=== PATIENT | female | born 1970 | race Caucasian/White ===

== ENCOUNTER 2017-07-28 11:43 | Emergency (ER) | payer OTHER ==
[2017-07-28] MEDS ORDERED: ONDANSETRON 4 MG/2 ML VIAL ONE ×2 (13:37→15:56)
[2017-07-28] MEDS ORDERED: IPRATROPIUM BROM 0.5MG/2.5ML ONE ×2 (13:37→15:56)
[2017-07-28] MEDS ORDERED: ALBUTEROL 2.5 MG/3 ML NEB SOL ONE ×2 (13:37→15:56)
[2017-07-28] MEDS ORDERED: NA CHLORIDE 0.9% 500 ML ONE (13:38)
[2017-07-28] MEDS ORDERED: FENTANYL CITR 100 MCG/2 ML ONE ×2 (14:24→15:58)
[2017-07-28 14:29] LABS: Absolute Lymphocytes (CBC) 1.7 K/uL (0.7-4.9); Absolute Monocytes 0.2 K/uL (0.1-1.3); Absolute Neutrophil 4.6 K/uL (1.8-8.0); Basophils % 0.8 % (0-1.3); Eosinophils % 3.8 % (0-4.4); Hematocrit 40.5 % (36.0-45.0); Lymphocytes % 24.8 % (15.3-44.8); MCH 29.4 pg (27.0-35.0); MPV 8.7 fL (7.6-11.3); Monocytes % 3.6 % (3.3-12.3); RBC Red Blood Cell Count 4.41 M/uL (3.86-4.86)
[2017-07-28 14:30] LABS: Potassium 3.9 mEq/L (3.6-5.0)
[2017-07-28 14:33] LABS: Magnesium 1.9 mg/dL (1.8-2.5)
--- NOTE | 2017-07-28 14:34 | RAD REPORT ---
EXAM DESCRIPTION: Andriy Single View07/28/2017 2:20 pm CLINICAL HISTORY: Cough COMPARISON: July 03 FINDINGS: A small to moderate hiatal hernia is present. The lungs appear clear of acute infiltrate. The heart is borderline enlarged IMPRESSION: No acute abnormalities displayed
[2017-07-28 14:37] LABS: Urine Blood NEGATIVE (NEG); Urine Glucose NEGATIVE (NEG); Urine Protein NEGATIVE (NEG); Urine Specific Gravity 1.015 (1.005-1.030); Urine pH 8.5 (5.0-7.0)
[2017-07-28 14:41] LABS: CKMB Creatine Kinase MB 1.3 ng/ml (0.3-4.0)
--- NOTE | 2017-07-28 15:21 | EKG ---
Test Date: 2017-07-28 Test Time: 12:06:43 Strainer Cleaner: ALFRED MEASUREMENT RESULTS: Intervals: Rate: 78 SD: 168 QRSD: 86 QT: 392 QTc: 446 [place]: P: 29 SD: 168 QRS: 6 T: 38 INTERPRETIVE STATEMENTS: Normal sinus rhythm normal ECG Compared to ECG 07/03/2017 21:17:11 Sinus bradycardia no longer present Electronically Signed On 07-28-17 15:21:05 CDT by Dwayne Thomas
--- NOTE | 2017-07-28 15:38 | ER ---
Nurse's Notes [facility] Name: Oleg Rosenberg Age: 47 yrs Sex: Female : 1970 Arrival Date: 07/28/2017 Time: 11:44 Bed 27 Private MD: Diagnosis: Unspecified asthma with (acute) exacerbation;Bronchitis, not specified as acute or chronic Presentation: 07/28 11:47 Presenting complaint: Patient states: SOB, productive cough with greenish sputum, pain hb with cough x 2 days. Transition of care: patient was not received from another setting of care. Onset of symptoms was July 27, 2017. Care prior to arrival: None. 11:47 Method Of Arrival: Ambulatory hb 11:47 Acuity: AAYUSH 3 hb Triage Assessment: 11:51 General: Appears in no apparent distress. Behavior is calm, cooperative. Pain: Pain hb currently is 5 out of 10 on a pain scale. Neuro: Level of Consciousness is awake, alert, obeys commands, Oriented to person, place, time, situation. Cardiovascular: Capillary refill < 3 seconds Patient's skin is warm and dry. Respiratory: Airway is patent Respiratory effort is even, mildly labored Respiratory pattern is regular, symmetrical. 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 LMP N/A - Hysterectomy lk1 Historical: - Allergies: 11:50 Aspirin; hb 11:50 Dilaudid; hb 11:50 Iodinated Contrast Media - IV Dye; hb 11:50 Iodine; hb 11:50 Morphine; hb 11:50 Mucinex; hb 11:50 NSAIDS; hb 11:50 PENICILLINS; hb 11:50 Demerol; hb - Home Meds: 11:50 albuterol sulfate 2.5 mg /3 mL (0.083 %) Inhl nebu 3 mL 4 times per day [Active]; hb Ambien 10 mg Oral tab nightly for Sleep-Onset Insomnia [Active]; Breo Ellipta 100-25 mcg/dose inhalation dsdv 1 puff once daily [Active]; diazepam 10 mg Oral tab 1 tab 4 times per day [Active]; Equetro 300 mg Oral CM12 1 cap 2 times per day [Active]; ProAir HFA 90 mcg/actuation inhalation HFAA 1 puff every 4-6 hours [Active]; Risperdal 2 mg Oral tab once daily [Active]; Xopenex Inhl [Active]; - PMHx: 11:50 Asthma; Depression; Bipolar disorder; kidney cancer; Bronchitis; hb - PSHx: 11:50 nephrectomy; Hysterectomy; lap bad followed by removal; left shoulder; hb - Immunization history:: Adult Immunizations up to date. - Social history:: Smoking status: Patient uses tobacco products, smokes one-half pack cigarettes per day. Screenin:35 Abuse screen: Denies threats or abuse. Denies injuries from another. Nutritional lk1 screening: No deficits noted. Tuberculosis screening: No symptoms or risk factors identified. Fall Risk Total Mark Fall Scale indicates High Risk Score (45 or more points). Fall prevention measures have been instituted. Side Rails Up X 2 Placed Close to Nursing Station Frequent Obs/Assessments Occuring As available patient and family educated on Fall Prevention Program and Strategies. Assessment: 13:00 General: Appears in no apparent distress. Behavior is calm, cooperative, appropriate lk1 for age. Pain: Complains of pain in chest Pain currently is 6 out of 10 on a pain scale. Pain: Aggravated by coughing. Neuro: Level of Consciousness is awake, alert, obeys commands, Oriented to person, place, time, situation, Moves all extremities. Full function Gait is steady, Speech is normal, Facial symmetry appears normal. Cardiovascular: Heart tones S1 S2 present Capillary refill < 3 seconds Patient's skin is warm and dry. Respiratory: Airway is patent Respiratory effort is even, unlabored, Respiratory pattern is symmetrical, tachypnea Breath sounds with wheezes in right upper lobe, left upper lobe, right middle lobe and left lower lobe. GI: Abdomen is non-distended, obese. EENT: No signs and/or symptoms were reported regarding the EENT system. 13:45 Reassessment: Patient states feeling better. Patient states symptoms have improved. lk1 Respiratory: Airway is patent Respiratory effort is even, unlabored, Respiratory pattern is regular, symmetrical, Breath sounds are clear bilaterally. 14:10 Reassessment: Patient to 97-100% nebulizer treatment and back to 88-92%. Patient states lk1 she wears home O2 \T\ 4lpm NC at home. Patient placed on O2 now. 14:45 Respiratory: Breath sounds with wheezes in right upper lobe and left upper lobe. lk1 15:40 Reassessment: Patient states feeling better. Patient states symptoms have improved. lk1 Respiratory: Airway is patent Respiratory effort is even, unlabored, Respiratory pattern is regular, symmetrical, Breath sounds are clear bilaterally. Vital Signs: 11:50 BP 144 / 96; Pulse 82; Resp 20; Temp 97.7; Pulse Ox 95% on R/A; Weight 170.55 kg (R); hb Height 5 ft. 3 in. (160.02 cm); Pain 5/10; 13:00 BP 128 / 78; Pulse 73; Resp 24; Pulse Ox 92% on R/A; lk1 13:45 BP 111 / 58; Pulse 78; Resp 18; Pulse Ox 91% on R/A; lk1 14:30 BP 107 / 78; Pulse 81; Resp 20; Pulse Ox 96% on 3 lpm NC; lk1 15:30 BP 126 / 84; Pulse 71; Resp 18; Pulse Ox 98% on Nebulizer Mask; lk1 11:50 Body Mass Index 66.60 (170.55 kg, 160.02 cm) hb ED Course: 11:44 Patient arrived in ED. as 11:48 Triage completed. hb 11:51 Arm band placed on right wrist. hb 11:52 Patient placed in waiting room, in a wheelchair, Patient notified of wait time. hb 11:56 Patient EKG ordered from triage. hb 12:07 EKG completed in triage. Results shown to MD. hb 12:16 EKG done, by audio visual tech. reviewed by Abhi Mccall MD. at1 12:49 Lisa Auguste FNP-C is [facility]. kb 12:50 Abhi Mccall MD is Attending Physician. kb 13:00 Patient has correct armband on for positive identification. Bed in low position. Call lk1 light in reach. Adult w/ patient. 13:16 Rosanna Bello, RN is Primary Nurse. lk1 13:50 Missed attempt(s): 22 gauge in right antecubital area. Bleeding controlled, band aid dh3 applied, catheter tip intact. 13:55 Inserted saline lock: 22 gauge in left antecubital area, using aseptic technique. Blood lk1 collected. 13:56 Urine collected: clean catch specimen, clear. dh3 14:00 Oxygen administration via nasal cannula \T\ 3L/min Response to oxygen therapy: symptoms lk1 improved. 14:17 X-ray completed. Portable x-ray completed in exam room. Patient tolerated procedure ml well. 14:18 Chest Single View In Process Unspecified. EDMS 16:08 No provider procedures requiring assistance completed. IV discontinued, No lk1 redness/swelling at site. Administered Medications: 13:20 Drug: DuoNeb (3:1) (2.5 mg - 0.5 mg) 3 ml Route: Nebulizer; lk1 13:45 Follow up: Response: No adverse reaction; Marked relief of symptoms; Wheezing diminishedlk1 13:55 Drug: Zofran 4 mg Route: IVP; Site: left antecubital; lk1 14:15 Follow up: Response: No adverse reaction; Marked relief of symptoms; Nausea is decreasedlk1 13:55 Drug: NS 0.9% 500 ml Route: IV; Rate: bolus; Site: left antecubital; lk1 14:30 Follow up: Response: No adverse reaction; IV Status: Completed infusion lk1 14:00 Drug: fentaNYL (PF) 25 mcg Route: IVP; Site: left antecubital; lk1 14:15 Follow up: Response: No adverse reaction; Pain is decreased lk1 15:41 Drug: Zofran 4 mg Route: IVP; Site: left antecubital; lk1 16:00 Follow up: Response: No adverse reaction; Nausea is decreased lk1 15:42 Drug: SOLU-Medrol 125 mg Route: IVP; Site: left antecubital; lk1 16:00 Follow up: Response: No adverse reaction lk1 15:43 Drug: fentaNYL (PF) 25 mcg Route: IVP; Site: left antecubital; lk1 16:00 Follow up: Response: No adverse reaction; Marked relief of symptoms; Pain is decreased lk1 15:45 Drug: DuoNeb (3:1) (2.5 mg - 0.5 mg) 3 ml Route: Nebulizer; lk1 16:15 Follow up: Response: No adverse reaction; Marked relief of symptoms; Wheezing diminishedlk1 Outcome: 15:38 Discharge ordered by . raya 16:10 Discharged to home ambulatory. lk1 16:10 Condition: good 16:10 Discharge instructions given to patient, Instructed on discharge instructions, follow up and referral plans. medication usage, safety practices, Demonstrated understanding of instructions, follow-up care, medications, Prescriptions given X 1. 16:49 Patient left the ED. lk1 Signatures: Dispatcher [employer] EDMS Lisa Auguste, HAND PRINTED CIRCUIT BOARD ASSEMBLER-C HAND PRINTED CIRCUIT BOARD ASSEMBLER-Ckb Claire Velasquez as Davion, Vero Lynn victor, weasand trimmer EKG Tat1 Rosanna Bello RN RN lk1 Clarita Foreman RN RN Hemanth, Paula 3 Corrections: (The following items were deleted from the chart) 12: 11:50 Social history: Smoking status: Patient uses tobacco products, denies chronic hb smoking, but will smoke occasionally, hb 12: 11:51 Respiratory: Airway is patent Respiratory effort is even, mildly labored hb Respiratory pattern is regular, symmetrical, hb
--- NOTE | 2017-07-28 15:39 | EDPHYS ---
Physician Documentation [facility] Name: Oleg Rosenberg Age: 47 yrs Sex: Female : 1970 Arrival Date: 07/28/2017 Time: 11:44 Bed 27 Private MD: Abhi Tucker HPI: 07/28 13:14 This 47 yrs old Female presents to ER via Ambulatory with complaints of kb Asthma Exacerbation. 13:14 The patient has shortness of breath at rest. Onset: The symptoms/episode began/occurred kb 3 day(s) ago. Duration: The symptoms are continuous. The patient's shortness of breath is aggravated by exertion, anxiety. Associated signs and symptoms: Pertinent positives: non-productive cough, vomiting. Severity of symptoms: At their worst the symptoms were moderate in the emergency department the symptoms are unchanged. The patient has experienced similar episodes in the past. The patient has been recently seen by a physician: a psychiatrist, earlier today, anxiety. Pt c/o shortness of breath, wheezing, cough, and anxiety for 3 days. Reports nausea and vomiting for a month. . 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 LMP N/A - Hysterectomy lk1 Historical: - Allergies: 11:50 Aspirin; hb 11:50 Dilaudid; hb 11:50 Iodinated Contrast Media - IV Dye; hb 11:50 Iodine; hb 11:50 Morphine; hb 11:50 Mucinex; hb 11:50 NSAIDS; hb 11:50 PENICILLINS; hb 11:50 Demerol; hb - Home Meds: 11:50 albuterol sulfate 2.5 mg /3 mL (0.083 %) Inhl nebu 3 mL 4 times per day [Active]; hb Ambien 10 mg Oral tab nightly for Sleep-Onset Insomnia [Active]; Breo Ellipta 100-25 mcg/dose inhalation dsdv 1 puff once daily [Active]; diazepam 10 mg Oral tab 1 tab 4 times per day [Active]; Equetro 300 mg Oral CM12 1 cap 2 times per day [Active]; ProAir HFA 90 mcg/actuation inhalation HFAA 1 puff every 4-6 hours [Active]; Risperdal 2 mg Oral tab once daily [Active]; Xopenex Inhl [Active]; - PMHx: 11:50 Asthma; Depression; Bipolar disorder; kidney cancer; Bronchitis; hb - PSHx: 11:50 nephrectomy; Hysterectomy; lap bad followed by removal; left shoulder; hb - Immunization history:: Adult Immunizations up to date. - Social history:: Smoking status: Patient uses tobacco products, smokes one-half pack cigarettes per day. ROS: 13:16 Constitutional: Negative for fever, chills, and weight loss, ENT: Negative for injury, kb pain, and discharge, Neck: Negative for injury, pain, and swelling, Cardiovascular: Negative for chest pain, palpitations, and edema, Back: Negative for injury and pain, : Negative for injury, bleeding, discharge, and swelling, MS/Extremity: Negative for injury and deformity, Skin: Negative for injury, rash, and discoloration, Neuro: Negative for headache, weakness, numbness, tingling, and seizure. 13:16 Respiratory: Positive for cough, with no reported sputum, shortness of breath, wheezing, Negative for dyspnea on exertion, hemoptysis, orthopnea, pleurisy. 13:16 Abdomen/GI: Positive for nausea and vomiting, Negative for abdominal pain, diarrhea, constipation, abdominal cramps, abdominal distension, anorexia. Exam: 13:16 Constitutional: This is a well developed, well nourished patient who is awake, alert, kb and in no acute distress. Head/Face: Normocephalic, atraumatic. Chest/axilla: Normal chest wall appearance and motion. Nontender with no deformity. No lesions are appreciated. Cardiovascular: Regular rate and rhythm with a normal S1 and S2. No gallops, murmurs, or rubs. Normal PMI, no JVD. No pulse deficits. Abdomen/GI: Soft, non-tender, with normal bowel sounds. No distension or tympany. No guarding or rebound. No evidence of tenderness throughout. Skin: Warm, dry with normal turgor. Normal color with no rashes, no lesions, and no evidence of cellulitis. MS/ Extremity: Pulses equal, no cyanosis. Neurovascular intact. Full, normal range of motion. Neuro: Awake and alert, GCS 15, oriented to person, place, time, and situation. Cranial nerves II-XII grossly intact. Motor strength 5/5 in all extremities. Sensory grossly intact. Cerebellar exam normal. Normal gait. 13:16 Respiratory: the patient does not display signs of respiratory distress, Respirations: normal, Breath sounds: rhonchi, that are mild, that are moderate, are scattered, wheezing: expiratory that is moderate, is heard diffusely. Vital Signs: 11:50 BP 144 / 96; Pulse 82; Resp 20; Temp 97.7; Pulse Ox 95% on R/A; Weight 170.55 kg (R); hb Height 5 ft. 3 in. (160.02 cm); Pain 5/10; 13:00 BP 128 / 78; Pulse 73; Resp 24; Pulse Ox 92% on R/A; lk1 13:45 BP 111 / 58; Pulse 78; Resp 18; Pulse Ox 91% on R/A; lk1 14:30 BP 107 / 78; Pulse 81; Resp 20; Pulse Ox 96% on 3 lpm NC; lk1 15:30 BP 126 / 84; Pulse 71; Resp 18; Pulse Ox 98% on Nebulizer Mask; lk1 11:50 Body Mass Index 66.60 (170.55 kg, 160.02 cm) hb MDM: 12:50 Patient medically screened. kb 13:17 Data reviewed: vital signs, nurses notes. Data interpreted: Pulse oximetry: on room air kb is 95 %. Interpretation: normal. 15:37 Counseling: I had a detailed discussion with the patient and/or guardian regarding: the kb historical points, exam findings, and any diagnostic results supporting the discharge/admit diagnosis, lab results, radiology results, the need for outpatient follow up, a family practitioner, to return to the emergency department if symptoms worsen or persist or if there are any questions or concerns that arise at home. 07/28 14:03 Order name: Basic Metabolic Panel; Complete Time: 14:47 EDMS 07/28 14:03 Order name: BNP B-Type Natriuretic Peptide; Complete Time: 14:47 EDMS 07/28 14:03 Order name: CBC with Automated Diff; Complete Time: 14:38 EDMS 07/28 14:03 Order name: CKMB Creatine Kinase MB; Complete Time: 14:47 EDMS 07/28 14:03 Order name: Creatine Phosphokinase; Complete Time: 14:47 EDMS 07/28 14:03 Order name: Magnesium; Complete Time: 14:47 EDMS 07/28 14:03 Order name: Troponin (Emerg Dept Use Only); Complete Time: 14:38 EDMS 07/28 11:57 Order name: EKG - Nurse/Tech; Complete Time: 12:07 hb 07/28 11:57 Order name: EKG; Complete Time: 11:58 hb 07/28 13:12 Order name: Cardiac monitoring; Complete Time: 13:32 kb 07/28 13:12 Order name: IV Saline Lock; Complete Time: 16:16 kb 07/28 14:05 Order name: Chest Single View; Complete Time: 14:38 EDMS 07/28 14:14 Order name: Urine Dipstick-Ancillary; Complete Time: 14:38 EDMS 07/28 14:14 Order name: Urine --Ancillary; Complete Time: 14:38 EDMS 07/28 13:12 Order name: Labs collected and sent; Complete Time: 16:16 kb 07/28 13:12 Order name: O2 Per Protocol; Complete Time: 13:57 kb 07/28 13:12 Order name: O2 Sat Monitoring; Complete Time: 13:58 kb 07/28 13:12 Order name: Urine Dipstick-Ancillary (obtain specimen); Complete Time: 13:57 kb Administered Medications: 13:20 Drug: DuoNeb (3:1) (2.5 mg - 0.5 mg) 3 ml Route: Nebulizer; lk1 13:45 Follow up: Response: No adverse reaction; Marked relief of symptoms; Wheezing diminishedlk1 13:55 Drug: Zofran 4 mg Route: IVP; Site: left antecubital; lk1 14:15 Follow up: Response: No adverse reaction; Marked relief of symptoms; Nausea is decreasedlk1 13:55 Drug: NS 0.9% 500 ml Route: IV; Rate: bolus; Site: left antecubital; lk1 14:30 Follow up: Response: No adverse reaction; IV Status: Completed infusion lk1 14:00 Drug: fentaNYL (PF) 25 mcg Route: IVP; Site: left antecubital; lk1 14:15 Follow up: Response: No adverse reaction; Pain is decreased lk1 15:41 Drug: Zofran 4 mg Route: IVP; Site: left antecubital; lk1 16:00 Follow up: Response: No adverse reaction; Nausea is decreased lk1 15:42 Drug: SOLU-Medrol 125 mg Route: IVP; Site: left antecubital; lk1 16:00 Follow up: Response: No adverse reaction lk1 15:43 Drug: fentaNYL (PF) 25 mcg Route: IVP; Site: left antecubital; lk1 16:00 Follow up: Response: No adverse reaction; Marked relief of symptoms; Pain is decreased lk1 15:45 Drug: DuoNeb (3:1) (2.5 mg - 0.5 mg) 3 ml Route: Nebulizer; lk1 16:15 Follow up: Response: No adverse reaction; Marked relief of symptoms; Wheezing diminishedlk1 Disposition: 07/29 06:53 Co-signature as Attending Physician, Abhi Mccall MD I agree with the assessment and marnie plan of care. PA/CASE ASSEMBLER's history reviewed, patient interviewed, and examined. Disposition: 07/28/17 15:38 Discharged to Home. Impression: Unspecified asthma with (acute) exacerbation, Bronchitis, not specified as acute or chronic. - Condition is Stable. - Discharge Instructions: Acute Bronchitis, [id number], Asthma, Adult, [id number]. - Prescriptions for Prednisone 20 mg Oral Tablet - take 1 tablet by ORAL route once daily for 5 days; 5 tablet. - Medication Reconciliation Form, Thank You Letter, Antibiotic Education, Prescription Opioid Use form. - Follow up: Emergency Department; When: As needed; Reason: Worsening of condition. Follow up: Private Physician; When: 2 - 3 days; Reason: Recheck today's complaints, Continuance of care, Re-evaluation by your physician. Signatures: Dispatcher [employer] EDLisa Balbuena, AUTOMOBILE PARKER-C NEGRO-Abhi Horvath MD MD cha Kluge, Leah RN RN lk1 Clarita Foreman RN RN hb Corrections: (The following items were deleted from the chart) 07/28 12:06 11:50 Social history: Smoking status: Patient uses tobacco products, denies chronic hb smoking, but will smoke occasionally, hb 16:07 16:03 Chest Pa And Lat (2 Views)+RAD.RAD.BRZ ordered. EDMS EDMS 16:19 16:03 BASIC METABOLIC PANEL+C.LAB.BRZ ordered. EDMS EDMS 16:19 16:03 CBC+H.LAB.BRZ ordered. EDMS EDMS 16:19 16:03 CKMB+C.LAB.BRZ ordered. EDMS EDMS 16:19 16:03 CREATINE PHOSPHOKINASE+C.LAB.BRZ ordered. EDMS EDMS 16: 16:03 MAGNESIUM+C.LAB.BRZ ordered. EDMS EDMS 16: 16:03 BNP+C.LAB.BRZ ordered. EDMS EDMS 16: 16:03 TROPONIN (EMERG DEPT USE ONLY)+C.LAB.BRZ ordered. EDMS EDMS
[2017-07-28] MEDS ORDERED: METHYLPREDNISOLONE 125 MG INJ ONE (15:56)
[2017-07-28 17:03] VITALS: TEMP 97.7
[2017-07-28 17:06] VITALS: BP 126/84; O2SAT 98
== END 2017-07-28 16:49 | disposition home or self-care (01) ==
LOC: ER 11:43
DX: J45.901 Unspecified asthma with (acute) exacerbation (principal); F17.210 Nicotine dependence, cigarettes, uncomplicated; F31.9 Bipolar disorder, unspecified; Z88.0 Allergy status to penicillin; Z88.5 Allergy status to narcotic agent; Z88.6 Allergy status to analgesic agent; Z88.8 Allergy status to other drugs, medicaments and biological substances; Z91.041 Radiographic dye allergy status; Z91.048 Other nonmedicinal substance allergy status; Z85.528 Personal history of other malignant neoplasm of kidney
CPT/HCPCS: 36415; 71045; 80048; 81003; 81025; 82550; 82553; 83735; 83880; 84484; 85025; 93005; 94640; 96361; 96374; 96375; 99285; J2405; J2930; J3010

== ENCOUNTER 2017-08-04 09:44 | Day surgery (SDC) | payer OTHER ==
[2017-08-04 10:37] VITALS: TEMP 97.2
[2017-08-04] MEDS ORDERED: NA CHLORIDE 0.9% 1,000 ML ONE (10:40)
[2017-08-04] MEDS ORDERED: LIDOCAINE 1% MPF 5 ML VIAL ONE (11:22)
[2017-08-04] MEDS ORDERED: PROPOFOL 200 MG/20 ML VIAL IV ONE ×2 (11:22→11:51)
--- NOTE | 2017-08-04 11:39 | ENDO RPT ---
[address], [address] EGD PROCEDURE REPORT EXAM DATE: 08/04/2017 PATIENT NAME: Oleg Rosenberg MR#: [id number] BIRTHDATE: 1970 ATTENDING: Nicola Simpson Dr STATUS: outpatient [employer] DELIVERY CONSULTANT: Mahsa Brennan and Mercedes Rodriguez RN INDICATIONS: The patient is a 47 yr old Female here for an EGD due to right upper quadrant abdominal pain, left upper quadrant abdominal pain, mid epigastric abdominal pain, nausea and vomiting, bloating, belching, and chronic unexplained diarrhea PROCEDURE PERFORMED: EGD with biopsy MEDICATIONS: Per Anesthesia. TOPICAL ANESTHETIC: none CONSENT: The patient understands the risks and benefits of the procedure and understands that these risks include, but are not limited to: sedation, allergic reaction, infection, perforation and/or bleeding. Alternative means of evaluation and treatment include, among others: physical exam, x-rays, and/or surgical intervention. The patient elects to proceed with this endoscopic procedure. DESCRIPTION OF PROCEDURE: During intra-op preparation period all mechanical medical equipment was checked for proper function. Hand hygiene and appropriate measures for infection prevention was taken. Procedure, possible complications, and alternatives including but not limited to the possibility of bleeding, perforation, tear, infection, sepsis, need for surgery, need for blood transfusion, and anesthesia related complications were explained to the patient. After the risks, benefits and alternatives of the procedure were thoroughly explained, Informed consent was verified, confirmed and timeout was successfully executed by the treatment team. The patient was placed in the left lateral position. The patient was anesthetized with topical anesthesia. Through the anesthetized oropharyngeal area, the scope was passed without any difficulty. The EG-[id number] ([id number]) and Pentax EG-[id number] ([id number]) endoscope was introduced through the mouth and advanced to the second portion of the duodenum. limited due to retained food and patient coughing. The gastroscope was then slowly withdrawn and removed. A stricture was found in the body of the stomach. A collection of food debris was found in the body of the stomach. Mild gastritis was found in the antrum. Multiple biopsies were obtained and sent to pathology. ADVERSE EVENTS: There were no complications. IMPRESSIONS: 1. Mild stricture versus GE junction with large hiatal hernia (limited assessment time due retained food and patient coughing) in the proximal body of the stomach, probably where prior removed lap band located, easily passed by endoscope 2. Large amount of retained solid food above mild stricture, and mainly green liquid bile > retained solid food below mild stricture in the proximal body of the stomach 3. Mild gastritis in the antrum, s/p biopsies RECOMMENDATIONS: 1. await biopsy results 2. gastric emptying study REPEAT EXAM: Nicola Simpson Dr eSigned: Nicola Simpson Dr 08/04/2017 11:38 AM cc: Hamilton Hutton CPT CODES: ICD9 CODES: PATIENT NAME: Oleg Rosenberg MR#: [id number]
[2017-08-04] MEDS ORDERED: PROMETHAZINE HCL 50 MG/ML AMP IM ONE (11:55)
[2017-08-04] MEDS ORDERED: MEPERIDINE HCL 25 MG/0.5 ML IV ONE (12:01)
[2017-08-04] MEDS ORDERED: PROMETHAZINE 25 MG/ML VIAL ONE (12:04)
[2017-08-04] MEDS ORDERED: MEPERIDINE HCL 25 MG/0.5 ML ONE (12:05)
[2017-08-04] MEDS ORDERED: MEPERIDINE HCL 50 MG/ML AMP IV ONE (12:15)
[2017-08-04] MEDS ORDERED: MEPERIDINE HCL 50 MG/ML AMP ONE (12:30)
[2017-08-04 12:51] VITALS: O2SAT 100
[2017-08-04 12:52] VITALS: BP 120/79
== END 2017-08-04 12:27 | disposition home or self-care (01) ==
LOC: ENDO 09:44
PROVIDERS: ATTEND Internal Medicine Gastroenterology
PROC: 0DB68ZX Excision of Stomach, Via Natural or Artificial Opening Endoscopic, Diagnostic (ICD-10-PCS; principal; 2017-08-04 11:00)
DX: K29.50 Unspecified chronic gastritis without bleeding (principal); E66.01 Morbid (severe) obesity due to excess calories; F17.200 Nicotine dependence, unspecified, uncomplicated; Z88.0 Allergy status to penicillin; Z88.6 Allergy status to analgesic agent; Z88.8 Allergy status to other drugs, medicaments and biological substances; Z91.041 Radiographic dye allergy status; Z85.53 Personal history of malignant neoplasm of renal pelvis; Z90.5 Acquired absence of kidney; Z90.710 Acquired absence of both cervix and uterus; Z80.0 Family history of malignant neoplasm of digestive organs
CPT/HCPCS: 88305; 88312; J2175; J2550; J7030

== ENCOUNTER 2017-08-24 15:51 | Emergency (ER) | payer OTHER ==
[2017-08-24] MEDS ORDERED: FENTANYL CITR 100 MCG/2 ML ONE (16:39)
[2017-08-24] MEDS ORDERED: PROMETHAZINE 25 MG/ML VIAL ONE (16:39)
[2017-08-24] MEDS ORDERED: NA CHLORIDE 0.9% 1,000 ML ONE (16:39)
[2017-08-24 16:46] LABS: Absolute Lymphocytes (CBC) 1.7 K/uL (0.7-4.9); Absolute Monocytes 0.4 K/uL (0.1-1.3); Basophils % 0.6 % (0-1.3); Eosinophils % 1.4 % (0-4.4); Hematocrit 37.1 % (36.0-45.0); Lymphocytes % 20.2 % (15.3-44.8); MCH 30.2 pg (27.0-35.0); MCV 91.7 fL (80-100); MPV 8.8 fL (7.6-11.3); Monocytes % 4.5 % (3.3-12.3); RBC Red Blood Cell Count 4.05 M/uL (3.86-4.86)
[2017-08-24 17:00] LABS: Potassium 4.2 mEq/L (3.6-5.0)
[2017-08-24 17:06] LABS: Albumin 3.4 g/dL (3.2-5.5); Bilirubin Direct 0.1 mg/dL (0-0.2); Bilirubin Total 0.2 mg/dL (0.3-1.2); Protein, Total 6.4 g/dL (6.0-8.3)
[2017-08-24 17:34] LABS: Urine Bacteria <20 /HPF (<20); Urine Culture Reflex Order NOT NEEDED; Urine RBC NONE SEEN /HPF (NONE SEEN)
[2017-08-24 18:07] LABS: Urine Blood NEGATIVE (NEG); Urine Glucose NEGATIVE (NEG); Urine Protein NEGATIVE (NEG); Urine Specific Gravity 1.015 (1.005-1.030)
--- NOTE | 2017-08-24 18:30 | RAD REPORT ---
EXAM DESCRIPTION: CT - Abdomen Pelvis Wo Contrast - 08/24/2017 6:25 pm CLINICAL HISTORY: Abdominal pain. COMPARISON: 07/04/2017 TECHNIQUE: CT imaging of the abdomen and pelvis was performed without contrast. Solid organ and vasc ular assessment is limited due to lack of IV contrast. All CT scans are performed using dose optimization technique as appropriate and may include automated exposure control or mA/KV adjustment according to patient size. FINDINGS: The lower lung tate are clear.Moderate axial hiatal hernia is seen. The liver, spleen, pancreas, adrenal glands and right kidney are within normal limits for a limited n on-contrast examination. No bowel obstruction, free air, free fluid or abscess. The appendix is normal. The osseous structures are within normal limits. IMPRESSION: No acute intra-abdominal or pelvic findings. A limited non-contrast examination was performed as detailed.
--- NOTE | 2017-08-24 18:45 | EDPHYS ---
Physician Documentation [facility] Name: Oleg Rosenberg Age: 47 yrs Sex: Female : 1970 Arrival Date: 08/24/2017 Time: 15:52 Bed 17 Private MD: ED Physician Ihsan Song HPI: 08/24 18:00 This 47 yrs old Female presents to ER via Ambulatory with complaints of pm1 Abdominal Pain. 18:00 The patient presents with abdominal pain in the epigastric area. Onset: The pm1 symptoms/episode began/occurred 1 month(s) ago. The symptoms do not radiate. Associated signs and symptoms: Pertinent positives: nausea and vomiting, Pertinent negatives: diarrhea, dysuria, fever. The symptoms are described as achy, constant. Modifying factors: The symptoms are alleviated by nothing, the symptoms are aggravated by food. Severity of pain: in the emergency department the pain is actually worse. The patient has been recently seen by a physician: Dr. Simpson 1 week(s) ago, with similar presenting complaints, performed EGD, Has a test ordered by Dr. Simpson for Wednesday. 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 tw2 Historical: - Allergies: 15:55 Aspirin; tw2 15:55 Demerol; tw2 15:55 Dilaudid; tw2 15:55 Iodinated Contrast Media - IV Dye; tw2 15:55 Iodine; tw2 15:55 Morphine; tw2 15:55 Mucinex; tw2 15:55 NSAIDS; tw2 15:55 PENICILLINS; tw2 - Home Meds: 15:55 Xopenex Inhl [Active]; Risperdal 2 mg Oral tab once daily [Active]; ProAir HFA 90 tw2 mcg/actuation inhalation HFAA 1 puff every 4-6 hours [Active]; Ambien 10 mg Oral tab nightly for Sleep-Onset Insomnia [Active]; albuterol sulfate 2.5 mg /3 mL (0.083 %) Inhl nebu 3 mL 4 times per day [Active]; Breo Ellipta 100-25 mcg/dose inhalation dsdv 1 puff once daily [Active]; diazepam 10 mg Oral tab 1 tab 4 times per day [Active]; Equetro 300 mg Oral CM12 1 cap 2 times per day [Active]; - PMHx: 15:55 Asthma; Bipolar disorder; Bronchitis; Depression; kidney cancer; tw2 - PSHx: 15:55 nephrectomy; Hysterectomy; lap bad followed by removal; left shoulder; tw2 - Immunization history:: Adult Immunizations up to date. - Social history:: Smoking status: Patient uses tobacco products, smokes one-half pack cigarettes per day. ROS: 18:00 Constitutional: Negative for fever, chills, and weight loss, Eyes: Negative for injury, pm1 pain, redness, and discharge, ENT: Negative for injury, pain, and discharge, Neck: Negative for injury, pain, and swelling, Cardiovascular: Negative for chest pain, palpitations, and edema, Respiratory: Negative for shortness of breath, cough, wheezing, and pleuritic chest pain. 18:00 Back: Negative for injury and pain, : Negative for injury, bleeding, discharge, and swelling, MS/Extremity: Negative for injury and deformity, Skin: Negative for injury, rash, and discoloration, Neuro: Negative for headache, weakness, numbness, tingling, and seizure. 18:00 Abdomen/GI: Positive for abdominal pain, nausea and vomiting, Negative for diarrhea, constipation. Exam: 18:00 Constitutional: This is a well developed, well nourished patient who is awake, alert, pm1 and in no acute distress. Head/Face: Normocephalic, atraumatic. Eyes: Pupils equal round and reactive to light, extra-ocular motions intact. Lids and lashes normal. Conjunctiva and sclera are non-icteric and not injected. Cornea within normal limits. Periorbital areas with no swelling, redness, or edema. ENT: Nares patent. No nasal discharge, no septal abnormalities noted. Tympanic membranes are normal and external auditory canals are clear. Oropharynx with no redness, swelling, or masses, exudates, or evidence of obstruction, uvula midline. Mucous membranes moist. Neck: Trachea midline, no thyromegaly or masses palpated, and no cervical lymphadenopathy. Supple, full range of motion without nuchal rigidity, or vertebral point tenderness. No Meningismus. Chest/axilla: Normal chest wall appearance and motion. Nontender with no deformity. No lesions are appreciated. Cardiovascular: Regular rate and rhythm with a normal S1 and S2. No gallops, murmurs, or rubs. Normal PMI, no JVD. No pulse deficits. Respiratory: Lungs have equal breath sounds bilaterally, clear to auscultation and percussion. No rales, rhonchi or wheezes noted. No increased work of breathing, no retractions or nasal flaring. 18:00 Back: No spinal tenderness. No costovertebral tenderness. Full range of motion. Skin: Warm, dry with normal turgor. Normal color with no rashes, no lesions, and no evidence of cellulitis. MS/ Extremity: Pulses equal, no cyanosis. Neurovascular intact. Full, normal range of motion. 18:00 Abdomen/GI: Inspection: abdomen appears normal, Bowel sounds: normal, Palpation: soft, mild abdominal tenderness, in the right upper quadrant, mass, is not appreciated, rebound tenderness, is not appreciated. 18:00 Neuro: Orientation: is normal, Motor: is normal, moves all fours. Vital Signs: 15:57 BP 122 / 84; Pulse 82; Resp 19; Temp 98(TE); Pulse Ox 97% on R/A; Weight 165.11 kg (R); tw2 Height 5 ft. 3 in. (160.02 cm) (R); Pain 10/10; 17:16 BP 125 / 76; Pulse 85; Resp 18; Pulse Ox 100% on R/A; hj 18:16 BP 128 / 74; Pulse 80; Resp 18; Pulse Ox 100% on 2 lpm NC; hj 15:57 Body Mass Index 64.48 (165.11 kg, 160.02 cm) tw2 MDM: 16:11 Patient medically screened. pm1 18:44 Data reviewed: vital signs. Data interpreted: Pulse oximetry: on room air is 100 %. pm1 Interpretation: normal. 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 08/24 16:16 Order name: Amylase, Serum; Complete Time: 17:15 pm1 08/24 16:16 Order name: Basic Metabolic Panel; Complete Time: 17:15 pm1 08/24 16:16 Order name: CBC with Diff; Complete Time: 17:06 pm1 08/24 16:16 Order name: Creatinine for Radiology; Complete Time: 17:06 pm1 08/24 16:16 Order name: Hepatic Function; Complete Time: 17:15 pm1 08/24 16:16 Order name: Lipase; Complete Time: 17:15 pm1 08/24 16:16 Order name: Urine Microscopic Only; Complete Time: 17:37 pm1 08/24 16:34 Order name: Abdomen ; Complete Time: 18:43 EDMS 08/24 17:50 Order name: Urine Dipstick--Ancillary (enter results); Complete Time: 18:14 mw2 08/24 17:50 Order name: Urine --Ancillary (enter results); Complete Time: 18:14 mw2 08/24 16:16 Order name: Urine Test (obtain specimen); Complete Time: 16:36 pm1 08/24 16:16 Order name: IV Saline Lock; Complete Time: 16:36 pm1 08/24 16:16 Order name: Labs collected and sent; Complete Time: 16:36 pm1 08/24 16:16 Order name: Urine Dipstick-Ancillary (obtain specimen); Complete Time: 16:36 pm1 Administered Medications: 16:36 Drug: Phenergan 12.5 mg Route: IVP; Site: left antecubital; hj 16:48 Follow up: Response: No adverse reaction hj 16:36 Drug: NS 0.9% 1000 ml Route: IV; Rate: 1000 ml; Site: left antecubital; hj 18:58 Follow up: IV Status: Completed infusion hj 16:36 Drug: fentaNYL (PF) 50 mcg Route: IVP; Site: left antecubital; hj 16:49 Follow up: Response: No adverse reaction hj 18:50 Drug: fentaNYL (PF) 50 mcg Route: IM; Site: right deltoid; hj 18:58 Follow up: Response: No adverse reaction hj 18:50 Drug: Phenergan 12.5 mg Route: IM; Site: left deltoid; hj 18:58 Follow up: Response: No adverse reaction hj Disposition: 08/25 07:05 Co-signature as Attending Physician, Ihsan Song MD. rn Disposition: 08/24/17 18:44 Discharged to Home. Impression: Unspecified abdominal pain. - Condition is Stable. - Discharge Instructions: Abdominal Pain, Adult. - Prescriptions for promethazine 25 mg Oral Tablet - take 1 tablet by ORAL route every 6 hours As needed; 20 tablet. Tramadol 50 mg Oral Tablet - take 1 tablet by ORAL route every 8 hours as needed; 12 tablet. - Medication Reconciliation Form, Thank You Letter, Prescription Opioid Use form. - Follow up: Nicola Simpson MD; When: 2 - 3 days; Reason: Recheck today's complaints, Continuance of care, Re-evaluation by your physician. - Problem is new. - Symptoms have improved. Signatures: Dispatcher [employer] EDMS Kanwal Mora, RN RN dm5 Ihsan Song MD MD rn Joaquin, Henry RN Santos Dominguez, JANINE SEAL DELIVERY VEHICLE OFFICER pm1 Kiya Galan RN RN tw2 Corrections: (The following items were deleted from the chart) 08/24 16:34 16:24 Abdomen Pelvis W Con+CT.RAD.BRZ ordered. EDAZ EDMS
--- NOTE | 2017-08-24 18:45 | ER ---
Nurse's Notes [facility] Name: Oleg Rosenberg Age: 47 yrs Sex: Female : 1970 Arrival Date: 08/24/2017 Time: 15:52 Bed 17 Private MD: Diagnosis: Unspecified abdominal pain Presentation: 08/24 15:55 Presenting complaint: Patient states: my stomach hurts and i am so nauseous, dr. sweat tw2 is my dr and it hurts so bad. Transition of care: patient was not received from another setting of care. Onset of symptoms was August 24, 2017. Initial Sepsis Screen: Does the patient meet any 2 criteria? No. Patient's initial sepsis screen is negative. Does the patient have a suspected source of infection? No. Patient's initial sepsis screen is negative. Care prior to arrival: None. 15:55 Method Of Arrival: Ambulatory tw2 15:55 Acuity: AAYUSH 3 tw2 Triage Assessment: 16:06 General: Appears in no apparent distress. uncomfortable, Behavior is calm, cooperative, hj appropriate for age. Pain: Complains of pain in abdomen. GI: Reports lower abdominal pain, upper abdominal pain. 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 tw2 Historical: - Allergies: 15:55 Aspirin; tw2 15:55 Demerol; tw2 15:55 Dilaudid; tw2 15:55 Iodinated Contrast Media - IV Dye; tw2 15:55 Iodine; tw2 15:55 Morphine; tw2 15:55 Mucinex; tw2 15:55 NSAIDS; tw2 15:55 PENICILLINS; tw2 - Home Meds: 15:55 Xopenex Inhl [Active]; Risperdal 2 mg Oral tab once daily [Active]; ProAir HFA 90 tw2 mcg/actuation inhalation HFAA 1 puff every 4-6 hours [Active]; Ambien 10 mg Oral tab nightly for Sleep-Onset Insomnia [Active]; albuterol sulfate 2.5 mg /3 mL (0.083 %) Inhl nebu 3 mL 4 times per day [Active]; Breo Ellipta 100-25 mcg/dose inhalation dsdv 1 puff once daily [Active]; diazepam 10 mg Oral tab 1 tab 4 times per day [Active]; Equetro 300 mg Oral CM12 1 cap 2 times per day [Active]; - PMHx: 15:55 Asthma; Bipolar disorder; Bronchitis; Depression; kidney cancer; tw2 - PSHx: 15:55 nephrectomy; Hysterectomy; lap bad followed by removal; left shoulder; tw2 - Immunization history:: Adult Immunizations up to date. - Social history:: Smoking status: Patient uses tobacco products, smokes one-half pack cigarettes per day. Screenin:06 Abuse screen: Denies threats or abuse. Denies injuries from another. Nutritional hj screening: No deficits noted. Tuberculosis screening: No symptoms or risk factors identified. Fall Risk None identified. Assessment: 16:07 GI: Bowel sounds present X 4 quads. Abd is soft. hj 16:07 General: Appears in no apparent distress. uncomfortable, obese, Behavior is calm, hj cooperative, appropriate for age. Pain: Complains of pain in abdomen. Neuro: Level of Consciousness is awake, alert, obeys commands, Oriented to person, place, time, situation, Appropriate for age. Cardiovascular: Capillary refill < 3 seconds Patient's skin is warm and dry. Respiratory: Airway is patent Respiratory effort is even, unlabored, Respiratory pattern is regular, symmetrical. : No signs and/or symptoms were reported regarding the genitourinary system. EENT: No signs and/or symptoms were reported regarding the EENT system. Derm: No signs and/or symptoms reported regarding the dermatologic system. Musculoskeletal: No signs and/or symptoms reported regarding the musculoskeletal system. 17:16 Reassessment: Patient and/or family updated on plan of care and expected duration. Pain hj level reassessed. Patient is alert, oriented x 3, equal unlabored respirations, skin warm/dry/pink. complaining of abd pain; provider informed;. 18:15 Reassessment: Patient and/or family updated on plan of care and expected duration. Pain hj level reassessed. Patient is alert, oriented x 3, equal unlabored respirations, skin warm/dry/pink. wheeled to CT;. Vital Signs: 15:57 BP 122 / 84; Pulse 82; Resp 19; Temp 98(TE); Pulse Ox 97% on R/A; Weight 165.11 kg (R); tw2 Height 5 ft. 3 in. (160.02 cm) (R); Pain 10/10; 17:16 BP 125 / 76; Pulse 85; Resp 18; Pulse Ox 100% on R/A; hj 18:16 BP 128 / 74; Pulse 80; Resp 18; Pulse Ox 100% on 2 lpm NC; hj 15:57 Body Mass Index 64.48 (165.11 kg, 160.02 cm) tw2 ED Course: 15:52 Patient arrived in ED. tw3 15:54 Arm band placed on. tw2 15:57 Triage completed. tw2 16:05 Christo Mcgill, HARDIK is Primary Nurse. hj 16:07 Patient has correct armband on for positive identification. Placed in gown. Bed in low hj position. Call light in reach. Side rails up X 1. 16:11 Santos Fierro NP is PHCP. pm1 16:11 Ihsan Song MD is Attending Physician. pm1 16:28 Warm blanket given. mh5 16:28 Urine collected: clean catch specimen, clear. mh5 16:28 Maintain EMS IV. Dressing intact. Good blood return noted. Site clean \T\ dry. Gauge \T\ hj site: 18 R AC. 16:28 Initial lab(s) drawn, by me, sent to lab. hj 16:[address] that patient has completed her contrast. jl7 18:25 Abdomen In Process Unspecified. EDMS 18:44 Nicola Simpson MD is Referral Physician. pm1 18:58 No provider procedures requiring assistance completed. IV discontinued, intact, hj bleeding controlled, No redness/swelling at site. Pressure dressing applied. Administered Medications: 16:36 Drug: Phenergan 12.5 mg Route: IVP; Site: left antecubital; hj 16:48 Follow up: Response: No adverse reaction hj 16:36 Drug: NS 0.9% 1000 ml Route: IV; Rate: 1000 ml; Site: left antecubital; hj 18:58 Follow up: IV Status: Completed infusion hj 16:36 Drug: fentaNYL (PF) 50 mcg Route: IVP; Site: left antecubital; hj 16:49 Follow up: Response: No adverse reaction hj 18:50 Drug: fentaNYL (PF) 50 mcg Route: IM; Site: right deltoid; hj 18:58 Follow up: Response: No adverse reaction hj 18:50 Drug: Phenergan 12.5 mg Route: IM; Site: left deltoid; hj 18:58 Follow up: Response: No adverse reaction Outcome: 18:44 Discharge ordered by . pm1 18:59 Discharged to home ambulatory. hj 18:59 Condition: stable 18:59 Discharge instructions given to patient, Instructed on discharge instructions, follow up and referral plans. medication usage, Demonstrated understanding of instructions, follow-up care, medications, Prescriptions given X 2. 18:59 Patient left the ED. Signatures: Dispatcher [employer] EDMS Christo Mcgill RN RN Santos Fierro, JANINE VICE PRESIDENT NETWORK pm1 Kiya Galan RN RN tw2 Lizbeth Velasquez 5 Sofiya Friedman RN RN jl7 Gauri Joe tw3
[2017-08-24 19:06] VITALS: TEMP 98
[2017-08-24 19:07] VITALS: O2SAT 100
[2017-08-24 19:08] VITALS: BP 128/74
== END 2017-08-24 18:59 | disposition home or self-care (01) ==
LOC: ER 15:51
DX: R10.13 Epigastric pain (principal); Z85.528 Personal history of other malignant neoplasm of kidney; F31.9 Bipolar disorder, unspecified; J45.909 Unspecified asthma, uncomplicated; F17.210 Nicotine dependence, cigarettes, uncomplicated; Z88.0 Allergy status to penicillin; Z88.5 Allergy status to narcotic agent; Z88.6 Allergy status to analgesic agent; Z88.8 Allergy status to other drugs, medicaments and biological substances; Z91.048 Other nonmedicinal substance allergy status
CPT/HCPCS: 36415; 74176; 80048; 80076; 81003; 81015; 81025; 82150; 83690; 85025; 96361; 96372; 96374; 96375; 99284; J2550; J3010; J7030

== ENCOUNTER 2017-08-27 13:08 | Emergency (ER) | payer OTHER ==
[2017-08-27] MEDS ORDERED: LEVALBUTEROL 0.63 MG/3 ML NEB ONE (13:31)
[2017-08-27] MEDS ORDERED: NA CHLORIDE 0.9% 500 ML ONE (14:06)
[2017-08-27] MEDS ORDERED: ONDANSETRON 4 MG/2 ML VIAL ONE ×2 (14:06→15:20)
[2017-08-27] MEDS ORDERED: METHYLPREDNISOLONE 125 MG INJ ONE (14:06)
[2017-08-27 14:27] LABS: Urine Blood NEGATIVE (NEG); Urine Glucose NEGATIVE (NEG); Urine Protein NEGATIVE (NEG); Urine pH 8.5 (5.0-7.0)
[2017-08-27] MEDS ORDERED: FENTANYL CITR 100 MCG/2 ML ONE (14:31)
--- NOTE | 2017-08-27 15:22 | RAD REPORT ---
EXAM DESCRIPTION: RAD - Chest Single View - 08/27/2017 2:22 pm CLINICAL HISTORY: Cough, dyspnea COMPARISON: July 28 TECHNIQUE: AP portable chest image was obtained 1414 hours . FINDINGS: No peripheral mass, consolidation or diffuse pulmonary edema. Prominence of the interstiti al markings has not changed. Heart size is upper normal to slightly enlarged. Again, no interval milian ge. No acute vascular engorgement. No measurable pleural effusion and no pneumothorax. No gross bony abnormality seen. No acute aortic findings suspected. IMPRESSION: No acute cardiopulmonary process. Interstitial markings are prominent but stable. No significant interval change.
--- NOTE | 2017-08-27 15:44 | ER ---
Nurse's Notes [facility] Name: Oleg Rosenberg Age: 47 yrs Sex: Female : 1970 Arrival Date: 08/27/2017 Time: 13:09 Bed 2 Private MD: Diagnosis: Acute COPD/Asthma exacerbation Presentation: 08/27 13:09 Presenting complaint: EMS states: SOB starting last night, on home 02, tried breathing la1 tx at home. PT presents with wheezing to all tate. Transition of care: patient was not received from another setting of care. Onset of symptoms was August 27, 2017. Initial Sepsis Screen: Does the patient meet any 2 criteria? No. Patient's initial sepsis screen is negative. Does the patient have a suspected source of infection? No. Patient's initial sepsis screen is negative. Care prior to arrival: None. 13:09 Method Of Arrival: EMS: [facility] la1 13:09 Acuity: AAYUHS 3 la1 Triage Assessment: 13:36 General: Appears in no apparent distress. uncomfortable, obese, Behavior is ae1 cooperative. Respiratory: Onset: The symptoms/episode began/occurred gradually, the patient has moderate shortness of breath. Respiratory: Airway is patent. Historical: - Allergies: 13:12 Aspirin; la1 13:12 Demerol; la1 13:12 Dilaudid; la1 13:12 Iodinated Contrast Media - IV Dye; la1 13:12 Iodine; la1 13:12 Morphine; la1 13:12 Mucinex; la1 13:12 PENICILLINS; la1 13:12 NSAIDS; la1 - PMHx: 13:12 Asthma; Bipolar disorder; Bronchitis; Depression; kidney cancer; la1 - Immunization history:: Adult Immunizations unknown. - Social history:: Smoking status: unknown. Screenin:34 Abuse screen: Denies threats or abuse. Nutritional screening: No deficits noted. ae1 Tuberculosis screening: No symptoms or risk factors identified. Fall Risk None identified. Assessment: 13:33 Reassessment: nebulizer order per Raphael TORRES ae1 13:34 Pain: Complains of pain in diaphragm. Neuro: Level of Consciousness is awake, alert, ae1 obeys commands, Oriented to person, place, time, situation. Cardiovascular: Heart tones S1 S2 present Patient's skin is warm and dry. Rhythm is regular. Respiratory: Airway is patent Respiratory effort is even, Respiratory pattern is regular, symmetrical, Mildly labored. Breath sounds are coarse bilaterally. Breath sounds with wheezes bilaterally. Respiratory: Reports shortness of breath at rest cough that is productive, patient reports green sputum. GI: No signs and/or symptoms were reported involving the gastrointestinal system. Abdomen is round obese. : No signs and/or symptoms were reported regarding the genitourinary system. EENT: No signs and/or symptoms were reported regarding the EENT system. Derm: Skin is pink, warm \\T\\ dry. Musculoskeletal: No signs and/or symptoms reported regarding the musculoskeletal system. 13:51 Reassessment: Assisted patient up to bathroom to urinate. Patient transported to ae1 bathroom via wheelchair. Obtained urine sample at this time. 15:15 Reassessment: Patient states pain with cough has increased and wishes for more pain ae1 medication. Provider notified, new orders received. 15:41 Reassessment: Patient states feeling better. Patient states symptoms have improved. ae1 Reassessment: States pain has decreased and is ready to be discharged. Provider notified. 15:48 Reassessment: Patient states pain medication helped but she "coughed real hard" and is ae1 requesting more pain medication. provider notified, new orders received. Vital Signs: 13:12 BP 141 / 70; Pulse 61; Resp 19; Pulse Ox 92% on 2 lpm NC; la1 14:03 Temp 97.9(O); ae1 15:35 BP 136 / 97; Pulse 61; Resp 16; Pulse Ox 96% on 4 lpm NC; ae1 ED Course: 13:09 Patient arrived in ED. la1 13:10 Triage completed. la1 13:12 Arm band placed on left wrist. la1 13:16 Jones Whitney MD is Attending Physician. kdr 13:24 Van Jimenez RN is Primary Nurse. ae1 13:26 Initial lab(s) drawn, by me, EKG done, by ED staff. Inserted saline lock: 22 gauge in jb1 left antecubital area, using aseptic technique. Blood collected. 13:36 Bed in low position. Call light in reach. Side rails up X2. night monitor on. Pulse ae1 ox on. NIBP on. 14:20 X-ray completed. Portable x-ray completed in exam room. Patient tolerated procedure jb2 well. 14:21 CXR XRAY In Process Unspecified. EDMS 16:05 No provider procedures requiring assistance completed. IV discontinued, intact, ae1 bleeding controlled, No redness/swelling at site. Pressure dressing applied. Administered Medications: 13:33 Drug: Xopenex 1.25 mg Route: Inhalation; ae1 14:09 Drug: NS 0.9% 500 ml Volume: 500 ml; Route: IV; Rate: 1 bolus; Site: left antecubital; ae1 16:07 Follow up: IV Status: Completed infusion ae1 14:11 Drug: SOLU-Medrol 125 mg Route: IVP; Site: left antecubital; ae1 15:29 Follow up: Response: No adverse reaction ae1 14:14 Not Given (Physician Discretion): morphine 4 mg IVP once ae1 14:20 Drug: Zofran 4 mg Route: IVP; Site: left antecubital; ae1 15:28 Follow up: Response: Nausea is decreased ae1 14:30 Drug: fentaNYL (PF) 50 mcg Route: IVP; Site: left antecubital; ae1 16:07 Follow up: Response: Pain is decreased ae1 15:18 Drug: Zofran 4 mg Route: IVP; Site: left antecubital; ae1 16:08 Follow up: Response: Nausea is decreased ae1 15:21 Drug: fentaNYL (PF) 50 mcg Route: IVP; Site: left antecubital; ae1 16:08 Follow up: Response: Pain is decreased ae1 15:56 Drug: Tylenol #3 (300 mg-30 mg) 2 tabs Route: PO; ae1 16:09 Follow up: Response: Medication administered at discharge. ae1 Outcome: 15:43 Discharge ordered by . kdr 16:05 Discharged to home via wheelchair, with family. ae1 16:05 Condition: stable 16:05 Discharge instructions given to patient, Instructed on discharge instructions, follow up and referral plans. medication usage, Demonstrated understanding of instructions, Prescriptions given X 4. 16:06 Patient left the ED. ae1 Signatures: Dispatcher [employer] EDMS Harshil Zafar jb1 Jones Whitney MD MD kdr Buechter, Jesse jb2 Hamilton Hutton RN RN la1 Tony, Van, RN RN ae1
--- NOTE | 2017-08-27 15:44 | EDPHYS ---
Physician Documentation [facility] Name: Oleg Rosenberg Age: 47 yrs Sex: Female : 1970 Arrival Date: 08/27/2017 Time: 13:09 Bed 2 Private MD: ED Physician Jones Whitney HPI: 08/27 16:58 This 47 yrs old Female presents to ER via EMS with complaints of Shortness Of kdr Breath. 16:58 The patient has shortness of breath at rest, with light activity. Onset: The kdr symptoms/episode began/occurred yesterday. Duration: The symptoms are continuous, and are steadily getting worse. The patient's shortness of breath is aggravated by coughing, exertion, light activity, talking, walking, is alleviated by nothing. Associated signs and symptoms: Pertinent positives: productive cough, Pertinent negatives: diaphoresis, dizziness, fever, hemoptysis, nausea, numbness in extremities, visual changes, vomiting. Severity of symptoms: At their worst the symptoms were mild moderate just prior to arrival, in the emergency department the symptoms are unchanged. The patient has experienced similar episodes in the past, several times. The patient has not recently seen a physician. Historical: - Allergies: 13:12 Aspirin; la1 13:12 Demerol; la1 13:12 Dilaudid; la1 13:12 Iodinated Contrast Media - IV Dye; la1 13:12 Iodine; la1 13:12 Morphine; la1 13:12 Mucinex; la1 13:12 PENICILLINS; la1 13:12 NSAIDS; la1 - PMHx: 13:12 Asthma; Bipolar disorder; Bronchitis; Depression; kidney cancer; la1 - Immunization history:: Adult Immunizations unknown. - Social history:: Smoking status: unknown. ROS: 16:58 Constitutional: Negative for fever, chills, and weight loss, Eyes: Negative for injury, kdr pain, redness, and discharge, ENT: Negative for injury, pain, and discharge, Neck: Negative for injury, pain, and swelling, Cardiovascular: Negative for chest pain, palpitations, and edema, Abdomen/GI: Negative for abdominal pain, nausea, vomiting, diarrhea, and constipation, Back: Negative for injury and pain, : Negative for injury, bleeding, discharge, and swelling, MS/Extremity: Negative for injury and deformity, Skin: Negative for injury, rash, and discoloration, Neuro: Negative for headache, weakness, numbness, tingling, and seizure activity. Psych: Negative for depression, anxiety, suicide ideation, homicidal ideation, and hallucinations, Allergy/Immunology: Negative for hives, rash, and allergies, Endocrine: Negative for neck swelling, polydipsia, polyuria, polyphagia, and marked weight changes, Hematologic/Lymphatic: Negative for swollen nodes, abnormal bleeding, and unusual bruising. 16:58 Respiratory: Positive for cough, with no reported sputum, dyspnea on exertion, shortness of breath, at rest. wheezing, expiratory, Negative for hemoptysis, orthopnea, pleurisy. Exam: 16:58 Constitutional: This is a well developed, well nourished patient who is awake, alert, kdr and in no acute distress. Head/Face: Normocephalic, atraumatic. Eyes: Pupils equal round and reactive to light, extra-ocular motions intact. Lids and lashes normal. Conjunctiva and sclera are non-icteric and not injected. Cornea within normal limits. Periorbital areas with no swelling, redness, or edema. Neck: Trachea midline, no thyromegaly or masses palpated, and no cervical lymphadenopathy. Supple, full range of motion without nuchal rigidity, or vertebral point tenderness. No Meningismus. Chest/axilla: Normal chest wall appearance and motion. Nontender with no deformity. No lesions are appreciated. Cardiovascular: Regular rate and rhythm with a normal S1 and S2. No gallops, murmurs, or rubs. Normal PMI, no JVD. No pulse deficits. Abdomen/GI: Soft, non-tender, with normal bowel sounds. No distension or tympany. No guarding or rebound. No evidence of tenderness throughout. Back: No spinal tenderness. No costovertebral tenderness. Full range of motion. Skin: Warm, dry with normal turgor. Normal color with no rashes, no lesions, and no evidence of cellulitis. MS/ Extremity: Pulses equal, no cyanosis. Neurovascular intact. Full, normal range of motion. Neuro: Awake and alert, GCS 15, oriented to person, place, time, and situation. Cranial nerves II-XII grossly intact. Motor strength 5/5 in all extremities. Sensory grossly intact. Cerebellar exam normal. Normal gait. Psych: Awake, alert, with orientation to person, place and time. Behavior, mood, and affect are within normal limits. 16:58 Respiratory: the patient does not display signs of respiratory distress, Respirations: normal, Breath sounds: + upper airway congestion. wheezing: Vital Signs: 13:12 BP 141 / 70; Pulse 61; Resp 19; Pulse Ox 92% on 2 lpm NC; la1 14:03 Temp 97.9(O); ae1 15:35 BP 136 / 97; Pulse 61; Resp 16; Pulse Ox 96% on 4 lpm NC; ae1 MDM: 15:43 Patient medically screened. kdr 16:58 Data reviewed: vital signs, nurses notes, lab test result(s), radiologic studies. kdr Counseling: I had a detailed discussion with the patient and/or guardian regarding: the historical points, exam findings, and any diagnostic results supporting the discharge/admit diagnosis, lab results, radiology results, the need for outpatient follow up. 08/27 14:24 Order name: Urine Dipstick--Ancillary (enter results) ag 08/27 14:24 Order name: Urine --Ancillary (enter results) ag 08/27 14:02 Order name: CXR XRAY [facility] 08/27 15:18 Order name: EKG Electrocardiogram EDMS Administered Medications: 13:33 Drug: Xopenex 1.25 mg Route: Inhalation; ae1 14:09 Drug: NS 0.9% 500 ml Volume: 500 ml; Route: IV; Rate: 1 bolus; Site: left antecubital; ae1 16:07 Follow up: IV Status: Completed infusion ae1 14:11 Drug: SOLU-Medrol 125 mg Route: IVP; Site: left antecubital; ae1 15:29 Follow up: Response: No adverse reaction ae1 14:14 Not Given (Physician Discretion): morphine 4 mg IVP once ae1 14:20 Drug: Zofran 4 mg Route: IVP; Site: left antecubital; ae1 15:28 Follow up: Response: Nausea is decreased ae1 14:30 Drug: fentaNYL (PF) 50 mcg Route: IVP; Site: left antecubital; ae1 16:07 Follow up: Response: Pain is decreased ae1 15:18 Drug: Zofran 4 mg Route: IVP; Site: left antecubital; ae1 16:08 Follow up: Response: Nausea is decreased ae1 15:21 Drug: fentaNYL (PF) 50 mcg Route: IVP; Site: left antecubital; ae1 16:08 Follow up: Response: Pain is decreased ae1 15:56 Drug: Tylenol #3 (300 mg-30 mg) 2 tabs Route: PO; ae1 16:09 Follow up: Response: Medication administered at discharge. ae1 Disposition: 08/27/17 15:43 Discharged to Home. Impression: Acute COPD/Asthma exacerbation. - Condition is Stable. - Discharge Instructions: Chronic Obstructive Pulmonary Disease, Asthma, Adult, [id number]. - Prescriptions for Xopenex 1.25 mg/3 mL Inhalation Solution for Nebulization - inhale 1 unit by NEBULIZATION route every 8 hours As needed; 1 box. Zithromax Z- Hero 250 mg Oral Tablet - take 1 tablet by ORAL route as directed for 5 days Day 1 - take two (2) tablets one time. Day 2, 3, 4 , 5 take one (1) tablet once daily.; 6 tablet. Medrol (Hero) 4 mg Oral Tablets, Dose Pack - take 1 tablet by ORAL route as directed - follow package instructions; 1 packet. Tylenol- Codeine #3 300-30 mg Oral Tablet - take 2 tablets by ORAL route every 6 hours As needed; 12 tablet. - Medication Reconciliation Form, Thank You Letter, Antibiotic Education, Prescription Opioid Use form. - Follow up: Private Physician; When: 2 - 3 days; Reason: If symptoms return, Further diagnostic work-up, Recheck today's complaints, Continuance of care, Re-evaluation by your physician. - Problem is an acute exacerbation. - Symptoms have improved. Signatures: Dispatcher [employer] EDJones Jaime MD MD kdr Attema, Lee, RN RN la1 Van Jimenez RN RN ae1
[2017-08-27] MEDS ORDERED: CODEINE 30MG/APAP 300MG TAB ONE (15:47)
[2017-08-27 16:10] VITALS: TEMP 97.9
[2017-08-27 16:11] VITALS: BP 136/97; O2SAT 96
--- NOTE | 2017-08-27 16:24 | EKG ---
Test Date: 2017-08-27 Test Time: 13:25:26 [employer] Loom Control: ALFRED MEASUREMENT RESULTS: Intervals: Rate: 59 SD: 138 QRSD: 86 QT: 402 QTc: 397 Blossom: P: -20 SD: 138 QRS: 40 T: 58 INTERPRETIVE STATEMENTS: Sinus bradycardia Otherwise normal ECG Compared to ECG 07/28/2017 12:06:43 Sinus rhythm no longer present Electronically Signed On 08-27-17 16:23:25 CDT by Mahendra Howard
== END 2017-08-27 16:06 | disposition home or self-care (01) ==
LOC: ER 13:08
DX: J44.1 Chronic obstructive pulmonary disease with (acute) exacerbation (principal); J45.901 Unspecified asthma with (acute) exacerbation; Z88.6 Allergy status to analgesic agent; Z91.09 Other allergy status, other than to drugs and biological substances; Z88.8 Allergy status to other drugs, medicaments and biological substances; Z88.0 Allergy status to penicillin
CPT/HCPCS: 71045; 81003; 81025; 93005; 96361; 96374; 96375; 99285; J2405; J2930; J3010

== ENCOUNTER 2017-08-31 19:54 | Emergency (ER) | payer OTHER ==
--- NOTE | 2017-08-31 20:28 | ER ---
Nurse's Notes [facility] Name: Oleg Rosenberg Age: 47 yrs Sex: Female : 1970 Arrival Date: 08/31/2017 Time: 19:55 Bed 20 Private MD: Diagnosis: Dyspnea;Asthma;Obesity, unspecified;Hypokalemia;Hypomagnesemia Presentation: 08/31 20:14 Presenting complaint: EMS states: "Patient started having some difficulty breathing and bs1 some anxiety about 30 minutes ago, she took her breathing treatment at 1920, albuterol/atrovent.". Transition of care: patient was not received from another setting of care. Onset of symptoms was August 31, 2017. Initial Sepsis Screen: Does the patient meet any 2 criteria? No. Patient's initial sepsis screen is negative. Does the patient have a suspected source of infection? No. Patient's initial sepsis screen is negative. Care prior to arrival: Medication(s) given: Albuterol Neb x 1. 20:14 Method Of Arrival: EMS: [facility] bs1 20:14 Acuity: AAYUSH 3 bs1 DIE FORGER: 21:20 LMP N/A - ao Historical: - Allergies: 21:20 Aspirin; ao 21:20 Demerol; ao 21:20 Dilaudid; ao 21:20 Iodinated Contrast Media - IV Dye; ao 21:20 Iodine; ao 21:20 Morphine; ao 21:20 Mucinex; ao 21:20 NSAIDS; ao 21:20 PENICILLINS; ao - Home Meds: 21:20 albuterol sulfate 2.5 mg /3 mL (0.083 %) Inhl nebu 3 mL 4 times per day [Active]; Breo ao Ellipta 100-25 mcg/dose inhalation dsdv 1 puff once daily [Active]; Ambien 10 mg Oral tab nightly for Sleep-Onset Insomnia [Active]; ProAir HFA 90 mcg/actuation inhalation HFAA 1 puff every 4-6 hours [Active]; Risperdal 2 mg Oral tab once daily [Active]; diazepam 10 mg Oral tab 1 tab 4 times per day [Active]; Equetro 300 mg Oral CM12 1 cap 2 times per day [Active]; Xopenex Inhl [Active]; - PMHx: 21:20 Asthma; Bipolar disorder; Bronchitis; Depression; kidney cancer; ao - PSHx: 21:20 None; ao - Immunization history:: Adult Immunizations unknown. - Family history:: not pertinent. - Social history:: Smoking status: unknown. Screenin:18 Abuse screen: Denies threats or abuse. Denies injuries from another. Nutritional ao screening: No deficits noted. Tuberculosis screening: No symptoms or risk factors identified. Fall Risk None identified. Assessment: 20:30 General: Appears in no apparent distress. comfortable, Behavior is calm, cooperative, ao appropriate for age. Pain: Complains of pain in abdomen. Neuro: Level of Consciousness is awake, alert, obeys commands, Oriented to person, place, time, situation, Appropriate for age Moves all extremities. Speech is normal, Facial symmetry appears normal. Cardiovascular: Patient's skin is warm and dry. Respiratory: Airway is patent Respiratory effort is even, unlabored, Respiratory pattern is regular, symmetrical. GI: Abdomen is non-distended, obese. : No signs and/or symptoms were reported regarding the genitourinary system. EENT: No signs and/or symptoms were reported regarding the EENT system. Derm: No signs and/or symptoms reported regarding the dermatologic system. 21:30 Reassessment: Patient appears in no apparent distress at this time. No changes from ao previously documented assessment. Patient and/or family updated on plan of care and expected duration. Pain level reassessed. Patient is alert, oriented x 3, equal unlabored respirations, skin warm/dry/pink. 21:45 Reassessment: Received a verbal order from Dr Mccall to medicate patient with ao fentanyl and Zofran as needed for nausea. 22:40 Reassessment: Patient appears in no apparent distress at this time. ao 23:30 Reassessment: Patient appears in no apparent distress at this time. Patient and/or ao family updated on plan of care and expected duration. Pain level reassessed. Patient is alert, oriented x 3, equal unlabored respirations, skin warm/dry/pink. Patient has been admitted per Dr Mccall. Dr Lujan has seen patient and decided to discharge her. Patient agree with POC. 23:30 Reassessment: Waiting on Patient to get Magnesium done before patient is discharge. ao Vital Signs: 20:14 BP 115 / 85; Pulse 85; Resp 20; Temp 98.3(O); Pulse Ox 91% on 4 lpm NC; Weight 166.47 bs1 kg; Height 5 ft. 3 in. (160.02 cm); Pain 0/10; 20:47 BP 135 / 73; Pulse 76; Resp 19; Pulse Ox 96% on 4 lpm NC; bs1 22:40 BP 136 / 72; Pulse 72; Resp 16; Pulse Ox 98% on 4 lpm NC; ao 23:30 BP 138 / 70; Pulse 74; Resp 18; Pulse Ox 98% on 3 lpm NC; ao 20:14 Body Mass Index 65.01 (166.47 kg, 160.02 cm) bs1 ED Course: 19:55 Patient arrived in ED. em1 19:58 Abhi Mccall MD is Attending Physician. marnie 20:20 Triage completed. bs1 20:28 Olman Justice, HARDIK is Primary Nurse. ao 20:28 Moises Rao MD is Hospitalizing Provider. marnie 20:29 X-ray completed. Portable x-ray completed in exam room. Patient tolerated procedure bb2 well. 20:30 XRAY Chest (1 view) In Process Unspecified. EDMS 21:18 Arm band placed on right wrist. ao 21:18 No provider procedures requiring assistance completed. Inserted saline lock: 20 gauge ao in left antecubital area, using aseptic technique. Blood collected. 21:20 Patient has correct armband on for positive identification. Pulse ox on. NIBP on. ao 09/01 00:24 IV discontinued, intact, bleeding controlled, No redness/swelling at site. Pressure ao dressing applied. Administered Medications: 08/31 20:56 Drug: Albuterol - atroVENT (3:1) (2.5 mg - 0.5 mg) 3 ml Route: Nebulizer; ao 09/01 00:40 Follow up: Response: No adverse reaction ao 08/31 20:56 Drug: fentaNYL (PF) 25 mcg Route: IVP; Site: left antecubital; ao 09/01 00:40 Follow up: Response: No adverse reaction ao 08/31 21:16 CANCELLED (Duplicate Order): fentaNYL (PF) 25 mcg IM once ao 21:16 Drug: fentaNYL (PF) 25 mcg Route: IVP; Site: left antecubital; ao 09/01 00:41 Follow up: Response: No adverse reaction ao 08/31 22:05 Drug: Zofran 4 mg Route: IVP; Site: left antecubital; ao 09/01 00:40 Follow up: Response: No adverse reaction ao 08/31 22:11 Drug: levofloxacin 500 mg Volume: 100 ml; Route: IVPB; Infused Over: 60 mins; Site: ao left antecubital; 09/01 00:39 Follow up: IV Status: Completed infusion; IV Intake: 50ml ao 08/31 22:13 Drug: Potassium Chloride 40 mEq Route: PO; ao 09/01 00:41 Follow up: Response: No adverse reaction ao 08/31 22:15 Drug: fentaNYL (PF) 25 mcg Route: IVP; Site: left antecubital; ao 09/01 00:41 Follow up: Response: No adverse reaction ao 08/31 23:22 Drug: SOLU-Medrol 125 mg Route: IVP; Site: left antecubital; ao 09/01 00:42 Follow up: Response: No adverse reaction ao 08/31 23:24 Drug: Magnesium Sulfate 2 grams Route: IVPB; Infused Over: 2 hrs; Site: left ao antecubital; 09/01 00:41 Follow up: IV Status: Completed infusion; IV Intake: 50ml ao 08/31 23:24 Drug: Albuterol 5 mg Route: Inhalation; ao 09/01 00:42 Follow up: Response: No adverse reaction ao 08/31 23:24 Drug: Zofran 4 mg Route: IVP; Site: left antecubital; ao 09/01 00:42 Follow up: Response: No adverse reaction ao 00:03 Drug: Demerol 25 mg Route: IVP; Site: left antecubital; ao 00:42 Follow up: Response: No adverse reaction; Pain is decreased ao Intake: 00:39 IV: 50ml; Total: 50ml. ao 00:41 IV: 50ml; Total: 100ml. ao Outcome: 08/31 20:28 Decision to Hospitalize by Provider. marnie 09/01 00:14 Admitted to Tele Other Patient admitted to Hospital and was discharge by Dr Salmeron. ao Patient understand the DC instructions and to follow up with PCP. Patient has no questions at this time Condition: stable 00:25 Patient left the ED. ao Signatures: Dispatcher [employer] EDAbhi Zacarias MD MD cha Martinez, Eric em1 Olman Justice RN HARDIK Henriquez, Ning bb2 Ning Vega RN RN bs1 Corrections: (The following items were deleted from the chart) 00:25 00:14 Admitted to Tele ao susanne
--- NOTE | 2017-08-31 20:28 | EDPHYS ---
Physician Documentation [facility] Name: Oleg Rosenberg Age: 47 yrs Sex: Female : 1970 Arrival Date: 08/31/2017 Time: 19:55 Bed 20 Private MD: JAMES Physician Abhi Mccall HPI: 08/31 20:17 This 47 yrs old Female presents to ER via Unassigned with complaints of marnie asthma, not better. 20:17 The patient has shortness of breath at rest, with light activity. Onset: The marnie symptoms/episode began/occurred 5 day(s) ago. Duration: The symptoms are continuous, and are steadily getting worse. The patient's shortness of breath has no apparent modifying factors. The patient presents to the emergency department with wheezing, Current therapy: albuterol nebs. Modifying factors: The symptoms are alleviated by nebulizer treatment, steroids, prednisone. The patient or guardian reports airway noise, cough, described as moderate, difficulty breathing. 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 - ao Historical: - Allergies: 21:20 Aspirin; ao 21:20 Demerol; ao 21:20 Dilaudid; ao 21:20 Iodinated Contrast Media - IV Dye; ao 21:20 Iodine; ao 21:20 Morphine; ao 21:20 Mucinex; ao 21:20 NSAIDS; ao 21:20 PENICILLINS; ao - Home Meds: 21:20 albuterol sulfate 2.5 mg /3 mL (0.083 %) Inhl nebu 3 mL 4 times per day [Active]; Breo ao Ellipta 100-25 mcg/dose inhalation dsdv 1 puff once daily [Active]; Ambien 10 mg Oral tab nightly for Sleep-Onset Insomnia [Active]; ProAir HFA 90 mcg/actuation inhalation HFAA 1 puff every 4-6 hours [Active]; Risperdal 2 mg Oral tab once daily [Active]; diazepam 10 mg Oral tab 1 tab 4 times per day [Active]; Equetro 300 mg Oral CM12 1 cap 2 times per day [Active]; Xopenex Inhl [Active]; - PMHx: 21:20 Asthma; Bipolar disorder; Bronchitis; Depression; kidney cancer; ao - PSHx: 21:20 None; ao - Immunization history:: Adult Immunizations unknown. - Family history:: not pertinent. - Social history:: Smoking status: unknown. ROS: 20:17 Constitutional: Negative for fever, chills, and weight loss, Eyes: Negative for injury, marnie pain, redness, and discharge, ENT: Negative for injury, pain, and discharge, Neck: Negative for injury, pain, and swelling, Cardiovascular: Negative for chest pain, palpitations, and edema, Abdomen/GI: Negative for abdominal pain, nausea, vomiting, diarrhea, and constipation, Back: Negative for injury and pain, : Negative for injury, bleeding, discharge, and swelling, MS/Extremity: Negative for injury and deformity, Skin: Negative for injury, rash, and discoloration, Neuro: Negative for headache, weakness, numbness, tingling, and seizure, Psych: Negative for depression, anxiety, suicide ideation, homicidal ideation, and hallucinations, Allergy/Immunology: Negative for hives, rash, and allergies, Endocrine: Negative for neck swelling, polydipsia, polyuria, polyphagia, and marked weight changes, Hematologic/Lymphatic: Negative for swollen nodes, abnormal bleeding, and unusual bruising. 20:17 Respiratory: Positive for cough, dyspnea on exertion, shortness of breath, wheezing, inspiratory, expiratory. Exam: 20:17 Constitutional: This is a well developed, well nourished patient who is awake, alert, marnie and in no acute distress. Head/Face: Normocephalic, atraumatic. Eyes: Pupils equal round and reactive to light, extra-ocular motions intact. Lids and lashes normal. Conjunctiva and sclera are non-icteric and not injected. Cornea within normal limits. Periorbital areas with no swelling, redness, or edema. ENT: Nares patent. No nasal discharge, no septal abnormalities noted. Tympanic membranes are normal and external auditory canals are clear. Oropharynx with no redness, swelling, or masses, exudates, or evidence of obstruction, uvula midline. Mucous membranes moist. Neck: Trachea midline, no thyromegaly or masses palpated, and no cervical lymphadenopathy. Supple, full range of motion without nuchal rigidity, or vertebral point tenderness. No Meningismus. Chest/axilla: Normal chest wall appearance and motion. Nontender with no deformity. No lesions are appreciated. Cardiovascular: Regular rate and rhythm with a normal S1 and S2. No gallops, murmurs, or rubs. Normal PMI, no JVD. No pulse deficits. Abdomen/GI: Soft, non-tender, with normal bowel sounds. No distension or tympany. No guarding or rebound. No evidence of tenderness throughout. Back: No spinal tenderness. No costovertebral tenderness. Full range of motion. Skin: Warm, dry with normal turgor. Normal color with no rashes, no lesions, and no evidence of cellulitis. MS/ Extremity: Pulses equal, no cyanosis. Neurovascular intact. Full, normal range of motion. Neuro: Awake and alert, GCS 15, oriented to person, place, time, and situation. Cranial nerves II-XII grossly intact. Motor strength 5/5 in all extremities. Sensory grossly intact. Cerebellar exam normal. Normal gait. Psych: Awake, alert, with orientation to person, place and time. Behavior, mood, and affect are within normal limits. 20:19 Musculoskeletal/extremity: DVT Exam: No signs of deep vein thrombosis. no pain, no marnie swelling, no tenderness, negative Homans' sign noted on exam, no appreciated bluish discoloration, no erythema, no increased warmth. Vital Signs: 20:14 BP 115 / 85; Pulse 85; Resp 20; Temp 98.3(O); Pulse Ox 91% on 4 lpm NC; Weight 166.47 bs1 kg; Height 5 ft. 3 in. (160.02 cm); Pain 0/10; 20:47 BP 135 / 73; Pulse 76; Resp 19; Pulse Ox 96% on 4 lpm NC; bs1 22:40 BP 136 / 72; Pulse 72; Resp 16; Pulse Ox 98% on 4 lpm NC; ao 23:30 BP 138 / 70; Pulse 74; Resp 18; Pulse Ox 98% on 3 lpm NC; ao 20:14 Body Mass Index 65.01 (166.47 kg, 160.02 cm) bs1 MDM: 19:58 Patient medically screened. [facility] 20:19 Data reviewed: vital signs, nurses notes, lab test result(s), EKG, radiologic studies, [facility] plain films. 08/31 20:13 Order name: Urine Dipstick--Ancillary (enter results); Complete Time: 21:12 cc 08/31 20:15 Order name: Basic Metabolic Panel; Complete Time: 21:53 marnie 08/31 20:15 Order name: BNP; Complete Time: 21:53 marnie 08/31 20:15 Order name: CBC with Diff; Complete Time: 21:12 marnie 08/31 20:15 Order name: Ckmb; Complete Time: 21:53 marnie 08/31 20:15 Order name: CPK; Complete Time: 21:53 marnie 08/31 20:15 Order name: LFT's; Complete Time: 21:53 marnie 08/31 20:15 Order name: Magnesium; Complete Time: 21:53 [facility] 08/31 20:15 Order name: PT-INR; Complete Time: 21:12 [facility] 08/31 20:15 Order name: Ptt, Activated; Complete Time: 21:12 marnie 08/31 20:15 Order name: Troponin (emerg Dept Use Only); Complete Time: 21:53 [facility] 08/31 20:15 Order name: XRAY Chest (1 view); Complete Time: 21:12 marnie 08/31 20:15 Order name: Blood Culture Adult (2) [facility] 08/31 20:15 Order name: Urine Culture [facility] 08/31 20:13 Order name: Urine Dipstick-Ancillary (obtain specimen); Complete Time: 20:13 cc 08/31 20:31 Order name: CONS Physician Consult EDPA 08/31 20:15 Order name: Cardiac monitoring; Complete Time: 22:12 [facility] 08/31 20:15 Order name: EKG - Nurse/Tech; Complete Time: 23:24 [facility] 08/31 20:15 Order name: IV Saline Lock; Complete Time: 22:12 [facility] 08/31 20:15 Order name: Labs collected and sent; Complete Time: 22:12 [facility] 08/31 20:15 Order name: O2 Per Protocol; Complete Time: 22:12 [facility] 08/31 20:15 Order name: O2 Sat Monitoring; Complete Time: 22:12 [facility] Administered Medications: 20:56 Drug: Albuterol - atroVENT (3:1) (2.5 mg - 0.5 mg) 3 ml Route: Nebulizer; ao 09/01 00:40 Follow up: Response: No adverse reaction ao 08/31 20:56 Drug: fentaNYL (PF) 25 mcg Route: IVP; Site: left antecubital; ao 09/01 00:40 Follow up: Response: No adverse reaction ao 08/31 21:16 CANCELLED (Duplicate Order): fentaNYL (PF) 25 mcg IM once ao 21:16 Drug: fentaNYL (PF) 25 mcg Route: IVP; Site: left antecubital; ao 09/01 00:41 Follow up: Response: No adverse reaction ao 08/31 22:05 Drug: Zofran 4 mg Route: IVP; Site: left antecubital; ao 09/01 00:40 Follow up: Response: No adverse reaction ao 08/31 22:11 Drug: levofloxacin 500 mg Volume: 100 ml; Route: IVPB; Infused Over: 60 mins; Site: ao left antecubital; 09/01 00:39 Follow up: IV Status: Completed infusion; IV Intake: 50ml ao 08/31 22:13 Drug: Potassium Chloride 40 mEq Route: PO; ao 09/01 00:41 Follow up: Response: No adverse reaction ao 08/31 22:15 Drug: fentaNYL (PF) 25 mcg Route: IVP; Site: left antecubital; ao 09/01 00:41 Follow up: Response: No adverse reaction ao 08/31 23:22 Drug: SOLU-Medrol 125 mg Route: IVP; Site: left antecubital; ao 09/01 00:42 Follow up: Response: No adverse reaction ao 08/31 23:24 Drug: Magnesium Sulfate 2 grams Route: IVPB; Infused Over: 2 hrs; Site: left ao antecubital; 09/01 00:41 Follow up: IV Status: Completed infusion; IV Intake: 50ml ao 08/31 23:24 Drug: Albuterol 5 mg Route: Inhalation; ao 09/01 00:42 Follow up: Response: No adverse reaction ao 08/31 23:24 Drug: Zofran 4 mg Route: IVP; Site: left antecubital; ao 09/01 00:42 Follow up: Response: No adverse reaction ao 00:03 Drug: Demerol 25 mg Route: IVP; Site: left antecubital; ao 00:42 Follow up: Response: No adverse reaction; Pain is decreased ao Disposition: 08/31/17 20:28 Hospitalization ordered by Moises Rao for Inpatient Admission. Preliminary diagnosis are Dyspnea, Asthma, Obesity, unspecified, Hypokalemia, Hypomagnesemia. - Bed requested for Telemetry/MedSurg (Inpatient). - Status is Inpatient Admission. ao - Condition is Fair. - Problem is new. - Symptoms have improved. UTI on Admission? No Signatures: Dispatcher [employer] EDLisa Balbuena, Karol Ureña RN RN Abhi David MD MD cha Christian, Chelsea cc Ortiz, Alex RN RN ao Corrections: (The following items were deleted from the chart) 08/31 21:16 21:15 fentaNYL (PF) 25 mcg IM once ordered. ao ao
[2017-08-31] MEDS ORDERED: ALBUTEROL 2.5 MG/3 ML NEB SOL ONE ×2 (20:29→23:11)
[2017-08-31] MEDS ORDERED: IPRATROPIUM BROM 0.5MG/2.5ML ONE (20:29)
[2017-08-31] MEDS ORDERED: Levofloxacin500mg IV 500 MG/100 ML BAG IV ONE (20:30)
[2017-08-31] MEDS ORDERED: FENTANYL CITR 100 MCG/2 ML ONE (20:47)
--- NOTE | 2017-08-31 20:47 | RAD REPORT ---
EXAM DESCRIPTION: RAD - Chest Single View - 08/31/2017 8:30 pm CLINICAL HISTORY: Shortness of breath COMPARISON: 08/27/2017 FINDINGS: Portable technique limits examination quality. The lungs are mildly emphysematous but grossly clear. The heart is normal in size. No displaced fract ures. IMPRESSION: No acute intrathoracic process suspected.
[2017-08-31 20:53] LABS: Urine Blood NEGATIVE (NEG); Urine Glucose NEGATIVE (NEG); Urine Protein NEGATIVE (NEG); Urine Specific Gravity 1.015 (1.005-1.030); Urine pH 8.5 (5.0-7.0)
[2017-08-31 20:54] LABS: Absolute Lymphocytes (CBC) 2.2 K/uL (0.7-4.9); Absolute Monocytes 0.5 K/uL (0.1-1.3); Absolute Neutrophil 5.3 K/uL (1.8-8.0); Hematocrit 38.3 % (36.0-45.0); Lymphocytes % 26.6 % (15.3-44.8); MCH 30.3 pg (27.0-35.0); MCV 90.4 fL (80-100); MPV 7.8 fL (7.6-11.3); Monocytes % 6.6 % (3.3-12.3); RBC Red Blood Cell Count 4.23 M/uL (3.86-4.86)
[2017-08-31 20:59] LABS: Protime INR 1.02
[2017-08-31 21:10] LABS: Bicarbonate 32 mEq/L (21-31); Glucose Level 114 mg/dL (65-120); Potassium 3.5 mEq/L (3.6-5.0); Sodium Level 137 mEq/L (135-145)
[2017-08-31 21:16] LABS: ALT/SGPT 17 IU/L (10-60); AST/SGOT 21 IU/L (10-42); Albumin 3.7 g/dL (3.2-5.5); Alkaline Phosphatase 69 IU/L (42-121); BUN Blood Urea Nitrogen 11 mg/dL (6-20); Bilirubin Direct < 0.1 mg/dL (0-0.2); Bilirubin Total 0.3 mg/dL (0.3-1.2); Creatine Phosphokinase 30 IU/L (22-269); Magnesium 1.7 mg/dL (1.8-2.5); Protein, Total 6.8 g/dL (6.0-8.3)
[2017-08-31 21:20] LABS: CKMB Creatine Kinase MB 0.9 ng/ml (0.3-4.0)
[2017-08-31] MEDS ORDERED: ONDANSETRON 4 MG/2 ML VIAL ONE (21:21)
[2017-08-31] MEDS ORDERED: PROMETHAZINE 25 MG/ML VIAL ONE (21:22)
[2017-08-31] MEDS ORDERED: POTASSIUM CL SA 10 MEQ TAB PO ONE (21:57)
[2017-08-31] MEDS ORDERED: Magnesium Sulfate 2gm IVPB 2 G/50 ML BAG IV ONE (21:58)
--- NOTE | 2017-08-31 23:06 | P.HP ---
Certification for Inpatient Patient admitted to: Observation With expected LOS: <2 Midnights Practitioner: I am a practitioner with admitting privileges, knowledge of patient current condition, hospital course, and medical plan of care. Services: Services provided to patient in accordance with Admission requirements found in Title 42 Section 412.3 of the Code of Federal Regulations Patient History Date of Service: 08/31/17 Reason for admission: asthma exacerbation History of Present Illness: Ms Rosenberg is a 47 years old woman with history of asthma, morbid obesity, bipolar disorder, obstructive sleep apnea, who start about 4 days ago with progressive SOB. It was associated with cough, mostly dry. She denied any fever or chills at home. She is also complaining of abdominal pain, due to cough. She use 4L of oxygen at home. At arrival to ED, she was wheezing. The patient received breathing treatments, and gradually improved her condition. At my encounter she was only complaining of pain, and was asking something stronger than Fentanyl. Allergies aspirin Allergy (Severe, Verified 05/16/17 22:11) Anaphylaxis guaifenesin [From Mucinex] Allergy (Severe, Verified 05/16/17 22:11) Anaphylaxis hydromorphone HCl [From Dilaudid] Allergy (Severe, Verified 05/16/17 22:11) Anaphylaxis morphine Allergy (Severe, Verified 05/16/17 22:11) Anaphylaxis NSAIDS (Non-Steroidal Anti-Inflamma Allergy (Severe, Verified 05/16/17 22:11) Hives Penicillins Allergy (Severe, Verified 05/16/17 22:11) Anaphylaxis codeine Allergy (Verified 05/16/17 22:11) Hives Iodinated Contrast- Oral and IV Dye [Iodinated Contrast Media - IV Dye] Allergy (Verified 05/16/17 22:11) Anaphylaxis iodine Allergy (Verified 05/16/17 22:11) Unknown Demerol Allergy (Uncoded 05/16/17 22:11) Unknown Home Medications: RX: Risperidone [Risperdal 1 mg tab*] 2 mg PO DAILY 09/24/15 RX: Diazepam 10 mg PO QID 12/31/16 RX: Albuterol Sulfate [Proair Hfa] 2 puff IN QIDP PRN 05/16/17 RX: Carbamazepine [Equetro] 200 mg PO TID 05/16/17 Benzonatate [Tessalon Perle] 100 mg PO TID PRN #30 cap 08/31/17 Prednisone [Deltasone] 10 mg PO DAILY #21 tab 08/31/17 RX: Azithromycin Tab [Zithromax*] 250 mg PO ZPAK #1 paramjit 08/31/17 RX: Tramadol HCl [Ultram] 50 mg PO Q6HR PRN #30 tablet 08/31/17 - Past Medical/Surgical History Diabetic: No -: 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 - Family History Father -: Heart disease, Hypertension, Cancer, Liver disease Notes: liver CA, cirrhosis Mother -: Lung disease, Other (see notes) Notes: copd , of morbid obesity Brother -: Hypertension Sister -: Lung disease, GI disease, Diabetes - Social History Alcohol use: No CD- Drugs: No Caffeine use: Yes Review of Systems 10-point ROS is otherwise unremarkable Physical Examination - Physical Exam General: Alert, In no apparent distress HEENT: Atraumatic, PERRLA, Mucous membr. moist/pink, EOMI, Sclerae nonicteric Neck: Supple, 2+ carotid pulse no bruit, No LAD, Without JVD or thyroid abnormality Respiratory: Clear to auscultation bilaterally, Normal air movement, Other (No wheezing at my encounter) Cardiovascular: Regular rate/rhythm, Normal S1 S2 Gastrointestinal: Normal bowel sounds, No tenderness Musculoskeletal: No tenderness Integumentary: No rashes Neurological: Normal speech, Normal strength at 5/5 x4 extr, Normal tone, Normal affect Lymphatics: No axilla or inguinal lymphadenopathy - Studies Laboratory Data (last 24 hrs) 08/31/17 20:45: PT 12.0, INR 1.02, APTT 27.6 08/31/17 20:45: WBC 8.2, Hgb 12.8, Hct 38.3, Plt Count 238 D 08/31/17 20:45: B-Natriuretic Peptide 29 08/31/17 20:45: Sodium 137, Potassium 3.5 L, BUN 11, Creatinine 0.79, Glucose 114, Magnesium 1.7 L, Total Bilirubin 0.3, AST 21, ALT 17, Alkaline Phosphatase 69 Assessment and Plan - Problems (Diagnosis) (1) Chronic respiratory failure Current Visit: No Status: Acute Qualifiers: Respiratory failure complication: hypoxia and hypercapnia Qualified Code(s) : J96.11 - Chronic respiratory failure with hypoxia; J96.12 - Chronic respiratory failure with hypercapnia; J96.12 - Chronic respiratory failure with hypercapnia; J96.12 - Chronic respiratory failure with hypercapnia (2) Hypomagnesemia Onset Date: 10/23/16 Current Visit: No Status: Acute (3) Asthma Onset Date: 04/27/17 Current Visit: No Status: Chronic Qualifiers: Asthma severity: mild Asthma persistence: intermittent Asthma complication type: with acute exacerbation Qualified Code(s): J45.21 - Mild intermittent asthma with (acute) exacerbation (4) Morbid obesity Onset Date: 10/23/16 Current Visit: No Status: Chronic - Plan The patient was treated with albuterol and ipratropium. She improved her bronchospasm. CXR shows no acute infiltrate, Lab work remarkable for normal WBC count, hypomagnesemia, already treated. She is satting 100% on 4L of oxygen, similar to her home setting. At this point, the patient will not benefit from a hospital admission. She will be discharged home with oral prednisone, Azithromycin, and breathing treatments. F/U with PCP in 2-3 days. She is discharged in stable condition. - Advance Directives Does patient have a Living Will: No Does patient have a Durable POA for Healthcare: No - Code Status/Comfort Care Code Status Assessed: Yes Code Status: Full Code
[2017-08-31] MEDS ORDERED: METHYLPREDNISOLONE 125 MG INJ ONE (23:11)
[2017-08-31] MEDS ORDERED: MEPERIDINE HCL 25 MG/0.5 ML ONE (23:54)
[2017-09-01 00:39] VITALS: TEMP 98.3
[2017-09-01 00:40] VITALS: BP 135/73; O2SAT 96
== END 2017-09-01 00:21 | disposition home or self-care (01) ==
LOC: ER 19:54 → ERHOLD 20:52 → UNDOADMIN 20:52 → ER 09-01 00:21 → UNDODISIN 09-01 00:21
DX: J45.909 Unspecified asthma, uncomplicated (principal); E66.9 Obesity, unspecified; E87.6 Hypokalemia; E83.42 Hypomagnesemia; F32.9 Major depressive disorder, single episode, unspecified; Z88.6 Allergy status to analgesic agent; Z88.0 Allergy status to penicillin; Z88.5 Allergy status to narcotic agent; Z88.8 Allergy status to other drugs, medicaments and biological substances; Z85.528 Personal history of other malignant neoplasm of kidney; Z87.891 Personal history of nicotine dependence; Z91.041 Radiographic dye allergy status; Z91.048 Other nonmedicinal substance allergy status
CPT/HCPCS: 36415; 71045; 80048; 80076; 81003; 82550; 82553; 83735; 83880; 84484; 85025; 85610; 85730; 87040; 87086; 87088; 94640; 96365; 96366; 96368; 96375; 99285; J2175; J2405; J2550; J2930; J3010; J3475

== ENCOUNTER 2017-09-28 19:56 | Emergency (ER) | payer OTHER ==
[2017-09-28] MEDS ORDERED: MEPERIDINE HCL 50 MG/ML AMP ONE ×2 (20:25→21:28)
[2017-09-28] MEDS ORDERED: NA CHLORIDE 0.9% 500 ML ONE (20:26)
[2017-09-28] MEDS ORDERED: LEVALBUTEROL 1.25 MG/3 ML NEB ONE (20:26)
[2017-09-28] MEDS ORDERED: METOCLOPRAMIDE 10 MG/2mL INJ ONE (20:26)
[2017-09-28 20:55] LABS: Absolute Lymphocytes (CBC) 2.1 K/uL (0.7-4.9); Absolute Monocytes 0.4 K/uL (0.1-1.3); Absolute Neutrophil 3.5 K/uL (1.8-8.0); Basophils % 0.8 % (0-1.3); Eosinophils % 1.4 % (0-4.4); Hematocrit 35.2 % (36.0-45.0); Lymphocytes % 34.5 % (15.3-44.8); MCH 31.9 pg (27.0-35.0); MCV 94.7 fL (80-100); MPV 8.5 fL (7.6-11.3); Monocytes % 6.7 % (3.3-12.3); RBC Red Blood Cell Count 3.72 M/uL (3.86-4.86)
--- NOTE | 2017-09-28 21:01 | RAD REPORT ---
EXAM DESCRIPTION: CT - Head Brain Wo Cont - 09/28/2017 8:56 pm CLINICAL HISTORY: Headache, dizziness, weakness COMPARISON: CT head January 2017 TECHNIQUE: Axial 5 mm thick images of the head were obtained without IV contrast. All CT scans are performed using dose optimization technique as appropriate and may include automated exposure control or mA/KV adjustment according to patient size. FINDINGS: No intracranial hemorrhage, mass, edema or shift of mid-line structures. No acute infarcti on changes seen. No abnormal extra-axial fluid collections. Ventricles are normal. No acute intracran ial process in the intracranial findings are similar to comparison. Mastoid air cells and visualized portions of the paranasal sinuses are clear. No acute bony findings. IMPRESSION: Negative non-contrast CT head examination for acute finding. No significant change from comparison.
[2017-09-28 21:05] LABS: Potassium 4.1 mEq/L (3.6-5.0)
--- NOTE | 2017-09-28 21:55 | ER ---
Nurse's Notes [facility] Name: Oleg Rosenberg Age: 47 yrs Sex: Female : 1970 Arrival Date: 09/28/2017 Time: 20:06 Bed 30 Private MD: Diagnosis: Migraine Presentation: 09/28 20:07 Presenting complaint: Patient states: Headache, dizziness, weakness and nausea started mb3 2 hours ago. Did say headache started this morning after questioning. Transition of care: patient was not received from another setting of care. Onset of symptoms was September 28, 2017 at 17:00. Risk Assessment: Do you want to hurt yourself or someone else? Patient reports no desire to harm self or others. Initial Sepsis Screen: Does the patient meet any 2 criteria? No. Patient's initial sepsis screen is negative. Does the patient have a suspected source of infection? No. Patient's initial sepsis screen is negative. Care prior to arrival: None. 20:07 Method Of Arrival: EMS: [facility] mb3 20:07 Acuity: AAYUSH 3 mb3 Triage Assessment: 20:12 General: Appears uncomfortable, obese, Behavior is calm, cooperative, appropriate for mb3 age. Pain: Complains of pain in forehead Pain currently is 10 out of 10 on a pain scale. Quality of pain is described as pressure, sharp, shooting, Pain began suddenly, 2 hours ago. Neuro: Level of Consciousness is awake, alert, obeys commands, Oriented to person, place, time, situation, Appropriate for age Slasher Tender Helper are equal bilaterally Moves all extremities. Full function Speech is normal, Facial symmetry appears normal, Pupils are PERRLA, Intact. Cardiovascular: No deficits noted. Denies chest pain, Heart tones S1 S2 present Capillary refill < 3 seconds Patient's skin is warm and dry. Respiratory: Reports shortness of breath at rest Airway is patent Respiratory effort is even, unlabored, Respiratory pattern is regular, symmetrical, Breath sounds are clear Breath sounds are diminished bilaterally. GI: Abdomen is obese, Bowel sounds present X 4 quads. Abd is soft and non tender. : No signs and/or symptoms were reported regarding the genitourinary system. Derm: No signs and/or symptoms reported regarding the dermatologic system. 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 - Social history:: Smoking status: Patient/guardian denies using tobacco, the patient reports quitting approximately 2 years ago. - Family history:: not pertinent. - Ebola Screening: : Patient denies travel to an Ebola-affected area in the 21 days before illness onset No symptoms or risks identified at this time. - Hospitalizations: : No recent hospitalization is reported. Screenin:25 Abuse screen: Denies threats or abuse. Nutritional screening: No deficits noted. mb3 Tuberculosis screening: No symptoms or risk factors identified. Fall Risk None identified. Assessment: 21:20 General: Appears in no apparent distress. comfortable, obese, Behavior is calm, mb3 cooperative, appropriate for age. Pain: Complains of pain in forehead, right taoist and left taoist Pain does not radiate. Pain currently is 10 out of 10 on a pain scale. Neuro: Level of Consciousness is awake, alert, obeys commands, Oriented to person, place, time, situation, Appropriate for age Slasher Tender Helper are equal bilaterally Moves all extremities. Full function. Cardiovascular: Denies chest pain, Heart tones present Capillary refill < 3 seconds Patient's skin is warm and dry. Pulses are palpable in right radial artery, right dorsalis pedis artery, left radial artery and left dorsalis pedis artery. Respiratory: Airway is patent Respiratory effort is even, labored, Respiratory pattern is regular, symmetrical, Breath sounds are clear bilaterally. Breath sounds are diminished bilaterally. in right upper lobe, left upper lobe, right middle lobe, left lower lobe, right lower lobe, left posterior upper lobe, right posterior upper lobe, left posterior lower lobe, right posterior middle lobe and right posterior lower lobe. GI: Abdomen is obese, Bowel sounds present X 4 quads. Abd is soft and non tender X 4 quads. : No deficits noted. No signs and/or symptoms were reported regarding the genitourinary system. Derm: Skin is intact, Skin is dry, Skin is pink, warm \T\ dry. Skin temperature is warm. Musculoskeletal: No signs and/or symptoms reported regarding the musculoskeletal system. Vital Signs: 20:15 BP 132 / 77; Pulse 90; Resp 24; Temp 100.1(O); Pulse Ox 97% on 3 lpm NC; Weight 156.49 mb3 kg; Height 5 ft. 6 in. (167.64 cm); Pain 10/10; 21:18 BP 104 / 73; Pulse 78; Resp 24; Pulse Ox 98% on 3 lpm NC; mb3 20:15 Body Mass Index 55.68 (156.49 kg, 167.64 cm) mb3 Shiv Coma Score: 21:53 Eye Response: spontaneous(4). Verbal Response: oriented(5). Motor Response: obeys rn commands(6). Total: 15. ED Course: 20:06 Patient arrived in ED. rn 20:06 Ihsan Song MD is Attending Physician. rn 20:07 Russ Garrison RN is Primary Nurse. mb3 20:09 Triage completed. mb3 20:10 Inserted saline lock: 20 gauge in left antecubital area, using aseptic technique. Blood mb3 collected. 20:[address] vm2 20:56 CT Head Brain wo Cont In Process Unspecified. EDMS 22:25 Patient has correct armband on for positive identification. mb3 22:25 No provider procedures requiring assistance completed. mb3 22:26 IV discontinued, intact, bleeding controlled, No redness/swelling at site. Pressure mb3 dressing applied. 22:27 Arm band placed on. mb3 Administered Medications: 20:35 Drug: NS 0.9% 500 ml Route: IV; Rate: bolus; Site: left antecubital; mb3 22:24 Follow up: Response: No adverse reaction; IV Status: Completed infusion; IV Intake: mb3 500ml 20:35 Drug: Reglan 10 mg Route: IVP; Site: left antecubital; mb3 22:24 Follow up: Response: No adverse reaction mb3 20:35 Drug: Demerol 50 mg Route: IVP; Site: left antecubital; mb3 22:23 Follow up: Response: No adverse reaction mb3 20:42 Drug: Xopenex 1.25 mg Route: Inhalation; mb3 22:23 Follow up: Response: No adverse reaction mb3 21:30 Drug: Demerol 50 mg Route: IVP; Site: left antecubital; mb3 22:23 Follow up: Response: No adverse reaction mb3 Intake: 22:24 IV: 500ml; Total: 500ml. mb3 Outcome: 21:54 Discharge ordered by . rn 22:26 Discharged to home ambulatory. mb3 22:26 Condition: stable 22:26 Discharge instructions given to patient, Instructed on discharge instructions, follow up and referral plans. Demonstrated understanding of instructions, follow-up care. 22:27 Patient left the ED. mb3 Signatures: Dispatcher [employer] EDIhsan Casper MD MD rn [place], [facility] Russ Garrison RN RN mb3
--- NOTE | 2017-09-28 21:55 | EDPHYS ---
Physician Documentation [facility] Name: Oleg Rosenberg Age: 47 yrs Sex: Female : 1970 Arrival Date: 09/28/2017 Time: 20:06 Bed 30 Private MD: ED Physician Ihsan Song HPI: 09/28 20:10 This 47 yrs old Female presents to ER via EMS with complaints of headache. rn 20:10 The patient complains of pain to the forehead. The patient describes the headache as rn aching. Onset: The symptoms/episode began/occurred this morning. Associated signs and symptoms: Pertinent positives: This patient does not have any pertinent positive signs or symptoms associated with a headache. Pertinent negatives: altered mental status, fever, neck stiffness, paresthesias, rash, vision changes, vision loss, vomiting, weakness, vertigo. Severity of symptoms: At its worst the pain was moderate, in the emergency department the pain is unchanged. Headache History: The patient has had previous headaches and this one is more severe than previous episodes. The patient has experienced similar episodes in the past. Reports headache since this morning, assoc with nausea, no neck stiffness, no fever, no trauma, reports breathing about baseline, uses 4L O2 cont at home, no vision changes. . 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 - Social history:: Smoking status: Patient/guardian denies using tobacco, the patient reports quitting approximately 2 years ago. - Family history:: not pertinent. - Ebola Screening: : Patient denies travel to an Ebola-affected area in the 21 days before illness onset No symptoms or risks identified at this time. - Hospitalizations: : No recent hospitalization is reported. ROS: 20:10 Constitutional: Negative for fever, chills, and weight loss, Eyes: Negative for injury, rn pain, redness, and discharge, Neck: Negative for injury, pain, and swelling, Cardiovascular: Negative for chest pain, palpitations, and edema, Respiratory: Negative for shortness of breath, cough, wheezing, and pleuritic chest pain, Abdomen/GI: Negative for abdominal pain, vomiting, diarrhea, and constipation, MS/Extremity: Negative for injury and deformity, Skin: Negative for injury, and discoloration, Neuro: Negative for numbness, tingling, and seizure. Exam: 20:10 Constitutional: This is a well developed, well nourished patient who is awake, alert, rn and in no acute distress. Head/Face: Normocephalic, atraumatic. Eyes: Pupils equal round and reactive to light, extra-ocular motions intact. Lids and lashes normal. Conjunctiva and sclera are non-icteric and not injected. Cornea within normal limits. Periorbital areas with no swelling, redness, or edema. Neck: Trachea midline, no thyromegaly or masses palpated, and no cervical lymphadenopathy. Supple, full range of motion without nuchal rigidity, or vertebral point tenderness. No Meningismus. Cardiovascular: Regular rate and rhythm with a normal S1 and S2. No gallops, murmurs, or rubs. Normal PMI, no JVD. No pulse deficits. Respiratory: faint bilateral exp wheezing, no retractions Abdomen/GI: Soft, non-tender, with normal bowel sounds. No distension or tympany. No guarding or rebound. No evidence of tenderness throughout. MS/ Extremity: Pulses equal, no cyanosis. Neurovascular intact. Full, normal range of motion. Equal circumference. Neuro: Awake and alert, GCS 15, oriented to person, place, time, and situation. Cranial nerves II-XII grossly intact. Motor strength 5/5 in all extremities. Sensory grossly intact. Vital Signs: 20:15 BP 132 / 77; Pulse 90; Resp 24; Temp 100.1(O); Pulse Ox 97% on 3 lpm NC; Weight 156.49 mb3 kg; Height 5 ft. 6 in. (167.64 cm); Pain 10/10; 21:18 BP 104 / 73; Pulse 78; Resp 24; Pulse Ox 98% on 3 lpm NC; mb3 20:15 Body Mass Index 55.68 (156.49 kg, 167.64 cm) mb3 [place] Coma Score: 21:53 Eye Response: spontaneous(4). Verbal Response: oriented(5). Motor Response: obeys rn commands(6). Total: 15. MDM: 20:06 Patient medically screened. rn 21:53 Differential diagnosis: hypertensive headache, migraine, tension headache, vasomotor rn headache. Data reviewed: vital signs, nurses notes, lab test result(s), radiologic studies, CT scan, and as a result, I will discharge patient. Counseling: I had a detailed discussion with the patient and/or guardian regarding: the historical points, exam findings, and any diagnostic results supporting the discharge/admit diagnosis, lab results, radiology results, the need for outpatient follow up, to return to the emergency department if symptoms worsen or persist or if there are any questions or concerns that arise at home. Response to treatment: the patient's symptoms have mildly improved after treatment, and as a result, I will discharge patient. Special discussion: I discussed with the patient/guardian in detail that at this point there is no indication for admission to the hospital. It is understood, however, that if the symptoms persist or worsen the patient needs to return immediately for re-evaluation. 09/28 20:08 Order name: BMP; Complete Time: 21:13 rn 09/28 20:09 Order name: CBC with Diff; Complete Time: 21:13 rn 09/28 20:08 Order name: CT Head Brain wo Cont; Complete Time: 21:03 rn 09/28 20:08 Order name: EKG - Nurse/Tech rn 09/28 20:08 Order name: IV Start; Complete Time: 20:44 rn 09/28 20:09 Order name: Glucose Level; Complete Time: 21:25 rn Administered Medications: 20:35 Drug: NS 0.9% 500 ml Route: IV; Rate: bolus; Site: left antecubital; mb3 22:24 Follow up: Response: No adverse reaction; IV Status: Completed infusion; IV Intake: mb3 500ml 20:35 Drug: Reglan 10 mg Route: IVP; Site: left antecubital; mb3 22:24 Follow up: Response: No adverse reaction mb3 20:35 Drug: Demerol 50 mg Route: IVP; Site: left antecubital; mb3 22:23 Follow up: Response: No adverse reaction mb3 20:42 Drug: Xopenex 1.25 mg Route: Inhalation; mb3 22:23 Follow up: Response: No adverse reaction mb3 21:30 Drug: Demerol 50 mg Route: IVP; Site: left antecubital; mb3 22:23 Follow up: Response: No adverse reaction mb3 Disposition: 09/28/17 21:54 Discharged to Home. Impression: Migraine. - Condition is Stable. - Discharge Instructions: Migraine Headache. - Medication Reconciliation Form, Thank You Letter, Antibiotic Education, Prescription Opioid Use form. - Follow up: Private Physician; When: As needed; Reason: Recheck today's complaints, Re-evaluation by your physician. - Problem is new. - Symptoms have improved. Signatures: Dispatcher [employer] EDMS Ihsan Song MD MD rn Barnett, Mark, RN RN mb3 Corrections: (The following items were deleted from the chart) 22:27 21:54 09/28/2017 21:54 Discharged to Home. Impression: Migraine. Condition is Stable. mb3 Forms are Medication Reconciliation Form, Thank You Letter, Antibiotic Education, Prescription Opioid Use. Follow up: Private Physician; When: As needed; Reason: Recheck today's complaints, Re-evaluation by your physician. Problem is new. Symptoms have improved. rn
[2017-09-28 22:45] VITALS: TEMP 100.1
[2017-09-28 22:46] VITALS: BP 104/73; O2SAT 98
== END 2017-09-28 22:27 | disposition home or self-care (01) ==
LOC: ER 19:56
DX: G43.909 Migraine, unspecified, not intractable, without status migrainosus (principal); F31.9 Bipolar disorder, unspecified; Z88.0 Allergy status to penicillin; Z88.5 Allergy status to narcotic agent; Z88.6 Allergy status to analgesic agent; Z91.041 Radiographic dye allergy status; Z85.528 Personal history of other malignant neoplasm of kidney
CPT/HCPCS: 36415; 70450; 80048; 85025; 96361; 96374; 96375; 99285; J2175; J2765

== ENCOUNTER 2017-10-20 21:35 | Emergency (ER) | payer OTHER ==
[2017-10-20] MEDS ORDERED: FENTANYL CITR 100 MCG/2 ML ONE (22:06)
[2017-10-20 22:54] LABS: Absolute Lymphocytes (CBC) 2.2 K/uL (0.7-4.9); Absolute Monocytes 0.5 K/uL (0.1-1.3); Absolute Neutrophil 3.1 K/uL (1.8-8.0); Basophils % 1.4 % (0-1.3); Eosinophils % 1.6 % (0-4.4); Hematocrit 34.5 % (36.0-45.0); Lymphocytes % 37.1 % (15.3-44.8); MCH 31.4 pg (27.0-35.0); MCV 97.6 fL (80-100); MPV 8.7 fL (7.6-11.3); Monocytes % 7.7 % (3.3-12.3); RBC Red Blood Cell Count 3.54 M/uL (3.86-4.86)
[2017-10-20] MEDS ORDERED: PROMETHAZINE 25 MG/ML VIAL ONE (23:04)
[2017-10-20 23:38] LABS: ALT/SGPT 11 U/L (12-78); AST/SGOT 11 U/L (15-37); Alkaline Phosphatase 70 U/L (45-117); BUN Blood Urea Nitrogen 12 mg/dL (7-18); Bilirubin Direct < 0.1 mg/dL (0-0.2); CKMB Creatine Kinase MB < 1.0 ng/mL (0.3-3.6); Creatine Phosphokinase 44 U/L (26-192); Glucose Level 95 mg/dL (74-106); Magnesium 2.1 mg/dL (1.8-2.4); Protein, Total 5.9 g/dL (6.4-8.2)
[2017-10-20 23:48] LABS: Urine Blood NEGATIVE (NEG); Urine Glucose NEGATIVE (NEG); Urine Protein NEGATIVE (NEG); Urine Specific Gravity 1.025 (1.005-1.030)
[2017-10-20] MEDS ORDERED: MEPERIDINE HCL 50 MG/ML AMP ONE (23:59)
[2017-10-21 00:14] LABS: Bicarbonate 30 mmol/L (21-32); Bilirubin Total < 0.1 mg/dL (0.2-1.0); Sodium Level 142 mmol/L (136-145)
[2017-10-21 00:30] LABS: Protime INR 0.97
--- NOTE | 2017-10-21 01:16 | EDPHYS ---
Physician Documentation [facility] Name: Oleg Rosenberg Age: 47 yrs Sex: Female : 1970 Arrival Date: 10/20/2017 Time: 21:44 Bed 4 Private MD: Abhi Tucker HPI: 10/20 22:00 This 47 yrs old Female presents to ER via EMS with complaints of Chest Pain. pm1 22:00 The patient or guardian reports chest pain that is located primarily in the anterior pm1 chest wall, right, right shoulder. Onset: today. The pain does not radiate. Associated signs and symptoms: Pertinent negatives: abdominal pain, cough, nausea, palpitations, shortness of breath, vomiting. The chest pain is described as aching. Duration: The patient or guardian reports a single episode, that is still ongoing. Modifying factors: the symptoms are aggravated by cough, deep breath, palpation of area, Movement of right shoulder and arm. Severity of pain:. The patient has not recently seen a physician, the patient's primary care provider is Dr. Adele York. 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 LMP N/A - Hysterectomy ao Historical: - Allergies: 21:53 Aspirin; ao 21:53 Demerol; ao 21:53 Dilaudid; ao 21:53 Iodinated Contrast Media - IV Dye; ao 21:53 Iodine; ao 21:53 Morphine; ao 21:53 Mucinex; ao 21:53 NSAIDS; ao 21:53 PENICILLINS; ao - Home Meds: 21:53 albuterol sulfate 2.5 mg /3 mL (0.083 %) Inhl nebu 3 mL 4 times per day [Active]; ao Ambien 10 mg Oral tab nightly for Sleep-Onset Insomnia [Active]; Breo Ellipta 100-25 mcg/dose inhalation dsdv 1 puff once daily [Active]; diazepam 10 mg Oral tab 1 tab 4 times per day [Active]; Equetro 300 mg Oral CM12 1 cap 2 times per day [Active]; ProAir HFA 90 mcg/actuation inhalation HFAA 1 puff every 4-6 hours [Active]; Risperdal 2 mg Oral tab once daily [Active]; Xopenex Inhl [Active]; - PMHx: 21:53 Asthma; Bipolar disorder; Bronchitis; COPD; Depression; kidney cancer; ao - PSHx: 21:53 None; ao - Immunization history:: Adult Immunizations up to date. - Social history:: Smoking status: Patient uses tobacco products, smokes one pack cigarettes per day. - Ebola Screening: : Patient negative for fever greater than or equal to 101.5 degrees Fahrenheit, and additional compatible Ebola Virus Disease symptoms Patient denies exposure to infectious person Patient denies travel to an Ebola-affected area in the 21 days before illness onset. ROS: 22:00 Constitutional: Negative for fever, chills, and weight loss, Eyes: Negative for injury, pm1 pain, redness, and discharge, ENT: Negative for injury, pain, and discharge, Neck: Negative for injury, pain, and swelling. 22:00 Respiratory: Negative for shortness of breath, cough, wheezing, and pleuritic chest pain, Abdomen/GI: Negative for abdominal pain, nausea, vomiting, diarrhea, and constipation, Back: Negative for injury and pain, : Negative for injury, bleeding, discharge, and swelling, MS/Extremity: Negative for injury and deformity, Skin: Negative for injury, rash, and discoloration, Neuro: Negative for headache, weakness, numbness, tingling, and seizure. 22:00 Cardiovascular: Positive for chest pain, Negative for edema, orthopnea, palpitations. Exam: 22:00 Constitutional: This is a well developed, well nourished patient who is awake, alert, pm1 and in no acute distress. Head/Face: Normocephalic, atraumatic. Eyes: Pupils equal round and reactive to light, extra-ocular motions intact. Lids and lashes normal. Conjunctiva and sclera are non-icteric and not injected. Cornea within normal limits. Periorbital areas with no swelling, redness, or edema. ENT: Nares patent. No nasal discharge, no septal abnormalities noted. Tympanic membranes are normal and external auditory canals are clear. Oropharynx with no redness, swelling, or masses, exudates, or evidence of obstruction, uvula midline. Mucous membranes moist. Neck: Trachea midline, no thyromegaly or masses palpated, and no cervical lymphadenopathy. Supple, full range of motion without nuchal rigidity, or vertebral point tenderness. No Meningismus. 22:00 Cardiovascular: Regular rate and rhythm with a normal S1 and S2. No gallops, murmurs, or rubs. Normal PMI, no JVD. No pulse deficits. Respiratory: Lungs have equal breath sounds bilaterally, clear to auscultation and percussion. No rales, rhonchi or wheezes noted. No increased work of breathing, no retractions or nasal flaring. Abdomen/GI: Soft, non-tender, with normal bowel sounds. No distension or tympany. No guarding or rebound. No evidence of tenderness throughout. Back: No spinal tenderness. No costovertebral tenderness. Full range of motion. Skin: Warm, dry with normal turgor. Normal color with no rashes, no lesions, and no evidence of cellulitis. MS/ Extremity: Pulses equal, no cyanosis. Neurovascular intact. Full, normal range of motion. 22:00 Chest/axilla: Inspection: normal, Palpation: tenderness, of the anterior aspect of right upper chest, that totally reproduces the patient's complaints, Symptoms reproduced with rotating right shoulder and deep breathing. 22:00 Neuro: Orientation: is normal, Motor: is normal, moves all fours, Sensation: is normal, no obvious gross deficits. Vital Signs: 21:53 BP 116 / 76; Pulse 71; Resp 20; Temp 98.3(O); Pulse Ox 98% on R/A; Weight 166.01 kg ao (R); Height 5 ft. 5 in. (165.10 cm) (R); Pain 10/10; 23:04 BP 119 / 76; Pulse 70; Resp 18; Pulse Ox 100% on R/A; mg2 10/21 00:40 BP 107 / 89; Pulse 74; Resp 18; Pulse Ox 100% on R/A; mg2 01:40 BP 131 / 79; Pulse 72; Resp 16; Pulse Ox 100% on 3 lpm NC; ao 10/20 21:53 Body Mass Index 60.90 (166.01 kg, 165.10 cm) ao MDM: 10/20 21:54 Patient medically screened. pm1 10/21 01:14 Data reviewed: vital signs. Data interpreted: Pulse oximetry: on room air is 100 %. pm1 Interpretation: normal. Counseling: I had a detailed discussion with the patient and/or guardian regarding: the historical points, exam findings, and any diagnostic results supporting the discharge/admit diagnosis, lab results, radiology results, the need for outpatient follow up, to return to the emergency department if symptoms worsen or persist or if there are any questions or concerns that arise at home. 10/20 21:55 Order name: Basic Metabolic Panel; Complete Time: 00:35 pm10/20 21:55 Order name: CBC with Diff; Complete Time: 23:32 pm1 10/20 21:55 Order name: Ckmb; Complete Time: 00:35 pm10/20 21:55 Order name: CPK; Complete Time: 00:35 pm10/20 21:55 Order name: LFT's; Complete Time: 00:35 pm10/20 21:55 Order name: Magnesium; Complete Time: 00:35 pm10/20 21:55 Order name: PT-INR; Complete Time: 00:35 pm10/20 21:55 Order name: Ptt, Activated; Complete Time: 00:35 pm1 10/20 21:55 Order name: Troponin (emerg Dept Use Only); Complete Time: 23:32 pm10/20 21:55 Order name: XRAY Chest (1 view) pm10/20 23:32 Order name: Urine Dipstick--Ancillary (enter results); Complete Time: 00:35 eb 10/20 23:32 Order name: Urine --Ancillary (enter results); Complete Time: 00:35 eb 10/20 21:55 Order name: Urine Test (obtain specimen); Complete Time: 23:29 pm1 10/20 21:55 Order name: EKG; Complete Time: 21:55 pm10/20 21:55 Order name: Cardiac monitoring; Complete Time: 22:12 pm10/20 21:55 Order name: EKG - Nurse/Tech; Complete Time: 22:12 pm10/20 21:55 Order name: IV Saline Lock; Complete Time: 22:52 pm10/20 21:55 Order name: Labs collected and sent; Complete Time: 22:52 pm10/20 21:55 Order name: O2 Per Protocol; Complete Time: 22:52 pm10/20 21:55 Order name: O2 Sat Monitoring; Complete Time: 22:52 pm10/20 21:55 Order name: Urine Dipstick-Ancillary (obtain specimen); Complete Time: 23:28 pm1 Administered Medications: 10/20 22:51 Drug: fentaNYL (PF) 50 mcg Route: IVP; Site: left antecubital; ao 10/21 01:36 Follow up: Response: No adverse reaction ao 00:00 Drug: Demerol 50 mg Route: IVP; Site: left antecubital; ao 01:36 Follow up: Response: No adverse reaction ao 00:20 Drug: Phenergan 12.5 mg Route: IVP; Site: left antecubital; ao 02:08 Follow up: Response: No adverse reaction ao 01:20 Drug: Phenergan 12.5 mg Route: IVP; Site: left antecubital; ao 02:08 Follow up: Response: No adverse reaction ao 01:36 Drug: Demerol 50 mg Route: IVP; Site: left antecubital; ao 01:36 Follow up: Response: Medication administered at discharge. ao Disposition: 15:37 Co-signature as Attending Physician, Abhi Mccall MD I agree with the assessment and marnie plan of care. Disposition: 10/21/17 01:15 Discharged to Home. Impression: Chest pain, unspecified, Pain in right shoulder. - Condition is Stable. - Discharge Instructions: Nonspecific Chest Pain, Shoulder Pain. - Medication Reconciliation Form, Thank You Letter, Prescription Opioid Use form. - Follow up: Emergency Department; When: As needed; Reason: Worsening of condition. Follow up: Private Physician; When: 2 - 3 days; Reason: Recheck today's complaints, Continuance of care, Re-evaluation by your physician. - Problem is new. - Symptoms have improved. Signatures: Dispatcher [employer] EDAbhi Zacarias MD MD cha Ortiz, Alex, RN RN Santos Ghosh NP ALUMINUM BOATS ASSEMBLER pm1 Corrections: (The following items were deleted from the chart) 01:15 01:15 10/21/2017 01:15 Discharged to Home. Impression: Chest pain, unspecified. pm1 Condition is Stable. Forms are Medication Reconciliation Form, Thank You Letter, Antibiotic Education, Prescription Opioid Use. Follow up: Emergency Department; When: As needed; Reason: Worsening of condition. Follow up: Private Physician; When: 2 - 3 days; Reason: Recheck today's complaints, Continuance of care, Re-evaluation by your physician. Problem is new. Symptoms have improved. pm1 01:54 01:15 10/21/2017 01:15 Discharged to Home. Impression: Chest pain, unspecified; Pain in ao right shoulder. Condition is Stable. Forms are Medication Reconciliation Form, Thank You Letter, Antibiotic Education, Prescription Opioid Use. Follow up: Emergency Department; When: As needed; Reason: Worsening of condition. Follow up: Private Physician; When: 2 - 3 days; Reason: Recheck today's complaints, Continuance of care, Re-evaluation by your physician. Problem is new. Symptoms have improved. pm1 02:08 01:54 10/21/2017 01:15 Discharged to Home. Impression: Chest pain, unspecified; Pain in ao right shoulder. Condition is Stable. Discharge Instructions: Nonspecific Chest Pain, Shoulder Pain. Forms are Medication Reconciliation Form, Thank You Letter, Prescription Opioid Use. Follow up: Emergency Department; When: As needed; Reason: Worsening of condition. Follow up: Private Physician; When: 2 - 3 days; Reason: Recheck today's complaints, Continuance of care, Re-evaluation by your physician. Problem is new. Symptoms have improved. ao
--- NOTE | 2017-10-21 01:16 | ER ---
Nurse's Notes [facility] Name: Oleg Rosenberg Age: 47 yrs Sex: Female : 1970 Arrival Date: 10/20/2017 Time: 21:44 Bed 4 Private MD: Diagnosis: Chest pain, unspecified;Pain in right shoulder Presentation: 10/20 21:44 Presenting complaint: EMS states: Patient complains of chest pain that started 30 min mg2 RENAL NURSE. Pain described in th sternal area in 02/09. Transition of care: patient was not received from another setting of care. Onset of symptoms is unknown. Risk Assessment: Do you want to hurt yourself or someone else? Patient reports no desire to harm self or others. Initial Sepsis Screen: Does the patient meet any 2 criteria? Does the patient have a suspected source of infection? No. Patient's initial sepsis screen is negative. Care prior to arrival: None. 21:44 Method Of Arrival: EMS: [facility] mg2 21:44 Acuity: AAYUSH 3 mg2 DATABASE REPORTING CONSULTANT: 22:00 LMP N/A - Hysterectomy ao Historical: - Allergies: 21:53 Aspirin; ao 21:53 Demerol; ao 21:53 Dilaudid; ao 21:53 Iodinated Contrast Media - IV Dye; ao 21:53 Iodine; ao 21:53 Morphine; ao 21:53 Mucinex; ao 21:53 NSAIDS; ao 21:53 PENICILLINS; ao - Home Meds: 21:53 albuterol sulfate 2.5 mg /3 mL (0.083 %) Inhl nebu 3 mL 4 times per day [Active]; ao Ambien 10 mg Oral tab nightly for Sleep-Onset Insomnia [Active]; Breo Ellipta 100-25 mcg/dose inhalation dsdv 1 puff once daily [Active]; diazepam 10 mg Oral tab 1 tab 4 times per day [Active]; Equetro 300 mg Oral CM12 1 cap 2 times per day [Active]; ProAir HFA 90 mcg/actuation inhalation HFAA 1 puff every 4-6 hours [Active]; Risperdal 2 mg Oral tab once daily [Active]; Xopenex Inhl [Active]; - PMHx: 21:53 Asthma; Bipolar disorder; Bronchitis; COPD; Depression; kidney cancer; ao - PSHx: 21:53 None; ao - Immunization history:: Adult Immunizations up to date. - Social history:: Smoking status: Patient uses tobacco products, smokes one pack cigarettes per day. - Ebola Screening: : Patient negative for fever greater than or equal to 101.5 degrees Fahrenheit, and additional compatible Ebola Virus Disease symptoms Patient denies exposure to infectious person Patient denies travel to an Ebola-affected area in the 21 days before illness onset. Screenin:58 Abuse screen: Denies threats or abuse. Denies injuries from another. Nutritional ao screening: No deficits noted. Tuberculosis screening: No symptoms or risk factors identified. Fall Risk None identified. Assessment: 21:54 General: Appears in no apparent distress. comfortable, Behavior is agitated, anxious. ao Pain: Complains of pain in chest Pain radiates to back Pain currently is 10 out of 10 on a pain scale. Pain began 2 hours ago. Neuro: Level of Consciousness is awake, alert, obeys commands, Oriented to person, place, time, situation, Appropriate for age Moves all extremities. Full function Speech is normal, Facial symmetry appears normal. Cardiovascular: Reports chest pain, shortness of breath, Heart tones S1 S2 Capillary refill < 3 seconds Patient's skin is warm and dry. Respiratory: Airway is patent Respiratory effort is even, unlabored, Respiratory pattern is regular. GI: Abdomen is obese. : No signs and/or symptoms were reported regarding the genitourinary system. EENT: No signs and/or symptoms were reported regarding the EENT system. Derm: Skin is intact, Skin is pink, warm \T\ dry. normal, Skin temperature is warm. Musculoskeletal: Range of motion: intact in all extremities. 23:10 Reassessment: Patient appears in no apparent distress at this time. Patient and/or ao family updated on plan of care and expected duration. Pain level reassessed. Patient is alert, oriented x 3, equal unlabored respirations, skin warm/dry/pink. 10/21 00:30 Reassessment: Patient appears in no apparent distress at this time. Patient and/or ao family updated on plan of care and expected duration. Pain level reassessed. Patient is alert, oriented x 3, equal unlabored respirations, skin warm/dry/pink. 01:10 Reassessment: Patient appears in no apparent distress at this time. Patient and/or ao family updated on plan of care and expected duration. Pain level reassessed. Patient is alert/active/playful, equal unlabored respirations, skin warm/dry/pink. 01:53 Reassessment: DC instructions given to patient. patient agree to follow up with the PCP.ao Vital Signs: 10/20 21:53 BP 116 / 76; Pulse 71; Resp 20; Temp 98.3(O); Pulse Ox 98% on R/A; Weight 166.01 kg ao (R); Height 5 ft. 5 in. (165.10 cm) (R); Pain 10/10; 23:04 BP 119 / 76; Pulse 70; Resp 18; Pulse Ox 100% on R/A; mg2 10/21 00:40 BP 107 / 89; Pulse 74; Resp 18; Pulse Ox 100% on R/A; mg2 01:40 BP 131 / 79; Pulse 72; Resp 16; Pulse Ox 100% on 3 lpm NC; ao 10/20 21:53 Body Mass Index 60.90 (166.01 kg, 165.10 cm) ao ED Course: 10/20 21:44 Patient arrived in ED. mg2 21:46 Triage completed. mg2 21:50 Olman Justice, HARDIK is Primary Nurse. ao 21:51 Santos Fierro NP is PHCP. pm1 21:51 Abhi Mccall MD is Attending Physician. pm1 21:54 Arm band placed on right wrist. Patient placed in an exam room, on a stretcher, on ao oxygen, on pulse oximetry, Patient notified of wait time. 21:58 Patient has correct armband on for positive identification. Pulse ox on. NIBP on. ao 22:00 Patient maintains SpO2 saturation greater than 95% on room air. ao 22:37 X-ray completed. Portable x-ray completed in exam room. Patient tolerated procedure ml well. 22:38 XRAY Chest (1 view) In Process Unspecified. EDMS 22:52 Inserted saline lock: 20 gauge in left antecubital area, using aseptic technique. ao ,using aseptic technique. Guided Ultrasound IV Blood collected. 10/21 01:51 No provider procedures requiring assistance completed. IV discontinued, intact, ao bleeding controlled, No redness/swelling at site. Pressure dressing applied. 02:05 Primary Nurse role handed off by Olman Justice, HARDIK ao Administered Medications: 06/20 22:51 Drug: fentaNYL (PF) 50 mcg Route: IVP; Site: left antecubital; ao 10/21 01:36 Follow up: Response: No adverse reaction ao 00:00 Drug: Demerol 50 mg Route: IVP; Site: left antecubital; ao 01:36 Follow up: Response: No adverse reaction ao 00:20 Drug: Phenergan 12.5 mg Route: IVP; Site: left antecubital; ao 02:08 Follow up: Response: No adverse reaction ao 01:20 Drug: Phenergan 12.5 mg Route: IVP; Site: left antecubital; ao 02:08 Follow up: Response: No adverse reaction ao 01:36 Drug: Demerol 50 mg Route: IVP; Site: left antecubital; ao 01:36 Follow up: Response: Medication administered at discharge. ao Outcome: 01:15 Discharge ordered by . pm1 01:51 Discharged to home ambulatory. ao 01:51 Condition: stable 01:51 Discharge instructions given to patient, Instructed on discharge instructions, follow up and referral plans. Demonstrated understanding of instructions, follow-up care, medications. 01:54 Patient left the ED. ao 02:08 Patient left the ED. ao Signatures: Dispatcher [employer] Vero Barksdale Alex RN RN Santos Ghosh NP HEAD TURBINE OPERATOR pm1 El Barrett RN RN mg2
[2017-10-21] MEDS ORDERED: MEPERIDINE HCL 50 MG/ML AMP ONE (01:27)
[2017-10-21] MEDS ORDERED: PROMETHAZINE 25 MG/ML VIAL ONE (01:41)
[2017-10-21 02:57] VITALS: O2SAT 100
[2017-10-21 04:05] VITALS: TEMP 98.7
[2017-10-21 04:07] VITALS: BP 143/87
--- NOTE | 2017-10-21 06:36 | EKG ---
Test Date: 2017-10-20 Test Time: 22:08:30 Cardio Clinician: CARMELO MEASUREMENT RESULTS: Intervals: Rate: 66 OK: 154 QRSD: 86 QT: 412 QTc: 431 [place]: P: 16 OK: 154 QRS: 37 T: 73 INTERPRETIVE STATEMENTS: Normal sinus rhythm with sinus arrhythmia Normal ECG Compared to ECG 08/27/2017 13:25:26 Sinus bradycardia no longer present Electronically Signed On 10-21-17 06:36:06 CDT by Dwayne Thomas
--- NOTE | 2017-10-21 08:16 | RAD REPORT ---
EXAM DESCRIPTION: RAD - Chest Single View - 10/20/2017 10:40 pm CLINICAL HISTORY: CHEST PAIN Chest pain. COMPARISON: Chest Single View dated 08/31/2017; Chest Single View dated 08/27/2017; Chest Single View d ated 07/28/2017; Chest Single View dated 07/03/2017 FINDINGS: Portable technique limits examination quality. The lungs are grossly clear. The heart is upper limit normal in size. No displaced fractures. IMPRESSION: No acute intrathoracic process suspected.
== END 2017-10-21 02:08 | disposition home or self-care (01) ==
LOC: ER 21:35
DX: R07.9 Chest pain, unspecified (principal); M25.511 Pain in right shoulder; J44.9 Chronic obstructive pulmonary disease, unspecified; C64.9 Malignant neoplasm of unspecified kidney, except renal pelvis; F17.210 Nicotine dependence, cigarettes, uncomplicated; Z88.0 Allergy status to penicillin; Z88.8 Allergy status to other drugs, medicaments and biological substances; Z88.6 Allergy status to analgesic agent; Z91.041 Radiographic dye allergy status
CPT/HCPCS: 36415; 71045; 80048; 80076; 81003; 81025; 82550; 82553; 83735; 84484; 85025; 85610; 85730; 93005; 96374; 96375; 99284; J2175; J2550; J3010

== ENCOUNTER 2017-10-29 20:48 | Emergency (ER) | payer OTHER ==
[2017-10-29] MEDS ORDERED: ALBUTEROL 2.5 MG/3 ML NEB SOL ONE ×2 (21:10→23:33)
[2017-10-29] MEDS ORDERED: METHYLPREDNISOLONE 125 MG INJ ONE ×2 (21:10→22:46)
[2017-10-29] MEDS ORDERED: MEPERIDINE HCL 50 MG/ML AMP ONE ×2 (22:40→23:33)
[2017-10-29] MEDS ORDERED: ONDANSETRON 4 MG/2 ML VIAL ONE (22:40)
[2017-10-29] MEDS ORDERED: Magnesium Sulfate 2gm IVPB 2 G/50 ML BAG IV ONE (22:41)
[2017-10-29 23:00] LABS: Absolute Lymphocytes (CBC) 2.3 K/uL (0.7-4.9); Absolute Monocytes 0.5 K/uL (0.1-1.3); Absolute Neutrophil 4.6 K/uL (1.8-8.0); Basophils % 0.6 % (0-1.3); Eosinophils % 1.2 % (0-4.4); Hematocrit 35.6 % (36.0-45.0); Lymphocytes % 30.5 % (15.3-44.8); MCH 31.4 pg (27.0-35.0); MCV 98.4 fL (80-100); MPV 8.6 fL (7.6-11.3); RBC Red Blood Cell Count 3.62 M/uL (3.86-4.86)
[2017-10-29 23:01] LABS: Protime INR 0.94
[2017-10-29 23:18] LABS: ALT/SGPT 15 U/L (12-78); AST/SGOT 15 U/L (15-37); Albumin 3.2 g/dL (3.4-5.0); Alkaline Phosphatase 74 U/L (45-117); BUN Blood Urea Nitrogen 12 mg/dL (7-18); Bicarbonate 32 mmol/L (21-32); Bilirubin Direct < 0.1 mg/dL (0-0.2); Glucose Level 93 mg/dL (74-106); Lipase 95 U/L (73-393); Magnesium 2.1 mg/dL (1.8-2.4); NT PRO-BNP 104 pg/mL (<125); Protein, Total 6.4 g/dL (6.4-8.2); Sodium Level 142 mmol/L (136-145)
[2017-10-29 23:29] LABS: Bilirubin Total < 0.1 mg/dL (0.2-1.0)
--- NOTE | 2017-10-30 00:39 | EDPHYS ---
Physician Documentation [facility] Name: Oleg Rosenberg Age: 47 yrs Sex: Female : 1970 Arrival Date: 10/29/2017 Time: 20:50 Bed 7 Private MD: Diana Duran ED Physician Nicola Goldsmith HPI: 10/30 11:50 This 47 yrs old Female presents to ER via EMS with complaints of Shortness Of wa Breath. 11:50 The patient has shortness of breath at rest. Onset: The symptoms/episode began/occurred wa 8 hour(s) ago. Duration: The symptoms are continuous, and are steadily getting worse. The patient's shortness of breath is aggravated by coughing, is alleviated by nothing. Associated signs and symptoms: Pertinent positives: non-productive cough, Pertinent negatives: chest pain. Severity of symptoms: At their worst the symptoms were moderate in the emergency department the symptoms are worse moderately. The patient has experienced similar episodes in the past, multiple times. The patient has not recently seen a physician. 11:59 The patient has shortness of breath that occurred at home. wa Historical: - Allergies: 10/29 21:00 Aspirin; tl2 21:00 Demerol; tl2 21:00 Dilaudid; tl2 21:00 Iodinated Contrast Media - IV Dye; tl2 21:00 Iodine; tl2 21:00 Morphine; tl2 21:00 Mucinex; tl2 21:00 NSAIDS; tl2 21:00 PENICILLINS; tl2 - Home Meds: 21:00 albuterol sulfate 2.5 mg /3 mL (0.083 %) Inhl nebu 3 mL 4 times per day [Active]; tl2 Ambien 10 mg Oral tab nightly for Sleep-Onset Insomnia [Active]; Breo Ellipta 100-25 mcg/dose inhalation dsdv 1 puff once daily [Active]; diazepam 10 mg Oral tab 1 tab 4 times per day [Active]; Equetro 300 mg Oral CM12 1 cap 2 times per day [Active]; ProAir HFA 90 mcg/actuation inhalation HFAA 1 puff every 4-6 hours [Active]; Risperdal 2 mg Oral tab once daily [Active]; Xopenex Inhl [Active]; - PMHx: 21:00 Asthma; Bipolar disorder; Bronchitis; COPD; Depression; kidney cancer; tl2 - Immunization history:: Adult Immunizations up to date. - Social history:: Smoking status: Patient/guardian denies using tobacco. - Ebola Screening: : No symptoms or risks identified at this time. - Family history:: not pertinent. - Hospitalizations: : No recent hospitalization is reported. ROS: 10/30 11:51 Constitutional: Negative for fever, chills, and weight loss, Eyes: Negative for injury, wa pain, redness, and discharge, ENT: Negative for injury, pain, and discharge, Neck: Negative for injury, pain, and swelling, Cardiovascular: Negative for chest pain, palpitations, and edema, Abdomen/GI: Negative for abdominal pain, nausea, vomiting, diarrhea, and constipation, Back: Negative for injury and pain, : Negative for injury, bleeding, discharge, and swelling, MS/Extremity: Negative for injury and deformity, Skin: Negative for injury, rash, and discoloration, Neuro: Negative for headache, weakness, numbness, tingling, and seizure, Psych: Negative for depression, anxiety, suicide ideation, homicidal ideation, and hallucinations. Respiratory: Positive for cough, shortness of breath, on exertion. All other systems are negative. Exam: 11:52 Constitutional: This is a well developed, well nourished patient who is awake, alert, wa and in no acute distress. Head/Face: Normocephalic, atraumatic. Eyes: Pupils equal round and reactive to light, extra-ocular motions intact. Lids and lashes normal. Conjunctiva and sclera are non-icteric and not injected. Cornea within normal limits. Periorbital areas with no swelling, redness, or edema. ENT: Nares patent. No nasal discharge, no septal abnormalities noted. Tympanic membranes are normal and external auditory canals are clear. Oropharynx with no redness, swelling, or masses, exudates, or evidence of obstruction, uvula midline. Mucous membranes moist. Neck: Trachea midline, no thyromegaly or masses palpated, and no cervical lymphadenopathy. Supple, full range of motion without nuchal rigidity, or vertebral point tenderness. No Meningismus. Chest/axilla: Normal chest wall appearance and motion. Nontender with no deformity. No lesions are appreciated. Cardiovascular: Regular rate and rhythm with a normal S1 and S2. No gallops, murmurs, or rubs. Normal PMI, no JVD. No pulse deficits. Abdomen/GI: Soft, non-tender, with normal bowel sounds. No distension or tympany. No guarding or rebound. No evidence of tenderness throughout. Back: No spinal tenderness. No costovertebral tenderness. Full range of motion. Skin: Warm, dry with normal turgor. Normal color with no rashes, no lesions, and no evidence of cellulitis. MS/ Extremity: Pulses equal, no cyanosis. Neurovascular intact. Full, normal range of motion. Neuro: Awake and alert, GCS 15, oriented to person, place, time, and situation. Cranial nerves II-XII grossly intact. Motor strength 5/5 in all extremities. Sensory grossly intact. Cerebellar exam normal. Normal gait. Psych: Awake, alert, with orientation to person, place and time. Behavior, mood, and affect are within normal limits. 11:52 Respiratory: the patient does not display signs of respiratory distress, Respirations: intercostal retractions, Breath sounds: wheezing: expiratory that is moderate, Respiratory rate: increased Vital Signs: 10/29 21:00 BP 125 / 71; Pulse 61; Resp 24; Temp 98.1; Pulse Ox 99% on 4 lpm NC; Weight 136.08 kg; tl2 Height 5 ft. 6 in. (167.64 cm); Pain 7/10; 21:59 BP 126 / 70; Pulse 57; Resp 20; Pulse Ox 99% on 4 lpm NC; tl2 22:46 BP 131 / 74; Pulse 61; Resp 20; Pulse Ox 99% on 4 lpm NC; tl2 10/30 00:51 BP 109 / 72; Pulse 66; Resp 18; Pulse Ox 98% on 4 lpm NC; tl2 10/29 21:00 Body Mass Index 48.42 (136.08 kg, 167.64 cm) tl2 MDM: 10/29 20:52 Patient medically screened. wi 10/30 11:52 Differential diagnosis: asthma, Bronchitis CHF exacerbation, Chronic Obstructive wa Pulmonary Disease reactive airway disease. Data reviewed: vital signs, nurses notes, lab test result(s), EKG, radiologic studies. Test interpretation: by ED physician or midlevel provider: CXR negative for acute process. labs noted wnl. EKG nml. . Response to treatment: the patient's symptoms have markedly improved after treatment, did very well. at time of d/c, was speaking in full sentences. states felt much better. wheezing and cough resolved prior to d/c. 10/29 20:54 Order name: Blood Culture Adult (2) wi 10/29 20:54 Order name: BMP; Complete Time: 00:36 wi 10/29 20:54 Order name: CBC with Diff; Complete Time: 00:36 wi 10/29 20:54 Order name: Hepatic Function; Complete Time: 00:36 wi 10/29 20:54 Order name: Lipase; Complete Time: 00:36 wi 10/29 20:54 Order name: Magnesium; Complete Time: 00:36 wi 10/29 20:54 Order name: XRAY Chest Pa And Lat (2 Views) wi 10/29 20:54 Order name: NT PRO-BNP; Complete Time: 00:36 wi 10/29 20:54 Order name: PT-INR; Complete Time: 00:36 wi 10/29 20:54 Order name: Troponin (emerg Dept Use Only); Complete Time: 00:36 wi 10/30 00:19 Order name: Urine Dipstick--Ancillary (enter results) 10/29 20:54 Order name: EKG; Complete Time: 20:55 wi 10/29 20:54 Order name: Cardiac monitoring; Complete Time: 21:37 wi 10/29 20:54 Order name: EKG - Nurse/Tech; Complete Time: 21:37 wi 10/29 20:54 Order name: IV Saline Lock; Complete Time: 22:48 wi 10/29 20:54 Order name: Labs collected and sent; Complete Time: 22:48 wi 10/29 20:54 Order name: O2 Per Protocol; Complete Time: 21:43 wi 10/29 20:54 Order name: O2 Sat Monitoring; Complete Time: 21:43 wi Administered Medications: 10/29 21:42 Drug: Albuterol 1.25 mg Route: Inhalation; 21:43 Drug: Albuterol 1.25 mg Route: Inhalation; 22:25 Not Given (Physician Discretion): morphine 4 mg IVP once wi 22:47 Drug: Magnesium Sulfate 2 grams Route: IVPB; Infused Over: 2 hrs; Site: right upper arm;10/30 00:55 Follow up: IV Status: Completed infusion 10/29 22:47 Drug: Zofran 2 mg Route: IVP; Site: right upper arm; tl2 10/30 00:55 Follow up: Response: No adverse reaction; Nausea is decreased tl2 10/29 22:47 Drug: Demerol 50 mg Route: IVP; Site: right upper arm; tl2 10/30 00:55 Follow up: Response: No adverse reaction; Pain is decreased tl2 10/29 22:48 Drug: SOLU-Medrol 125 mg Route: IVP; Site: right upper arm; tl2 10/30 00:55 Follow up: Response: Marked relief of symptoms tl2 10/29 23:38 Drug: Albuterol 2.5 mg Route: Inhalation; tl2 23:38 Drug: Demerol 50 mg Route: IVP; Site: right upper arm; tl2 10/30 00:56 Follow up: Response: No adverse reaction; Pain is decreased tl2 Disposition: 10/30/17 00:39 Discharged to Home. Impression: Acute asthma exacerbation, dyspnea. - Condition is Stable. - Discharge Instructions: Asthma, Acute Bronchospasm. - Prescriptions for Prednisone 20 mg Oral Tablet - take 2 tablet by ORAL route once daily for 5 days; 10 tablet. - Medication Reconciliation Form, Thank You Letter, Antibiotic Education, Prescription Opioid Use form. - Follow up: Private Physician; When: 2 - 3 days; Reason: Re-evaluation by your physician. - Problem is an acute exacerbation. - Symptoms have improved. - Notes: use your albuterol as discussed. take prednisone as prescribed. see your doctor for further evaluation within 2-3 days Signatures: Dispatcher [employer] EDMA Vidya Landaverde RN RN tl2 Nicola Goldsmith MD MD wa Corrections: (The following items were deleted from the chart) 00:56 00:39 10/30/2017 00:39 Discharged to Home. Impression: Acute asthma exacerbation; tl2 dyspnea. Condition is Stable. Forms are Medication Reconciliation Form, Thank You Letter, Antibiotic Education, Prescription Opioid Use. Follow up: Private Physician; When: 2 - 3 days; Reason: Re-evaluation by your physician. Problem is an acute exacerbation. Symptoms have improved. wa
--- NOTE | 2017-10-30 00:39 | ER ---
Nurse's Notes [facility] Name: Oleg Rosenberg Age: 47 yrs Sex: Female : 1970 Arrival Date: 10/29/2017 Time: 20:50 Bed 7 Private MD: Diana Duran Diagnosis: Acute asthma exacerbation;dyspnea Presentation: 10/29 20:55 Presenting complaint: EMS states: Difficulty breathing x 8 hours. Hx of asthma and tl2 COPD. Pt is 99% on 4 L O2, which is what she uses at home every day. Transition of care: patient was not received from another setting of care. Onset of symptoms was October 29, 2017 at 12:00. Risk Assessment: Do you want to hurt yourself or someone else? Patient reports no desire to harm self or others. Initial Sepsis Screen: Does the patient meet any 2 criteria? No. Patient's initial sepsis screen is negative. Does the patient have a suspected source of infection? No. Patient's initial sepsis screen is negative. Care prior to arrival: None. 20:55 Method Of Arrival: EMS: [facility] tl2 20:55 Acuity: AAYUSH 3 tl2 Triage Assessment: 21:00 General: Appears in no apparent distress. uncomfortable, Behavior is calm, cooperative, tl2 appropriate for age. Pain: Complains of pain in headache. Neuro: Level of Consciousness is awake, alert, obeys commands, Oriented to person, place, time, situation. Cardiovascular: Denies chest pain. Respiratory: Reports shortness of breath cough that is Airway is patent Respiratory effort is even, labored, Respiratory pattern is regular, symmetrical, Breath sounds with wheezes bilaterally. Onset: The symptoms/episode began/occurred today, the patient has moderate shortness of breath. GI: No signs and/or symptoms were reported involving the gastrointestinal system. : No signs and/or symptoms were reported regarding the genitourinary system. Derm: Skin is pink, warm \T\ dry. Historical: - Allergies: 21:00 Aspirin; tl2 21:00 Demerol; tl2 21:00 Dilaudid; tl2 21:00 Iodinated Contrast Media - IV Dye; tl2 21:00 Iodine; tl2 21:00 Morphine; tl2 21:00 Mucinex; tl2 21:00 NSAIDS; tl2 21:00 PENICILLINS; tl2 - Home Meds: 21:00 albuterol sulfate 2.5 mg /3 mL (0.083 %) Inhl nebu 3 mL 4 times per day [Active]; tl2 Ambien 10 mg Oral tab nightly for Sleep-Onset Insomnia [Active]; Breo Ellipta 100-25 mcg/dose inhalation dsdv 1 puff once daily [Active]; diazepam 10 mg Oral tab 1 tab 4 times per day [Active]; Equetro 300 mg Oral CM12 1 cap 2 times per day [Active]; ProAir HFA 90 mcg/actuation inhalation HFAA 1 puff every 4-6 hours [Active]; Risperdal 2 mg Oral tab once daily [Active]; Xopenex Inhl [Active]; - PMHx: 21:00 Asthma; Bipolar disorder; Bronchitis; COPD; Depression; kidney cancer; tl2 - Immunization history:: Adult Immunizations up to date. - Social history:: Smoking status: Patient/guardian denies using tobacco. - Ebola Screening: : No symptoms or risks identified at this time. - Family history:: not pertinent. - Hospitalizations: : No recent hospitalization is reported. Screenin:02 Abuse screen: Denies threats or abuse. Nutritional screening: No deficits noted. tl2 Tuberculosis screening: No symptoms or risk factors identified. Fall Risk None identified. Assessment: 21:00 General: see triage assessment. tl2 22:00 Reassessment: Patient appears in no apparent distress at this time. Patient and/or tl2 family updated on plan of care and expected duration. Pain level reassessed. Patient is alert, oriented x 3, equal unlabored respirations, skin warm/dry/pink. unable to obtain IV access, will try again when pt returns from [facility]. 10/30 00:00 Reassessment: Patient appears in no apparent distress at this time. Patient and/or tl2 family updated on plan of care and expected duration. Pain level reassessed. Patient is alert, oriented x 3, equal unlabored respirations, skin warm/dry/pink. 00:10 Reassessment: Patient appears in no apparent distress at this time. Patient and/or tl2 family updated on plan of care and expected duration. Pain level reassessed. Patient is alert, oriented x 3, equal unlabored respirations, skin warm/dry/pink. Pt states she wants to go home, MD notified. 00:51 Reassessment: Pt verbalized understanding of discharge instructions, need for follow up tl2 and prescription usage. Vital Signs: 10/29 21:00 BP 125 / 71; Pulse 61; Resp 24; Temp 98.1; Pulse Ox 99% on 4 lpm NC; Weight 136.08 kg; tl2 Height 5 ft. 6 in. (167.64 cm); Pain 7/10; 21:59 BP 126 / 70; Pulse 57; Resp 20; Pulse Ox 99% on 4 lpm NC; tl2 22:46 BP 131 / 74; Pulse 61; Resp 20; Pulse Ox 99% on 4 lpm NC; tl2 10/30 00:51 BP 109 / 72; Pulse 66; Resp 18; Pulse Ox 98% on 4 lpm NC; tl2 10/29 21:00 Body Mass Index 48.42 (136.08 kg, 167.64 cm) tl2 ED Course: 10/29 20:50 Patient arrived in ED. ds1 20:50 Diana Duran MD is Private Physician. ds1 20:52 Nicola Goldsmith MD is Attending Physician. wa 20:58 Triage completed. tl2 21:00 Arm band placed on right wrist. tl2 21:02 Patient has correct armband on for positive identification. Bed in low position. Call tl2 light in reach. Side rails up X2. 21:06 Jemima Mcwilliams, RN is Primary Nurse. bb 21:15 Radiology exam delayed due to patient receiving breathing treatment at this time. ag1 21:48 Patient moved to radiology via stretcher. ag1 21:48 X-ray completed. Patient tolerated procedure well. ag1 21:49 XRAY Chest Pa And Lat (2 Views) In Process Unspecified. EDMS 22:30 Inserted 18 gauge 10 cm midline to right upper arm basilic vein on first attempt. Line fc with good blood return and flushes well. Blood collected and sent. 10/30 00:51 No provider procedures requiring assistance completed. IV discontinued, intact, tl2 bleeding controlled, No redness/swelling at site. Pressure dressing applied. Administered Medications: 10/29 21:42 Drug: Albuterol 1.25 mg Route: Inhalation; tl2 21:43 Drug: Albuterol 1.25 mg Route: Inhalation; tl2 22:25 Not Given (Physician Discretion): morphine 4 mg IVP once ca 22:47 Drug: Magnesium Sulfate 2 grams Route: IVPB; Infused Over: 2 hrs; Site: right upper arm;tl2 10/30 00:55 Follow up: IV Status: Completed infusion tl2 10/29 22:47 Drug: Zofran 2 mg Route: IVP; Site: right upper arm; tl2 10/30 00:55 Follow up: Response: No adverse reaction; Nausea is decreased 2 10/29 22:47 Drug: Demerol 50 mg Route: IVP; Site: right upper arm; tl2 10/30 00:55 Follow up: Response: No adverse reaction; Pain is decreased tl2 10/29 22:48 Drug: SOLU-Medrol 125 mg Route: IVP; Site: right upper arm; tl2 10/30 00:55 Follow up: Response: Marked relief of symptoms tl2 10/29 23:38 Drug: Albuterol 2.5 mg Route: Inhalation; tl2 23:38 Drug: Demerol 50 mg Route: IVP; Site: right upper arm; tl2 10/30 00:56 Follow up: Response: No adverse reaction; Pain is decreased tl2 Outcome: 00:39 Discharge ordered by . wa 00:51 Discharged to home ambulatory. tl2 00:51 Condition: stable 00:51 Discharge instructions given to patient, Instructed on discharge instructions, follow up and referral plans. medication usage, Demonstrated understanding of instructions, follow-up care, medications, Prescriptions given X 1. 00:56 Patient left the ED. tl2 Signatures: Dispatcher [employer] EDMS Beatrice Abraham RN RN fc Sanford, Demi ds1 Jemima Mcwilliams RN RN bb Gallaway, Ashley ag1 Vidya Landaverde RN RN tl2 Nicola Goldsmith MD MD wa
[2017-10-30 01:00] VITALS: TEMP 98.1
[2017-10-30 01:03] VITALS: BP 109/72; O2SAT 98
[2017-10-30 02:10] LABS: Urine Blood NEGATIVE (NEG); Urine Glucose NEGATIVE (NEG); Urine Protein NEGATIVE (NEG); Urine pH 7.5 (5.0-7.0)
--- NOTE | 2017-10-30 08:31 | RAD REPORT ---
EXAM DESCRIPTION: RAD - Chest Pa And Lat (2 Views) - 10/29/2017 9:53 pm CLINICAL HISTORY: Difficulty breathing, asthma, COPD history, shortness of breath COMPARISON: October 20 TECHNIQUE: PA and lateral views of the chest were obtained. FINDINGS: The lungs are clear of an acute infiltrate, mass or acute failure finding. Patient has chr onic interstitial lung disease that is similar to the short interval comparison study. Moderate hiat al hernia is present. Heart size is normal and central vasculature is within normal limits. No pleur al effusion or pneumothorax seen. No acute bony finding noted. No aortic abnormality. IMPRESSION: Chronic interstitial lung disease with no acute finding identifiable.
--- NOTE | 2017-10-30 08:41 | EKG ---
Test Date: 2017-10-29 Test Time: 21:21:54 Pharmaceutical Laboratory Technician: MANOJ MEASUREMENT RESULTS: Intervals: Rate: 64 MD: 158 QRSD: 76 QT: 414 QTc: 427 [place]: P: 55 MD: 158 QRS: 6 T: 49 INTERPRETIVE STATEMENTS: Normal sinus rhythm Normal ECG Compared to ECG 10/20/2017 22:08:30 Sinus arrhythmia no longer present Electronically Signed On 10-30-17 08:41:22 CDT by Dwayne Thomas
== END 2017-10-30 00:56 | disposition home or self-care (01) ==
LOC: ER 20:48
DX: J45.901 Unspecified asthma with (acute) exacerbation (principal); F31.9 Bipolar disorder, unspecified; F32.9 Major depressive disorder, single episode, unspecified; Z85.528 Personal history of other malignant neoplasm of kidney; Z88.0 Allergy status to penicillin; Z88.5 Allergy status to narcotic agent; Z88.6 Allergy status to analgesic agent; Z91.041 Radiographic dye allergy status; Z91.048 Other nonmedicinal substance allergy status
CPT/HCPCS: 36415; 71046; 80048; 80076; 81003; 83690; 83735; 83880; 84484; 85025; 85610; 87040; 93005; 96365; 96366; 96375; 99284; J2175; J2405; J2930; J3475

== ENCOUNTER 2017-12-13 20:08 | Emergency (ER) | payer OTHER ==
--- NOTE | 2017-12-13 21:05 | EDPHYS ---
Physician Documentation [facility] Name: Oleg Rosenberg Age: 47 yrs Sex: Female : 1970 Arrival Date: 12/13/2017 Time: 20:09 Bed 24 Private MD: ED Physician Héctor Clarke HPI: 12/13 20:44 This 47 yrs old Female presents to ER via Wheelchair with complaints of Leg gs Swelling, Leg Pain. 20:44 The patient presents with pain, that is acute. The complaints affect the left nolasco and gs right leg. Onset: The symptoms/episode began/occurred today. Modifying factors: The symptoms are alleviated by nothing. the symptoms are aggravated by movement. Associated signs and symptoms: Pertinent positives: swelling, Pertinent negatives fever, nausea. Severity of symptoms: At their worst the symptoms were mild, in the emergency department the symptoms are unchanged. 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 - Irregular menses tl3 Historical: - Allergies: 20:24 Aspirin; aj 20:24 Demerol; aj 20:24 Dilaudid; aj 20:24 Iodinated Contrast Media - IV Dye; aj 20:24 Iodine; aj 20:24 Morphine; aj 20:24 Mucinex; aj 20:24 NSAIDS; aj 20:24 PENICILLINS; aj - Home Meds: 20:24 albuterol sulfate 2.5 mg /3 mL (0.083 %) Inhl nebu 3 mL 4 times per day [Active]; aj Ambien 10 mg Oral tab nightly for Sleep-Onset Insomnia [Active]; Breo Ellipta 100-25 mcg/dose inhalation dsdv 1 puff once daily [Active]; diazepam 10 mg Oral tab 1 tab 4 times per day [Active]; Equetro 300 mg Oral CM12 1 cap 2 times per day [Active]; ProAir HFA 90 mcg/actuation inhalation HFAA 1 puff every 4-6 hours [Active]; Risperdal 2 mg Oral tab once daily [Active]; Xopenex Inhl [Active]; - PMHx: 20:24 Bipolar disorder; Asthma; Bronchitis; COPD; Depression; kidney cancer; aj - Immunization history:: Adult Immunizations up to date. - Social history:: Smoking status: Patient/guardian denies using tobacco. - Ebola Screening: : Patient negative for fever greater than or equal to 101.5 degrees Fahrenheit, and additional compatible Ebola Virus Disease symptoms Patient denies exposure to infectious person Patient denies travel to an Ebola-affected area in the 21 days before illness onset No symptoms or risks identified at this time. ROS: 20:44 All other systems are negative. gs Exam: 20:44 Head/Face: Normocephalic, atraumatic. Eyes: Pupils equal round and reactive to light, gs extra-ocular motions intact. Lids and lashes normal. Conjunctiva and sclera are non-icteric and not injected. Cornea within normal limits. Periorbital areas with no swelling, redness, or edema. ENT: Nares patent. No nasal discharge, no septal abnormalities noted. Tympanic membranes are normal and external auditory canals are clear. Oropharynx with no redness, swelling, or masses, exudates, or evidence of obstruction, uvula midline. Mucous membranes moist. Neck: Trachea midline, no thyromegaly or masses palpated, and no cervical lymphadenopathy. Supple, full range of motion without nuchal rigidity, or vertebral point tenderness. No Meningismus. Chest/axilla: Normal chest wall appearance and motion. Nontender with no deformity. No lesions are appreciated. Cardiovascular: Regular rate and rhythm with a normal S1 and S2. No gallops, murmurs, or rubs. Normal PMI, no JVD. No pulse deficits. Respiratory: Lungs have equal breath sounds bilaterally, clear to auscultation and percussion. No rales, rhonchi or wheezes noted. No increased work of breathing, no retractions or nasal flaring. Abdomen/GI: Soft, non-tender, with normal bowel sounds. No distension or tympany. No guarding or rebound. No evidence of tenderness throughout. Back: No spinal tenderness. No costovertebral tenderness. Full range of motion. 20:44 Constitutional: The patient appears alert, awake. 20:44 Skin: cellulitis, that is minimal, that is mild. 20:44 Musculoskeletal/extremity: Pulses: are normal with no appreciated deficits, Calf gs tenderness, is absent, Edema, mild diffuse edema is present. Vital Signs: 20:24 BP 151 / 93; Pulse 92; Resp 26; Temp 98.7(O); Pulse Ox 88% on R/A; Weight 166.47 kg; aj Height 5 ft. 5 in. (165.10 cm) (R); 20:24 Pulse Ox 96% on 4 lpm NC; aj 21:04 BP 112 / 69; Pulse 73; Resp 18; Pulse Ox 96% on R/A; tl3 20:24 Body Mass Index 61.07 (166.47 kg, 165.10 cm) MDM: 20:44 Patient medically screened. 20:44 Data reviewed: vital signs, nurses notes. 22:01 Differential diagnosis: cellulitis dvt us read as negative. 12/13 21:08 Order name: US Extremity Venous W Compression Geo gs Administered Medications: No medications were administered Disposition: 12/13/17 22:02 Discharged to Home. Impression: Cellulitis, unspecified. - Condition is Stable. - Discharge Instructions: Cellulitis, Adult. - Prescriptions for Keflex 500 mg Oral Capsule - take 1 capsule by ORAL route every 6 hours for 7 days; 28 capsule. - Medication Reconciliation Form, Thank You Letter, Antibiotic Education, Prescription Opioid Use form. - Follow up: Private Physician; When: 2 - 3 days; Reason: Re-evaluation by your physician. Signatures: Dispatcher [employer] EDLynn Davila RN RN Héctor Clarke MD MD Regina Bryant RN RN tl3 Corrections: (The following items were deleted from the chart) 21:07 21:04 12/13/2017 21:04 Discharged to Home. Impression: Cellulitis of left lower limb; gs Cellulitis of right lower limb. Condition is Stable. Forms are Medication Reconciliation Form, Thank You Letter, Antibiotic Education, Prescription Opioid Use. Follow up: Private Physician; When: 2 - 3 days; Reason: Re-evaluation by your physician. 22:12 22:02 12/13/2017 22:02 Discharged to Home. Impression: Cellulitis, unspecified. tl3 Condition is Stable. Prescriptions for Keflex 500 mg Oral Capsule - take 1 capsule by ORAL route every 6 hours for 7 days; 28 capsule. and Forms are Medication Reconciliation Form, Thank You Letter, Antibiotic Education, Prescription Opioid Use. Follow up: Private Physician; When: 2 - 3 days; Reason: Re-evaluation by your physician.
--- NOTE | 2017-12-13 21:05 | ER ---
Nurse's Notes [facility] Name: Oleg Rosenberg Age: 47 yrs Sex: Female : 1970 Arrival Date: 12/13/2017 Time: 20:09 Bed 24 Private MD: Diagnosis: Cellulitis, unspecified Presentation: 12/13 20:22 Presenting complaint: Patient states: Bilateral leg swelling for 3 days. Transition of aj care: patient was not received from another setting of care. Onset of symptoms was December 10, 2017. Risk Assessment: Do you want to hurt yourself or someone else? Patient reports no desire to harm self or others. Initial Sepsis Screen: Does the patient meet any 2 criteria? No. Patient's initial sepsis screen is negative. Does the patient have a suspected source of infection? No. Patient's initial sepsis screen is negative. Care prior to arrival: None. 20:22 Method Of Arrival: Wheelchair aj 20:22 Acuity: AAYUSH 3 aj Triage Assessment: 20:24 General: Appears in no apparent distress. comfortable, obese, Behavior is calm, aj cooperative, appropriate for age. Pain: Complains of pain in right leg and left leg. Neuro: Level of Consciousness is awake, alert, obeys commands, Oriented to person, place, time, situation, Appropriate for age. Cardiovascular: Edema is 2+ to left ankle, left foot, left toes, right ankle, right foot and right toes. Respiratory: Reports Home oxygen use Airway is patent Respiratory effort is even, unlabored, Respiratory pattern is symmetrical, tachypnea. GI: No signs and/or symptoms were reported involving the gastrointestinal system. Derm: Skin is intact, is healthy with good turgor, Skin is pink, warm \T\ dry. normal. 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 - Irregular menses tl3 Historical: - Allergies: 20:24 Aspirin; aj 20:24 Demerol; aj 20:24 Dilaudid; aj 20:24 Iodinated Contrast Media - IV Dye; aj 20:24 Iodine; aj 20:24 Morphine; aj 20:24 Mucinex; aj 20:24 NSAIDS; aj 20:24 PENICILLINS; aj - Home Meds: 20:24 albuterol sulfate 2.5 mg /3 mL (0.083 %) Inhl nebu 3 mL 4 times per day [Active]; aj Ambien 10 mg Oral tab nightly for Sleep-Onset Insomnia [Active]; Breo Ellipta 100-25 mcg/dose inhalation dsdv 1 puff once daily [Active]; diazepam 10 mg Oral tab 1 tab 4 times per day [Active]; Equetro 300 mg Oral CM12 1 cap 2 times per day [Active]; ProAir HFA 90 mcg/actuation inhalation HFAA 1 puff every 4-6 hours [Active]; Risperdal 2 mg Oral tab once daily [Active]; Xopenex Inhl [Active]; - PMHx: 20:24 Bipolar disorder; Asthma; Bronchitis; COPD; Depression; kidney cancer; aj - Immunization history:: Adult Immunizations up to date. - Social history:: Smoking status: Patient/guardian denies using tobacco. - Ebola Screening: : Patient negative for fever greater than or equal to 101.5 degrees Fahrenheit, and additional compatible Ebola Virus Disease symptoms Patient denies exposure to infectious person Patient denies travel to an Ebola-affected area in the 21 days before illness onset No symptoms or risks identified at this time. Screenin:04 Abuse screen: Denies threats or abuse. Nutritional screening: No deficits noted. tl3 Tuberculosis screening: No symptoms or risk factors identified. Fall Risk None identified. Assessment: 21:04 General: Appears uncomfortable, obese, well groomed, well developed, well nourished, tl3 Behavior is calm, cooperative, appropriate for age. Pain: Complains of pain in right foot and left foot. Neuro: Level of Consciousness is awake, alert, obeys commands, Oriented to person, place, time, situation, Appropriate for age. Cardiovascular: Patient's skin is warm and dry. Cardiovascular: Patient's skin is warm and dry. Edema. Respiratory: Airway is patent Respiratory effort is even, unlabored, Respiratory pattern is regular, symmetrical. GI: No signs and/or symptoms were reported involving the gastrointestinal system. : No signs and/or symptoms were reported regarding the genitourinary system. EENT: No signs and/or symptoms were reported regarding the EENT system. Derm: No signs and/or symptoms reported regarding the dermatologic system. Musculoskeletal: No signs and/or symptoms reported regarding the musculoskeletal system. Musculoskeletal: No signs and/or symptoms reported regarding the musculoskeletal system. 21:50 Reassessment: No changes from previously documented assessment. Patient and/or family tl3 updated on plan of care and expected duration. Pain level reassessed. Patient is alert, oriented x 3, equal unlabored respirations, skin warm/dry/pink. pt c/o pain to lower legs. Vital Signs: 20:24 BP 151 / 93; Pulse 92; Resp 26; Temp 98.7(O); Pulse Ox 88% on R/A; Weight 166.47 kg; aj Height 5 ft. 5 in. (165.10 cm) (R); 20:24 Pulse Ox 96% on 4 lpm NC; aj 21:04 BP 112 / 69; Pulse 73; Resp 18; Pulse Ox 96% on R/A; tl3 20:24 Body Mass Index 61.07 (166.47 kg, 165.10 cm) aj ED Course: 20:09 Patient arrived in ED. do 20:23 Triage completed. aj 20:24 Arm band placed on left wrist. Patient placed in an exam room. aj 20:25 Héctor Clarke MD is Attending Physician. gs 20:25 Inserted saline lock: 22 gauge in left antecubital area, using aseptic technique. Blood jp3 collected. 20:42 Placed in gown. Bed in low position. Call light in reach. Side rails up X2. Warm jp3 blanket given. Pillow given. Pulse ox on. NIBP on. 21:02 Regina Bryant, RN is Primary Nurse. tl3 21:04 No provider procedures requiring assistance completed. tl3 21:14 Patient taken to ultrasound. marianne 21:50 IV discontinued, intact, bleeding controlled, No redness/swelling at site. Pressure tl3 dressing applied. 21:59 US Extremity Venous W Compression Geo In Process Unspecified. EDMS Administered Medications: No medications were administered Outcome: 21:04 Discharge ordered by . gs 21:50 Discharged to home ambulatory. tl3 21:50 Condition: good 21:50 Discharge instructions given to patient, Instructed on discharge instructions, follow up and referral plans. medication usage, Demonstrated understanding of instructions, follow-up care, medications, Prescriptions given X 1. 22:02 Discharge ordered by . gs 22:12 Patient left the ED. tl3 Signatures: Dispatcher [employer] EDMS Lynn Barrera, RN RN aj Main, LoriJonny Jacques jd, Gregory, MD MD gs Lowrey, Tammy, HARDIK RN tl3 Clement Thao jp3 Corrections: (The following items were deleted from the chart) 22: 22:12 2, Full Term 2, Living 2, LMP N/A - Recent tl3 tl3 22: 21:50 Reassessment: Patient appears in no apparent distress at this time. No changes tl3 from previously documented assessment. Patient and/or family updated on plan of care and expected duration. Pain level reassessed. Patient is alert, oriented x 3, equal unlabored respirations, skin warm/dry/pink. tl3
[2017-12-13] MEDS ORDERED: ACETAMINOPHEN 500 MG TAB ONE (22:06)
[2017-12-13 23:25] VITALS: BP 112/69; O2SAT 96
[2017-12-13 23:26] VITALS: TEMP 98.7
--- NOTE | 2017-12-14 06:32 | RAD REPORT ---
EXAM DESCRIPTION: VAS - Extrem Venous W Compress Geo - 12/13/2017 9:59 pm CLINICAL HISTORY: Bilateral lower extremity pain and swelling Preliminary findings provided at the time of the study. COMPARISON: None. TECHNIQUE: Real-time sonographic evaluation of the bilateral lower extremity deep venous systems was performed. FINDINGS: Normal compressibility, flow augmentation, phasic flow and spontaneous flow are identified in the left and right lower extremity common femoral, superficial femoral, popliteal and posterior t ibeal veins. No intraluminal filling defects seen. IMPRESSION: No DVT in either lower extremity.
== END 2017-12-13 22:12 | disposition home or self-care (01) ==
LOC: ER 20:08
DX: L03.119 Cellulitis of unspecified part of limb (principal); F31.9 Bipolar disorder, unspecified; J44.9 Chronic obstructive pulmonary disease, unspecified; Z88.0 Allergy status to penicillin; Z88.5 Allergy status to narcotic agent; Z88.6 Allergy status to analgesic agent; Z88.8 Allergy status to other drugs, medicaments and biological substances; Z91.041 Radiographic dye allergy status; Z91.048 Other nonmedicinal substance allergy status; Z85.528 Personal history of other malignant neoplasm of kidney
CPT/HCPCS: 93970; 99284

== ENCOUNTER 2018-01-28 17:56 | Emergency (ER) | payer OTHER ==
[2018-01-28] MEDS ORDERED: NA CHLORIDE 0.9% 1,000 ML ONE (18:40)
[2018-01-28] MEDS ORDERED: METOCLOPRAMIDE 10 MG/2mL INJ ONE (18:40)
--- NOTE | 2018-01-28 18:55 | RAD REPORT ---
EXAM DESCRIPTION: CT - Stone Protocol - 01/28/2018 6:43 pm CLINICAL HISTORY: Flank pain. abdominal pain, vomiting COMPARISON: Abdomen Pelvis Wo Contrast dated 08/24/2017 TECHNIQUE: Axial images were obtained without oral or IV contrast. Lack of contrast limits solid org an and vascular assessment. The [id number] spans the entirety of the system partially obscuring uppermost abdomen and lung bases. Coronal reformatted images were obtained and reviewed. All CT scans are performed using dose optimization technique as appropriate and may include automated exposure control or mA/KV adjustment according to patient size. FINDINGS: Mild linear subsegmental atelectasis is present in the right lung base. Moderate axial hia gaby hernia. Imaged portions of the liver and spleen show no suspicious findings on non-contrast imaging. The panc reas and adrenal glands are normal. No pathologic lymphadenopathy in the abdomen or pelvis. No urinary tract stones or obstructive uropathy. Left nephrectomy. No bowel obstruction, free air, free fluid or abscess. Normal appendix noted. No significant bony abnormality. IMPRESSION: No acute abnormality is seen.
[2018-01-28 19:10] LABS: Absolute Lymphocytes (CBC) 1.9 K/uL (0.7-4.9); Absolute Monocytes 0.4 K/uL (0.1-1.3); Absolute Neutrophil 4.6 K/uL (1.8-8.0); Basophils % 0.6 % (0-1.3); Hematocrit 36.4 % (36.0-45.0); Lymphocytes % 26.7 % (15.3-44.8); MCH 32.6 pg (27.0-35.0); MCV 98.2 fL (80-100); MPV 8.4 fL (7.6-11.3); Monocytes % 5.9 % (3.3-12.3); RBC Red Blood Cell Count 3.71 M/uL (3.86-4.86)
[2018-01-28] MEDS ORDERED: DIPHENHYDRAMINE 25 MG TAB/CAP ONE (19:14)
[2018-01-28 19:29] LABS: ALT/SGPT 12 U/L (12-78); AST/SGOT 9 U/L (15-37); Albumin 3.3 g/dL (3.4-5.0); Alkaline Phosphatase 83 U/L (45-117); BUN Blood Urea Nitrogen 8 mg/dL (7-18); Bicarbonate 32 mmol/L (21-32); Bilirubin Direct < 0.1 mg/dL (0-0.2); Bilirubin Total 0.2 mg/dL (0.2-1.0); Glucose Level 85 mg/dL (74-106); Lipase 149 U/L (73-393); Potassium 4.4 mmol/L (3.5-5.1); Protein, Total 6.9 g/dL (6.4-8.2); Sodium Level 139 mmol/L (136-145); Troponin (Emerg Dept Use Only) < 0.02 ng/mL (0.0-0.045)
[2018-01-28 19:35] LABS: Urine Blood NEGATIVE (NEG); Urine Glucose NEGATIVE (NEG); Urine Protein NEGATIVE (NEG)
[2018-01-28] MEDS ORDERED: ALBUTEROL 2.5 MG/3 ML NEB SOL ONE (20:10)
[2018-01-28] MEDS ORDERED: IPRATROPIUM BROM 0.5MG/2.5ML ONE (20:11)
[2018-01-28] MEDS ORDERED: FENTANYL CITR 100 MCG/2 ML ONE (20:22)
--- NOTE | 2018-01-28 20:27 | EDPHYS ---
Physician Documentation [facility] Name: Oleg Rosenberg Age: 47 yrs Sex: Female : 1970 Arrival Date: 01/28/2018 Time: 17:59 Bed 13 Private MD: JAMES Physician Abhi Mccall HPI: 01/28 18:29 This 47 yrs old Female presents to ER via Wheelchair with complaints of jmm Nausea/Vomiting. 18:29 The patient presents to the emergency department with nausea, vomiting, abdominal pain. jmm Onset: The symptoms/episode began/occurred gradually, 3 day(s) ago. Possible causes: unknown. Associated signs and symptoms: Pertinent positives: abdominal pain. This is a 47 year old female with a history of asthma, bipolar, COPD that presents to the ED with generalized abdominal pain, vomiting, beginning approx 3 days ago. Patient states she is currently being evaluated by Dr. Mccracken due to abnormal gastric emptying. Patient denies fever. . 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 - Social history:: Smoking status: Patient/guardian denies using tobacco. - Ebola Screening: : No symptoms or risks identified at this time. ROS: 18:29 Constitutional: Negative for fever, chills, and weight loss, Cardiovascular: Negative jmm for chest pain, palpitations, and edema, Respiratory: Negative for shortness of breath, cough, wheezing, and pleuritic chest pain. 18:29 Back: Negative for injury and pain, MS/Extremity: Negative for injury and deformity, Skin: Negative for injury, rash, and discoloration, Neuro: Negative for headache, weakness, numbness, tingling, and seizure. 18:29 Abdomen/GI: Positive for abdominal pain, nausea and vomiting. 18:29 All other systems are negative. Exam: 18:29 Head/Face: atraumatic. Eyes: EOMI, no conjunctival erythema appreciated ENT: Moist [facility] Mucus Membranes Neck: Trachea midline, Supple Chest/axilla: Normal chest wall appearance and motion. 18:29 Constitutional: The patient appears alert, awake, anxious, uncomfortable. 18:29 Cardiovascular: Rate: normal, Rhythm: regular, Pulses: no pulse deficits are appreciated. 18:29 Respiratory: the patient does not display signs of respiratory distress, Respirations: normal, Breath sounds: are clear throughout. 18:29 Abdomen/GI: Inspection: obese Bowel sounds: normal, Palpation: soft, mild abdominal tenderness, in all quadrants. 18:29 Back: ROM is normal. 18:29 Musculoskeletal/extremity: ROM: intact in all extremities. 18:29 Skin: Appearance: Color: normal in color. 18:29 Neuro: Orientation: is normal, Mentation: is normal, Memory: is normal. 18:29 Psych: Behavior/mood is pleasant, cooperative, anxious. Vital Signs: 18:09 BP 132 / 78; Pulse 77; Resp 22 S; Temp 98.3(TE); Pulse Ox 96% on R/A; Weight 166.01 kg aa5 (R); Height 5 ft. 5 in. (165.10 cm) (R); Pain 10/10; 19:18 BP 133 / 81; Pulse 60; Resp 20 S; Pulse Ox 98% ; ea 20:35 BP 125 / 72; Pulse 60; Resp 18; Temp 98(O); Pulse Ox 97% ; ea 18:09 Body Mass Index 60.90 (166.01 kg, 165.10 cm) aa5 MDM: 18:[address] [facility] 20:23 Data reviewed: vital signs, nurses notes. Counseling: I had a detailed discussion with everardo the patient and/or guardian regarding: the historical points, exam findings, and any diagnostic results supporting the discharge/admit diagnosis, the need for outpatient follow up, to return to the emergency department if symptoms worsen or persist or if there are any questions or concerns that arise at home. 20:28 ED course: Patient is alert and non toxic in appearance in the ED. Ct Abdomen negative [facility] for acute findings. Symptoms may be due to underlying gastroparesis. Patient has no episodes of vomiting in the ED and pain is relieved. Patient given strict return precautions and will otherwise follow up with Dr. Simpson for reevaluation. The patient understood and agrees with the plan of care. . 01/28 18:27 Order name: Basic Metabolic Panel; Complete Time: 19:37 [facility] 01/28 18:27 Order name: CBC with Diff; Complete Time: 19:14 [facility] 01/28 18:27 Order name: Creatinine for Radiology; Complete Time: 19:37 [facility] 01/28 18:27 Order name: Hepatic Function; Complete Time: 19:37 [facility] 01/28 18:27 Order name: Lipase; Complete Time: 19:37 [facility] 01/28 18:27 Order name: Troponin (emerg Dept Use Only); Complete Time: 19:37 [facility] 01/28 18:27 Order name: CT Stone Protocol; Complete Time: 18:58 [facility] 01/28 18:28 Order name: Urine Dipstick--Ancillary (enter results); Complete Time: 19:37 01/28 18:28 Order name: Urine --Ancillary (enter results); Complete Time: 19:37 01/28 18:27 Order name: IV Saline Lock; Complete Time: 19:37 [facility] 01/28 18:27 Order name: Labs collected and sent; Complete Time: 19:37 [facility] 01/28 18:27 Order name: EKG - Nurse/Tech; Complete Time: 19:08 jmm Administered Medications: 19:04 Drug: NS 0.9% 1000 ml Route: IV; Rate: 1 bolus; Site: left antecubital; em 20:15 Follow up: Response: No adverse reaction; IV Status: Completed infusion ea 19:05 Not Given (Other Intervention Used): diphenhydrAMINE 12.5 mg IVP once em 19:11 Drug: Benadryl 25 mg Route: PO; ea 20:00 Follow up: Response: No adverse reaction ea 19:12 Drug: Reglan 10 mg Route: IVP; Site: left antecubital; ea 19:59 Follow up: Response: No adverse reaction ea 20:03 Drug: DuoNeb (3:1) (2.5 mg - 0.5 mg) 3 ml Route: Nebulizer; ea 20:30 Follow up: Response: No adverse reaction; Marked relief of symptoms ea 20:30 Drug: fentaNYL (PF) 50 mcg Route: IVP; Site: left antecubital; ea 20:43 Follow up: Response: No adverse reaction; Pain is decreased ea Disposition: 01/29 06:42 Co-signature as Attending Physician, Abhi Mccall MD I agree with the assessment and marnie plan of care. Disposition: 01/28/18 20:26 Discharged to Home. Impression: Unspecified abdominal pain. - Condition is Stable. - Discharge Instructions: Abdominal Pain, Adult. - Prescriptions for promethazine 25 mg Oral Tablet - take 1 tablet by ORAL route every 6 hours As needed; 20 tablet. - Medication Reconciliation Form, Thank You Letter, Antibiotic Education, Prescription Opioid Use form. - Follow up: Nicola Simpson MD; When: 2 - 3 days; Reason: Recheck today's complaints, Continuance of care, Re-evaluation by your physician. Signatures: Dispatcher [employer] EDAbhi Zacarias MD MD cha Mickail, Joel, PA PA Igor Hagen, NUCLEAR WASTE MANAGEMENT ENGINEER NUCLEAR WASTE MANAGEMENT ENGINEER Sandi Shepherd, RN RN aa5 Karla Roman RN RN ea Corrections: (The following items were deleted from the chart) 01/28 20:44 20:26 01/28/2018 20:26 Discharged to Home. Impression: Unspecified abdominal pain. ea Condition is Stable. Forms are Medication Reconciliation Form, Thank You Letter, Antibiotic Education, Prescription Opioid Use. Follow up: Nicola Simpson; When: 2 - 3 days; Reason: Recheck today's complaints, Continuance of care, Re-evaluation by your physician. everardo
--- NOTE | 2018-01-28 20:27 | ER ---
Nurse's Notes [facility] Name: Oleg Rosenberg Age: 47 yrs Sex: Female : 1970 Arrival Date: 01/28/2018 Time: 17:59 Bed 13 Private MD: Diagnosis: Unspecified abdominal pain Presentation: 01/28 18:05 Presenting complaint: Patient states: generalized abd pain and nausea, vomiting, aa5 diarrhea that began yesterday. Transition of care: patient was not received from another setting of care. Onset of symptoms was January 2018. Risk Assessment: Do you want to hurt yourself or someone else? Patient reports no desire to harm self or others. Initial Sepsis Screen: Does the patient meet any 2 criteria? No. Patient's initial sepsis screen is negative. Does the patient have a suspected source of infection? No. Patient's initial sepsis screen is negative. Care prior to arrival: None. 18:05 Method Of Arrival: Wheelchair aa5 18:05 Acuity: AAYUSH 3 aa5 Triage Assessment: 19:14 General: Appears uncomfortable, Behavior is cooperative, anxious. Pain: Complains of em pain in abdomen. GI: Reports diarrhea, nausea, vomiting. 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 - Social history:: Smoking status: Patient/guardian denies using tobacco. - Ebola Screening: : No symptoms or risks identified at this time. Screenin:30 Abuse screen: Denies threats or abuse. Nutritional screening: No deficits noted. em Tuberculosis screening: No symptoms or risk factors identified. Fall Risk None identified. Assessment: 18:30 General: Appears in no apparent distress. uncomfortable, Behavior is calm, cooperative. em Pain: Complains of pain in abdomen. Neuro: Level of Consciousness is awake, alert, obeys commands, Oriented to person, place, time, situation. Cardiovascular: Denies chest pain, Capillary refill < 3 seconds. Respiratory: Airway is patent Respiratory effort is even, unlabored, Respiratory pattern is regular, symmetrical, Breath sounds are clear bilaterally. GI: Abdomen is obese, Abd is soft X 4 quads. : No signs and/or symptoms were reported regarding the genitourinary system. EENT: No signs and/or symptoms were reported regarding the EENT system. Derm: Skin is intact, Skin is pink, warm \T\ dry. Musculoskeletal: Range of motion: intact in all extremities. 18:43 General: The previous assessment is accurate, call light remains within reach. . ss 19:14 General: Appears uncomfortable, Behavior is calm, cooperative, appropriate for age. ea Pain: Complains of pain in abdomen Pain currently is 9 out of 10 on a pain scale. Quality of pain is described as aching, Is continuous. Neuro: Level of Consciousness is awake, alert, obeys commands, Oriented to person, place, time, situation. Cardiovascular: Patient's skin is warm and dry. Cardiovascular: Heart tones S1 S2 present. Respiratory: Airway is patent Respiratory effort is even, unlabored, Respiratory pattern is regular, symmetrical. GI: Abdomen is obese, Bowel sounds present X 4 quads. Abd is soft and non tender X 4 quads. : No signs and/or symptoms were reported regarding the genitourinary system. EENT: No signs and/or symptoms were reported regarding the EENT system. Derm: Skin is pink, warm \T\ dry. 20:37 Reassessment: Patient and/or family updated on plan of care and expected duration. Pain ea level reassessed. Patient is alert, oriented x 3, equal unlabored respirations, skin warm/dry/pink. Patient states symptoms have improved. 20:38 Reassessment: Discharge instructions given to patient, verbalized the understanding of ea instruction. Vital Signs: 18:09 BP 132 / 78; Pulse 77; Resp 22 S; Temp 98.3(TE); Pulse Ox 96% on R/A; Weight 166.01 kg aa5 (R); Height 5 ft. 5 in. (165.10 cm) (R); Pain 10/10; 19:18 BP 133 / 81; Pulse 60; Resp 20 S; Pulse Ox 98% ; ea 20:35 BP 125 / 72; Pulse 60; Resp 18; Temp 98(O); Pulse Ox 97% ; ea 18:09 Body Mass Index 60.90 (166.01 kg, 165.10 cm) aa5 ED Course: 17:59 Patient arrived in ED. mr 18:07 Triage completed. aa5 18:07 Arm band placed on. aa5 18:23 Urine collected: clean catch specimen, cloudy. 3 18:24 Monroe Lopez PA is PHCP. m 18:24 Abhi Mccall MD is Attending Physician. m 18:30 Igor Dunlap LVN is Primary Nurse. em 18:30 No provider procedures requiring assistance completed. em 18:43 CT Stone Protocol In Process Unspecified. EDMS 18:55 EKG done, by ED staff, reviewed by Monroe HARGROVE. 3 19:17 Patient has correct armband on for positive identification. Bed in low position. Call ea light in reach. 20:26 Nicola Simpson MD is Referral Physician. jmm 20:38 IV discontinued, intact, bleeding controlled, No redness/swelling at site. Pressure ea dressing applied. Administered Medications: 19:04 Drug: NS 0.9% 1000 ml Route: IV; Rate: 1 bolus; Site: left antecubital; em 20:15 Follow up: Response: No adverse reaction; IV Status: Completed infusion ea 19:05 Not Given (Other Intervention Used): diphenhydrAMINE 12.5 mg IVP once em 19:11 Drug: Benadryl 25 mg Route: PO; ea 20:00 Follow up: Response: No adverse reaction ea 19:12 Drug: Reglan 10 mg Route: IVP; Site: left antecubital; ea 19:59 Follow up: Response: No adverse reaction ea 20:03 Drug: DuoNeb (3:1) (2.5 mg - 0.5 mg) 3 ml Route: Nebulizer; ea 20:30 Follow up: Response: No adverse reaction; Marked relief of symptoms ea 20:30 Drug: fentaNYL (PF) 50 mcg Route: IVP; Site: left antecubital; ea 20:43 Follow up: Response: No adverse reaction; Pain is decreased ea Outcome: 20:26 Discharge ordered by . everardo 20:37 Condition: improved ea 20:37 Discharge instructions given to patient, Instructed on discharge instructions, follow up and referral plans. medication usage, Demonstrated understanding of instructions, follow-up care, medications, Prescriptions given X 1. 20:43 Discharged to home ambulatory, with significant other. ea 20:44 Patient left the ED. ea Signatures: Dispatcher [employer] EDMS Monroe Lopez PA PA jmm Rivera, Maria mr Dunlap, Igor, BULKING MACHINE OPERATOR BULKING MACHINE OPERATOR Sandi Shepherd, RN RN aa5 Sherice Nunez RN RN Paula Ventura 3 Karla Roman RN RN tianna
[2018-01-28 22:09] VITALS: BP 125/72; TEMP 98; O2SAT 97
--- NOTE | 2018-01-31 06:53 | EKG ---
Test Date: 2018-01-28 Test Time: 18:50:54 Chiropractic Neurologist: GERDA MEASUREMENT RESULTS: Intervals: Rate: 60 OH: 150 QRSD: 82 QT: 400 QTc: 400 [place]: P: 4 OH: 150 QRS: 6 T: 57 INTERPRETIVE STATEMENTS: Normal sinus rhythm Normal ECG Compared to ECG 10/29/2017 21:21:54 No significant changes Electronically Signed On 01-31-18 06:52:54 CDT by Dwayne Thomas
== END 2018-01-28 20:44 | disposition home or self-care (01) ==
LOC: ER 17:56
DX: R10.9 Unspecified abdominal pain (principal); Z88.0 Allergy status to penicillin; Z88.5 Allergy status to narcotic agent; Z88.6 Allergy status to analgesic agent; Z88.8 Allergy status to other drugs, medicaments and biological substances; Z91.041 Radiographic dye allergy status
CPT/HCPCS: 36415; 74176; 76377; 80048; 80076; 81003; 81025; 83690; 84484; 85025; 93005; 94640; 96361; 96374; 96375; 99284; J2765; J3010; J7030

== ENCOUNTER 2018-02-27 19:32 | Emergency (ER) | payer OTHER ==
[2018-02-27] MEDS ORDERED: HYDROCODONE/CHLORPHEN 5 ML/OSYR ONE (20:24)
[2018-02-27] MEDS ORDERED: PROMETHAZINE 25 MG TABLET ONE (20:24)
--- NOTE | 2018-02-27 20:54 | RAD REPORT ---
EXAM DESCRIPTION: RAD - Chest Pa And Lat (2 Views) - 02/27/2018 8:40 pm CLINICAL HISTORY: COPD, shortness of breath, wheezing COMPARISON: October 29 TECHNIQUE: PA and lateral views of the chest were obtained. FINDINGS: The lungs are clear. Lung markings are prominent but not clearly different. Moderately la rge hiatal hernia is present and stable. Significant failure or volume overload are not suspected. Heart size is normal and central vasculature is within normal limits. No pleural effusion or pneumo thorax seen. No acute bony finding noted. No aortic abnormality. IMPRESSION: Mild chronic interstitial lung disease similar to comparison. No acute findings seen. Prominence of the baseline pattern could mask early stages of interstitial edema or infiltrate.
--- NOTE | 2018-02-27 21:00 | ER ---
Nurse's Notes [facility] Name: Oleg Rosenberg Age: 48 yrs Sex: Female : 1970 Arrival Date: 02/27/2018 Time: 19:33 Bed 30 Private MD: ARNOLDO THOMPSON Diagnosis: Other chronic obstructive pulmonary disease Presentation: 02/27 19:36 Presenting complaint: Patient states: SOB and wheezing since Wednesday. Called PCP and aj started prednisone on Wednesday. Transition of care: patient was not received from another setting of care. Onset of symptoms was February 21, 2018. Risk Assessment: Do you want to hurt yourself or someone else? Patient reports no desire to harm self or others. Initial Sepsis Screen: Does the patient meet any 2 criteria? No. Patient's initial sepsis screen is negative. Does the patient have a suspected source of infection? No. Patient's initial sepsis screen is negative. Care prior to arrival: None. 19:36 Method Of Arrival: Ambulatory aj 19:36 Acuity: AAYUSH 3 aj 19:38 Note Patient arrived to ER without O2, despite being on constant 4 liters [place] O2 at home.aj Triage Assessment: 19:38 General: Appears in no apparent distress. comfortable, obese, Behavior is calm, aj cooperative, appropriate for age. Pain: Denies pain. Neuro: Level of Consciousness is awake, alert, obeys commands, Oriented to person, place, time, situation, Appropriate for age. Respiratory: Reports shortness of breath Airway is patent Respiratory effort is even, unlabored, Respiratory pattern is symmetrical, tachypnea Breath sounds with wheezes bilaterally. Onset: The symptoms/episode began/occurred gradually, the patient has mild shortness of breath. Derm: Skin is intact, is healthy with good turgor, Skin is pink, warm \T\ dry. normal. 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, LMP unrecalled mg2 Historical: - Allergies: 19:38 Aspirin; aj 19:38 Demerol; aj 19:38 Dilaudid; aj 19:38 Iodinated Contrast Media - IV Dye; aj 19:38 Iodine; aj 19:38 Morphine; aj 19:38 Mucinex; aj 19:38 NSAIDS; aj 19:38 PENICILLINS; aj 19:38 Zofran; aj - Home Meds: 19:38 albuterol sulfate 2.5 mg /3 mL (0.083 %) Inhl nebu 3 mL 4 times per day [Active]; aj Ambien 10 mg Oral tab nightly for Sleep-Onset Insomnia [Active]; Breo Ellipta 100-25 mcg/dose inhalation dsdv 1 puff once daily [Active]; Equetro 300 mg Oral CM12 1 cap 2 times per day [Active]; diazepam 10 mg Oral tab 1 tab 4 times per day [Active]; Risperdal 2 mg Oral tab once daily [Active]; Xopenex Inhl [Active]; ProAir HFA 90 mcg/actuation inhalation HFAA 1 puff every 4-6 hours [Active]; - PMHx: 19:38 Asthma; Bipolar disorder; Bronchitis; Depression; kidney cancer; COPD; aj - PSHx: 19:38 Hysterectomy; lap band and removed; Left kidney removed- Cancer; aj - Immunization history:: Adult Immunizations up to date. - Social history:: Smoking status: Patient/guardian denies using tobacco. - Ebola Screening: : Patient negative for fever greater than or equal to 101.5 degrees Fahrenheit, and additional compatible Ebola Virus Disease symptoms Patient denies exposure to infectious person Patient denies travel to an Ebola-affected area in the 21 days before illness onset No symptoms or risks identified at this time. Screenin:19 Abuse screen: Denies threats or abuse. Denies injuries from another. Nutritional mg2 screening: No deficits noted. Tuberculosis screening: No symptoms or risk factors identified. Fall Risk Gait- Weak (10 pts.). Assessment: 20:20 General: Appears in no apparent distress. comfortable, Behavior is calm, cooperative. mg2 Pain: Complains of pain in ribcage Pain does not radiate. Pain currently is 7 out of 10 on a pain scale. Quality of pain is described as aching, Pain began gradually, Is intermittent. Neuro: Level of Consciousness is awake, alert, obeys commands, Oriented to person, place, time, situation. Cardiovascular: Capillary refill < 3 seconds Patient's skin is warm and dry. Respiratory: Airway is patent Respiratory effort is even, unlabored, Respiratory pattern is regular, symmetrical, Breath sounds with wheezes bilaterally. GI: Reports nausea. : No signs and/or symptoms were reported regarding the genitourinary system. EENT: No signs and/or symptoms were reported regarding the EENT system. Derm: Skin is intact, is healthy with good turgor, Skin is pink, warm \T\ dry. normal. Musculoskeletal: No signs and/or symptoms reported regarding the musculoskeletal system. 20:30 Cardiovascular: Rhythm is regular. mg2 Vital Signs: 19:38 BP 122 / 80; Pulse 98; Resp 26; Temp 98.6; Pulse Ox 96% on 3 lpm NC; Weight 166.01 kg; aj Height 5 ft. 5 in. (165.10 cm); 20:30 BP 115 / 78; Pulse 90; Resp 20; Pulse Ox 97% on 4 lpm NC; mg2 19:38 Body Mass Index 60.90 (166.01 kg, 165.10 cm) aj ED Course: 19:33 Patient arrived in ED. am2 19:34 ARNOLDO THOMPSON is Private Physician. am2 19:37 Triage completed. aj 19:38 Arm band placed on left wrist. Patient placed in waiting room, in a wheelchair, on aj oxygen, Patient notified of wait time. 20:09 Antonietta Muhammad FNP-C is PHCP. snw 20:09 Reid Gutierrez MD is Attending Physician. snw 20:15 El Barrett RN is Primary Nurse. mg2 20:20 No provider procedures requiring assistance completed. mg2 20:23 Patient has correct armband on for positive identification. Pulse ox on. NIBP on. mg2 20:34 Chest Pa And Lat (2 Views) XRAY In Process Unspecified. EDMS 20:59 ARNOLDO THOMPSON is Referral Physician. snw 21:00 Patient did not have IV access during this emergency room visit. mg2 Administered Medications: 20:19 Drug: Tussionex Pennkinetic ER 5 ml Route: PO; mg2 20:45 Follow up: Response: No adverse reaction; Marked relief of symptoms mg2 21:56 Follow up: Response: No adverse reaction; Marked relief of symptoms mg2 20:19 Drug: Phenergan 25 mg Route: PO; mg2 20:45 Follow up: Response: No adverse reaction; Marked relief of symptoms mg2 21:07 Drug: LevaQUIN 500 mg Route: PO; mg2 21:20 Follow up: Response: No adverse reaction; Medication administered at discharge. mg2 21:17 Drug: Weir 5 mg-325 mg 1 tabs Route: PO; mg2 21:20 Follow up: Response: No adverse reaction; Medication administered at discharge. mg2 Outcome: 20:59 Discharge ordered by . snw 21:15 Discharged to home via wheelchair, with family. mg2 21:15 Condition: stable 21:15 Discharge instructions given to patient, Instructed on discharge instructions, follow up and referral plans. medication usage, Demonstrated understanding of instructions, follow-up care, medications, Prescriptions given X 1. 21:18 Patient left the ED. mg2 Signatures: Dispatcher [employer] EDLynn Davila, HARDIK RN Antonietta Welch, MANAGER PHOTO-C MANAGER PHOTO-Csnw Lynn Patterson am2 El Barrett RN RN mg2 Corrections: (The following items were deleted from the chart) 20:52 20:20 Pain: Denies pain. mg2 mg2
--- NOTE | 2018-02-27 21:00 | EDPHYS ---
Physician Documentation [facility] Name: Oleg Rosenberg Age: 48 yrs Sex: Female : 1970 Arrival Date: 02/27/2018 Time: 19:33 Bed 30 Private MD: ARNOLDO THOMPSON ED Physician Reid Gutierrez HPI: 02/27 22:09 This 48 yrs old Female presents to ER via Ambulatory with complaints of snw Breathing Difficulty. 22:09 The patient has shortness of breath at rest, with light activity. Duration: The snw symptoms are continuous, and are steadily getting worse. Associated signs and symptoms: Pertinent positives: non-productive cough. Severity of symptoms: At their worst the symptoms were moderate. The patient has experienced similar episodes in the past, chronically. The patient has not recently seen a physician, Patient states her PCP put her on steroids on Wednesday. 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, LMP unrecalled mg2 Historical: - Allergies: 19:38 Aspirin; aj 19:38 Demerol; aj 19:38 Dilaudid; aj 19:38 Iodinated Contrast Media - IV Dye; aj 19:38 Iodine; aj 19:38 Morphine; aj 19:38 Mucinex; aj 19:38 NSAIDS; aj 19:38 PENICILLINS; aj 19:38 Zofran; aj - Home Meds: 19:38 albuterol sulfate 2.5 mg /3 mL (0.083 %) Inhl nebu 3 mL 4 times per day [Active]; aj Ambien 10 mg Oral tab nightly for Sleep-Onset Insomnia [Active]; Breo Ellipta 100-25 mcg/dose inhalation dsdv 1 puff once daily [Active]; Equetro 300 mg Oral CM12 1 cap 2 times per day [Active]; diazepam 10 mg Oral tab 1 tab 4 times per day [Active]; Risperdal 2 mg Oral tab once daily [Active]; Xopenex Inhl [Active]; ProAir HFA 90 mcg/actuation inhalation HFAA 1 puff every 4-6 hours [Active]; - PMHx: 19:38 Asthma; Bipolar disorder; Bronchitis; Depression; kidney cancer; COPD; aj - PSHx: 19:38 Hysterectomy; lap band and removed; Left kidney removed- Cancer; aj - Immunization history:: Adult Immunizations up to date. - Social history:: Smoking status: Patient/guardian denies using tobacco. - Ebola Screening: : Patient negative for fever greater than or equal to 101.5 degrees Fahrenheit, and additional compatible Ebola Virus Disease symptoms Patient denies exposure to infectious person Patient denies travel to an Ebola-affected area in the 21 days before illness onset No symptoms or risks identified at this time. ROS: 22:08 Constitutional: Negative for fever, chills, and weight loss, Eyes: Negative for injury, snw pain, redness, and discharge, ENT: Negative for injury, pain, and discharge, Neck: Negative for injury, pain, and swelling, Cardiovascular: Negative for chest pain, palpitations, and edema, Respiratory: Positive for shortness of breath, cough, wheezing, and pleuritic chest pain, Abdomen/GI: Negative for abdominal pain, nausea, vomiting, diarrhea, and constipation, Back: Negative for injury and pain, : Negative for injury, bleeding, discharge, and swelling, MS/Extremity: Negative for injury and deformity, Skin: Negative for injury, rash, and discoloration, Neuro: Negative for headache, weakness, numbness, tingling, and seizure, Psych: Negative for depression, anxiety, suicide ideation, homicidal ideation, and hallucinations. Exam: 22:07 Constitutional: This is a well developed, obese patient who is awake, alert, and in no snw acute distress. Head/Face: Normocephalic, atraumatic. Eyes: Pupils equal round and reactive to light, extra-ocular motions intact. Lids and lashes normal. Conjunctiva and sclera are non-icteric and not injected. Cornea within normal limits. Periorbital areas with no swelling, redness, or edema. ENT: Nares patent. No nasal discharge, no septal abnormalities noted. Tympanic membranes are normal and external auditory canals are clear. Oropharynx with no redness, swelling, or masses, exudates, or evidence of obstruction, uvula midline. Mucous membranes moist. Neck: Trachea midline, no thyromegaly or masses palpated, and no cervical lymphadenopathy. Supple, full range of motion without nuchal rigidity, or vertebral point tenderness. No Meningismus. Chest/axilla: Normal chest wall appearance and motion. Nontender with no deformity. No lesions are appreciated. Cardiovascular: Regular rate and rhythm with a normal S1 and S2. No gallops, murmurs, or rubs. Normal PMI, no JVD. No pulse deficits. Abdomen/GI: Soft, non-tender, with normal bowel sounds. No distension or tympany. No guarding or rebound. No evidence of tenderness throughout. Back: No spinal tenderness. No costovertebral tenderness. Full range of motion. Skin: Warm, dry with normal turgor. Normal color with no rashes, no lesions, and no evidence of cellulitis. MS/ Extremity: Pulses equal, no cyanosis. Neurovascular intact. Full, normal range of motion. Neuro: Awake and alert, GCS 15, oriented to person, place, time, and situation. Cranial nerves II-XII grossly intact. Motor strength 5/5 in all extremities. Sensory grossly intact. Cerebellar exam normal. Normal gait. 22:07 Respiratory: the patient does not display signs of respiratory distress, Respirations: no acute changes, Breath sounds: wheezing: Cough. Vital Signs: 19:38 BP 122 / 80; Pulse 98; Resp 26; Temp 98.6; Pulse Ox 96% on 3 lpm NC; Weight 166.01 kg; aj Height 5 ft. 5 in. (165.10 cm); 20:30 BP 115 / 78; Pulse 90; Resp 20; Pulse Ox 97% on 4 lpm NC; mg2 19:38 Body Mass Index 60.90 (166.01 kg, 165.10 cm) aj MDM: 20:22 Patient medically screened. snw 22:12 Data reviewed: vital signs, nurses notes. Data interpreted: Pulse oximetry: on room air snw is 97 %. Interpretation: normal. Counseling: I had a detailed discussion with the patient and/or guardian regarding: the historical points, exam findings, and any diagnostic results supporting the discharge/admit diagnosis, the need for outpatient follow up, for definitive care, to return to the emergency department if symptoms worsen or persist or if there are any questions or concerns that arise at home. Special discussion: Based on the history and exam findings, there is no indication for further emergent testing or inpatient evaluation. I discussed with the patient/guardian the need to see the primary care provider for further evaluation of the symptoms. I discussed with the patient/guardian the need to see the printing services coordinator for further evaluation of the symptoms. 02/27 20:15 Order name: Chest Pa And Lat (2 Views) XRAY; Complete Time: 20:57 snw Administered Medications: 20:19 Drug: Tussionex Pennkinetic ER 5 ml Route: PO; mg2 20:45 Follow up: Response: No adverse reaction; Marked relief of symptoms mg2 21:56 Follow up: Response: No adverse reaction; Marked relief of symptoms mg2 20:19 Drug: Phenergan 25 mg Route: PO; mg2 20:45 Follow up: Response: No adverse reaction; Marked relief of symptoms mg2 21:07 Drug: LevaQUIN 500 mg Route: PO; mg2 21:20 Follow up: Response: No adverse reaction; Medication administered at discharge. mg2 21:17 Drug: [place] 5 mg-325 mg 1 tabs Route: PO; mg2 21:20 Follow up: Response: No adverse reaction; Medication administered at discharge. mg2 Disposition: 02/28 06:45 Co-signature as Attending Physician, Reid Gutierrez MD I agree with the assessment and tw4 plan of care. Disposition: 02/27/18 20:59 Discharged to Home. Impression: Other chronic obstructive pulmonary disease. - Condition is Stable. - Discharge Instructions: Chronic Obstructive Pulmonary Disease Exacerbation. - Prescriptions for Levaquin 500 mg Oral Tablet - take 1 tablet by ORAL route once daily for 7 days; 7 tablet. - Medication Reconciliation Form, Thank You Letter, Antibiotic Education, Prescription Opioid Use form. - Follow up: ARNOLDO THOMPSON; When: Tomorrow; Reason: Recheck today's complaints, Continuance of care, Re-evaluation by your physician. Follow up: Emergency Department; When: As needed; Reason: Worsening of condition. Signatures: Dispatcher [employer] Lynn Garcia RN RN aj Therrien, Shelly, FILLING OPERATOR-C FILLING OPERATOR-Csnw Reid Gutierrez MD MD tw4 El Barrett RN RN mg2 Corrections: (The following items were deleted from the chart) 02/27 21:18 20:59 02/27/2018 20:59 Discharged to Home. Impression: Other chronic obstructive mg2 pulmonary disease. Condition is Stable. Forms are Medication Reconciliation Form, Thank You Letter, Antibiotic Education, Prescription Opioid Use. Follow up: ARNOLDO THOMPSON; When: Tomorrow; Reason: Recheck today's complaints, Continuance of care, Re-evaluation by your physician. Follow up: Emergency Department; When: As needed; Reason: Worsening of condition. snw
[2018-02-27] MEDS ORDERED: levoFLOXacin 500 MG TAB ONE (21:07)
[2018-02-27] MEDS ORDERED: HYDROCODONE/APAP 5/325 MG TAB ONE (21:16)
[2018-02-27 21:35] VITALS: BP 122/80; TEMP 98.6; O2SAT 96
== END 2018-02-27 21:18 | disposition home or self-care (01) ==
LOC: ER 19:32
DX: J44.9 Chronic obstructive pulmonary disease, unspecified (principal); Z88.6 Allergy status to analgesic agent; Z91.09 Other allergy status, other than to drugs and biological substances; Z88.8 Allergy status to other drugs, medicaments and biological substances; Z88.0 Allergy status to penicillin; J45.909 Unspecified asthma, uncomplicated; J40 Bronchitis, not specified as acute or chronic; F41.9 Anxiety disorder, unspecified
CPT/HCPCS: 71046; 99284

== ENCOUNTER 2018-03-27 14:24 | Emergency (ER) | payer OTHER ==
[2018-03-27] MEDS ORDERED: IPRATROPIUM BROM 0.5MG/2.5ML ONE (14:57)
[2018-03-27] MEDS ORDERED: ALBUTEROL 2.5 MG/3 ML NEB SOL ONE (14:57)
[2018-03-27] MEDS ORDERED: METHYLPREDNISOLONE 125 MG INJ ONE (15:14)
[2018-03-27] MEDS ORDERED: FENTANYL CITR 100 MCG/2 ML ONE (15:15)
[2018-03-27] MEDS ORDERED: MAGNESIUM SULFATE 1 gm IVPB 1 GM/100 ML BAG IV ONE (15:15)
--- NOTE | 2018-03-27 15:20 | RAD REPORT ---
EXAM DESCRIPTION: RAD - Chest Single View - 03/27/2018 3:10 pm CLINICAL HISTORY: Cough;Congestion Chest pain. COMPARISON: Chest Pa And Lat (2 Views) dated 02/27/2018; Chest Pa And Lat (2 Views) dated 10/29/2017; Chest Single View dated 10/20/2017; Chest Single View dated 08/31/2017 FINDINGS: Portable technique limits examination quality. The lungs are grossly clear. The heart is mildly prominent in size. No displaced fractures.Chronic wi dening of the left AC joint. IMPRESSION: No acute intrathoracic process suspected.
[2018-03-27 15:38] LABS: Absolute Lymphocytes (CBC) 1.4 K/uL (0.7-4.9); Absolute Monocytes 0.3 K/uL (0.1-1.3); Absolute Neutrophil 3.4 K/uL (1.8-8.0); Basophils % 0.8 % (0-1.3); Eosinophils % 1.3 % (0-4.4); Hematocrit 38.9 % (36.0-45.0); Lymphocytes % 27.3 % (15.3-44.8); MCH 32.9 pg (27.0-35.0); MCV 98.8 fL (80-100); MPV 8.7 fL (7.6-11.3); Monocytes % 5.8 % (3.3-12.3); RBC Red Blood Cell Count 3.93 M/uL (3.86-4.86)
[2018-03-27] MEDS ORDERED: NA CHLORIDE 0.9% 250 ML ONE (15:38)
[2018-03-27] MEDS ORDERED: PROMETHAZINE 25 MG/ML VIAL ONE (15:38)
[2018-03-27 15:50] LABS: Potassium 4.6 mmol/L (3.5-5.1)
[2018-03-27 15:58] LABS: Urine Blood NEGATIVE (NEG); Urine Glucose NEGATIVE (NEG); Urine Protein NEGATIVE (NEG); Urine Specific Gravity 1.015 (1.005-1.030); Urine pH 8.5 (5.0-7.0)
[2018-03-27] MEDS ORDERED: MEPERIDINE HCL 25 MG/0.5 ML ONE (16:29)
--- NOTE | 2018-03-27 16:56 | EDPHYS ---
Physician Documentation [facility] Name: Oleg Rosenberg Age: 48 yrs Sex: Female : 1970 Arrival Date: 03/27/2018 Time: 14:25 Bed 7 Private MD: ED Physician Abhi Mccall HPI: 03/27 15:34 This 48 yrs old Female presents to ER via EMS with complaints of Shortness Of kb Breath. 15:34 The patient has shortness of breath at rest, and the patient has a history of asthma, kb COPD. Onset: The symptoms/episode began/occurred yesterday. Duration: The symptoms are chronic. The patient's shortness of breath is aggravated by exertion, is alleviated by nothing. Associated signs and symptoms: Pertinent positives: non-productive cough, Pertinent negatives: chest pain, productive cough, fever. Severity of symptoms: At their worst the symptoms were moderate in the emergency department the symptoms are unchanged. The patient has not experienced similar symptoms in the past. The patient has not recently seen a physician. 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 - Social history:: Smoking status: Patient/guardian denies using tobacco. - Ebola Screening: : No symptoms or risks identified at this time. ROS: 15:42 Constitutional: Negative for fever, chills, and weight loss, Cardiovascular: Negative kb for chest pain, palpitations, and edema, Abdomen/GI: Negative for abdominal pain, nausea, vomiting, diarrhea, and constipation, Back: Negative for injury and pain, : Negative for injury, bleeding, discharge, and swelling, MS/Extremity: Negative for injury and deformity, Skin: Negative for injury, rash, and discoloration, Neuro: Negative for headache, weakness, numbness, tingling, and seizure. 15:42 Respiratory: Positive for cough, dyspnea on exertion, shortness of breath, Negative for hemoptysis, orthopnea, pleurisy, shortness of breath, wheezing, acute changes. Exam: 15:42 Constitutional: This is a well developed, well nourished patient who is awake, alert, kb and in no acute distress. Head/Face: Normocephalic, atraumatic. Chest/axilla: Normal chest wall appearance and motion. Nontender with no deformity. No lesions are appreciated. Cardiovascular: Regular rate and rhythm with a normal S1 and S2. No gallops, murmurs, or rubs. Normal PMI, no JVD. No pulse deficits. Abdomen/GI: Soft, non-tender, with normal bowel sounds. No distension or tympany. No guarding or rebound. No evidence of tenderness throughout. Skin: Warm, dry with normal turgor. Normal color with no rashes, no lesions, and no evidence of cellulitis. MS/ Extremity: Pulses equal, no cyanosis. Neurovascular intact. Full, normal range of motion. Neuro: Awake and alert, GCS 15, oriented to person, place, time, and situation. Cranial nerves II-XII grossly intact. Motor strength 5/5 in all extremities. Sensory grossly intact. Cerebellar exam normal. Normal gait. 15:42 Respiratory: mild respiratory distress is noted, Respirations: normal, Breath sounds: wheezing: expiratory that is moderate, is heard diffusely. Vital Signs: 14:29 BP 101 / 70; Pulse 71; Resp 24; Pulse Ox 93% 4 lpm ; Weight 163.29 kg; Height 5 ft. 5 la1 in. (165.10 cm); 15:42 Temp 98.4; la1 16:28 BP 131 / 74; Pulse 81; Resp 16; Pulse Ox 96% on 4 lpm NC; la1 17:05 BP 126 / 67; Pulse 81; Resp 20; Pulse Ox 97% on 4 lpm NC; la1 14:29 Body Mass Index 59.91 (163.29 kg, 165.10 cm) la1 14:29 Pt uses home 02 at 4LPM la1 MDM: 14:37 Patient medically screened. kb 15:37 Data reviewed: vital signs, nurses notes. Data interpreted: Pulse oximetry: on 4L(s) kb per nasal canula, home O2 is 98 %. Interpretation: normal. 16:55 Counseling: I had a detailed discussion with the patient and/or guardian regarding: the kb historical points, exam findings, and any diagnostic results supporting the discharge/admit diagnosis, lab results, radiology results, the need for outpatient follow up, a family practitioner, to return to the emergency department if symptoms worsen or persist or if there are any questions or concerns that arise at home. ED course: Pt is feeling better and is ready to go home. . 03/27 14:44 Order name: CBC with Diff; Complete Time: 15:40 kb 03/27 14:44 Order name: Basic Metabolic Panel; Complete Time: 15:54 kb 03/27 14:44 Order name: Blood Culture Adult (2) kb 03/27 14:44 Order name: Lactate; Complete Time: 15:55 kb 03/27 14:44 Order name: Procalcitonin; Complete Time: 16:18 kb 03/27 15:53 Order name: Urine Dipstick--Ancillary (enter results); Complete Time: 16:10 eb 03/27 14:44 Order name: IV Start; Complete Time: 15:43 kb 03/27 14:44 Order name: Chest Single View XRAY; Complete Time: 15:32 kb 03/27 16:18 Order name: Flu kb 03/27 14:45 Order name: Urine Dipstick-Ancillary (obtain specimen); Complete Time: 15:49 kb Administered Medications: 15:42 Drug: SOLU-Medrol 125 mg Route: IVP; Site: left antecubital; la1 16:04 Follow up: Response: No adverse reaction la1 15:42 Drug: fentaNYL (PF) 50 mcg Route: IVP; Site: left antecubital; la1 16:04 Follow up: Response: No adverse reaction; Pain is decreased la1 15:43 Drug: DuoNeb (3:1) (2.5 mg - 0.5 mg) 3 ml Route: Nebulizer; la1 16:05 Follow up: Response: No adverse reaction la1 15:43 Drug: Magnesium Sulfate 1 grams Route: IVPB; Infused Over: 1 hrs; Site: left la1 antecubital; 17:05 Follow up: IV Status: Completed infusion la1 16:27 Drug: Demerol 25 mg Route: IVP; Site: left antecubital; la1 17:04 Follow up: Response: No adverse reaction; Pain is decreased la1 Disposition: 03/28 08:26 Co-signature as Attending Physician, Abhi Mccall MD I agree with the assessment and marnie plan of care. 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 Disposition: 03/27/18 16:56 Discharged to Home. Impression: Chronic obstructive pulmonary disease with (acute) exacerbation. - Condition is Stable. - Discharge Instructions: Chronic Obstructive Pulmonary Disease Exacerbation. - Prescriptions for Prednisone 20 mg Oral Tablet - take 1 tablet by ORAL route once daily for 5 days; 5 tablet. - Medication Reconciliation Form, Thank You Letter, Antibiotic Education, Prescription Opioid Use form. - Follow up: Emergency Department; When: As needed; Reason: Worsening of condition. Follow up: Private Physician; When: 2 - 3 days; Reason: Recheck today's complaints, Continuance of care, Re-evaluation by your physician. Signatures: Dispatcher [employer] EDOK Lisa Auguste, DIAMOND POWDER MIXER-C DIAMOND POWDER MIXER-Abhi Horvath MD MD cha Attema, Lee RN RN la1 Corrections: (The following items were deleted from the chart) 03/27 17:05 16:56 03/27/2018 16:56 Discharged to Home. Impression: Chronic obstructive pulmonary la1 disease with (acute) exacerbation. Condition is Stable. Forms are Medication Reconciliation Form, Thank You Letter, Antibiotic Education, Prescription Opioid Use. Follow up: Emergency Department; When: As needed; Reason: Worsening of condition. Follow up: Private Physician; When: 2 - 3 days; Reason: Recheck today's complaints, Continuance of care, Re-evaluation by your physician. kb
--- NOTE | 2018-03-27 16:56 | ER ---
Nurse's Notes [facility] Name: Oleg Rosenberg Age: 48 yrs Sex: Female : 1970 Arrival Date: 03/27/2018 Time: 14:25 Bed 7 Private MD: Diagnosis: Chronic obstructive pulmonary disease with (acute) exacerbation Presentation: 03/27 14:25 Presenting complaint: Patient states: I have been having worsening cough and SOB over la1 the last two days. PT with hx of asthma. Transition of care: patient was not received from another setting of care. Onset of symptoms was March 27, 2018. Risk Assessment: Do you want to hurt yourself or someone else? Patient reports no desire to harm self or others. Risk Assessment: Do you want to hurt yourself or someone else?. Initial Sepsis Screen: Does the patient meet any 2 criteria? No. Patient's initial sepsis screen is negative. Does the patient have a suspected source of infection? No. Patient's initial sepsis screen is negative. Care prior to arrival: None. 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 - Social history:: Smoking status: Patient/guardian denies using tobacco. - Ebola Screening: : No symptoms or risks identified at this time. Screenin:29 Abuse screen: Denies threats or abuse. Nutritional screening: No deficits noted. la1 Tuberculosis screening: No symptoms or risk factors identified. Fall Risk None identified. Assessment: 14:28 General: Appears in no apparent distress. Behavior is calm, cooperative. Pain: la1 Complains of pain in chest. Neuro: Level of Consciousness is awake, alert, obeys commands, Oriented to person, place, time, situation. Cardiovascular: Capillary refill < 3 seconds Patient's skin is warm and dry. Rhythm is sinus tachycardia. Respiratory: Airway is patent Respiratory effort is even, labored, Respiratory pattern is regular, symmetrical, Breath sounds with wheezes bilaterally. the patient has moderate shortness of breath. GI: No signs and/or symptoms were reported involving the gastrointestinal system. : No signs and/or symptoms were reported regarding the genitourinary system. Vital Signs: 14:29 BP 101 / 70; Pulse 71; Resp 24; Pulse Ox 93% 4 lpm ; Weight 163.29 kg; Height 5 ft. 5 la1 in. (165.10 cm); 15:42 Temp 98.4; la1 16:28 BP 131 / 74; Pulse 81; Resp 16; Pulse Ox 96% on 4 lpm NC; la1 17:05 BP 126 / 67; Pulse 81; Resp 20; Pulse Ox 97% on 4 lpm NC; la1 14:29 Body Mass Index 59.91 (163.29 kg, 165.10 cm) la1 14:29 Pt uses home 02 at 4LPM la1 ED Course: 14:25 Patient arrived in ED. la1 14:26 Triage completed. la1 14:28 Arm band placed on right wrist. la1 14:29 Bed in low position. Call light in reach. Side rails up X 1. la1 14:36 [facility] Auguste [facility]C [facility] kb 14:36 Abhi Mccall MD is Attending Physician. kb 15:10 Chest Single View XRAY In Process Unspecified. EDMS 15:42 Hamilton Hutton RN is Primary Nurse. la1 17:04 No provider procedures requiring assistance completed. IV discontinued, intact, la1 bleeding controlled, No redness/swelling at site. Pressure dressing applied. Administered Medications: 15:42 Drug: SOLU-Medrol 125 mg Route: IVP; Site: left antecubital; la1 16:04 Follow up: Response: No adverse reaction la1 15:42 Drug: fentaNYL (PF) 50 mcg Route: IVP; Site: left antecubital; la1 16:04 Follow up: Response: No adverse reaction; Pain is decreased la1 15:43 Drug: DuoNeb (3:1) (2.5 mg - 0.5 mg) 3 ml Route: Nebulizer; la1 16:05 Follow up: Response: No adverse reaction la1 15:43 Drug: Magnesium Sulfate 1 grams Route: IVPB; Infused Over: 1 hrs; Site: left la1 antecubital; 17:05 Follow up: IV Status: Completed infusion la1 16:27 Drug: Demerol 25 mg Route: IVP; Site: left antecubital; la1 17:04 Follow up: Response: No adverse reaction; Pain is decreased la1 Outcome: 16:56 Discharge ordered by MD. dos santos 17:04 Discharged to home ambulatory. la1 17:04 Condition: stable 17:04 Discharge instructions given to patient, Instructed on discharge instructions, follow up and referral plans. medication usage, Demonstrated understanding of instructions, follow-up care, medications, Prescriptions given X 1. 17:05 Patient left the ED. la1 Signatures: Dispatcher [employer] EDLisa Balbuena, NEGRO-Darlin TOM-Hamilton Freire, RN RN la1
[2018-03-27 17:46] VITALS: TEMP 98.4
[2018-03-27 17:49] VITALS: BP 126/67; O2SAT 97
--- NOTE | 2018-03-28 07:36 | EKG ---
Test Date: 2018-03-27 Test Time: 14:34:35 Basket Mender: RAFAEL MEASUREMENT RESULTS: Intervals: Rate: 67 MN: 154 QRSD: 82 QT: 406 QTc: 429 Wiggins: P: 40 MN: 154 QRS: 12 T: 36 INTERPRETIVE STATEMENTS: Normal sinus rhythm Low voltage QRS Borderline ECG Compared to ECG 01/28/2018 18:50:54 Low QRS voltage now present Electronically Signed On 03-28-18 07:35:32 INVENTORY CONTROL ASSOCIATE by Dwayne Thomas
== END 2018-03-27 17:05 | disposition home or self-care (01) ==
LOC: ER 14:24
DX: J44.1 Chronic obstructive pulmonary disease with (acute) exacerbation (principal)
CPT/HCPCS: 36415; 71045; 80048; 81003; 83605; 84145; 85025; 87040; 87804; 93005; 94640; 96365; 96375; 99285; J2175; J2550; J2930; J3010; J3475

== ENCOUNTER 2018-04-24 16:44 | Emergency (ER) | payer OTHER ==
--- NOTE | 2018-04-24 17:56 | RAD REPORT ---
EXAM DESCRIPTION: RAD - Shoulder Right 2 View - 04/24/2018 5:48 pm CLINICAL HISTORY: SMASH INJURY Fall, pain COMPARISON: No comparisons FINDINGS: No fracture or dislocation of the right shoulder is visualized. No aggressive marrow ynes perez
--- NOTE | 2018-04-24 17:56 | RAD REPORT ---
EXAM DESCRIPTION: RAD - Lumbar Spine 3 Views - 04/24/2018 5:50 pm CLINICAL HISTORY: Pain;Smash injury Radiculopathy COMPARISON: Lumbar Spine 3 Views dated 11/20/2016 FINDINGS: Vertebral body heights appear maintained. No compression fracture noted. Disc spaces are m aintained. No spondylolysis or spondylolisthesis. IMPRESSION: Negative study.
--- NOTE | 2018-04-24 18:07 | EDPHYS ---
Physician Documentation [facility] Name: Oleg Rosenberg Age: 48 yrs Sex: Female : 1970 Arrival Date: 04/24/2018 Time: 16:49 Bed 17 Private MD: ED Physician Dario Lynn HPI: 04/24 18:46 This 48 yrs old Female presents to ER via EMS with complaints of Fall Injury. snw 18:46 Details of fall: The patient fell from an upright position, while standing, tripped. snw Onset: The symptoms/episode began/occurred suddenly, just prior to arrival. Associated injuries: The patient sustained right shoulder and low back. Severity of symptoms: At their worst the symptoms were severe. The patient has experienced similar episodes in the past. The patient has been recently seen by a physician: The patient has been recently seen at the [facility] Emergency Department, monthly. Historical: - Allergies: 16:52 Aspirin; aa5 16:52 Dilaudid; aa5 16:52 Iodinated Contrast Media - IV Dye; aa5 16:52 Iodine; aa5 16:52 Morphine; aa5 16:52 Mucinex; aa5 16:52 NSAIDS; aa5 16:52 PENICILLINS; aa5 16:52 Zofran; aa5 - PMHx: 16:52 Asthma; Bipolar disorder; Bronchitis; COPD; Depression; kidney cancer; aa5 - PSHx: 16:52 L nephrectomy; aa5 - Immunization history:: Adult Immunizations up to date. - Social history:: Smoking status: Patient/guardian denies using tobacco. - Ebola Screening: : No symptoms or risks identified at this time. ROS: 18:45 Constitutional: Negative for fever, chills, and weight loss, Eyes: Negative for injury, snw pain, redness, and discharge, ENT: Negative for injury, pain, and discharge, Neck: Negative for injury, pain, and swelling, Cardiovascular: Negative for chest pain, palpitations, and edema, Respiratory: Negative for shortness of breath, cough, wheezing, and pleuritic chest pain, Abdomen/GI: Negative for abdominal pain, nausea, vomiting, diarrhea, and constipation, Back: Negative for injury and pain, : Negative for injury, bleeding, discharge, and swelling, Skin: Negative for injury, rash, and discoloration, Neuro: Negative for headache, weakness, numbness, tingling, and seizure. 18:45 MS/extremity: Positive for injury or acute deformity, contusion, decreased range of motion, pain, of the right shoulder and low back . Exam: 18:44 Constitutional: This is a well developed, obese patient who is awake, alert, and in no snw acute distress. Head/Face: Normocephalic, atraumatic. Eyes: Pupils equal round and reactive to light, extra-ocular motions intact. Lids and lashes normal. Conjunctiva and sclera are non-icteric and not injected. Cornea within normal limits. Periorbital areas with no swelling, redness, or edema. ENT: Nares patent. No nasal discharge, no septal abnormalities noted. Tympanic membranes are normal and external auditory canals are clear. Oropharynx with no redness, swelling, or masses, exudates, or evidence of obstruction, uvula midline. Mucous membranes moist. Neck: Trachea midline, no thyromegaly or masses palpated, and no cervical lymphadenopathy. Supple, full range of motion without nuchal rigidity, or vertebral point tenderness. No Meningismus. Chest/axilla: Normal chest wall appearance and motion. Nontender with no deformity. No lesions are appreciated. Cardiovascular: Regular rate and rhythm with a normal S1 and S2. No gallops, murmurs, or rubs. Normal PMI, no JVD. No pulse deficits. Respiratory: Lungs have equal breath sounds bilaterally, clear to auscultation and percussion. No rales, rhonchi or wheezes noted. No increased work of breathing, no retractions or nasal flaring. Abdomen/GI: Soft, non-tender, with normal bowel sounds. No distension or tympany. No guarding or rebound. No evidence of tenderness throughout. Back: No spinal tenderness. No costovertebral tenderness. Full range of motion. Skin: Warm, dry with normal turgor. Normal color with no rashes, no lesions, and no evidence of cellulitis. MS/ Extremity: Pulses equal, no cyanosis. Neurovascular intact. Full, normal range of motion. Neuro: Awake and alert, GCS 15, oriented to person, place, time, and situation. Cranial nerves II-XII grossly intact. Motor strength 5/5 in all extremities. Sensory grossly intact. Cerebellar exam normal. Normal gait. 18:44 Psych: demanding pain medications be given IV, no indication for IV in ED. Vital Signs: 16:51 BP 132 / 80; Pulse 82; Resp 18 S; Temp 98.5(O); Pulse Ox 99% on R/A; Weight 165.56 kg aa5 (R); Height 5 ft. 6 in. (167.64 cm) (R); Pain 10/10; 18:20 BP 111 / 74; Pulse 76; Resp 20 S; Pulse Ox 97% on R/A; Pain 10/10; aa5 16:51 Body Mass Index 58.91 (165.56 kg, 167.64 cm) aa5 MDM: 16:59 Patient medically screened. snw 18:11 Data reviewed: vital signs, nurses notes. Data interpreted: Pulse oximetry: on room air snw is 99 %. Interpretation: normal. Counseling: I had a detailed discussion with the patient and/or guardian regarding: the historical points, exam findings, and any diagnostic results supporting the discharge/admit diagnosis, the presence of at least one elevated blood pressure reading (>120/80) during this emergency department visit, the need for outpatient follow up, for definitive care, to return to the emergency department if symptoms worsen or persist or if there are any questions or concerns that arise at home. Special discussion: I have referred the patient to see his PCP for further evaluation of high blood pressure. Based on the history and exam findings, there is no indication for further emergent testing or inpatient evaluation. I discussed with the patient/guardian the need to see the orthopedic surgeon for further evaluation of the symptoms. I discussed with the patient/guardian the need to see the primary care provider for further evaluation of the symptoms. 04/24 16:53 Order name: Shoulder Right (2 View) XRAY; Complete Time: 18:00 snw 04/24 16:53 Order name: XRAY Lumbar Spine (3 Views); Complete Time: 18:00 snw Administered Medications: 18:08 Drug: [place] 5 mg-325 mg 1 tabs Route: PO; aa5 18:08 Drug: Phenergan 25 mg Route: PO; aa5 18:08 Drug: Flexeril 10 mg Route: PO; aa5 Disposition: 04/24/18 18:07 Discharged to Home. Impression: Fall on same level, unspecified, Contusion of shoulder, Low back pain. - Condition is Stable. - Discharge Instructions: Back Pain, Adult, Musculoskeletal Pain, Back Injury Prevention, [id number], Back Exercises, [id number], Cryotherapy, Heat Therapy. - Prescriptions for orphenadrine citrate 100 mg Oral Tablet Sustained Release - take 1 tablet by ORAL route 2 times per day As needed; 20 tablet. promethazine 25 mg Oral Tablet - take 1 tablet by ORAL route every 6 hours As needed; 12 tablet. - Medication Reconciliation Form, Thank You Letter, Antibiotic Education, Prescription Opioid Use form. - Follow up: Private Physician; When: 1 - 2 days; Reason: Recheck today's complaints, Continuance of care, Re-evaluation by your physician. Follow up: Emergency Department; When: As needed; Reason: Worsening of condition. Addendum: 05/05/2018 15:41 Co-signature as Attending Physician, Dario Lynn MD Available for consultation at p s1 all times. . Signatures: Dispatcher [employer] EDMS Antonietta Muhammad, NEGRO-C SENIOR SUPPORT ANALYST-Csnw Sandi Doyle, RN RN Dario Lares MD MD ps1 Corrections: (The following items were deleted from the chart) 04/24 17:17 16:52 Allergies: Demerol; aa5 aa5 18:44 18:07 04/24/2018 18:07 Discharged to Home. Impression: Fall on same level, unspecified; aa5 Contusion of shoulder; Low back pain. Condition is Stable. Forms are Medication Reconciliation Form, Thank You Letter, Antibiotic Education, Prescription Opioid Use. Follow up: Private Physician; When: 1 - 2 days; Reason: Recheck today's complaints, Continuance of care, Re-evaluation by your physician. Follow up: Emergency Department; When: As needed; Reason: Worsening of condition. snw
--- NOTE | 2018-04-24 18:07 | ER ---
Nurse's Notes [facility] Name: Oleg Rosenberg Age: 48 yrs Sex: Female : 1970 Arrival Date: 04/24/2018 Time: 16:49 Bed 17 Private MD: Diagnosis: Fall on same level, unspecified;Contusion of shoulder;Low back pain Presentation: 04/24 16:50 Presenting complaint: Patient states: tripped and fell today. Pt c/o right shoulder aa5 pain and right mid-low back pain. Pt reports she landed on carpet. Pt denies LOC, denies head injury. Transition of care: patient was not received from another setting of care. Onset of symptoms was April 24, 2018. Risk Assessment: Do you want to hurt yourself or someone else? Patient reports no desire to harm self or others. Initial Sepsis Screen: Does the patient meet any 2 criteria? No. Patient's initial sepsis screen is negative. Does the patient have a suspected source of infection? No. Patient's initial sepsis screen is negative. Care prior to arrival: None. 16:50 Method Of Arrival: EMS: [facility] aa5 16:50 Acuity: AAYUSH 4 aa5 Historical: - Allergies: 16:52 Aspirin; aa5 16:52 Dilaudid; aa5 16:52 Iodinated Contrast Media - IV Dye; aa5 16:52 Iodine; aa5 16:52 Morphine; aa5 16:52 Mucinex; aa5 16:52 NSAIDS; aa5 16:52 PENICILLINS; aa5 16:52 Zofran; aa5 - PMHx: 16:52 Asthma; Bipolar disorder; Bronchitis; COPD; Depression; kidney cancer; aa5 - PSHx: 16:52 L nephrectomy; aa5 - Immunization history:: Adult Immunizations up to date. - Social history:: Smoking status: Patient/guardian denies using tobacco. - Ebola Screening: : No symptoms or risks identified at this time. Screenin:50 Abuse screen: Denies threats or abuse. Nutritional screening: No deficits noted. aa5 Tuberculosis screening: No symptoms or risk factors identified. Fall Risk None identified. Assessment: 16:50 General: Appears comfortable, Behavior is calm, cooperative. Pain: Complains of pain in aa5 right shoulder and right mid-low back pain Pain does not radiate. Pain currently is 10 out of 10 on a pain scale. Quality of pain is described as sharp, Pain began post-fall today Is continuous. Neuro: Level of Consciousness is awake, alert, obeys commands, Oriented to person, place, time, situation. Cardiovascular: Heart tones S1 S2 present Rhythm is regular. Respiratory: Airway is patent Respiratory effort is even, unlabored, Respiratory pattern is regular, symmetrical, Breath sounds are clear bilaterally. GI: No signs and/or symptoms were reported involving the gastrointestinal system. : No signs and/or symptoms were reported regarding the genitourinary system. EENT: No signs and/or symptoms were reported regarding the EENT system. Derm: Skin is pink, warm \\T\\ dry. No bruising, swelling, or abrasions noted to right shoulder or back. Musculoskeletal: Range of motion: intact in all extremities. 17:10 Reassessment: Patient is alert, oriented x 3, equal unlabored respirations, skin aa5 warm/dry/pink. Pt c/o nausea and pain at this time, WASTEWATER [employer] CIVIL ENGINEER was notified, no further orders received. 17:29 Reassessment: X-ray at bedside. aa5 17:45 Reassessment: Pt ambulated to restroom with steady gait.. aa5 18:08 Reassessment: To bedside to administer medications. Pt requesting Demerol or Fentanyl aa5 IV and Phenergan IV. Pt states "I really don't want the Ehrhardt because it doesn't really help". W[employer]EW[employer] CIVIL ENGINEER was notified of pt's request and W[employer] CIVIL ENGINEER states there is no indication for IV medications at this time, pt was notified. Pt states "fine I'll take the pills". . 18:22 Reassessment: Patient is alert, oriented x 3, equal unlabored respirations, skin aa5 warm/dry/pink. 18:22 Reassessment: Pt states "can you ask the W[employer]EWATER [employer] CIVIL ENGINEER to give me a prescription for Tylenol #3". aa5 WASTEWATER [employer] CIVIL ENGINEER was notified and W[employer]ATER [employer] CIVIL ENGINEER states that pt will only get prescription for Flexeril and Phenergan. Pt was notified. Pt appears upset. Pt states "I don't even know why I come to this place then" and walked out of ER. Vital Signs: 16:51 BP 132 / 80; Pulse 82; Resp 18 S; Temp 98.5(O); Pulse Ox 99% on R/A; Weight 165.56 kg aa5 (R); Height 5 ft. 6 in. (167.64 cm) (R); Pain 10/10; 18:20 BP 111 / 74; Pulse 76; Resp 20 S; Pulse Ox 97% on R/A; Pain 10/10; aa5 16:51 Body Mass Index 58.91 (165.56 kg, 167.64 cm) aa5 ED Course: 16:49 Patient arrived in ED. aa5 16:49 Sandi Doyle, RN is Primary Nurse. aa5 16:49 Arm band placed on. aa5 16:50 Antonietta Muhammad FNP-C is PHCP. snw 16:50 Dario Lynn MD is Attending Physician. snw 16:50 Patient has correct armband on for positive identification. Bed in low position. Call aa5 light in reach. Side rails up X2. 16:51 Triage completed. aa5 17:17 No provider procedures requiring assistance completed. aa5 17:48 Shoulder Right (2 View) XRAY In Process Unspecified. EDMS 17:49 XRAY Lumbar Spine (3 Views) In Process Unspecified. EDMS 18:22 Patient did not have IV access during this emergency room visit. aa5 Administered Medications: 18:08 Drug: [place] 5 mg-325 mg 1 tabs Route: PO; aa5 18:08 Drug: Phenergan 25 mg Route: PO; aa5 18:08 Drug: Flexeril 10 mg Route: PO; aa5 Outcome: 18:07 Discharge ordered by . snw 18:22 Discharged to home ambulatory, with family. aa5 18:22 Condition: stable 18:22 Discharge instructions given to patient, Instructed on discharge instructions, follow up and referral plans. medication usage, Demonstrated understanding of instructions, follow-up care, medications, Prescriptions given X 2. 18:24 Patient left the ED. aa5 Signatures: Dispatcher [employer] EDMS Antonietta Muhammad FNP-C PROGRAM DEVELOPER-Csnw aSndi Doyle, RN RN aa5 Corrections: (The following items were deleted from the chart) 17:17 16:52 Allergies: Demerol; aa5 aa5 18:44 18:22 Reassessment: Pt states "can you ask the W[employer] CIVIL ENGINEER to give me a prescription for Tylenol aa5 #3". W[employer]EWATER [employer] CIVIL ENGINEER was notified and W[employer] CIVIL ENGINEER states that pt will only get prescription for Flexeril and Phenergan. Pt was notified. Pt appears upset. Pt states "I don't even know why I come to this place then" . aa5 18:45 18:44 Patient left the ED. aa5 aa5
[2018-04-24] MEDS ORDERED: PROMETHAZINE 25 MG TABLET ONE (18:18)
[2018-04-24] MEDS ORDERED: CYCLOBENZAPRINE 10 MG TAB ONE (18:18)
[2018-04-24] MEDS ORDERED: HYDROCODONE/APAP 5/325 MG TAB ONE (18:18)
[2018-04-24 19:25] VITALS: TEMP 98.5
[2018-04-24 19:27] VITALS: BP 111/74; O2SAT 97
== END 2018-04-24 18:44 | disposition home or self-care (01) ==
LOC: ER 16:44
DX: S40.011A Contusion of right shoulder, initial encounter (principal); W01.0XXA Fall on same level from slipping, tripping and stumbling without subsequent striking against object, initial encounter; M54.5 Low back pain
CPT/HCPCS: 72100; 99284

== ENCOUNTER 2018-05-22 18:52 | Emergency (ER) | payer OTHER ==
[2018-05-22 19:29] LABS: Absolute Lymphocytes (CBC) 1.8 K/uL (0.7-4.9); Absolute Monocytes 0.5 K/uL (0.1-1.3); Absolute Neutrophil 4.5 K/uL (1.8-8.0); Basophils % 0.6 % (0-1.3); Eosinophils % 1.4 % (0-4.4); Hematocrit 42.2 % (36.0-45.0); MPV 8.6 fL (7.6-11.3); Monocytes % 6.7 % (3.3-12.3); RBC Red Blood Cell Count 4.17 M/uL (3.86-4.86)
[2018-05-22 19:32] LABS: Protime INR 0.99
[2018-05-22 19:45] LABS: ALT/SGPT 16 U/L (12-78); AST/SGOT 11 U/L (15-37); Albumin 3.2 g/dL (3.4-5.0); Alkaline Phosphatase 76 U/L (45-117); BUN Blood Urea Nitrogen 12 mg/dL (7-18); Bicarbonate 36 mmol/L (21-32); Bilirubin Direct < 0.1 mg/dL (0-0.2); Bilirubin Total 0.1 mg/dL (0.2-1.0); Glucose Level 113 mg/dL (74-106); Protein, Total 6.4 g/dL (6.4-8.2); Sodium Level 143 mmol/L (136-145)
[2018-05-22] MEDS ORDERED: METHYLPREDNISOLONE 125 MG INJ ONE (19:59)
[2018-05-22] MEDS ORDERED: PROMETHAZINE 25 MG/ML VIAL ONE (20:00)
[2018-05-22] MEDS ORDERED: IPRATROPIUM BROM 0.5MG/2.5ML ONE (20:00)
[2018-05-22] MEDS ORDERED: ALBUTEROL 2.5 MG/3 ML NEB SOL ONE (20:00)
[2018-05-22] MEDS ORDERED: ACETAMINOPHEN 500 MG TAB ONE (20:00)
--- NOTE | 2018-05-22 21:04 | ER ---
Nurse's Notes [facility] Name: Oleg Rosenberg Age: 48 yrs Sex: Female : 1970 Arrival Date: 05/22/2018 Time: 18:54 Bed 27 Private MD: Diagnosis: Wheezing;Drug seeking behavior Presentation: 05/22 18:57 Presenting complaint: EMS states: patient has been having difficulty breathing for 3-4 mg2 days. on Home Oxygen \T\ 4l/min. A and A tx was given on scene \T\ 1827H. also complains of chest pain from too much coughing for 3 days now, has greenish sputum and nausea. Transition of care: patient was not received from another setting of care. Onset of symptoms was May 19, 2018. Risk Assessment: Do you want to hurt yourself or someone else? Patient reports no desire to harm self or others. Initial Sepsis Screen: Does the patient meet any 2 criteria? No. Patient's initial sepsis screen is negative. Does the patient have a suspected source of infection? No. Patient's initial sepsis screen is negative. Care prior to arrival: Medication(s) given: Albuterol Neb x 1, Atrovent Neb x 1. 18:57 Method Of Arrival: EMS: [facility] mg2 18:57 Acuity: AAYUSH 3 mg2 INTERNET WEBMASTER: 19:01 LMP N/A - Hysterectomy mg2 Historical: - Allergies: 19:04 Aspirin; mg2 19:04 Dilaudid; mg2 19:04 Iodinated Contrast Media - IV Dye; mg2 19:04 Iodine; mg2 19:04 Morphine; mg2 19:04 Mucinex; mg2 19:04 NSAIDS; mg2 19:04 PENICILLINS; mg2 19:04 Zofran; mg2 - Home Meds: 19:04 albuterol sulfate 2.5 mg /3 mL (0.083 %) Inhl nebu 3 mL 4 times per day [Active]; Breo mg2 Ellipta 100-25 mcg/dose inhalation dsdv 1 puff once daily [Active]; Ambien 10 mg Oral tab nightly for Sleep-Onset Insomnia [Active]; diazepam 10 mg Oral tab 1 tab 4 times per day [Active]; Equetro 300 mg Oral CM12 1 cap 2 times per day [Active]; ProAir HFA 90 mcg/actuation inhalation HFAA 1 puff every 4-6 hours [Active]; Risperdal 2 mg Oral tab once daily [Active]; Xopenex Inhl [Active]; Advil 100 mg Oral tab 2 tabs every 4 hours [Active]; - PMHx: 19:04 Asthma; Bipolar disorder; Bronchitis; COPD; Depression; kidney cancer; mg2 - PSHx: 19:04 Hysterectomy; lap band removal; mg2 - Immunization history:: Flu vaccine is up to date. - Social history:: Smoking status: Patient/guardian denies using tobacco, Patient/guardian denies using alcohol, street drugs, IV drugs. - Ebola Screening: : No symptoms or risks identified at this time. Screenin:09 Abuse screen: Denies threats or abuse. Denies injuries from another. Nutritional mg2 screening: No deficits noted. Tuberculosis screening: No symptoms or risk factors identified. Fall Risk IV access (20 points). Assessment: 21:07 General: Appears in no apparent distress. comfortable, Behavior is calm, cooperative. mg2 Pain: Complains of pain in chest and back Pain does not radiate. Pain currently is 5 out of 10 on a pain scale. Quality of pain is described as aching, Pain began gradually, Is intermittent. Neuro: Level of Consciousness is awake, alert, obeys commands, Oriented to person, place, time, situation. Cardiovascular: Capillary refill < 3 seconds Patient's skin is warm and dry. Respiratory: Airway is patent Respiratory effort is even, unlabored, Respiratory pattern is regular, symmetrical. Respiratory: Reports cough that is productive. GI: No signs and/or symptoms were reported involving the gastrointestinal system. : No signs and/or symptoms were reported regarding the genitourinary system. EENT: No signs and/or symptoms were reported regarding the EENT system. Derm: Skin is intact, is healthy with good turgor, Skin is pink, warm \T\ dry. normal. Musculoskeletal: No signs and/or symptoms reported regarding the musculoskeletal system. 21:07 Reassessment: patient is insisting for narcotic medications and refused to wait for lab mg2 results. AMA form signed by herself. Provider is aware. patient fairly improved from the treatment provided. Vital Signs: 19:01 BP 145 / 89; Pulse 81; Resp 28; Temp 97.9(O); Pulse Ox 95% on 15% Non-rebreather mask; mg2 Weight 166.01 kg; Height 5 ft. 5 in. (165.10 cm); Pain 10/10; 20:00 BP 130 / 78; Pulse 80; Resp 24; Pulse Ox 93% on 4 lpm NC; mg2 21:05 BP 135 / 78; Pulse 82; Resp 20; Pulse Ox 94% 4 lpm ; mg2 19:01 Body Mass Index 60.90 (166.01 kg, 165.10 cm) mg2 ED Course: 18:54 Patient arrived in ED. ms 18:56 El Barrett, RN is Primary Nurse. mg2 19:01 Triage completed. mg2 19:05 Arm band placed on. mg2 19:10 Dario Lynn MD is Attending Physician. ps1 20:30 Inserted saline lock: 24 gauge in right hand, using aseptic technique. Blood collected. mg2 21:09 No provider procedures requiring assistance completed. mg2 21:09 IV discontinued, intact, bleeding controlled, No redness/swelling at site. Pressure mg2 dressing applied. Administered Medications: 19:55 Drug: SOLU-Medrol 125 mg Route: IVP; Site: right hand; mg2 20:50 Follow up: Response: No adverse reaction; Marked relief of symptoms mg2 19:56 Not Given (Patient Refused): Tylenol 1000 mg PO once mg2 19:56 Drug: Phenergan 25 mg Route: IVP; Site: right hand; mg2 20:50 Follow up: Response: No adverse reaction; Marked relief of symptoms mg2 19:56 Drug: DuoNeb (3:1) (2.5 mg - 0.5 mg) 3 ml Route: Nebulizer; mg2 20:50 Follow up: Response: No adverse reaction; Marked relief of symptoms mg2 21:06 Drug: Tylenol #3 (300 mg-30 mg) 1 tablet Route: PO; mg2 21:07 Follow up: Response: No adverse reaction; Medication administered at discharge. mg2 Outcome: 21:09 AMA AMA form signed mg2 21:09 Condition: stable 21:09 Discharge instructions given to patient, Instructed on discharge instructions, Demonstrated understanding of instructions. 21:10 Patient left the ED. mg2 Signatures: Lizbeth Monroe ms Dario Lynn MD MD ps1 El Barrett RN RN mg2
--- NOTE | 2018-05-22 21:04 | EDPHYS ---
Physician Documentation [facility] Name: Oleg Rosenberg Age: 48 yrs Sex: Female : 1970 Arrival Date: 05/22/2018 Time: 18:54 Bed 27 Private MD: ED Physician Dario Lynn HPI: 05/22 20:55 This 48 yrs old Female presents to ER via EMS with complaints of cough. ps1 20:55 patient has a history of asthma and uses brio and albuterol nebulizer and HFA. She ps1 states that she has had flu like symptoms for over 4 days and has pain associated with coughing. She is prescribed T3 and states that she is here for the pain with coughing. She states that nothing works. Pain rated as severe and out of proportion with exam. No hypoxia. Asking for demerol or fentanyl. 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 mg2 Historical: - Allergies: 19:04 Aspirin; mg2 19:04 Dilaudid; mg2 19:04 Iodinated Contrast Media - IV Dye; mg2 19:04 Iodine; mg2 19:04 Morphine; mg2 19:04 Mucinex; mg2 19:04 NSAIDS; mg2 19:04 PENICILLINS; mg2 19:04 Zofran; mg2 - Home Meds: 19:04 albuterol sulfate 2.5 mg /3 mL (0.083 %) Inhl nebu 3 mL 4 times per day [Active]; Breo mg2 Ellipta 100-25 mcg/dose inhalation dsdv 1 puff once daily [Active]; Ambien 10 mg Oral tab nightly for Sleep-Onset Insomnia [Active]; diazepam 10 mg Oral tab 1 tab 4 times per day [Active]; Equetro 300 mg Oral CM12 1 cap 2 times per day [Active]; ProAir HFA 90 mcg/actuation inhalation HFAA 1 puff every 4-6 hours [Active]; Risperdal 2 mg Oral tab once daily [Active]; Xopenex Inhl [Active]; Advil 100 mg Oral tab 2 tabs every 4 hours [Active]; - PMHx: 19:04 Asthma; Bipolar disorder; Bronchitis; COPD; Depression; kidney cancer; mg2 - PSHx: 19:04 Hysterectomy; lap band removal; mg2 - Immunization history:: Flu vaccine is up to date. - Social history:: Smoking status: Patient/guardian denies using tobacco, Patient/guardian denies using alcohol, street drugs, IV drugs. - Ebola Screening: : No symptoms or risks identified at this time. ROS: 20:55 Eyes: Negative for injury, pain, redness, and discharge, ENT: Negative for injury, ps1 pain, and discharge, Cardiovascular: Negative for chest pain, palpitations, and edema, Abdomen/GI: Negative for abdominal pain, nausea, vomiting, diarrhea, and constipation, Back: Negative for injury and pain, MS/Extremity: Negative for injury and deformity, Skin: Negative for injury, rash, and discoloration, Neuro: Negative for headache, weakness, numbness, tingling, and seizure. 20:55 Constitutional: Positive for body aches, chills, fatigue. 20:55 Respiratory: Positive for cough, with no reported sputum, wheezing. Exam: 20:55 Constitutional: This is a well developed, well nourished patient who is awake, alert, ps1 and in no acute distress. Head/Face: Normocephalic, atraumatic. Eyes: Pupils equal round and reactive to light, extra-ocular motions intact. Lids and lashes normal. Conjunctiva and sclera are non-icteric and not injected. Chest/axilla: Normal chest wall appearance and motion. Nontender with no deformity. No lesions are appreciated. Cardiovascular: Regular rate and rhythm. No gallops, murmurs, or rubs. Normal PMI, no JVD. No pulse deficits. Abdomen/GI: Soft, non-tender, with normal bowel sounds. No distension or tympany. No guarding or rebound. No evidence of tenderness throughout. MS/ Extremity: Pulses equal, no cyanosis. Neurovascular intact. Full, normal range of motion. 20:55 Respiratory: the patient does not display signs of respiratory distress, Respirations: normal, Breath sounds: wheezing: expiratory that is mild. Vital Signs: 19:01 BP 145 / 89; Pulse 81; Resp 28; Temp 97.9(O); Pulse Ox 95% on 15% Non-rebreather mask; mg2 Weight 166.01 kg; Height 5 ft. 5 in. (165.10 cm); Pain 10/10; 20:00 BP 130 / 78; Pulse 80; Resp 24; Pulse Ox 93% on 4 lpm NC; mg2 21:05 BP 135 / 78; Pulse 82; Resp 20; Pulse Ox 94% 4 lpm ; mg2 19:01 Body Mass Index 60.90 (166.01 kg, 165.10 cm) mg2 MDM: 19:45 Patient medically screened. ps1 20:55 Data reviewed: vital signs, nurses notes, lab test result(s), radiologic studies. 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 Refused tylenol. Gave breathing treatments and steroids. Addressed reasonable pain control options and she declined. Offered T3 which would be indicated for her complaint and which she is prescribed at home she then vehemently requested to AMA. . 05/22 19:12 Order name: CBC with Diff ps1 05/22 19:12 Order name: CMP ps1 05/22 19:12 Order name: CBC with Diff ps1 05/22 19:12 Order name: LFT's ps1 05/22 19:12 Order name: PT-INR ps1 05/22 19:45 Order name: Comprehensive Metabolic Panel; Complete Time: 19:55 EDMS 05/22 19:45 Order name: Liver (Hepatic) Function; Complete Time: 19:55 EDMS 05/22 19:50 Order name: CBC with Automated Diff; Complete Time: 19:55 EDMS 05/22 20:04 Order name: Protime (+INR); Complete Time: 20:18 EDMS 05/22 20:18 Order name: Troponin (emerg Dept Use Only) ps1 05/22 19:12 Order name: EKG; Complete Time: 19:13 ps1 05/22 19:12 Order name: Labs collected and sent; Complete Time: 19:21 ps1 EC:59 Rate is 72 beats/min. Rhythm is regular. QRS [place] is Normal. WA interval is normal. QRS ps1 interval is normal. QT interval is normal. No Q waves. T waves are Normal. Clinical impression: Normal ECG. Interpreted by me. Administered Medications: 19:55 Drug: SOLU-Medrol 125 mg Route: IVP; Site: right hand; mg2 20:50 Follow up: Response: No adverse reaction; Marked relief of symptoms mg2 19:56 Not Given (Patient Refused): Tylenol 1000 mg PO once mg2 19:56 Drug: Phenergan 25 mg Route: IVP; Site: right hand; mg2 20:50 Follow up: Response: No adverse reaction; Marked relief of symptoms mg2 19:56 Drug: DuoNeb (3:1) (2.5 mg - 0.5 mg) 3 ml Route: Nebulizer; mg2 20:50 Follow up: Response: No adverse reaction; Marked relief of symptoms mg2 21:06 Drug: Tylenol #3 (300 mg-30 mg) 1 tablet Route: PO; mg2 21:07 Follow up: Response: No adverse reaction; Medication administered at discharge. mg2 Disposition: 05/22/18 21:03 Patient has left against medical advice. Impression: Wheezing, Drug seeking behavior. - Patients states they are going to Home. - Condition is Stable. - Discharge Instructions: Cough, Adult, [id number]. Follow up: Private Physician; When: As needed; Reason: Further diagnostic work-up, Recheck today's complaints, Continuance of care, Re-evaluation by your physician. Follow up: Emergency Department; When: As needed; Reason: Fever > 102 F, Worsening of condition. - Problem is an ongoing problem. - Symptoms have improved. Signatures: Dispatcher [employer] EDFL Dario Lynn MD MD ps1 El Barrett RN RN mg2 Corrections: (The following items were deleted from the chart) 21:10 21:03 05/22/2018 21:03 Patients has left against medical advice. Impression: Wheezing; mg2 Drug seeking behavior. Patient states they are going to Home. Condition is Stable. Follow up: Private Physician; When: As needed; Reason: Further diagnostic work-up, Recheck today's complaints, Continuance of care, Re-evaluation by your physician. Follow up: Emergency Department; When: As needed; Reason: Fever > 102 F, Worsening of condition. Problem is an ongoing problem. Symptoms have improved. ps1
[2018-05-22] MEDS ORDERED: CODEINE 30MG/APAP 300MG TAB ONE (21:05)
[2018-05-22 21:19] VITALS: BP 145/89; TEMP 97.9; O2SAT 95
--- NOTE | 2018-05-23 11:46 | EKG ---
Test Date: 2018-05-22 Test Time: 19:59:53 Sterilization Tech: MG MEASUREMENT RESULTS: Intervals: Rate: 72 FL: 152 QRSD: 86 QT: 376 QTc: 411 Perkins: P: 46 FL: 152 QRS: 40 T: 64 INTERPRETIVE STATEMENTS: Normal sinus rhythm Nonspecific T wave abnormality Abnormal ECG Compared to ECG 03/27/2018 14:34:35 T-wave abnormality now present Electronically Signed On 05-23-18 11:43:00 WARP CHANGER by Mahendra Howard
== END 2018-05-22 21:10 | disposition left against medical advice (07) ==
LOC: ER 18:52
DX: R06.2 Wheezing (principal); Z76.5 Malingerer [conscious simulation]; J45.909 Unspecified asthma, uncomplicated; F31.9 Bipolar disorder, unspecified; F32.9 Major depressive disorder, single episode, unspecified; Z85.528 Personal history of other malignant neoplasm of kidney; Z88.0 Allergy status to penicillin; Z88.5 Allergy status to narcotic agent; Z88.6 Allergy status to analgesic agent; Z88.8 Allergy status to other drugs, medicaments and biological substances; Z91.041 Radiographic dye allergy status
CPT/HCPCS: 36415; 80053; 82248; 85025; 85610; 93005; 94640; J2550; J2930

== ENCOUNTER 2018-06-09 18:08 | Emergency (ER) | payer OTHER ==
[2018-06-09] MEDS ORDERED: DEXAMETHASONE 4 MG/ML VIAL ONE (19:09)
[2018-06-09] MEDS ORDERED: ALBUTEROL 2.5 MG/3 ML NEB SOL ONE (19:09)
--- NOTE | 2018-06-09 19:11 | RAD REPORT ---
EXAM DESCRIPTION: RAD - Chest Single View - 06/09/2018 7:05 pm CLINICAL HISTORY: Cough;Dyspnea Chest pain. COMPARISON: Chest Single View dated 03/27/2018; Chest Pa And Lat (2 Views) dated 02/27/2018; Chest P a And Lat (2 Views) dated 10/29/2017; Chest Single View dated 10/20/2017 FINDINGS: Portable technique limits examination quality. The lungs are grossly clear. The heart is mildly enlarged in size. No displaced fractures. IMPRESSION: Mild cardiomegaly.
[2018-06-09 20:43] LABS: Absolute Lymphocytes (CBC) 0.3 K/uL (0.7-4.9); Absolute Monocytes 0.1 K/uL (0.1-1.3); Absolute Neutrophil 5.3 K/uL (1.8-8.0); Basophils % 0.2 % (0-1.3); Eosinophils % 0.2 % (0-4.4); Hematocrit 37.9 % (36.0-45.0); Lymphocytes % 5.8 % (15.3-44.8); MPV 8.8 fL (7.6-11.3); Monocytes % 1.2 % (3.3-12.3)
[2018-06-09 21:05] LABS: BUN Blood Urea Nitrogen 13 mg/dL (7-18); Bicarbonate 40 mmol/L (21-32); Glucose Level 163 mg/dL (74-106); Potassium 4.6 mmol/L (3.5-5.1); Sodium Level 139 mmol/L (136-145)
--- NOTE | 2018-06-09 21:37 | ER ---
Nurse's Notes [facility] Name: Oleg Rosenberg Age: 48 yrs Sex: Female : 1970 Arrival Date: 06/09/2018 Time: 18:22 Bed 5 Private MD: Diagnosis: Vitamin B deficiency, unspecified;Chronic obstructive pulmonary disease, unspecified Presentation: 06/09 18:33 Presenting complaint: EMS states: Shortness of breath for the past 2 weeks that got aj1 worse today. Patient was seen at a clinic in [place], she was given Solu-Medrol and an albuterol and atrovent nebulizer treatment, but her shortness of breath did not improve. Patient was 71% on room air upon EMS arrival. Patient was given an additional albuterol and atrovent treatment. She is 88% on room air upon arrival to the ER. Patient is placed on O2\T\2L per nc, which brought her O2 sat up to 98%. Transition of care: patient was not received from another setting of care. Onset of symptoms was June 09, 2018. Risk Assessment: Do you want to hurt yourself or someone else? Patient reports no desire to harm self or others. Initial Sepsis Screen: Does the patient meet any 2 criteria? RR > 20 per min. No. Patient's initial sepsis screen is negative. Does the patient have a suspected source of infection? No. Patient's initial sepsis screen is negative. Care prior to arrival: None. 18:33 Method Of Arrival: EMS: [place] [facility] aj1 18:33 Acuity: AAYUSH 2 aj1 Triage Assessment: 18:45 General: Appears in no apparent distress. uncomfortable. Respiratory: Onset: The aj1 symptoms/episode began/occurred 2 weeks ago. 18:45 Respiratory: Airway is patent. 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 aj1 Historical: - Allergies: 18:38 Aspirin; aj1 18:38 Dilaudid; aj1 18:38 Iodinated Contrast Media - IV Dye; aj1 18:38 Iodine; aj1 18:38 Morphine; aj1 18:38 Mucinex; aj1 18:38 NSAIDS; aj1 18:38 PENICILLINS; aj1 18:38 Zofran; aj1 - Home Meds: 18:38 Advil 100 mg Oral tab 2 tabs every 4 hours [Active]; albuterol sulfate 2.5 mg /3 mL aj1 (0.083 %) Inhl nebu 3 mL 4 times per day [Active]; Ambien 10 mg Oral tab nightly for Sleep-Onset Insomnia [Active]; Breo Ellipta 100-25 mcg/dose inhalation dsdv 1 puff once daily [Active]; diazepam 10 mg Oral tab 1 tab 4 times per day [Active]; Equetro 300 mg Oral CM12 1 cap 2 times per day [Active]; ProAir HFA 90 mcg/actuation inhalation HFAA 1 puff every 4-6 hours [Active]; Risperdal 2 mg Oral tab once daily [Active]; - PMHx: 18:38 Asthma; Bipolar disorder; Bronchitis; COPD; Depression; kidney cancer; aj1 - PSHx: 18:38 kidney removed; lap band; lap band removal; Hysterectomy; aj1 - Immunization history:: Flu vaccine is up to date. - Social history:: Smoking status: Patient uses tobacco products, smokes one-half pack cigarettes per day. - Ebola Screening: : Patient denies travel to an Ebola-affected area in the 21 days before illness onset. Screenin:45 Abuse screen: Denies threats or abuse. Denies injuries from another. Nutritional aj1 screening: No deficits noted. Tuberculosis screening: No symptoms or risk factors identified. 22:15 Fall Risk No fall in past 12 months (0 pts). No secondary diagnosis (0 pts). No IV (0 aj1 pts). Ambulatory Aid- None/Bed Rest/Nurse Assist (0 pts). Gait- Weak (10 pts.). Mental Status- Oriented to own ability (0 pts). Total Mark Fall Scale indicates No Risk (0-24 pts). Assessment: 18:45 General: Appears uncomfortable, Behavior is calm, cooperative, appropriate for age. aj1 Pain: Denies pain. Neuro: Level of Consciousness is awake, alert, obeys commands, Oriented to person, place, time, situation, Speech is normal, Facial symmetry appears normal. Cardiovascular: Heart tones S1 S2 present Patient's skin is warm and dry. Rhythm is sinus rhythm. Respiratory: Reports shortness of breath Airway is patent Respiratory effort is even, labored, Respiratory pattern is regular, symmetrical, Breath sounds with wheezes bilaterally. the patient has moderate shortness of breath. GI: No signs and/or symptoms were reported involving the gastrointestinal system. : No signs and/or symptoms were reported regarding the genitourinary system. EENT: No signs and/or symptoms were reported regarding the EENT system. Derm: No signs and/or symptoms reported regarding the dermatologic system. Skin is pink, warm \T\ dry. normal. Musculoskeletal: No signs and/or symptoms reported regarding the musculoskeletal system. Circulation, motion, and sensation intact. 19:45 Reassessment: Patient appears in no apparent distress at this time. No changes from aj1 previously documented assessment. Patient and/or family updated on plan of care and expected duration. Pain level reassessed. Patient is alert, oriented x 3, equal unlabored respirations, skin warm/dry/pink. 20:45 Reassessment: Patient and/or family updated on plan of care and expected duration. Pain aj1 level reassessed. General: Appears in no apparent distress. comfortable, Behavior is calm, cooperative, appropriate for age. Pain: Complains of pain in back. Neuro: Level of Consciousness is awake, alert, obeys commands, Oriented to person, place, time, situation, Speech is normal, Facial symmetry appears normal. Cardiovascular: Heart tones S1 S2 present Patient's skin is warm and dry. Rhythm is sinus rhythm. Respiratory: Airway is patent Respiratory effort is even, unlabored, Respiratory pattern is regular, symmetrical. Derm: Skin is pink, warm \T\ dry. normal. Musculoskeletal: Circulation, motion, and sensation intact. 21:45 Reassessment: Patient appears in no apparent distress at this time. No changes from aj1 previously documented assessment. Patient and/or family updated on plan of care and expected duration. Pain level reassessed. Patient is alert, oriented x 3, equal unlabored respirations, skin warm/dry/pink. 22:15 Reassessment: Patient appears in no apparent distress at this time. No changes from aj1 previously documented assessment. Patient and/or family updated on plan of care and expected duration. Pain level reassessed. Patient is alert, oriented x 3, equal unlabored respirations, skin warm/dry/pink. Vital Signs: 18:38 BP 131 / 80; Pulse 68; Resp 28; Temp 97.2; Pulse Ox 88% ; aj1 18:38 Pulse Ox 98% on 2 lpm NC; aj1 19:30 BP 137 / 97; Pulse 66; Resp 24; Pulse Ox 94% on 2 lpm NC; aj1 20:00 BP 131 / 80; Pulse 86; Resp 22; Pulse Ox 95% on 2 lpm NC; aj1 20:30 BP 116 / 87; Pulse 60; Resp 20; Pulse Ox 100% on 2 lpm NC; aj1 21:00 BP 127 / 55; Pulse 80; Resp 20; Pulse Ox 93% on 2 lpm NC; aj1 21:30 BP 132 / 81; Pulse 74; Resp 20; Pulse Ox 93% on 2 lpm NC; aj1 22:00 BP 105 / 46; Pulse 83; Resp 20; Pulse Ox 94% on 2 lpm NC; aj1 ED Course: 18:22 Patient arrived in ED. aj1 18:32 Nancy Kang, RN is Primary Nurse. aj1 18:36 Triage completed. aj1 18:36 Antonietta Muhammad FNP-C is [facility]. snw 18:36 Nicola Goldsmith MD is Attending Physician. snw 18:40 Arm band placed on. aj1 18:45 Patient has correct armband on for positive identification. phototypesetting equipment monitor on. Pulse aj1 ox on. NIBP on. 18:45 No provider procedures requiring assistance completed. aj1 19:05 Chest Single View XRAY In Process Unspecified. EDMS 22:08 IV discontinued, intact, bleeding controlled, No redness/swelling at site. Pressure aj1 dressing applied. Administered Medications: 21:00 Drug: Decadron - Dexamethasone 10 mg Route: IVP; Site: left hand; aj1 22:01 Follow up: Response: No adverse reaction aj1 21:00 Drug: Albuterol 2.5 mg Route: Inhalation; aj1 22:01 Follow up: Response: No adverse reaction aj1 22:00 Not Given (Patient Refused): Cyanocobalamin 1000 mcg IM once aj1 Outcome: 21:37 Discharge ordered by . snw 22:15 Discharged to home via wheelchair. aj1 22:15 Condition: good 22:15 Discharge instructions given to patient, Instructed on discharge instructions, follow up and referral plans. medication usage, Demonstrated understanding of instructions, follow-up care, medications, Prescriptions given X 1. 22:19 Patient left the ED. aj1 Signatures: Dispatcher [employer] EDMS Nancy Kang, RN RN aj1 Antonietta Muhammad, INTERN-C INTERN-Csnw Corrections: (The following items were deleted from the chart) 23:01 23:00 Fall Risk No fall in past 12 months (0 pts). No secondary diagnosis (0 pts). No aj1 IV (0 pts). Ambulatory Aid- None/Bed Rest/Nurse Assist (0 pts). Gait- Weak (10 pts.). Mental Status- Oriented to own ability (0 pts). Total Mark Fall Scale indicates No Risk (0-24 pts). aj1
--- NOTE | 2018-06-09 21:37 | EDPHYS ---
Physician Documentation [facility] Name: Oleg Rosenberg Age: 48 yrs Sex: Female : 1970 Arrival Date: 06/09/2018 Time: 18:22 Bed 5 Private MD: ED Physician Nicola Goldsmith HPI: 06/09 19:55 This 48 yrs old Female presents to ER via EMS with complaints of Shortness Of snw Breath. 19:55 The patient has shortness of breath at rest. Onset: The symptoms/episode began/occurred snw suddenly, 2 week(s) ago, and became persistent. Duration: The symptoms are continuous. Associated signs and symptoms: Pertinent positives: chest pain, with cough. Severity of symptoms: At their worst the symptoms were moderate. The patient has experienced similar episodes in the past, chronically. The patient has been recently seen by a physician: the patient's primary care provider, 2 week(s) ago, with similar presenting complaints. 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 aj1 Historical: - Allergies: 18:38 Aspirin; aj1 18:38 Dilaudid; aj1 18:38 Iodinated Contrast Media - IV Dye; aj1 18:38 Iodine; aj1 18:38 Morphine; aj1 18:38 Mucinex; aj1 18:38 NSAIDS; aj1 18:38 PENICILLINS; aj1 18:38 Zofran; aj1 - Home Meds: 18:38 Advil 100 mg Oral tab 2 tabs every 4 hours [Active]; albuterol sulfate 2.5 mg /3 mL aj1 (0.083 %) Inhl nebu 3 mL 4 times per day [Active]; Ambien 10 mg Oral tab nightly for Sleep-Onset Insomnia [Active]; Breo Ellipta 100-25 mcg/dose inhalation dsdv 1 puff once daily [Active]; diazepam 10 mg Oral tab 1 tab 4 times per day [Active]; Equetro 300 mg Oral CM12 1 cap 2 times per day [Active]; ProAir HFA 90 mcg/actuation inhalation HFAA 1 puff every 4-6 hours [Active]; Risperdal 2 mg Oral tab once daily [Active]; - PMHx: 18:38 Asthma; Bipolar disorder; Bronchitis; COPD; Depression; kidney cancer; aj1 - PSHx: 18:38 kidney removed; lap band; lap band removal; Hysterectomy; aj1 - Immunization history:: Flu vaccine is up to date. - Social history:: Smoking status: Patient uses tobacco products, smokes one-half pack cigarettes per day. - Ebola Screening: : Patient denies travel to an Ebola-affected area in the 21 days before illness onset. ROS: 19:54 Eyes: Negative for injury, pain, redness, and discharge, ENT: Negative for injury, snw pain, and discharge, Neck: Negative for injury, pain, and swelling, Cardiovascular: Negative for chest pain, palpitations, and edema. 19:54 Abdomen/GI: Negative for abdominal pain, nausea, vomiting, diarrhea, and constipation, Back: Negative for injury and pain, : Negative for injury, bleeding, discharge, and swelling, MS/Extremity: Negative for injury and deformity, Skin: Negative for injury, rash, and discoloration, Neuro: Negative for headache, weakness, numbness, tingling, and seizure. 19:54 Constitutional: Positive for body aches, malaise. 19:54 Respiratory: Positive for shortness of breath, wheezing. Exam: 19:54 Head/Face: Normocephalic, atraumatic. Eyes: Pupils equal round and reactive to light, snw extra-ocular motions intact. Lids and lashes normal. Conjunctiva and sclera are non-icteric and not injected. Cornea within normal limits. Periorbital areas with no swelling, redness, or edema. ENT: Nares patent. No nasal discharge, no septal abnormalities noted. Tympanic membranes are normal and external auditory canals are clear. Oropharynx with no redness, swelling, or masses, exudates, or evidence of obstruction, uvula midline. Mucous membranes moist. Neck: Trachea midline, no thyromegaly or masses palpated, and no cervical lymphadenopathy. Supple, full range of motion without nuchal rigidity, or vertebral point tenderness. No Meningismus. Chest/axilla: Normal chest wall appearance and motion. Nontender with no deformity. No lesions are appreciated. Cardiovascular: Regular rate and rhythm with a normal S1 and S2. No gallops, murmurs, or rubs. Normal PMI, no JVD. No pulse deficits. 19:54 Abdomen/GI: Soft, non-tender, with normal bowel sounds. No distension or tympany. No guarding or rebound. No evidence of tenderness throughout. Back: No spinal tenderness. No costovertebral tenderness. Full range of motion. Skin: Warm, dry with normal turgor. Normal color with no rashes, no lesions, and no evidence of cellulitis. MS/ Extremity: Pulses equal, no cyanosis. Neurovascular intact. Full, normal range of motion. Neuro: Awake and alert, GCS 15, oriented to person, place, time, and situation. Cranial nerves II-XII grossly intact. Motor strength 5/5 in all extremities. Sensory grossly intact. Cerebellar exam normal. Normal gait. 19:54 Constitutional: The patient appears in no acute distress, alert, awake, anxious, obese. 19:54 Respiratory: the patient does not display signs of respiratory distress, Respirations: no acute changes, Breath sounds: + upper airway congestion. wheezing: Vital Signs: 18:38 BP 131 / 80; Pulse 68; Resp 28; Temp 97.2; Pulse Ox 88% ; aj1 18:38 Pulse Ox 98% on 2 lpm NC; aj1 19:30 BP 137 / 97; Pulse 66; Resp 24; Pulse Ox 94% on 2 lpm NC; aj1 20:00 BP 131 / 80; Pulse 86; Resp 22; Pulse Ox 95% on 2 lpm NC; aj1 20:30 BP 116 / 87; Pulse 60; Resp 20; Pulse Ox 100% on 2 lpm NC; aj1 21:00 BP 127 / 55; Pulse 80; Resp 20; Pulse Ox 93% on 2 lpm NC; aj1 21:30 BP 132 / 81; Pulse 74; Resp 20; Pulse Ox 93% on 2 lpm NC; aj1 22:00 BP 105 / 46; Pulse 83; Resp 20; Pulse Ox 94% on 2 lpm NC; aj1 MDM: 18:40 Patient medically screened. snw 21:39 Data reviewed: vital signs, nurses notes. Data interpreted: Pulse oximetry: on 4L(s) snw per nasal canula, is 93 %. Interpretation: pt has O2 at home and is typically on 4L . 06/09 18:52 Order name: CBC with Diff snw 06/09 18:52 Order name: Chem 7; Complete Time: 21:07 snw 06/09 18:47 Order name: Chest Single View XRAY; Complete Time: 19:16 snw 02/07 18:52 Order name: Blood Culture* snw Administered Medications: 21:00 Drug: Decadron - Dexamethasone 10 mg Route: IVP; Site: left hand; 22: Follow up: Response: No adverse reaction 21:00 Drug: Albuterol 2.5 mg Route: Inhalation; 22:01 Follow up: Response: No adverse reaction 22:00 Not Given (Patient Refused): Cyanocobalamin 1000 mcg IM once aj Disposition: 06/10 12:48 Co-signature as Attending Physician, Nicola Goldsmith MD I agree with the assessment and wa plan of care. Disposition: 06/09/18 21:37 Discharged to Home. Impression: Vitamin B deficiency, unspecified, Chronic obstructive pulmonary disease, unspecified. - Condition is Stable. - Discharge Instructions: Chronic Obstructive Pulmonary Disease. - Prescriptions for Prednisone 20 mg Oral Tablet - take 2 tablet by ORAL route once daily for 5 days; 10 tablet. - Medication Reconciliation Form, Thank You Letter, Antibiotic Education, Prescription Opioid Use form. - Follow up: Private Physician; When: 1 - 2 days; Reason: Recheck today's complaints, Continuance of care, Re-evaluation by your physician. Follow up: Emergency Department; When: As needed; Reason: Worsening of condition. Signatures: Dispatcher [employer] Nancy Rodriguez RN RN aj1 Antonietta Muhammad, TEACHER DRAMATICS-C TEACHER DRAMATICS-Csnw Nicola Goldsmith MD MD az Corrections: (The following items were deleted from the chart) 06/09 22:19 21:37 06/09/2018 21:37 Discharged to Home. Impression: Vitamin B deficiency, aj1 unspecified; Chronic obstructive pulmonary disease, unspecified. Condition is Stable. Forms are Medication Reconciliation Form, Thank You Letter, Antibiotic Education, Prescription Opioid Use. Follow up: Private Physician; When: 1 - 2 days; Reason: Recheck today's complaints, Continuance of care, Re-evaluation by your physician. Follow up: Emergency Department; When: As needed; Reason: Worsening of condition. snw
[2018-06-09] MEDS ORDERED: CYANOCOBALAMIN 1000MCG/ML INJ ONE (22:36)
[2018-06-09 22:38] VITALS: TEMP 97.2
[2018-06-09 22:46] VITALS: BP 105/46; O2SAT 94
[2018-06-10 00:20] LABS: Blood Morphology Comment NOTED (NOT SEEN); Platelet Estimate ADEQ; Stomatocytes 3+; Urine White Blood Cell Casts OK
== END 2018-06-09 22:19 | disposition home or self-care (01) ==
LOC: ER 18:08
DX: J44.9 Chronic obstructive pulmonary disease, unspecified (principal); E53.9 Vitamin B deficiency, unspecified; J45.909 Unspecified asthma, uncomplicated; F31.9 Bipolar disorder, unspecified; F32.9 Major depressive disorder, single episode, unspecified; F17.210 Nicotine dependence, cigarettes, uncomplicated; Z85.528 Personal history of other malignant neoplasm of kidney; Z88.0 Allergy status to penicillin; Z88.5 Allergy status to narcotic agent; Z88.6 Allergy status to analgesic agent; Z88.8 Allergy status to other drugs, medicaments and biological substances; Z91.041 Radiographic dye allergy status; Z91.048 Other nonmedicinal substance allergy status
CPT/HCPCS: 36415; 71045; 80048; 85025; 87040; 96374; 99285; J3420

== ENCOUNTER 2018-07-23 19:36 | Emergency (ER) | payer OTHER ==
--- OUTSIDE RECORDS SUMMARY | 2018-07-23 19:39 | XMS REPORT ---
:1970 [facility] Address [address] [place] [address] Dr. Bernardo [address] [place] [id number] Care Team Providers Name Role Phone Unavailable Unavailable Unavailable Problems This patient has no known problems. Allergies, Adverse Reactions, Alerts This patient has no known allergies or adverse reactions. Medications This patient has no known medications.
[2018-07-23] MEDS ORDERED: METHYLPREDNISOLONE 125 MG INJ ONE (20:53)
[2018-07-23] MEDS ORDERED: MAGNE/ALUM HYDROXD 30 ML UCUP ONE (20:53)
[2018-07-23] MEDS ORDERED: ALBUTEROL 2.5 MG/3 ML NEB SOL ONE (20:53)
[2018-07-23] MEDS ORDERED: IPRATROPIUM BROM 0.5MG/2.5ML ONE (20:54)
[2018-07-23] MEDS ORDERED: LIDOCAINE VISCOUS 2% SOLN 15 ML UDC ONE (20:54)
--- NOTE | 2018-07-23 21:01 | RAD REPORT ---
EXAM DESCRIPTION: Andriy Single View07/23/2018 8:50 pm CLINICAL HISTORY: Chest pain COMPARISON: June 2018 FINDINGS: The lungs appear clear of acute infiltrate. The heart is mildly to moderately enlarged IMPRESSION: No acute abnormalities displayed
[2018-07-23 21:07] LABS: Absolute Lymphocytes (CBC) 1.5 K/uL (0.7-4.9); Absolute Monocytes 0.5 K/uL (0.1-1.3); Absolute Neutrophil 3.6 K/uL (1.8-8.0); Basophils % 0.3 % (0-1.3); Eosinophils % 1.1 % (0-4.4); Hematocrit 37.8 % (36.0-45.0); Lymphocytes % 26.3 % (15.3-44.8); MPV 8.4 fL (7.6-11.3); Monocytes % 8.4 % (3.3-12.3); RBC Red Blood Cell Count 3.79 M/uL (3.86-4.86)
[2018-07-23] MEDS ORDERED: ONDANSETRON 4 MG/2 ML VIAL ONE (21:07)
[2018-07-23 21:17] LABS: ALT/SGPT 12 U/L (12-78); AST/SGOT 5 U/L (15-37); Albumin 3.1 g/dL (3.4-5.0); Alkaline Phosphatase 83 U/L (45-117); BUN Blood Urea Nitrogen 12 mg/dL (7-18); Bicarbonate 35 mmol/L (21-32); Bilirubin Direct < 0.1 mg/dL (0-0.2); Glucose Level 96 mg/dL (74-106); Lipase 105 U/L (73-393); Potassium 3.9 mmol/L (3.5-5.1); Protein, Total 6.2 g/dL (6.4-8.2); Sodium Level 144 mmol/L (136-145)
[2018-07-23 21:18] LABS: Bilirubin Total < 0.1 mg/dL (0.2-1.0)
[2018-07-23] MEDS ORDERED: FENTANYL CITR 100 MCG/2 ML ONE ×2 (21:46→23:54)
[2018-07-23] MEDS ORDERED: ACETAMINOPHEN 500 MG TAB ONE (22:33)
[2018-07-23 22:46] LABS: Urine Blood NEGATIVE (NEG); Urine Glucose NEGATIVE (NEG); Urine Protein TRACE (NEG); Urine pH 6.5 (5.0-7.0)
[2018-07-23] MEDS ORDERED: PANTOPRAZOLE 40 MG INJ ONE (23:05)
[2018-07-24] MEDS ORDERED: HALOPERIDOL LACT 5 MG/ML INJ ONE (00:30)
--- NOTE | 2018-07-24 02:05 | ER ---
Nurse's Notes [facility] Name: Oleg Rosenberg Age: 48 yrs Sex: Female : 1970 Arrival Date: 07/23/2018 Time: 19:38 Bed 20 Private MD: Diagnosis: Presentation: 07/23 19:45 Presenting complaint: EMS states: they were toned out for report of pt with difficulty bb breathing, abdominal pain with nausea and vomiting x 3 days. Transition of care: patient was not received from another setting of care. Onset of symptoms was July 20, 2018. Risk Assessment: Do you want to hurt yourself or someone else? Patient reports no desire to harm self or others. Initial Sepsis Screen: Does the patient meet any 2 criteria? No. Patient's initial sepsis screen is negative. Does the patient have a suspected source of infection? No. Patient's initial sepsis screen is negative. Care prior to arrival: Medication(s) given: Albuterol Neb Atrovent Neb. 19:45 Method Of Arrival: EMS: [facility] 19:45 Acuity: AAYUSH 3 bb Triage Assessment: 19:59 General: Appears in no apparent distress. uncomfortable, Behavior is calm, cooperative, cc3 appropriate for age. Pain: Complains of pain in whole abdomen Quality of pain is described as aching, Pain began 2-3 days ago. EENT: No signs and/or symptoms were reported regarding the EENT system. Neuro: Level of Consciousness is awake, alert, obeys commands, Oriented to person, place, time, situation, Appropriate for age. Cardiovascular: Patient's skin is warm and dry. Respiratory: Reports shortness of breath at rest on exertion since today Onset: The symptoms/episode began/occurred today, the patient has moderate shortness of breath. GI: Abdomen is round obese. : No signs and/or symptoms were reported regarding the genitourinary system. Derm: No signs and/or symptoms reported regarding the dermatologic system. Musculoskeletal: Circulation, motion, and sensation intact. Range of motion: intact in all extremities. 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 bb Historical: - Allergies: 19:49 Aspirin; bb 19:49 Dilaudid; bb 19:49 Iodinated Contrast Media - IV Dye; bb 19:49 Iodine; bb 19:49 Morphine; bb 19:49 Mucinex; bb 19:49 NSAIDS; bb 19:49 PENICILLINS; bb - Home Meds: 19:49 Advil 100 mg Oral tab 2 tabs every 4 hours [Active]; albuterol sulfate 2.5 mg /3 mL bb (0.083 %) Inhl nebu 3 mL 4 times per day [Active]; Ambien 10 mg Oral tab nightly for Sleep-Onset Insomnia [Active]; Breo Ellipta 100-25 mcg/dose inhalation dsdv 1 puff once daily [Active]; diazepam 10 mg Oral tab 1 tab 4 times per day [Active]; Equetro 300 mg Oral CM12 1 cap 2 times per day [Active]; ProAir HFA 90 mcg/actuation inhalation HFAA 1 puff every 4-6 hours [Active]; Risperdal 2 mg Oral tab once daily [Active]; Xopenex Inhl [Active]; - PMHx: 19:49 Asthma; Bipolar disorder; Bronchitis; COPD; Depression; kidney cancer; bb - Immunization history:: Adult Immunizations up to date. - Social history:: Smoking status: Patient/guardian denies using tobacco, Patient/guardian denies using alcohol, street drugs. - Ebola Screening: : No symptoms or risks identified at this time. Screenin:59 Abuse screen: Denies threats or abuse. Denies injuries from another. Nutritional cc3 screening: No deficits noted. Tuberculosis screening: No symptoms or risk factors identified. Fall Risk Ambulatory Aid- None/Bed Rest/Nurse Assist (0 pts). Gait- Normal/Bed Rest/Wheelchair (0 pts) Mental Status- Oriented to own ability (0 pts). Assessment: 19:59 Respiratory: Airway uses oxygen at home at 4LPM by nasal cannula Respiratory effort is cc3 even, unlabored, Respiratory pattern is tachypnea Breath sounds are clear bilaterally. 19:59 Cardiovascular: Rhythm is regular. cc3 20:18 Reassessment: Patient appears in no apparent distress at this time. Patient and/or cc3 family updated on plan of care and expected duration. Pain level reassessed. Patient is alert, oriented x 3, equal unlabored respirations, skin warm/dry/pink. 21:50 Reassessment: Patient appears in no apparent distress at this time. Patient and/or cc3 family updated on plan of care and expected duration. Pain level reassessed. Patient is alert, oriented x 3, equal unlabored respirations, skin warm/dry/pink. Patient taken to CT scan department by the corrosion technician. 22:15 Reassessment: Patient appears in no apparent distress at this time. Patient and/or cc3 family updated on plan of care and expected duration. Pain level reassessed. Patient is alert, oriented x 3, equal unlabored respirations, skin warm/dry/pink. Patient came back from CT scan department, awaiting result. 23:29 Reassessment: Patient appears in no apparent distress at this time. Patient and/or cc3 family updated on plan of care and expected duration. Pain level reassessed. Patient is alert, oriented x 3, equal unlabored respirations, skin warm/dry/pink. 07/24 00:06 Reassessment: Patient appears in no apparent distress at this time. Patient and/or cc3 family updated on plan of care and expected duration. Pain level reassessed. Patient is alert, oriented x 3, equal unlabored respirations, skin warm/dry/pink. 01:00 Reassessment: Patient and/or family updated on plan of care and expected duration. Pain jb4 level reassessed. Patient is alert, oriented x 3, equal unlabored respirations, skin warm/dry/pink. PT reports increased pain, provider notified, no new orders at this time. 01:59 Reassessment: pt opted to go home against medical advice although risks and bb consequences were explained Dr Gutierrez was notified. Pt signed AMA form and ambulated with steady gait to exit notified pt she would be called with results of CT scan and if symptoms change or worsen to return to ED immediately for further evaluation and or treatment as needed. Vital Signs: 07/23 19:49 BP 136 / 72; Pulse 73; Resp 24 S; Temp 98.2(O); Pulse Ox 92% on R/A; Weight 166.01 kg bb (R); Height 5 ft. 3 in. (160.02 cm) (R); Pain 10/10; 20:30 BP 131 / 56; Pulse 62; Resp 23 S; Pulse Ox 94% on 2 lpm NC; cc3 21:19 BP 134 / 83; Pulse 60; Resp 22 S; Pulse Ox 92% on 2 lpm NC; cc3 22:30 BP 141 / 75; Pulse 62; Resp 22 S; Pulse Ox 91% on 2 lpm NC; cc3 23:07 BP 138 / 73; Pulse 61; Resp 22 S; Pulse Ox 90% on 2 lpm NC; cc3 07/24 02:02 BP 133 / 67; Pulse 63; Resp 20 S; Temp 98.3(O); Pulse Ox 91% on 4 lpm NC; bb 07/23 19:49 Body Mass Index 64.83 (166.01 kg, 160.02 cm) bb ED Course: 07/23 19:38 Patient arrived in ED. ds1 19:38 Reid Gutierrez MD is Attending Physician. tw4 19:48 Triage completed. bb 19:49 Arm band placed on Patient placed in an exam room, on a stretcher, on oxygen, on pulse bb oximetry. 19:59 Ana Christopher is Primary Nurse. cc3 19:59 Patient has correct armband on for positive identification. Bed in low position. Call cc3 light in reach. Side rails up X 1. Pulse ox on. NIBP on. 20:15 Inserted saline lock: 20 gauge in left antecubital area, using aseptic technique. Blood cc3 collected. 20:51 CXR XRAY In Process Unspecified. EDMS 07/24 00:05 Report given to HARDIK Ely. cc3 00:18 Camacho Mojica, HARDIK is Primary Nurse. jb4 02:03 No provider procedures requiring assistance completed. IV discontinued, intact, bb bleeding controlled, No redness/swelling at site. Pressure dressing applied. 03:11 CT Abd/Pelvis - Without Cont In Process Unspecified. EDMS 07:03 Abdomen 1 View XRAY In Process Unspecified. EDMS Administered Medications: 07/23 20:44 Drug: GI Cocktail without - (Maalox Suspension 30 ml, Lidocaine Liquid 2 % 15 cc3 ml) Route: PO; 21:15 Follow up: Response: No adverse reaction cc3 20:45 Drug: DuoNeb (3:1) (2.5 mg - 0.5 mg) 3 ml Route: Nebulizer; cc3 21:15 Follow up: Response: No adverse reaction; Marked relief of symptoms cc3 20:47 Drug: SOLU-Medrol 125 mg Route: IVP; Site: left antecubital; cc3 21:15 Follow up: Response: No adverse reaction; Marked relief of symptoms cc3 20:54 Drug: Zofran 4 mg Route: IVP; Site: left antecubital; cc3 21:15 Follow up: Response: No adverse reaction; Nausea is decreased cc3 21:40 Drug: fentaNYL (PF) 50 mcg Route: IVP; Site: left antecubital; cc3 22:00 Follow up: Response: No adverse reaction; Pain is decreased cc3 22:20 Drug: Tylenol 1000 mg Route: PO; cc3 22:29 Follow up: Response: No adverse reaction cc3 23:00 Drug: ProTONIX 40 mg Route: IVP; Site: left antecubital; jb4 23:15 Follow up: Response: No adverse reaction cc3 23:45 Drug: fentaNYL (PF) 50 mcg Route: IVP; Site: left antecubital; cc3 07/24 00:00 Follow up: Response: No adverse reaction; Pain is decreased cc3 00:36 Drug: HALdol 2 mg Route: IVP; Site: right antecubital; jb4 00:45 Follow up: Response: No adverse reaction; Pain is decreased jb4 Outcome: 02:03 AMA AMA form signed bb 02:03 Condition: stable 02:03 Instructed on need to return to ED if symptoms change or worsen. 02:04 Patient left the ED. bb Signatures: Dispatcher [facility] VargasSuyapa marc ds1 Jemima Mcwilliams RN RN bb Camacho Mojica RN RN jb4 Reid Gutierrez MD MD tw4 Ana Christopher cc3 Corrections: (The following items were deleted from the chart) 07/23 19:51 19:45 Care prior to arrival: None. bb bb 21:00 19:49 Allergies: Zofran; bb cc3 23:04 21:19 BP 134 / 83; Pulse 60bpm; Resp 22bpm; Spontaneous; Pulse Ox 96% 4 lpm Nasal cc3 Cannula; cc3 23:04 20:30 BP 131 / 56; Pulse 62bpm; Resp 23bpm; Spontaneous; Pulse Ox 98% 4 lpm Nasal cc3 Cannula; cc3
[2018-07-24 02:24] VITALS: BP 133/67; TEMP 98.3; O2SAT 91
--- NOTE | 2018-07-24 10:10 | RAD REPORT ---
EXAM DESCRIPTION: RAD - Abdomen Single View - 07/24/2018 8:19 am CLINICAL HISTORY: ABD PAIN Pain COMPARISON: Abdomen Pelvis Wo Contrast dated 07/23/2018 FINDINGS: The bowel gas pattern is non-obstructive. No evidence of free air or pneumatosis. No suspi cious calcifications. No significant bony findings. Postsurgical clips are present left abdomen. IMPRESSION: Negative examination.
--- NOTE | 2018-07-25 02:06 | EDPHYS ---
Physician Documentation [facility] Name: Oleg Rosenberg Age: 48 yrs Sex: Female : 1970 Arrival Date: 07/23/2018 Time: 19:38 Bed 20 Private MD: ED Physician Reid Gutierrez HPI: 07/24 06:45 This 48 yrs old Female presents to ER via EMS with complaints of Breathing tw4 Difficulty. 06:45 The patient has shortness of breath at rest. Onset: The symptoms/episode began/occurred tw4 today. Duration: The symptoms are continuous, and are unchanged since they started. The patient's shortness of breath has no apparent modifying factors. Associated signs and symptoms: The patient has no apparent associated signs or symptoms. Severity of symptoms: At their worst the symptoms were moderate in the emergency department the symptoms are unchanged. The patient has not experienced similar symptoms in the past. 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 LMP N/A - Hysterectomy bb Historical: - Allergies: 19:49 Aspirin; bb 19:49 Dilaudid; bb 19:49 Iodinated Contrast Media - IV Dye; bb 19:49 Iodine; bb 19:49 Morphine; bb 19:49 Mucinex; bb 19:49 NSAIDS; bb 19:49 PENICILLINS; bb - Home Meds: 19:49 Advil 100 mg Oral tab 2 tabs every 4 hours [Active]; albuterol sulfate 2.5 mg /3 mL bb (0.083 %) Inhl nebu 3 mL 4 times per day [Active]; Ambien 10 mg Oral tab nightly for Sleep-Onset Insomnia [Active]; Breo Ellipta 100-25 mcg/dose inhalation dsdv 1 puff once daily [Active]; diazepam 10 mg Oral tab 1 tab 4 times per day [Active]; Equetro 300 mg Oral CM12 1 cap 2 times per day [Active]; ProAir HFA 90 mcg/actuation inhalation HFAA 1 puff every 4-6 hours [Active]; Risperdal 2 mg Oral tab once daily [Active]; Xopenex Inhl [Active]; - PMHx: 19:49 Asthma; Bipolar disorder; Bronchitis; COPD; Depression; kidney cancer; bb - Immunization history:: Adult Immunizations up to date. - Social history:: Smoking status: Patient/guardian denies using tobacco, Patient/guardian denies using alcohol, street drugs. - Ebola Screening: : No symptoms or risks identified at this time. ROS: 07/24 06:45 Constitutional: Negative for fever, chills, and weight loss, Eyes: Negative for injury, tw4 pain, redness, and discharge, Cardiovascular: Negative for chest pain, palpitations, and edema, Abdomen/GI: Negative for abdominal pain, nausea, vomiting, diarrhea, and constipation. Back: Negative for injury and pain, MS/Extremity: Negative for injury and deformity, Skin: Negative for injury, rash, and discoloration. Respiratory: Positive for cough, shortness of breath, wheezing. Exam: 06:59 Constitutional: This is a well developed, well nourished patient who is awake, alert, tw4 and in no acute distress. Head/Face: Normocephalic, atraumatic. Chest/axilla: Normal chest wall appearance and motion. Nontender with no deformity. No lesions are appreciated. Cardiovascular: Regular rate and rhythm with a normal S1 and S2. No gallops, murmurs, or rubs. Normal PMI, no JVD. No pulse deficits. Respiratory: Lungs have equal breath sounds bilaterally, clear to auscultation and percussion. No rales, rhonchi or wheezes noted. No increased work of breathing, no retractions or nasal flaring. 06:59 MS/ Extremity: Pulses equal, no cyanosis. Neurovascular intact. Full, normal range of motion. Neuro: Awake and alert, GCS 15, oriented to person, place, time, and situation. Cranial nerves II-XII grossly intact. Motor strength 5/5 in all extremities. Sensory grossly intact. Cerebellar exam normal. Normal gait. 06:59 Abdomen/GI: Inspection: abdomen appears normal, Bowel sounds: diminished, Palpation: mild abdominal tenderness, in the epigastric area. Vital Signs: 07/23 19:49 BP 136 / 72; Pulse 73; Resp 24 S; Temp 98.2(O); Pulse Ox 92% on R/A; Weight 166.01 kg bb (R); Height 5 ft. 3 in. (160.02 cm) (R); Pain 10/10; 20:30 BP 131 / 56; Pulse 62; Resp 23 S; Pulse Ox 94% on 2 lpm NC; cc3 21:19 BP 134 / 83; Pulse 60; Resp 22 S; Pulse Ox 92% on 2 lpm NC; cc3 22:30 BP 141 / 75; Pulse 62; Resp 22 S; Pulse Ox 91% on 2 lpm NC; cc3 23:07 BP 138 / 73; Pulse 61; Resp 22 S; Pulse Ox 90% on 2 lpm NC; cc3 07/24 02:02 BP 133 / 67; Pulse 63; Resp 20 S; Temp 98.3(O); Pulse Ox 91% on 4 lpm NC; bb 07/23 19:49 Body Mass Index 64.83 (166.01 kg, 160.02 cm) bb MDM: 07/23 19:38 Patient medically screened. tw4 07/24 06:59 Differential diagnosis: Anemia Anxiety Reaction asthma. Data reviewed: vital signs, tw4 nurses notes. Test interpretation: by ED physician or midlevel provider: plain radiologic studies. Counseling: I had a detailed discussion with the patient and/or guardian regarding: the historical points, exam findings, and any diagnostic results supporting the discharge/admit diagnosis, lab results, radiology results. Medication response: albuterol nebulizer treatment(s) markedly relieved the patient's wheezing. Refusal of service: The patient/guardian displays adequate decision making capability and despite a detailed discussion of alternatives, benefits, risks, and consequences refuses: CT Scan, all lab tests, Medications. Special discussion:. ED course: Pt is well known to the ED and has come to the ED with multiple complaints. Pt asked for pain medications repeatedly for abdominal pain, however pain did not appear to be severe. Pt was not tachycardic or otherwise in distress. Pt waited for CT however CT software was dysfunctional and could not obtain final reading from radiology regarding any acute finding. pt decided to leave [place]. Subsequently after leaving we were able to obtain report of CT scan which revealed no acute abnormality. 07/23 20:22 Order name: Basic Metabolic Panel; Complete Time: 21:31 tw4 07/23 20:22 Order name: CBC with Diff tw07/23 20:22 Order name: Creatinine for Radiology; Complete Time: 21:31 tw4 07/23 20:22 Order name: Hepatic Function; Complete Time: 21:31 tw4 07/23 20:22 Order name: Lipase; Complete Time: 21:31 tw4 07/23 22:39 Order name: Urine Dipstick--Ancillary (enter results) bb 07/23 20:29 Order name: CXR XRAY; Complete Time: 21:31 tw4 07/23 20:30 Order name: CT Abd/Pelvis - Without Cont tw4 07/24 01:23 Order name: Abdomen 1 View XRAY tw4 07/23 20:22 Order name: IV Saline Lock; Complete Time: 20:34 tw4 07/23 20:22 Order name: Labs collected and sent; Complete Time: 20:34 tw4 Administered Medications: 07/23 20:44 Drug: GI Cocktail without - (Maalox Suspension 30 ml, Lidocaine Liquid 2 % 15 cc3 ml) Route: PO; 21:15 Follow up: Response: No adverse reaction cc3 20:45 Drug: DuoNeb (3:1) (2.5 mg - 0.5 mg) 3 ml Route: Nebulizer; cc3 21:15 Follow up: Response: No adverse reaction; Marked relief of symptoms cc3 20:47 Drug: SOLU-Medrol 125 mg Route: IVP; Site: left antecubital; cc3 21:15 Follow up: Response: No adverse reaction; Marked relief of symptoms cc3 20:54 Drug: Zofran 4 mg Route: IVP; Site: left antecubital; cc3 21:15 Follow up: Response: No adverse reaction; Nausea is decreased cc3 21:40 Drug: fentaNYL (PF) 50 mcg Route: IVP; Site: left antecubital; cc3 22:00 Follow up: Response: No adverse reaction; Pain is decreased cc3 22:20 Drug: Tylenol 1000 mg Route: PO; cc3 22:29 Follow up: Response: No adverse reaction cc3 23:00 Drug: ProTONIX 40 mg Route: IVP; Site: left antecubital; jb4 23:15 Follow up: Response: No adverse reaction cc3 23:45 Drug: fentaNYL (PF) 50 mcg Route: IVP; Site: left antecubital; cc3 07/24 00:00 Follow up: Response: No adverse reaction; Pain is decreased cc3 00:36 Drug: HALdol 2 mg Route: IVP; Site: right antecubital; jb4 00:45 Follow up: Response: No adverse reaction; Pain is decreased jb4 Disposition: 07/24/18 02:04 Patient has left against medical advice. - Patients states they are going to Home. - Condition is Stable. Signatures: Dispatcher [employer] Jemima Mckinley, RN RN bb Raphael Millan PA PA [id number] Camacho Mojica RN RN jb4 Reid Gutierrez MD MD tw4 Ana Christopher 3 Corrections: (The following items were deleted from the chart) 07/23 21:00 19:49 Allergies: Zofran; bb cc3 07/24 07:00 06:45 Constitutional: This is a well developed, well nourished patient who is awake, tw4 alert, and in no acute distress. Head/Face: Normocephalic, atraumatic. Chest/axilla: Normal chest wall appearance and motion. Nontender with no deformity. No lesions are appreciated. Cardiovascular: Regular rate and rhythm with a normal S1 and S2. No gallops, murmurs, or rubs. Normal PMI, no JVD. No pulse deficits. Respiratory: Lungs have equal breath sounds bilaterally, clear to auscultation and percussion. No rales, rhonchi or wheezes noted. No increased work of breathing, no retractions or nasal flaring. Abdomen/GI: Soft, non-tender, with normal bowel sounds. No distension or tympany. No guarding or rebound. No evidence of tenderness throughout. MS/ Extremity: Pulses equal, no cyanosis. Neurovascular intact. Full, normal range of motion. Neuro: Awake and alert, GCS 15, oriented to person, place, time, and situation. Cranial nerves II-XII grossly intact. Motor strength 5/5 in all extremities. Sensory grossly intact. Cerebellar exam normal. Normal gait. tw4
--- NOTE | 2018-07-25 11:51 | RAD REPORT ---
EXAM DESCRIPTION: CT Abdomen and Pelvis Without Intravenous Contrast CLINICAL HISTORY: The patient is 48 years old and is Female; ABD PAIN TECHNIQUE: Axial computed tomography images of the abdomen and pelvis without intravenous contrast. Sagittal and coronal reformatted images were created and reviewed. This CT exam was performed usi ng one or more of the following dose reduction techniques: automated exposure control, adjustment o f the mA and/or kV according to patient size, and/or use of iterative reconstruction technique. COMPARISON: None. FINDINGS: LUNG BASES: Bibasilar atelectasis versus scarring, right greater than left. No consolid ation, pleural effusion or pneumothorax. ABDOMEN: LIVER: Unremarkable. GALLBLADDER AND BILE DUCTS: Unremarkable. No calcified stones. No ductal dilation. PANCREAS: Unremarkable. No ductal dilation. SPLEEN: Unremarkable. No splenomegaly. ADRENALS: Unremarkable. No mass. KIDNEYS AND URETERS: Prior left nephrectomy. Fat-containing 1.2 cm right renal lesion is present. Multiple smaller similar appearing findings are seen scattered throughout the inferior pole of the ri ght kidney. STOMACH AND BOWEL: Unremarkable. No obstruction. No mucosal thickening. PELVIS: APPENDIX: The appendix is seen and is within normal limits BLADDER: The bladder is decompressed. No stones. REPRODUCTIVE: Prior hysterectomy. ABDOMEN and PELVIS: INTRAPERITONEAL SPACE: Evidence of prior epigastric surgery with moderate size fluid filled hiatal hernia. BONES/JOINTS: No acute fracture. No dislocation. SOFT TISSUES: Unremarkable. VASCULATURE: Unremarkable. No abdominal aortic aneurysm. LYMPH NODES: Unremarkable. No enlarged lymph nodes. IMPRESSION: 1. No acute abdominal or pelvic abnormality. 2. Prior epigastric surgery with moderate size hiatal hernia and widened esophageal diaphragmatic h iatus. 3. Prior left nephrectomy. Multiple fat-containing right renal lesions measuring up to 1.2 cm. Find ings most suggestive of angiomyolipomas. Correlate with past medical history of tuberous sclerosis. 4. Prior cholecystectomy and hysterectomy. Electronically signed by: Scooter Douglas DO 07/24/2018 4:03 AM CDT Due to temporary technical issues with the PACS/Fluency reporting system, reports are being signed by the in house radiologist as a courtesy to ensure prompt reporting. The interpreting radiologist is f rubioly responsible for the content of the report.
== END 2018-07-24 02:04 | disposition left against medical advice (07) ==
LOC: ER 19:36
DX: R06.02 Shortness of breath (principal)
CPT/HCPCS: 36415; 71045; 74018; 74176; 80048; 80076; 81003; 83690; 85025; 94640; 99285; C9113; J1630; J2405; J2930; J3010

== ENCOUNTER 2018-09-22 19:33 | Emergency (ER) | payer OTHER ==
--- OUTSIDE RECORDS SUMMARY | 2018-09-22 19:35 | XMS REPORT ---
:1970 [facility] Address [address] [place] [address] Dr. Bernardo [address] [place] [id number] Care Team Providers Name Role Phone Unavailable Unavailable Unavailable Problems This patient has no known problems. Allergies, Adverse Reactions, Alerts This patient has no known allergies or adverse reactions. Medications This patient has no known medications.
[2018-09-22 20:32] LABS: Absolute Lymphocytes (CBC) 0.8 K/uL (0.7-4.9); Absolute Monocytes 0.4 K/uL (0.1-1.3); Absolute Neutrophil 4.5 K/uL (1.8-8.0); Basophils % 0.4 % (0-1.3); Eosinophils % 2.8 % (0-4.4); Hematocrit 39.9 % (36.0-45.0); Lymphocytes % 12.9 % (15.3-44.8); MPV 8.1 fL (7.6-11.3); Monocytes % 6.5 % (3.3-12.3); RBC Red Blood Cell Count 3.94 M/uL (3.86-4.86)
[2018-09-22] MEDS ORDERED: PROMETHAZINE 25 MG/ML VIAL ONE ×2 (20:37→22:11)
[2018-09-22] MEDS ORDERED: FENTANYL CITR 100 MCG/2 ML ONE ×2 (20:38→21:01)
[2018-09-22 20:54] LABS: ALT/SGPT 15 U/L (12-78); AST/SGOT 7 U/L (15-37); Alkaline Phosphatase 81 U/L (45-117); BUN Blood Urea Nitrogen 11 mg/dL (7-18); Bicarbonate 38 mmol/L (21-32); Bilirubin Direct < 0.1 mg/dL (0-0.2); Bilirubin Total 0.2 mg/dL (0.2-1.0); Glucose Level 101 mg/dL (74-106); Lipase 65 U/L (73-393); Protein, Total 6.1 g/dL (6.4-8.2); Sodium Level 142 mmol/L (136-145)
--- NOTE | 2018-09-22 21:07 | RAD REPORT ---
EXAM DESCRIPTION: CT - Abdomen Pelvis Wo Contrast - 09/22/2018 8:39 pm CLINICAL HISTORY: Abdominal pain COMPARISON: July 2018 TECHNIQUE: Computed axial tomography of the abdomen and pelvis was obtained. IV and oral contrast we re not requested. All CT scans are performed using dose optimization technique as appropriate and may include automated exposure control or mA/KV adjustment according to patient size. FINDINGS: The evaluation of solid organs, vessels and bowel is limited secondary to the lack of con trast administration. Moderate hiatal hernia The liver, spleen, pancreas, and adrenals appear grossly normal. A left nephrectomy has been performed. Tiny right renal angiomyolipomas suspected An adnexal mass is not seen. A hysterectomy has been performed. There is no evidence of diverticulitis Tiny umbilical hernia IMPRESSION: No acute abnormality is displayed.
--- NOTE | 2018-09-22 21:08 | RAD REPORT ---
EXAM DESCRIPTION: Andriy Single View09/22/2018 8:38 pm CLINICAL HISTORY: Chest pain COMPARISON: none FINDINGS: The lungs appear clear of acute infiltrate. The heart is mildly to moderately enlarged IMPRESSION: No acute abnormalities displayed
--- NOTE | 2018-09-22 21:14 | EDPHYS ---
Physician Documentation [facility] Name: Oleg Rosenberg Age: 48 yrs Sex: Female : 1970 Arrival Date: 09/22/2018 Time: 19:37 Bed 5 Private MD: ED Physician Héctor Clarke HPI: 09/22 20:07 This 48 yrs old Female presents to ER via EMS with complaints of Abdominal pm1 pain. 20:07 The patient presents with abdominal pain that is diffuse. Onset: The symptoms/episode pm1 began/occurred 1 day(s) ago. The symptoms do not radiate. Associated signs and symptoms: Pertinent positives: nausea and vomiting, shortness of breath, productive cough, Pertinent negatives: constipation, diarrhea, dysuria, fever. The symptoms are described as achy. Modifying factors: The symptoms are alleviated by nothing, the symptoms are aggravated by nothing. Severity of pain: in the emergency department the pain is actually worse. The patient has experienced similar episodes in the past, multiple times. Patient seen in the ER last month with similar complaint of shortness of breath with a primary complaint of abdominal pain. 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: 19:35 LMP N/A - Hysterectomy fc Historical: - Allergies: 19:51 Aspirin; fc 19:51 Morphine; fc 19:51 Dilaudid; fc 19:51 NSAIDS; fc 19:51 Zofran; fc 19:51 Iodinated Contrast Media - IV Dye; fc 19:51 Iodine; fc 19:51 Mucinex; fc 19:51 PENICILLINS; fc - Home Meds: 19:51 Risperdal 1 mg oral tab 1 tab three times a day [Active]; Equetro 300 mg Oral CM12 1 fc cap 2 times per day [Active]; Cogentin Oral 1 mg three times a day [Active]; omeprazole 40 mg Oral cpDR 1 cap once daily [Active]; diazepam 5 mg oral tab 1 tab 4 times per day [Active]; albuterol sulfate 2.5 mg /3 mL (0.083 %) Inhl nebu 3 mL 4 times per day [Active]; Xopenex Inhl every 6 hours [Active]; ProAir HFA 90 mcg/actuation inhalation HFAA 1 puff every 4-6 hours [Active]; Ambien 10 mg Oral tab qhs prn for Sleep-Onset Insomnia [Active]; - PMHx: 19:51 Bipolar disorder; COPD; Asthma; Depression; Bronchitis; kidney cancer; fc - PSHx: 19:51 lap band insertion and removal; Hysterectomy; fc - Immunization history:: Last tetanus immunization: up to date. - Social history:: Smoking status: Patient/guardian denies using tobacco, Patient/guardian denies using alcohol, street drugs. - Ebola Screening: : Patient negative for fever greater than or equal to 101.5 degrees Fahrenheit, and additional compatible Ebola Virus Disease symptoms Patient denies exposure to infectious person Patient denies travel to an Ebola-affected area in the 21 days before illness onset. ROS: 20:07 Constitutional: Negative for fever, chills, and weight loss, Eyes: Negative for injury, pm1 pain, redness, and discharge, ENT: Negative for injury, pain, and discharge, Neck: Negative for injury, pain, and swelling, Cardiovascular: Negative for chest pain, palpitations, and edema. 20:07 Back: Negative for injury and pain, : Negative for injury, bleeding, discharge, and swelling, MS/Extremity: Negative for injury and deformity, Skin: Negative for injury, rash, and discoloration, Neuro: Negative for headache, weakness, numbness, tingling, and seizure. 20:07 Respiratory: Positive for cough, with green sputum, shortness of breath, Negative for wheezing. 20:07 Abdomen/GI: Positive for abdominal pain, nausea and vomiting, Negative for diarrhea, constipation. Exam: 20:07 Constitutional: This is a well developed, well nourished patient who is awake, alert, pm1 and in no acute distress. Head/Face: Normocephalic, atraumatic. Eyes: Pupils equal round and reactive to light, extra-ocular motions intact. Lids and lashes normal. Conjunctiva and sclera are non-icteric and not injected. Cornea within normal limits. Periorbital areas with no swelling, redness, or edema. ENT: Nares patent. No nasal discharge, no septal abnormalities noted. Tympanic membranes are normal and external auditory canals are clear. Oropharynx with no redness, swelling, or masses, exudates, or evidence of obstruction, uvula midline. Mucous membranes moist. Neck: Trachea midline, no thyromegaly or masses palpated, and no cervical lymphadenopathy. Supple, full range of motion without nuchal rigidity, or vertebral point tenderness. No Meningismus. Chest/axilla: Normal chest wall appearance and motion. Nontender with no deformity. No lesions are appreciated. Cardiovascular: Regular rate and rhythm with a normal S1 and S2. No gallops, murmurs, or rubs. Normal PMI, no JVD. No pulse deficits. Respiratory: Lungs have equal breath sounds bilaterally, clear to auscultation and percussion. No rales, rhonchi or wheezes noted. No increased work of breathing, no retractions or nasal flaring. 20:07 Back: No spinal tenderness. No costovertebral tenderness. Full range of motion. Skin: Warm, dry with normal turgor. Normal color with no rashes, no lesions, and no evidence of cellulitis. MS/ Extremity: Pulses equal, no cyanosis. Neurovascular intact. Full, normal range of motion. 20:07 Abdomen/GI: Inspection: obese Bowel sounds: normal, Palpation: soft, mild abdominal tenderness, in the abdomen diffusely, mass, is not appreciated, rebound tenderness, is not appreciated. 20:07 Neuro: Orientation: is normal, Motor: is normal, moves all fours. Vital Signs: 19:35 BP 112 / 58; Pulse 85; Resp 24; Temp 99.9(O); Pulse Ox 86% on R/A; Weight 166.01 kg fc (R); Height 5 ft. 3 in. (160.02 cm) (R); Pain 9/10; 20:40 BP 112 / 83; Pulse 86; Resp 18; Temp 98.6(O); Pulse Ox 98% on 2 lpm NC; ao 21:55 BP 120 / 80; Pulse 79; Resp 20; Pulse Ox 97% on 2 lpm NC; ao 19:35 Body Mass Index 64.83 (166.01 kg, 160.02 cm) fc MDM: 19:59 Patient medically screened. pm1 21:13 Data reviewed: vital signs. pm1 21:13 Counseling: I had a detailed discussion with the patient and/or guardian regarding: the pm1 historical points, exam findings, and any diagnostic results supporting the discharge/admit diagnosis, lab results, radiology results, the need for outpatient follow up, to return to the emergency department if symptoms worsen or persist or if there are any questions or concerns that arise at home. 09/22 20:07 Order name: Basic Metabolic Panel; Complete Time: 21:02 pm1 09/22 20:07 Order name: CBC with Diff; Complete Time: 20:49 pm1 09/22 20:07 Order name: Chest Single View XRAY; Complete Time: 21:11 pm1 09/22 20:07 Order name: Creatinine for Radiology; Complete Time: 21:02 pm1 09/22 20:07 Order name: Hepatic Function; Complete Time: 21:02 pm1 09/22 20:07 Order name: Lipase; Complete Time: 21:02 pm1 09/22 20:07 Order name: IV Saline Lock; Complete Time: 20:33 pm1 09/22 20:08 Order name: CT Abd/Pelvis - Without Cont; Complete Time: 21:11 pm1 09/22 20:07 Order name: Labs collected and sent; Complete Time: 20:34 pm1 Administered Medications: 20:31 Drug: fentaNYL (PF) 25 mcg Route: IVP; Site: left antecubital; ao 22:30 Follow up: Response: No adverse reaction ao 20:32 Drug: Phenergan 12.5 mg Route: IVP; Site: left antecubital; ao 22:29 Follow up: Response: No adverse reaction ao 20:40 Drug: fentaNYL (PF) 50 mcg Route: IVP; Site: left antecubital; ao 22:30 Follow up: Response: No adverse reaction ao 22:03 Drug: Phenergan 12.5 mg Route: IVP; Site: left antecubital; ao 22:30 Follow up: Response: No adverse reaction ao 22:03 Drug: GI Cocktail without - (Maalox Suspension 30 ml, Lidocaine Liquid 2 % 15 ao ml) Route: PO; 22:31 Follow up: Response: No adverse reaction ao 22:20 Drug: Demerol 25 mg Route: IVP; Site: left antecubital; ao 22:35 Follow up: Response: No adverse reaction ao Disposition: 23:00 Co-signature as Attending Physician, Héctor Clarke MD. gs Disposition: 09/22/18 21:14 Discharged to Home. Impression: Unspecified abdominal pain, Chronic obstructive pulmonary disease, unspecified. - Condition is Stable. - Discharge Instructions: Abdominal Pain, Adult, Chronic Obstructive Pulmonary Disease. - Prescriptions for Medrol (Hero) 4 mg Oral Tablets, Dose Pack - take 1 tablet by ORAL route as directed - follow package instructions; 1 packet. Bentyl 20 mg Oral Tablet - take 1 tablet by ORAL route every 6 hours As needed; 20 tablet. promethazine 25 mg Oral Tablet - take 1 tablet by ORAL route every 6 hours As needed; 20 tablet. - Medication Reconciliation Form, Thank You Letter, Antibiotic Education, Prescription Opioid Use form. - Follow up: Emergency Department; When: As needed; Reason: Worsening of condition. Follow up: Private Physician; When: 2 - 3 days; Reason: Recheck today's complaints, Continuance of care, Re-evaluation by your physician. - Problem is new. - Symptoms have improved. Signatures: Dispatcher [employer] EDMS Beatrice Abraham RN RN Olman Thompson RN RN ao Marinas, Patrick, EQUIPMENT DETAILER EQUIPMENT DETAILER pm1 Héctor Clarke MD MD gs Corrections: (The following items were deleted from the chart) 21:16 21:14 09/22/2018 21:14 Discharged to Home. Impression: Unspecified abdominal pain. pm1 Condition is Stable. Forms are Medication Reconciliation Form, Thank You Letter, Antibiotic Education, Prescription Opioid Use. Follow up: Emergency Department; When: As needed; Reason: Worsening of condition. Follow up: Private Physician; When: 2 - 3 days; Reason: Recheck today's complaints, Continuance of care, Re-evaluation by your physician. Problem is new. Symptoms have improved. pm1 22:35 21:16 09/22/2018 21:14 Discharged to Home. Impression: Unspecified abdominal pain; ao Chronic obstructive pulmonary disease, unspecified. Condition is Stable. Discharge Instructions: Abdominal Pain, Adult. Forms are Medication Reconciliation Form, Thank You Letter, Antibiotic Education, Prescription Opioid Use. Follow up: Emergency Department; When: As needed; Reason: Worsening of condition. Follow up: Private Physician; When: 2 - 3 days; Reason: Recheck today's complaints, Continuance of care, Re-evaluation by your physician. Problem is new. Symptoms have improved. pm1 09/23 04:13 09/22 22:35 09/22/2018 21:14 Discharged to Home. Impression: Unspecified abdominal ao pain; Chronic obstructive pulmonary disease, unspecified. Condition is Stable. Discharge Instructions: Abdominal Pain, Adult, Chronic Obstructive Pulmonary Disease. Prescriptions for Medrol (Hero) 4 mg Oral Tablets, Dose Pack - take 1 tablet by ORAL route as directed - follow package instructions; 1 packet, Bentyl 20 mg Oral Tablet - take 1 tablet by ORAL route every 6 hours As needed; 20 tablet, promethazine 25 mg Oral Tablet - take 1 tablet by ORAL route every 6 hours As needed; 20 tablet. and Forms are Medication Reconciliation Form, Thank You Letter, Antibiotic Education, Prescription Opioid Use. Follow up: Emergency Department; When: As needed; Reason: Worsening of condition. Follow up: Private Physician; When: 2 - 3 days; Reason: Recheck today's complaints, Continuance of care, Re-evaluation by your physician. Problem is new. Symptoms have improved. ao
--- NOTE | 2018-09-22 21:14 | ER ---
Nurse's Notes [facility] Name: Oleg Rosenberg Age: 48 yrs Sex: Female : 1970 Arrival Date: 09/22/2018 Time: 19:37 Bed 5 Private MD: Diagnosis: Unspecified abdominal pain;Chronic obstructive pulmonary disease, unspecified Presentation: 09/22 19:35 Presenting complaint: Patient states: that she started having cough with green sputum fc and shortness of breath yesterday. Having pain to lower chest and upper abd due to increased coughing. Also having nausea. Transition of care: patient was not received from another setting of care. Onset of symptoms was September 21, 2018. Risk Assessment: Do you want to hurt yourself or someone else? Patient reports no desire to harm self or others. Initial Sepsis Screen: Does the patient meet any 2 criteria? RR > 20 per min. Yes Does the patient have a suspected source of infection? No. Patient's initial sepsis screen is negative. Care prior to arrival: Medication(s) given: Albuterol Neb x 1, Atrovent Neb x 1. 19:35 Method Of Arrival: EMS: [facility] 19:35 Acuity: AAYUSH 3 fc Triage Assessment: 19:48 General: Behavior is cooperative, agitated. Respiratory: Onset: The symptoms/episode ao began/occurred at an unknown time. the patient has moderate shortness of breath. Respiratory: Airway is patent Respiratory effort is labored. 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 LMP N/A - Hysterectomy fc Historical: - Allergies: 19:51 Aspirin; fc 19:51 Morphine; fc 19:51 Dilaudid; fc 19:51 NSAIDS; fc 19:51 Zofran; fc 19:51 Iodinated Contrast Media - IV Dye; fc 19:51 Iodine; fc 19:51 Mucinex; fc 19:51 PENICILLINS; fc - Home Meds: 19:51 Risperdal 1 mg oral tab 1 tab three times a day [Active]; Equetro 300 mg Oral CM12 1 fc cap 2 times per day [Active]; Cogentin Oral 1 mg three times a day [Active]; omeprazole 40 mg Oral cpDR 1 cap once daily [Active]; diazepam 5 mg oral tab 1 tab 4 times per day [Active]; albuterol sulfate 2.5 mg /3 mL (0.083 %) Inhl nebu 3 mL 4 times per day [Active]; Xopenex Inhl every 6 hours [Active]; ProAir HFA 90 mcg/actuation inhalation HFAA 1 puff every 4-6 hours [Active]; Ambien 10 mg Oral tab qhs prn for Sleep-Onset Insomnia [Active]; - PMHx: 19:51 Bipolar disorder; COPD; Asthma; Depression; Bronchitis; kidney cancer; fc - PSHx: 19:51 lap band insertion and removal; Hysterectomy; fc - Immunization history:: Last tetanus immunization: up to date. - Social history:: Smoking status: Patient/guardian denies using tobacco, Patient/guardian denies using alcohol, street drugs. - Ebola Screening: : Patient negative for fever greater than or equal to 101.5 degrees Fahrenheit, and additional compatible Ebola Virus Disease symptoms Patient denies exposure to infectious person Patient denies travel to an Ebola-affected area in the 21 days before illness onset. Screenin:35 Nutritional screening: No deficits noted. Tuberculosis screening: No symptoms or risk fc factors identified. Fall Risk None identified. 19:46 Abuse screen: Denies threats or abuse. fc Assessment: 19:44 General: Appears uncomfortable, Mild distress. Pain:. Neuro: Level of Consciousness is ao awake, alert, Oriented to person, place, time, situation, Appropriate for age Moves all extremities. Full function Speech is normal, Facial symmetry appears normal. Cardiovascular: Reports shortness of breath, Rhythm is regular. Respiratory: Reports shortness of breath at rest Airway is patent Respiratory effort is even, unlabored, Breath sounds are diminished Breath sounds with wheezes. GI: Abdomen is round obese. : No signs and/or symptoms were reported regarding the genitourinary system. EENT: No signs and/or symptoms were reported regarding the EENT system. Derm: Skin is intact, Skin is pink, warm \T\ dry. normal, Skin temperature is warm. Musculoskeletal: Circulation, motion, and sensation intact. Range of motion: intact in all extremities. 20:55 Reassessment: Patient appears in no apparent distress at this time. Patient and/or ao family updated on plan of care and expected duration. Pain level reassessed. Patient is alert, oriented x 3, equal unlabored respirations, skin warm/dry/pink. 22:18 Reassessment: Received a verbal order from Santos Fierro NP to medicate patient with ao Demerol 25 mg. Patient will be medicated before DC. 22:34 Reassessment: DC home. DC instructions given to patient. Patient agree with POC and to ao follow up with PCP. 09/23 04:12 Reassessment: Chart was reactivated to complete documentation. Patient had left ED at ao 2235 on 09/22. Vital Signs: 09/22 19:35 BP 112 / 58; Pulse 85; Resp 24; Temp 99.9(O); Pulse Ox 86% on R/A; Weight 166.01 kg fc (R); Height 5 ft. 3 in. (160.02 cm) (R); Pain 9/10; 20:40 BP 112 / 83; Pulse 86; Resp 18; Temp 98.6(O); Pulse Ox 98% on 2 lpm NC; ao 21:55 BP 120 / 80; Pulse 79; Resp 20; Pulse Ox 97% on 2 lpm NC; ao 19:35 Body Mass Index 64.83 (166.01 kg, 160.02 cm) ED Course: 19:35 Arm band placed on Patient placed in an exam room, on a stretcher. fc 19:35 Patient has correct armband on for positive identification. Bed in low position. Call light in reach. Side rails up X2. secured entrance monitor on. Pulse ox on. NIBP on. 19:37 Patient arrived in ED. 19:37 Oxygen administration via nasal cannula \T\ 4L/min Response to oxygen therapy: symptoms improved. 19:43 Triage completed. fc 19:44 Olman Justice, RN is Primary Nurse. ao 19:47 Patient has correct armband on for positive identification. secured entrance monitor on. Pulse ao ox on. NIBP on. 19:59 Santos Fierro NP is PHCP. pm1 19:59 Héctor Clarke MD is Attending Physician. pm1 20:[address] nj 20:34 Inserted saline lock: 22 gauge in left antecubital area, using aseptic technique. Blood ao collected. 20:39 Chest Single View XRAY In Process Unspecified. EDMS 20:40 CT Abd/Pelvis - Without Cont In Process Unspecified. EDMS 22:33 No provider procedures requiring assistance completed. IV discontinued, intact, ao bleeding controlled, No redness/swelling at site. Pressure dressing applied. 09/23 04:08 Primary Nurse role handed off by Olman Justice RN ao Administered Medications: 09/22 20:31 Drug: fentaNYL (PF) 25 mcg Route: IVP; Site: left antecubital; ao 22:30 Follow up: Response: No adverse reaction ao 20:32 Drug: Phenergan 12.5 mg Route: IVP; Site: left antecubital; ao 22:29 Follow up: Response: No adverse reaction ao 20:40 Drug: fentaNYL (PF) 50 mcg Route: IVP; Site: left antecubital; ao 22:30 Follow up: Response: No adverse reaction ao 22:03 Drug: Phenergan 12.5 mg Route: IVP; Site: left antecubital; ao 22:30 Follow up: Response: No adverse reaction ao 22:03 Drug: GI Cocktail without - (Maalox Suspension 30 ml, Lidocaine Liquid 2 % 15 ao ml) Route: PO; 22:31 Follow up: Response: No adverse reaction ao 22:20 Drug: Demerol 25 mg Route: IVP; Site: left antecubital; ao 22:35 Follow up: Response: No adverse reaction ao Outcome: 21:14 Discharge ordered by MD. pm1 22:33 Discharged to home via wheelchair. ao 22:33 Condition: stable 22:33 Discharge instructions given to patient, Instructed on discharge instructions, Demonstrated understanding of instructions, follow-up care, medications, Prescriptions given X 3. 22:35 Patient left the ED. ao 09/23 04:13 Patient left the ED. ao Signatures: Dispatcher [employer] EDMS Beatrice Abraham RN HARDIK Olman Justice RN RN ao Marinas, Patrick, JANINE BUYER AGENT pm1 Ganga Orozco
[2018-09-22] MEDS ORDERED: MAGNE/ALUM HYDROXD 30 ML UCUP ONE (22:10)
[2018-09-22] MEDS ORDERED: LIDOCAINE VISCOUS 2% SOLN 15 ML UDC ONE (22:11)
[2018-09-22] MEDS ORDERED: MEPERIDINE HCL 25 MG/0.5 ML ONE (22:19)
[2018-09-22 22:55] VITALS: TEMP 98.6
[2018-09-22 22:57] VITALS: BP 120/80; O2SAT 97
== END 2018-09-23 04:13 | disposition home or self-care (01) ==
LOC: ER 19:33
DX: J44.9 Chronic obstructive pulmonary disease, unspecified (principal); F32.9 Major depressive disorder, single episode, unspecified; F31.9 Bipolar disorder, unspecified; Z88.0 Allergy status to penicillin; Z88.5 Allergy status to narcotic agent; Z88.6 Allergy status to analgesic agent; Z88.8 Allergy status to other drugs, medicaments and biological substances; Z85.528 Personal history of other malignant neoplasm of kidney; Z91.041 Radiographic dye allergy status; Z91.048 Other nonmedicinal substance allergy status
CPT/HCPCS: 36415; 71045; 74176; 80048; 80076; 83690; 85025; 96374; 96375; 99285; J2175; J2550; J3010

== ENCOUNTER 2018-10-07 13:20 | Emergency (ER) | payer OTHER ==
--- OUTSIDE RECORDS SUMMARY | 2018-10-07 13:41 | XMS REPORT ---
:1970 [facility] Address [address] [place] [address] Dr. Bernardo [address] [place] [id number] Care Team Providers Name Role Phone Unavailable Unavailable Unavailable Problems This patient has no known problems. Allergies, Adverse Reactions, Alerts This patient has no known allergies or adverse reactions. Medications This patient has no known medications.
[2018-10-07] MEDS ORDERED: LEVALBUTEROL 1.25 MG/3 ML NEB ONE (13:48)
[2018-10-07] MEDS ORDERED: METHYLPREDNISOLONE 125 MG INJ ONE (14:14)
--- NOTE | 2018-10-07 14:17 | RAD REPORT ---
EXAM DESCRIPTION: RAD - Chest Single View - 10/07/2018 2:09 pm CLINICAL HISTORY: Cough;COPD Chest pain. COMPARISON: Chest Single View dated 09/22/2018; Chest Single View dated 07/23/2018; Chest Single View dated 06/09/2018; Chest Single View dated 03/27/2018 FINDINGS: Portable technique limits examination quality. Mild interstitial prominence is seen. Linear subsegmental atelectasis is present in left lung base. T he heart is prominent in size. No displaced fractures. IMPRESSION: Mild CHF is possible.
[2018-10-07 14:34] LABS: Absolute Lymphocytes (CBC) 1.1 K/uL (0.7-4.9); Absolute Monocytes 0.4 K/uL (0.1-1.3); Absolute Neutrophil 4.5 K/uL (1.8-8.0); Basophils % 0.4 % (0-1.3); Eosinophils % 0.8 % (0-4.4); Hematocrit 40.6 % (36.0-45.0); Lymphocytes % 18.8 % (15.3-44.8); Monocytes % 6.6 % (3.3-12.3); RBC Red Blood Cell Count 4.01 M/uL (3.86-4.86)
[2018-10-07] MEDS ORDERED: NA CHLORIDE 0.9% 1,000 ML ONE (14:52)
[2018-10-07] MEDS ORDERED: MEPERIDINE HCL 25 MG/0.5 ML ONE ×2 (15:23→16:43)
[2018-10-07 15:57] LABS: BUN Blood Urea Nitrogen 15 mg/dL (7-18); Glucose Level 89 mg/dL (74-106); Sodium Level 139 mmol/L (136-145)
[2018-10-07 15:59] LABS: Bicarbonate 41 mmol/L (21-32)
--- NOTE | 2018-10-07 16:11 | EDPHYS ---
Physician Documentation [facility] Name: Oleg Rosenberg Age: 48 yrs Sex: Female : 1970 Arrival Date: 10/07/2018 Time: 13:24 Bed 25 Private MD: ED Physician Ihsan Song HPI: 10/07 13:26 This 48 yrs old Female presents to ER via Unassigned with complaints of sob. rn 13:26 The patient has shortness of breath with light activity. Onset: The symptoms/episode rn began/occurred 2 day(s) ago. Duration: The symptoms are intermittent. The patient's shortness of breath is aggravated by coughing, exertion, light activity. Severity of symptoms: At their worst the symptoms were moderate in the emergency department the symptoms have improved. The patient has experienced similar episodes in the past. The patient has been recently seen by a physician: The patient has been recently seen at the [facility] Emergency Department. Reports cough for a week, increased sob for 2 days, green sputum, no fever, no sick contacts, improved with single breathing treatment by EMS, normally on 4L O2 at home. No chest pain. Reports chronic back pain and requests pain medication immediately upon arrival. Denies new trauma or weakness/bowel or bladder problems. . 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 - Hysterectomy ca1 Historical: - Allergies: 13:38 Aspirin; ca1 13:38 Dilaudid; ca1 13:38 Iodinated Contrast Media - IV Dye; ca1 13:38 Iodine; ca1 13:38 Morphine; ca1 13:38 Mucinex; ca1 13:38 NSAIDS; ca1 13:38 PENICILLINS; ca1 13:38 Zofran; ca1 - Home Meds: 13:38 albuterol sulfate 2.5 mg /3 mL (0.083 %) Inhl nebu 3 mL 4 times per day [Active]; ca1 Ambien 10 mg Oral tab qhs prn for Sleep-Onset Insomnia [Active]; diazepam 5 mg Oral tab 1 tab 4 times per day [Active]; Equetro 300 mg Oral CM12 1 cap 2 times per day [Active]; ProAir HFA 90 mcg/actuation inhalation HFAA 1 puff every 4-6 hours [Active]; Xopenex Inhl every 6 hours [Active]; - PMHx: 13:38 Asthma; Bipolar disorder; Bronchitis; COPD; Depression; kidney cancer; ca1 - PSHx: 13:38 lap band insertion and removal; Hysterectomy; kidney L removed; ca1 - Immunization history:: Adult Immunizations up to date, Flu vaccine is up to date. - Social history:: Smoking status: Patient/guardian denies using tobacco, but has a distant history of tobacco abuse. - Family history:: not pertinent. - Ebola Screening: : Patient negative for fever greater than or equal to 101.5 degrees Fahrenheit, and additional compatible Ebola Virus Disease symptoms Patient denies exposure to infectious person Patient denies travel to an Ebola-affected area in the 21 days before illness onset. - Hospitalizations: : No recent hospitalization is reported. ROS: 13:26 Constitutional: Negative for fever, chills, and weight loss, Eyes: Negative for injury, rn pain, redness, and discharge, Neck: Negative for injury, pain, and swelling, Cardiovascular: Negative for chest pain, palpitations, and edema, Respiratory: + cough/sob and wheezing Abdomen/GI: Negative for abdominal pain, nausea, vomiting, diarrhea, and constipation, MS/Extremity: Negative for injury and deformity, Skin: Negative for injury, rash, and discoloration, Neuro: Negative for headache, numbness, tingling, and seizure. Exam: 13:26 Constitutional: Obese woman, no acute distress. Head/Face: Normocephalic, atraumatic. rn Eyes: Pupils equal round and reactive to light, extra-ocular motions intact. Lids and lashes normal. Conjunctiva and sclera are non-icteric and not injected. Cornea within normal limits. Periorbital areas with no swelling, redness, or edema. ENT: dry MM and lips Cardiovascular: Regular rate and rhythm, no murmur, distal pulses intact Respiratory: + faint exp wheezing bilaterally, speaking full sentences, no retractions. Abdomen/GI: soft, non-tender MS/ Extremity: Pulses equal, no cyanosis. Neurovascular intact. Full, normal range of motion. Equal circumference. Neuro: Awake and alert, GCS 15, oriented to person, place, time, and situation. Cranial nerves II-XII grossly intact. Motor strength 5/5 in all extremities. Sensory grossly intact. Vital Signs: 13:38 BP 123 / 99; Pulse 76; Resp 23 S; Temp 98.3(O); Pulse Ox 87% on R/A; Weight 215.91 kg; ca1 Height 5 ft. 7 in. (170.18 cm); Pain 10/10; 14:27 BP 120 / 75; Pulse 68; Resp 21 S; Pulse Ox 97% on 4 lpm NC; ca1 15:30 BP 119 / 68; Pulse 71; Resp 20; Temp 98.1(O); Pulse Ox 85% on 4 lpm NC; ca1 15:48 BP 122 / 93; Pulse 69; Resp 28 S; Pulse Ox 68% on R/A; ca1 15:50 Pulse 85; Resp 20 S; Pulse Ox 94% on Non-rebreather mask; ca1 16:24 BP 115 / 91; Pulse 71; Resp 19 S; Temp 98(O); Pulse Ox 92% on 4 lpm NC; ca1 13:38 Body Mass Index 74.55 (215.91 kg, 170.18 cm) ca1 MDM: 13:24 Patient medically screened. rn 16:10 Differential diagnosis: Bronchitis Chronic Obstructive Pulmonary Disease Pneumothorax rn pulmonary edema. Data reviewed: vital signs, nurses notes, lab test result(s), EKG, radiologic studies, plain films, and as a result, I will discharge patient. Test interpretation: by ED physician or midlevel provider: ECG, plain radiologic studies, CXR without acute infiltrate, possible interstitial prominence. Counseling: I had a detailed discussion with the patient and/or guardian regarding: the historical points, exam findings, and any diagnostic results supporting the discharge/admit diagnosis, lab results, radiology results, the need for outpatient follow up, to return to the emergency department if symptoms worsen or persist or if there are any questions or concerns that arise at home. Response to treatment: the patient's symptoms have markedly improved after treatment, the patient's condition has returned to base line, and as a result, I will discharge patient. Special discussion: I discussed with the patient/guardian in detail that at this point there is no indication for admission to the hospital. It is understood, however, that if the symptoms persist or worsen the patient needs to return immediately for re-evaluation. 10/07 13:25 Order name: CBC with Diff rn 10/07 13:25 Order name: Basic Metabolic Panel; Complete Time: 16:06 rn 10/07 13:25 Order name: XRAY Chest (1 view); Complete Time: 14:25 rn 10/07 13:25 Order name: Procalcitonin; Complete Time: 16:06 rn 10/07 13:25 Order name: IV Start; Complete Time: 14:03 rn 10/07 13:25 Order name: EKG; Complete Time: 13:28 rn 10/07 13:25 Order name: EKG - Nurse/Tech; Complete Time: 13:43 rn 10/07 14:55 Order name: Misc. Order: recollect BMP please; Complete Time: 15:10 ss Administered Medications: 13:27 Drug: Xopenex (3) 1.25 mg Route: Inhalation; ca1 14:00 Drug: SOLU-Medrol 125 mg Route: IVP; Site: left antecubital; ca1 15:10 Follow up: Response: No adverse reaction ca1 14:47 Drug: NS 0.9% 1000 ml Route: IV; Rate: 1000 ml; Site: left antecubital; ca1 16:30 Follow up: Urine output 290 ml; Response: No adverse reaction; IV Status: Completed ca1 infusion 15:10 Drug: Demerol 25 mg Route: IVP; Site: left antecubital; ca1 16:25 Follow up: Response: No adverse reaction; Pain is decreased ca1 16:32 Drug: Demerol 25 mg Route: IVP; Site: left antecubital; rv 16:39 Follow up: Response: Medication administered at discharge. rv Disposition: 10/07/18 16:11 Discharged to Home. Impression: Chronic obstructive pulmonary disease with (acute) exacerbation. - Condition is Stable. - Discharge Instructions: Chronic Obstructive Pulmonary Disease Exacerbation. - Prescriptions for Prednisone 20 mg Oral Tablet - take 3 tablet by ORAL route once daily for 5 days; 15 tablet. Zithromax Z- Hero 250 mg Oral Tablet - take 1 tablet by ORAL route as directed for 5 days Day 1 - take two (2) tablets one time. Day 2, 3, 4 , 5 take one (1) tablet once daily.; 6 tablet. - Medication Reconciliation Form, Thank You Letter, Antibiotic Education, Prescription Opioid Use form. - Follow up: Private Physician; When: As needed; Reason: Recheck today's complaints, Re-evaluation by your physician. - Problem is an acute exacerbation. - Symptoms have improved. Signatures: Dispatcher [employer] EDMS Ihsan Song MD MD rn Smirch, Shelby, RN RN ss Sukhi Edmondson RN RN rv Acob, HARDIK Valero RN ca1 Corrections: (The following items were deleted from the chart) 16:40 16:11 10/07/2018 16:11 Discharged to Home. Impression: Chronic obstructive pulmonary rv disease with (acute) exacerbation. Condition is Stable. Forms are Medication Reconciliation Form, Thank You Letter, Antibiotic Education, Prescription Opioid Use. Follow up: Private Physician; When: As needed; Reason: Recheck today's complaints, Re-evaluation by your physician. Problem is an acute exacerbation. Symptoms have improved. rn
--- NOTE | 2018-10-07 16:11 | ER ---
Nurse's Notes [facility] Name: Oleg Rosenberg Age: 48 yrs Sex: Female : 1970 Arrival Date: 10/07/2018 Time: 13:24 Bed 25 Private MD: Diagnosis: Chronic obstructive pulmonary disease with (acute) exacerbation Presentation: 10/07 13:20 Presenting complaint: EMS states: pt C/O Difficulty of Breathing. 75% SPO2 at RA. Put ca1 in O2 at 4LPM via NC, SPO2 at 85%. Put on NRB at 15LPM, SPO2 at 95%. Pt had breathing TX at home at 1235 and puffs on inhaler at 1255 prior to EMS arrival. Transition of care: patient was not received from another setting of care. Onset of symptoms was October 07, 2018. Risk Assessment: Do you want to hurt yourself or someone else? Patient reports no desire to harm self or others. Initial Sepsis Screen: Does the patient meet any 2 criteria? No. Patient's initial sepsis screen is negative. Does the patient have a suspected source of infection? Yes: Productive cough/pneumonia. Care prior to arrival: Glucose check: 90. 13:20 Method Of Arrival: EMS: [facility] ca1 13:20 Acuity: AAYUSH 2 ca1 Triage Assessment: 13:38 General: Appears in no apparent distress. uncomfortable, Behavior is calm, cooperative, ca1 appropriate for age. Pain: Complains of pain in low back area Pain radiates to right leg and left leg Pain currently is 10 out of 10 on a pain scale. Pain began Is chronic. EENT:. Respiratory: Reports shortness of breath at rest cough that is productive, since couple days Airway is patent Respiratory effort is even, unlabored, Respiratory pattern is regular, symmetrical, Breath sounds are clear bilaterally. Onset: The symptoms/episode began/occurred yesterday, the patient has moderate shortness of breath. 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 - Hysterectomy ca1 Historical: - Allergies: 13:38 Aspirin; ca1 13:38 Dilaudid; ca1 13:38 Iodinated Contrast Media - IV Dye; ca1 13:38 Iodine; ca1 13:38 Morphine; ca1 13:38 Mucinex; ca1 13:38 NSAIDS; ca1 13:38 PENICILLINS; ca1 13:38 Zofran; ca1 - Home Meds: 13:38 albuterol sulfate 2.5 mg /3 mL (0.083 %) Inhl nebu 3 mL 4 times per day [Active]; ca1 Ambien 10 mg Oral tab qhs prn for Sleep-Onset Insomnia [Active]; diazepam 5 mg Oral tab 1 tab 4 times per day [Active]; Equetro 300 mg Oral CM12 1 cap 2 times per day [Active]; ProAir HFA 90 mcg/actuation inhalation HFAA 1 puff every 4-6 hours [Active]; Xopenex Inhl every 6 hours [Active]; - PMHx: 13:38 Asthma; Bipolar disorder; Bronchitis; COPD; Depression; kidney cancer; ca1 - PSHx: 13:38 lap band insertion and removal; Hysterectomy; kidney L removed; ca1 - Immunization history:: Adult Immunizations up to date, Flu vaccine is up to date. - Social history:: Smoking status: Patient/guardian denies using tobacco, but has a distant history of tobacco abuse. - Family history:: not pertinent. - Ebola Screening: : Patient negative for fever greater than or equal to 101.5 degrees Fahrenheit, and additional compatible Ebola Virus Disease symptoms Patient denies exposure to infectious person Patient denies travel to an Ebola-affected area in the 21 days before illness onset. - Hospitalizations: : No recent hospitalization is reported. Screenin:30 Abuse screen: Denies threats or abuse. Denies injuries from another. Nutritional ca1 screening: No deficits noted. Tuberculosis screening: No symptoms or risk factors identified. Fall Risk None identified. Assessment: 13:30 General: Appears in no apparent distress. uncomfortable, ill, obese, Behavior is calm, ca1 cooperative, appropriate for age. Pain: Complains of pain in back and low back area Pain radiates to left leg and right leg Pain currently is 10 out of 10 on a pain scale. Is chronic. Neuro: Level of Consciousness is awake, alert, obeys commands, Oriented to person, place, time, situation. Cardiovascular: Heart tones S1 S2 present Capillary refill < 3 seconds Patient's skin is warm and dry. Rhythm is sinus rhythm. Respiratory: Reports shortness of breath at rest since yesterday cough that is productive, since couple of days Airway is patent Respiratory effort is even, unlabored, Respiratory pattern is regular, symmetrical, Breath sounds are clear bilaterally. Onset: The symptoms/episode began/occurred yesterday, the patient has moderate shortness of breath. GI: Abdomen is round non-distended, Bowel sounds present X 4 quads. Abd is soft and non tender X 4 quads. : No deficits noted. No signs and/or symptoms were reported regarding the genitourinary system. EENT: No deficits noted. No signs and/or symptoms were reported regarding the EENT system. Derm: Skin is intact, is healthy with good turgor, Skin is pink, warm \T\ dry. Musculoskeletal: Circulation, motion, and sensation intact. Capillary refill < 3 seconds, Range of motion: intact in all extremities. 14:27 Reassessment: Patient appears in no apparent distress at this time. Patient and/or ca1 family updated on plan of care and expected duration. Pain level reassessed. Patient is alert, oriented x 3, equal unlabored respirations, skin warm/dry/pink. 15:38 Reassessment: Patient appears in no apparent distress at this time. Patient is alert, ca1 oriented x 3, equal unlabored respirations, skin warm/dry/pink. 15:48 Reassessment: Pt wheeled to restroom. C/O shortness of breath upon going back to room. ca1 SPO2 at 68% RA. Applied NRB SPO2 at 93%. 16:24 Reassessment: Patient appears in no apparent distress at this time. Patient is alert, ca1 oriented x 3, equal unlabored respirations, skin warm/dry/pink. Vital Signs: 13:38 BP 123 / 99; Pulse 76; Resp 23 S; Temp 98.3(O); Pulse Ox 87% on R/A; Weight 215.91 kg; ca1 Height 5 ft. 7 in. (170.18 cm); Pain 10/10; 14:27 BP 120 / 75; Pulse 68; Resp 21 S; Pulse Ox 97% on 4 lpm NC; ca1 15:30 BP 119 / 68; Pulse 71; Resp 20; Temp 98.1(O); Pulse Ox 85% on 4 lpm NC; ca1 15:48 BP 122 / 93; Pulse 69; Resp 28 S; Pulse Ox 68% on R/A; ca1 15:50 Pulse 85; Resp 20 S; Pulse Ox 94% on Non-rebreather mask; ca1 16:24 BP 115 / 91; Pulse 71; Resp 19 S; Temp 98(O); Pulse Ox 92% on 4 lpm NC; ca1 13:38 Body Mass Index 74.55 (215.91 kg, 170.18 cm) ca1 ED Course: 13:24 Patient arrived in ED. ss 13:24 Ihsan Song MD is Attending Physician. rn 13:28 Marylu Ochoa, HARDIK is Primary Nurse. ca1 13:31 Triage completed. ca1 13:35 Radiology exam delayed due to patient receiving breathing treatment at this time. jb2 13:35 Missed attempt(s): 22 gauge in right antecubital area. By rn documentation specialist. Bleeding controlled, ca1 band aid applied, catheter tip intact. 13:38 Arm band placed on right wrist. ca1 13:40 Patient has correct armband on for positive identification. Placed in gown. Bed in low ca1 position. Call light in reach. Side rails up X 1. 13:40 residential monitor on. Pulse ox on. NIBP on. Warm blanket given. ca1 13:40 No provider procedures requiring assistance completed. ca1 13:45 EKG done, by edger technician. reviewed by Ihsan Song MD. sm3 13:45 Missed attempt(s): 22 gauge in left antecubital area. by rn documentation specialist. Bleeding controlled, ca1 band aid applied, catheter tip intact. 13:55 Inserted saline lock: 20 gauge in left antecubital area, using aseptic technique. Blood ca1 collected. 14:08 X-ray completed. Patient tolerated procedure well. Patient moved back from radiology. jb2 14:14 XRAY Chest (1 view) In Process Unspecified. EDMS 16:40 IV discontinued, intact, bleeding controlled, No redness/swelling at site. Pressure rv dressing applied. Administered Medications: 13:27 Drug: Xopenex (3) 1.25 mg Route: Inhalation; ca1 14:00 Drug: SOLU-Medrol 125 mg Route: IVP; Site: left antecubital; ca1 15:10 Follow up: Response: No adverse reaction ca1 14:47 Drug: NS 0.9% 1000 ml Route: IV; Rate: 1000 ml; Site: left antecubital; ca1 16:30 Follow up: Urine output 290 ml; Response: No adverse reaction; IV Status: Completed ca1 infusion 15:10 Drug: Demerol 25 mg Route: IVP; Site: left antecubital; ca1 16:25 Follow up: Response: No adverse reaction; Pain is decreased ca1 16:32 Drug: Demerol 25 mg Route: IVP; Site: left antecubital; rv 16:39 Follow up: Response: Medication administered at discharge. rv Output: 16:30 Urine: 290ml; Total: 290ml. ca1 Outcome: 16:11 Discharge ordered by MD. rn 16:40 Discharged to home via wheelchair. rv 16:40 Condition: improved 16:40 Discharge instructions given to patient, Instructed on discharge instructions, follow up and referral plans. medication usage, Demonstrated understanding of instructions, follow-up care, medications, Prescriptions given X 2. 16:40 Patient left the ED. rv Signatures: Dispatcher [employer] EDMS Jacob Pastrana jb2 Ihsan Song MD MD rn Smirch, Shelby, RN RN Yuliet Ndiaye 3 Sukhi Edmondson RN RN rv Acob, Marylu RN RN ca1 Corrections: (The following items were deleted from the chart) 14:49 14:48 Missed attempt(s): 22 gauge in left antecubital area. by rn documentation specialist. Bleeding ca1 controlled, band aid applied, catheter tip intact. ca1
[2018-10-07 17:01] VITALS: BP 115/91; TEMP 98; O2SAT 92
[2018-10-07 18:44] LABS: Blood Morphology Comment NOT SEEN (NOT SEEN); Platelet Estimate ADEQ; Urine White Blood Cell Casts OK
--- NOTE | 2018-10-08 09:04 | EKG ---
Test Date: 2018-10-07 Test Time: 13:40:00 Networks Software Consultant: HERMINIO MEASUREMENT RESULTS: Intervals: Rate: 68 CT: 142 QRSD: 80 QT: 372 QTc: 395 [place]: P: 47 CT: 142 QRS: 52 T: 35 INTERPRETIVE STATEMENTS: Normal sinus rhythm Normal ECG Compared to ECG 05/22/2018 19:59:53 T-wave abnormality no longer present Electronically Signed On 10-08-18 09:01:00 CDT by Mahendra Howard
== END 2018-10-07 16:40 | disposition home or self-care (01) ==
LOC: ER 13:20
DX: J44.1 Chronic obstructive pulmonary disease with (acute) exacerbation (principal); J45.909 Unspecified asthma, uncomplicated; F31.9 Bipolar disorder, unspecified; Z88.5 Allergy status to narcotic agent; Z88.0 Allergy status to penicillin; Z88.8 Allergy status to other drugs, medicaments and biological substances; Z88.6 Allergy status to analgesic agent; Z91.041 Radiographic dye allergy status
CPT/HCPCS: 36415; 71045; 80048; 84145; 85025; 93005; 96361; 96374; 96375; 99285; J2175; J2930; J7030

== ENCOUNTER 2018-10-12 12:49 | Inpatient (IN) | payer OTHER ==
--- OUTSIDE RECORDS SUMMARY | 2018-10-12 12:51 | XMS REPORT ---
:1970 Author Organization [facility] Address [address] [place] [address] Dr. Bernardo [address] [place] [id number] Care Team Providers Name Role Phone Unavailable Unavailable Unavailable Problems This patient has no known problems. Allergies, Adverse Reactions, Alerts This patient has no known allergies or adverse reactions. Medications This patient has no known medications.
[2018-10-12] MEDS ORDERED: FENTANYL CITR 100 MCG/2 ML ONE ×4 (13:35→20:24)
[2018-10-12 13:59] LABS: BUN Blood Urea Nitrogen 15 mg/dL (7-18); Bicarbonate 40 mmol/L (21-32); Glucose Level 102 mg/dL (74-106); Sodium Level 138 mmol/L (136-145)
--- NOTE | 2018-10-12 14:47 | RAD REPORT ---
EXAM DESCRIPTION: CT - Head C Spine Mpr Wo Con - 10/12/2018 2:10 pm CLINICAL HISTORY: Head and neck injury status post fall. Head and neck pain COMPARISON: 2014 TECHNIQUE: Computed axial tomography of the head and cervical spine was obtained. Sagittal and coronal reconstruction was performed. All CT scans are performed using dose optimization technique as appropriate and may include automated exposure control or mA/KV adjustment according to patient size. FINDINGS: An intracranial bleed is not seen. The ventricles are normal in caliber. An extra-axial fl uid collection is not noted.Fluid within the visualized sinuses and mastoids is not seen Images are degraded by patient motion artifact A cervical fracture is not visualized. No dislocation is noted. IMPRESSION: No acute intracranial abnormality is seen. Suboptimal evaluation of cervical spine secondary to patient motion artifact No gross cervical fracture seen. If the patient continues to have symptoms to suggest intracranial /spinal cord pathology then MRI wou ld be recommended
--- NOTE | 2018-10-12 14:52 | RAD REPORT ---
EXAM DESCRIPTION: RAD - Knee Right 3 View - 10/12/2018 2:38 pm CLINICAL HISTORY: Right knee pain status post injury FINDINGS: No fracture or dislocation is seen. Edema within the subcutaneous tissues
--- NOTE | 2018-10-12 14:55 | RAD REPORT ---
EXAM DESCRIPTION: JONATHANTib Mary Jo Left10/12/2018 2:38 pm CLINICAL HISTORY: Left leg pain status post injury FINDINGS: Avulsion fracture medial malleolus Oblique moderately displaced lateral malleolar fracture No gross abnormality involving the medial and lateral tibial plateau although evaluation is somewhat limited. If the patient has pain in this region dedicated x-rays of the left knee would be recommende d
--- NOTE | 2018-10-12 16:12 | ER ---
Nurse's Notes [facility] Name: Oleg Rosenberg Age: 48 yrs Sex: Female : 1970 Arrival Date: 10/12/2018 Time: 12:51 Bed 3 Private MD: Diagnosis: Displaced comminuted lateral malleolar fracture;Avulsion fracture left ankle Presentation: 10/12 12:51 Presenting complaint: EMS states: LEFT ANKLE DEFORMITY 2/2 STANDING. Transition of bp care: patient was not received from another setting of care. Onset of symptoms is unknown. Risk Assessment: Do you want to hurt yourself or someone else? Patient reports no desire to harm self or others. Initial Sepsis Screen: Does the patient meet any 2 criteria? No. Patient's initial sepsis screen is negative. Does the patient have a suspected source of infection? No. Patient's initial sepsis screen is negative. Care prior to arrival: Splint applied. 12:51 Method Of Arrival: EMS: [facility] bp 12:51 Acuity: AAYUSH 3 bp Triage Assessment: 12:51 General: Appears in no apparent distress. uncomfortable, obese, Behavior is bp cooperative, appropriate for age, agitated, anxious. Pain: Complains of pain in anterior aspect of left ankle. EENT: No deficits noted. Neuro: Level of Consciousness is awake, alert, obeys commands, Oriented to person, place, time, situation, Appropriate for age. Cardiovascular: No deficits noted. Respiratory: Airway is patent Respiratory effort is even, unlabored, Respiratory pattern is regular, symmetrical. GI: No signs and/or symptoms were reported involving the gastrointestinal system. : No signs and/or symptoms were reported regarding the genitourinary system. Derm: No deficits noted. Musculoskeletal: Circulation, motion, and sensation intact. Range of motion: limited in left knee, left ankle and right knee. NURSE SANE: 12:59 LMP N/A - Irregular menses bp Historical: - Allergies: 12:56 Aspirin; bp 12:56 Dilaudid; bp 12:56 Iodinated Contrast Media - IV Dye; bp 12:56 Iodine; bp 12:56 Morphine; bp 12:56 Mucinex; bp 12:56 NSAIDS; bp 12:56 PENICILLINS; bp 12:56 Zofran; bp - Home Meds: 12:56 Xopenex Inhl every 6 hours [Active]; Risperdal 1 mg Oral tab 1 tab three times a day bp [Active]; ProAir HFA 90 mcg/actuation inhalation HFAA 1 puff every 4-6 hours [Active]; omeprazole 40 mg Oral cpDR 1 cap once daily [Active]; Equetro 300 mg Oral CM12 1 cap 2 times per day [Active]; diazepam 5 mg Oral tab 1 tab 4 times per day [Active]; Cogentin Oral 1 mg three times a day [Active]; Ambien 10 mg Oral tab qhs prn for Sleep-Onset Insomnia [Active]; albuterol sulfate 2.5 mg /3 mL (0.083 %) Inhl nebu 3 mL 4 times per day [Active]; - PMHx: 12:56 Asthma; Bipolar disorder; Bronchitis; COPD; Depression; kidney cancer; bp - Immunization history:: Adult Immunizations unknown. - Social history:: Smoking status: unknown. - Ebola Screening: : No symptoms or risks identified at this time. Screenin:06 Abuse screen: Denies threats or abuse. Denies injuries from another. Nutritional bp screening: No deficits noted. Tuberculosis screening: No symptoms or risk factors identified. Fall Risk Fall in past 12 months (25 points). No secondary diagnosis (0 pts). No IV (0 pts). Ambulatory Aid- None/Bed Rest/Nurse Assist (0 pts). Gait- Weak (10 pts.). Mental Status- Oriented to own ability (0 pts). Total Mark Fall Scale indicates Low Risk Score (25-44 pts). Fall prevention measures have been instituted. Side Rails Up X 2 Placed close to Nursing Station As available Patient and Family Educated on Fall Prevention Program and strategies. Assessment: 12:51 General: SEE TRIAGE NOTE. bp 15:00 Reassessment: PIV ACCESS OBTAINED AFTER MX ATTEMPTS BY MX STAFF. RESULTS PENDING. bp 16:30 Reassessment: LEFT SHORT LEG SPLINT PLACED, ADMIT IN PROCESS. bp 17:13 Reassessment: LAB CALLED FOR RECOLLECT. PT REMOVED OXYGEN AND MONITORING AND REFUSING bp AT THIS TIME. 18:29 Reassessment: PT PLACED BACK ON MONITOR AND 4LNC. ADMIT IN PROCESS. bp 18:45 Reassessment: ADMIT ON HOLD FOR DELIVERY OF BARIATRIC BED. bp 19:14 Reassessment: REPORT TO VALER[facility] DYE FOR 204, BARIATRIC BED ARRIVAL PENDING. tl2 19:29 Reassessment: Pt stable for transport to floor. tl2 19:32 Reassessment: Charge nurse from 2nd floor stated pt cannot come upstairs until tl2 bariatric bed arrives. Pt will remain in ER until further notice. Vital Signs: 12:59 BP 164 / 116; Pulse 62; Resp 20; Temp 98.2; Pulse Ox 90% on R/A; Weight 215 kg; bp 15:30 BP 147 / 106; Pulse 87; Resp 24; Pulse Ox 90% on R/A; bp 16:32 BP 124 / 66; Pulse 58; Resp 20; Pulse Ox 93% ; bp 18:29 BP 103 / 72; Pulse 78; Resp 20; Pulse Ox 90% on 4 lpm NC; bp ED Course: 12:51 Patient arrived in ED. bp 12:53 Triage completed. bp 12:58 Kory Belle, HARDIK is Primary Nurse. bp 13:05 Arm band placed on. bp 13:06 Dario Lynn MD is Attending Physician. ps1 13:06 Patient has correct armband on for positive identification. Bed in low position. Call bp light in reach. Side rails up X2. 13:30 Initial lab(s) drawn, by me, sent to lab. aa5 13:30 Missed attempt(s): 20 gauge in right antecubital area. Bleeding controlled, band aid aa5 applied, catheter tip intact. 14:12 CT Head C Spine In Process Unspecified. EDMS 14:40 Tib Fib Left XRAY In Process Unspecified. EDMS 14:40 Knee Right 3 View XRAY In Process Unspecified. EDMS 14:49 Guy cath inserted, using sterile technique, 16 Fr., by me, balloon inflated, to bp gravity drainage, urine specimen collected. 15:15 Inserted saline lock: 24 gauge in right hand, using aseptic technique. bp 16:09 Lit Florez MD is Hospitalizing Provider. ps1 16:30 Orthoglass splint: Posterior short lleg splint applied on left leg. bp 17:57 EKG done, by data entry technician. reviewed by Dario Lynn MD. sm3 18:09 ordered bariatric bed from [facility], confirmation number [id number]. bd 19:17 No provider procedures requiring assistance completed. Patient admitted, IV remains in tl2 place. 19:31 Primary Nurse role handed off by Kory Belle, RN tl2 Administered Medications: 15:15 Drug: fentaNYL (PF) 100 mcg Route: IVP; Site: right hand; bp 16:00 Follow up: Response: Pain is decreased bp 16:29 Drug: fentaNYL (PF) 100 mcg Route: IVP; Site: right hand; bp 18:30 Follow up: Response: Pain is decreased bp 18:31 Drug: fentaNYL (PF) 100 mcg Route: IVP; Site: right hand; bp 18:45 Follow up: Response: Pain is decreased bp Outcome: 16:11 Decision to Hospitalize by Provider. ps1 19:15 Admitted to Med/surg accompanied by tech, via stretcher, room 204, with chart, Report tl2 called to VALERIE DYE 19:15 Condition: stable 19:15 Instructed on the need for admit. 19:29 Patient left the ED. tl2 21:22 Patient left the ED. tl2 Signatures: Dispatcher [employer] EDMS Brit Huynh Audri RN RN aa5 Vidya Landaverde RN RN tl2 Kory Belle, RN RN bp Dario Lynn MD MD ps1 Yuliet Wells 3
[2018-10-12 17:28] LABS: Absolute Lymphocytes (CBC) 0.8 K/uL (0.7-4.9); Basophils % 0.5 % (0-1.3); Eosinophils % 0.1 % (0-4.4); Hematocrit 39.2 % (36.0-45.0); Lymphocytes % 9.2 % (15.3-44.8); MPV 8.6 fL (7.6-11.3); Monocytes % 3.9 % (3.3-12.3); RBC Red Blood Cell Count 3.96 M/uL (3.86-4.86)
[2018-10-12 19:09] LABS: Platelet Estimate ADEQ; Urine White Blood Cell Casts OK
[2018-10-12 19:10] LABS: Blood Morphology Comment NOTED (NOT SEEN); Stomatocytes 2+
[2018-10-12] MEDS ORDERED: ACETAMINOPHEN 500 MG TAB PO PRN (19:43)
[2018-10-12] MEDS ORDERED: ONDANSETRON 4 MG/2 ML VIAL IV PRN (19:43)
[2018-10-12] MEDS: FENTANYL CITR 100 MCG/2 ML IV SCH ×2 (19:43→23:39)
--- NOTE | 2018-10-12 21:15 | EKG ---
Test Date: 2018-10-12 Test Time: 17:39:46 Fence Installer Helper: HERMINIO MEASUREMENT RESULTS: Intervals: Rate: 64 MN: 136 QRSD: 80 QT: 408 QTc: 420 [place]: P: 37 MN: 136 QRS: 71 T: 45 INTERPRETIVE STATEMENTS: Sinus rhythm with marked sinus arrhythmia T wave abnormality, consider anterior ischemia Abnormal ECG Compared to ECG 10/07/2018 13:40:00 T-wave abnormality now present Possible ischemia now present Electronically Signed On 10-12-18 21:14:50 CDT by Dwayne Thomas
[2018-10-12] MEDS: ZOLPIDEM TARTRATE 10 MG TABLET PO PRN (23:37)
[2018-10-12] MEDS: RISPERIDONE 1 MG TABLET PO SCH (23:38)
[2018-10-12] MEDS: PROMETHAZINE 25 MG/ML VIAL IV PRN (23:47)
[2018-10-13] MEDS: DIAZEPAM 5 MG TABLET PO PRN ×2 (01:26→21:47)
[2018-10-13 01:32] VITALS: BMI 74.2
[2018-10-13] MEDS: FENTANYL CITR 100 MCG/2 ML IV SCH ×3 (03:21→11:43)
--- NOTE | 2018-10-13 05:04 | HP ---
Date of Admission: 10/12/2018 Consultants: 1. Dr. Garcia with Orthopedics. 2. Dr. Thomas with Cardiology. Chief Complaint: Ankle pain on the left. History Of Present Illness: The patient is a 48-year-old female with history of asthma, COPD, morbid obesity, bipolar disorder, obstructive sleep apnea, history of kidney cancer status post left nephrectomy, who was in her usual state of health until the day of admission when the patient had a mechanical fall reaching for her nasal cannula on the floor, tripped over a shoe, twisted her ankle and fell. The patient reported immediate pain, swelling, inability to put weight on the foot. Her symptoms were constant, moderate, progressively worsening. The patient's pain was worsened with pressure on the foot, alleviated with rest. The patient came into the ER for further evaluation. Her workup in the ER revealed an avulsion fracture seen on the x-ray. The patient was placed in soft cast and given pain medications. The patient was then referred for admission. When seen in the ER, she was awake, alert, oriented x3, in some mild distress due to pain. Past Medical History: COPD, she is on 4 L via nasal cannula, bipolar disorder, kidney cancer status post left nephrectomy, morbid obesity, history of lap band with subsequent reversal, GERD, former smoker. Past Surgical History: Hysterectomy, right lower leg I and D, lap band and status post reversal, , I and D to the abdomen superficially, left shoulder surgery. Allergies: TO ASPIRIN, MUCINEX, HYDROMORPHONE, MORPHINE, NSAIDS, PENICILLIN, CODEINE, CONTRAST DYE AND DEMEROL. Medications: List reviewed. Social History: The patient smokes 1 pack per day, quit recently. Denies any alcohol use or illicit drug use. Family History: Father has heart disease, hypertension, cancer, liver disease. Mother has lung disease, COPD, of morbid obesity. Review of Systems: Ten-point system reviewed, negative except as per HPI. Physical Examination: Vital Signs: Blood pressure 164/116, pulse 62, respirations 20, temperature 98.2, O2 90% on room air. Weight is 215 kg. General: Awake, alert, oriented x3. Some mild distress. Appears older than stated age. Morbidly obese female. HEENT: Normocephalic, atraumatic. PERRLA. EOMI. Moist mucous membranes. Oropharynx is clear. Poor dentition. Conjunctivae anicteric. Neck: Supple. Trachea midline. CV: S1, S2. Regular rate and rhythm. Peripheral pulses weak but present. Respiratory: Diminished, but overall clear to auscultation. No wheezing heard. Gastrointestinal: Abdomen is obese, soft, nontender, nondistended. Positive bowel sounds. No guarding or rigidity. Extremities: No clubbing or cyanosis. The patient has edema of the left lower extremity including the ankle and the knee with tenderness to palpation. No calf tenderness. Neuro: Cranial nerves 2-12 intact grossly. No focal neurological deficit. Speech is normal. Musculoskeletal: Decreased range of motion, left ankle and knee. Sensation is intact to light touch. Laboratory Data: Sodium 138, potassium 5, chloride 94, CO2 40, BUN 15, creatinine 0.68, glucose 102, calcium 8.4. WBC 8.8, H and H 12.5 and 39.2, platelets 169, neutrophils 86%. Imaging Studies: CT head and cervical spine shows no acute intracranial abnormality. Suboptimal evaluation of cervical spine secondary to motion artifact. No gross cervical fracture seen. Right knee x-ray shows no fracture , dislocation, edema within the subcutaneous tissue. Tib-fib on the left shows avulsion fracture of the medial malleolus, oblique moderately displaced lateral malleolar fracture. No gross abnormality involving the medial and lateral tibial plateau although evaluation is somewhat limited. Assessment And Plan: A 48-year-old female with: 1. Status post mechanical fall. 2. Left ankle fracture. Spoke with Dr. Garcia. The patient will need surgical intervention. The patient will need cardiac clearance. Dr. Thomas has been consulted. Did speak with Dr. Arguello. An echocardiogram done less than 6 months ago was normal. We will continue with pain control, offloading and bedrest for now, n.p.o. after midnight. 3. Chronic obstructive pulmonary disease with chronic respiratory failure. The patient's chart does say asthma, however, the patient reports chronic obstructive pulmonary disease. We will continue with nasal cannula, albuterol nebulizer p.r.n. 4. Morbid obesity. The patient is 473 pounds. 5. Bipolar disorder. 6. History of kidney cancer status post left-sided nephrectomy. 7. Nicotine dependance. Counseled. Plan: Admit the patient to Med-Surg, place as inpatient. We will follow up with Cardiology recommendations for cardiac clearance. The patient is not on any blood thinners. Anticipate procedure in a.m. Length of stay greater than 2 midnights. MARY JANE Voice ID: [id number] MTDD
[2018-10-13 06:07] LABS: ALT/SGPT 23 U/L (12-78); AST/SGOT 12 U/L (15-37); Albumin 2.8 g/dL (3.4-5.0); Alkaline Phosphatase 74 U/L (45-117); BUN Blood Urea Nitrogen 13 mg/dL (7-18); Bilirubin Total 0.3 mg/dL (0.2-1.0); Glucose Level 96 mg/dL (74-106); Potassium 3.9 mmol/L (3.5-5.1); Protein, Total 5.9 g/dL (6.4-8.2); Sodium Level 141 mmol/L (136-145)
[2018-10-13 06:10] LABS: Absolute Lymphocytes (CBC) 1.3 K/uL (0.7-4.9); Basophils % 0.3 % (0-1.3); Eosinophils % 0.7 % (0-4.4); Hematocrit 35.3 % (36.0-45.0); Lymphocytes % 17.3 % (15.3-44.8); MPV 9.2 fL (7.6-11.3); Monocytes % 9.5 % (3.3-12.3); RBC Red Blood Cell Count 3.58 M/uL (3.86-4.86)
[2018-10-13 06:15] LABS: Bicarbonate 42 mmol/L (21-32)
[2018-10-13] MEDS ORDERED: CEFAZOLIN/SWI 1gm 1 GM/10 ML SYR IV SCH (06:15)
[2018-10-13] MEDS: ALBUTEROL 2.5 MG/3 ML NEB SOL NEB PRN ×3 (07:45→19:55)
[2018-10-13] MEDS: IPRATROPIUM BROM 0.5MG/2.5ML NEB PRN ×3 (07:45→19:55)
[2018-10-13] MEDS: PROMETHAZINE 25 MG/ML VIAL IV PRN ×2 (08:00→16:22)
[2018-10-13] MEDS: RISPERIDONE 1 MG TABLET PO SCH ×3 (08:01→20:13)
[2018-10-13] MEDS ORDERED: CARBAMAZEPINE 300 MG PO SCH (09:00)
[2018-10-13] MEDS ORDERED: FENTANYL CITR 100 MCG/2 ML IV ONE (09:13)
[2018-10-13] MEDS ORDERED: CEFAZOLIN/SWI 1gm 1 GM/10 ML SYR ONE (11:08)
[2018-10-13] MEDS: Ringers Lactate 1,000 ML IV ONE ×2 (11:20→11:30)
--- NOTE | 2018-10-13 11:33 | ECHO ---
HEIGHT: 5 ft 7 in WEIGHT: 474 lb 0 oz DATE OF STUDY: 10/13/[address]: Mykel Fields MD 2-DIMENSIONAL: YES M.MODE: YES DOPPLER: YES COLOR FLOW: YES TDS: YES PORTABLE: YES DEFINITY: BUBBLE STUDY: DIAGNOSIS: EVALUATE FOR SURGERY CARDIAC HISTORY: CATHERIZATION: NO SURGERY: NO PROSTHETIC VALVE: NO PACEMAKER: NO MEASUREMENTS (cm) DIASTOLIC (NORMALS) SYSTOLIC (NORMALS) IVSd 1.1 (0.6-1.2) LA Diam 3.8 (1.9-4.0) LVEF 67% LVIDd 5.6 (3.5-5.7) LVIDs 3.5 (2.0-3.5) %FS 38% LVPWd 1.1 (0.6-1.2) Ao Diam 3.2 (2.0-3.7) 2 DIMENSIONAL ASSESSMENT: RIGHT ATRIUM: NORMAL LEFT ATRIUM: NORMAL RIGHT VENTRICLE: NORMAL LEFT VENTRICLE: NORMAL TRICUSPID VALVE: NORMAL MITRAL VALVE: NORMAL PULMONIC VALVE: NORMAL AORTIC VALVE: NORMAL PERICARDIAL EFFUSION: NONE AORTIC ROOT: NORMAL LEFT VENTRICULAR WALL MOTION: NORMAL DOPPLER/COLOR FLOW: MILD TRICUSPID REGURGITATION COMMENTS: NORMAL TWO DIMENSIONAL ECHOCARDIOGRAM. MILD TRICUSPID REGURGITATION. NORMAL RIGHT VENTRICULAR SYSTOLIC PRESSURE. NO WALL MOTION ABNORMALITY. NO EFFUSION. TECHNOLOGIST: JACQUI WARE/ LINO HENSON
[2018-10-13] MEDS ORDERED: BUPIVACA 0.25%/EPI 0.0005% MDV 50 ML VIAL ONE (11:37)
[2018-10-13] MEDS ORDERED: PROPOFOL 200 MG/20 ML VIAL IV ONE (11:52)
[2018-10-13] MEDS ORDERED: FENTANYL CITR 100 MCG/2 ML ONE (11:52)
[2018-10-13] MEDS ORDERED: ROCURONIUM 50 MG/5 ML VIAL IV ONE (11:53)
[2018-10-13] MEDS ORDERED: LIDOCAINE 2% MPF 5 ML VIAL ONE (11:53)
[2018-10-13] MEDS ORDERED: MIDAZOLAM HCL 2 MG/2 ML INJ ONE (11:54)
[2018-10-13] MEDS ORDERED: ONDANSETRON 4 MG/2 ML VIAL ONE (11:54)
[2018-10-13] MEDS ORDERED: SUCCINYLCHOLINE 20 MG/ML (10 ML) IV ONE (11:58)
[2018-10-13] MEDS ORDERED: NEOSTIGMINE 1 MG/ML -10 ML VIAL ONE (12:37)
[2018-10-13] MEDS ORDERED: GLYCOPYRROLATE 0.2 MG/ML SYR ONE (12:37)
--- NOTE | 2018-10-13 12:58 | P.BOP ---
Preoperative diagnosis: BIMALLEOLAR FRACTURE LEFT ANKLE Postoperative diagnosis: BIMALLEOLAR FRACTURE LEFT ANKLE WITH FRACTURE BLISTER OVER MEDIAL MALLEOLUS Primary procedure: TO SURGERY UNDER GENERAL ANESTHESIA SPLINT REMOVED TO ENCOUNTER FX BLISTER Secondary procedure: APPLIED NEW POSTERIOR COAPTATION SPLINT Backup Operator: Landy Stewart Estimated blood loss: NONE Specimen: NONE Findings: 1.5 CM FRACTURE BLISTER PRESENT OVER MED. MALL. FX Anesthesia: General Complications: None Transferred to: Recovery Room Condition: Good
[2018-10-13] MEDS ORDERED: MEPERIDINE HCL 25 MG/0.5 ML ONE ×3 (12:59→13:27)
--- NOTE | 2018-10-13 13:31 | RAD REPORT ---
EXAM DESCRIPTION: RAD - Ankle Left 3 View - 10/13/2018 1:22 pm CLINICAL HISTORY: Ankle fracture COMPARISON: October 12 FINDINGS: Oblique fracture through the distal fibula again noted. Transverse fracture of the medial malleolus again identified. Cast material is in place. There is near anatomic alignment and position of the fracture fragments. No measurable callus formation or bony repair identifiable. IMPRESSION: Left ankle fracture reduced to near anatomic alignment and position.
[2018-10-13] MEDS: CARBAMAZEPINE 200 MG PO SCH ×2 (14:50→20:12)
[2018-10-13] MEDS: BENZTROPINE 1 MG TAB PO SCH ×2 (14:50→20:13)
--- NOTE | 2018-10-13 16:10 | PN ---
Date of Progress Note: 10/13/2018 Subjective: The patient is seen and examined. Chart reviewed and case discussed with RN and Dr. Rendon. The patient has been on significant amount of fentanyl 50 q.4; however, still complaining of p ain. Medications: List reviewed. Objective: Vital Signs: Temperature 97.3, heart rate 65, blood pressure 129/60, respirations 16, O2 93% on 4 L via nasal cannula. General: Awake, alert, oriented x3. Some mild distress due to pain. Morbidly obese female. BMI 74 . CV: S1, S2. Regular rate and rhythm. Peripheral pulses present. Respiratory: Moving air well bilaterally. No wheezing. Gastrointestinal: Abdomen is soft, nontender, nondistended. Positive bowel sounds. Extremities: No clubbing, cyanosis. The patient has left lower extremity edema. Musculoskeletal: Decreased range of motion, left ankle, tenderness to palpation. Neurologic: Nonfocal. Sensation intact to light touch. Laboratory Data: Sodium 141, potassium 3.9, chloride 99, CO2 of 42, BUN 13, creatinine 0.58, glucose 96, calcium 8.4. WBC 7.4, H and H 11.6 and 35.3, platelets 164, neutrophils 72%. Assessment And Plan: A 48-year-old female with: 1.Status post mechanical fall. 2.Left avulsion fraction of the medial malleolus and moderately displaced lateral malleolar fracture , initial encounter, closed. The patient scheduled for surgery today by Dr. Garcia. Echocardiogram has been obtained. 3.Chronic obstructive pulmonary disease with chronic respiratory failure. The patient is on 4 L of oxygen at home. We will continue breathing treatments. 4.Morbid obesity, body mass index 74. 5.Bipolar disorder. 6.History of renal cancer, status post left nephrectomy. Plan: Anticipate surgery today. The patient has been seen by Cardiology. We will review echo. Ech o from [address] Arguello's office was within normal limits. I spoke with Dr. Arguello. SA/MODL Voice ID: [id number] Report ID: [id number]
[2018-10-13] MEDS: FENTANYL CITR 100 MCG/2 ML IV PRN ×2 (16:15→20:13)
--- NOTE | 2018-10-13 17:16 | CON ---
Date of Consultation: 10/13/[address] to Dr. Florez's service on 10/12/2018. I saw her on 10/13/2018. Reason For Consultation: Cardiac clearance. History Of Present Illness: The patient is a 48-year-old woman with no previous cardiac history. Brandy arreguin has a history of asthma, bipolar disorder, and depression. She is morbidly obese; has had a lap ba nd surgery in the past and has failed. Came in with ankle fracture. There is a plan for Dr. Garcia to operate on her. She had an EKG showing nonspecific changes, possible anterior ischemia, in the an terior wall; however, she has no cardiac symptoms. Denies any chest pain, shortness of breath, PND, orthopnea, pedal edema, palpitations, or syncope. She has normal troponin and BNP. She has a normal chest x-ray. Echocardiogram which was done today was also perfectly normal without any wall motion abnormalities. Allergies: SHE IS ALLERGIC TO IODINE, DILAUDID, MORPHINE, AND ASPIRIN. Review of Systems: Negative. Social History: Negative. Family History: Noncontributory. Medications: As listed by Dr. Florez. Physical Examination: General: The patient is morbidly obese. Vital Signs: Stable. Afebrile. Weight was more than 400 pounds. HEENT: Negative. Neck: Supple. No bruit. Chest: Clear. Cardiac Exam: Normal. Abdomen: Obese, but benign. Extremities: Revealed no clubbing, cyanosis. She had chronic venous insufficiency changes. Impression And Plan: This is a patient with history of asthma, bipolar disorder, and depression. He r main problem is morbid obesity. EKG is abnormal, but no cardiac symptoms. Echo is normal. The geno gordon's weight precludes her having a stress test or catheterization. I think she is at low risk for perioperative mortality. EMERY/YANE Voice ID: [id number] Report ID: [id number]
--- NOTE | 2018-10-13 22:59 | CON ---
Date of Consultation: 10/12/2018 Requested By: Lit Florez. Reason For Consultation: Consultation is in regard to left ankle fracture. History Of Present Illness: This 48-year-old female has a history of asthma, COPD, morbid obesity, b ipolar disorder, obstructive sleep apnea, kidney cancer, status post left nephrectomy, who was willard t to the emergency room after tripping over a shoe, twisting her left ankle with fall. The patient h ad pain and swelling immediately in attempted weightbearing with severe painful symptoms. X-ray has revealed a bimalleolar ankle fracture. The patient was admitted and after being placed in a posterio r coaptation splint. She has pillow elevation. She indicates her admission was delayed for delivery of a special bed, which has air mattress and larger size than usual bed. Past Medical History: COPD. The patient as mentioned has bipolar disorder, kidney cancer with left nephrectomy, morbid obesity with a history of lap band takedown subsequently, GERD, former smoker, re cently quit. Past Surgical History: Hysterectomy, I and D for infection in the right lower leg and to the abdomen . The patient mentions MRSA as an infecting agent 2 or 3 years ago. The patient has also had C-sect ion and left shoulder surgery. Allergies: LISTED ASPIRIN, MUCINEX, HYDROMORPHONE, MORPHINE, NSAID, PENICILLIN, CODEINE, CONTRAST DY E, AND DEMEROL. THE PATIENT DENIES THE ALLERGIES TO CODEINE AND DEMEROL INDICATING THEY DO NOT CAUSE PROBLEMS. Medications: List reviewed. Physical Examination: Extremities: On examination, the patient has a well done posterior splint with sugar-tong applicatio n over the posterior splint. This is partially unwrapped. It is not causing compression or too much tightness. The patient has intact sensation to the toes and can dorsiflex toes visibly while in the splint. HEENT: Within normal limits. Neck: Supple. Chest: Clear to auscultation. Heart: Has a regular rate and rhythm. Abdomen: Protuberant, soft, and nontender. Genital: Deferred. Rectal: Deferred. Laboratory Data: Indicates WBC count is 8.8 and hemoglobin is 12.5 with platelets 169, and neutrophi ls 86%. X-rays show displaced avulsion fracture of the medial malleolus and an oblique fracture of t he lateral malleolus just at the tibiofibular ligament level. Assessment: Bimalleolar fracture, left ankle in a morbidly obese patient with significant medical co ncerns regarding COPD, history of renal failure and a renal cancer and left nephrectomy, bipolar diso rder. Recommendation: For medical clearance and n.p.o. after midnight for planned ORIF of the left ankle p lanned for 1 p.m. on 10/13/2018. Risks and benefits have been discussed at length with all questions answered. The patient has elected to proceed. SAYRA/YANE Voice ID: [id number] Report ID: [id number]
[2018-10-14] MEDS: FENTANYL CITR 100 MCG/2 ML IV PRN ×6 (00:50→21:27)
[2018-10-14] MEDS: PROMETHAZINE 25 MG/ML VIAL IV PRN ×3 (01:12→17:38)
[2018-10-14] MEDS: ALBUTEROL 2.5 MG/3 ML NEB SOL NEB PRN ×3 (01:25→13:05)
[2018-10-14] MEDS: IPRATROPIUM BROM 0.5MG/2.5ML NEB PRN ×4 (01:25→20:33)
[2018-10-14] MEDS: PANTOPRAZOLE 40MG TABLET PO SCH (06:18)
[2018-10-14] MEDS ORDERED: CODEINE 30MG/APAP 300MG TAB PO PRN (09:21)
[2018-10-14] MEDS: RISPERIDONE 1 MG TABLET PO SCH ×3 (10:05→21:26)
[2018-10-14] MEDS: BENZTROPINE 1 MG TAB PO SCH ×3 (10:06→21:26)
[2018-10-14] MEDS: CARBAMAZEPINE 200 MG PO SCH ×3 (10:06→21:25)
[2018-10-14] MEDS: ENOXAPARIN 40 MG/0.4 ML SQ SCH (10:10)
[2018-10-14] MEDS: HYDROCODONE/APAP 7.5/325 MG TAB PO PRN ×2 (12:30→22:52)
--- NOTE | 2018-10-14 14:53 | P.PN ---
Date of Service: 10/14/18 S: Patient seen this am. Complaining of ankle pain, almost all 10's with six 75 mcg Fentanyl prn IV doses given at near exact 4 hour intervals. Only one PO Lorida tab given at midnight. 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 Discussed fact that most bimalleolar fractures are referred as outpatients for ortho f/u evaluations with p.o. prescriptions of Tylenol no.3. O: Afebrile, maintaining O2 sats of 90 to 96 on n.c. 2 to 5L patient able to demonstrate left leg lift 2' to 3'. Cesar wraps around splint loosened and re- wrapped without stretch. Toes with good sensation, brisk capillary refill, and normal dorsiflexion/plantar flexion. Reviewed post-op films to show good alignment of medial and lateral malleolar fragments. A: Patient having pain out of proportion to injury and usual experience with bimalleolar fracture. Two days ago she was trying to walk on the broken ankle. P: PT to mobilize patient as tolerated with NWB LLE. She needs training and practice as it will be important to protect plate and screws from wt-bearing for a month after fracture. Always emphasize to patients that screw threads in spongy bone can be pulled asunder to ruin surgical fixation. Pt needs to get off IV meds to have something to help with post op pain in 2 weeks when skin blister issue resolves. By the clock Fentanyl likely reducing respiratory drive to increase PO2. Still no PT notes at 3:15.
--- NOTE | 2018-10-14 17:37 | PN ---
Date of Progress Note: 10/14/2018 Subjective: The patient seen and examined. Chart reviewed and case discussed with RN. The patient was unable to have surgery yesterday due to blister around the proposed incision site and risk of inf ection. The patient still complaining of pain. Medications: List reviewed. Physical Examination: Vital Signs: Temperature 97.6, heart rate 73, blood pressure 127/59, respirations 18, O2 92% on 4 L via nasal cannula. General: Awake, alert, and oriented x3. Morbidly obese female, appears older than stated age, in so me mild distress. CV: S1 and S2. Regular rate and rhythm. Peripheral pulses present. Respiratory: Moving air well bilaterally. No wheezing. Gastrointestinal: Abdomen is soft, nontender, nondistended. Positive bowel sounds. Extremities: No clubbing or cyanosis. There is some edema on the left ankle. Neurologic: Nonfocal. Sensation intact to light touch. Laboratory Data: Pending. Assessment And Plan: A 48-year-old female with: 1.Status post mechanical fall. 2.Left avulsion fracture of the medial malleolus and moderately displaced lateral malleolar fracture , initial encounter closed. The patient unable to have surgery due to blister on the ankle, which wo uld cause infection in the ankle. The patient will be rescheduled in a couple of weeks. Appreciate Dr. Garcia's input. For now, the patient is nonweightbearing as tolerated. She will need to work wi th PT to get better at transfers. 3.Chronic obstructive pulmonary disease with chronic respiratory failure. The patient on 4 L of oxy gen at home. Continue nebulizer treatments and supplemental oxygen. 4.Morbid obesity, BMI 74. 5.Bipolar disorder. We will continue home medications. 6.History of renal cancer status post left nephrectomy. 7.Deep venous thrombosis prophylaxis, we will add Lovenox. Plan: The patient does not have any benefits for inpatient rehab. She will need medical equipment a nd PT at home. Case discussed with Social Work and Case Management regarding durable medical equipme nt and arrangements for home health with PT. The patient still complaining of pain. Medications wer e adjusted. SA/MODL Voice ID: [id number] Report ID: [id number]
--- NOTE | 2018-10-14 23:02 | OP ---
Date of Procedure: 10/13/2018 Surgeon: Raúl Garcia MD Preoperative Diagnosis: Bimalleolar fracture, left ankle. Postoperative Diagnosis: Bimalleolar fracture, left ankle with fracture blister encountered over med ial malleolus. Primary Procedure: Preparation for ORIF of left ankle fracture involved general anesthesia with subs equent removal of posterior and coaptation splints to allow all prepping to occur with encounter of a small quarter-sized 1.5 cm diameter blister located directly over the fracture line of the medial ma lleolus fragment. The presence of the fracture blister made any incision in that area quite likely t o become infected. 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 It was decide d that a closed reduction and application of splint immobilization was a better choice for today's ac tivity. Description Of Procedure: The left lower extremity was suspended with traction by holding the great toe. This allowed traction and improved alignment while soft roll and Ortho-Glass fiberglass splinti ng material was used to fashion a well-cushioned posterior splint with Cesar wrap support followed by a sugar-tong type of coaptation splint with manipulation [id number] to help reduce the fractures for what is expected to be a 2-week wait for skin condition to allow the safe ORIF of the medial and lat eral malleolar fragments. Anesthesia was general directed by Dr. Mykel Fields. There were no comp lications. The patient was transferred to the recovery room having tolerated this procedure well. SAYRA/YANE Voice ID: [id number] Report ID: [id number]
[2018-10-15] MEDS: FENTANYL CITR 100 MCG/2 ML IV PRN ×5 (04:36→19:53)
[2018-10-15] MEDS: PROMETHAZINE 25 MG/ML VIAL IV PRN ×3 (04:41→19:59)
[2018-10-15 05:06] LABS: Absolute Lymphocytes (CBC) 1.3 K/uL (0.7-4.9); Basophils % 0.7 % (0-1.3); Eosinophils % 2.4 % (0-4.4); Hematocrit 36.4 % (36.0-45.0); Lymphocytes % 23.4 % (15.3-44.8); MPV 9.3 fL (7.6-11.3); Monocytes % 9.7 % (3.3-12.3); RBC Red Blood Cell Count 3.65 M/uL (3.86-4.86)
[2018-10-15] MEDS: ALBUTEROL 2.5 MG/3 ML NEB SOL NEB PRN (05:23)
[2018-10-15] MEDS: IPRATROPIUM BROM 0.5MG/2.5ML NEB PRN (05:23)
[2018-10-15 05:28] LABS: BUN Blood Urea Nitrogen 11 mg/dL (7-18); Bicarbonate 40 mmol/L (21-32); Glucose Level 81 mg/dL (74-106); Potassium 4.5 mmol/L (3.5-5.1); Sodium Level 144 mmol/L (136-145)
[2018-10-15] MEDS: PANTOPRAZOLE 40MG TABLET PO SCH (05:54)
[2018-10-15] MEDS: RISPERIDONE 1 MG TABLET PO SCH ×3 (08:35→19:52)
[2018-10-15] MEDS: ENOXAPARIN 40 MG/0.4 ML SQ SCH (08:35)
[2018-10-15] MEDS: CARBAMAZEPINE 200 MG PO SCH ×3 (08:37→19:51)
[2018-10-15] MEDS: BENZTROPINE 1 MG TAB PO SCH ×3 (08:38→19:52)
--- NOTE | 2018-10-15 13:14 | P.PN ---
Date of Service: 10/15/18 S: Patient concerned Fentanyl dose reduced to 25 mcg, states it did nothing for pain. Patient has had prior experience with Fentanyl with abcominal and RLE infection debridements. She states Demerol works better for her, definitely opiod familiar. Only 2 Marsing tabs given yesterday. O: Afebrile, maintaining O2 sats of 90 to 96 on n.c. 2 to 6L. Patient was able to stand at bedside times three,a minute each time yesterday. Cesar wraps around sugar tong splint loosened to cut posterior splint wrap in the anterior midline to reduce any likelihood of increasing pain symptoms. Toes with good sensation, brisk capillary refill, and normal dorsiflexion/plantar flexion. A: Patient continues having pain out of proportion to injury and usual experience with bimalleolar fracture. P: Important to mobilize patient as tolerated with NWB LLE. She needs training and practice as it will be important to protect plate and screws from wt- bearing for a month after ORIF in 2 weeks.
[2018-10-15] MEDS: HYDROCODONE/APAP 7.5/325 MG TAB PO PRN ×2 (13:17→21:58)
--- NOTE | 2018-10-15 13:29 | PN ---
Date of Progress Note: 10/15/2018 Subjective: The patient seen and examined. Chart reviewed and case discussed with RN. The patient states her pain is better. Worked with Physical Therapy yesterday, was able to stand on her own and transfer out of bed into the chair. Medications: List reviewed. Objective: Vital Signs: Temperature 97.8, heart rate 62, blood pressure 147/72, respirations 18, O2 98% on 4 L via nasal cannula. General: Awake, alert, oriented x3, not in any acute distress. Morbidly obese female, BMI 74. CV: S1, S2. Regular rate and rhythm. Peripheral pulses present. Respiratory: Somewhat diminished breath sounds at the bases, otherwise moving air well. Gastrointestinal: Abdomen is soft, nontender, nondistended. Positive bowel sounds. Extremities: No clubbing, cyanosis, or edema. Neurologic: Nonfocal. Musculoskeletal: Left leg in ankle immobilizer. Neurovascularly intact. Sensation intact to light touch. Laboratory Data: Sodium 144, potassium 4.5, chloride 103, CO2 of 40, BUN 11, creatinine 0.56, glucos e 81, calcium 8.3. WBC 5.4, H and H 11.6 and 36.4, platelets 150, neutrophils 63%. Assessment: A 48-year-old female with: 1.Status post mechanical fall. Continue with PT. 2.Left avulsion fracture of the medial malleolus, moderately displaced lateral malleolar fracture, i nitial encounter, closed. The patient unable to have open reduction. She did have a closed reductio n with splinting. Pain is significantly better. Working with PT. 3.Chronic obstructive pulmonary disease, chronic respiratory failure. The patient is on 4 L of oxyg en. We will continue with nebulized treatments and oxygen as needed. 4.Morbid obesity. BMI of 74. 5.Bipolar disorder. 6.History of renal cancer, status post left nephrectomy. 7.Deep venous thrombosis prophylaxis with Lovenox. Plan: We will start weaning off IV pain medications. Continue PT. Social Work and Case Management in the process of arranging for durable medical equipment. Discharge once the arrangements have been made. The patient will need outpatient followup with Orthopedics and subsequent ORIF. SA/MODL Voice ID: [id number] Report ID: [id number]
[2018-10-15] MEDS: DIAZEPAM 5 MG TABLET PO PRN ×2 (14:06→19:52)
[2018-10-15] MEDS ORDERED: FENTANYL CITR 100 MCG/2 ML IV PRN (16:12)
[2018-10-15] MEDS ORDERED: FENTANYL CITR 100 MCG/2 ML IV ONE (16:17)
[2018-10-16] MEDS: FENTANYL CITR 100 MCG/2 ML IV PRN ×7 (00:07→22:45)
[2018-10-16] MEDS: HYDROCODONE/APAP 7.5/325 MG TAB PO PRN ×5 (02:17→20:55)
[2018-10-16 04:17] LABS: Absolute Lymphocytes (CBC) 1.2 K/uL (0.7-4.9); Basophils % 0.5 % (0-1.3); Hematocrit 37.3 % (36.0-45.0); Lymphocytes % 22.1 % (15.3-44.8); MPV 8.4 fL (7.6-11.3); Monocytes % 10.4 % (3.3-12.3)
[2018-10-16] MEDS: PROMETHAZINE 25 MG/ML VIAL IV PRN ×4 (04:26→22:48)
[2018-10-16 04:35] LABS: BUN Blood Urea Nitrogen 10 mg/dL (7-18); Bicarbonate 38 mmol/L (21-32); Glucose Level 91 mg/dL (74-106); Potassium 4.3 mmol/L (3.5-5.1); Sodium Level 142 mmol/L (136-145)
[2018-10-16] MEDS: PANTOPRAZOLE 40MG TABLET PO SCH (06:39)
[2018-10-16] MEDS: IPRATROPIUM BROM 0.5MG/2.5ML NEB PRN ×2 (07:50→20:32)
[2018-10-16] MEDS: ALBUTEROL 2.5 MG/3 ML NEB SOL NEB PRN ×2 (07:50→20:32)
[2018-10-16] MEDS: CARBAMAZEPINE 200 MG PO SCH ×3 (08:56→20:54)
[2018-10-16] MEDS: ENOXAPARIN 40 MG/0.4 ML SQ SCH (08:56)
[2018-10-16] MEDS: BENZTROPINE 1 MG TAB PO SCH ×3 (08:58→20:55)
[2018-10-16] MEDS: RISPERIDONE 1 MG TABLET PO SCH ×3 (08:59→20:55)
[2018-10-16] MEDS: DIAZEPAM 5 MG TABLET PO PRN ×2 (12:45→17:39)
--- NOTE | 2018-10-16 16:27 | PN ---
Subjective: The patient is seen and examined. Chart reviewed and case discussed with RN. The patie nt has been reluctant with getting her pain medications, weaned off. The patient did work with [facility] yesterday, had some difficulty getting out of bed. Still awaiting equipment delivery. Medications: List reviewed. Physical Examination: Vital Signs: Temperature 97.4, heart rate 69, blood pressure 141/71, respirations 20, O2 94% on 5 L via nasal cannula. General: Awake, alert, oriented x3. Morbidly obese female in some mild distress due to pain. CV: S1, S2. Regular rate and rhythm. Peripheral pulses present. Respiratory: Moving air well bilaterally. No wheezing. Gastrointestinal: Abdomen is soft, nontender, nondistended. Positive bowel sounds. Extremities: No clubbing, cyanosis, or edema. Neurologic: Nonfocal. Musculoskeletal: Left ankle in a fracture boot. Laboratory Data: Sodium 142, potassium 4.3, chloride 101, CO2 38, BUN 10, creatinine 0.52, glucose 9 1, calcium 8.4. WBC 5.3, H and H 12 and 37.3, platelets 147, neutrophils 64%. Assessment And Plan: A 48-year-old female with: 1.Status post mechanical fall. 2.Left avulsion fracture of the medial malleolus moderately displaced and lateral malleolar fracture , initial encounter, closed, status post closed reduction with splinting, improved, working with [facility]. 3.Chronic obstructive pulmonary disease with chronic respiratory failure. The patient is on current ly 5 L of oxygen. We will continue albuterol treatments and oxygen as needed. 4.Morbid obesity, BMI 74. 5.Bipolar disorder, stable on home medications. 6.History of renal cancer status post left nephrectomy. 7.Deep venous thrombosis prophylaxis with Lovenox. Plan: We will decrease fentanyl to 25 mcg and continue to wean off. The patient is encouraged to wo rk with Physical Therapy. Case Management and Booster Pump Oiler in the process of arranging for equipmen t. We will discharge the patient once equipment has been delivered. The patient will follow up with Orthopedics as outpatient for subsequent ORIF. /YANE Voice ID: [id number] Report ID: [id number]
[2018-10-17] MEDS: HYDROCODONE/APAP 7.5/325 MG TAB PO PRN ×5 (00:45→15:07)
[2018-10-17] MEDS: FENTANYL CITR 100 MCG/2 ML IV PRN ×2 (02:50→06:33)
[2018-10-17] MEDS: PROMETHAZINE 25 MG/ML VIAL IV PRN (04:14)
[2018-10-17] MEDS: PANTOPRAZOLE 40MG TABLET PO SCH (06:34)
[2018-10-17 06:51] LABS: BUN Blood Urea Nitrogen 11 mg/dL (7-18); Bicarbonate 40 mmol/L (21-32); Glucose Level 86 mg/dL (74-106); Magnesium 2.1 mg/dL (1.8-2.4); Potassium 4.6 mmol/L (3.5-5.1); Sodium Level 142 mmol/L (136-145)
[2018-10-17] MEDS: ALBUTEROL 2.5 MG/3 ML NEB SOL NEB PRN ×2 (08:00→14:10)
[2018-10-17] MEDS: IPRATROPIUM BROM 0.5MG/2.5ML NEB PRN ×2 (08:00→14:10)
[2018-10-17] MEDS: ENOXAPARIN 40 MG/0.4 ML SQ SCH (08:20)
[2018-10-17] MEDS: CARBAMAZEPINE 200 MG PO SCH ×3 (08:21→21:20)
[2018-10-17] MEDS: BENZTROPINE 1 MG TAB PO SCH ×3 (08:21→21:20)
[2018-10-17] MEDS: RISPERIDONE 1 MG TABLET PO SCH ×3 (08:21→21:25)
[2018-10-17] MEDS ORDERED: IBUPROFEN 200 MG TAB PO PRN (10:16)
[2018-10-17] MEDS: DIAZEPAM 5 MG TABLET PO PRN ×2 (10:20→17:34)
--- NOTE | 2018-10-17 12:20 | P.PN ---
Date of Service: 10/16/18 S: Patient seems comfortable, at ease this morning. She was able to move from supine to sitting, and sit to stand was possible with pillows elevating chair height. O: Afebrile, maintaining O2 sats on n.c. 2 to 6L. the patient feels that was helpful to cut the deep layer of Cesar wrap and soft roll anterior to the ankle, definitely decreasing pain symptoms. Toes with good sensation, brisk capillary refill, and normal dorsiflexion/plantar flexion. A: Patient starting mobilization necessary for transfer to home care. She continues having pain out of proportion to injury, but seems to be on board with trying oral medication to save IV medication for postop days 1 and 2. P: It continues to be important to mobilize patient as tolerated with NWB LLE. Safety from falling is of utmost importance to avoid additional injuries.
[2018-10-17] MEDS ORDERED: HYDROCODONE/APAP 7.5/325 MG TAB PO ONE (12:32)
[2018-10-17] MEDS: HYDROCODONE/APAP 10/325 TAB PO PRN ×2 (19:04→23:28)
--- NOTE | 2018-10-17 19:12 | PN ---
Date of Progress Note: 10/17/2018 Subjective: The patient is seen and examined, chart reviewed and case discussed with RN. The patient does not appear to be in any acute distress. The patient states that she was able to get out of bed and transfer to the chair. She is waiting on bedside commode. Home Medications: List reviewed. Physical Examination: Vital Signs: Temperature 97.5, heart rate 57, blood pressure 138/73, respirations 20, O2 95% on 4 L via nasal cannula. General: Awake, alert, oriented x3. Morbidly obese female, no acute distress. CV: S1, S2. Regular rate and rhythm. Peripheral pulses present. Respiratory: Moving air well bilaterally. No wheezing. Gastrointestinal: Abdomen is soft, nontender, nondistended. Positive bowel sounds. Extremities: No clubbing, cyanosis, left lower extremity edema. Musculoskeletal: Left lower extremity in cast. Laboratory Data: Sodium 142, potassium 4.6, chloride 100, CO2 of 40, BUN 11, creatinine 0.59, glucose 86, calcium 8.6, magnesium 2.1. Assessment And Plan: A 48-year-old female with: 1. Status post mechanical fall. 2. Left avulsion fracture of the medial malleolus monitor displaced and lateral malleolar fracture, initial encounter, closed, status post closed reduction with splinting, improved. Continue with physical therapy for transfers. Avoid re-injury. Appreciate Dr. Garcia's input. 3. Chronic obstructive pulmonary disease with chronic respiratory failure, currently on 4 L of oxygen. Continue breathing treatments. Use supplemental oxygen as needed. 4. Morbid obesity BMI 74. 5. Bipolar disorder, stable. 6. History of renal cancer status post left nephrectomy, stable. 7. Deep venous thrombosis prophylaxis with Lovenox. Plan: Discontinue IV fentanyl and IV promethazine. The patient has pain out of proportion to exam. The patient does not display any objective signs of pain either. The patient is on multiple sedative medications as is. We will continue with p.o. pain medications only. May need to increase dose due to patient's body mass index. Plan is to discharge home with physical therapy once durable medical equipment has been delivered. Case management and social insurance administrator aware working with the patient closely. The patient will eventually need subsequent ORIF once blister has resolved. /YANE Voice ID: [id number] Report ID: [id number] MTDD
[2018-10-17] MEDS: ZOLPIDEM TARTRATE 10 MG TABLET PO PRN (21:20)
[2018-10-18] MEDS: HYDROCODONE/APAP 10/325 TAB PO PRN ×5 (03:46→22:13)
[2018-10-18] MEDS: PANTOPRAZOLE 40MG TABLET PO SCH (05:24)
[2018-10-18] MEDS: BENZTROPINE 1 MG TAB PO SCH ×3 (09:58→21:09)
[2018-10-18] MEDS: CARBAMAZEPINE 200 MG PO SCH ×3 (09:58→21:08)
[2018-10-18] MEDS: RISPERIDONE 1 MG TABLET PO SCH ×3 (09:59→21:13)
[2018-10-18] MEDS: ENOXAPARIN 40 MG/0.4 ML SQ SCH (09:59)
[2018-10-18] MEDS: DIAZEPAM 5 MG TABLET PO PRN ×2 (12:20→18:14)
[2018-10-18] MEDS: ZOLPIDEM TARTRATE 10 MG TABLET PO PRN (21:09)
--- NOTE | 2018-10-18 21:33 | P.PN ---
Subjective Date of Service: 10/18/18 The patient is seen and examined, chart reviewed and case discussed with RN. The patient does not appear to be in any acute distress. The patient states that she was able to get out of bed and transfer to the chair. She is waiting on bedside commode. Review of Systems 10-point ROS is otherwise unremarkable Physical Examination - Vital Signs Temperature: 97.2 F Blood Pressure: 130/72 Pulse: 70 Respirations: 18 Pulse Ox (%): 93 - Physical Exam General: Alert, In no apparent distress, Oriented x3, Obese HEENT: Atraumatic, PERRLA, EOMI Neck: Supple, JVD not distended Respiratory: Clear to auscultation bilaterally, Normal air movement Cardiovascular: Regular rate/rhythm, Normal S1 S2 Gastrointestinal: Normal bowel sounds, No tenderness Musculoskeletal: Other (Left lower extremity in a cast) Integumentary: No rashes Neurological: Normal speech, Normal tone, Normal affect Lymphatics: No axilla or inguinal lymphadenopathy Assessment And Plan - Plan A 48-year-old female with: 1. Status post mechanical fall. 2. Left avulsion fracture of the medial malleolus monitor displaced and lateral malleolar fracture, initial encounter, closed, status post closed reduction with splinting, improved. Continue with physical therapy for transfers. Avoid re-injury. Appreciate Dr. Garcia's input. 3. Chronic obstructive pulmonary disease with chronic respiratory failure, currently on 4 L of oxygen. Continue breathing treatments. Use supplemental oxygen as needed. 4. Morbid obesity BMI 74. 5. Bipolar disorder, stable. 6. History of renal cancer status post left nephrectomy, stable. 7. Deep venous thrombosis prophylaxis with Lovenox. Plan: Discontinue IV fentanyl and IV promethazine. The patient has pain out of proportion to exam. The patient does not display any objective signs of pain either. The patient is on multiple sedative medications as is. We will continue with p.o. pain medications only. May need to increase dose due to patient's body mass index. Plan is to discharge home with physical therapy once durable medical equipment has been delivered. Case management and social work lecturer aware working with the patient closely. The patient will eventually need subsequent ORIF once blister has resolved.
[2018-10-19] MEDS: HYDROCODONE/APAP 10/325 TAB PO PRN ×2 (04:09→08:10)
[2018-10-19] MEDS: PANTOPRAZOLE 40MG TABLET PO SCH (05:27)
[2018-10-19] MEDS: ENOXAPARIN 40 MG/0.4 ML SQ SCH (08:09)
[2018-10-19] MEDS: BENZTROPINE 1 MG TAB PO SCH (08:10)
[2018-10-19] MEDS: RISPERIDONE 1 MG TABLET PO SCH (08:10)
[2018-10-19] MEDS: CARBAMAZEPINE 200 MG PO SCH (08:10)
[2018-10-19] MEDS: ALBUTEROL 2.5 MG/3 ML NEB SOL NEB PRN (08:30)
[2018-10-19] MEDS: IPRATROPIUM BROM 0.5MG/2.5ML NEB PRN (08:30)
[2018-10-19 10:41] VITALS: O2SAT 92
[2018-10-19 16:53] VITALS: BP 130/72; TEMP 97.2
--- NOTE | 2018-10-19 17:46 | P.DS ---
Admission Date: 10/12/18 Discharge Date: 10/19/18 Disposition: DC HOME/HOME HEALTH CARE Discharge Condition: GOOD Reason for Admission: Ankle fracture Consultations: Dr. Jose Thomas Procedures: Closed reduction. Unable to do ORIF due to blister around potential incision site. Brief History of Present Illness: History Of Present Illness: The patient is a 48-year-old female with history of asthma, COPD, morbid obesity, bipolar disorder, obstructive sleep apnea, history of kidney cancer status post left nephrectomy, who was in her usual state of health until the day of admission when the patient had a mechanical fall reaching for her nasal cannula on the floor, tripped over a shoe, twisted her ankle and fell. The patient reported immediate pain, swelling, inability to put weight on the foot. Her symptoms were constant, moderate, progressively worsening. The patient's pain was worsened with pressure on the foot, alleviated with rest. The patient came into the ER for further evaluation. Her workup in the ER revealed an avulsion fracture seen on the x-ray. The patient was placed in soft cast and given pain medications. The patient was then referred for admission. When seen in the ER, she was awake, alert, oriented x3, in some mild distress due to pain. Hospital Course: Patient was admitted for a left ankle fracture s/p mechanical fall. Cardiology was then consulted for cardiac clearance. She was cleared for surgical intervention and she was in the process of undergoing an ORIF with Dr. Garcia. She was found to have a blister around the potential incision site therefore surgery was not done due to increased risk for infection. She then underwent closed reduction. The patient will be rescheduled for ORIF in a couple of weeks. Patient is to continue non weight bearing. She did work with PT to work on transfers. Patient does not have any benefits for inpatient rehab. SW was consulted for set up of DME equipment. She was subsequently weaned off of IV pain medications. Her discharge was delayed for DME equipment setup. She otherwise remained stable throughout the stay. She will need outpatient orthopedic surgery follow up for ORIF once blister has resolved. Vital Signs/Physical Exam: Temp Pulse Resp BP Pulse Ox 97.2 F 70 18 130/72 93 10/19/18 16:52 10/19/18 16:52 10/19/18 16:52 10/19/18 16:52 10/19/18 16:52 General: Alert, In no apparent distress, Oriented x3, Obese HEENT: Atraumatic, PERRLA, EOMI Neck: Supple, JVD not distended Respiratory: Clear to auscultation bilaterally, Normal air movement Cardiovascular: Regular rate/rhythm, Normal S1 S2 Gastrointestinal: Normal bowel sounds, No tenderness Musculoskeletal: Other (Cast in place) Integumentary: No rashes Neurological: Normal speech, Normal tone, Normal affect Lymphatics: No axilla or inguinal lymphadenopathy Laboratory Data at Discharge: WBC 5.3 K/uL (4.3-10.9) 10/16/18 03:57 Hgb 12.0 g/dL (12.0-15.0) 10/16/18 03:57 Hct 37.3 % (36.0-45.0) 10/16/18 03:57 Plt Count 147 K/uL (152-406) L 10/16/18 03:57 Sodium 142 mmol/L (136-145) 10/17/18 06:04 Potassium 4.6 mmol/L (3.5-5.1) 10/17/18 06:04 BUN 11 mg/dL (7-18) 10/17/18 06:04 Creatinine 0.59 mg/dL (0.55-1.3) 10/17/18 06:04 Glucose 86 mg/dL (74-106) 10/17/18 06:04 Magnesium 2.1 mg/dL (1.8-2.4) 10/17/18 06:04 Total Bilirubin 0.3 mg/dL (0.2-1.0) 10/13/18 04:58 AST 12 U/L (15-37) L 10/13/18 04:58 ALT 23 U/L (12-78) 10/13/18 04:58 Alkaline Phosphatase 74 U/L (45-117) 10/13/18 04:58 Home Medications: Albuterol Neb [Proventil 0.083% Neb Soln] 3 ml IH QID PRN 10/12/18 Albuterol Sulfate [Proair Hfa] 1 puff IH Q4H PRN 10/12/18 Benztropine Mesylate [Cogentin] 1 mg PO TID 10/12/18 Carbamazepine [Equetro] 300 mg PO BID 10/12/18 Diazepam [Valium] 5 mg PO QID PRN 10/12/18 Levalbuterol Tartrate [Xopenex Hfa] 1 puff IH Q6H 10/12/18 Omeprazole [Prilosec] 40 mg PO DAILY 10/12/18 Risperidone [Risperdal] 1 mg PO TID 10/12/18 Zolpidem Tartrate [Ambien] 10 mg PO BEDTIME PRN PRN 10/12/18 Patient Discharge Instructions: Please follow up with Dr. Garcia regarding further surgery once blister has resolved. Please return to the Emergency room for worsening symtpoms. Diet: AHA Followup: Raúl Garcia MD [ACTIVE - CAN ADMIT] - (ORTHOPEDIC SURGEON. FOLLOW UP NEXT WEEK, CALL FOR APPOINTMENT. ) Adele York MD [OUTSIDE PHYSICIAN] - (PRIMARY CARE DOCTOR. FOLLOW UP IN 1-2 WEEKS, CALL FOR APPOINTMENT. ) Time spent managing pt's care (in minutes): 55
== END 2018-10-19 12:00 | disposition home health service (06) | DRG 563 ==
LOC: ER 12:49 → ERHOLD 17:44 → 2ND 19:22
PROVIDERS: ADMIT Family Medicine; ATTEND Family Medicine
PROC: 0QSHXZZ Reposition Left Tibia, External Approach (ICD-10-PCS; 2018-10-13)
PROC: 2W6 Placement, Anatomical Regions, Traction (ICD-10-PCS; 2018-10-13)
PROC: 0QSKXZZ Reposition Left Fibula, External Approach (ICD-10-PCS; principal; 2018-10-13 13:00)
DX: S82.842A Displaced bimalleolar fracture of left lower leg, initial encounter for closed fracture (principal); Z68.45 Body mass index [BMI] 70 or greater, adult; J96.10 Chronic respiratory failure, unspecified whether with hypoxia or hypercapnia; W01.0XXA Fall on same level from slipping, tripping and stumbling without subsequent striking against object, initial encounter; Y92.019 Unspecified place in single-family (private) house as the place of occurrence of the external cause; J44.9 Chronic obstructive pulmonary disease, unspecified; Z99.81 Dependence on supplemental oxygen; F31.9 Bipolar disorder, unspecified; E66.01 Morbid (severe) obesity due to excess calories; G47.33 Obstructive sleep apnea (adult) (pediatric); K21.9 Gastro-esophageal reflux disease without esophagitis; Z87.891 Personal history of nicotine dependence; Z85.528 Personal history of other malignant neoplasm of kidney; Z90.5 Acquired absence of kidney; Z88.5 Allergy status to narcotic agent; Z88.0 Allergy status to penicillin; Z88.6 Allergy status to analgesic agent; Z91.041 Radiographic dye allergy status
CPT/HCPCS: 36415; 51702; 70450; 72125; 80048; 80053; 83735; 85025; 86850; 86900; 86901; 93005; 93306; 94640; 94760; 96374; 97162; 97530; 99285; J0330; J0690; J1650; J2175; J2250; J2405; J2550; J2704; J2710; J3010

== ENCOUNTER 2018-10-25 06:04 | Observation (INO) | payer OTHER ==
--- NOTE | 2018-10-20 16:15 | RAD REPORT ---
EXAM DESCRIPTION: RAD - Chest Pa And Lat (2 Views) - 10/20/2018 4:00 pm CLINICAL HISTORY: preop Chest pain. COMPARISON: Chest Single View dated 10/07/2018; Chest Single View dated 09/22/2018; Chest Single View d ated 07/23/2018; Chest Single View dated 06/09/2018 FINDINGS: The lungs are clear. The heart is moderately enlarged in size. Small to moderate hiatal he rnia. IMPRESSION: Moderate cardiomegaly.
[2018-10-20 17:10] LABS: Absolute Lymphocytes (CBC) 1.4 K/uL (0.7-4.9); Basophils % 0.8 % (0-1.3); Eosinophils % 1.7 % (0-4.4); Hematocrit 40.5 % (36.0-45.0); Lymphocytes % 24.4 % (15.3-44.8); MPV 9.1 fL (7.6-11.3); Monocytes % 7.9 % (3.3-12.3); RBC Red Blood Cell Count 4.14 M/uL (3.86-4.86)
[2018-10-20 17:15] LABS: Urine Appearance CLOUDY; Urine Bilirubin NEGATIVE (NEG); Urine Blood NEGATIVE (NEG); Urine Color YELLOW; Urine Glucose NEGATIVE (NEG); Urine Protein NEGATIVE (NEG); Urine Specific Gravity 1.025 (1.005-1.030); Urine pH 7.5 (5.0-7.0)
[2018-10-20 17:16] LABS: Urine Microscopic Reflex ORDER UMIC
[2018-10-20 17:28] LABS: Albumin 3.1 g/dL (3.4-5.0); Bilirubin Total 0.2 mg/dL (0.2-1.0); Potassium 4.2 mmol/L (3.5-5.1); Protein, Total 6.7 g/dL (6.4-8.2)
[2018-10-20 17:37] LABS: Urine Amorphous Sediment TRACE /HPF (NONE SEEN); Urine Bacteria <20 /HPF (<20); Urine Culture Reflex Order NOT NEEDED; Urine RBC NONE SEEN /HPF (NONE SEEN)
--- OUTSIDE RECORDS SUMMARY | 2018-10-25 06:06 | XMS REPORT ---
:1970 [facility] Address [address] [place] [address] Dr. Bernardo [address] [place] [id number] Care Team Providers Name Role Phone Unavailable Unavailable Unavailable Problems This patient has no known problems. Allergies, Adverse Reactions, Alerts This patient has no known allergies or adverse reactions. Medications This patient has no known medications.
[2018-10-25] MEDS ORDERED: Ringers Lactate 1,000 ML IV ONE ×2 (06:39→10:05)
[2018-10-25] MEDS ORDERED: VANCOMYCIN/NS 1 gm 1 GM/250 ML BAG IV ONE (07:15)
[2018-10-25] MEDS ORDERED: PROPOFOL 200 MG/20 ML VIAL IV ONE (07:27)
[2018-10-25] MEDS ORDERED: LIDOCAINE 2% MPF 5 ML VIAL ONE (07:29)
[2018-10-25] MEDS ORDERED: ROCURONIUM 50 MG/5 ML VIAL IV ONE (07:29)
[2018-10-25] MEDS ORDERED: GLYCOPYRROLATE 0.2 MG/ML SYR ONE ×2 (07:29)
[2018-10-25] MEDS ORDERED: FENTANYL CITR 250 MCG/5 ML ONE (07:29)
[2018-10-25] MEDS ORDERED: MIDAZOLAM HCL 2 MG/2 ML INJ ONE (07:30)
[2018-10-25] MEDS: BUPIVACAINE 0.25% PF 10 ML VIAL ONE ×2 (08:26→11:02)
[2018-10-25] MEDS ORDERED: NEOSTIGMINE 1 MG/ML -10 ML VIAL ONE (08:38)
[2018-10-25] MEDS ORDERED: ONDANSETRON 4 MG/2 ML VIAL ONE (08:38)
--- NOTE | 2018-10-25 10:45 | RAD REPORT ---
EXAM DESCRIPTION: RAD - Ankle Left 3 View - 10/25/2018 10:40 am CLINICAL HISTORY: ORIF OR 4 COMPARISON: Ankle Left 3 View dated 10/13/2018 FINDINGS: Fluoroscopy time 0.6 minutes.
[2018-10-25] MEDS: FENTANYL CITR 250 MCG/5 ML ONE ×4 (11:43→11:58)
[2018-10-25] MEDS ORDERED: FENTANYL CITR 100 MCG/2 ML ONE (11:44)
[2018-10-25] MEDS ORDERED: DOCUSATE NA 100 MG CAP PO PRN (11:46)
[2018-10-25] MEDS ORDERED: ONDANSETRON 4 MG/2 ML VIAL IV PRN (11:46)
[2018-10-25] MEDS ORDERED: ZOLPIDEM TARTRATE 5 MG TABLET PO PRN (11:46)
[2018-10-25] MEDS ORDERED: SUCCINYLCHOLINE 20 MG/ML (10 ML) IV ONE (11:49)
[2018-10-25] MEDS: Ringers Lactate 1,000 ML IV SCH ×2 (12:00→17:24)
[2018-10-25] MEDS ORDERED: PROMETHAZINE 25 MG/ML VIAL ONE (12:18)
[2018-10-25] MEDS ORDERED: MEPERIDINE HCL 50 MG/ML AMP ONE (12:31)
[2018-10-25] MEDS: MEPERIDINE HCL 50 MG/ML AMP ONE ×2 (12:34→12:42)
[2018-10-25 12:51] LABS: Hematocrit 36.2 % (36.0-45.0)
[2018-10-25] MEDS: HYDROCODONE/APAP 7.5/325 MG TAB PO PRN ×3 (13:14→22:32)
[2018-10-25] MEDS ORDERED: DIAZEPAM 5 MG TABLET PO PRN (13:30)
[2018-10-25] MEDS ORDERED: TIZANIDINE 4 MG TABLET PO PRN (13:30)
[2018-10-25 13:34] VITALS: BMI 60.5
[2018-10-25] MEDS: CARBAMAZEPINE 300 MG PO SCH ×2 (14:00→20:05)
[2018-10-25] MEDS: BENZTROPINE 1 MG TAB PO SCH ×2 (14:31→20:05)
[2018-10-25] MEDS: RISPERIDONE 1 MG TABLET PO SCH ×2 (14:31→20:05)
[2018-10-25] MEDS: FENTANYL CITR 100 MCG/2 ML IV PRN ×2 (15:08→20:05)
[2018-10-25 17:21] LABS: Hematocrit 34.6 % (36.0-45.0)
--- NOTE | 2018-10-25 17:57 | P.BOP ---
Preoperative diagnosis: BIMALLEOLAR FRACTURE LEFT ANKLE Postoperative diagnosis: SAME Primary procedure: DELAYED ORIF OF BIMALLEOLAR FRACTURE LEFT ANKLE DUE TO FRACTURE BLISTER Looper Operator: RONY REGAN (GAVE VERY NECESSARY REFUGE MANAGER SERVICES THROUGHOUT CASE) Estimated blood loss: 250 mL, TOURNIQUET FAILED TO MAINTAIN BLOODLESS FIELD THROUGHOUT THE CASE Specimen: NONE Findings: AVULSED FRACTURE MEDIAL MALLEOLUS; LONG OBLIQUE FRACTURE LATERAL MALLEOLUS Anesthesia: General Complications: None Implants: 7 HOLE 1/3TUBE PLATE+2CANCEL./5CORT.SCREWS//2CAN.CANCEL SCREWS Fluids & blood products: INJECTED 30 Ml 0.25% mARCAINE PLAIN IN MEDIAL AND LATERAL ANKLE INCISIONS Transferred to: ICU (ANESTHESIA REQUESTED OVERNIGHT OBSERVATION IN THE ICU) Condition: Good
--- NOTE | 2018-10-25 18:19 | CON ---
Date of Consultation: 10/25/2018 Reason For Consultation: Medical management. History Of Present Illness: The patient is a 48-year-old female with past medical history of asthma, COPD, morbid obesity, bipolar disorder, obstructive sleep apnea, insomnia, who was recently admitted on 10/12/2018 for left ankle pain and fracture. The patient was unable to have surgery due to blist er on the proposed incision site and therefore was sent home and was readmitted for procedure once th e blister had resolved. The patient had ORIF done today for bimalleolar fracture by Dr. Garcia. The patient is being observed in the ICU due to her comorbid conditions. Hospitalist service was consul cipriano for medical management. The patient tolerated the procedure well. She is now awake and alert, o ff the ventilator, complaining of pain. Past Medical History: COPD on 4 L via nasal cannula, bipolar disorder, kidney cancer, status post le ft nephrectomy, morbid obesity, history of lap band with subsequent reversal, GERD, former smoker, in somnia. Surgical History: Hysterectomy, right lower leg I and D, lap band, status post reversal, , I and ID to the abdomen superficially, left shoulder surgery and now left ankle surgery. Allergies: TO ASPIRIN, MUCINEX, HYDROMORPHONE, MORPHINE, NSAIDS, PENICILLIN, CODEINE, CONTRAST DYE A ND DEMEROL. Medications: List reviewed. Social History: The patient smokes 1 pack of cigarettes daily, however, quit recently. Denies alcoh ol use or illicit drug use. Family History: Father has heart disease, hypertension, cancer, liver disease. Mother has lung dise ase and COPD. Review of Systems: Ten-point system reviewed, negative except as per HPI. Physical Examination: Vital Signs: Temperature 97.2, heart rate 67, blood pressure 112/66, respirations 14, O2 saturation 97% on 4 L via nasal cannula. General: Awake, alert, oriented x3, in mild distress due to pain. Morbidly obese female. HEENT: Normocephalic, atraumatic. PERRLA. EOMI. Moist mucous membranes. Oropharynx is clear. Po or dentition. Conjunctivae are anicteric. Neck: Supple. No JVD. Trachea midline. CV: S1, S2. Regular rate and rhythm. Peripheral pulses present. Respiratory: Moving air well bilaterally. No wheezing or stridor. No use of accessory muscles. Gas trointestinal: Abdomen is soft, obese, nontender, nondistended. Positive bowel sounds. No guarding or rigidity. Extremities: No clubbing or cyanosis. The patient has minimal pedal edema on the left. No calf ten derness. NEURO: Cranial nerves 2 through 12 intact grossly. No focal neurological deficits. Speech is rosa l. Musculoskeletal: Left ankle in a splint and Cesar wrapped. Laboratory Data: Pending H and H are 11.9 and 36.2. Imaging Studies: Ankle x-ray reviewed. Assessment And Plan: A 48-year-old female with, 1.Left ankle bimalleolar fracture closed, status post open reduction and internal fixation by Dr. Jone barraza. The patient is currently on fentanyl and [place]. Tolerated procedure well. 2.Chronic obstructive pulmonary disease with chronic respiratory failure. The patient is currently on 4 L nasal cannula, which is her baseline at home. We will continue to monitor pulse oximetry. 3.Morbid obesity. BMI 60. 4.Bipolar disorder. We will resume the patient's home psychiatric medications. 5.History of kidney cancer status post left-sided nephrectomy. 6.Nicotine dependence with cigarette smoking, counseled. 7.Deep venous thrombosis prophylaxis with Lovenox. Plan: PT, OT. The patient's Ambien will be decreased to 5 mg at bedtime, tizanidine will be switche d to 4 mg t.i.d. and p.r.n. instead of scheduled. It should be noted that the patient takes signific ant amount of sedating medications at home. Recommend follow up with psychiatrist or PCP and reduce doses and to completely come off chronic benzodiazepines. The patient will also need to follow up [facility] bariatric surgeon once ankle has healed for evaluation for bariatric surgery. Thank you for the opportunity to participate in your patient's care. We will follow along with you. /YANE Voice ID: [id number] Report ID: [id number]
[2018-10-26] MEDS: FENTANYL CITR 100 MCG/2 ML IV PRN ×4 (00:08→12:47)
[2018-10-26] MEDS: HYDROCODONE/APAP 7.5/325 MG TAB PO PRN (03:06)
[2018-10-26 04:57] LABS: Hematocrit 31.6 % (36.0-45.0)
[2018-10-26 06:02] VITALS: TEMP 97.4
[2018-10-26] MEDS ORDERED: PANTOPRAZOLE 40MG TABLET PO SCH (06:30)
[2018-10-26] MEDS: Ringers Lactate 1,000 ML IV SCH (07:29)
[2018-10-26] MEDS: BENZTROPINE 1 MG TAB PO SCH (08:03)
[2018-10-26] MEDS: RISPERIDONE 1 MG TABLET PO SCH (08:04)
[2018-10-26] MEDS: CARBAMAZEPINE 300 MG PO SCH (08:04)
[2018-10-26] MEDS ORDERED: ENOXAPARIN 40 MG/0.4 ML SQ SCH (09:00)
[2018-10-26] MEDS ORDERED: ALBUTEROL 2.5 MG/3 ML NEB SOL NEB PRN (10:45)
[2018-10-26 11:58] VITALS: O2SAT 94
[2018-10-26 14:43] VITALS: BP 130/71
--- NOTE | 2018-10-26 15:47 | PN ---
Date of Progress Note: 10/26/2018 Subjective: The patient seen and examined. Chart reviewed and case discussed with RN. The patient according to the nursing staff has been somnolent due to pain medications in her home medications. H owever, the patient to me is requesting more pain medications. Overall, pain is better. Medications: List reviewed. Physical Examination: Vital Signs: Temperature 97.4, heart rate 73, blood pressure 115/60, respirations 21, O2 95% on 4 L via nasal cannula. General: Asleep but arousable, oriented x3. Morbidly obese female, not in any acute distress. CV: S1 and S2. Regular rate and rhythm. Respiratory: Moving air well bilaterally. No wheezing. Gastrointestinal: Abdomen is soft, nontender, nondistended. Positive bowel sounds. Extremities: No clubbing, cyanosis, or edema. Musculoskeletal: Left ankle in a splint, wrapped with Cesar wrap. Neuro: Cranial nerves 2 through 12 intact grossly. No focal neurological deficits. Sensation intac t to light touch. Laboratory Data: H and H are 10.5 and 31.6. Assessment And Plan: A 48-year-old female with: 1.Left ankle fracture, status post open reduction and internal fixation, postoperative day #1, by Dr Raghu Garcia. The pain is well controlled. The patient is on fentanyl IV and [place]. Getting medication s every 2 hours. 2.Chronic obstructive pulmonary disease with chronic respiratory failure. Continue supplemental oxy gen. The patient is on a nasal cannula at 4 L, which is at her baseline. We will add albuterol de thing treatments as needed every 6 hours. The patient encouraged to continue incentive spirometer. 3.Bipolar disorder. The patient's psychiatric medications have been resumed. 4.Morbid obesity, BMI 60. 5.History of kidney cancer, status post left nephrectomy, stable. 6.Nicotine dependence with cigarette smoking, counseled. 7.Deep venous thrombosis prophylaxis with Lovenox. Plan: PT/OT as per Orthopedics. We will continue to monitor H and H. Continue DVT prophylaxis with Lovenox. SA/MODL Voice ID: [id number] Report ID: [id number]
--- NOTE | 2018-11-03 03:21 | OP ---
Date of Procedure: 10/25/2018 Surgeon: Raúl Garcia MD Sanitizer: TANNER Perez, who gave very necessary service assistant services throughout the case. Preoperative Diagnosis: Bimalleolar fracture, left ankle. Postoperative Diagnosis: Bimalleolar fracture, left ankle. Procedure: Delayed ORIF of bimalleolar fracture, left ankle, due to fracture blister appearing within the first 24 hours. Indications: This 48-year-old morbidly obese female fell at home with bimalleolar fracture. She was admitted to the hospital and placed in a special air support bed with the left lower extremity splinted and elevated overnight. The patient was taken to surgery the following day and under general anesthesia , the splint was removed and a fracture blister was found over the operative site. The patient was placed back in a posterior and coaptation splint and followed up for 2 weeks while the skin blister healed. She has returned to surgery 2 weeks after her initial injury. After inspection of the skin at the office, proved clear. Description Of Procedure: The patient was taken to the operating room. A time- out was called and all pertinent facts were discussed and it was decided to proceed with the ORIF of the left ankle as planned. A tourniquet was placed in position and a bolster was placed under the left hip to allow access to the lateral ankle. The patient was given 1gm Vancomycin prior to a general anesthesia with intubation. Then, the left lower extremity was prepped and draped in the usual manner. The limb was exsanguinated with an Esmarch bandage and the tourniquet was raised to 300 mmHg. During this procedure, the tourniquet failed to maintain a bloodless field due to the huge size of the left thigh. The tourniquet was left up for 2 hours and then deflated during the procedure with Bovie coagulation for hemostasis. Estimated blood loss during this procedure was 250 mL. The incisions were drawn on the medial and lateral sides of the ankle. The medial incision was carried sharply through skin and subcutaneous tissue to the medial malleolus and curved to allow exposure of the tip of the medial malleolus fragment. The reduction was carried out. It was held in an excellent position and 2 smooth C wires were placed for stabilization of the fragment in the reduced position for later application of smooth shafted 4 mm cannulated screws. The medial incision was packed with wet Ray-Montrell. Attention was then turned to the lateral incision. The C-arm was available for evaluation of each step in the ORIF sequence. There was a longitudinal incision placed just lateral to the lateral malleolus. This was carried sharply through the skin and subcutaneous tissue. Then exposure of a long oblique fracture was carried out. This was reduced with traction and claw clamps were applied. The neutralization plate was estimated in length and shape by applying a malleable aluminum template. This allowed us to select a 7-hole 1/3 tubular plate. After it was shaped and applied to the lateral side of the fibula, 2 fully threaded cancellous screws were placed in the most distal 2 holes and 5 cortical screws were placed proximally for stabilization of the long oblique fracture. The lateral incision was irrigated profusely and closed in layers with 2-0 Vicryl for the fascial and subcu closure and skin jose a for skin closure. The tourniquet was released prior to the closure at 2 hours and the Bovie hemostasis was carried out throughout the closure. Once the skin jose a were in position, the medial incision was irrigated profusely with Simpulse lavage and normal saline. The closure there was effected after the smooth shaft 4 mm diameter cancellous screws were placed over the smooth guidewires with removal of the smooth pins as the screws were tightened in place. Closure was effected with 2-0 Vicryl for subcu and fascial layers. Skin jose a were used for skin closure. Both incisions were covered with Xeroform gauze and 4 x 4 gauze, ABDs were placed on each side of the ankle. A soft roll was applied to cushion the foot, heel, and lower leg. Several rolls were utilized. Then a posterior splint was applied using Ortho splint prefabricated and padded, 4 x 40 cm splints. The coaptation splint was placed over the Cesar roll that was used to secure position for the posterior splint. Estimated blood loss was 250 mL. The incisions had been injected with 30 mL of 0.25% plain Marcaine. The patient was taken to the recovery room having tolerated this procedure well. SAYRA/YANE Voice ID: [id number] Report ID: [id number] JAZMYN
== END 2018-10-26 14:00 | disposition home health service (06) ==
LOC: OR 06:04 → 3RD-ICU 11:48
PROVIDERS: ADMIT Orthopaedic Surgery; ATTEND Orthopaedic Surgery
PROC: 0QSH04Z Reposition Left Tibia with Internal Fixation Device, Open Approach (ICD-10-PCS; 2018-10-25)
PROC: 0QSK04Z Reposition Left Fibula with Internal Fixation Device, Open Approach (ICD-10-PCS; principal; 2018-10-25 07:30)
DX: S82.842A Displaced bimalleolar fracture of left lower leg, initial encounter for closed fracture (principal); W18.09XA Striking against other object with subsequent fall, initial encounter; X50.1XXA Overexertion from prolonged static or awkward postures, initial encounter; E66.01 Morbid (severe) obesity due to excess calories; Z68.44 Body mass index [BMI] 60.0-69.9, adult; J44.9 Chronic obstructive pulmonary disease, unspecified; K21.9 Gastro-esophageal reflux disease without esophagitis; G47.33 Obstructive sleep apnea (adult) (pediatric); G47.00 Insomnia, unspecified; F31.9 Bipolar disorder, unspecified; F17.210 Nicotine dependence, cigarettes, uncomplicated; I51.7 Cardiomegaly; K44.9 Diaphragmatic hernia without obstruction or gangrene; Z79.52 Long term (current) use of systemic steroids; Z79.899 Other long term (current) drug therapy; Z85.528 Personal history of other malignant neoplasm of kidney; Z90.5 Acquired absence of kidney
CPT/HCPCS: 36415; 71046; 80053; 81003; 81015; 83036; 85014; 85018; 85025; 86850; 86900; 86901; 97110; 97163; 97530; G0378; J0330; J1650; J2175; J2250; J2405; J2550; J2704; J2710; J3010; J3370

== ENCOUNTER 2019-01-24 18:37 | Emergency (ER) | payer OTHER ==
[2019-01-24] MEDS ORDERED: MEPERIDINE HCL 50 MG/ML ONE (19:29)
--- NOTE | 2019-01-24 20:04 | RAD REPORT ---
EXAM DESCRIPTION: RAD - Ankle Left 3 View - 01/24/2019 7:54 pm CLINICAL HISTORY: PAIN COMPARISON: Ankle Left 3 View dated 10/25/2018 FINDINGS: Soft tissue swelling is seen about the ankle. A lateral fibular sideplate is present with multiple screws. Two lag screws are seen in the medial malleolus with lucency still visible involving the medial malleoli are fracture line. No lucency is seen about the hardware to suggest loosening.
--- NOTE | 2019-01-24 20:09 | ER ---
Nurse's Notes [facility] Name: Oleg Rosenberg Age: 48 yrs Sex: Female : 1970 Arrival Date: 01/24/2019 Time: 18:41 Bed 23 Private MD: Diagnosis: Sprain of ankle Presentation: 01/24 18:42 Presenting complaint: EMS states: Pt tripped on grand kid's toy and twisted L ankle. Pt ca1 had L ankle surgery 3 months ago, never healed. 2 weeks ago, pt was on antibiotic for infection at the ankle. Transition of care: patient was not received from another setting of care. Onset of symptoms was January 24, 2019. Risk Assessment: Do you want to hurt yourself or someone else? Patient reports no desire to harm self or others. Initial Sepsis Screen: Does the patient meet any 2 criteria? No. Patient's initial sepsis screen is negative. Care prior to arrival: None. 18:42 Method Of Arrival: EMS: [facility] ca1 18:42 Acuity: AAYUSH 4 ca1 19:00 Initial Sepsis Screen: Does the patient have a suspected source of infection? No. ca1 Patient's initial sepsis screen is negative. CONTINUING EDUCATION DEAN: 18:49 LMP N/A - Hysterectomy ca1 Historical: - Allergies: 18:49 Dilaudid; ca1 18:49 Aspirin; ca1 18:49 Iodinated Contrast Media - IV Dye; ca1 18:49 Iodine; ca1 18:49 Morphine; ca1 18:49 Mucinex; ca1 18:49 NSAIDS; ca1 18:49 PENICILLINS; ca1 18:49 Zofran; ca1 - PMHx: 18:49 Asthma; Bipolar disorder; Bronchitis; COPD; Depression; kidney cancer; ca1 - PSHx: 18:49 Hysterectomy; ; Nephrectomy (L); L shoulder Sx; L ankle Sx; ca1 - Immunization history:: Adult Immunizations up to date. - Social history:: Smoking status: Patient uses tobacco products, smokes one-half pack cigarettes per day. - Ebola Screening: : Patient negative for fever greater than or equal to 101.5 degrees Fahrenheit, and additional compatible Ebola Virus Disease symptoms Patient denies exposure to infectious person Patient denies travel to an Ebola-affected area in the 21 days before illness onset No symptoms or risks identified at this time. - Family history:: not pertinent. - Hospitalizations: : No recent hospitalization is reported. Screenin:00 Abuse screen: Denies threats or abuse. Denies injuries from another. Nutritional ca1 screening: No deficits noted. Tuberculosis screening: No symptoms or risk factors identified. Fall Risk Ambulatory Aid- Crutches/Cane/Walker (15 pts). Assessment: 19:00 General: Appears in no apparent distress. comfortable, Behavior is calm, cooperative, ca1 appropriate for age. Pain: Complains of pain in left foot Pain currently is 10 out of 10 on a pain scale. Neuro: Level of Consciousness is awake, alert, obeys commands, Oriented to person, place, time, situation, Appropriate for age. Cardiovascular: Heart tones S1 S2 present Capillary refill < 3 seconds Patient's skin is warm and dry. Respiratory: Airway is patent Respiratory effort is even, unlabored, Respiratory pattern is regular, symmetrical, Breath sounds are clear bilaterally. GI: Abdomen is round non-distended, obese, Bowel sounds present X 4 quads. Abd is soft and non tender X 4 quads. : No deficits noted. No signs and/or symptoms were reported regarding the genitourinary system. EENT: No deficits noted. No signs and/or symptoms were reported regarding the EENT system. Derm: Skin is intact, is healthy with good turgor, Skin is pink, warm \T\ dry. Musculoskeletal: Circulation, motion, and sensation intact. Capillary refill < 3 seconds, Range of motion: intact in all extremities. Vital Signs: 18:49 BP 106 / 72; Pulse 79; Resp 20 S; Temp 98.3(O); Pulse Ox 95% on 3 lpm NC; Weight 166.01 ca1 kg (R); Height 5 ft. 6 in. (167.64 cm) (R); Pain 10/10; 20:25 BP 115 / 78; Pulse 71; Resp 20; Pulse Ox 95% on 2 lpm NC; ca1 18:49 Body Mass Index 59.07 (166.01 kg, 167.64 cm) ca1 ED Course: 18:41 Patient arrived in ED. ca1 18:47 Triage completed. ca1 18:49 Arm band placed on right wrist. ca1 19:00 Patient has correct armband on for positive identification. Bed in low position. Call ca1 light in reach. Side rails up X2. Pulse ox on. NIBP on. Warm blanket given. 19:06 Ihsan Song MD is Attending Physician. rn 19:29 Nancy Kang RN is Primary Nurse. aj1 19:56 XRAY Ankle LEFT 3 view In Process Unspecified. EDMS 20:26 No provider procedures requiring assistance completed. Patient did not have IV access ca1 during this emergency room visit. Administered Medications: 19:30 Drug: Demerol 50 mg {Note: RASS score 1 patient is restless.} Route: IM; Site: right aj1 deltoid; Outcome: 20:08 Discharge ordered by . rn 20:26 Discharged to home via wheelchair. ca1 20:26 Condition: stable 20:26 Discharge instructions given to patient, Instructed on discharge instructions, follow up and referral plans. medication usage, Demonstrated understanding of instructions, follow-up care, medications, Prescriptions given X 1. 20:27 Patient left the ED. ca1 Signatures: Dispatcher [employer] EDMS Nancy Kang RN RN aj1 Ihsan Song MD MD rn Acob, Cheryl, RN RN ca1 Corrections: (The following items were deleted from the chart) 18:52 18:42 Presenting complaint: EMS states: Pt tripped on grand kid's toy and twisted L ca1 foot. Pt had L ankle surgery 3 months ago, never healed. 2 weeks ago, pt was on antibiotic for infection at the ankle. ca1
--- NOTE | 2019-01-24 20:10 | EDPHYS ---
Physician Documentation [facility] Name: Oleg Rosenberg Age: 48 yrs Sex: Female : 1970 Arrival Date: 01/24/2019 Time: 18:41 Bed 23 Private MD: ED Physician Ihsan Song HPI: 01/24 19:42 This 48 yrs old Female presents to ER via EMS with complaints of Ankle Injury.rn 19:42 The patient presents with decreased range of motion, an injury, pain. The complaints rn affect the left ankle. Onset: The symptoms/episode began/occurred just prior to arrival. Associated signs and symptoms: Pertinent negatives: rash, warmth, weakness. Modifying factors: The symptoms are alleviated by nothing, the symptoms are aggravated by weight bearing, movement, wearing shoes. Severity of symptoms: At their worst the symptoms were moderate, in the emergency department the symptoms are unchanged. The patient has experienced similar episodes in the past. Reports has broken this ankle before, s/p surgery, also recently completed abx for wound infection of ankle surgical sites. Reports tripped and rolled ankle over child's toy at home. No other injury. . TEST CARRIER: 18:49 LMP N/A - Hysterectomy ca1 Historical: - Allergies: 18:49 Dilaudid; ca1 18:49 Aspirin; ca1 18:49 Iodinated Contrast Media - IV Dye; ca1 18:49 Iodine; ca1 18:49 Morphine; ca1 18:49 Mucinex; ca1 18:49 NSAIDS; ca1 18:49 PENICILLINS; ca1 18:49 Zofran; ca1 - PMHx: 18:49 Asthma; Bipolar disorder; Bronchitis; COPD; Depression; kidney cancer; ca1 - PSHx: 18:49 Hysterectomy; ; Nephrectomy (L); L shoulder Sx; L ankle Sx; ca1 - Immunization history:: Adult Immunizations up to date. - Social history:: Smoking status: Patient uses tobacco products, smokes one-half pack cigarettes per day. - Ebola Screening: : Patient negative for fever greater than or equal to 101.5 degrees Fahrenheit, and additional compatible Ebola Virus Disease symptoms Patient denies exposure to infectious person Patient denies travel to an Ebola-affected area in the 21 days before illness onset No symptoms or risks identified at this time. - Family history:: not pertinent. - Hospitalizations: : No recent hospitalization is reported. ROS: 19:42 Constitutional: Negative for fever, chills, and weight loss, Eyes: Negative for injury, rn pain, redness, and discharge, Neck: Negative for injury, pain, and swelling, Cardiovascular: Negative for chest pain, palpitations, and edema, Respiratory: Negative for shortness of breath, cough, wheezing, and pleuritic chest pain, Abdomen/GI: Negative for abdominal pain, nausea, vomiting, diarrhea, and constipation, MS/Extremity: + right ankle injury and pain Skin: Negative for injury, rash, and discoloration, Neuro: Negative for headache, weakness, numbness, tingling, and seizure. Exam: 19:42 Constitutional: This is a well developed, well nourished patient who is awake, alert, rn appears to be in pain MS/ Extremity: Pulses equal, no cyanosis. + tenderness lateral malleolus, no swelling or deformity. No foot tenderness Vital Signs: 18:49 BP 106 / 72; Pulse 79; Resp 20 S; Temp 98.3(O); Pulse Ox 95% on 3 lpm NC; Weight 166.01 ca1 kg (R); Height 5 ft. 6 in. (167.64 cm) (R); Pain 10/10; 20:25 BP 115 / 78; Pulse 71; Resp 20; Pulse Ox 95% on 2 lpm NC; ca1 18:49 Body Mass Index 59.07 (166.01 kg, 167.64 cm) ca1 MDM: 19:06 Patient medically screened. rn 20:07 Differential diagnosis: fracture, sprain. Data reviewed: vital signs, nurses notes, rn radiologic studies, plain films, and as a result, I will discharge patient. Test interpretation: by ED physician or midlevel provider: plain radiologic studies, Xray left ankle negative for fracture/dislocation. Counseling: I had a detailed discussion with the patient and/or guardian regarding: the historical points, exam findings, and any diagnostic results supporting the discharge/admit diagnosis, radiology results, the need for outpatient follow up, to return to the emergency department if symptoms worsen or persist or if there are any questions or concerns that arise at home. Special discussion: I discussed with the patient/guardian in detail that at this point there is no indication for admission to the hospital. It is understood, however, that if the symptoms persist or worsen the patient needs to return immediately for re-evaluation. 01/24 18:51 Order name: XRAY Ankle LEFT 3 view; Complete Time: 20:09 ca1 Administered Medications: 19:30 Drug: Demerol 50 mg {Note: RASS score 1 patient is restless.} Route: IM; Site: right aj1 deltoid; Disposition: 01/24/19 20:08 Discharged to Home. Impression: Sprain of ankle. - Condition is Stable. - Discharge Instructions: Ankle Sprain. - Prescriptions for Tramadol 50 mg Oral Tablet - take 1 tablet by ORAL route every 8 hours as needed; 15 tablet. - Medication Reconciliation Form, Thank You Letter, Antibiotic Education, Prescription Opioid Use form. - Follow up: Private Physician; When: As needed; Reason: Recheck today's complaints, Re-evaluation by your physician. - Problem is new. - Symptoms have improved. Signatures: Dispatcher [employer] EDNancy Rene RN RN aj1 Ihsan Song MD MD rn Acob, HARDIK Valero RN ca1 Corrections: (The following items were deleted from the chart) 20:27 20:08 01/24/2019 20:08 Discharged to Home. Impression: Sprain of ankle. Condition is ca1 Stable. Forms are Medication Reconciliation Form, Thank You Letter, Antibiotic Education, Prescription Opioid Use. Follow up: Private Physician; When: As needed; Reason: Recheck today's complaints, Re-evaluation by your physician. Problem is new. Symptoms have improved. rn
[2019-01-24 21:16] VITALS: TEMP 98.3; O2SAT 95
[2019-01-24 21:18] VITALS: BP 115/78
== END 2019-01-24 20:27 | disposition home or self-care (01) ==
LOC: ER 18:37
DX: S93.402A Sprain of unspecified ligament of left ankle, initial encounter (principal); F17.210 Nicotine dependence, cigarettes, uncomplicated; W01.0XXA Fall on same level from slipping, tripping and stumbling without subsequent striking against object, initial encounter; Y93.9 Activity, unspecified; Y92.9 Unspecified place or not applicable; Z88.6 Allergy status to analgesic agent; Z91.09 Other allergy status, other than to drugs and biological substances; Z88.0 Allergy status to penicillin
CPT/HCPCS: 73610; 96372; 99284; J2175

== ENCOUNTER 2019-02-21 10:29 | Observation (INO) | payer OTHER ==
[2019-02-21] MEDS ORDERED: IPRATROPIUM BROM 0.5MG/2.5ML ONE ×3 (10:31→13:12)
[2019-02-21] MEDS ORDERED: ALBUTEROL 2.5 MG/3 ML NEB SOL ONE ×2 (10:31→11:59)
[2019-02-21] MEDS ORDERED: Magnesium Sulfate 2gm IVPB 2 G/50 ML BAG IV ONE (10:46)
[2019-02-21] MEDS ORDERED: dexAMETHasone 10 MG/ML VIAL ONE (10:46)
[2019-02-21] MEDS ORDERED: FENTANYL CITR 100 MCG/2 ML ONE ×2 (11:11→12:29)
[2019-02-21 11:12] LABS: Protime INR 0.94
[2019-02-21 11:24] LABS: Absolute Lymphocytes (CBC) 0.9 K/uL (0.7-4.9); Basophils % 0.6 % (0-1.3); Lymphocytes % 20.3 % (15.3-44.8); MPV 8.9 fL (7.6-11.3); RBC Red Blood Cell Count 3.94 M/uL (3.86-4.86)
--- NOTE | 2019-02-21 11:48 | RAD REPORT ---
EXAM DESCRIPTION: Andriy Single View02/21/2019 11:24 am CLINICAL HISTORY: sob COMPARISON: October 2018 FINDINGS: The lungs appear clear of acute infiltrate. The heart is moderately enlarged Moderate hiatal hernia IMPRESSION: No acute abnormalities displayed
--- NOTE | 2019-02-21 12:09 | EKG ---
Test Date: 2019-02-21 Test Time: 10:29:08 Benefits Administrator: ALFRED MEASUREMENT RESULTS: Intervals: Rate: 63 WY: 144 QRSD: 80 QT: 406 QTc: 415 Dolores: P: 39 WY: 144 QRS: 7 T: 36 INTERPRETIVE STATEMENTS: Normal sinus rhythm Normal ECG Compared to ECG 10/12/2018 17:39:46 Sinus arrhythmia no longer present T-wave abnormality no longer present Possible ischemia no longer present Electronically Signed On 02-21-19 12:08:42 CDT by Mahendra Howard
--- NOTE | 2019-02-21 12:21 | ER ---
Nurse's Notes [facility] Name: Oleg Rosenberg Age: 48 yrs Sex: Female : 1970 Arrival Date: 02/21/2019 Time: 10:32 Bed 7 Private MD: Diagnosis: Acute Shortness of Breath;COPD Exacerbation Presentation: 02/21 10:35 Presenting complaint: Presenting complaint: EMS states: SOB x 3 days, increased today. sv Pt wears O2 \\T\\ 4L per NC at home, did her Albuterol inhaler before EMS arrival. BP 126/97 HR-61 95% 4L per NC. 10:35 Acuity: AAYUSH 2 sv 10:35 Transition of care: patient was not received from another setting of care. Onset of sv symptoms was February 19, 2019. Risk Assessment: Do you want to hurt yourself or someone else? Patient reports no desire to harm self or others. Initial Sepsis Screen: Does the patient meet any 2 criteria? RR > 20 per min. No. Patient's initial sepsis screen is negative. Does the patient have a suspected source of infection? No. Patient's initial sepsis screen is negative. Care prior to arrival: Oxygen administered. via nasal cannula. 10:35 Method Of Arrival: EMS: [facility] sv Triage Assessment: 10:35 General: Appears in no apparent distress. uncomfortable, obese, Behavior is calm, sv cooperative, appropriate for age. Pain: Complains of pain in "ribs". Neuro: Level of Consciousness is awake, alert, obeys commands, Oriented to person, place, time, situation, Moves all extremities. Full function Gait is steady. Respiratory: Reports shortness of breath at rest on exertion labored breathing pain with cough Airway is patent Respiratory effort is even, labored, Respiratory pattern is symmetrical, tachypnea Breath sounds with wheezes bilaterally. Onset: The symptoms/episode began/occurred 3 days ago, the patient has moderate shortness of breath. Derm: Skin is pink, warm \\T\\ dry. Historical: - Allergies: 12:42 Aspirin; dm5 12:42 Dilaudid; dm5 12:42 Iodinated Contrast Media - IV Dye; dm5 12:42 Iodine; dm5 12:42 Morphine; dm5 12:42 Mucinex; dm5 12:42 NSAIDS; dm5 12:42 PENICILLINS; dm5 12:42 Zofran; dm5 - PMHx: 12:42 Asthma; Bipolar disorder; Bronchitis; COPD; Depression; kidney cancer; dm5 - Immunization history:: Adult Immunizations up to date. - Social history:: Smoking status: Patient uses tobacco products, smokes one-half pack cigarettes per day. - Family history:: not pertinent. - Ebola Screening: : No symptoms or risks identified at this time. - Hospitalizations: : No recent hospitalization is reported. Screenin:25 Abuse screen: Denies threats or abuse. Denies injuries from another. Nutritional jl7 screening: No deficits noted. Tuberculosis screening: No symptoms or risk factors identified. Fall Risk IV access (20 points). Ambulatory Aid- Crutches/Cane/Walker (15 pts). Total Mark Fall Scale indicates High Risk Score (45 or more points). Fall prevention measures have been instituted. Side Rails Up X 2 1:1 Attendant Assigned Frequent Obs/Assessments Occuring As available patient and family educated on Fall Prevention Program and Strategies. Assessment: 11:05 Reassessment: Patient appears in no apparent distress at this time. Patient and/or sv family updated on plan of care and expected duration. Pain level reassessed. Pt reports mild improvement with her breathing. 12:20 Reassessment: Pt reports increased pain, rated 9/10, requesting more pain medication, jl7 Dr. Goldsmith notified, see MAR for orders. 12:55 Reassessment: Pt reports increased pain, requesting more pain medication, pain rated jl7 9/10, DR. Goldsmith notified, see MAR for orders. 13:20 Reassessment: Patient appears in no apparent distress at this time. Patient and/or sv family updated on plan of care and expected duration. Pain level reassessed. Patient is alert, oriented x 3, equal unlabored respirations, skin warm/dry/pink. Pt assisted to the bathroom via wheelchair. 13:30 Reassessment: Nurse to unable to take report, will call back. sv 14:20 Reassessment: Nurse unable to take report, will call back. sv 14:30 Reassessment: Patient appears in no apparent distress at this time. Patient and/or sv family updated on plan of care and expected duration. Pain level reassessed. Patient is alert, oriented x 3, equal unlabored respirations, skin warm/dry/pink. Pt assisted to the bathroom via wheelchair. Vital Signs: 10:28 BP 133 / 85; Pulse 81; Resp 32; Temp 97.7; Pulse Ox 87% on 4 lpm NC; sv 11:30 BP 105 / 86; Pulse 53; Resp 28; Pulse Ox 88% on 4 lpm NC; sv 11:45 Pain 6/10; sv 12:30 BP 127 / 99; Pulse 56; Resp 26; Pulse Ox 90% on 4 lpm NC; sv 13:00 BP 125 / 98; Pulse 55; Resp 25; Pulse Ox 88% on 4 lpm NC; sv 13:30 BP 120 / 85; Pulse 54; Resp 26; Pulse Ox 89% on 4 lpm NC; sv 14:30 BP 122 / 88; Pulse 56; Resp 24; Pulse Ox 90% on 4 lpm NC; sv ED Course: 10:32 Patient arrived in ED. sv 10:33 Nicola Goldsmith MD is Attending Physician. wa 10:34 Nancy Mckeon RN is Primary Nurse. sv 10:45 EKG done, by avionics systems technician. reviewed by Nicola Goldsmith MD. at1 10:45 Arm band placed on. sv 10:50 Inserted saline lock: 22 gauge in left forearm, using aseptic technique. ,using aseptic sv technique. diffusics Blood collected. Flushed left forearm with 5 ml normal saline. 11:24 XRAY CXR (1 view) In Process Unspecified. EDMS 11:27 Triage completed. sv 12:20 Sandie Cerda MD is Hospitalizing Provider. wa 13:25 Patient has correct armband on for positive identification. Placed in gown. Bed in low jl7 position. Call light in reach. Side rails up X 1. Pulse ox on. NIBP on. Warm blanket given. 14:55 No provider procedures requiring assistance completed. Patient admitted, IV remains in sv place. intact. Administered Medications: 10:30 Drug: Albuterol - atroVENT (3:1) (2.5 mg - 0.5 mg) 3 ml Route: Nebulizer; sv 11:00 Follow up: Response: No adverse reaction sv 11:17 Drug: fentaNYL (PF) 75 mcg Route: IVP; Site: left forearm; sv 11:45 Follow up: Pain 6/10 Adult; Response: No adverse reaction; Pain is decreased; RASS: sv Alert and Calm (0) 12:03 Drug: AtroVENT Aerosol 0.5 mg Route: Inhalation; jl7 12:03 Drug: Albuterol 2.5 mg Route: Inhalation; jl7 12:35 Drug: fentaNYL (PF) 75 mcg {Note: RASS 0.} Route: IVP; Site: left forearm; dm5 13:00 Follow up: Response: No adverse reaction; Pain is unchanged, physician notified; RASS: sv Restless (+1) 12:41 CANCELLED (pt allergic): Aspirin Chewable Tablet 324 mg PO once; 81 mg tablets x 4 dm5 13:31 Drug: Tylenol 1000 mg Route: PO; sv 14:00 Follow up: Response: No adverse reaction sv Outcome: 12:21 Decision to Hospitalize by Provider. wa 14:55 Admitted to Tele accompanied by tech, via wheelchair, room 209, with oxygen, with sv chart, Report called to Kevin Monge RN 14:55 Condition: stable 14:55 Instructed on the need for admit. 15:10 Patient left the ED. sv Signatures: Dispatcher [employer] EDMS Kanwal Mora RN RN dmNancy Angelo RN RN Lynn Zendejas, mold loft worker EKG Tat1 Sofiya Friedman RN RN jl7 Nicola Goldsmith MD MD wa Corrections: (The following items were deleted from the chart) 13:36 10:35 Presenting complaint: sv sv 15:28 10:35 Respiratory: Reports shortness of breath at rest on exertion labored breathing sv pain with cough Airway is patent Respiratory effort is even, labored, Respiratory pattern is symmetrical, tachypnea Onset: The symptoms/episode began/occurred 3 days ago, the patient has moderate shortness of breath sv
--- NOTE | 2019-02-21 12:21 | EDPHYS ---
Physician Documentation [facility] Name: Oleg Rosenberg Age: 48 yrs Sex: Female : 1970 Arrival Date: 02/21/2019 Time: 10:32 Bed 7 Private MD: ED Physician Nicola Goldsmith HPI: 02/21 11:16 This 48 yrs old Female presents to ER via Unassigned with complaints of wa Shortness Of Breath. 11:16 The patient has shortness of breath at rest. Onset: The symptoms/episode began/occurred wa acutely. Duration: The symptoms are continuous, and are steadily getting worse. The patient's shortness of breath is aggravated by coughing, exertion, is alleviated by nothing. Associated signs and symptoms: Pertinent positives: non-productive cough, Pertinent negatives: fever. Severity of symptoms: At their worst the symptoms were severe in the emergency department the symptoms are worse moderately. The patient has experienced similar episodes in the past, multiple times. The patient has not recently seen a physician. c/o SOB. diffuse chest discomfort. chest congestion. Historical: - Allergies: 12:42 Aspirin; dm5 12:42 Dilaudid; dm5 12:42 Iodinated Contrast Media - IV Dye; dm5 12:42 Iodine; dm5 12:42 Morphine; dm5 12:42 Mucinex; dm5 12:42 NSAIDS; dm5 12:42 PENICILLINS; dm5 12:42 Zofran; dm5 - PMHx: 12:42 Asthma; Bipolar disorder; Bronchitis; COPD; Depression; kidney cancer; dm5 - Immunization history:: Adult Immunizations up to date. - Social history:: Smoking status: Patient uses tobacco products, smokes one-half pack cigarettes per day. - Family history:: not pertinent. - Ebola Screening: : No symptoms or risks identified at this time. - Hospitalizations: : No recent hospitalization is reported. ROS: 11:22 Constitutional: Negative for fever, chills, and weight loss, Eyes: Negative for injury, wa pain, redness, and discharge, ENT: Negative for injury, pain, and discharge, Neck: Negative for injury, pain, and swelling, Abdomen/GI: Negative for abdominal pain, nausea, vomiting, diarrhea, and constipation, Back: Negative for injury and pain, : Negative for injury, bleeding, discharge, and swelling, MS/Extremity: Negative for injury and deformity, Skin: Negative for injury, rash, and discoloration, Neuro: Negative for headache, weakness, numbness, tingling, and seizure, Psych: Negative for depression, anxiety, suicide ideation, homicidal ideation, and hallucinations. 11:22 Cardiovascular: Positive for chest pain, with cough, Negative for edema, palpitations. 11:22 Respiratory: Positive for cough, with no reported sputum, shortness of breath, wheezing. Exam: 11:23 Head/Face: Normocephalic, atraumatic. Eyes: Pupils equal round and reactive to light, wa extra-ocular motions intact. Lids and lashes normal. Conjunctiva and sclera are non-icteric and not injected. Cornea within normal limits. Periorbital areas with no swelling, redness, or edema. ENT: Nares patent. No nasal discharge, no septal abnormalities noted. Tympanic membranes are normal and external auditory canals are clear. Oropharynx with no redness, swelling, or masses, exudates, or evidence of obstruction, uvula midline. Mucous membranes moist. Neck: Trachea midline, no thyromegaly or masses palpated, and no cervical lymphadenopathy. Supple, full range of motion without nuchal rigidity, or vertebral point tenderness. No Meningismus. Chest/axilla: Normal chest wall appearance and motion. Nontender with no deformity. No lesions are appreciated. Abdomen/GI: Soft, non-tender, with normal bowel sounds. No distension or tympany. No guarding or rebound. No evidence of tenderness throughout. Back: No spinal tenderness. No costovertebral tenderness. Full range of motion. Skin: Warm, dry with normal turgor. Normal color with no rashes, no lesions, and no evidence of cellulitis. MS/ Extremity: Pulses equal, no cyanosis. Neurovascular intact. Full, normal range of motion. Neuro: Awake and alert, GCS 15, oriented to person, place, time, and situation. Cranial nerves II-XII grossly intact. Motor strength 5/5 in all extremities. Sensory grossly intact. Cerebellar exam normal. Normal gait. :23 Cardiovascular: Rate: tachycardic, Rhythm: irregular, Pulses: no pulse deficits are appreciated, Heart sounds: normal. 11:23 Respiratory: mild respiratory distress is noted, Respirations: tachypnea, Breath sounds: wheezing: inspiratory expiratory is heard diffusely, Respiratory rate: tachypnea Vital Signs: 10:28 BP 133 / 85; Pulse 81; Resp 32; Temp 97.7; Pulse Ox 87% on 4 lpm NC; sv 11:30 BP 105 / 86; Pulse 53; Resp 28; Pulse Ox 88% on 4 lpm NC; sv 11:45 Pain 6/10; sv 12:30 BP 127 / 99; Pulse 56; Resp 26; Pulse Ox 90% on 4 lpm NC; sv 13:00 BP 125 / 98; Pulse 55; Resp 25; Pulse Ox 88% on 4 lpm NC; sv 13:30 BP 120 / 85; Pulse 54; Resp 26; Pulse Ox 89% on 4 lpm NC; sv 14:30 BP 122 / 88; Pulse 56; Resp 24; Pulse Ox 90% on 4 lpm NC; sv MDM: 10:33 Patient medically screened. 11:26 Differential diagnosis: asthma, Bronchitis CHF exacerbation, Chronic Obstructive wa Pulmonary Disease Myocardial Infarction pneumonia, pulmonary edema, reactive airway disease, Unstable Angina. 12:17 Data reviewed: vital signs, nurses notes, lab test result(s), EKG, radiologic studies. tx Test interpretation: by ED physician or midlevel provider: EKG: HR 63. sinus. low voltage. diffuse ST-T changes, non-specific. 12:18 Test interpretation: by ED physician or midlevel provider: CXR negative. 12:18 ED course: improving. will admit for COPD exacerbation. 12:29 Test interpretation: by ED physician or midlevel provider: labs noted essentially wnl.. 12:42 ED course: pt allergic to ASA. 02/21 10:44 Order name: BMP; Complete Time: 12:29 02/21 10:44 Order name: CBC with Diff; Complete Time: 14:31 02/21 10:44 Order name: CPK; Complete Time: 12:29 02/21 10:44 Order name: Hepatic Function; Complete Time: 12:29 02/21 10:44 Order name: Lipase; Complete Time: 12:29 02/21 10:44 Order name: NT PRO-BNP; Complete Time: 12:29 02/21 10:44 Order name: XRAY CXR (1 view); Complete Time: 11:52 02/21 10:44 Order name: PT-INR; Complete Time: 11:52 tx 02/21 10:44 Order name: Ptt, Activated; Complete Time: 11:52 tx 02/21 10:44 Order name: Troponin (emerg Dept Use Only); Complete Time: 12:29 tx 02/21 10:47 Order name: Flu; Complete Time: 11:52 tx 02/21 14:09 Order name: CBC Smear Scan; Complete Time: 14:31 EDMS 02/21 10:44 Order name: EKG; Complete Time: 10:45 tx 02/21 10:44 Order name: Cardiac monitoring; Complete Time: 13:44 tx 02/21 10:44 Order name: EKG - Nurse/Tech; Complete Time: 11:17 tx 02/21 10:44 Order name: IV Saline Lock; Complete Time: 11: tx 02/21 10:44 Order name: Labs collected and sent; Complete Time: 11:17 tx 02/21 10:44 Order name: O2 Per Protocol; Complete Time: 11:17 tx 02/21 10:44 Order name: O2 Sat Monitoring; Complete Time: 11: tx 02/21 11:10 Order name: Labs - recollect needed; Complete Time: 11:50 bd Administered Medications: 10:30 Drug: Albuterol - atroVENT (3:1) (2.5 mg - 0.5 mg) 3 ml Route: Nebulizer; sv 11:00 Follow up: Response: No adverse reaction sv 11:17 Drug: fentaNYL (PF) 75 mcg Route: IVP; Site: left forearm; sv 11:45 Follow up: Pain 6/10 Adult; Response: No adverse reaction; Pain is decreased; RASS: sv Alert and Calm (0) 12:03 Drug: AtroVENT Aerosol 0.5 mg Route: Inhalation; jl7 12:03 Drug: Albuterol 2.5 mg Route: Inhalation; jl7 12:35 Drug: fentaNYL (PF) 75 mcg {Note: RASS 0.} Route: IVP; Site: left forearm; dm5 13:00 Follow up: Response: No adverse reaction; Pain is unchanged, physician notified; RASS: sv Restless (+1) 12:41 CANCELLED (pt allergic): Aspirin Chewable Tablet 324 mg PO once; 81 mg tablets x 4 dm5 13:31 Drug: Tylenol 1000 mg Route: PO; sv 14:00 Follow up: Response: No adverse reaction sv Disposition: 02/21/19 12:21 Hospitalization ordered by Sandie Cerda for Observation. Preliminary diagnosis are Acute Shortness of Breath, COPD Exacerbation. - Bed requested for Telemetry/MedSurg (observation). - Status is Observation. sv - Condition is Stable. - Problem is an acute exacerbation. - Symptoms have improved. UTI on Admission? No Signatures: Dispatcher [employer] EDMS EthanBrit sanchez Kanwal Coker RN RN dm5 Nancy Mckeon, RN RN sv Sofiya Friedman, HARDIK RN jl7 Nicola Goldsmith MD MD tx Corrections: (The following items were deleted from the chart) 12:41 12:30 Aspirin Chewable Tablet 324 mg PO once; 81 mg tablets x 4 ordered. tx dm5 13:12 12:21 Hospitalization Ordered by Sandie Cerda MD for Observation. Preliminary bd diagnosis is Acute Shortness of Breath; COPD Exacerbation. Bed requested for Telemetry/MedSurg (observation). Status is Observation. Condition is Stable. Problem is an acute exacerbation. Symptoms have improved. UTI on Admission? No. tx 15:10 13:12 02/21/2019 12:21 Hospitalization Ordered by Sandie Cerda MD for Observation. sv Preliminary diagnosis is Acute Shortness of Breath; COPD Exacerbation. Bed requested for Telemetry/MedSurg (observation). Status is Observation. Condition is Stable. Problem is an acute exacerbation. Symptoms have improved. UTI on Admission? No. bd
[2019-02-21 12:26] LABS: ALT/SGPT 13 U/L (12-78); AST/SGOT 7 U/L (15-37); Alkaline Phosphatase 100 U/L (45-117); BUN Blood Urea Nitrogen 7 mg/dL (7-18); Bicarbonate 35 mmol/L (21-32); Bilirubin Direct < 0.1 mg/dL (0-0.2); Bilirubin Total 0.2 mg/dL (0.2-1.0); Creatine Phosphokinase 27 U/L (26-192); Glucose Level 96 mg/dL (74-106); Lipase 38 U/L (73-393); NT PRO-BNP 187 pg/mL (<125); Potassium 4.6 mmol/L (3.5-5.1); Protein, Total 6.3 g/dL (6.4-8.2); Sodium Level 141 mmol/L (136-145); Troponin (Emerg Dept Use Only) < 0.02 ng/mL (0.0-0.045)
[2019-02-21] MEDS ORDERED: ALBUTEROL 2.5 MG/3 ML NEB SOL NEB PRN ×2 (12:32→16:00)
[2019-02-21] MEDS ORDERED: ACETAMINOPHEN 500 MG TAB ONE (13:31)
[2019-02-21] MEDS ORDERED: IPRATROPIUM BROM 0.5MG/2.5ML NEB SCH (14:00)
[2019-02-21 14:09] LABS: Blood Morphology Comment NOT SEEN (NOT SEEN); Platelet Estimate ADEQ; Urine White Blood Cell Casts OK
[2019-02-21] MEDS ORDERED: ONDANSETRON 4 MG/2 ML VIAL IV PRN (15:02)
[2019-02-21 15:17] VITALS: BMI 60.5
[2019-02-21 15:22] VITALS: BP 122/88
[2019-02-21 15:30] VITALS: O2SAT 89
--- NOTE | 2019-02-21 15:48 | P.SSS ---
Patient History Date of Service: 02/21/19 Primary Care Provider: RUBY Reason for admission: SOB History of Present Illness: This is a 48 years old woman h/o of HTN, Obesity, Chronic Respiratory Failure 2.2 to COPD, BLANCA and asthma who is on home oxygen 4L by [place], who start yesterday with progressive SOB associated with productive cough with yellowish secretions. She decided to come to the ER for further Workup and treatment. She has not been using her inhaler as she should. She also has been having a lot of allergies lately. Denies having fever, Chills, N or V. In the ER patient was given neb treatment and admitted for further care. Allergies aspirin Allergy (Severe, Verified 10/20/18 15:03) Anaphylaxis guaifenesin [From Mucinex] Allergy (Severe, Verified 10/20/18 15:03) Anaphylaxis hydromorphone HCl [From Dilaudid] Allergy (Severe, Verified 10/20/18 15:03) Anaphylaxis morphine Allergy (Severe, Verified 10/20/18 15:03) Anaphylaxis NSAIDS (Non-Steroidal Anti-Inflamma Allergy (Severe, Verified 10/20/18 15:03) Hives Penicillins Allergy (Severe, Verified 10/20/18 15:03) Anaphylaxis Iodinated Contrast Media [Iodinated Contrast Media - IV Dye] Allergy (Verified 10/20/18 15:03) Anaphylaxis ondansetron [From Zofran] Allergy (Verified 10/20/18 15:03) Itching Home Medications: Albuterol Sulfate [Proair Hfa] 1 puff IH Q4H PRN 10/12/18 Benztropine Mesylate [Cogentin*] 1 mg PO TID 10/12/18 Carbamazepine [Equetro] 300 mg PO TID 10/12/18 Diazepam [Valium] 5 mg PO QID PRN 10/12/18 Omeprazole [Prilosec] 40 mg PO DAILY 10/12/18 Risperidone [Risperdal] 2 mg PO TID 10/12/18 Zolpidem Tartrate [Ambien*] 5 mg PO BEDTIME PRN PRN 10/12/18 Ergocalciferol (Vitamin D2) [Vitamin D 50,000 Unit Cap] 50,000 unit PO SEECOM Tizanidine HCl 4 mg PO TID 10/20/18 Hydrocodone 7.5/APAP 325 [Miller 7.5/325 mg*] 1 tab PO Q4H PRN #40 tab 10/26/18 Azithromycin Tab [Zithromax*] 250 mg PO ZPAK #1 paramjit 02/21/19 - Past Medical/Surgical History Has patient received pneumonia vaccine in the past: No Diabetic: No -: COPD -: Sleep apnea -: asthma -: smoker -: chronic back pain -: kidney cancer -: Suspect obstructive sleep apnea -: Diaphragmatic hernia -: GERD -: Former smoker -: Left nephrectomy -: Hysterectomy -: right lower leg I and D -: Lap band/and reversal -: -: I&D to the abdomen superficially -: left shoulder sx Psychosocial/ Personal History: , one child, disabled. - Family History Father -: Heart disease, Hypertension, Cancer, Liver disease Notes: liver CA, cirrhosis Mother -: Lung disease Notes: copd , of morbid obesity Brother -: Hypertension Sister -: Lung disease, GI disease, Diabetes - Social History Smoking Status: Current every day smoker Alcohol use: No CD- Drugs: No Caffeine use: No Place of Residence: Home Review of Systems 10-point ROS is otherwise unremarkable Physical Examination - Vital Signs Blood Pressure: 122/88 Pulse: 56 Respirations: 24 - Physical Exam General: Alert, In no apparent distress, Obese HEENT: Atraumatic, PERRLA, Mucous membr. moist/pink, EOMI, Sclerae nonicteric Neck: Supple, 2+ carotid pulse no bruit, No LAD, Without JVD or thyroid abnormality Respiratory: Normal air movement, Expiratory wheezes, Inspiratory wheezes Cardiovascular: Regular rate/rhythm, Normal S1 S2 Gastrointestinal: Normal bowel sounds, No tenderness Musculoskeletal: No tenderness Integumentary: No rashes Neurological: Normal speech, Normal strength at 5/5 x4 extr, Normal tone Lymphatics: No axilla or inguinal lymphadenopathy - Studies Laboratory Data (last 24 hrs) 02/21/19 11:48: Sodium 141, Potassium 4.6, BUN 7, Creatinine 0.56, Glucose 96, Total Bilirubin 0.2, AST 7 L, ALT 13, Alkaline Phosphatase 100, Lipase 38 L 02/21/19 10:50: PT 11.1, INR 0.94, APTT 19.3 L 02/21/19 10:50: WBC 4.6, Hgb 11.8 L, Hct 36.0, Plt Count 156 Microbiology Data (last 24 hrs): 02/21/19 10:55 Nasopharnyx Influenza Type A Antigen Screen - Final 02/21/19 10:55 Nasopharnyx Influenza Type B Antigen Screen - Final - Diagnosis (Problem(s)) (1) COPD exacerbation Onset Date: 09/25/15 Current Visit: No Status: Acute Plan: Pt with COPD exacerbation due to noncomplaince with meds -Flu test negative. Was given Breathing treatment in ER. Now on 3L sat 96%. Feeling much better and observed for over 8 hrs. Will DC at this time with ppx of azithromycin. F.u with Pulmonology and continue using neb q6h for next 24hrs at home and inhalers as well (2) Chronic respiratory failure Current Visit: No Status: Chronic Qualifiers: Respiratory failure complication: hypoxia and hypercapnia (3) Bipolar 1 disorder Onset Date: 10/23/16 Current Visit: No Status: Chronic (4) GERD (gastroesophageal reflux disease) Current Visit: No Status: Chronic Qualifiers: (5) History of renal cell carcinoma Current Visit: No Status: Chronic (6) Morbid obesity Onset Date: 10/23/16 Current Visit: No Status: Chronic (7) Obstructive sleep apnea Onset Date: 10/23/16 Current Visit: No Status: Suspected - Disposition Disposition: ROUTINE DISCHARGE Condition: GOOD Diet: Regular Activity: Ad andriy
[2019-02-21] MEDS ORDERED: INSULIN -REGULAR HUMAN 50 UNIT/0.5 ML ML SQ SCH (16:30)
--- OUTSIDE RECORDS SUMMARY | 2019-03-12 06:22 | XMS REPORT ---
:1970 [facility] [address] [place] [address] Care Team Providers Name Role Phone Unavailable Unavailable Unavailable Payers Payer Name Policy Type Policy Number Effective Date Expiration Date Problems This patient has no known problems. Allergies, Adverse Reactions, Alerts Allergy Name Allergy Status Severity Reaction(s) Onset Inactive Treating Comments Type Date Date Clinician Iodinated DA Active 2018-05 Contrast- Oral 05-03 and IV Dye 00:00: 00 NSAIDS DA Active 2018-05 (Non-Steroidal 05-03 Anti-Inflamma 00:00: 00 Penicillins DA Active 2018-05 00:00: 00 morphine DA Active 2018-05 00:00: 00 aspirin DA Active U 2018-05 00:00: 00 hydromorphone DA Active 2018-05 00:00: 00 shellfish FA Active 2018-05 derived 05-03 00:00: 00 No Known DA Active U 2008-0 Contrast 8-11 Allergies 00:00: 00 No Known Food DA Active U 2008-0 Allergies 8-11 00:00: 00 No Known Other DA Active U 2008-0 Allergies 8-11 00:00: 00 PENICILLIN DA Active U 2007-0 8-11 00:00: 00 penicillin G DA Active U 2003-0 5-06 00:00: 00 Medications This patient has no known medications. Results Test Description Test Time Test Comments Text Results Atomic Results Result Comments BASIC METABOLIC PANEL 2019-03-04 08:09:00 Test Item Value Reference Range Comments SODIUM (test code=NA) 140 mmol/L 134-147 POTASSIUM (test code=K) 4.1 mmol/L 3.4-5.0 CHLORIDE (test code=CL) 100 mmol/L 100-108 CARBON DIOXIDE (test code=CO2) 38 mmol/L 21-32 ANION GAP (test code=GAP) 2.0 GAP calc 4.0-15.0 GLUCOSE (test code=GLU) 89 MG/DL 70-110 BLOOD UREA NITROGEN (test code=BUN) 9 MG/DL 7-18 GLOMERULAR FILTRATION RATE (test code=GFR) >=60 max estimate estGFR >60 CREATININE (test code=CREAT) 0.6 MG/DL 0.6-1.0 CALCIUM (test code=CA) 8.9 MG/DL 8.5-10.1 VITAMIN D [id number] 08:09:00 Test Item Value Reference Range Comments VITAMIN D 25-HYDROXY (test 33.2 ng/mL 30.0-100.0 Vitamin D deficiency has been code=VITD25) defined by the [place] ofMedicine and an Endocrine Society practice guideline as alevel of serum 25-OH vitamin D less than 20 ng/mL (1,2).The Endocrine Society went on to further define vitamin Dinsufficiency as a level between 21 and 29 ng/mL (2).1. IOM ([place] of Medicine). 2010. Dietary reference intakes for calcium and D. [place]: The National Academies Press.2. Caitlin MF, Jerrell [place], Marely ROLLINS, et al. Evaluation, treatment, and prevention of vitamin D deficiency: an Endocrine Society clinical practice guideline. JCEM. 2010; 96(7):1911-30.Performed At: [facility] [address] [id number] Abilio Rosales MD Ph:[phone] CBC W/AUTO [id number] 13:29:00 Test Item Value Reference Range Comments WHITE BLOOD CELL (test code=WBC) 6.4 K/mm3 3.5-11.0 RED BLOOD CELL (test code=RBC) 4.36 M/mm3 4.70-6.10 HEMOGLOBIN (test code=HGB) 12.8 G/DL 10.4-14.9 HEMATOCRIT (test code=HCT) 42.6 % 31.5-44.1 MEAN CELL VOLUME (test code=MCV) 97.7 Fl 84.5-98.6 MEAN CELL HGB (test code=MCH) 29.4 pg 27.0-34.2 MEAN CELL HGB CONCETRATION (test code=MCHC) 30.0 G/DL 31.5-34.0 RED CELL DISTRIBUTION WIDTH (test code=RDW) 18.0 SD 11.5-14.5 PLATELET COUNT (test code=PLT) 212.0 K/mm3 150-450 MEAN PLATELET VOLUME (test code=MPV) 10.40 fL 7.0-10.5 NEUTROPHIL % (test code=NT%) 67.6 % 40-76 LYMPHOCYTE % (test code=LY%) 23.2 % 20.5-51.1 MONOCYTE % (test code=MO%) 7.4 % 1.7-9.3 EOSINOPHIL % (test code=EO%) 1.6 % 0.0-6.0 BASOPHIL % (test code=BA%) 0.2 % 0.0-2.0 NEUTROPHIL # (test code=NT#) 4.33 K/mm3 1.8-7.6 LYMPHOCYTE # (test code=LY#) 1.5 K/mm3 0.6-3.2 MONOCYTE # (test code=MO#) 0.5 K/mm3 0.3-1.1 EOSINOPHIL # (test code=EO#) 0.1 K/mm3 0.0-0.4 BASOPHIL # (test code=BA#) 0.0 K/mm3 0.0-0.1 MANUAL DIFF REQUIRED (test code=MDIFF) NO DIFF/SCN CRITERIA SED [id number] 13:29:00 Test Item Value Reference Range Comments SED RATE (test code=SEDW) 10 mm/hr 0-20 URINALYSIS [id number] 13:12:00 Test Item Value Reference Range Comments UA GLUCOSE DIPSTICK (test code=DGLUU) NEGATIVE mg/dL NEG UA BILIRUBIN DIPSTICK (test code=BILU) NEGATIVE mg/dL NEG UA KETONE DIPSTICK (test code=KETU) NEGATIVE mg/dL NEG UA SPECIFIC GRAVITY (test code=SGU) 1.010 SG 1.005-1.030 UA BLOOD DIPSTICK (test code=LUKASZ) NEGATIVE mg/DL NEG UA PH DIPSTICK (test code=GWEN) 7.5 pH UNITS 5.0-7.0 UA PROTEIN DIPSTICK (test code=PROU) NEGATIVE mg/dL NEG UA UROBILINIOGEN DIPSTICK (test code=URO) 0.2 mg/dL <2.0 UA NITRITE DIPSTICK (test code=RUTH ANN) NEGATIVE SCREEN NEG UA LEUKOCYTE ESTERASE DIPSTICK (test NEGATIVE Leuk/mcL NEGATIVE code=LEUU) Urine Specimen Type: Clean CatchC REACTIVE [id number] 12:47:00 Test Item Value Reference Range Comments C REACTIVE PROTEIN (test code=CRP) 1.260 MG/DL 0.000-0.3 BASIC METABOLIC [id number] 12:46:00 Test Item Value Reference Range Comments SODIUM (test code=NA) 140 mmol/L 134-147 POTASSIUM (test code=K) 4.1 mmol/L 3.4-5.0 CHLORIDE (test code=CL) 100 mmol/L 100-108 CARBON DIOXIDE (test code=CO2) 38 mmol/L 21-32 ANION GAP (test code=GAP) 2.0 GAP calc 4.0-15.0 GLUCOSE (test code=GLU) 89 MG/DL 70-110 BLOOD UREA NITROGEN (test code=BUN) 9 MG/DL 7-18 GLOMERULAR FILTRATION RATE (test >=60 max estimate estGFR >60 code=GFR) CREATININE (test code=CREAT) 0.6 MG/DL 0.6-1.0 CALCIUM (test code=CA) 8.9 MG/DL 8.5-10.1 VITAMIN D [id number] 12:46:00 Test Item Value Reference Range Comments VITAMIN D 25-HYDROXY (test code=VITD25) PROTHROMBIN [id number] 12:33:00 Test Item Value Reference Range Comments PT PATIENT (test code=PTP) 11.4 SECONDS 9.3-12.9 INTERNATIONAL NORMAL RATIO (test code=INR) 0.99 INR Unit 0.8-1.2 THROMBOPLASTIN TIME [id number] 12:33:00 Test Item Value Reference Range Comments THROMBOPLASTIN TIME PARTIAL (test code=PTT) 29.0 SECONDS 26-35 CBC W/AUTO [id number] 12:32:00 Test Item Value Reference Range Comments WHITE BLOOD CELL (test code=WBC) 6.4 K/mm3 3.5-11.0 RED BLOOD CELL (test code=RBC) 4.36 M/mm3 4.70-6.10 HEMOGLOBIN (test code=HGB) 12.8 G/DL 10.4-14.9 HEMATOCRIT (test code=HCT) 42.6 % 31.5-44.1 MEAN CELL VOLUME (test code=MCV) 97.7 Fl 84.5-98.6 MEAN CELL HGB (test code=MCH) 29.4 pg 27.0-34.2 MEAN CELL HGB CONCETRATION (test code=MCHC) 30.0 G/DL 31.5-34.0 RED CELL DISTRIBUTION WIDTH (test code=RDW) 18.0 SD 11.5-14.5 PLATELET COUNT (test code=PLT) 212.0 K/mm3 150-450 MEAN PLATELET VOLUME (test code=MPV) 10.40 fL 7.0-10.5 NEUTROPHIL % (test code=NT%) 67.6 % 40-76 LYMPHOCYTE % (test code=LY%) 23.2 % 20.5-51.1 MONOCYTE % (test code=MO%) 7.4 % 1.7-9.3 EOSINOPHIL % (test code=EO%) 1.6 % 0.0-6.0 BASOPHIL % (test code=BA%) 0.2 % 0.0-2.0 NEUTROPHIL # (test code=NT#) 4.33 K/mm3 1.8-7.6 LYMPHOCYTE # (test code=LY#) 1.5 K/mm3 0.6-3.2 MONOCYTE # (test code=MO#) 0.5 K/mm3 0.3-1.1 EOSINOPHIL # (test code=EO#) 0.1 K/mm3 0.0-0.4 BASOPHIL # (test code=BA#) 0.0 K/mm3 0.0-0.1 MANUAL DIFF REQUIRED (test code=MDIFF) NO DIFF/SCN CRITERIA SED [id number] 12:32:00 Test Item Value Reference Range Comments SED RATE (test code=SEDW) mm/hr 0-20 - XR CHEST 1 [id number] 12:00:00 Name: MARCELLE WEISS [facility] : 1970 Age/S: 49 / F [id number] Unit #: [id number] Loc: [place] [address] Phys: Abilio Maldonado MD Acct: [id number] Dis Date: Status: PRE SDC PHONE #: [phone] Exam Date: 03/03/2019 1152 FAX #: Reason: PRE OP EXAMS: CPT: [id number] XR CHEST 1 V [id number] Fluoro Time: DAP (Gy m2): Air Kerma (mGy): EXAM: XR Chest 1 View INDICATION: PRE OP LOCATION CODE: C3 COMPARISON: None available. TECHNIQUE: Frontal view of the chest was obtained. FINDINGS: The lungs are clear. There is no pleural effusion or pneumothorax. The cardiomediastinal silhouette is unremarkable. No acute osseous abnormality is identified. IMPRESSION: No acute cardiopulmonary abnormality. at 1200 Reported and signed by: Marlee Everett MD CC: Abilio Maldonado MD; Adele York MD PAGE 1 Signed Report Name : MARCELLE WEISS [facility] : Age/S: 49 / F [id number] [facility] Unit #: [id number] Loc: [place] [address] Phys: Abilio Maldonado MD Acct: [id number] Dis Date: Status: PRE [facility] #: [phone] Exam Date: 03/03/2019 1152 FAX #: Reason: PRE OP EXAMS: CPT: [id number] XR CHEST 1 V [id number] Fluoro Time: DAP (Gy m2): Air Kerma (mGy): <Continued> Technologist: Kevin Herrera, RT(R)(CT); Lisa Machuca, RT(R) Trnksb Date/Time: 03/03/2019 ( 1200) [id number] Orig Print D/T: S: 03/03/2019 (1206) PAGE 2 Signed Report
== END 2019-02-21 15:59 | disposition home or self-care (01) ==
LOC: ER 10:29 → ERHOLD 12:32 → 2ND 14:51
PROVIDERS: ADMIT Family Medicine; ATTEND Family Medicine
DX: J44.1 Chronic obstructive pulmonary disease with (acute) exacerbation (principal); J96.12 Chronic respiratory failure with hypercapnia; J96.11 Chronic respiratory failure with hypoxia; I10 Essential (primary) hypertension; K21.9 Gastro-esophageal reflux disease without esophagitis; F31.9 Bipolar disorder, unspecified; Z85.528 Personal history of other malignant neoplasm of kidney; E66.01 Morbid (severe) obesity due to excess calories; G47.33 Obstructive sleep apnea (adult) (pediatric); Z68.44 Body mass index [BMI] 60.0-69.9, adult; Z87.891 Personal history of nicotine dependence
CPT/HCPCS: 93005; 85025; 80048; 36415; 82550; 85610; 80076; 85730; 84484; 83690; 83880; 87804 ×2; 71045; 94640 ×2; 96374; 99285; J3010 ×2; J1100; J3475; G0378

== ENCOUNTER 2019-09-23 03:29 | Inpatient (IN) | payer OTHER ==
[2019-09-23] MEDS ORDERED: METHYLPREDNISOLONE 125 MG INJ ONE (04:22)
[2019-09-23] MEDS ORDERED: PROMETHAZINE INJ 25 MG/ML AMP ONE (04:22)
[2019-09-23] MEDS ORDERED: NA CHLORIDE 0.9% 2,000 ML ONE (04:23)
[2019-09-23] MEDS ORDERED: FENTANYL CITR 100 MCG/2 ML ONE (04:23)
[2019-09-23] MEDS ORDERED: FAMOTIDINE 20 MG/2 ML VIAL IV ONE (04:23)
[2019-09-23] MEDS ORDERED: NA CHLORIDE 0.9% 250 ML ONE (04:23)
[2019-09-23] MEDS ORDERED: AZITHROMYCIN 500 MG INJ IVPB ONE (04:23)
[2019-09-23] MEDS ORDERED: CEFTRIAXONE/SWI 1gm 2 GM/20 ML SYR ONE (04:24)
[2019-09-23] MEDS ORDERED: ALBUTEROL INHALER 60 PUFF/8 GM IH ONE (04:25)
[2019-09-23] MEDS ORDERED: ACETAMINOPHEN 325 MG TABLET ONE (04:32)
--- NOTE | 2019-09-23 04:52 | EDPHYS ---
Physician Documentation [facility] Name: Oleg Rosenberg Age: 49 yrs Sex: Female : 1970 Arrival Date: 09/23/2019 Time: 03:31 Bed 16 Private MD: JAMES Physician Abhi Mccall HPI: 09/22 03:51 This 49 yrs old Female presents to ER via EMS with complaints of Cough, Right marnie Rib Pain. 03:51 The patient or guardian reports airway noise, cough, difficulty breathing, flu marnie symptoms, low-grade fever, myalgias. Onset: The symptoms/episode began/occurred 5 day(s) ago. Severity of symptoms: At their worst the symptoms were mild, moderate, in the emergency department the symptoms are unchanged. Modifying factors: The symptoms are alleviated by cool environment, inhaler, albuterol, nebulizer treatment. Associated signs and symptoms: Pertinent positives: chest pain, rhinorrhea, sore throat. The patient has not experienced similar symptoms in the past. 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 N/A - Unknown Historical: - Allergies: 03:36 Aspirin; 03:36 Dilaudid; 03:36 Iodinated Contrast Media - IV Dye; 03:36 Iodine; 03:36 Morphine; 03:36 Mucinex; 03:36 NSAIDS; 03:36 PENICILLINS; 03:36 Zofran; - Home Meds: 03:55 Adderall XR 30 mg oral cp24 twice a day [Active]; tizanidine 4 mg oral cap twice a day lp1 [Active]; Ambien 10 mg Oral tab qhs prn for Sleep-Onset Insomnia [Active]; trazodone 100 mg Oral tab nightly [Active]; levalbuterol tartrate inhalation inhalation every 6 hours [Active]; Proventil Inhl every 6 hours [Active]; Breo Ellipta inhalation inhalation twice a day [Active]; Cogentin Oral 1 mg three times a day [Active]; Lyrica 150 mg Oral 2 times per day [Active]; Equetro 200 mg oral CM12 three times a day [Active]; Valium 5 mg Oral tab 1 tab 2 times per day [Active]; losartan 25 mg oral tab 1 tab once daily [Active]; Vraylar 3 mg oral cap 1 cap once daily [Active]; - PMHx: 03:36 Asthma; Bipolar disorder; Bronchitis; COPD; Depression; kidney cancer; wh - Immunization history:: Adult Immunizations up to date. - Social history:: Smoking status: Patient/guardian denies using tobacco. - Family history:: not pertinent. ROS: 03:51 Eyes: Negative for injury, pain, redness, and discharge, ENT: Negative for injury, marnie pain, and discharge, Neck: Negative for injury, pain, and swelling, Cardiovascular: Negative for chest pain, palpitations, and edema, Abdomen/GI: Negative for abdominal pain, nausea, vomiting, diarrhea, and constipation, Back: Negative for injury and pain, : Negative for injury, bleeding, discharge, and swelling, MS/Extremity: Negative for injury and deformity, Skin: Negative for injury, rash, and discoloration, Neuro: Negative for headache, weakness, numbness, tingling, and seizure, Psych: Negative for depression, anxiety, suicide ideation, homicidal ideation, and hallucinations, Allergy/Immunology: Negative for hives, rash, and allergies, Endocrine: Negative for neck swelling, polydipsia, polyuria, polyphagia, and marked weight changes, Hematologic/Lymphatic: Negative for swollen nodes, abnormal bleeding, and unusual bruising. 03:51 Constitutional: Positive for chills, fatigue, fever, malaise. 03:51 Respiratory: Positive for cough, hemoptysis, shortness of breath, wheezing, inspiratory, expiratory. Exam: 03:51 Constitutional: This is a well developed, well nourished patient who is awake, alert, marnie and in no acute distress. Head/Face: Normocephalic, atraumatic. Eyes: Pupils equal round and reactive to light, extra-ocular motions intact. Lids and lashes normal. Conjunctiva and sclera are non-icteric and not injected. Cornea within normal limits. Periorbital areas with no swelling, redness, or edema. ENT: Nares patent. No nasal discharge, no septal abnormalities noted. Tympanic membranes are normal and external auditory canals are clear. Oropharynx with no redness, swelling, or masses, exudates, or evidence of obstruction, uvula midline. Mucous membranes moist. Neck: Trachea midline, no thyromegaly or masses palpated, and no cervical lymphadenopathy. Supple, full range of motion without nuchal rigidity, or vertebral point tenderness. No Meningismus. Chest/axilla: Normal chest wall appearance and motion. Nontender with no deformity. No lesions are appreciated. Cardiovascular: Regular rate and rhythm with a normal S1 and S2. No gallops, murmurs, or rubs. Normal PMI, no JVD. No pulse deficits. Abdomen/GI: Soft, non-tender, with normal bowel sounds. No distension or tympany. No guarding or rebound. No evidence of tenderness throughout. Back: No spinal tenderness. No costovertebral tenderness. Full range of motion. Female : Normal external genitalia. Skin: Warm, dry with normal turgor. Normal color with no rashes, no lesions, and no evidence of cellulitis. MS/ Extremity: Pulses equal, no cyanosis. Neurovascular intact. Full, normal range of motion. Neuro: Awake and alert, GCS 15, oriented to person, place, time, and situation. Cranial nerves II-XII grossly intact. Motor strength 5/5 in all extremities. Sensory grossly intact. Cerebellar exam normal. Normal gait. 03:51 Respiratory: moderate respiratory distress is noted, Respirations: labored breathing, that is mild, Breath sounds: bronchial sounds, decreased breath sounds, rhonchi, wheezing: expiratory Respiratory rate: 24 Vital Signs: 03:46 BP 137 / 80; Pulse 102; Resp 24; Temp 99.2(TE); Pulse Ox 96% on 4 lpm NC; Weight 163.75 lp1 kg (R); Height 5 ft. 6 in. (167.64 cm); 05:00 BP 127 / 66; Pulse 91; Resp 22; Pulse Ox 99% 3 lpm ; wh 06:30 BP 121 / 68; Pulse 92; Resp 20; Pulse Ox 97% on 3 lpm NC; wh 03:46 Body Mass Index 58.27 (163.75 kg, 167.64 cm) lp1 MDM: 03:33 Patient medically screened. [facility] 03:54 Data reviewed: vital signs, nurses notes, EMS record, lab test result(s), EKG, marnie radiologic studies, plain films. Data interpreted: security monitor: rate is 102 beats/min, rhythm is normal sinus rhythm, Pulse oximetry: on 2L(s) per nasal canula, is 96 %. Test interpretation: by ED physician or midlevel provider: ECG, plain radiologic studies. Counseling: I had a detailed discussion with the patient and/or guardian regarding: the historical points, exam findings, and any diagnostic results supporting the discharge/admit diagnosis, the presence of at least one elevated blood pressure reading (>120/80) during this emergency department visit, lab results, radiology results, the need for further work-up and treatment in the hospital. Medication response: Phenergan markedly relieved the patient's nausea, fentanyl for pain. 05:53 ED course: ct chest wo dense right lower lobe consolidation, tree in bud opacities in marnie superior left lower . 09/22 03:49 Order name: Basic Metabolic Panel [facility] 09/22 03:49 Order name: CBC with Diff [facility] 09/22 03:49 Order name: LFT's [facility] 09/22 03:49 Order name: Magnesium [facility] 09/22 03:49 Order name: NT PRO-BNP [facility] 09/22 03:49 Order name: PT-INR [facility] 09/22 03:49 Order name: Troponin (emerg Dept Use Only); Complete Time: 06:21 [facility] 09/22 03:49 Order name: Blood Culture Adult (2) [facility] 09/22 03:49 Order name: Influenza Screen (a \T\ B); Complete Time: 06:21 [facility] 09/22 03:49 Order name: Lactate [facility] 09/22 03:49 Order name: Procalcitonin; Complete Time: 06:21 [facility] 09/22 03:50 Order name: Basic Metabolic Panel; Complete Time: 06:21 [facility] 09/22 03:50 Order name: CBC with Automated Diff [facility] 09/22 03:49 Order name: XRAY Chest (1 view) [facility] 09/22 03:50 Order name: Liver (Hepatic) Function; Complete Time: 06:21 [facility] 09/22 03:50 Order name: Magnesium; Complete Time: 06:21 [facility] 09/22 03:50 Order name: NT PRO-BNP; Complete Time: 06:21 [facility] 09/22 03:51 Order name: Lactate [facility] 09/22 05:36 Order name: Comprehensive Metabolic Panel [facility] 09/22 05:36 Order name: Comprehensive Metabolic Panel [facility] 09/22 05:36 Order name: Lactate [facility] 09/22 05:36 Order name: Lactate [facility] 09/22 05:36 Order name: Lipid Profile [facility] 09/22 05:36 Order name: Lipid Profile [facility] 09/22 05:36 Order name: Magnesium [facility] 09/22 05:36 Order name: Magnesium [facility] 09/22 05:36 Order name: Phosphorus [facility] 09/22 05:36 Order name: Procalcitonin [facility] 09/22 05:36 Order name: Procalcitonin [facility] 09/22 03:49 Order name: EKG; Complete Time: 03:51 [facility] 09/22 03:49 Order name: Cardiac monitoring; Complete Time: 06:14 [facility] 09/22 03:49 Order name: EKG - Nurse/Tech; Complete Time: 06:14 [facility] 09/22 03:49 Order name: IV Saline Lock; Complete Time: 06:14 [facility] 09/22 03:49 Order name: Labs collected and sent; Complete Time: 06:15 [facility] 09/22 03:49 Order name: O2 Per Protocol; Complete Time: 06:15 [facility] 09/22 03:49 Order name: O2 Sat Monitoring; Complete Time: 06:15 [facility] 09/22 04:30 Order name: CT Chest Wo Con [facility] 09/22 05:38 Order name: CONS Physician Consult [facility] 09/22 05:38 Order name: Regular [facility] Administered Medications: 05:30 Drug: Albuterol HFA Inhaler 4 puffs Route: Inhalation; 05:30 Drug: Tylenol 650 mg Route: PO; 06:29 Follow up: Response: No adverse reaction 06:00 Drug: fentaNYL (PF) 25 mcg Route: IVP; Site: right upper arm; 06:28 Follow up: Response: No adverse reaction; RASS: Alert and Calm (0) 06:00 Drug: NS 0.9% 1000 ml Route: IV; Rate: 1 bolus; Site: right upper arm; 06:30 Follow up: Response: No adverse reaction; IV Status: Completed infusion 06:00 Drug: NS 0.9% 1000 ml Route: IV; Rate: 1 bolus; Site: right upper arm; 06:30 Follow up: Response: No adverse reaction; IV Status: Infusion continued upon admission 06:02 Drug: Phenergan 12.5 mg Route: IVP; Site: right upper arm; 06:30 Follow up: Response: No adverse reaction; Nausea is decreased 06:04 Drug: Pepcid 20 mg Route: IVP; Site: right upper arm; 06:30 Follow up: Response: No adverse reaction 06:05 Drug: Rocephin 2 grams Route: IV; Rate: per protocol; Site: right upper arm; 06:29 Follow up: Response: No adverse reaction; IV Status: Completed infusion 06:10 Drug: Zithromax 500 mg Route: IVPB; Infused Over: 1 hrs; Site: right upper arm; 06:29 Follow up: Response: No adverse reaction; IV Status: Completed infusion 06:15 Drug: fentaNYL (PF) 25 mcg Route: IVP; Site: right upper arm; 06:30 Follow up: Response: No adverse reaction; RASS: Alert and Calm (0) 06:20 Drug: SOLU-Medrol 125 mg Route: IVP; Site: right upper arm; 06:29 Follow up: Response: No adverse reaction 07:00 Drug: Magnesium Sulfate 2 grams Route: IVPB; Infused Over: 2 hrs; Site: right upper arm; 07:18 Follow up: Response: No adverse reaction; IV Status: Infusion continued upon admission Disposition: 09/23/19 04:51 Hospitalization ordered by Rodrigo Ibanez for Inpatient Admission. Preliminary diagnosis are Hemoptysis, Pneumonia due to other specified bacteria - mass, Chronic obstructive pulmonary disease with (acute) exacerbation, Obesity, unspecified, Tobacco abuse counseling, Tobacco use, Congenital hiatus hernia - moderate, Hypomagnesemia. - Bed requested for Telemetry/MedSurg (Inpatient). - Status is Inpatient Admission. hb - Condition is Fair. - Problem is new. - Symptoms have improved. Signatures: Dispatcher [employer] EDMS Karol Narayan RN RN mw Anderson, Corey, MD MD cha Pena, Laura, RN RN lp1 Clarita Foreman RN RN Muna Daniel Corrections: (The following items were deleted from the chart) 05:50 04:51 Hospitalization Ordered by Rodrigo Ibanez MD for Inpatient Admission. Preliminary diagnosis is Hemoptysis; Pneumonia due to other specified bacteria - mass; Chronic obstructive pulmonary disease with (acute) exacerbation; Obesity, unspecified; Tobacco abuse counseling; Tobacco use. Bed requested for Telemetry/MedSurg (Inpatient). Status is Inpatient Admission. Condition is Fair. Problem is new. Symptoms have improved. marnie 05:55 05:50 09/23/2019 04:51 Hospitalization Ordered by Rodrigo Ibanez MD for Inpatient marnie Admission. Preliminary diagnosis is Hemoptysis; Pneumonia due to other specified bacteria - mass; Chronic obstructive pulmonary disease with (acute) exacerbation; Obesity, unspecified; Tobacco abuse counseling; Tobacco use. Bed requested for Telemetry/MedSurg (Inpatient). Status is Inpatient Admission. Condition is Fair. Problem is new. Symptoms have improved. 06:22 05:55 09/23/2019 04:51 Hospitalization Ordered by Rodrigo Ibanez MD for Inpatient marnie Admission. Preliminary diagnosis is Hemoptysis; Pneumonia due to other specified bacteria - mass; Chronic obstructive pulmonary disease with (acute) exacerbation; Obesity, unspecified; Tobacco abuse counseling; Tobacco use; Congenital hiatus hernia - moderate. Bed requested for Telemetry/MedSurg (Inpatient). Status is Inpatient Admission. Condition is Fair. Problem is new. Symptoms have improved. [facility] 07:03 06:22 09/23/2019 04:51 Hospitalization Ordered by Rodrigo Ibanez MD for Inpatient hb Admission. Preliminary diagnosis is Hemoptysis; Pneumonia due to other specified bacteria - mass; Chronic obstructive pulmonary disease with (acute) exacerbation; Obesity, unspecified; Tobacco abuse counseling; Tobacco use; Congenital hiatus hernia - moderate; Hypomagnesemia. Bed requested for Telemetry/MedSurg (Inpatient). Status is Inpatient Admission. Condition is Fair. Problem is new. Symptoms have improved. marnie
--- NOTE | 2019-09-23 04:52 | ER ---
Nurse's Notes [facility] Name: Oleg Rosenberg Age: 49 yrs Sex: Female : 1970 Arrival Date: 09/23/2019 Time: 03:31 Bed 16 Private MD: Diagnosis: Hemoptysis;Pneumonia due to other specified bacteria-mass;Chronic obstructive pulmonary disease with (acute) exacerbation;Obesity, unspecified;Tobacco abuse counseling;Tobacco use;Congenital hiatus hernia-moderate;Hypomagnesemia Presentation: 09/22 03:32 Chief complaint: EMS states: Pt C/O cough that started yesterday and a little b;blood wh tinged phlegm. Pt also C/O right rib pain from coughing. Pt with Hx of COPD, Asthma and Chromic Bronchitis. Coronavirus screen: Patient reports a cough. Patient reports shortness of breath or difficulty breathing. Patient denies measured and/or subjective temperature greater than 100.4F prior to today's visit. Patient denies travel on a cruise ship or to a country the [facility] currently lists as an affected area. Patient denies contact with known and/or suspected case of COVID-19. Ebola Screen: Patient negative for fever greater than or equal to 101.5 degrees Fahrenheit, and additional compatible Ebola Virus Disease symptoms Patient denies exposure to infectious person. Initial Sepsis Screen: Does the patient meet any 2 criteria? RR > 20 per min. HR > 90 bpm. Does the patient have a suspected source of infection? No. Patient's initial sepsis screen is negative. Risk Assessment: Do you want to hurt yourself or someone else? Patient reports no desire to harm self or others. Onset of symptoms is unknown. 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: 07:00 LMP N/A - Unknown Historical: - Allergies: 03:36 Aspirin; 03:36 Dilaudid; 03:36 Iodinated Contrast Media - IV Dye; 03:36 Iodine; 03:36 Morphine; 03:36 Mucinex; 03:36 NSAIDS; 03:36 PENICILLINS; 03:36 Zofran; - Home Meds: 03:55 Adderall XR 30 mg oral cp24 twice a day [Active]; tizanidine 4 mg oral cap twice a day lp1 [Active]; Ambien 10 mg Oral tab qhs prn for Sleep-Onset Insomnia [Active]; trazodone 100 mg Oral tab nightly [Active]; levalbuterol tartrate inhalation inhalation every 6 hours [Active]; Proventil Inhl every 6 hours [Active]; Breo Ellipta inhalation inhalation twice a day [Active]; Cogentin Oral 1 mg three times a day [Active]; Lyrica 150 mg Oral 2 times per day [Active]; Equetro 200 mg oral CM12 three times a day [Active]; Valium 5 mg Oral tab 1 tab 2 times per day [Active]; losartan 25 mg oral tab 1 tab once daily [Active]; Vraylar 3 mg oral cap 1 cap once daily [Active]; - PMHx: 03:36 Asthma; Bipolar disorder; Bronchitis; COPD; Depression; kidney cancer; wh - Immunization history:: Adult Immunizations up to date. - Social history:: Smoking status: Patient/guardian denies using tobacco. - Family history:: not pertinent. Screenin:37 Abuse screen: Denies threats or abuse. Denies injuries from another. Nutritional screening: No deficits noted. Tuberculosis screening: No symptoms or risk factors identified. Fall Risk None identified. Assessment: 04:00 General: Appears distressed, uncomfortable, Behavior is cooperative, appropriate for age. Pain: Complains of pain in lower back pain and right rib pain Pain does not radiate. Pain currently is 8 out of 10 on a pain scale. Quality of pain is described as aching, Pain began 2-3 days ago. Neuro: Level of Consciousness is awake, alert, obeys commands, Oriented to person, place, time, situation, Appropriate for age. Cardiovascular: Heart tones S1 S2. Respiratory: Airway is patent Respiratory effort is labored, Respiratory pattern is symmetrical, tachypnea Breath sounds are diminished Breath sounds with wheezes. GI: Abdomen is flat, non-distended. : No signs and/or symptoms were reported regarding the genitourinary system. EENT: Throat is pink. Derm: Skin is intact, is healthy with good turgor, Skin is pink, warm \T\ dry. normal. Musculoskeletal: Circulation, motion, and sensation intact. 05:15 Reassessment: Patient appears in no apparent distress at this time. No changes from previously documented assessment. Patient and/or family updated on plan of care and expected duration. Pain level reassessed. Patient is alert, oriented x 3, equal unlabored respirations, skin warm/dry/pink. Unable to start an Iv, notified CN for JENNIFER guided Iv access. 06:30 Reassessment: Patient appears in no apparent distress at this time. No changes from previously documented assessment. Patient and/or family updated on plan of care and expected duration. Pain level reassessed. Patient is alert, oriented x 3, equal unlabored respirations, skin warm/dry/pink. Vital Signs: 03:46 BP 137 / 80; Pulse 102; Resp 24; Temp 99.2(TE); Pulse Ox 96% on 4 lpm NC; Weight 163.75 lp1 kg (R); Height 5 ft. 6 in. (167.64 cm); 05:00 BP 127 / 66; Pulse 91; Resp 22; Pulse Ox 99% 3 lpm ; wh 06:30 BP 121 / 68; Pulse 92; Resp 20; Pulse Ox 97% on 3 lpm NC; 03:46 Body Mass Index 58.27 (163.75 kg, 167.64 cm) lp1 ED Course: 03:31 Patient arrived in ED. cl3 03:32 Muna Daniel is Primary Nurse. 03:33 Abhi Mccall MD is Attending Physician. marnie 03:35 Triage completed. wh 03:48 Arm band placed on left wrist. lp1 03:48 Patient has correct armband on for positive identification. Bed in low position. Call lp1 light in reach. campus monitor on. Pulse ox on. NIBP on. 04:00 Missed attempt(s): 20 gauge in left antecubital area. Bleeding controlled, band aid wh applied, catheter tip intact. 04:12 XRAY Chest (1 view) In Process Unspecified. EDMS 04:49 Rodrigo Ibanez MD is Hospitalizing Provider. marnie 05:34 CT Chest Wo Con In Process Unspecified. EDMS 06:40 Patient admitted, IV remains in place. wh 06:40 No provider procedures requiring assistance completed. 06:42 Accessed midline power glide 20cm x 10cm, right upper arm. rv Administered Medications: 05:30 Drug: Albuterol HFA Inhaler 4 puffs Route: Inhalation; 05:30 Drug: Tylenol 650 mg Route: PO; 06:29 Follow up: Response: No adverse reaction 06:00 Drug: fentaNYL (PF) 25 mcg Route: IVP; Site: right upper arm; 06:28 Follow up: Response: No adverse reaction; RASS: Alert and Calm (0) 06:00 Drug: NS 0.9% 1000 ml Route: IV; Rate: 1 bolus; Site: right upper arm; 06:30 Follow up: Response: No adverse reaction; IV Status: Completed infusion 06:00 Drug: NS 0.9% 1000 ml Route: IV; Rate: 1 bolus; Site: right upper arm; 06:30 Follow up: Response: No adverse reaction; IV Status: Infusion continued upon admission 06:02 Drug: Phenergan 12.5 mg Route: IVP; Site: right upper arm; 06:30 Follow up: Response: No adverse reaction; Nausea is decreased 06:04 Drug: Pepcid 20 mg Route: IVP; Site: right upper arm; 06:30 Follow up: Response: No adverse reaction 06:05 Drug: Rocephin 2 grams Route: IV; Rate: per protocol; Site: right upper arm; 06:29 Follow up: Response: No adverse reaction; IV Status: Completed infusion 06:10 Drug: Zithromax 500 mg Route: IVPB; Infused Over: 1 hrs; Site: right upper arm; 06:29 Follow up: Response: No adverse reaction; IV Status: Completed infusion 06:15 Drug: fentaNYL (PF) 25 mcg Route: IVP; Site: right upper arm; 06:30 Follow up: Response: No adverse reaction; RASS: Alert and Calm (0) 06:20 Drug: SOLU-Medrol 125 mg Route: IVP; Site: right upper arm; 06:29 Follow up: Response: No adverse reaction 07:00 Drug: Magnesium Sulfate 2 grams Route: IVPB; Infused Over: 2 hrs; Site: right upper arm; 07:18 Follow up: Response: No adverse reaction; IV Status: Infusion continued upon admission Outcome: 04:51 Decision to Hospitalize by Provider. marnie 06:40 Admitted to [facility] accompanied by tech, via wheelchair, room 414, with oxygen, with chart, Report called to Lauren Pizarro RN 06:40 Condition: stable 06:40 Instructed on the need for admit. 07:03 Patient left the ED. Signatures: Dispatcher [employer] EDAbhi Zacarias MD MD cha Pena, Laura, RN RN lp1 Clarita Foreman RN RN Fredy Muna Sukhi Edmondson RN RN Estelle Green cl3 Corrections: (The following items were deleted from the chart) 03:48 03:32 Initial Sepsis Screen: Does the patient meet any 2 criteria? HR > 90 bpm. Does lp1 the patient have a suspected source of infection? Yes: Productive cough/pneumonia 05:07 03:32 Initial Sepsis Screen: Does the patient meet any 2 criteria? RR > 20 per min. HR > 90 bpm. Does the patient have a suspected source of infection? No. Patient's initial sepsis screen is negative. lp1 06:38 05:15 Reassessment: Patient appears in no apparent distress at this time. No changes wh from previously documented assessment. Patient and/or family updated on plan of care and expected duration. Pain level reassessed. Patient is alert, oriented x 3, equal unlabored respirations, skin warm/dry/pink. 06:40 06:00 Accessed Patient admitted, IV remains in place. [facility]
[2019-09-23] MEDS ORDERED: ONDANSETRON 4 MG/2 ML VIAL IV PRN (05:31)
[2019-09-23] MEDS ORDERED: ACETAMINOPHEN 500 MG TAB PO PRN (05:31)
[2019-09-23] MEDS ORDERED: NA CHLORIDE 0.9% 1,000 ML IV SCH (06:00)
[2019-09-23 06:03] LABS: ALT/SGPT 14 U/L (12-78); AST/SGOT 13 U/L (15-37); Albumin 2.6 g/dL (3.4-5.0); Alkaline Phosphatase 130 U/L (45-117); BUN Blood Urea Nitrogen 7 mg/dL (7-18); Bicarbonate 28 mmol/L (21-32); Bilirubin Direct 0.3 mg/dL (0-0.2); Bilirubin Total 0.8 mg/dL (0.2-1.0); Glucose Level 88 mg/dL (74-106); Magnesium 1.5 mg/dL (1.8-2.4); NT PRO-BNP 978 pg/mL (<125); Potassium 3.9 mmol/L (3.5-5.1); Protein, Total 6.9 g/dL (6.4-8.2); Sodium Level 140 mmol/L (136-145); Troponin (Emerg Dept Use Only) < 0.02 ng/mL (0.0-0.045)
[2019-09-23] MEDS ORDERED: Magnesium Sulfate 2gm IVPB 2 G/50 ML BAG IV ONE (06:23)
[2019-09-23] MEDS ORDERED: MEPERIDINE HCL 25 MG/0.5 ML IV ONE (06:23)
[2019-09-23 06:29] LABS: Basophils % 0.3 % (0-1.3); Hematocrit 37.7 % (36.0-45.0); Lymphocytes % 6.1 % (15.3-44.8); MPV 9.2 fL (7.6-11.3); RBC Red Blood Cell Count 4.11 M/uL (3.86-4.86)
[2019-09-23 06:30] LABS: Protime INR 1.38
[2019-09-23] MEDS ORDERED: HYDROCORTISONE SUC 100 MG INJ IV ONE (06:30)
[2019-09-23] MEDS: ENOXAPARIN 40 MG/0.4 ML SQ SCH (07:33)
[2019-09-23] MEDS: Levofloxacin500mg IV 500 MG/100 ML BAG IV SCH (07:33)
[2019-09-23] MEDS: IPRATROPIUM BROM 0.5MG/2.5ML NEB SCH ×5 (08:00→20:13)
[2019-09-23] MEDS ORDERED: ALBUTEROL 2.5 MG/3 ML NEB SOL NEB SCH (08:00)
--- NOTE | 2019-09-23 08:04 | EKG ---
Test Date: 2019-09-23 Test Time: 04:33:37 Furnace Loader: ROCIO MEASUREMENT RESULTS: Intervals: Rate: 85 [place]: 142 QRSD: 86 QT: 360 QTc: 428 [place]: P: 44 NJ: 142 QRS: 60 T: 41 INTERPRETIVE STATEMENTS: Sinus rhythm with premature atrial complexes Otherwise normal ECG Compared to ECG 02/21/2019 10:29:08 Atrial premature complex(es) now present Electronically Signed On 09-23-19 08:03:49 CDT by Mahendra Howard
[2019-09-23 08:53] VITALS: BMI 58.2
[2019-09-23] MEDS: MEPERIDINE HCL 50 MG/ML IV PRN ×4 (08:57→22:19)
[2019-09-23] MEDS: PIPER/TAZO/NS 3.375gm 3.375 GM/100 ML BAG IVPB SCH ×2 (09:00→10:19)
[2019-09-23] MEDS ORDERED: MAGNESIUM SULFATE 1 gm IVPB 1 GM/100 ML BAG IV ONE (09:00)
[2019-09-23] MEDS ORDERED: POTASSIUM CL SA 10 MEQ TAB PO ONE (09:00)
--- NOTE | 2019-09-23 09:32 | P.HP ---
Certification for Inpatient Patient admitted to: Inpatient With expected LOS: >2 Midnights Patient will require the following post-hospital care: None Practitioner: I am a practitioner with admitting privileges, knowledge of patient current condition, hospital course, and medical plan of care. Services: Services provided to patient in accordance with Admission requirements found in Title 42 Section 412.3 of the Code of Federal Regulations Patient History Date of Service: 09/23/19 Reason for admission: right lower lobe pneumonia with pleuritic chest pain History of Present Illness: Patient is a 49-year-old female came to the hospital with right pleuritic chest pain. Patient workup revealed a right lower lobe pneumonia. Patient has been short of breath and having pain on deep inspiration. Patient had a large consolidated pneumonia of the right lower lobe. Patient will be admitted to the hospital for treatment of a right lower lobe pneumonia. Allergies aspirin Allergy (Severe, Verified 10/20/18 15:03) Anaphylaxis guaifenesin [From Mucinex] Allergy (Severe, Verified 10/20/18 15:03) Anaphylaxis hydromorphone HCl [From Dilaudid] Allergy (Severe, Verified 10/20/18 15:03) Anaphylaxis morphine Allergy (Severe, Verified 10/20/18 15:03) Anaphylaxis NSAIDS (Non-Steroidal Anti-Inflamma Allergy (Severe, Verified 10/20/18 15:03) Hives Penicillins Allergy (Severe, Verified 10/20/18 15:03) Anaphylaxis Iodinated Contrast Media [Iodinated Contrast Media - IV Dye] Allergy (Verified 10/20/18 15:03) Anaphylaxis ondansetron [From Zofran] Allergy (Verified 10/20/18 15:03) Itching Home Medications: Benztropine Mesylate [Cogentin*] 1 mg PO TID 10/12/18 Diazepam [Valium] 5 mg PO BID 10/12/18 Zolpidem Tartrate [Ambien*] 5 mg PO BEDTIME PRN PRN 10/12/18 Ergocalciferol (Vitamin D2) [Vitamin D 50,000 Unit Cap] 50,000 unit PO Q7D 10/20/18 Tizanidine HCl 4 mg PO BID 10/20/18 Albuterol Sulfate [Proventil Hfa] 2 puff IH QID 09/23/19 Carbamazepine [Equetro] 200 mg PO TID 09/23/19 Cariprazine HCl [Vraylar] 3 mg PO DAILY 09/23/19 Dextroamphetamine/Amphetamine [Adderall 10 mg Tablet] 10 mg PO BID 09/23/19 Dextroamphetamine/Amphetamine [Adderall 20 mg Tablet] 20 mg PO BID 09/23/19 Fluticasone/Vilanterol [Breo Ellipta 200-25 Mcg INH] 1 each IH BID 09/23/19 Ipratropium/Albuterol Sulfate [Iprat-Albut 0.5-3(2.5) mg/3 ml] 3 ml IH QIDP PRN 09/23/19 Levalbuterol Tartrate [Levalbuterol Tartrate Hfa] 2 puff IH QIDP PRN 09/23/19 Losartan Potassium 25 mg PO DAILY 09/23/19 Multivit-Minerals/Folic/Ginkgo [One Daily Women's 50+ Tablet] 1 each PO DAILY 09/23/19 Pregabalin [Lyrica] 150 mg PO BID 09/23/19 Trazodone HCl 100 mg PO BEDTIME 09/23/19 - Past Medical/Surgical History Has patient received pneumonia vaccine in the past: No Diabetic: No -: COPD -: Sleep apnea -: asthma -: smoker -: chronic back pain -: kidney cancer -: Suspect obstructive sleep apnea -: Diaphragmatic hernia -: GERD -: Former smoker -: Left nephrectomy -: Hysterectomy -: right lower leg I and D -: Lap band/and reversal -: -: I&D to the abdomen superficially -: left shoulder sx -: left ankle surgery Psychosocial/ Personal History: , one child, disabled. - Family History Father Medical History: Heart disease, Hypertension, Cancer, Liver disease Notes: liver CA, cirrhosis Mother Medical History: Lung disease Notes: copd , of morbid obesity Brother Medical History: Hypertension Sister Medical History: Lung disease, GI disease, Diabetes - Social History Smoking Status: Current every day smoker Alcohol use: No CD- Drugs: No Caffeine use: Yes Place of Residence: Home Review of Systems 10-point ROS is otherwise unremarkable Physical Examination - Vital Signs Temperature: 100.8 F Blood Pressure: 143/76 Pulse: 98 Respirations: 28 Pulse Ox (%): 93 - Physical Exam General: Alert, In no apparent distress, Oriented x3 HEENT: Atraumatic, PERRLA, Mucous membr. moist/pink, EOMI, Sclerae nonicteric Neck: Supple, 2+ carotid pulse no bruit, No LAD, Without JVD or thyroid abnormality Respiratory: Diminished, Expiratory wheezes, Rhonchi/gurgles Cardiovascular: Regular rate/rhythm, Normal S1 S2, No murmurs Gastrointestinal: Normal bowel sounds, Soft and benign, Non-distended, No tenderness Musculoskeletal: No tenderness Integumentary: No rashes Neurological: Normal gait, Normal speech, Normal strength at 5/5 x4 extr, Normal tone, Sensation intact, Cranial nerves 3-12 intact, Normal affect Lymphatics: No axilla or inguinal lymphadenopathy - Studies Laboratory Data (last 24 hrs) 09/23/19 04:50: Sodium 140, Potassium 3.9, BUN 7, Creatinine 0.62, Glucose 88, Magnesium 1.5 L D, Total Bilirubin 0.8, AST 13 L, ALT 14, Alkaline Phosphatase 130 H Microbiology Data (last 24 hrs): 09/23/19 04:40 Nasopharnyx Coronavirus COVID-19 PCR - Final 09/23/19 04:40 Nasopharnyx Influenza Type A Antigen Screen - Final 09/23/19 04:40 Nasopharnyx Influenza Type B Antigen Screen - Final Assessment & Plan - Problems (Diagnosis) (1) Right lower lobe pneumonia Current Visit: Yes Status: Acute (2) Pleuritic chest pain Current Visit: Yes Status: Acute (3) COPD (chronic obstructive pulmonary disease) Onset Date: 10/23/16 Current Visit: No Status: Acute Qualifiers: (4) Bipolar 1 disorder Onset Date: 10/23/16 Current Visit: No Status: Chronic (5) History of renal cell carcinoma Current Visit: No Status: Chronic (6) Morbid obesity Onset Date: 10/23/16 Current Visit: No Status: Chronic (7) Obstructive sleep apnea Onset Date: 10/23/16 Current Visit: No Status: Suspected - Plan 1. Continue with IV antibiotics 2. Awaiting sputum and blood culture 3. Repeat chest x-ray 4. Monitor chest x-ray to evaluate progression of right lower lobe pneumonia 5. Pulmonary consultation 6. Continue with nebs as needed 7. O2 per protocol 8. Continue with gentle hydration 9. Repeat labs including CBC and renal function in a.m. 10. GI and DVT prophylaxis Discharge Plan: Home Plan to discharge in: Greater than 2 days - Advance Directives Does patient have a Living Will: No Does patient have a Durable POA for Healthcare: No - Code Status/Comfort Care Code Status Assessed: Yes Code Status: Full Code Critical Care: No Time Spent Managing PTS Care (In Minutes): 45
[2019-09-23 09:43] LABS: Platelet Estimate ADEQ
[2019-09-23 09:44] LABS: Anisocytosis 1+; Blood Morphology Comment NOTED (NOT SEEN); Poikilocytosis 1+
[2019-09-23] MEDS ORDERED: HOME MED 1 EA UNK (Tizanidine Hcl [Tizanidine Hcl] 4 MG) PO PRN (10:41)
[2019-09-23] MEDS ORDERED: LEVALBUTEROL TARTRATE IH PRN (10:41)
[2019-09-23] MEDS ORDERED: ZOLPIDEM TARTRATE 5 MG TABLET PO PRN (11:09)
[2019-09-23] MEDS ORDERED: TIZANIDINE 4 MG TABLET PO PRN (11:16)
[2019-09-23] MEDS: DIAZEPAM 5 MG TABLET PO SCH ×2 (11:26→21:19)
[2019-09-23] MEDS: CODEINE 30MG/APAP 300MG TAB PO PRN ×2 (11:26→15:30)
[2019-09-23] MEDS: LOSARTAN POTASSIUM 50 MG TABLET PO SCH (11:27)
[2019-09-23] MEDS: METHYLPREDNISOLONE 125 MG INJ IV SCH ×2 (11:27→17:22)
[2019-09-23] MEDS: PREGABALIN 150 MG CAP PO SCH ×2 (11:27→21:17)
[2019-09-23] MEDS ORDERED: DRISDOL (VITAMIN D=ERGOCALCIFEROL) 50000 UNIT CAP PO SCH (12:00)
--- NOTE | 2019-09-23 12:27 | RAD REPORT ---
EXAM DESCRIPTION: RAD - Chest Single View - 09/23/2019 4:11 am CLINICAL HISTORY: COPD;Cough;Productive cough;Hemoptysis Chest pain. COMPARISON: Chest Single View dated 02/21/2019; Chest Pa And Lat (2 Views) dated 10/20/2018; Chest Si ngle View dated 10/07/2018; Chest Single View dated 09/22/2018 FINDINGS: Portable technique limits examination quality. Large right lower lobe consolidation is noted presumably related to pneumonia. The lungs are otherwis e clear. The heart is mildly enlarged with a hiatal hernia suspected. No displaced fractures. IMPRESSION: Large right lower lobe pneumonia suspected. Follow-up imaging until clearance is advised .
[2019-09-23] MEDS: BENZTROPINE 1 MG TAB PO SCH ×2 (12:54→21:17)
[2019-09-23] MEDS: CARBAMAZEPINE 200 MG PO SCH ×2 (12:55→21:00)
[2019-09-23] MEDS: ALBUTEROL 2.5 MG/3 ML NEB SOL NEB PRN ×2 (15:15→20:13)
--- NOTE | 2019-09-23 15:54 | RAD REPORT ---
EXAM DESCRIPTION: CT Chest Without Intravenous Contrast CLINICAL HISTORY: The patient is 49 years old and is Female; right lower lobe mass; Pain cough for o ne day, right side pain TECHNIQUE: Axial computed tomography images of the chest without intravenous contrast. Sagittal an d coronal reformatted images were created and reviewed. This CT exam was performed using one or mor e of the following dose reduction techniques: automated exposure control, adjustment of the mA and/ or kV according to patient size, and/or use of iterative reconstruction technique. COMPARISON: No relevant prior studies available. FINDINGS: Lungs: Dense right lower lobe consolidation. Tree-in-bud nodules in the superior left lower lobe. Bilateral linear atelectasis. Pleural space: No pleural effusion or pneumothorax. Heart: Unremarkable. No cardiomegaly. No significant pericardial effusion. Mediastinum: Moderately sized hiatal hernia. Bones/joints: Multilevel vertebral osteophytes. No acute compression fracture. Scoliosis. Latera l alignment is maintained. Soft tissues: Unremarkable. Vasculature: Unremarkable. No thoracic aortic aneurysm. Lymph nodes: No pathologically enlarged lymph nodes. IMPRESSION: 1. Dense right lower lobe consolidation. 2. Tree-in-bud opacities in the superior left lower lobe, likely secondary focus of infection. 3. Moderately sized hiatal hernia. 4. Additional non-emergent findings as above. Electronically signed by: Nancy Álvarez MD 09/23/2019 5:48 AM CDT Due to temporary technical issues with the PACS/Fluency reporting system, reports are being signed by the in house radiologist as a courtesy to ensure prompt reporting. The interpreting radiologist is f ully responsible for the content of the report.
[2019-09-23] MEDS ORDERED: HOME MED 1 EA UNK (Trazodone Hcl [Trazodone Hcl] 100 MG) PO SCH (21:00)
[2019-09-23] MEDS: HOME MED 1 EA UNK (Fluticasone/Vilanterol [Breo Ellipta 200-25 Mcg Inh] 1 PUFF) IH SCH (21:00)
[2019-09-23] MEDS ORDERED: TRAZODONE 50 MG TABLET PO SCH (21:00)
[2019-09-24] MEDS: ALBUTEROL 2.5 MG/3 ML NEB SOL NEB PRN ×2 (00:12→08:11)
[2019-09-24] MEDS: IPRATROPIUM BROM 0.5MG/2.5ML NEB SCH ×3 (00:12→08:11)
[2019-09-24] MEDS: METHYLPREDNISOLONE 125 MG INJ IV SCH ×2 (00:30→05:16)
[2019-09-24] MEDS: MEPERIDINE HCL 50 MG/ML IV PRN (06:17)
[2019-09-24 06:40] LABS: Absolute Lymphocytes (CBC) 1.1 K/uL (0.7-4.9); Basophils % 0.2 % (0-1.3); Hematocrit 36.5 % (36.0-45.0); Lymphocytes % 7.1 % (15.3-44.8); RBC Red Blood Cell Count 3.94 M/uL (3.86-4.86)
[2019-09-24] MEDS ORDERED: MEPERIDINE HCL 50 MG/ML IV PRN (06:48)
[2019-09-24] MEDS: CODEINE 30MG/APAP 300MG TAB PO PRN (06:58)
[2019-09-24 07:14] LABS: Albumin 2.2 g/dL (3.4-5.0); Bilirubin Total 0.1 mg/dL (0.2-1.0); Magnesium 2.3 mg/dL (1.8-2.4); Phosphorus 3.8 mg/dL (2.5-4.9); Potassium 4.6 mmol/L (3.5-5.1); Protein, Total 6.7 g/dL (6.4-8.2)
--- NOTE | 2019-09-24 08:14 | RAD REPORT ---
EXAM DESCRIPTION: RAD - Chest Single View - 09/24/2019 7:33 am CLINICAL HISTORY: pneumonia COMPARISON: CT chest September 22, portable chest September 22 TECHNIQUE: AP portable chest image was obtained 09/24/2019 7:33 am . FINDINGS: Dense consolidation in the medial right base has improved. No new lung parenchymal process . Cardiac silhouette remains enlarged. Vasculature remains mildly prominent. No measurable pleural ef fusion and no pneumothorax. No acute bony abnormality seen. No acute aortic findings suspected. IMPRESSION: Partial resolution of the right base consolidated pneumonia. Lower lung volumes accentuate vasculature and lung markings. Patient can be monitored for developing failure or volume overload.
[2019-09-24] MEDS ORDERED: FOLIC PO SCH (09:00)
[2019-09-24] MEDS ORDERED: MULTIVIT MINERALS PO SCH (09:00)
[2019-09-24] MEDS ORDERED: [UNRECOGNIZED DRUG - OTHER] PO SCH (09:00)
[2019-09-24] MEDS ORDERED: HOME MED 1 EA UNK (Losartan Potassium [Losartan Potassium] 25 MG) PO SCH (09:00)
[2019-09-24] MEDS: CARBAMAZEPINE 200 MG PO SCH (09:00)
[2019-09-24] MEDS ORDERED: CARIPRAZINE HCL 3 MG PO SCH (09:00)
[2019-09-24] MEDS: HOME MED 1 EA UNK (Fluticasone/Vilanterol [Breo Ellipta 200-25 Mcg Inh] 1 PUFF) IH SCH (09:00)
[2019-09-24] MEDS ORDERED: GINKGO PO SCH (09:00)
[2019-09-24] MEDS: ENOXAPARIN 40 MG/0.4 ML SQ SCH (09:00)
[2019-09-24] MEDS: DIAZEPAM 5 MG TABLET PO SCH ×2 (09:00→09:30)
[2019-09-24 09:26] VITALS: O2SAT 90
[2019-09-24] MEDS: Levofloxacin500mg IV 500 MG/100 ML BAG IV SCH (09:29)
[2019-09-24] MEDS: LOSARTAN POTASSIUM 50 MG TABLET PO SCH (09:30)
[2019-09-24] MEDS: PREGABALIN 150 MG CAP PO SCH (09:30)
[2019-09-24] MEDS: BENZTROPINE 1 MG TAB PO SCH (09:30)
[2019-09-24 09:42] VITALS: BP 143/76; TEMP 100.8
--- NOTE | 2019-09-24 09:46 | P.DS ---
Discharge Date: 09/24/19 Reason for Admission: right lower lobe pneumonia with pleuritic chest pain - Problems (1) Right lower lobe pneumonia Current Visit: Yes Status: Acute (2) Pleuritic chest pain Current Visit: Yes Status: Acute (3) COPD (chronic obstructive pulmonary disease) Onset Date: 10/23/16 Current Visit: No Status: Acute Qualifiers: (4) Bipolar 1 disorder Onset Date: 10/23/16 Current Visit: No Status: Chronic (5) History of renal cell carcinoma Current Visit: No Status: Chronic (6) Morbid obesity Onset Date: 10/23/16 Current Visit: No Status: Chronic (7) Obstructive sleep apnea Onset Date: 10/23/16 Current Visit: No Status: Suspected Brief History of Present Illness: Patient is a 49-year-old female came to the hospital with right pleuritic chest pain. Patient workup revealed a right lower lobe pneumonia. Patient has been short of breath and having pain on deep inspiration. Patient had a large consolidated pneumonia of the right lower lobe. Patient will be admitted to the hospital for treatment of a right lower lobe pneumonia. Hospital Course: Patient's pneumonia has improved. At this time patient is stable for discharge patient continue on antibiotics for 1 week. Outpatient follow with Pulmonary. Also outpatient follow with PCP. Return to the ER if symptoms worsen. Patient may need to follow with Bariatric to get into a bariatric program going forward. Vital Signs/Physical Exam: Temp Pulse Resp BP Pulse Ox 100.8 F 98 H 28 H 143/76 H 93 09/24/19 09:41 09/24/19 09:41 09/24/19 09:41 09/24/19 09:41 09/24/19 09:41 General: Alert, In no apparent distress, Oriented x3 Laboratory Data at Discharge: WBC 15.5 K/uL (4.3-10.9) H 09/24/19 06:28 Hgb 11.6 g/dL (12.0-15.0) L 09/24/19 06:28 Hct 36.5 % (36.0-45.0) 09/24/19 06:28 Plt Count 264 K/uL (152-406) D 09/24/19 06:28 PT 16.2 SECONDS (9.5-12.5) H 09/23/19 06:00 INR 1.38 09/23/19 06:00 Sodium 140 mmol/L (136-145) 09/24/19 06:28 Potassium 4.6 mmol/L (3.5-5.1) 09/24/19 06:28 BUN 14 mg/dL (7-18) 09/24/19 06:28 Creatinine 0.71 mg/dL (0.55-1.3) 09/24/19 06:28 Glucose 136 mg/dL (74-106) H 09/24/19 06:28 Phosphorus 3.8 mg/dL (2.5-4.9) 09/24/19 06:28 Magnesium 2.3 mg/dL (1.8-2.4) 09/24/19 06:28 Total Bilirubin 0.1 mg/dL (0.2-1.0) L 09/24/19 06:28 AST 8 U/L (15-37) L 09/24/19 06:28 ALT 13 U/L (12-78) 09/24/19 06:28 Alkaline Phosphatase 123 U/L (45-117) H 09/24/19 06:28 Triglycerides 85 mg/dL (<150) 09/24/19 06:28 Cholesterol 115 mg/dL (<200) 09/24/19 06:28 HDL Cholesterol 70 mg/dL (40-60) H 09/24/19 06:28 Cholesterol/HDL Ratio 1.64 09/24/19 06:28 Home Medications: Benztropine Mesylate [Cogentin*] 1 mg PO TID 10/12/18 Diazepam [Valium] 5 mg PO BID 10/12/18 Zolpidem Tartrate [Ambien*] 5 mg PO BEDTIME PRN PRN 10/12/18 Ergocalciferol (Vitamin D2) [Vitamin D 50,000 Unit Cap] 50,000 unit PO Q7D 10/20/18 Tizanidine HCl 4 mg PO BID 10/20/18 Albuterol Sulfate [Proventil Hfa] 2 puff IH QID 09/23/19 Carbamazepine [Equetro] 200 mg PO TID 09/23/19 Cariprazine HCl [Vraylar] 3 mg PO DAILY 09/23/19 Dextroamphetamine/Amphetamine [Adderall 10 mg Tablet] 10 mg PO BID 09/23/19 Dextroamphetamine/Amphetamine [Adderall 20 mg Tablet] 20 mg PO BID 09/23/19 Fluticasone/Vilanterol [Breo Ellipta 200-25 Mcg INH] 1 each IH BID 09/23/19 Ipratropium/Albuterol Sulfate [Iprat-Albut 0.5-3(2.5) mg/3 ml] 3 ml IH QIDP PRN 09/23/19 Levalbuterol Tartrate [Levalbuterol Tartrate Hfa] 2 puff IH QIDP PRN 09/23/19 Losartan Potassium 25 mg PO DAILY 09/23/19 Multivit-Minerals/Folic/Ginkgo [One Daily Women's 50+ Tablet] 1 each PO DAILY 09/23/19 Pregabalin [Lyrica] 150 mg PO BID 09/23/19 Trazodone HCl 100 mg PO BEDTIME 09/23/19 Levofloxacin [Levaquin] 500 mg PO DAILY #5 tablet 09/24/19 predniSONE [Prednisone*] 20 mg PO DAILY #5 tab 09/24/19 New Medications: Levofloxacin [Levaquin] 500 mg PO DAILY #5 tablet predniSONE [Prednisone*] 20 mg PO DAILY #5 tab Patient Discharge Instructions: OK TO DC IV AND DC HOME. FOLLOW-UP WITH PRIMARY CARE PROVIDER IN 1-2 WEEKS. FOLLOW-UP WITH PULMONARY IN 1-2 WEEKS. RETURN TO THE ER IF symptoms worsen. CALL or TEXT DR. NARVAEZ AT [phone] IF ANY QUESTIONS REGARDING HOSPITAL STAY. PLEASE CALL THE FLOOR AT [phone] IF ANY MEDICATION OR NURSING QUESTIONS. Diet: Regular Activity: Fall precautions Time spent managing pt's care (in minutes): 25
[2019-09-26] MEDS ORDERED: DRISDOL (VITAMIN D=ERGOCALCIFEROL) 50000 UNIT CAP PO SCH (12:00)
== END 2019-09-24 10:58 | disposition home or self-care (01) | DRG 194 ==
LOC: ER 03:29 → ERHOLD 05:38 → 4TH 06:20 → 2ND 15:40
PROVIDERS: ADMIT Hospitalist; ATTEND Hospitalist
DX: J18.9 Pneumonia, unspecified organism (principal); Z68.43 Body mass index [BMI] 50.0-59.9, adult; K21.9 Gastro-esophageal reflux disease without esophagitis; F17.200 Nicotine dependence, unspecified, uncomplicated; J44.9 Chronic obstructive pulmonary disease, unspecified; F31.9 Bipolar disorder, unspecified; E66.01 Morbid (severe) obesity due to excess calories; G47.33 Obstructive sleep apnea (adult) (pediatric); M54.9 Dorsalgia, unspecified; G89.29 Other chronic pain; R06.02 Shortness of breath; R07.89 Other chest pain; Z79.52 Long term (current) use of systemic steroids; Z88.0 Allergy status to penicillin; Z79.890 Hormone replacement therapy; Z88.8 Allergy status to other drugs, medicaments and biological substances; Z91.041 Radiographic dye allergy status; Z79.899 Other long term (current) drug therapy; Z20.828 Contact with and (suspected) exposure to other viral communicable diseases; Z85.528 Personal history of other malignant neoplasm of kidney; Z90.710 Acquired absence of both cervix and uterus; Z88.5 Allergy status to narcotic agent; Z90.5 Acquired absence of kidney
CPT/HCPCS: 36415; 71045; 71250; 80048; 80053; 80061; 80076; 83605; 83735; 83880; 84100; 84145; 84484; 85025; 85610; 87040; 87804; 93005; 94640; 94760; 96365; 96367; 96375; 99285; J0456; J0696; J1650; J2175; J2543; J2550; J2930; J3010; J3475; J7030; U0002

== ENCOUNTER 2019-11-06 18:51 | Emergency (ER) | payer OTHER ==
--- OUTSIDE RECORDS SUMMARY | 2019-11-06 18:56 | XMS REPORT | Continuity of Care Document ---
:1970 Author Organization [facility] t Address [address] [place] [address] Care Team Providers Name Role Phone Unavailable Unavailable Unavailable Payers Payer Name Policy Type Policy Number Effective Date Expiration Date S ource Problems This patient has no known problems. Allergies, Adverse Reactions, Alerts Allergy Allergy Status Severity Reaction(s) Onset Inactive Treating Comm ents Source Name Type Date Date Clinician fentanyl DA Active [place] [facility] 5-27 Clear 00:00: Champagne 00 [facility] Iodinate DA Active SV 2018-05 [facility] d 05-03 Clear Contrast 00:00: Champagne Media [facility] NSAIDS DA Active SV 2018-05 [facility] (Non-Remigio 05-03 Clear roidal 00:00: Champagne Anti-Inf 00 [facility] Penicill DA Active SV 2018-05 [facility] ins 05-03 Clear 00:00: Champagne [facility] morphine DA Active SV 2018-05 [facility] 05-03 Clear 00:00: Champagne 00 [facility] aspirin DA Active U 2018-05 [facility] 05-03 Clear 00:00: Champagne 00 [facility] hydromor DA Active SV 2018-05 [facility] phone 05-03 Clear 00:00: Champagne 00 [facility] shellfis FA Active SV 2018-05 [facility] h 05-03 Clear derived 00:00: Champagne 00 [facility] No Known DA Active U [facility] Contrast 8-11 [place] All[facility]: [facility] s [facility] No Known DA Active U 2008-0 [facility] Food 12-11 [place] Allergie 00:00: d s 00 [facility] No Known DA Active U 2008-0 [facility] Other 12-11 [place] All[facility]ie 00:[facility]: d s [facility] PENICILL DA Active U 2008-0 [facility] IN 12-11 [place] 00:[facility]: d [facility] penicill DA Active U 2004-0 [facility] in G 09-05 [place] 00:[facility]: d [facility] Medications This patient has no known medications. Procedures This patient has no known procedures. Results Test Description Test Time Test Comments Results Result Comments Source Novel Coronavirus 2019 Inhouse 2019-09-27 21:08:00 Test Item Value Reference Range Interpretation Comme nts Novel Coronavirus 2019 Inhouse (test code = COVNONPUI) Negative Negative COMPREHENSIVE METABOLIC [id number] 09:36:00 Test Item Value Reference Range Interpretation Comments SODIUM (test code = NA) 145 mEq/L 134-147 N POTASSIUM (test code = 4.3 mEq/L 3.4-5.0 N K) CHLORIDE (test code = 107 mEq/L 100-108 N CL) CARBON DIOXIDE (test 34 mEq/L 21-33 H code = CO2) ANION GAP (test code = 8 0-20 N GAP) GLUCOSE (test code = 99 mg/dL 70-110 N GLU) BLOOD UREA NITROGEN 11 mg/dL 7-18 N (test code = BUN) GLOMERULAR FILTRATION 89.3 95-105 L Units of measure = RATE (test code = GFR) ml/mi n/1.73 m2 CREATININE (test code = 0.7 mg/dL 0.6-1.3 N CREAT) TOTAL PROTEIN (test 6.8 g/dL 6.4-8.2 N code = PROT) ALBUMIN (test code = 2.50 g/dL 3.4-5.0 L ALB) CALCIUM (test code = 9.2 mg/dL 8.0-10.5 N CA) BILIRUBIN TOTAL (test < 0.1 MG/DL <1.5 N code = BILT) SGOT/AST (test code = 12 IUnit/L 15-37 L AST) SGPT/ALT (test code = 18 IUnit/L 15-65 N ALT) ALKALINE PHOSPHATASE 125 IUnit/L 20-125 N TOTAL (test code = ALKP) HCG SERUM [id number] 09:36:00 Test Item Value Reference Range Interpretation Comments HCG SERUM QUAL (test code = SERUM NEGATIVE NEGATIVE HCGQL) - XR CHEST 2 [id number] 09:35:00 FAX: Jigar Velasco DPAdryan [phone] [place]: St: PRE FAX: Adele Hernández MD [phone] Name: MARCELLE WEISS [facility] : 1970 Age/S: 49/F [address] [place] [address] Unit #: [id number] Loc: [place] [address] Phys: Jigar Jurado DPM Acct: [id number] Dis Date: Status: PRE SDC PHONE #: [phone] Exam Date: 09/27/2019930 FAX #: [phone] Reason: PREOP- PAIN D/T ORTHOPEDIC IMPLANT EXAMS: CPT CODE: [id number] XR CHEST 2 V 28400 Two-view chest: HISTORY: Preoperative clearance for painful orthopedic implant. FINDINGS: Stable mild cardiomegaly compared with 05/07/2019. Development of areas of bibasilar subsegmental atelectasis. No pleural effusion or bony pathology IMPRESSION: Bibasilar s ubsegmental atelectasis SL: [id number] at 0935 Reported and signed by: Sammy Branham M.D. CC: Jigar Jurado DPM; Adele York MD Technologist: Diamond Castro, RT(R) Trnscrd Date/Time/By: 09/27/2019 (0935) : By: SomETG Orig Print D/T: S: 09/27/2019 (0443) PAGE 1 Signed ReportCOMPREHENSIVE METABOLIC [id number] 09:28:00 Test Item Value Reference Range Interpretation Comments SODIUM (test code = NA) mEq/L 134-147 POTASSIUM (test code = K) mEq/L 3.4-5.0 CHLORIDE (test code = CL) mEq/L 100-108 CARBON DIOXIDE (test code = CO2) mEq/L 21-33 ANION GAP (test code = GAP) 0-20 GLUCOSE (test code = GLU) mg/dL 70-110 BLOOD UREA NITROGEN (test code = mg/dL 7-18 BUN) GLOMERULAR FILTRATION RATE (test 95-105 code = GFR) CREATININE (test code = CREAT) mg/dL 0.6-1.3 TOTAL PROTEIN (test code = PROT) g/dL 6.4-8.2 ALBUMIN (test code = ALB) g/dL 3.4-5.0 CALCIUM (test code = CA) mg/dL 8.0-10.5 BILIRUBIN TOTAL (test code = BILT) MG/DL <1.5 SGOT/AST (test code = AST) IUnit/L 15-37 SGPT/ALT (test code = ALT) IUnit/L 15-65 ALKALINE PHOSPHATASE TOTAL (test IUnit/L 20-125 code = ALKP) HCG SERUM [id number] 09:28:00 Test Item Value Reference Range Interpretation Comments HCG SERUM QUAL (test code = SERUM NEGATIVE NEGATIVE HCGQL) CBC W/AUTO [id number] 09:21:00 Test Item Value Reference Range Interpretation Comments WHITE BLOOD CELL (test code = 10.34 x10 3/uL 4.5-11.0 N WBC) RED BLOOD CELL (test code = 4.00 x10 6/uL 3.54-5.02 N RBC) HEMOGLOBIN (test code = HGB) 11.8 g/dL 11.0-15.0 N HEMATOCRIT (test code = HCT) 40.4 % 33.0-45.0 N MEAN CELL VOLUME (test code = 101.0 fL 81.0-99.0 H MCV) MEAN CELL HGB (test code = 29.5 pg 27.0-33.0 N MCH) MEAN CELL HGB CONCETRATION 29.2 g/dL 33.0-37.0 L (test code = MCHC) RED CELL DISTRIBUTION WIDTH CV 14.6 % 11.5-14.5 H (test code = RDW) RED CELL DISTRIBUTION WIDTH SD 54.4 fL 37.0-54.0 H (test code = RDW-SD) PLATELET COUNT (test code = 321 x10 3/uL 150-400 N PLT) MEAN PLATELET VOLUME (test 9.9 fL 7.0-9.0 H code = MPV) NEUTROPHIL % (test code = NT%) 58.0 % 56.0-77.0 N IMMATURE GRANULOCYTE % (test 5.3 % 0.0-2.0 H code = IG%) LYMPHOCYTE % (test code = LY%) 25.6 % 14.0-32.0 N MONOCYTE % (test code = MO%) 7.5 % 4.8-9.0 N EOSINOPHIL % (test code = EO%) 2.5 % 0.3-3.7 N BASOPHIL % (test code = BA%) 1.1 % 0.0-2.0 N NUCLEATED RBC % (test code = 0.2 % 0-0 H NRBC%) NEUTROPHIL # (test code = NT#) 5.99 x10 3/uL 2.0-7.6 N IMMATURE GRANULOCYTE # (test 0.55 x10 3/uL 0.00-0.03 H code = IG#) LYMPHOCYTE # (test code = LY#) 2.65 x10 3/uL 1.0-3.8 N MONOCYTE # (test code = MO#) 0.78 x10 3/uL 0.1-0.8 N EOSINOPHIL # (test code = EO#) 0.26 x10 3/uL 0.0-0.2 H BASOPHIL # (test code = BA#) 0.11 x10 3/uL 0.0-0.2 N NUCLEATED RBC # (test code = 0.02 x10 3/uL 0.0-0.1 N NRBC#) MANUAL DIFF REQUIRED (test NO code = MDIFF) BASIC METABOLIC [id number] 09:50:00 Test Item Value Reference Range Interpretation Comments SODIUM (test code = NA) 141 mmol/L 134-147 N POTASSIUM (test code = 3.9 mmol/L 3.4-5.0 N K) CHLORIDE (test code = 103 mmol/L 100-108 N CL) CARBON DIOXIDE (test 35 mmol/L 21-32 H code = CO2) ANION GAP (test code = 3.0 GAP calc 4.0-15.0 L GAP) GLUCOSE (test code = 88 MG/DL 70-110 N GLU) BLOOD UREA NITROGEN 13 MG/DL 7-18 N (test code = BUN) GLOMERULAR FILTRATION >=60 max estimate >60 RATE (test code = GFR) estGFR CREATININE (test code = 0.7 MG/DL 0.6-1.0 N CREAT) CALCIUM (test code = CA) 9.5 MG/DL 8.5-10.1 N VANCOMYCIN [id number] 21:06:00 Test Item Value Reference Range Interpretation Comments VANCOMYCIN TROUGH (test code = 19.1 mcG/ML 10-20 N VANCT) GLUCOSE BEDSIDE [id number] 20:17:00 Test Item Value Reference Range Interpretation Comments GLUCOSE BEDSIDE TESTING (test code = 84 mg/dL 70-110 N GLUBED) - NM BONE 3 [id number] 19:51:00 FAX: Dwight Parrish MD Cam[place]: PM St: ADM FAX: Bettye Alves MD [phone] Name: MARCELLE WEISS [facility] : 1970 Age/S: 49/F [address] [facility] Unit #: [id number] Loc: [address] [place] [address] Phys: Bettye Mullins MD Acct: [id number] Dis Date: Status: ADM IN PHONE #: [phone] Exam Date: 05/09/2019 6583 FAX #: Reason: OM ANDHARDWARE INFECTION LEFT ANKLE EXAMS: CPT: [id number] NM BONE 3 PHASE 58075 EXAM: - NM BONE 3 PHASE HISTORY: OM AND HARDWARE INFECTION LEFT ANKLE Location code:C3 COMPARISON: 05/07/2019 TECHNIQUE: After intravenous injection of 24.2 mCi TC 99m MDP, immediate blood flow and blood pool images were obtained of the area of interest. Delayed images were obtained of the feet in multiple projections. FINDINGS: There is abnormal uptake on flow, blood pool, and delayed imaging involving themedial malleolus with increased uptake on blood pool and delayed phase imaging of the lateral malleolus on the left. No additional abnormal uptake is seen. IMPRESSION: 1. There is 3 phase uptake about the left medial malleolus which can be seen with infection. This can also be seen in the immediate postoperative state and correlation with date of surgery is recommended. 2. Blood pool and delayed uptake in the left lateral malleolus is nonspecific. at 1950 Reported and signed by: Surinder Nichols MD CC: Dwight Calloway MD; Bettye Mullins MD Technologist: DWAYNE Amado Transcribed Date/Time/By: 05/09/2019 (1950) :[email or web address] Orig Print D/T: S: 05/09/2019 (1953) PAGE 1 Signed Report PROCALCITONIN (PCT)2019-05-08 14:15:00 Test Item Value Reference Range Interpretation Comments PROCALCITONIN (PCT) < 0.05 ng/mL 0.00-0.05 N PROCALCI TONIN (PCT) (test code = PROCAL) NORMAL RANGE (ADULT): <0.05 NG/ML. * a concentration < 0.5 ng/mL represent s a low risk of severe sepsis and/or septic s hock.* a concentration >2 ng/mL represent s a high risk of se mike sepsis and/or s eptic shock.Neverthel ess, concentrations <0.5 ng/mL do not ex clude aninfection, on account of loca lized infections (withoutsystemi c signs) which ca n be associated with such lowconcentratio ns, or a systemic infe ction in its initials tages (< 6 hours). Furthermore, in creased procalcitoninca n occur without infecti on. PCT concentrations between 0.5and 2.0 ng/m L should be inter preted taking into acc ount thepatient's hi story. It is recommend ed to retest PCT with in6-24 hours if any concentrations <2 ng/mL are obtai emily. BASIC METABOLIC [id number] 14:15:00 Test Item Value Reference Range Interpretation Comments SODIUM (test code = NA) 140 mmol/L 134-147 N POTASSIUM (test code = 3.8 mmol/L 3.4-5.0 N K) CHLORIDE (test code = 106 mmol/L 100-108 N CL) CARBON DIOXIDE (test 29 mmol/L 21-32 N code = CO2) ANION GAP (test code = 5.0 GAP calc 4.0-15.0 N GAP) GLUCOSE (test code = 103 MG/DL 70-110 N GLU) BLOOD UREA NITROGEN 11 MG/DL 7-18 N (test code = BUN) GLOMERULAR FILTRATION >=60 max estimate >60 RATE (test code = GFR) estGFR CREATININE (test code = 0.7 MG/DL 0.6-1.0 N CREAT) CALCIUM (test code = CA) 8.9 MG/DL 8.5-10.1 N PROCALCITONIN (PCT)2019-05-08 14:15:00 Test Item Value Reference Range Interpretation Comments PROCALCITONIN (PCT) < 0.05 ng/mL 0.00-0.05 PROCALCI TONIN (PCT) (test code = PROCAL) NORMAL RANGE (ADULT): <0.05 NG/ML. * a concentration < 0.5 ng/mL represent s a low risk of severe sepsis and/or septic s hock.* a concentration >2 ng/mL represent s a high risk of se mike sepsis and/or s eptic shock.Neverthel ess, concentrations <0.5 ng/mL do not ex clude aninfection, on account of loca lized infections (withoutsystemi c signs) which ca n be associated with such lowconcentratio ns, or a systemic infe ction in its initials tages (< 6 hours). Furthermore, in creased procalcitoninca n occur without infecti on. PCT concentrations between 0.5and 2.0 ng/m L should be inter preted taking into acc ount thepatient's hi story. It is recommend ed to retest PCT with in6-24 hours if any concentrations <2 ng/mL are obtai emily. CBC W/AUTO [id number] 07:54:00 Test Item Value Reference Range Interpretation Comments WHITE BLOOD CELL (test code = 7.1 K/mm3 3.5-11.0 N WBC) RED BLOOD CELL (test code = RBC) 4.29 M/mm3 4.70-6.10 L HEMOGLOBIN (test code = HGB) 13.2 G/DL 10.4-14.9 N HEMATOCRIT (test code = HCT) 40.8 % 31.5-44.1 N MEAN CELL VOLUME (test code = 95.1 Fl 84.5-98.6 N MCV) MEAN CELL HGB (test code = MCH) 30.8 pg 27.0-34.2 N MEAN CELL HGB CONCETRATION (test 32.4 G/DL 31.5-34.0 N code = MCHC) RED CELL DISTRIBUTION WIDTH (test 14.0 SD 11.5-14.5 N code = RDW) PLATELET COUNT (test code = PLT) 211.0 K/mm3 150-450 N MEAN PLATELET VOLUME (test code = 10.50 fL 7.0-10.5 N MPV) NEUTROPHIL % (test code = NT%) 61.0 % 40-76 N LYMPHOCYTE % (test code = LY%) 30.5 % 20.5-51.1 N MONOCYTE % (test code = MO%) 6.8 % 1.7-9.3 N EOSINOPHIL % (test code = EO%) 1.4 % 0.0-6.0 N BASOPHIL % (test code = BA%) 0.3 % 0.0-2.0 N NEUTROPHIL # (test code = NT#) 4.34 K/mm3 1.8-7.6 N LYMPHOCYTE # (test code = LY#) 2.2 K/mm3 0.6-3.2 N MONOCYTE # (test code = MO#) 0.5 K/mm3 0.3-1.1 N EOSINOPHIL # (test code = EO#) 0.1 K/mm3 0.0-0.4 N BASOPHIL # (test code = BA#) 0.0 K/mm3 0.0-0.1 N MANUAL DIFF REQUIRED (test code = NO DIFF/SCN CRITERIA MDIFF) SED [id number] 07:54:00 Test Item Value Reference Range Interpretation Comments SED RATE (test code = SEDW) 19 mm/hr 0-20 N BASIC METABOLIC [id number] 06:17:00 Test Item Value Reference Range Interpretation Comments SODIUM (test code = NA) 140 mmol/L 134-147 N POTASSIUM (test code = 3.8 mmol/L 3.4-5.0 N K) CHLORIDE (test code = 106 mmol/L 100-108 N CL) CARBON DIOXIDE (test 29 mmol/L 21-32 N code = CO2) ANION GAP (test code = 5.0 GAP calc 4.0-15.0 N GAP) GLUCOSE (test code = 103 MG/DL 70-110 N GLU) BLOOD UREA NITROGEN 11 MG/DL 7-18 N (test code = BUN) GLOMERULAR FILTRATION >=60 max estimate >60 RATE (test code = GFR) estGFR CREATININE (test code = 0.7 MG/DL 0.6-1.0 N CREAT) CALCIUM (test code = CA) 8.9 MG/DL 8.5-10.1 N PROCALCITONIN (PCT)2019-05-08 06:17:00 Test Item Value Reference Range Interpretation Comments PROCALCITONIN (PCT) (test code = ng/ml PROCAL) CBC W/AUTO [id number] 06:08:00 Test Item Value Reference Range Interpretation Comments WHITE BLOOD CELL (test code = 7.1 K/mm3 3.5-11.0 N WBC) RED BLOOD CELL (test code = RBC) 4.29 M/mm3 4.70-6.10 L HEMOGLOBIN (test code = HGB) 13.2 G/DL 10.4-14.9 N HEMATOCRIT (test code = HCT) 40.8 % 31.5-44.1 N MEAN CELL VOLUME (test code = 95.1 Fl 84.5-98.6 N MCV) MEAN CELL HGB (test code = MCH) 30.8 pg 27.0-34.2 N MEAN CELL HGB CONCETRATION (test 32.4 G/DL 31.5-34.0 N code = MCHC) RED CELL DISTRIBUTION WIDTH (test 14.0 SD 11.5-14.5 N code = RDW) PLATELET COUNT (test code = PLT) 211.0 K/mm3 150-450 N MEAN PLATELET VOLUME (test code = 10.50 fL 7.0-10.5 N MPV) NEUTROPHIL % (test code = NT%) 61.0 % 40-76 N LYMPHOCYTE % (test code = LY%) 30.5 % 20.5-51.1 N MONOCYTE % (test code = MO%) 6.8 % 1.7-9.3 N EOSINOPHIL % (test code = EO%) 1.4 % 0.0-6.0 N BASOPHIL % (test code = BA%) 0.3 % 0.0-2.0 N NEUTROPHIL # (test code = NT#) 4.34 K/mm3 1.8-7.6 N LYMPHOCYTE # (test code = LY#) 2.2 K/mm3 0.6-3.2 N MONOCYTE # (test code = MO#) 0.5 K/mm3 0.3-1.1 N EOSINOPHIL # (test code = EO#) 0.1 K/mm3 0.0-0.4 N BASOPHIL # (test code = BA#) 0.0 K/mm3 0.0-0.1 N MANUAL DIFF REQUIRED (test code = NO DIFF/SCN CRITERIA MDIFF) SED [id number] 06:08:00 Test Item Value Reference Range Interpretation Comments SED RATE (test code = SEDW) mm/hr 0-20 [id number] 02:57:00 Test Item Value Reference Range Interpretation Comments TROPONIN-I (test < 0.015 NG/ML 0.000-0.045 N Negative: </= 0.045 code = TROPI) Positive: >/= 0.046 Correlation wit h serial results, other cardiac markers, and cl inical findings is nec essary to determine the c linical significance of this result. Quantit ative results using d ifferent methodologies s hould not be compared to one another as nume rical results may basilio yby method. Completed by Nursing: [id number] 23:57:00 Test Item Value Reference Range Interpretation Comments TROPONIN-I (test < 0.015 NG/ML 0.000-0.045 N Negative: </= 0.045 code = TROPI) Positive: >/= 0.046 Correlation wit h serial results, other cardiac markers, and cl inical findings is nec essary to determine the c linical significance of this result. Quantit ative results using d ifferent methodologies s hould not be compared to one another as nume rical results may basilio yby method. Completed by Nursing: BIRGITUA RFLX MICR CULT IF [id number] 18:41:00 Test Item Value Reference Range Interpretation Comments UA COLOR (test code = COLU) YELLOW discript YEL/STRAW UA APPEARANCE (test code = CLEAR discript CLEAR APPU) UA GLUCOSE DIPSTICK (test NEGATIVE mg/dL NEG code = DGLUU) UA BILIRUBIN DIPSTICK (test NEGATIVE mg/dL NEG code = BILU) UA KETONE DIPSTICK (test NEGATIVE mg/dL NEG code = KETU) UA SPECIFIC GRAVITY (test 1.010 SG 1.005-1.030 code = SGU) UA BLOOD DIPSTICK (test NEGATIVE mg/DL NEG code = LUKASZ) UA PH DIPSTICK (test code = 8.0 pH UNITS 5.0-7.0 GWEN) UA PROTEIN DIPSTICK (test NEGATIVE mg/dL NEG code = PROU) UA UROBILINIOGEN DIPSTICK 0.2 mg/dL <2.0 (test code = URO) UA NITRITE DIPSTICK (test NEGATIVE SCREEN NEG code = RUTH ANN) UA LEUKOCYTE ESTERASE NEGATIVE Leuk/mcL NEGATIVE DIPSTICK (test code = LEUU) UA CULTURE NEEDED? (test Criteria Culture CHK code = UACULT) SOURCE OF URINE: CLEAN CATCHIndication for culture: Dysuria/FrequencyUA RFLX MICR CULT IF [id number] 18:41:00 Test Item Value Reference Range Interpretation Comments UA COLOR (test code = COLU) YELLOW discript YEL/STRAW UA APPEARANCE (test code = CLEAR discript CLEAR APPU) UA GLUCOSE DIPSTICK (test NEGATIVE mg/dL NEG code = DGLUU) UA BILIRUBIN DIPSTICK (test NEGATIVE mg/dL NEG code = BILU) UA KETONE DIPSTICK (test NEGATIVE mg/dL NEG code = KETU) UA SPECIFIC GRAVITY (test 1.010 SG 1.005-1.030 code = SGU) UA BLOOD DIPSTICK (test NEGATIVE mg/DL NEG code = LUKASZ) UA PH DIPSTICK (test code = 8.0 pH UNITS 5.0-7.0 GWEN) UA PROTEIN DIPSTICK (test NEGATIVE mg/dL NEG code = PROU) UA UROBILINIOGEN DIPSTICK 0.2 mg/dL <2.0 (test code = URO) UA NITRITE DIPSTICK (test NEGATIVE SCREEN NEG code = RUTH ANN) UA LEUKOCYTE ESTERASE NEGATIVE Leuk/mcL NEGATIVE DIPSTICK (test code = LEUU) SOURCE OF URINE: CLEAN CATCHIndication for culture: Dysuria/Frequency COMPREHENSIVE METABOLIC [id number] 18:23:00 Test Item Value Reference Range Interpretation Comments SODIUM (test code = NA) 138 mmol/L 134-147 N POTASSIUM (test code = 4.0 mmol/L 3.4-5.0 N K) CHLORIDE (test code = 102 mmol/L 100-108 N CL) CARBON DIOXIDE (test 31 mmol/L 21-32 N code = CO2) ANION GAP (test code = 5.0 GAP calc 4.0-15.0 N GAP) GLUCOSE (test code = 95 MG/DL 70-110 N GLU) BLOOD UREA NITROGEN 10 MG/DL 7-18 N (test code = BUN) GLOMERULAR FILTRATION >=60 max estimate >60 RATE (test code = GFR) estGFR CREATININE (test code = 0.7 MG/DL 0.6-1.0 N CREAT) TOTAL PROTEIN (test code 6.9 G/DL 6.4-8.2 N = PROT) ALBUMIN (test code = 3.3 G/DL 3.4-5.0 L ALB) GLOBULIN (test code = 3.6 GM/dL GLOB) ALBUMIN/GLOBULIN RATIO 0.9 RATIO 1.2-2.2 L (test code = A/G) CALCIUM (test code = CA) 9.2 MG/DL 8.5-10.1 N BILIRUBIN TOTAL (test 0.20 MG/DL 0.2-1.2 N code = BILT) SGOT/AST (test code = 11 Unit/L 15-37 L AST) SGPT/ALT (test code = 16 Unit/L 12-78 N ALT) ALKALINE PHOSPHATASE 90 Unit/L 45-117 N TOTAL (test code = ALKP) CBC W/AUTO [id number] 18:03:00 Test Item Value Reference Range Interpretation Comments WHITE BLOOD CELL (test code = 8.7 K/mm3 3.5-11.0 N WBC) RED BLOOD CELL (test code = RBC) 4.18 M/mm3 4.70-6.10 L HEMOGLOBIN (test code = HGB) 12.8 G/DL 10.4-14.9 N HEMATOCRIT (test code = HCT) 39.6 % 31.5-44.1 N MEAN CELL VOLUME (test code = 94.7 Fl 84.5-98.6 N MCV) MEAN CELL HGB (test code = MCH) 30.6 pg 27.0-34.2 N MEAN CELL HGB CONCETRATION (test 32.3 G/DL 31.5-34.0 N code = MCHC) RED CELL DISTRIBUTION WIDTH (test 13.7 SD 11.5-14.5 N code = RDW) PLATELET COUNT (test code = PLT) 225.0 K/mm3 150-450 N MEAN PLATELET VOLUME (test code = 10.10 fL 7.0-10.5 N MPV) NEUTROPHIL % (test code = NT%) 66.2 % 40-76 N LYMPHOCYTE % (test code = LY%) 27.1 % 20.5-51.1 N MONOCYTE % (test code = MO%) 5.8 % 1.7-9.3 N EOSINOPHIL % (test code = EO%) 0.6 % 0.0-6.0 N BASOPHIL % (test code = BA%) 0.3 % 0.0-2.0 N NEUTROPHIL # (test code = NT#) 5.73 K/mm3 1.8-7.6 N LYMPHOCYTE # (test code = LY#) 2.3 K/mm3 0.6-3.2 N MONOCYTE # (test code = MO#) 0.5 K/mm3 0.3-1.1 N EOSINOPHIL # (test code = EO#) 0.1 K/mm3 0.0-0.4 N BASOPHIL # (test code = BA#) 0.0 K/mm3 0.0-0.1 N MANUAL DIFF REQUIRED (test code = NO DIFF/SCN CRITERIA MDIFF) LACTIC ACID [id number] 17:58:00 Test Item Value Reference Range Interpretation Comments LACTIC ACID POC (test code = 1.93 MMOL/L 0.90-1.70 H LACTP) - XR ANKLE 3+V [id number] 17:50:00 Name: ABHISHEK,MARCELLE [facility] : 1970 Age/S: 49 / F [address] Unit #: [id number] Loc: [place] [address] Phys: Aletha Valerio MD Acct: [id number] Dis Date: Status: REG ER PHONE #: [phone] Exam Date: 05/07/2019 174 FAX #: Reason: ankle EXAMS: CPT: [id number] XR ANKLE 3+[place] [id number] Fluoro Time: DAP (Gy m2): Air Kerma (mGy): EXAM: XR ANKLE 3 VIEWS, LEFT INDICATION: Pain LOCATION: B2 COMPARISON: None available TECHNIQUE: AP, lateral and oblique views of the left ankle. FINDINGS: No acute fracture or dislocation is identified. There are postsurgical changes involving the medial malleolus with 2 screws noted. There are degenerative changes of the tibiotalar joint. The ankle mortise is intact. There are retrocalcaneal and plantar calcaneal views of heights. There is moderate soft tissue edema noted. IMPRESSION: No acute osseous abnormality of the left ankle. Degenerative changes of the tibiotalar joint. Moderate softtissue edema. Postsurgical changes involving the medial malleolus. at 1750 Reported and signed by: Farheen Corley M.D. CC: Aletha Valerio MD; Lisette HARGROVE PAGE 1 Signed Report [facility]: [facility] 1970 Age/S: 49 / F [id number] Unit #: [id number] Loc: [place] [address] Phys: Aletha Valerio MD Acct: [id number] Dis Date: Status: REG ER PHONE #: [phone] Exam Date: 05/07/2019 1740 FAX #: Reason:ankle EXAMS: CPT: [id number] XR ANKLE 3+[place] [address] Fluoro Time: DAP (Gy m2): Air Kerma (mGy): <Continued> Technologist: RT Charles(R)(MR) Trnscb Date/Time: 05/07/2019 (175) 16 Orig Print D/T: S: 05/07/2019 (9181) PAGE 2 Signed Report- XR CHEST 1 [id number] 17:40:00 Name: MARCELLE WEISS [facility] : 1970 Age/S: 49 / F [id number] Unit #: [id number] Loc: [place] [address] Phys: Aletha Valerio MD Acct: [id number] Dis Date: Status: REG ER PHONE #: [phone] Exam Date: 05/07/20191709 FAX #: Reason: infection EXAMS: CPT: [id number] XR CHEST 1 V 42670 Fluoro Time: DAP (Gy m2): Air Kerma (mGy): EXAM: CHEST ONE VIEW INDICATION: INFECTION LOCATION: B2 COMPARISON: CT dated April 25, 2019 TECHNIQUE: AP view of the chest FINDINGS: The heart size is normal. The lungs are clear bilaterally. The pulmonary vasculature is normal. No pneumothorax or pleural effusion is identified. The osseous structures are normal. IMPRESSION: No acute cardiopulmonary process. at 1740 Reportedand signed by: Farheen Corley M.D. CC: Aletha Valerio MD; Lisette HARGROVE PAGE 1 Signed Report Name: MARCELLE WEISS [facility] : 1970 Age/S: 49 / F [id number] Unit #: [id number] Loc: [place] [address] Phys:Aletha Valerio MD Acct: [id number] Dis Date: Status: REG ER PHONE #: [phone] Exam Date: 05/07/2019 1710 FAX #: Reason: infection EXAMS: CPT: [id number] XR CHEST1 V 01396 Fluoro Time: DAP (Gy m2): Air Kerma (mGy): <Continued> Technologist: RT Charles(R)(MR) Trnscb Date/Time: 05/07/2019 (1739) 16 Orig Print D/T: S: 05/07/2019 (762) PAGE 2 Signed ReportPROCALCITONIN (PCT)2019-04-27 03:09:00 Test Item Value Reference Range Interpretation Comments PROCALCITONIN (PCT) < 0.05 ng/mL 0.00-0.05 N PROCALCI TONIN (PCT) (test code = PROCAL) NORMAL RANGE (ADULT): <0.05 NG/ML. * a concentration < 0.5 ng/mL represent s a low risk of severe sepsis and/or septic s hock.* a concentration >2 ng/mL represent s a high risk of se mike sepsis and/or s eptic shock.Neverthel ess, concentrations <0.5 ng/mL do not ex clude aninfection, on account of loca lized infections (withoutsystemi c signs) which ca n be associated with such lowconcentratio ns, or a systemic infe ction in its initials tages (< 6 hours). Furthermore, in creased procalcitoninca n occur without infecti on. PCT concentrations between 0.5and 2.0 ng/m L should be inter preted taking into acc ount thepatient's hi story. It is recommend ed to retest PCT with in6-24 hours if any concentrations <2 ng/mL are obtai emily. PROCALCITONIN (PCT)2019-04-27 03:09:00 Test Item Value Reference Range Interpretation Comments PROCALCITONIN (PCT) < 0.05 ng/mL 0.00-0.05 PROCALCI TONIN (PCT) (test code = PROCAL) NORMAL RANGE (ADULT): <0.05 NG/ML. * a concentration < 0.5 ng/mL represent s a low risk of severe sepsis and/or septic s hock.* a concentration >2 ng/mL represent s a high risk of se mike sepsis and/or s eptic shock.Neverthel ess, concentrations <0.5 ng/mL do not ex clude aninfection, on account of loca lized infections (withoutsystemi c signs) which ca n be associated with such lowconcentratio ns, or a systemic infe ction in its initials tages (< 6 hours). Furthermore, in creased procalcitoninca n occur without infecti on. PCT concentrations between 0.5and 2.0 ng/m L should be inter preted taking into acc ount thepatient's hi story. It is recommend ed to retest PCT with in6-24 hours if any concentrations <2 ng/mL are obtai emily. SED [id number] 13:10:00 Test Item Value Reference Range Interpretation Comments SED RATE (test code = SEDW) 30 mm/hr 0-20 H [id number] 02:18:00 Test Item Value Reference Range Interpretation Comments TROPONIN-I (test < 0.015 NG/ML 0.000-0.045 N Negative: </= 0.045 code = TROPI) Positive: >/= 0.046 Correlation wit h serial results, other cardiac markers, and cl inical findings is nec essary to determine the c linical significance of this result. Quantit ative results using d ifferent methodologies s hould not be compared to one another as nume rical results may basilio yby method. Completed by Nursing: [id number] 23:37:00 Test Item Value Reference Range Interpretation Comments TROPONIN-I (test < 0.015 NG/ML 0.000-0.045 N Negative: </= 0.045 code = TROPI) Positive: >/= 0.046 Correlation wit h serial results, other cardiac markers, and cl inical findings is nec essary to determine the c linical significance of this result. Quantit ative results using d ifferent methodologies s hould not be compared to one another as nume rical results may basilio yby method. Completed by Nursing: NOCHEMISTRY 8 [id number] 22:03:00 Test Item Value Reference Range Interpretation Comments ISTAT-SODIUM (test code = NAP) mmol/L 135-146 ISTAT-POTASSIUM (test code = KP) mmol/L 3.5-4.9 ISTAT-CHLORIDE (test code = CLP) mmol/L 98-109 ISTAT-CARBON DIOXIDE (test code = mmol/L 24-29 H ISTAT-CO2) ISTAT CALCIUM IONIZED (test code = mmol/L 1.12-1.32 ISTAT-OLIVER) ISTAT-GLUCOSE (test code = GLUP) mg/dL 70-105 H ISTAT-BUN (test code = BUNP) mg/dL 8-26 N BEDSIDE CREATININE (test code = mg/dL 0.6-1.3 N CREATBED) GLOMERULAR FILTRATION RATE POC (test 71 58-135 N code = GFRBED) CHEMISTRY 8 [id number] 22:03:00 Test Item Value Reference Range Interpretation Comments ISTAT-SODIUM (test code = NAP) 138 mmol/L 135-146 N ISTAT-POTASSIUM (test code = KP) 4.2 mmol/L 3.5-4.9 N ISTAT-CHLORIDE (test code = CLP) 97 mmol/L 98-109 L ISTAT-CARBON DIOXIDE (test code = 35 mmol/L 24-29 H ISTAT-CO2) ISTAT CALCIUM IONIZED (test code 1.10 mmol/L 1.12-1.32 L = ISTAT-OLIVER) ISTAT-GLUCOSE (test code = GLUP) 116 mg/dL 70-105 H ISTAT-BUN (test code = BUNP) 9 mg/dL 8-26 N BEDSIDE CREATININE (test code = 0.9 mg/dL 0.6-1.3 N CREATBED) GLOMERULAR FILTRATION RATE POC 71 58-135 N (test code = GFRBED) - CT CHEST W/O [id number] 21:11:00 Name: MARCELLE WEISS [facility] : 1970 Age/S: 49 / F [address] Unit #: [id number] Loc: [place] [address] Phys: Uday Maya MD Acct: [id number] Dis Date: Status: ADM IN PHONE #: [phone] Exam Date: 04/25/20192042 FAX #: Reason: lung mass EXAMS: CPT: [id number] CT CHEST W/O CONTRAST 24241 Exam: CT thorax without contrast. Location: H 12 History: lung mass COMPARISON: AP chest 04/25/2019. Technique: Unenhanced slices were taken from the apices of the lungs, through the upper abdomen. Sagittal and coronal reformations were performed. One or more of the following dose reduction techniques were used: Automated exposure control,adjustment of the mA and/or kV according to patient size, and/or utilization of iterative reconstruction technique. Findings: The lungs are clear. No infiltration or effusion is seen. No mass or nodule is seen. The pulmonary vasculature is normal. Nopulmonary venous congestion or arterial hypertension is seen. The mediastinum and the pulmonary hermann are normal. No lymphadenopathy is present. The heart size is normal. No pericardial effusion is seen. A large, fixed hiatal hernia is present. The visualized upper abdominal organs are unremarkable. Spondylotic and arthritic changes are present. No incidental thyroid nodules are noted. Impression: 1. No acute disease. 2. Large, fixed hiatal hernia. 3. Otherwise unremarkable exam. at 2110 Reported and signed by: Montez Lopez M.D. PAGE 1 Signed Report (CONTINUED) Name: MARCELLE WEISS [facility] : 1970 Age/S: 49 / F [address] Unit #: [id number] Loc: [place] [address] Phys: Uday Maya MD Acct: [id number] Dis Date: Status: ADM IN PHONE #: [phone] Exam Date: 04/25/20192042 FAX #: Reason: lung mass EXAMS: CPT: [id number] CT CHEST W/O CONTRAST [address]192 <Continued> CC: Uday Maya MD; Aletha Valerio MD; Abilio Maldonado MD; Lisette HARGROVE Technologist:Robert Townsend, RT(R)(CT) CTDI: DLP: Trnscb Date/Time: 04/25/2019 (2110) [email or web address] Orig Print D/T: S: 04/25/2019 (2113) PAGE 2 Signed ReportUA RFLX MICR CULT IF INDICATED 2019-04-25 20:44:00 Test Item Value Reference Range Interpretation Comments UA COLOR (test code = COLU) YELLOW discript YEL/STRAW UA APPEARANCE (test code = CLEAR discript CLEAR APPU) UA GLUCOSE DIPSTICK (test NEGATIVE mg/dL NEG code = DGLUU) UA BILIRUBIN DIPSTICK (test NEGATIVE mg/dL NEG code = BILU) UA KETONE DIPSTICK (test NEGATIVE mg/dL NEG code = KETU) UA SPECIFIC GRAVITY (test 1.015 SG 1.005-1.030 code = SGU) UA BLOOD DIPSTICK (test NEGATIVE mg/DL NEG code = LUKASZ) UA PH DIPSTICK (test code = 8.5 pH UNITS 5.0-7.0 A GWEN) UA PROTEIN DIPSTICK (test NEGATIVE mg/dL NEG code = PROU) UA UROBILINIOGEN DIPSTICK 0.2 mg/dL <2.0 (test code = URO) UA NITRITE DIPSTICK (test NEGATIVE SCREEN NEG code = RUTH ANN) UA LEUKOCYTE ESTERASE NEGATIVE Leuk/mcL NEGATIVE DIPSTICK (test code = LEUU) UA CULTURE NEEDED? (test Criteria Culture CHK code = UACULT) Indication for culture: Dysuria/FrequencyUA RFLX MICR CULT IF INDICATED 2019-04-25 20:44:00 Test Item Value Reference Range Interpretation Comments UA COLOR (test code = COLU) YELLOW discript YEL/STRAW UA APPEARANCE (test code = CLEAR discript CLEAR APPU) UA GLUCOSE DIPSTICK (test NEGATIVE mg/dL NEG code = DGLUU) UA BILIRUBIN DIPSTICK (test NEGATIVE mg/dL NEG code = BILU) UA KETONE DIPSTICK (test NEGATIVE mg/dL NEG code = KETU) UA SPECIFIC GRAVITY (test 1.015 SG 1.005-1.030 code = SGU) UA BLOOD DIPSTICK (test NEGATIVE mg/DL NEG code = LUKASZ) UA PH DIPSTICK (test code = 8.5 pH UNITS 5.0-7.0 A GWEN) UA PROTEIN DIPSTICK (test NEGATIVE mg/dL NEG code = PROU) UA UROBILINIOGEN DIPSTICK 0.2 mg/dL <2.0 (test code = URO) UA NITRITE DIPSTICK (test NEGATIVE SCREEN NEG code = RUTH ANN) UA LEUKOCYTE ESTERASE NEGATIVE Leuk/mcL NEGATIVE DIPSTICK (test code = LEUU) Indication for culture: Dysuria/FrequencyCOMPREHENSIVE METABOLIC PANEL 2019-04-25 20:09:00 Test Item Value Reference Range Interpretation Comments SODIUM (test code = NA) 139 mmol/L 134-147 N POTASSIUM (test code = 4.2 mmol/L 3.4-5.0 N K) CHLORIDE (test code = 101 mmol/L 100-108 N CL) CARBON DIOXIDE (test 32 mmol/L 21-32 N code = CO2) ANION GAP (test code = 6.0 GAP calc 4.0-15.0 N GAP) GLUCOSE (test code = 114 MG/DL 70-110 H GLU) BLOOD UREA NITROGEN 10 MG/DL 7-18 N (test code = BUN) GLOMERULAR FILTRATION >=60 max estimate >60 RATE (test code = GFR) estGFR CREATININE (test code = 0.8 MG/DL 0.6-1.0 N CREAT) TOTAL PROTEIN (test code 6.5 G/DL 6.4-8.2 N = PROT) ALBUMIN (test code = 3.0 G/DL 3.4-5.0 L ALB) GLOBULIN (test code = 3.5 GM/dL GLOB) ALBUMIN/GLOBULIN RATIO 0.9 RATIO 1.2-2.2 L (test code = A/G) CALCIUM (test code = CA) 9.0 MG/DL 8.5-10.1 N BILIRUBIN TOTAL (test 0.10 MG/DL 0.2-1.2 L code = BILT) SGOT/AST (test code = 14 Unit/L 15-37 L AST) SGPT/ALT (test code = 20 Unit/L 12-78 N ALT) ALKALINE PHOSPHATASE 110 Unit/L 45-117 N TOTAL (test code = ALKP) CBC W/AUTO [id number] 20:01:00 Test Item Value Reference Range Interpretation Comments WHITE BLOOD CELL (test code = 7.5 K/mm3 3.5-11.0 N WBC) RED BLOOD CELL (test code = RBC) 4.21 M/mm3 4.70-6.10 L HEMOGLOBIN (test code = HGB) 13.0 G/DL 10.4-14.9 N HEMATOCRIT (test code = HCT) 41.0 % 31.5-44.1 N MEAN CELL VOLUME (test code = 97.4 Fl 84.5-98.6 N MCV) MEAN CELL HGB (test code = MCH) 30.9 pg 27.0-34.2 N MEAN CELL HGB CONCETRATION (test 31.7 G/DL 31.5-34.0 N code = MCHC) RED CELL DISTRIBUTION WIDTH (test 13.9 SD 11.5-14.5 N code = RDW) PLATELET COUNT (test code = PLT) 204.0 K/mm3 150-450 N MEAN PLATELET VOLUME (test code = 10.50 fL 7.0-10.5 N MPV) NEUTROPHIL % (test code = NT%) 53.5 % 40-76 N LYMPHOCYTE % (test code = LY%) 35.3 % 20.5-51.1 N MONOCYTE % (test code = MO%) 8.2 % 1.7-9.3 N EOSINOPHIL % (test code = EO%) 2.7 % 0.0-6.0 N BASOPHIL % (test code = BA%) 0.3 % 0.0-2.0 N NEUTROPHIL # (test code = NT#) 4.00 K/mm3 1.8-7.6 N LYMPHOCYTE # (test code = LY#) 2.6 K/mm3 0.6-3.2 N MONOCYTE # (test code = MO#) 0.6 K/mm3 0.3-1.1 N EOSINOPHIL # (test code = EO#) 0.2 K/mm3 0.0-0.4 N BASOPHIL # (test code = BA#) 0.0 K/mm3 0.0-0.1 N MANUAL DIFF REQUIRED (test code = NO DIFF/SCN CRITERIA MDIFF) TROPONIN I [id number] 19:58:00 Test Item Value Reference Range Interpretation Comments TROPONIN I RAPID 0.00 ng/mL 0.00-0.08 N - The use o f serial (test code = sampling and te sting TROPIRAP) protocol is a recommended pra ctice- An elevated tro ponin level alone is often not sufficient for diagnosis of my ocardial infarction. LACTIC ACID [id number] 19:58:00 Test Item Value Reference Range Interpretation Comments LACTIC ACID POC (test code = 1.43 MMOL/L 0.90-1.70 N LACTP) - XR CHEST 1 [id number] 19:42:00 Name: [facility]HIS[facility]ARCELLE [facility] : 1970 Age/S: 49 / F [address] Unit #: [id number] Loc: [place] [address] Phys: Aletha Valerio MD Acct: [id number] Dis Date: Status: REG ER PHONE #: [phone] Exam Date: 04/25/20191919 FAX #: Reason: Suspected Sepsis EXAMS: CPT: [id number] XR CHEST 1 V 63719 Fluoro Time: DAP (Gy m2): Air Kerma (mGy): Location: B2 EXAM: XR CHEST 1 VIEW DATE: 04/25/2019 7:09 PM INDICATION: Code sepsis COMPARISON: Chest radiograph dated 03/03/2019 TECHNIQUE: AP chest FINDINGS: Lines, tubes and hardware: None. Lungs and pleura: No focal consolidation is identified. The bilateral costophrenic sulci are sharp. No pneumothorax is identified. Pulmonary vascularity is normal. Heart and mediastinum: The heart size is normal for technique. There is a rounded opacity along the right heart border, which may represent prominent left atrium, though a mediastinal mass is not excluded. Bones: No acute bony abnormality is identified. Multilevel degenerative endplate changes are noted of the thoracic spine. IMPRESSION: No focal consolidation to suggest pneumonia. Rounded opacity along the right heart border, new compared to 03/03/2018, which may represent a prominentleft atrium, or a mediastinal mass, previously obscured by slight differences in rotation. Further evaluation may be obtained with dedicated PA and lateral examination or a CT of the chest, as clinically indicated. at 194 Reported and signed by: Aamir Sherman M.D. CC: Aletha Valerio MD; Abilio Maldonado MD; Lisette Ortiz PAGE 1 Signed Report Name: MARCELLE WEISS [facility] : 1970 Age/S: 49 / F [address] Unit #: [id number] Loc: [place] [address] Phys: Aletha Valerio MD Acct: [id number] Dis Date: Status: REG ER PHONE #: [phone] Exam Date: 04/25/20191919 FAX #: Reason: Suspected Sepsis E XAMS: CPT: [id number] XR CHEST 1 V [id number] Fluoro Time: DAP (Gy m2): Air Kerma (mGy): <Continued> Technologist: David Cole RT(R)(CT) TrnscbDate/Time: 04/25/2019 (1941) [id number] Orig Print D/T: S: 04/25/2019 (1945) PAGE 2 Signed ReportBASIC METABOLIC [id number] 06:51:00 Test Item Value Reference Range Interpretation Comments SODIUM (test code = NA) 139 mmol/L 134-147 N POTASSIUM (test code = 4.3 mmol/L 3.4-5.0 N K) CHLORIDE (test code = 104 mmol/L 100-108 N CL) CARBON DIOXIDE (test 30 mmol/L 21-32 N code = CO2) ANION GAP (test code = 5.0 GAP calc 4.0-15.0 N GAP) GLUCOSE (test code = 100 MG/DL 70-110 N GLU) BLOOD UREA NITROGEN 11 MG/DL 7-18 N (test code = BUN) GLOMERULAR FILTRATION >=60 max estimate >60 RATE (test code = GFR) estGFR CREATININE (test code = 0.6 MG/DL 0.6-1.0 N CREAT) CALCIUM (test code = CA) 8.8 MG/DL 8.5-10.1 N CBC W/AUTO [id number] 06:27:00 Test Item Value Reference Range Interpretation Comments WHITE BLOOD CELL (test code = 7.0 K/mm3 3.5-11.0 N WBC) RED BLOOD CELL (test code = RBC) 3.91 M/mm3 4.70-6.10 L HEMOGLOBIN (test code = HGB) 11.9 G/DL 10.4-14.9 N HEMATOCRIT (test code = HCT) 37.9 % 31.5-44.1 N MEAN CELL VOLUME (test code = 96.9 Fl 84.5-98.6 N MCV) MEAN CELL HGB (test code = MCH) 30.4 pg 27.0-34.2 N MEAN CELL HGB CONCETRATION (test 31.4 G/DL 31.5-34.0 L code = MCHC) RED CELL DISTRIBUTION WIDTH (test 13.9 SD 11.5-14.5 N code = RDW) PLATELET COUNT (test code = PLT) 194.0 K/mm3 150-450 N MEAN PLATELET VOLUME (test code = 10.70 fL 7.0-10.5 H MPV) NEUTROPHIL % (test code = NT%) 74.4 % 40-76 LYMPHOCYTE % (test code = LY%) 19.0 % 20.5-51.1 L MONOCYTE % (test code = MO%) 5.7 % 1.7-9.3 N EOSINOPHIL % (test code = EO%) 0.6 % 0.0-6.0 N BASOPHIL % (test code = BA%) 0.3 % 0.0-2.0 N NEUTROPHIL # (test code = NT#) 5.21 K/mm3 1.8-7.6 N LYMPHOCYTE # (test code = LY#) 1.3 K/mm3 0.6-3.2 N MONOCYTE # (test code = MO#) 0.4 K/mm3 0.3-1.1 N EOSINOPHIL # (test code = EO#) 0.0 K/mm3 0.0-0.4 N BASOPHIL # (test code = BA#) 0.0 K/mm3 0.0-0.1 N MANUAL DIFF REQUIRED (test code = NO DIFF/SCN CRITERIA MDIFF) BASIC METABOLIC [id number] 18:56:00 Test Item Value Reference Range Interpretation Comments SODIUM (test code = NA) 139 mmol/L 134-147 N POTASSIUM (test code = 4.0 mmol/L 3.4-5.0 N K) CHLORIDE (test code = 104 mmol/L 100-108 N CL) CARBON DIOXIDE (test 35 mmol/L 21-32 H code = CO2) ANION GAP (test code = 0.0 GAP calc 4.0-15.0 L GAP) GLUCOSE (test code = 76 MG/DL 70-110 N GLU) BLOOD UREA NITROGEN 8 MG/DL 7-18 N (test code = BUN) GLOMERULAR FILTRATION >=60 max estimate >60 RATE (test code = GFR) estGFR CREATININE (test code = 0.6 MG/DL 0.6-1.0 N CREAT) CALCIUM (test code = CA) 9.0 MG/DL 8.5-10.1 N BASIC METABOLIC [id number] 18:53:00 Test Item Value Reference Range Interpretation Comments SODIUM (test code = NA) 139 mmol/L 134-147 N POTASSIUM (test code = K) 4.0 mmol/L 3.4-5.0 N CHLORIDE (test code = CL) 104 mmol/L 100-108 N CARBON DIOXIDE (test code = CO2) 35 mmol/L 21-32 H ANION GAP (test code = GAP) 0.0 GAP calc 4.0-15.0 L GLUCOSE (test code = GLU) 76 MG/DL 70-110 N BLOOD UREA NITROGEN (test code = 8 MG/DL 7-18 N BUN) GLOMERULAR FILTRATION RATE (test estGFR >60 code = GFR) CREATININE (test code = CREAT) MG/DL 0.6-1.0 CALCIUM (test code = CA) 9.0 MG/DL 8.5-10.1 N CBC W/AUTO [id number] 18:52:00 Test Item Value Reference Range Interpretation Comments WHITE BLOOD CELL (test code = 6.2 K/mm3 3.5-11.0 N WBC) RED BLOOD CELL (test code = RBC) 4.22 M/mm3 4.70-6.10 L HEMOGLOBIN (test code = HGB) 13.3 G/DL 10.4-14.9 N HEMATOCRIT (test code = HCT) 41.6 % 31.5-44.1 N MEAN CELL VOLUME (test code = 98.6 Fl 84.5-98.6 N MCV) MEAN CELL HGB (test code = MCH) 31.5 pg 27.0-34.2 N MEAN CELL HGB CONCETRATION (test 32.0 G/DL 31.5-34.0 N code = MCHC) RED CELL DISTRIBUTION WIDTH (test 14.3 SD 11.5-14.5 N code = RDW) PLATELET COUNT (test code = PLT) 206.0 K/mm3 150-450 N MEAN PLATELET VOLUME (test code = 10.60 fL 7.0-10.5 H MPV) NEUTROPHIL % (test code = NT%) 63.9 % 40-76 LYMPHOCYTE % (test code = LY%) 25.2 % 20.5-51.1 N MONOCYTE % (test code = MO%) 7.0 % 1.7-9.3 N EOSINOPHIL % (test code = EO%) 3.4 % 0.0-6.0 N BASOPHIL % (test code = BA%) 0.5 % 0.0-2.0 N NEUTROPHIL # (test code = NT#) 3.94 K/mm3 1.8-7.6 N LYMPHOCYTE # (test code = LY#) 1.6 K/mm3 0.6-3.2 N MONOCYTE # (test code = MO#) 0.4 K/mm3 0.3-1.1 N EOSINOPHIL # (test code = EO#) 0.2 K/mm3 0.0-0.4 N BASOPHIL # (test code = BA#) 0.0 K/mm3 0.0-0.1 N MANUAL DIFF REQUIRED (test code = NO DIFF/SCN CRITERIA MDIFF) CBC W/AUTO [id number] 07:16:00 Test Item Value Reference Range Interpretation Comments WHITE BLOOD CELL (test code = 4.9 K/mm3 3.5-11.0 N WBC) RED BLOOD CELL (test code = RBC) 3.91 M/mm3 4.70-6.10 L HEMOGLOBIN (test code = HGB) 11.8 G/DL 10.4-14.9 N HEMATOCRIT (test code = HCT) 39.0 % 31.5-44.1 N MEAN CELL VOLUME (test code = 99.7 Fl 84.5-98.6 H MCV) MEAN CELL HGB (test code = MCH) 30.2 pg 27.0-34.2 N MEAN CELL HGB CONCETRATION (test 30.3 G/DL 31.5-34.0 L code = MCHC) RED CELL DISTRIBUTION WIDTH (test 14.4 SD 11.5-14.5 N code = RDW) PLATELET COUNT (test code = PLT) 178.0 K/mm3 150-450 N MEAN PLATELET VOLUME (test code = 10.20 fL 7.0-10.5 N MPV) NEUTROPHIL % (test code = NT%) 53.5 % 40-76 LYMPHOCYTE % (test code = LY%) 32.1 % 20.5-51.1 N MONOCYTE % (test code = MO%) 9.1 % 1.7-9.3 N EOSINOPHIL % (test code = EO%) 4.7 % 0.0-6.0 N BASOPHIL % (test code = BA%) 0.6 % 0.0-2.0 N NEUTROPHIL # (test code = NT#) 2.60 K/mm3 1.8-7.6 N LYMPHOCYTE # (test code = LY#) 1.6 K/mm3 0.6-3.2 N MONOCYTE # (test code = MO#) 0.4 K/mm3 0.3-1.1 N EOSINOPHIL # (test code = EO#) 0.2 K/mm3 0.0-0.4 N BASOPHIL # (test code = BA#) 0.0 K/mm3 0.0-0.1 N MANUAL DIFF REQUIRED (test code = NO DIFF/SCN CRITERIA MDIFF) BASIC METABOLIC [id number] 07:11:00 Test Item Value Reference Range Interpretation Comments SODIUM (test code = NA) 140 mmol/L 134-147 N POTASSIUM (test code = 4.1 mmol/L 3.4-5.0 N K) CHLORIDE (test code = 105 mmol/L 100-108 N CL) CARBON DIOXIDE (test 33 mmol/L 21-32 H code = CO2) ANION GAP (test code = 2.0 GAP calc 4.0-15.0 L GAP) GLUCOSE (test code = 89 MG/DL 70-110 N GLU) BLOOD UREA NITROGEN 7 MG/DL 7-18 N (test code = BUN) GLOMERULAR FILTRATION >=60 max estimate >60 RATE (test code = GFR) estGFR CREATININE (test code = 0.5 MG/DL 0.6-1.0 L CREAT) CALCIUM (test code = CA) 8.7 MG/DL 8.5-10.1 N BASIC METABOLIC [id number] 11:01:00 Test Item Value Reference Range Interpretation Comments SODIUM (test code = NA) 140 mmol/L 134-147 N POTASSIUM (test code = 4.2 mmol/L 3.4-5.0 N K) CHLORIDE (test code = 103 mmol/L 100-108 N CL) CARBON DIOXIDE (test 36 mmol/L 21-32 H code = CO2) ANION GAP (test code = 1.0 GAP calc 4.0-15.0 L GAP) GLUCOSE (test code = 91 MG/DL 70-110 N GLU) BLOOD UREA NITROGEN 9 MG/DL 7-18 N (test code = BUN) GLOMERULAR FILTRATION >=60 max estimate >60 RATE (test code = GFR) estGFR CREATININE (test code = 0.5 MG/DL 0.6-1.0 L CREAT) CALCIUM (test code = CA) 8.6 MG/DL 8.5-10.1 N CBC W/AUTO [id number] 10:24:00 Test Item Value Reference Range Interpretation Comments WHITE BLOOD CELL (test code = 4.9 K/mm3 3.5-11.0 N WBC) RED BLOOD CELL (test code = RBC) 3.77 M/mm3 4.70-6.10 L HEMOGLOBIN (test code = HGB) 11.5 G/DL 10.4-14.9 N HEMATOCRIT (test code = HCT) 37.1 % 31.5-44.1 N MEAN CELL VOLUME (test code = 98.4 Fl 84.5-98.6 N MCV) MEAN CELL HGB (test code = MCH) 30.5 pg 27.0-34.2 N MEAN CELL HGB CONCETRATION (test 31.0 G/DL 31.5-34.0 L code = MCHC) RED CELL DISTRIBUTION WIDTH (test 14.8 SD 11.5-14.5 H code = RDW) PLATELET COUNT (test code = PLT) 119.0 K/mm3 150-450 L MEAN PLATELET VOLUME (test code = 10.40 fL 7.0-10.5 N MPV) NEUTROPHIL % (test code = NT%) 59.8 % 40-76 N LYMPHOCYTE % (test code = LY%) 27.4 % 20.5-51.1 N MONOCYTE % (test code = MO%) 8.3 % 1.7-9.3 N EOSINOPHIL % (test code = EO%) 3.9 % 0.0-6.0 N BASOPHIL % (test code = BA%) 0.6 % 0.0-2.0 N NEUTROPHIL # (test code = NT#) 2.94 K/mm3 1.8-7.6 N LYMPHOCYTE # (test code = LY#) 1.4 K/mm3 0.6-3.2 N MONOCYTE # (test code = MO#) 0.4 K/mm3 0.3-1.1 N EOSINOPHIL # (test code = EO#) 0.2 K/mm3 0.0-0.4 N BASOPHIL # (test code = BA#) 0.0 K/mm3 0.0-0.1 N MANUAL DIFF REQUIRED (test code = NO DIFF/SCN CRITERIA MDIFF) BASIC METABOLIC [id number] 05:56:00 Test Item Value Reference Range Interpretation Comments SODIUM (test code = NA) 140 mmol/L 134-147 N POTASSIUM (test code = 4.0 mmol/L 3.4-5.0 N K) CHLORIDE (test code = 104 mmol/L 100-108 N CL) CARBON DIOXIDE (test 35 mmol/L 21-32 H code = CO2) ANION GAP (test code = 1.0 GAP calc 4.0-15.0 L GAP) GLUCOSE (test code = 87 MG/DL 70-110 N GLU) BLOOD UREA NITROGEN 9 MG/DL 7-18 N (test code = BUN) GLOMERULAR FILTRATION >=60 max estimate >60 RATE (test code = GFR) estGFR CREATININE (test code = 0.5 MG/DL 0.6-1.0 L CREAT) CALCIUM (test code = CA) 8.8 MG/DL 8.5-10.1 N CBC W/AUTO [id number] 05:51:00 Test Item Value Reference Range Interpretation Comments WHITE BLOOD CELL (test code = 5.9 K/mm3 3.5-11.0 N WBC) RED BLOOD CELL (test code = RBC) 3.93 M/mm3 4.70-6.10 L HEMOGLOBIN (test code = HGB) 11.9 G/DL 10.4-14.9 N HEMATOCRIT (test code = HCT) 38.7 % 31.5-44.1 N MEAN CELL VOLUME (test code = 98.5 Fl 84.5-98.6 N MCV) MEAN CELL HGB (test code = MCH) 30.3 pg 27.0-34.2 N MEAN CELL HGB CONCETRATION (test 30.7 G/DL 31.5-34.0 L code = MCHC) RED CELL DISTRIBUTION WIDTH (test 14.9 SD 11.5-14.5 H code = RDW) PLATELET COUNT (test code = PLT) 186.0 K/mm3 150-450 N MEAN PLATELET VOLUME (test code = 10.30 fL 7.0-10.5 N MPV) NEUTROPHIL % (test code = NT%) 55.2 % 40-76 N LYMPHOCYTE % (test code = LY%) 31.5 % 20.5-51.1 N MONOCYTE % (test code = MO%) 8.4 % 1.7-9.3 N EOSINOPHIL % (test code = EO%) 4.4 % 0.0-6.0 N BASOPHIL % (test code = BA%) 0.5 % 0.0-2.0 N NEUTROPHIL # (test code = NT#) 3.23 K/mm3 1.8-7.6 N LYMPHOCYTE # (test code = LY#) 1.8 K/mm3 0.6-3.2 N MONOCYTE # (test code = MO#) 0.5 K/mm3 0.3-1.1 N EOSINOPHIL # (test code = EO#) 0.3 K/mm3 0.0-0.4 N BASOPHIL # (test code = BA#) 0.0 K/mm3 0.0-0.1 N MANUAL DIFF REQUIRED (test code = NO DIFF/SCN CRITERIA MDIFF) CBC W/AUTO [id number] 06:08:00 Test Item Value Reference Range Interpretation Comments WHITE BLOOD CELL (test code = 6.1 K/mm3 3.5-11.0 N WBC) RED BLOOD CELL (test code = RBC) 4.04 M/mm3 4.70-6.10 L HEMOGLOBIN (test code = HGB) 12.1 G/DL 10.4-14.9 N HEMATOCRIT (test code = HCT) 39.9 % 31.5-44.1 N MEAN CELL VOLUME (test code = 98.8 Fl 84.5-98.6 H MCV) MEAN CELL HGB (test code = MCH) 30.0 pg 27.0-34.2 N MEAN CELL HGB CONCETRATION (test 30.3 G/DL 31.5-34.0 L code = MCHC) RED CELL DISTRIBUTION WIDTH (test 15.4 SD 11.5-14.5 H code = RDW) PLATELET COUNT (test code = PLT) 173.0 K/mm3 150-450 N MEAN PLATELET VOLUME (test code = 10.20 fL 7.0-10.5 N MPV) NEUTROPHIL % (test code = NT%) 57.3 % 40-76 N LYMPHOCYTE % (test code = LY%) 30.9 % 20.5-51.1 N MONOCYTE % (test code = MO%) 7.7 % 1.7-9.3 N EOSINOPHIL % (test code = EO%) 3.6 % 0.0-6.0 N BASOPHIL % (test code = BA%) 0.5 % 0.0-2.0 N NEUTROPHIL # (test code = NT#) 3.50 K/mm3 1.8-7.6 N LYMPHOCYTE # (test code = LY#) 1.9 K/mm3 0.6-3.2 N MONOCYTE # (test code = MO#) 0.5 K/mm3 0.3-1.1 N EOSINOPHIL # (test code = EO#) 0.2 K/mm3 0.0-0.4 N BASOPHIL # (test code = BA#) 0.0 K/mm3 0.0-0.1 N MANUAL DIFF REQUIRED (test code = NO DIFF/SCN CRITERIA MDIFF) BASIC METABOLIC [id number] 05:55:00 Test Item Value Reference Range Interpretation Comments SODIUM (test code = NA) 138 mmol/L 134-147 N POTASSIUM (test code = 3.9 mmol/L 3.4-5.0 N K) CHLORIDE (test code = 104 mmol/L 100-108 N CL) CARBON DIOXIDE (test 33 mmol/L 21-32 H code = CO2) ANION GAP (test code = 1.0 GAP calc 4.0-15.0 L GAP) GLUCOSE (test code = 91 MG/DL 70-110 N GLU) BLOOD UREA NITROGEN 12 MG/DL 7-18 N (test code = BUN) GLOMERULAR FILTRATION >=60 max estimate >60 RATE (test code = GFR) estGFR CREATININE (test code = 0.5 MG/DL 0.6-1.0 L CREAT) CALCIUM (test code = CA) 9.0 MG/DL 8.5-10.1 N VANCOMYCIN [id number] 14:35:00 Test Item Value Reference Range Interpretation Comments VANCOMYCIN TROUGH (test code = 17.4 mcG/ML 10-20 N VANCT) BASIC METABOLIC [id number] 06:49:00 Test Item Value Reference Range Interpretation Comments SODIUM (test code = NA) 140 mmol/L 134-147 N POTASSIUM (test code = 4.8 mmol/L 3.4-5.0 N K) CHLORIDE (test code = 104 mmol/L 100-108 N CL) CARBON DIOXIDE (test 35 mmol/L 21-32 H code = CO2) ANION GAP (test code = 1.0 GAP calc 4.0-15.0 L GAP) GLUCOSE (test code = 90 MG/DL 70-110 N GLU) BLOOD UREA NITROGEN 10 MG/DL 7-18 N (test code = BUN) GLOMERULAR FILTRATION >=60 max estimate >60 RATE (test code = GFR) estGFR CREATININE (test code = 0.5 MG/DL 0.6-1.0 L CREAT) CALCIUM (test code = CA) 8.5 MG/DL 8.5-10.1 N CBC W/AUTO [id number] 06:44:00 Test Item Value Reference Range Interpretation Comments WHITE BLOOD CELL (test code = 6.6 K/mm3 3.5-11.0 N WBC) RED BLOOD CELL (test code = RBC) 4.05 M/mm3 4.70-6.10 L HEMOGLOBIN (test code = HGB) 12.1 G/DL 10.4-14.9 N HEMATOCRIT (test code = HCT) 39.9 % 31.5-44.1 N MEAN CELL VOLUME (test code = 98.5 Fl 84.5-98.6 N MCV) MEAN CELL HGB (test code = MCH) 29.9 pg 27.0-34.2 N MEAN CELL HGB CONCETRATION (test 30.3 G/DL 31.5-34.0 L code = MCHC) RED CELL DISTRIBUTION WIDTH (test 15.7 SD 11.5-14.5 H code = RDW) PLATELET COUNT (test code = PLT) 206.0 K/mm3 150-450 N MEAN PLATELET VOLUME (test code = 9.80 fL 7.0-10.5 N MPV) NEUTROPHIL % (test code = NT%) 54.8 % 40-76 N LYMPHOCYTE % (test code = LY%) 31.8 % 20.5-51.1 N MONOCYTE % (test code = MO%) 8.4 % 1.7-9.3 N EOSINOPHIL % (test code = EO%) 4.2 % 0.0-6.0 N BASOPHIL % (test code = BA%) 0.8 % 0.0-2.0 N NEUTROPHIL # (test code = NT#) 3.63 K/mm3 1.8-7.6 N LYMPHOCYTE # (test code = LY#) 2.1 K/mm3 0.6-3.2 N MONOCYTE # (test code = MO#) 0.6 K/mm3 0.3-1.1 N EOSINOPHIL # (test code = EO#) 0.3 K/mm3 0.0-0.4 N BASOPHIL # (test code = BA#) 0.1 K/mm3 0.0-0.1 N MANUAL DIFF REQUIRED (test code = NO DIFF/SCN CRITERIA MDIFF) - US GUIDANCE [facility] [id number] 13:25:00 Name: MARCELLE WEISS [facility] : 1970 Age/S: 49 / F [address] Unit #: [id number] Loc: [place] [address] Phys: Theodore Gonzalez MD Acct: [id number] Dis Date: Status: ADM IN PHONE #: [phone] Exam Date: 03/29/2019 1550 FAX #: Reason: PICC LINE PLACEMENT EXAMS: CPT: [id number] US GUIDANCE VASC ACCESS 04486 Examination: PICC line insertion Location code: S17 Comparison: None cutter operator brick: Tamra Space Operations Officer: None Sedation: None Anesthesia: 1% lidocaine subcutaneous Complications: None Discussion: Evaluation is being performed for venous access. Long-term venous access was unable to be determined by the ordering physician, request for PICC line placement submitted. Prior to the evaluation, sonographic interrogation demonstrates a patent basilic, documented and stored for the patient's record. The right arm was prepped and draped in the usual sterile fashion. Maximal barrier sterile technique was utilized for this evaluation. Under ultrasound guidance, 1% lidocaine was infiltrated in the subcutaneous soft tissue surrounding the PICC line insertion site into the basilic vein. 22-gauge needle was advanced to the level ofthe basilic vein lumen followed by advancement of a 0.018 inch wire without difficulty.Small dermatotomy was made. Peel-away sheath was placed. The catheter was cut to 45 cm and advanced without difficulty to the level of the superior vena cava, confirming the position under fluoroscopy. The PICC line dual-lumen was subsequently flushed with saline. ThePICC line was subsequently secured to the skin with a StatLock device. Tegaderm was placed. Patient tolerated this procedure without complication. Vital signs were monitored before, during, and immediately following the evaluation with nursing staff present. I was present during this procedure for a total of 15 minutes. Total fluoroscopic time is 6seconds. PAGE 1 Signed Report (CONTINUED) Name: MARCELLE WEISS [facility] : 1970 Age/S: 49 /F [address] [facility] Unit #: [id number] Loc: [place] [address] Phys: Theodore Gonzalez MD Acct: [id number] Dis Date: Status: ADM IN PHONE #: [phone] Exam Date: 03/29/2019 1550 FAX #: Reason: PICC LINE PLACEMENT EXAMS: CPT: [id number] US GUIDANCE VASC ACCESS 56495 <Continued> Impression: Successful ultrasound and fluoroscopic guided right basilic PICC line placement. at 1325 Reported and signed by: Camacho Barboza M.D. CC: Theodore Gonzalez MD; Adele York MD Technologist: Esthela Krishnamurthy, RT(R),RDMS(AB) Trnscb Date/Time: 03/29/2019 (1325) [id number] PAGE 2 Signed Report Name: MARCELLE WEISS [place] : 1970 Age/S: 49 / F [address] Unit #: [id number] Loc: [place] [address] Phys: Theodore Gonzalez MD Acct: [id number] Dis Date: Status: ADM IN PHONE #: [phone] Exam Date: 03/29/2019 1550 FAX #: Reason: PICC LINE PLACEMENT EXAMS: CPT: [id number] US GUIDANCE VASC ACCESS 53269 <Continued> Orig Print D/T: S: 03/29/2019 (2571) Probe: PAGE 3 Signed Report- FLUORO GUID CTRL ACC [id number] 13:25:00 [facility] [place] [facility] 1970 Age/S: 49 / F [address] Unit #: [id number] Loc: [place] [address] Phys: Bettye Mullins MD Acct: [id number] Dis Date: Status: ADM IN PHONE #: [phone] Exam Date: 03/29/2019 1301 FAX #: Reason: prolonged antibx EXAMS: CPT: [id number] FLUORO GUID CTRL ACC DEV 62428 Fluoro Time: DAP (Gy m2): Air Kerma (mGy): Examination: PICC line insertion Location code: S17 Comparison: None cutter operator brick: Tamra Space Operations Officer: None Sedation: None Anesthesia: 1% lidocaine subcutaneous Complications: None Discussion: Evaluation is being performed for venous access. Long-term venous access was unable to be determined by the ordering physician, request for PICC line placement submitted. Prior to the evaluation, sonographicinterrogation demonstrates a patent basilic, documented and stored for the patient's record. The right arm was prepped and draped in the usual sterile fashion. Maximal barrier sterile technique was utilized for this evaluation. Under ultrasound guidance, 1% lidocaine was infiltrated in the subcutaneous soft tissue surrounding the PICC line insertion site into the basilic vein. 22-gauge needle was advanced to the level of the basilic vein lumen followed by advancement of a 0.018 inch wire without difficulty. Small dermatotomy was made. Peel- away sheath was placed. The catheter was cut to 45 cm and advanced without difficulty to the level of the superior vena cava, confirming the position under fluoroscopy. The PICC line dual-lumen was subsequently flushed with saline. The PICC line was subsequently secured to the skin with a StatLock device. Tegaderm was placed. Patient tolerated this procedure without complication. Vital signs were monitored before, during, and immediately following the evaluation with nursing staff present. I was present during this procedure for a total of 15 minutes. Total fluoroscopic time is 6 seconds. Impression: PAGE 1 Signed Report (CONTINUED) Name: MARCELLE WEISS [facility] : 1970 Age/S: 49 / F [address] [facility] Unit #: [id number] Loc: [place] [address] Phys: Bettye Mullins MD Acct: [id number] DisDate: Status: ADM IN PHONE #: [phone] Exam Date: 03/29/2019 1301 FAX #: Reason: prolonged antibx EXAMS: CPT: [id number] GUID CTRL ACC DEV 69977 Fluoro Time: DAP (Gy m2): Air Kerma (mGy): <Continued> Successful ultrasound and fluoroscopic guided right basilic PICC line placement. at 1325 Reported and signed by: Camacho Barboza M.D. CC: Theodore Gonzalez MD; Bettye Mullins MD; Adele York MD PAGE 2 Signed Report Name:MARCELLE WEISS [facility] : 1970 Age/S: 49 / F [address] Unit #: [id number] Loc: [place] [address] Phys: Bettye Mullins MD Acct: [id number] Dis Date: Status: ADM IN PHONE #: [phone] Exam Date: 03/29/2019 1301 FAX #: Reason: prolonged antibx EXAMS: CPT: [id number] FLUORO GUID CTRL ACC DEV 80850 Fluoro Time: DAP(Gy m2): Air Kerma (mGy): <Continued> Technologist: Ashlyn Maldonado, RT(R)(MR) Trnscb Date/Time: 03/29/2019 (0465) [id number] Orig Print D/T: S: 03/29/2019 (0685) PAGE 3 Signed ReportVANCOMYCIN [id number] 00:16:00 Test Item Value Reference Range Interpretation Comments VANCOMYCIN TROUGH (test code = 20.7 mcG/ML 10-20 H VANCT) BASIC METABOLIC [id number] 09:06:00 Test Item Value Reference Range Interpretation Comments SODIUM (test code = NA) 142 mmol/L 134-147 N POTASSIUM (test code = 3.9 mmol/L 3.4-5.0 N K) CHLORIDE (test code = 107 mmol/L 100-108 N CL) CARBON DIOXIDE (test 32 mmol/L 21-32 N code = CO2) ANION GAP (test code = 3.0 GAP calc 4.0-15.0 L GAP) GLUCOSE (test code = 72 MG/DL 70-110 N GLU) BLOOD UREA NITROGEN 9 MG/DL 7-18 N (test code = BUN) GLOMERULAR FILTRATION >=60 max estimate >60 RATE (test code = GFR) estGFR CREATININE (test code = 0.6 MG/DL 0.6-1.0 N CREAT) CALCIUM (test code = CA) 8.6 MG/DL 8.5-10.1 N CBC W/AUTO [id number] 08:47:00 Test Item Value Reference Range Interpretation Comments WHITE BLOOD CELL (test code = 6.2 K/mm3 3.5-11.0 N WBC) RED BLOOD CELL (test code = RBC) 4.14 M/mm3 4.70-6.10 L HEMOGLOBIN (test code = HGB) 12.3 G/DL 10.4-14.9 N HEMATOCRIT (test code = HCT) 40.6 % 31.5-44.1 N MEAN CELL VOLUME (test code = 98.1 Fl 84.5-98.6 N MCV) MEAN CELL HGB (test code = MCH) 29.7 pg 27.0-34.2 N MEAN CELL HGB CONCETRATION (test 30.3 G/DL 31.5-34.0 L code = MCHC) RED CELL DISTRIBUTION WIDTH (test 16.2 SD 11.5-14.5 H code = RDW) PLATELET COUNT (test code = PLT) 228.0 K/mm3 150-450 N MEAN PLATELET VOLUME (test code = 9.70 fL 7.0-10.5 N MPV) NEUTROPHIL % (test code = NT%) 59.2 % 40-76 N LYMPHOCYTE % (test code = LY%) 30.5 % 20.5-51.1 N MONOCYTE % (test code = MO%) 8.7 % 1.7-9.3 N EOSINOPHIL % (test code = EO%) 1.3 % 0.0-6.0 N BASOPHIL % (test code = BA%) 0.3 % 0.0-2.0 N NEUTROPHIL # (test code = NT#) 3.66 K/mm3 1.8-7.6 N LYMPHOCYTE # (test code = LY#) 1.9 K/mm3 0.6-3.2 N MONOCYTE # (test code = MO#) 0.5 K/mm3 0.3-1.1 N EOSINOPHIL # (test code = EO#) 0.1 K/mm3 0.0-0.4 N BASOPHIL # (test code = BA#) 0.0 K/mm3 0.0-0.1 N MANUAL DIFF REQUIRED (test code = NO DIFF/SCN CRITERIA MDIFF) Comment: postop- XR FLUOROSCOPY 0-60 [id number] 15:46:00 Name: MARCELLE WEISS [facility] : 1970 Age/S: 49 / F [address] Unit #: [id number] Loc: [place] [address] Phys: Abilio Maldonado MD Acct: [id number] Dis Date: Status: CAN [facility] PHONE #: [phone] Exam Date: 03/27/2019 0940 FAX #: Reason: LEFT ANKLE I D WITH ANTIBIOTIC BEADS EXAMS: CPT: [id number] XR FLUOROSCOPY 0-60 MIN 17086 Fluoro Time: 4 SEC DAP (Gy m2): Air Kerma (mGy): Examination: Operative fluoroscopy Location code: S17 Comparison: None Discussion: Clinical history is remarkable for left ankle IND, antibody beads. 4.4 seconds fluoroscopic time is utilized. Antibiotic beads are placed along the fibula. Surgical screws are present through the medial malleolus. Impression: Please refer to the operative report. at 1547 Reported and signed by: Camacho Barboza M.D. CC: Abilio Maldonado MD PAGE 1 Signed Report Name: MARCELLE WEISS [facility] : 1970 Age/S: 49 / F [address] Unit #: [id number] Loc: [place] [address] Phys: Abilio Maldonado MD Acct: [id number] Dis Date: Status: CAN [facility] PHONE #: [phone] Exam Date: 03/27/2019 0940 FAX #: Reason: LEFT ANKLE I D WITH ANTIBIOTIC BEADS EXAMS: CPT: [id number] XR FLUOROSCOPY 0-60 MIN 49134 Fluoro Time: 4 SEC DAP (Gy m2): Air Kerma (mGy): <Continued> Technologist: Lisa Machuca, RT(R) Trnscb Date/Time: 03/27/2019 (1544) [id number] Orig Print D/T: S: 03/27/2019 (3182) PAGE 2 Signed ReportUR HCG [id number] 06:57:00 Test Item Value Reference Range Interpretation Comments UR HCG QUAL (test code = HCGQLU) NEGATIVE NEGATIVE UA RFLX MICR CULT IF [id number] 06:54:00 Test Item Value Reference Range Interpretation Comments UA COLOR (test code = COLU) YELLOW discript YEL/STRAW UA APPEARANCE (test code = CLEAR discript CLEAR APPU) UA GLUCOSE DIPSTICK (test NEGATIVE mg/dL NEG code = DGLUU) UA BILIRUBIN DIPSTICK (test NEGATIVE mg/dL NEG code = BILU) UA KETONE DIPSTICK (test NEGATIVE mg/dL NEG code = KETU) UA SPECIFIC GRAVITY (test 1.010 SG 1.005-1.030 code = SGU) UA BLOOD DIPSTICK (test NEGATIVE mg/DL NEG code = LUKASZ) UA PH DIPSTICK (test code = 6.5 pH UNITS 5.0-7.0 GWEN) UA PROTEIN DIPSTICK (test NEGATIVE mg/dL NEG code = PROU) UA UROBILINIOGEN DIPSTICK 0.2 mg/dL <2.0 (test code = URO) UA NITRITE DIPSTICK (test NEGATIVE SCREEN NEG code = RUTH ANN) UA LEUKOCYTE ESTERASE NEGATIVE Leuk/mcL NEGATIVE DIPSTICK (test code = LEUU) UA CULTURE NEEDED? (test Criteria Culture CHK code = UACULT) SOURCE OF URINE: CLEAN CATCHIndication for culture: Flank PainUA RFLX MICR CULT IF [id number] 06:54:00 Test Item Value Reference Range Interpretation Comments UA COLOR (test code = YELLOW discript YEL/STRAW COLU) UA APPEARANCE (test code CLEAR discript CLEAR = APPU) UA GLUCOSE DIPSTICK (test NEGATIVE mg/dL NEG code = DGLUU) UA BILIRUBIN DIPSTICK NEGATIVE mg/dL NEG (test code = BILU) UA KETONE DIPSTICK (test NEGATIVE mg/dL NEG code = KETU) UA SPECIFIC GRAVITY (test 1.010 SG 1.005-1.030 code = SGU) UA BLOOD DIPSTICK (test NEGATIVE mg/DL NEG code = LUKASZ) UA PH DIPSTICK (test code 6.5 pH UNITS 5.0-7.0 = GWEN) UA PROTEIN DIPSTICK (test NEGATIVE mg/dL NEG code = PROU) UA UROBILINIOGEN DIPSTICK 0.2 mg/dL <2.0 (test code = URO) UA NITRITE DIPSTICK (test NEGATIVE SCREEN NEG code = RUTH ANN) UA LEUKOCYTE ESTERASE NEGATIVE Leuk/mcL NEGATIVE DIPSTICK (test code = LEUU) UA CULTURE NEEDED? (test NO, WBC<10 Criteria Culture CHK code = UACULT) SOURCE OF URINE: CLEAN CATCHIndication for culture: Flank PainBASIC METABOLIC [id number] 08:09:00 Test Item Value Reference Range Interpretation Comments SODIUM (test code = NA) 140 mmol/L 134-147 N POTASSIUM (test code = 4.1 mmol/L 3.4-5.0 N K) CHLORIDE (test code = 100 mmol/L 100-108 N CL) CARBON DIOXIDE (test 38 mmol/L 21-32 H code = CO2) ANION GAP (test code = 2.0 GAP calc 4.0-15.0 L GAP) GLUCOSE (test code = 89 MG/DL 70-110 N GLU) BLOOD UREA NITROGEN 9 MG/DL 7-18 N (test code = BUN) GLOMERULAR FILTRATION >=60 max estimate >60 RATE (test code = GFR) estGFR CREATININE (test code = 0.6 MG/DL 0.6-1.0 N CREAT) CALCIUM (test code = CA) 8.9 MG/DL 8.5-10.1 N VITAMIN D [id number] 08:09:00 Test Item Value Reference Range Interpretation Comments VITAMIN D 33.2 ng/mL 30.0-100.0 Vitamin D defic iency has 25-HYDROXY (test been define d by the code = VITD25) [facility] edicine and an Endocrine So [facility] practice guidel ine as alevel of serum 25-OH vitamin D less than 20 ng/mL (1,2).The Endocrine Society went on to further define vitamin Dinsufficiency as a level between 21 and 29 ng/mL (2).1. IOM (Ins titute of Medicine). 2010 . Dietary reference int akes for calcium and D. [place]: The [employer] .2. Caitlin MF, Jerrell [place], Melida-Michael i ROLLINS, et al. Evaluatio n, treatment, and prevention of vitamin D deficiency: an Endocrine Society clinica l practice guideline. ALLY EM. 2010; 96(7):1911-30.P erformed At: [facility] [id number] [place], [place] [id number] Abilio Rosales MD Ph:[phone] CBC W/AUTO [id number] 13:29:00 Test Item Value Reference Range Interpretation Comments WHITE BLOOD CELL (test code = 6.4 K/mm3 3.5-11.0 N WBC) RED BLOOD CELL (test code = RBC) 4.36 M/mm3 4.70-6.10 L HEMOGLOBIN (test code = HGB) 12.8 G/DL 10.4-14.9 N HEMATOCRIT (test code = HCT) 42.6 % 31.5-44.1 N MEAN CELL VOLUME (test code = 97.7 Fl 84.5-98.6 N MCV) MEAN CELL HGB (test code = MCH) 29.4 pg 27.0-34.2 N MEAN CELL HGB CONCETRATION (test 30.0 G/DL 31.5-34.0 L code = MCHC) RED CELL DISTRIBUTION WIDTH (test 18.0 SD 11.5-14.5 H code = RDW) PLATELET COUNT (test code = PLT) 212.0 K/mm3 150-450 N MEAN PLATELET VOLUME (test code = 10.40 fL 7.0-10.5 N MPV) NEUTROPHIL % (test code = NT%) 67.6 % 40-76 N LYMPHOCYTE % (test code = LY%) 23.2 % 20.5-51.1 N MONOCYTE % (test code = MO%) 7.4 % 1.7-9.3 N EOSINOPHIL % (test code = EO%) 1.6 % 0.0-6.0 N BASOPHIL % (test code = BA%) 0.2 % 0.0-2.0 N NEUTROPHIL # (test code = NT#) 4.33 K/mm3 1.8-7.6 N LYMPHOCYTE # (test code = LY#) 1.5 K/mm3 0.6-3.2 N MONOCYTE # (test code = MO#) 0.5 K/mm3 0.3-1.1 N EOSINOPHIL # (test code = EO#) 0.1 K/mm3 0.0-0.4 N BASOPHIL # (test code = BA#) 0.0 K/mm3 0.0-0.1 N MANUAL DIFF REQUIRED (test code = NO DIFF/SCN CRITERIA MDIFF) SED [id number] 13:29:00 Test Item Value Reference Range Interpretation Comments SED RATE (test code = SEDW) 10 mm/hr 0-20 N URINALYSIS [id number] 13:12:00 Test Item Value Reference Range Interpretation Comments UA GLUCOSE DIPSTICK (test NEGATIVE mg/dL NEG code = DGLUU) UA BILIRUBIN DIPSTICK (test NEGATIVE mg/dL NEG code = BILU) UA KETONE DIPSTICK (test NEGATIVE mg/dL NEG code = KETU) UA SPECIFIC GRAVITY (test 1.010 SG 1.005-1.030 code = SGU) UA BLOOD DIPSTICK (test NEGATIVE mg/DL NEG code = LUKASZ) UA PH DIPSTICK (test code = 7.5 pH UNITS 5.0-7.0 A GWEN) UA PROTEIN DIPSTICK (test NEGATIVE mg/dL NEG code = PROU) UA UROBILINIOGEN DIPSTICK 0.2 mg/dL <2.0 (test code = URO) UA NITRITE DIPSTICK (test NEGATIVE SCREEN NEG code = RUTH ANN) UA LEUKOCYTE ESTERASE NEGATIVE Leuk/mcL NEGATIVE DIPSTICK (test code = LEUU) Urine Specimen Type: Clean CatchC REACTIVE [id number] 12:47:00 Test Item Value Reference Range Interpretation Comments C REACTIVE PROTEIN (test code = 1.260 MG/DL 0.000-0.3 H CRP) BASIC METABOLIC [id number] 12:46:00 Test Item Value Reference Range Interpretation Comments SODIUM (test code = NA) 140 mmol/L 134-147 N POTASSIUM (test code = 4.1 mmol/L 3.4-5.0 N K) CHLORIDE (test code = 100 mmol/L 100-108 N CL) CARBON DIOXIDE (test 38 mmol/L 21-32 H code = CO2) ANION GAP (test code = 2.0 GAP calc 4.0-15.0 L GAP) GLUCOSE (test code = 89 MG/DL 70-110 N GLU) BLOOD UREA NITROGEN 9 MG/DL 7-18 N (test code = BUN) GLOMERULAR FILTRATION >=60 max estimate >60 RATE (test code = GFR) estGFR CREATININE (test code = 0.6 MG/DL 0.6-1.0 N CREAT) CALCIUM (test code = CA) 8.9 MG/DL 8.5-10.1 N VITAMIN D [id number] 12:46:00 Test Item Value Reference Range Interpretation Comments VITAMIN D 25-HYDROXY (test code = VITD25) PROTHROMBIN [id number] 12:33:00 Test Item Value Reference Range Interpretation Comments PT PATIENT (test code = PTP) 11.4 SECONDS 9.3-12.9 N INTERNATIONAL NORMAL RATIO 0.99 INR Unit 0.8-1.2 N (test code = INR) THROMBOPLASTIN TIME [id number] 12:33:00 Test Item Value Reference Range Interpretation Comments THROMBOPLASTIN TIME PARTIAL 29.0 SECONDS 26-35 N (test code = PTT) CBC W/AUTO [id number] 12:32:00 Test Item Value Reference Range Interpretation Comments WHITE BLOOD CELL (test code = 6.4 K/mm3 3.5-11.0 N WBC) RED BLOOD CELL (test code = RBC) 4.36 M/mm3 4.70-6.10 L HEMOGLOBIN (test code = HGB) 12.8 G/DL 10.4-14.9 N HEMATOCRIT (test code = HCT) 42.6 % 31.5-44.1 N MEAN CELL VOLUME (test code = 97.7 Fl 84.5-98.6 N MCV) MEAN CELL HGB (test code = MCH) 29.4 pg 27.0-34.2 N MEAN CELL HGB CONCETRATION (test 30.0 G/DL 31.5-34.0 L code = MCHC) RED CELL DISTRIBUTION WIDTH (test 18.0 SD 11.5-14.5 H code = RDW) PLATELET COUNT (test code = PLT) 212.0 K/mm3 150-450 N MEAN PLATELET VOLUME (test code = 10.40 fL 7.0-10.5 N MPV) NEUTROPHIL % (test code = NT%) 67.6 % 40-76 N LYMPHOCYTE % (test code = LY%) 23.2 % 20.5-51.1 N MONOCYTE % (test code = MO%) 7.4 % 1.7-9.3 N EOSINOPHIL % (test code = EO%) 1.6 % 0.0-6.0 N BASOPHIL % (test code = BA%) 0.2 % 0.0-2.0 N NEUTROPHIL # (test code = NT#) 4.33 K/mm3 1.8-7.6 N LYMPHOCYTE # (test code = LY#) 1.5 K/mm3 0.6-3.2 N MONOCYTE # (test code = MO#) 0.5 K/mm3 0.3-1.1 N EOSINOPHIL # (test code = EO#) 0.1 K/mm3 0.0-0.4 N BASOPHIL # (test code = BA#) 0.0 K/mm3 0.0-0.1 N MANUAL DIFF REQUIRED (test code = NO DIFF/SCN CRITERIA MDIFF) SED [id number] 12:32:00 Test Item Value Reference Range Interpretation Comments SED RATE (test code = SEDW) mm/hr 0-20 - XR CHEST 1 [id number] 12:00:00 Name: MARCELLE WEISS [facility] : 1970 Age/S: 49 / F [address] Unit #: [id number] Loc: [place] [address] Phys: Abilio Maldonado MD Acct: [id number] Dis Date: Status: PRE SDC PHONE #: [phone] Exam Date: 03/03/2019 1152 FAX #: Reason: PRE OP EXAMS: CPT: [id number] XR CHEST 1 V 43390 Fluoro Time: DAP (Gy m2): Air Kerma [...] Adele York MD PAGE 1 Signed Report Name: MARCELLE WEISS [facility] : 1970 Age/S: 49 / F [address] Unit #: [id number] Loc: [place] [address] Phys: Abilio Maldonado MD Acct: [id number] Dis Date: Status: PRE SDC PHONE #: [phone] Exam Date: 03/03/2019 1152 FAX #: Reason: PRE OP EXAMS: CPT: [id number] XR CHEST 1 V 19296 Fluoro Time: DAP (Gy m2): Air Kerma (mGy): <Continued> Technologist: Kevin Herrera, RT(R)(CT); Lisa Machuca RT(R) Trnscb Date/Time: 03/03/2019 (1200) [id number] Orig Print D/T: S: 03/03/2019 (2760) PAGE 2 Signed Report
[2019-11-06] MEDS ORDERED: IPRATROPIUM BROM 0.5MG/2.5ML ONE (19:34)
[2019-11-06] MEDS ORDERED: NA CHLORIDE 0.9% 1,000 ML ONE (19:34)
[2019-11-06] MEDS ORDERED: MEPERIDINE HCL 50 MG/ML ONE (19:34)
[2019-11-06] MEDS ORDERED: ALBUTEROL 2.5 MG/3 ML NEB SOL ONE (19:34)
[2019-11-06] MEDS ORDERED: PROMETHAZINE INJ 25 MG/ML AMP ONE (19:34)
[2019-11-06 19:48] LABS: Arterial Blood Carboxyhemoglob 7.2 % (0-1.5); Blood Gas Oxyhemoglobin 84.9 % (94-97); Blood O2 Saturation 92.2 % (92-98.5)
[2019-11-06 19:56] LABS: Absolute Lymphocytes (CBC) 1.3 K/uL (0.7-4.9); Basophils % 0.9 % (0-1.3); Hematocrit 36.7 % (36.0-45.0); Lymphocytes % 18.9 % (15.3-44.8); MPV 9.5 fL (7.6-11.3); RBC Red Blood Cell Count 3.86 M/uL (3.86-4.86)
[2019-11-06 20:09] LABS: Protime INR 1.02
--- NOTE | 2019-11-06 20:12 | RAD REPORT ---
EXAM DESCRIPTION: RAD - Chest Single View - 11/06/2019 8:03 pm CLINICAL HISTORY: DYSPNEA COMPARISON: September 23 TECHNIQUE: AP portable chest image was obtained 11/06/2019 8:03 pm . FINDINGS: Lung volumes are low. Portable technique, low lung volume and large body habitus significa ntly limited chest examination. Patchy lung parenchymal opacities are present residual or recurrent f rom the prior study. Linear atelectasis seen in the mid left lung field. Cardiomegaly is present with vascular engorgement. No pneumothorax or large pleural effusion. No acute bony abnormality seen. No acute aortic findings suspected. IMPRESSION: Heart, vasculature and lung markings are all prominent, similar to comparison. Patient c ould have residual or recurrent infiltrate.
[2019-11-06 20:19] LABS: ALT/SGPT 14 U/L (12-78); AST/SGOT 12 U/L (15-37); Albumin 2.6 g/dL (3.4-5.0); Alkaline Phosphatase 123 U/L (45-117); BUN Blood Urea Nitrogen 8 mg/dL (7-18); Bicarbonate 39 mmol/L (21-32); Bilirubin Direct < 0.1 mg/dL (0-0.2); Bilirubin Total 0.1 mg/dL (0.2-1.0); Glucose Level 100 mg/dL (74-106); NT PRO-BNP 2583 pg/mL (<125); Potassium 4.6 mmol/L (3.5-5.1); Protein, Total 6.3 g/dL (6.4-8.2); Sodium Level 142 mmol/L (136-145); Troponin (Emerg Dept Use Only) < 0.02 ng/mL (0.0-0.045)
[2019-11-06] MEDS ORDERED: METHYLPREDNISOLONE 125 MG INJ ONE (20:21)
--- NOTE | 2019-11-06 21:34 | ER ---
Nurse's Notes [facility] Name: Oleg Rosenberg Age: 49 yrs Sex: Female : 1970 Arrival Date: 11/06/2019 Time: 19:00 Bed 5 Private MD: Diagnosis: Acute exacerbation COPD. Chronic back pain Presentation: 11/05 19:00 Chief complaint: EMS states: Shortness of breath x 2 days, uses home O2; pt reports jl7 baseline O2 sats on 3 lpm NC is 87-89%. Coronavirus screen: Proceed with normal triage. Patient denies a cough. Patient reports shortness of breath or difficulty breathing. Patient denies measured and/or subjective temperature greater than 100.4F prior to today's visit. Patient denies travel on a cruise ship or to a country the [facility] currently lists as an affected area. Patient denies contact with known and/or suspected case of COVID-19. Ebola Screen: No symptoms or risks identified at this time. Initial Sepsis Screen: Does the patient meet any 2 criteria? No. Patient's initial sepsis screen is negative. Does the patient have a suspected source of infection? No. Patient's initial sepsis screen is negative. Risk Assessment: Do you want to hurt yourself or someone else? Patient reports no desire to harm self or others. Onset of symptoms was November 04, 2019. Care prior to arrival: Medication(s) given: Solu-medrol 125mg IV initiated. 20 GA, in the left antecubital area. 19:00 Method Of Arrival: EMS: [facility] 7 19:00 Acuity: AAYUSH 2 jl7 Triage Assessment: 19:03 General: Appears in no apparent distress. uncomfortable, obese, Behavior is calm, jl7 cooperative, appropriate for age. Pain: Denies pain. Neuro: Level of Consciousness is awake, alert, obeys commands, Oriented to person, place, time, situation. Cardiovascular: Patient's skin is warm and dry. Respiratory: Reports shortness of breath Onset: The symptoms/episode began/occurred gradually, the patient has moderate shortness of breath. Derm: Skin is pink, warm \T\ dry. 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 - Social history:: Smoking status: Patient reports the use of cigarette tobacco products, smokes one pack cigarettes per day. Screenin:04 Abuse screen: Denies threats or abuse. Denies injuries from another. Nutritional sv screening: No deficits noted. Tuberculosis screening: No symptoms or risk factors identified. Fall Risk None identified. Assessment: 20:03 General: Appears in no apparent distress. comfortable, Behavior is calm, cooperative. mg2 Pain: Complains of pain in chest. Neuro: Level of Consciousness is awake, alert, obeys commands, Oriented to person, place, time, situation. Cardiovascular: Rhythm is regular. Respiratory: Airway is patent Trachea midline Respiratory effort is even, Respiratory pattern is regular, symmetrical, Breath sounds with wheezes in right posterior upper lobe. GI: No deficits noted. : No signs and/or symptoms were reported regarding the genitourinary system. EENT: Derm: Skin is intact, is healthy with good turgor, Skin is pink, warm \T\ dry. normal. Musculoskeletal: Circulation, motion, and sensation intact. Capillary refill < 3 seconds. 20:34 Reassessment: Patient appears in no apparent distress at this time. Patient and/or mg2 family updated on plan of care and expected duration. Pain level reassessed. Patient is alert, oriented x 3, equal unlabored respirations, skin warm/dry/pink. 21:30 Reassessment: Patient appears in no apparent distress at this time. Patient and/or mg2 family updated on plan of care and expected duration. Pain level reassessed. Patient is alert, oriented x 3, equal unlabored respirations, skin warm/dry/pink. 21:55 Reassessment: Patient states feeling better. Patient states symptoms have improved. mg2 Vital Signs: 19:00 BP 133 / 62; Pulse 73; Resp 32; Pulse Ox 89% 3 lpm ; jl7 19:05 Temp 98.9; sv 20:03 Weight 158.76 kg; mg2 20:37 BP 104 / 85; Pulse 74; Resp 25; Pulse Ox 90% on 3 lpm NC; mg2 21:30 BP 110 / 80; Pulse 71; Resp 22; Pulse Ox 91% on 3 lpm NC; mg2 ED Course: 19:00 Patient arrived in ED. jl7 19:03 Triage completed. jl7 19:04 Arm band placed on. sv 19:04 Patient has correct armband on for positive identification. Bed in low position. Call sv light in reach. Pulse ox on. NIBP on. 19:04 Maintain EMS IV. Dressing intact. Site clean \T\ dry. Gauge \T\ site: 20G L AC. sv 19:07 Michael Bradley MD is Attending Physician. pkl 19:07 El Barrett, HARDIK is Primary Nurse. mg2 20:00 XRAY Chest (1 view) In Process Unspecified. EDMS 20:04 No provider procedures requiring assistance completed. mg2 21:22 Notified ED physician of a critical lab result(s). DDIMER 889. sg 21:31 Alessandro Pereira DO is Referral Physician. pkl 22:21 IV discontinued, intact, bleeding controlled, No redness/swelling at site. Pressure mg2 dressing applied. Administered Medications: 09:45 Drug: Albuterol - atroVENT (3:1) (2.5 mg - 0.5 mg) 3 ml Route: Nebulizer; mg2 20:29 Follow up: Response: No adverse reaction mg2 19:45 Drug: Demerol 50 mg Route: IVP; Site: left antecubital; mg2 20:38 Follow up: Response: No adverse reaction mg2 19:45 Drug: Phenergan 12.5 mg Route: IVP; Site: left antecubital; mg2 20:38 Follow up: Response: No adverse reaction mg2 19:46 Drug: NS 0.9% 1000 ml Route: IV; Rate: 125 ml/hr; Site: left antecubital; mg2 21:45 Follow up: Response: No adverse reaction; IV Status: Order to discontinue infusion mg2 20:14 Drug: SOLU-Medrol 125 mg Route: IVP; Site: left antecubital; mg2 20:38 Follow up: Response: No adverse reaction mg2 Outcome: 21:33 Discharge ordered by . pkl 22:00 Patient left the ED. sg 22:00 Discharge instructions given to patient, Instructed on discharge instructions, follow mg2 up and referral plans. medication usage, Demonstrated understanding of instructions, follow-up care, medications, Prescriptions given X 3. 22:00 Discharged to home via wheelchair. mg2 22:00 Condition: stable Signatures: Dispatcher [employer] Nancy Traylor RN RN sv Gay, Steven, RN RN sg Michael Bradley MD MD pkl Sofiya Friedman RN RN jl7 El Barrett RN RN mg2 Corrections: (The following items were deleted from the chart) : 22:21 Discharged to home via wheelchair, mg2 mg2 : 22:21 Condition: stable mg2 mg2
--- NOTE | 2019-11-06 21:34 | EDPHYS ---
Physician Documentation [facility] Name: Oleg Rosenberg Age: 49 yrs Sex: Female : 1970 Arrival Date: 11/06/2019 Time: 19:00 Bed 5 Private MD: ED Physician Michael Bradley HPI: 11/05 19:24 This 49 yrs old Female presents to ER via EMS with complaints of Breathing pkl Difficulty. 19:24 The patient has shortness of breath at rest. Onset: The symptoms/episode began/occurred pkl 3 day(s) ago. Associated signs and symptoms: Pertinent positives: back pain. The patient has experienced similar episodes in the past, several times. 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 - Social history:: Smoking status: Patient reports the use of cigarette tobacco products, smokes one pack cigarettes per day. ROS: 19:24 Eyes: Negative for injury, pain, redness, and discharge, ENT: Negative for injury, pkl pain, and discharge, Neck: Negative for injury, pain, and swelling, Cardiovascular: Negative for chest pain, palpitations, and edema. 19:24 Respiratory: Positive for shortness of breath, at rest. wheezing. 19:24 Abdomen/GI: Negative for abdominal pain, nausea, vomiting, and diarrhea. 19:24 Back: Positive for pain with movement, of the lower back. 19:24 : Negative for urinary symptoms. 19:24 MS/extremity: Negative for acute changes. 19:24 Skin: Negative for rash. 19:24 Neuro: Negative for altered mental status. Exam: 19:24 Head/Face: Normocephalic, atraumatic. Eyes: Pupils equal round and reactive to light, pkl extra-ocular motions intact. Lids and lashes normal. Conjunctiva and sclera are non-icteric and not injected. Cornea within normal limits. Periorbital areas with no swelling, redness, or edema. ENT: Nares patent. No nasal discharge, no septal abnormalities noted. Tympanic membranes are normal and external auditory canals are clear. Oropharynx with no redness, swelling, or masses, exudates, or evidence of obstruction, uvula midline. Mucous membranes moist. Neck: Trachea midline, no thyromegaly or masses palpated, and no cervical lymphadenopathy. Supple, full range of motion without nuchal rigidity, or vertebral point tenderness. No Meningismus. Chest/axilla: Normal chest wall appearance and motion. Nontender with no deformity. No lesions are appreciated. Cardiovascular: Regular rate and rhythm with a normal S1 and S2. No gallops, murmurs, or rubs. Normal PMI, no JVD. No pulse deficits. 19:24 Respiratory: mild respiratory distress is noted, Respirations: normal, Breath sounds: bronchial sounds, that are moderate, are scattered, rhonchi, that are moderate, are scattered. 19:24 Abdomen/GI: Bowel sounds: normal, Palpation: abdomen is soft and non-tender, in all quadrants. 19:24 Back: pain, that is moderate, of the lower back. 19:24 : Exam negative for acute changes. 19:24 Musculoskeletal/extremity: Exam is negative for acute changes. 19:24 Skin: Exam negative for rash. 19:24 Neuro: Orientation: is normal, Mentation: is normal, Memory: is normal, Cranial nerves: grossly normal, Cerebellar function: is grossly normal, Motor: is normal, Sensation: is normal, Gait: is steady. Vital Signs: 19:00 BP 133 / 62; Pulse 73; Resp 32; Pulse Ox 89% 3 lpm ; jl7 19:05 Temp 98.9; sv 20:03 Weight 158.76 kg; mg2 20:37 BP 104 / 85; Pulse 74; Resp 25; Pulse Ox 90% on 3 lpm NC; mg2 21:30 BP 110 / 80; Pulse 71; Resp 22; Pulse Ox 91% on 3 lpm NC; mg2 MDM: 19:07 Patient medically screened. pkl 21:28 Data reviewed: vital signs, nurses notes. ED course: Patient feeling better. Wants to pkl go home. Advised to follow up with pain management for her chronic back pain. Patient understood instructions. 21:39 ED course: . pkl 21:40 ED course: D-Dimer elevated ( 889 ) . Patient said she is allergic to IV dye. Does not pkl want CT Chest PE protocol done. Said she is feeling better. Want to go home now. Advised to return if breathing is worse. Patient understood instructions. 11/05 19:22 Order name: Basic Metabolic Panel pkl 11/05 19:22 Order name: CBC with Diff; Complete Time: 21:09 pkl 11/05 19:22 Order name: LFT's pkl 11/05 19:22 Order name: Magnesium pkl 11/05 19:22 Order name: NT PRO-BNP; Complete Time: 21:09 pkl 11/05 19:22 Order name: PT-INR; Complete Time: 21:36 pkl 11/05 19:22 Order name: Troponin (emerg Dept Use Only); Complete Time: 21:09 pkl 11/05 19:22 Order name: ABG; Complete Time: 21: pkl 11/05 19:22 Order name: Blood Culture Adult (2) pkl 11/05 19:22 Order name: Lactate; Complete Time: 21:09 pkl 11/05 19:22 Order name: Procalcitonin; Complete Time: 21:09 pkl 11/05 19:23 Order name: Basic Metabolic Panel; Complete Time: 21:09 EDMS 11/05 19:23 Order name: Liver (Hepatic) Function; Complete Time: 21:09 EDMS 11/05 19:23 Order name: Magnesium; Complete Time: 21:09 EDMS 11/05 19:22 Order name: XRAY Chest (1 view); Complete Time: 21:09 pkl 11/05 19:22 Order name: EKG; Complete Time: 19:23 pkl 11/05 19:22 Order name: Cardiac monitoring; Complete Time: 20:02 pkl 11/05 19:22 Order name: EKG - Nurse/Tech; Complete Time: 20:02 pkl 11/05 19:22 Order name: IV Saline Lock; Complete Time: 20:02 pkl 11/05 19:22 Order name: Labs collected and sent; Complete Time: 20:02 pkl 11/05 19:22 Order name: O2 Per Protocol; Complete Time: 20:03 pkl 11/05 19:22 Order name: O2 Sat Monitoring; Complete Time: 20:03 pkl 11/05 21:14 Order name: D-Dimer; Complete Time: 21:36 EDMS Administered Medications: 09:45 Drug: Albuterol - atroVENT (3:1) (2.5 mg - 0.5 mg) 3 ml Route: Nebulizer; mg2 20:29 Follow up: Response: No adverse reaction mg2 19:45 Drug: Demerol 50 mg Route: IVP; Site: left antecubital; mg2 20:38 Follow up: Response: No adverse reaction mg2 19:45 Drug: Phenergan 12.5 mg Route: IVP; Site: left antecubital; mg2 20:38 Follow up: Response: No adverse reaction mg2 19:46 Drug: NS 0.9% 1000 ml Route: IV; Rate: 125 ml/hr; Site: left antecubital; mg2 21:45 Follow up: Response: No adverse reaction; IV Status: Order to discontinue infusion mg2 20:14 Drug: SOLU-Medrol 125 mg Route: IVP; Site: left antecubital; mg2 20:38 Follow up: Response: No adverse reaction mg2 Disposition: 11/06/19 21:33 Discharged to Home. Impression: Acute exacerbation COPD. Chronic back pain. - Condition is Stable. - Prescriptions for Tylenol- Codeine #3 300-30 mg Oral Tablet - take 1 tablet by ORAL route every 8 hours As needed; 20 tablet. Prednisone 20 mg Oral Tablet - take 1 tablet by ORAL route once daily for 5 days; 5 tablet. Zithromax Z- Hero 250 mg Oral Tablet - take 1 tablet by ORAL route as directed for 5 days Day 1 - take two (2) tablets one time. Day 2, 3, 4 , 5 take one (1) tablet once daily.; 6 tablet. - Medication Reconciliation Form, Thank You Letter, Antibiotic Education, Prescription Opioid Use form. - Follow up: Alessandro Pereira DO; When: 1 week; Reason: Re-evaluation by your physician. - Problem is new. - Symptoms have improved. Signatures: Dispatcher [employer] EDMS Adán Sullivan RN RN sg Michael Bradley MD MD pkl Sofiya Friedman RN RN jl7 Gardose, El, RN RN mg2 Corrections: (The following items were deleted from the chart) 21:14 21:12 D-DIMER+[id number].BRZ ordered. EDNJ EDMS 22:00 21:33 11/06/2019 21:33 Discharged to Home. Impression: Acute exacerbation COPD. Chronic sg back pain. Condition is Stable. Forms are Medication Reconciliation Form, Thank You Letter, Antibiotic Education, Prescription Opioid Use. Follow up: Alessandro Pereira; When: 1 week; Reason: Re-evaluation by your physician. Problem is new. Symptoms have improved. pkl
[2019-11-06 22:23] VITALS: TEMP 98.9
[2019-11-06 22:24] VITALS: BP 104/85; O2SAT 90
--- NOTE | 2019-11-07 10:56 | EKG ---
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
== END 2019-11-06 22:00 | disposition home or self-care (01) ==
LOC: ER 18:51
DX: J44.1 Chronic obstructive pulmonary disease with (acute) exacerbation (principal); G89.29 Other chronic pain; F17.210 Nicotine dependence, cigarettes, uncomplicated; Z88.0 Allergy status to penicillin; Z88.5 Allergy status to narcotic agent; Z88.6 Allergy status to analgesic agent; Z88.8 Allergy status to other drugs, medicaments and biological substances; Z91.041 Radiographic dye allergy status
CPT/HCPCS: 96361; 93005; 87040 ×2; 85025; 80048; 36415; 83735; 85610; 85379; 80076; 83605; 84484; 84145; 83880; 71045; 82805; 96375; 96374; 99284; J2550; J2175; J7030; J2930

== ENCOUNTER 2019-11-14 20:38 | Observation (INO) | payer OTHER ==
[2019-11-14] MEDS ORDERED: PROMETHAZINE INJ 25 MG/ML AMP ONE ×2 (21:08→23:00)
[2019-11-14] MEDS ORDERED: MEPERIDINE HCL 50 MG/ML ONE ×2 (21:08→22:05)
[2019-11-14 21:16] LABS: Absolute Lymphocytes (CBC) 1.8 K/uL (0.7-4.9); Basophils % 1.1 % (0-1.3); Hematocrit 40.8 % (36.0-45.0); Lymphocytes % 22.2 % (15.3-44.8); MPV 9.1 fL (7.6-11.3); RBC Red Blood Cell Count 4.45 M/uL (3.86-4.86)
[2019-11-14 21:27] LABS: ALT/SGPT 17 U/L (12-78); AST/SGOT 11 U/L (15-37); Albumin 3.1 g/dL (3.4-5.0); Alkaline Phosphatase 115 U/L (45-117); BUN Blood Urea Nitrogen 13 mg/dL (7-18); Bicarbonate 34 mmol/L (21-32); Bilirubin Direct < 0.1 mg/dL (0-0.2); Bilirubin Total 0.2 mg/dL (0.2-1.0); Glucose Level 88 mg/dL (74-106); Lipase 118 U/L (73-393); Potassium 4.6 mmol/L (3.5-5.1); Protein, Total 6.8 g/dL (6.4-8.2); Sodium Level 141 mmol/L (136-145)
[2019-11-14 22:10] LABS: Protime INR 0.91
[2019-11-14 22:15] LABS: Barbiturates NEGATIVE (NEGATIVE); Benzodiazepines POSITIVE (NEGATIVE); Cocaine NEGATIVE (NEGATIVE); METHAMPHETAM NEGATIVE (NEGATIVE); Methadone NEGATIVE (NEGATIVE); Opiates NEGATIVE (NEGATIVE); Phencyclidine NEGATIVE (NEGATIVE); THC Cannibis NEGATIVE (NEGATIVE)
[2019-11-14] MEDS ORDERED: PANTOPRAZOLE 40 MG INJ ONE (22:32)
--- NOTE | 2019-11-14 23:01 | EDPHYS ---
Physician Documentation [facility] Name: Oleg Rosenberg Age: 49 yrs Sex: Female : 1970 Arrival Date: 11/14/2019 Time: 20:39 Bed 5 Private MD: ED Physician Logan Saucedo HPI: 11/13 21:10 This 49 yrs old Female presents to ER via EMS with complaints of Abdominal mh7 Pain. 21:10 The patient presents with abdominal pain that is diffuse. Onset: The symptoms/episode mh7 began/occurred yesterday. The symptoms do not radiate. Associated signs and symptoms: Pertinent positives: nausea, vomiting, and diarrhea, Pertinent negatives: anorexia, chest pain, constipation, dysuria, fever, headache, hematuria, palpitations, vaginal discharge, vomiting blood. The symptoms are described as intermittent, vague, waxing/waning. Modifying factors: The symptoms are alleviated by nothing, the symptoms are aggravated by nothing. Severity of pain: At its worst the pain was moderate this morning, in the emergency department the pain is unchanged. Historical: - Allergies: 20:44 Aspirin; mg2 20:44 Dilaudid; mg2 20:44 Iodinated Contrast Media - IV Dye; mg2 20:44 Iodine; mg2 20:44 Morphine; mg2 20:44 Mucinex; mg2 20:44 NSAIDS; mg2 20:44 PENICILLINS; mg2 20:44 Zofran; mg2 - PMHx: 20:44 Asthma; Bipolar disorder; Bronchitis; COPD; Depression; kidney cancer; mg2 - PSHx: 20:44 lap band surgery and removal; mg2 - Immunization history:: Flu vaccine status is unknown. - Social history:: Smoking status: Patient/guardian denies using tobacco, Patient/guardian denies using alcohol, street drugs, IV drugs. ROS: 21:10 Constitutional: Negative for fever, chills, and weight loss, Eyes: Negative for injury, mh7 pain, redness, and discharge, ENT: Negative for injury, pain, and discharge, Neck: Negative for injury, pain, and swelling, Cardiovascular: Negative for chest pain, palpitations, and edema, Respiratory: Negative for shortness of breath, cough, wheezing, and pleuritic chest pain, Back: Negative for injury and pain, : Negative for injury, bleeding, discharge, and swelling, MS/Extremity: Negative for injury and deformity, Skin: Negative for injury, rash, and discoloration, Neuro: Negative for headache, weakness, numbness, tingling, and seizure, Psych: Negative for depression, anxiety, suicide ideation, homicidal ideation, and hallucinations, Allergy/Immunology: Negative for hives, rash, and allergies, Endocrine: Negative for neck swelling, polydipsia, polyuria, polyphagia, and marked weight changes, Hematologic/Lymphatic: Negative for swollen nodes, abnormal bleeding, and unusual bruising. Exam: 21:10 Constitutional: This is a well developed, well nourished patient who is awake, alert, mh7 and in no acute distress. Head/Face: Normocephalic, atraumatic. Eyes: Pupils equal round and reactive to light, extra-ocular motions intact. Lids and lashes normal. Conjunctiva and sclera are non-icteric and not injected. Cornea within normal limits. Periorbital areas with no swelling, redness, or edema. Neck: Trachea midline, no thyromegaly or masses palpated, and no cervical lymphadenopathy. Supple, full range of motion without nuchal rigidity, or vertebral point tenderness. No Meningismus. Chest/axilla: Normal chest wall appearance and motion. Nontender with no deformity. No lesions are appreciated. Cardiovascular: Regular rate and rhythm with a normal S1 and S2. No gallops, murmurs, or rubs. Normal PMI, no JVD. No pulse deficits. 21:10 Back: No spinal tenderness. No costovertebral tenderness. Full range of motion. Skin: Warm, dry with normal turgor. Normal color with no rashes, no lesions, and no evidence of cellulitis. MS/ Extremity: Pulses equal, no cyanosis. Neurovascular intact. Full, normal range of motion. 21:10 Respiratory: the patient does not display signs of respiratory distress, Respirations: normal, Breath sounds: rhonchi, that are mild, are scattered. 21:10 Abdomen/GI: Inspection: obese Bowel sounds: normal, in all quadrants, Palpation: moderate abdominal tenderness, in all quadrants, Indicators: McBurney's point is not tender, Torres's sign is negative, Rovsing's sign is negative, Obturator sign is negative, Psoas sign is negative, Liver: no appreciated palpable abnormalities, Hernia: not appreciated. 23:17 ECG was reviewed by the Attending Physician. mh7 11/14 02:45 Abdomen/GI: Rectal exam: rectal tone normal, Stool: guaiac positive, black, mh7 hemorrhoid(s), are not appreciated, mass, is not appreciated, swelling, is not appreciated, tenderness, is not appreciated, fecal impaction, is not appreciated. Vital Signs: 11/13 20:40 BP 124 / 87; Pulse 73; Resp 22; Temp 98.3; Pulse Ox 94% on 3 lpm NC; Weight 163.29 kg; mg2 Height 5 ft. 6 in. (167.64 cm); 22:44 BP 122 / 84; Pulse 78; Resp 20; Pulse Ox 100% on 3 lpm NC; mg2 23:30 BP 125 / 78; Pulse 80; Resp 20; Pulse Ox 98% on 3 lpm NC; mg2 11/14 00:25 BP 121 / 78; Pulse 80; Resp 20; Temp 98; Pulse Ox 98% on 3 lpm NC; mg2 11/13 20:40 Body Mass Index 58.10 (163.29 kg, 167.64 cm) mg2 MDM: 11/13 20:52 Patient medically screened. mh7 22:59 Differential diagnosis: appendicitis, bowel obstruction, cholecystitis, Cholelithiasis, mh7 diverticulitis, gastritis, gastroesophageal reflux disease, GI Bleed, non-specific abd pain, pancreatitis, Peptic Ulcer Disease, Perf. Duodenal Ulcer, Perf. Gastric Ulcer, Pyelonephritis, Ureterolithiasis, urinary tract infection. Data reviewed: vital signs, nurses notes, old medical records, lab test result(s), CBC, electrolytes, urinalysis, EKG, radiologic studies, CT scan. 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 Interpretation: acceptable. Counseling: I had a detailed discussion with the patient and/or guardian regarding: the historical points, exam findings, and any diagnostic results supporting the discharge/admit diagnosis, lab results, radiology results, the need for further work-up and treatment in the hospital. 11/13 20:40 Order name: Basic Metabolic Panel; Complete Time: 21:41 mg2 11/13 20:40 Order name: CBC with Diff; Complete Time: 21:41 [facility] [place] 11/13 20:40 Order name: Hepatic Function; Complete Time: 21:41 [facility] [place] 11/13 20:40 Order name: Lipase; Complete Time: 21:41 [facility] [place] 11/13 20:53 Order name: Protime (+inr); Complete Time: 22:34 [facility] 11/13 20:53 Order name: Ptt, Activated; Complete Time: 22:34 [facility] 11/13 20:58 Order name: UDS; Complete Time: 22:34 [facility] 11/13 21:57 Order name: Urine Dipstick--Ancillary (enter results) [facility] 11/13 21:57 Order name: Urine --Ancillary (enter results) [facility] 11/13 23:27 Order name: Type and Screen [facility] 11/13 23:27 Order name: Type and Screen [facility] 11/13 23:27 Order name: Basic Metabolic Panel [facility] 11/13 23:27 Order name: Basic Metabolic Panel [facility] 11/13 23:27 Order name: CBC with Automated Diff [facility] 11/13 21:01 Order name: CT Abd/Pelvis - Without Contrast [facility] 11/13 23:27 Order name: CBC with Automated Diff [facility] 11/13 23:27 Order name: Hematocrit [facility] 11/13 23:27 Order name: Hematocrit [facility] 11/13 23:27 Order name: Hemoglobin [facility] 11/13 23:27 Order name: Hemoglobin [facility] 11/13 23:27 Order name: Protime (+INR) [facility] 11/13 23:27 Order name: Protime (+INR) [facility] 11/13 23:27 Order name: PTT, Activated Partial Thromb [facility] 11/13 23:27 Order name: PTT, Activated Partial Thromb [facility] 11/13 23:27 Order name: Occult Blood [facility] 11/13 20:40 Order name: IV Saline Lock; Complete Time: 21:04 [facility] [place] 11/13 20:40 Order name: Labs collected and sent; Complete Time: 21:04 [facility] [place] 11/13 20:53 Order name: Urine Dipstick-Ancillary (obtain specimen); Complete Time: 22:01 [facility] 11/13 20:53 Order name: EKG - Nurse/Tech; Complete Time: 22:01 [facility] 11/13 20:56 Order name: Urine Test (obtain specimen); Complete Time: 22:01 [facility] 11/13 23:27 Order name: CONS Pharmacy Consult ED[facility] 11/13 23:27 Order name: NPO [facility] 11/13 23:27 Order name: EKG Electrocardiogram [facility] 11/13 23:27 Order name: EKG Electrocardiogram [facility] 11/13 23:27 Order name: EKG Electrocardiogram [facility] 11/13 23:27 Order name: EKG Electrocardiogram [facility] 11/13 23:27 Order name: EKG Electrocardiogram ED[facility] 11/13 23:27 Order name: EKG Electrocardiogram EDMS 11/13 23:27 Order name: EKG Electrocardiogram [facility] 11/13 23:27 Order name: EKG Electrocardiogram [facility] 11/13 23:27 Order name: EKG Electrocardiogram [facility] 11/13 23:27 Order name: EKG Electrocardiogram [facility] 11/13 23:27 Order name: EKG Electrocardiogram [facility] EC:17 Rate is 60 beats/min. Rhythm is regular, Normal Sinus Rhythm. QRS [place] is Normal. SC mh7 interval is normal. QRS interval is normal. QT interval is normal. No Q waves. T waves are Inverted in leads V1, V2, V3. No ST changes noted. Clinical impression: NSR w/ Non-specific ST/T Changes. Administered Medications: 21:03 Drug: Demerol 25 mg Route: IVP; Site: left forearm; mg2 22:41 Follow up: Response: No adverse reaction; RASS: Alert and Calm (0) mg2 21:03 Drug: Phenergan 12.5 mg Route: IVP; Site: left forearm; mg2 22:41 Follow up: Response: No adverse reaction mg2 22:00 Drug: Demerol 25 mg Route: IVP; Site: left antecubital; mg2 22:49 Follow up: Response: No adverse reaction mg2 22:28 Drug: ProTONIX 40 mg Route: IVP; Site: left antecubital; mg2 22:49 Follow up: Response: No adverse reaction mg2 22:58 Drug: Phenergan 12.5 mg Route: IVP; Site: left antecubital; mg2 Disposition: 11/14/19 23:01 Hospitalization ordered by Rodrigo Ibanez for Inpatient Admission. Preliminary diagnosis are Abdominal Pain, Vomiting, GI Bleeding. - Bed requested for Telemetry/MedSurg (Inpatient). - Status is Inpatient Admission. mg2 - Condition is Stable. - Problem is new. - Symptoms have improved. Signatures: Dispatcher [employer] EDKelli Kendrick RN RN El Barrett RN RN [facility] [place] Logan Saucedo MD MD [facility] Corrections: (The following items were deleted from the chart) 23:45 23:01 Hospitalization Ordered by Rodrigo Ibanez MD for Inpatient Admission. Preliminary cg diagnosis is Abdominal Pain; Vomiting; GI Bleeding. Bed requested for Telemetry/MedSurg (Inpatient). Status is Inpatient Admission. Condition is Stable. Problem is new. Symptoms have improved. [facility] 11/14 00:51 11/13 23:45 11/14/2019 23:01 Hospitalization Ordered by Rodrigo Ibanez MD for Inpatient mg2 Admission. Preliminary diagnosis is Abdominal Pain; Vomiting; GI Bleeding. Bed requested for Telemetry/MedSurg (Inpatient). Status is Inpatient Admission. Condition is Stable. Problem is new. Symptoms have improved. cg
--- NOTE | 2019-11-14 23:01 | ER ---
Nurse's Notes [facility] Name: Oleg Rosenberg Age: 49 yrs Sex: Female : 1970 Arrival Date: 11/14/2019 Time: 20:39 Bed 5 Private MD: Diagnosis: Abdominal Pain;Vomiting;GI Bleeding Presentation: 11/13 20:40 Chief complaint: EMS states: she has abdominal pain, N/V/D this morning. she said her mg2 stool was dark. Coronavirus screen: Proceed with normal triage. Patient denies a cough. Patient reports shortness of breath or difficulty breathing. Patient denies measured and/or subjective temperature greater than 100.4F prior to today's visit. Patient denies travel on a cruise ship or to a country the [facility] currently lists as an affected area. Patient denies contact with known and/or suspected case of COVID-19. Ebola Screen: No symptoms or risks identified at this time. Initial Sepsis Screen: Does the patient meet any 2 criteria? No. Patient's initial sepsis screen is negative. Does the patient have a suspected source of infection? No. Patient's initial sepsis screen is negative. Risk Assessment: Do you want to hurt yourself or someone else? Patient reports no desire to harm self or others. Onset of symptoms was November 14, 2019. 20:40 Method Of Arrival: EMS: [facility] mg2 20:40 Acuity: AAYUSH 3 mg2 Historical: - Allergies: 20:44 Aspirin; mg2 20:44 Dilaudid; mg2 20:44 Iodinated Contrast Media - IV Dye; mg2 20:44 Iodine; mg2 20:44 Morphine; mg2 20:44 Mucinex; mg2 20:44 NSAIDS; mg2 20:44 PENICILLINS; mg2 20:44 Zofran; mg2 - PMHx: 20:44 Asthma; Bipolar disorder; Bronchitis; COPD; Depression; kidney cancer; mg2 - PSHx: 20:44 lap band surgery and removal; mg2 - Immunization history:: Flu vaccine status is unknown. - Social history:: Smoking status: Patient/guardian denies using tobacco, Patient/guardian denies using alcohol, street drugs, IV drugs. Screenin:16 Abuse screen: Denies threats or abuse. Denies injuries from another. Nutritional mg2 screening: No deficits noted. Tuberculosis screening: No symptoms or risk factors identified. Fall Risk IV access (20 points). Assessment: 22:16 General: Appears in no apparent distress. comfortable, Behavior is calm, cooperative. mg2 Pain: Complains of pain in abdomen. Neuro: Level of Consciousness is awake, alert, obeys commands, Oriented to person, place, time, situation. Cardiovascular: Capillary refill < 3 seconds Patient's skin is warm and dry. Respiratory: Airway is patent Respiratory effort is even, unlabored, Respiratory pattern is regular, symmetrical. GI: Reports upper abdominal pain, diarrhea, nausea, vomiting. : No signs and/or symptoms were reported regarding the genitourinary system. EENT: No signs and/or symptoms were reported regarding the EENT system. Derm: Skin is intact, is healthy with good turgor, Skin is pink, warm \T\ dry. normal. Musculoskeletal: Circulation, motion, and sensation intact. Vital Signs: 20:40 BP 124 / 87; Pulse 73; Resp 22; Temp 98.3; Pulse Ox 94% on 3 lpm NC; Weight 163.29 kg; mg2 Height 5 ft. 6 in. (167.64 cm); 22:44 BP 122 / 84; Pulse 78; Resp 20; Pulse Ox 100% on 3 lpm NC; mg2 23:30 BP 125 / 78; Pulse 80; Resp 20; Pulse Ox 98% on 3 lpm NC; mg2 11/14 00:25 BP 121 / 78; Pulse 80; Resp 20; Temp 98; Pulse Ox 98% on 3 lpm NC; mg2 11/13 20:40 Body Mass Index 58.10 (163.29 kg, 167.64 cm) mg2 ED Course: 11/13 20:39 Patient arrived in ED. rv 20:39 El Barrett, HARDIK is Primary Nurse. mg2 20:40 Logan Saucedo MD is Attending Physician. mh7 20:43 Triage completed. mg2 20:44 Arm band placed on. mg2 21:00 Inserted saline lock: 22 gauge in left antecubital area, using aseptic technique. Blood mg2 collected. 21:43 CT Abd/Pelvis - Without Contrast In Process Unspecified. 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 mg2 22:17 Patient has correct armband on for positive identification. mg2 23:00 Rodrigo Ibanez MD is Hospitalizing Provider. 7 11/14 00:25 Patient admitted, IV remains in place. mg2 Administered Medications: 11/13 21:03 Drug: Demerol 25 mg Route: IVP; Site: left forearm; mg2 22:41 Follow up: Response: No adverse reaction; RASS: Alert and Calm (0) mg2 21:03 Drug: Phenergan 12.5 mg Route: IVP; Site: left forearm; mg2 22:41 Follow up: Response: No adverse reaction mg2 22:00 Drug: Demerol 25 mg Route: IVP; Site: left antecubital; mg2 22:49 Follow up: Response: No adverse reaction mg2 22:28 Drug: ProTONIX 40 mg Route: IVP; Site: left antecubital; mg2 22:49 Follow up: Response: No adverse reaction mg2 22:58 Drug: Phenergan 12.5 mg Route: IVP; Site: left antecubital; mg2 Outcome: 23:01 Decision to Hospitalize by Provider. mh7 11/14 00:25 Admitted to Med/surg accompanied by tech, via wheelchair, room 212, with oxygen, with mg2 chart, Report called to HARDIK Titus Condition: stable Instructed on the need for admit, Demonstrated understanding of instructions. 00:51 Patient left the ED. mg2 Signatures: Dispatcher [employer] EDMS El Barrett RN RN mg2 Sukhi Edmondson RN RN rv Holmes, Maurice, MD MD 7
[2019-11-14] MEDS ORDERED: ONDANSETRON 4 MG/2 ML VIAL IV PRN (23:19)
[2019-11-14] MEDS ORDERED: FENTANYL CITR 100 MCG/2 ML IV PRN (23:19)
[2019-11-14] MEDS ORDERED: ACETAMINOPHEN 500 MG TAB PO PRN (23:19)
[2019-11-14] MEDS ORDERED: PROMETHAZINE 25 MG/SUPP PR PRN (23:19)
[2019-11-14] MEDS ORDERED: NA CHLORIDE 0.9% 250 ML IV SCH (23:45)
[2019-11-15 00:05] LABS: Urine Blood NEGATIVE (NEG); Urine Glucose NEGATIVE (NEG); Urine Protein NEGATIVE (NEG); Urine pH 7.5 (5.0-7.0)
[2019-11-15] MEDS ORDERED: FENTANYL CITR 100 MCG/2 ML ONE (00:58)
[2019-11-15 01:11] VITALS: BMI 64.8
[2019-11-15] MEDS ORDERED: MEPERIDINE HCL 50 MG/ML IV PRN (01:37)
[2019-11-15] MEDS: NA CHLORIDE 0.9% 1,000 ML IV SCH ×2 (01:54→13:24)
[2019-11-15 02:18] LABS: Hematocrit 39.8 % (36.0-45.0)
[2019-11-15] MEDS: PROMETHAZINE 25 MG TABLET PO PRN ×2 (03:59→10:17)
[2019-11-15 06:05] LABS: Absolute Lymphocytes (CBC) 2.6 K/uL (0.7-4.9); Basophils % 0.8 % (0-1.3); Hematocrit 40.6 % (36.0-45.0); Lymphocytes % 27.6 % (15.3-44.8); MPV 9.4 fL (7.6-11.3); RBC Red Blood Cell Count 4.41 M/uL (3.86-4.86)
[2019-11-15 06:08] LABS: Protime INR 0.94
[2019-11-15 06:19] LABS: BUN Blood Urea Nitrogen 13 mg/dL (7-18); Bicarbonate 37 mmol/L (21-32); Glucose Level 86 mg/dL (74-106); Potassium 4.1 mmol/L (3.5-5.1); Sodium Level 143 mmol/L (136-145)
[2019-11-15] MEDS: PANTOPRAZOLE 40 MG INJ IVP SCH ×2 (06:21→09:50)
[2019-11-15] MEDS ORDERED: MEPERIDINE HCL 25 MG/ML SYR IV PRN (07:16)
--- NOTE | 2019-11-15 07:23 | P.HP ---
Certification for Inpatient Patient admitted to: Observation With expected LOS: <2 Midnights Patient will require the following post-hospital care: None Practitioner: I am a practitioner with admitting privileges, knowledge of patient current condition, hospital course, and medical plan of care. Services: Services provided to patient in accordance with Admission requirements found in Title 42 Section 412.3 of the Code of Federal Regulations Patient History Date of Service: 11/14/19 Reason for admission: Epigastric pain; melanotic stools History of Present Illness: Patient is a 49-year-old female who came to the hospital with abdominal pain & epigastric tenderness. Patient has had similar complaints for quite a while. However, she has never had endoscopic procedure even though she has had a lap band in the past. She came to the hospital for further evaluation. In the ER it was noted that she may of had melanotic stools. Her hemoglobin is stable. She states her pain is severe. She will be admitted to the hospital for further evaluation. I will keep her on observation at this time. Allergies aspirin Allergy (Severe, Verified 10/20/18 15:03) Anaphylaxis guaifenesin [From Mucinex] Allergy (Severe, Verified 10/20/18 15:03) Anaphylaxis hydromorphone HCl [From Dilaudid] Allergy (Severe, Verified 10/20/18 15:03) Anaphylaxis morphine Allergy (Severe, Verified 10/20/18 15:03) Anaphylaxis NSAIDS (Non-Steroidal Anti-Inflamma Allergy (Severe, Verified 10/20/18 15:03) Hives Penicillins Allergy (Severe, Verified 10/20/18 15:03) Anaphylaxis fentanyl Allergy (Verified 11/15/19 01:13) Itching/Hives/Rash Iodinated Contrast Media [Iodinated Contrast Media - IV Dye] Allergy (Verified 10/20/18 15:03) Anaphylaxis ondansetron [From Zofran] Allergy (Verified 10/20/18 15:03) Itching Home Medications: Benztropine Mesylate [Cogentin*] 1 mg PO TID 10/12/18 Diazepam [Valium] 5 mg PO QID 10/12/18 Ergocalciferol (Vitamin D2) [Vitamin D 50,000 Unit Cap] 50,000 unit PO Q7D 10/20/18 Tizanidine HCl 4 mg PO BID 10/20/18 Albuterol Sulfate [Proventil Hfa] 2 puff IH QID 09/23/19 Carbamazepine [Equetro] 200 mg PO TID 09/23/19 Cariprazine HCl [Vraylar] 3 mg PO DAILY 09/23/19 Dextroamphetamine/Amphetamine [Adderall 10 mg Tablet] 10 mg PO BID 09/23/19 Fluticasone/Vilanterol [Breo Ellipta 200-25 Mcg INH] 1 each IH BID 09/23/19 Ipratropium/Albuterol Sulfate [Iprat-Albut 0.5-3(2.5) mg/3 ml] 3 ml IH QIDP PRN 09/23/19 Levalbuterol Tartrate [Levalbuterol Tartrate Hfa] 2 puff IH QIDP PRN 09/23/19 Losartan Potassium 25 mg PO DAILY 09/23/19 Multivit-Minerals/Folic/Ginkgo [One Daily Women's 50+ Tablet] 1 each PO DAILY 09/23/19 Pregabalin [Lyrica] 150 mg PO BID 09/23/19 - Past Medical/Surgical History Has patient received pneumonia vaccine in the past: No Diabetic: No -: COPD -: Sleep apnea -: asthma -: smoker -: chronic back pain -: kidney cancer -: Suspect obstructive sleep apnea -: Diaphragmatic hernia -: GERD -: Former smoker -: Left nephrectomy -: Hysterectomy -: right lower leg I and D -: Lap band/and reversal -: -: I&D to the abdomen superficially -: left shoulder sx -: left ankle surgery Psychosocial/ Personal History: , one child, disabled. - Family History Father Medical History: Heart disease, Hypertension, Cancer, Liver disease Notes: liver CA, cirrhosis Mother Medical History: Lung disease Notes: copd , of morbid obesity Brother Medical History: Hypertension Sister Medical History: Lung disease, GI disease, Diabetes - Social History Smoking Status: Current some day smoker Alcohol use: No Caffeine use: Yes Place of Residence: Home Review of Systems 10-point ROS is otherwise unremarkable Physical Examination - Vital Signs Temperature: 97.4 F Blood Pressure: 144/74 Pulse: 59 Respirations: 16 Pulse Ox (%): 93 - Physical Exam General: Alert, In no apparent distress, Oriented x3 HEENT: Atraumatic, PERRLA, Mucous membr. moist/pink, EOMI, Sclerae nonicteric Neck: Supple, 2+ carotid pulse no bruit, No LAD, Without JVD or thyroid abnormality Respiratory: Clear to auscultation bilaterally, Normal air movement Cardiovascular: Regular rate/rhythm, Normal S1 S2, No murmurs Gastrointestinal: Normal bowel sounds, Soft and benign, Non-distended, No tenderness Musculoskeletal: No clubbing, No swelling, No tenderness Integumentary: No rashes Neurological: Normal gait, Normal speech, Normal strength at 5/5 x4 extr, Normal tone, Sensation intact, Cranial nerves 3-12 intact, Normal affect Lymphatics: No axilla or inguinal lymphadenopathy - Studies Laboratory Data (last 24 hrs) 11/14/19 21:50: PT 10.7, INR 0.91, APTT 21.5 L 11/14/19 20:55: WBC 8.2 D, Hgb 13.0, Hct 40.8, Plt Count 193 11/14/19 20:55: Sodium 141, Potassium 4.6, BUN 13, Creatinine 0.75, Glucose 88, Total Bilirubin 0.2, AST 11 L, ALT 17, Alkaline Phosphatase 115, Lipase 118 Assessment & Plan - Problems (Diagnosis) (1) Morbid obesity with BMI of 60.0-69.9, adult Current Visit: Yes Status: Acute (2) Abdominal pain Onset Date: 07/22/16 Current Visit: No Status: Acute Qualifiers: (3) COPD (chronic obstructive pulmonary disease) Onset Date: 10/23/16 Current Visit: No Status: Acute Qualifiers: (4) Bipolar 1 disorder Onset Date: 10/23/16 Current Visit: No Status: Chronic (5) Obstructive sleep apnea Onset Date: 10/23/16 Current Visit: No Status: Suspected - Plan Plan: 1. Continue with IV hydration and PPI; Protonix twice daily 2. Concern for gastritis or peptic ulcer disease. 3. Continue with pain control 4. NPO 5. GI consultation 6. Serial H&H, and we will monitor LFTs and lipase along with electrolytes. 7. GI and DVT prophylaxis Discharge Plan: Home Plan to discharge in: 24 Hours - Advance Directives Does patient have a Living Will: No Does patient have a Durable POA for Healthcare: No - Code Status/Comfort Care Code Status Assessed: Yes Code Status: Full Code Critical Care: No Time Spent Managing PTS Care (In Minutes): 40
[2019-11-15] MEDS ORDERED: HOME MED 1 EA UNK (Ipratropium/Albuterol Sulfate [Iprat-Albut 0.5-3(2.5) Mg/3 Ml] 3 ML) IH PRN (07:24)
[2019-11-15] MEDS ORDERED: LEVALBUTEROL TARTRATE IH PRN (07:24)
[2019-11-15] MEDS: MEPERIDINE HCL 50 MG/ML IV PRN ×2 (07:25→13:25)
[2019-11-15 07:36] LABS: Blood Morphology Comment NOT SEEN (NOT SEEN); Platelet Estimate ADEQ; Urine White Blood Cell Casts OK
--- NOTE | 2019-11-15 07:45 | EKG ---
Test Date: 2019-11-14 Test Time: 21:52:48 Aged Or Disabled Carer: HAMZAH MEASUREMENT RESULTS: Intervals: Rate: 60 UT: 144 QRSD: 78 QT: 406 QTc: 406 [place]: P: 46 UT: 144 QRS: 108 T: 45 INTERPRETIVE STATEMENTS: Normal sinus rhythm Rightward axis T wave abnormality, consider anterior ischemia Abnormal ECG Compared to ECG 11/06/2019 19:35:53 Right-axis deviation now present T-wave abnormality now present ST (T wave) deviation no longer present Possible ischemia still present Electronically Signed On 11-15-19 07:44:25 CDT by Mahendra Howard
[2019-11-15] MEDS ORDERED: DRISDOL (VITAMIN D=ERGOCALCIFEROL) 50000 UNIT CAP PO SCH (08:00)
[2019-11-15 08:49] VITALS: O2SAT 93
[2019-11-15] MEDS ORDERED: CARIPRAZINE HCL 3 MG PO SCH (09:00)
[2019-11-15] MEDS ORDERED: HOME MED 1 EA UNK (Fluticasone/Vilanterol [Breo Ellipta 200-25 Mcg Inh] 1 EACH) IH SCH (09:00)
[2019-11-15] MEDS ORDERED: PREGABALIN 150 MG CAP PO SCH (09:00)
[2019-11-15] MEDS ORDERED: clonazePAM 0.5 MG TAB PO SCH (09:00)
[2019-11-15] MEDS ORDERED: LOSARTAN POTASSIUM 50 MG TABLET PO SCH (09:00)
[2019-11-15] MEDS ORDERED: DEXTROAMPHETAMINE PO SCH (09:00)
[2019-11-15] MEDS ORDERED: AMPHETAMINE PO SCH (09:00)
[2019-11-15] MEDS ORDERED: TIZANIDINE 4 MG TABLET PO SCH (09:00)
--- NOTE | 2019-11-15 09:17 | RAD REPORT ---
EXAM DESCRIPTION: CT - Abdomen Pelvis Wo Contrast - 11/14/2019 9:42 pm EXAM DESCRIPTION: Abdomen Pelvis Wo Contrast CLINICAL HISTORY: 49 years Female ABD PAIN COMPARISON: None TECHNIQUE: Images were obtained in axial, sagittal, and coronal planes. No intravenous contrast was administered. Marked image degradation related to patient body size. This exam was performed according to our departmental dose-optimization program which includes use of Automated Exposure Control, adjustment of the mA and/or kV according to patient size and/or use o f iterative reconstruction technique. FINDINGS: No abnormality involving the liver, spleen, pancreas, or adrenal glands bilaterally. Contr acted gallbladder. Prior left nephrectomy. No obstructing renal calcification on right. No hydronephrosis on right. Unre markable bladder. Appendix within normal limits. No bowel obstruction, perforation, or inflammation. Large hiatal hernia versus residua of prior surgery. Postsurgical changes epigastric region. Small bi lateral pleural effusions right greater than left. Parenchymal stranding lower lungs bilaterally. No acute osseous abnormality. IMPRESSION: No acute intra-abdominal abnormality. Prior left nephrectomy. Electronically signed by: Sarah Chandler MD 11/14/2019 10:16 PM CDT Due to temporary technical issues with the PACS/Fluency reporting system, reports are being signed by the in house radiologist without review as a courtesy to ensure prompt reporting. The interpreting r adiologist is fully responsible for the content of the report.
[2019-11-15] MEDS: BENZTROPINE 1 MG TAB PO SCH ×2 (09:50→13:25)
[2019-11-15] MEDS: carBAMazepine 200 MG TAB PO SCH ×2 (09:51→13:25)
[2019-11-15] MEDS: ALBUTEROL INHALER 60 PUFF/8 GM IH SCH ×2 (09:51→13:25)
[2019-11-15] MEDS: DIAZEPAM 5 MG TABLET PO SCH ×2 (09:51→13:25)
[2019-11-15 10:33] VITALS: TEMP 97
[2019-11-15 14:29] VITALS: BP 156/79
--- NOTE | 2019-11-16 13:00 | P.DS ---
Discharge Date: 11/15/19 Disposition: AMA-LEFT AGAINST MEDICAL ADVIC Reason for Admission: Epigastric pain; melanotic stools - Problems (1) Morbid obesity with BMI of 60.0-69.9, adult Status: Acute (2) Abdominal pain Onset Date: 07/22/16 Status: Acute Qualifiers: (3) COPD (chronic obstructive pulmonary disease) Onset Date: 10/23/16 Status: Acute Qualifiers: (4) Bipolar 1 disorder Onset Date: 10/23/16 Status: Chronic (5) Obstructive sleep apnea Onset Date: 10/23/16 Status: Suspected Brief History of Present Illness: Patient is a 49-year-old female who came to the hospital with abdominal pain & epigastric tenderness. Patient has had similar complaints for quite a while. However, she has never had endoscopic procedure even though she has had a lap band in the past. She came to the hospital for further evaluation. In the ER it was noted that she may of had melanotic stools. Her hemoglobin is stable. She states her pain is severe. She will be admitted to the hospital for further evaluation. I will keep her on observation at this time. Hospital Course: PATIENT DECIDED TO LEAVE AGAINST MEDICAL ADVICE Vital Signs/Physical Exam: Temp Pulse Resp BP Pulse Ox 97 F 56 18 156/79 H 91 11/15/19 12:00 11/15/19 12:00 11/15/19 12:00 11/15/19 12:00 11/15/19 12:00 Laboratory Data at Discharge: WBC 9.6 K/uL (4.3-10.9) D 11/15/19 05:46 Hgb 13.0 g/dL (12.0-15.0) 11/15/19 05:46 Hct 40.6 % (36.0-45.0) 11/15/19 05:46 Plt Count 204 K/uL (152-406) 11/15/19 05:46 PT 11.1 SECONDS (9.5-12.5) 11/15/19 05:46 INR 0.94 11/15/19 05:46 APTT 22.0 SECONDS (24.3-36.9) L 11/15/19 05:46 Sodium 143 mmol/L (136-145) 11/15/19 05:46 Potassium 4.1 mmol/L (3.5-5.1) 11/15/19 05:46 BUN 13 mg/dL (7-18) 11/15/19 05:46 Creatinine 0.69 mg/dL (0.55-1.3) 11/15/19 05:46 Glucose 86 mg/dL (74-106) 11/15/19 05:46 Total Bilirubin 0.2 mg/dL (0.2-1.0) 11/14/19 20:55 AST 11 U/L (15-37) L 11/14/19 20:55 ALT 17 U/L (12-78) 11/14/19 20:55 Alkaline Phosphatase 115 U/L (45-117) 11/14/19 20:55 Lipase 118 U/L (73-393) 11/14/19 20:55 Home Medications: Benztropine Mesylate [Cogentin*] 1 mg PO TID 10/12/18 Diazepam [Valium] 5 mg PO QID 10/12/18 Ergocalciferol (Vitamin D2) [Vitamin D 50,000 Unit Cap] 50,000 unit PO Q7D 10/20/18 Tizanidine HCl 4 mg PO BID 10/20/18 Albuterol Sulfate [Proventil Hfa] 2 puff IH QID 09/23/19 Carbamazepine [Equetro] 200 mg PO TID 09/23/19 Cariprazine HCl [Vraylar] 3 mg PO DAILY 09/23/19 Dextroamphetamine/Amphetamine [Adderall 10 mg Tablet] 10 mg PO BID 09/23/19 Fluticasone/Vilanterol [Breo Ellipta 200-25 Mcg INH] 1 each IH BID 09/23/19 Ipratropium/Albuterol Sulfate [Iprat-Albut 0.5-3(2.5) mg/3 ml] 3 ml IH QIDP PRN 09/23/19 Levalbuterol Tartrate [Levalbuterol Tartrate Hfa] 2 puff IH QIDP PRN 09/23/19 Losartan Potassium 25 mg PO DAILY 09/23/19 Multivit-Minerals/Folic/Ginkgo [One Daily Women's 50+ Tablet] 1 each PO DAILY 09/23/19 Pregabalin [Lyrica] 150 mg PO BID 09/23/19 Patient Discharge Instructions: PATIENT LEFT AGAINST MEDICAL ADVICE
== END 2019-11-15 14:22 | disposition left against medical advice (07) ==
LOC: ER 20:38 → ERHOLD 23:20 → 2ND 11-15 00:33
PROVIDERS: ADMIT Hospitalist; ATTEND Hospitalist
DX: R10.816 Epigastric abdominal tenderness (principal); R10.9 Unspecified abdominal pain; F31.9 Bipolar disorder, unspecified; J44.9 Chronic obstructive pulmonary disease, unspecified; G47.33 Obstructive sleep apnea (adult) (pediatric); E66.01 Morbid (severe) obesity due to excess calories; Z68.43 Body mass index [BMI] 50.0-59.9, adult; Z53.29 Procedure and treatment not carried out because of patient's decision for other reasons; R94.31 Abnormal electrocardiogram [ECG] [EKG]; K21.9 Gastro-esophageal reflux disease without esophagitis; K44.9 Diaphragmatic hernia without obstruction or gangrene; F17.200 Nicotine dependence, unspecified, uncomplicated; Z79.899 Other long term (current) drug therapy; Z85.528 Personal history of other malignant neoplasm of kidney; Z90.5 Acquired absence of kidney
CPT/HCPCS: 93005; 85025 ×2; 80048 ×2; 36415; 86900; 86850; 81025; 85610 ×2; 86901; 80076; 80307 ×8; 85730 ×2; 85018; 85014; 81003; 83690; 74176; 96375; 96374; 99285; J2550 ×2; Q0169 ×2; C9113 ×3; J3010; J2175 ×5; J7030 ×2; G0378 ×2

== ENCOUNTER 2019-12-18 12:00 | Inpatient (IN) | payer OTHER ==
--- OUTSIDE RECORDS SUMMARY | 2019-12-18 12:11 | XMS REPORT | Continuity of Care Document ---
:1970 Author Organization [facility] t Address [address] [place] [address] Care Team Providers Name Role Phone Unavailable Unavailable Unavailable Payers Payer Name Policy Type Policy Number Effective Date Expiration Date S ource Problems This patient has no known problems. Allergies, Adverse Reactions, Alerts Allergy Allergy Status Severity Reaction(s) Onset Inactive Treating Comm ents Source Name Type Date Date Clinician fentanyl DA Active NM [facility] 5-27 Clear 00:00: Champagne 00 [facility] Iodinate DA Active SV 2018-05 [facility] d 05-03 Clear Contrast 00:00: Champagne Media [facility] NSAIDS DA Active SV 2018-05 [facility] (Non-Remigio 05-03 Clear roidal 00:00: Champagne Anti-Inf 00 [facility] Penicill DA Active SV 2018-05 [facility] ins 05-03 Clear 00:00: Champagne [facility] morphine DA Active SV 2018-05 [facility] 05-03 Clear 00:00: Champagne 00 [facility] aspirin DA Active U 2018-05 [facility] 05-03 Clear 00:00: Champagne 00 [facility] hydromor DA Active SV 2018-05 [facility] phone 05-03 Clear 00:00: Champagne 00 [facility] shellfis FA Active SV 2018-05 [facility] h 05-03 Clear derived 00:00: Champagne 00 [facility] No Known DA Active U [...] code = COVNONPUI) Negative Negative COMPREHENSIVE METABOLIC [id number] 09:36:00 Test Item Value Reference Range Interpretation [...] TOTAL (test code = ALKP) HCG SERUM [id number] 09:36:00 Test Item Value Reference Range Interpretation Comments HCG SERUM QUAL (test code = SERUM NEGATIVE NEGATIVE HCGQL) - XR CHEST 2 [id number] 09:35:00 FAX: Jigar Velasco DPAdryan [phone] [place]: St: PRE FAX: Adele Hernández MD [phone] Name: MARCELLE WEISS [facility] : 1970 Age/S: 49/F [address] [place] [address] Unit #: [id number] Loc: [place] [address] Phys: Jigar Jurado DPM Acct: [id number] Dis Date: Status: PRE SDC PHONE #: [phone] Exam Date: 09/27/2019930 FAX #: [phone] Reason: PREOP- PAIN D/T ORTHOPEDIC IMPLANT EXAMS: CPT CODE: [id number] XR CHEST 2 V 45559 Two-view chest: HISTORY: Preoperative clearance for painful orthopedic implant. FINDINGS: Stable mild cardiomegaly compared with 05/07/2019. Development of areas of bibasilar subsegmental atelectasis. No pleural effusion or bony pathology IMPRESSION: Bibasilar s ubsegmental atelectasis SL: [id number] at 0935 Reported and signed by: Sammy Branham M.D. CC: Jigar Jurado DPM; Adele York MD Technologist: Diamond Castro, RT(R) Trnscrd Date/Time/By: 09/27/2019 (0935) : By: SomETG Orig Print D/T: S: 09/27/2019 (6168) PAGE 1 Signed ReportCOMPREHENSIVE METABOLIC [id number] 09:28:00 Test Item Value Reference Range Interpretation [...] IUnit/L 20-125 code = ALKP) HCG SERUM [id number] 09:28:00 Test Item Value Reference Range Interpretation Comments HCG SERUM QUAL (test code = SERUM NEGATIVE NEGATIVE HCGQL) CBC W/AUTO [id number] 09:21:00 Test Item Value Reference Range Interpretation [...] (test NO code = MDIFF) BASIC METABOLIC [id number] 09:50:00 Test Item Value Reference Range Interpretation [...] = CA) 9.5 MG/DL 8.5-10.1 N VANCOMYCIN [id number] 21:06:00 Test Item Value Reference Range Interpretation Comments VANCOMYCIN TROUGH (test code = 19.1 mcG/ML 10-20 N VANCT) GLUCOSE BEDSIDE [id number] 20:17:00 Test Item Value Reference Range Interpretation Comments GLUCOSE BEDSIDE TESTING (test code = 84 mg/dL 70-110 N GLUBED) - NM BONE 3 [id number] 19:51:00 FAX: Dwight Parrish MD [place]: PM St: ADM FAX: Bettye Alves MD [phone] Name: MARCELLE WEISS [facility] : 1970 Age/S: 49/F [address] [facility] Unit #: [id number] Loc: [address] [place] [address] Phys: Bettye Mullins MD Acct: [id number] Dis Date: Status: ADM IN PHONE #: [phone] Exam Date: 05/09/2019 4620 FAX #: Reason: OM ANDHARDWARE INFECTION LEFT ANKLE EXAMS: CPT: [id number] NM BONE 3 PHASE 28556 EXAM: - NM BONE 3 PHASE HISTORY: [...] <2 ng/mL are obtai emily. BASIC METABOLIC [id number] 14:15:00 Test Item Value Reference Range Interpretation [...] <2 ng/mL are obtai emily. CBC W/AUTO [id number] 07:54:00 Test Item Value Reference Range Interpretation [...] code = NO DIFF/SCN CRITERIA MDIFF) SED [id number] 07:54:00 Test Item Value Reference Range Interpretation Comments SED RATE (test code = SEDW) 19 mm/hr 0-20 N BASIC METABOLIC [id number] 06:17:00 Test Item Value Reference Range Interpretation [...] (test code = ng/ml PROCAL) CBC W/AUTO [id number] 06:08:00 Test Item Value Reference Range Interpretation [...] code = NO DIFF/SCN CRITERIA MDIFF) SED [id number] 06:08:00 Test Item Value Reference Range Interpretation Comments SED RATE (test code = SEDW) mm/hr 0-20 [id number] 02:57:00 Test Item Value Reference Range Interpretation [...] may basilio yby method. Completed by Nursing: [id number] 23:57:00 Test Item Value Reference Range Interpretation [...] by Nursing: BIRGITUA RFLX MICR CULT IF [id number] 18:41:00 Test Item Value Reference Range Interpretation [...] for culture: Dysuria/FrequencyUA RFLX MICR CULT IF [id number] 18:41:00 Test Item Value Reference Range Interpretation [...] CLEAN CATCHIndication for culture: Dysuria/Frequency COMPREHENSIVE METABOLIC [id number] 18:23:00 Test Item Value Reference Range Interpretation [...] TOTAL (test code = ALKP) CBC W/AUTO [id number] 18:03:00 Test Item Value Reference Range Interpretation [...] = NO DIFF/SCN CRITERIA MDIFF) LACTIC ACID [id number] 17:58:00 Test Item Value Reference Range Interpretation Comments LACTIC ACID POC (test code = 1.93 MMOL/L 0.90-1.70 H LACTP) - XR ANKLE 3+V [id number] 17:50:00 Name: ABHISHEK,MARCELLE [facility] : 1970 Age/S: 49 / F [address] [address] Unit #: [id number] Loc: [place] [address] Phys: Aletha Valerio MD Acct: [id number] Dis Date: Status: REG ER PHONE #: [phone] Exam Date: 05/07/2019 174 FAX #: Reason: ankle EXAMS: CPT: [id number] XR ANKLE 3+V [place] [address] Fluoro Time: DAP (Gy m2): Air Kerma [...] HARGROVE PAGE 1 Signed Report [facility]: [facility] 1970 Age/S: 49 / F [address] [address] Unit #: [id number] Loc: [place] [address] Phys: Aletha Valerio MD Acct: [id number] Dis Date: Status: REG ER PHONE #: [phone] Exam Date: 05/07/2019 1740 FAX #: Reason:ankle EXAMS: CPT: [id number] XR ANKLE 3+[place] [address] Fluoro Time: DAP (Gy m2): Air Kerma (mGy): <Continued> Technologist: RT Charles(R)(MR) Trnscb Date/Time: 05/07/2019 (175) 16 Orig Print D/T: S: 05/07/2019 (6371) PAGE 2 Signed Report- XR CHEST 1 [id number] 17:40:00 Name: MARCELLE WEISS [facility] : 1970 Age/S: 49 / F [address] [address] Unit #: [id number] Loc: [place] [address] Phys: Aletha Valerio MD Acct: [id number] Dis Date: Status: REG ER PHONE #: [phone] Exam Date: 05/07/20191709 FAX #: Reason: infection EXAMS: CPT: [id number] XR CHEST 1 V 28143 Fluoro Time: DAP (Gy m2): Air Kerma [...] PAGE 1 Signed Report Name: MARCELLE WEISS [facility] : 1970 Age/S: 49 / F [address] [address] Unit #: [id number] Loc: [place] [address] Phys:Aletha Valerio MD Acct: [id number] Dis Date: Status: REG ER PHONE #: [phone] Exam Date: 05/07/2019 1710 FAX #: Reason: infection EXAMS: CPT: [id number] XR CHEST1 V 94646 Fluoro Time: DAP (Gy m2): Air Kerma (mGy): <Continued> Technologist: RT Charles(R)(MR) Trnscb Date/Time: 05/07/2019 (1739) 16 Orig Print D/T: S: 05/07/2019 (360) PAGE 2 Signed ReportPROCALCITONIN (PCT)2019-04-27 03:09:00 Test [...] concentrations <2 ng/mL are obtai emily. SED [id number] 13:10:00 Test Item Value Reference Range Interpretation Comments SED RATE (test code = SEDW) 30 mm/hr 0-20 H [id number] 02:18:00 Test Item Value Reference Range Interpretation [...] may basilio yby method. Completed by Nursing: [id number] 23:37:00 Test Item Value Reference Range Interpretation [...] yby method. Completed by Nursing: NOCHEMISTRY 8 [id number] 22:03:00 Test Item Value Reference Range Interpretation [...] 58-135 N code = GFRBED) CHEMISTRY 8 [id number] 22:03:00 Test Item Value Reference Range Interpretation [...] code = GFRBED) - CT CHEST W/O [id number] 21:11:00 Name: MARCELLE WEISS [facility] : 1970 Age/S: 49 / F [address] [address] Unit #: [id number] Loc: [place] [address] Phys: Uday Maya MD Acct: [id number] Dis Date: Status: ADM IN PHONE #: [phone] Exam Date: 04/25/20192042 FAX #: Reason: lung mass EXAMS: CPT: [id number] CT CHEST W/O CONTRAST 22472 Exam: CT thorax without contrast. Location: H [...] 1 Signed Report (CONTINUED) Name: MARCELLE WEISS [facility] : 1970 Age/S: 49 / F [address] [address] Unit #: [id number] Loc: [place] [address] Phys: Uday Maya MD Acct: [id number] Dis Date: Status: ADM IN PHONE #: [phone] Exam Date: 04/25/20192042 FAX #: Reason: lung mass EXAMS: CPT: [id number] CT CHEST W/O CONTRAST 916[address] <Continued> CC: Uday Maya MD; Aletha Valerio [...] TOTAL (test code = ALKP) CBC W/AUTO [id number] 20:01:00 Test Item Value Reference Range Interpretation [...] = NO DIFF/SCN CRITERIA MDIFF) TROPONIN I [id number] 19:58:00 Test Item Value Reference Range Interpretation Comments TROPONIN I RAPID 0.00 ng/mL 0.00-0.08 N - The use o f serial (test code = sampling and te sting TROPIRAP) protocol is a recommended pra ctice- An elevated tro ponin level alone is often not sufficient for diagnosis of my ocardial infarction. LACTIC ACID [id number] 19:58:00 Test Item Value Reference Range Interpretation Comments LACTIC ACID POC (test code = 1.43 MMOL/L 0.90-1.70 N LACTP) - XR CHEST 1 [id number] 19:42:00 Name: ABHISHEKMARCELLE [facility] : 1970 Age/S: 49 / F [address] [address] Unit #: [id number] Loc: [place] [address] Phys: Aletha Valerio MD Acct: [id number] Dis Date: Status: REG ER PHONE #: [phone] Exam Date: 04/25/20191919 FAX #: Reason: Suspected Sepsis EXAMS: CPT: [id number] XR CHEST 1 V 95475 Fluoro Time: DAP (Gy m2): Air Kerma [...] PAGE 1 Signed Report Name: MARCELLE WEISS [facility] : 1970 Age/S: 49 / F [address] [address] Unit #: [id number] Loc: [place] [address] Phys: Aletha Valerio MD Acct: [id number] Dis Date: Status: REG ER PHONE #: [phone] Exam Date: 04/25/20191919 FAX #: Reason: Suspected Sepsis E XAMS: CPT: [id number] XR CHEST 1 V 88884 Fluoro Time: DAP (Gy m2): Air Kerma (mGy): <Continued> Technologist: David Cole RT(R)(CT) TrnscbDate/Time: 04/25/2019 (1941) SomGS29 Orig Print D/T: S: 04/25/2019 (1945) PAGE 2 Signed ReportBASIC METABOLIC [id number] 06:51:00 Test Item Value Reference Range Interpretation [...] CA) 8.8 MG/DL 8.5-10.1 N CBC W/AUTO [id number] 06:27:00 Test Item Value Reference Range Interpretation [...] = NO DIFF/SCN CRITERIA MDIFF) BASIC METABOLIC [id number] 18:56:00 Test Item Value Reference Range Interpretation [...] CA) 9.0 MG/DL 8.5-10.1 N BASIC METABOLIC [id number] 18:53:00 Test Item Value Reference Range Interpretation [...] CA) 9.0 MG/DL 8.5-10.1 N CBC W/AUTO [id number] 18:52:00 Test Item Value Reference Range Interpretation [...] = NO DIFF/SCN CRITERIA MDIFF) CBC W/AUTO [id number] 07:16:00 Test Item Value Reference Range Interpretation [...] = NO DIFF/SCN CRITERIA MDIFF) BASIC METABOLIC [id number] 07:11:00 Test Item Value Reference Range Interpretation [...] CA) 8.7 MG/DL 8.5-10.1 N BASIC METABOLIC [id number] 11:01:00 Test Item Value Reference Range Interpretation [...] CA) 8.6 MG/DL 8.5-10.1 N CBC W/AUTO [id number] 10:24:00 Test Item Value Reference Range Interpretation [...] = NO DIFF/SCN CRITERIA MDIFF) BASIC METABOLIC [id number] 05:56:00 Test Item Value Reference Range Interpretation [...] CA) 8.8 MG/DL 8.5-10.1 N CBC W/AUTO [id number] 05:51:00 Test Item Value Reference Range Interpretation [...] = NO DIFF/SCN CRITERIA MDIFF) CBC W/AUTO [id number] 06:08:00 Test Item Value Reference Range Interpretation [...] = NO DIFF/SCN CRITERIA MDIFF) BASIC METABOLIC [id number] 05:55:00 Test Item Value Reference Range Interpretation [...] = CA) 9.0 MG/DL 8.5-10.1 N VANCOMYCIN [id number] 14:35:00 Test Item Value Reference Range Interpretation Comments VANCOMYCIN TROUGH (test code = 17.4 mcG/ML 10-20 N VANCT) BASIC METABOLIC [id number] 06:49:00 Test Item Value Reference Range Interpretation [...] CA) 8.5 MG/DL 8.5-10.1 N CBC W/AUTO [id number] 06:44:00 Test Item Value Reference Range Interpretation [...] NO DIFF/SCN CRITERIA MDIFF) - US GUIDANCE [facility] [id number] 13:25:00 Name: MARCELLE WEISS [facility] : 1970 Age/S: 49 / F [address] [address] Unit #: [id number] Loc: [place] [address] Phys: Theodore Gonzalez MD Acct: [id number] Dis Date: Status: ADM IN PHONE #: [phone] Exam Date: 03/29/2019 1550 FAX #: Reason: PICC LINE PLACEMENT EXAMS: CPT: [id number] US GUIDANCE VASC ACCESS 45969 Examination: PICC line insertion Location code: S17 Comparison: None 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 at 1325 Reported and signed by: Camacho Babroza M.D. CC: Theodore Gonzalez MD; Adele York MD Technologist: Esthela Krishnamurthy, RT(R),RDMS(AB) Trnscb Date/Time: 03/29/2019 (1325) SomJH12 PAGE 2 Signed Report Name: MARCELLE WEISS [place] : 1970 Age/S: 49 / F [address] [address] Unit #: [id number] Loc: [place] [address] Phys: Theodore Gonzalez MD Acct: [id number] Dis Date: Status: ADM IN PHONE #: [phone] Exam Date: 03/29/2019 1550 FAX #: Reason: PICC LINE PLACEMENT EXAMS: CPT: [id number] US GUIDANCE VASC ACCESS 35479 <Continued> Orig Print D/T: S: 03/29/2019 (3737) Probe: PAGE 3 Signed Report- FLUORO GUID CTRL ACC [id number] 13:25:00 Name: [facility] [place] [facility] 1970 Age/S: 49 / F [address] [address] Unit #: [id number] Loc: [place] [address] Phys: Bettye Mullins MD Acct: [id number] Dis Date: Status: ADM IN PHONE #: [phone] Exam Date: 03/29/2019 1301 FAX #: Reason: prolonged antibx EXAMS: CPT: [id number] FLUORO GUID CTRL ACC DEV 75301 Fluoro Time: DAP (Gy m2): Air Kerma (mGy): Examination: PICC line insertion Location code: S17 Comparison: None 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 at 1325 Reported and signed by: Camacho Barboza M.D. CC: Theodore Gonzalez MD; Bettye Mullins MD; Adele York MD PAGE 2 Signed Report Name:MARCELLE WEISS [facility] : 1970 Age/S: 49 / F [address] [address] Unit #: [id number] Loc: [place] [address] Phys: Bettye Mullins MD Acct: [id number] Dis Date: Status: ADM IN PHONE #: [phone] Exam Date: 03/29/2019 1301 FAX #: Reason: prolonged antibx EXAMS: CPT: [id number] FLUORO GUID CTRL ACC DEV 54047 Fluoro Time: DAP(Gy m2): Air Kerma (mGy): <Continued> Technologist: Ashlyn Maldonado, RT(R)(MR) Trnscb Date/Time: 03/29/2019 (1644) SomJH12 Orig Print D/T: S: 03/29/2019 (2617) PAGE 3 Signed ReportVANCOMYCIN [id number] 00:16:00 Test Item Value Reference Range Interpretation Comments VANCOMYCIN TROUGH (test code = 20.7 mcG/ML 10-20 H VANCT) BASIC METABOLIC [id number] 09:06:00 Test Item Value Reference Range Interpretation [...] CA) 8.6 MG/DL 8.5-10.1 N CBC W/AUTO [id number] 08:47:00 Test Item Value Reference Range Interpretation [...] CRITERIA MDIFF) Comment: postop- XR FLUOROSCOPY 0-60 [id number] 15:46:00 Name: MARCELLE WEISS [facility] : 1970 Age/S: 49 / F [address] [address] Unit #: [id number] Loc: [place] [address] Phys: Abilio Maldonado MD Acct: [id number] Dis Date: Status: [place] [facility] PHONE #: [phone] Exam Date: 03/27/2019 0940 FAX #: Reason: LEFT ANKLE I D WITH ANTIBIOTIC BEADS EXAMS: CPT: [id number] XR FLUOROSCOPY 0-60 MIN 57922 Fluoro Time: 4 SEC DAP (Gy m2): Air Kerma (mGy): Examination: Operative fluoroscopy Location code: S17 Comparison: None Discussion: Clinical history is remarkable for left ankle IND, antibody beads. 4.4 seconds fluoroscopic time is utilized. Antibiotic beads are placed along the fibula. Surgical screws are present through the medial malleolus. Impression: Please refer to the operative report. at 1542 Reported and signed by: Camacho Barboza M.D. CC: Abilio Maldonado MD PAGE 1 Signed Report Name: MARCELLE WEISS [facility] : 1970 Age/S: 49 / F [address] [address] Unit #: [id number] Loc: [place] [address] Phys: Abilio Maldonado MD Acct: [id number] Dis Date: Status: CAN [facility] PHONE #: [phone] Exam Date: 03/27/2019 0940 FAX #: Reason: LEFT ANKLE I D WITH ANTIBIOTIC BEADS EXAMS: CPT: [id number] XR FLUOROSCOPY 0-60 MIN 93971 Fluoro Time: 4 SEC DAP (Gy m2): Air Kerma (mGy): <Continued> Technologist: Lisa Machuca, RT(R) Trnscb Date/Time: 03/27/2019 (1545) [id number] Orig Print D/T: S: 03/27/2019 (2842) PAGE 2 Signed ReportUR HCG [id number] 06:57:00 Test Item Value Reference Range Interpretation Comments UR HCG QUAL (test code = HCGQLU) NEGATIVE NEGATIVE UA RFLX MICR CULT IF [id number] 06:54:00 Test Item Value Reference Range Interpretation [...] culture: Flank PainUA RFLX MICR CULT IF [id number] 06:54:00 Test Item Value Reference Range Interpretation [...] CLEAN CATCHIndication for culture: Flank PainBASIC METABOLIC [id number] 08:09:00 Test Item Value Reference Range Interpretation [...] CA) 8.9 MG/DL 8.5-10.1 N VITAMIN D [id number] 08:09:00 Test Item Value Reference Range Interpretation Comments VITAMIN D 33.2 ng/mL 30.0-100.0 Vitamin D defic iency has 25-HYDROXY (test been define d by the code = VITD25) [facility] edicine and an Endocrine So [facility] guidel ine as alevel of serum 25-OH vitamin D less than 20 ng/mL (1,2).The Endocrine Society went on to further define vitamin Dinsufficiency as a level between 21 and 29 ng/mL (2).1. IOM (Ins titute of Medicine). 2010 . Dietary reference int akes for calcium and D. [place]: [employer] .2. Caitlin MF, Jerrell [place], Melida-Michael i ROLLINS, et al. Evaluatio n, treatment, and prevention of vitamin D deficiency: an Endocrine Society clinica l practice guideline. ALLY EM. 2010; 96(7):1911-30.P erformed At: [facility] [id number] [place], [place] [id number] Abilio Rosales MD Ph:[phone] CBC W/AUTO [id number] 13:29:00 Test Item Value Reference Range Interpretation [...] code = NO DIFF/SCN CRITERIA MDIFF) SED [id number] 13:29:00 Test Item Value Reference Range Interpretation Comments SED RATE (test code = SEDW) 10 mm/hr 0-20 N URINALYSIS [id number] 13:12:00 Test Item Value Reference Range Interpretation [...] LEUU) Urine Specimen Type: Clean CatchC REACTIVE [id number] 12:47:00 Test Item Value Reference Range Interpretation Comments C REACTIVE PROTEIN (test code = 1.260 MG/DL 0.000-0.3 H CRP) BASIC METABOLIC [id number] 12:46:00 Test Item Value Reference Range Interpretation [...] CA) 8.9 MG/DL 8.5-10.1 N VITAMIN D [id number] 12:46:00 Test Item Value Reference Range Interpretation Comments VITAMIN D 25-HYDROXY (test code = VITD25) PROTHROMBIN [id number] 12:33:00 Test Item Value Reference Range Interpretation Comments PT PATIENT (test code = PTP) 11.4 SECONDS 9.3-12.9 N INTERNATIONAL NORMAL RATIO 0.99 INR Unit 0.8-1.2 N (test code = INR) THROMBOPLASTIN TIME [id number] 12:33:00 Test Item Value Reference Range Interpretation Comments THROMBOPLASTIN TIME PARTIAL 29.0 SECONDS 26-35 N (test code = PTT) CBC W/AUTO [id number] 12:32:00 Test Item Value Reference Range Interpretation [...] code = NO DIFF/SCN CRITERIA MDIFF) SED [id number] 12:32:00 Test Item Value Reference Range Interpretation Comments SED RATE (test code = SEDW) mm/hr 0-20 - XR CHEST 1 [id number] 12:00:00 Name: MARCELLE WEISS [facility] : 1970 Age/S: 49 / F [address] [address] Unit #: [id number] Loc: [place] [address] Phys: Abilio Maldonado MD Acct: [id number] Dis Date: Status: PRE SDC PHONE #: [phone] Exam Date: 03/03/2019 1152 FAX #: Reason: PRE OP EXAMS: CPT: [id number] XR CHEST 1 V 84156 Fluoro Time: DAP (Gy m2): Air Kerma [...] PAGE 1 Signed Report Name: MARCELLE WEISS [facility] : 1970 Age/S: 49 / F [address] [address] Unit #: [id number] Loc: [place] [address] Phys: Abilio Maldonado MD Acct: [id number] Dis Date: Status: PRE SDC PHONE #: [phone] Exam Date: 03/03/2019 1152 FAX #: Reason: PRE OP EXAMS: CPT: [id number] XR CHEST 1 V 19393 Fluoro Time: DAP (Gy m2): Air Kerma (mGy): <Continued> Technologist: Kevin Herrera, RT(R)(CT); Lisa Machuca RT(R) Trnscb Date/Time: 03/03/2019 (1200) [id number] Orig Print D/T: S: 03/03/2019 (2891) PAGE 2 Signed Report
[2019-12-18 12:30] LABS: Blood Gas Oxyhemoglobin 88.7 % (94-97); Blood O2 Saturation 96.2 % (92-98.5)
[2019-12-18] MEDS ORDERED: propofoL 1,000 MG/100 ML VIAL IV ONE ×4 (12:36→22:55)
[2019-12-18] MEDS ORDERED: MIDAZOLAM HCL 2 MG/2 ML INJ ONE ×4 (12:36→13:46)
--- NOTE | 2019-12-18 12:57 | RAD REPORT ---
EXAM DESCRIPTION: RAD - Chest Single View - 12/18/2019 12:50 pm CLINICAL HISTORY: resp failure Chest pain. COMPARISON: Chest Single View dated 11/06/2019; Chest Single View dated 09/24/2019; Chest Single View d ated 09/23/2019; Chest Single View dated 02/21/2019 FINDINGS: Portable technique limits examination quality. Tip of the ET tube is above the geovanny. Enteric tube appears coiled upon itself in the esophagus. Mil d bilateral pulmonary opacities are present likely representing pulmonary edema. The heart is moderat mick enlarged. No displaced fractures. IMPRESSION: ET tube tip is above the geovanny. Enteric tube is coiled upon itself in the mid and upper esophagus.
[2019-12-18] MEDS ORDERED: METHYLPREDNISOLONE 125 MG INJ ONE (13:00)
[2019-12-18] MEDS ORDERED: LEVALBUTEROL 1.25 MG/3 ML NEB ONE (13:00)
[2019-12-18] MEDS ORDERED: FUROSEMIDE 40 MG/4 ML VIAL ONE (13:00)
[2019-12-18 13:56] LABS: Absolute Lymphocytes (CBC) 0.5 K/uL (0.7-4.9); Basophils % 0.2 % (0-1.3); Hematocrit 41.4 % (36.0-45.0); Lymphocytes % 5.3 % (15.3-44.8); MPV 8.9 fL (7.6-11.3); RBC Red Blood Cell Count 4.38 M/uL (3.86-4.86)
[2019-12-18 14:51] LABS: ALT/SGPT 26 U/L (12-78); AST/SGOT 30 U/L (15-37); Albumin 3.1 g/dL (3.4-5.0); Alkaline Phosphatase 133 U/L (45-117); BUN Blood Urea Nitrogen 19 mg/dL (7-18); Bicarbonate 38 mmol/L (21-32); Bilirubin Direct < 0.1 mg/dL (0-0.2); Bilirubin Total 0.2 mg/dL (0.2-1.0); Glucose Level 121 mg/dL (74-106); NT PRO-BNP 2687 pg/mL (<125); Potassium 5.2 mmol/L (3.5-5.1); Protein, Total 6.8 g/dL (6.4-8.2); Sodium Level 143 mmol/L (136-145); Troponin (Emerg Dept Use Only) 0.02 ng/mL (0.0-0.045)
[2019-12-18 14:52] LABS: Arterial Blood Carboxyhemoglob 5.2 % (0-1.5); Blood Gas Oxyhemoglobin 86.1 % (94-97); Blood O2 Saturation 91.7 % (92-98.5)
--- NOTE | 2019-12-18 14:52 | ER ---
Nurse's Notes [facility] Name: Oleg Rosenberg Age: 49 yrs Sex: Female : 1970 Arrival Date: 12/18/2019 Time: 12:06 Bed 4 Private MD: Diagnosis: Acute pulmonary edema;Acute respiratory failure with hypercapnia Presentation: 12/17 11:50 Chief complaint: EMS states: called out by the spouse, pt was found in her bed supine sv not breathing right by spouse, last seen breathing right was around 0130. On EMS arrival pt was pale, cyanotic with O2 sat in the 50s. Pt was intubated on scene with a 6.5 ETT, 23 at teeth. 14F NGT to left nare. Ketamine 200 and Succinylcholine 200 given prior to intubation. Coronavirus screen: At this time, unable to obtain information related to travel outside the [place] difficulty breathing, Client presents with at least one sign or symptom that may indicate coronavirus-19. Provider contacted for isolation considerations. Ebola Screen: No symptoms or risks identified at this time. Risk Assessment: Do you want to hurt yourself or someone else? Patient reports no desire to harm self or others. 11:50 Method Of Arrival: EMS: [facility] sv 11:50 Acuity: AAYUSH 1 sv 11:50 Initial Sepsis Screen: Does the patient meet any 2 criteria? Temp <36.0*C (96.8*F)) or sv > 38.3*C (100.9*F). Altered Mental Status. Yes Does the patient have a suspected source of infection? No. Patient's initial sepsis screen is negative. Onset of symptoms was December 18, 2019. Triage Assessment: 11:50 General: Appears in no apparent distress. obese, well developed, Behavior is sv unresponsive. intubated. Pain: Unable to use pain scale. FLACC scale score is 0 out of 10. Neuro: Level of Consciousness is unresponsive, intubated. Oriented to none. Neuro: Pupils are reactive. Cardiovascular: Patient's skin is warm and dry. Pulses are palpable in right radial artery and left radial artery Rhythm is sinus rhythm. Respiratory: Airway via oral intubation Respiratory effort is even, unlabored, Respiratory pattern is regular, symmetrical, Ventilator assessment: ET Tube: 6.5 23 cm teeth Ventilator Mode: Assist Control (AC) Tidal Volume: 600 Respiratory Rate: 18 FiO2: 60% PEEP: 5 HOB > 30 degrees. Patient repositioned to supine position. Suction provided. Breath sounds are clear bilaterally. the patient reports symptoms have resolved. GI: Abdomen is obese, Abd is soft and non tender X 4 quads. GI: NGT in place, clamped. Site clean. 14F left nare. Derm: Skin is normal. Musculoskeletal: Range of motion: intact in all extremities. Historical: - Allergies: 17:23 Aspirin; sv 17:23 Dilaudid; sv 17:23 Iodinated Contrast Media - IV Dye; sv 17:23 Iodine; sv 17:23 Morphine; sv 17:23 Mucinex; sv 17:23 NSAIDS; sv 17:23 PENICILLINS; sv 17:23 Zofran; sv - PMHx: 17:23 Asthma; Bipolar disorder; kidney cancer; Bronchitis; COPD; Depression; sv - PSHx: 17:23 lap band surgery and removal; sv - Immunization history:: Adult Immunizations unknown. - Family history:: not pertinent. - Social history:: Smoking status: unknown. - Hospitalizations: : No recent hospitalization is reported. Screenin:25 Abuse screen: unable to complete. Nutritional screening: unable to complete . sv Tuberculosis screening: unable to complete . Fall Risk No fall in past 12 months (0 pts). Secondary diagnosis (15 points) unresponsive. IV access (20 points). Ambulatory Aid- None/Bed Rest/Nurse Assist (0 pts). Gait- Normal/Bed Rest/Wheelchair (0 pts) Mental Status- Overestimates/Forgets Limitations (15 pts.). Total Mark Fall Scale indicates High Risk Score (45 or more points). Fall prevention measures have been instituted. Side Rails Up X 2 Placed Close to Nursing Station 1:1 Attendant Assigned Frequent Obs/Assessments Occuring As available patient and family educated on Fall Prevention Program and Strategies. Assessment: 12:13 Reassessment: Pt's son Raúl called for update, advised son that pt is iw intubated and will be in ER for next few hours, will call back with update. 13:00 Reassessment: Patient appears in no apparent distress at this time. No changes from sv previously documented assessment. See triage assessment. Pt remains intubated and sedated. 13:00 Respiratory: Ventilator assessment: HOB > 30 degrees. Suction provided. sv 14:15 Reassessment: Patient appears in no apparent distress at this time. No changes from sv previously documented assessment. See triage assessment. Pt remains intubated and sedated. 14:15 Respiratory: Ventilator assessment: HOB > 30 degrees. Suction provided. sv 15:10 Reassessment: No changes from previously documented assessment. See triage assessment. sv Pt remains intubated and sedated. 15:10 Respiratory: Ventilator assessment: HOB > 30 degrees. Suction provided. sv 16:00 Reassessment: Patient appears in no apparent distress at this time. No changes from sv previously documented assessment. Pt remains intubated and sedated. 17:00 Reassessment: Patient appears in no apparent distress at this time. Pt remains sv intubated and sedated. Vital Signs: 12:05 BP 151 / 84; Pulse 71; Resp 14; Pulse Ox 97% ; Height 5 ft. 6 in. (167.64 cm); sv 12:30 BP 99 / 66; Pulse 70; Resp 14; Pulse Ox 97% ; sv 12:35 BP 124 / 77; Pulse 70; Resp 18 A; Temp 95.5(C); Pulse Ox 98% on ETT vent; Weight 163.29 aa5 kg; 13:00 BP 127 / 94; Pulse 66; Resp 23; Pulse Ox 98% ; sv 13:30 BP 123 / 75; Pulse 62; Resp 19; Temp 95.8(C); Pulse Ox 97% on 60% FiO2 ETT vent; sv 14:00 BP 109 / 53; Pulse 58; Resp 21; Pulse Ox 100% on 60% FiO2 ETT vent; sv 14:30 BP 122 / 84; Pulse 57; Resp 18; Temp 96.7(C); Pulse Ox 100% on 60% FiO2 ETT vent; sv 15:00 BP 131 / 83; Pulse 58; Resp 18; Pulse Ox 98% on ETT vent; sv 15:30 BP 135 / 87; Pulse 59; Resp 18; Pulse Ox 98% on ETT vent; sv 16:00 BP 130 / 92; Pulse 61; Resp 18; Pulse Ox 98% on ETT vent; sv 16:30 BP 132 / 87; Pulse 67; Resp 18; Temp 98.8(C); Pulse Ox 92% on ETT vent; sv 17:00 BP 143 / 98; Pulse 81; Resp 21; Temp 99.5(C); Pulse Ox 96% on 60% FiO2 ETT vent; sv 18:15 BP 143 / 89; Pulse 72; Resp 18; Temp 100(C); Pulse Ox 97% on 60% FiO2 ETT vent; sv 12:05 Body Mass Index 58.10 (163.29 kg, 167.64 cm) sv ED Course: 11:50 Patient has correct armband on for positive identification. Placed in gown. Bed in low sv position. Call light in reach. Side rails up X2. patient monitor on. Pulse ox on. NIBP on. Head of bed. 12:00 Arm band placed on. sv 12:06 Patient arrived in ED. rn 12:06 Ihsan Song MD is Attending Physician. rn 12:15 Missed attempt(s): 20 gauge in left antecubital area. Bleeding controlled, band aid dh3 applied, catheter tip intact. 12:15 Guy cath inserted, using sterile technique, 16 Fr., by me, balloon inflated, to aa5 gravity drainage, Patient tolerated well. 12:20 Missed attempt(s): 22 gauge in left forearm. Bleeding controlled, band aid applied, aa5 catheter tip intact. 12:25 Inserted saline lock: 22 gauge in left upper arm, using aseptic technique. aa5 12:26 First set of blood cultures drawn by me. aa5 12:50 XRAY CXR (1 view) In Process Unspecified. EDMS 13:30 NGT: Removed intact. EMS 14F NGT to the left nare removed d/t xray showing it was sv coiled in the esophagus. Attempted to pull tube back and advance but was unsuccessful. Attempted to place a new 14F NGT to the right nare and oral route but was unsuccessful. 14:00 Assisted provider with central line placement. Set up central line tray. Triple lumen sv line placed in right femoral. Line placed by Ihsan Song MD Placement verified by blood return, Dressed with Tegaderm, Blood was collected. Patient tolerated well. Before procedure, did Practitioner(s) obtain informed consent? No. Patient \T\ family education about procedure, CLABSI prevention and S/S of infection? Yes. Time-out/Briefing performed prior to start of procedure? Yes. Was handwashing/sanitizing done immediately prior to procedure? Yes. Was patient positioned to in a way to prevent air embolism? Yes. Was procedure site sterilized? Yes, with chlorhexidine. Was the site allowed to dry? Yes. Was local anesthetic and/or sedation utilized? Yes. During the procedure, did the Practitioner(s) maintain a sterile field? Yes. Were unused ports clamped during insertion? Yes. Was a 2nd qualified MD obtained after 3 unsuccessful insertion attempts? Yes. Was blood aspirated from each lumen? Yes. After the procedure, did the Practitioner(s) clean the site and apply a sterile dressing? Yes. 14:15 NGT: inserted 14 Fr. via left nare. other done by Marii DYE verified placement of air sv over stomach, verified return of gastric contents, to intermittent suction. Returned bile. Patient tolerated poorly. 14:17 Nancy Mckeon, HARDIK is Primary Nurse. sv 14:46 Triage completed. sv 14:50 Giorgio Stallings DO is Hospitalizing Provider. rn 15:00 One-on-one care X 180 minutes. sv 18:15 Patient admitted, IV remains in place. intact. sv 19:45 Primary Nurse role handed off by Nancy Mckeon RN sv 20:14 Sukhi Edmondson, RN is Primary Nurse. rv 12/18 03:42 NGT: inserted 16 Fr. other OGT route verified placement of air over stomach, verified sg return of gastric contents, to intermittent suction. Returned bile. Patient tolerated well. 07:03 Primary Nurse role handed off by Sukhi Edmondson, HARDIK bp 07:03 Kory Belle, RN is Primary Nurse. bp Restraints: 12/17 14:00 Non-Violent Restraint: Order obtained. Initiated on December 18, 2019 at 14:00 Restraint sv Education provided to family/significant other/legally authorized pharmacy sales representative. Actions/Behavior observed: Confused/disoriented, has difficulty remembering/follow instructions, has impaired decision making, has decreased level of consciousness, unable to follow instructions, repeated attempts to remove/tamper lines/tubes/IV med devices \T\ wound dressing, repeated attempts to remove artifical airway/mechanical resp support, Less restrictive alternatives attempted: decrease environmental stimuli, 1:1 patient care, placed near Nurse station, reoriented to location, medications evaluated, medicated for pain/anxiety, lines/tubes covered, eliminated unnecessary lines/tubes, verbal de-escalation performed, Alternative interventions: Ineffective. Clinical justification for use: airway protection, line protection, patient safety, Mental status: agitated/restless, Cognition: poor judgement, poor safety awareness, impulsive, poor attention/concentration, unable to follow commands, short term memory loss, Circulation: Within defined parameters (based on Cardiovascular assessment) Skin integrity: Within defined parameters (based on Integumentary assessment) Signs of injury related to restraint: No injuries noted. Restraint status: Side rails up x 4 Started. Soft wrist restraint (Right) Started. Soft wrist restraint (Left) Started. Criteria to discontinue Restraint not met. Restraint continued. 16:00 Non-Violent Restraint: Actions/Behavior observed: Confused/disoriented, has difficulty sv remembering/follow instructions, has impaired decision making, has decreased level of consciousness, unable to follow instructions, repeated attempts to remove/tamper lines/tubes/IV med devices \T\ wound dressing, repeated attempts to remove artifical airway/mechanical resp support, Less restrictive alternatives attempted: decrease environmental stimuli, 1:1 patient care, placed near Nurse station, reoriented to location, medications evaluated, medicated for pain/anxiety, lines/tubes covered, eliminated unnecessary lines/tubes, verbal de-escalation performed, Alternative interventions: Ineffective. Clinical justification for use: airway protection, line protection, patient safety, Mental status: agitated/restless, Cognition: poor judgement, poor safety awareness, impulsive, poor attention/concentration, unable to follow commands, short term memory loss, Circulation: Within defined parameters (based on Cardiovascular assessment) Skin integrity: Within defined parameters (based on Integumentary assessment) Signs of injury related to restraint: No injuries noted. Range of Motion (ROM): patient asleep. Hydration/Food: patient asleep. Elimination/Hygiene: Patient asleep. with urinary catheter, Restraint status: Side rails up x 4 Continued. Soft wrist restraint (Right) Continued. Soft wrist restraint (Left) Continued. Criteria to discontinue Restraint not met. Restraint continued. 18:00 Non-Violent Restraint: Actions/Behavior observed: Confused/disoriented, has difficulty sv remembering/follow instructions, has impaired decision making, has decreased level of consciousness, unable to follow instructions, repeated attempts to remove/tamper lines/tubes/IV med devices \T\ wound dressing, repeated attempts to remove artifical airway/mechanical resp support, Less restrictive alternatives attempted: decrease environmental stimuli, 1:1 patient care, placed near Nurse station, reoriented to location, medications evaluated, medicated for pain/anxiety, lines/tubes covered, eliminated unnecessary lines/tubes, verbal de-escalation performed, Alternative interventions: Ineffective. Clinical justification for use: airway protection, line protection, patient safety, Mental status: patient asleep, Cognition: poor judgement, poor safety awareness, impulsive, poor attention/concentration, unable to follow commands, short term memory loss, Circulation: Within defined parameters (based on Cardiovascular assessment) Skin integrity: Within defined parameters (based on Integumentary assessment) Signs of injury related to restraint: No injuries noted. Range of Motion (ROM): patient asleep. Hydration/Food: patient asleep. Elimination/Hygiene: Patient asleep. with urinary catheter, Restraint status: Side rails up x 4 Continued. Soft wrist restraint (Right) Continued. Soft wrist restraint (Left) Continued. Criteria to discontinue Restraint not met. Restraint continued. Administered Medications: 12:25 Drug: Versed 3 mg Route: IVP; Site: left upper arm; sv 13:00 Follow up: Response: No adverse reaction sv 12:38 Drug: Propofol 5 mcg/kg/min Route: IV; Rate: calculated rate; Site: left upper arm; aa5 13:00 Follow up: Response: No adverse reaction; Rate change 10 calculated rate sv 13:35 Follow up: Response: No adverse reaction; Rate change 15 calculated rate sv 14:20 Follow up: Response: No adverse reaction; Rate change 25 calculated rate sv 22:26 Follow up: IV Status: Infusion continued upon admission rv 12:57 Drug: Versed 4 mg Route: IVP; Site: left upper arm; sv 13:30 Follow up: Response: No adverse reaction sv 13:47 Drug: Versed 4 mg Route: IVP; Site: left upper arm; sv 14:00 Follow up: Response: No adverse reaction sv 14:15 Drug: Lasix 40 mg Route: IVP; Site: right femoral; sv 15:00 Follow up: Response: No adverse reaction sv 14:20 Drug: SOLU-Medrol 125 mg Route: IVP; Site: right femoral; sv 15:00 Follow up: Response: No adverse reaction sv 16:49 Not Given (Physician Discretion): Xopenex (3) 1.25 mg Inhalation once sv Output: 16:30 Urine: 1900ml (Guy); Total: 1900ml. sv Outcome: 14:51 Decision to Hospitalize by Provider. rn 18:15 Admitted to ER Hold. Please see [facility] for further documentation. sv 18:15 Condition: stable 18:15 Instructed on the need for admit. 12/18 14:19 Patient left the ED. bp Signatures: Dispatcher [employer] Nancy Traylor RN RN Adán Sullivan RN RN sg Williams, Irene, RN RN Ihsan Song MD MD rn Calderon, Audri, RN RN [facility] Paula Saxena formerly [facility] Kory Belle RN RN bp Vicente, Ronaldo, RN RN rv Corrections: (The following items were deleted from the chart) 12/17 14:48 11:00 Chief complaint: EMS states: called out by the spouse, pt was found in her bed sv supine not breathing right by spouse, last seen breathing right was around 0130. On EMS arrival pt was pale, cyanotic with O2 sat in the 50s. Pt was intubated on scene with a 6.5 ETT, 23 at teeth. 14F NGT to left nare. Ketamine 200 and Succinylcholine 200 given prior to intubation. sv 14:48 11:00 Coronavirus screen: At this time, unable to obtain information related to travel sv outside the [place] difficulty breathing, Client presents with at least one sign or symptom that may indicate coronavirus-19. Provider contacted for isolation considerations. sv 14:48 11:00 Ebola Screen: No symptoms or risks identified at this time. sv sv 14:48 11:00 Risk Assessment: Do you want to hurt yourself or someone else? Patient reports no sv desire to harm self or others. sv 14:48 11:00 Method Of Arrival: EMS: [facility] sv sv 14:48 11:00 Acuity: AAYUSH 1 sv sv 14:51 13:30 BP 123 / 75; Pulse 62bpm; Resp 19bpm; Pulse Ox 97% FiO2 60% vent; sv sv 17:13 16:30 BP 132 / 87; Pulse 67bpm; Resp 18bpm; Pulse Ox 92% ET / Ventilator; sv sv 17:35 13:00 Reassessment: Patient appears in no apparent distress at this time. No changes sv from previously documented assessment. See triage assessment. Pt remains intubated and sedated. sv 17:35 14:15 Reassessment: Patient appears in no apparent distress at this time. No changes sv from previously documented assessment. See triage assessment. Pt remains intubated and sedated. sv 17:35 15:10 Reassessment: No changes from previously documented assessment. See triage sv assessment. Pt remains intubated and sedated. sv 18:13 12:05 BP 151 / 84; Pulse 71bpm; Resp 14bpm; Pulse Ox 97%; sv sv
--- NOTE | 2019-12-18 14:52 | EDPHYS ---
Physician Documentation [facility] Name: Oleg Rosenberg Age: 49 yrs Sex: Female : 1970 Arrival Date: 12/18/2019 Time: 12:06 Bed 4 Private MD: ED Physician Ihsan Song HPI: 12/17 14:06 This 49 yrs old Female presents to ER via Unassigned with complaints of rn repsiratory failure. 14:06 Unable to obtain HPI due to altered mental status, patient is on ventilator. It is rn unknown whether or not the patient has had similar symptoms in the past. Per EMS, called out for respiratory problems, last seen normal 0130, EMS arrived and obtunded, intubated immediately with succinylcholine and ketamine. . Historical: - Allergies: 17:23 Aspirin; sv 17:23 Dilaudid; sv 17:23 Iodinated Contrast Media - IV Dye; sv 17:23 Iodine; sv 17:23 Morphine; sv 17:23 Mucinex; sv 17:23 NSAIDS; sv 17:23 PENICILLINS; sv 17:23 Zofran; sv - PMHx: 17:23 Asthma; Bipolar disorder; kidney cancer; Bronchitis; COPD; Depression; sv - PSHx: 17:23 lap band surgery and removal; sv - Immunization history:: Adult Immunizations unknown. - Family history:: not pertinent. - Social history:: Smoking status: unknown. - Hospitalizations: : No recent hospitalization is reported. ROS: 14:09 Unable to obtain ROS due to patient is on ventilator. rn Exam: 14:09 Constitutional: Overweight female, responds to painful stimuli, opens eyes, intubated rn Head/Face: Normocephalic, atraumatic. Cardiovascular: Regular rate and rhythm. No pulse deficits. Respiratory: + coarse bilateral breath sounds, intubated Abdomen/GI: soft, non-tender, no grimacing Skin: Warm, dry MS/ Extremity: Pulses equal, no cyanosis. Neurovascular intact. Full, normal range of motion. Equal circumference. Neuro: Responds to painful stimuli, opens eyes, shakes head to questions. Vital Signs: 12:05 BP 151 / 84; Pulse 71; Resp 14; Pulse Ox 97% ; Height 5 ft. 6 in. (167.64 cm); sv 12:30 BP 99 / 66; Pulse 70; Resp 14; Pulse Ox 97% ; sv 12:35 BP 124 / 77; Pulse 70; Resp 18 A; Temp 95.5(C); Pulse Ox 98% on ETT vent; Weight 163.29 aa5 kg; 13:00 BP 127 / 94; Pulse 66; Resp 23; Pulse Ox 98% ; sv 13:30 BP 123 / 75; Pulse 62; Resp 19; Temp 95.8(C); Pulse Ox 97% on 60% FiO2 ETT vent; sv 14:00 BP 109 / 53; Pulse 58; Resp 21; Pulse Ox 100% on 60% FiO2 ETT vent; sv 14:30 BP 122 / 84; Pulse 57; Resp 18; Temp 96.7(C); Pulse Ox 100% on 60% FiO2 ETT vent; sv 15:00 BP 131 / 83; Pulse 58; Resp 18; Pulse Ox 98% on ETT vent; sv 15:30 BP 135 / 87; Pulse 59; Resp 18; Pulse Ox 98% on ETT vent; sv 16:00 BP 130 / 92; Pulse 61; Resp 18; Pulse Ox 98% on ETT vent; sv 16:30 BP 132 / 87; Pulse 67; Resp 18; Temp 98.8(C); Pulse Ox 92% on ETT vent; sv 17:00 BP 143 / 98; Pulse 81; Resp 21; Temp 99.5(C); Pulse Ox 96% on 60% FiO2 ETT vent; sv 18:15 BP 143 / 89; Pulse 72; Resp 18; Temp 100(C); Pulse Ox 97% on 60% FiO2 ETT vent; sv 12:05 Body Mass Index 58.10 (163.29 kg, 167.64 cm) sv Procedures: 14:09 Central Line: the site was prepped with Betadine, in sterile fashion, a triple lumen rn catheter was inserted, in the right femoral vein, in 2 attempts. placement was verified, by blood return, the site was dressed with Tegaderm, using sterile technique, the patient tolerated the procedure, well, Using ultrasound guidance given patient body habitus. MDM: 12:06 Patient medically screened. rn 14:09 Differential diagnosis: CHF exacerbation, Chronic Obstructive Pulmonary Disease rn Myocardial Infarction pneumonia, pulmonary edema. Differential diagnosis: Sepsis. Data reviewed: vital signs, nurses notes. Counseling: I had a detailed discussion with the patient and/or guardian regarding: the historical points, exam findings, and any diagnostic results supporting the discharge/admit diagnosis, lab results, radiology results, the need for further work-up and treatment in the hospital. Response to treatment: the patient's symptoms have mildly improved after treatment, and as a result, I will admit patient. Admission orders: after a detailed discussion of the patient's condition and case, the admit orders are written by me. ED course: Pt admitted to Dr. Stallings for respiratory failure and CO2 retention, improving, intubated and central line placed. . 12/17 12:07 Order name: ABG; Complete Time: 13:16 12/17 12:07 Order name: Blood Culture Adult (2) 12/17 12:07 Order name: BMP 12/17 12:07 Order name: CBC with Diff 12/17 12:07 Order name: Hepatic Function 12/17 12:07 Order name: Magnesium 12/17 12:07 Order name: NT PRO-BNP 12/17 12:07 Order name: Troponin (emerg Dept Use Only) 12/17 12:12 Order name: Procalcitonin; Complete Time: 14:13 12/17 12:12 Order name: Lactate; Complete Time: 14:05 12/17 14:20 Order name: ABG 12/17 14:43 Order name: COVID-19 12/17 15:39 Order name: SARS-COV-2 RT PCR [facility] 12/17 12:07 Order name: XRAY CXR (1 view); Complete Time: 13:16 12/17 16:30 Order name: CBC Smear Scan [facility] 12/17 18:34 Order name: Blood Culture [facility] 12/17 18:50 Order name: Urine Drug Screen [facility] 12/17 23:03 Order name: Creatine Phosphokinase [facility] 12/17 23:03 Order name: CKMB Creatine Kinase MB [facility] 12/17 23:03 Order name: Troponin I [facility] 12/18 06:06 Order name: ABG Arterial Blood Gas [facility] 12/18 06:08 Order name: CBC with Automated Diff [facility] 12/18 06:32 Order name: Basic Metabolic Panel [facility] 12/18 06:32 Order name: Creatine Phosphokinase [facility] 12/18 06:32 Order name: CKMB Creatine Kinase MB [facility] 12/18 06:32 Order name: Troponin I [facility] 12/18 06:32 Order name: Magnesium [facility] 12/18 10:45 Order name: Sputum Culture [facility] 12/18 13:21 Order name: Thyroid Stimulating Hormone [facility] 12/17 12:07 Order name: Guy; Complete Time: 14:20 rn 12/17 12:07 Order name: Call RT; Complete Time: 12:11 rn 12/17 12:07 Order name: EKG; Complete Time: 12:08 rn 12/17 12:07 Order name: Cardiac monitoring; Complete Time: 14:21 rn 12/17 12:07 Order name: EKG - Nurse/Tech; Complete Time: 14:21 rn 12/17 12:07 Order name: IV Saline Lock; Complete Time: 14:21 rn 12/17 12:07 Order name: Labs collected and sent; Complete Time: 14:21 rn 12/17 12:07 Order name: O2 Per Protocol; Complete Time: 14: rn 12/17 12:07 Order name: O2 Sat Monitoring; Complete Time: 14: rn 12/17 13:34 Order name: Labs - recollect needed: labs printing labels for recollect; Complete Time: eb 14:12/17 13:55 Order name: Labs - recollect needed: recollect chemistries; Complete Time: 14: eb 12/18 09:29 Order name: RAD [facility] Administered Medications: 12:25 Drug: Versed 3 mg Route: IVP; Site: left upper arm; sv 13:00 Follow up: Response: No adverse reaction sv 12:38 Drug: Propofol 5 mcg/kg/min Route: IV; Rate: calculated rate; Site: left upper arm; aa5 13:00 Follow up: Response: No adverse reaction; Rate change 10 calculated rate sv 13:35 Follow up: Response: No adverse reaction; Rate change 15 calculated rate sv 14:20 Follow up: Response: No adverse reaction; Rate change 25 calculated rate sv 22:26 Follow up: IV Status: Infusion continued upon admission rv 12:57 Drug: Versed 4 mg Route: IVP; Site: left upper arm; sv 13:30 Follow up: Response: No adverse reaction sv 13:47 Drug: Versed 4 mg Route: IVP; Site: left upper arm; sv 14:00 Follow up: Response: No adverse reaction sv 14:15 Drug: Lasix 40 mg Route: IVP; Site: right femoral; sv 15:00 Follow up: Response: No adverse reaction sv 14:20 Drug: SOLU-Medrol 125 mg Route: IVP; Site: right femoral; sv 15:00 Follow up: Response: No adverse reaction sv 16:49 Not Given (Physician Discretion): Xopenex (3) 1.25 mg Inhalation once sv Disposition: 14:50 Critical Care:. rn Disposition: 12/18/19 14:51 Hospitalization ordered by Giorgio Stallings for Inpatient Admission. Preliminary diagnosis are Acute pulmonary edema, Acute respiratory failure with hypercapnia. - Bed requested for [facility] ER HOLD. - Status is Inpatient Admission. bp - Condition is Fair. - Problem is new. - Symptoms have improved. Critical care time excluding procedures: 14:50 Critical care time: Bedside Care: 25 minutes, Consultation: 5 minutes. Total time: 30 rn minutes Signatures: Dispatcher [employer] [facility] Nancy Mckeon RN Mónica Rao RN Ihsan Banks MD MD rn Calderon, Audri RN RN aa5 Kory Belle, RN RN Marlee Carvajal Ronaldo RN rv Corrections: (The following items were deleted from the chart) 14:25 12:12 CORONAVIRUS+ ordered. [facility] 15:03 14:51 Hospitalization Ordered by Giorgio Stallings DO for Inpatient Admission. Preliminary dw diagnosis is Acute pulmonary edema; Acute respiratory failure with hypercapnia. Bed requested for Intensive Care Unit. Status is Inpatient Admission. Condition is Fair. Problem is new. Symptoms have improved. rn 15:03 15:03 12/18/2019 14:51 Hospitalization Ordered by Giorgio Stallings DO for Inpatient dw Admission. Preliminary diagnosis is Acute pulmonary edema; Acute respiratory failure with hypercapnia. Bed requested for [facility] ER HOLD. Status is Inpatient Admission. Condition is Fair. Problem is new. Symptoms have improved. dw 12/18 14:19 12/17 15:03 12/18/2019 14:51 Hospitalization Ordered by Giorgio Stallings DO for Inpatient bp Admission. Preliminary diagnosis is Acute pulmonary edema; Acute respiratory failure with hypercapnia. Bed requested for [facility] ER HOLD. Status is Inpatient Admission. Condition is Fair. Problem is new. Symptoms have improved. dw
--- NOTE | 2019-12-18 15:11 | P.HP ---
Certification for Inpatient Patient admitted to: Inpatient With expected LOS: >2 Midnights Patient will require the following post-hospital care: Home Health Services Practitioner: I am a practitioner with admitting privileges, knowledge of patient current condition, hospital course, and medical plan of care. Services: Services provided to patient in accordance with Admission requirements found in Title 42 Section 412.3 of the Code of Federal Regulations Patient History Date of Service: 12/18/19 Primary Care Provider: MARTI Becerril; Pulmonary-Dr. Stevens Reason for admission: Shortness of breath History of Present Illness: 49-year-old female with history of COPD, morbid obesity and CHF. Patient presented to the emergency room intubated. Information came from the ER physician and son. Son reports that the patient was having some shortness of breath. Apparently the son said that the father saw the not wanting to wake up. She was very lethargic. It appeared that she had some difficulty breathing. There was no mention of fever, chills, chest pain or nausea and vomiting over the last several days. EMS was called. EMS intubated the patient during the field. Upon arrival patient remained on the vent. Initial blood gases showed a pH is 7.03, pC02 of 156. Lactic acid unremarkable. Pro calcitonin unremarkable. White count 8.8, hemoglobin 12.7. Chest x-ray showed pulmonary edema. Patient received IV steroids and IV Lasix in the emergency room. Central line was placed by the ER physician. Patient currently stable at this time. I was asked to admit the patient. When I saw the patient ER, she remain intubated. She appeared to be more alert. Patient with multiple admissions for COPD exacerbations. Allergies aspirin Allergy (Severe, Verified 10/20/18 15:03) Anaphylaxis guaifenesin [From Mucinex] Allergy (Severe, Verified 10/20/18 15:03) Anaphylaxis hydromorphone HCl [From Dilaudid] Allergy (Severe, Verified 10/20/18 15:03) Anaphylaxis morphine Allergy (Severe, Verified 10/20/18 15:03) Anaphylaxis NSAIDS (Non-Steroidal Anti-Inflamma Allergy (Severe, Verified 10/20/18 15:03) Hives Penicillins Allergy (Severe, Verified 10/20/18 15:03) Anaphylaxis fentanyl Allergy (Verified 11/15/19 01:13) Itching/Hives/Rash Iodinated Contrast Media [Iodinated Contrast Media - IV Dye] Allergy (Verified 10/20/18 15:03) Anaphylaxis ondansetron [From Zofran] Allergy (Verified 10/20/18 15:03) Itching Home medications list reviewed: Yes Home Medications: Benztropine Mesylate [Cogentin*] 1 mg PO TID 10/12/18 Diazepam [Valium] 5 mg PO QID 10/12/18 Ergocalciferol (Vitamin D2) [Vitamin D 50,000 Unit Cap] 50,000 unit PO Q7D 10/20/18 Tizanidine HCl 4 mg PO BID 10/20/18 Albuterol Sulfate [Proventil Hfa] 2 puff IH QID 09/23/19 Carbamazepine [Equetro] 200 mg PO TID 09/23/19 Cariprazine HCl [Vraylar] 3 mg PO DAILY 09/23/19 Dextroamphetamine/Amphetamine [Adderall 10 mg Tablet] 10 mg PO BID 09/23/19 Fluticasone/Vilanterol [Breo Ellipta 200-25 Mcg INH] 1 each IH BID 09/23/19 Ipratropium/Albuterol Sulfate [Iprat-Albut 0.5-3(2.5) mg/3 ml] 3 ml IH QIDP PRN 09/23/19 Levalbuterol Tartrate [Levalbuterol Tartrate Hfa] 2 puff IH QIDP PRN 09/23/19 Losartan Potassium 25 mg PO DAILY 09/23/19 Multivit-Minerals/Folic/Ginkgo [One Daily Women's 50+ Tablet] 1 each PO DAILY 09/23/19 Pregabalin [Lyrica] 150 mg PO BID 09/23/19 - Past Medical/Surgical History Diabetic: No -: COPD -: Obstructive sleep apnea -: Tobacco abuse -: Chronic pain -: GERD -: Left nephrectomy -: Hysterectomy -: right lower leg I and D -: Lap band/and reversal -: -: I&D to the abdomen superficially -: left shoulder sx -: left ankle surgery Psychosocial/ Personal History: , one child, disabled. - Family History Father -: Heart disease, Hypertension, Cancer, Liver disease Notes: liver CA, cirrhosis Mother -: Lung disease Notes: copd , of morbid obesity Brother -: Hypertension Sister -: Lung disease, GI disease, Diabetes - Social History Smoking Status: Smoker current status UNK Alcohol use: No CD- Drugs: No Caffeine use: Yes Place of Residence: Home Review of Systems is unable to be obtained Physical Examination - Physical Exam General: Alert, Other (Patient intubated but alert.) HEENT: Atraumatic, Normocephalic Neck: Supple Respiratory: Diminished (Diminished to the bases) Cardiovascular: Normal pulses, Regular rate/rhythm Gastrointestinal: Normal bowel sounds, Soft and benign, Non-distended, No tenderness, No masses, No rebound, No guarding, Other (Patient morbidly obese) Musculoskeletal: No tenderness, No warmth Integumentary: Tenderness/swelling (Nonpitting edema to the lower extremities b ilateral) Neurological: Normal strength at 5/5 x4 extr, Normal tone - Studies Laboratory Data (last 24 hrs) 12/18/19 14:10: Sodium 143, Potassium 5.2 H, BUN 19 H, Creatinine 0.72, Glucose 121 H, Magnesium 2.0, Total Bilirubin 0.2, AST 30, ALT 26, Alkaline Phosphatase 133 H 12/18/19 13:37: WBC 8.8, Hgb 12.7, Hct 41.4, Plt Count 177 Assessment and Plan - Plan Impression: Dyspnea secondary to acute on chronic respiratory failure with hypercapnia and hypoxia suspect COPD exacerbation and acute on chronic diastolic CHF complicated with hypoventilation obesity syndrome Hypertension Obesity History of tobacco abuse Chronic pain Plan: Dyspnea secondary to acute on chronic respiratory failure with hypercapnia and hypoxia suspect COPD exacerbation and acute on chronic diastolic CHF complicated with hypoventilation obesity syndrome: Patient will be admitted to ICU. Continue with vent protocol. Respiratory consulted. Case discussed with pulmonology. This does not appear to be is sepsis related. Patient with multiple admissions for acute on chronic respiratory failure. Patient likely hypoventilating or using too much oxygen at home. Will discuss with pulmonology. Patient may benefit with noninvasive ventilator. COVID performed. Continue IV Lasix. Continue IV Solu-Medrol. Continue COPD treatment. Will continue monitor closely. Await recommendations by pulmonology. Will provide DVT prophylaxis. Continue current plan of care. Reassess tomorrow. Anticipate extubation as early as tomorrow. Hypertension: Need to obtain and verify home medication. Obesity, BMI greater than 40: Will address lifestyle modification education. History of tobacco abuse: To determine if the patient is still smoking. Chronic pain: Hold all muscle relaxers and pain medication at this time. Will check urine drug screen. Discharge Plan: Home Plan to discharge in: Greater than 2 days - Advance Directives Does patient have a Living Will: No Does patient have a Durable POA for Healthcare: No - Code Status/Comfort Care Code Status Assessed: No (Will address within the next 24 hours) Time Spent Managing Pts Care (In Minutes): 55
[2019-12-18 16:29] LABS: Anisocytosis 1+; Blood Morphology Comment NOTED (NOT SEEN); Platelet Estimate DECR; Poikilocytosis 2+; Urine White Blood Cell Casts OK
[2019-12-18] MEDS ORDERED: ACETAMINOPHEN 500 MG TAB PO PRN (18:03)
[2019-12-18] MEDS: FUROSEMIDE 40 MG/4 ML VIAL IV SCH (18:03)
[2019-12-18 18:50] LABS: Barbiturates NEGATIVE (NEGATIVE); Benzodiazepines POSITIVE (NEGATIVE); Cocaine NEGATIVE (NEGATIVE); METHAMPHETAM NEGATIVE (NEGATIVE); Methadone NEGATIVE (NEGATIVE); Opiates POSITIVE (NEGATIVE); Phencyclidine NEGATIVE (NEGATIVE); THC Cannibis NEGATIVE (NEGATIVE)
[2019-12-18] MEDS: ENOXAPARIN 40 MG/0.4 ML SQ SCH (19:00)
[2019-12-18] MEDS ORDERED: ARFORMOTEROL TARTRATE 15 MCG/2 ML VIAL.NEB ONE (19:51)
[2019-12-18] MEDS: ARFORMOTEROL TARTRATE 15 MCG/2 ML VIAL.NEB NEB SCH (20:15)
[2019-12-18] MEDS ORDERED: ENOXAPARIN 40 MG/0.4 ML SQ ONE (20:28)
[2019-12-18] MEDS: METHYLPREDNISOLONE 125 MG INJ IV SCH (21:00)
[2019-12-18 23:03] LABS: CKMB Creatine Kinase MB 1.7 ng/mL (0.3-3.6); Creatine Phosphokinase 96 U/L (26-192); Troponin I < 0.02 ng/mL (0.0-0.045)
[2019-12-18] MEDS: ACETAMINOPHEN 650MG/RECT SUPP PR PRN (23:27)
[2019-12-18] MEDS ORDERED: METHYLPREDNISOLONE 40 MG INJ ONE (23:27)
[2019-12-19] MEDS ORDERED: propofoL 1,000 MG/100 ML VIAL IV ONE ×3 (01:33→06:40)
[2019-12-19] MEDS: ACETAMINOPHEN 650MG/RECT SUPP PR PRN (05:01)
[2019-12-19] MEDS ORDERED: ACETAMINOPHEN 650MG/RECT SUPP PR ONE (05:08)
[2019-12-19 05:52] LABS: Basophils % 0.6 % (0-1.3); Hematocrit 37.4 % (36.0-45.0); MPV 9.4 fL (7.6-11.3); RBC Red Blood Cell Count 4.12 M/uL (3.86-4.86)
[2019-12-19 06:04] LABS: Arterial Blood Carboxyhemoglob 1.8 % (0-1.5); Blood Gas Oxyhemoglobin 91.6 % (94-97); Blood O2 Saturation 94.1 % (92-98.5)
[2019-12-19 06:06] LABS: BUN Blood Urea Nitrogen 17 mg/dL (7-18); Bicarbonate 37 mmol/L (21-32); CKMB Creatine Kinase MB < 1.0 ng/mL (0.3-3.6); Creatine Phosphokinase 70 U/L (26-192); Glucose Level 123 mg/dL (74-106); Magnesium 1.9 mg/dL (1.8-2.4); Potassium 3.9 mmol/L (3.5-5.1); Sodium Level 141 mmol/L (136-145); Troponin I < 0.02 ng/mL (0.0-0.045)
[2019-12-19] MEDS: PIPER/TAZO/NS 3.375gm 3.375 GM/100 ML BAG IVPB SCH ×2 (06:18→16:42)
[2019-12-19] MEDS ORDERED: PIPER/TAZO/NS 3.375gm 3.375 GM/100 ML BAG ONE ×2 (06:25→16:50)
[2019-12-19] MEDS ORDERED: MIDAZOLAM HCL 2 MG/2 ML INJ ONE (07:24)
[2019-12-19] MEDS: ARFORMOTEROL TARTRATE 15 MCG/2 ML VIAL.NEB NEB SCH ×2 (08:34→21:00)
[2019-12-19] MEDS ORDERED: ARFORMOTEROL TARTRATE 15 MCG/2 ML VIAL.NEB ONE (08:35)
--- NOTE | 2019-12-19 08:58 | P.PN ---
Subjective Date of Service: 12/19/19 Primary Care Provider: MARTI Becerril; Pulmonary-Dr. Stevens Chief Complaint: Shortness of breath Subjective: Other (Patient remains intubated. Patient did have fever last night.) Physical Examination - Vital Signs Temperature: 99.7 F Blood Pressure: 149/87 Pulse: 95 Respirations: 23 Pulse Ox (%): 95 - Physical Exam General: Other (patient remains sedated and intubated) Neck: Supple Respiratory: Clear to auscultation bilaterally Cardiovascular: Normal pulses, Regular rate/rhythm Gastrointestinal: Other (Patient morbidly obese) - Studies Laboratory Data (last 24 hrs) 12/18/19 14:10: Sodium 143, Potassium 5.2 H, BUN 19 H, Creatinine 0.72, Glucose 121 H, Magnesium 2.0, Total Bilirubin 0.2, AST 30, ALT 26, Alkaline Phosphatase 133 H 12/18/19 13:37: WBC 8.8, Hgb 12.7, Hct 41.4, Plt Count 177 Microbiology Data (last 24 hrs): 12/18/19 12:26 Blood - Blood Anaerobic Blood Culture - Final Medications List Reviewed: Yes Assessment & Plan Discharge Plan: Home Plan to discharge in: Greater than 2 days Physician Review Additional Text: Impression: Dyspnea secondary to acute on chronic respiratory failure with hypercapnia and hypoxia suspect COPD exacerbation with possible aspiration pneumonia and acute on chronic diastolic CHF complicated with hypoventilation obesity syndrome Hypertension Obesity, BMI-greater than 50 History Left ankle fracture History of tobacco abuse Chronic pain Depression with anxiety Plan: Dyspnea secondary to acute on chronic respiratory failure with hypercapnia and hypoxia suspect COPD exacerbation with possible aspiration pneumonia and acute on chronic diastolic CHF complicated with hypoventilation obesity syndrome: Patient had fever last night. Initial lactic acid and pro calcitonin negative. Will start IV Zosyn. Will recheck chest x-ray today. Patient remains on the ventilator. Await further recommendations from pulmonology. Possible extubation today. Continue IV steroids. Continue IV Lasix. Spoke with son about patient's COPD treatment at home. Patient uses home oxygen and neb ulizers. She may be increasing her oxygen home which may have led to her hypercapnia. Patient will likely need education on this. Will discuss further with pulmonology. Anticipate improvement over the next 48-72 hr. Son also reports that she had a left ankle fracture in the past with surgery. Son will bring boot for the left foot. She is not to put any pressure on this. Will need physical therapy. Patient will likely go home with home health and physical therapy at discharge. I will turn the service over to the hospitalist team tomorrow. I will go plan of care with him. Hypertension: Will provide medication. Obtain home medication to review. History left ankle fracture: Patient being followed by orthopedics as an outpatient. Son will bring boot for the left foot. No weight-bearing on foot. Patient will need physical therapy. Obesity, BMI greater than 40: Will address lifestyle modification education. History of tobacco abuse: Need to determine if patient still smoking at home. Chronic pain: Hold all muscle relaxers and pain medication at this time. Will need to verify home medication. May need to adjust medication Depression with anxiety: Will continue oral medication once able to take oral. May need to adjust medication Time Spent Managing Pts Care (In Minutes): 55
[2019-12-19] MEDS: IPRATROPIUM BROM 0.5MG/2.5ML NEB PRN (09:00)
[2019-12-19] MEDS: ENOXAPARIN 40 MG/0.4 ML SQ SCH (09:00)
[2019-12-19] MEDS: METHYLPREDNISOLONE 125 MG INJ IV SCH (09:00)
[2019-12-19] MEDS: THIAMINE 200 MG/2 ML INJ IVP SCH (09:00)
[2019-12-19] MEDS: FOLIC ACID 1 MG in NA CHLORIDE 0.9% 50 ML IV SCH (09:00)
[2019-12-19] MEDS: ALBUTEROL 2.5 MG/3 ML NEB SOL NEB PRN (09:00)
[2019-12-19] MEDS: FUROSEMIDE 40 MG/4 ML VIAL IV SCH ×2 (09:00→16:42)
[2019-12-19] MEDS: PANTOPRAZOLE 40 MG INJ IVP SCH (09:00)
[2019-12-19] MEDS ORDERED: ALBUTEROL 2.5 MG/3 ML NEB SOL ONE (09:09)
[2019-12-19] MEDS ORDERED: HYDRALAZINE HCL 20 MG/ML VIAL IV PRN (09:09)
[2019-12-19] MEDS ORDERED: IPRATROPIUM BROM 0.5MG/2.5ML ONE (09:09)
[2019-12-19] MEDS ORDERED: PANTOPRAZOLE 40 MG INJ ONE (09:28)
[2019-12-19] MEDS ORDERED: FUROSEMIDE 40 MG/4 ML VIAL ONE ×2 (09:28→16:49)
[2019-12-19] MEDS: SODIUM CHLORIDE 0.9% 10ML INJ IV PRN (09:28)
[2019-12-19] MEDS ORDERED: METHYLPREDNISOLONE 125 MG INJ ONE (09:28)
[2019-12-19] MEDS ORDERED: THIAMINE 200 MG/2 ML INJ ONE (09:28)
[2019-12-19] MEDS ORDERED: ENOXAPARIN 40 MG/0.4 ML SQ ONE (09:29)
--- NOTE | 2019-12-19 09:29 | RAD REPORT ---
EXAM DESCRIPTION: RAD - Chest Single View - 12/19/2019 5:30 am CLINICAL HISTORY: Follow up COPD Chest pain. COMPARISON: Chest Single View dated 12/18/2019; Chest Single View dated 11/06/2019; Chest Single View d ated 09/24/2019; Chest Single View dated 09/23/2019 FINDINGS: Portable technique limits examination quality. Tip of the ET tube is above the geovanny. Enteric tube descends into the stomach. Bilateral pulmonary o pacities are present, greater on the right, appears unchanged. Cardiac size is upper limit of normal.
--- NOTE | 2019-12-19 11:59 | P.CNS ---
Date of Consult: 12/19/19 Primary Care Provider: MARTI Becerril; Pulmonary-Dr. Stevens Chief Complaint: Respiratory failure History of Present Illness: Patient is 49 years of age with a history of COPD, morbid obesity CHF was intubated in the field 7 some shortness of breath lethargic difficulty breathing this morning patient became agitated and dynamically stable and was extubated history of COPD with multiple exacerbations Allergies aspirin Allergy (Severe, Verified 10/20/18 15:03) Anaphylaxis guaifenesin [From Mucinex] Allergy (Severe, Verified 10/20/18 15:03) Anaphylaxis hydromorphone HCl [From Dilaudid] Allergy (Severe, Verified 10/20/18 15:03) Anaphylaxis morphine Allergy (Severe, Verified 10/20/18 15:03) Anaphylaxis NSAIDS (Non-Steroidal Anti-Inflamma Allergy (Severe, Verified 10/20/18 15:03) Hives Penicillins Allergy (Severe, Verified 10/20/18 15:03) Anaphylaxis fentanyl Allergy (Verified 11/15/19 01:13) Itching/Hives/Rash Iodinated Contrast Media [Iodinated Contrast Media - IV Dye] Allergy (Verified 10/20/18 15:03) Anaphylaxis ondansetron [From Zofran] Allergy (Verified 10/20/18 15:03) Itching Home Medications: Benztropine Mesylate [Cogentin*] 1 mg PO TID 10/12/18 Diazepam [Valium] 5 mg PO QID 10/12/18 Ergocalciferol (Vitamin D2) [Vitamin D 50,000 Unit Cap] 50,000 unit PO Q7D 10/20/18 Tizanidine HCl 4 mg PO BID 10/20/18 Albuterol Sulfate [Proventil Hfa] 2 puff IH QID 09/23/19 Carbamazepine [Equetro] 200 mg PO TID 09/23/19 Cariprazine HCl [Vraylar] 3 mg PO DAILY 09/23/19 Dextroamphetamine/Amphetamine [Adderall 10 mg Tablet] 10 mg PO BID 09/23/19 Fluticasone/Vilanterol [Breo Ellipta 200-25 Mcg INH] 1 each IH BID 09/23/19 Ipratropium/Albuterol Sulfate [Iprat-Albut 0.5-3(2.5) mg/3 ml] 3 ml IH QIDP PRN 09/23/19 Levalbuterol Tartrate [Levalbuterol Tartrate Hfa] 2 puff IH QIDP PRN 09/23/19 Losartan Potassium 25 mg PO DAILY 09/23/19 Multivit-Minerals/Folic/Ginkgo [One Daily Women's 50+ Tablet] 1 each PO DAILY 09/23/19 Pregabalin [Lyrica] 150 mg PO BID 09/23/19 - Past Medical/Surgical History Diabetic: No -: COPD -: Obstructive sleep apnea -: Tobacco abuse -: Chronic pain -: GERD -: kidney cancer -: Suspect obstructive sleep apnea -: Diaphragmatic hernia -: GERD -: Former smoker -: Left nephrectomy -: Hysterectomy -: right lower leg I and D -: Lap band/and reversal -: -: I&D to the abdomen superficially -: left shoulder sx -: left ankle surgery Psychosocial/ Personal History: , one child, disabled. - Family History Father Medical History: Heart disease, Hypertension, Cancer, Liver disease Notes: liver CA, cirrhosis Mother Medical History: Lung disease Notes: copd , of morbid obesity Brother Medical History: Hypertension Sister Medical History: Lung disease, GI disease, Diabetes - Social History Smoking Status: Current every day smoker Alcohol use: No CD- Drugs: No Caffeine use: Yes Place of Residence: Home Review of Systems is unable to be obtained Physical Examination Temp Pulse Resp BP Pulse Ox 100.2 F 80 20 132/91 H 96 12/19/19 11:00 12/19/19 11:00 12/19/19 11:00 12/19/19 11:00 12/19/19 11:00 General: Alert, Moderate distress Respiratory: Clear to auscultation bilaterally, Diminished Gastrointestinal: Normal bowel sounds, Soft and benign Laboratory Data (last 24 hrs) 12/18/19 14:10: Sodium 143, Potassium 5.2 H, BUN 19 H, Creatinine 0.72, Glucose 121 H, Magnesium 2.0, Total Bilirubin 0.2, AST 30, ALT 26, Alkaline Phosphatase 133 H 12/18/19 13:37: WBC 8.8, Hgb 12.7, Hct 41.4, Plt Count 177 - Problems (1) Respiratory failure Current Visit: Yes Status: Acute Plan: Patient is 49 years of age history of COPD multiple exacerbation admitted with respiratory failure patient was higher for walks a can significantly hypercapnic with a pCO2 156 baseline is around 48 chemistries reviewed no evidence of sepsis vital signs stable off vasopressors chest x-ray shows chronic changes most likely due to underlying COPD I do not see any long-acting bronchodilators normal echocardiogram the lead long-acting bronchodilators at home and may need noninvasive ventilator patient was running a fever possible pneumonia continue with Zosyn cultures are pending I have ordered a thyroid function test change to spironolactone Dc IV Lasix she is hale virus negative continue with steroids Qualifiers: Chronicity: acute on chronic
[2019-12-19 14:26] LABS: Arterial Blood Carboxyhemoglob 1.5 % (0-1.5); Blood Gas Oxyhemoglobin 84.6 % (94-97); Blood O2 Saturation 86.5 % (92-98.5)
[2019-12-19 15:48] VITALS: BMI 57.9
[2019-12-19] MEDS: METHYLPREDNISOLONE 40 MG INJ IV SCH ×2 (16:42→20:21)
[2019-12-19] MEDS ORDERED: METHYLPREDNISOLONE 40 MG INJ ONE ×2 (16:49→20:26)
[2019-12-19] MEDS: HYDROCODONE/APAP 7.5/325 MG TAB PO PRN (17:15)
[2019-12-19] MEDS ORDERED: HYDROCODONE/APAP 7.5/325 MG TAB ONE (17:25)
[2019-12-19] MEDS ORDERED: ACETAMINOPHEN 500 MG TAB ONE (20:26)
[2019-12-20] MEDS: HYDROCODONE/APAP 7.5/325 MG TAB PO PRN ×2 (00:02→08:52)
[2019-12-20] MEDS: PIPER/TAZO/NS 3.375gm 3.375 GM/100 ML BAG IVPB SCH ×2 (00:02→08:39)
[2019-12-20 04:39] LABS: Absolute Lymphocytes (CBC) 0.8 K/uL (0.7-4.9); Basophils % 0.1 % (0-1.3); Hematocrit 36.8 % (36.0-45.0); Lymphocytes % 11.2 % (15.3-44.8); MPV 9.2 fL (7.6-11.3); RBC Red Blood Cell Count 4.14 M/uL (3.86-4.86)
[2019-12-20 04:49] LABS: Magnesium 2.1 mg/dL (1.8-2.4); Potassium 3.6 mmol/L (3.5-5.1)
[2019-12-20] MEDS: ALBUTEROL 2.5 MG/3 ML NEB SOL NEB PRN (06:35)
[2019-12-20] MEDS: IPRATROPIUM BROM 0.5MG/2.5ML NEB PRN (06:35)
[2019-12-20] MEDS ORDERED: IPRATROPIUM BROM 0.5MG/2.5ML ONE ×2 (06:47→13:13)
[2019-12-20] MEDS ORDERED: ALBUTEROL 2.5 MG/3 ML NEB SOL ONE ×2 (06:47→13:13)
[2019-12-20] MEDS ORDERED: KCL 20 MEQ/100 mL IVPB 20 MEQ/100 ML BAG IV SCH (07:00)
--- NOTE | 2019-12-20 07:43 | EKG ---
Test Date: 2019-12-18 Test Time: 14:29:43 Respiratory Care Assistant: CANDICE MEASUREMENT RESULTS: Intervals: Rate: 58 WV: 154 QRSD: 86 QT: 486 QTc: 477 [place]: P: 54 WV: 154 QRS: 41 T: 37 INTERPRETIVE STATEMENTS: Sinus bradycardia Nonspecific ST and T wave abnormality Prolonged QT Abnormal ECG Compared to ECG 11/14/2019 21:52:48 ST (T wave) deviation now present Prolonged QT interval now present Sinus rhythm no longer present Right-axis deviation no longer present T-wave abnormality no longer present Possible ischemia no longer present Electronically Signed On 12-20-19 07:40:09 CDT by Mahendra Howard
[2019-12-20] MEDS: ENOXAPARIN 40 MG/0.4 ML SQ SCH (08:38)
[2019-12-20] MEDS: FOLIC ACID 1 MG in NA CHLORIDE 0.9% 50 ML IV SCH (08:38)
[2019-12-20] MEDS: FUROSEMIDE 40 MG/4 ML VIAL IV SCH (08:39)
[2019-12-20] MEDS: PANTOPRAZOLE 40 MG INJ IVP SCH (08:39)
[2019-12-20] MEDS: METHYLPREDNISOLONE 40 MG INJ IV SCH (08:39)
[2019-12-20] MEDS: THIAMINE 200 MG/2 ML INJ IVP SCH (08:42)
[2019-12-20] MEDS ORDERED: METHYLPREDNISOLONE 40 MG INJ ONE (08:46)
[2019-12-20] MEDS ORDERED: PANTOPRAZOLE 40 MG INJ ONE (08:47)
[2019-12-20] MEDS ORDERED: ENOXAPARIN 40 MG/0.4 ML SQ ONE (08:47)
[2019-12-20] MEDS ORDERED: KCL 20 MEQ/100 mL IVPB 20 MEQ/100 ML BAG IV ONE (08:47)
[2019-12-20] MEDS ORDERED: FUROSEMIDE 40 MG/4 ML VIAL ONE (08:47)
[2019-12-20] MEDS ORDERED: PIPER/TAZO/NS 3.375gm 3.375 GM/100 ML BAG ONE (08:47)
[2019-12-20] MEDS ORDERED: THIAMINE 200 MG/2 ML INJ ONE (08:52)
[2019-12-20] MEDS ORDERED: NA CHLORIDE 0.9% 100 ML IV ONE (09:02)
[2019-12-20] MEDS ORDERED: HYDROCODONE/APAP 7.5/325 MG TAB ONE (09:02)
[2019-12-20] MEDS: ARFORMOTEROL TARTRATE 15 MCG/2 ML VIAL.NEB NEB SCH ×2 (09:40→20:50)
--- NOTE | 2019-12-20 11:42 | P.PN ---
Subjective Date of Service: 12/20/19 Primary Care Provider: MARTI Becerril; Pulmonary-Dr. Stevens Chief Complaint: Respiratory failure Subjective: Improving (Patient is doing much better does not recall the event precipitating her admissions continue to smoke very heavily wants to go) Review of Systems General: Weakness Respiratory: Cough, Shortness of Breath Physical Examination - Vital Signs Temperature: 98.8 F Blood Pressure: 136/91 Pulse: 74 Respirations: 26 Pulse Ox (%): 90 - Physical Exam General: Alert, In no apparent distress, Oriented x3 Respiratory: Expiratory wheezes Cardiovascular: No edema, Regular rate/rhythm - Studies Microbiology Data (last 24 hrs): 12/18/19 12:26 Blood - Blood Anaerobic Blood Culture - Final Medications List Reviewed: Yes Assessment & Plan - Problems (Diagnosis) (1) COPD exacerbation Onset Date: 09/25/15 Current Visit: No Status: Acute Plan: Patient is 49 years of age admitted with respiratory failure secondary to COPD exacerbation is doing well has home oxygen titrate sat to 90% patient will need a long-acting bronchodilator at home I have ordered trilogy continue with low- dose prednisone 10 mg twice a day console to quit smoking there is no evidence of active ongoing sepsis she has 3 3+ gram-negative rods in the sputum presumed Pseudomonas changed to 750 mg of daily prednisone she needs be discharged home on for 7 days continue with home O2 if follow-up with a telephone visit in a week patient denies alcohol abuse
[2019-12-20] MEDS ORDERED: Levofloxacin500mg IV 0 MG/0 ML BAG IV ONE (12:35)
[2019-12-20] MEDS: HYDROCODONE/APAP 10/325 TAB PO PRN ×2 (12:39→17:29)
[2019-12-20] MEDS: levoFLOXacin 750 MG TAB PO SCH (12:42)
[2019-12-20] MEDS ORDERED: HYDROCODONE/APAP 10/325 TAB ONE ×2 (12:46→14:55)
[2019-12-20] MEDS ORDERED: Levofloxacin 750mg IV 750 MG/150 ML BAG IV ONE (12:46)
[2019-12-20] MEDS ORDERED: levoFLOXacin 750 MG TAB ONE (12:52)
[2019-12-20] MEDS: ALBUTEROL 2.5 MG/3 ML NEB SOL NEB SCH ×2 (13:15→20:50)
--- NOTE | 2019-12-20 14:11 | P.PN ---
Subjective Date of Service: 12/20/19 Primary Care Provider: MARTI Becerril; Pulmonary-Dr. Stevens Chief Complaint: Respiratory failure Patient doing better now. She is tolerating oxygen by nasal cannula with SaO2 around 90%. She requested to go home. Physical Examination - Vital Signs Temperature: 97.8 F Blood Pressure: 120/80 Pulse: 78 Respirations: 22 Pulse Ox (%): 90 - Physical Exam General: Obese (Morbid obesity) HEENT: Mucous membr. moist/pink Neck: Supple, JVD not distended Respiratory: Diminished (Bilateral.), Other (No rhonchi or rales.) Cardiovascular: Regular rate/rhythm, Normal S1 S2, Edema (Bilateral lower extremities) Gastrointestinal: Normal bowel sounds, Soft and benign, No tenderness Musculoskeletal: No tenderness Neurological: Normal strength at 5/5 x4 extr - Studies Microbiology Data (last 24 hrs): 12/18/19 12:26 Blood - Blood Anaerobic Blood Culture - Final Medications List Reviewed: Yes Assessment And Plan - Current Problems (Diagnosis) (1) Acute respiratory failure with hypoxia and hypercapnia Current Visit: Yes Status: Acute (2) COPD with acute exacerbation Onset Date: 04/07/16 Current Visit: No Status: Acute (3) Bipolar 1 disorder Onset Date: 10/23/16 Current Visit: No Status: Chronic (4) Morbid obesity Onset Date: 10/23/16 Current Visit: No Status: Chronic (5) Obstructive sleep apnea Onset Date: 10/23/16 Current Visit: No Status: Suspected (6) Pneumonia Current Visit: Yes Status: Acute - Plan Dyspnea secondary to acute on chronic respiratory failure with hypercapnia and hypoxia suspect COPD exacerbation with possible aspiration pneumonia and acute on chronic diastolic CHF complicated with hypoventilation obesity syndrome Hypertension Obesity, BMI-greater than 50 History Left ankle fracture History of tobacco abuse Chronic pain Depression with anxiety Clinically improving. Status post intubation. She is tolerating oxygen by nasal cannula. Pulmonology is following and managing. IV steroid transitioned to oral prednisone today. GNR is sputum. Could be Pseudomonas. IV Zosyn transitioned to oral levaquin. Intermittent BiPAP as needed. Patient with severe obesity hypoventilation syndrome, COPD with CO2 retention. She may qualify for trilogy at home. Dr. Stevens is assessing for need for trilogy. Monitor for progressive improvement for 1 more day. Physician Review Additional Text: Impression: Dyspnea secondary to acute on chronic respiratory failure with hypercapnia and hypoxia suspect COPD exacerbation with possible aspiration pneumonia and acute on chronic diastolic CHF complicated with hypoventilation obesity syndrome Hypertension Obesity, BMI-greater than 50 History Left ankle fracture History of tobacco abuse Chronic pain Depression with anxiety Plan: Dyspnea secondary to acute on chronic respiratory failure with hypercapnia and hypoxia suspect COPD exacerbation with possible aspiration pneumonia and acute on chronic diastolic CHF complicated with hypoventilation obesity syndrome: Patient had fever last night. Initial lactic acid and pro calcitonin negative. Will start IV Zosyn. Will recheck chest x-ray today. Patient remains on the ventilator. Await further recommendations from pulmonology. Possible extubation today. Continue IV steroids. Continue IV Lasix. Spoke with son about patient's COPD treatment at home. Patient uses home oxygen and ne bulizers. She may be increasing her oxygen home which may have led to her hypercapnia. Patient will likely need education on this. Will discuss further with pulmonology. Anticipate improvement over the next 48-72 hr. Son also reports that she had a left ankle fracture in the past with surgery. Son will bring boot for the left foot. She is not to put any pressure on this. Will need physical therapy. Patient will likely go home with home health and physical therapy at discharge. I will turn the service over to the hospitalist team tomorrow. I will go plan of care with him. Hypertension: Will provide medication. Obtain home medication to review. History left ankle fracture: Patient being followed by orthopedics as an outpatient. Son will bring boot for the left foot. No weight-bearing on foot. Patient will need physical therapy. Obesity, BMI greater than 40: Will address lifestyle modification education. History of tobacco abuse: Need to determine if patient still smoking at home. Chronic pain: Hold all muscle relaxers and pain medication at this time. Will need to verify home medication. May need to adjust medication Depression with anxiety: Will continue oral medication once able to take oral. May need to adjust medication
[2019-12-20] MEDS ORDERED: MEPERIDINE HCL 25 MG/ML SYR IV ONE (19:43)
[2019-12-20] MEDS: predniSONE 20 MG TAB PO SCH (20:35)
[2019-12-20] MEDS: SODIUM CHLORIDE 0.9% 10ML INJ IV PRN (20:36)
[2019-12-20] MEDS ORDERED: MEPERIDINE HCL 50 MG/ML IV ONE (22:39)
[2019-12-21] MEDS: HYDROCODONE/APAP 10/325 TAB PO PRN ×3 (01:41→10:00)
[2019-12-21] MEDS: ALBUTEROL 2.5 MG/3 ML NEB SOL NEB SCH ×2 (02:10→08:08)
[2019-12-21] MEDS: IPRATROPIUM BROM 0.5MG/2.5ML NEB PRN ×2 (02:10→08:08)
[2019-12-21 05:40] LABS: Magnesium 2.1 mg/dL (1.8-2.4); Potassium 3.8 mmol/L (3.5-5.1)
[2019-12-21 05:43] LABS: Absolute Lymphocytes (CBC) 1.2 K/uL (0.7-4.9); Basophils % 1.1 % (0-1.3); Hematocrit 38.1 % (36.0-45.0); Lymphocytes % 18.5 % (15.3-44.8); RBC Red Blood Cell Count 4.29 M/uL (3.86-4.86)
[2019-12-21 08:02] VITALS: BP 143/65; TEMP 96.5
[2019-12-21] MEDS: ARFORMOTEROL TARTRATE 15 MCG/2 ML VIAL.NEB NEB SCH (08:08)
[2019-12-21] MEDS ORDERED: POTASSIUM CL SA 10 MEQ TAB PO ONE (09:00)
[2019-12-21] MEDS: ENOXAPARIN 40 MG/0.4 ML SQ SCH (09:00)
[2019-12-21] MEDS: FOLIC ACID 1 MG in NA CHLORIDE 0.9% 50 ML IV SCH (09:00)
[2019-12-21] MEDS: levoFLOXacin 750 MG TAB PO SCH (09:25)
[2019-12-21] MEDS: predniSONE 20 MG TAB PO SCH (09:25)
[2019-12-21] MEDS ORDERED: FENTANYL CITR 100 MCG/2 ML IV ONE (10:53)
--- NOTE | 2019-12-21 10:57 | P.DS ---
Admission Date: 12/18/19 Discharge Date: 12/21/19 Primary Care Provider: MARTI Becerril; Pulmonary-Dr. Stevens Disposition: ROUTINE DISCHARGE Reason for Admission: Respiratory failure - Problems (1) Acute respiratory failure with hypoxia and hypercapnia Current Visit: Yes Status: Acute (2) COPD with acute exacerbation Onset Date: 04/07/16 Current Visit: No Status: Acute (3) Bipolar 1 disorder Onset Date: 10/23/16 Current Visit: No Status: Chronic (4) Morbid obesity Onset Date: 10/23/16 Current Visit: No Status: Chronic (5) Obstructive sleep apnea Onset Date: 10/23/16 Current Visit: No Status: Suspected (6) Pneumonia Current Visit: Yes Status: Acute Brief History of Present Illness: 49-year-old morbidly obese woman with a history of COPD, obesity hypoventilation syndrome, chronic pain syndrome was brought to the emergency department obtunded and intubated. Family reported altered mental status. Her chest x-ray on arrival showed pulmonary edema. Arterial blood gas showed severe CO2 retention. The patient was admitted for hypercapnic respiratory failure. Hospital Course: Patient admitted to the ICU on mechanical ventilator. She was seen in consultation by pulmonology-Dr. Stevens. She was treated for COPD exacerbation with IV steroid, antibiotics and scheduled bronchodilators. She was subsequently extubated within 24 hrs. Patient tolerated noninvasive ventilation after extubation and then transition to oxygen by nasal cannula. She is currently tolerating 2 L of oxygen by nasal cannula with good oxygen saturation. Serial arterial blood gas showed progressive improvement in PCO2. Patient is currently stable clinically. She denies shortness of breath. She has been complaining of chronic back pain. I suspect a combination of polypharmacy, COPD exacerbation and obesity hypoventilation led to the hypercapnic respiratory failure with obtundation. Dr. Stevens this evaluating for need for BiPAP at home. Vital Signs/Physical Exam: Temp Pulse Resp BP Pulse Ox 96.5 F L 62 19 143/65 H 95 12/21/19 08:00 12/21/19 08:00 12/21/19 08:00 12/21/19 08:00 12/21/19 08:00 General: Alert, In no apparent distress, Oriented x3, Obese HEENT: Mucous membr. moist/pink Neck: Supple, JVD not distended Respiratory: Clear to auscultation bilaterally, Diminished Cardiovascular: No edema, Regular rate/rhythm, Normal S1 S2 Capillary refill: <2 Seconds Gastrointestinal: Normal bowel sounds, Soft and benign, No tenderness Neurological: Other (Nonfocal) Laboratory Data at Discharge: WBC 6.7 K/uL (4.3-10.9) 12/21/19 05:00 Hgb 12.4 g/dL (12.0-15.0) 12/21/19 05:00 Hct 38.1 % (36.0-45.0) 12/21/19 05:00 Plt Count 189 K/uL (152-406) 12/21/19 05:00 Sodium 140 mmol/L (136-145) 12/21/19 05:00 Potassium 3.8 mmol/L (3.5-5.1) 12/21/19 05:00 BUN 24 mg/dL (7-18) H 12/21/19 05:00 Creatinine 0.81 mg/dL (0.55-1.3) 12/21/19 05:00 Glucose 123 mg/dL (74-106) H 12/21/19 05:00 Magnesium 2.1 mg/dL (1.8-2.4) 12/21/19 05:00 Total Bilirubin 0.2 mg/dL (0.2-1.0) 12/18/19 14:10 AST 30 U/L (15-37) 12/18/19 14:10 ALT 26 U/L (12-78) 12/18/19 14:10 Alkaline Phosphatase 133 U/L (45-117) H 12/18/19 14:10 Troponin I < 0.02 ng/mL (0.0-0.045) 12/19/19 05:40 Troponin I Cancelled 12/19/19 05:40 Home Medications: Benztropine Mesylate [Cogentin*] 1 mg PO TID 10/12/18 Ergocalciferol (Vitamin D2) [Vitamin D 50,000 Unit Cap] 50,000 unit PO Q7D 10/20/18 Tizanidine HCl 4 mg PO BID 10/20/18 Albuterol Sulfate [Proventil Hfa] 2 puff IH QID 09/23/19 Carbamazepine [Equetro] 200 mg PO TID 09/23/19 Cariprazine HCl [Vraylar] 3 mg PO DAILY 09/23/19 Dextroamphetamine/Amphetamine [Adderall 10 mg Tablet] 10 mg PO BID 09/23/19 Ipratropium/Albuterol Sulfate [Iprat-Albut 0.5-3(2.5) mg/3 ml] 3 ml IH QIDP PRN 09/23/19 Levalbuterol Tartrate [Levalbuterol Tartrate Hfa] 2 puff IH QIDP PRN 09/23/19 Losartan Potassium 25 mg PO DAILY 09/23/19 Multivit-Minerals/Folic/Ginkgo [One Daily Women's 50+ Tablet] 1 each PO DAILY 09/23/19 Pregabalin [Lyrica] 150 mg PO BID 09/23/19 Fluticasone/Umeclidin/Vilanter [Trelegy Ellipta 100-62.5-25] 1 each IH DAILY 30 Days #30 blst.w.dev 12/20/19 levoFLOXacin [Levaquin*] 750 mg PO DAILY #7 tab 12/21/19 predniSONE [Prednisone*] 20 mg PO BID #8 tab 12/21/19 New Medications: levoFLOXacin [Levaquin*] 750 mg PO DAILY #7 tab predniSONE [Prednisone*] 20 mg PO BID #8 tab Fluticasone/Umeclidin/Vilanter [Trelegy Ellipta 100-62.5-25] 1 each IH DAILY 30 Days #30 blst.w.dev Diet: [facility] Followup: Henry Stevens MD [ACTIVE - CAN ADMIT] - 1-2 Weeks Time spent managing pt's care (in minutes): 40
[2019-12-21 11:12] VITALS: O2SAT 92
== END 2019-12-21 11:36 | disposition home health service (06) | DRG 208 ==
LOC: ER 12:00 → ERHOLD 14:58 → 2ND 12-20 19:00
PROVIDERS: ADMIT Family Medicine; ATTEND Internal Medicine
PROC: 5A1935Z Respiratory Ventilation, Less than 24 Consecutive Hours (ICD-10-PCS; principal; 2019-12-18)
DX: J96.02 Acute respiratory failure with hypercapnia (principal); J15.6 Pneumonia due to other Gram-negative bacteria; J44.1 Chronic obstructive pulmonary disease with (acute) exacerbation; E66.2 Morbid (severe) obesity with alveolar hypoventilation; Z68.43 Body mass index [BMI] 50.0-59.9, adult; I50.32 Chronic diastolic (congestive) heart failure; J96.01 Acute respiratory failure with hypoxia; I11.0 Hypertensive heart disease with heart failure; F17.210 Nicotine dependence, cigarettes, uncomplicated; F32.9 Major depressive disorder, single episode, unspecified; F41.8 Other specified anxiety disorders; Z99.81 Dependence on supplemental oxygen; Z11.59 Encounter for screening for other viral diseases
CPT/HCPCS: 36415; 51702; 71045; 80048; 80076; 80307; 82550; 82553; 82805; 83605; 83735; 83880; 84145; 84443; 84484; 85025; 87040; 87070; 87077; 87186; 87205; 93005; 94002; 94003; 99291; 99292; C9113; J1650; J1940; J2175; J2250; J2543; J2704; J2920; J2930; J3411; J3480; J7512; J7605; U0003

== ENCOUNTER 2020-01-28 19:35 | Emergency (ER) | payer OTHER ==
--- OUTSIDE RECORDS SUMMARY | 2020-01-28 19:39 | XMS REPORT | Continuity of Care Document ---
:1970 Author Organization [facility] t Address [address] [place] [address] Care Team Providers Name Role Phone Unavailable Unavailable Unavailable Payers Payer Name Policy Type Policy Number Effective Date Expiration Date S ource Problems This patient has no known problems. Allergies, Adverse Reactions, Alerts Allergy Allergy Status Severity Reaction(s) Onset Inactive Treating Comm ents Source Name Type Date Date Clinician fentanyl DA Active NM [facility] 5-27 Clear 00:00: Champagne 00 [facility] Iodinate DA Active SV 2018-05 [facility] d 05-03 Clear Contrast 00:00: Champagne Media [facility] NSAIDS DA Active SV 2018-05 [facility] (Non-Remigio 05-03 Clear roidal 00:00: Champagne Anti-Inf 00 [facility] Penicill DA Active SV 2018-05 [facility] ins 05-03 Clear 00:00: Champagne [facility] morphine DA Active SV 2018-05 [facility] 05-03 Clear 00:00: Champagne 00 [facility] aspirin DA Active U 2018-05 [facility] 05-03 Clear 00:00: Champagne 00 [facility] hydromor DA Active SV 2018-05 [facility] phone 05-03 Clear 00:00: Champagne 00 [facility] shellfis FA Active SV 2018-05 [facility] h 05-03 Clear derived 00:00: Champagne 00 [facility] No Known DA Active U [facility] Contrast [...] code = COVNONPUI) Negative Negative COMPREHENSIVE METABOLIC [id number] 09:36:00 Test Item Value Reference Range Interpretation [...] TOTAL (test code = ALKP) HCG SERUM [id number] 09:36:00 Test Item Value Reference Range Interpretation Comments HCG SERUM QUAL (test code = SERUM NEGATIVE NEGATIVE HCGQL) - XR CHEST 2 [id number] 09:35:00 FAX: Jigar Velasco DPAdryan [phone] [place]: St: PRE FAX: Adele Hernández MD [phone] Name: MARCELLE WEISS [facility] : 1970 Age/S: 49/F [address] [place] [address] Unit #: [id number] Loc: [place] [address] Phys: Jigar Jurado DPM Acct: [id number] Dis Date: Status: PRE SDC PHONE #: [phone] Exam Date: 09/27/2019930 FAX #: [phone] Reason: PREOP- PAIN D/T ORTHOPEDIC IMPLANT EXAMS: CPT CODE: [id number] XR CHEST 2 V 03671 Two-view chest: HISTORY: Preoperative clearance for painful orthopedic implant. FINDINGS: Stable mild cardiomegaly compared with 05/07/2019. Development of areas of bibasilar subsegmental atelectasis. No pleural effusion or bony pathology IMPRESSION: Bibasilar s ubsegmental atelectasis SL: [id number] at 0935 Reported and signed by: Sammy Branham M.D. CC: Jigar Jurado DPM; Adele York MD Technologist: Diamond Castro, RT(R) Trnscrd Date/Time/By: 09/27/2019 (0935) : By: SomETG Orig Print D/T: S: 09/27/2019 (2406) PAGE 1 Signed ReportCOMPREHENSIVE METABOLIC [id number] 09:28:00 Test Item Value Reference Range Interpretation [...] IUnit/L 20-125 code = ALKP) HCG SERUM [id number] 09:28:00 Test Item Value Reference Range Interpretation Comments HCG SERUM QUAL (test code = SERUM NEGATIVE NEGATIVE HCGQL) CBC W/AUTO [id number] 09:21:00 Test Item Value Reference Range Interpretation [...] (test NO code = MDIFF) BASIC METABOLIC [id number] 09:50:00 Test Item Value Reference Range Interpretation [...] = CA) 9.5 MG/DL 8.5-10.1 N VANCOMYCIN [id number] 21:06:00 Test Item Value Reference Range Interpretation Comments VANCOMYCIN TROUGH (test code = 19.1 mcG/ML 10-20 N VANCT) GLUCOSE BEDSIDE [id number] 20:17:00 Test Item Value Reference Range Interpretation Comments GLUCOSE BEDSIDE TESTING (test code = 84 mg/dL 70-110 N GLUBED) - NM BONE 3 [id number] 19:51:00 FAX: Dwight Parrish MD [place]: PM St: ADM FAX: Bettye Alves MD [phone] Name: MARCELLE WEISS [facility] ED : 1970 Age/S: 49/F [address] [facility] Unit #: [id number] Loc: [address] [place] [address] Phys: Bettye Mullins MD Acct: [id number] Dis Date: Status: ADM IN PHONE #: [phone] Exam Date: 05/09/2019 8294 FAX #: Reason: OM ANDHARDWARE INFECTION LEFT ANKLE EXAMS: CPT: [id number] NM BONE 3 PHASE 61595 EXAM: - NM BONE 3 PHASE HISTORY: [...] <2 ng/mL are obtai emily. BASIC METABOLIC [id number] 14:15:00 Test Item Value Reference Range Interpretation [...] if any concentrations <2 ng/mL are obtai emiyl. CBC W/AUTO [id number] 07:54:00 Test Item Value Reference Range Interpretation [...] code = NO DIFF/SCN CRITERIA MDIFF) SED [id number] 07:54:00 Test Item Value Reference Range Interpretation Comments SED RATE (test code = SEDW) 19 mm/hr 0-20 N BASIC METABOLIC [id number] 06:17:00 Test Item Value Reference Range Interpretation [...] (test code = ng/ml PROCAL) CBC W/AUTO [id number] 06:08:00 Test Item Value Reference Range Interpretation [...] code = NO DIFF/SCN CRITERIA MDIFF) SED [id number] 06:08:00 Test Item Value Reference Range Interpretation Comments SED RATE (test code = SEDW) mm/hr 0-20 [id number] 02:57:00 Test Item Value Reference Range Interpretation [...] may basilio yby method. Completed by Nursing: [id number] 23:57:00 Test Item Value Reference Range Interpretation [...] by Nursing: BIRGITUA RFLX MICR CULT IF [id number] 18:41:00 Test Item Value Reference Range Interpretation [...] for culture: Dysuria/FrequencyUA RFLX MICR CULT IF [id number] 18:41:00 Test Item Value Reference Range Interpretation [...] CLEAN CATCHIndication for culture: Dysuria/Frequency COMPREHENSIVE METABOLIC [id number] 18:23:00 Test Item Value Reference Range Interpretation [...] TOTAL (test code = ALKP) CBC W/AUTO [id number] 18:03:00 Test Item Value Reference Range Interpretation [...] = NO DIFF/SCN CRITERIA MDIFF) LACTIC ACID [id number] 17:58:00 Test Item Value Reference Range Interpretation Comments LACTIC ACID POC (test code = 1.93 MMOL/L 0.90-1.70 H LACTP) - XR ANKLE 3+V [id number] 17:50:00 Name: ABHISHEK,MARCELLE Cornelius [facility] ED : 1970 Age/S: 49 / F [address] [address] Unit #: [id number] Loc: [place] [address] Phys: Aletha Valerio MD Acct: [id number] Dis Date: Status: REG ER PHONE #: [phone] Exam Date: 05/07/2019 174 FAX #: Reason: ankle EXAMS: CPT: [id number] XR ANKLE 3+[place] [address] Fluoro Time: DAP (Gy m2): Air Kerma [...] HARGROVE PAGE 1 Signed Report [facility] 1970 Age/S: 49 / F [address] Unit #: [id number] Loc: [place] [address] Phys: Aletha Valerio MD Acct: [id number] Dis Date: Status: REG ER PHONE #: [phone] Exam Date: 05/07/2019 1740 FAX #: Reason:ankle EXAMS: CPT: [id number] XR ANKLE 3+V [place] [address] Fluoro Time: DAP (Gy m2): Air Kerma (mGy): <Continued> Technologist: RT Charles(R)(MR) Trnscb Date/Time: 05/07/2019 (175) 16 Orig Print D/T: S: 05/07/2019 (1286) PAGE 2 Signed Report- XR CHEST 1 [id number] 17:40:00 Name: MARCELLE WEISS [facility] ED : 1970 Age/S: 49 / F [address] Unit #: [id number] Loc: [place] [address] Phys: Aletha Valerio MD Acct: [id number] Dis Date: Status: REG ER PHONE #: [phone] Exam Date: 05/07/20191709 FAX #: Reason: infection EXAMS: CPT: [id number] XR CHEST 1 V 80900 Fluoro Time: DAP (Gy m2): Air Kerma [...] PAGE 1 Signed Report Name: MARCELLE WEISS [facility] ED : 1970 Age/S: 49 / F [address] [address] Unit #: [id number] Loc: [place] [address] Phys:Aletha Valerio MD Acct: [id number] Dis Date: Status: REG ER PHONE #: [phone] Exam Date: 05/07/2019 1710 FAX #: Reason: infection EXAMS: CPT: [id number] XR CHEST1 V 54759 Fluoro Time: DAP (Gy m2): Air Kerma (mGy): <Continued> Technologist: RT Charles(R)(MR) Trnscb Date/Time: 05/07/2019 (1739) 16 Orig Print D/T: S: 05/07/2019 (802) PAGE 2 Signed ReportPROCALCITONIN (PCT)2019-04-27 03:09:00 Test [...] concentrations <2 ng/mL are obtai emily. SED [id number] 13:10:00 Test Item Value Reference Range Interpretation Comments SED RATE (test code = SEDW) 30 mm/hr 0-20 H [id number] 02:18:00 Test Item Value Reference Range Interpretation [...] may basilio yby method. Completed by Nursing: [id number] 23:37:00 Test Item Value Reference Range Interpretation [...] yby method. Completed by Nursing: NOCHEMISTRY 8 [id number] 22:03:00 Test Item Value Reference Range Interpretation [...] 58-135 N code = GFRBED) CHEMISTRY 8 [id number] 22:03:00 Test Item Value Reference Range Interpretation [...] code = GFRBED) - CT CHEST W/O [id number] 21:11:00 Name: MARCELLE WEISS Adryan [facility] ED : 1970 Age/S: 49 / F [address] [address] Unit #: [id number] Loc: [place] [address] Phys: Uday Maya MD Acct: [id number] Dis Date: Status: ADM IN PHONE #: [phone] Exam Date: 04/25/20192042 FAX #: Reason: lung mass EXAMS: CPT: [id number] CT CHEST W/O CONTRAST 47972 Exam: CT thorax without contrast. Location: H [...] 1 Signed Report (CONTINUED) Name: MARCELLE WEISS [facility] ED : 1970 Age/S: 49 / F [address] [address] Unit #: [id number] Loc: [place] [address] Phys: Uday Maya MD Acct: [id number] Dis Date: Status: ADM IN PHONE #: [phone] Exam Date: 04/25/20192042 FAX #: Reason: lung mass EXAMS: CPT: [id number] CT CHEST W/O CONTRAST [address] <Continued> CC: Uday Maya MD; Aletha Valerio [...] TOTAL (test code = ALKP) CBC W/AUTO [id number] 20:01:00 Test Item Value Reference Range Interpretation [...] = NO DIFF/SCN CRITERIA MDIFF) TROPONIN I [id number] 19:58:00 Test Item Value Reference Range Interpretation Comments TROPONIN I RAPID 0.00 ng/mL 0.00-0.08 N - The use o f serial (test code = sampling and te sting TROPIRAP) protocol is a recommended pra ctice- An elevated tro ponin level alone is often not sufficient for diagnosis of my ocardial infarction. LACTIC ACID [id number] 19:58:00 Test Item Value Reference Range Interpretation Comments LACTIC ACID POC (test code = 1.43 MMOL/L 0.90-1.70 N LACTP) - XR CHEST 1 [id number] 19:42:00 Name: ABHISHEKMARCELLE [facility] : 1970 Age/S: 49 / F [address] [address] Unit #: [id number] Loc: [place] [address] Phys: Aletha Valerio MD Acct: [id number] Dis Date: Status: REG ER PHONE #: [phone] Exam Date: 04/25/20191919 FAX #: Reason: Suspected Sepsis EXAMS: CPT: [id number] XR CHEST 1 V 85169 Fluoro Time: DAP (Gy m2): Air Kerma [...] PAGE 1 Signed Report Name: MARCELLE WEISS [facility] ED : 1970 Age/S: 49 / F [address] [address] Unit #: [id number] Loc: [place] [address] Phys: Aletha Valerio MD Acct: [id number] Dis Date: Status: REG ER PHONE #: [phone] Exam Date: 04/25/20191919 FAX #: Reason: Suspected Sepsis E XAMS: CPT: [id number] XR CHEST 1 V 81704 Fluoro Time: DAP (Gy m2): Air Kerma (mGy): <Continued> Technologist: David Cole RT(R)(CT) TrnscbDate/Time: 04/25/2019 (1941) SomGS29 Orig Print D/T: S: 04/25/2019 (1945) PAGE 2 Signed ReportBASIC METABOLIC [id number] 06:51:00 Test Item Value Reference Range Interpretation [...] CA) 8.8 MG/DL 8.5-10.1 N CBC W/AUTO [id number] 06:27:00 Test Item Value Reference Range Interpretation [...] = NO DIFF/SCN CRITERIA MDIFF) BASIC METABOLIC [id number] 18:56:00 Test Item Value Reference Range Interpretation [...] CA) 9.0 MG/DL 8.5-10.1 N BASIC METABOLIC [id number] 18:53:00 Test Item Value Reference Range Interpretation [...] CA) 9.0 MG/DL 8.5-10.1 N CBC W/AUTO [id number] 18:52:00 Test Item Value Reference Range Interpretation [...] = NO DIFF/SCN CRITERIA MDIFF) CBC W/AUTO [id number] 07:16:00 Test Item Value Reference Range Interpretation [...] = NO DIFF/SCN CRITERIA MDIFF) BASIC METABOLIC [id number] 07:11:00 Test Item Value Reference Range Interpretation [...] CA) 8.7 MG/DL 8.5-10.1 N BASIC METABOLIC [id number] 11:01:00 Test Item Value Reference Range Interpretation [...] CA) 8.6 MG/DL 8.5-10.1 N CBC W/AUTO [id number] 10:24:00 Test Item Value Reference Range Interpretation [...] = NO DIFF/SCN CRITERIA MDIFF) BASIC METABOLIC [id number] 05:56:00 Test Item Value Reference Range Interpretation [...] CA) 8.8 MG/DL 8.5-10.1 N CBC W/AUTO [id number] 05:51:00 Test Item Value Reference Range Interpretation [...] = NO DIFF/SCN CRITERIA MDIFF) CBC W/AUTO [id number] 06:08:00 Test Item Value Reference Range Interpretation [...] = NO DIFF/SCN CRITERIA MDIFF) BASIC METABOLIC [id number] 05:55:00 Test Item Value Reference Range Interpretation [...] = CA) 9.0 MG/DL 8.5-10.1 N VANCOMYCIN [id number] 14:35:00 Test Item Value Reference Range Interpretation Comments VANCOMYCIN TROUGH (test code = 17.4 mcG/ML 10-20 N VANCT) BASIC METABOLIC [id number] 06:49:00 Test Item Value Reference Range Interpretation [...] CA) 8.5 MG/DL 8.5-10.1 N CBC W/AUTO [id number] 06:44:00 Test Item Value Reference Range Interpretation [...] NO DIFF/SCN CRITERIA MDIFF) - US GUIDANCE [facility] [id number] 13:25:00 Name: MARCELLE WEISS [facility] ED : 1970 Age/S: 49 / F [address] [address] Unit #: [id number] Loc: [place] [address] Phys: Theodore Gonzalez MD Acct: [id number] Dis Date: Status: ADM IN PHONE #: [phone] Exam Date: 03/29/2019 1550 FAX #: Reason: PICC LINE PLACEMENT EXAMS: CPT: [id number] US GUIDANCE VASC ACCESS 66251 Examination: PICC line insertion Location code: S17 Comparison: None 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 at 1325 Reported and signed by: Camacho Barboza M.D. CC: Theodore Gonzalez MD; Adele York MD Technologist: Esthela Krishnamurthy, RT(R),RDMS(AB) Trnscb Date/Time: 03/29/2019 (1325) SomJH12 PAGE 2 Signed Report Name: MARCELLE WEISS [place] : 1970 Age/S: 49 / F [address] [address] Unit #: [id number] Loc: [place] [address] Phys: Theodore Gonzalez MD Acct: [id number] Dis Date: Status: ADM IN PHONE #: [phone] Exam Date: 03/29/2019 1550 FAX #: Reason: PICC LINE PLACEMENT EXAMS: CPT: [id number] US GUIDANCE VASC ACCESS 95607 <Continued> Orig Print D/T: S: 03/29/2019 (2052) Probe: PAGE 3 Signed Report- FLUORO GUID CTRL ACC [id number] 13:25:00 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 at 1325 Reported and signed by: Camacho Barboza M.D. CC: Theodore Gonzalez MD; Bettye Mullins MD; Adele York MD PAGE 2 Signed Report Name:MARCELLE WEISS [facility] ED : 1970 Age/S: 49 / F [address] [address] Unit #: [id number] Loc: [place] [address] Phys: Bettye Mullins MD Acct: [id number] Dis Date: Status: ADM IN PHONE #: [phone] Exam Date: 03/29/2019 1301 FAX #: Reason: prolonged antibx EXAMS: CPT: [id number] FLUORO GUID CTRL ACC DEV 25283 Fluoro Time: DAP(Gy m2): Air Kerma (mGy): <Continued> Technologist: Ashlyn Maldonado, RT(R)(MR) Trnscb Date/Time: 03/29/2019 (2941) SomJH12 Orig Print D/T: S: 03/29/2019 (1532) PAGE 3 Signed ReportVANCOMYCIN [id number] 00:16:00 Test Item Value Reference Range Interpretation Comments VANCOMYCIN TROUGH (test code = 20.7 mcG/ML 10-20 H VANCT) BASIC METABOLIC [id number] 09:06:00 Test Item Value Reference Range Interpretation [...] CA) 8.6 MG/DL 8.5-10.1 N CBC W/AUTO [id number] 08:47:00 Test Item Value Reference Range Interpretation [...] CRITERIA MDIFF) Comment: postop- XR FLUOROSCOPY 0-60 [id number] 15:46:00 Name: MARCELLE WEISS [facility] ED : 1970 Age/S: 49 / F [address] [address] Unit #: [id number] Loc: [place] [address] Phys: Abilio Maldonado MD Acct: [id number] Dis Date: Status: CAN [facility] PHONE #: [phone] Exam Date: 03/27/2019 0940 FAX #: Reason: LEFT ANKLE I D WITH ANTIBIOTIC BEADS EXAMS: CPT: [id number] XR FLUOROSCOPY 0-60 MIN 90822 Fluoro Time: 4 SEC DAP (Gy m2): Air Kerma (mGy): Examination: Operative fluoroscopy Location code: S17 Comparison: None Discussion: Clinical history is remarkable for left ankle IND, antibody beads. 4.4 seconds fluoroscopic time is utilized. Antibiotic beads are placed along the fibula. Surgical screws are present through the medial malleolus. Impression: Please refer to the operative report. at 1548 Reported and signed by: Camacho Barboza M.D. CC: Abilio Maldonado MD PAGE 1 Signed Report Name: MARCELLE WEISS [facility] ED : 1970 Age/S: 49 / F [address] [address] Unit #: [id number] Loc: [place] [address] Phys: Abilio Maldonado MD Acct: [id number] Dis Date: Status: CAN [facility] PHONE #: [phone] Exam Date: 03/27/2019 0940 FAX #: Reason: LEFT ANKLE I D WITH ANTIBIOTIC BEADS EXAMS: CPT: [id number] XR FLUOROSCOPY 0-60 MIN 66330 Fluoro Time: 4 SEC DAP (Gy m2): Air Kerma (mGy): <Continued> Technologist: Lisa Machuca, RT(R) Trnscb Date/Time: 03/27/2019 (154) [id number] Orig Print D/T: S: 03/27/2019 (8879) PAGE 2 Signed ReportUR HCG [id number] 06:57:00 Test Item Value Reference Range Interpretation Comments UR HCG QUAL (test code = HCGQLU) NEGATIVE NEGATIVE UA RFLX MICR CULT IF [id number] 06:54:00 Test Item Value Reference Range Interpretation [...] culture: Flank PainUA RFLX MICR CULT IF [id number] 06:54:00 Test Item Value Reference Range Interpretation [...] CLEAN CATCHIndication for culture: Flank PainBASIC METABOLIC [id number] 08:09:00 Test Item Value Reference Range Interpretation [...] CA) 8.9 MG/DL 8.5-10.1 N VITAMIN D 08-[id number] 08:09:00 Test Item Value Reference Range Interpretation Comments VITAMIN D 33.2 ng/mL 30.0-100.0 Vitamin D defic iency has 25-HYDROXY (test been define d by the code = VITD25) [facility] edicine and an Endocrine So [facility] practice guidel ine as alevel of serum 25-OH vitamin D less than 20 ng/mL (1,2).The Endocrine Society went on to further define vitamin Dinsufficiency as a level between 21 and 29 ng/mL (2).1. IOM (Ins titute of Medicine). 2010 . Dietary reference int akes for calcium and D. [place]: [employer] .2. Caitlin MF, Jerrell [place], Melida-Michael i ROLLINS, et al. Evaluatio n, treatment, and prevention of vitamin D deficiency: an Endocrine Society clinica l practice guideline. ALLY EM. 2010; 96(7):1911-30.P erformed At: [facility] [id number] [place], [place] [id number] Abilio Rosales MD Ph:[phone] CBC W/AUTO [id number] 13:29:00 Test Item Value Reference Range Interpretation [...] code = NO DIFF/SCN CRITERIA MDIFF) SED [id number] 13:29:00 Test Item Value Reference Range Interpretation Comments SED RATE (test code = SEDW) 10 mm/hr 0-20 N URINALYSIS [id number] 13:12:00 Test Item Value Reference Range Interpretation [...] LEUU) Urine Specimen Type: Clean CatchC REACTIVE [id number] 12:47:00 Test Item Value Reference Range Interpretation Comments C REACTIVE PROTEIN (test code = 1.260 MG/DL 0.000-0.3 H CRP) BASIC METABOLIC [id number] 12:46:00 Test Item Value Reference Range Interpretation [...] CA) 8.9 MG/DL 8.5-10.1 N VITAMIN D 20-[id number] 12:46:00 Test Item Value Reference Range Interpretation Comments VITAMIN D 25-HYDROXY (test code = VITD25) PROTHROMBIN [id number] 12:33:00 Test Item Value Reference Range Interpretation Comments PT PATIENT (test code = PTP) 11.4 SECONDS 9.3-12.9 N INTERNATIONAL NORMAL RATIO 0.99 INR Unit 0.8-1.2 N (test code = INR) THROMBOPLASTIN TIME [id number] 12:33:00 Test Item Value Reference Range Interpretation Comments THROMBOPLASTIN TIME PARTIAL 29.0 SECONDS 26-35 N (test code = PTT) CBC W/AUTO [id number] 12:32:00 Test Item Value Reference Range Interpretation [...] code = NO DIFF/SCN CRITERIA MDIFF) SED [id number] 12:32:00 Test Item Value Reference Range Interpretation Comments SED RATE (test code = SEDW) mm/hr 0-20 - XR CHEST 1 [id number] 12:00:00 Name: MARCELLE WEISS [facility] ED : 1970 Age/S: 49 / F [address] [address] Unit #: [id number] Loc: [place] [address] Phys: Abilio Maldonado MD Acct: [id number] Dis Date: Status: PRE SDC PHONE #: [phone] Exam Date: 03/03/2019 1152 FAX #: Reason: PRE OP EXAMS: CPT: [id number] XR CHEST 1 V 77158 Fluoro Time: DAP (Gy m2): Air Kerma [...] PAGE 1 Signed Report Name: MARCELLE WEISS [facility] ED : 1970 Age/S: 49 / F [address] [address] Unit #: [id number] Loc: [place] [address] Phys: Abilio Maldonado MD Acct: [id number] Dis Date: Status: PRE SDC PHONE #: [phone] Exam Date: 03/03/2019 1152 FAX #: Reason: PRE OP EXAMS: CPT: [id number] XR CHEST 1 V 53844 Fluoro Time: DAP (Gy m2): Air Kerma (mGy): <Continued> Technologist: Kevin Herrera, RT(R)(CT); Lisa Machuca RT(R) Trnscb Date/Time: 03/03/2019 (1200) [id number] Orig Print D/T: S: 03/03/2019 (6552) PAGE 2 Signed Report
[2020-01-28 20:50] LABS: Absolute Lymphocytes (CBC) 1.9 K/uL (0.7-4.9); Basophils % 0.7 % (0-1.3); Hematocrit 33.5 % (36.0-45.0); Lymphocytes % 32.8 % (15.3-44.8); MPV 8.3 fL (7.6-11.3); RBC Red Blood Cell Count 3.75 M/uL (3.86-4.86)
[2020-01-28 21:13] LABS: ALT/SGPT 25 U/L (12-78); AST/SGOT 22 U/L (15-37); Albumin 3.1 g/dL (3.4-5.0); Alkaline Phosphatase 107 U/L (45-117); BUN Blood Urea Nitrogen 7 mg/dL (7-18); Bicarbonate 33 mmol/L (21-32); Bilirubin Direct < 0.1 mg/dL (0-0.2); Bilirubin Total 0.1 mg/dL (0.2-1.0); Glucose Level 108 mg/dL (74-106); Magnesium 1.9 mg/dL (1.8-2.4); NT PRO-BNP 542 pg/mL (<125); Potassium 4.4 mmol/L (3.5-5.1); Protein, Total 6.4 g/dL (6.4-8.2); Sodium Level 143 mmol/L (136-145); Troponin (Emerg Dept Use Only) < 0.02 ng/mL (0.0-0.045)
[2020-01-28] MEDS ORDERED: MEPERIDINE HCL 50 MG/ML ONE ×2 (21:17→22:42)
[2020-01-28 21:27] LABS: Arterial Blood Carboxyhemoglob 1.9 % (0-1.5); Blood Gas Oxyhemoglobin 95.3 % (94-97); Blood O2 Saturation 98.2 % (92-98.5)
[2020-01-28 21:29] LABS: Protime INR 0.88
[2020-01-28] MEDS ORDERED: ONDANSETRON 4 MG/2 ML VIAL ONE (21:38)
--- NOTE | 2020-01-28 23:09 | ER ---
Nurse's Notes [facility] Name: Oleg Rosenberg Age: 49 yrs Sex: Female : 1970 Arrival Date: 01/28/2020 Time: 19:38 Bed 6 Private MD: Diagnosis: Dyspnea. Pain and swelling right leg Presentation: 01/27 19:46 Chief complaint: EMS states: COMPLAINING OF SOB. SHE WAS JUST DISCHARGED TWO WEEKS AGO rv AND SAID SHE CAN HAVE OXYGEN NEEDED. AT THE SCENE HER OXYGEN SATURATION IS AT 98 AT 4 LPM NC. SHE SAID IT WAS 78% BEFORE WE CAME. DENIES CHEST PAIN. PATIENT ALSO STATED THAT SHE IS SWOLLEN AND HAVING PAIN ON ALL FOUR EXTREMITIES. GIVEN ALBUTEROL AND ATROVENT IN ROUTE TO ER. Coronavirus screen: Client denies travel out of the [place] in the last 14 days. cough unrelated to allergies, difficulty breathing, nausea, Client presents with at least one sign or symptom that may indicate coronavirus-19. Standard/surgical mask placed on the client. Provider contacted for isolation considerations. Ebola Screen: No symptoms or risks identified at this time. Initial Sepsis Screen: Does the patient meet any 2 criteria?. Risk Assessment: Do you want to hurt yourself or someone else? Patient reports no desire to harm self or others. Onset of symptoms was January 28, 2020 at 08:00. 19:46 Method Of Arrival: EMS: [facility] rv 19:46 Acuity: AAYUSH 2 rv 22:16 Initial Sepsis Screen: Does the patient have a suspected source of infection? No. rv Patient's initial sepsis screen is negative. Triage Assessment: 19:55 General: Appears uncomfortable, Behavior is calm, cooperative. Pain: Complains of pain rv in right arm, left arm, right leg and left leg. Neuro: Level of Consciousness is awake, alert, obeys commands, Oriented to person, place, time, situation. Cardiovascular: Patient's skin is warm and dry. Respiratory: Airway is patent Respiratory effort is labored, Respiratory pattern is tachypnea Breath sounds are coarse bilaterally. Derm: Skin is intact. 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 - Social history:: Smoking status: Patient denies any tobacco usage or history of. Screenin:56 Abuse screen: Denies threats or abuse. Denies injuries from another. Nutritional rv screening: No deficits noted. Tuberculosis screening: No symptoms or risk factors identified. Fall Risk None identified. Assessment: 22:15 Reassessment: PATIENT IS STILL COMPLAINING OF LOWER LEG PAIN. REFERRED TO DR RAND. NO rv NEW ORDERS RECEIVED. LEGS ELEVATED. WARM BLANKET PLACED ON TOP. POSITIONED TO COMFORT. 23:08 Reassessment: PATIENT REFUSED FURTHER TREATMENT AND MANAGEMENT. DENIES PAIN ON BOTH rv LOWER LEGS AT THE MOMENT. DR RAND AWARE. PATIENT SIGNS AMA FORM. Neuro: Level of Consciousness is awake, alert, obeys commands, Oriented to person, place, time, situation. Vital Signs: 19:46 BP 154 / 96; Pulse 78; Resp 25; Temp 98.2; Pulse Ox 80% on R/A; Weight 166.01 kg; Pain rv 10/10; 19:46 Pulse Ox 99% on 3 lpm NC; rv 22:45 BP 108 / 53; Pulse 55; Resp 18; Pulse Ox 95% 3 lpm ; rv ED Course: 19:38 Patient arrived in ED. iw 19:46 Sukhi Edmondson RN is Primary Nurse. rv 19:54 Triage completed. rv 19:56 Arm band placed on right wrist. Patient placed in the treatment room, on a stretcher, rv Patient notified of wait time. 20:23 Michael Rand MD is Attending Physician. pkl 20:26 Initial lab(s) drawn, by me, sent to lab. Inserted saline lock: 18 gauge in right rv forearm, using aseptic technique. Blood collected. 22:16 Patient has correct armband on for positive identification. Pulse ox on. NIBP on. rv 23:12 No provider procedures requiring assistance completed. IV discontinued, intact, rv bleeding controlled, No redness/swelling at site. Pressure dressing applied. Administered Medications: 21:00 Drug: Demerol 50 mg Route: IVP; Site: right forearm; rv 23:12 Follow up: Response: No adverse reaction; RASS: Alert and Calm (0) rv 21:30 Drug: Zofran (Ondansetron) 4 mg Route: IVP; Site: right forearm; rv 23:12 Follow up: Response: No adverse reaction rv 22:30 Drug: Demerol 50 mg {Note: RASS 0.} Route: IVP; Site: right forearm; rv 23:12 Follow up: Response: No adverse reaction; Marked relief of symptoms; Pain is decreased; rv RASS: Alert and Calm (0) Outcome: 23:12 AMA AMA form signed rv 23:12 Condition: improved 23:13 Patient left the ED. rv Addendum: 01/31/2020 11:25 Addendum: COVID-19 Result: Negative result given to RN to notify pt. Notified pt of s s negative COVID 19 swab results. Pt advised that even with a negative test result they should remain in isolation until symptom free for 3 days without medication. Pt also advised to return to the ED for worsening symptoms. Signatures: Michael Rand MD MD pkl Williams, Irene, RN RN iw Sherice Nunez RN RN ss Vicente, Ronaldo, RN RN rv Corrections: (The following items were deleted from the chart) 01/27 21:46 21:45 Demerol 50 mg IVP in right forearm rv rv
--- NOTE | 2020-01-28 23:10 | EDPHYS ---
Physician Documentation [facility] Name: Oleg Rosenberg Age: 49 yrs Sex: Female : 1970 Arrival Date: 01/28/2020 Time: 19:38 Bed 6 Private MD: ED Physician Michael Bradley HPI: 01/27 21:03 This 49 yrs old Female presents to ER via EMS with unknown complaint. pkl 21:03 The patient has shortness of breath at rest. Onset: The symptoms/episode began/occurred pkl today. Associated signs and symptoms: Pertinent positives: pain and swelling both legs. Patient was discharged from this hospital 2 weeks ago for pneumonia. 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 - Social history:: Smoking status: Patient denies any tobacco usage or history of. ROS: 21:03 Eyes: Negative for injury, pain, redness, and discharge, ENT: Negative for injury, pkl pain, and discharge, Neck: Negative for injury, pain, and swelling, Cardiovascular: Negative for chest pain, palpitations, and edema, Respiratory: Negative for shortness of breath, cough, wheezing, and pleuritic chest pain, Abdomen/GI: Negative for abdominal pain, nausea, vomiting, diarrhea, and constipation, Back: Negative for injury and pain, : Negative for injury, bleeding, discharge, and swelling. 21:03 MS/extremity: Positive for pain, swelling, of the both legs. 21:03 Skin: Negative for rash. 21:03 Neuro: Negative for altered mental status, loss of consciousness. Exam: 21:03 Head/Face: Normocephalic, atraumatic. Eyes: Pupils equal round and reactive to light, pkl extra-ocular motions intact. Lids and lashes normal. Conjunctiva and sclera are non-icteric and not injected. Cornea within normal limits. Periorbital areas with no swelling, redness, or edema. ENT: Nares patent. No nasal discharge, no septal abnormalities noted. Tympanic membranes are normal and external auditory canals are clear. Oropharynx with no redness, swelling, or masses, exudates, or evidence of obstruction, uvula midline. Mucous membranes moist. Neck: Trachea midline, no thyromegaly or masses palpated, and no cervical lymphadenopathy. Supple, full range of motion without nuchal rigidity, or vertebral point tenderness. No Meningismus. Chest/axilla: Normal chest wall appearance and motion. Nontender with no deformity. No lesions are appreciated. Cardiovascular: Regular rate and rhythm with a normal S1 and S2. No gallops, murmurs, or rubs. Normal PMI, no JVD. No pulse deficits. 21:03 Respiratory: mild respiratory distress is noted, Respirations: labored breathing, that is mild, Breath sounds: rales, that are mild, are scattered, are heard in the both lungs. 21:03 Abdomen/GI: Bowel sounds: normal, Palpation: abdomen is soft and non-tender, in all quadrants. 21:03 Back: Exam negative for acute changes. 21:03 : Exam negative for acute changes. 21:03 Musculoskeletal/extremity: Extremities: grossly normal except: noted in the both legs: pain, swelling. 21:03 Skin: Exam negative for rash. 21:03 Neuro: Orientation: is normal, Mentation: is normal, Cranial nerves: grossly normal, Motor: is normal. Vital Signs: 19:46 BP 154 / 96; Pulse 78; Resp 25; Temp 98.2; Pulse Ox 80% on R/A; Weight 166.01 kg; Pain rv 10/10; 19:46 Pulse Ox 99% on 3 lpm NC; rv 22:45 BP 108 / 53; Pulse 55; Resp 18; Pulse Ox 95% 3 lpm ; rv MDM: 20:23 Patient medically screened. pkl 23:06 Data reviewed: vital signs, nurses notes, lab test result(s), EKG, radiologic studies, pkl plain films. ED course: Patient said she is feeling better. Does not want CT Scan chest and US right leg done. Signed AMA. 01/27 20:26 Order name: Basic Metabolic Panel rv 01/27 20:26 Order name: CBC with Diff 01/27 20:26 Order name: LFT's 01/27 20:26 Order name: Magnesium 01/27 20:26 Order name: NT PRO-BNP rv 01/27 20:26 Order name: PT-INR 01/27 20:26 Order name: Troponin (emerg Dept Use Only) 01/27 20:26 Order name: COVID-19 01/27 20:26 Order name: COVID-19 01/27 20:33 Order name: ABG pk 01/27 20:33 Order name: D-Dimer pk 01/27 20:33 Order name: Blood Culture Adult (2) pk 01/27 20:33 Order name: Lactate [facility] 01/27 20:33 Order name: Procalcitonin [facility] 01/27 20:26 Order name: XRAY Chest (1 view) 01/27 20:56 Order name: CBC with Automated Diff; Complete Time: 22:03 [facility] 01/27 21:12 Order name: Lactate; Complete Time: 22:03 [facility] 01/27 21:13 Order name: Basic Metabolic Panel; Complete Time: 22:03 [facility] 01/27 21:13 Order name: Liver (Hepatic) Function; Complete Time: 22:03 [facility] 01/27 21:13 Order name: Troponin (Emerg Dept Use Only); Complete Time: 22:03 [facility] 01/27 21:13 Order name: NT PRO-BNP; Complete Time: 22:03 [facility] 01/27 21:13 Order name: Magnesium; Complete Time: 22:03 [facility] 01/27 21:29 Order name: ABG Arterial Blood Gas; Complete Time: 22:03 [facility] 01/27 21:29 Order name: Procalcitonin; Complete Time: 22:03 [facility] 01/27 21:32 Order name: Protime (+INR); Complete Time: 22:03 [facility] 01/27 21:33 Order name: D-Dimer; Complete Time: 22:03 [facility] 01/27 22:05 Order name: CT Chest For PE Angio pk 01/27 22:22 Order name: US Extremity Venous Unilateral Ltd pk 01/27 20:26 Order name: EKG; Complete Time: 20:27 01/27 20:26 Order name: Cardiac monitoring; Complete Time: 21: rv 01/27 20:26 Order name: EKG - Nurse/Tech; Complete Time: 21: rv 01/27 20:26 Order name: IV Saline Lock; Complete Time: 21: rv 01/27 20: Order name: Labs collected and sent; Complete Time: 21: rv 01/27 20:26 Order name: O2 Per Protocol; Complete Time: 21: rv 01/27 20:26 Order name: O2 Sat Monitoring; Complete Time: 21: rv Administered Medications: 21:00 Drug: Demerol 50 mg Route: IVP; Site: right forearm; rv 23:12 Follow up: Response: No adverse reaction; RASS: Alert and Calm (0) rv 21:30 Drug: Zofran (Ondansetron) 4 mg Route: IVP; Site: right forearm; rv 23:12 Follow up: Response: No adverse reaction rv 22:30 Drug: Demerol 50 mg {Note: RASS 0.} Route: IVP; Site: right forearm; rv 23:12 Follow up: Response: No adverse reaction; Marked relief of symptoms; Pain is decreased; rv RASS: Alert and Calm (0) Disposition: 01/28/20 23:09 Patient has left against medical advice. Impression: Dyspnea. Pain and swelling right leg. - Patients states they are going to Home. - Condition is Stable. Follow up: Private Physician; When: Tomorrow; Reason: Re-evaluation by your physician. - Problem is new. - Symptoms have improved. Signatures: Dispatcher [employer] EDMichael Galindo MD MD pkl Sukhi Edmondson RN RN rv Corrections: (The following items were deleted from the chart) 23:09 23:09 01/28/2020 23:09 Patients has left against medical advice. Patient states they pkl are going to Home. Condition is Stable. Follow up: Private Physician; When: Tomorrow; Reason: Re-evaluation by your physician. Problem is new. Symptoms have improved. pkl 23:13 23:09 01/28/2020 23:09 Patients has left against medical advice. Impression: Dyspnea. rv Pain and swelling right leg. Patient states they are going to Home. Condition is Stable. Follow up: Private Physician; When: Tomorrow; Reason: Re-evaluation by your physician. Problem is new. Symptoms have improved. pkl
[2020-01-28 23:30] VITALS: TEMP 98.2
[2020-01-28 23:36] VITALS: BP 108/53; O2SAT 95
--- NOTE | 2020-01-29 07:29 | RAD REPORT ---
EXAM DESCRIPTION: RAD - Chest Single View - 01/28/2020 9:05 pm CLINICAL HISTORY: DYSPNEA COMPARISON: December 18 TECHNIQUE: AP portable chest image was obtained 01/28/2020 9:05 pm . FINDINGS: Lung volumes are low. Exam further limited by large body habitus affects. No focal mass or consolidations seen. Minimal edema or infiltrate could be masked. Lung markings are less prominent t pollock seen previously. Cardiomegaly is present probably the affects of body habitus and shallow inspira tion portable exam. No measurable pleural effusion and no pneumothorax. No acute bony abnormality see n. No acute aortic findings suspected. IMPRESSION: No acute cardiopulmonary process. Cardiomegaly accentuated by low lung volumes and large body habitus affects.
== END 2020-01-28 23:13 | disposition left against medical advice (07) ==
LOC: ER 19:35
DX: M79.661 Pain in right lower leg (principal); R22.41 Localized swelling, mass and lump, right lower limb; Z20.828 Contact with and (suspected) exposure to other viral communicable diseases; Z88.0 Allergy status to penicillin; Z88.5 Allergy status to narcotic agent; Z88.6 Allergy status to analgesic agent; Z88.8 Allergy status to other drugs, medicaments and biological substances; Z91.041 Radiographic dye allergy status
CPT/HCPCS: 93005; 87040 ×2; 85025; 80048; 36415; 83735; 85610; 85379; 80076; 83605; 84484; 84145; 83880; 71045; 82805; 96375; 96374; 99284; U0002; J2175 ×2; J2405

== ENCOUNTER 2020-02-06 05:56 | Emergency (ER) | payer OTHER ==
[2020-02-06] MEDS ORDERED: PROMETHAZINE INJ 25 MG/ML AMP ONE (06:54)
[2020-02-06] MEDS ORDERED: MEPERIDINE HCL 50 MG/ML ONE ×2 (06:54→07:52)
[2020-02-06] MEDS ORDERED: NA CHLORIDE 0.9% 1,000 ML ONE (06:54)
[2020-02-06] MEDS ORDERED: FAMOTIDINE 20 MG/2 ML VIAL IV ONE (06:54)
[2020-02-06 07:03] LABS: Absolute Lymphocytes (CBC) 2.1 K/uL (0.7-4.9); Basophils % 0.8 % (0-1.3); Hematocrit 37.5 % (36.0-45.0); Lymphocytes % 35.1 % (15.3-44.8); MPV 9.6 fL (7.6-11.3); RBC Red Blood Cell Count 4.25 M/uL (3.86-4.86)
[2020-02-06 07:11] LABS: Albumin 3.7 g/dL (3.4-5.0); Bilirubin Direct 0.1 mg/dL (0-0.2); Bilirubin Total 0.4 mg/dL (0.2-1.0); Potassium 3.7 mmol/L (3.5-5.1); Protein, Total 7.2 g/dL (6.4-8.2)
--- NOTE | 2020-02-06 08:04 | RAD REPORT ---
EXAM DESCRIPTION: CT - Abdomen Pelvis Wo Contrast - 02/06/2020 7:17 am CLINICAL HISTORY: Abdominal pain COMPARISON: November 2019 TECHNIQUE: Computed axial tomography of the abdomen and pelvis was obtained. IV and oral contrast we re not requested. All CT scans are performed using dose optimization technique as appropriate and may include automated exposure control or mA/KV adjustment according to patient size. FINDINGS: The evaluation of solid organs, vessels and bowel is limited secondary to the lack of con trast administration. The liver, spleen, pancreas, and adrenals appear grossly normal. Left nephrectomy. Tiny right renal a ngio myelolipoma The appendix is normal. There is no evidence of diverticulitis. Tiny umbilical hernia. Moderate hiatal hernia IMPRESSION: No acute abnormality is displayed.
--- NOTE | 2020-02-06 08:07 | ER ---
Nurse's Notes [facility] Name: Oleg Rosenberg Age: 49 yrs Sex: Female : 1970 Arrival Date: 02/06/2020 Time: 05:57 Bed 5 Private MD: Diagnosis: Unspecified abdominal pain Presentation: 02/05 05:58 Chief complaint: EMS states: they were toned out for report of pt with abdominal pain, bb vomiting and diarrhea since yesterday. Coronavirus screen: At this time, the client does not indicate any symptoms associated with coronavirus-19. Ebola Screen: No symptoms or risks identified at this time. Initial Sepsis Screen: Does the patient meet any 2 criteria? No. Patient's initial sepsis screen is negative. Does the patient have a suspected source of infection? No. Patient's initial sepsis screen is negative. Risk Assessment: Do you want to hurt yourself or someone else? Patient reports no desire to harm self or others. Onset of symptoms was February 05, 2020. 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 LMP N/A - Hysterectomy bb Historical: - Allergies: 06:01 Aspirin; bb 06:01 Dilaudid; bb 06:01 Iodinated Contrast Media - IV Dye; bb 06:01 Iodine; bb 06:01 Morphine; bb 06:01 Mucinex; bb 06:01 NSAIDS; bb 06:01 PENICILLINS; bb 06:01 Zofran; bb - Home Meds: 06:01 Adderall XR 30 mg Oral cp24 twice a day [Active]; Ambien 10 mg Oral tab qhs prn for bb Sleep-Onset Insomnia [Active]; Breo Ellipta inhalation twice a day [Active]; Cogentin Oral 1 mg three times a day [Active]; Equetro 200 mg Oral CM12 three times a day [Active]; levalbuterol tartrate inhalation every 6 hours [Active]; losartan 25 mg Oral tab 1 tab once daily [Active]; Lyrica 150 mg Oral 2 times per day [Active]; Proventil Inhl every 6 hours [Active]; tizanidine 4 mg Oral cap twice a day [Active]; trazodone 100 mg Oral tab nightly [Active]; Valium 5 mg Oral tab 1 tab 2 times per day [Active]; Vraylar 3 mg Oral cap 1 cap once daily [Active]; - PMHx: 06:01 Asthma; Bipolar disorder; Bronchitis; COPD; Depression; kidney cancer; bb - PSHx: 06:01 LEFT KIDNEY REMOVED; Hysterectomy; bb - Immunization history:: Adult Immunizations up to date. - Social history:: Smoking status: Patient/guardian denies using tobacco, Stopped _ months ago 2. Screenin:18 Abuse screen: Denies threats or abuse. Denies injuries from another. Nutritional wh screening: No deficits noted. Tuberculosis screening: No symptoms or risk factors identified. Fall Risk None identified. Assessment: 06:17 General: Appears uncomfortable, Behavior is cooperative, listless. Pain: Complains of wh pain in left upper quadrant and left lower quadrant Pain does not radiate. Pain currently is 9 out of 10 on a pain scale. Quality of pain is described as crampy, Pain began 3 hours ago. Neuro: Level of Consciousness is awake, alert, obeys commands, Oriented to person, place, time, situation, Appropriate for age. Cardiovascular: Capillary refill < 3 seconds. Cardiovascular: Heart tones S1 S2. Respiratory: Airway is patent Respiratory effort is even, unlabored, Respiratory pattern is regular, symmetrical. Respiratory: Breath sounds are clear bilaterally. GI: Abdomen is round non-distended, Bowel sounds present X 4 quads. Abd is soft Abdomen is tender to palpation in left upper quadrant and left lower quadrant Reports diarrhea, nausea. : No signs and/or symptoms were reported regarding the genitourinary system. EENT: No signs and/or symptoms were reported regarding the EENT system. Derm: Skin is intact, is healthy with good turgor, Skin is pink, warm \T\ dry. normal. Musculoskeletal: Circulation, motion, and sensation intact. 06:52 Reassessment: Patient is alert, oriented x 3, equal unlabored respirations, skin bb warm/dry/pink. pt c/o abdominal pain states she thinks it is her hernia, IV site intact, patent with fluids infusing. 07:21 Reassessment: Patient appears in no apparent distress at this time. Patient and/or hb family updated on plan of care and expected duration. Pain level reassessed. Patient is alert, oriented x 3, equal unlabored respirations, skin warm/dry/pink. 07:43 Reassessment: Pt restless, c/o pain 9/10, repeat Demerol administered as ordered. hb 08:27 Reassessment: Discharge ordered, awaiting transportation at this time. hb Vital Signs: 05:58 BP 105 / 72; Pulse 69; Resp 16 S; Temp 97.6(A); Pulse Ox 98% on R/A; Weight 163.29 kg bb (R); Height 5 ft. 6 in. (167.64 cm) (R); Pain 10/10; 05:58 Body Mass Index 58.10 (163.29 kg, 167.64 cm) bb ED Course: 05:57 Patient arrived in ED. cl3 05:59 Triage completed. bb 06:01 Arm band placed on Patient placed in an exam room, on a stretcher, on pulse oximetry. bb 06:03 Logan Saucedo MD is Attending Physician. mh7 06:10 Inserted saline lock: 22 gauge in left antecubital area, using aseptic technique. Blood ds4 collected. 06:18 Patient has correct armband on for positive identification. Bed in low position. Call wh light in reach. Side rails up X 1. Pulse ox on. NIBP on. 06:35 Muna Daniel is Primary Nurse. wh 06:48 EKG done, by ED staff, reviewed by Logan Saucedo MD. ds4 07:18 CT Abd/Pelvis - Without Contrast In Process Unspecified. EDMS 07:20 Attending Physician role handed off by Logan Saucedo MD rn 07:20 Ihsan Song MD is Attending Physician. rn 08:31 No provider procedures requiring assistance completed. IV discontinued, intact, hb bleeding controlled, No redness/swelling at site. Administered Medications: 06:50 Drug: NS 0.9% 1000 ml Route: IV; Rate: 1000 ml; Site: left antecubital; bb 06:53 Drug: Phenergan 25 mg Route: IVP; Site: left antecubital; bb 07:20 Follow up: Response: No adverse reaction hb 06:54 Drug: Demerol 25 mg {Note: RASS 0.} Route: IVP; Site: left antecubital; bb 07:20 Follow up: Response: No adverse reaction hb 06:55 Drug: Pepcid 20 mg Route: IVP; Site: left antecubital; bb 07:20 Follow up: Response: No adverse reaction hb 07:43 Drug: Demerol 50 mg Route: IVP; Site: left antecubital; hb Outcome: 08:07 Discharge ordered by . denton 08:31 Discharged to home ambulatory. hb 08:31 Condition: stable 08:31 Discharge instructions given to patient, Instructed on discharge instructions, follow up and referral plans. medication usage, Demonstrated understanding of instructions, follow-up care, medications. 08:45 Patient left the ED. hb Signatures: Dispatcher [employer] EDMS Jemima Mcwilliams RN RN bb Nieto, Roman, MD MD rn Swanson, Donovan ds4 Clarita Foreman RN RN Muna Daniel Charde cl3 Logan Saucedo MD MD [id number]
--- NOTE | 2020-02-06 08:07 | EDPHYS ---
Physician Documentation [facility] Name: Oleg Rosenberg Age: 49 yrs Sex: Female : 1970 Arrival Date: 02/06/2020 Time: 05:57 Bed 5 Private MD: ED Physician Ihsan Song HPI: 02/05 06:36 This 49 yrs old Female presents to ER via EMS with complaints of Abdominal mh7 Pain. 06:36 The patient presents with abdominal pain in the upper abdomen. Onset: The mh7 symptoms/episode began/occurred this morning, at 03:30. The symptoms do not radiate. Associated signs and symptoms: Pertinent positives: nausea, vomiting, and diarrhea, Pertinent negatives: anorexia, blood in stools, chest pain, constipation, dysuria, fever, headache, hematuria, palpitations, shortness of breath, vaginal discharge, vomiting blood. The symptoms are described as intermittent, vague, waxing/waning. Modifying factors: The symptoms are alleviated by nothing, the symptoms are aggravated by nothing. Severity of pain: At its worst the pain was moderate today, in the emergency department the pain is unchanged. 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 LMP N/A - Hysterectomy bb Historical: - Allergies: 06:01 Aspirin; bb 06:01 Dilaudid; bb 06:01 Iodinated Contrast Media - IV Dye; bb 06:01 Iodine; bb 06:01 Morphine; bb 06:01 Mucinex; bb 06:01 NSAIDS; bb 06:01 PENICILLINS; bb 06:01 Zofran; bb - Home Meds: 06:01 Adderall XR 30 mg Oral cp24 twice a day [Active]; Ambien 10 mg Oral tab qhs prn for bb Sleep-Onset Insomnia [Active]; Breo Ellipta inhalation twice a day [Active]; Cogentin Oral 1 mg three times a day [Active]; Equetro 200 mg Oral CM12 three times a day [Active]; levalbuterol tartrate inhalation every 6 hours [Active]; losartan 25 mg Oral tab 1 tab once daily [Active]; Lyrica 150 mg Oral 2 times per day [Active]; Proventil Inhl every 6 hours [Active]; tizanidine 4 mg Oral cap twice a day [Active]; trazodone 100 mg Oral tab nightly [Active]; Valium 5 mg Oral tab 1 tab 2 times per day [Active]; Vraylar 3 mg Oral cap 1 cap once daily [Active]; - PMHx: 06:01 Asthma; Bipolar disorder; Bronchitis; COPD; Depression; kidney cancer; bb - PSHx: 06:01 LEFT KIDNEY REMOVED; Hysterectomy; bb - Immunization history:: Adult Immunizations up to date. - Social history:: Smoking status: Patient/guardian denies using tobacco, Stopped _ months ago 2. ROS: 06:36 Constitutional: Negative for fever, chills, and weight loss, Eyes: Negative for injury, mh7 pain, redness, and discharge, ENT: Negative for injury, pain, and discharge, Neck: Negative for injury, pain, and swelling, Cardiovascular: Negative for chest pain, palpitations, and edema, Respiratory: Negative for shortness of breath, cough, wheezing, and pleuritic chest pain, Back: Negative for injury and pain, : Negative for injury, bleeding, discharge, and swelling, MS/Extremity: Negative for injury and deformity, Skin: Negative for injury, rash, and discoloration, Neuro: Negative for headache, weakness, numbness, tingling, and seizure, Psych: Negative for depression, anxiety, suicide ideation, homicidal ideation, and hallucinations, Allergy/Immunology: Negative for hives, rash, and allergies, Endocrine: Negative for neck swelling, polydipsia, polyuria, polyphagia, and marked weight changes, Hematologic/Lymphatic: Negative for swollen nodes, abnormal bleeding, and unusual bruising. Exam: 06:36 Head/Face: Normocephalic, atraumatic. Eyes: Pupils equal round and reactive to light, mh7 extra-ocular motions intact. Lids and lashes normal. Conjunctiva and sclera are non-icteric and not injected. Cornea within normal limits. Periorbital areas with no swelling, redness, or edema. Neck: Trachea midline, no thyromegaly or masses palpated, and no cervical lymphadenopathy. Supple, full range of motion without nuchal rigidity, or vertebral point tenderness. No Meningismus. Chest/axilla: Normal chest wall appearance and motion. Nontender with no deformity. No lesions are appreciated. Cardiovascular: Regular rate and rhythm with a normal S1 and S2. No gallops, murmurs, or rubs. Normal PMI, no JVD. No pulse deficits. Respiratory: Lungs have equal breath sounds bilaterally, clear to auscultation and percussion. No rales, rhonchi or wheezes noted. No increased work of breathing, no retractions or nasal flaring. 06:36 Constitutional: The patient appears in no acute distress, alert, awake, uncomfortable. 06:36 Abdomen/GI: Inspection: abdomen appears normal, obese Bowel sounds: normal, in all quadrants, Palpation: moderate abdominal tenderness, in the epigastric area and umbilical area. 06:42 Back: No spinal tenderness. No costovertebral tenderness. Full range of motion. mh7 Skin: Warm, dry with normal turgor. Normal color with no rashes, no lesions, and no evidence of cellulitis. MS/ Extremity: Pulses equal, no cyanosis. Neurovascular intact. Full, normal range of motion. Neuro: Awake and alert, GCS 15, oriented to person, place, time, and situation. Cranial nerves II-XII grossly intact. Motor strength 5/5 in all extremities. Sensory grossly intact. Cerebellar exam normal. Normal gait. Psych: Awake, alert, with orientation to person, place and time. Behavior, mood, and affect are within normal limits. 06:42 Abdomen/GI: Rectal exam: the exam is deferred, because of patient request, Indicators: McBurney's point is not tender, Torres's sign is negative, Rovsing's sign is negative, Obturator sign is negative, Psoas sign is negative, Liver: no appreciated palpable abnormalities, Hernia: not appreciated. Vital Signs: 05:58 BP 105 / 72; Pulse 69; Resp 16 S; Temp 97.6(A); Pulse Ox 98% on R/A; Weight 163.29 kg bb (R); Height 5 ft. 6 in. (167.64 cm) (R); Pain 10/10; 05:58 Body Mass Index 58.10 (163.29 kg, 167.64 cm) bb MDM: 06:32 Patient medically screened. [facility] 07:36 Differential diagnosis: bowel obstruction, gastritis, gastroesophageal reflux disease, rn non-specific abd pain, pancreatitis, Peptic Ulcer Disease, hernia. Data reviewed: vital signs, nurses notes, lab test result(s). 08:06 Counseling: I had a detailed discussion with the patient and/or guardian regarding: the rn historical points, exam findings, and any diagnostic results supporting the discharge/admit diagnosis, lab results, radiology results, the need for outpatient follow up, to return to the emergency department if symptoms worsen or persist or if there are any questions or concerns that arise at home. Response to treatment: the patient's symptoms have mildly improved after treatment, and as a result, I will discharge patient. Special discussion: Based on the patient's Hx, exam, and Dx evaluation, there is no indication for emergent surgery or inpatient Tx. It is understood by the patient/guardian that if the Sx's persist or worsen they need to return immediately for re-evaluation. I discussed with the patient/guardian in detail that at this point there is no indication for admission to the hospital. It is understood, however, that if the symptoms persist or worsen the patient needs to return immediately for re-evaluation. ED course: CT and bloodwork without acute findings, pain improved, will dc home with return precautions. . 02/05 06:35 Order name: Basic Metabolic Panel; Complete Time: 07:20 mh7 02/05 06:35 Order name: CBC with Diff; Complete Time: 07:20 mh7 02/05 06:35 Order name: Hepatic Function; Complete Time: 07:20 mh7 02/05 06:35 Order name: Lipase; Complete Time: 07:20 mh7 02/05 06:57 Order name: CT Abd/Pelvis - Without Contrast; Complete Time: 08:06 mh7 02/05 06:35 Order name: IV Saline Lock; Complete Time: 06:36 mh7 02/05 06:35 Order name: Labs collected and sent; Complete Time: 06:38 mh7 02/05 06:35 Order name: EKG - Nurse/Tech; Complete Time: 06:48 mh7 Administered Medications: 06:50 Drug: NS 0.9% 1000 ml Route: IV; Rate: 1000 ml; Site: left antecubital; bb 06:53 Drug: Phenergan 25 mg Route: IVP; Site: left antecubital; bb 07:20 Follow up: Response: No adverse reaction hb 06:54 Drug: Demerol 25 mg {Note: RASS 0.} Route: IVP; Site: left antecubital; bb 07:20 Follow up: Response: No adverse reaction hb 06:55 Drug: Pepcid 20 mg Route: IVP; Site: left antecubital; bb 07:20 Follow up: Response: No adverse reaction hb 07:43 Drug: Demerol 50 mg Route: IVP; Site: left antecubital; hb Disposition: 02/06/20 08:07 Discharged to Home. Impression: Unspecified abdominal pain. - Condition is Stable. - Discharge Instructions: Abdominal Pain, Adult. - Medication Reconciliation Form, Thank You Letter, Antibiotic Education, Prescription Opioid Use form. - Follow up: Private Physician; When: As needed; Reason: Recheck today's complaints, Re-evaluation by your physician. - Problem is new. - Symptoms have improved. Signatures: Dispatcher [employer] EDJemima Flores RN RN bb Ihsan Song MD MD rn Baxter, Heather, RN RN hb Holmes, Maurice, MD MD mh7 Corrections: (The following items were deleted from the chart) 08:45 08:07 02/06/2020 08:07 Discharged to Home. Impression: Unspecified abdominal pain. hb Condition is Stable. Forms are Medication Reconciliation Form, Thank You Letter, Antibiotic Education, Prescription Opioid Use. Follow up: Private Physician; When: As needed; Reason: Recheck today's complaints, Re-evaluation by your physician. Problem is new. Symptoms have improved. rn
[2020-02-06 09:01] VITALS: BP 105/72; TEMP 97.6; O2SAT 98
--- NOTE | 2020-02-07 05:58 | EKG ---
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
--- OUTSIDE RECORDS SUMMARY | 2020-02-08 10:22 | XMS REPORT | Continuity of Care Document ---
:1970 Author Organization [facility] t Address [address] [place] [address] Care Team Providers Name Role Phone Unavailable Unavailable Unavailable Payers Payer Name Policy Type Policy Number Effective Date Expiration Date S ource Problems This patient has no known problems. Allergies, Adverse Reactions, Alerts Allergy Allergy Status Severity Reaction(s) Onset Inactive Treating Comm ents Source Name Type Date Date Clinician fentanyl DA Active NE [facility] 5-27 Clear 00:00: [place]agne 00 [facility] Iodinate DA Active SV 2018-05 [facility] d 05-03 Clear Contrast 00:00: Champagne Media [facility] NSAIDS DA Active SV 2018-05 [facility] (Non-Remigio 05-03 Clear roidal 00:00: Champagne Anti-Inf 00 [facility] Penicill DA Active SV 2018-05 [facility] ins 05-03 Clear 00:00: Champagne [facility] morphine DA Active SV 2018-05 [facility] 05-03 Clear 00:00: Champagne 00 [facility] aspirin DA Active U 2018-05 [facility] 05-03 Clear 00:00: Champagne 00 [facility] hydromor DA Active SV 2018-05 [facility] phone 05-03 Clear 00:00: Champagne 00 [facility] shellfis FA Active SV 2018-05 [facility] h 05-03 Clear derived 00:00: Champagne 00 [facility] No Known DA Active U [facility] [...] code = COVNONPUI) Negative Negative COMPREHENSIVE METABOLIC [id number] 09:36:00 Test Item Value Reference Range Interpretation [...] TOTAL (test code = ALKP) HCG SERUM [id number] 09:36:00 Test Item Value Reference Range Interpretation Comments HCG SERUM QUAL (test code = SERUM NEGATIVE NEGATIVE HCGQL) - XR CHEST 2 [id number] 09:35:00 FAX: Jigar Velasco DPAdryan [phone] [place]: St: PRE FAX: Adele Hernández MD [phone] Name: MARCELLE WEISS [facility] [place] [place] : 1970 Age/S: 49/F [address] [place] [address] Unit #: [id number] Loc: [place] [address] Phys: Jigar Jurado DPM Acct: [id number] Dis Date: Status: PRE SDC PHONE #: [phone] Exam Date: 09/27/2019930 FAX #: [phone] Reason: PREOP- PAIN D/T ORTHOPEDIC IMPLANT EXAMS: CPT CODE: [id number] XR CHEST 2 V 70142 Two-view chest: HISTORY: Preoperative clearance for painful orthopedic implant. FINDINGS: Stable mild cardiomegaly compared with 05/07/2019. Development of areas of bibasilar subsegmental atelectasis. No pleural effusion or bony pathology IMPRESSION: Bibasilar s ubsegmental atelectasis SL: [id number] at 0935 Reported and signed by: Sammy Branham M.D. CC: Jigar Jurado DPM; Adele York MD Technologist: Diamond Castro, RT(R) Trnscrd Date/Time/By: 09/27/2019 (0935) : By: SomETG Orig Print D/T: S: 09/27/2019 (2675) PAGE 1 Signed ReportCOMPREHENSIVE METABOLIC [id number] 09:28:00 Test Item Value Reference Range Interpretation [...] IUnit/L 20-125 code = ALKP) HCG SERUM [id number] 09:28:00 Test Item Value Reference Range Interpretation Comments HCG SERUM QUAL (test code = SERUM NEGATIVE NEGATIVE HCGQL) CBC W/AUTO [id number] 09:21:00 Test Item Value Reference Range Interpretation [...] (test NO code = MDIFF) BASIC METABOLIC [id number] 09:50:00 Test Item Value Reference Range Interpretation [...] = CA) 9.5 MG/DL 8.5-10.1 N VANCOMYCIN [id number] 21:06:00 Test Item Value Reference Range Interpretation Comments VANCOMYCIN TROUGH (test code = 19.1 mcG/ML 10-20 N VANCT) GLUCOSE BEDSIDE [id number] 20:17:00 Test Item Value Reference Range Interpretation Comments GLUCOSE BEDSIDE TESTING (test code = 84 mg/dL 70-110 N GLUBED) - NM BONE 3 [id number] 19:51:00 FAX: Dwight Parrish MD Cam[place]: PM St: ADM FAX: Bettye Alves MD [phone] Name: MARCELLE WEISS [facility] : 1970 Age/S: 49/F [address] [facility] Unit #: [id number] Loc: [address] [place] [address] Phys: Bettye Mullins MD Acct: [id number] Dis Date: Status: ADM IN PHONE #: [phone] Exam Date: 05/09/2019 6300 FAX #: Reason: OM ANDHARDWARE INFECTION LEFT ANKLE EXAMS: CPT: [id number] NM BONE 3 PHASE 21652 EXAM: - NM BONE 3 PHASE HISTORY: [...] <2 ng/mL are obtai emily. BASIC METABOLIC [id number] 14:15:00 Test Item Value Reference Range Interpretation [...] <2 ng/mL are obtai emily. CBC W/AUTO [id number] 07:54:00 Test Item Value Reference Range Interpretation [...] code = NO DIFF/SCN CRITERIA MDIFF) SED [id number] 07:54:00 Test Item Value Reference Range Interpretation Comments SED RATE (test code = SEDW) 19 mm/hr 0-20 N BASIC METABOLIC [id number] 06:17:00 Test Item Value Reference Range Interpretation [...] (test code = ng/ml PROCAL) CBC W/AUTO [id number] 06:08:00 Test Item Value Reference Range Interpretation [...] code = NO DIFF/SCN CRITERIA MDIFF) SED [id number] 06:08:00 Test Item Value Reference Range Interpretation Comments SED RATE (test code = SEDW) mm/hr 0-20 [id number] 02:57:00 Test Item Value Reference Range Interpretation [...] may basilio yby method. Completed by Nursing: [id number] 23:57:00 Test Item Value Reference Range Interpretation [...] by Nursing: BIRGITUA RFLX MICR CULT IF [id number] 18:41:00 Test Item Value Reference Range Interpretation [...] for culture: Dysuria/FrequencyUA RFLX MICR CULT IF [id number] 18:41:00 Test Item Value Reference Range Interpretation [...] CLEAN CATCHIndication for culture: Dysuria/Frequency COMPREHENSIVE METABOLIC [id number] 18:23:00 Test Item Value Reference Range Interpretation [...] TOTAL (test code = ALKP) CBC W/AUTO [id number] 18:03:00 Test Item Value Reference Range Interpretation [...] = NO DIFF/SCN CRITERIA MDIFF) LACTIC ACID [id number] 17:58:00 Test Item Value Reference Range Interpretation Comments LACTIC ACID POC (test code = 1.93 MMOL/L 0.90-1.70 H LACTP) - XR ANKLE 3+V [id number] 17:50:00 Name: ABHISHEK,MARCELLE Cornelius [facility] : 1970 Age/S: 49 / F [address] [address] Unit #: [id number] Loc: [place] [address] Phys: Aletha Valerio MD Acct: [id number] Dis Date: Status: REG ER PHONE #: [phone] Exam Date: 05/07/2019 174 FAX #: Reason: ankle EXAMS: CPT: [id number] XR ANKLE 3+[place] [address] Fluoro Time: DAP (Gy m2): Air Kerma [...] 1 Signed Report [facility] 1970 Age/S: 49 / F [address] Unit #: [id number] Loc: [place] [address] Phys: Aletha Valerio MD Acct: [id number] Dis Date: Status: REG ER PHONE #: [phone] Exam Date: 05/07/2019 1740 FAX #: Reason:ankle EXAMS: CPT: [id number] XR ANKLE 3+[place] [address] Fluoro Time: DAP (Gy m2): Air Kerma (mGy): <Continued> Technologist: RT Charles(R)(MR) Trnscb Date/Time: 05/07/2019 (175) 16 Orig Print D/T: S: 05/07/2019 (2527) PAGE 2 Signed Report- XR CHEST 1 [id number] 17:40:00 Name: MARCELLE WEISS [facility] : 1970 Age/S: 49 / F [address] [address] Unit #: [id number] Loc: [place] [address] Phys: Aletha Valerio MD Acct: [id number] Dis Date: Status: REG ER PHONE #: [phone] Exam Date: 05/07/20191709 FAX #: Reason: infection EXAMS: CPT: [id number] XR CHEST 1 V 78190 Fluoro Time: DAP (Gy m2): Air Kerma [...] PAGE 1 Signed Report Name: MARCELLE WEISS [facility] : 1970 Age/S: 49 / F [address] [address] Unit #: [id number] Loc: [place] [address] Phys:Aletha Valerio MD Acct: [id number] Dis Date: Status: REG ER PHONE #: [phone] Exam Date: 05/07/2019 1710 FAX #: Reason: infection EXAMS: CPT: [id number] XR CHEST1 V 58720 Fluoro Time: DAP (Gy m2): Air Kerma (mGy): <Continued> Technologist: RT Charles(R)(MR) Trnscb Date/Time: 05/07/2019 (1739) 16 Orig Print D/T: S: 05/07/2019 (799) PAGE 2 Signed ReportPROCALCITONIN (PCT)2019-04-27 03:09:00 Test [...] concentrations <2 ng/mL are obtai emily. SED [id number] 13:10:00 Test Item Value Reference Range Interpretation Comments SED RATE (test code = SEDW) 30 mm/hr 0-20 H [id number] 02:18:00 Test Item Value Reference Range Interpretation [...] may basilio yby method. Completed by Nursing: [id number] 23:37:00 Test Item Value Reference Range Interpretation [...] yby method. Completed by Nursing: NOCHEMISTRY 8 [id number] 22:03:00 Test Item Value Reference Range Interpretation [...] 58-135 N code = GFRBED) CHEMISTRY 8 [id number] 22:03:00 Test Item Value Reference Range Interpretation [...] code = GFRBED) - CT CHEST W/O [id number] 21:11:00 Name: MARCELLE WEISS Adryan [facility] : 1970 Age/S: 49 / F [address] [address] Unit #: [id number] Loc: [place] [address] Phys: Uday Maya MD Acct: [id number] Dis Date: Status: ADM IN PHONE #: [phone] Exam Date: 04/25/20192042 FAX #: Reason: lung mass EXAMS: CPT: [id number] CT CHEST W/O CONTRAST 56281 Exam: CT thorax without contrast. Location: H [...] 1 Signed Report (CONTINUED) Name: MARCELLE WEISS [facility] : 1970 Age/S: 49 / F [address] [address] Unit #: [id number] Loc: [place] [address] Phys: Uday Maya MD Acct: [id number] Dis Date: Status: ADM IN PHONE #: [phone] Exam Date: 04/25/20192042 FAX #: Reason: lung mass EXAMS: CPT: [id number] CT CHEST W/O CONTRAST 35013 <Continued> CC: Uday Maya MD; Aletha Valerio [...] TOTAL (test code = ALKP) CBC W/AUTO [id number] 20:01:00 Test Item Value Reference Range Interpretation [...] = NO DIFF/SCN CRITERIA MDIFF) TROPONIN I [id number] 19:58:00 Test Item Value Reference Range Interpretation Comments TROPONIN I RAPID 0.00 ng/mL 0.00-0.08 N - The use o f serial (test code = sampling and te sting TROPIRAP) protocol is a recommended pra ctice- An elevated tro ponin level alone is often not sufficient for diagnosis of my ocardial infarction. LACTIC ACID [id number] 19:58:00 Test Item Value Reference Range Interpretation Comments LACTIC ACID POC (test code = 1.43 MMOL/L 0.90-1.70 N LACTP) - XR CHEST 1 [id number] 19:42:00 Name: ABHISHEKMARCELLE [facility] : 1970 Age/S: 49 / F [address] [address] Unit #: [id number] Loc: [place] [address] Phys: Aletha Valerio MD Acct: [id number] Dis Date: Status: REG ER PHONE #: [phone] Exam Date: 04/25/20191919 FAX #: Reason: Suspected Sepsis EXAMS: CPT: [id number] XR CHEST 1 V 44250 Fluoro Time: DAP (Gy m2): Air Kerma [...] PAGE 1 Signed Report Name: MARCELLE WEISS [facility] : 1970 Age/S: 49 / F [address] [address] Unit #: [id number] Loc: [place] [address] Phys: Aletha Valerio MD Acct: [id number] Dis Date: Status: REG ER PHONE #: [phone] Exam Date: 04/25/20191919 FAX #: Reason: Suspected Sepsis E XAMS: CPT: [id number] XR CHEST 1 V 88847 Fluoro Time: DAP (Gy m2): Air Kerma (mGy): <Continued> Technologist: David Cole RT(R)(CT) TrnscbDate/Time: 04/25/2019 (1941) SomGS29 Orig Print D/T: S: 04/25/2019 (1945) PAGE 2 Signed ReportBASIC METABOLIC [id number] 06:51:00 Test Item Value Reference Range Interpretation [...] CA) 8.8 MG/DL 8.5-10.1 N CBC W/AUTO [id number] 06:27:00 Test Item Value Reference Range Interpretation [...] = NO DIFF/SCN CRITERIA MDIFF) BASIC METABOLIC [id number] 18:56:00 Test Item Value Reference Range Interpretation [...] CA) 9.0 MG/DL 8.5-10.1 N BASIC METABOLIC [id number] 18:53:00 Test Item Value Reference Range Interpretation [...] CA) 9.0 MG/DL 8.5-10.1 N CBC W/AUTO [id number] 18:52:00 Test Item Value Reference Range Interpretation [...] = NO DIFF/SCN CRITERIA MDIFF) CBC W/AUTO [id number] 07:16:00 Test Item Value Reference Range Interpretation [...] = NO DIFF/SCN CRITERIA MDIFF) BASIC METABOLIC [id number] 07:11:00 Test Item Value Reference Range Interpretation [...] CA) 8.7 MG/DL 8.5-10.1 N BASIC METABOLIC [id number] 11:01:00 Test Item Value Reference Range Interpretation [...] CA) 8.6 MG/DL 8.5-10.1 N CBC W/AUTO [id number] 10:24:00 Test Item Value Reference Range Interpretation [...] = NO DIFF/SCN CRITERIA MDIFF) BASIC METABOLIC [id number] 05:56:00 Test Item Value Reference Range Interpretation [...] CA) 8.8 MG/DL 8.5-10.1 N CBC W/AUTO [id number] 05:51:00 Test Item Value Reference Range Interpretation [...] = NO DIFF/SCN CRITERIA MDIFF) CBC W/AUTO [id number] 06:08:00 Test Item Value Reference Range Interpretation [...] = NO DIFF/SCN CRITERIA MDIFF) BASIC METABOLIC [id number] 05:55:00 Test Item Value Reference Range Interpretation [...] = CA) 9.0 MG/DL 8.5-10.1 N VANCOMYCIN [id number] 14:35:00 Test Item Value Reference Range Interpretation Comments VANCOMYCIN TROUGH (test code = 17.4 mcG/ML 10-20 N VANCT) BASIC METABOLIC [id number] 06:49:00 Test Item Value Reference Range Interpretation [...] CA) 8.5 MG/DL 8.5-10.1 N CBC W/AUTO [id number] 06:44:00 Test Item Value Reference Range Interpretation [...] NO DIFF/SCN CRITERIA MDIFF) - US GUIDANCE [facility] [id number] 13:25:00 Name: MARCELLE WEISS [facility] : 1970 Age/S: 49 / F [address] Unit #: [id number] Loc: [place] [address] Phys: Theodore Gonzalez MD Acct: [id number] Dis Date: Status: ADM IN PHONE #: [phone] Exam Date: 03/29/2019 1550 FAX #: Reason: PICC LINE PLACEMENT EXAMS: CPT: [id number] US GUIDANCE VASC ACCESS 83542 Examination: PICC line insertion Location code: S17 Comparison: None 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 at 1325 Reported and signed by: Camacho Barboza M.D. CC: Theodore Gonzalez MD; Adele York MD Technologist: Esthela Krishnamurthy, RT(R),RDMS(AB) Trnscb Date/Time: 03/29/2019 (1325) SomJH12 PAGE 2 Signed Report Name: MARCELLE WEISS [place] : 1970 Age/S: 49 / F [address] [address] Unit #: [id number] Loc: [place] [address] Phys: Theodore Gonzalez MD Acct: [id number] Dis Date: Status: ADM IN PHONE #: [phone] Exam Date: 03/29/2019 1550 FAX #: Reason: PICC LINE PLACEMENT EXAMS: CPT: [id number] US GUIDANCE VASC ACCESS 47695 <Continued> Orig Print D/T: S: 03/29/2019 (5544) Probe: PAGE 3 Signed Report- FLUORO GUID CTRL ACC [id number] 13:25:00 [facility] [place] [facility] 1970 Age/S: 49 / F [address] [address] Unit #: [id number] Loc: [place] [address] Phys: Bettye Mullins MD Acct: [id number] Dis Date: Status: ADM IN PHONE #: [phone] Exam Date: 03/29/2019 1301 FAX #: Reason: prolonged antibx EXAMS: CPT: [id number] FLUORO GUID CTRL ACC DEV 37743 Fluoro Time: DAP (Gy m2): Air Kerma (mGy): Examination: PICC line insertion Location code: S17 Comparison: None 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 Judicial Assistant: None Sedation: None Anesthesia: 1% lidocaine subcutaneous [...] 1 Signed Report (CONTINUED) Name: MARCELLE WEISS [facility] : 1970 Age/S: 49 / F [address] [facility] Unit #: [id number] Loc: [place] [address] Phys: Bettye Mullins MD Acct: [id number] DisDate: Status: ADM IN PHONE #: [phone] Exam Date: 03/29/2019 1301 FAX #: Reason: prolonged antibx EXAMS: CPT: [id number] GUID CTRL ACC DEV 32347 Fluoro Time: DAP (Gy m2): Air Kerma (mGy): <Continued> Successful ultrasound and fluoroscopic guided right basilic PICC line placement. at 1325 Reported and signed by: Camacho Barboza M.D. CC: Theodore Gonzalez MD; Bettye Mullins MD; Adele oYrk MD PAGE 2 Signed Report Name:MARCELLE WEISS [facility] : 1970 Age/S: 49 / F [address] [address] Unit #: [id number] Loc: [place] [address] Phys: Bettye Mullins MD Acct: [id number] Dis Date: Status: ADM IN PHONE #: [phone] Exam Date: 03/29/2019 1301 FAX #: Reason: prolonged antibx EXAMS: CPT: [id number] FLUORO GUID CTRL ACC DEV 54243 Fluoro Time: DAP(Gy m2): Air Kerma (mGy): <Continued> Technologist: Ashlyn Maldonado, RT(R)(MR) Trnscb Date/Time: 03/29/2019 (2147) SomJH12 Orig Print D/T: S: 03/29/2019 (1253) PAGE 3 Signed ReportVANCOMYCIN [id number] 00:16:00 Test Item Value Reference Range Interpretation Comments VANCOMYCIN TROUGH (test code = 20.7 mcG/ML 10-20 H VANCT) BASIC METABOLIC [id number] 09:06:00 Test Item Value Reference Range Interpretation [...] CA) 8.6 MG/DL 8.5-10.1 N CBC W/AUTO [id number] 08:47:00 Test Item Value Reference Range Interpretation [...] CRITERIA MDIFF) Comment: postop- XR FLUOROSCOPY 0-60 [id number] 15:46:00 Name: MARCELLE WEISS [facility] : 1970 Age/S: 49 / F [address] [address] Unit #: [id number] Loc: [place] [address] Phys: Abilio Maldonado MD Acct: [id number] Dis Date: Status: CAN [facility] PHONE #: [phone] Exam Date: 03/27/2019 0940 FAX #: Reason: LEFT ANKLE I D WITH ANTIBIOTIC BEADS EXAMS: CPT: [id number] XR FLUOROSCOPY 0-60 MIN 66474 Fluoro Time: 4 SEC DAP (Gy m2): [...] PAGE 1 Signed Report Name: MARCELLE WEISS [facility] : 1970 Age/S: 49 / F [address] [address] Unit #: [id number] Loc: [place] [address] Phys: Abilio Maldonado MD Acct: [id number] Dis Date: Status: CAN [facility] PHONE #: [phone] Exam Date: 03/27/2019 0940 FAX #: Reason: LEFT ANKLE I D WITH ANTIBIOTIC BEADS EXAMS: CPT: [id number] XR FLUOROSCOPY 0-60 MIN 57511 Fluoro Time: 4 SEC DAP (Gy m2): Air Kerma (mGy): <Continued> Technologist: Lisa Machuca, RT(R) Trnscb Date/Time: 03/27/2019 (1540) [id number] Orig Print D/T: S: 03/27/2019 (4838) PAGE 2 Signed ReportUR HCG [id number] 06:57:00 Test Item Value Reference Range Interpretation Comments UR HCG QUAL (test code = HCGQLU) NEGATIVE NEGATIVE UA RFLX MICR CULT IF [id number] 06:54:00 Test Item Value Reference Range Interpretation [...] culture: Flank PainUA RFLX MICR CULT IF [id number] 06:54:00 Test Item Value Reference Range Interpretation [...] CLEAN CATCHIndication for culture: Flank PainBASIC METABOLIC [id number] 08:09:00 Test Item Value Reference Range Interpretation [...] CA) 8.9 MG/DL 8.5-10.1 N VITAMIN D 62-[id number] 08:09:00 Test Item Value Reference Range Interpretation Comments VITAMIN D 33.2 ng/mL 30.0-100.0 Vitamin D defic iency has 25-HYDROXY (test been define d by the code = VITD25) [facility] edicine and an Endocrine So [facility] practice guidel ine as alevel of serum 25-OH vitamin D less than 20 ng/mL (1,2).The Endocrine Society went on to further define vitamin Dinsufficiency as a level between 21 and 29 ng/mL (2).1. IOM (Ins titute of Medicine). 2010 . Dietary reference int akes for calcium and D. [place]: [employer] .2. Caitlin MF, Jerrell [place], Melida-Michael i ROLLINS, et al. Evaluatio n, treatment, and prevention of vitamin D deficiency: an Endocrine Society clinica l practice guideline. ALLY EM. 2010; 96(7):1911-30.P erformed At: [facility] [address] [place], [place] [id number] Abilio Rosales MD Ph:[phone] CBC W/AUTO [id number] 13:29:00 Test Item Value Reference Range Interpretation [...] code = NO DIFF/SCN CRITERIA MDIFF) SED [id number] 13:29:00 Test Item Value Reference Range Interpretation Comments SED RATE (test code = SEDW) 10 mm/hr 0-20 N URINALYSIS [id number] 13:12:00 Test Item Value Reference Range Interpretation [...] LEUU) Urine Specimen Type: Clean CatchC REACTIVE [id number] 12:47:00 Test Item Value Reference Range Interpretation Comments C REACTIVE PROTEIN (test code = 1.260 MG/DL 0.000-0.3 H CRP) BASIC METABOLIC [id number] 12:46:00 Test Item Value Reference Range Interpretation [...] CA) 8.9 MG/DL 8.5-10.1 N VITAMIN D 03-[id number] 12:46:00 Test Item Value Reference Range Interpretation Comments VITAMIN D 25-HYDROXY (test code = VITD25) PROTHROMBIN [id number] 12:33:00 Test Item Value Reference Range Interpretation Comments PT PATIENT (test code = PTP) 11.4 SECONDS 9.3-12.9 N INTERNATIONAL NORMAL RATIO 0.99 INR Unit 0.8-1.2 N (test code = INR) THROMBOPLASTIN TIME [id number] 12:33:00 Test Item Value Reference Range Interpretation Comments THROMBOPLASTIN TIME PARTIAL 29.0 SECONDS 26-35 N (test code = PTT) CBC W/AUTO [id number] 12:32:00 Test Item Value Reference Range Interpretation [...] code = NO DIFF/SCN CRITERIA MDIFF) SED [id number] 12:32:00 Test Item Value Reference Range Interpretation Comments SED RATE (test code = SEDW) mm/hr 0-20 - XR CHEST 1 [id number] 12:00:00 Name: MARCELLE WEISS [facility] : 1970 Age/S: 49 / F [address] [address] Unit #: [id number] Loc: [place] [address] Phys: Abilio Maldonado MD Acct: [id number] Dis Date: Status: PRE SDC PHONE #: [phone] Exam Date: 03/03/2019 1152 FAX #: Reason: PRE OP EXAMS: CPT: [id number] XR CHEST 1 V 70326 Fluoro Time: DAP (Gy m2): Air Kerma [...] PAGE 1 Signed Report Name: MARCELLE WEISS [facility] : 1970 Age/S: 49 / F [address] [address] Unit #: [id number] Loc: [place] [address] Phys: Abilio Maldonado MD Acct: [id number] Dis Date: Status: PRE SDC PHONE #: [phone] Exam Date: 03/03/2019 1152 FAX #: Reason: PRE OP EXAMS: CPT: [id number] XR CHEST 1 V 50987 Fluoro Time: DAP (Gy m2): Air Kerma (mGy): <Continued> Technologist: Kevin Herrera, RT(R)(CT); Lisa Machuca RT(R) Trnscb Date/Time: 03/03/2019 (1200) [id number] Orig Print D/T: S: 03/03/2019 (6115) PAGE 2 Signed Report
== END 2020-02-06 08:45 | disposition home or self-care (01) ==
LOC: ER 05:56
DX: R10.10 Upper abdominal pain, unspecified (principal); F31.9 Bipolar disorder, unspecified; Z85.528 Personal history of other malignant neoplasm of kidney; Z88.0 Allergy status to penicillin; Z88.5 Allergy status to narcotic agent; Z88.6 Allergy status to analgesic agent; Z88.8 Allergy status to other drugs, medicaments and biological substances; Z91.048 Other nonmedicinal substance allergy status
CPT/HCPCS: 93005; 85025; 80048; 36415; 80076; 83690; 74176; 96375; 96374; 99284; J2550; J2175 ×2; J7030

== ENCOUNTER 2020-07-05 14:17 | Emergency (ER) | payer OTHER ==
--- OUTSIDE RECORDS SUMMARY | 2020-07-05 14:22 | XMS REPORT | Continuity of Care Document ---
:1970 Author Organization [facility] t Address [address] [place] [address] Care Team Providers Name Role Phone Clause DPM, C Attending Clinician Doctor Unassigned, Name Attending Clinician Unavailable Lab, - Attending Clinician Unavailable Matias TREJO Admitting Clinician Payers Payer Name Policy Type Policy Number Effective Date Expiration Date S ource Problems This patient has no known problems. Allergies, Adverse Reactions, Alerts Allergy Allergy Status Severity Reaction(s) Onset Inactive Treating Comm ents Source Name Type Date Date Clinician fentanyl DA Active [place] [facility] 5[facility]27 [place] [facility] Iodinate DA Active SV 2018-05 [facility] d 05-03 Clear Contrast 00:00: Champagne Media 00 [facility] NSAIDS DA Active SV 2018-05 [facility] (Non-Remigio 05-03 Clear roidal 00:00: Champagne Anti-Inf 00 [facility] Penicill DA Active SV 2018-05 [facility] ins 05-03 Clear 00:00: Champagne 00 [facility] morphine DA Active SV 2018-05 [facility] 05-03 Clear 00:00: Champagne 00 [facility] aspirin DA Active U 2018-05 [facility] 05-03 Clear 00:00: Champagne 00 [facility] hydromor DA Active SV 2018-05 [facility] phone 05-03 Clear 00:00: Champagne [facility] shellfis FA Active SV 2018-05 [facility] h 05-03 Clear derived 00:00: Champagne [facility] No Known DA Active U 2008-0 [facility] Contrast 12-11 [place] Allergie 00:00: d [facility] No Known DA Active U 2008-0 [facility] Food 12-11 [place] Allergie 00:[facility]: [facility] No Known DA Active U 2008-0 [facility] Other - [place] Allergie 00:00: [facility] PENICILL DA Active U 2008-0 [facility] IN - [place] [facility] penicill DA Active U 2004-0 [facility] in G 09-05 [place] 00:00: [facility] Medications This patient has no known medications. Procedures This patient has no known procedures. Encounters Start End Encounter Admission Attending Care Care Encounter Source Date/Time Date/Time Type Type Clinicians Facility Department ID 2020-05-22 2020-05-22 [facility] RUSSEL Jurado 1.2.840.114 [id number] 07:34:00 15:25:00 Encounter Jigar Saeed [facility] 350.1.13.10 Clear .2.7.2.686 [place] [id number] [place] [address] ([facility]) 2020-05-22 2020-05-22 Orders Doctor VIPUL 1.2.840.114 [id number] 00:00:00 00:00:00 Only Unassigned, MARCUS 350.1.13.10 [place] [facility] 4.2.7.2.686 [id number] 2020-05-22 2020-05-22 Prep For VIPUL Jurado 1.2.840.114 [id number] 00:00:00 00:00:00 Surgery Jigar VELAZQUEZ 350.1.13.10 [facility] 42.7.2.686 [id number] 2020-05-22 2020-05-22 Prep For VIPUL Jur[place] 1.2.840.114 [id number] 00:00:00 00:00:00 Surgery Jigar RICHARDY 350.1.13.10 [facility] 42.7.2.686 [id number] 2020-05-21 2020-05-21 Hospital Clause, [facility] 1.2.840.114 [id number] 13:50:34 23:59:00 Encounter Jigar Saeed Health 350.1.13.10 Clear 4.2.7.2.686 [place] [id number] [facility] 807 ([facility]) 2020-05-21 2020-05-21 Education Professional Lab, [facility] - [facility] 1.2.840.114 [id number] 13:50:10 14:05:10 Visit Health 350.1.13.10 Clear 4.2.7.2.686 [place] [id number] [facility] 353 ([facility]) Results Test Description Test Time Test Comments Results Result Comments Source SURG 2020-03-14 16:03:00 Test Item Value Reference Range Interpretation Comme nts SURG RUN DATE: (test 03/14/20 [facility] PAGE 1 RUN TIME: 1603 code = Specim en Inquiry RUN USER: INTERFACE SURG) PATIENT: ABHISHEKMARCELLE LOC: STEPHIE Solorio #: [id number] AGE/SX: 50/F ROOM: RE03/13/20REG DR: Tyler Clemens MD : 71 BED: DIS: STATUS: DEP SDC TLOC: SPEC #: [id number] RECD: STATUS: LEILA MARSH #: [id number] RADHA: 03/13/[address]: Tyler Clemens MD ENTERED: 03/13/20 SP TYPE: SURG OTHR DR : Adele York MD ORDERED: SURG PATH LVL 08/03 COPIES TO: Tyler Clemens MD [address] [place], [place] [address] Adele York MD [address] [place] [address] HISTOLO GY: TISSUE ID BLK PCS MANOJ LEV PROCEDURE DISPOSITION ____ _ ___ ___ ___ SMALL INTESTINE A 1 2 GASTRIC ANTRUM B 1 2 STOMACH, NOS C 1 2 PROCEDURES: SURG PATH LVL 4 (03/13/20) TISSUES: A. SMALL INTESTINE, NOS - SMALL BOWEL BIOPSY B. GASTRIC ANTRUM - ANTRUM BIOPSY C. STOMACH, NOS - BODY BIOPSY CPT CODES CPT CODE(S): 82382A3 , , , , , , FINAL DIAGNOSIS A. Small intestine, biopsy: DUODENUM WITH UNREMARKABLE V ILLI B. Stomach, antrum, biopsy: ACUTE GASTRITIS WITH SURFACE ULCERATION NEGATIV E FOR INTESTINAL METAPLASIA, DYSPLASIA, OR MALIGNANCY NEGATIVE FOR HELICOBACTER PYLORI ORGANISM S C. Stomach, body, biopsy: CONTINUED ON NEXT PAGE RUN DATE: 03/14/20 [facility] - LAB PAGE 2 RUN TIME: 1603 Specimen Inquiry RUN USER: INTERFACE SPEC #: [facility]:[id number] PATIENT: MARCELLE WEISS #[id number] (Continued) -- FINAL DIAGNOSIS (Continued) MILD CHRONIC GASTRITIS NEGATIVE FOR INTESTINAL METAPLASIA, DYSPLASIA, OR MA LIGNANCY NEGATIVE FOR HELICOBACTER PYLORI ORGANISMS GROSS DESCRIPTION A. Small bow el biopsy. Received in formalin are three donahue tissue fragments, 0.1 - 0.2 cm, all as A. B. Antrum biopsy. Received in formalin is a donahue tissue fragment, 0.2 cm, all as B. C. Body biopsy. Received in formalin are two donahue tissue fragments, 0.2 cm each, all as C. ba/nr Grossing performed at [facility] Pathology, [address] [place] [address], [address], [place] [address] . Power Switchboard Operator: Nickolas Steel M.D. MICROSCOPIC DESCRIPTION A. Small bowel biopsy. Sec tions demonstrate duodenum with unremarkable villi. No evidence of villous blunting or increase d intraepithelial lymphocytes is seen. No features of a malabsorption syndrome are identified. B. Antrum biopsy. Section gastric mucosa with a reactive appearance and acute and chronic infl ammation. Surface ulceration is also identified. No etiology of the ulcer is identified. No dys plasia or malignancy is identified. No evidence of intestinal metaplasia or Helicobacter p ylori organisms is seen. C. Body biopsy. Sections demonstrate gastric mucosa with mild chr onic inflammation. No dysplasia or malignancy is identified. No evidence of intestinal metaplasia or Helicobacter py keara organisms is seen. Signed SIGNATURE ON FILE Raúl Espana 03/14/20 1603 END OF REPORT COVID 19 INHOUSE [id number] 13:44:00 Test Item Value Reference Range Interpretation Comments COVID 19 INHOUSE AG NEGATIVE Negative Per manu facturer, (test code = negative result s should [id number]) be treated aspr esumptive and, if inconsi stent with clinical signs andsymptoms or necessary for patient man agement, should betested with an alternative mol ecular assay. Negative resultsdo not preclude SA RS-CoV-2 infection and s hould not be usedas the s ole basis for patient man agement decisions. Neg ative results should be considered in t he context of apatient's r ecent exposures, hist ory, presence of cli nicalsigns and symptoms co nsistent with COVID-19. CBC W/AUTO [id number] 13:13:00 Test Item Value Reference Range Interpretation Comments WHITE BLOOD CELL (test code = 5.4 K/mm3 3.5-11.0 N WBC) RED BLOOD CELL (test code = 3.97 M/mm3 4.70-6.10 L RBC) HEMOGLOBIN (test code = HGB) 11.8 G/DL 10.4-14.9 N HEMATOCRIT (test code = HCT) 38.1 % 31.5-44.1 N MEAN CELL VOLUME (test code = 96.0 Fl 84.5-98.6 N MCV) MEAN CELL HGB (test code = MCH) 29.7 pg 27.0-34.2 N MEAN CELL HGB CONCETRATION 31.0 G/DL 31.5-34.0 L (test code = MCHC) RED CELL DISTRIBUTION WIDTH 14.2 SD 11.5-14.5 N (test code = RDW) PLATELET COUNT (test code = 173 K/mm3 150-450 N PLT) MEAN PLATELET VOLUME (test code 10.90 fL 7.0-10.5 H = MPV) NEUTROPHIL % (test code = NT%) 48.9 % 40-76 N IMMATURE GRANULOCYTE % (test 0.2 % 0.0-5.0 N code = IG%) LYMPHOCYTE % (test code = LY%) 40.5 % 20.5-51.1 N MONOCYTE % (test code = MO%) 7.6 % 1.7-9.3 N EOSINOPHIL % (test code = EO%) 2.2 % 0.0-6.0 N BASOPHIL % (test code = BA%) 0.6 % 0.0-2.0 N NUCLEATED RBC % (test code = 0.0 /100WBC% 0.0-1.0 N NRBC%) NEUTROPHIL # (test code = NT#) 2.7 K/mm3 1.8-7.6 N IMMATURE GRANULOCYTE # (test 0.01 x10 3/uL 0.00-0.03 N code = IG#) LYMPHOCYTE # (test code = LY#) 2.2 K/mm3 0.6-3.2 N MONOCYTE # (test code = MO#) 0.4 K/mm3 0.3-1.1 N EOSINOPHIL # (test code = EO#) 0.1 K/mm3 0.0-0.4 N BASOPHIL # (test code = BA#) 0.0 K/mm3 0.0-0.1 N NUCLEATED RBC # (test code = 0.0 K/mm3 0.0-0.1 N NRBC#) MANUAL DIFF REQUIRED (test code NO DIFF/SCN CRITERIA = MDIFF) Novel Coronavirus 2019 [id number] 21:08:00 Test Item Value Reference Range Interpretation Comments Novel Coronavirus 2019 Inhouse (test Negative Negative code = COVNONPUI) COMPREHENSIVE METABOLIC [id number] 09:36:00 Test Item Value Reference Range Interpretation [...] TOTAL (test code = ALKP) HCG SERUM [id number] 09:36:00 Test Item Value Reference Range Interpretation Comments HCG SERUM QUAL (test code = SERUM NEGATIVE NEGATIVE HCGQL) - XR CHEST 2 [id number] 09:35:00 FAX: Jigar Velasco [facility] [phone] [place]: St: PRE FAX: Adele Hernández MD [phone] Name: MARCELLE WEISS [facility] : 1970 Age/S: 49/F [address] [place] [address] Unit #: [id number] Loc: [place] [address] Phys: Jigar Jurado DPM Acct: [place] [id number] Dis Date: Status: PRE SDC PHONE #: [phone] Exam Date: 09/27/2019930 FAX #: [phone] Reason: PREOP- PAIN D/T ORTHOPEDIC IMPLANT EXAMS: CPT CODE: [id number] XR CHEST 2 V 47592 Two-view chest: HISTORY: Preoperative clearance for painful orthopedic implant. FINDINGS: Stable mild cardiomegaly compared with 05/07/2019. Development of areas of bibasilar subsegmental atelectasis. No pleural effusion or bony pathology IMPRESSION: Bibasilar s ubsegmental atelectasis SL: [id number] at 0935 Reported and signed by: Sammy Branham M.D. CC: Jigar Jurado DPM; Adele York MD Technologist: Diamond Castro, RT(R) Trnscrd Date/Time/By: 09/27/2019 (0907) : By: SomETG Orig Print D/T: S: 09/27/2019 (3558) PAGE 1 Signed ReportCOMPREHENSIVE METABOLIC [id number] 09:28:00 Test Item Value Reference Range Interpretation [...] IUnit/L 20-125 code = ALKP) HCG SERUM [id number] 09:28:00 Test Item Value Reference Range Interpretation Comments HCG SERUM QUAL (test code = SERUM NEGATIVE NEGATIVE HCGQL) CBC W/AUTO [id number] 09:21:00 Test Item Value Reference Range Interpretation [...] (test NO code = MDIFF) BASIC METABOLIC [id number] 09:50:00 Test Item Value Reference Range Interpretation [...] = CA) 9.5 MG/DL 8.5-10.1 N VANCOMYCIN [id number] 21:06:00 Test Item Value Reference Range Interpretation Comments VANCOMYCIN TROUGH (test code = 19.1 mcG/ML 10-20 N VANCT) GLUCOSE BEDSIDE [id number] 20:17:00 Test Item Value Reference Range Interpretation Comments GLUCOSE BEDSIDE TESTING (test code = 84 mg/dL 70-110 N GLUBED) - NM BONE 3 [id number] 19:51:00 FAX: Dwight Parrish MD [place]: PM St: ADM FAX: Bettye Alves MD [phone] Name: ABHISHEKMARCELLE Adryan [facility] : 1970 Age/S: 49/F [address] Unit #: [id number] Loc: [address] [place] [address] Phys: Bettye Mullins MD Acct: [id number] Dis Date: Status: ADM IN PHONE #: [phone] Exam Date: 05/09/2019 1539 FAX #: Reason: OM ANDHARDWARE INFECTION LEFT ANKLE EXAMS: CPT: [id number] NM BONE 3 PHASE 23610 EXAM: - NM BONE 3 PHASE HISTORY: [...] the left lateral malleolus is nonspecific. at 1951 Reported and signed by: Surinder Nichols MD CC: Dwight Calloway MD; Bettye Mullins MD Technologist: Lynn Rios, [facility] Transcribed Date/Time/By: 05/09/2019 (1950) :TobyR.[email or web address] Orig Print D/T: S: 05/09/2019 (1953) PAGE [...] <2 ng/mL are obtai emily. BASIC METABOLIC [id number] 14:15:00 Test Item Value Reference Range Interpretation [...] <2 ng/mL are obtai emily. CBC W/AUTO [id number] 07:54:00 Test Item Value Reference Range Interpretation [...] code = NO DIFF/SCN CRITERIA MDIFF) SED [id number] 07:54:00 Test Item Value Reference Range Interpretation Comments SED RATE (test code = SEDW) 19 mm/hr 0-20 N BASIC METABOLIC [id number] 06:17:00 Test Item Value Reference Range Interpretation [...] (test code = ng/ml PROCAL) CBC W/AUTO [id number] 06:08:00 Test Item Value Reference Range Interpretation [...] code = NO DIFF/SCN CRITERIA MDIFF) SED [id number] 06:08:00 Test Item Value Reference Range Interpretation Comments SED RATE (test code = SEDW) mm/hr 0-20 [id number] 02:57:00 Test Item Value Reference Range Interpretation [...] may basilio yby method. Completed by Nursing: [id number] 23:57:00 Test Item Value Reference Range Interpretation [...] may basilio yby method. Completed by Nursing: OSVALDO PIERSONX MICR CULT IF [id number] 18:41:00 Test Item Value Reference Range Interpretation [...] for culture: Dysuria/FrequencyUA RFLX MICR CULT IF [id number] 18:41:00 Test Item Value Reference Range Interpretation [...] CLEAN CATCHIndication for culture: Dysuria/Frequency COMPREHENSIVE METABOLIC [id number] 18:23:00 Test Item Value Reference Range Interpretation [...] TOTAL (test code = ALKP) CBC W/AUTO [id number] 18:03:00 Test Item Value Reference Range Interpretation [...] = NO DIFF/SCN CRITERIA MDIFF) LACTIC ACID [id number] 17:58:00 Test Item Value Reference Range Interpretation Comments LACTIC ACID POC (test code = 1.93 MMOL/L 0.90-1.70 H LACTP) - XR ANKLE 3+V [id number] 17:50:00 Name: MARCELLE WEISS [facility] : 1970 Age/S: 49 / F [address] Unit #: [id number] Loc: [place] [address] Phys: Aletha Valerio MD Acct: [id number] Dis Date: Status: REG ER PHONE #: [phone] Exam Date: 05/07/2019 1742 FAX #: Reason: ankle EXAMS: CPT: [id number] XR ANKLE 3+[place] [address] Fluoro Time: DAP (Gy m2): Air Kerma [...] Lisette HARGROVE PAGE 1 Signed Report Name: ABHISHEKMAYITOBREANA Cornelius [facility] : 1970 Age/S: 49 / F [address] Unit #: [id number] Loc: [place] [address] Phys: Aletha Valerio MD Acct: [id number] Dis Date: Status: REG ER PHONE #: [phone] Exam Date: 05/07/2019 1740 FAX #: Reason:ankle EXAMS: CPT: [id number] XR ANKLE 3+[place] [address] Fluoro Time: DAP (Gy m2): Air Kerma (mGy): <Continued> Technologist: Miguel Enamorado RT(R)(MR) Trndcb Date/Time: 05/07/2019 (1749) 16 Orig Print D/T: S: 05/07/2019 (175) PAGE 2 Signed Report- XR CHEST 1 [id number] 17:40:00 Name: ABHISHEKMARCELLE Adryan [facility] : 1970 Age/S: 49 / F [address] Unit #: [id number] Loc: [place] [address] Phys: Aletha Valerio MD Acct: [id number] Dis Date: Status: REG ER PHONE #: [phone] Exam Date: 05/07/2019 1710 FAX #: Reason: infection EXAMS: CPT: [id number] XR CHEST 1 V 67033 Fluoro Time: DAP (Gy m2): Air Kerma [...] PAGE 1 Signed Report Name: MARCELLE WEISS [facility] : 1970 Age/S: 49 / F [address] Unit #: [id number] Loc: [place] [address] Phys:Aletha Valerio MD Acct: [id number] Dis Date: Status: REG ER PHONE #: [phone] Exam Date: 05/07/2019 1710 FAX #: Reason: infection EXAMS: CPT: [id number] XR CHEST1 V 93721 Fluoro Time: DAP (Gy m2): Air Kerma (mGy): <Continued> Technologist: Miguel Enamorado RT(Coral)(MR) Trndcb Date/Time: 05/07/2019 (1740) SomMD16 Orig Print D/T: S: 05/07/2019 (3743) PAGE 2 Signed ReportPROCALCITONIN (PCT)2019-04-27 03:09:00 Test [...] concentrations <2 ng/mL are obtai emily. SED [id number] 13:10:00 Test Item Value Reference Range Interpretation Comments SED RATE (test code = SEDW) 30 mm/hr 0-20 H [id number] 02:18:00 Test Item Value Reference Range Interpretation [...] may basilio yby method. Completed by Nursing: [id number] 23:37:00 Test Item Value Reference Range Interpretation [...] yby method. Completed by Nursing: NOCHEMISTRY 8 [id number] 22:03:00 Test Item Value Reference Range Interpretation [...] 58-135 N code = GFRBED) CHEMISTRY 8 [id number] 22:03:00 Test Item Value Reference Range Interpretation [...] code = GFRBED) - CT CHEST W/O [id number] 21:11:00 Name: MARCELLE WEISS [facility] : 1970 Age/S: 49 / F [address] Unit #: [id number] Loc: [place] [address] Phys: Uday Maya MD Acct: [id number] Dis Date: Status: ADM IN PHONE #: [phone] Exam Date: 04/25/20192042 FAX #: Reason: lung mass EXAMS: CPT: [id number] CT CHEST W/O CONTRAST 47412 Exam: CT thorax without contrast. Location: H [...] hiatal hernia. 3. Otherwise unremarkable exam. at 2111 Reported and signed by: Montez Lopez M.D. PAGE 1 Signed Report (CONTINUED) Name: MARCLELE WEISS [facility] : 1970 Age/S: 49 / F [address] Unit #: [id number] Loc: [place] [address] Phys: Uday Maya MD Acct: [id number] Dis Date: Status: ADM IN PHONE #: [phone] Exam Date: 04/25/20192042 FAX #: Reason: lung mass EXAMS: CPT: [id number] CT CHEST W/O CONTRAST 22485 <Continued> CC: Uday Maya MD; Aletha Valerio [...] TOTAL (test code = ALKP) CBC W/AUTO [id number] 20:01:00 Test Item Value Reference Range Interpretation [...] = NO DIFF/SCN CRITERIA MDIFF) TROPONIN I [id number] 19:58:00 Test Item Value Reference Range Interpretation Comments TROPONIN I RAPID 0.00 ng/mL 0.00-0.08 N - The use o f serial (test code = sampling and te sting TROPIRAP) protocol is a recommended pra ctice- An elevated tro ponin level alone is often not sufficient for diagnosis of my ocardial infarction. LACTIC ACID [id number] 19:58:00 Test Item Value Reference Range Interpretation Comments LACTIC ACID POC (test code = 1.43 MMOL/L 0.90-1.70 N LACTP) - XR CHEST 1 [id number] 19:42:00 Name: ABHISHEKMARCELLE [facility] : 1970 Age/S: 49 / F [address] Unit #: [id number] Loc: [place] [address] Phys: Aletha Valerio MD Acct: [id number] Dis Date: Status: REG ER PHONE #: [phone] Exam Date: 04/25/20191919 FAX #: Reason: Suspected Sepsis EXAMS: CPT: [id number] XR CHEST 1 V 50343 Fluoro Time: DAP (Gy m2): Air Kerma [...] of the chest, as clinically indicated. at 1942 Reported and signed by: Aamir Sherman M.D. CC: Aletha Valerio MD; Abilio Maldonado MD; Lisette Ortiz PAGE 1 Signed Report Name: MARCELLE WEISS [facility] : 1970 Age/S: 49 / F [address] Unit #: [id number] Loc: [place] [address] Phys: Aletha Valerio MD Acct: [id number] Dis Date: Status: REG ER PHONE #: [phone] Exam Date: 04/25/20191919 FAX #: Reason: Suspected Sepsis E XAMS: CPT: [id number] XR CHEST 1 V 72944 Fluoro Time: DAP (Gy m2): Air Kerma (mGy): <Continued> Technologist: David Cloe RT(R)(CT) TrnscbDate/Time: 04/25/2019 (1941) [email or web address] Orig Print D/T: S: 04/25/2019 (1945) PAGE 2 Signed ReportBASIC METABOLIC [id number] 06:51:00 Test Item Value Reference Range Interpretation [...] CA) 8.8 MG/DL 8.5-10.1 N CBC W/AUTO [id number] 06:27:00 Test Item Value Reference Range Interpretation [...] = NO DIFF/SCN CRITERIA MDIFF) BASIC METABOLIC [id number] 18:56:00 Test Item Value Reference Range Interpretation [...] CA) 9.0 MG/DL 8.5-10.1 N BASIC METABOLIC [id number] 18:53:00 Test Item Value Reference Range Interpretation [...] CA) 9.0 MG/DL 8.5-10.1 N CBC W/AUTO [id number] 18:52:00 Test Item Value Reference Range Interpretation [...] = NO DIFF/SCN CRITERIA MDIFF) CBC W/AUTO [id number] 07:16:00 Test Item Value Reference Range Interpretation [...] = NO DIFF/SCN CRITERIA MDIFF) BASIC METABOLIC [id number] 07:11:00 Test Item Value Reference Range Interpretation [...] CA) 8.7 MG/DL 8.5-10.1 N BASIC METABOLIC [id number] 11:01:00 Test Item Value Reference Range Interpretation [...] CA) 8.6 MG/DL 8.5-10.1 N CBC W/AUTO [id number] 10:24:00 Test Item Value Reference Range Interpretation [...] = NO DIFF/SCN CRITERIA MDIFF) BASIC METABOLIC [id number] 05:56:00 Test Item Value Reference Range Interpretation [...] CA) 8.8 MG/DL 8.5-10.1 N CBC W/AUTO [id number] 05:51:00 Test Item Value Reference Range Interpretation [...] = NO DIFF/SCN CRITERIA MDIFF) CBC W/AUTO [id number] 06:08:00 Test Item Value Reference Range Interpretation [...] = NO DIFF/SCN CRITERIA MDIFF) BASIC METABOLIC [id number] 05:55:00 Test Item Value Reference Range Interpretation [...] = CA) 9.0 MG/DL 8.5-10.1 N VANCOMYCIN [id number] 14:35:00 Test Item Value Reference Range Interpretation Comments VANCOMYCIN TROUGH (test code = 17.4 mcG/ML 10-20 N VANCT) BASIC METABOLIC [id number] 06:49:00 Test Item Value Reference Range Interpretation [...] CA) 8.5 MG/DL 8.5-10.1 N CBC W/AUTO [id number] 06:44:00 Test Item Value Reference Range Interpretation [...] NO DIFF/SCN CRITERIA MDIFF) - US GUIDANCE [facility] [id number] 13:25:00 Name: MARCELLE WEISS [facility] : 1970 Age/S: 49 / F [address] [facility] Unit #: [id number] Loc: [place] [address] Phys: Theodore Gonzalez MD Acct: [id number] Dis Date: Status: ADM IN PHONE #: [phone] Exam Date: 03/29/2019 1550 FAX #: Reason: PICC LINE PLACEMENT EXAMS: CPT: [id number] US GUIDANCE VAS ACCESS 94188 Examination: PICC line insertion Location code: S17 Comparison: None tanning drum operator: Tamra Core Maker Helper: None Sedation: None Anesthesia: 1% lidocaine subcutaneous [...] 1 Signed Report (CONTINUED) Name: MARCELLE WEISS : 1970 Age/S: 49 /F [address] [facility] [place] Unit #: [id number] Loc: [place] [address] Phys: Theodore Gonzalez MD Acct: [id number] Dis Date: Status: ADM IN PHONE #: [phone] Exam Date: 03/29/2019 1480 FAX #: Reason: PICC LINE PLACEMENT EXAMS: CPT: [id number] US GUIDANCE VASC ACCESS 96640 <Continued> Impression: Successful ultrasound and fluoroscopic guided right basilic PICC line placement. at 1325 Reported and signed by: Camacho Barboza M.D. CC: Theodore Gonzalez MD; Adele York MD Technologist: Esthela Krishnamurthy RT(R),DAPHNIE(AB) Trnscb Date/Time: 03/29/2019 (7229) [id number] PAGE 2 Signed Report Name: MARCELLE WEISS : 1970 Age/S: 49 / F [address] Unit #: [id number] Loc: [place] [address] Phys: Theodore Gonzalez MD Acct: [id number] Dis Date: Status: ADM IN PHONE #: [phone] Exam Date: 03/29/2019 1550 FAX #: Reason: PICC LINE PLACEMENT EXAMS: CPT: [id number] US GUIDANCE VASC ACCESS 07538 <Continued> Orig Print D/T: S: 03/29/2019 (2390) Probe: PAGE 3 Signed Report- FLUORO GUID CTRL ACC [id number] 13:25:00 Name: MARCELLE WEISS [place] : 1970 Age/S: 49 / F [address] [facility] Unit #: [id number] Loc: [place] [address] Phys: Bettye Mullins MD Acct: [id number] Dis Date: Status: ADM IN PHONE #: [phone] Exam Date: 03/29/2019 1301 FAX #: Reason: prolonged antibx EXAMS: CPT: [id number] FLUORO GUID CTRL ACC DEV 32464 Fluoro Time: DAP (Gy m2): Air Kerma (mGy): Examination: PICC line insertion Location code: S17 Comparison: None tanning drum operator: Tamra Core Maker Helper: None Sedation: None Anesthesia: 1% lidocaine subcutaneous [...] 1 Signed Report (CONTINUED) Name: MARCELLE WEISS [facility] : 1970 Age/S: 49 / F [address] [place] [address] Unit #: [id number] Loc: [place] [address] Phys: Bettye Mullins MD Acct: [id number] DisDate: Status: ADM IN PHONE #: [phone] Exam Date: 03/29/2019 1301 FAX #: Reason: prolonged antibx EXAMS: CPT: [id number] GUID CTRL ACC DEV 93492 Fluoro Time: DAP (Gy m2): Air Kerma (mGy): <Continued> Successful ultrasound and fluoroscopic guided right basilic PICC line placement. at 1325 Reported and signed by: Camacho Barboza M.D. CC: Theodore Gonzalez MD; Bettye Mullins MD; Adele York MD PAGE 2 Signed Report Name:MARCELLE WEISS [facility] : 1970 Age/S: 49 / F [address] [place] [address] Unit #: [id number] Loc: [place] [address] Phys: Bettye Mullins MD Acct: [id number] Dis Date: Status: ADM IN PHONE #: [phone] Exam Date: 03/29/2019 1301 FAX #: Reason: prolonged antibx EXAMS: CPT: [id number] FLUORO GUID CTRL ACC DEV [id number] Fluoro Time: DAP(Gy m2): Air Kerma (mGy): <Continued> Technologist: RT Geovany(Coral)(MR) Trnscb Date/Time: 03/29/2019 (1325) [id number] Orig Print D/T: S: 03/29/2019 (7636) PAGE 3 Signed ReportVANCOMYCIN [id number] 00:16:00 Test Item Value Reference Range Interpretation Comments VANCOMYCIN TROUGH (test code = 20.7 mcG/ML 10-20 H VANCT) BASIC METABOLIC [id number] 09:06:00 Test Item Value Reference Range Interpretation [...] CA) 8.6 MG/DL 8.5-10.1 N CBC W/AUTO [id number] 08:47:00 Test Item Value Reference Range Interpretation [...] CRITERIA MDIFF) Comment: postop- XR FLUOROSCOPY 0-60 [id number] 15:46:00 Name: ABHISHEKMARCELLE [facility] : 1970 Age/S: 49 / F [address] Unit #: [id number] Loc: [place] [address] Phys: Abilio Maldonado MD Acct: [id number] Dis Date: Status: CAN [facility] PHONE #: [phone] Exam Date: 03/27/2019 0940 FAX #: Reason: LEFT ANKLE I D WITH ANTIBIOTIC BEADS EXAMS: CPT: [id number] XR FLUOROSCOPY 0-60 MIN 74543 Fluoro Time: 4 SEC DAP (Gy m2): Air Kerma (mGy): Examination: Operative fluoroscopy Location code: S17 Comparison: None Discussion: Clinical history is remarkable for left ankle IND, antibody beads. 4.4 seconds fluoroscopic time is utilized. Antibiotic beads are placed along the fibula. Surgical screws are present through the medial malleolus. Impression: Please refer to the operative report. at 1546 Reported and signed by: Camacho Barboza M.D. CC: Abilio Maldonado MD PAGE 1 Signed Report Name: MARCELLE [place]ISSland : 1970 Age/S: 49 / F [id number] Unit #: [id number] Loc: [place] [address] Phys: Abilio Maldonado MD Acct: [id number] Dis Date: Status: CAN [facility] PHONE #: [phone] Exam Date: 03/27/2019 0940 FAX #: Reason: LEFT ANKLE I D WITH ANTIBIOTIC BEADS EXAMS: CPT: [id number] XR FLUOROSCOPY 0-60 MIN 38291 Fluoro Time: 4 SEC DAP (Gy m2): Air Kerma (mGy): <Continued> Technologist: Lisa Machuca, RT(R) Trnscb Date/Time: 03/27/2019 (1546) [id number] Orig Print D/T: S: 03/27/2019 (4648) PAGE 2 Signed ReportUR HCG [id number] 06:57:00 Test Item Value Reference Range Interpretation Comments UR HCG QUAL (test code = HCGQLU) NEGATIVE NEGATIVE UA RFLX MICR CULT IF [id number] 06:54:00 Test Item Value Reference Range Interpretation [...] culture: Flank PainUA RFLX MICR CULT IF [id number] 06:54:00 Test Item Value Reference Range Interpretation [...] CLEAN CATCHIndication for culture: Flank PainBASIC METABOLIC [id number] 08:09:00 Test Item Value Reference Range Interpretation [...] CA) 8.9 MG/DL 8.5-10.1 N VITAMIN D [id number] 08:09:00 Test Item Value Reference Range Interpretation Comments VITAMIN D 33.2 ng/mL 30.0-100.0 Vitamin D defic iency has 25-HYDROXY (test been define d by the code = VITD25) [place] [employer] and an Endocrine So ciety practice guidel ine as alevel of serum 25-OH vitamin D less than 20 ng/mL (1,2).The Endocrine Society went on to further define vitamin Dinsufficiency as a level between 21 and 29 ng/mL (2).1. IOM (Ins titute of Medicine). 2010 . Dietary reference int akes for calcium and D. [place]: [employer] .2. Caitlin MF, [place]rell [place], [place] i ROLLINS, et al. Evaluatio n, treatment, and prevention of vitamin D deficiency: an Endocrine Society clinica l practice guideline. ALLY EM. 2010; 96(4):1911-30.P erformed At: [facility] [id number] [place], [place] [id number] Abilio Rosales MD Ph:[phone] CBC W/AUTO [id number] 13:29:00 Test Item Value Reference Range Interpretation [...] code = NO DIFF/SCN CRITERIA MDIFF) SED [id number] 13:29:00 Test Item Value Reference Range Interpretation Comments SED RATE (test code = SEDW) 10 mm/hr 0-20 N URINALYSIS [id number] 13:12:00 Test Item Value Reference Range Interpretation [...] LEUU) Urine Specimen Type: Clean CatchC REACTIVE [id number] 12:47:00 Test Item Value Reference Range Interpretation Comments C REACTIVE PROTEIN (test code = 1.260 MG/DL 0.000-0.3 H CRP) BASIC METABOLIC [id number] 12:46:00 Test Item Value Reference Range Interpretation [...] CA) 8.9 MG/DL 8.5-10.1 N VITAMIN D [id number] 12:46:00 Test Item Value Reference Range Interpretation Comments VITAMIN D 25-HYDROXY (test code = VITD25) PROTHROMBIN [id number] 12:33:00 Test Item Value Reference Range Interpretation Comments PT PATIENT (test code = PTP) 11.4 SECONDS 9.3-12.9 N INTERNATIONAL NORMAL RATIO 0.99 INR Unit 0.8-1.2 N (test code = INR) THROMBOPLASTIN TIME [id number] 12:33:00 Test Item Value Reference Range Interpretation Comments THROMBOPLASTIN TIME PARTIAL 29.0 SECONDS 26-35 N (test code = PTT) CBC W/AUTO [id number] 12:32:00 Test Item Value Reference Range Interpretation [...] code = NO DIFF/SCN CRITERIA MDIFF) SED [id number] 12:32:00 Test Item Value Reference Range Interpretation Comments SED RATE (test code = SEDW) mm/hr 0-20 - XR CHEST 1 [id number] 12:00:00 Name: MARCELLE WEISS Adryan [facility] : 1970 Age/S: 49 / F [id number] Unit #: [id number] Loc: [place] [address] Phys: Abilio Maldonado MD Acct: [id number] Dis Date: Status: PRE SDC PHONE #: [phone] Exam Date: 03/03/2019 1152 FAX #: Reason: PRE OP EXAMS: CPT: [id number] XR CHEST 1 V 56741 Fluoro Time: DAP (Gy m2): Air Kerma [...] PAGE 1 Signed Report Name: MARCELLE WEISS [facility] : 1970 Age/S: 49 / F [address] Unit #: [id number] Loc: [place] [address] Phys: Abilio Maldonado MD Acct: [id number] Dis Date: Status: PRE [facility] PHONE #: [phone] Exam Date: 03/03/2019 1152 FAX #: Reason: PRE OP EXAMS: CPT: [id number] XR CHEST 1 V 72535 Fluoro Time: DAP (Gy m2): Air Kerma (mGy): <Continued> Technologist: Kevin Herrera, RT(R)(CT); Lisa Machuca RT(R) Trndcb Date/Time: 03/03/2019 (1200) [id number] Orig Print D/T: S: 03/03/2019 (1206) PAGE 2 Signed Report
[2020-07-05] MEDS ORDERED: HYDROCODONE/APAP 10/325 TAB ONE (15:07)
--- NOTE | 2020-07-05 15:20 | RAD REPORT ---
EXAM DESCRIPTION: RADTib Fib Left07/05/2020 3:12 pm CLINICAL HISTORY: Left leg pain FINDINGS: Plate and screws fuse the right ankle. Bones are osteoporotic. Soft tissue swelling is present. No acute fracture or dislocation seen. Portion of the distal fibula has been resected. No bony destructive lesion noted.
[2020-07-05] MEDS ORDERED: MEPERIDINE HCL 25 MG/ML SYR ONE (15:42)
--- NOTE | 2020-07-05 15:59 | RAD REPORT ---
EXAM DESCRIPTION: USExtremity Venous Uni Ltd07/05/2020 3:51 pm CLINICAL HISTORY: left leg pain COMPARISON: None. FINDINGS: Left common femoral, superficial femoral, popliteal and posterior tibial veins are compre ssible and demonstrate augmentation. Doppler demonstrates good flow. IMPRESSION: No evidence of deep venous thrombosis involving the left lower extremity.
--- NOTE | 2020-07-05 17:10 | EDPHYS ---
Physician Documentation [facility] Name: Oleg Rosenberg Age: 50 yrs Sex: Female : 1970 Arrival Date: 07/05/2020 Time: 14:31 Bed 25 Private MD: ED Physician Jones Whitney HPI: 07/05 14:50 This 50 yrs old Female presents to ER via EMS with complaints of Left Ankle cp and Lower Leg Pain. 14:50 The patient presents with pain. The complaints affect the left ankle and left leg. cp 14:50 Patient reports having left ankle surgery with bone graft and hardware placement cp performed by DR Jurado in [place] on 05-22-2020. Patient concerned surgical site may be infected and reports increased pain. Finished 10 day course of clindamycin 2 days ago and reports had f/u with DR Jurado on 06-28-2020. RN RADIATION: 17:36 LMP N/A - Post-menopause zb Historical: - Allergies: 14:36 Aspirin; zb 14:36 Dilaudid; zb 14:36 Iodinated Contrast Media - IV Dye; zb 14:36 Iodine; zb 14:36 Morphine; zb 14:36 Mucinex; zb 14:36 NSAIDS; zb 14:36 PENICILLINS; zb 14:36 Zofran; zb - Home Meds: 14:36 Adderall XR 30 mg Oral cp24 twice a day [Active]; Ambien 10 mg Oral tab qhs prn for zb Sleep-Onset Insomnia [Active]; Breo Ellipta inhalation twice a day [Active]; Cogentin Oral 1 mg three times a day [Active]; losartan 25 mg Oral tab 1 tab once daily [Active]; levalbuterol tartrate inhalation every 6 hours [Active]; tizanidine 4 mg Oral cap twice a day [Active]; Proventil Inhl every 6 hours [Active]; trazodone 100 mg Oral tab nightly [Active]; Lyrica 150 mg Oral 2 times per day [Active]; Valium 5 mg Oral tab 1 tab 2 times per day [Active]; Vraylar 3 mg Oral cap 1 cap once daily [Active]; Equetro 200 mg Oral CM12 three times a day [Active]; - PMHx: 14:36 Asthma; Bipolar disorder; Bronchitis; COPD; Depression; kidney cancer; zb - PSHx: 14:37 LEFT KIDNEY REMOVED; Hysterectomy; zb - Immunization history:: Adult Immunizations up to date. - Social history:: Smoking status: Patient/guardian denies using tobacco, the patient reports quitting approximately 1 years ago. ROS: 15:00 Constitutional: Negative for body aches, chills, fever. cp 15:00 Cardiovascular: Negative for chest pain. cp 15:00 Respiratory: Negative for cough, shortness of breath. 15:00 Abdomen/GI: Negative for abdominal pain. 15:00 MS/extremity: Positive for pain, of the left leg and left ankle, Negative for paresthesias. 15:00 All other systems are negative. Exam: 15:05 Constitutional: The patient appears in no acute distress, alert, awake, cp non-diaphoretic, non-toxic, well developed, well nourished, obese. 15:05 Head/Face: Normocephalic, atraumatic. cp 15:05 Chest/axilla: Inspection: normal. 15:05 Cardiovascular: Rate: normal, Rhythm: regular, Edema: is not appreciated, JVD: is not appreciated. 15:05 Respiratory: the patient does not display signs of respiratory distress, Respirations: normal, no use of accessory muscles, no retractions, labored breathing, is not present. 15:05 Back: pain, is absent. 15:05 Musculoskeletal/extremity: Extremities: grossly normal except: noted in the left ankle and left leg: pain, tenderness, mild swelling, Pulses: noted to be 2+ in the left dorsalis pedis artery, the left foot and left ankle Sensation intact. DVT Exam: no appreciated bluish discoloration, no erythema, no increased warmth. 15:05 Skin: left lateral ankle surgical scar appears with mild dehiscence, no drainage from cp wound and minimal erythema. Vital Signs: 14:31 BP 116 / 60; Pulse 60; Resp 20; Temp 98.1; Pulse Ox 95% on R/A; Weight 163.29 kg; zb Height 5 ft. 6 in. (167.64 cm); Pain 10/10; 15:30 BP 117 / 77; Pulse 63; Resp 20; Pulse Ox 94% 2 lpm ; zb 16:30 BP 117 / 82; Pulse 67; Resp 18; Pulse Ox 95% 2 lpm ; zb 17:30 BP 118 / 83; Pulse 63; Resp 16; Pulse Ox 92% on R/A; zb 14:31 Body Mass Index 58.10 (163.29 kg, 167.64 cm) zb MDM: 14:44 Patient medically screened. cp 17:00 Differential diagnosis: infected surgical wound, post surgical pain, DVT, less likely cp compartment syndrome. 17:03 ED course: Review of [place] prescription monitor website shows narcotic score of 701, cp sedative score 741, and overdose risk score 700. Patient received #84 of tylenol #4 on 06-28-2020. 17:05 ED course: Attempt to contact DR Jurado \T\[phone] to discuss condition of surgical wound. cp left message on voicemail. 17:08 Data reviewed: vital signs, nurses notes, radiologic studies, plain films, ultrasound, cp and as a result, I will discharge patient. 17:08 Counseling: I had a detailed discussion with the patient and/or guardian regarding: the cp historical points, exam findings, and any diagnostic results supporting the discharge/admit diagnosis, radiology results, the need for outpatient follow up, DR Jurado, to return to the emergency department if symptoms worsen or persist or if there are any questions or concerns that arise at home. Response to treatment: Pain improved. Exam of wound negative for gross infection at this time. Patient prescribed pain meds on 06-28-2020. Will discharge to home for continued monitoring. 07/05 14:42 Order name: US Extremity Venous Unilateral Ltd; Complete Time: 16:14 cp 07/05 16:14 Interpretation: Report reviewed. cp 07/05 14:42 Order name: XRAY Tib Fib LEFT; Complete Time: 15:33 cp 07/05 16:14 Interpretation: Report reviewed. cp Administered Medications: 14:51 Drug: HYDROcodone-acetaminophen 10 mg-325 mg 1 tabs {Note: RASS 0.} Route: PO; zb 16:33 Follow up: Response: No adverse reaction; RASS: Alert and Calm (0) zb 15:25 Drug: Demerol 25 mg {Note: RASS 0.} Route: IM; Site: left deltoid; zb 16:33 Follow up: Response: No adverse reaction; RASS: Alert and Calm (0) zb Disposition: 17:45 Chart complete. cp 07/06 06:46 Co-signature as Attending Physician, Jones Whitney MD I agree with the assessment and kdr plan of care. Disposition: 07/05/20 17:09 Discharged to Home. Impression: Pain in left lower leg. - Condition is Stable. - Discharge Instructions: Musculoskeletal Pain. - Prescriptions for Doxycycline Hyclate 100 mg Oral Tablet - take 1 tablet by ORAL route every 12 hours; 20 tablet. - Medication Reconciliation Form, Thank You Letter, Antibiotic Education, Prescription Opioid Use, Work release form form. - Follow up: Private Physician; When: 2 - 3 days; Reason: Wound Recheck. - Problem is an ongoing problem. - Symptoms have improved. Signatures: Dispatcher [employer] EDOK Jones Whitney MD MD kdr Abhi Adams PA PA cp Brown, Zipporah RN RN zb Corrections: (The following items were deleted from the chart) 07/05 17:38 17:09 07/05/2020 17:09 Discharged to Home. Impression: Pain in left lower leg. zb Condition is Stable. Forms are Medication Reconciliation Form, Thank You Letter, Antibiotic Education, Prescription Opioid Use. Follow up: Private Physician; When: 2 - 3 days; Reason: Wound Recheck. Problem is an ongoing problem. Symptoms have improved. cp 07/06 14:56 07/05 17:00 Differential diagnosis: infected surgical wound, post surgical pain cp cp
--- NOTE | 2020-07-05 17:10 | ER ---
Nurse's Notes [facility] Name: Oleg Rosenberg Age: 50 yrs Sex: Female : 1970 Arrival Date: 07/05/2020 Time: 14:31 Bed 25 Private MD: Diagnosis: Pain in left lower leg Presentation: 07/05 14:31 Chief complaint: Patient states: Pt has left ankle surgery on 05/22 at [facility] in [place]. zb Some stable has been separtated since. pain states foot is red and painful since last week. leg is NWB. Patient completed her clindamycin yesterday. pt states she is a little nauseous but denies fever, chill, or vomiting. Coronavirus screen: At this time, the client does not indicate any symptoms associated with coronavirus-19. Ebola Screen: No symptoms or risks identified at this time. Initial Sepsis Screen: Does the patient meet any 2 criteria? No. Patient's initial sepsis screen is negative. Does the patient have a suspected source of infection? No. Patient's initial sepsis screen is negative. Risk Assessment: Do you want to hurt yourself or someone else? Patient reports no desire to harm self or others. Onset of symptoms was July 02, 2019. 14:31 Acuity: AAYUSH 3 zb 14:31 Method Of Arrival: EMS: [facility] zb Triage Assessment: 14:30 General: Appears in no apparent distress. uncomfortable, Behavior is cooperative, zb anxious. Pain: Complains of pain in left lateral ankle, left calf, left Achilles, left heel, anterior aspect of left ankle and dorsum of left foot Pain does not radiate. Pain currently is 10 out of 10 on a pain scale. Quality of pain is described as aching, sharp, tender, throbbing, Pain began "a week ago" Is continuous. EENT: No signs and/or symptoms were reported regarding the EENT system. Neuro: Level of Consciousness is awake, alert, obeys commands, Oriented to person, place, time, situation. Cardiovascular: Heart tones S1 S2 present Capillary refill < 3 seconds Patient's skin is warm and dry. Respiratory: Airway is patent Respiratory effort is even, unlabored, Respiratory pattern is regular, symmetrical. GI: Abdomen is round obese, Bowel sounds present X 4 quads. Abd is soft and non tender X 4 quads. : No signs and/or symptoms were reported regarding the genitourinary system. Derm: Skin is intact, is healthy with good turgor, Skin is dry, Skin is normal, Skin temperature is warm Wound noted Other: L lateral ankle wound in healing stage. no redness not swelling noted at this time. some jose a appear to have some separation. no odor present or discharge. Musculoskeletal: Range of motion: limited in left ankle. E MERCHANT: 17:36 LMP N/A - Post-menopause zb Historical: - Allergies: 14:36 Aspirin; zb 14:36 Dilaudid; zb 14:36 Iodinated Contrast Media - IV Dye; zb 14:36 Iodine; zb 14:36 Morphine; zb 14:36 Mucinex; zb 14:36 NSAIDS; zb 14:36 PENICILLINS; zb 14:36 Zofran; zb - Home Meds: 14:36 Adderall XR 30 mg Oral cp24 twice a day [Active]; Ambien 10 mg Oral tab qhs prn for zb Sleep-Onset Insomnia [Active]; Breo Ellipta inhalation twice a day [Active]; Cogentin Oral 1 mg three times a day [Active]; losartan 25 mg Oral tab 1 tab once daily [Active]; levalbuterol tartrate inhalation every 6 hours [Active]; tizanidine 4 mg Oral cap twice a day [Active]; Proventil Inhl every 6 hours [Active]; trazodone 100 mg Oral tab nightly [Active]; Lyrica 150 mg Oral 2 times per day [Active]; Valium 5 mg Oral tab 1 tab 2 times per day [Active]; Vraylar 3 mg Oral cap 1 cap once daily [Active]; Equetro 200 mg Oral CM12 three times a day [Active]; - PMHx: 14:36 Asthma; Bipolar disorder; Bronchitis; COPD; Depression; kidney cancer; zb - PSHx: 14:37 LEFT KIDNEY REMOVED; Hysterectomy; zb - Immunization history:: Adult Immunizations up to date. - Social history:: Smoking status: Patient/guardian denies using tobacco, the patient reports quitting approximately 1 years ago. Screenin:34 Abuse screen: Denies threats or abuse. Denies injuries from another. Nutritional zb screening: No deficits noted. Tuberculosis screening: No symptoms or risk factors identified. Fall Risk No fall in past 12 months (0 pts). Secondary diagnosis (15 points) impaired mobility, No IV (0 pts). Ambulatory Aid- Crutches/Cane/Walker (15 pts). Gait- Impaired (20 pts.). Mental Status- Oriented to own ability (0 pts). Total Mark Fall Scale indicates Low Risk Score (25-44 pts). Fall prevention measures have been instituted. Side Rails Up X 2 Placed close to Nursing Station Frequent Obs/Assesments occuring As available Patient and Family Educated on Fall Prevention Program and strategies. Assessment: 14:30 Reassessment: see triage noted. ECP present at the time. zb 15:15 Reassessment: notified ECP patient states that she is still in a lot of pain. zb 15:30 Reassessment: Patient appears in no apparent distress at this time. Patient and/or zb family updated on plan of care and expected duration. Pain level reassessed. Patient is alert, oriented x 3, equal unlabored respirations, skin warm/dry/pink. US at bedside. 16:53 Reassessment: Patient states that pain is increasing. notified ECP. no medications zb ordered at this time. 17:30 Reassessment: Patient appears in no apparent distress at this time. Patient and/or zb family updated on plan of care and expected duration. Pain level reassessed. Patient is alert, oriented x 3, equal unlabored respirations, skin warm/dry/pink. no changes at this time. d/c instructions given. rewrapped leg. Vital Signs: 14:31 BP 116 / 60; Pulse 60; Resp 20; Temp 98.1; Pulse Ox 95% on R/A; Weight 163.29 kg; zb Height 5 ft. 6 in. (167.64 cm); Pain 10/10; 15:30 BP 117 / 77; Pulse 63; Resp 20; Pulse Ox 94% 2 lpm ; zb 16:30 BP 117 / 82; Pulse 67; Resp 18; Pulse Ox 95% 2 lpm ; zb 17:30 BP 118 / 83; Pulse 63; Resp 16; Pulse Ox 92% on R/A; zb 14:31 Body Mass Index 58.10 (163.29 kg, 167.64 cm) zb ED Course: 14:31 Patient arrived in ED. zb 14:34 Triage completed. zb 14:40 Abhi Adams PA is PHCP. cp 14:40 Jones Whitney MD is Attending Physician. cp 14:48 Bernice Sierra, RN is Primary Nurse. zb 15:12 XRAY Tib Fib LEFT In Process Unspecified. EDMS 15:35 Arm band placed on. zb 15:35 Patient has correct armband on for positive identification. Bed in low position. Call zb light in reach. Side rails up X 1. Pulse ox on. NIBP on. Door closed. Noise minimized. 15:50 US Extremity Venous Unilateral Ltd In Process Unspecified. EDMS 16:37 Warm blanket given. PO fluids given. Verbal reassurance given. Head of bed lowered. zb 17:36 No provider procedures requiring assistance completed. Patient did not have IV access zb during this emergency room visit. Administered Medications: 14:51 Drug: HYDROcodone-acetaminophen 10 mg-325 mg 1 tabs {Note: RASS 0.} Route: PO; zb 16:33 Follow up: Response: No adverse reaction; RASS: Alert and Calm (0) zb 15:25 Drug: Demerol 25 mg {Note: RASS 0.} Route: IM; Site: left deltoid; zb 16:33 Follow up: Response: No adverse reaction; RASS: Alert and Calm (0) zb Outcome: 17:09 Discharge ordered by . cp 17:36 Discharged to home via wheelchair. zb 17:36 Condition: stable 17:36 Discharge instructions given to patient, Instructed on discharge instructions, follow up and referral plans. medication usage, Demonstrated understanding of instructions, follow-up care, medications, Prescriptions given X 1. 17:38 Patient left the ED. zb Signatures: Dispatcher [employer] EDMS Abhi Adams PA PA cp Bernice Sierra, RN RN zb Corrections: (The following items were deleted from the chart) 15:29 14:51 HYDROcodone-acetaminophen 10 mg-325 mg 1 tabs PO zb zb 15:29 15:25 Demerol 25 mg IM in left deltoid zb zb
[2020-07-05 22:32] VITALS: TEMP 98.1
[2020-07-05 22:35] VITALS: BP 118/83; O2SAT 92
== END 2020-07-05 17:38 | disposition home or self-care (01) ==
LOC: ER 14:17
DX: M79.662 Pain in left lower leg (principal); F31.9 Bipolar disorder, unspecified; J44.9 Chronic obstructive pulmonary disease, unspecified; Z88.0 Allergy status to penicillin; Z88.5 Allergy status to narcotic agent; Z88.6 Allergy status to analgesic agent; Z88.8 Allergy status to other drugs, medicaments and biological substances; Z91.041 Radiographic dye allergy status
CPT/HCPCS: 73590; 93971; 96372; 99284; J2175

== ENCOUNTER 2020-07-31 04:06 | Inpatient (IN) | payer OTHER ==
--- OUTSIDE RECORDS SUMMARY | 2020-07-31 04:11 | XMS REPORT | Continuity of Care Document ---
:1970 Author Organization [facility] t Address [address] [place] [address] Care Team Providers Name Role Phone Clause DPAdryan C Attending Clinician Doctor Unassigned, Name Attending Clinician Unavailable Lab, - Attending Clinician Unavailable Matias TREJO Admitting Clinician Payers Payer Name Policy Type Policy Number Effective Date Expiration Date S ource Problems This patient has no known problems. Allergies, Adverse Reactions, Alerts Allergy Allergy Status Severity Reaction(s) Onset Inactive Treating Comm ents Source Name Type Date Date Clinician fentanyl DA Active [place] [facility] 5-27 [place] 00:00: d 00 [facility] Iodinate DA Active SV 2018-05 [facility] d 05-03 Clear Contrast 00:00: Champagne Media 00 [facility] NSAIDS DA Active SV 2018-05 [facility] (Non-Remigio 05-03 Clear roidal 00:00: Champagne Anti-Inf 00 [facility] Penicill DA Active SV 2018-05 [facility] ins 05-03 Clear 00:00: Champagne 00 [facility] morphine DA Active SV 2018-05 [facility] 05-03 Clear 00:00: Champagne 00 [facility] aspirin DA Active U 2018-05 [facility] 05-03 Clear 00:00: Champagne 00 [facility] hydromor DA Active SV 2018-05 [facility] phone 05-03 Clear 00:00: Champagne 00 [facility] shellfis FA Active SV 2018-05 [facility] h 05-03 Clear derived 00:00: Champagne 00 [facility] No Known DA Active U 2007- [facility] Contrast 12-11 [place] Allergie 00:00: d s [facility] No Known DA Active U 2008-0 [facility] Food 12-11 [place] Allergie 00:00: d s [facility] No Known DA Active U 2008-0 [facility] Other 12-11 [place] Allergie 00:00: d [facility] [place] [...] Type Clinicians Facility Department ID 2020-05-22 2020-05-22 [facility] 1.2.840.114 [id number] 07:34:00 15:25:00 Encounter Jigar Chang 350.1.13.10 [place] 4.2.7.2.686 [place] [phone] [place] [address] ([facility]) 2020-05-22 2020-05-22 Orders Doctor VIPUL 1.2.840.114 [id number] 00:00:00 00:00:00 Only Unassigned, MARCUS 350.1.13.10 [facility] 4.2.7.2.686 [id number] 2020-05-22 2020-05-22 Prep For VIPUL Jurado 1.2.840.114 [id number] 057 00:00:00 00:00:00 Surgery Jigar VELAZQUEZ 350.1.13.10 [facility] 4.2.7.2.686 [id number] 015 2020-05-22 2020-05-22 Prep For VIPUL Jurado 1.2.840.114 [id number] 156 00:00:00 00:00:00 Surgery Jigar VELAZQUEZ 350.1.13.10 [facility] 4.2.7.2.686 [id number] 015 2020-05-21 2020-05-21 [facility] Adrien [facility] 1.2.840.114 [id number] 570 13:50:34 23:59:00 Encounter Jigar Saeed Health 350.1.13.10 Clear 4.2.7.2.[address] [id number] [facility] 807 ([facility]) 2020-05-21 2020-05-21 Manager Cardiac Cath Lab, [facility] - [facility] 1.2.840.114 [id number] 13:50:10 14:05:10 Visit Health 350.1.13.10 Clear 4.2.7.2.[address] [phone] [facility] 353 ([facility]) Results Test Description Test Time Test Comments Results Result Comments Source SURG 2020-03-14 16:03:00 Test Item Value Reference Range Interpretation Comme nts SURG RUN DATE: (test 03/14/20 H CA [facility] - LAB PAGE 1 RUN TIME: 1603 code = Specim en Inquiry RUN USER: INTERFACE SURG) PATIENT: MARCELLE WEISS Adryan LOC: [place] U #: [id number] AGE/SX: 50/F ROOM: RE03/13/20REG DR: Tyler Clemens MD : 72 BED: DIS: STATUS: DEP [facility] TLOC: SPEC #: [id number] RECD: STATUS: LEILA MARSH #: [id number] RADHA: 03/13/20 [facility] DR: Tyler Clemens MD ENTERED: 03/13/20 SP TYPE: SURG OTHR DR : Adele York MD ORDERED: SURG PATH LVL 08/03 COPIES TO: Tyler Clemens MD [address] [place], [place] [address] Adele York MD [address] [place] [address] HISTOLO GY: TISSUE ID BLK PCS MANOJ LEV PROCEDURE DISPOSITION ____ _ ___ ___ ___ SMALL INTESTINE A 1 2 GASTRIC ANTRUM B 1 2 STOMACH, NOS C 1 2 PROCEDURES: SURG PATH LVL 4 (03/13/20) TISSUES: A. SMALL INTESTINE, NOS - SMALL BOWEL BIOPSY B. GASTRIC ANTRUM - ANTRUM BIOPSY C. STOMACH, NOS - BODY BIOPSY CPT CODES CPT CODE(S): 29050M5 , , , , , , FINAL DIAGNOSIS A. Small intestine, biopsy: DUODENUM WITH UNREMARKABLE V ILLI B. Stomach, antrum, biopsy: ACUTE GASTRITIS WITH SURFACE ULCERATION NEGATIV E FOR INTESTINAL METAPLASIA, DYSPLASIA, OR MALIGNANCY NEGATIVE FOR HELICOBACTER PYLORI ORGANISM S C. Stomach, body, biopsy: CONTINUED ON NEXT PAGE RUN DATE: 03/14/20 [facility] - LAB PAGE 2 RUN TIME: 1603 Specimen Inquiry RUN USER: INTERFACE SPEC #: [facility]:[id number] PATIENT: MARCELLE WEISS #[id number] (Continued) -- FINAL DIAGNOSIS (Continued) MILD CHRONIC [...] all as C. ba/nr Grossing performed at [facility] Pathology, [address] [place] [address], [address], [place] [address] . Pm Head Cook: Nickolas Steel M.D. MICROSCOPIC DESCRIPTION A. Small [...] 1603 END OF REPORT COVID 19 INHOUSE [id number] 13:44:00 Test Item Value Reference Range Interpretation Comments COVID 19 INHOUSE AG NEGATIVE Negative Per manu facturer, (test code = negative result s should [id number]) be treated aspr esumptive and, if inconsi [...] symptoms co nsistent with COVID-19. CBC W/AUTO [id number] 13:13:00 Test Item Value Reference Range Interpretation [...] NO DIFF/SCN CRITERIA = MDIFF) Novel Coronavirus 2018 [id number] 21:08:00 Test Item Value Reference Range Interpretation Comments Novel Coronavirus 2019 Inhouse (test Negative Negative code = COVNONPUI) COMPREHENSIVE METABOLIC [id number] 09:36:00 Test Item Value Reference Range Interpretation [...] TOTAL (test code = ALKP) HCG SERUM [id number] 09:36:00 Test Item Value Reference Range Interpretation Comments HCG SERUM QUAL (test code = SERUM NEGATIVE NEGATIVE HCGQL) - XR CHEST 2 [id number] 09:35:00 FAX: Jigar Velasco [facility] [phone] [place]: St: PRE FAX: Adele Hernández MD [phone] Name: MARCELLE WEISS [facility] : 1970 Age/S: 49/F [address] [place] [address] Unit #: [id number] Loc: [place] [address] Phys: Jigar Jurado DPM Acct: [id number] Dis Date: Status: PRE SDC PHONE #: [phone] Exam Date: 09/27/2019930 FAX #: [phone] Reason: PREOP- PAIN D/T ORTHOPEDIC IMPLANT EXAMS: CPT CODE: [id number] XR CHEST 2 V 74580 Two-view chest: HISTORY: Preoperative clearance for painful orthopedic implant. FINDINGS: Stable mild cardiomegaly compared with 05/07/2019. Development of areas of bibasilar subsegmental atelectasis. No pleural effusion or bony pathology IMPRESSION: Bibasilar s ubsegmental atelectasis SL: [id number] at 0935 Reported and signed by: Sammy Branham M.D. CC: Jigar Jurado DPM; Adele York MD Technologist: Diamond Castro, RT(R) Trnscrd Date/Time/By: 09/27/2019 (0903) : By: SomETG Orig Print D/T: S: 09/27/2019 (7396) PAGE 1 Signed ReportCOMPREHENSIVE METABOLIC [id number] 09:28:00 Test Item Value Reference Range Interpretation [...] IUnit/L 20-125 code = ALKP) HCG SERUM [id number] 09:28:00 Test Item Value Reference Range Interpretation Comments HCG SERUM QUAL (test code = SERUM NEGATIVE NEGATIVE HCGQL) CBC W/AUTO [id number] 09:21:00 Test Item Value Reference Range Interpretation [...] (test NO code = MDIFF) BASIC METABOLIC [id number] 09:50:00 Test Item Value Reference Range Interpretation [...] = CA) 9.5 MG/DL 8.5-10.1 N VANCOMYCIN [id number] 21:06:00 Test Item Value Reference Range Interpretation Comments VANCOMYCIN TROUGH (test code = 19.1 mcG/ML 10-20 N VANCT) GLUCOSE BEDSIDE [id number] 20:17:00 Test Item Value Reference Range Interpretation Comments GLUCOSE BEDSIDE TESTING (test code = 84 mg/dL 70-110 N GLUBED) - NM BONE 3 [id number] 19:51:00 FAX: Dwight Parrish MD [place]: PM St: ADM FAX: Bettye Alves MD [phone] Name: MARCELLE WEISS [facility] : 1970 Age/S: 49/F [address] [address] Unit #: [id number] Loc: [address] [address] Phys: Bettye Mullins MD Acct: [id number] Dis Date: Status: ADM IN PHONE #: [phone] Exam Date: 05/09/2019 1539 FAX #: Reason: OM ANDHARDWARE INFECTION LEFT ANKLE EXAMS: CPT: [id number] NM BONE 3 PHASE 73439 EXAM: - NM BONE 3 PHASE HISTORY: [...] <2 ng/mL are obtai emily. BASIC METABOLIC [id number] 14:15:00 Test Item Value Reference Range Interpretation [...] <2 ng/mL are obtai emily. CBC W/AUTO [id number] 07:54:00 Test Item Value Reference Range Interpretation [...] code = NO DIFF/SCN CRITERIA MDIFF) SED [id number] 07:54:00 Test Item Value Reference Range Interpretation Comments SED RATE (test code = SEDW) 19 mm/hr 0-20 N BASIC METABOLIC [id number] 06:17:00 Test Item Value Reference Range Interpretation [...] (test code = ng/ml PROCAL) CBC W/AUTO [id number] 06:08:00 Test Item Value Reference Range Interpretation [...] code = NO DIFF/SCN CRITERIA MDIFF) SED [id number] 06:08:00 Test Item Value Reference Range Interpretation Comments SED RATE (test code = SEDW) mm/hr 0-20 [id number] 02:57:00 Test Item Value Reference Range Interpretation [...] may basilio yby method. Completed by Nursing: [id number] 23:57:00 Test Item Value Reference Range Interpretation [...] basilio yby method. Completed by Nursing: OSVALDO RFLX MICR CULT IF [id number] 18:41:00 Test Item Value Reference Range Interpretation [...] for culture: Dysuria/FrequencyUA RFLX MICR CULT IF [id number] 18:41:00 Test Item Value Reference Range Interpretation [...] CLEAN CATCHIndication for culture: Dysuria/Frequency COMPREHENSIVE METABOLIC [id number] 18:23:00 Test Item Value Reference Range Interpretation [...] TOTAL (test code = ALKP) CBC W/AUTO [id number] 18:03:00 Test Item Value Reference Range Interpretation [...] = NO DIFF/SCN CRITERIA MDIFF) LACTIC ACID [id number] 17:58:00 Test Item Value Reference Range Interpretation Comments LACTIC ACID POC (test code = 1.93 MMOL/L 0.90-1.70 H LACTP) - XR ANKLE 3+V [id number] 17:50:00 Name: MARCELLE WEISS [facility] : 1970 Age/S: 49 / F [address] [address] Unit #: [id number] Loc: [place] [address] Phys: Aletha Valerio MD Acct: [id number] Dis Date: Status: REG ER PHONE #: [phone] Exam Date: 05/07/2019 1271 FAX #: Reason: ankle EXAMS: CPT: [id number] XR ANKLE 3+[place] [address] Fluoro Time: DAP (Gy m2): Air Kerma [...] PAGE 1 Signed Report Name: MARCELLE WEISS [facility] : 1970 Age/S: 49 / F [address] [address] Unit #: [id number] Loc: [place] [address] Phys: Aletha Valerio MD Acct: [id number] Dis Date: Status: REG ER PHONE #: [phone] Exam Date: 05/07/2019 1740 FAX #: Reason:ankle EXAMS: CPT: [id number] XR ANKLE 3+[place] [address] Fluoro Time: DAP (Gy m2): Air Kerma (mGy): <Continued> Technologist: RT Charles(R)(MR) Trnscb Date/Time: 05/07/2019 (1749) 16 Orig Print D/T: S: 05/07/2019 (1753) PAGE 2 Signed Report- XR CHEST 1 [id number] 17:40:00 Name: ABHISHEKMARCELLE Adryan [facility] : 1970 Age/S: 49 / F [address] [address] Unit #: [id number] Loc: [place] [address] Phys: Aletha Valerio MD Acct: [id number] Dis Date: Status: REG ER PHONE #: [phone] Exam Date: 05/07/2019 1710 FAX #: Reason: infection EXAMS: CPT: [id number] XR CHEST 1 V 12281 Fluoro Time: DAP (Gy m2): Air Kerma [...] PAGE 1 Signed Report Name: MARCELLE WEISS [facility] : 1970 Age/S: 49 / F [address] [address] Unit #: [id number] Loc: [place] [address] Phys:Aletha Valerio MD Acct: [id number] Dis Date: Status: REG ER PHONE #: [phone] Exam Date: 05/07/2019 1710 FAX #: Reason: infection EXAMS: CPT: [id number] XR CHEST1 V 06347 Fluoro Time: DAP (Gy m2): Air Kerma (mGy): <Continued> Technologist: Miguel Enamorado RT(R)(MR) Trnscb Date/Time: 05/07/2019 (174) SomMD16 Orig Print D/T: S: 05/07/2019 (5245) PAGE 2 Signed ReportPROCALCITONIN (PCT)2019-04-27 03:09:00 Test [...] concentrations <2 ng/mL are obtai emily. SED [id number] 13:10:00 Test Item Value Reference Range Interpretation Comments SED RATE (test code = SEDW) 30 mm/hr 0-20 H [id number] 02:18:00 Test Item Value Reference Range Interpretation [...] may basilio yby method. Completed by Nursing: [id number] 23:37:00 Test Item Value Reference Range Interpretation [...] yby method. Completed by Nursing: NOCHEMISTRY 8 [id number] 22:03:00 Test Item Value Reference Range Interpretation [...] 58-135 N code = GFRBED) CHEMISTRY 8 [id number] 22:03:00 Test Item Value Reference Range Interpretation [...] code = GFRBED) - CT CHEST W/O [id number] 21:11:00 Name: MARCELLE WEISS [facility] : 1970 Age/S: 49 / F [address] [address] Unit #: [id number] Loc: [place] [address] Phys: Uday Maya MD Acct: [id number] Dis Date: Status: ADM IN PHONE #: [phone] Exam Date: 04/25/20192042 FAX #: Reason: lung mass EXAMS: CPT: [id number] CT CHEST W/O CONTRAST 57454 Exam: CT thorax without contrast. Location: H [...] M.D. PAGE 1 Signed Report (CONTINUED) Name: ABHISHEKMARCELLE Adryan [facility] : 1970 Age/S: 49 / F [address] [address] Unit #: [id number] Loc: [place] [address] Phys: Uday Maya MD Acct: [id number] Dis Date: Status: ADM IN PHONE #: [phone] Exam Date: 04/25/20192042 FAX #: Reason: lung mass EXAMS: CPT: [id number] CT CHEST W/O CONTRAST 90003 <Continued> CC: Uday Maya MD; Aletha Valerio MD; Abilio Maldonado MD; Lisette HARGROVE Technologist:Robert Townsend, RT(R)(CT) CTDI: DLP: Trnscb Date/Time: 04/25/2019 (2110) t.SDR.FC Orig Print D/T: S: 04/25/2019 (2113) PAGE [...] TOTAL (test code = ALKP) CBC W/AUTO [id number] 20:01:00 Test Item Value Reference Range Interpretation [...] = NO DIFF/SCN CRITERIA MDIFF) TROPONIN I [id number] 19:58:00 Test Item Value Reference Range Interpretation Comments TROPONIN I RAPID 0.00 ng/mL 0.00-0.08 N - The use o f serial (test code = sampling and te sting TROPIRAP) protocol is a recommended pra ctice- An elevated tro ponin level alone is often not sufficient for diagnosis of my ocardial infarction. LACTIC ACID [id number] 19:58:00 Test Item Value Reference Range Interpretation Comments LACTIC ACID POC (test code = 1.43 MMOL/L 0.90-1.70 N LACTP) - XR CHEST 1 [id number] 19:42:00 Name: MARCELLE WEISS [facility] : 1970 Age/S: 49 / F [address] [address] Unit #: [id number] Loc: [place] [address] Phys: Aletha Valerio MD Acct: [id number] Dis Date: Status: REG ER PHONE #: [phone] Exam Date: 04/25/2019 192 FAX #: Reason: Suspected Sepsis EXAMS: CPT: [id number] XR CHEST 1 V 76087 Fluoro Time: DAP (Gy m2): Air Kerma [...] PAGE 1 Signed Report Name: MARCELLE WEISS [facility] : 1970 Age/S: 49 / F [address] [address] Unit #: [id number] Loc: [place] [address] Phys: Aletha Valerio MD Acct: [id number] Dis Date: Status: REG ER PHONE #: [phone] Exam Date: 04/25/20191919 FAX #: Reason: Suspected Sepsis E XAMS: CPT: [id number] XR CHEST 1 V 08445 Fluoro Time: DAP (Gy m2): Air Kerma (mGy): <Continued> Technologist: David Cole RT(R)(CT) TrnscbDate/Time: 04/25/2019 (1941) tZACHERYR.GS29 Orig Print D/T: S: 04/25/2019 (1945) PAGE 2 Signed ReportBASIC METABOLIC [id number] 06:51:00 Test Item Value Reference Range Interpretation [...] CA) 8.8 MG/DL 8.5-10.1 N CBC W/AUTO [id number] 06:27:00 Test Item Value Reference Range Interpretation [...] = NO DIFF/SCN CRITERIA MDIFF) BASIC METABOLIC [id number] 18:56:00 Test Item Value Reference Range Interpretation [...] CA) 9.0 MG/DL 8.5-10.1 N BASIC METABOLIC [id number] 18:53:00 Test Item Value Reference Range Interpretation [...] CA) 9.0 MG/DL 8.5-10.1 N CBC W/AUTO [id number] 18:52:00 Test Item Value Reference Range Interpretation [...] = NO DIFF/SCN CRITERIA MDIFF) CBC W/AUTO [id number] 07:16:00 Test Item Value Reference Range Interpretation [...] = NO DIFF/SCN CRITERIA MDIFF) BASIC METABOLIC [id number] 07:11:00 Test Item Value Reference Range Interpretation [...] CA) 8.7 MG/DL 8.5-10.1 N BASIC METABOLIC [id number] 11:01:00 Test Item Value Reference Range Interpretation [...] CA) 8.6 MG/DL 8.5-10.1 N CBC W/AUTO [id number] 10:24:00 Test Item Value Reference Range Interpretation [...] = NO DIFF/SCN CRITERIA MDIFF) BASIC METABOLIC [id number] 05:56:00 Test Item Value Reference Range Interpretation [...] CA) 8.8 MG/DL 8.5-10.1 N CBC W/AUTO [id number] 05:51:00 Test Item Value Reference Range Interpretation [...] = NO DIFF/SCN CRITERIA MDIFF) CBC W/AUTO [id number] 06:08:00 Test Item Value Reference Range Interpretation [...] = NO DIFF/SCN CRITERIA MDIFF) BASIC METABOLIC [id number] 05:55:00 Test Item Value Reference Range Interpretation [...] = CA) 9.0 MG/DL 8.5-10.1 N VANCOMYCIN [id number] 14:35:00 Test Item Value Reference Range Interpretation Comments VANCOMYCIN TROUGH (test code = 17.4 mcG/ML 10-20 N VANCT) BASIC METABOLIC [id number] 06:49:00 Test Item Value Reference Range Interpretation [...] CA) 8.5 MG/DL 8.5-10.1 N CBC W/AUTO [id number] 06:44:00 Test Item Value Reference Range Interpretation [...] NO DIFF/SCN CRITERIA MDIFF) - US GUIDANCE VASC [id number] 13:25:00 Name: MARCELLE WEISS [facility] : 1970 Age/S: 49 / F [address] [address] Unit #: [id number] Loc: [place] [address] Phys: Theodore Gonzalez MD Acct: [id number] Dis Date: Status: ADM IN PHONE #: [phone] Exam Date: 03/29/2019 1552 FAX #: Reason: PICC LINE PLACEMENT EXAMS: CPT: [id number] US GUIDANCE VASC ACCESS 85590 Examination: PICC line insertion Location code: S17 Comparison: None locomotive operator: Tamra Binding Cutter: None Sedation: None Anesthesia: 1% lidocaine subcutaneous [...] 6seconds. PAGE 1 Signed Report (CONTINUED) Name: ABHISHEKMAYITOBREANA Cornelius [facility] : 1970 Age/S: 49 /F [address] [facility] Unit #: [id number] Loc: [place] [address] Phys: Theodore Gonzalez MD Acct: [id number] Dis Date: Status: ADM IN PHONE #: [phone] Exam Date: 03/29/2019 1550 FAX #: Reason: PICC LINE PLACEMENT EXAMS: CPT: [id number] US GUIDANCE VASC ACCESS 58665 <Continued> Impression: Successful ultrasound and fluoroscopic guided right basilic PICC line placement. at 1325 Reported and signed by: Camacho Barboza M.D. CC: Theodore Gonzalez MD; Adele York MD Technologist: RT Kris(R),DAPHNIE(AB) Trnscb Date/Time: 03/29/2019 (1320) tJAMEE.JH12 PAGE 2 Signed Report Name: MARCELLE WEISS [facility] : 1970 Age/S: 49 / F [address] [facility] Unit #: [id number] Loc: [place] [address] Phys: Theodore Gonzalez MD Acct: [id number] Dis Date: Status: ADM IN PHONE #: [phone] Exam Date: 03/29/2019 1550 FAX #: Reason: PICC LINE PLACEMENT EXAMS: CPT: [id number] US GUIDANCE VASC ACCESS 00050 <Continued> Orig Print D/T: S: 03/29/2019 (7300) Probe: PAGE 3 Signed Report- FLUORO GUID CTRL ACC [id number] 13:25:00 Name: MARCELLE WEISS [facility] : 1970 Age/S: 49 / F [address] [address] Unit #: [id number] Loc: [place] [address] Phys: Bettye Mullins MD Acct: [id number] Dis Date: Status: ADM IN PHONE #: [phone] Exam Date: 03/29/2019 1301 FAX #: Reason: prolonged antibx EXAMS: CPT: [id number] FLUORO GUID CTRL ACC DEV 71654 Fluoro Time: DAP (Gy m2): Air Kerma (mGy): Examination: PICC line insertion Location code: S17 Comparison: None locomotive operator: Tamra Binding Cutter: None Sedation: None Anesthesia: 1% lidocaine subcutaneous [...] 1 Signed Report (CONTINUED) Name: MARCELLE WEISS [facility] : 1970 Age/S: 49 / F [address] [place] [address] Unit #: [id number] Loc: [place] [address] Phys: Bettye Mullins MD Acct: [id number] DisDate: Status: ADM IN PHONE #: [phone] Exam Date: 03/29/2019 1301 FAX #: Reason: prolonged antibx EXAMS: CPT: [id number] GUID CTRL ACC DEV 79344 Fluoro Time: DAP (Gy m2): Air Kerma (mGy): <Continued> Successful ultrasound and fluoroscopic guided right basilic PICC line placement. at 1325 Reported and signed by: Camacho Barboza M.D. CC: Theodore Gonzalez MD; Bettye Mullins MD; Adele York MD PAGE 2 Signed Report Name:MARCELLE WEISS [facility] : 1970 Age/S: 49 / F [address] [place] [address] Unit #: [id number] Loc: [place] [address] Phys: Bettye Mullins MD Acct: [id number] Dis Date: Status: ADM IN PHONE #: [phone] Exam Date: 03/29/2019 1301 FAX #: Reason: prolonged antibx EXAMS: CPT: [id number] FLUORO GUID CTRL ACC DEV 47535 Fluoro Time: DAP(Gy m2): Air Kerma (mGy): <Continued> Technologist: Ashlyn Maldonado RT(R)(MR) Trnscb Date/Time: 03/29/2019 (1325) tGILBERTJH12 Orig Print D/T: S: 03/29/2019 (9237) PAGE 3 Signed ReportVANCOMYCIN [id number] 00:16:00 Test Item Value Reference Range Interpretation Comments VANCOMYCIN TROUGH (test code = 20.7 mcG/ML 10-20 H VANCT) BASIC METABOLIC [id number] 09:06:00 Test Item Value Reference Range Interpretation [...] CA) 8.6 MG/DL 8.5-10.1 N CBC W/AUTO [id number] 08:47:00 Test Item Value Reference Range Interpretation [...] CRITERIA MDIFF) Comment: postop- XR FLUOROSCOPY 0-60 [id number] 15:46:00 Name: MAYITO WEISSBREANA Cornelius [facility] : 1970 Age/S: 49 / F [address] [address] Unit #: [id number] Loc: [place] [address] Phys: Abilio Maldonado MD Acct: [id number] Dis Date: Status: [facility] PHONE #: [phone] Exam Date: 03/27/2019 0940 FAX #: Reason: LEFT ANKLE I D WITH ANTIBIOTIC BEADS EXAMS: CPT: [id number] XR FLUOROSCOPY 0-60 MIN 30671 Fluoro Time: 4 SEC DAP (Gy m2): [...] PAGE 1 Signed Report Name: MARCELLE WEISS [facility] [place] : 1970 Age/S: 49 / F [address] [address] Unit #: [id number] Loc: [place] [address] Phys: Abilio Maldonado MD Acct: [id number] Dis Date: Status: CAN SDC PHONE #: [phone] Exam Date: 03/27/2019 0940 FAX #: Reason: LEFT ANKLE I D WITH ANTIBIOTIC BEADS EXAMS: CPT: [id number] XR FLUOROSCOPY 0-60 MIN 86177 Fluoro Time: 4 SEC DAP (Gy m2): Air Kerma (mGy): <Continued> Technologist: Lisa Machuca, RT(R) Trnscb Date/Time: 03/27/2019 (1546) SomJH12 Orig Print D/T: S: 03/27/2019 (6301) PAGE 2 Signed ReportUR HCG [id number] 06:57:00 Test Item Value Reference Range Interpretation Comments UR HCG QUAL (test code = HCGQLU) NEGATIVE NEGATIVE UA RFLX MICR CULT IF [id number] 06:54:00 Test Item Value Reference Range Interpretation [...] culture: Flank PainUA RFLX MICR CULT IF [id number] 06:54:00 Test Item Value Reference Range Interpretation [...] (test code 6.5 pH UNITS 5.0-7.0 = WGEN) UA PROTEIN DIPSTICK (test NEGATIVE mg/dL NEG [...] CLEAN CATCHIndication for culture: Flank PainBASIC METABOLIC [id number] 08:09:00 Test Item Value Reference Range Interpretation [...] CA) 8.9 MG/DL 8.5-10.1 N VITAMIN D [id number] 08:09:00 Test Item Value Reference Range Interpretation Comments VITAMIN D 33.2 ng/mL 30.0-100.0 Vitamin D defic iency has 25-HYDROXY (test been define d by the code = VITD25) [facility] edicine and an Endocrine So ciety practice guidel ine as alevel of serum 25-OH vitamin D less than 20 ng/mL (1,2).The Endocrine Society went on to further define vitamin Dinsufficiency as a level between 21 and 29 ng/mL (2).1. IOM (Ins [facility] of Medicine). 2010 . Dietary reference int akes for calcium and D. [place]: [employer] .2. Caitlin MF, Jerrell AMOR, Parish i ROLLINS, et al. Evaluatio n, treatment, and prevention of vitamin D deficiency: an Endocrine Society clinica l practice guideline. ALLY EM. 2010; 96(2):9341-30.P erformed At: [facility] [id number] [place], [place] [id number] Abilio Rosales MD Ph:[phone] CBC W/AUTO [id number] 13:29:00 Test Item Value Reference Range Interpretation [...] code = NO DIFF/SCN CRITERIA MDIFF) SED [id number] 13:29:00 Test Item Value Reference Range Interpretation Comments SED RATE (test code = SEDW) 10 mm/hr 0-20 N URINALYSIS [id number] 13:12:00 Test Item Value Reference Range Interpretation [...] LEUU) Urine Specimen Type: Clean CatchC REACTIVE [id number] 12:47:00 Test Item Value Reference Range Interpretation Comments C REACTIVE PROTEIN (test code = 1.260 MG/DL 0.000-0.3 H CRP) BASIC METABOLIC [id number] 12:46:00 Test Item Value Reference Range Interpretation [...] CA) 8.9 MG/DL 8.5-10.1 N VITAMIN D [id number] 12:46:00 Test Item Value Reference Range Interpretation Comments VITAMIN D 25-HYDROXY (test code = VITD25) PROTHROMBIN [id number] 12:33:00 Test Item Value Reference Range Interpretation Comments PT PATIENT (test code = PTP) 11.4 SECONDS 9.3-12.9 N INTERNATIONAL NORMAL RATIO 0.99 INR Unit 0.8-1.2 N (test code = INR) THROMBOPLASTIN TIME [id number] 12:33:00 Test Item Value Reference Range Interpretation Comments THROMBOPLASTIN TIME PARTIAL 29.0 SECONDS 26-35 N (test code = PTT) CBC W/AUTO [id number] 12:32:00 Test Item Value Reference Range Interpretation [...] code = NO DIFF/SCN CRITERIA MDIFF) SED [id number] 12:32:00 Test Item Value Reference Range Interpretation Comments SED RATE (test code = SEDW) mm/hr 0-20 - XR CHEST 1 [id number] 12:00:00 Name: ABHISHEKMARCELLE [facility] : 1970 Age/S: 49 / F [address] [place] Unit #: [id number] Loc: [place] [address] Phys: Abilio Maldonado MD Acct: [id number] Dis Date: Status: PRE SDC PHONE #: [phone] Exam Date: 03/03/2019 1152 FAX #: Reason: PRE OP EXAMS: CPT: [id number] XR CHEST 1 V 39246 Fluoro Time: DAP (Gy m2): Air Kerma [...] PAGE 1 Signed Report Name: MARCELLE WEISS [facility] : 1970 Age/S: 49 / F [address] [place] Unit #: [id number] Loc: [place] [address] Phys: Abilio Maldonado MD Acct: [id number] Dis Date: Status: PRE [facility] PHONE #: [phone] Exam Date: 03/03/2019 1152 FAX #: Reason: PRE OP EXAMS: CPT: [id number] XR CHEST 1 V 88066 Fluoro Time: DAP (Gy m2): Air Kerma (mGy): <Continued> Technologist: Kevin Herrera, RT(R)(CT); Lisa Machuca, RT(R) Trnnhb Date/Time: 03/03/2019 (1200) [id number] Orig Print D/T: S: 03/03/2019 (1206) PAGE 2 Signed Report
[2020-07-31 05:10] LABS: Absolute Lymphocytes (CBC) 1.5 K/uL (0.7-4.9); Basophils % 1.1 % (0-1.3); Hematocrit 34.3 % (36.0-45.0); Lymphocytes % 24.7 % (15.3-44.8); MPV 8.9 fL (7.6-11.3); RBC Red Blood Cell Count 4.05 M/uL (3.86-4.86)
[2020-07-31] MEDS ORDERED: LEVALBUTEROL 1.25 MG/3 ML NEB ONE ×2 (05:12→11:33)
[2020-07-31] MEDS ORDERED: METHYLPREDNISOLONE 125 MG INJ ONE (05:12)
[2020-07-31] MEDS ORDERED: MEPERIDINE HCL 25 MG/ML SYR ONE (05:12)
[2020-07-31 05:21] LABS: BUN Blood Urea Nitrogen 17 mg/dL (7-18); Bicarbonate 38 mmol/L (21-32); Glucose Level 106 mg/dL (74-106); NT PRO-BNP 802 pg/mL (<125); Potassium 4.7 mmol/L (3.5-5.1); Sodium Level 141 mmol/L (136-145); Troponin (Emerg Dept Use Only) < 0.02 ng/mL (0.0-0.045)
[2020-07-31] MEDS ORDERED: Levofloxacin500mg IV 500 MG/100 ML BAG IV ONE (06:15)
--- NOTE | 2020-07-31 06:24 | ER ---
Nurse's Notes [facility] Name: Oleg Rosenberg Age: 50 yrs Sex: Female : 1970 Arrival Date: 07/31/2020 Time: 04:08 Bed 17 Private MD: Diagnosis: Chronic obstructive pulmonary disease with acute lower respiratory infection;Pneumonia, unspecified organism Presentation: 07/31 04:08 Chief complaint: EMS states: Her could not wake her up. He called us. She was jb4 95% on 4L NC. We gave her an A:A 1:1 and put her on 15L via NRB. Coronavirus screen: Client denies travel out of the [place] in the last 14 days. At this time, the client does not indicate any symptoms associated with coronavirus-19. Ebola Screen: No symptoms or risks identified at this time. Initial Sepsis Screen: Does the patient meet any 2 criteria? No. Patient's initial sepsis screen is negative. Does the patient have a suspected source of infection? No. Patient's initial sepsis screen is negative. Risk Assessment: Do you want to hurt yourself or someone else? Patient reports no desire to harm self or others. Onset of symptoms was July 29, 2020. Transition of care: patient was not received from another setting of care. 04:08 Method Of Arrival: EMS: [facility] jb4 04:08 Acuity: AAYUSH 3 jb4 Historical: - Allergies: 04:14 Aspirin; jb4 04:14 Dilaudid; jb4 04:14 Iodinated Contrast Media - IV Dye; jb4 04:14 Iodine; jb4 04:14 Morphine; jb4 04:14 Mucinex; jb4 04:14 NSAIDS; jb4 04:14 PENICILLINS; jb4 04:14 Zofran; jb4 - Home Meds: 04:14 Adderall XR 30 mg Oral cp24 twice a day [Active]; Ambien 10 mg Oral tab qhs prn for jb4 Sleep-Onset Insomnia [Active]; Breo Ellipta inhalation twice a day [Active]; Cogentin Oral 1 mg three times a day [Active]; Equetro 200 mg Oral CM12 three times a day [Active]; levalbuterol tartrate inhalation every 6 hours [Active]; losartan 25 mg Oral tab 1 tab once daily [Active]; Lyrica 150 mg Oral 2 times per day [Active]; Proventil Inhl every 6 hours [Active]; tizanidine 4 mg Oral cap twice a day [Active]; trazodone 100 mg Oral tab nightly [Active]; Valium 5 mg Oral tab 1 tab 2 times per day [Active]; Vraylar 3 mg Oral cap 1 cap once daily [Active]; - PMHx: 04:14 Asthma; Bipolar disorder; Bronchitis; COPD; Depression; kidney cancer; jb4 - PSHx: 04:14 LEFT KIDNEY REMOVED; Hysterectomy; jb4 - Immunization history:: Adult Immunizations up to date. - Social history:: Smoking status: Patient denies any tobacco usage or history of. Patient/guardian denies using alcohol, street drugs. - Family history:: not pertinent. - Hospitalizations: : No recent hospitalization is reported. Assessment: 04:14 General: Appears in no apparent distress. uncomfortable, Behavior is calm, cooperative, jb4 appropriate for age. Pain: Complains of pain in Left foot Pain does not radiate. Pain currently is 9 out of 10 on a pain scale. Neuro: Level of Consciousness is awake, alert, obeys commands, Oriented to person, place, time, situation. Cardiovascular: Patient's skin is warm and dry. Respiratory: Airway is patent Respiratory effort is even, labored, Respiratory pattern is regular, symmetrical, Breath sounds with wheezes bilaterally. GI: No signs and/or symptoms were reported involving the gastrointestinal system. : No signs and/or symptoms were reported regarding the genitourinary system. EENT: No signs and/or symptoms were reported regarding the EENT system. Derm: Skin is intact, Skin is pink, warm \T\ dry. Musculoskeletal: Circulation, motion, and sensation intact. Range of motion: intact in all extremities. 05:00 Reassessment: Patient appears in no apparent distress at this time. No changes from jb4 previously documented assessment. Patient and/or family updated on plan of care and expected duration. Pain level reassessed. 06:09 Reassessment: PT appears to be resting much more relaxed. Provider notified that pt is jb4 requesting more pain medication when awake, and is having a hard time staying awake and is very drowsy. No new orders at this time. Respirations are even and unlabored. Pt remains on 4L NC. 08:00 Reassessment: Patient appears in no apparent distress at this time. No changes from bw previously documented assessment. Patient and/or family updated on plan of care and expected duration. Pain level reassessed. 10:30 Reassessment: Patient appears in no apparent distress at this time. No changes from bw previously documented assessment. Patient and/or family updated on plan of care and expected duration. Pain level reassessed. Vital Signs: 04:08 BP 117 / 54; Pulse 72; Resp 20; Temp 98.1(O); Pulse Ox 97% on 4 lpm NC; Weight 161.48 jb4 kg (R); Height 5 ft. 6 in. (167.64 cm); Pain 9/10; 05:00 BP 105 / 41; Pulse 68; Resp 20; Pulse Ox 95% on 4 lpm NC; jb4 06:00 BP 116 / 56; Pulse 68; Resp 19; Pulse Ox 92% on 4 lpm NC; jb4 11:54 BP 120 / 60; Pulse 74; Resp 21; Pulse Ox 92% on 5 lpm NC; bw 04:08 Body Mass Index 57.46 (161.48 kg, 167.64 cm) jb4 ED Course: 04:08 Patient arrived in ED. jb4 04:12 Triage completed. jb4 04:14 Arm band placed on right wrist. jb4 04:19 Ihsan Song MD is Attending Physician. rn 04:30 Camacho Mojica, HARDIK is Primary Nurse. jb4 04:53 XRAY CXR (1 view) In Process Unspecified. EDMS 06:22 Sumanth Song MD is Hospitalizing Provider. rn 07:41 Blood Culture Adult (2) Sent. bw Administered Medications: 05:00 Drug: Xopenex (3) 1.25 mg Route: Inhalation; jb4 05:30 Follow up: Response: No adverse reaction; Marked relief of symptoms; Wheezing diminishedjb4 05:10 Drug: Demerol 25 mg Route: IVP; Site: left antecubital; jb4 05:30 Follow up: Response: No adverse reaction; Marked relief of symptoms; Pain is decreased jb4 05:11 Drug: SOLU-Medrol 125 mg Route: IVP; Site: left antecubital; jb4 05:30 Follow up: Response: No adverse reaction jb4 06:05 Drug: LevaQUIN 500 mg Volume: 100 ml; Route: IVPB; Infused Over: 60 mins; Site: left jb4 antecubital; Outcome: :22 Decision to Hospitalize by Provider. rn 12:14 Patient left the ED. bw Signatures: Dispatcher [employer] Ihsan Valencia MD MD rn Bryson, James, RN RN [facility] Janice Narayan RN RN
--- NOTE | 2020-07-31 06:24 | EDPHYS ---
Physician Documentation [facility] Name: Oleg Rosenberg Age: 50 yrs Sex: Female : 1970 Arrival Date: 07/31/2020 Time: 04:08 Bed 17 Private MD: ED Physician Ihsan Song HPI: 07/31 05:21 This 50 yrs old Female presents to ER via EMS with complaints of sob. rn 05:21 The patient has shortness of breath at rest, with light activity. rn 05:21 Onset: The symptoms/episode began/occurred at an unknown time. Duration: The symptoms rn are intermittent. The patient's shortness of breath is aggravated by exertion, light activity, is alleviated by nothing. Severity of symptoms: At their worst the symptoms were moderate in the emergency department the symptoms have improved. The patient has experienced similar episodes in the past. The patient has not recently seen a physician. EMS reports couldn't wake her up, has COPD and CHF, + increased sob lately, + non-productive cough, no fever. No recent steroids or admission.. Historical: - Allergies: 04:14 Aspirin; jb4 04:14 Dilaudid; jb4 04:14 Iodinated Contrast Media - IV Dye; jb4 04:14 Iodine; jb4 04:14 Morphine; jb4 04:14 Mucinex; jb4 04:14 NSAIDS; jb4 04:14 PENICILLINS; jb4 04:14 Zofran; jb4 - Home Meds: 04:14 Adderall XR 30 mg Oral cp24 twice a day [Active]; Ambien 10 mg Oral tab qhs prn for jb4 Sleep-Onset Insomnia [Active]; Breo Ellipta inhalation twice a day [Active]; Cogentin Oral 1 mg three times a day [Active]; Equetro 200 mg Oral CM12 three times a day [Active]; levalbuterol tartrate inhalation every 6 hours [Active]; losartan 25 mg Oral tab 1 tab once daily [Active]; Lyrica 150 mg Oral 2 times per day [Active]; Proventil Inhl every 6 hours [Active]; tizanidine 4 mg Oral cap twice a day [Active]; trazodone 100 mg Oral tab nightly [Active]; Valium 5 mg Oral tab 1 tab 2 times per day [Active]; Vraylar 3 mg Oral cap 1 cap once daily [Active]; - PMHx: 04:14 Asthma; Bipolar disorder; Bronchitis; COPD; Depression; kidney cancer; jb4 - PSHx: 04:14 LEFT KIDNEY REMOVED; Hysterectomy; jb4 - Immunization history:: Adult Immunizations up to date. - Social history:: Smoking status: Patient denies any tobacco usage or history of. Patient/guardian denies using alcohol, street drugs. - Family history:: not pertinent. - Hospitalizations: : No recent hospitalization is reported. ROS: 05:21 Constitutional: Negative for fever, chills, and weight loss, Eyes: Negative for injury, rn pain, redness, and discharge, Neck: Negative for injury, pain, and swelling, Cardiovascular: Negative for chest pain, palpitations, and edema, Respiratory: + cough and sob Abdomen/GI: Negative for abdominal pain, nausea, vomiting, diarrhea, and constipation, Back: Negative for injury and pain, MS/Extremity: + pain s/p LLE surgery Skin: Negative for injury, rash, and discoloration, Neuro: Negative for headache, weakness, numbness, tingling, and seizure. Exam: 05:21 Constitutional: Obese female, + moderate tachypnea Head/Face: Normocephalic, rn atraumatic. ENT: no stridor Cardiovascular: Regular rate and rhythm. No pulse deficits. Respiratory: + moderate tachypnea, no retractions, diffuse wheezing Abdomen/GI: soft, non-tender Skin: Warm, dry MS/ Extremity: Pulses equal, no cyanosis. + LLE in splint, no cyanosis. Neuro: Awake and alert, GCS 15 Vital Signs: 04:08 BP 117 / 54; Pulse 72; Resp 20; Temp 98.1(O); Pulse Ox 97% on 4 lpm NC; Weight 161.48 jb4 kg (R); Height 5 ft. 6 in. (167.64 cm); Pain 9/10; 05:00 BP 105 / 41; Pulse 68; Resp 20; Pulse Ox 95% on 4 lpm NC; jb4 06:00 BP 116 / 56; Pulse 68; Resp 19; Pulse Ox 92% on 4 lpm NC; jb4 11:54 BP 120 / 60; Pulse 74; Resp 21; Pulse Ox 92% on 5 lpm NC; bw 04:08 Body Mass Index 57.46 (161.48 kg, 167.64 cm) jb4 MDM: 04:19 Patient medically screened. rn 05:37 Differential diagnosis: Bronchitis CHF exacerbation, Chronic Obstructive Pulmonary rn Disease pneumonia, Pneumothorax pulmonary edema. Data reviewed: vital signs, nurses notes, lab test result(s), EKG, radiologic studies, plain films, and as a result, I will admit patient. Counseling: I had a detailed discussion with the patient and/or guardian regarding: the historical points, exam findings, and any diagnostic results supporting the discharge/admit diagnosis, lab results, radiology results, the need for further work-up and treatment in the hospital. Response to treatment: the patient's symptoms have mildly improved after treatment, and as a result, I will discharge patient. Admission orders: after a detailed discussion of the patient's condition and case, the admit orders are written by me. Special discussion:. 06:21 ED course: Pt with pneumonia, COPD, CHF, will admit to lAvaro Song for further care. . rn 07/31 04:22 Order name: Blood Culture Adult (2) rn 07/31 04:22 Order name: BMP; Complete Time: 05:35 07/31 04:22 Order name: CBC with Diff; Complete Time: 05:20 rn 07/31 04:22 Order name: NT PRO-BNP; Complete Time: 05:35 07/31 04:22 Order name: PT-INR rn 07/31 04:22 Order name: Ptt, Activated rn 07/31 04:22 Order name: XRAY CXR (1 view) rn 07/31 04:22 Order name: Troponin (emerg Dept Use Only); Complete Time: 05:35 rn 07/31 04:23 Order name: Blood Culture [facility] 07/31 06:18 Order name: ABG jb4 07/31 08:33 Order name: SARS-COV-2 RT PCR [facility] 07/31 11:35 Order name: Thyroid Stimulating Hormone [facility] 07/31 04:22 Order name: EKG; Complete Time: 04:23 rn 07/31 04:22 Order name: Cardiac monitoring; Complete Time: 05:11 rn 07/31 04:22 Order name: EKG - Nurse/Tech; Complete Time: 05:11 07/31 04:22 Order name: IV Saline Lock; Complete Time: 05:11 rn 07/31 04:22 Order name: Labs collected and sent; Complete Time: 05:11 rn 07/31 04:22 Order name: O2 Per Protocol; Complete Time: 04:31 rn 07/31 04:22 Order name: O2 Sat Monitoring; Complete Time: 04:31 rn 07/31 05:24 Order name: Labs - recollect needed: blue top; Complete Time: 05:53 em 07/31 06:34 Order name: CONS Physician Consult; Complete Time: 07:42 EDMS 07/31 08:41 Order name: Diet Heart Healthy; Complete Time: 08:42 mt Administered Medications: 05:00 Drug: Xopenex (3) 1.25 mg Route: Inhalation; jb4 05:30 Follow up: Response: No adverse reaction; Marked relief of symptoms; Wheezing diminishedjb4 05:10 Drug: Demerol 25 mg Route: IVP; Site: left antecubital; jb4 05:30 Follow up: Response: No adverse reaction; Marked relief of symptoms; Pain is decreased jb4 05:11 Drug: SOLU-Medrol 125 mg Route: IVP; Site: left antecubital; jb4 05:30 Follow up: Response: No adverse reaction jb4 06:05 Drug: LevaQUIN 500 mg Volume: 100 ml; Route: IVPB; Infused Over: 60 mins; Site: left jb4 antecubital; Disposition: 07/31/20 06:22 Hospitalization ordered by Sumanth Song for Observation. Preliminary diagnosis are Chronic obstructive pulmonary disease with acute lower respiratory infection, Pneumonia, unspecified organism. - Bed requested for Telemetry/MedSurg (observation). - Status is Observation. bw - Condition is Stable. - Problem is an acute exacerbation. - Symptoms have improved. Signatures: Dispatcher [employer] EDNJ Brit Huynh Edgar, RN RN em Nieto, Roman, MD MD rn Bryson, James, RN RN jb Janice Narayan RN RN bw Corrections: (The following items were deleted from the chart) 07:03 06:25 Chest For PE Angio+CT.RAD.BRZ ordered. EDNJ EDMS 11:15 06:22 Hospitalization Ordered by Sumanth Song MD for Observation. Preliminary bd diagnosis is Chronic obstructive pulmonary disease with acute lower respiratory infection; Pneumonia, unspecified organism. Bed requested for Telemetry/MedSurg (observation). Status is Observation. Condition is Stable. Problem is an acute exacerbation. Symptoms have improved. rn 12:14 11:15 07/31/2020 06:22 Hospitalization Ordered by Sumanth Song MD for Observation. bw Preliminary diagnosis is Chronic obstructive pulmonary disease with acute lower respiratory infection; Pneumonia, unspecified organism. Bed requested for Telemetry/MedSurg (observation). Status is Observation. Condition is Stable. Problem is an acute exacerbation. Symptoms have improved. bd
[2020-07-31 06:25] LABS: Protime INR 0.98
[2020-07-31 06:48] LABS: Arterial Blood Carboxyhemoglob 3.9 % (0-1.5); Blood Gas Oxyhemoglobin 80.2 % (94-97); Blood O2 Saturation 84.2 % (92-98.5)
--- NOTE | 2020-07-31 06:56 | P.HP ---
Certification for Inpatient Patient admitted to: Inpatient With expected LOS: >2 Midnights Practitioner: I am a practitioner with admitting privileges, knowledge of patient current condition, hospital course, and medical plan of care. Services: Services provided to patient in accordance with Admission requirements found in Title 42 Section 412.3 of the Code of Federal Regulations Patient History Date of Service: 07/31/20 Reason for admission: Hypoxia, Pneumonia, COPD Exacerbation History of Present Illness: 50yo morbidly obese female, presents to ED due to ~3 days progressively worsening shortness of breath / dyspnea on exertion. CXR in ED concerning for possible RLL pneumonia vs unilateral pulmonary edema. Patient reports xopenex inhaler helped temporarily, but still feeling worse. She is chronically on 4L NC at home. She was noted to be hypoxic in 80s on 4 L NC. She recently had L ankle fusion in ~2 months ago, and is still non-weightbearing to the L ankle. She denies any worsening of her lower extremity swelling. ROS: +cough, +wheeze, no fever/chills, no chest pain, no abdominal pain, no vomiting/diarrhea, no worsening of lower extremity edema. Allergies aspirin Allergy (Severe, Verified 10/20/18 15:03) Anaphylaxis guaifenesin [From Mucinex] Allergy (Severe, Verified 10/20/18 15:03) Anaphylaxis hydromorphone HCl [From Dilaudid] Allergy (Severe, Verified 10/20/18 15:03) Anaphylaxis morphine Allergy (Severe, Verified 10/20/18 15:03) Anaphylaxis NSAIDS (Non-Steroidal Anti-Inflamma Allergy (Severe, Verified 10/20/18 15:03) Hives Penicillins Allergy (Severe, Verified 10/20/18 15:03) Anaphylaxis fentanyl Allergy (Verified 11/15/19 01:13) Itching/Hives/Rash Iodinated Contrast Media [Iodinated Contrast Media - IV Dye] Allergy (Verified 10/20/18 15:03) Anaphylaxis ondansetron [From Zofran] Allergy (Verified 10/20/18 15:03) Itching Home Medications: Benztropine Mesylate [Cogentin*] 1 mg PO TID 10/12/18 Ergocalciferol (Vitamin D2) [Vitamin D 50,000 Unit Cap] 50,000 unit PO Q7D 10/20/18 Tizanidine HCl 4 mg PO BID 10/20/18 Albuterol Sulfate [Proventil Hfa] 2 puff IH QID 09/23/19 Carbamazepine [Equetro] 200 mg PO TID 09/23/19 Cariprazine HCl [Vraylar] 3 mg PO DAILY 09/23/19 Dextroamphetamine/Amphetamine [Adderall 10 mg Tablet] 10 mg PO BID 09/23/19 Ipratropium/Albuterol Sulfate [Iprat-Albut 0.5-3(2.5) mg/3 ml] 3 ml IH QIDP PRN 09/23/19 Levalbuterol Tartrate [Levalbuterol Tartrate Hfa] 2 puff IH QIDP PRN 09/23/19 Losartan Potassium 25 mg PO DAILY 09/23/19 Multivit-Minerals/Folic/Ginkgo [One Daily Women's 50+ Tablet] 1 each PO DAILY 09/23/19 Pregabalin [Lyrica] 150 mg PO BID 09/23/19 Fluticasone/Umeclidin/Vilanter [Trelegy Ellipta 100-62.5-25] 1 each IH DAILY 30 Days #30 blst.w.dev 12/20/19 levoFLOXacin [Levaquin*] 750 mg PO DAILY #7 tab 12/21/19 predniSONE [Prednisone*] 20 mg PO BID #8 tab 12/21/19 - Past Medical/Surgical History Diabetic: No -: COPD -: Obstructive sleep apnea -: Tobacco abuse -: Chronic pain -: GERD -: kidney cancer -: Suspect obstructive sleep apnea -: Diaphragmatic hernia -: GERD -: Former smoker -: Left nephrectomy -: Hysterectomy -: right lower leg I and D -: Lap band/and reversal -: -: I&D to the abdomen superficially -: left shoulder sx -: left ankle surgery Psychosocial/ Personal History: , one child, disabled. - Family History Father -: Heart disease, Hypertension, Cancer, Liver disease Notes: liver CA, cirrhosis Mother -: Lung disease Notes: copd , of morbid obesity Brother -: Hypertension Sister -: Lung disease, GI disease, Diabetes - Social History Smoking Status: Current some day smoker ("quit" last year, but still occasionally has 1 cigarette) Alcohol use: No CD- Drugs: No Caffeine use: Yes Place of Residence: Home (with ) Review of Systems 10-point ROS is otherwise unremarkable Physical Examination - Studies Laboratory Data (last 24 hrs) 07/31/20 06:00: PT 11.3, INR 0.98, APTT 27.8 07/31/20 04:42: Sodium 141, Potassium 4.7, BUN 17, Creatinine 0.79, Glucose 106 07/31/20 04:36: WBC 6.30, Hgb 10.6 L, Hct 34.3 L, Plt Count 156 Assessment and Plan - Advance Directives Does patient have a Living Will: No Does patient have a Durable POA for Healthcare: No Physician Review Additional Text: Physical Exam: Gen: mild distress HEENT: normal conjunctiva, sclera anicteric Pulm: diffuse wheeze bilaterally, mild b/l crackles at bases R>L, poor inspiration CV: RRR, no murmur Abd: soft, NTND Ext: 1+ edema to b/l lower extremities. LLE: foot/ankle splint in place, dressing removed: well healing surgical scar on medial aspect, and healing later al scar with some slight scabbing, no purulent drainage, no induration, no significant erythema surrounding Neuro: AAOx3, normal affect, moves all extremities Problem List: Acute hypoxemic respiratory failure secondary to RLL pneumonia and COPD exacerbation Chronic diastolic CHF HTN morbid obesity with hypoventilation obesity syndrome Chronic pain recent LLE ankle fusion -given her recent surgery and dyspena, CTA ordered to r/o PE -empirically treat with levaquin for presumed RLL pneumonia seen on CXR, pt allergic to penicillins -treat COPD with IV steroids, nebs, wean O2 as needed -pt reportedly slightly lethargic /sleepy intermittently, will obtain ABG, suspect hypercapnia -pulm consulted -obtain home medications and continue as appropriate -VTE prophylaxis with lovenox for now, pending CTA -COVID pending -wound care consult for LLE post-op wound, pt reports is being treated with antibiotics over the last several days, unsure of antibiotic, will talk with and get back to me. reports she still has ~3-4 more days remaining VTE: lovenox Code: full Dispo: anticipate dc home in ~48hrs Time Spent Managing Pts Care (In Minutes): 60
--- NOTE | 2020-07-31 08:50 | P.CNS ---
Date of Consult: 07/31/20 Reason for Consult: Respiratory failure Chief Complaint: Hypoxia, Pneumonia, COPD Exacerbation History of Present Illness: Patient is 50 years of age morbidly obese has had progressive shortness of breath for the past 3 days some edema of her right lower extremity continues to smoke she is admitted with hypoxemia has not followed up with me for quite some time uses an inhaler at home Allergies aspirin Allergy (Severe, Verified 10/20/18 15:03) Anaphylaxis guaifenesin [From Mucinex] Allergy (Severe, Verified 10/20/18 15:03) Anaphylaxis hydromorphone HCl [From Dilaudid] Allergy (Severe, Verified 10/20/18 15:03) Anaphylaxis morphine Allergy (Severe, Verified 10/20/18 15:03) Anaphylaxis NSAIDS (Non-Steroidal Anti-Inflamma Allergy (Severe, Verified 10/20/18 15:03) Hives Penicillins Allergy (Severe, Verified 10/20/18 15:03) Anaphylaxis fentanyl Allergy (Verified 11/15/19 01:13) Itching/Hives/Rash Iodinated Contrast Media [Iodinated Contrast Media - IV Dye] Allergy (Verified 10/20/18 15:03) Anaphylaxis ondansetron [From Zofran] Allergy (Verified 10/20/18 15:03) Itching Home Medications: Benztropine Mesylate [Cogentin*] 1 mg PO TID 10/12/18 Ergocalciferol (Vitamin D2) [Vitamin D 50,000 Unit Cap] 50,000 unit PO Q7D 10/20/18 Tizanidine HCl 4 mg PO BID 10/20/18 Albuterol Sulfate [Proventil Hfa] 2 puff IH QID 09/23/19 Carbamazepine [Equetro] 200 mg PO TID 09/23/19 Cariprazine HCl [Vraylar] 3 mg PO DAILY 09/23/19 Dextroamphetamine/Amphetamine [Adderall 10 mg Tablet] 10 mg PO BID 09/23/19 Ipratropium/Albuterol Sulfate [Iprat-Albut 0.5-3(2.5) mg/3 ml] 3 ml IH QIDP PRN 09/23/19 Levalbuterol Tartrate [Levalbuterol Tartrate Hfa] 2 puff IH QIDP PRN 09/23/19 Losartan Potassium 25 mg PO DAILY 09/23/19 Multivit-Minerals/Folic/Ginkgo [One Daily Women's 50+ Tablet] 1 each PO DAILY 09/23/19 Pregabalin [Lyrica] 150 mg PO BID 09/23/19 Fluticasone/Umeclidin/Vilanter [Trelegy Ellipta 100-62.5-25] 1 each IH DAILY 30 Days #30 blst.w.dev 12/20/19 levoFLOXacin [Levaquin*] 750 mg PO DAILY #7 tab 12/21/19 predniSONE [Prednisone*] 20 mg PO BID #8 tab 12/21/19 - Past Medical/Surgical History Diabetic: No -: COPD -: Obstructive sleep apnea -: Tobacco abuse -: Chronic pain -: GERD -: kidney cancer -: Suspect obstructive sleep apnea -: Diaphragmatic hernia -: GERD -: Former smoker -: Left nephrectomy -: Hysterectomy -: right lower leg I and D -: Lap band/and reversal -: -: I&D to the abdomen superficially -: left shoulder sx -: left ankle surgery Psychosocial/ Personal History: , one child, disabled. - Family History Father Medical History: Heart disease, Hypertension, Cancer, Liver disease Notes: liver CA, cirrhosis Mother Medical History: Lung disease Notes: copd , of morbid obesity Brother Medical History: Hypertension Sister Medical History: Lung disease, GI disease, Diabetes - Social History Smoking Status: Current every day smoker Alcohol use: No CD- Drugs: No Caffeine use: Yes Place of Residence: Home (with ) Review of Systems General: Weakness Respiratory: Shortness of Breath Gastrointestinal: Nausea Physical Examination General: Alert, Oriented x3, Moderate distress Respiratory: Clear to auscultation bilaterally, Expiratory wheezes Cardiovascular: Regular rate/rhythm, Normal S1 S2, Edema (Mild edema of the right leg) Gastrointestinal: Normal bowel sounds, Soft and benign, Non-distended Laboratory Data (last 24 hrs) 07/31/20 06:00: PT 11.3, INR 0.98, APTT 27.8 07/31/20 04:42: Sodium 141, Potassium 4.7, BUN 17, Creatinine 0.79, Glucose 106 07/31/20 04:36: WBC 6.30, Hgb 10.6 L, Hct 34.3 L, Plt Count 156 - Problems (1) Chronic respiratory failure Current Visit: Yes Status: Acute Plan: Patient is 50 years of age morbidly obese with a history of COPD admitted with chronic hypoxemia and hypercapnia hypercapnia is worse chest x-ray shows some interstitial changes possible underlying diastolic dysfunction she also has symptoms of sleep apnea complains of excessive daytime somnolence loud snoring white count is normal mildly anemic recommend bronchodilator therapy steroids diuretics if tolerated will try and set her up for noninvasive ventilator at home patient will benefit from a noninvasive ventilator the prevent Re admissions BiPAP is not suitable in view of the severity of her condition underlying comorbid problems the patient is not at risk for Pseudomonas infect ion I he has not had any antibiotics for the past 3 months can change of address clerk to Augmentin and p.o. doxycycline a Zithromax Dc levofloxacin change of address clerk to p.o. prednisone evaluate for home oxygen doubt PE Qualifiers: Respiratory failure complication: hypoxia and hypercapnia Qualified Code(s): J96.11 - Chronic respiratory failure with hypoxia; J96.12 - Chronic respiratory failure with hypercapnia
--- NOTE | 2020-07-31 09:47 | RAD REPORT ---
EXAM DESCRIPTION: Chest Radiography COMPARISON: CT abdomen pelvis November 14, 2019 CLINICAL HISTORY: [facility] COPD;Cough;Dyspnea FINDINGS: A single AP view of the chest demonstrates an enlarged cardiomediastinal silhouette. No pneumothorax or significant pleural effusion. Right lower lung opacities are present. Osseous structures are intact. IMPRESSION: Right lower lung opacities may represent asymmetric pulmonary edema or infection. Cardio megaly is present. Electronically signed by: Jamal Perez MD 07/31/2020 5:01 AM CDT Due to temporary technical issues with the PACS/Fluency reporting system, reports are being signed by the in house radiologist without review as a courtesy to ensure prompt reporting. The interpreting r adiologist is fully responsible for the content of the report.
[2020-07-31] MEDS ORDERED: ENOXAPARIN 40 MG/0.4 ML SQ SCH (10:59)
[2020-07-31] MEDS ORDERED: LEVALBUTEROL 1.25 MG/3 ML NEB NEB PRN ×2 (10:59→11:45)
[2020-07-31] MEDS ORDERED: IPRATROPIUM BROM 0.5MG/2.5ML NEB PRN ×2 (10:59→11:45)
[2020-07-31] MEDS: CODEINE 30MG/APAP 300MG TAB PO PRN ×3 (11:14→22:23)
[2020-07-31 11:35] LABS: Thyroid Stimulating Hormone 3.81 uIU/mL (0.360-3.740)
--- NOTE | 2020-07-31 14:06 | RAD REPORT ---
EXAM DESCRIPTION: US - Extrem Venous W Compress Geo - 07/31/2020 1:40 pm CLINICAL HISTORY: r/o DVTLeg pain and swelling bilateral COMPARISON: DVT study July 05 TECHNIQUE: Real-time sonographic evaluation of the bilateral lower extremity common femoral, superfi cial femoral, popliteal and posterior tibial veins was performed. FINDINGS: Normal compressibility, flow augmentation, phasic flow and spontaneous flow are identified in the left and right lower extremity common femoral, superficial femoral, popliteal and posterior t ibial veins. No intraluminal filling defects seen. Focal rim calcified 7 mm in size near the right a nkle. This is not regarded as significant. IMPRESSION: No DVT in either lower extremity.
[2020-07-31] MEDS: DULERA 200/5 (MOMETASONE/FORMOTEROL) INHALER IH SCH ×2 (14:38→19:58)
[2020-07-31 14:40] VITALS: BMI 60.2
--- NOTE | 2020-07-31 15:05 | RAD REPORT ---
EXAM DESCRIPTION: NM - Vent Perfusion VQ Scan - 07/31/2020 2:27 pm CLINICAL HISTORY: r/o PE, shortness of breath COMPARISON: Portable chest July 31 TECHNIQUE: The patient was administered 19.4 mCi Xenon 133 gas with posterior projection inspiration , equilibrium, and washout views obtained. The patient was then administered 6.3 mCi Tc-99m MAA label ed RBCs followed by standard 8 view protocol. FINDINGS: Focal diminished activity is present in the lower left lung field. There is a matching per fusion abnormality. Moderate bilateral air trapping present. Perfusion imaging shows multiple heterogeneous segmental and subsegmental sized areas of diminished a ctivity in both lung tate. Patient has a baseline of chronic interstitial lung disease. Perfusion abnormalities appear to be in excess of what would be expected for severity of interstitial disease. IMPRESSION: High probability V/Q scan for pulmonary embolism. Moderate severity bilateral air trapping
[2020-07-31] MEDS: METHYLPREDNISOLONE 40 MG INJ IV SCH (17:47)
[2020-07-31] MEDS ORDERED: INFLUENZA VACCINE (for 3y+) 0.5 ML DOSE IMVAC ONE (18:00)
[2020-07-31] MEDS: APIXABAN 5 MG TABLET PO SCH ×2 (19:58→20:45)
[2020-07-31] MEDS: LEVALBUTEROL 1.25 MG/3 ML NEB NEB PRN (20:50)
[2020-07-31] MEDS: IPRATROPIUM BROM 0.5MG/2.5ML NEB PRN (20:50)
[2020-07-31] MEDS ORDERED: CODEINE 30MG/APAP 300MG TAB PO ONE (23:00)
[2020-08-01] MEDS: METHYLPREDNISOLONE 40 MG INJ IV SCH (00:49)
[2020-08-01] MEDS: CODEINE 30MG/APAP 300MG TAB PO PRN ×2 (02:58→06:28)
[2020-08-01] MEDS: IPRATROPIUM BROM 0.5MG/2.5ML NEB PRN (03:10)
[2020-08-01] MEDS: LEVALBUTEROL 1.25 MG/3 ML NEB NEB PRN (03:10)
[2020-08-01 04:37] LABS: Absolute Lymphocytes (CBC) 0.9 K/uL (0.7-4.9); Basophils % 0.8 % (0-1.3); Hematocrit 33.9 % (36.0-45.0); MPV 8.8 fL (7.6-11.3); RBC Red Blood Cell Count 4.04 M/uL (3.86-4.86)
[2020-08-01 04:46] VITALS: O2SAT 92
[2020-08-01 04:52] LABS: ALT/SGPT 18 U/L (12-78); AST/SGOT 12 U/L (15-37); Albumin 3.1 g/dL (3.4-5.0); Alkaline Phosphatase 118 U/L (45-117); BUN Blood Urea Nitrogen 17 mg/dL (7-18); Bicarbonate 32 mmol/L (21-32); Bilirubin Total 0.2 mg/dL (0.2-1.0); Glucose Level 120 mg/dL (74-106); Magnesium 2.2 mg/dL (1.8-2.4); Potassium 4.8 mmol/L (3.5-5.1); Sodium Level 139 mmol/L (136-145)
[2020-08-01] MEDS ORDERED: PREGABALIN 150 MG CAP PO PRN (05:53)
[2020-08-01] MEDS ORDERED: ALPRAZOLAM 1 MG TABLET PO PRN (05:55)
[2020-08-01] MEDS ORDERED: Levofloxacin 750mg IV 750 MG/150 ML BAG IV SCH (06:00)
[2020-08-01 06:18] VITALS: BP 128/74; TEMP 97.5
--- NOTE | 2020-08-01 06:54 | EKG ---
Test Date: 2020-07-31 Test Time: 05:05:01 Mammographer: RITA MEASUREMENT RESULTS: Intervals: Rate: 65 PA: 150 QRSD: 88 QT: 436 QTc: 453 [place]: P: 44 PA: 150 QRS: 62 T: 61 INTERPRETIVE STATEMENTS: Normal sinus rhythm Normal ECG Compared to ECG 02/06/2020 06:45:31 Prolonged QT interval no longer present Electronically Signed On 08-01-20 06:52:57 CDT by Mahendra Howard
[2020-08-01] MEDS: APIXABAN 5 MG TABLET PO SCH (07:32)
[2020-08-01] MEDS ORDERED: carBAMazepine 200 MG TAB PO SCH (09:00)
--- NOTE | 2020-08-01 16:37 | P.DS ---
Admission Date: 07/31/20 Discharge Date: 08/01/20 Disposition: ROUTINE DISCHARGE Discharge Condition: FAIR Reason for Admission: Hypoxia, Pneumonia, COPD Exacerbation Consultations: Pulm - Dr. Stevens Procedures: CXR (07/31): enlarged cardiomediastinal silhouette. No pneumothorax or significant pleural effusion. Right lower lung opacities are present. Osseous structures are intact. IMPRESSION: Right lower lung opacities may represent asymmetric pulmonary edema or infection. Cardiomegaly is present. Bilateral venous ultrasound (07/31): No DVT in either lower extremity. V/Q scan (07/31): Focal diminished activity is present in the lower left lung field. There is a matching perfusion abnormality. Moderate bilateral air trapping present. Perfusion imaging shows multiple heterogeneous segmental and subsegmental sized areas of diminished activity in both lung tate. Patient has a baseline of chronic interstitial lung disease. Perfusion abnormalities appear to be in excess of what would be expected for severity of interstitial disease. IMPRESSION: High probability V/Q scan for pulmonary embolism. Moderate severity bilateral air trapping Problem List: Acute hypoxemic respiratory failure secondary to bilateral pulmonary emboli and COPD exacerbation Possible RLL pneumonia Chronic diastolic CHF HTN morbid obesity with hypoventilation obesity syndrome Chronic pain recent LLE ankle fusion Brief History of Present Illness: 50yo morbidly obese female, presents to ED due to ~3 days progressively worsening shortness of breath / dyspnea on exertion. CXR in ED concerning for possible RLL pneumonia vs unilateral pulmonary edema. Patient reports xopenex inhaler helped temporarily, but still feeling worse. She is chronically on 4L NC at home. She was noted to be hypoxic in 80s on 4 L NC. She recently had L ankle fusion in ~2 months ago, and is still non-weightbearing to the L ankle. She denies any worsening of her lower extremity swelling. ROS: +cough, +wheeze, no fever/chills, no chest pain, no abdominal pain, no vomiting/diarrhea, no worsening of lower extremity edema. Hospital Course: Patient was admitted and treated for possible right lower lobe pneumonia and COPD exacerbation is she had significant wheezing on exam. She has had recent immobility since her surgery in the end of May, and there is concern for the possibility of pulmonary emboli. Patient was allergic to IV dye, so she underwent V/Q scan. V/Q scan returned with a high probability for pulmonary emboli. Patient was started on Eliquis. The following morning and she was breathing much more comfortably on 3-4 L nasal cannula, which is her baseline home oxygen requirement. She reported feeling much better and was demanding to be discharged. Stated she was having issues with her husbands health. She was advised to stay to undergo echocardiogram, received her morning dose of Eliquis, and Eliquis coupon card in case there is an issue with her insurance coverage. The patient initially refused hold this and demanded to be released against medical advice. Her diagnoses and the risk of were explained to the patient, she reported understanding and still wanted to leave. She signed AMA paperwork. She was able to be convinced to stay for at least the morning Eliquis dose. Although she agreed to stay for the Eliquis card, she left prior to receiving this. Pulmonology was consulted and ordered for noninvasive ventilator for the patient, which she did not want to wait for either. Bilateral venous Dopplers were negative for DVT. Prescription for Eliquis, Levaquin, and steroids were sent to her pharmacy electronically. States she has an appointment in a few days with Dr. Stevens. Vital Signs/Physical Exam: Physical Exam: Gen: NAD, agitated, AAOx3 HEENT: normal conjunctiva, sclera anicteric Pulm: diminished at bases bilaterally, no wheeze on exam. nonlabored on 3 L NC CV: RRR, no murmur Abd: soft, NTND Ext: 1+ edema to b/l lower extremities. LLE: foot/ankle splint in place, dressing removed: well healing surgical scar on medial aspect, and healing lateral scar with some slight scabbing, no purulent drainage, no induration, no significant erythema surrounding Temp Pulse Resp BP Pulse Ox 97.5 F 55 22 H 128/74 95 08/01/20 04:00 08/01/20 04:00 08/01/20 06:28 08/01/20 04:00 08/01/20 06:28 Laboratory Data at Discharge: WBC 5.50 K/uL (4.3-10.9) 08/01/20 03:47 Hgb 10.5 g/dL (12.0-15.0) L 08/01/20 03:47 Hct 33.9 % (36.0-45.0) L 08/01/20 03:47 Plt Count 180 K/uL (152-406) 08/01/20 03:47 PT 11.3 SECONDS (9.5-12.5) 07/31/20 06:00 INR 0.98 07/31/20 06:00 APTT 27.8 SECONDS (24.3-36.9) 07/31/20 06:00 Sodium 139 mmol/L (136-145) 08/01/20 03:47 Potassium 4.8 mmol/L (3.5-5.1) 08/01/20 03:47 BUN 17 mg/dL (7-18) 08/01/20 03:47 Creatinine 0.56 mg/dL (0.55-1.3) 08/01/20 03:47 Glucose 120 mg/dL (74-106) H 08/01/20 03:47 Magnesium 2.2 mg/dL (1.8-2.4) 08/01/20 03:47 Total Bilirubin 0.2 mg/dL (0.2-1.0) 08/01/20 03:47 AST 12 U/L (15-37) L 08/01/20 03:47 ALT 18 U/L (12-78) 08/01/20 03:47 Alkaline Phosphatase 118 U/L (45-117) H 08/01/20 03:47 Home Medications: RX: Acetaminophen with Codeine [Tylenol with Codeine #4 Tablet] 1 tab PO Q4H PRN 07/31/20 RX: Carbamazepine [Equetro] 200 mg PO TID 07/31/20 RX: Losartan Potassium [Cozaar] 25 mg PO DAILY 07/31/20 RX: Montelukast [Singulair*] 10 mg PO DAILY 07/31/20 RX: Pregabalin [Lyrica] 300 mg PO TID 07/31/20 RX: Promethazine HCl 25 mg PO Q6H PRN 07/31/20 Apixaban [Eliquis] 5 mg PO SEECOM 30 Days #1 tab.ds.pk 08/01/20 levoFLOXacin [Levaquin] 750 mg PO DAILY 7 Days #7 tab 08/01/20 predniSONE [Prednisone] 20 mg PO SEECOM 8 Days #12 tablet 08/01/20 New Medications: Apixaban [Eliquis] 5 mg PO SEECOM 30 Days #1 tab.ds.pk levoFLOXacin [Levaquin] 750 mg PO DAILY 7 Days #7 tab predniSONE [Prednisone] 20 mg PO SEECOM 8 Days #12 tablet Diet: ADA Activity: Touch-down (left foot) Followup: Henry Stevens MD [ACTIVE - CAN ADMIT] - Unknown,U [Primary Care Provider] - Time spent managing pt's care (in minutes): 35
== END 2020-08-01 07:42 | disposition home or self-care (01) | DRG 193 ==
LOC: ER 04:06 → ERHOLD 07:28 → 2ND 11:40
PROVIDERS: ADMIT Hospitalist; ATTEND Hospitalist
DX: J18.9 Pneumonia, unspecified organism (principal); I26.99 Other pulmonary embolism without acute cor pulmonale; J96.01 Acute respiratory failure with hypoxia; J96.02 Acute respiratory failure with hypercapnia; J44.1 Chronic obstructive pulmonary disease with (acute) exacerbation; J44.0 Chronic obstructive pulmonary disease with (acute) lower respiratory infection; I50.32 Chronic diastolic (congestive) heart failure; E66.2 Morbid (severe) obesity with alveolar hypoventilation; Z68.44 Body mass index [BMI] 60.0-69.9, adult; I11.0 Hypertensive heart disease with heart failure; F17.210 Nicotine dependence, cigarettes, uncomplicated; G89.29 Other chronic pain; D64.9 Anemia, unspecified; Q74.2 Other congenital malformations of lower limb(s), including pelvic girdle; K21.9 Gastro-esophageal reflux disease without esophagitis; Z88.5 Allergy status to narcotic agent; Z88.0 Allergy status to penicillin; Z88.8 Allergy status to other drugs, medicaments and biological substances; Z79.01 Long term (current) use of anticoagulants; Z91.041 Radiographic dye allergy status; Z79.899 Other long term (current) drug therapy; Z79.52 Long term (current) use of systemic steroids; Z90.49 Acquired absence of other specified parts of digestive tract; Z90.710 Acquired absence of both cervix and uterus; Z85.528 Personal history of other malignant neoplasm of kidney; Z20.822 Contact with and (suspected) exposure to COVID-19
CPT/HCPCS: 36415; 71045; 78582; 80048; 80053; 82805; 83735; 83880; 84439; 84443; 84484; 85025; 85610; 85730; 87040; 93005; 93970; 94640; 94760; 96374; 96375; 97161; 99284; A9540; A9558; J1650; J2175; J2920; J2930; J7606; U0003

== ENCOUNTER 2020-08-04 11:52 | Emergency (ER) | payer OTHER ==
[2020-08-04] MEDS ORDERED: ETOMIDATE 20 MG/10 ML VIAL IV ONE (11:53)
[2020-08-04] MEDS ORDERED: ROCURONIUM 50 MG/5 ML VIAL IV ONE (11:53)
--- OUTSIDE RECORDS SUMMARY | 2020-08-04 11:56 | XMS REPORT | Continuity of Care Document ---
:1970 Author Organization [facility] t Address [address] [place] [address] Care Team Providers Name Role Phone Clause [...] Type Date Date Clinician fentanyl DA Active [place] [facility] 5-27 [place] 00:00: d 00 [facility] [place] Iodinate DA Active SV 2018-05 [facility] d 05-03 Clear Contrast 00:00: Champagne Media 00 [facility] NSAIDS DA Active SV 2018-05 [facility] (Non-Remigio 05-03 Clear roidal 00:00: Champagne Anti-Inf 00 [facility] Penicill DA Active SV 2018-05 [facility] ins 05-03 Clear 00:00: Champagne 00 [facility] morphine DA Active SV 2018-05 [facility] 05-03 Clear 00:00: Champagne 00 [facility] aspirin DA Active U 2018-05 [facility] 05-03 Clear 00:00: Champagne 00 [facility] hydromor DA Active SV 2018-[address] [facility] phone 05-03 Clear 00:00: Champagne 00 [facility] shellfis FA Active SV 2018-05 [facility] h 05-03 Clear derived 00:00: Champagne 00 [facility] No Known DA Active U 2007- [facility] Contrast 12-11 [place] Allergie 00:00: d s [facility] No Known DA Active U 2008-0 [...] Type Clinicians Facility Department ID 2020-05-22 2020-05-22 [facility] 1.2.840.114 [id number] 07:34:00 15:25:00 Encounter Jigar Chang 350.1.13.10 [place] 4.2.7.2.686 [place] [id number] [place] [address] ([facility]) 2020-05-22 2020-05-22 Orders Doctor VIPUL 1.2.840.114 [id number] 00:00:00 00:00:00 Only Unassigned, MARCUS 350.1.13.10 [facility] 4.2.7.2.686 [id number] [id number] 2020-05-22 2020-05-22 Prep For VIPUL Jurado 1.2.840.114 [id number] 057 00:00:00 00:00:00 Surgery Jigar VELAZQUEZ 350.1.13.10 [facility] 4.2.7.2.686 [id number] 015 2020-05-22 2020-05-22 Prep For VIPUL Jurado 1.2.840.114 [id number] 00:00:00 00:00:00 Surgery Jigar VELAZQUEZ 350.1.13.10 [facility] 4.2.7.2.686 [id number] 2020-05-21 2020-05-21 [facility] Adrien [facility] 1.2.840.114 [id number] 570 13:50:34 23:59:00 Encounter Jigar [facility] 350.1.13.10 [place] 4.2.7.2.[address] [phone] [facility] 807 ([facility]) 2020-05-21 2020-05-21 [facility] 1.2.840.114 [id number] 13:50:10 14:05:10 Visit Health 350.1.13.10 Clear 4.2.7.2.[address] [phone] [facility] 353 ([facility]) Results Test Description Test Time Test Comments Results Result Comments Source SURG 2020-03-14 16:03:00 Test Item Value Reference Range Interpretation Comme nts SURG RUN DATE: (test 03/14/20 H CA [facility] - LAB PAGE 1 RUN TIME: 1603 code = Specim en Inquiry RUN USER: INTERFACE SURG) PATIENT: MARCELLE WEISS Adryan LOC: [place]IE U #: [id number] AGE/SX: 50/F ROOM: RE03/13/20REG DR: Tyler Clemens MD : 72 BED: DIS: STATUS: DEP [facility] [place]: SPEC #: [id number] RECD: STATUS: LEILA MARSH #: [id number] RADHA: 03/13/20 [facility] DR: Tyler Clemens MD ENTERED: 03/13/20 SP TYPE: SURG OTHR DR : Adele York MD ORDERED: SURG PATH LVL 08/03 COPIES TO: Tyler Clemens MD [address] [place], [place] [address] Adele York MD [address] [place] [address] HISTOLO GY: TISSUE ID BLK PCS MANOJ LEV PROCEDURE DISPOSITION ____ _ ___ ___ ___ SMALL INTESTINE A 1 2 GASTRIC ANTRUM B 1 2 STOMACH, NOS C 1 2 PROCEDURES: SURG PATH LVL 4 (03/13/20) TISSUES: A. SMALL INTESTINE, NOS - SMALL BOWEL BIOPSY B. GASTRIC ANTRUM - ANTRUM BIOPSY C. STOMACH, NOS - BODY BIOPSY CPT CODES CPT CODE(S): 92171W0 , , , , , , FINAL DIAGNOSIS A. Small intestine, biopsy: DUODENUM WITH UNREMARKABLE V ILLI B. Stomach, antrum, biopsy: ACUTE GASTRITIS WITH SURFACE ULCERATION NEGATIV E FOR INTESTINAL METAPLASIA, DYSPLASIA, OR MALIGNANCY NEGATIVE FOR HELICOBACTER PYLORI ORGANISM S C. Stomach, body, biopsy: CONTINUED ON NEXT PAGE RUN DATE: 03/14/20 [facility] - LAB PAGE 2 RUN TIME: 1603 Specimen Inquiry RUN USER: INTERFACE SPEC #: [facility]:[id number] PATIENT: MARCELLE WEISS #[id number] (Continued) -- FINAL DIAGNOSIS (Continued) MILD CHRONIC [...] all as C. ba/nr Grossing performed at [facility] Pathology, [address] [place] [address], [address], [place] [address] Man: Nickolas Steel M.D. MICROSCOPIC DESCRIPTION A. Small [...] 1603 END OF REPORT COVID 19 INHOUSE [id number] 13:44:00 Test Item Value Reference Range Interpretation Comments COVID 19 INHOUSE AG NEGATIVE Negative Per manu facturer, (test code = negative result s should [id number]) be treated aspr esumptive and, if inconsi [...] symptoms co nsistent with COVID-19. CBC W/AUTO [id number] 13:13:00 Test Item Value Reference Range Interpretation [...] DIFF/SCN CRITERIA = MDIFF) Novel Coronavirus 2018 [id number] 21:08:00 Test Item Value Reference Range Interpretation Comments Novel Coronavirus 2019 Inhouse (test Negative Negative code = COVNONPUI) COMPREHENSIVE METABOLIC [id number] 09:36:00 Test Item Value Reference Range Interpretation [...] TOTAL (test code = ALKP) HCG SERUM [id number] 09:36:00 Test Item Value Reference Range Interpretation Comments HCG SERUM QUAL (test code = SERUM NEGATIVE NEGATIVE HCGQL) - XR CHEST 2 [id number] 09:35:00 FAX: Jigar Velasco [facility] [phone] [place]: St: PRE FAX: Adele Hernández MD [phone] Name: MARCELLE WEISS [facility] : 1970 Age/S: 49/F [address] [place] [address] Unit #: [id number] Loc: [place] [address] Phys: Jigar Jurado DPM Acct: [id number] Dis Date: Status: PRE SDC PHONE #: [phone] Exam Date: 09/27/2019930 FAX #: [phone] Reason: PREOP- PAIN D/T ORTHOPEDIC IMPLANT EXAMS: CPT CODE: [id number] XR CHEST 2 V 98539 Two-view chest: HISTORY: Preoperative clearance for painful orthopedic implant. FINDINGS: Stable mild cardiomegaly compared with 05/07/2019. Development of areas of bibasilar subsegmental atelectasis. No pleural effusion or bony pathology IMPRESSION: Bibasilar s ubsegmental atelectasis SL: [id number] at 0935 Reported and signed by: Sammy Branham M.D. CC: Jigar Jurado DPM; Adele York MD Technologist: Diamond Castro, RT(R) Trnscrd Date/Time/By: 09/27/2019 (0929) : By: SomETG Orig Print D/T: S: 09/27/2019 (2695) PAGE 1 Signed ReportCOMPREHENSIVE METABOLIC [id number] 09:28:00 Test Item Value Reference Range Interpretation [...] IUnit/L 20-125 code = ALKP) HCG SERUM [id number] 09:28:00 Test Item Value Reference Range Interpretation Comments HCG SERUM QUAL (test code = SERUM NEGATIVE NEGATIVE HCGQL) CBC W/AUTO [id number] 09:21:00 Test Item Value Reference Range Interpretation [...] (test NO code = MDIFF) BASIC METABOLIC [id number] 09:50:00 Test Item Value Reference Range Interpretation [...] = CA) 9.5 MG/DL 8.5-10.1 N VANCOMYCIN [id number] 21:06:00 Test Item Value Reference Range Interpretation Comments VANCOMYCIN TROUGH (test code = 19.1 mcG/ML 10-20 N VANCT) GLUCOSE BEDSIDE [id number] 20:17:00 Test Item Value Reference Range Interpretation Comments GLUCOSE BEDSIDE TESTING (test code = 84 mg/dL 70-110 N GLUBED) - NM BONE 3 [id number] 19:51:00 FAX: Dwight Parrish MD [place]: PM St: ADM FAX: Bettye Alves MD [phone] Name: MARCELLE WEISS [facility] : 1970 Age/S: 49/F [address] [address] [place] Unit #: [id number] Loc: [address] [address] Phys: Bettye Mullins MD Acct: [id number] Dis Date: Status: ADM IN PHONE #: [phone] Exam Date: 05/09/2019 1539 FAX #: Reason: OM ANDHARDWARE INFECTION LEFT ANKLE EXAMS: CPT: [id number] NM BONE 3 PHASE 82042 EXAM: - NM BONE 3 PHASE HISTORY: [...] <2 ng/mL are obtai emily. BASIC METABOLIC [id number] 14:15:00 Test Item Value Reference Range Interpretation [...] represent s a high risk of se imke sepsis and/or s eptic shock.Neverthel ess, concentrations [...] <2 ng/mL are obtai emily. CBC W/AUTO [id number] 07:54:00 Test Item Value Reference Range Interpretation [...] code = NO DIFF/SCN CRITERIA MDIFF) SED [id number] 07:54:00 Test Item Value Reference Range Interpretation Comments SED RATE (test code = SEDW) 19 mm/hr 0-20 N BASIC METABOLIC [id number] 06:17:00 Test Item Value Reference Range Interpretation [...] (test code = ng/ml PROCAL) CBC W/AUTO [id number] 06:08:00 Test Item Value Reference Range Interpretation [...] code = NO DIFF/SCN CRITERIA MDIFF) SED [id number] 06:08:00 Test Item Value Reference Range Interpretation Comments SED RATE (test code = SEDW) mm/hr 0-20 [id number] 02:57:00 Test Item Value Reference Range Interpretation [...] may basilio yby method. Completed by Nursing: [id number] 23:57:00 Test Item Value Reference Range Interpretation [...] by Nursing: OSVALDO RFLX MICR CULT IF [id number] 18:41:00 Test Item Value Reference Range Interpretation [...] for culture: Dysuria/FrequencyUA RFLX MICR CULT IF [id number] 18:41:00 Test Item Value Reference Range Interpretation [...] CLEAN CATCHIndication for culture: Dysuria/Frequency COMPREHENSIVE METABOLIC [id number] 18:23:00 Test Item Value Reference Range Interpretation [...] TOTAL (test code = ALKP) CBC W/AUTO [id number] 18:03:00 Test Item Value Reference Range Interpretation [...] = NO DIFF/SCN CRITERIA MDIFF) LACTIC ACID [id number] 17:58:00 Test Item Value Reference Range Interpretation Comments LACTIC ACID POC (test code = 1.93 MMOL/L 0.90-1.70 H LACTP) - XR ANKLE 3+V [id number] 17:50:00 Name: MARCELLE WEISS [facility] : 1970 Age/S: 49 / F [address] [address] [place] Unit #: [id number] Loc: [place] [address] Phys: Aletha Valerio MD Acct: [id number] Dis Date: Status: REG ER PHONE #: [phone] Exam Date: 05/07/2019 2141 FAX #: Reason: ankle EXAMS: CPT: [id number] XR ANKLE 3+[place] [address] Fluoro Time: DAP (Gy m2): Air Kerma [...] 1 Signed Report Name: MARCELLE WEISS [facility] : 1970 Age/S: 49 / F [address] [address] [place] Unit #: [id number] Loc: [place] [address] Phys: Aletha Valerio MD Acct: [id number] Dis Date: Status: REG ER PHONE #: [phone] Exam Date: 05/07/2019 1740 FAX #: Reason:ankle EXAMS: CPT: [id number] XR ANKLE 3+[place] [address] Fluoro Time: DAP (Gy m2): Air Kerma (mGy): <Continued> Technologist: RT Charles(R)(MR) Trnscb Date/Time: 05/07/2019 (1749) 16 Orig Print D/T: S: 05/07/2019 (1753) PAGE 2 Signed Report- XR CHEST 1 [id number] 17:40:00 Name: ABHISHEKMARCELLE Adryan [facility] : 1970 Age/S: 49 / F [address] [address] [place] Unit #: [id number] Loc: [place] [address] Phys: Aletha Valerio MD Acct: [id number] Dis Date: Status: REG ER PHONE #: [phone] Exam Date: 05/07/2019 1710 FAX #: Reason: infection EXAMS: CPT: [id number] XR CHEST 1 V 80264 Fluoro Time: DAP (Gy m2): Air Kerma [...] 1 Signed Report Name: MARCELLE WEISS [facility] : 1970 Age/S: 49 / F [address] [address] Unit #: [id number] Loc: [place] [address] Phys:Aletha Valerio MD Acct: [id number] Dis Date: Status: REG ER PHONE #: [phone] Exam Date: 05/07/2019 1710 FAX #: Reason: infection EXAMS: CPT: [id number] XR CHEST1 V 81019 Fluoro Time: DAP (Gy m2): Air Kerma (mGy): <Continued> Technologist: Miguel Enamorado RT(R)(MR) Trnscb Date/Time: 05/07/2019 (174) SomMD16 Orig Print D/T: S: 05/07/2019 (9487) PAGE 2 Signed ReportPROCALCITONIN (PCT)2019-04-27 03:09:00 Test [...] concentrations <2 ng/mL are obtai emily. SED [id number] 13:10:00 Test Item Value Reference Range Interpretation Comments SED RATE (test code = SEDW) 30 mm/hr 0-20 H [id number] 02:18:00 Test Item Value Reference Range Interpretation [...] may basilio yby method. Completed by Nursing: [id number] 23:37:00 Test Item Value Reference Range Interpretation [...] yby method. Completed by Nursing: NOCHEMISTRY 8 [id number] 22:03:00 Test Item Value Reference Range Interpretation [...] 58-135 N code = GFRBED) CHEMISTRY 8 [id number] 22:03:00 Test Item Value Reference Range Interpretation [...] code = GFRBED) - CT CHEST W/O [id number] 21:11:00 Name: MARCELLE WEISS [facility] : 1970 Age/S: 49 / F [address] [address] [place] Unit #: [id number] Loc: [place] [address] Phys: Uday Maya MD Acct: [id number] Dis Date: Status: ADM IN PHONE #: [phone] Exam Date: 04/25/20192042 FAX #: Reason: lung mass EXAMS: CPT: [id number] CT CHEST W/O CONTRAST 78050 Exam: CT thorax without contrast. Location: H [...] 1 Signed Report (CONTINUED) Name: ABHISHEKMARCELLE Adryan [facility] : 1970 Age/S: 49 / F [address] [address] [place] Unit #: [id number] Loc: [place] [address] Phys: Uday Maya MD Acct: [id number] Dis Date: Status: ADM IN PHONE #: [phone] Exam Date: 04/25/20192042 FAX #: Reason: lung mass EXAMS: CPT: [id number] CT CHEST W/O CONTRAST 36691 <Continued> CC: Uday Maya MD; Aletha Valerio [...] TOTAL (test code = ALKP) CBC W/AUTO [id number] 20:01:00 Test Item Value Reference Range Interpretation [...] = NO DIFF/SCN CRITERIA MDIFF) TROPONIN I [id number] 19:58:00 Test Item Value Reference Range Interpretation Comments TROPONIN I RAPID 0.00 ng/mL 0.00-0.08 N - The use o f serial (test code = sampling and te sting TROPIRAP) protocol is a recommended pra ctice- An elevated tro ponin level alone is often not sufficient for diagnosis of my ocardial infarction. LACTIC ACID [id number] 19:58:00 Test Item Value Reference Range Interpretation Comments LACTIC ACID POC (test code = 1.43 MMOL/L 0.90-1.70 N LACTP) - XR CHEST 1 [id number] 19:42:00 Name: MARCELLE WEISS [facility] : 1970 Age/S: 49 / F [address] [address] [place] Unit #: [id number] Loc: [place] [address] Phys: Aletha Valerio MD Acct: [id number] Dis Date: Status: REG ER PHONE #: [phone] Exam Date: 04/25/2019 192 FAX #: Reason: Suspected Sepsis EXAMS: CPT: [id number] XR CHEST 1 V 01149 Fluoro Time: DAP (Gy m2): Air Kerma [...] 1 Signed Report Name: MARCELLE WEISS [facility] : 1970 Age/S: 49 / F [address] [address] [place] Unit #: [id number] Loc: [place] [address] Phys: Aletha Valerio MD Acct: [id number] Dis Date: Status: REG ER PHONE #: [phone] Exam Date: 04/25/20191919 FAX #: Reason: Suspected Sepsis E XAMS: CPT: [id number] XR CHEST 1 V 52743 Fluoro Time: DAP (Gy m2): Air Kerma (mGy): <Continued> Technologist: David Cole RT(R)(CT) TrnscbDate/Time: 04/25/2019 (1941) tZACHERYR.GS29 Orig Print D/T: S: 04/25/2019 (1945) PAGE 2 Signed ReportBASIC METABOLIC [id number] 06:51:00 Test Item Value Reference Range Interpretation [...] CA) 8.8 MG/DL 8.5-10.1 N CBC W/AUTO [id number] 06:27:00 Test Item Value Reference Range Interpretation [...] = NO DIFF/SCN CRITERIA MDIFF) BASIC METABOLIC [id number] 18:56:00 Test Item Value Reference Range Interpretation [...] CA) 9.0 MG/DL 8.5-10.1 N BASIC METABOLIC [id number] 18:53:00 Test Item Value Reference Range Interpretation [...] CA) 9.0 MG/DL 8.5-10.1 N CBC W/AUTO [id number] 18:52:00 Test Item Value Reference Range Interpretation [...] = NO DIFF/SCN CRITERIA MDIFF) CBC W/AUTO [id number] 07:16:00 Test Item Value Reference Range Interpretation [...] = NO DIFF/SCN CRITERIA MDIFF) BASIC METABOLIC [id number] 07:11:00 Test Item Value Reference Range Interpretation [...] CA) 8.7 MG/DL 8.5-10.1 N BASIC METABOLIC [id number] 11:01:00 Test Item Value Reference Range Interpretation [...] CA) 8.6 MG/DL 8.5-10.1 N CBC W/AUTO [id number] 10:24:00 Test Item Value Reference Range Interpretation [...] = NO DIFF/SCN CRITERIA MDIFF) BASIC METABOLIC [id number] 05:56:00 Test Item Value Reference Range Interpretation [...] CA) 8.8 MG/DL 8.5-10.1 N CBC W/AUTO [id number] 05:51:00 Test Item Value Reference Range Interpretation [...] = NO DIFF/SCN CRITERIA MDIFF) CBC W/AUTO [id number] 06:08:00 Test Item Value Reference Range Interpretation [...] = NO DIFF/SCN CRITERIA MDIFF) BASIC METABOLIC [id number] 05:55:00 Test Item Value Reference Range Interpretation [...] = CA) 9.0 MG/DL 8.5-10.1 N VANCOMYCIN [id number] 14:35:00 Test Item Value Reference Range Interpretation Comments VANCOMYCIN TROUGH (test code = 17.4 mcG/ML 10-20 N VANCT) BASIC METABOLIC [id number] 06:49:00 Test Item Value Reference Range Interpretation [...] CA) 8.5 MG/DL 8.5-10.1 N CBC W/AUTO [id number] 06:44:00 Test Item Value Reference Range Interpretation [...] DIFF/SCN CRITERIA MDIFF) - US GUIDANCE VASC [id number] 13:25:00 Name: MARCELLE WEISS [facility] : 1970 Age/S: 49 / F [address] [address] [place] Unit #: [id number] Loc: [place] [address] Phys: Theodore Gonzalez MD Acct: [id number] Dis Date: Status: ADM IN PHONE #: [phone] Exam Date: 03/29/2019 1558 FAX #: Reason: PICC LINE PLACEMENT EXAMS: CPT: [id number] US GUIDANCE VASC ACCESS 42225 Examination: PICC line insertion Location code: S17 Comparison: None strike on machine operator: Tamra Value Analysis Coordinator: None Sedation: None Anesthesia: 1% lidocaine subcutaneous [...] 1 Signed Report (CONTINUED) Name: ABHISHEKMAYITOBREANA Cornelius [facility] : 1970 Age/S: 49 /F [address] [facility] Unit #: [id number] Loc: [place] [address] Phys: Theodore Gonzalez MD Acct: [id number] Dis Date: Status: ADM IN PHONE #: [phone] Exam Date: 03/29/2019 1550 FAX #: Reason: PICC LINE PLACEMENT EXAMS: CPT: [id number] US GUIDANCE VASC ACCESS 22330 <Continued> Impression: Successful ultrasound and fluoroscopic guided right basilic PICC line placement. at 1325 Reported and signed by: Camacho Barboza M.D. CC: Theodore Gonzalez MD; Adele York MD Technologist: RT Kris(R),DAPHNIE(AB) Trnscb Date/Time: 03/29/2019 (1329) tJAMEE.JH12 PAGE 2 Signed Report Name: MARCELLE WEISS [facility] : 1970 Age/S: 49 / F [address] [facility] Unit #: [id number] Loc: [place] [address] Phys: Theodore Gonzalez MD Acct: [id number] Dis Date: Status: ADM IN PHONE #: [phone] Exam Date: 03/29/2019 1550 FAX #: Reason: PICC LINE PLACEMENT EXAMS: CPT: [id number] US GUIDANCE VASC ACCESS 11263 <Continued> Orig Print D/T: S: 03/29/2019 (6630) Probe: PAGE 3 Signed Report- FLUORO GUID CTRL ACC [id number] 13:25:00 Name: MARCELLE WEISS [facility] : 1970 Age/S: 49 / F [address] [address] Unit #: [id number] Loc: [place] [address] Phys: Bettye Mullins MD Acct: [id number] Dis Date: Status: ADM IN PHONE #: [phone] Exam Date: 03/29/2019 1301 FAX #: Reason: prolonged antibx EXAMS: CPT: [id number] FLUORO GUID CTRL ACC DEV 17682 Fluoro Time: DAP (Gy m2): Air Kerma (mGy): Examination: PICC line insertion Location code: S17 Comparison: None strike on machine operator: Tamra Value Analysis Coordinator: None Sedation: None Anesthesia: 1% lidocaine subcutaneous [...] Signed Report (CONTINUED) Name: MARCELLE WEISS [facility] : 1970 Age/S: 49 / F [address] [place] [address] Unit #: [id number] Loc: [place] [address] Phys: Bettye Mullins MD Acct: [id number] DisDate: Status: ADM IN PHONE #: [phone] Exam Date: 03/29/2019 1301 FAX #: Reason: prolonged antibx EXAMS: CPT: [id number] GUID CTRL ACC DEV 10093 Fluoro Time: DAP (Gy m2): Air Kerma (mGy): <Continued> Successful ultrasound and fluoroscopic guided right basilic PICC line placement. at 1325 Reported and signed by: Camacho Barboza M.D. CC: Theodore Gonzalez MD; Bettye Mullins MD; Adele York MD PAGE 2 Signed Report Name:MARCELLE WEISS [facility] : 1970 Age/S: 49 / F [address] [place] [address] Unit #: [id number] Loc: [place] [address] Phys: Bettye Mullins MD Acct: [id number] Dis Date: Status: ADM IN PHONE #: [phone] Exam Date: 03/29/2019 1301 FAX #: Reason: prolonged antibx EXAMS: CPT: [id number] FLUORO GUID CTRL ACC DEV 74885 Fluoro Time: DAP(Gy m2): Air Kerma (mGy): <Continued> Technologist: Ashlyn Maldonado RT(R)(MR) Trnscb Date/Time: 03/29/2019 (1325) [id number] Orig Print D/T: S: 03/29/2019 (0736) PAGE 3 Signed ReportVANCOMYCIN [id number] 00:16:00 Test Item Value Reference Range Interpretation Comments VANCOMYCIN TROUGH (test code = 20.7 mcG/ML 10-20 H VANCT) BASIC METABOLIC [id number] 09:06:00 Test Item Value Reference Range Interpretation [...] CA) 8.6 MG/DL 8.5-10.1 N CBC W/AUTO [id number] 08:47:00 Test Item Value Reference Range Interpretation [...] CRITERIA MDIFF) Comment: postop- XR FLUOROSCOPY 0-60 [id number] 15:46:00 Name: MAYITO WEISSBREANA Cornelius [facility] : 1970 Age/S: 49 / F [address] [address] [place] Unit #: [id number] Loc: [place] [address] Phys: Abilio Maldonado MD Acct: [id number] Dis Date: Status: [facility] PHONE #: [phone] Exam Date: 03/27/2019 0940 FAX #: Reason: LEFT ANKLE I D WITH ANTIBIOTIC BEADS EXAMS: CPT: [id number] XR FLUOROSCOPY 0-60 MIN 88756 Fluoro Time: 4 SEC DAP (Gy m2): [...] PAGE 1 Signed Report Name: MARCELLE WEISS [facility] [place] : 1970 Age/S: 49 / F [address] [address] [place] Unit #: [id number] Loc: [place] [address] Phys: Abilio Maldonado MD Acct: [id number] Dis Date: Status: CAN SDC PHONE #: [phone] Exam Date: 03/27/2019 0940 FAX #: Reason: LEFT ANKLE I D WITH ANTIBIOTIC BEADS EXAMS: CPT: [id number] XR FLUOROSCOPY 0-60 MIN 47089 Fluoro Time: 4 SEC DAP (Gy m2): Air Kerma (mGy): <Continued> Technologist: Lisa Machuca, RT(R) Trnscb Date/Time: 03/27/2019 (1546) SomJH12 Orig Print D/T: S: 03/27/2019 (8424) PAGE 2 Signed ReportUR HCG [id number] 06:57:00 Test Item Value Reference Range Interpretation Comments UR HCG QUAL (test code = HCGQLU) NEGATIVE NEGATIVE UA RFLX MICR CULT IF [id number] 06:54:00 Test Item Value Reference Range Interpretation [...] culture: Flank PainUA RFLX MICR CULT IF [id number] 06:54:00 Test Item Value Reference Range Interpretation [...] CLEAN CATCHIndication for culture: Flank PainBASIC METABOLIC [id number] 08:09:00 Test Item Value Reference Range Interpretation [...] CA) 8.9 MG/DL 8.5-10.1 N VITAMIN D [id number] 08:09:00 Test Item Value Reference Range Interpretation Comments VITAMIN D 33.2 ng/mL 30.0-100.0 Vitamin D defic iency has 25-HYDROXY (test been define d by the code = VITD25) [place] [facility] edicine and an Endocrine So ciety practice guidel ine as alevel of serum 25-OH vitamin D less than 20 ng/mL (1,2).The Endocrine Society went on to further define vitamin Dinsufficiency as a level between 21 and 29 ng/mL (2).1. IOM (Ins [facility] [place] [facility] of [facility]). 2010 . Dietary reference int akes for calcium and D. [place]: The [employer] .2. Caitlin MF, Jerrell AMOR, [place] i ROLLINS, et al. Evaluatio n, treatment, and prevention of vitamin D deficiency: an Endocrine Society clinica l practice guideline. ALLY EM. 2010; 96(0):5111-30.P erformed At: [facility] Rkyagxq1326 [place], [place] [id number] Abilio Rosales MD Ph:[phone] CBC W/AUTO [id number] 13:29:00 Test Item Value Reference Range Interpretation [...] code = NO DIFF/SCN CRITERIA MDIFF) SED [id number] 13:29:00 Test Item Value Reference Range Interpretation Comments SED RATE (test code = SEDW) 10 mm/hr 0-20 N URINALYSIS [id number] 13:12:00 Test Item Value Reference Range Interpretation [...] LEUU) Urine Specimen Type: Clean CatchC REACTIVE [id number] 12:47:00 Test Item Value Reference Range Interpretation Comments C REACTIVE PROTEIN (test code = 1.260 MG/DL 0.000-0.3 H CRP) BASIC METABOLIC [id number] 12:46:00 Test Item Value Reference Range Interpretation [...] CA) 8.9 MG/DL 8.5-10.1 N VITAMIN D [id number] 12:46:00 Test Item Value Reference Range Interpretation Comments VITAMIN D 25-HYDROXY (test code = VITD25) PROTHROMBIN [id number] 12:33:00 Test Item Value Reference Range Interpretation Comments PT PATIENT (test code = PTP) 11.4 SECONDS 9.3-12.9 N INTERNATIONAL NORMAL RATIO 0.99 INR Unit 0.8-1.2 N (test code = INR) THROMBOPLASTIN TIME [id number] 12:33:00 Test Item Value Reference Range Interpretation Comments THROMBOPLASTIN TIME PARTIAL 29.0 SECONDS 26-35 N (test code = PTT) CBC W/AUTO [id number] 12:32:00 Test Item Value Reference Range Interpretation [...] code = NO DIFF/SCN CRITERIA MDIFF) SED [id number] 12:32:00 Test Item Value Reference Range Interpretation Comments SED RATE (test code = SEDW) mm/hr 0-20 - XR CHEST 1 [id number] 12:00:00 Name: ABHISHEKMARCELLE [facility] : 1970 Age/S: 49 / F [id number] [place] Unit #: [id number] Loc: [place] [address] Phys: Abilio Maldonado MD Acct: [id number] Dis Date: Status: PRE SDC PHONE #: [phone] Exam Date: 03/03/2019 1152 FAX #: Reason: PRE OP EXAMS: CPT: [id number] XR CHEST 1 V 91665 Fluoro Time: DAP (Gy m2): Air Kerma [...] 1 Signed Report Name: MARCELLE WEISS [facility] : 1970 Age/S: 49 / F [id number] [address] [place] Unit #: [id number] Loc: [place] [address] Phys: Abilio Maldonado MD Acct: [id number] Dis Date: Status: [place] [facility] [place] #: [phone] Exam Date: 03/03/2019 1152 FAX #: Reason: PRE OP EXAMS: CPT: [id number] XR CHEST 1 V 89849 Fluoro Time: DAP (Gy m2): Air Kerma (mGy): <Continued> Technologist: Kevin Herrera, RT(R)(CT); Lisa Machuca, RT(R) Trnsdb Date/Time: 03/03/2019 (1200) [id number] Orig Print D/T: S: 03/03/2019 (1206) PAGE 2 Signed Report
[2020-08-04] MEDS ORDERED: IPRATROPIUM BROM 0.5MG/2.5ML ONE (12:17)
[2020-08-04] MEDS ORDERED: ALBUTEROL 2.5 MG/3 ML NEB SOL ONE (12:17)
[2020-08-04 13:08] LABS: Blood Gas Oxyhemoglobin 85.2 % (94-97); Blood O2 Saturation 87.7 % (92-98.5)
[2020-08-04 13:13] LABS: Blood Gas Oxyhemoglobin 82.5 % (94-97)
[2020-08-04] MEDS ORDERED: METHYLPREDNISOLONE 125 MG INJ ONE (13:22)
[2020-08-04] MEDS ORDERED: CEFTRIAXONE/SWI 1gm 1 GM/10 ML SYR ONE (13:23)
[2020-08-04] MEDS ORDERED: MAGNESIUM SULFATE 1 gm IVPB 1 GM/100 ML BAG IV ONE (13:23)
[2020-08-04] MEDS ORDERED: ENOXAPARIN 100 MG/ML SYR SQ ONE (13:23)
[2020-08-04] MEDS ORDERED: NA CHLORIDE 0.9% 1,000 ML ONE (13:23)
[2020-08-04] MEDS ORDERED: METRONIDAZOLE 500mg IVPB 500 MG/100 ML BAG IV ONE (13:23)
[2020-08-04 14:08] LABS: Absolute Lymphocytes (CBC) 1.2 K/uL (0.7-4.9); Basophils % 0.4 % (0-1.3); Hematocrit 37.9 % (36.0-45.0); Lymphocytes % 9.6 % (15.3-44.8); MPV 9.2 fL (7.6-11.3); RBC Red Blood Cell Count 4.45 M/uL (3.86-4.86)
[2020-08-04] MEDS ORDERED: FENTANYL/NS PCA 500 MCG/50 ML SYR IV PRN (14:51)
[2020-08-04 14:52] LABS: Protime INR 1.42
[2020-08-04] MEDS ORDERED: RSI MEDICATION KIT IV ONE (14:53)
[2020-08-04] MEDS ORDERED: MIDAZOLAM HCL 2 MG/2 ML INJ ONE ×2 (15:09→15:53)
[2020-08-04 15:19] LABS: ALT/SGPT 822 U/L (12-78); Albumin 3.2 g/dL (3.4-5.0); Alkaline Phosphatase 172 U/L (45-117); Bicarbonate 31 mmol/L (21-32); Bilirubin Direct 0.2 mg/dL (0-0.2); Bilirubin Total 0.3 mg/dL (0.2-1.0); CKMB Creatine Kinase MB 1.7 ng/mL (0.3-3.6); Creatine Phosphokinase 89 U/L (26-192); Glucose Level 89 mg/dL (74-106); NT PRO-BNP 4016 pg/mL (<125); Potassium 5.5 mmol/L (3.5-5.1); Protein, Total 6.8 g/dL (6.4-8.2); Sodium Level 134 mmol/L (136-145); Troponin (Emerg Dept Use Only) 0.21 ng/mL (0.0-0.045)
[2020-08-04 15:20] LABS: BUN Blood Urea Nitrogen < 1 mg/dL (7-18); Lipase < 10 U/L (73-393)
[2020-08-04 15:21] LABS: AST/SGOT 1848 U/L (15-37)
[2020-08-04] MEDS ORDERED: MIDAZOLAM HCL 100 MG in NA CHLORIDE 0.9% 80 ML IV PRN (15:59)
--- NOTE | 2020-08-04 16:24 | RAD REPORT ---
EXAM DESCRIPTION: RAD - Chest Single View - 08/04/2020 4:18 pm CLINICAL HISTORY: POST ETT Chest pain. COMPARISON: Chest Single View dated 07/31/2020; Chest Single View dated 01/28/2020; Chest Single View dated 12/19/2019; Chest Single View dated 12/18/2019 FINDINGS: Portable technique limits examination quality. Tip of the endotracheal tube is about 1 cm above the level of the aortic arch. Mild interstitial pulm onary edema. The heart is moderately enlarged in size. Enteric tube tip extends into the upper abdome n but is not included on the image.
[2020-08-04] MEDS ORDERED: AZITHROMYCIN IV 500 MG in NA CHLORIDE 0.9% 250 ML IVPB ONE (17:00)
[2020-08-04] MEDS ORDERED: propofoL 1,000 MG/100 ML VIAL IV ONE ×2 (17:04→19:47)
[2020-08-04] MEDS ORDERED: FENTANYL CITR 100 MCG/2 ML ONE (17:08)
[2020-08-04 17:14] LABS: Urine Blood Trace-intact (Negative); Urine Glucose Negative (Negative); Urine Protein 1+ (Negative); Urine Specific Gravity >=1.030 (1.005-1.030); Urine pH 5.5 (5.0-7.0)
--- NOTE | 2020-08-04 17:53 | EDPHYS ---
Physician Documentation [facility] Name: Oleg Rosenberg Age: 50 yrs Sex: Female : 1970 Arrival Date: 08/04/2020 Time: 11:53 Bed 3 Private MD: ED Physician Rodrigo Delacruz HPI: 08/04 12:12 This 50 yrs old Female presents to ER via EMS with complaints of Shortness Of ma2 Breath. 12:12 The patient has shortness of breath at rest. Onset: The symptoms/episode began/occurred ma2 gradually, 2 day(s) ago. Associated signs and symptoms: Pertinent negatives: productive cough, diaphoresis, fever, loss of consciousness, nausea, numbness in extremities. Severity of symptoms: At their worst the symptoms were moderate in the emergency department the symptoms are unchanged. The patient has not experienced similar symptoms in the past. 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 - Social history:: Patient/guardian denies using alcohol, street drugs, The patient lives with family, Smoking status: unknown. - Family history:: not pertinent. ROS: 12:12 Constitutional: Negative for fever, chills, and weight loss. ma2 12:12 All other systems are negative. Exam: 12:12 Constitutional: This is a well developed, well nourished patient who is awake, alert, ma2 and in no acute distress. ENT: Nares patent. No nasal discharge, no septal abnormalities noted. Tympanic membranes are normal and external auditory canals are clear. Oropharynx with no redness, swelling, or masses, exudates, or evidence of obstruction, uvula midline. Mucous membranes moist. Neck: Trachea midline, no thyromegaly or masses palpated, and no cervical lymphadenopathy. Supple, full range of motion without nuchal rigidity, or vertebral point tenderness. No Meningismus. Chest/axilla: Normal chest wall appearance and motion. Nontender with no deformity. No lesions are appreciated. Cardiovascular: Regular rate and rhythm with a normal S1 and S2. No gallops, murmurs, or rubs. Normal PMI, no JVD. No pulse deficits. Abdomen/GI: Soft, non-tender, with normal bowel sounds. No distension or tympany. No guarding or rebound. No evidence of tenderness throughout. Back: No spinal tenderness. No costovertebral tenderness. Full range of motion. Skin: Warm, dry with normal turgor. Normal color with no rashes, no lesions, and no evidence of cellulitis. MS/ Extremity: Pulses equal, no cyanosis. Neurovascular intact. Full, normal range of motion. Neuro: Awake and alert, GCS 15, oriented to person, place, time, and situation. Cranial nerves II-XII grossly intact. Motor strength 5/5 in all extremities. Sensory grossly intact. Cerebellar exam normal. Normal gait. 12:12 Respiratory: moderate respiratory distress is noted, Respirations: labored breathing, Breath sounds: bronchial sounds, wheezing: expiratory Vital Signs: 11:53 BP 94 / 48; Pulse 68; Resp 34 S; Temp 97.3; Pulse Ox 94% on Non-rebreather mask; Weight bp 220 kg; 13:00 BP 98 / 33; Pulse 64; Resp 24; Pulse Ox 92% ; bp 14:00 BP 159 / 70; Pulse 65; Resp 19; Pulse Ox 97% ; bp 15:00 BP 109 / 49; Pulse 63; Resp 18; Pulse Ox 100% ; bp 15:30 BP 153 / 79; Pulse 60; Resp 18; Pulse Ox 100% on ETT vent; jl7 16:00 BP 130 / 75; Pulse 61; Resp 18 A; Pulse Ox 100% on ETT vent; jl7 17:00 BP 132 / 74; Pulse 65; Resp 18; Pulse Ox 92% ; bp Procedures: 16:37 Intubation: Ventilated with 100% NRB prior to procedure. Intubated orally using # 4 ma2 Kumari blade with 7.5 mm ETT. was successful on first attempt. Ventilated with Ambu bag. ventilator. Cricoid pressure applied during procedure. Tube secured with ETT vasquez Placement verified by CO2 detector with (+) color change, auscultating bilateral breath sounds, O2 saturation after procedure was 100 %. Patient tolerated well. MDM: 12:07 Patient medically screened. [facility] 12:12 Differential diagnosis: asthma, Bronchitis Chronic Obstructive Pulmonary Disease [facility] reactive airway disease. 16:37 Data reviewed: vital signs, nurses notes. Counseling: I had a detailed discussion with silvino the patient and/or guardian regarding: the historical points, exam findings, and any diagnostic results supporting the discharge/admit diagnosis, the presence of at least one elevated blood pressure reading (>120/80) during this emergency department visit, the need for further work-up and treatment in the hospital. 16:42 ED course: patient needs ICU and there is no ICU bed in our hospital. discussed with silvino Martinez hospitalist. He recommends transfer for higher level of care as no ICU bed or service available in our ER.. 17:30 ED course: [facility] and [facility] all denied due to no ma2 capacity. discussed again with dr. Oliva and dr. Stallings. dr. Stlalings will lbe in contact with [facility] dr. scruggs to possibly find a bed there. . 08/04 12:11 Order name: ABG; Complete Time: 13:59 [facility] 08/04 12:11 Order name: Blood Culture Adult (2) [facility] 08/04 12:11 Order name: BMP 08/04 12:11 Order name: CBC with Diff [facility] 08/04 12:11 Order name: Ckmb [facility] 08/04 12:11 Order name: CPK [facility] 08/04 12:11 Order name: D-Dimer [facility] 08/04 12:11 Order name: Hepatic Function [facility] 08/04 12:11 Order name: Lipase; Complete Time: 15:37 [facility] 08/04 12:11 Order name: Magnesium; Complete Time: 15:37 ms2 08/04 12:11 Order name: NT PRO-BNP; Complete Time: 15:37 ms2 08/04 12:11 Order name: PT-INR; Complete Time: 15:37 ms2 08/04 12:11 Order name: Ptt, Activated; Complete Time: 15:37 ms2 08/04 12:11 Order name: Troponin (emerg Dept Use Only); Complete Time: 15:37 ma2 08/04 12:11 Order name: BIPAP ms2 08/04 12:12 Order name: Blood Culture EDMS 08/04 12:12 Order name: Basic Metabolic Panel; Complete Time: 15:37 EDMS 08/04 12:12 Order name: CBC with Automated Diff; Complete Time: 14:15 EDMS 08/04 12:12 Order name: CKMB Creatine Kinase MB; Complete Time: 15:37 EDMS 08/04 12:12 Order name: Creatine Phosphokinase; Complete Time: 15:37 EDMS 08/04 12:12 Order name: D-Dimer; Complete Time: 15:37 EDMS 08/04 12:12 Order name: Liver (Hepatic) Function; Complete Time: 15:37 EDMS 08/04 13:12 Order name: ABG Arterial Blood Gas; Complete Time: 13:59 EDMS 08/04 14:54 Order name: Chest Single View XRAY; Complete Time: 16:36 bp 08/04 16:11 Order name: SARS-COV-2 RT PCR; Complete Time: 16:36 EDMS 08/04 17:14 Order name: Urine Dipstick-Ancillary; Complete Time: 17:45 EDMS 08/04 18:10 Order name: ABG Arterial Blood Gas [facility] 08/04 12:11 Order name: Call RT; Complete Time: 12:29 ms2 08/04 12:11 Order name: EKG; Complete Time: 12:12 ms2 08/04 12:11 Order name: Cardiac monitoring; Complete Time: 12:43 ms2 08/04 12:11 Order name: EKG - Nurse/Tech; Complete Time: 12:43 ma2 08/04 12:11 Order name: IV Saline Lock; Complete Time: 12:43 ma2 08/04 12:11 Order name: Labs collected and sent; Complete Time: 14:40 ma2 08/04 12:11 Order name: O2 Per Protocol; Complete Time: 12:20 ma2 08/04 12:11 Order name: O2 Sat Monitoring; Complete Time: 12:20 ma2 Administered Medications: 12:20 Drug: Albuterol 2.5 mg Route: Inhalation; bp 12:20 Drug: AtroVENT Aerosol 0.5 mg Route: Inhalation; bp 12:30 Drug: Xopenex 1.25 mg Route: Inhalation; bp 12:30 Drug: SOLU-Medrol 125 mg Route: IVP; Site: right upper arm; bp 13:19 Follow up: Response: No adverse reaction bp 12:30 Drug: NS 0.9% 1000 ml Route: IV; Rate: 75 ml/hr; Site: right upper arm; bp 12:40 Drug: Albuterol 2.5 mg Route: Inhalation; bp 12:40 Drug: AtroVENT Aerosol 0.5 mg Route: Inhalation; bp 12:45 Drug: Lovenox (enoxaparin) 100 mg Route: Sub-Q; Site: left lower abdomen; bp 13:19 Follow up: Response: No adverse reaction bp 13:00 Drug: Albuterol 2.5 mg Route: Inhalation; bp 13:00 Drug: AtroVENT Aerosol 0.5 mg Route: Inhalation; bp 13:00 Drug: Magnesium Sulfate 1 grams Route: IVPB; Infused Over: 1 hrs; Site: right upper arm;bp 18:46 Follow up: IV Status: Completed infusion; IV Intake: 100ml bp 14:40 Drug: Flagyl 500 mg Volume: 100 ml; Route: IVPB; Rate: 200 ml/hr; Infused Over: 30 bp mins; Site: right upper arm; 14:41 Drug: Rocephin (cefTRIAXone) 1 grams Route: IV; Rate: calculated rate; Site: right bp upper arm; 15:00 Drug: AZITHromycin 500 mg Route: IVPB; Infused Over: 1 hrs; Site: right jugular; bp 18:46 Follow up: IV Status: Completed infusion; IV Intake: 250ml bp 15:15 Drug: fentaNYL (PF) 1 mcg/kg/h Route: IV; Rate: calculated rate; Site: right jugular; bp 16:00 Drug: Versed 10 mg {Note: VORB ALZBANDARRI.} Route: IVP; Site: right jugular; bp 16:30 Drug: Versed 100 mg Route: IV; Rate: 5 mg/hr; Site: right jugular; bp 18:00 Drug: Propofol 5 mcg/kg/min Route: IV; Rate: calculated rate; Site: right jugular; bp Disposition: 17:51 Critical Care:. ma2 Disposition: 08/04/20 17:52 Transfer ordered to Other Acute Care Facility. Diagnosis are Respiratory arrest, Chronic obstructive pulmonary disease, unspecified, Acute pulmonary edema. - Reason for transfer: Higher level of care. - Accepting physician is [facility]. - Condition is Critical. - Problem is new. - Symptoms are unchanged. Critical care time excluding procedures: 17:51 Critical care time: Bedside Care: 35 minutes, Consultation: 10 minutes, Family ma2 Intervention: 5 minutes. Total time: 50 minutes Signatures: Dispatcher [employer] EDAR Monroe Lopez PA PA jmm Calderon, Audri, RN RN aa5 Camacho Mojica RN RN jb4 Kory Belle RN RN bp Rodrigo Delacruz MD MD ma2 Marlee Coto Corrections: (The following items were deleted from the chart) 12:26 12:12 Chest For PE Angio+CT.RAD.BRZ ordered. EDAR EDMS 15:27 15:13 CORONAVIRUS+MR.LAB.BRZ ordered. EDAR EDMS 19:59 17:52 08/04/2020 17:52 Transfer ordered to Other Acute Care Facility. Diagnosis is jb4 Respiratory arrest; Chronic obstructive pulmonary disease, unspecified; Acute pulmonary edema. Reason for transfer: Higher level of care. Accepting physician is [facility]. Condition is Critical. Problem is new. Symptoms are unchanged. ma2
--- NOTE | 2020-08-04 17:53 | ER ---
Nurse's Notes [facility] Name: Oleg Rosenberg Age: 50 yrs Sex: Female : 1970 Arrival Date: 08/04/2020 Time: 11:53 Bed 3 Private MD: Diagnosis: Respiratory arrest;Chronic obstructive pulmonary disease, unspecified;Acute pulmonary edema Presentation: 08/04 11:53 Chief complaint: EMS states: unresponsive and wheezing, O2 sat 58% RA up to 94% upon aa5 oxygen administration via non-rebreather. Pt now opens eyes to verbal stimuli. 11:53 Onset of symptoms was August 2020. aa5 11:53 Acuity: AAYUSH 2 aa5 11:53 Method Of Arrival: EMS: [facility] aa5 11:53 Coronavirus screen: cough unrelated to allergies, difficulty breathing, Client presents bp with at least one sign or symptom that may indicate coronavirus-19. Standard/surgical mask placed on the client. Provider contacted for isolation considerations. Ebola Screen: No symptoms or risks identified at this time. Initial Sepsis Screen: Does the patient meet any 2 criteria? RR > 20 per min. No. Patient's initial sepsis screen is negative. Does the patient have a suspected source of infection? No. Patient's initial sepsis screen is negative. Risk Assessment: Do you want to hurt yourself or someone else? Patient reports no desire to harm self or others. Triage Assessment: 12:00 General: Appears distressed, uncomfortable, obese, Behavior is drowsy. Pain: Denies bp pain. EENT: No deficits noted. Neuro: No deficits noted. Cardiovascular: No deficits noted. Respiratory: Reports shortness of breath labored breathing Onset: The symptoms/episode began/occurred yesterday, the patient has moderate shortness of breath. GI: No signs and/or symptoms were reported involving the gastrointestinal system. : No signs and/or symptoms were reported regarding the genitourinary system. Derm: No deficits noted. Musculoskeletal: No deficits noted. 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 - Social history:: Patient/guardian denies using alcohol, street drugs, The patient lives with family, Smoking status: unknown. - Family history:: not pertinent. Screenin:00 Abuse screen: Denies threats or abuse. Denies injuries from another. Nutritional bp screening: No deficits noted. Tuberculosis screening: No symptoms or risk factors identified. Fall Risk None identified. Assessment: 12:00 General: SEE TRIAGE NOTE. Cardiovascular: Rhythm is sinus rhythm. Respiratory: Airway bp is patent Respiratory effort is labored, Breath sounds with wheezes bilaterally. 12:42 Reassessment: UNABLE TO OBTAIN BLOOD SPECIMEN, MX ATTEMPTS BY MX STAFF. MD NOTIFIED. bp 13:20 Reassessment: No changes from previously documented assessment. Patient and/or family bp updated on plan of care and expected duration. Pain level reassessed. ABX ON HOLD FOR BLOOD CX. 15:16 Reassessment: PT INTUBATED. R EJ PLACED FOR IV ACCESS. bp 17:00 Reassessment: No changes from previously documented assessment. Patient and/or family bp updated on plan of care and expected duration. Pain level reassessed. PER HOSPITALIST, TRANSFER PENDING. 18:00 Reassessment: No changes from previously documented assessment. Patient and/or family bp updated on plan of care and expected duration. Pain level reassessed. 18:52 Reassessment: REPORT TO [facility]. TRANSPORT PENDING. bp Vital Signs: 11:53 BP 94 / 48; Pulse 68; Resp 34 S; Temp 97.3; Pulse Ox 94% on Non-rebreather mask; Weight bp 220 kg; 13:00 BP 98 / 33; Pulse 64; Resp 24; Pulse Ox 92% ; bp 14:00 BP 159 / 70; Pulse 65; Resp 19; Pulse Ox 97% ; bp 15:00 BP 109 / 49; Pulse 63; Resp 18; Pulse Ox 100% ; bp 15:30 BP 153 / 79; Pulse 60; Resp 18; Pulse Ox 100% on ETT vent; jl7 16:00 BP 130 / 75; Pulse 61; Resp 18 A; Pulse Ox 100% on ETT vent; jl7 17:00 BP 132 / 74; Pulse 65; Resp 18; Pulse Ox 92% ; bp ED Course: 11:53 Patient arrived in ED. aa5 11:53 Arm band placed on Patient placed in an exam room, on a stretcher. aa5 11:57 Triage completed. aa5 12:00 Kory Belle, RN is Primary Nurse. bp 12:00 Patient has correct armband on for positive identification. Bed in low position. Call bp light in reach. Side rails up X2. 12:00 Inserted saline lock: 22 gauge in right upper arm, using aseptic technique. bp 12:07 Rodrigo Delacruz MD is Attending Physician. ma2 15:00 Inserted saline lock: 18 gauge in right EJ, using aseptic technique. Blood collected. bp 15:19 Assisted provider with intubation using 7.5 mm ETT via oral route. ET tube secured at bp 22cm at the teeth. Set up intubation tray. Intubated by Rodrigo Delacruz MD Placement verified by auscultating bilateral breath sounds, CXR, Patient tolerated well. 16:18 Chest Single View XRAY In Process Unspecified. EDMS 16:41 initiated a transfer with Cuong Patterson from the [facility] Transfer [place]. eb 16:49 [address] from [facility] called to let us know they will have to decline the patient eb in transfer due to being at capacity. 16:50 initiated a transfer with Leia from the [facility] Transfer [place]. eb 16:57 Leia from [facility] called to decline the patient in transfer due to being at eb capacity. 17:00 initiated a transfer with Linnea from The [facility]. eb 17:[address] [facility] declined the patient in transfer due to being at capacity. eb 17:09 Guy cath inserted, using sterile technique, 16 Fr., by co, balloon inflated, to bp gravity drainage, urine specimen collected. returned clear yellow urine. Patient tolerated well. 17:32 initiated a transfer with Amie from the [facility] transfer center. eb 17:53 administrative approval given by Amie Gomez/ Patient has been accepted to [facility]/ Ahsan Serna has accepted the patient in transfer. report to be called to [phone]. 18:53 Patient transferred, IV remains in place. bp Administered Medications: 12:20 Drug: Albuterol 2.5 mg Route: Inhalation; bp 12:20 Drug: AtroVENT Aerosol 0.5 mg Route: Inhalation; bp 12:30 Drug: Xopenex 1.25 mg Route: Inhalation; bp 12:30 Drug: SOLU-Medrol 125 mg Route: IVP; Site: right upper arm; bp 13:19 Follow up: Response: No adverse reaction bp 12:30 Drug: NS 0.9% 1000 ml Route: IV; Rate: 75 ml/hr; Site: right upper arm; bp 12:40 Drug: Albuterol 2.5 mg Route: Inhalation; bp 12:40 Drug: AtroVENT Aerosol 0.5 mg Route: Inhalation; bp 12:45 Drug: Lovenox (enoxaparin) 100 mg Route: Sub-Q; Site: left lower abdomen; bp 13:19 Follow up: Response: No adverse reaction bp 13:00 Drug: Albuterol 2.5 mg Route: Inhalation; bp 13:00 Drug: AtroVENT Aerosol 0.5 mg Route: Inhalation; bp 13:00 Drug: Magnesium Sulfate 1 grams Route: IVPB; Infused Over: 1 hrs; Site: right upper arm;bp 18:46 Follow up: IV Status: Completed infusion; IV Intake: 100ml bp 14:40 Drug: Flagyl 500 mg Volume: 100 ml; Route: IVPB; Rate: 200 ml/hr; Infused Over: 30 bp mins; Site: right upper arm; 14:41 Drug: Rocephin (cefTRIAXone) 1 grams Route: IV; Rate: calculated rate; Site: right bp upper arm; 15:00 Drug: AZITHromycin 500 mg Route: IVPB; Infused Over: 1 hrs; Site: right jugular; bp 18:46 Follow up: IV Status: Completed infusion; IV Intake: 250ml bp 15:15 Drug: fentaNYL (PF) 1 mcg/kg/h Route: IV; Rate: calculated rate; Site: right jugular; bp 16:00 Drug: Versed 10 mg {Note: VORB SUKHDEV.} Route: IVP; Site: right jugular; bp 16:30 Drug: Versed 100 mg Route: IV; Rate: 5 mg/hr; Site: right jugular; bp 18:00 Drug: Propofol 5 mcg/kg/min Route: IV; Rate: calculated rate; Site: right jugular; bp Intake: 18:46 IV: 100ml; Total: 100ml. bp 18:46 IV: 250ml; Total: 350ml. bp Outcome: 17:52 ER care complete, transfer ordered by . silvino 18:52 Transferred by ground EMS Note: [facility] bp 18:52 Condition: stable 18:52 Instructed on the need for transfer. 19:59 Patient left the ED. jb4 Signatures: Dispatcher [employer] EDMS Sandi Doyle RN RN aa5 Camacho Mojica RN RN jb4 oSfiya Friedman RN RN jl7 Kory Belle RN RN Rodrigo Ortega MD MD ma2 Marlee Coto Corrections: (The following items were deleted from the chart) 11:58 11:53 BP 94 / 48; Pulse 68bpm; Resp 24bpm; Spontaneous; Pulse Ox 94% Non-rebreather aa5 mask; aa5 12:01 11:53 Chief complaint: EMS states: unresponsive and wheezing, O2 sat 58% RA up to 94% aa5 upon oxygen administration via non-rebreather. aa5 12:07 11:53 BP 94 / 48; Pulse 68bpm; Resp 34bpm; Spontaneous; Pulse Ox 94% Non-rebreather bp mask; aa5 16:01 16:00 Versed 100 mg IV at 2 mg/hr in right jugular bp bp 18:45 11:53 BP 94 / 48; Pulse 68bpm; Resp 34bpm; Spontaneous; Pulse Ox 94% Non-rebreather bp mask; Temp 97.3F; bp
[2020-08-04 18:12] LABS: Arterial Blood Carboxyhemoglob 1.5 % (0-1.5); Blood Gas Oxyhemoglobin 82.6 % (94-97); Blood O2 Saturation 84.7 % (92-98.5)
[2020-08-04 20:49] VITALS: TEMP 97.3
[2020-08-04 21:02] VITALS: BP 132/74; O2SAT 92
--- NOTE | 2020-08-05 08:56 | EKG ---
Test Date: 2020-08-04 Test Time: 12:30:22 Medical Technologist: RAFAEL MEASUREMENT RESULTS: Intervals: Rate: 65 MS: 156 QRSD: 100 QT: 444 QTc: 461 [place]: P: 41 MS: 156 QRS: 80 T: -5 INTERPRETIVE STATEMENTS: Normal sinus rhythm Incomplete right bundle branch block T wave abnormality, consider anterior ischemia Prolonged QT Abnormal ECG Compared to ECG 07/31/2020 05:05:01 Incomplete right bundle-branch block now present T-wave abnormality now present Possible ischemia now present Prolonged QT interval now present Electronically Signed On 08-05-20 08:55:19 CDT by Mahendra Howard
== END 2020-08-04 19:59 ==
LOC: ER 11:52
PROC: 0BH17EZ Insertion of Endotracheal Airway into Trachea, Via Natural or Artificial Opening (ICD-10-PCS; principal; 2020-08-04)
DX: R09.2 Respiratory arrest (principal); J81.0 Acute pulmonary edema; J44.9 Chronic obstructive pulmonary disease, unspecified; Z85.528 Personal history of other malignant neoplasm of kidney; Z88.0 Allergy status to penicillin; Z88.5 Allergy status to narcotic agent; Z88.6 Allergy status to analgesic agent; Z88.8 Allergy status to other drugs, medicaments and biological substances; Z20.822 Contact with and (suspected) exposure to COVID-19; Z91.041 Radiographic dye allergy status; Z91.048 Other nonmedicinal substance allergy status
CPT/HCPCS: 93005; 87040; 85025; 80048; 36415; 83735; 82550; 85610; 85379; 80076; 85730; 81003; 84484; 82553; 83690; 83880; 71045; 94002; 82805 ×3; 94660 ×2; 31500; 51702; 96372; 99291; 99292; U0003; J2704 ×2; J0456; J2250 ×3; J3010 ×2; J3475; J1650; J0696; J7050; J7030; J2930

== ENCOUNTER 2020-09-30 09:59 | Emergency (ER) | payer OTHER ==
--- OUTSIDE RECORDS SUMMARY | 2020-09-30 10:09 | XMS REPORT | Continuity of Care Document ---
:1970 Author Organization [facility] t Address [address] [place] [address] Care Team Providers Name Role Phone Clause [...] ents Source Name Type Date Date Clinician aspirin DA Active SV 2020- [facility] 4-18 [place] 00:00: [address] Iodinate DA Active U [facility] d 08-05 [place] Contrast 00:00: [facility] Media [address] [place] [address] NSAIDS DA Active U [facility] (Non-Remigio 08-05 [place] roidal 00:00: [facility] Anti-Inf 00 [facility] guaifene DA Active U [facility] sin - [place] 00:00: [address] iodine DA Active U 2020-0 [facility] 4-05 [place] 00:00: [address] morphine DA Active U 2020-0 [facility] 4- [place] 00:00: [address] aspirin DA Active U 2020-0 [facility] 4- [place] 00:00: [address] hydromor DA Active U 2020-0 [facility] phone 4 [place] 00:00: [address] ondanset DA Active U 2020-0 [facility] abdulaziz 4 [place] 00:00: [address] penicill DA Active U 2020-0 [facility] in G 08-05 [place] 00:00: [address] No Known DA Active U 2020-0 [facility] Allergie 08-04 [place] s 00:00: [address] fentanyl DA Active [place] 2019-0 [facility] 5- [place] 00:00: d 00 [facility] Iodinate DA Active SV 2018- [facility] d 05-03 [place] Contrast 00:00: [place] Media 00 [facility] NSAIDS DA Active SV 2018- [facility] (Non-Remigio 05-03 [place] 00:00: [place] Anti-Inf 00 [facility] Penicill DA Active SV 2018- [facility] ins 05-03 [place] 00:00: [place] 00 [facility] morphine DA Active SV 2018- [facility] 05-03 [place] 00:00: [place] 00 [facility] aspirin DA Active U 2018- [facility] 05-03 [place] 00:00: [place] 00 [facility] hydromor DA Active SV 2019- [facility] phone 05-03 [place] 00:00: [place] 00 [facility] shellfis FA Active SV 2018- [facility] h 05-03 [place] derived 00:00: [place] 00 [facility] No Known DA Active U 2008-0 [facility] Contrast - [place] Allergie 00:00: d s 00 [facility] No Known DA Active U 2008-0 [facility] Food - [place] Allergie 00:00: d s 00 [facility] [place] No Known DA Active U 2008-0 [facility] Other - [place] Allergie 00:00: d s 00 [facility] PENICILL DA Active U 2008-0 [facility] IN - [place] 00:00: d 00 [facility] Center penicill DA Active U 2004-0 [facility] in G 09-05 [place] 00:00: d 00 [facility] Medications This patient has no known medications. Procedures This patient has no known procedures. Encounters Start End Encounter Admission Attending Care Care Encounter Source Date/Time Date/Time Type Type Clinicians Facility Department ID 2020-05-22 2020-05-22 Hospital Adrien, [facility] [id number] 07:34:00 15:25:00 Encounter Jigar Saeed [facility] [id number] Clear 4.2.7.2.686 [place] [id number] Hospital 049 ([facility]) 2020-05-22 2020-05-22 Surgery [facility] [id number] 14 09:47:00 12:18:00 Health 350.1.13.10 Clear 4.2.7.2.686 [place] [phone] Hospital 020 ([facility]) 2020-05-22 2020-05-22 Orders Doctor VIPUL [id number] 00:00:00 00:00:00 Only Unassigned, MARCUS 350.1.13.[address] [facility] 4.2.7.2.686 [id number] 2020-05-22 2020-05-22 Prep For VIPUL [place] [id number] 00:00:00 00:00:00 Surgery Jigar Saeed MARCUS 350.1.13.10 [facility] 4.2.7.2.686 [id number] 2020-05-22 2020-05-22 Prep For VIPUL [place] 1.2.840.114 [id number] 00:00:00 00:00:00 Surgery Jigar C MARCUS 350.1.13.10 [facility] 4.2.7.2.686 [id number] 2020-05-21 2020-05-21 [facility] Adrien, [facility] [id number] 13:50:34 23:59:00 Encounter Jigar Saeed Health 350.1.13.10 Clear 4.2.7.2.686 [place] [id number] Hospital 807 ([facility]) 2020-05-21 2020-05-21 [facility], [facility] [id number] 13:50:10 14:05:10 Visit Health 350.1.13.10 Clear 4.2.7.2.686 [place] [address] [id number] [facility] 353 ([facility]) Results Test Description Test Time Test Comments Results Result Comments Source BASIC METABOLIC PANEL 2020-08-22 04:26:00 Test Item Value Reference Range Interpretation Comme nts SODIUM (test code = NA) 135.0 mmol/L 133-144 N POTASSIUM (test code = K) 2.8 mmol/L 3.5-5.1 L CHLORIDE (test code = CL) 99 mmol/L 95-105 N CARBON DIOXIDE (test code 29 mmol/L 21-32 N = CO2) ANION GAP (test code = 7.0 GAP calc 4.0-15.0 N GAP) GLUCOSE (test code = GLU) 104 MG/DL 70-110 N BLOOD UREA NITROGEN (test 31 MG/DL 7-18 H code = BUN) CREATININE (test code = 0.48 MG/DL 0.55-1.30 L Resu lts may be depressed CREAT) if patient is takingN-Acetylc ysteine (NAC) and Metam izole (Dipyrone). CALCIUM (test code = CA) 9.4 MG/DL 8.5-10.1 N INDEX HEMOLYSIS (test 2 TRACE 10-25 MG See_Comment [ Automated message] The code = HEMINDEX) Index/DL system whic h generated this result tra nsmitted reference range : 1 NORMAL. The ref erence range was not u sed to interpret this result as normal/abnormal . INDEX ICTERIC (test code 1 NORMAL <2 MG See_Comment [Automated message] The = ICTINDEX) Index/DL system which ge nerated this result tra nsmitted reference range : 1 NORMAL. The ref erence range was not u sed to interpret this result as normal/abnormal . INDEX LIPEMIA (test code 1 NORMAL <50 MG See_Comment [Automated message] The = LIPINDEX) Index/DL system which ge nerated this result tra nsmitted reference range : 1 NORMAL. The ref erence range was not u sed to interpret this result as normal/abnormal . BASIC METABOLIC [id number] 04:25:00 Test Item Value Reference Range Interpretation Comments SODIUM (test code = 135.0 mmol/L 133-144 N NA) POTASSIUM (test 2.8 mmol/L 3.5-5.1 L code = K) CHLORIDE (test code 99 mmol/L 95-105 N = CL) CARBON DIOXIDE 29 mmol/L 21-32 N (test code = CO2) ANION GAP (test 7.0 GAP calc 4.0-15.0 N code = GAP) GLUCOSE (test code 104 MG/DL 70-110 N = GLU) BLOOD UREA NITROGEN 31 MG/DL 7-18 H (test code = BUN) CREATININE (test MG/DL 0.55-1.30 code = CREAT) CALCIUM (test code 9.4 MG/DL 8.5-10.1 N = CA) INDEX HEMOLYSIS 2 TRACE 10-25 See_Comment [Automated message] (test code = MG Index/DL The system [employer]) generated this result transmit cipriano reference range : 1 NORMAL. The reference range was not used to interpret this result as normal/abnormal . INDEX ICTERIC (test 1 NORMAL <2 MG See_Comment [Auto mated message] code = ICTINDEX) Index/DL The system which generated this result transmit cipriano reference range : 1 NORMAL. The reference range was not used to interpret this result as normal/abnormal . INDEX LIPEMIA (test 1 NORMAL <50 MG See_Comment [Aut omated message] code = LIPINDEX) Index/DL The system which generated this result transmit cipriano reference range : 1 NORMAL. The reference range was not used to interpret this result as normal/abnormal . CBC W/AUTO [id number] 04:05:00 Test Item Value Reference Range Interpretation Comments WHITE BLOOD CELL (test code = 10.7 K/mm3 4.1-12.1 N WBC) RED BLOOD CELL (test code = RBC) 5.23 M/mm3 3.8-5.5 N HEMOGLOBIN (test code = HGB) 13.5 G/DL 10.6-15.8 N HEMATOCRIT (test code = HCT) 43.8 % 31.8-47.4 N MEAN CELL VOLUME (test code = 83.7 fL 80.1-101.1 N MCV) MEAN CELL HGB (test code = MCH) 25.8 pg 25.3-35.3 N MEAN CELL HGB CONCETRATION (test 30.8 G/DL 32.7-35.1 L code = MCHC) RED CELL DISTRIBUTION WIDTH 17.1 % 12.2-16.4 H (test code = RDW) RED CELL DISTRIBUTION WIDTH 51.3 fL 36.4-46.3 H (test code = RDW-SD) PLATELET COUNT (test code = PLT) 258 K/mm3 155-337 N MEAN PLATELET VOLUME (test code 11.6 fL 6.8-11.2 H = MPV) GRANULOCYTE % (test code = GR%) 67.1 % 37.8-82.6 N IMMATURE GRANULOCYTE % (test 0.7 % 0.0-2.0 N code = IG%) LYMPHOCYTE % (test code = LY%) 21.8 % 14.1-45.4 N MONOCYTE % (test code = MO%) 7.9 % 2.5-11.7 N EOSINOPHIL % (test code = EO%) 2.4 % 0.0-6.2 N BASOPHIL % (test code = BA%) 0.1 % 0.0-2.1 N NUCLEATED RBC % (test code = 0.0 /100WBC% 0.0-1.0 N NRBC%) GRANULOCYTE # (test code = GR#) 7.19 k/mm3 2.0-13.7 N IMMATURE GRANULOCYTE # (test 0.08 K/mm3 0.00-0.03 H code = IG#) LYMPHOCYTE # (test code = LY#) 2.34 K/mm3 0.6-3.8 N MONOCYTE # (test code = MO#) 0.85 K/mm3 0.11-0.59 H EOSINOPHIL # (test code = EO#) 0.26 K/mm3 0.0-0.4 N BASOPHIL # (test code = BA#) 0.01 K/mm3 0.0-0.1 N NUCLEATED RBC # (test code = 0.00 K/mm3 0.0-0.05 N NRBC#) GLUCOSE BEDSIDE [id number] 18:16:00 Test Item Value Reference Range Interpretation Comments GLUCOSE BEDSIDE TESTING (test code 117 MG/DL 70-119 N = GLUBED) GLUCOSE BEDSIDE [id number] 11:15:00 Test Item Value Reference Range Interpretation Comments GLUCOSE BEDSIDE TESTING (test code 126 MG/DL 70-119 H = GLUBED) BASIC METABOLIC [id number] 09:30:00 Test Item Value Reference Range Interpretation Comments SODIUM (test code = 135.0 mmol/L 133-144 N NA) POTASSIUM (test 2.9 mmol/L 3.5-5.1 L code = K) CHLORIDE (test code 97 mmol/L 95-105 N = CL) CARBON DIOXIDE 31 mmol/L 21-32 N (test code = CO2) ANION GAP (test 7.0 GAP calc 4.0-15.0 N code = GAP) GLUCOSE (test code 107 MG/DL 70-110 N = GLU) BLOOD UREA NITROGEN 34 MG/DL 7-18 H (test code = BUN) CREATININE (test 0.53 MG/DL 0.55-1.30 L Results may be code = CREAT) depressed if p atient is takingN-Acetylc ystei ne (NAC) and Metamizole (Dipyrone). CALCIUM (test code 9.3 MG/DL 8.5-10.1 N = CA) INDEX HEMOLYSIS 3 SMALL 25-50 See_Comment [Automated message] (test code = MG Index/DL The system [employer] SA) generated this result transmit cipriano reference range : 1 NORMAL. The reference range was not used to interpret this result as normal/abnormal . INDEX ICTERIC (test 1 NORMAL <2 MG See_Comment [Auto mated message] code = ICTINDEX) Index/DL The system which generated this result transmit cipriano reference range : 1 NORMAL. The reference range was not used to interpret this result as normal/abnormal . INDEX LIPEMIA (test 1 NORMAL <50 MG See_Comment [Aut omated message] code = LIPINDEX) Index/DL The system which generated this result transmit cipriano reference range : 1 NORMAL. The reference range was not used to interpret this result as normal/abnormal . CBC W/AUTO [id number] 09:18:00 Test Item Value Reference Range Interpretation Comments WHITE BLOOD CELL (test code = 11.4 K/mm3 4.1-12.1 N WBC) RED BLOOD CELL (test code = RBC) 5.52 M/mm3 3.8-5.5 H HEMOGLOBIN (test code = HGB) 14.0 G/DL 10.6-15.8 N HEMATOCRIT (test code = HCT) 45.8 % 31.8-47.4 N MEAN CELL VOLUME (test code = 83.0 fL 80.1-101.1 N MCV) MEAN CELL HGB (test code = MCH) 25.4 pg 25.3-35.3 N MEAN CELL HGB CONCETRATION (test 30.6 G/DL 32.7-35.1 L code = MCHC) RED CELL DISTRIBUTION WIDTH 17.4 % 12.2-16.4 H (test code = RDW) RED CELL DISTRIBUTION WIDTH 51.0 fL 36.4-46.3 H (test code = RDW-SD) PLATELET COUNT (test code = PLT) 290 K/mm3 155-337 N MEAN PLATELET VOLUME (test code 10.8 fL 6.8-11.2 N = MPV) GRANULOCYTE % (test code = GR%) 67.2 % 37.8-82.6 N IMMATURE GRANULOCYTE % (test 1.1 % 0.0-2.0 N code = IG%) LYMPHOCYTE % (test code = LY%) 19.4 % 14.1-45.4 N MONOCYTE % (test code = MO%) 8.2 % 2.5-11.7 N EOSINOPHIL % (test code = EO%) 3.9 % 0.0-6.2 N BASOPHIL % (test code = BA%) 0.2 % 0.0-2.1 N NUCLEATED RBC % (test code = 0.0 /100WBC% 0.0-1.0 N NRBC%) GRANULOCYTE # (test code = GR#) 7.66 k/mm3 2.0-13.7 N IMMATURE GRANULOCYTE # (test 0.12 K/mm3 0.00-0.03 H code = IG#) LYMPHOCYTE # (test code = LY#) 2.21 K/mm3 0.6-3.8 N MONOCYTE # (test code = MO#) 0.93 K/mm3 0.11-0.59 H EOSINOPHIL # (test code = EO#) 0.44 K/mm3 0.0-0.4 H BASOPHIL # (test code = BA#) 0.02 K/mm3 0.0-0.1 N NUCLEATED RBC # (test code = 0.00 K/mm3 0.0-0.05 N NRBC#) GLUCOSE BEDSIDE [id number] 16:12:00 Test Item Value Reference Range Interpretation Comments GLUCOSE BEDSIDE TESTING (test code 127 MG/DL 70-119 H = GLUBED) GLUCOSE BEDSIDE [id number] 10:33:00 Test Item Value Reference Range Interpretation Comments GLUCOSE BEDSIDE TESTING (test code 145 MG/DL 70-119 H = GLUBED) BASIC METABOLIC [id number] 08:44:00 Test Item Value Reference Range Interpretation Comments SODIUM (test code = 133.0 mmol/L 133-144 N NA) POTASSIUM (test 2.9 mmol/L 3.5-5.1 L code = K) CHLORIDE (test code 96 mmol/L 95-105 N = CL) CARBON DIOXIDE 29 mmol/L 21-32 N (test code = CO2) ANION GAP (test 8.0 GAP calc 4.0-15.0 N code = GAP) GLUCOSE (test code 95 MG/DL 70-110 N = GLU) BLOOD UREA NITROGEN 37 MG/DL 7-18 H (test code = BUN) CREATININE (test 0.62 MG/DL 0.55-1.30 N Results may be code = CREAT) depressed if p atient is takingN-Acetylc ystei ne (NAC) and Metamizole (Dipyrone). CALCIUM (test code 9.5 MG/DL 8.5-10.1 N = CA) INDEX HEMOLYSIS 3 SMALL 25-50 See_Comment [Automated message] (test code = MG Index/DL The system [employer] SA) generated this result transmit cipriano reference range : 1 NORMAL. The reference range was not used to interpret this result as normal/abnormal . INDEX ICTERIC (test 1 NORMAL <2 MG See_Comment [Auto mated message] code = ICTINDEX) Index/DL The system which generated this result transmit cipriano reference range : 1 NORMAL. The reference range was not used to interpret this result as normal/abnormal . INDEX LIPEMIA (test 1 NORMAL <50 MG See_Comment [Aut omated message] code = LIPINDEX) Index/DL The system which generated this result transmit cipriano reference range : 1 NORMAL. The reference range was not used to interpret this result as normal/abnormal . BASIC METABOLIC [id number] 08:41:00 Test Item Value Reference Range Interpretation Comments SODIUM (test code = 133.0 mmol/L 133-144 N NA) POTASSIUM (test 2.9 mmol/L 3.5-5.1 L code = K) CHLORIDE (test code 96 mmol/L 95-105 N = CL) CARBON DIOXIDE mmol/L 21-32 (test code = CO2) ANION GAP (test GAP calc 4.0-15.0 code = GAP) GLUCOSE (test code MG/DL 70-110 = GLU) BLOOD UREA NITROGEN MG/DL 7-18 (test code = BUN) CREATININE (test MG/DL 0.55-1.30 code = CREAT) CALCIUM (test code 9.5 MG/DL 8.5-10.1 N = CA) INDEX HEMOLYSIS 3 SMALL 25-50 See_Comment [Automated message] (test code = MG Index/DL The system [employer] [email or web address]) generated this result transmit cipriano reference range : 1 NORMAL. The reference range was not used to interpret this result as normal/abnormal . INDEX ICTERIC (test 1 NORMAL <2 MG See_Comment [Auto mated message] code = ICTINDEX) Index/DL The system which generated this result transmit cipriano reference range : 1 NORMAL. The reference range was not used to interpret this result as normal/abnormal . INDEX LIPEMIA (test 1 NORMAL <50 MG See_Comment [Aut omated message] code = LIPINDEX) Index/DL The system which generated this result transmit cipriano reference range : 1 NORMAL. The reference range was not used to interpret this result as normal/abnormal . CBC W/AUTO [id number] 07:50:00 Test Item Value Reference Range Interpretation Comments WHITE BLOOD CELL (test code = 11.8 K/mm3 4.1-12.1 N WBC) RED BLOOD CELL (test code = RBC) 5.90 M/mm3 3.8-5.5 H HEMOGLOBIN (test code = HGB) 14.9 G/DL 10.6-15.8 N HEMATOCRIT (test code = HCT) 50.0 % 31.8-47.4 H MEAN CELL VOLUME (test code = 84.7 fL 80.1-101.1 N MCV) MEAN CELL HGB (test code = MCH) 25.3 pg 25.3-35.3 N MEAN CELL HGB CONCETRATION (test 29.8 G/DL 32.7-35.1 L code = MCHC) RED CELL DISTRIBUTION WIDTH 17.5 % 12.2-16.4 H (test code = RDW) RED CELL DISTRIBUTION WIDTH 51.8 fL 36.4-46.3 H (test code = RDW-SD) PLATELET COUNT (test code = PLT) 310 K/mm3 155-337 N MEAN PLATELET VOLUME (test code 11.6 fL 6.8-11.2 H = MPV) GRANULOCYTE % (test code = GR%) 71.2 % 37.8-82.6 N IMMATURE GRANULOCYTE % (test 1.4 % 0.0-2.0 N code = IG%) LYMPHOCYTE % (test code = LY%) 16.3 % 14.1-45.4 N MONOCYTE % (test code = MO%) 8.9 % 2.5-11.7 N EOSINOPHIL % (test code = EO%) 1.9 % 0.0-6.2 N BASOPHIL % (test code = BA%) 0.3 % 0.0-2.1 N NUCLEATED RBC % (test code = 0.0 /100WBC% 0.0-1.0 N NRBC%) GRANULOCYTE # (test code = GR#) 8.43 k/mm3 2.0-13.7 N IMMATURE GRANULOCYTE # (test 0.17 K/mm3 0.00-0.03 H code = IG#) LYMPHOCYTE # (test code = LY#) 1.93 K/mm3 0.6-3.8 N MONOCYTE # (test code = MO#) 1.05 K/mm3 0.11-0.59 H EOSINOPHIL # (test code = EO#) 0.22 K/mm3 0.0-0.4 N BASOPHIL # (test code = BA#) 0.03 K/mm3 0.0-0.1 N NUCLEATED RBC # (test code = 0.00 K/mm3 0.0-0.05 N NRBC#) - [facility] 1 [id number] 07:11:00 [facility] : 1970 Sex: F FAX: Anthony Domingo MD [phone] [place]: St: ADM FAX: Manjinder Cat MD,[facility] [place] Patient Name: MARCELLE MEDINA Unit No: [id number] EXAMS: CPT CODE: [id number] XR CHEST 1 V [id number] - XR CHEST 1 V INDICATION:CHF LOCATION: T18 Comparison 05/21/2019 Mild cardiomegaly. Persistent mild atelectasisand pulmonary venous congestion in lower lobes. Trace effusions not excluded. Bony thorax unremarkable. IMPRESSION: No significant change. at 0711 Reported and signed by: Viplu Bassett D.O. CC: Anthony Whittaker MD; Raven Cat MD Dictated Date/Time: 08/20/2020 (710)Technologist: Fanny Hoang Transcribed Date/Time: 08/20/2020 (710) By: Zaire Orig Print D/T: S: 08/20/2020 (0714) JANIEChanda Ribeiro NAME: DONALAZARAMARCELLE ALMENDAREZ [facility] PHYS: LILLY Cat MD,[facility] [place] [address] [place] [address] BLVD : 1970 AGE: 50 SEX:[place] [address] LOC: B.305 W PHONE #: [phone] EXAM DATE: 08/20/2020 STATUS: ADM IN FAX #: [phone] RAD NO: DC Dt: PAGE 1 Signed ReportBASI METABOLIC [id number] 13:57:00 Test Item Value Reference Range Interpretation Comments SODIUM (test code = 131.0 mmol/L 133-144 L NA) POTASSIUM (test 3.0 mmol/L 3.5-5.1 L code = K) CHLORIDE (test code 92 mmol/L 95-105 L = CL) CARBON DIOXIDE 32 mmol/L 21-32 N (test code = CO2) ANION GAP (test 7.0 GAP calc 4.0-15.0 N code = GAP) GLUCOSE (test code 130 MG/DL 70-110 H = GLU) BLOOD UREA NITROGEN 46 MG/DL 7-18 H (test code = BUN) CREATININE (test 0.71 MG/DL 0.55-1.30 N Results may be code = CREAT) depressed if p atient is takingN-Acetylc ystei ne (NAC) and Metamizole (Dipyrone). CALCIUM (test code 9.6 MG/DL 8.5-10.1 N = CA) INDEX HEMOLYSIS 1 NORMAL <10 MG See_Comment [Automat ed message] (test code = Index/DL The system [employer]) generated this result transmit cipriano reference range : 1 NORMAL. The reference range was not used to interpret this result as normal/abnormal . INDEX ICTERIC (test 1 NORMAL <2 MG See_Comment [Auto mated message] code = ICTINDEX) Index/DL The system which generated this result transmit cipriano reference range : 1 NORMAL. The reference range was not used to interpret this result as normal/abnormal . INDEX LIPEMIA (test 1 NORMAL <50 MG See_Comment [Aut omated message] code = LIPINDEX) Index/DL The system which generated this result transmit cipriano reference range : 1 NORMAL. The reference range was not used to interpret this result as normal/abnormal . POC ARTERIAL BLOOD [id number] 09:58:00 Test Item Value Reference Range Interpretation Comments POC ARTERIAL BLOOD 7.428 pH units 7.35-7.45 N GAS PH (test code = POCPHA) POC ARTERIAL BLOOD 50.2 mmHg 35.0-48.0 H GAS PCO2 (test code = [id number]) POC TCO2 ARTERIAL 32.6 MMOL/L 22.0-29.0 H (test code = POCTCO2) ARTERIAL BLOOD GAS 98.3 mmHg 83.0-108.0 N PO2 (test code = TUQDB4U) POC HCO3 ARTERIAL 33.2 MMOL/L 21.0-28.0 H (test code = JQNKKN0I) POC BASE EXCESS 7.6 MMOL/L See_Comment H [Automated (test code = message] The sy stem POCBEA) which generated this result transmitted reference range : -2.0 to 3.0. Th e reference range was not used to interpret this result as normal/abnormal . POC O2 SATURATION 98 % 94-98 N (test code = POCO2S) SODIUM (test code = 142 MMOL/L 138-146 N NA/ABG) POTASSIUM (test 3.8 MMOL/L 3.5-4.5 N code = K/ABG) HEMOGLOBIN (test 11.6 G/DL 12.0-17.0 L code = HGB/ABG) HEMATOCRIT (test 34 % 38-51 L code = HCT/ABG) POC CALCIUM (test 1.24 MMOL/L 1.15-1.33 N code = POCCA) POC GLUCOSE (test 153 MG/DL 74-100 H code = POCGLU) POC SAMPLE SOURCE Arterial Specimen (test code = Descript POCSAMPLE) POC VENOUS BLOOD [id number] 09:58:00 Test Item Value Reference Range Interpretation Comments POC CALCIUM (test code = 1.15 MMOL/L 1.15-1.33 N POCCA) POC VENOUS BLOOD GAS PH (test 7.376 pH units 7.32-7.43 N code = POCPHV) POC VENOUS BLOOD GAS PCO2 57.6 mmHg 41.0-51.0 H (test code = OOLNMH8J) POC VENOUS BLOOD GAS PO2 41.8 mmHg 10.0-50.0 N (test code = NEXYL2G) POC HCO3 VENOUS (test code = 33.8 MMOL/L 22.0-29.0 H [id number]) POC BASE EXCESS VENOUS (test 7.0 MMOL/L -2.0-3.0 H code = POCBEV) POC O2 SATURATION VENOUS 74 % 60-80 N (test code = OUUM9CH) VENOUS BLOOD GAS FIO2 (test 100 % 21-100 N code = FIO2V) PT. HGB (test code = PHGBVBG) 11.4 G/DL 12.0-17.0 L SODIUM (test code = NA/VBG) 141 MMOL/L 138-146 N POTASSIUM (test code = K/VBG) 3.6 MMOL/L 3.5-4.5 N GLUCOSE (test code = GLU/VBG) 150 MG/DL 74-100 H HEMATOCRIT (test code = 33.0 % 38.0-51.0 L HCT/VBG) O2 CONTENT (test code = O2CT) 33.3 mL/dL 15.0-23.0 H POC SAMPLE SOURCE (test code Venous Descript Specimen = POCSAMPLE) POC VENOUS BLOOD [id number] 09:41:00 Test Item Value Reference Range Interpretation Comments POC CALCIUM (test code = 1.23 MMOL/L 1.15-1.33 N POCCA) POC VENOUS BLOOD GAS PH (test 7.390 pH units 7.32-7.43 N code = POCPHV) POC VENOUS BLOOD GAS PCO2 58.9 mmHg 41.0-51.0 H (test code = BQLYSP6V) POC VENOUS BLOOD GAS PO2 40.9 mmHg 10.0-50.0 N (test code = PJFAU6W) POC HCO3 VENOUS (test code = 35.6 MMOL/L 22.0-29.0 H [id number]) POC BASE EXCESS VENOUS (test 8.7 MMOL/L -2.0-3.0 H code = POCBEV) POC O2 SATURATION VENOUS 74 % 60-80 N (test code = YTED6HE) PT. HGB (test code = PHGBVBG) 12.3 G/DL 12.0-17.0 N SODIUM (test code = NA/VBG) 142 MMOL/L 138-146 N POTASSIUM (test code = K/VBG) 3.9 MMOL/L 3.5-4.5 N GLUCOSE (test code = GLU/VBG) 152 MG/DL 74-100 H HEMATOCRIT (test code = 36.0 % 38.0-51.0 L HCT/VBG) O2 CONTENT (test code = O2CT) 35.1 mL/dL 15.0-23.0 H POC SAMPLE SOURCE (test code Venous Descript Specimen = POCSAMPLE) POC VENOUS BLOOD [id number] 09:41:00 Test Item Value Reference Range Interpretation Comments POC CALCIUM (test code = 1.24 MMOL/L 1.15-1.33 N POCCA) POC VENOUS BLOOD GAS PH (test 7.394 pH units 7.32-7.43 N code = POCPHV) POC VENOUS BLOOD GAS PCO2 58.4 mmHg 41.0-51.0 H (test code = RXRIEH1T) POC VENOUS BLOOD GAS PO2 40.5 mmHg 10.0-50.0 N (test code = YMNSR6L) POC HCO3 VENOUS (test code = 35.7 MMOL/L 22.0-29.0 H [id number]) POC BASE EXCESS VENOUS (test 8.9 MMOL/L -2.0-3.0 H code = POCBEV) POC O2 SATURATION VENOUS 74 % 60-80 N (test code = QHYG2FP) PT. HGB (test code = PHGBVBG) 12.2 G/DL 12.0-17.0 N SODIUM (test code = NA/VBG) 143 MMOL/L 138-146 N POTASSIUM (test code = K/VBG) 3.8 MMOL/L 3.5-4.5 N GLUCOSE (test code = GLU/VBG) 155 MG/DL 74-100 H HEMATOCRIT (test code = 36.0 % 38.0-51.0 L HCT/VBG) O2 CONTENT (test code = O2CT) 35.2 mL/dL 15.0-23.0 H POC SAMPLE SOURCE (test code Venous Descript Specimen = POCSAMPLE) - XR CHEST 1 [id number] 07:15:00 [facility] : 1970 Sex: F FAX: Ruthy Boateng MD [phone] [place]: C St: [facility] FAX: Anthony Galan MD [phone] Patient Name: MARCELLE MEDINA Unit No: [id number] EXAMS: CPT CODE: [id number] XR CHEST 1 V [id number] - XR CHEST 1 V INDICATION:CHF LOCATION: T18 Comparison 08/18/2020 Mild cardiomegaly, with patient rotated to left. Mild atelectasis and pulmonary venous congestion in lower lobes. Trace effusions not excluded. Bony thorax unremarkable. IMPRESSION: No significant change. at 0715 Reported and signed by: Vipul Bassett D.O. CC: Ruthy Boateng MD; Anthony Whittaker MD Dictated Date/Time: 08/19/2020 (714)Technologist: Toyin Jamil; Cindy Couch Transcribed Date/Time: 08/19/2020 (714) By: Zaire Orig Print D/T: S: 08/19/2020 (717) GALDINO Ribeiro NAME: MARCELLE MEDINA [facility] PHYS: [id number] - Ruthy Boateng MD [address] [place] [address] [address] : 1970 AGE: 50 SEX: Cb [place], [place] [id number] [facility] [id number] LOC: [email or web address] W PHONE #: [phone] EXAM DATE: 08/19/2020 STATUS: ADM IN FAX #: [phone] SANDRA: ERYN Dt: PAGE 1 Signed ReportBASIC METABOLIC [id number] 06:54:00 Test Item Value Reference Range Interpretation Comments SODIUM (test code = 134.0 mmol/L 133-144 N NA) POTASSIUM (test 2.5 mmol/L 3.5-5.1 LL ON 08/19/20 AT 0653, code = K) B.LAB.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 The report was conf irmed by read back protocols Y,N: Y. CHLORIDE (test code 92 mmol/L 95-105 L = CL) CARBON DIOXIDE 32 mmol/L 21-32 N (test code = CO2) ANION GAP (test 10.0 GAP calc 4.0-15.0 N code = GAP) GLUCOSE (test code 98 MG/DL 70-110 N = GLU) BLOOD UREA NITROGEN 46 MG/DL 7-18 H (test code = BUN) CREATININE (test 0.67 MG/DL 0.55-1.30 N Results may be code = CREAT) depressed if p atient is takingN-Acetylc ystei ne (NAC) and Metamizole (Dipyrone). CALCIUM (test code 10.0 MG/DL 8.5-10.1 N = CA) INDEX HEMOLYSIS 1 NORMAL <10 MG See_Comment [Automat ed message] (test code = Index/DL The system [employer]) generated this result transmit cipriano reference range : 1 NORMAL. The reference range was not used to interpret this result as normal/abnormal . INDEX ICTERIC (test 1 NORMAL <2 MG See_Comment [Auto mated message] code = ICTINDEX) Index/DL The system which generated this result transmit cipriano reference range : 1 NORMAL. The reference range was not used to interpret this result as normal/abnormal . INDEX LIPEMIA (test 1 NORMAL <50 MG See_Comment [Aut omated message] code = LIPINDEX) Index/DL The system which generated this result transmit cipriano reference range : 1 NORMAL. The reference range was not used to interpret this result as normal/abnormal . [id number] 06:54:00 Test Item Value Reference Range Interpretation Comments MAGNESIUM (test code = MAG) 2.0 MG/DL 1.6-2.6 N CBC W/AUTO [id number] 06:03:00 Test Item Value Reference Range Interpretation Comments WHITE BLOOD CELL (test code = 14.8 K/mm3 4.1-12.1 H WBC) RED BLOOD CELL (test code = RBC) 5.49 M/mm3 3.8-5.5 N HEMOGLOBIN (test code = HGB) 13.8 G/DL 10.6-15.8 N HEMATOCRIT (test code = HCT) 44.7 % 31.8-47.4 N MEAN CELL VOLUME (test code = 81.4 fL 80.1-101.1 N MCV) MEAN CELL HGB (test code = MCH) 25.1 pg 25.3-35.3 L MEAN CELL HGB CONCETRATION (test 30.9 G/DL 32.7-35.1 L code = MCHC) RED CELL DISTRIBUTION WIDTH 16.8 % 12.2-16.4 H (test code = RDW) RED CELL DISTRIBUTION WIDTH 48.5 fL 36.4-46.3 H (test code = RDW-SD) PLATELET COUNT (test code = PLT) 395 K/mm3 155-337 H MEAN PLATELET VOLUME (test code 11.4 fL 6.8-11.2 H = MPV) GRANULOCYTE % (test code = GR%) 69.1 % 37.8-82.6 N IMMATURE GRANULOCYTE % (test 2.0 % 0.0-2.0 N code = IG%) LYMPHOCYTE % (test code = LY%) 20.1 % 14.1-45.4 N MONOCYTE % (test code = MO%) 7.8 % 2.5-11.7 N EOSINOPHIL % (test code = EO%) 0.9 % 0.0-6.2 N BASOPHIL % (test code = BA%) 0.1 % 0.0-2.1 N NUCLEATED RBC % (test code = 0.1 /100WBC% 0.0-1.0 N NRBC%) GRANULOCYTE # (test code = GR#) 10.24 k/mm3 2.0-13.7 N IMMATURE GRANULOCYTE # (test 0.29 K/mm3 0.00-0.03 H code = IG#) LYMPHOCYTE # (test code = LY#) 2.98 K/mm3 0.6-3.8 N MONOCYTE # (test code = MO#) 1.15 K/mm3 0.11-0.59 H EOSINOPHIL # (test code = EO#) 0.13 K/mm3 0.0-0.4 N BASOPHIL # (test code = BA#) 0.02 K/mm3 0.0-0.1 N NUCLEATED RBC # (test code = 0.02 K/mm3 0.0-0.05 N NRBC#) VANCOMYCIN [id number] 08:57:00 Test Item Value Reference Range Interpretation Comments VANCOMYCIN TROUGH 24.4 mcG/ML 10-20 H (test code = VANCT) -------- VANCO MYCIN TROUGH MONITORI NG GOALS:. Vancomy ekta trough should b e obtained prior to 4th dose with Q 8H and Q 12H intervals.. Vancomycin trou gh should be obtai emily prior to 3rd do se with Q 24H and Q 48H intervals.. Vancomycin peak s are not recommended for routine monitoring.---- ------ ----- ------ Indication Trough Goal (mcg/mL)------- ------ -- ------ Bacteremia, Endocarditis, 15-20 Osteomyelitis, MRSA pneumonia, heal thcare acquired pneumo acacia, meningitis, cul tures with RENETTA of 2 f or Vancomycin----- ------ ------ ------ Cellulitis, emp irical coverage 02-14 ------ - ------ UTI, pediatric patient 02-14 ------ - ------ Renal Function Note - Serum creatinin e and blood urea nitr ogen should be monit ored at baseline and every 48H while on Vancomycin. Comments to [facility]: BEFORE 9AM DOSE ON 08/18CBC W/AUTO [id number] 07:08:00 Test Item Value Reference Range Interpretation Comments WHITE BLOOD CELL (test code = 13.6 K/mm3 4.1-12.1 H WBC) RED BLOOD CELL (test code = RBC) 5.25 M/mm3 3.8-5.5 N HEMOGLOBIN (test code = HGB) 13.4 G/DL 10.6-15.8 N HEMATOCRIT (test code = HCT) 43.4 % 31.8-47.4 N MEAN CELL VOLUME (test code = 82.7 fL 80.1-101.1 N MCV) MEAN CELL HGB (test code = MCH) 25.5 pg 25.3-35.3 N MEAN CELL HGB CONCETRATION (test 30.9 G/DL 32.7-35.1 L code = MCHC) RED CELL DISTRIBUTION WIDTH 16.7 % 12.2-16.4 H (test code = RDW) RED CELL DISTRIBUTION WIDTH 50.2 fL 36.4-46.3 H (test code = RDW-SD) PLATELET COUNT (test code = PLT) 411 K/mm3 155-337 H MEAN PLATELET VOLUME (test code 11.2 fL 6.8-11.2 N = MPV) GRANULOCYTE % (test code = GR%) 77.8 % 37.8-82.6 N IMMATURE GRANULOCYTE % (test 2.3 % 0.0-2.0 H code = IG%) LYMPHOCYTE % (test code = LY%) 14.1 % 14.1-45.4 N MONOCYTE % (test code = MO%) 5.6 % 2.5-11.7 N EOSINOPHIL % (test code = EO%) 0.1 % 0.0-6.2 N BASOPHIL % (test code = BA%) 0.1 % 0.0-2.1 N NUCLEATED RBC % (test code = 0.1 /100WBC% 0.0-1.0 N NRBC%) GRANULOCYTE # (test code = GR#) 10.59 k/mm3 2.0-13.7 N IMMATURE GRANULOCYTE # (test 0.32 K/mm3 0.00-0.03 H code = IG#) LYMPHOCYTE # (test code = LY#) 1.93 K/mm3 0.6-3.8 N MONOCYTE # (test code = MO#) 0.77 K/mm3 0.11-0.59 H EOSINOPHIL # (test code = EO#) 0.01 K/mm3 0.0-0.4 N BASOPHIL # (test code = BA#) 0.02 K/mm3 0.0-0.1 N NUCLEATED RBC # (test code = 0.02 K/mm3 0.0-0.05 N NRBC#) BASIC METABOLIC [id number] 07:06:00 Test Item Value Reference Range Interpretation Comments SODIUM (test code = 135.0 mmol/L 133-144 N NA) POTASSIUM (test 3.1 mmol/L 3.5-5.1 L code = K) CHLORIDE (test code 94 mmol/L 95-105 L = CL) CARBON DIOXIDE 35 mmol/L 21-32 H (test code = CO2) ANION GAP (test 6.0 GAP calc 4.0-15.0 N code = GAP) GLUCOSE (test code 101 MG/DL 70-110 N = GLU) BLOOD UREA NITROGEN 42 MG/DL 7-18 H (test code = BUN) CREATININE (test 0.60 MG/DL 0.55-1.30 N Results may be code = CREAT) depressed if p atient is takingN-Acetylc ystei ne (NAC) and Metamizole (Dipyrone). CALCIUM (test code 9.5 MG/DL 8.5-10.1 N = CA) INDEX HEMOLYSIS 1 NORMAL <10 MG See_Comment [Automat ed message] (test code = Index/DL The system [employer] HEMINDEX) generated this result transmit cipriano reference range : 1 NORMAL. The reference range was not used to interpret this result as normal/abnormal . INDEX ICTERIC (test 1 NORMAL <2 MG See_Comment [Auto mated message] code = ICTINDEX) Index/DL The system which generated this result transmit cipriano reference range : 1 NORMAL. The reference range was not used to interpret this result as normal/abnormal . INDEX LIPEMIA (test 1 NORMAL <50 MG See_Comment [Aut omated message] code = LIPINDEX) Index/DL The system which generated this result transmit cipriano reference range : 1 NORMAL. The reference range was not used to interpret this result as normal/abnormal . [id number] 07:06:00 Test Item Value Reference Range Interpretation Comments MAGNESIUM (test code = MAG) 2.0 MG/DL 1.6-2.6 N - XR CHEST 1 [id number] 06:31:00 [facility] : 1970 Sex: F FAX: Anthony Domingo MD [phone] [place]: St: [facility] FAX: Raven Lerma MD Patient Name: MARCELLE MEDINA Unit No: [id number] EXAMS: CPT CODE: [id number] XR CHEST 1 V 05250 Single View Chest. Location: ClinicalIndication: 50-year-old with pneumonia Comparison: Prior day Findings: An AP view of the chest was obtained. Since the prior study, the patient has been extubated andthe NG tube removed. There is mild enlargement of the cardiac silhouette, stable. Infrahilar airspace opacities are again noted, unchanged. No pneumothorax or obvious pleural effusion. No acute osseous abnormality. Impression: 1. Interval extubation. 2. Infrahilar airspace opacities, left greater than right, which obscures the hemidiaphragm, are again noted. These may be atelectasis or pneumonia. at 0631 Reported and signed by: Jerrell Broussard MD CC: Anthony Whittaker MD; Raven Cat MD Dictated Date/Time: 08/18/2020 (630)Technologist: Toyin Jamil; Cindy Couch TranscribedDate/Time: 08/18/2020 (630) By: [email or web address] Orig Print D/T: S: 08/18/2020 (0634) GALDINO Ribeiro NAME: MARCELLE MEDINA [facility] PHYS: LILLY Cat MD,Raven [address] : 1970 AGE: 50 SEX: F [place], [place] [address] LOC: B.ICU13 W PHONE #: [phone] EXAM DATE: 08/18/2020 STATUS: ADM IN FAX #: [phone] RAD NO: DC Dt: PAGE 1 Signed ReportGLUCOSE BEDSIDE [id number] 10:34:00 Test Item Value Reference Range Interpretation Comments GLUCOSE BEDSIDE TESTING (test code 121 MG/DL 70-119 H = GLUBED) ARTERIAL BLOOD [id number] 10:27:00 Test Item Value Reference Range Interpretation Comments ARTERIAL BLOOD GAS 7.53 pH units 7.35-7.45 H PH (test code = PHA) ARTERIAL BLOOD GAS 49 mmHg 35-45 H PCO2 (test code = PCO2A) ARTERIAL BLOOD GAS 57 mmHg 80-100 LL ON AT PO2 (test code = 1026, B.CPS .TJK PO2A) CALLED TO RN VICKY GALINDO. The report was confirmed by re ad back protocols Y,N: Y. BICARBONATE TOTAL 40.7 mmol/L 22.0-26.0 H HCO3 (test code = HCO3) BASE EXCESS (test 18.0 mmol/L -3.0-3.0 H code = OLGA) FIO2 (test code = 50 % (calc) 21-100 N FIO2A) MODALITY (test code CPAP COMMENT DESCRIPTION = MOD) PaO2/FiO2 (test 114.00 mm/Hg code = TTE1QUR2) ABG PEEP (test code 7 cm H20 0.0-99.9 = PEEPA) ABG PRESSURE 12.0 cm H20 See_Comment [Automated SUPPORT (test code message] The system = PSAB[employer]) which generated this result transmitted reference range : 0-. The referen ce range was not u sed to interpret th is result as normal/abnormal . ABG SITE (test code RT RADIAL ARTKIT DESCRIPTION = SITEA) MODIFIED DAINA'S POSITIVE POSITIVE (test code = Circ.CHK MODALL) O2 SATURATION (test 90 % (calc) 95-100 L code = O2S/C) - XR CHEST 1 [id number] 07:42:00 [facility] AMBARSTACYYvonneMARCELLE : 1970 Sex: F FAX: Ruthy Boateng MD [phone] [place]: C St: [facility] FAX: Anthony Galan MD [phone] Patient Name: RUTHSALLYMARCELLE MAY Unit No: [id number] EXAMS: CPT CODE: [id number] XR CHEST 1 V 88990 CHEST 1 VIEW: INDICATION: vent COMPARISON: Comparison is made with prior study of 08/16/2020 Location: T18 A single portable AP view of the chest demonstrates the tip of the endotracheal tube 4 cm above the geovanny. A nasogastric tube extends to the stomach. The heart size is normal with a calcified mildly elongated aorta. Mild linear bibasilar opacities are present.The remaining lung tate are grossly clear. No apparent pleural effusion nor pneumothorax. The visualized bony structures are unremarkable. IMPRESSION: 1. Various lines and tubes are seen in suitable position. 2. Linear bibasilar opacities are most likely subsegmental atelectasis. at 0742 Reported and signed by: Jacky Go MD CC: Ruthy Boateng MD; Anthony Whittaker MD Dictated Date/Time: 08/17/2020 (0742)Technologist: Toyin Jamil Transcribed Date/Time: 08/17/2020 (3142) By: [email or web address] Orig Print D/T: S: 08/17/2020 (0745) GALDINO Ribeiro NAME: MARCELLE MEDINA [facility] PHYS: AHMRA.Luis - Ruthy Boateng MD [address] [place] [address] : 1970 AGE: 50 SEX: F [place], [place] [address] LOC: B.ICU13 W PHONE #: [phone] EXAM DATE: 08/17/2020 STATUS: ADM IN FAX #: [phone] RAD NO: DC Dt: PAGE 1 Signed ReportBASIC METABOLIC [id number] 07:24:00 Test Item Value Reference Range Interpretation Comments SODIUM (test code = 139.0 mmol/L 133-144 N NA) POTASSIUM (test 3.3 mmol/L 3.5-5.1 L code = K) CHLORIDE (test code 98 mmol/L 95-105 N = CL) CARBON DIOXIDE 35 mmol/L 21-32 H (test code = CO2) ANION GAP (test 6.0 GAP calc 4.0-15.0 N code = GAP) GLUCOSE (test code 129 MG/DL 70-110 H = GLU) BLOOD UREA NITROGEN 50 MG/DL 7-18 H (test code = BUN) CREATININE (test 0.70 MG/DL 0.55-1.30 N Results may be code = CREAT) depressed if p atient is takingN-Acetylc ystei ne (NAC) and Metamizole (Dipyrone). CALCIUM (test code 9.8 MG/DL 8.5-10.1 N = CA) INDEX HEMOLYSIS 1 NORMAL <10 MG See_Comment [Automat ed message] (test code = Index/DL The system [employer] HEMINDEX) generated this result transmit cipriano reference range : 1 NORMAL. The reference range was not used to interpret this result as normal/abnormal . INDEX ICTERIC (test 1 NORMAL <2 MG See_Comment [Auto mated message] code = ICTINDEX) Index/DL The system which generated this result transmit cipriano reference range : 1 NORMAL. The reference range was not used to interpret this result as normal/abnormal . INDEX LIPEMIA (test 1 NORMAL <50 MG See_Comment [Aut omated message] code = LIPINDEX) Index/DL The system which generated this result transmit cipriano reference range : 1 NORMAL. The reference range was not used to interpret this result as normal/abnormal . [id number] 07:24:00 Test Item Value Reference Range Interpretation Comments MAGNESIUM (test code = MAG) 2.3 MG/DL 1.6-2.6 N CBC W/AUTO [id number] 07:08:00 Test Item Value Reference Range Interpretation Comments WHITE BLOOD CELL (test code = 11.2 K/mm3 4.1-12.1 N WBC) RED BLOOD CELL (test code = RBC) 4.64 M/mm3 3.8-5.5 N HEMOGLOBIN (test code = HGB) 11.6 G/DL 10.6-15.8 N HEMATOCRIT (test code = HCT) 39.0 % 31.8-47.4 N MEAN CELL VOLUME (test code = 84.1 fL 80.1-101.1 N MCV) MEAN CELL HGB (test code = MCH) 25.0 pg 25.3-35.3 L MEAN CELL HGB CONCETRATION (test 29.7 G/DL 32.7-35.1 L code = MCHC) RED CELL DISTRIBUTION WIDTH 17.0 % 12.2-16.4 H (test code = RDW) RED CELL DISTRIBUTION WIDTH 52.2 fL 36.4-46.3 H (test code = RDW-SD) PLATELET COUNT (test code = PLT) 355 K/mm3 155-337 H MEAN PLATELET VOLUME (test code 11.6 fL 6.8-11.2 H = MPV) GRANULOCYTE % (test code = GR%) 76.0 % 37.8-82.6 N IMMATURE GRANULOCYTE % (test 3.5 % 0.0-2.0 H code = IG%) LYMPHOCYTE % (test code = LY%) 13.6 % 14.1-45.4 L MONOCYTE % (test code = MO%) 6.5 % 2.5-11.7 N EOSINOPHIL % (test code = EO%) 0.1 % 0.0-6.2 N BASOPHIL % (test code = BA%) 0.3 % 0.0-2.1 N NUCLEATED RBC % (test code = 0.0 /100WBC% 0.0-1.0 N NRBC%) GRANULOCYTE # (test code = GR#) 8.50 k/mm3 2.0-13.7 N IMMATURE GRANULOCYTE # (test 0.39 K/mm3 0.00-0.03 H code = IG#) LYMPHOCYTE # (test code = LY#) 1.52 K/mm3 0.6-3.8 N MONOCYTE # (test code = MO#) 0.73 K/mm3 0.11-0.59 H EOSINOPHIL # (test code = EO#) 0.01 K/mm3 0.0-0.4 N BASOPHIL # (test code = BA#) 0.03 K/mm3 0.0-0.1 N NUCLEATED RBC # (test code = 0.00 K/mm3 0.0-0.05 N NRBC#) GLUCOSE BEDSIDE [id number] 21:36:00 Test Item Value Reference Range Interpretation Comments GLUCOSE BEDSIDE TESTING (test code 123 MG/DL 70-119 H = GLUBED) COVID 19 Asymptomatic IH [id number] 18:30:00 Test Item Value Reference Range Interpretation Comments COVID 19 Asymptomatic IH AG (test Negative Neg code = COVNONPUIAG) GLUCOSE BEDSIDE [id number] 13:07:00 Test Item Value Reference Range Interpretation Comments GLUCOSE BEDSIDE TESTING (test code 182 MG/DL 70-119 H = GLUBED) - CT C-SPINE W/O [id number] 11:35:00 [facility]: MARCELLE MEDINA : 1970 Sex: F Patient Name: MARCELLE MEDINA Unit No: [id number] EXAMS: CPT CODE: [id number] CT C-SPINE W/O CONT 93181 REASON FOR EXAM: COPD, intubation, CT cervical spine, unenhanced with reformatted sagittal and coronal images. COMPARISON:None All studies use automated exposure control, iterative reconstruction technique, and/or adjustment of mA and/or kV according to patient size for optimum radiation dose reduction The study is performed from above the dens through the lung apices. Bone detail limited at the lower neck at C4 level and distally due to large body habitus artifact. The vertebral bodies are free of fracture and have symmetric appearance. 3. The soft tissue window settings do not reveal apical pneumothorax or paraspinal hematoma. Fluid seen in the mastoids bilaterally and in the right middle ear, otitis media. Left middleear appropriately aerated. Large body habitus is limiting for detail of the soft tissues of the lower neck. ET and NG tubes in place. No evidence of pneumomediastinum, either. Reformatted images show good alignment and no fractures can be identified, either. . IMPRESSION: No fracture seen. Good alignment in the cervical spine. Detail limited at the lower levels due to body habitus considerations. Intubation with no evidence of pneumomediastinum or pneumothorax. NG tube in place. Location: U19 at 1135 Reported and signed by: Jerrell Avalos M.D CC: Anthony Whittaker MD Dictated Date/Time: 08/16/2020 (4991) Technologist: Valarie Romano - Barney CTDI: 23.67 DLP: 510.29 Trnscrpt: 08/16/2020 (3880) Anabela.RCM1 [facility] NAME: MARCELLE MEDINA MED[facility] IMAG[facility] PHYS: BHUAL - Bhuriwala,Ali A MD [address] [place] [address] BLVD : 1970 AGE: 50 SEX: CASEY ARIAS [facility] LOC: B.ICU13 W PHONE #: [phone] EXAM DATE: 08/16/2020 STATUS: ADM IN FAX #: [phone] RAD #: D/C DT PAGE 1 Signed Report Patient Name: MARCELLE MEDINA Unit No: [id number] EXAMS: CPT CODE: [id number] CT C-SPINE W/O CONT 25886 <Continued> Orig Print D/T: S: 08/16/2020 (1138) GALDINO Ribeiro NAME: MARCELLE MEDINA [facility] PHYS: Anthony Cuevas MD [address] [place] [address] BLVD : 1970 AGE: 50 SEX: Cb [place] [address] LOC: B.ICU13 W PHONE #: [phone] EXAM DATE: 08/16/2020 STATUS: ADM IN FAX #: [phone] RAD #: D/C DT PAGE 2 Signed ReportCBC W/MANUAL [id number] 07:17:00 Test Item Value Reference Range Interpretation Comments WHITE BLOOD CELL (test 12.2 K/mm3 4.1-12.1 H code = WBC) RED BLOOD CELL (test 4.19 M/mm3 3.8-5.5 N code = RBC) HEMOGLOBIN (test code = 10.6 G/DL 10.6-15.8 N HGB) HEMATOCRIT (test code = 36.1 % 31.8-47.4 N HCT) MEAN CELL VOLUME (test 86.2 fL 80.1-101.1 N code = MCV) MEAN CELL HGB (test code 25.3 pg 25.3-35.3 N = MCH) MEAN CELL HGB 29.4 G/DL 32.7-35.1 L CONCETRATION (test code = MCHC) RED CELL DISTRIBUTION 17.1 % 12.2-16.4 H WIDTH (test code = RDW) RED CELL DISTRIBUTION 53.4 fL 36.4-46.3 H WIDTH (test code = RDW-SD) PLATELET COUNT (test 303 K/mm3 155-337 N code = PLT) MEAN PLATELET VOLUME 11.5 fL 6.8-11.2 H (test code = MPV) GRANULOCYTE % (test code 80.3 % 37.8-82.6 N = GR%) IMMATURE GRANULOCYTE % 4.9 % 0.0-2.0 H (test code = IG%) LYMPHOCYTE % (test code 8.8 % 14.1-45.4 L = LY%) MONOCYTE % (test code = 5.6 % 2.5-11.7 N MO%) EOSINOPHIL % (test code 0.2 % 0.0-6.2 N = EO%) BASOPHIL % (test code = 0.2 % 0.0-2.1 N BA%) NUCLEATED RBC % (test 0.0 /100WBC% 0.0-1.0 N code = NRBC%) GRANULOCYTE # (test code 9.83 k/mm3 2.0-13.7 N = GR#) IMMATURE GRANULOCYTE # 0.60 K/mm3 0.00-0.03 H (test code = IG#) LYMPHOCYTE # (test code 1.07 K/mm3 0.6-3.8 N = LY#) MONOCYTE # (test code = 0.68 K/mm3 0.11-0.59 H MO#) EOSINOPHIL # (test code 0.02 K/mm3 0.0-0.4 N = EO#) BASOPHIL # (test code = 0.02 K/mm3 0.0-0.1 N BA#) NUCLEATED RBC # (test 0.00 K/mm3 0.0-0.05 N code = NRBC#) MANUAL DIFF REQUIRED MAN DIFF INDICATED CRITERIA (test code = MDIFF) DIFF/SCN WBC [id number] 07:17:00 Test Item Value Reference Range Interpretation Comments TOTAL CELLS COUNTED 100 #CELLS See_Comment [Automa cipriano (test code = TCC) message] T he system which generated this result transmitted reference range : 100. The refere nce range was not u sed to interpret th is result as normal/abnormal . SEGMENTED NEUTROPHILS 85 % 40-75 H (test code = SEG) LYMPHOCYTE (test code 11 % 18.7-40.6 L = LYMPH) MONOCYTE (test code = 1 % 3.8-11.4 L MON) MYELOCYTE (test code 3 % 0-1 H = MYELO) POLYCHROMASIA (test SLIGHT ON SCAN NONE code = POLC) HYPOCHROMIA (test SLIGHT ON SCAN NONE code = HYPO) ANISOCYTOSIS (test SLIGHT ON SCAN NONE code = ANISO) TEAR DROP CELLS (test RARE ON SCAN NONE code = TEAR) PLATELET ESTIMATE ADEQ ON SCAN ADEQUATE (test code = PLTEST) - XR CHEST 1 [id number] 07:06:00 [facility] MARCELLE ALMENDAREZ : 1970 Sex: F FAX: Ruthy Boateng MD [phone] [place]: C St: [facility] FAX: Anthony Galan MD [phone] Patient Name: CAROLMARCELLE ALMENDAREZ Unit No: [id number] EXAMS: CPT CODE: [id number] XR CHEST 1 V 63969 EXAM: - XR CHEST 1 V INDICATION: vent Location: T 18. COMPARISON: 08/16/2020 TECHNIQUE: Frontal view of the chest. FINDINGS: Unchanged appearance of bilateral opacities. Cardiomediastinal silhouette and osseous structures appear unremarkable. No pleural effusion appreciated.Endotracheal tube and NG tube appear unchanged. IMPRESSION: Unchanged bilateral opacities. at 0706 Reported and signed by: Marcelo Henriquez MD CC: Ruthy Boateng MD; Anthony Whittaker MD Dictated Date/Time: 08/16/2020 (07)Technologist: Fanny Hoang Transcribed Date/Time: 08/16/2020 (07) By: [email or web address] Orig Print D/T: S: 08/16/2020 (0709) GALDINO Ribeiro NAME: MARCELLE MEDINA [facility] PHYS: BANDARMRCheyanne.Ruthy Cai MD [address] [place] [address] BLVD : 1970 AGE: 50 SEX: F [place], [place] [id number] NO: [id number] LOC: B.ICU13 W PHONE #: [phone] EXAM DATE: 08/16/2020 STATUS: ADM IN FAX #: [phone] RAD NO: DC Dt: PAGE 1 Signed ReportCBC W/MANUAL [id number] 04:54:00 Test Item Value Reference Range Interpretation Comments WHITE BLOOD CELL (test 12.2 K/mm3 4.1-12.1 H code = WBC) RED BLOOD CELL (test 4.19 M/mm3 3.8-5.5 N code = RBC) HEMOGLOBIN (test code = 10.6 G/DL 10.6-15.8 N HGB) HEMATOCRIT (test code = 36.1 % 31.8-47.4 N HCT) MEAN CELL VOLUME (test 86.2 fL 80.1-101.1 N code = MCV) MEAN CELL HGB (test code 25.3 pg 25.3-35.3 N = MCH) MEAN CELL HGB 29.4 G/DL 32.7-35.1 L CONCETRATION (test code = MCHC) RED CELL DISTRIBUTION 17.1 % 12.2-16.4 H WIDTH (test code = RDW) RED CELL DISTRIBUTION 53.4 fL 36.4-46.3 H WIDTH (test code = RDW-SD) PLATELET COUNT (test 303 K/mm3 155-337 N code = PLT) MEAN PLATELET VOLUME 11.5 fL 6.8-11.2 H (test code = MPV) GRANULOCYTE % (test code 80.3 % 37.8-82.6 N = GR%) IMMATURE GRANULOCYTE % 4.9 % 0.0-2.0 H (test code = IG%) LYMPHOCYTE % (test code 8.8 % 14.1-45.4 L = LY%) MONOCYTE % (test code = 5.6 % 2.5-11.7 N MO%) EOSINOPHIL % (test code 0.2 % 0.0-6.2 N = EO%) BASOPHIL % (test code = 0.2 % 0.0-2.1 N BA%) NUCLEATED RBC % (test 0.0 /100WBC% 0.0-1.0 N code = NRBC%) GRANULOCYTE # (test code 9.83 k/mm3 2.0-13.7 N = GR#) IMMATURE GRANULOCYTE # 0.60 K/mm3 0.00-0.03 H (test code = IG#) LYMPHOCYTE # (test code 1.07 K/mm3 0.6-3.8 N = LY#) MONOCYTE # (test code = 0.68 K/mm3 0.11-0.59 H MO#) EOSINOPHIL # (test code 0.02 K/mm3 0.0-0.4 N = EO#) BASOPHIL # (test code = 0.02 K/mm3 0.0-0.1 N BA#) NUCLEATED RBC # (test 0.00 K/mm3 0.0-0.05 N code = NRBC#) MANUAL DIFF REQUIRED MAN DIFF INDICATED CRITERIA (test code = MDIFF) DIFF/SCN WBC [id number] 04:54:00 Test Item Value Reference Range Interpretation Comments TOTAL CELLS COUNTED #CELLS See_Comment [[employer] message] (test code = TCC) The system which generated this result transmitted ref erence range: 100. The reference range was not used to int erpret this result as normal/abnormal . SEGMENTED NEUTROPHILS % 40-75 (test code = SEG) LYMPHOCYTE (test code = % 18.7-40.6 LYMPH) MORPHOLOGY COMMENT ON SCAN NORMAL RBCS (test code = MOC) PLATELET ESTIMATE (test ON SCAN ADEQUATE code = PLTEST) CBC W/MANUAL [id number] 04:54:00 Test Item Value Reference Range Interpretation Comments WHITE BLOOD CELL (test 12.2 K/mm3 4.1-12.1 H code = WBC) RED BLOOD CELL (test 4.19 M/mm3 3.8-5.5 N code = RBC) HEMOGLOBIN (test code = 10.6 G/DL 10.6-15.8 N HGB) HEMATOCRIT (test code = 36.1 % 31.8-47.4 N HCT) MEAN CELL VOLUME (test 86.2 fL 80.1-101.1 N code = MCV) MEAN CELL HGB (test code 25.3 pg 25.3-35.3 N = MCH) MEAN CELL HGB 29.4 G/DL 32.7-35.1 L CONCETRATION (test code = MCHC) RED CELL DISTRIBUTION 17.1 % 12.2-16.4 H WIDTH (test code = RDW) RED CELL DISTRIBUTION 53.4 fL 36.4-46.3 H WIDTH (test code = RDW-SD) PLATELET COUNT (test 303 K/mm3 155-337 N code = PLT) MEAN PLATELET VOLUME 11.5 fL 6.8-11.2 H (test code = MPV) GRANULOCYTE % (test code 80.3 % 37.8-82.6 N = GR%) IMMATURE GRANULOCYTE % 4.9 % 0.0-2.0 H (test code = IG%) LYMPHOCYTE % (test code 8.8 % 14.1-45.4 L = LY%) MONOCYTE % (test code = 5.6 % 2.5-11.7 N MO%) EOSINOPHIL % (test code 0.2 % 0.0-6.2 N = EO%) BASOPHIL % (test code = 0.2 % 0.0-2.1 N BA%) NUCLEATED RBC % (test 0.0 /100WBC% 0.0-1.0 N code = NRBC%) GRANULOCYTE # (test code 9.83 k/mm3 2.0-13.7 N = GR#) IMMATURE GRANULOCYTE # 0.60 K/mm3 0.00-0.03 H (test code = IG#) LYMPHOCYTE # (test code 1.07 K/mm3 0.6-3.8 N = LY#) MONOCYTE # (test code = 0.68 K/mm3 0.11-0.59 H MO#) EOSINOPHIL # (test code 0.02 K/mm3 0.0-0.4 N = EO#) BASOPHIL # (test code = 0.02 K/mm3 0.0-0.1 N BA#) NUCLEATED RBC # (test 0.00 K/mm3 0.0-0.05 N code = NRBC#) MANUAL DIFF REQUIRED MAN DIFF INDICATED CRITERIA (test code = MDIFF) DIFF/SCN WBC [id number] 04:54:00 Test Item Value Reference Range Interpretation Comments TOTAL CELLS COUNTED #CELLS See_Comment [Automa cipriano message] (test code = TCC) The system which generated this result transmitted ref erence range: 100. The reference range was not used to int erpret this result as normal/abnormal . SEGMENTED NEUTROPHILS % 40-75 (test code = SEG) LYMPHOCYTE (test code = % 18.7-40.6 LYMPH) MORPHOLOGY COMMENT ON SCAN NORMAL RBCS (test code = MOC) PLATELET ESTIMATE (test ON SCAN ADEQUATE code = PLTEST) BASIC METABOLIC [id number] 04:51:00 Test Item Value Reference Range Interpretation Comments SODIUM (test code = 138.0 mmol/L 133-144 N NA) POTASSIUM (test 4.0 mmol/L 3.5-5.1 N code = K) CHLORIDE (test code 102 mmol/L 95-105 N = CL) CARBON DIOXIDE 33 mmol/L 21-32 H (test code = CO2) ANION GAP (test 3.0 GAP calc 4.0-15.0 L code = GAP) GLUCOSE (test code 140 MG/DL 70-110 H = GLU) BLOOD UREA NITROGEN 42 MG/DL 7-18 H (test code = BUN) CREATININE (test 0.60 MG/DL 0.55-1.30 N Results may be code = CREAT) depressed if p atient is takingN-Acetylc ystei ne (NAC) and Metamizole (Dipyrone). CALCIUM (test code 9.6 MG/DL 8.5-10.1 N = CA) INDEX HEMOLYSIS 3 SMALL 25-50 See_Comment [Automated message] (test code = MG Index/DL The system whabby h HEMINDEX) generated this result transmit cipriano reference range : 1 NORMAL. The reference range was not used to interpret this result as normal/abnormal . INDEX ICTERIC (test 1 NORMAL <2 MG See_Comment [Auto mated message] code = ICTINDEX) Index/DL The system which generated this result transmit cipriano reference range : 1 NORMAL. The reference range was not used to interpret this result as normal/abnormal . INDEX LIPEMIA (test 1 NORMAL <50 MG See_Comment [Aut omated message] code = LIPINDEX) Index/DL The system which generated this result transmit cipriano reference range : 1 NORMAL. The reference range was not used to interpret this result as normal/abnormal . GLUCOSE BEDSIDE [id number] 04:41:00 Test Item Value Reference Range Interpretation Comments GLUCOSE BEDSIDE TESTING (test code 138 MG/DL 70-119 H = GLUBED) ARTERIAL BLOOD [id number] 04:28:00 Test Item Value Reference Range Interpretation Comments ARTERIAL BLOOD GAS 7.44 pH units 7.35-7.45 N PH (test code = PHA) ARTERIAL BLOOD GAS 54 mmHg 35-45 H PCO2 (test code = PCO2A) ARTERIAL BLOOD GAS 81 mmHg 80-100 N PO2 (test code = PO2A) BICARBONATE TOTAL 36.5 mmol/L 22.0-26.0 H HCO3 (test code = HCO3) BASE EXCESS (test 12.4 mmol/L -3.0-3.0 H code = OLGA) FIO2 (test code = 100 % (calc) 21-100 N FIO2A) MODALITY (test code SIMV COMMENT DESCRIPTION = MOD) PaO2/FiO2 (test 81.00 mm/Hg code = [id number]) ABG PATIENT RESP 16 /MIN PT RespRate RATE (test code = RRPATA) ABG TIDAL VOLUME 600 ML (test code = TVA) ABG PEEP (test code 12.0 cm H20 0.0-99.9 = PEEPA) ABG PRESSURE 15.0 cm H20 See_Comment [Automated SUPPORT (test code message] The system = PSABG) which generated this result transmitted reference range : 0-. The referen ce range was not u sed to interpret th is result as normal/abnormal . ABG SITE (test code RT RADIAL ARTKIT DESCRIPTION = SITEA) MODIFIED DAINA'S POSITIVE POSITIVE (test code = Circ.CHK MODALL) O2 SATURATION (test 96 % (calc) 95-100 N code = O2S/C) VANCOMYCIN [id number] 00:59:00 Test Item Value Reference Range Interpretation Comments VANCOMYCIN TROUGH 28.9 mcG/ML 10-20 HH 08/16/20 0 057, (test code = VANCT) Results called to: GHASSAN FIGUEROA-------- ------ ------ --VANC OMYCIN TROUGH MONITORING GOAL S:. Vancomycin trou gh should be obtai emily prior to 4th do se with Q 8H and Q 12H intervals.. Vancomycin trou gh should be obtai emily prior to 3rd do se with Q 24H and Q 48H intervals.. Vancomycin peak s are not recommended for routine monitoring.---- ------ ----- ------ Indication Trough Goal (mcg/mL)------- ------ -- ------ Bacteremia, Endocarditis, 1520 Osteomyelitis, MRSA pneumonia, heal thcare acquired pneumo acacia, meningitis, cul tures with RENETTA of 2 f or Vancomycin----- ------ ------ ------ Cellulitis, emp irical coverage 02-14 ------ - ------ UTI, pediatric patient 02-14 ------ - ------ Renal Function Note - Serum creatinin e and blood urea nitr ogen should be monit ored at baseline and every 48H while on Vancomycin. GLUCOSE BEDSIDE [id number] 20:20:00 Test Item Value Reference Range Interpretation Comments GLUCOSE BEDSIDE TESTING (test code 159 MG/DL 70-119 H = GLUBED) ARTERIAL BLOOD [id number] 14:28:00 Test Item Value Reference Range Interpretation Comments ARTERIAL BLOOD GAS 7.43 pH units 7.35-7.45 N PH (test code = PHA) ARTERIAL BLOOD GAS 55 mmHg 35-45 H PCO2 (test code = PCO2A) ARTERIAL BLOOD GAS 55 mmHg 80-100 LL ON AT PO2 (test code = 1428, B.CPS .JJS PO2A) CALLED TO DR BANDAR DIAZ. The report wa s confirmed by re ad back protocols Y,N: Y. BICARBONATE TOTAL 36.9 mmol/L 22.0-26.0 H HCO3 (test code = HCO3) BASE EXCESS (test 12.6 mmol/L -3.0-3.0 H code = OLGA) FIO2 (test code = 60 % (calc) 21-100 N FIO2A) MODALITY (test code SIMV COMMENT DESCRIPTION = MOD) PaO2/FiO2 (test 91.66 mm/Hg code = [id number]) ABG PATIENT RESP 16 /MIN PT RespRate RATE (test code = RRPATA) ABG TIDAL VOLUME 600 ML (test code = TVA) ABG PEEP (test code 8.0 cm H20 0.0-99.9 = PEEPA) ABG PRESSURE 15.0 cm H20 See_Comment [Automated SUPPORT (test code message] The system = PSABG) which generated this result transmitted reference range : 0-. The referen ce range was not u sed to interpret th is result as normal/abnormal . ABG SITE (test code LEFT RADIAL DESCRIPTION = SITEA) ARTKIT MODIFIED DAINA'S POSITIVE POSITIVE (test code = Circ.CHK MODALL) O2 SATURATION (test 87 % (calc) 95-100 L code = O2S/C) Covid 19 InHouse [id number] 13:24:00 Test Item Value Reference Range Interpretation Comments Covid 19 Negative Negative A negative resu lt does not InHouse NTX preclude the SA RS-COV-2 (test code = viralinfection and should not be [id number]) used as the so le basis forpatient terri gement decisions. Negative result s must becombined with clinical o bservations, patient history , andepidemiologi brooke information. Viral levels in clinicalsamples below the detec tion limit of the assay could daria d tonegative results. This t est was performed using the [employer] SmartTM COVID-19 PCRassay. This test was developed and i ts performancechar acteristics were determined by [facility]. Thi s test has notbeen FDA alejandro ared or approved. This test is au thorized by theA under Em ergency Use Authorization(E UA). The EUA willremain in e ffect unless it is terminated o r revoked by FDA . Testing staci eters have not been validated for screeningasympt omatic patients. This test was v alidated according to th e FDA's guidancedocumen t "Policy for Diagnostics marlon ting in LaboratoriesCer tified to Perform High Complexity Testing under CLIA". First test? NoEmployed in Healthcare? NoSymptomatic as defined by CDC? YesDate of Symptom Onset: [id number] due to COVID? YesIn ICU due to COVID? YesResident in a congregate care setting? No? NoAge at collection: Y GLUCOSE BEDSIDE [id number] 11:30:00 Test Item Value Reference Range Interpretation Comments GLUCOSE BEDSIDE TESTING (test code 165 MG/DL 70-119 H = GLUBED) - XR CHEST 1 [id number] 07:04:00 [facility] : 1970 Sex: F FAX: Ruthy Boateng MD [phone] [place]: C St: ADM FAX: Anthony Galan MD [phone] Patient Name: MARCELLE MEDINA Unit No: [id number] EXAMS: CPT CODE: [id number] XR CHEST 1 V [id number] EXAM: - XR CHEST 1 V INDICATION: vent Location: T 18. COMPARISON: 08/14/2020 TECHNIQUE: Frontal view of the chest. FINDINGS: Bilateral opacities appear to be unchanged. Cardiomediastinal silhouette and osseous structures appear unremarkable. No pleural effusion appreciated. Unchanged appearance of endotracheal tube and NG tube IMPRESSION: Unchanged appearance of bilateral opacities, suggesting edema and/or pneumonia. at 0704 Reported and signed by: Marcelo Henriquez MD CC: Ruthy Boateng MD; Anthony Whittaker MD Dictated Date/Time: 08/15/2020 (0704)Technologist: Sandra Moses Transcribed Date/Time: 08/15/2020 (0704) By: [email or web address] Orig Print D/T: S: 08/15/2020 (0707) GALDINO Ribeiro NAME: MARCELLE MEDINA [facility] PHYS: [id number] - Ruthy Boateng MD [address] [place] [address] BL : 1970 AGE: 50 SEX: Cb [place], [place] [address] LOC: [id number] PHONE #: [phone] EXAM DATE: 08/15/2020 STATUS: ADM IN FAX #: [phone] RAD NO: DC Dt: PAGE 1 Signed ReportCBC W/MANUAL [id number] 06:32:00 Test Item Value Reference Range Interpretation Comments WHITE BLOOD CELL (test 15.2 K/mm3 4.1-12.1 H code = WBC) RED BLOOD CELL (test 4.08 M/mm3 3.8-5.5 N code = RBC) HEMOGLOBIN (test code = 10.3 G/DL 10.6-15.8 L HGB) HEMATOCRIT (test code = 34.7 % 31.8-47.4 N HCT) MEAN CELL VOLUME (test 85.0 fL 80.1-101.1 N code = MCV) MEAN CELL HGB (test code 25.2 pg 25.3-35.3 L = MCH) MEAN CELL HGB 29.7 G/DL 32.7-35.1 L CONCETRATION (test code = MCHC) RED CELL DISTRIBUTION 17.2 % 12.2-16.4 H WIDTH (test code = RDW) RED CELL DISTRIBUTION 53.6 fL 36.4-46.3 H WIDTH (test code = RDW-SD) PLATELET COUNT (test 261 K/mm3 155-337 N code = PLT) MEAN PLATELET VOLUME 12.0 fL 6.8-11.2 H (test code = MPV) GRANULOCYTE % (test code 82.7 % 37.8-82.6 H = GR%) IMMATURE GRANULOCYTE % 4.5 % 0.0-2.0 H (test code = IG%) LYMPHOCYTE % (test code 7.6 % 14.1-45.4 L = LY%) MONOCYTE % (test code = 4.8 % 2.5-11.7 N MO%) EOSINOPHIL % (test code 0.1 % 0.0-6.2 N = EO%) BASOPHIL % (test code = 0.3 % 0.0-2.1 N BA%) NUCLEATED RBC % (test 0.0 /100WBC% 0.0-1.0 N code = NRBC%) GRANULOCYTE # (test code 12.56 k/mm3 2.0-13.7 N = GR#) IMMATURE GRANULOCYTE # 0.68 K/mm3 0.00-0.03 H (test code = IG#) LYMPHOCYTE # (test code 1.15 K/mm3 0.6-3.8 N = LY#) MONOCYTE # (test code = 0.73 K/mm3 0.11-0.59 H MO#) EOSINOPHIL # (test code 0.01 K/mm3 0.0-0.4 N = EO#) BASOPHIL # (test code = 0.04 K/mm3 0.0-0.1 N BA#) NUCLEATED RBC # (test 0.00 K/mm3 0.0-0.05 N code = NRBC#) MANUAL DIFF REQUIRED MAN DIFF INDICATED CRITERIA (test code = MDIFF) DIFF/SCN WBC [id number] 06:32:00 Test Item Value Reference Range Interpretation Comments TOTAL CELLS COUNTED 100 #CELLS See_Comment [Automa cipriano (test code = TCC) message] T he system which generated this result transmitted reference range : 100. The refere nce range was not u sed to interpret th is result as normal/abnormal . SEGMENTED NEUTROPHILS 81 % 40-75 H (test code = SEG) LYMPHOCYTE (test code 10 % 18.7-40.6 L = LYMPH) MONOCYTE (test code = 5 % 3.8-11.4 N MON) METAMYELOCYTE (test 2 % 0-2 N code = META) MYELOCYTE (test code 2 % 0-1 H = MYELO) HYPOCHROMIA (test MOD ON SCAN NONE A code = HYPO) ANISOCYTOSIS (test SLIGHT ON SCAN NONE code = ANISO) STOMATOCYTES (test MOD ON SCAN NONE A code = STO) PLATELET ESTIMATE ADEQ ON SCAN ADEQUATE (test code = PLTEST) BASIC METABOLIC [id number] 05:34:00 Test Item Value Reference Range Interpretation Comments SODIUM (test code = 139.0 mmol/L 133-144 N NA) POTASSIUM (test 4.1 mmol/L 3.5-5.1 N code = K) CHLORIDE (test code 102 mmol/L 95-105 N = CL) CARBON DIOXIDE 32 mmol/L 21-32 N (test code = CO2) ANION GAP (test 5.0 GAP calc 4.0-15.0 N code = GAP) GLUCOSE (test code 148 MG/DL 70-110 H = GLU) BLOOD UREA NITROGEN 42 MG/DL 7-18 H (test code = BUN) CREATININE (test 0.42 MG/DL 0.55-1.30 L Results may be code = CREAT) depressed if p atient is takingN-Acetylc ystei ne (NAC) and Metamizole (Dipyrone). CALCIUM (test code 9.3 MG/DL 8.5-10.1 N = CA) INDEX HEMOLYSIS 2 TRACE 10-25 See_Comment [Automated message] (test code = MG Index/DL The system whic h HEMINDEX) generated this result transmit cipriano reference range : 1 NORMAL. The reference range was not used to interpret this result as normal/abnormal . INDEX ICTERIC (test 1 NORMAL <2 MG See_Comment [Auto mated message] code = ICTINDEX) Index/DL The system which generated this result transmit cipriano reference range : 1 NORMAL. The reference range was not used to interpret this result as normal/abnormal . INDEX LIPEMIA (test 1 NORMAL <50 MG See_Comment [Aut omated message] code = LIPINDEX) Index/DL The system which generated this result transmit cipriano reference range : 1 NORMAL. The reference range was not used to interpret this result as normal/abnormal . BASIC METABOLIC [id number] 05:22:00 Test Item Value Reference Range Interpretation Comments SODIUM (test code = 139.0 mmol/L 133-144 N NA) POTASSIUM (test 4.1 mmol/L 3.5-5.1 N code = K) CHLORIDE (test code 102 mmol/L 95-105 N = CL) CARBON DIOXIDE mmol/L 21-32 (test code = CO2) ANION GAP (test GAP calc 4.0-15.0 code = GAP) GLUCOSE (test code MG/DL 70-110 = GLU) BLOOD UREA NITROGEN MG/DL 7-18 (test code = BUN) CREATININE (test MG/DL 0.55-1.30 code = CREAT) CALCIUM (test code MG/DL 8.5-10.1 = CA) INDEX HEMOLYSIS 2 TRACE 10-25 See_Comment [Automated message] (test code = MG Index/DL The system whic h HEMINDEX) generated this result transmit cipriano reference range : 1 NORMAL. The reference range was not used to interpret this result as normal/abnormal . INDEX ICTERIC (test 1 NORMAL <2 MG See_Comment [Auto mated message] code = ICTINDEX) Index/DL The system which generated this result transmit cipriano reference range : 1 NORMAL. The reference range was not used to interpret this result as normal/abnormal . INDEX LIPEMIA (test 1 NORMAL <50 MG See_Comment [Aut omated message] code = LIPINDEX) Index/DL The system which generated this result transmit cipriano reference range : 1 NORMAL. The reference range was not used to interpret this result as normal/abnormal . CBC W/MANUAL [id number] 04:57:00 Test Item Value Reference Range Interpretation Comments WHITE BLOOD CELL (test 15.2 K/mm3 4.1-12.1 H code = WBC) RED BLOOD CELL (test 4.08 M/mm3 3.8-5.5 N code = RBC) HEMOGLOBIN (test code = 10.3 G/DL 10.6-15.8 L HGB) HEMATOCRIT (test code = 34.7 % 31.8-47.4 N HCT) MEAN CELL VOLUME (test 85.0 fL 80.1-101.1 N code = MCV) MEAN CELL HGB (test code 25.2 pg 25.3-35.3 L = MCH) MEAN CELL HGB 29.7 G/DL 32.7-35.1 L CONCETRATION (test code = MCHC) RED CELL DISTRIBUTION 17.2 % 12.2-16.4 H WIDTH (test code = RDW) RED CELL DISTRIBUTION 53.6 fL 36.4-46.3 H WIDTH (test code = RDW-SD) PLATELET COUNT (test 261 K/mm3 155-337 N code = PLT) MEAN PLATELET VOLUME 12.0 fL 6.8-11.2 H (test code = MPV) GRANULOCYTE % (test code 82.7 % 37.8-82.6 H = GR%) IMMATURE GRANULOCYTE % 4.5 % 0.0-2.0 H (test code = IG%) LYMPHOCYTE % (test code 7.6 % 14.1-45.4 L = LY%) MONOCYTE % (test code = 4.8 % 2.5-11.7 N MO%) EOSINOPHIL % (test code 0.1 % 0.0-6.2 N = EO%) BASOPHIL % (test code = 0.3 % 0.0-2.1 N BA%) NUCLEATED RBC % (test 0.0 /100WBC% 0.0-1.0 N code = NRBC%) GRANULOCYTE # (test code 12.56 k/mm3 2.0-13.7 N = GR#) IMMATURE GRANULOCYTE # 0.68 K/mm3 0.00-0.03 H (test code = IG#) LYMPHOCYTE # (test code 1.15 K/mm3 0.6-3.8 N = LY#) MONOCYTE # (test code = 0.73 K/mm3 0.11-0.59 H MO#) EOSINOPHIL # (test code 0.01 K/mm3 0.0-0.4 N = EO#) BASOPHIL # (test code = 0.04 K/mm3 0.0-0.1 N BA#) NUCLEATED RBC # (test 0.00 K/mm3 0.0-0.05 N code = NRBC#) MANUAL DIFF REQUIRED MAN DIFF INDICATED CRITERIA (test code = MDIFF) DIFF/SCN WBC [id number] 04:57:00 Test Item Value Reference Range Interpretation Comments TOTAL CELLS COUNTED #CELLS See_Comment [Automa cipriano message] (test code = TCC) The system which generated this result transmitted ref erence range: 100. The reference range was not used to int erpret this result as normal/abnormal . SEGMENTED NEUTROPHILS % 40-75 (test code = SEG) LYMPHOCYTE (test code = % 18.7-40.6 LYMPH) MORPHOLOGY COMMENT ON SCAN NORMAL RBCS (test code = MOC) PLATELET ESTIMATE (test ON SCAN ADEQUATE code = PLTEST) CBC W/MANUAL [id number] 04:57:00 Test Item Value Reference Range Interpretation Comments WHITE BLOOD CELL (test 15.2 K/mm3 4.1-12.1 H code = WBC) RED BLOOD CELL (test 4.08 M/mm3 3.8-5.5 N code = RBC) HEMOGLOBIN (test code = 10.3 G/DL 10.6-15.8 L HGB) HEMATOCRIT (test code = 34.7 % 31.8-47.4 N HCT) MEAN CELL VOLUME (test 85.0 fL 80.1-101.1 N code = MCV) MEAN CELL HGB (test code 25.2 pg 25.3-35.3 L = MCH) MEAN CELL HGB 29.7 G/DL 32.7-35.1 L CONCETRATION (test code = MCHC) RED CELL DISTRIBUTION 17.2 % 12.2-16.4 H WIDTH (test code = RDW) RED CELL DISTRIBUTION 53.6 fL 36.4-46.3 H WIDTH (test code = RDW-SD) PLATELET COUNT (test 261 K/mm3 155-337 N code = PLT) MEAN PLATELET VOLUME 12.0 fL 6.8-11.2 H (test code = MPV) GRANULOCYTE % (test code 82.7 % 37.8-82.6 H = GR%) IMMATURE GRANULOCYTE % 4.5 % 0.0-2.0 H (test code = IG%) LYMPHOCYTE % (test code 7.6 % 14.1-45.4 L = LY%) MONOCYTE % (test code = 4.8 % 2.5-11.7 N MO%) EOSINOPHIL % (test code 0.1 % 0.0-6.2 N = EO%) BASOPHIL % (test code = 0.3 % 0.0-2.1 N BA%) NUCLEATED RBC % (test 0.0 /100WBC% 0.0-1.0 N code = NRBC%) GRANULOCYTE # (test code 12.56 k/mm3 2.0-13.7 N = GR#) IMMATURE GRANULOCYTE # 0.68 K/mm3 0.00-0.03 H (test code = IG#) LYMPHOCYTE # (test code 1.15 K/mm3 0.6-3.8 N = LY#) MONOCYTE # (test code = 0.73 K/mm3 0.11-0.59 H MO#) EOSINOPHIL # (test code 0.01 K/mm3 0.0-0.4 N = EO#) BASOPHIL # (test code = 0.04 K/mm3 0.0-0.1 N BA#) NUCLEATED RBC # (test 0.00 K/mm3 0.0-0.05 N code = NRBC#) MANUAL DIFF REQUIRED MAN DIFF INDICATED CRITERIA (test code = MDIFF) DIFF/SCN WBC [id number] 04:57:00 Test Item Value Reference Range Interpretation Comments TOTAL CELLS COUNTED #CELLS See_Comment [Automa cipriano message] (test code = TCC) The system which generated this result transmitted ref erence range: 100. The reference range was not used to int erpret this result as normal/abnormal . SEGMENTED NEUTROPHILS % 40-75 (test code = SEG) LYMPHOCYTE (test code = % 18.7-40.6 LYMPH) MORPHOLOGY COMMENT ON SCAN NORMAL RBCS (test code = MOC) PLATELET ESTIMATE (test ON SCAN ADEQUATE code = PLTEST) ARTERIAL BLOOD [id number] 04:44:00 Test Item Value Reference Range Interpretation Comments ARTERIAL BLOOD GAS PH (test 7.52 pH units 7.35-7.45 H code = PHA) ARTERIAL BLOOD GAS PCO2 44 mmHg 35-45 N (test code = PCO2A) ARTERIAL BLOOD GAS PO2 61 mmHg 80-100 L (test code = PO2A) BICARBONATE TOTAL HCO3 36.2 mmol/L 22.0-26.0 H (test code = HCO3) BASE EXCESS (test code = 13.3 mmol/L -3.0-3.0 H OLGA) FIO2 (test code = FIO2A) 60 % (calc) 21-100 N MODALITY (test code = MOD) AC COMMENT DESCRIPTION PaO2/FiO2 (test code = 101.66 mm/Hg [id number]) ABG PATIENT RESP RATE (test 22 /MIN PT RespRate code = RRPATA) ABG TIDAL VOLUME (test code 500 ML = TVA) ABG PEEP (test code = 8 cm H20 0.0-99.9 PEEPA) ABG SITE (test code = RT RADIAL ARTKIT DESCRIPTION SITEA) MODIFIED DAINA'S (test code POSITIVE Circ.CHK POSITIVE = MODALL) O2 SATURATION (test code = 93 % (calc) 95-100 L O2S/C) GLUCOSE BEDSIDE [id number] 21:22:00 Test Item Value Reference Range Interpretation Comments GLUCOSE BEDSIDE TESTING (test code 107 MG/DL 70-119 N = GLUBED) VANCOMYCIN [id number] 17:10:00 Test Item Value Reference Range Interpretation Comments VANCOMYCIN TROUGH 18.9 mcG/ML 10-20 N (test code = VANCT) -------- VANCO MYCIN TROUGH MONITORI NG GOALS:. Vancomy ekta trough should b e obtained prior to 4th dose with Q 8H and Q 12H intervals.. Vancomycin trou gh should be obtai emily prior to 3rd do se with Q 24H and Q 48H intervals.. Vancomycin peak s are not recommended for routine monitoring.---- ------ ----- ------ Indication Trough Goal (mcg/mL)------- ------ -- ------ Bacteremia, Endocarditis, 15-20 Osteomyelitis, MRSA pneumonia, heal thcare acquired pneumo acacia, meningitis, cul tures with RENETTA of 2 f or Vancomycin----- ------ ------ ------ Cellulitis, emp irical coverage 02-14 ------ - ------ UTI, pediatric patient 02-14 ------ - ------ Renal Function Note - Serum creatinin e and blood urea nitr ogen should be monit ored at baseline and every 48H while on Vancomycin. BASIC METABOLIC [id number] 17:05:00 Test Item Value Reference Range Interpretation Comments SODIUM (test code = 140.0 mmol/L 133-144 N NA) POTASSIUM (test 3.8 mmol/L 3.5-5.1 N code = K) CHLORIDE (test code 101 mmol/L 95-105 N = CL) CARBON DIOXIDE 33 mmol/L 21-32 H (test code = CO2) ANION GAP (test 6.0 GAP calc 4.0-15.0 N code = GAP) GLUCOSE (test code 163 MG/DL 70-110 H = GLU) BLOOD UREA NITROGEN 41 MG/DL 7-18 H (test code = BUN) CREATININE (test 0.40 MG/DL 0.55-1.30 L Results may be code = CREAT) depressed if p atient is takingN-Acetylc ystei ne (NAC) and Metamizole (Dipyrone). CALCIUM (test code 9.3 MG/DL 8.5-10.1 N = CA) INDEX HEMOLYSIS 1 NORMAL <10 MG See_Comment [Automat ed message] (test code = Index/DL The system whic h HEMINDEX) generated this result transmit cipriano reference range : 1 NORMAL. The reference range was not used to interpret this result as normal/abnormal . INDEX ICTERIC (test 1 NORMAL <2 MG See_Comment [Auto mated message] code = ICTINDEX) Index/DL The system which generated this result transmit cipriano reference range : 1 NORMAL. The reference range was not used to interpret this result as normal/abnormal . INDEX LIPEMIA (test 1 NORMAL <50 MG See_Comment [Aut omated message] code = LIPINDEX) Index/DL The system which generated this result transmit cipriano reference range : 1 NORMAL. The reference range was not used to interpret this result as normal/abnormal . BASIC METABOLIC [id number] 17:04:00 Test Item Value Reference Range Interpretation Comments SODIUM (test code = 140.0 mmol/L 133-144 N NA) POTASSIUM (test 3.8 mmol/L 3.5-5.1 N code = K) CHLORIDE (test code 101 mmol/L 95-105 N = CL) CARBON DIOXIDE 33 mmol/L 21-32 H (test code = CO2) ANION GAP (test 6.0 GAP calc 4.0-15.0 N code = GAP) GLUCOSE (test code 163 MG/DL 70-110 H = GLU) BLOOD UREA NITROGEN 41 MG/DL 7-18 H (test code = BUN) CREATININE (test MG/DL 0.55-1.30 code = CREAT) CALCIUM (test code 9.3 MG/DL 8.5-10.1 N = CA) INDEX HEMOLYSIS 1 NORMAL <10 MG See_Comment [Automat ed message] (test code = Index/DL The system whic h HEMINDEX) generated this result transmit cipriano reference range : 1 NORMAL. The reference range was not used to interpret this result as normal/abnormal . INDEX ICTERIC (test 1 NORMAL <2 MG See_Comment [Auto mated message] code = ICTINDEX) Index/DL The system which generated this result transmit cipriano reference range : 1 NORMAL. The reference range was not used to interpret this result as normal/abnormal . INDEX LIPEMIA (test 1 NORMAL <50 MG See_Comment [Aut omated message] code = LIPINDEX) Index/DL The system which generated this result transmit cipriano reference range : 1 NORMAL. The reference range was not used to interpret this result as normal/abnormal . GLUCOSE BEDSIDE [id number] 16:50:00 Test Item Value Reference Range Interpretation Comments GLUCOSE BEDSIDE TESTING (test code 155 MG/DL 70-119 H = GLUBED) GLUCOSE BEDSIDE [id number] 14:19:00 Test Item Value Reference Range Interpretation Comments GLUCOSE BEDSIDE TESTING (test code 123 MG/DL 70-119 H = GLUBED) - XR CHEST 1 [id number] 07:56:00 [facility] : 1970 Sex: F FAX: Ruthy Boateng MD [phone] [place]: St: [facility] FAX: Anthony Galan MD [phone] Patient Name: MARCELLE MEDINA Unit No: [id number] EXAMS: CPT CODE: [id number] XR CHEST 1 V [id number] EXAM: - XR CHEST 1 V INDICATION: covid/vent Location: T 18. COMPARISON: 08/13/2020 TECHNIQUE: Frontal view of thechest. FINDINGS: Bxaka-yd-bbthvwuh bilateral opacities appear unchanged.She appearance of endotracheal tube and NG tube. Cardiomediastinal silhouette and osseous structures appear unremarkable. No pleural effusion appreciated. IMPRESSION: Unchanged bilateral opacities. at 0756 Reported and signed by: Marcelo Henriquez MD CC:Ruthy Boateng MD; Anthony Whittaker MD Dictated Date/Time: 08/14/2020 (0756)Technologist: Toyin Jamil; Cindy [facility] Transcribed Date/Time: 08/14/2020 (0756) By: [email or web address] Orig Print D/T: S: 08/14/2020 (0800) GALDINO Ribeiro NAME: [facility] PHYS: AHMINDY.Luis - Ruthy Boateng MD [address] [place] [address] BLVD : 1970 AGE: 50 SEX: F [place], [place] [address] LOC: B.ICU13 W PHONE #: [phone] EXAM DATE: 08/14/2020 STATUS: ADM IN FAX #: [phone] RAD NO: DC Dt: PAGE 1 Signed ReportCOMPREHENSIVE METABOLIC [id number] 04:53:00 Test Item Value Reference Range Interpretation Comments SODIUM (test code = 139.0 mmol/L 133-144 N NA) POTASSIUM (test code 3.8 mmol/L 3.5-5.1 N = K) CHLORIDE (test code 103 mmol/L 95-105 N = CL) CARBON DIOXIDE (test 33 mmol/L 21-32 H code = CO2) ANION GAP (test code 3.0 GAP calc 4.0-15.0 L = GAP) GLUCOSE (test code = 160 MG/DL 70-110 H GLU) BLOOD UREA NITROGEN 40 MG/DL 7-18 H (test code = BUN) GLOMERULAR 156 estGFR >60 The estimated FILTRATION RATE glomerular (test code = GFR) filtration rate is computed usingpatient ra ce, age, sex, and s yokasta creatinine. If any of theneeded da ta elements are mi ssing the Laboratory can notcompute an estimation of t he glomerular filtration rate .The GFR value units = ml/min/1.73 met er squared. EstimatedGFR va lues above 60 should be interpreted as >60, not anexact number.--- DRUG DOSAGE ALERT -- - Drug dosage adjustments uti lize different calculationpara meter s. CREATININE (test 0.43 MG/DL 0.55-1.30 L Results may be code = CREAT) depressed if p atient is takingN-Acetylc ystei ne (NAC) and Metamizole (Dipyrone). TOTAL PROTEIN (test 6.4 G/DL 6.4-8.2 N code = PROT) ALBUMIN (test code = 2.6 G/DL 3.4-5.0 L ALB) ALBUMIN/GLOBULIN 0.7 RATIO 1.2-2.2 L RATIO (test code = A/G) CALCIUM (test code = 8.9 MG/DL 8.5-10.1 N CA) BILIRUBIN TOTAL 0.57 MG/DL 0.00-1.00 N (test code = BILT) BILIRUBIN DIRECT 0.34 MG/DL 0.00-0.30 H (test code = BILD) BILIRUBIN INDIRECT 0.23 MG/DL 0.2-1.3 N (test code = BILIND) SGOT/AST (test code 24 Unit/L 15-37 N = AST) SGPT/ALT (test code 118 Unit/L 12-78 H = ALT) ALKALINE PHOSPHATASE 80 Unit/L 45-117 N TOTAL (test code = ALKP) INDEX HEMOLYSIS 1 NORMAL <10 See_Comment [Automated message] (test code = MG Index/DL The system [employer] HEMINDEX) generated this result transmit cipriano reference range : 1 NORMAL. The reference range was not used to interpret this result as normal/abnormal . INDEX ICTERIC (test 1 NORMAL <2 MG See_Comment [Auto mated message] code = ICTINDEX) Index/DL The system which generated this result transmit cipriano reference range : 1 NORMAL. The reference range was not used to interpret this result as normal/abnormal . INDEX LIPEMIA (test 1 NORMAL <50 See_Comment [Automa cipriano message] code = LIPINDEX) MG Index/DL The system which generated this result transmit cipriano reference range : 1 NORMAL. The reference range was not used to interpret this result as normal/abnormal . [id number] 04:53:00 Test Item Value Reference Range Interpretation Comments TRIGLYCERIDES (test code 76 MG/DL 0-150 N Res ults may be = TRIG) depressed if geno gordon is takingN-Acetylc ystein e (NAC) and Metamizole (Dipyrone). COMPREHENSIVE METABOLIC [id number] 04:50:00 Test Item Value Reference Range Interpretation Comments SODIUM (test code = 139.0 mmol/L 133-144 N NA) POTASSIUM (test code 3.8 mmol/L 3.5-5.1 N = K) CHLORIDE (test code 103 mmol/L 95-105 N = CL) CARBON DIOXIDE (test 33 mmol/L 21-32 H code = CO2) ANION GAP (test code 3.0 GAP calc 4.0-15.0 L = GAP) GLUCOSE (test code = 160 MG/DL 70-110 H GLU) BLOOD UREA NITROGEN 40 MG/DL 7-18 H (test code = BUN) GLOMERULAR 156 estGFR >60 The estimated FILTRATION RATE glomerular (test code = GFR) filtration rate is computed usingpatient ra ce, age, sex, and s yokasta creatinine. If any of theneeded da ta elements are mi ssing the Laboratory can notcompute an estimation of t he glomerular filtration rate .The GFR value units = ml/min/1.73 met er squared. EstimatedGFR va lues above 60 should be interpreted as >60, not anexact number.--- DRUG DOSAGE ALERT -- - Drug dosage adjustments uti lize different calculationpara meter s. CREATININE (test 0.43 MG/DL 0.55-1.30 L Results may be code = CREAT) depressed if p atient is takingN-Acetylc ystei ne (NAC) and Metamizole (Dipyrone). TOTAL PROTEIN (test G/DL 6.4-8.2 code = PROT) ALBUMIN (test code = 2.6 G/DL 3.4-5.0 L ALB) ALBUMIN/GLOBULIN RATIO 1.2-2.2 RATIO (test code = A/G) CALCIUM (test code = 8.9 MG/DL 8.5-10.1 N CA) BILIRUBIN TOTAL MG/DL 0.00-1.00 (test code = BILT) BILIRUBIN DIRECT 0.34 MG/DL 0.00-0.30 H (test code = BILD) BILIRUBIN INDIRECT MG/DL 0.2-1.3 (test code = BILIND) SGOT/AST (test code Unit/L 15-37 = AST) SGPT/ALT (test code Unit/L 12-78 = ALT) ALKALINE PHOSPHATASE Unit/L 45-117 TOTAL (test code = ALKP) INDEX HEMOLYSIS 1 NORMAL <10 See_Comment [Automated message] (test code = MG Index/DL The system whic h HEMINDEX) generated this result transmit cipriano reference range : 1 NORMAL. The reference range was not used to interpret this result as normal/abnormal . INDEX ICTERIC (test 1 NORMAL <2 MG See_Comment [Auto mated message] code = ICTINDEX) Index/DL The system which generated this result transmit cipriano reference range : 1 NORMAL. The reference range was not used to interpret this result as normal/abnormal . INDEX LIPEMIA (test 1 NORMAL <50 See_Comment [Automa cipriano message] code = LIPINDEX) MG Index/DL The system which generated this result transmit cipriano reference range : 1 NORMAL. The reference range was not used to interpret this result as normal/abnormal . [id number] 04:50:00 Test Item Value Reference Range Interpretation Comments TRIGLYCERIDES (test code = TRIG) MG/DL 0-150 CBC W/AUTO [id number] 04:26:00 Test Item Value Reference Range Interpretation Comments WHITE BLOOD CELL (test code = 16.9 K/mm3 4.1-12.1 H WBC) RED BLOOD CELL (test code = RBC) 4.16 M/mm3 3.8-5.5 N HEMOGLOBIN (test code = HGB) 10.4 G/DL 10.6-15.8 L HEMATOCRIT (test code = HCT) 35.8 % 31.8-47.4 N MEAN CELL VOLUME (test code = 86.1 fL 80.1-101.1 N MCV) MEAN CELL HGB (test code = MCH) 25.0 pg 25.3-35.3 L MEAN CELL HGB CONCETRATION (test 29.1 G/DL 32.7-35.1 L code = MCHC) RED CELL DISTRIBUTION WIDTH 17.5 % 12.2-16.4 H (test code = RDW) RED CELL DISTRIBUTION WIDTH 55.4 fL 36.4-46.3 H (test code = RDW-SD) PLATELET COUNT (test code = PLT) 214 K/mm3 155-337 N MEAN PLATELET VOLUME (test code 11.9 fL 6.8-11.2 H = MPV) GRANULOCYTE % (test code = GR%) 85.0 % 37.8-82.6 H IMMATURE GRANULOCYTE % (test 2.7 % 0.0-2.0 H code = IG%) LYMPHOCYTE % (test code = LY%) 5.4 % 14.1-45.4 L MONOCYTE % (test code = MO%) 6.7 % 2.5-11.7 N EOSINOPHIL % (test code = EO%) 0.1 % 0.0-6.2 N BASOPHIL % (test code = BA%) 0.1 % 0.0-2.1 N NUCLEATED RBC % (test code = 0.0 /100WBC% 0.0-1.0 N NRBC%) GRANULOCYTE # (test code = GR#) 14.35 k/mm3 2.0-13.7 H IMMATURE GRANULOCYTE # (test 0.45 K/mm3 0.00-0.03 H code = IG#) LYMPHOCYTE # (test code = LY#) 0.91 K/mm3 0.6-3.8 N MONOCYTE # (test code = MO#) 1.13 K/mm3 0.11-0.59 H EOSINOPHIL # (test code = EO#) 0.01 K/mm3 0.0-0.4 N BASOPHIL # (test code = BA#) 0.02 K/mm3 0.0-0.1 N NUCLEATED RBC # (test code = 0.00 K/mm3 0.0-0.05 N NRBC#) ARTERIAL BLOOD [id number] 04:19:00 Test Item Value Reference Range Interpretation Comments ARTERIAL BLOOD GAS PH (test 7.45 pH units 7.35-7.45 N code = PHA) ARTERIAL BLOOD GAS PCO2 54 mmHg 35-45 H (test code = PCO2A) ARTERIAL BLOOD GAS PO2 69 mmHg 80-100 L (test code = PO2A) BICARBONATE TOTAL HCO3 37.1 mmol/L 22.0-26.0 H (test code = HCO3) BASE EXCESS (test code = 13.0 mmol/L -3.0-3.0 H OLGA) FIO2 (test code = FIO2A) 60 % (calc) 21-100 N MODALITY (test code = MOD) CMV COMMENT DESCRIPTION PaO2/FiO2 (test code = 115.00 mm/Hg [id number]) ABG PATIENT RESP RATE (test 22 /MIN PT RespRate code = RRPATA) ABG TIDAL VOLUME (test code 500 ML = TVA) ABG PEEP (test code = 10.0 cm H20 0.0-99.9 PEEPA) ABG SITE (test code = RT RADIAL ARTKIT DESCRIPTION SITEA) MODIFIED DAINA'S (test code POSITIVE Circ.CHK POSITIVE = MODALL) O2 SATURATION (test code = 94 % (calc) 95-100 L O2S/C) GLUCOSE BEDSIDE [id number] 21:21:00 Test Item Value Reference Range Interpretation Comments GLUCOSE BEDSIDE TESTING (test code = 85 MG/DL 70-119 N GLUBED) AB HIV 1 12:07:00 Test Item Value Reference Range Interpretation Comments AB HIV 1 2 NonReactive SREEN NR This i s a screening (test code = test only A [id number]) Non-Reactive te st result does not exclude the possibility of exposure to or infection with HIV. HIV antibodies and/orantigen m ay be undetectable in some stages of infection.Curre ntly available assay s for the detection o f p24 antigenand/or antibodies to H IV-1 and/or HIV-2 ma y not detect allinfec cipriano individuals. HIV-1/HIV-2 differentiation testing will be reflexedautomat ically per pathologist approved reflex protocols onall Reactive test r esults. B-TYPE NATRIURETIC [id number] 11:37:00 Test Item Value Reference Range Interpretation Comments B-TYPE NATRIURETIC PEPTIDE < 30.00 PG/ML 0.00-100.00 N (test code = BNP) THYROID STIMULATING [id number] 11:05:00 Test Item Value Reference Range Interpretation Comments THYROID STIMULATING HORMONE 2.370 mc IU/ML 0.340-4.820 N (test code = TSH) BASIC METABOLIC [id number] 10:48:00 Test Item Value Reference Range Interpretation Comments SODIUM (test code = 137.0 mmol/L 133-144 N NA) POTASSIUM (test 4.1 mmol/L 3.5-5.1 N code = K) CHLORIDE (test code 100 mmol/L 95-105 N = CL) CARBON DIOXIDE 35 mmol/L 21-32 H (test code = CO2) ANION GAP (test 2.0 GAP calc 4.0-15.0 L code = GAP) GLUCOSE (test code 165 MG/DL 70-110 H = GLU) BLOOD UREA NITROGEN 43 MG/DL 7-18 H (test code = BUN) CREATININE (test 0.49 MG/DL 0.55-1.30 L Results may be code = CREAT) depressed if p atient is takingN-Acetylc ystei ne (NAC) and Metamizole (Dipyrone). CALCIUM (test code 9.5 MG/DL 8.5-10.1 N = CA) INDEX HEMOLYSIS 4 SMALL 50-200 See_Comment A [Automate d message] (test code = MG Index/DL The system [employer]by [employer] HEMINDEX) generated this result transmit cipriano reference range : 1 NORMAL. The reference range was not used to interpret this result as normal/abnormal . INDEX ICTERIC (test 1 NORMAL <2 MG See_Comment [Auto mated message] code = ICTINDEX) Index/DL The system which generated this result transmit cipriano reference range : 1 NORMAL. The reference range was not used to interpret this result as normal/abnormal . INDEX LIPEMIA (test 1 NORMAL <50 MG See_Comment [Aut omated message] code = LIPINDEX) Index/DL The system which generated this result transmit cipriano reference range : 1 NORMAL. The reference range was not used to interpret this result as normal/abnormal . UA RFLX MICR CULT IF [id number] 10:46:00 Test Item Value Reference Range Interpretation Comments UA COLOR (test code COLORLESS YELLOW = COLU) DESCRIPT UA APPEARANCE (test CLEAR DESCRIPT CLEAR code = APPU) UA GLUCOSE DIPSTICK NORMAL (0) mg/dL See_Comment [Au tomated (test code = DGLUU) message] The system which generated this result transmit cipriano reference range : 0 (NORMAL). The reference range was not used to interpret this result as normal/abnormal . UA BILIRUBIN NEGATIVE (0.0) See_Comment [Automated DIPSTICK (test code mg/dL message] The = BILU) system which generated this result transmit cipriano reference range : (NEG) 0. The reference range was not used to interpret this result as normal/abnormal . UA KETONE DIPSTICK NEGATIVE (0) See_Comment [Automat ed (test code = KETU) mg/dL message] The system which generated this result transmit cipriano reference range : (NEG) 0. The reference range was not used to interpret this result as normal/abnormal . UA SPECIFIC GRAVITY 1.013 SG 1.001-1.035 (test code = SGU) UA BLOOD DIPSTICK 0.10 (1+) mg/dL See_Comment A [Autom ated (test code = LUKASZ) message] T he system which generated this result transmit cipriano reference range : 0 (NEG). The reference range was not used to interpret this result as normal/abnormal . UA PH DIPSTICK (test 5.5 pH UNITS 4.6-8.0 code = GWEN) UA PROTEIN DIPSTICK NEGATIVE (0) See_Comment [Automa cipriano (test code = PROU) mg/dL message] The system which generated this result transmit cipriano reference range : <30 (1+). The reference range was not used to interpret this result as normal/abnormal . UA UROBILINIOGEN NORMAL (0) mg/Dl See_Comment [Autom ated DIPSTICK (test code message] The = URO) system which generated this result transmit cipriano reference range : <2.0 (1+). The reference range was not used to interpret this result as normal/abnormal . UA NITRITE DIPSTICK NEGATIVE (0) NEG (test code = RUTH ANN) SCREEN UA LEUKOCYTE NEGATIVE (0) See_Comment [Automated ESTERASE DIPSTICK Leuk/mcL message] T [employer] (test code = LEUU) system wh ich generated this result transmit cipriano reference range : (NEG) 0. The reference range was not used to interpret this result as normal/abnormal . UA COMMENT (test SOARES SPEC SpecComment code = COMU) NoteSPEC UA WBC (test code = 0-3 #WBC/HPF 0-3 WBCU) UA RBC (test code = 10-20 #RBC/HPF 0-3 A RBCU) UA BACTERIA (test TRACE >0 /HPF NONE-FEW code = BACU) UA YEAST (BUDDING) RARE >0 /HPF NONE A (test code = YEASTUBD) UA CULTURE NEEDED? Crit NOTmet Cult byWBC (test code = UACULT) CULT-N/A Criteria Indication for culture: RiskForSepsis-no oth [id number] 10:44:00 Test Item Value Reference Range Interpretation Comments AMMONIA (test code = AMM) 17.0 mcMOL/L 11.0-32.0 N - XR CHEST 1 [id number] 07:38:00 [facility] : 1970 Sex: F FAX: Ruthy Boateng MD [phone] [place]: St: [facility] FAX: Anthony Galan MD [phone] Patient Name: MARCELLE MEDINA Unit No: [id number] EXAMS: CPT CODE: [id number] XR CHEST 1 V [id number] EXAM: - XR CHEST 1 V INDICATION: vent Location: T 18. COMPARISON: 08/12/2020 TECHNIQUE: Frontal view of the chest. FINDINGS: Unchanged appearance of endotracheal tube and NG tube. Unchanged bilateral opacities. Cardiomediastinal silhouette and osseous structures appear unremarkable. No pleural effusion appreciated. IMPRESSION: Unchanged bilateral opacities. at 0738 Reported and signed by: Marcelo Henriquez MD CC: Ruthy Boateng MD; Anthony Whittaker MD Dictated Date/Time: 08/13/2020 (0738)Technologist: Toyin Jamil; Cindy Couch Transcribed Date/Time: 08/13/2020 (07) By: [email or web address] Orig Print D/T: S: 08/13/2020 (0741) [facility] [place] NAME: CAROLMAYITOBREANA ALMENDAREZ [facility] PHYS: [id number] - Ruthy Boateng MD [address] [place] [address] : 1970 AGE: 50 SEX: F [place] [address] LOC: Mich.ICU13 W PHONE #: [phone] EXAM DATE: 08/13/2020 STATUS: ADM IN FAX #: [phone] RAD NO: DC Dt: PAGE 1 Signed ReportGLUCOSE BEDSIDE TESTING 2020-08-13 07:33:00 Test Item Value Reference Range Interpretation Comments GLUCOSE BEDSIDE TESTING (test code 100 MG/DL 70-119 N = GLUBED) BASIC METABOLIC [id number] 06:07:00 Test Item Value Reference Range Interpretation Comments SODIUM (test code = 139.0 mmol/L 133-144 N NA) POTASSIUM (test 4.3 mmol/L 3.5-5.1 N code = K) CHLORIDE (test code 103 mmol/L 95-105 N = CL) CARBON DIOXIDE 32 mmol/L 21-32 N (test code = CO2) ANION GAP (test 4.0 GAP calc 4.0-15.0 N code = GAP) GLUCOSE (test code 133 MG/DL 70-110 H = GLU) BLOOD UREA NITROGEN 45 MG/DL 7-18 H (test code = BUN) CREATININE (test 0.42 MG/DL 0.55-1.30 L Results may be code = CREAT) depressed if p atient is takingN-Acetylc ystei ne (NAC) and Metamizole (Dipyrone). CALCIUM (test code 9.3 MG/DL 8.5-10.1 N = CA) INDEX HEMOLYSIS 1 NORMAL <10 MG See_Comment [Automat ed message] (test code = Index/DL The system abby maradiaga HEMINDEX) generated this result transmit cipriano reference range : 1 NORMAL. The reference range was not used to interpret this result as normal/abnormal . INDEX ICTERIC (test 1 NORMAL <2 MG See_Comment [Auto mated message] code = ICTINDEX) Index/DL The system which generated this result transmit cipriano reference range : 1 NORMAL. The reference range was not used to interpret this result as normal/abnormal . INDEX LIPEMIA (test 1 NORMAL <50 MG See_Comment [Aut omated message] code = LIPINDEX) Index/DL The system which generated this result transmit cipriano reference range : 1 NORMAL. The reference range was not used to interpret this result as normal/abnormal . BASIC METABOLIC [id number] 06:06:00 Test Item Value Reference Range Interpretation Comments SODIUM (test code = 139.0 mmol/L 133-144 N NA) POTASSIUM (test 4.3 mmol/L 3.5-5.1 N code = K) CHLORIDE (test code 103 mmol/L 95-105 N = CL) CARBON DIOXIDE 32 mmol/L 21-32 N (test code = CO2) ANION GAP (test 4.0 GAP calc 4.0-15.0 N code = GAP) GLUCOSE (test code 133 MG/DL 70-110 H = GLU) BLOOD UREA NITROGEN 45 MG/DL 7-18 H (test code = BUN) CREATININE (test MG/DL 0.55-1.30 code = CREAT) CALCIUM (test code 9.3 MG/DL 8.5-10.1 N = CA) INDEX HEMOLYSIS 1 NORMAL <10 MG See_Comment [Automat ed message] (test code = Index/DL The system [employer]) generated this result transmit cipriano reference range : 1 NORMAL. The reference range was not used to interpret this result as normal/abnormal . INDEX ICTERIC (test 1 NORMAL <2 MG See_Comment [Auto mated message] code = ICTINDEX) Index/DL The system which generated this result transmit cipriano reference range : 1 NORMAL. The reference range was not used to interpret this result as normal/abnormal . INDEX LIPEMIA (test 1 NORMAL <50 MG See_Comment [Aut omated message] code = LIPINDEX) Index/DL The system which generated this result transmit cipriano reference range : 1 NORMAL. The reference range was not used to interpret this result as normal/abnormal . CBC W/AUTO [id number] 05:48:00 Test Item Value Reference Range Interpretation Comments WHITE BLOOD CELL (test code = 19.8 K/mm3 4.1-12.1 H WBC) RED BLOOD CELL (test code = RBC) 4.54 M/mm3 3.8-5.5 N HEMOGLOBIN (test code = HGB) 11.6 G/DL 10.6-15.8 N HEMATOCRIT (test code = HCT) 39.3 % 31.8-47.4 N MEAN CELL VOLUME (test code = 86.6 fL 80.1-101.1 N MCV) MEAN CELL HGB (test code = MCH) 25.6 pg 25.3-35.3 N MEAN CELL HGB CONCETRATION (test 29.5 G/DL 32.7-35.1 L code = MCHC) RED CELL DISTRIBUTION WIDTH 17.3 % 12.2-16.4 H (test code = RDW) RED CELL DISTRIBUTION WIDTH 53.8 fL 36.4-46.3 H (test code = RDW-SD) PLATELET COUNT (test code = PLT) 244 K/mm3 155-337 N MEAN PLATELET VOLUME (test code 12.6 fL 6.8-11.2 H = MPV) GRANULOCYTE % (test code = GR%) 87.9 % 37.8-82.6 H IMMATURE GRANULOCYTE % (test 1.6 % 0.0-2.0 N code = IG%) LYMPHOCYTE % (test code = LY%) 4.7 % 14.1-45.4 L MONOCYTE % (test code = MO%) 5.5 % 2.5-11.7 N EOSINOPHIL % (test code = EO%) 0.1 % 0.0-6.2 N BASOPHIL % (test code = BA%) 0.2 % 0.0-2.1 N NUCLEATED RBC % (test code = 0.0 /100WBC% 0.0-1.0 N NRBC%) GRANULOCYTE # (test code = GR#) 17.46 k/mm3 2.0-13.7 H IMMATURE GRANULOCYTE # (test 0.31 K/mm3 0.00-0.03 H code = IG#) LYMPHOCYTE # (test code = LY#) 0.93 K/mm3 0.6-3.8 N MONOCYTE # (test code = MO#) 1.09 K/mm3 0.11-0.59 H EOSINOPHIL # (test code = EO#) 0.01 K/mm3 0.0-0.4 N BASOPHIL # (test code = BA#) 0.04 K/mm3 0.0-0.1 N NUCLEATED RBC # (test code = 0.00 K/mm3 0.0-0.05 N NRBC#) GLUCOSE BEDSIDE [id number] 05:20:00 Test Item Value Reference Range Interpretation Comments GLUCOSE BEDSIDE TESTING (test code 124 MG/DL 70-119 H = GLUBED) ARTERIAL BLOOD [id number] 04:10:00 Test Item Value Reference Range Interpretation Comments ARTERIAL BLOOD GAS PH (test 7.50 pH units 7.35-7.45 H code = PHA) ARTERIAL BLOOD GAS PCO2 47 mmHg 35-45 H (test code = PCO2A) ARTERIAL BLOOD GAS PO2 67 mmHg 80-100 L (test code = PO2A) BICARBONATE TOTAL HCO3 36.6 mmol/L 22.0-26.0 H (test code = HCO3) BASE EXCESS (test code = 13.5 mmol/L -3.0-3.0 H OLGA) FIO2 (test code = FIO2A) 60 % (calc) 21-100 N MODALITY (test code = MOD) CMV COMMENT DESCRIPTION PaO2/FiO2 (test code = 111.66 mm/Hg [id number]) ABG PATIENT RESP RATE (test 22 /MIN PT RespRate code = RRPATA) ABG TIDAL VOLUME (test code 500 ML = TVA) ABG PEEP (test code = 12 cm H20 0.0-99.9 PEEPA) ABG SITE (test code = RT RADIAL ARTKIT DESCRIPTION SITEA) MODIFIED DAINA'S (test code POSITIVE Circ.CHK POSITIVE = MODALL) O2 SATURATION (test code = 94 % (calc) 95-100 L O2S/C) GLUCOSE BEDSIDE [id number] 23:47:00 Test Item Value Reference Range Interpretation Comments GLUCOSE BEDSIDE TESTING (test code 116 MG/DL 70-119 N = GLUBED) GLUCOSE BEDSIDE [id number] 16:55:00 Test Item Value Reference Range Interpretation Comments GLUCOSE BEDSIDE TESTING (test code 133 MG/DL 70-119 H = GLUBED) GLUCOSE BEDSIDE [id number] 13:04:00 Test Item Value Reference Range Interpretation Comments GLUCOSE BEDSIDE TESTING (test code 122 MG/DL 70-119 H = GLUBED) - XR CHEST 1 [id number] 11:39:00 [facility] : 1970 Sex: F FAX: Ruthy Boateng MD [phone] [place]: St: [facility] FAX: Anthony Galan MD [phone] Patient Name: MARCELLE MEDINA Unit No: [id number] EXAMS: CPT CODE: [id number] XR CHEST 1 V [id number] CHEST 1 VIEW: INDICATION: ET tube adjustment COMPARISON: Comparison is made with previous study of 08/10/2020 at 0458 hours Location: T18 A single portable AP view of the chest demonstrates the tip of the endotracheal tube 3 cm above the geovanny. A nasogastric tube extends to the stomach. The heart is mildly enlarged. Hazy bilateral lower lung opacities are unchanged. Small pleural effusions are likely. No apparent pneumothorax. Chronic osseous changes are visible. IMPRESSION: 1. Mild CHF, unchanged. 2. The tip of the endotracheal tube is seen 3 cm above the geovanny. at 1139 Reported and signed by: Jacky Go MD CC: Ruthy Boateng MD; Anthony Whittaker MD Dictated Date/Time: 08/12/2020 (1139)Technologist: Sandra Jimenez Transcribed Date/Time: 08/12/2020 (1139) By: [email or web address] Orig Print D/T: S: 08/12/2020 (8730) [facility] [place] NAME: MARCELLE MEDINA MEDICAL IMAG[facility] PHYS: [id number] - Ruthy Boateng MD [address] [place] [address] BLVD : 1970 AGE: 50 SEX: F [place], [place] [address] LOC: B.ICU13 W PHONE #: [phone] DATE: 08/12/2020 STATUS: ADM IN FAX #: [phone] RAD NO: DC Dt: PAGE 1 Signed [id number] 09:51:00 Test Item Value Reference Range Interpretation Comments MAGNESIUM (test code = MAG) 2.2 MG/DL 1.6-2.6 N BASIC METABOLIC [id number] 06:26:00 Test Item Value Reference Range Interpretation Comments SODIUM (test code = 138.0 mmol/L 133-144 N NA) POTASSIUM (test 3.6 mmol/L 3.5-5.1 N code = K) CHLORIDE (test code 100 mmol/L 95-105 N = CL) CARBON DIOXIDE 33 mmol/L 21-32 H (test code = CO2) ANION GAP (test 5.0 GAP calc 4.0-15.0 N code = GAP) GLUCOSE (test code 153 MG/DL 70-110 H = GLU) BLOOD UREA NITROGEN 37 MG/DL 7-18 H (test code = BUN) CREATININE (test 0.50 MG/DL 0.55-1.30 L Results may be code = CREAT) depressed if p atient is takingN-Acetylc ystei ne (NAC) and Metamizole (Dipyrone). CALCIUM (test code 8.8 MG/DL 8.5-10.1 N = CA) INDEX HEMOLYSIS 1 NORMAL <10 MG See_Comment [Automat ed message] (test code = Index/DL The system [employer] HEMINDEX) generated this result transmit cipriano reference range : 1 NORMAL. The reference range was not used to interpret this result as normal/abnormal . INDEX ICTERIC (test 1 NORMAL <2 MG See_Comment [Auto mated message] code = ICTINDEX) Index/DL The system which generated this result transmit cipriano reference range : 1 NORMAL. The reference range was not used to interpret this result as normal/abnormal . INDEX LIPEMIA (test 1 NORMAL <50 MG See_Comment [Aut omated message] code = LIPINDEX) Index/DL The system which generated this result transmit cipriano reference range : 1 NORMAL. The reference range was not used to interpret this result as normal/abnormal . HEPATIC FUNCTION [id number] 06:26:00 Test Item Value Reference Range Interpretation Comments TOTAL PROTEIN (test code = PROT) 6.4 G/DL 6.4-8.2 N ALBUMIN (test code = ALB) 2.9 G/DL 3.4-5.0 L BILIRUBIN TOTAL (test code = BILT) 0.39 MG/DL 0.00-1.00 N BILIRUBIN DIRECT (test code = 0.19 MG/DL 0.00-0.30 N BILD) BILIRUBIN INDIRECT (test code = 0.20 MG/DL 0.2-1.3 N BILIND) SGOT/AST (test code = AST) 30 Unit/L 15-37 N SGPT/ALT (test code = ALT) 185 Unit/L 12-78 H ALKALINE PHOSPHATASE TOTAL (test 82 Unit/L 45-117 N code = ALKP) CREATININE W ESTIMATED [id number] 06:26:00 Test Item Value Reference Range Interpretation Comments ESTIMATED 370.63 est 85.0-125.0 H The estimated c reatinine CREATININE CRCL clearance is co mputed CLEARANCE (test using patien tweight, age, code = sex, and serum CREATCLEST) creatinine. Est imated creatinineclear ance units = ml/min. If a ny of the needed dataelem ents are missing the Lab oratory can not compute anestimation of the creatinine morgan elenita.--- DRUG DOSAGE JOSIE RT --- Drug dosage adj ustments utilize differe nt calculationpara meters. GLOMERULAR 131 estGFR >60 The estimated g lomerular FILTRATION RATE filtration r ate is (test code = GFR) computed u singpatient race, age, sex, and serum creatinine. If any of theneeded data elements are missing the Laboratory can notcompute an estimation o f the glomerular filt ration rate.The GFR va lue units = ml/min/1.73 m eter squared. Estim atedGFR values above 60 should be interpreted as >60, not anexact number. --- DRUG DOSAGE ALERT -- - Drug dosage adjustme nts utilize differe nt calculationpara meters. BASIC METABOLIC [id number] 06:23:00 Test Item Value Reference Range Interpretation Comments SODIUM (test code = 138.0 mmol/L 133-144 N NA) POTASSIUM (test 3.6 mmol/L 3.5-5.1 N code = K) CHLORIDE (test code 100 mmol/L 95-105 N = CL) CARBON DIOXIDE 33 mmol/L 21-32 H (test code = CO2) ANION GAP (test 5.0 GAP calc 4.0-15.0 N code = GAP) GLUCOSE (test code 153 MG/DL 70-110 H = GLU) BLOOD UREA NITROGEN 37 MG/DL 7-18 H (test code = BUN) CREATININE (test 0.50 MG/DL 0.55-1.30 L Results may be code = CREAT) depressed if p atient is takingN-Acetylc ystei ne (NAC) and Metamizole (Dipyrone). CALCIUM (test code 8.8 MG/DL 8.5-10.1 N = CA) INDEX HEMOLYSIS 1 NORMAL <10 MG See_Comment [Automat ed message] (test code = Index/DL The system [employer] [email or web address]) generated this result transmit cipriano reference range : 1 NORMAL. The reference range was not used to interpret this result as normal/abnormal . INDEX ICTERIC (test 1 NORMAL <2 MG See_Comment [Auto mated message] code = ICTINDEX) Index/DL The system which generated this result transmit cipriano reference range : 1 NORMAL. The reference range was not used to interpret this result as normal/abnormal . INDEX LIPEMIA (test 1 NORMAL <50 MG See_Comment [Aut omated message] code = LIPINDEX) Index/DL The system which generated this result transmit cipriano reference range : 1 NORMAL. The reference range was not used to interpret this result as normal/abnormal . HEPATIC FUNCTION [id number] 06:23:00 Test Item Value Reference Range Interpretation Comments TOTAL PROTEIN (test code = PROT) G/DL 6.4-8.2 ALBUMIN (test code = ALB) 2.9 G/DL 3.4-5.0 L BILIRUBIN TOTAL (test code = BILT) MG/DL 0.00-1.00 BILIRUBIN DIRECT (test code = 0.19 MG/DL 0.00-0.30 N BILD) BILIRUBIN INDIRECT (test code = MG/DL 0.2-1.3 BILIND) SGOT/AST (test code = AST) 30 Unit/L 15-37 N SGPT/ALT (test code = ALT) 185 Unit/L 12-78 H ALKALINE PHOSPHATASE TOTAL (test Unit/L 45-117 code = ALKP) CREATININE W ESTIMATED [id number] 06:23:00 Test Item Value Reference Range Interpretation Comments ESTIMATED 370.63 est 85.0-125.0 H The estimated c reatinine CREATININE CRCL clearance is co mputed CLEARANCE (test using patien tweight, age, code = sex, and serum CREATCLEST) creatinine. Est imated creatinineclear ance units = ml/min. If a ny of the needed dataelem ents are missing the Lab oratory can not compute anestimation of the creatinine morgan elenita.--- DRUG DOSAGE JOSIE RT --- Drug dosage adj ustments utilize differe nt calculationpara meters. GLOMERULAR 131 estGFR >60 The estimated g lomerular FILTRATION RATE filtration r ate is (test code = GFR) computed u singpatient race, age, sex, and serum creatinine. If any of theneeded data elements are missing the Laboratory can notcompute an estimation o f the glomerular filt ration rate.The GFR va lue units = ml/min/1.73 m eter squared. Estim atedGFR values above 60 should be interpreted as >60, not anexact number. --- DRUG DOSAGE ALERT -- - Drug dosage adjustme nts utilize differe nt calculationpara meters. CBC W/AUTO [id number] 06:14:00 Test Item Value Reference Range Interpretation Comments WHITE BLOOD CELL (test code = 16.8 K/mm3 4.1-12.1 H WBC) RED BLOOD CELL (test code = RBC) 4.61 M/mm3 3.8-5.5 N HEMOGLOBIN (test code = HGB) 11.7 G/DL 10.6-15.8 N HEMATOCRIT (test code = HCT) 39.5 % 31.8-47.4 N MEAN CELL VOLUME (test code = 85.7 fL 80.1-101.1 N MCV) MEAN CELL HGB (test code = MCH) 25.4 pg 25.3-35.3 N MEAN CELL HGB CONCETRATION (test 29.6 G/DL 32.7-35.1 L code = MCHC) RED CELL DISTRIBUTION WIDTH 16.6 % 12.2-16.4 H (test code = RDW) RED CELL DISTRIBUTION WIDTH 51.6 fL 36.4-46.3 H (test code = RDW-SD) PLATELET COUNT (test code = PLT) 206 K/mm3 155-337 N MEAN PLATELET VOLUME (test code 12.6 fL 6.8-11.2 H = MPV) GRANULOCYTE % (test code = GR%) 90.7 % 37.8-82.6 H IMMATURE GRANULOCYTE % (test 1.0 % 0.0-2.0 N code = IG%) LYMPHOCYTE % (test code = LY%) 4.1 % 14.1-45.4 L MONOCYTE % (test code = MO%) 4.1 % 2.5-11.7 N EOSINOPHIL % (test code = EO%) 0.0 % 0.0-6.2 N BASOPHIL % (test code = BA%) 0.1 % 0.0-2.1 N NUCLEATED RBC % (test code = 0.0 /100WBC% 0.0-1.0 N NRBC%) GRANULOCYTE # (test code = GR#) 15.20 k/mm3 2.0-13.7 H IMMATURE GRANULOCYTE # (test 0.16 K/mm3 0.00-0.03 H code = IG#) LYMPHOCYTE # (test code = LY#) 0.69 K/mm3 0.6-3.8 N MONOCYTE # (test code = MO#) 0.68 K/mm3 0.11-0.59 H EOSINOPHIL # (test code = EO#) 0.00 K/mm3 0.0-0.4 N BASOPHIL # (test code = BA#) 0.02 K/mm3 0.0-0.1 N NUCLEATED RBC # (test code = 0.00 K/mm3 0.0-0.05 N NRBC#) ARTERIAL BLOOD [id number] 05:01:00 Test Item Value Reference Range Interpretation Comments ARTERIAL BLOOD GAS PH (test 7.45 pH units 7.35-7.45 N code = PHA) ARTERIAL BLOOD GAS PCO2 52 mmHg 35-45 H (test code = PCO2A) ARTERIAL BLOOD GAS PO2 90 mmHg 80-100 N (test code = PO2A) BICARBONATE TOTAL HCO3 35.8 mmol/L 22.0-26.0 H (test code = HCO3) BASE EXCESS (test code = 11.8 mmol/L -3.0-3.0 H OLGA) FIO2 (test code = FIO2A) 100 % (calc) 21-100 N MODALITY (test code = MOD) AC COMMENT DESCRIPTION PaO2/FiO2 (test code = 90.00 mm/Hg [id number]) ABG PATIENT RESP RATE (test 22 /MIN PT RespRate code = RRPATA) ABG TIDAL VOLUME (test code 500 ML = TVA) ABG PEEP (test code = 10 cm H20 0.0-99.9 PEEPA) ABG SITE (test code = RT RADIAL ARTKIT DESCRIPTION SITEA) MODIFIED DAINA'S (test code POSITIVE Circ.CHK POSITIVE = MODALL) O2 SATURATION (test code = 97 % (calc) 95-100 N O2S/C) GLUCOSE BEDSIDE [id number] 20:44:00 Test Item Value Reference Range Interpretation Comments GLUCOSE BEDSIDE TESTING (test code 119 MG/DL 70-119 N = GLUBED) GLUCOSE BEDSIDE [id number] 16:47:00 Test Item Value Reference Range Interpretation Comments GLUCOSE BEDSIDE TESTING (test code 157 MG/DL 70-119 H = GLUBED) Covid 19 InHouse [id number] 11:40:00 Test Item Value Reference Range Interpretation Comments Covid 19 Negative Negative A negative resu lt does not InHouse NTX preclude the SA RS-COV-2 (test code = viralinfection and should not be [id number]) used as the so le basis forpatient terri gement decisions. Negative result s must becombined with clinical o bservations, patient history , andepidemiologi brooke information. Viral levels in clinicalsamples below the detec tion limit of the assay could daria d tonegative results. This t est was performed using the LogXray Imatek SmartTM COVID-19 PCRassay. This test was developed and i ts performancechar acteristics were determined by [facility]. Thi s test has notbeen FDA alejandro ared or approved. This test is au thorized by theFDA under Em ergency Use Authorization(E UA). The EUA willremain in e ffect unless it is terminated o r revoked by FDA . Testing staci eters have not been validated for screeningasympt omatic patients. This test was v alidated according to th e FDA's guidancedocumen t "Policy for Diagnostics marlon ting in LaboratoriesCer tified to Perform High Complexity Testing under CLIA". First test? NoEmployed in Healthcare? NoSymptomatic as defined by CDC? YesDate of Symptom Onset: [id number] due to COVID? NoIn ICU due to COVID? NoResident in a congregate care setting? No? NoAge at collection: Y GLUCOSE BEDSIDE [id number] 11:38:00 Test Item Value Reference Range Interpretation Comments GLUCOSE BEDSIDE TESTING (test code 180 MG/DL 70-119 H = GLUBED) BASIC METABOLIC [id number] 05:33:00 Test Item Value Reference Range Interpretation Comments SODIUM (test code = 137.0 mmol/L 133-144 N NA) POTASSIUM (test 3.6 mmol/L 3.5-5.1 N code = K) CHLORIDE (test code 99 mmol/L 95-105 N = CL) CARBON DIOXIDE 32 mmol/L 21-32 N (test code = CO2) ANION GAP (test 6.0 GAP calc 4.0-15.0 N code = GAP) GLUCOSE (test code 162 MG/DL 70-110 H = GLU) BLOOD UREA NITROGEN 33 MG/DL 7-18 H (test code = BUN) CREATININE (test 0.51 MG/DL 0.55-1.30 L Results may be code = CREAT) depressed if p atient is takingN-Acetylc ystei ne (NAC) and Metamizole (Dipyrone). CALCIUM (test code 8.7 MG/DL 8.5-10.1 N = CA) INDEX HEMOLYSIS 1 NORMAL <10 MG See_Comment [Automat ed message] (test code = Index/DL The system [employer] HEMINDEX) generated this result transmit cipriano reference range : 1 NORMAL. The reference range was not used to interpret this result as normal/abnormal . INDEX ICTERIC (test 1 NORMAL <2 MG See_Comment [Auto mated message] code = ICTINDEX) Index/DL The system which generated this result transmit cipriano reference range : 1 NORMAL. The reference range was not used to interpret this result as normal/abnormal . INDEX LIPEMIA (test 1 NORMAL <50 MG See_Comment [Aut omated message] code = LIPINDEX) Index/DL The system which generated this result transmit cipriano reference range : 1 NORMAL. The reference range was not used to interpret this result as normal/abnormal . HEPATIC FUNCTION [id number] 05:33:00 Test Item Value Reference Range Interpretation Comments TOTAL PROTEIN (test code = PROT) 6.5 G/DL 6.4-8.2 N ALBUMIN (test code = ALB) 3.0 G/DL 3.4-5.0 L BILIRUBIN TOTAL (test code = BILT) 0.53 MG/DL 0.00-1.00 N BILIRUBIN DIRECT (test code = 0.19 MG/DL 0.00-0.30 N BILD) BILIRUBIN INDIRECT (test code = 0.34 MG/DL 0.2-1.3 N BILIND) SGOT/AST (test code = AST) 31 Unit/L 15-37 N SGPT/ALT (test code = ALT) 236 Unit/L 12-78 H ALKALINE PHOSPHATASE TOTAL (test 95 Unit/L 45-117 N code = ALKP) CREATININE W ESTIMATED [id number] 05:33:00 Test Item Value Reference Range Interpretation Comments ESTIMATED 363.36 est 85.0-125.0 H The estimated c reatinine CREATININE CRCL clearance is co mputed CLEARANCE (test using patien tweight, age, code = sex, and serum CREATCLEST) creatinine. Est imated creatinineclear ance units = ml/min. If a ny of the needed dataelem ents are missing the Lab oratory can not compute anestimation of the creatinine morgan elenita.--- DRUG DOSAGE JOSIE RT --- Drug dosage adj ustments utilize differe nt calculationpara meters. GLOMERULAR 128 estGFR >60 The estimated g lomerular FILTRATION RATE filtration r ate is (test code = GFR) computed u singpatient race, age, sex, and serum creatinine. If any of theneeded data elements are missing the Laboratory can notcompute an estimation o f the glomerular filt ration rate.The GFR va lue units = ml/min/1.73 m eter squared. Estim atedGFR values above 60 should be interpreted as >60, not anexact number. --- DRUG DOSAGE ALERT -- - Drug dosage adjustme nts utilize differe nt calculationpara meters. BASIC METABOLIC [id number] 05:28:00 Test Item Value Reference Range Interpretation Comments SODIUM (test code = 137.0 mmol/L 133-144 N NA) POTASSIUM (test 3.6 mmol/L 3.5-5.1 N code = K) CHLORIDE (test code 99 mmol/L 95-105 N = CL) CARBON DIOXIDE 32 mmol/L 21-32 N (test code = CO2) ANION GAP (test 6.0 GAP calc 4.0-15.0 N code = GAP) GLUCOSE (test code 162 MG/DL 70-110 H = GLU) BLOOD UREA NITROGEN 33 MG/DL 7-18 H (test code = BUN) CREATININE (test MG/DL 0.55-1.30 code = CREAT) CALCIUM (test code 8.7 MG/DL 8.5-10.1 N = CA) INDEX HEMOLYSIS 1 NORMAL <10 MG See_Comment [Automat ed message] (test code = Index/DL The system [employer] [email or web address]) generated this result transmit cipriano reference range : 1 NORMAL. The reference range was not used to interpret this result as normal/abnormal . INDEX ICTERIC (test 1 NORMAL <2 MG See_Comment [Auto mated message] code = ICTINDEX) Index/DL The system which generated this result transmit cipriano reference range : 1 NORMAL. The reference range was not used to interpret this result as normal/abnormal . INDEX LIPEMIA (test 1 NORMAL <50 MG See_Comment [Aut omated message] code = LIPINDEX) Index/DL The system which generated this result transmit cipriano reference range : 1 NORMAL. The reference range was not used to interpret this result as normal/abnormal . HEPATIC FUNCTION [id number] 05:28:00 Test Item Value Reference Range Interpretation Comments TOTAL PROTEIN (test code = PROT) G/DL 6.4-8.2 ALBUMIN (test code = ALB) 3.0 G/DL 3.4-5.0 L BILIRUBIN TOTAL (test code = BILT) MG/DL 0.00-1.00 BILIRUBIN DIRECT (test code = 0.19 MG/DL 0.00-0.30 N BILD) BILIRUBIN INDIRECT (test code = MG/DL 0.2-1.3 BILIND) SGOT/AST (test code = AST) Unit/L 15-37 SGPT/ALT (test code = ALT) 236 Unit/L 12-78 H ALKALINE PHOSPHATASE TOTAL (test Unit/L 45-117 code = ALKP) CREATININE W ESTIMATED [id number] 05:28:00 Test Item Value Reference Range Interpretation Comments ESTIMATED CREATININE CLEARANCE est CRCL 85.0-125.0 (test code = CREATCLEST) CBC W/AUTO [id number] 05:14:00 Test Item Value Reference Range Interpretation Comments WHITE BLOOD CELL (test code = 13.2 K/mm3 4.1-12.1 H WBC) RED BLOOD CELL (test code = RBC) 4.88 M/mm3 3.8-5.5 N HEMOGLOBIN (test code = HGB) 12.2 G/DL 10.6-15.8 N HEMATOCRIT (test code = HCT) 41.5 % 31.8-47.4 N MEAN CELL VOLUME (test code = 85.0 fL 80.1-101.1 N MCV) MEAN CELL HGB (test code = MCH) 25.0 pg 25.3-35.3 L MEAN CELL HGB CONCETRATION (test 29.4 G/DL 32.7-35.1 L code = MCHC) RED CELL DISTRIBUTION WIDTH 16.2 % 12.2-16.4 N (test code = RDW) RED CELL DISTRIBUTION WIDTH 50.3 fL 36.4-46.3 H (test code = RDW-SD) PLATELET COUNT (test code = PLT) 170 K/mm3 155-337 N MEAN PLATELET VOLUME (test code 12.1 fL 6.8-11.2 H = MPV) GRANULOCYTE % (test code = GR%) 92.9 % 37.8-82.6 H IMMATURE GRANULOCYTE % (test 0.7 % 0.0-2.0 N code = IG%) LYMPHOCYTE % (test code = LY%) 3.9 % 14.1-45.4 L MONOCYTE % (test code = MO%) 2.4 % 2.5-11.7 L EOSINOPHIL % (test code = EO%) 0.0 % 0.0-6.2 N BASOPHIL % (test code = BA%) 0.1 % 0.0-2.1 N NUCLEATED RBC % (test code = 0.0 /100WBC% 0.0-1.0 N NRBC%) GRANULOCYTE # (test code = GR#) 12.25 k/mm3 2.0-13.7 N IMMATURE GRANULOCYTE # (test 0.09 K/mm3 0.00-0.03 H code = IG#) LYMPHOCYTE # (test code = LY#) 0.51 K/mm3 0.6-3.8 L MONOCYTE # (test code = MO#) 0.32 K/mm3 0.11-0.59 N EOSINOPHIL # (test code = EO#) 0.00 K/mm3 0.0-0.4 N BASOPHIL # (test code = BA#) 0.01 K/mm3 0.0-0.1 N NUCLEATED RBC # (test code = 0.00 K/mm3 0.0-0.05 N NRBC#) GLUCOSE BEDSIDE [id number] 04:48:00 Test Item Value Reference Range Interpretation Comments GLUCOSE BEDSIDE TESTING (test code 156 MG/DL 70-119 H = GLUBED) ARTERIAL BLOOD [id number] 04:18:00 Test Item Value Reference Range Interpretation Comments ARTERIAL BLOOD GAS PH (test 7.51 pH units 7.35-7.45 H code = PHA) ARTERIAL BLOOD GAS PCO2 40 mmHg 35-45 N (test code = PCO2A) ARTERIAL BLOOD GAS PO2 83 mmHg 80-100 N (test code = PO2A) BICARBONATE TOTAL HCO3 32.0 mmol/L 22.0-26.0 H (test code = HCO3) BASE EXCESS (test code = 9.1 mmol/L -3.0-3.0 H OLGA) FIO2 (test code = FIO2A) 100 % (calc) 21-100 N MODALITY (test code = MOD) CMV COMMENT DESCRIPTION PaO2/FiO2 (test code = 83.00 mm/Hg [id number]) ABG PATIENT RESP RATE (test 22 /MIN PT RespRate code = RRPATA) ABG TIDAL VOLUME (test code 500 ML = TVA) ABG PEEP (test code = 10.0 cm H20 0.0-99.9 PEEPA) ABG SITE (test code = RT RADIAL ARTKIT DESCRIPTION SITEA) MODIFIED DAINA'S (test code POSITIVE Circ.CHK POSITIVE = MODALL) O2 SATURATION (test code = 97 % (calc) 95-100 N O2S/C) GLUCOSE BEDSIDE [id number] 00:29:00 Test Item Value Reference Range Interpretation Comments GLUCOSE BEDSIDE TESTING (test code 111 MG/DL 70-119 N = GLUBED) GLUCOSE BEDSIDE [id number] 17:38:00 Test Item Value Reference Range Interpretation Comments GLUCOSE BEDSIDE TESTING (test code 143 MG/DL 70-119 H = GLUBED) BASIC METABOLIC [id number] 17:21:00 Test Item Value Reference Range Interpretation Comments SODIUM (test code = 137.0 mmol/L 133-144 N NA) POTASSIUM (test 3.8 mmol/L 3.5-5.1 N code = K) CHLORIDE (test code 99 mmol/L 95-105 N = CL) CARBON DIOXIDE 34 mmol/L 21-32 H (test code = CO2) ANION GAP (test 4.0 GAP calc 4.0-15.0 N code = GAP) GLUCOSE (test code 155 MG/DL 70-110 H = GLU) BLOOD UREA NITROGEN 31 MG/DL 7-18 H (test code = BUN) CREATININE (test 0.60 MG/DL 0.55-1.30 N Results may be code = CREAT) depressed if p atient is takingN-Acetylc ystei ne (NAC) and Metamizole (Dipyrone). CALCIUM (test code 8.7 MG/DL 8.5-10.1 N = CA) INDEX HEMOLYSIS 1 NORMAL <10 MG See_Comment [Automat ed message] (test code = Index/DL The system [employer]) generated this result transmit cipriano reference range : 1 NORMAL. The reference range was not used to interpret this result as normal/abnormal . INDEX ICTERIC (test 1 NORMAL <2 MG See_Comment [Auto mated message] code = ICTINDEX) Index/DL The system which generated this result transmit cipriano reference range : 1 NORMAL. The reference range was not used to interpret this result as normal/abnormal . INDEX LIPEMIA (test 1 NORMAL <50 MG See_Comment [Aut omated message] code = LIPINDEX) Index/DL The system which generated this result transmit cipriano reference range : 1 NORMAL. The reference range was not used to interpret this result as normal/abnormal . GLUCOSE BEDSIDE [id number] 13:19:00 Test Item Value Reference Range Interpretation Comments GLUCOSE BEDSIDE TESTING (test code 125 MG/DL 70-119 H = GLUBED) ARTERIAL BLOOD [id number] 12:31:00 Test Item Value Reference Range Interpretation Comments ARTERIAL BLOOD GAS PH 7.41 pH units 7.35-7.45 N (test code = PHA) ARTERIAL BLOOD GAS PCO2 54 mmHg 35-45 H (test code = PCO2A) ARTERIAL BLOOD GAS PO2 65 mmHg 80-100 L (test code = PO2A) BICARBONATE TOTAL HCO3 33.8 mmol/L 22.0-26.0 H (test code = HCO3) BASE EXCESS (test code = 9.1 mmol/L -3.0-3.0 H OLGA) FIO2 (test code = FIO2A) 100 % (calc) 21-100 N MODALITY (test code = MOD) CMV COMMENT DESCRIPTION PaO2/FiO2 (test code = 65.00 mm/Hg [id number]) ABG PATIENT RESP RATE 20 /MIN PT RespRate (test code = RRPATA) ABG TIDAL VOLUME (test 500 ML code = TVA) ABG PEEP (test code = 10.0 cm H20 0.0-99.9 PEEPA) ABG SITE (test code = LEFT RADIAL ARTKIT DESCRIPTION SITEA) MODIFIED DAINA'S (test POSITIVE Circ.CHK POSITIVE code = MODALL) O2 SATURATION (test code = 91 % (calc) 95-100 L O2S/C) - XR CHEST 1 [id number] 08:11:00 [facility] : 1970 Sex: F FAX: Ruthy Boateng MD [phone] [place]: C St: ADM FAX: Anthony Galan MD [phone] Patient Name: MARCELLE MEDINA Unit No: [id number] EXAMS: CPT CODE: [id number] XR CHEST 1 V 59522 STUDY: Chest radiograph HISTORY: Covid COMPARISON: 08/09/2020 TECHNIQUE: Frontal view of the chest. SITE: R16 FINDINGS: There is an endotracheal tube 8.6 cm proximal to the geovanny. An enteric tube is redemonstrated. The cardiac silhouette is stable in size. Bibasilar opacities appear not significant changed. The costophrenic angles are again noted to be blunted. There is no discernible pneumothorax. IMPRESSION: No significant intervalchange. at 0811 Reported and signed by: Jerrell Whitman MD CC: Ruthy Boateng MD; Anthony Whittaker MD Dictated Date/Time: 08/10/2020 (810)Technologist: Fanny Hoang Transcribed Date/Time: 08/10/2020 (810) By: [email or web address] Orig Print D/T: S: 08/10/2020 (0815) [facility] NAME: BRISEIDA MEDINA [facility] PHYS: [id number] - Ruthy Boateng MD [address] [place] [address] : 1970 AGE: 50 SEX: F [place], [place] [address] LOC: [id number] W PHONE #: [phone] EXAM DATE: 08/10/2020 STATUS: ADM IN FAX #: [phone] RAD NO: DC Dt: PAGE 1 Signed ReportBASIC METABOLIC PANEL 2020-08-10 06:33:00 Test Item Value Reference Range Interpretation Comments SODIUM (test code = 137.0 mmol/L 133-144 N NA) POTASSIUM (test 3.5 mmol/L 3.5-5.1 N code = K) CHLORIDE (test code 103 mmol/L 95-105 N = CL) CARBON DIOXIDE 30 mmol/L 21-32 N (test code = CO2) ANION GAP (test 4.0 GAP calc 4.0-15.0 N code = GAP) GLUCOSE (test code 104 MG/DL 70-110 N = GLU) BLOOD UREA NITROGEN 29 MG/DL 7-18 H (test code = BUN) CREATININE (test 0.47 MG/DL 0.55-1.30 L Results may be code = CREAT) depressed if p atient is takingN-Acetylc ystei ne (NAC) and Metamizole (Dipyrone). CALCIUM (test code 8.8 MG/DL 8.5-10.1 N = CA) INDEX HEMOLYSIS 4 SMALL 50-200 See_Comment A [Automate d message] (test code = MG Index/DL The system [employer]) generated this result transmit cipriano reference range : 1 NORMAL. The reference range was not used to interpret this result as normal/abnormal . INDEX ICTERIC (test 1 NORMAL <2 MG See_Comment [Auto mated message] code = ICTINDEX) Index/DL The system which generated this result transmit cipriano reference range : 1 NORMAL. The reference range was not used to interpret this result as normal/abnormal . INDEX LIPEMIA (test 1 NORMAL <50 MG See_Comment [Aut omated message] code = LIPINDEX) Index/DL The system which generated this result transmit cipriano reference range : 1 NORMAL. The reference range was not used to interpret this result as normal/abnormal . HEPATIC FUNCTION [id number] 06:33:00 Test Item Value Reference Range Interpretation Comments TOTAL PROTEIN (test code = PROT) 6.1 G/DL 6.4-8.2 L ALBUMIN (test code = ALB) 2.8 G/DL 3.4-5.0 L BILIRUBIN TOTAL (test code = BILT) 0.47 MG/DL 0.00-1.00 N BILIRUBIN DIRECT (test code = 0.14 MG/DL 0.00-0.30 N BILD) BILIRUBIN INDIRECT (test code = 0.33 MG/DL 0.2-1.3 N BILIND) SGOT/AST (test code = AST) 44 Unit/L 15-37 H SGPT/ALT (test code = ALT) 303 Unit/L 12-78 H ALKALINE PHOSPHATASE TOTAL (test 98 Unit/L 45-117 N code = ALKP) CREATININE W ESTIMATED [id number] 06:33:00 Test Item Value Reference Range Interpretation Comments ESTIMATED 394.29 est 85.0-125.0 H The estimated c reatinine CREATININE CRCL clearance is co mputed CLEARANCE (test using patien tweight, age, code = sex, and serum CREATCLEST) creatinine. Est imated creatinineclear ance units = ml/min. If a ny of the needed dataelem ents are missing the Lab oratory can not compute anestimation of the creatinine morgan elenita.--- DRUG DOSAGE JOSIE RT --- Drug dosage adj ustments utilize differe nt calculationpara meters. GLOMERULAR 141 estGFR >60 The estimated g lomerular FILTRATION RATE filtration r ate is (test code = GFR) computed u singpatient race, age, sex, and serum creatinine. If any of theneeded data elements are missing the Laboratory can notcompute an estimation o f the glomerular filt ration rate.The GFR va lue units = ml/min/1.73 m eter squared. Estim atedGFR values above 60 should be interpreted as >60, not anexact number. --- DRUG DOSAGE ALERT -- - Drug dosage adjustme nts utilize differe nt calculationpara meters. CBC W/AUTO [id number] 05:51:00 Test Item Value Reference Range Interpretation Comments WHITE BLOOD CELL (test code = 14.7 K/mm3 4.1-12.1 H WBC) RED BLOOD CELL (test code = RBC) 4.91 M/mm3 3.8-5.5 N HEMOGLOBIN (test code = HGB) 12.5 G/DL 10.6-15.8 N HEMATOCRIT (test code = HCT) 41.9 % 31.8-47.4 N MEAN CELL VOLUME (test code = 85.3 fL 80.1-101.1 N MCV) MEAN CELL HGB (test code = MCH) 25.5 pg 25.3-35.3 N MEAN CELL HGB CONCETRATION (test 29.8 G/DL 32.7-35.1 L code = MCHC) RED CELL DISTRIBUTION WIDTH 16.9 % 12.2-16.4 H (test code = RDW) RED CELL DISTRIBUTION WIDTH 52.4 fL 36.4-46.3 H (test code = RDW-SD) PLATELET COUNT (test code = PLT) 190 K/mm3 155-337 N MEAN PLATELET VOLUME (test code 11.9 fL 6.8-11.2 H = MPV) GRANULOCYTE % (test code = GR%) 71.8 % 37.8-82.6 N IMMATURE GRANULOCYTE % (test 0.7 % 0.0-2.0 N code = IG%) LYMPHOCYTE % (test code = LY%) 17.9 % 14.1-45.4 N MONOCYTE % (test code = MO%) 8.1 % 2.5-11.7 N EOSINOPHIL % (test code = EO%) 1.4 % 0.0-6.2 N BASOPHIL % (test code = BA%) 0.1 % 0.0-2.1 N NUCLEATED RBC % (test code = 0.0 /100WBC% 0.0-1.0 N NRBC%) GRANULOCYTE # (test code = GR#) 10.58 k/mm3 2.0-13.7 N IMMATURE GRANULOCYTE # (test 0.10 K/mm3 0.00-0.03 H code = IG#) LYMPHOCYTE # (test code = LY#) 2.64 K/mm3 0.6-3.8 N MONOCYTE # (test code = MO#) 1.19 K/mm3 0.11-0.59 H EOSINOPHIL # (test code = EO#) 0.20 K/mm3 0.0-0.4 N BASOPHIL # (test code = BA#) 0.01 K/mm3 0.0-0.1 N NUCLEATED RBC # (test code = 0.00 K/mm3 0.0-0.05 N NRBC#) GLUCOSE BEDSIDE [id number] 05:46:00 Test Item Value Reference Range Interpretation Comments GLUCOSE BEDSIDE TESTING (test code 110 MG/DL 70-119 N = GLUBED) ARTERIAL BLOOD [id number] 04:31:00 Test Item Value Reference Range Interpretation Comments ARTERIAL BLOOD GAS 7.51 pH units 7.35-7.45 H PH (test code = PHA) ARTERIAL BLOOD GAS 40 mmHg 35-45 N PCO2 (test code = PCO2A) ARTERIAL BLOOD GAS 54 mmHg 80-100 LL ON AT PO2 (test code = 0431, B.CPS .MTM1 PO2A) CALLED TO BIBI MUNOZ RN. Th e report was confirmed by re ad back protocols Y,N: Y. BICARBONATE TOTAL 32.1 mmol/L 22.0-26.0 H HCO3 (test code = HCO3) BASE EXCESS (test 9.2 mmol/L -3.0-3.0 H code = OLGA) FIO2 (test code = 80 % (calc) 21-100 N FIO2A) MODALITY (test code SIMV COMMENT DESCRIPTION = MOD) PaO2/FiO2 (test 67.50 mm/Hg code = [id number]) ABG PATIENT RESP 22 /MIN PT RespRate RATE (test code = RRPATA) ABG TIDAL VOLUME 500 ML (test code = TVA) ABG PEEP (test code 12.0 cm H20 0.0-99.9 = PEEPA) ABG PRESSURE 12.0 cm H20 See_Comment [Automated SUPPORT (test code message] The system = PSABG) which generated this result transmitted reference range : 0-. The referen ce range was not u sed to interpret th is result as normal/abnormal . ABG SITE (test code RT RADIAL ARTKIT DESCRIPTION = SITEA) MODIFIED DAINA'S POSITIVE POSITIVE (test code = Circ.CHK MODALL) O2 SATURATION (test 88 % (calc) 95-100 L code = O2S/C) GLUCOSE BEDSIDE [id number] 16:45:00 Test Item Value Reference Range Interpretation Comments GLUCOSE BEDSIDE TESTING (test code = 84 MG/DL 70-119 N GLUBED) Covid 19 InHouse [id number] 13:28:00 Test Item Value Reference Range Interpretation Comments Covid 19 Negative Negative A negative resu lt does not InHouse NTX preclude the SA RS-COV-2 (test code = viralinfection and should not be [id number]) used as the so le basis forpatient terri gement decisions. Negative result s must becombined with clinical o bservations, patient history , andepidemiologi brooke information. Viral levels in clinicalsamples below the detec tion limit of the assay could daria d tonegative results. This t est was performed using the [employer] SmartTM COVID-19 PCRassay. This test was developed and i ts performancechar acteristics were determined by [facility]. Thi s test has notbeen FDA alejandro ared or approved. This test is au thorized by theFDA under Em ergency Use Authorization(E UA). The EUA willremain in e ffect unless it is terminated o r revoked by FDA . Testing staci eters have not been validated for screeningasympt omatic patients. This test was v alidated according to e FDA's guidancedocumen t "Policy for Diagnostics marlon ting in LaboratoriesCer tified to Perform High Complexity Testing under CLIA". First test? NoEmployed in Healthcare? NoSymptomatic as defined by CDC? YesDate of Symptom Onset: [id number] due to COVID? NoIn ICU due to COVID? YesResident in a congregate care setting? No? NoAge at collection: Y GLUCOSE BEDSIDE [id number] 12:19:00 Test Item Value Reference Range Interpretation Comments GLUCOSE BEDSIDE TESTING (test code = 73 MG/DL 70-119 N GLUBED) - XR CHEST 1 [id number] 07:38:00 [facility] M[facility] : 1970 Sex: F FAX: Ruthy Boateng MD [phone] [place]: C St: [facility] FAX: Anthony Galan MD [phone] Patient Name: CAROLMARCELLE ALMENDAREZ Unit No: [id number] EXAMS: CPT CODE: [id number] XR CHEST 1 V 60042 EXAMINATION: - XR CHEST 1 V HISTORY: Respiratory failure COMPARISON: Chest x-ray performed the previous day LOCATION CODE: C3 FINDINGS: Single frontal view of the chest is submitted for evaluation. Life support apparatus is unchanged. There is more pronounced hazy changes seen in the rightlung base on today's examination which may reflect increasing volume of right pleural fluid. Increased density left retrocardiac region appears relatively stable. Cardiac silhouette and mediastinal contours are unchanged. No acute bony abnormalities are identified. IMPRESSION: Increased density of the right lung base compared to the prior study, which may reflect increasing volume of pleural fluid at 0738 Reported and signed by: Mar Metz MD CC: Ruthy Boateng MD; Anthony Whittaker MD Dictated Date/Time: 08/09/2020 (737)Technologist: Toyin Jamil Transcribed Date/Time: 08/09/2020 (737) By: [email or web address] Orig Print D/T: S: 08/09/2020 (0741) [facility]ENTERCh[facility] Quintin NAME: MARCELLE MEDINA [facility] PHYS: [id number] - Ruthy Boateng MD [address] [place], [place] [address]VD : 1970 AGE: 50 SEX: F QUINT[place], CASE[place] [address] LOC: B.ICU13 W PHONE #: [phone] EXAM DATE: 08/09/2020 STATUS: ADM IN FAX #: [phone] RAD NO: DC Dt: PAGE 1 Signed ReportBASIC METABOLIC [id number] 06:27:00 Test Item Value Reference Range Interpretation Comments SODIUM (test code = 138.0 mmol/L 133-144 N NA) POTASSIUM (test 3.3 mmol/L 3.5-5.1 L code = K) CHLORIDE (test code 102 mmol/L 95-105 N = CL) CARBON DIOXIDE 31 mmol/L 21-32 N (test code = CO2) ANION GAP (test 5.0 GAP calc 4.0-15.0 N code = GAP) GLUCOSE (test code 94 MG/DL 70-110 N = GLU) BLOOD UREA NITROGEN 28 MG/DL 7-18 H (test code = BUN) CREATININE (test 0.53 MG/DL 0.55-1.30 L Results may be code = CREAT) depressed if p atient is takingN-Acetylc ystei ne (NAC) and Metamizole (Dipyrone). CALCIUM (test code 8.6 MG/DL 8.5-10.1 N = CA) INDEX HEMOLYSIS 3 SMALL 25-50 See_Comment [Automated message] (test code = MG Index/DL The system [employer] [email or web address]) generated this result transmit cipriano reference range : 1 NORMAL. The reference range was not used to interpret this result as normal/abnormal . INDEX ICTERIC (test 1 NORMAL <2 MG See_Comment [Auto mated message] code = ICTINDEX) Index/DL The system which generated this result transmit cipriano reference range : 1 NORMAL. The reference range was not used to interpret this result as normal/abnormal . INDEX LIPEMIA (test 1 NORMAL <50 MG See_Comment [Aut omated message] code = LIPINDEX) Index/DL The system which generated this result transmit cipriano reference range : 1 NORMAL. The reference range was not used to interpret this result as normal/abnormal . HEPATIC FUNCTION [id number] 06:27:00 Test Item Value Reference Range Interpretation Comments TOTAL PROTEIN (test code = PROT) 6.3 G/DL 6.4-8.2 L ALBUMIN (test code = ALB) 3.0 G/DL 3.4-5.0 L BILIRUBIN TOTAL (test code = BILT) 0.36 MG/DL 0.00-1.00 N BILIRUBIN DIRECT (test code = 0.15 MG/DL 0.00-0.30 N BILD) BILIRUBIN INDIRECT (test code = 0.21 MG/DL 0.2-1.3 N BILIND) SGOT/AST (test code = AST) 81 Unit/L 15-37 H SGPT/ALT (test code = ALT) 469 Unit/L 12-78 H ALKALINE PHOSPHATASE TOTAL (test 104 Unit/L 45-117 N code = ALKP) CREATININE W ESTIMATED [id number] 06:27:00 Test Item Value Reference Range Interpretation Comments ESTIMATED 349.65 est 85.0-125.0 H The estimated c reatinine CREATININE CRCL clearance is co mputed CLEARANCE (test using patien tweight, age, code = sex, and serum CREATCLEST) creatinine. Est imated creatinineclear ance units = ml/min. If a ny of the needed dataelem ents are missing the Lab oratory can not compute anestimation of the creatinine morgan elenita.--- DRUG DOSAGE JOSIE RT --- Drug dosage adj ustments utilize differe nt calculationpara meters. GLOMERULAR 123 estGFR >60 The estimated g lomerular FILTRATION RATE filtration r ate is (test code = GFR) computed u singpatient race, age, sex, and serum creatinine. If any of theneeded data elements are missing the Laboratory can notcompute an estimation o f the glomerular filt ration rate.The GFR va lue units = ml/min/1.73 m eter squared. Estim atedGFR values above 60 should be interpreted as >60, not anexact number. --- DRUG DOSAGE ALERT -- - Drug dosage adjustme nts utilize differe nt calculationpara meters. BASIC METABOLIC [id number] 05:47:00 Test Item Value Reference Range Interpretation Comments SODIUM (test code = 138.0 mmol/L 133-144 N NA) POTASSIUM (test 3.3 mmol/L 3.5-5.1 L code = K) CHLORIDE (test code 102 mmol/L 95-105 N = CL) CARBON DIOXIDE mmol/L 21-32 (test code = CO2) ANION GAP (test GAP calc 4.0-15.0 code = GAP) GLUCOSE (test code MG/DL 70-110 = GLU) BLOOD UREA NITROGEN MG/DL 7-18 (test code = BUN) CREATININE (test MG/DL 0.55-1.30 code = CREAT) CALCIUM (test code MG/DL 8.5-10.1 = CA) INDEX HEMOLYSIS 3 SMALL 25-50 See_Comment [Automated message] (test code = MG Index/DL The system [employer] HEMINDEX) generated this result transmit cipriano reference range : 1 NORMAL. The reference range was not used to interpret this result as normal/abnormal . INDEX ICTERIC (test 1 NORMAL <2 MG See_Comment [Auto mated message] code = ICTINDEX) Index/DL The system which generated this result transmit cipriano reference range : 1 NORMAL. The reference range was not used to interpret this result as normal/abnormal . INDEX LIPEMIA (test 1 NORMAL <50 MG See_Comment [Aut omated message] code = LIPINDEX) Index/DL The system which generated this result transmit cipriano reference range : 1 NORMAL. The reference range was not used to interpret this result as normal/abnormal . HEPATIC FUNCTION [id number] 05:47:00 Test Item Value Reference Range Interpretation Comments TOTAL PROTEIN (test code = PROT) G/DL 6.4-8.2 ALBUMIN (test code = ALB) G/DL 3.4-5.0 BILIRUBIN TOTAL (test code = BILT) MG/DL 0.00-1.00 BILIRUBIN DIRECT (test code = BILD) MG/DL 0.00-0.30 BILIRUBIN INDIRECT (test code = MG/DL 0.2-1.3 BILIND) SGOT/AST (test code = AST) Unit/L 15-37 SGPT/ALT (test code = ALT) Unit/L 12-78 ALKALINE PHOSPHATASE TOTAL (test code Unit/L 45-117 = ALKP) CREATININE W ESTIMATED [id number] 05:47:00 Test Item Value Reference Range Interpretation Comments ESTIMATED CREATININE CLEARANCE est CRCL 85.0-125.0 (test code = CREATCLEST) CBC W/AUTO [id number] 05:40:00 Test Item Value Reference Range Interpretation Comments WHITE BLOOD CELL (test code = 11.8 K/mm3 4.1-12.1 N WBC) RED BLOOD CELL (test code = RBC) 4.96 M/mm3 3.8-5.5 N HEMOGLOBIN (test code = HGB) 12.5 G/DL 10.6-15.8 N HEMATOCRIT (test code = HCT) 41.9 % 31.8-47.4 N MEAN CELL VOLUME (test code = 84.5 fL 80.1-101.1 N MCV) MEAN CELL HGB (test code = MCH) 25.2 pg 25.3-35.3 L MEAN CELL HGB CONCETRATION (test 29.8 G/DL 32.7-35.1 L code = MCHC) RED CELL DISTRIBUTION WIDTH 16.9 % 12.2-16.4 H (test code = RDW) RED CELL DISTRIBUTION WIDTH 52.3 fL 36.4-46.3 H (test code = RDW-SD) PLATELET COUNT (test code = PLT) 214 K/mm3 155-337 N MEAN PLATELET VOLUME (test code 11.9 fL 6.8-11.2 H = MPV) GRANULOCYTE % (test code = GR%) 65.2 % 37.8-82.6 N IMMATURE GRANULOCYTE % (test 0.6 % 0.0-2.0 N code = IG%) LYMPHOCYTE % (test code = LY%) 24.7 % 14.1-45.4 N MONOCYTE % (test code = MO%) 9.0 % 2.5-11.7 N EOSINOPHIL % (test code = EO%) 0.3 % 0.0-6.2 N BASOPHIL % (test code = BA%) 0.2 % 0.0-2.1 N NUCLEATED RBC % (test code = 0.0 /100WBC% 0.0-1.0 N NRBC%) GRANULOCYTE # (test code = GR#) 7.72 k/mm3 2.0-13.7 N IMMATURE GRANULOCYTE # (test 0.07 K/mm3 0.00-0.03 H code = IG#) LYMPHOCYTE # (test code = LY#) 2.93 K/mm3 0.6-3.8 N MONOCYTE # (test code = MO#) 1.06 K/mm3 0.11-0.59 H EOSINOPHIL # (test code = EO#) 0.04 K/mm3 0.0-0.4 N BASOPHIL # (test code = BA#) 0.02 K/mm3 0.0-0.1 N NUCLEATED RBC # (test code = 0.00 K/mm3 0.0-0.05 N NRBC#) ARTERIAL BLOOD [id number] 04:25:00 Test Item Value Reference Range Interpretation Comments ARTERIAL BLOOD GAS 7.50 pH units 7.35-7.45 H PH (test code = PHA) ARTERIAL BLOOD GAS 42 mmHg 35-45 N PCO2 (test code = PCO2A) ARTERIAL BLOOD GAS 59 mmHg 80-100 LL ON AT PO2 (test code = 0424, B.CPS .MTM1 PO2A) CALLED TO TOR MODI RN. Th e report was confirmed by re ad back protocols Y,N: Y. BICARBONATE TOTAL 32.6 mmol/L 22.0-26.0 H HCO3 (test code = HCO3) BASE EXCESS (test 9.5 mmol/L -3.0-3.0 H code = OLGA) FIO2 (test code = 75 % (calc) 21-100 N FIO2A) MODALITY (test code SIMV COMMENT DESCRIPTION = MOD) PaO2/FiO2 (test 78.66 mm/Hg code = [id number]) ABG PATIENT RESP 22 /MIN PT RespRate RATE (test code = RRPATA) ABG TIDAL VOLUME 500 ML (test code = TVA) ABG PEEP (test code 10 cm H20 0.0-99.9 = PEEPA) ABG PRESSURE 12.0 cm H20 See_Comment [Automated SUPPORT (test code message] The system = PSABG) which generated this result transmitted reference range : 0-. The referen ce range was not u sed to interpret th is result as normal/abnormal . ABG SITE (test code RT RADIAL ARTKIT DESCRIPTION = SITEA) MODIFIED DAINA'S POSITIVE POSITIVE (test code = Circ.CHK MODALL) O2 SATURATION (test 91 % (calc) 95-100 L code = O2S/C) GLUCOSE BEDSIDE [id number] 16:50:00 Test Item Value Reference Range Interpretation Comments GLUCOSE BEDSIDE TESTING (test code 121 MG/DL 70-119 H = GLUBED) HEPATIC FUNCTION [id number] 13:17:00 Test Item Value Reference Range Interpretation Comments TOTAL PROTEIN (test 5.9 G/DL 6.4-8.2 L code = PROT) ALBUMIN (test code = 2.7 G/DL 3.4-5.0 L ALB) BILIRUBIN TOTAL 0.31 MG/DL 0.00-1.00 N (test code = BILT) BILIRUBIN DIRECT 0.15 MG/DL 0.00-0.30 N (test code = BILD) BILIRUBIN INDIRECT 0.16 MG/DL 0.2-1.3 L (test code = BILIND) SGOT/AST (test code 105 Unit/L 15-37 H = AST) SGPT/ALT (test code 608 Unit/L 12-78 H = ALT) ALKALINE PHOSPHATASE 108 Unit/L 45-117 N TOTAL (test code = ALKP) INDEX HEMOLYSIS 1 NORMAL <10 MG See_Comment [Automat ed (test code = Index/DL message] The sy stem HEMINDEX) which generated this result transmitted reference range : 1 NORMAL. The reference range was not used to interpret this result as normal/abnormal . INDEX ICTERIC (test 1 NORMAL <2 MG See_Comment [Auto mated code = ICTINDEX) Index/DL message] Th e system which generated this result transmitted reference range : 1 NORMAL. The reference range was not used to interpret this result as normal/abnormal . INDEX LIPEMIA (test 1 NORMAL <50 MG See_Comment [Aut omated code = LIPINDEX) Index/DL message] Th e system which generated this result transmitted reference range : 1 NORMAL. The reference range was not used to interpret this result as normal/abnormal . Specimen comments: Prior to Remdesivir dosingCREATININE W ESTIMATED GFR 2020-08-08 13:17:00 Test Item Value Reference Range Interpretation Comments ESTIMATED 285.10 est 85.0-125.0 H The estimated c reatinine CREATININE CRCL clearance is co mputed CLEARANCE (test using patien tweight, age, code = sex, and serum CREATCLEST) creatinine. Est imated creatinineclear ance units = ml/min. If a ny of the needed dataelem ents are missing the Lab oratory can not compute anestimation of the creatinine morgan elenita.--- DRUG DOSAGE JOSIE RT --- Drug dosage adj ustments utilize differe nt calculationpara meters. GLOMERULAR 97 estGFR >60 The estimated g lomerular FILTRATION RATE filtration r ate is (test code = GFR) computed u singpatient race, age, sex, and serum creatinine. If any of theneeded data elements are missing the Laboratory can notcompute an estimation o f the glomerular filt ration rate.The GFR va lue units = ml/min/1.73 m eter squared. Estim atedGFR values above 60 should be interpreted as >60, not anexact number. --- DRUG DOSAGE ALERT -- - Drug dosage adjustme nts utilize differe nt calculationpara meters. CREATININE (test 0.65 MG/DL 0.55-1.30 N Results may be depressed code = CREAT) if patient is takingN-Acetylc ysteine (NAC) and Metam izole (Dipyrone). Specimen comments: Prior to Remdesivir dosingHEPATIC FUNCTION [id number] 13:15:00 Test Item Value Reference Range Interpretation Comments TOTAL PROTEIN (test G/DL 6.4-8.2 code = PROT) ALBUMIN (test code = 2.7 G/DL 3.4-5.0 L ALB) BILIRUBIN TOTAL MG/DL 0.00-1.00 (test code = BILT) BILIRUBIN DIRECT 0.15 MG/DL 0.00-0.30 N (test code = BILD) BILIRUBIN INDIRECT MG/DL 0.2-1.3 (test code = BILIND) SGOT/AST (test code 105 Unit/L 15-37 H = AST) SGPT/ALT (test code 608 Unit/L 12-78 H = ALT) ALKALINE PHOSPHATASE Unit/L 45-117 TOTAL (test code = ALKP) INDEX HEMOLYSIS 1 NORMAL <10 MG See_Comment [Automat ed (test code = Index/DL message] The sy stem HEMINDEX) which generated this result transmitted reference range : 1 NORMAL. The reference range was not used to interpret this result as normal/abnormal . INDEX ICTERIC (test 1 NORMAL <2 MG See_Comment [Auto mated code = ICTINDEX) Index/DL message] Th e system which generated this result transmitted reference range : 1 NORMAL. The reference range was not used to interpret this result as normal/abnormal . INDEX LIPEMIA (test 1 NORMAL <50 MG See_Comment [Aut omated code = LIPINDEX) Index/DL message] Th e system which generated this result transmitted reference range : 1 NORMAL. The reference range was not used to interpret this result as normal/abnormal . Specimen comments: Prior to Remdesivir dosingCREATININE W ESTIMATED GFR 2020-08-08 13:15:00 Test Item Value Reference Range Interpretation Comments ESTIMATED 285.10 est 85.0-125.0 H The estimated c reatinine CREATININE CRCL clearance is co mputed CLEARANCE (test using aliciaen carolinight, age, code = sex, and serum CREATCLEST) creatinine. Est imated creatinineclear ance units = ml/min. If a ny of the needed dataelem ents are missing the Lab oratory can not compute anestimation of the creatinine morgan elenita.--- DRUG DOSAGE JOSIE RT --- Drug dosage adj ustments utilize differe nt calculationpara meters. GLOMERULAR 97 estGFR >60 The estimated g lomerular FILTRATION RATE filtration r ate is (test code = GFR) computed u singpatient race, age, sex, and serum creatinine. If any of theneeded data elements are missing the Laboratory can notcompute an estimation o f the glomerular filt ration rate.The GFR va lue units = ml/min/1.73 m eter squared. Estim atedGFR values above 60 should be interpreted as >60, not anexact number. --- DRUG DOSAGE ALERT -- - Drug dosage adjustme nts utilize differe nt calculationpara meters. CREATININE (test 0.65 MG/DL 0.55-1.30 N Results may be depressed code = CREAT) if patient is takingN-Acetylc ysteine (NAC) and Metam izole (Dipyrone). Specimen comments: Prior to Remdesivir dosingPROTHROMBIN [id number] 13:02:00 Test Item Value Reference Range Interpretation Comments PT PATIENT (test code 13.5 SECONDS 9.4-12.5 H = PTP) INTERNATIONAL NORMAL 1.16 INR Unit 0.88-1.13 H ------ RATIO (test code = --------- INR) ---- --Therapeutic r wojciech for INR is dependent upon the situation.2.0-3 .0 Prophylaxis / venous thromboembolism , Treatment of DVT, Acute myocardial infarction stro ke prevention, Systemic emboli sm prevention in fibrillation3.0 -4.5 AMI recurrence prevention, Systemic emboli sm prevention in prosthetic hear t 3.0-5.4 AMI mortality reduc tion GLUCOSE BEDSIDE [id number] 11:35:00 Test Item Value Reference Range Interpretation Comments GLUCOSE BEDSIDE TESTING (test code 150 MG/DL 70-119 H = GLUBED) - XR CHEST 1 [id number] 07:11:00 [facility] : 1970 Sex: F FAX: Ruthy Boateng MD [phone] [place]: St: ADM FAX: Anthony Galan MD [phone] Patient Name: MARCELLE MEDINA Unit No: [id number] EXAMS: CPT CODE: [id number] XR CHEST 1 V 78041 EXAMINATION: - XR CHEST 1 V HISTORY: Respiratory failure COMPARISON: Chest x-ray performed the previous day LOCATION CODE: C3 FINDINGS: Single frontal view of the chest is submitted for evaluation. Life support apparatus is unchanged. Increased linear markings in the right lung base are stable as is enlargement of the cardiac silhouette and a small left pleural effusion. No acute bony abnormalities are identified. IMPRESSION: No significant change from the prior study at 0711 Reported and signed by: Mar Metz MD CC: Ruthy Boateng MD; Anthony Whittaker MD Dictated Date/Time: 08/08/2020 (07)Technologist: Cindy Couch Transcribed Date/Time: 08/08/2020 (0711) By: [email or web address] Orig Print D/T: S: 08/08/2020 (0715) GALDINO Ribeiro NAME: MARCELLE MEDINA [facility] PHYS: AHMRA.[id number] - Ruthy Boateng MD [address] [place] [address] : 1970 AGE: 50 SEX: Cb RIBEIRO, CASE[place] [address] LOC: [id number] W PHONE #: [phone] EXAM DATE: 08/08/2020 STATUS: ADM IN FAX #: [phone] RAD NO: DC Dt: PAGE 1 Signed ReportCBC W/AUTO [id number] 06:40:00 Test Item Value Reference Range Interpretation Comments WHITE BLOOD CELL (test code = 9.3 K/mm3 4.1-12.1 N WBC) RED BLOOD CELL (test code = RBC) 4.86 M/mm3 3.8-5.5 N HEMOGLOBIN (test code = HGB) 12.3 G/DL 10.6-15.8 N HEMATOCRIT (test code = HCT) 41.3 % 31.8-47.4 N MEAN CELL VOLUME (test code = 85.0 fL 80.1-101.1 N MCV) MEAN CELL HGB (test code = MCH) 25.3 pg 25.3-35.3 N MEAN CELL HGB CONCETRATION (test 29.8 G/DL 32.7-35.1 L code = MCHC) RED CELL DISTRIBUTION WIDTH 17.1 % 12.2-16.4 H (test code = RDW) RED CELL DISTRIBUTION WIDTH 52.9 fL 36.4-46.3 H (test code = RDW-SD) PLATELET COUNT (test code = PLT) 215 K/mm3 155-337 N MEAN PLATELET VOLUME (test code 11.7 fL 6.8-11.2 H = MPV) GRANULOCYTE % (test code = GR%) 78.4 % 37.8-82.6 N IMMATURE GRANULOCYTE % (test 0.9 % 0.0-2.0 N code = IG%) LYMPHOCYTE % (test code = LY%) 15.0 % 14.1-45.4 N MONOCYTE % (test code = MO%) 5.5 % 2.5-11.7 N EOSINOPHIL % (test code = EO%) 0.1 % 0.0-6.2 N BASOPHIL % (test code = BA%) 0.1 % 0.0-2.1 N NUCLEATED RBC % (test code = 0.0 /100WBC% 0.0-1.0 N NRBC%) GRANULOCYTE # (test code = GR#) 7.29 k/mm3 2.0-13.7 N IMMATURE GRANULOCYTE # (test 0.08 K/mm3 0.00-0.03 H code = IG#) LYMPHOCYTE # (test code = LY#) 1.39 K/mm3 0.6-3.8 N MONOCYTE # (test code = MO#) 0.51 K/mm3 0.11-0.59 N EOSINOPHIL # (test code = EO#) 0.01 K/mm3 0.0-0.4 N BASOPHIL # (test code = BA#) 0.01 K/mm3 0.0-0.1 N NUCLEATED RBC # (test code = 0.00 K/mm3 0.0-0.05 N NRBC#) PT AND [id number] 06:10:00 Test Item Value Reference Interpretation Comments Range PT PATIENT (test 12.4 SECONDS 9.4-12.5 N code = PTP) INTERNATIONAL 1.09 INR 0.88-1.13 N NORMAL RATIO (test Unit --------- code = INR) ---------Therap eutic range for INR i s dependent upon the situation.2.0-3 .0 Prophylaxis / v enous thromboembolism , Treatment of DVT, Acute myocardia l infarction stro ke prevention, Systemic emboli sm prevention in fibrillation3.0 -4.5 AMI recurrence prev ention, Systemic emboli sm prevention in p rosthetic heart 3.0-5.4 A TN mortality reduc tion THROMBOPLASTIN TIME 25.9 SECONDS 24-37.7 N THERAPEU TIC RANGE FOR PARTIAL (test code UNFRACTIO NATED HEPARIN = = PTT) 50.5-83.6 SEC T his test is not recommen ded to monitor low molecularweight heparin or danaparoid. Order LMWH test COLLECTION THROUGH LINES THAT HAVE BEEN PREVIOUSLY FLUS HEDWITH HEPARIN SHOULD BE AVOIDED DUE TO POSSIBLE HEPARINCONTAMIN ATION Is this a LINE draw? NANTICOAGULANT THERAPY [Y,N]: NOCOVID 19 Asymptomatic IH AG 2020-08-08 06:07:00 Test Item Value Reference Range Interpretation Comments COVID 19 Asymptomatic IH Positive Neg A ON 08/08/20 AT 0605, AG (test code = a.STF.FA9 [facility] REID BABAR.The report was conf irmed by read back protocols Y,N: Y. Specimen comments: FOR LEARNING ANALYST PROCEDURE TODAYComments to Rn Women Services: NEEDS RAPID TESTINGBASIC METABOLIC [id number] 05:53:00 Test Item Value Reference Range Interpretation Comments SODIUM (test code = 137.0 mmol/L 133-144 N NA) POTASSIUM (test 3.9 mmol/L 3.5-5.1 N code = K) CHLORIDE (test code 103 mmol/L 95-105 N = CL) CARBON DIOXIDE 31 mmol/L 21-32 N (test code = CO2) ANION GAP (test 3.0 GAP calc 4.0-15.0 L code = GAP) GLUCOSE (test code 136 MG/DL 70-110 H = GLU) BLOOD UREA NITROGEN 28 MG/DL 7-18 H (test code = BUN) CREATININE (test 0.58 MG/DL 0.55-1.30 N Results may be code = CREAT) depressed if p atient is takingN-Acetylc ystei ne (NAC) and Metamizole (Dipyrone). CALCIUM (test code 8.6 MG/DL 8.5-10.1 N = CA) INDEX HEMOLYSIS 2 TRACE 10-25 See_Comment [Automated message] (test code = MG Index/DL The system [employer] [email or web address]) generated this result transmit cipriano reference range : 1 NORMAL. The reference range was not used to interpret this result as normal/abnormal . INDEX ICTERIC (test 1 NORMAL <2 MG See_Comment [Auto mated message] code = ICTINDEX) Index/DL The system which generated this result transmit cipriano reference range : 1 NORMAL. The reference range was not used to interpret this result as normal/abnormal . INDEX LIPEMIA (test 1 NORMAL <50 MG See_Comment [Aut omated message] code = LIPINDEX) Index/DL The system which generated this result transmit cipriano reference range : 1 NORMAL. The reference range was not used to interpret this result as normal/abnormal . ARTERIAL BLOOD [id number] 04:13:00 Test Item Value Reference Range Interpretation Comments ARTERIAL BLOOD GAS 7.51 pH units 7.35-7.45 H PH (test code = PHA) ARTERIAL BLOOD GAS 43 mmHg 35-45 N PCO2 (test code = PCO2A) ARTERIAL BLOOD GAS 70 mmHg 80-100 L PO2 (test code = PO2A) BICARBONATE TOTAL 34.4 mmol/L 22.0-26.0 H HCO3 (test code = HCO3) BASE EXCESS (test 11.4 mmol/L -3.0-3.0 H code = OLGA) FIO2 (test code = 75 % (calc) 21-100 N FIO2A) MODALITY (test code SIMV COMMENT DESCRIPTION = MOD) PaO2/FiO2 (test 93.33 mm/Hg code = [id number]) ABG PATIENT RESP 22 /MIN PT RespRate RATE (test code = RRPATA) ABG TIDAL VOLUME 500 ML (test code = TVA) ABG PEEP (test code 10 cm H20 0.0-99.9 = PEEPA) ABG PRESSURE 12.0 cm H20 See_Comment [Automated SUPPORT (test code message] The system = PSABG) which generated this result transmitted reference range : 0-. The referen ce range was not u sed to interpret th is result as normal/abnormal . ABG SITE (test code RT RADIAL ARTKIT DESCRIPTION = SITEA) MODIFIED DAINA'S POSITIVE POSITIVE (test code = Circ.CHK MODALL) O2 SATURATION (test 95 % (calc) 95-100 N code = O2S/C) - NM PULM PERF [id number] 13:13:00 [facility] : 1970 Sex: F Patient Name: ROBERTYvonneMARCELLE Unit No: [id number] EXAMS: CPT CODE: [id number] NM PULM PERF PARTIC [id number] Nuclear medicine lung perfusion scan: INDICATION: refractory hypoxia; Allergic to IV contrast rule out PE RADIOPHARMACEUTICAL: 4.8mCi Tc-99m MAA IV Comparison: None LOCATION: C3 FINDINGS: The study is reviewed in conjunction with the recent chest films. Perfusion images demonstrate homogenous distribution throughout both lungs without segmental or sub-segmental defects. IMPRESSION: 1. Very low Probability lung perfusion for PulmonaryEmbolus. at 1313 Reported and signed by: Jacky Go MD Nuclear Medicine Cardiology exams performed on dual head cameras with appropriate software for processing and reporting. CC: Ruthy Boateng MD; Anthony Whittaker MD [facility]in NAME: MARCELLE MEDINA MEDICAL IMAGING PHYS: AHMR Ruthy Boateng MD [address] [place] [address] : 1970 AGE: 50 SEX: Cb [place], [place] [address] LOC: B.ICU08 W PHONE #: [phone] EXAM DATE: 08/07/2020 STATUS: ADM IN FAX #: [phone] RAD NO: DC Dt: PAGE 1 Signed Report Patient Name: MARCELLE MEDINA TANESHA Unit No: [id number] EXAMS: CPT CODE: [id number] NM PULM PERF PARTIC [id number] <Continued> Technologist: Rose Lizarraga Transcribed Date/Time: 08/07/2020 (1313) Baldomero [email or web address] Orig Print D/T: S: 08/07/2020 (1316) GALDINO Ribeiro NAME: MARCELLE MEDINA MEDICAL IMAGING PHYS: AHMR - Ruthy Boateng MD [address] [place] [address] : 1970 AGE: 50 SEX: [place] [id number] LOC: SantiagoICU08 W PHONE #: [phone] EXAM DATE: 08/07/2020 STATUS: ADM IN FAX #: [phone] RAD NO: DC Dt: PAGE 2 Signed Report- XR CHEST 1 [id number] 07:14:00 [facility] AMBARSTACYYvonne MARCELLE ALMENDAREZ : 1970 Sex: F FAX: Ruthy Boateng MD [phone] [place]: St: ADM FAX: Anthony Galan MD [phone] Patient Name: CAROLMARCELLE ALMENDAREZ Unit No: [id number] EXAMS: CPT CODE: [id number] XR CHEST 1 V [id number] EXAMINATION: - XR CHEST 1 V HISTORY: Respiratory failure COMPARISON: Chest x-ray performed the previous day LOCATION CODE: C3 FINDINGS: Single frontal view of the chest is submitted for evaluation. Life support apparatus is unchanged. Cardiac silhouette remains prominent. Linear markings in the right lower lung are more pronounced on today's examination and may represent subsegmental atelectasis. Small left pleural effusion appears stable. No acute bony abnormalities are identified. IMPRESSION: Slightly worsened linear changes in the right lung base, likely atelectasis t 0714 Reported and signed by: Mar Metz MD CC:Ruthy Boateng MD; Anthony Whittaker MD Dictated Date/Time: 08/07/2020 (713)Technologist: Sandra Moses Transcribed Date/Time: 08/07/2020 (713) By: [email or web address] Orig Print D/T: S: 08/07/2020 (716) GALDINO Ribeiro NAME: MARCELLE MEDINA MEDICAL IMAGING PHYS: JAKUB - Ruthy Boateng MD [address] [place] [address] : 1970 AGE: 50 SEX: Cb [place], [place] [address] LOC: B.ICU08 W PHONE #: [phone] EXAM DATE: 08/07/2020 STATUS: ADM IN FAX #: [phone] RAD NO: DC Dt: PAGE 1 Signed ReportARTERIAL BLOOD GAS 2020-08-07 05:27:00 Test Item Value Reference Range Interpretation Comments ARTERIAL BLOOD GAS 7.48 pH units 7.35-7.45 H PH (test code = PHA) ARTERIAL BLOOD GAS 46 mmHg 35-45 H PCO2 (test code = PCO2A) ARTERIAL BLOOD GAS 62 mmHg 80-100 L PO2 (test code = PO2A) BICARBONATE TOTAL 34.3 mmol/L 22.0-26.0 H HCO3 (test code = HCO3) BASE EXCESS (test 10.8 mmol/L -3.0-3.0 H code = OLGA) FIO2 (test code = 70 % (calc) 21-100 N FIO2A) MODALITY (test code SIMV COMMENT DESCRIPTION = MOD) PaO2/FiO2 (test 88.57 mm/Hg code = [id number]) ABG PATIENT RESP 22 /MIN PT RespRate RATE (test code = RRPATA) ABG TIDAL VOLUME 500 ML (test code = TVA) ABG PEEP (test code 10.0 cm H20 0.0-99.9 = PEEPA) ABG PRESSURE 12.0 cm H20 See_Comment [Automated SUPPORT (test code message] The system = PSABG) which generated this result transmitted reference range : 0-. The referen ce range was not u sed to interpret th is result as normal/abnormal . ABG SITE (test code RT RADIAL ARTKIT DESCRIPTION = SITEA) MODIFIED DAINA'S POSITIVE POSITIVE (test code = Circ.CHK MODALL) O2 SATURATION (test 93 % (calc) 95-100 L code = O2S/C) COMPREHENSIVE METABOLIC [id number] 05:01:00 Test Item Value Reference Range Interpretation Comments SODIUM (test code = 139.0 mmol/L 133-144 N NA) POTASSIUM (test code 4.2 mmol/L 3.5-5.1 N = K) CHLORIDE (test code 104 mmol/L 95-105 N = CL) CARBON DIOXIDE (test 32 mmol/L 21-32 N code = CO2) ANION GAP (test code 3.0 GAP calc 4.0-15.0 L = GAP) GLUCOSE (test code = 154 MG/DL 70-110 H GLU) BLOOD UREA NITROGEN 24 MG/DL 7-18 H (test code = BUN) GLOMERULAR 104 estGFR >60 The estimated FILTRATION RATE glomerular (test code = GFR) filtration rate is computed usingpatient ra ce, age, sex, and s yokasta creatinine. If any of theneeded da ta elements are mi ssing the Laboratory can notcompute an estimation of t he glomerular filtration rate .The GFR value units = ml/min/1.73 met er squared. EstimatedGFR va lues above 60 should be interpreted as >60, not anexact number.--- DRUG DOSAGE ALERT -- - Drug dosage adjustments uti lize different calculationpara meter s. CREATININE (test 0.61 MG/DL 0.55-1.30 N Results may be code = CREAT) depressed if p atient is takingN-Acetylc ystei ne (NAC) and Metamizole (Dipyrone). TOTAL PROTEIN (test 6.2 G/DL 6.4-8.2 L code = PROT) ALBUMIN (test code = 2.8 G/DL 3.4-5.0 L ALB) ALBUMIN/GLOBULIN 0.8 RATIO 1.2-2.2 L RATIO (test code = A/G) CALCIUM (test code = 8.6 MG/DL 8.5-10.1 N CA) BILIRUBIN TOTAL 0.44 MG/DL 0.00-1.00 N (test code = BILT) BILIRUBIN DIRECT 0.14 MG/DL 0.00-0.30 N (test code = BILD) BILIRUBIN INDIRECT 0.30 MG/DL 0.2-1.3 N (test code = BILIND) SGOT/AST (test code 419 Unit/L 15-37 H = AST) SGPT/ALT (test code 1108 Unit/L 12-78 H REPORTED RESULTS = ALT) VERIFIED WITH AUTO-DILUTION PROCEDURES. ALKALINE PHOSPHATASE 126 Unit/L 45-117 H TOTAL (test code = ALKP) INDEX HEMOLYSIS 1 NORMAL <10 See_Comment [Automated message] (test code = MG Index/DL The system [employer] [email or web address]) generated this result transmit cipriano reference range : 1 NORMAL. The reference range was not used to interpret this result as normal/abnormal . INDEX ICTERIC (test 1 NORMAL <2 MG See_Comment [Auto mated message] code = ICTINDEX) Index/DL The system which generated this result transmit cipriano reference range : 1 NORMAL. The reference range was not used to interpret this result as normal/abnormal . INDEX LIPEMIA (test 1 NORMAL <50 See_Comment [Automa cipriano message] code = LIPINDEX) MG Index/DL The system which generated this result transmit cipriano reference range : 1 NORMAL. The reference range was not used to interpret this result as normal/abnormal . COMPREHENSIVE METABOLIC [id number] 04:46:00 Test Item Value Reference Range Interpretation Comments SODIUM (test code = 139.0 mmol/L 133-144 N NA) POTASSIUM (test code 4.2 mmol/L 3.5-5.1 N = K) CHLORIDE (test code 104 mmol/L 95-105 N = CL) CARBON DIOXIDE (test mmol/L 21-32 code = CO2) ANION GAP (test code GAP calc 4.0-15.0 = GAP) GLUCOSE (test code = MG/DL 70-110 GLU) BLOOD UREA NITROGEN MG/DL 7-18 (test code = BUN) GLOMERULAR 104 estGFR >60 The estimated FILTRATION RATE glomerular (test code = GFR) filtration rate is computed usingpatient ra ce, age, sex, and s yokasta creatinine. If any of theneeded da ta elements are mi ssing the Laboratory can notcompute an estimation of t he glomerular filtration rate .The GFR value units = ml/min/1.73 met er squared. EstimatedGFR va lues above 60 should be interpreted as >60, not anexact number.--- DRUG DOSAGE ALERT -- - Drug dosage adjustments uti lize different calculationpara meter s. CREATININE (test 0.61 MG/DL 0.55-1.30 N Results may be code = CREAT) depressed if p atient is takingN-Acetylc ystei ne (NAC) and Metamizole (Dipyrone). TOTAL PROTEIN (test G/DL 6.4-8.2 code = PROT) ALBUMIN (test code = G/DL 3.4-5.0 ALB) ALBUMIN/GLOBULIN RATIO 1.2-2.2 RATIO (test code = A/G) CALCIUM (test code = 8.6 MG/DL 8.5-10.1 N CA) BILIRUBIN TOTAL MG/DL 0.00-1.00 (test code = BILT) BILIRUBIN DIRECT MG/DL 0.00-0.30 (test code = BILD) BILIRUBIN INDIRECT MG/DL 0.2-1.3 (test code = BILIND) SGOT/AST (test code Unit/L 15-37 = AST) SGPT/ALT (test code Unit/L 12-78 = ALT) ALKALINE PHOSPHATASE Unit/L 45-117 TOTAL (test code = ALKP) INDEX HEMOLYSIS 1 NORMAL <10 See_Comment [Automated message] (test code = MG Index/DL The system [employer] HEMINDEX) generated this result transmit cipriano reference range : 1 NORMAL. The reference range was not used to interpret this result as normal/abnormal . INDEX ICTERIC (test 1 NORMAL <2 MG See_Comment [Auto mated message] code = ICTINDEX) Index/DL The system which generated this result transmit cipriano reference range : 1 NORMAL. The reference range was not used to interpret this result as normal/abnormal . INDEX LIPEMIA (test 1 NORMAL <50 See_Comment [Automa cipriano message] code = LIPINDEX) MG Index/DL The system which generated this result transmit cipriano reference range : 1 NORMAL. The reference range was not used to interpret this result as normal/abnormal . CBC W/AUTO [id number] 04:30:00 Test Item Value Reference Range Interpretation Comments WHITE BLOOD CELL (test code = 6.3 K/mm3 4.1-12.1 N WBC) RED BLOOD CELL (test code = RBC) 4.17 M/mm3 3.8-5.5 N HEMOGLOBIN (test code = HGB) 10.7 G/DL 10.6-15.8 N HEMATOCRIT (test code = HCT) 35.6 % 31.8-47.4 N MEAN CELL VOLUME (test code = 85.4 fL 80.1-101.1 N MCV) MEAN CELL HGB (test code = MCH) 25.7 pg 25.3-35.3 N MEAN CELL HGB CONCETRATION (test 30.1 G/DL 32.7-35.1 L code = MCHC) RED CELL DISTRIBUTION WIDTH 16.5 % 12.2-16.4 H (test code = RDW) RED CELL DISTRIBUTION WIDTH 51.7 fL 36.4-46.3 H (test code = RDW-SD) PLATELET COUNT (test code = PLT) 183 K/mm3 155-337 N MEAN PLATELET VOLUME (test code 11.7 fL 6.8-11.2 H = MPV) GRANULOCYTE % (test code = GR%) 87.1 % 37.8-82.6 H IMMATURE GRANULOCYTE % (test 0.5 % 0.0-2.0 N code = IG%) LYMPHOCYTE % (test code = LY%) 9.0 % 14.1-45.4 L MONOCYTE % (test code = MO%) 3.2 % 2.5-11.7 N EOSINOPHIL % (test code = EO%) 0.0 % 0.0-6.2 N BASOPHIL % (test code = BA%) 0.2 % 0.0-2.1 N NUCLEATED RBC % (test code = 0.0 /100WBC% 0.0-1.0 N NRBC%) GRANULOCYTE # (test code = GR#) 5.51 k/mm3 2.0-13.7 N IMMATURE GRANULOCYTE # (test 0.03 K/mm3 0.00-0.03 N code = IG#) LYMPHOCYTE # (test code = LY#) 0.57 K/mm3 0.6-3.8 L MONOCYTE # (test code = MO#) 0.20 K/mm3 0.11-0.59 N EOSINOPHIL # (test code = EO#) 0.00 K/mm3 0.0-0.4 N BASOPHIL # (test code = BA#) 0.01 K/mm3 0.0-0.1 N NUCLEATED RBC # (test code = 0.00 K/mm3 0.0-0.05 N NRBC#) GLUCOSE BEDSIDE [id number] 00:31:00 Test Item Value Reference Range Interpretation Comments GLUCOSE BEDSIDE TESTING (test code 127 MG/DL 70-119 H = GLUBED) GLUCOSE BEDSIDE [id number] 18:59:00 Test Item Value Reference Range Interpretation Comments GLUCOSE BEDSIDE TESTING (test code 149 MG/DL 70-119 H = GLUBED) - XR CHEST 1 [id number] 07:03:00 [facility] M[facility]LE ALMENDAREZ : 1970 Sex: F FAX: Ruthy Boateng MD [phone] [place]: C St: [facility] FAX: Anthony Galan MD [phone] Patient Name: CAROLMARCELLE ALMENDAREZ Unit No: [id number] EXAMS: CPT CODE: [id number] XR CHEST 1 V [id number] EXAMINATION: - XR CHEST 1 V HISTORY: Respiratory failure COMPARISON: Chest x-ray performed August 04, 2020 LOCATION CODE: C3 FINDINGS: Single frontal view of the chest is submitted for evaluation. Life support apparatus is unchanged. There is continued prominence of the cardiac silhouette and central pulmonary vasculature. There is loss of definition of the left costophrenic sulcus ontoday's study which may reflect presence of a small amount of pleural fluid. Right lung is grossly clear. Mediastinal contours are unchanged. No acute bony abnormalities are identified. IMPRESSION: Likely development of small left pleural effusion since the prior study at 0703 Reported and signed by: Mar Metz MD CC: Ruthy Boateng MD;Anthony Whittaker MD Dictated Date/Time: 08/06/2020 (702)Technologist: Fanny Hoang Transcribed Date/Time: 08/06/2020 (702) By: [email or web address] Orig PrintD/T: S: 08/06/2020 (705) GALDINO Ribeiro NAME: MARCELLE MEDINA MEDICAL IMAGING PHYS: AHMRA.03 - Ruthy Boateng MD [address] [place] [address] BLVD : 1970 AGE: 50 SEX: F [place], [place] [address] LOC: B.ICU08 W PHONE #: [phone] EXAM DATE: 08/06/2020 STATUS: ADM IN FAX #: [phone] RAD NO: DC Dt: PAGE1 Signed ReportTROPONIN-I 2020-08-06 05:45:00 Test Item Value Reference Range Interpretation Comments TROPONIN-I 0.095 NG/ML 0.000-0.045 HH Critical values after the (test code = first occurrenc e are excluded TROPI) fromcall docume ntation requirements fo r this analyte due to thepatie nt diagnosis or therapy prot ocols.An elevated tropon in value alone is not sufficie nt todiagnose a myocardial in farction. Rather, the pat ient'sclinical presentation (h istory, physical exam) and ECGshould be used in conj unction with troponin in the diagnostic evaluation of s uspected myocardial infa rction. Aserial samplin g protocol is recommended to facilitate theidentificati on of temporal changes in trop onin levelscharacter istic of [place]. LIPID PROFILE (CORONARY RISK)2020-08-06 05:43:00 Test Item Value Reference Interpretation Comments Range TRIGLYCERIDES (test 188 MG/DL 0-150 H BORDERLI NE HIGH RISK code = TRIG) TRIGLYCERIDE 15 0-199 MG/DLReference intervals provided by The National CholesterolEduc ation Program Adult T reatment Panel III (NCEP -ATP III).Results ma y be depressed if geno gordon is takingN-Acetylc ysteine (NAC) and Metam izole (Dipyrone). CHOLESTEROL (test 151 MG/DL 133-200 N code = CHOL) CHOLESTEROL/HDL 2.55 RATIO See_Comment REFERENCE R WOJCIECH: RATIO (test code = MALE FEMALE CHOLHDL) 1/2 AVG RISK 3.43 3.27 AVG RISK 4.9 7 4.44 2X AV G RISK 9.55 7.05 3X AVG RISK 23.39 11.04 [Aut omated message] The sy stem which generated this result transmitted ref erence range: 0-. The reference range was not u sed to interpret this result as normal/abnormal . HDL CHOLESTEROL 59 MG/DL 40-59 N Results mayb e depressed (test code = HDL) if patient is taking Metamizole(Dipy brigette). NON-HDL CHOLESTEROL 92 mg/dL <130 Patients with CHD or CHD (test code = NHDL) risk LD L: <70 mg/dL nonHDL: <100 mg/dLPatients w ith 2+ risk factors LDL: <130 mg/dL no nHDL: <160 mg/dLPatie nts with 0-1 risk factor s LDL: <160 mg/dL nonHDL: <190 mg/dL LIPOPROTEIN LDL 54 MG/DL 0-129 N (test code = LDL) LDL/HDL (test code 0.91 Ratio See_Comment L LDL/HDL RISK = LDL/HDL) ASSESSMENT1.47 One-half averag e3.22 Average5.03 Two times average6. 14 [address] times ave rage [Automated mess age] The system which ge nerated this result tra nsmitted reference range : 1.48-3.22 Avg. The reference range was not used to interpr et this result as normal/abnormal . INDEX HEMOLYSIS 1 NORMAL <10 See_Comment [Automated message] The (test code = MG Index/DL system which ge nerated HEMINDEX) this result tra nsmitted reference range : 1 NORMAL. The ref erence range was not u sed to interpret this result as normal/abnormal . INDEX ICTERIC (test 1 NORMAL <2 See_Comment [Automa cipriano message] The code = ICTINDEX) MG Index/DL system [facility] generated this result tra nsmitted reference range : 1 NORMAL. The ref erence range was not u sed to interpret this result as normal/abnormal . INDEX LIPEMIA (test 1 NORMAL <50 See_Comment [Automa cipriano message] The code = LIPINDEX) MG Index/DL system [facility] generated this result tra nsmitted reference range : 1 NORMAL. The ref erence range was not u sed to interpret this result as normal/abnormal . LIPID PROFILE (CORONARY RISK)2020-08-06 05:39:00 Test Item Value Reference Range Interpretation Comments TRIGLYCERIDES (test MG/DL 0-150 code = TRIG) CHOLESTEROL (test MG/DL 133-200 code = CHOL) CHOLESTEROL/HDL RATIO RATIO See_Comment [Auto mated (test code = CHOLHDL) mess e] The system which generated this result transmitted reference range : 0-. The referen ce range was not u sed to interpret th is result as normal/abnormal . HDL CHOLESTEROL (test MG/DL 40-59 code = HDL) NON-HDL CHOLESTEROL mg/dL <130 (test code = NHDL) LIPOPROTEIN LDL (test MG/DL 0-129 code = LDL) LDL/HDL (test code = Ratio See_Comment [Autom ated LDL/HDL) message] The sy stem which generated this result transmitted reference range : 1.48-3.22 Avg. The reference range was not used to interpret this result as normal/abnormal . INDEX HEMOLYSIS (test 1 NORMAL <10 See_Comment [Auto mated code = HEMINDEX) MG Index/DL message] e system which generated this result transmitted reference range : 1 NORMAL. The reference range was not used to interpret this result as normal/abnormal . INDEX ICTERIC (test 1 NORMAL <2 MG See_Comment [Auto mated code = ICTINDEX) Index/DL message] e system which generated this result transmitted reference range : 1 NORMAL. The reference range was not used to interpret this result as normal/abnormal . INDEX LIPEMIA (test 1 NORMAL <50 See_Comment [Automa cipriano code = LIPINDEX) MG Index/DL message] [facility] which generated this result transmitted reference range : 1 NORMAL. The reference range was not used to interpret this result as normal/abnormal . BASIC METABOLIC [id number] 05:38:00 Test Item Value Reference Range Interpretation Comments SODIUM (test code = 137.0 mmol/L 133-144 N NA) POTASSIUM (test 4.4 mmol/L 3.5-5.1 N code = K) CHLORIDE (test code 103 mmol/L 95-105 N = CL) CARBON DIOXIDE 29 mmol/L 21-32 N (test code = CO2) ANION GAP (test 5.0 GAP calc 4.0-15.0 N code = GAP) GLUCOSE (test code 135 MG/DL 70-110 H = GLU) BLOOD UREA NITROGEN 18 MG/DL 7-18 N (test code = BUN) CREATININE (test 0.55 MG/DL 0.55-1.30 N Results may be code = CREAT) depressed if p atient is takingN-Acetylc ystei ne (NAC) and Metamizole (Dipyrone). CALCIUM (test code 8.4 MG/DL 8.5-10.1 L = CA) INDEX HEMOLYSIS 1 NORMAL <10 MG See_Comment [Automat ed message] (test code = Index/DL The system [employer]) generated this result transmit cipriano reference range : 1 NORMAL. The reference range was not used to interpret this result as normal/abnormal . INDEX ICTERIC (test 1 NORMAL <2 MG See_Comment [Auto mated message] code = ICTINDEX) Index/DL The system which generated this result transmit cipriano reference range : 1 NORMAL. The reference range was not used to interpret this result as normal/abnormal . INDEX LIPEMIA (test 1 NORMAL <50 MG See_Comment [Aut omated message] code = LIPINDEX) Index/DL The system which generated this result transmit cipriano reference range : 1 NORMAL. The reference range was not used to interpret this result as normal/abnormal . BASIC METABOLIC [id number] 05:33:00 Test Item Value Reference Range Interpretation Comments SODIUM (test code = 137.0 mmol/L 133-144 N NA) POTASSIUM (test 4.4 mmol/L 3.5-5.1 N code = K) CHLORIDE (test code 103 mmol/L 95-105 N = CL) CARBON DIOXIDE mmol/L 21-32 (test code = CO2) ANION GAP (test GAP calc 4.0-15.0 code = GAP) GLUCOSE (test code MG/DL 70-110 = GLU) BLOOD UREA NITROGEN MG/DL 7-18 (test code = BUN) CREATININE (test MG/DL 0.55-1.30 code = CREAT) CALCIUM (test code MG/DL 8.5-10.1 = CA) INDEX HEMOLYSIS 1 NORMAL <10 MG See_Comment [Automat ed message] (test code = Index/DL The system [employer]) generated this result transmit cipriano reference range : 1 NORMAL. The reference range was not used to interpret this result as normal/abnormal . INDEX ICTERIC (test 1 NORMAL <2 MG See_Comment [Auto mated message] code = ICTINDEX) Index/DL The system which generated this result transmit cipriano reference range : 1 NORMAL. The reference range was not used to interpret this result as normal/abnormal . INDEX LIPEMIA (test 1 NORMAL <50 MG See_Comment [Aut omated message] code = LIPINDEX) Index/DL The system which generated this result transmit cipriano reference range : 1 NORMAL. The reference range was not used to interpret this result as normal/abnormal . CBC W/AUTO [id number] 05:16:00 Test Item Value Reference Range Interpretation Comments WHITE BLOOD CELL (test code = 6.1 K/mm3 4.1-12.1 N WBC) RED BLOOD CELL (test code = RBC) 3.92 M/mm3 3.8-5.5 N HEMOGLOBIN (test code = HGB) 10.0 G/DL 10.6-15.8 L HEMATOCRIT (test code = HCT) 34.4 % 31.8-47.4 N MEAN CELL VOLUME (test code = 87.8 fL 80.1-101.1 N MCV) MEAN CELL HGB (test code = MCH) 25.5 pg 25.3-35.3 N MEAN CELL HGB CONCETRATION (test 29.1 G/DL 32.7-35.1 L code = MCHC) RED CELL DISTRIBUTION WIDTH 16.5 % 12.2-16.4 H (test code = RDW) RED CELL DISTRIBUTION WIDTH 52.8 fL 36.4-46.3 H (test code = RDW-SD) PLATELET COUNT (test code = PLT) 167 K/mm3 155-337 N MEAN PLATELET VOLUME (test code 11.5 fL 6.8-11.2 H = MPV) GRANULOCYTE % (test code = GR%) 83.0 % 37.8-82.6 H IMMATURE GRANULOCYTE % (test 0.7 % 0.0-2.0 N code = IG%) LYMPHOCYTE % (test code = LY%) 9.1 % 14.1-45.4 L MONOCYTE % (test code = MO%) 4.1 % 2.5-11.7 N EOSINOPHIL % (test code = EO%) 3.1 % 0.0-6.2 N BASOPHIL % (test code = BA%) 0.0 % 0.0-2.1 N NUCLEATED RBC % (test code = 0.0 /100WBC% 0.0-1.0 N NRBC%) GRANULOCYTE # (test code = GR#) 5.10 k/mm3 2.0-13.7 N IMMATURE GRANULOCYTE # (test 0.04 K/mm3 0.00-0.03 H code = IG#) LYMPHOCYTE # (test code = LY#) 0.56 K/mm3 0.6-3.8 L MONOCYTE # (test code = MO#) 0.25 K/mm3 0.11-0.59 N EOSINOPHIL # (test code = EO#) 0.19 K/mm3 0.0-0.4 N BASOPHIL # (test code = BA#) 0.00 K/mm3 0.0-0.1 N NUCLEATED RBC # (test code = 0.00 K/mm3 0.0-0.05 N NRBC#) ARTERIAL BLOOD [id number] 04:22:00 Test Item Value Reference Range Interpretation Comments ARTERIAL BLOOD GAS 7.41 pH units 7.35-7.45 N PH (test code = PHA) ARTERIAL BLOOD GAS 51 mmHg 35-45 H PCO2 (test code = PCO2A) ARTERIAL BLOOD GAS 65 mmHg 80-100 L PO2 (test code = PO2A) BICARBONATE TOTAL 32.8 mmol/L 22.0-26.0 H HCO3 (test code = HCO3) BASE EXCESS (test 8.2 mmol/L -3.0-3.0 H code = OLGA) FIO2 (test code = 60 % (calc) 21-100 N FIO2A) MODALITY (test code SIMV COMMENT DESCRIPTION = MOD) PaO2/FiO2 (test code 108.33 mm/Hg = [id number]) ABG PATIENT RESP 20 /MIN PT RespRate RATE (test code = RRPATA) ABG TIDAL VOLUME 500 ML (test code = TVA) ABG PEEP (test code 8.0 cm H20 0.0-99.9 = PEEPA) ABG PRESSURE SUPPORT 12.0 cm H20 See_Comment [Autom ated (test code = PSABG) message] The system which generated this result transmitted reference range : 0-. The referen ce range was not u sed to interpret th is result as normal/abnormal . ABG SITE (test code RT RADIAL DESCRIPTION = SITEA) ARTKIT MODIFIED DAINA'S N/A Circ.CHK POSITIVE (test code = MODALL) O2 SATURATION (test 93 % (calc) 95-100 L code = O2S/C) ARTERIAL BLOOD [id number] 17:27:00 Test Item Value Reference Range Interpretation Comments ARTERIAL BLOOD GAS 7.41 pH units 7.35-7.45 N PH (test code = PHA) ARTERIAL BLOOD GAS 53 mmHg 35-45 H PCO2 (test code = PCO2A) ARTERIAL BLOOD GAS 56 mmHg 80-100 LL ON AT PO2 (test code = 1726, B.CPS .TJK PO2A) CALLED TO HARDIK MIKE. The rep ort was confirmed b y read back priyank cols Y,N: Y. BICARBONATE TOTAL 33.6 mmol/L 22.0-26.0 H HCO3 (test code = HCO3) BASE EXCESS (test 8.9 mmol/L -3.0-3.0 H code = OLGA) FIO2 (test code = 50 % (calc) 21-100 N FIO2A) MODALITY (test code SIMV COMMENT DESCRIPTION = MOD) PaO2/FiO2 (test 112.00 mm/Hg code = [id number]) ABG PATIENT RESP 20 /MIN PT RespRate RATE (test code = RRPATA) ABG TIDAL VOLUME 500 ML (test code = TVA) ABG PEEP (test code 8 cm H20 0.0-99.9 = PEEPA) ABG PRESSURE 12.0 cm H20 See_Comment [Automated SUPPORT (test code message] The system = PSAB[employer]) which generated this result transmitted reference range : 0-. The referen ce range was not u sed to interpret th is result as normal/abnormal . ABG SITE (test code RT RADIAL ARTKIT DESCRIPTION = SITEA) MODIFIED DAINA'S POSITIVE POSITIVE (test code = Circ.CHK MODALL) O2 SATURATION (test 89 % (calc) 95-100 L code = O2S/C) PT AND [id number] 13:39:00 Test Item Value Reference Interpretation Comments Range PT PATIENT (test 14.9 SECONDS 9.4-12.5 H code = PTP) INTERNATIONAL 1.30 INR 0.88-1.13 H NORMAL RATIO (test Unit --------- code = INR) ---------Therap eutic range for INR i s dependent upon the situation.2.0-3 .0 Prophylaxis / v enous thromboembolism , Treatment of DVT, Acute myocardia l infarction stro ke prevention, Systemic emboli sm prevention in fibrillation3.0 -4.5 AMI recurrence prev ention, Systemic emboli sm prevention in p rosthetic heart 3.0-5.4 A [place] mortality reduc tion THROMBOPLASTIN TIME 26.4 SECONDS 24-37.7 N THERAPEU TIC RANGE FOR PARTIAL (test code UNFRACTIO NATED HEPARIN = = PTT) 50.5-83.6 SEC T his test is not recommen ded to monitor low molecularweight heparin or danaparoid. Order LMWH test COLLECTION THROUGH LINES THAT HAVE BEEN PREVIOUSLY FLUS HEDWITH HEPARIN SHOULD BE AVOIDED DUE TO POSSIBLE HEPARINCONTAMIN ATION Is this a LINE draw? NANTICOAGULANT THERAPY [Y,N]: UNKANTICOAGULANT THERAPY [Y,N]: NOUA RFLX MICR CULT IF [id number] 06:38:00 Test Item Value Reference Range Interpretation Comments UA COLOR (test code = YELLOW DESCRIPT YELLOW COLU) UA APPEARANCE (test CLEAR DESCRIPT CLEAR code = APPU) UA GLUCOSE DIPSTICK NORMAL (0) See_Comment [Automa cipriano (test code = DGLUU) mg/dL message] The system which generated this result transmit cipriano reference range : 0 (NORMAL). The reference range was not used to interpret this result as normal/abnormal . UA BILIRUBIN DIPSTICK NEGATIVE (0.0) See_Comment [Au tomated (test code = BILU) mg/dL message] The system which generated this result transmit cipriano reference range : (NEG) 0. The reference range was not used to interpret this result as normal/abnormal . UA KETONE DIPSTICK 10 (1+) mg/dL See_Comment A [Automa cipriano (test code = KETU) message] The system which generated this result transmit cipriano reference range : (NEG) 0. The reference range was not used to interpret this result as normal/abnormal . UA SPECIFIC GRAVITY 1.029 SG 1.001-1.035 (test code = SGU) UA BLOOD DIPSTICK NEGATIVE (0.00) See_Comment [Autom ated (test code = LUKASZ) mg/dL message] T he system which generated this result transmit cipriano reference range : 0 (NEG). The reference range was not used to interpret this result as normal/abnormal . UA PH DIPSTICK (test 6.0 pH UNITS 4.6-8.0 code = GWEN) UA PROTEIN DIPSTICK 30 (1+) mg/dL See_Comment A [Autom ated (test code = PROU) message] The system which generated this result transmit cipriano reference range : <30 (1+). The reference range was not used to interpret this result as normal/abnormal . UA UROBILINIOGEN NORMAL (0) See_Comment [Automated DIPSTICK (test code = mg/Dl messag e] The URO) system which generated this result transmit cipriano reference range : <2.0 (1+). The reference range was not used to interpret this result as normal/abnormal . UA NITRITE DIPSTICK NEGATIVE (0) NEG (test code = RUTH ANN) SCREEN UA LEUKOCYTE ESTERASE NEGATIVE (0) See_Comment [Auto mated DIPSTICK (test code = Leuk/mcL messag e] The LEUU) system which generated this result transmit cipriano reference range : (NEG) 0. The reference range was not used to interpret this result as normal/abnormal . UA COMMENT (test code [facility] SPEC SpecComment = COMU) NoteSPEC UA WBC (test code = 0-3 #WBC/HPF 0-3 WBCU) UA RBC (test code = 0-3 #RBC/HPF 0-3 RBCU) UA BACTERIA (test FEW >1 /HPF NONE-FEW code = BACU) UA SQUAMOUS CELLS RARE >0 /UL NONE-SQepi (test code = SQU) UA CULTURE NEEDED? Crit NOTmet Cult byWBC (test code = UACULT) CULT-N/A Criteria Indication for culture: RiskForSepsis-no oth srcComments to [facility]: [facility] HEPATITIS B [id number] 04:49:00 Test Item Value Reference Range Interpretation Comments AB HEPATITIS B < 3.10 mIU/ML 0.00-8.00 N HBSAB IMMUNI TY SURFACE (test code INTERPRET ATION <8.00 = HBSAB) mIU/ML NON-Reactive 8.00-12.00 mIU/ ML [place] Immunity Interpretation Range>12.00 mIU/ML Reactive /Immune Values of 10 mIU/ML or greater are considered reac tive (protective) in accordance with the (CDC) Centers f or Disease Control guidelines. The accepted criter ion for immunity to HB V is anti-HBS activi ty >=10 mIU/ML as defi emily by (WHO) World Hea lth Organization. HBSAG NEUTRALIZATION [id number] 04:49:00 Test Item Value Reference Range Interpretation Comments AG HEPATITIS B SURFACE NEG-NONREAC SCREEN Nonreactive (test code = HBSAG) AB HEPATITIS B CORE [id number] 04:49:00 Test Item Value Reference Range Interpretation Comments AB HEPATITIS B CORE IGM NonReactive SCREEN Nonreactive (test code = HBCMAB) AB HEPATITIS [id number] 04:49:00 Test Item Value Reference Range Interpretation Comments AB HEPATITIS C (test code = HCVAB) NR SCREEN Nonreactive COMPREHENSIVE METABOLIC [id number] 04:41:00 Test Item Value Reference Range Interpretation Comments SODIUM (test code = 137.0 mmol/L 133-144 N NA) POTASSIUM (test code 4.8 mmol/L 3.5-5.1 N = K) CHLORIDE (test code 103 mmol/L 95-105 N = CL) CARBON DIOXIDE (test 29 mmol/L 21-32 N code = CO2) ANION GAP (test code 5.0 GAP calc 4.0-15.0 N = GAP) GLUCOSE (test code = 88 MG/DL 70-110 N GLU) BLOOD UREA NITROGEN 23 MG/DL 7-18 H (test code = BUN) GLOMERULAR 90 estGFR >60 The estimated FILTRATION RATE glomerular (test code = GFR) filtration rate is computed usingpatient ra ce, age, sex, and s yokasta creatinine. If any of theneeded da ta elements are mi ssing the Laboratory can notcompute an estimation of t he glomerular filtration rate .The GFR value units = ml/min/1.73 met er squared. EstimatedGFR va lues above 60 should be interpreted as >60, not anexact number.--- DRUG DOSAGE ALERT -- - Drug dosage adjustments uti lize different calculationpara meter s. CREATININE (test 0.69 MG/DL 0.55-1.30 N Results may be code = CREAT) depressed if p atient is takingN-Acetylc ystei ne (NAC) and Metamizole (Dipyrone). TOTAL PROTEIN (test 6.4 G/DL 6.4-8.2 N code = PROT) ALBUMIN (test code = 3.0 G/DL 3.4-5.0 L ALB) ALBUMIN/GLOBULIN 0.9 RATIO 1.2-2.2 L RATIO (test code = A/G) CALCIUM (test code = 8.4 MG/DL 8.5-10.1 L CA) BILIRUBIN TOTAL 0.17 MG/DL 0.00-1.00 N (test code = BILT) BILIRUBIN DIRECT 0.13 MG/DL 0.00-0.30 N (test code = BILD) BILIRUBIN INDIRECT 0.04 MG/DL 0.2-1.3 L (test code = BILIND) SGOT/AST (test code 3866 Unit/L 15-37 H REPORTED RESULTS = AST) VERIFIED WITH MANUAL-DILUTION PROCEDURES. SGPT/ALT (test code 1741 Unit/L 12-78 H REPORTED RESULTS = ALT) VERIFIED WITH AUTO-DILUTION PROCEDURES. ALKALINE PHOSPHATASE 156 Unit/L 45-117 H TOTAL (test code = ALKP) INDEX HEMOLYSIS 3 SMALL 25-50 See_Comment [Automated message] (test code = MG Index/DL The system [employer] HEMINDEX) generated this result transmit cipriano reference range : 1 NORMAL. The reference range was not used to interpret this result as normal/abnormal . INDEX ICTERIC (test 1 NORMAL <2 MG See_Comment [Auto mated message] code = ICTINDEX) Index/DL The system which generated this result transmit cipriano reference range : 1 NORMAL. The reference range was not used to interpret this result as normal/abnormal . INDEX LIPEMIA (test 1 NORMAL <50 See_Comment [Automa cipirano message] code = LIPINDEX) MG Index/DL The system which generated this result transmit cipriano reference range : 1 NORMAL. The reference range was not used to interpret this result as normal/abnormal . ARTERIAL BLOOD [id number] 04:37:00 Test Item Value Reference Range Interpretation Comments ARTERIAL BLOOD GAS PH (test 7.45 pH units 7.35-7.45 N code = PHA) ARTERIAL BLOOD GAS PCO2 47 mmHg 35-45 H (test code = PCO2A) ARTERIAL BLOOD GAS PO2 100 mmHg 80-100 N (test code = PO2A) BICARBONATE TOTAL HCO3 32.6 mmol/L 22.0-26.0 H (test code = HCO3) BASE EXCESS (test code = 8.6 mmol/L -3.0-3.0 H OLGA) FIO2 (test code = FIO2A) 70 % (calc) 21-100 N MODALITY (test code = MOD) AC COMMENT DESCRIPTION PaO2/FiO2 (test code = 142.85 mm/Hg [id number]) ABG PATIENT RESP RATE (test 20 /MIN PT RespRate code = RRPATA) ABG TIDAL VOLUME (test code 500 ML = TVA) ABG PEEP (test code = 7 cm H20 0.0-99.9 PEEPA) ABG SITE (test code = RT RADIAL ARTKIT DESCRIPTION SITEA) MODIFIED DAINA'S (test code POSITIVE Circ.CHK POSITIVE = MODALL) O2 SATURATION (test code = 99 % (calc) 95-100 N O2S/C) AB HEPATITIS B [id number] 04:26:00 Test Item Value Reference Range Interpretation Comments AB HEPATITIS B < 3.10 mIU/ML 0.00-8.00 N HBSAB IMMUNI TY SURFACE (test code INTERPRET ATION <8.00 = HBSAB) mIU/ML NON-Reactive 8.00-12.00 mIU/ ML [place] Immunity Interpretation Range>12.00 mIU/ML Reactive /Immune Values of 10 mIU/ML or greater are considered reac tive (protective) in accordance with the (CDC) Centers f or Disease Control guidelines. The accepted criter ion for immunity to HB V is anti-HBS activi ty >=10 mIU/ML as defi emily by (WHO) World Hea lth Organization. HBSAG NEUTRALIZATION [id number] 04:26:00 Test Item Value Reference Range Interpretation Comments AG HEPATITIS B SURFACE NEG-NONREAC SCREEN Nonreactive (test code = HBSAG) AB HEPATITIS B CORE [id number] 04:26:00 Test Item Value Reference Range Interpretation Comments AB HEPATITIS B CORE IGM (test code = SCREEN Nonreactive HBCMAB) AB HEPATITIS [id number] 04:26:00 Test Item Value Reference Range Interpretation Comments AB HEPATITIS C (test code = HCVAB) NR SCREEN Nonreactive COMPREHENSIVE METABOLIC [id number] 04:19:00 Test Item Value Reference Range Interpretation Comments SODIUM (test code = 137.0 mmol/L 133-144 N NA) POTASSIUM (test code 4.8 mmol/L 3.5-5.1 N = K) CHLORIDE (test code 103 mmol/L 95-105 N = CL) CARBON DIOXIDE (test 29 mmol/L 21-32 N code = CO2) ANION GAP (test code 5.0 GAP calc 4.0-15.0 N = GAP) GLUCOSE (test code = 88 MG/DL 70-110 N GLU) BLOOD UREA NITROGEN 23 MG/DL 7-18 H (test code = BUN) GLOMERULAR 90 estGFR >60 The estimated FILTRATION RATE glomerular (test code = GFR) filtration rate is computed usingpatient ra ce, age, sex, and s yokasta creatinine. If any of theneeded da ta elements are mi ssing the Laboratory can notcompute an estimation of t he glomerular filtration rate .The GFR value units = ml/min/1.73 met er squared. EstimatedGFR va lues above 60 should be interpreted as >60, not anexact number.--- DRUG DOSAGE ALERT -- - Drug dosage adjustments uti lize different calculationpara meter s. CREATININE (test 0.69 MG/DL 0.55-1.30 N Results may be code = CREAT) depressed if p atient is takingN-Acetylc ystei ne (NAC) and Metamizole (Dipyrone). TOTAL PROTEIN (test 6.4 G/DL 6.4-8.2 N code = PROT) ALBUMIN (test code = 3.0 G/DL 3.4-5.0 L ALB) ALBUMIN/GLOBULIN 0.9 RATIO 1.2-2.2 L RATIO (test code = A/G) CALCIUM (test code = 8.4 MG/DL 8.5-10.1 L CA) BILIRUBIN TOTAL 0.17 MG/DL 0.00-1.00 N (test code = BILT) BILIRUBIN DIRECT 0.13 MG/DL 0.00-0.30 N (test code = BILD) BILIRUBIN INDIRECT 0.04 MG/DL 0.2-1.3 L (test code = BILIND) SGOT/AST (test code Unit/L 15-37 = AST) SGPT/ALT (test code 1741 Unit/L 12-78 H REPORTED RESULTS = ALT) VERIFIED WITH AUTO-DILUTION PROCEDURES. ALKALINE PHOSPHATASE 156 Unit/L 45-117 H TOTAL (test code = ALKP) INDEX HEMOLYSIS 3 SMALL 25-50 See_Comment [Automated message] (test code = MG Index/DL The system [employer] HEMINDEX) generated this result transmit cipriano reference range : 1 NORMAL. The reference range was not used to interpret this result as normal/abnormal . INDEX ICTERIC (test 1 NORMAL <2 MG See_Comment [Auto mated message] code = ICTINDEX) Index/DL The system which generated this result transmit cipriano reference range : 1 NORMAL. The reference range was not used to interpret this result as normal/abnormal . INDEX LIPEMIA (test 1 NORMAL <50 See_Comment [Automa cipriano message] code = LIPINDEX) MG Index/DL The system which generated this result transmit cipriano reference range : 1 NORMAL. The reference range was not used to interpret this result as normal/abnormal . COMPREHENSIVE METABOLIC [id number] 04:10:00 Test Item Value Reference Range Interpretation Comments SODIUM (test code = 137.0 mmol/L 133-144 N NA) POTASSIUM (test code 4.8 mmol/L 3.5-5.1 N = K) CHLORIDE (test code 103 mmol/L 95-105 N = CL) CARBON DIOXIDE (test 29 mmol/L 21-32 N code = CO2) ANION GAP (test code 5.0 GAP calc 4.0-15.0 N = GAP) GLUCOSE (test code = 88 MG/DL 70-110 N GLU) BLOOD UREA NITROGEN 23 MG/DL 7-18 H (test code = BUN) GLOMERULAR 90 estGFR >60 The estimated FILTRATION RATE glomerular (test code = GFR) filtration rate is computed usingpatient ra ce, age, sex, and s yokasta creatinine. If any of theneeded da ta elements are mi ssing the Laboratory can notcompute an estimation of t he glomerular filtration rate .The GFR value units = ml/min/1.73 met er squared. EstimatedGFR va lues above 60 should be interpreted as >60, not anexact number.--- DRUG DOSAGE ALERT -- - Drug dosage adjustments uti lize different calculationpara meter s. CREATININE (test 0.69 MG/DL 0.55-1.30 N Results may be code = CREAT) depressed if p atient is takingN-Acetylc ystei ne (NAC) and Metamizole (Dipyrone). TOTAL PROTEIN (test G/DL 6.4-8.2 code = PROT) ALBUMIN (test code = 3.0 G/DL 3.4-5.0 L ALB) ALBUMIN/GLOBULIN RATIO 1.2-2.2 RATIO (test code = A/G) CALCIUM (test code = 8.4 MG/DL 8.5-10.1 L CA) BILIRUBIN TOTAL MG/DL 0.00-1.00 (test code = BILT) BILIRUBIN DIRECT 0.13 MG/DL 0.00-0.30 N (test code = BILD) BILIRUBIN INDIRECT MG/DL 0.2-1.3 (test code = BILIND) SGOT/AST (test code Unit/L 15-37 = AST) SGPT/ALT (test code Unit/L 12-78 = ALT) ALKALINE PHOSPHATASE Unit/L 45-117 TOTAL (test code = ALKP) INDEX HEMOLYSIS 3 SMALL 25-50 See_Comment [Automated message] (test code = MG Index/DL The system [employer] HEMINDEX) generated this result transmit cipriano reference range : 1 NORMAL. The reference range was not used to interpret this result as normal/abnormal . INDEX ICTERIC (test 1 NORMAL <2 MG See_Comment [Auto mated message] code = ICTINDEX) Index/DL The system which generated this result transmit cipriano reference range : 1 NORMAL. The reference range was not used to interpret this result as normal/abnormal . INDEX LIPEMIA (test 1 NORMAL <50 See_Comment [Automa cipriano message] code = LIPINDEX) MG Index/DL The system which generated this result transmit cipriano reference range : 1 NORMAL. The reference range was not used to interpret this result as normal/abnormal . [id number] 04:01:00 Test Item Value Reference Range Interpretation Comments TROPONIN-I 0.346 NG/ML 0.000-0.045 HH Critical values after the (test code = first occurrenc e are excluded TROPI) fromcall docume ntation requirements fo r this analyte due to thepatie nt diagnosis or therapy prot ocols.An elevated tropon in value alone is not sufficie nt todiagnose a myocardial in farction. Rather, the pat ient'sclinical presentation (h istory, physical exam) and ECGshould be used in conj unction with troponin in the diagnostic evaluation of s uspected myocardial infa rction. Aserial samplin g protocol is recommended to facilitate theidentificati on of temporal changes in trop onin levelscharacter istic of [place]. - ABDOMEN [id number] 04:00:00 [facility] : 1970 Sex: F Patient Name: MARCELLE MEDINA Unit No: [id number] EXAMS: CPT CODE: [id number] ABDOMEN LTD [id number] HISTORY: Hepatitis COMPARISON: None FINDINGS: The gallbladder is normal appearance with no cholelithiasis. No significant gallbladder wall thickening or pericholecystic fluid. The common bile duct is within normal limits measuring 3 mm. The liver is homogeneous in appearance and no focal liver lesion identified. Doppler interrogation of the portal vein demonstrates normal flow. The visualized right kidney demonstrates no significant abnormalities. The pancrease is partially obscured without significant abnormality. IMPRESSION: 1. Fatty infiltration of the liver. 2. No gallstones identified. No biliary dilatation. at 0400 Reported and signed by: Jerrell Thompson M.D. CC: Anthony Gustafson Technologist: Savannah Graham RDMS Trnscrbd D/ (399) [id number] Probe: Orig Print D/T: S: 08/05/2020 (0403) Probe: GALDINO Ribeiro NAME: RUTHSALLYSTACYYvonneMARCELLE [facility] PHYS: Anthony Pham MD [address] [place] [address] BLVD : 1970 AGE: 50 SEX: F QUINTIN, CASEY [address] LOC: B.[id number] W PHONE #: [phone] EXAM DATE: 08/05/2020 STATUS:ADM IN FAX #: [phone] RAD NO: Page 1 Signed ReportCBC W/AUTO [id number] 03:41:00 Test Item Value Reference Range Interpretation Comments WHITE BLOOD CELL (test code = 9.5 K/mm3 4.1-12.1 N WBC) RED BLOOD CELL (test code = RBC) 4.15 M/mm3 3.8-5.5 N HEMOGLOBIN (test code = HGB) 10.8 G/DL 10.6-15.8 N HEMATOCRIT (test code = HCT) 37.5 % 31.8-47.4 N MEAN CELL VOLUME (test code = 90.4 fL 80.1-101.1 N MCV) MEAN CELL HGB (test code = MCH) 26.0 pg 25.3-35.3 N MEAN CELL HGB CONCETRATION (test 28.8 G/DL 32.7-35.1 L code = MCHC) RED CELL DISTRIBUTION WIDTH 16.7 % 12.2-16.4 H (test code = RDW) RED CELL DISTRIBUTION WIDTH 54.8 fL 36.4-46.3 H (test code = RDW-SD) PLATELET COUNT (test code = PLT) 173 K/mm3 155-337 N MEAN PLATELET VOLUME (test code 11.0 fL 6.8-11.2 N = MPV) GRANULOCYTE % (test code = GR%) 76.4 % 37.8-82.6 N IMMATURE GRANULOCYTE % (test 0.4 % 0.0-2.0 N code = IG%) LYMPHOCYTE % (test code = LY%) 17.0 % 14.1-45.4 N MONOCYTE % (test code = MO%) 6.0 % 2.5-11.7 N EOSINOPHIL % (test code = EO%) 0.1 % 0.0-6.2 N BASOPHIL % (test code = BA%) 0.1 % 0.0-2.1 N NUCLEATED RBC % (test code = 0.0 /100WBC% 0.0-1.0 N NRBC%) GRANULOCYTE # (test code = GR#) 7.27 k/mm3 2.0-13.7 N IMMATURE GRANULOCYTE # (test 0.04 K/mm3 0.00-0.03 H code = IG#) LYMPHOCYTE # (test code = LY#) 1.62 K/mm3 0.6-3.8 N MONOCYTE # (test code = MO#) 0.57 K/mm3 0.11-0.59 N EOSINOPHIL # (test code = EO#) 0.01 K/mm3 0.0-0.4 N BASOPHIL # (test code = BA#) 0.01 K/mm3 0.0-0.1 N NUCLEATED RBC # (test code = 0.00 K/mm3 0.0-0.05 N NRBC#) COMPREHENSIVE METABOLIC [id number] 00:13:00 Test Item Value Reference Range Interpretation Comments SODIUM (test code = 137.0 mmol/L 133-144 N NA) POTASSIUM (test code 4.8 mmol/L 3.5-5.1 N = K) CHLORIDE (test code 104 mmol/L 95-105 N = CL) CARBON DIOXIDE (test 32 mmol/L 21-32 N code = CO2) ANION GAP (test code 1.0 GAP calc 4.0-15.0 L = GAP) GLUCOSE (test code = 87 MG/DL 70-110 N GLU) BLOOD UREA NITROGEN 24 MG/DL 7-18 H (test code = BUN) GLOMERULAR 90 estGFR >60 The estimated FILTRATION RATE glomerular (test code = GFR) filtration rate is computed usingpatient ra ce, age, sex, and s yokasta creatinine. If any of theneeded da ta elements are mi ssing the Laboratory can notcompute an estimation of t he glomerular filtration rate .The GFR value units = ml/min/1.73 met er squared. EstimatedGFR va lues above 60 should be interpreted as >60, not anexact number.--- DRUG DOSAGE ALERT -- - Drug dosage adjustments uti lize different calculationpara meter s. CREATININE (test 0.69 MG/DL 0.55-1.30 N Results may be code = CREAT) depressed if p atient is takingN-Acetylc ystei ne (NAC) and Metamizole (Dipyrone). TOTAL PROTEIN (test 6.4 G/DL 6.4-8.2 N code = PROT) ALBUMIN (test code = 3.1 G/DL 3.4-5.0 L ALB) ALBUMIN/GLOBULIN 0.9 RATIO 1.2-2.2 L RATIO (test code = A/G) CALCIUM (test code = 8.1 MG/DL 8.5-10.1 L CA) BILIRUBIN TOTAL 0.31 MG/DL 0.00-1.00 N (test code = BILT) BILIRUBIN DIRECT 0.11 MG/DL 0.00-0.30 N (test code = BILD) BILIRUBIN INDIRECT 0.20 MG/DL 0.2-1.3 N (test code = BILIND) SGOT/AST (test code 3943 Unit/L 15-37 H REPORTED RESULTS = AST) VERIFIED WITH MANUAL-DILUTION PROCEDURES. SGPT/ALT (test code 1604 Unit/L 12-78 H REPORTED RESULTS = ALT) VERIFIED WITH AUTO-DILUTION PROCEDURES. ALKALINE PHOSPHATASE 154 Unit/L 45-117 H TOTAL (test code = ALKP) INDEX HEMOLYSIS 1 NORMAL <10 See_Comment [Automated message] (test code = MG Index/DL The system [employer] HEMINDEX) generated this result transmit cipriano reference range : 1 NORMAL. The reference range was not used to interpret this result as normal/abnormal . INDEX ICTERIC (test 1 NORMAL <2 MG See_Comment [Auto mated message] code = ICTINDEX) Index/DL The system which generated this result transmit cipriano reference range : 1 NORMAL. The reference range was not used to interpret this result as normal/abnormal . INDEX LIPEMIA (test 1 NORMAL <50 See_Comment [[employer] c[employer]riano message] code = LIPINDEX) MG Index/DL The system which generated this result transmit cipriano reference range : 1 NORMAL. The reference range was not used to interpret this result as normal/abnormal . [id number] 00:13:00 Test Item Value Reference Range Interpretation Comments PHOSPHOROUS (test code = PHOS) 3.8 MG/DL 2.5-4.9 N [id number] 00:13:00 Test Item Value Reference Range Interpretation Comments MAGNESIUM (test code = MAG) 2.5 MG/DL 1.6-2.6 N [id number] 00:13:00 Test Item Value Reference Range Interpretation Comments TROPONIN-I 0.441 NG/ML 0.000-0.045 ON 08/04/20 AT 2356, B.LAB.AR (test code = CALLED TO HARDIK GONZALEZ TROPI) VENCES . Th e report was confirmed by re ad back protocols Y,N:Y . Critical values after t he first occurrence are excluded.An elevated tropon in value alone is not sufficie nt todiagnose a myocardial in farction. Rather, the pat ient'sclinical presentation (h istory, physical exam) and ECGshould be used in conj unction with troponin in the diagnostic evaluation of s uspected myocardial infa rction. Aserial samplin g protocol is recommended to facilitate theidentificati on of temporal changes in trop onin levelscharacter istic of [place]. [id number] 00:00:00 Test Item Value Reference Range Interpretation Comments MAGNESIUM (test code = MAG) 2.5 MG/DL 1.6-2.6 N [id number] 00:00:00 Test Item Value Reference Range Interpretation Comments TROPONIN-I 0.441 NG/ML 0.000-0.045 ON 08/04/20 AT 2356, B.LAB.AR (test code = CALLED TO HARDIK GONZALEZ TROPI) VENCES . Th e report was confirmed by re ad back protocols Y,N:Y . Critical values after t he first occurrence are excluded.An elevated tropon in value alone is not sufficie nt todiagnose a myocardial in farction. Rather, the pat ient'sclinical presentation (h istory, physical exam) and ECGshould be used in conj unction with troponin in the diagnostic evaluation of s uspected myocardial infa rction. Aserial samplin g protocol is recommended to facilitate theidentificati on of temporal changes in trop onin levelscharacter istic of [place]. COMPREHENSIVE METABOLIC [id number] 00:00:00 Test Item Value Reference Range Interpretation Comments SODIUM (test code = 137.0 mmol/L 133-144 N NA) POTASSIUM (test code 4.8 mmol/L 3.5-5.1 N = K) CHLORIDE (test code 104 mmol/L 95-105 N = CL) CARBON DIOXIDE (test 32 mmol/L 21-32 N code = CO2) ANION GAP (test code 1.0 GAP calc 4.0-15.0 L = GAP) GLUCOSE (test code = 87 MG/DL 70-110 N GLU) BLOOD UREA NITROGEN 24 MG/DL 7-18 H (test code = BUN) GLOMERULAR 90 estGFR >60 The estimated FILTRATION RATE glomerular (test code = GFR) filtration rate is computed usingpatient ra ce, age, sex, and s yokasta creatinine. If any of theneeded da ta elements are mi ssing the Laboratory can notcompute an estimation of t he glomerular filtration rate .The GFR value units = ml/min/1.73 met er squared. EstimatedGFR va lues above 60 should be interpreted as >60, not anexact number.--- DRUG DOSAGE ALERT -- - Drug dosage adjustments uti lize different calculationpara meter s. CREATININE (test 0.69 MG/DL 0.55-1.30 N Results may be code = CREAT) depressed if p atient is takingN-Acetylc ystei ne (NAC) and Metamizole (Dipyrone). TOTAL PROTEIN (test 6.4 G/DL 6.4-8.2 N code = PROT) ALBUMIN (test code = 3.1 G/DL 3.4-5.0 L ALB) ALBUMIN/GLOBULIN 0.9 RATIO 1.2-2.2 L RATIO (test code = A/G) CALCIUM (test code = 8.1 MG/DL 8.5-10.1 L CA) BILIRUBIN TOTAL 0.31 MG/DL 0.00-1.00 N (test code = BILT) BILIRUBIN DIRECT 0.11 MG/DL 0.00-0.30 N (test code = BILD) BILIRUBIN INDIRECT 0.20 MG/DL 0.2-1.3 N (test code = BILIND) SGOT/AST (test code Unit/L 15-37 = AST) SGPT/ALT (test code 1604 Unit/L 12-78 H REPORTED RESULTS = ALT) VERIFIED WITH AUTO-DILUTION PROCEDURES. ALKALINE PHOSPHATASE 154 Unit/L 45-117 H TOTAL (test code = ALKP) INDEX HEMOLYSIS 1 NORMAL <10 See_Comment [Automated message] (test code = MG Index/DL The system [employer] HEMINDEX) generated this result transmit cipriano reference range : 1 NORMAL. The reference range was not used to interpret this result as normal/abnormal . INDEX ICTERIC (test 1 NORMAL <2 MG See_Comment [Auto mated message] code = ICTINDEX) Index/DL The system which generated this result transmit cipriano reference range : 1 NORMAL. The reference range was not used to interpret this result as normal/abnormal . INDEX LIPEMIA (test 1 NORMAL <50 See_Comment [Automa cipriano message] code = LIPINDEX) MG Index/DL The system which generated this result transmit cipriano reference range : 1 NORMAL. The reference range was not used to interpret this result as normal/abnormal . [id number] 00:00:00 Test Item Value Reference Range Interpretation Comments PHOSPHOROUS (test code = PHOS) 3.8 MG/DL 2.5-4.9 N B-TYPE NATRIURETIC [id number] 23:59:00 Test Item Value Reference Range Interpretation Comments B-TYPE NATRIURETIC PEPTIDE (test 163.50 PG/ML 0.00-100.00 H code = BNP) COMPREHENSIVE METABOLIC [id number] 23:57:00 Test Item Value Reference Range Interpretation Comments SODIUM (test code = 137.0 mmol/L 133-144 N NA) POTASSIUM (test code 4.8 mmol/L 3.5-5.1 N = K) CHLORIDE (test code 104 mmol/L 95-105 N = CL) CARBON DIOXIDE (test 32 mmol/L 21-32 N code = CO2) ANION GAP (test code 1.0 GAP calc 4.0-15.0 L = GAP) GLUCOSE (test code = 87 MG/DL 70-110 N GLU) BLOOD UREA NITROGEN 24 MG/DL 7-18 H (test code = BUN) GLOMERULAR 90 estGFR >60 The estimated FILTRATION RATE glomerular (test code = GFR) filtration rate is computed usingpatient ra ce, age, sex, and s yokasta creatinine. If any of theneeded da ta elements are mi ssing the Laboratory can notcompute an estimation of t he glomerular filtration rate .The GFR value units = ml/min/1.73 met er squared. EstimatedGFR va lues above 60 should be interpreted as >60, not anexact number.--- DRUG DOSAGE ALERT -- - Drug dosage adjustments uti lize different calculationpara meter s. CREATININE (test 0.69 MG/DL 0.55-1.30 N Results may be code = CREAT) depressed if p atient is takingN-Acetylc ystei ne (NAC) and Metamizole (Dipyrone). TOTAL PROTEIN (test 6.4 G/DL 6.4-8.2 N code = PROT) ALBUMIN (test code = 3.1 G/DL 3.4-5.0 L ALB) ALBUMIN/GLOBULIN 0.9 RATIO 1.2-2.2 L RATIO (test code = A/G) CALCIUM (test code = 8.1 MG/DL 8.5-10.1 L CA) BILIRUBIN TOTAL 0.31 MG/DL 0.00-1.00 N (test code = BILT) BILIRUBIN DIRECT 0.11 MG/DL 0.00-0.30 N (test code = BILD) BILIRUBIN INDIRECT 0.20 MG/DL 0.2-1.3 N (test code = BILIND) SGOT/AST (test code Unit/L 15-37 = AST) SGPT/ALT (test code Unit/L 12-78 = ALT) ALKALINE PHOSPHATASE 154 Unit/L 45-117 H TOTAL (test code = ALKP) INDEX HEMOLYSIS 1 NORMAL <10 See_Comment [Automated message] (test code = MG Index/DL The system whic h HEMINDEX) generated this result transmit cipriano reference range : 1 NORMAL. The reference range was not used to interpret this result as normal/abnormal . INDEX ICTERIC (test 1 NORMAL <2 MG See_Comment [Auto mated message] code = ICTINDEX) Index/DL The system which generated this result transmit cipriano reference range : 1 NORMAL. The reference range was not used to interpret this result as normal/abnormal . INDEX LIPEMIA (test 1 NORMAL <50 See_Comment [Automa cipriano message] code = LIPINDEX) MG Index/DL The system which generated this result transmit cipriano reference range : 1 NORMAL. The reference range was not used to interpret this result as normal/abnormal . [id number] 23:57:00 Test Item Value Reference Range Interpretation Comments PHOSPHOROUS (test code = PHOS) 3.8 MG/DL 2.5-4.9 N [id number] 23:57:00 Test Item Value Reference Range Interpretation Comments MAGNESIUM (test code = MAG) 2.5 MG/DL 1.6-2.6 N [id number] 23:57:00 Test Item Value Reference Range Interpretation Comments TROPONIN-I 0.441 NG/ML 0.000-0.045 ON 08/04/20 AT 2356, B.LAB.AR (test code = CALLED TO HARDIK VENCES . Th e report was confirmed by re ad back protocols Y,N:Y . Critical values after t he first occurrence are excluded.An elevated tropon in value alone is not sufficie nt todiagnose a myocardial in farction. Rather, the pat ient'sclinical presentation (h istory, physical exam) and ECGshould be used in conj unction with troponin in the diagnostic evaluation of s uspected myocardial infa rction. Aserial samplin g protocol is recommended to facilitate theidentificati on of temporal changes in trop onin levelscharacter istic of [place]. VENOUS BLOOD GAS [id number] 23:01:00 Test Item Value Reference Range Interpretation Comments VENOUS BLOOD GAS PH (test code 7.30 pH units 7.32-7.42 L = PHV) VENOUS BLOOD GAS [id number] 23:01:00 Test Item Value Reference Range Interpretation Comments VENOUS BLOOD GAS PCO2 (test code = 69 mmHg 41-51 H PCO2V) VENOUS BLOOD GAS [id number] 23:01:00 Test Item Value Reference Range Interpretation Comments VENOUS BLOOD GAS PO2 (test code = 40 mmHg 25-40 N PO2V) VBG [id number] 23:01:00 Test Item Value Reference Range Interpretation Comments VBG HCO3 (test code = HCO3V) 33.9 mmol/L 24-28 H VENOUS BLOOD GAS [id number] 23:01:00 Test Item Value Reference Range Interpretation Comments VENOUS BLOOD GAS SITE (test code Venous Site DESCRIPTION = SITEV) - XR CHEST 1 [id number] 22:33:00 [facility] : 1970 Sex: F FAX: Chuckie Cristobal MD [phone] [place]: E St: REG Patient Name: MARCELLE MEDINA Unit No: [id number] EXAMS: CPT CODE: [id number] XR CHEST 1 V 20502 EXAM: - XR CHEST 1 V COMPARISON: None LOCATION: H57 HISTORY: 50 years-old Female with ett TECHNIQUE: Single AP view of the chest. FINDINGS: Endotracheal tube terminates 5.7 cm above the geovanny. Esophagogastric tube proceeds intothe stomach and beyond the aplnz-qk-jgwb. There is cardiomegaly. The lungs are well aerated. No large pneumothorax or pleural effusion. Osseous structures and soft tissues demonstrate no acute findings. The visualized upper abdomen is unremarkable. IMPRESSION: 1. Endotracheal tube terminates 5.7 cm above the geovanny. 2. Esophagogastric tube proceeds into the stomach and beyond the foqwj-my-oegv. at 2233 Reported and signed by: Albaro Saab MD CC: Chuckie Mcnally MD Dictated Date/Time: 08/04/2020 (2232)Technologist: Toyin Jamil Transcribed Date/Time: 08/04/2020 (2232) By: [email or web address] Orig Print D/T: S: 08/04/2020 (2235) GALDINO Ribeiro NAME: MARCELLE MEDINA [address] [place] [address] PHYS: Chuckie Escobar MD, [place] [address] :1970 AGE: 50 SEX: F LOC: [place] PHONE #: [phone] EXAM DATE: 08/04/2020 STATUS: REG ER FAX #: [phone] RAD NO: DC Dt: PAGE 1 Signed [id number] 16:03:00 Test Item Value Reference Range Interpretation Comments SURG (test code = SURG) --------RUN DATE: 03/14/20 [facility] PAGE 1 RUN TIME: 1603 Specimen Inquiry RUN USER: INTERFACE --------PATIENT: MARCELLE WEISS LOC: STEPHIE #: [id number] AGE/SX: 50/F ROOM: RE03/13/20REG DR: Tyler Clemens MD : 72 BED: DIS: STATUS: DEP [facility] TLOC: -------- SPEC #: [id number] RECD: 03/13/20 STATUS: LEILA MARSH #: [id number] RADHA: 03/13/[address]: Tyler Clemens MD ENTERED: 03/13/20 SP TYPE: SURG OTHR DR: Adele York MD ORDERED: SURG PATH LVL 08/03 COPIES TO: Tyler Clemens MD [address] [place] [address] Adele York MD [address] [place] [address] HISTOLOGY: TISSUE ID BLK PCS MANOJ LEV PROCEDURE DISPOSITION ____ ___ ___ ___ SMALL INTESTINE A 1 2 GASTRIC ANTRUM B 1 2 STOMACH, NOS C 1 2 PROCEDURES: SURG PATH LVL 4 (03/13/20) TISSUES: A. SMALL INTESTINE, NOS - SMALL BOWEL BIOPSY B. GASTRIC ANTRUM - ANTRUM BIOPSY C. STOMACH, NOS - BODY BIOPSY CPT CODES CPT CODE(S): [id number] , , , , , , FINAL DIAGNOSIS A. Small intestine, biopsy: DUODENUM WITH UNREMARKABLE VILLI B. Stomach, antrum, biopsy: ACUTE GASTRITIS WITH SURFACE ULCERATION NEGATIVE FOR INTESTINAL METAPLASIA, DYSPLASIA, OR MALIGNANCY NEGATIVE FOR HELICOBACTER PYLORI ORGANISMS C. Stomach, body, biopsy: CONTINUED ON NEXT PAGE --------RUN DATE: 03/14/20 [facility] - LAB PAGE 2 RUN TIME: 1603 Specimen Inquiry RUN USER: INTERFACE --------SPEC #: [id number] PATIENT: MARCELLE WEISS #[id number] (Continued) FINAL DIAGNOSIS (Continued) MILD CHRONIC GASTRITIS NEGATIVE FOR INTESTINAL METAPLASIA, DYSPLASIA, OR MALIGNANCY NEGATIVE FOR HELICOBACTER PYLORI ORGANISMS GROSS DESCRIPTION A. Small bowel biopsy. Received in formalin are three donahue tissue fragments, 0.1 - 0.2 cm, all as A. B. Antrum biopsy. Received in formalin is a donahue tissue fragment, 0.2 cm, all as B. C. Body biopsy. Received in formalin are two donahue tissue fragments, 0.2 cm each, all as C. ba/nr Grossing performed at [facility] Pathology, [address] [place] [address], [address], [place] [address]. Finance Associate: Nickolas Steel M.D. MICROSCOPIC DESCRIPTION A. Small bowel biopsy. Sections demonstrate duodenum with unremarkable villi. No evidence of villous blunting or increased intraepithelial lymphocytes is seen. No features of a malabsorption syndrome are identified. B. Antrum biopsy. Section gastric mucosa with a reactive appearance and acute and chronic inflammation. Surface ulceration is also identified. No etiology of the ulcer is identified. No dysplasia or malignancy is identified. No evidence of intestinal metaplasia or Helicobacter pylori organisms is seen. C. Body biopsy. Sections demonstrate gastric mucosa with mild chronic inflammation. No dysplasia or malignancy is identified. No evidence of intestinal metaplasia or Helicobacter pylori organisms is seen. Signed SIGNATURE ON FILE Raúl Espana 03/14/20 1603 -------- END OF REPORT COVID 19 INHOUSE [id number] 13:44:00 Test Item Value Reference Range Interpretation Comments COVID 19 INHOUSE AG NEGATIVE Negative Per manu facturer, (test code = negative result s should [id number]) be treated aspr esumptive and, if inconsi [...] symptoms co nsistent with COVID-19. CBC W/AUTO [id number] 13:13:00 Test Item Value Reference Range Interpretation [...] DIFF/SCN CRITERIA = MDIFF) Novel Coronavirus 2018 [id number] 21:08:00 Test Item Value Reference Range Interpretation Comments Novel Coronavirus 2019 Inhouse (test Negative Negative code = COVNONPUI) COMPREHENSIVE METABOLIC [id number] 09:36:00 Test Item Value Reference Range Interpretation [...] TOTAL (test code = ALKP) HCG SERUM [id number] 09:36:00 Test Item Value Reference Range Interpretation Comments HCG SERUM QUAL (test code = SERUM NEGATIVE NEGATIVE HCGQL) - XR CHEST 2 [id number] 09:35:00 FAX: Jigar Velasco [facility] [phone] [place]: St: PRE FAX: Adele Hernández MD [phone] Name: ABHISHEK,DELONDA M [facility] : 1970 Age/S: 49/F [address] [place] [address] Unit #: [id number] Loc: [place] [address] Phys: Jigar Jurado DPM Acct: [place] [id number] Dis Date: Status: PRE SDC PHONE #: [phone] Exam Date: 09/27/2019 09 FAX #: [phone] Reason: PREOP- PAIN D/T ORTHOPEDIC IMPLANT EXAMS: CPT CODE: [id number] XR CHEST 2 V 21070 Two-view chest: HISTORY: Preoperative clearance for painful orthopedic implant. FINDINGS: Stable mild cardiomegaly compared with 05/07/2019. Development of areas of bibasilar subsegmental atelectasis. No pleural effusion or bony pathology IMPRESSION: Bibasilar s ubsegmental atelectasis SL: [id number] at 0935 Reported and signed by: Sammy Branham M.D. CC: Jigar Jurado DPM; Adele York MD Technologist: Diamond Castro RT(R) Trnscrd Date/Time/By: 09/27/2019 (0935) : By: SomETG Orig Print D/T: S: 09/27/2019 (7797) PAGE 1 Signed ReportCOMPREHENSIVE METABOLIC [id number] 09:28:00 Test Item Value Reference Range Interpretation [...] IUnit/L 20-125 code = ALKP) HCG SERUM [id number] 09:28:00 Test Item Value Reference Range Interpretation Comments HCG SERUM QUAL (test code = SERUM NEGATIVE NEGATIVE HCGQL) CBC W/AUTO [id number] 09:21:00 Test Item Value Reference Range Interpretation [...] (test NO code = MDIFF) BASIC METABOLIC [id number] 09:50:00 Test Item Value Reference Range Interpretation [...] = CA) 9.5 MG/DL 8.5-10.1 N VANCOMYCIN [id number] 21:06:00 Test Item Value Reference Range Interpretation Comments VANCOMYCIN TROUGH (test code = 19.1 mcG/ML 10-20 N VANCT) GLUCOSE BEDSIDE [id number] 20:17:00 Test Item Value Reference Range Interpretation Comments GLUCOSE BEDSIDE TESTING (test code = 84 mg/dL 70-110 N GLUBED) - NM BONE 3 [id number] 19:51:00 FAX: Dwight Parrish MD [place]: PM St: ADM FAX: Bettye Alves MD [phone] Name: MARCELLE WEISS [facility] : 1970 Age/S: 49/F [address] Unit #: [id number] Loc: [address] [place] [address] Phys: Bettye Mullins MD Acct: [id number] Dis Date: Status: ADM IN PHONE #: [phone] Exam Date: 05/09/2019 1539 FAX #: Reason: OM ANDHARDWARE INFECTION LEFT ANKLE EXAMS: CPT: [id number] NM BONE 3 PHASE 70361 EXAM: - NM BONE 3 PHASE HISTORY: [...] Calloway MD; Bettye Mullins MD Technologist: Lynn Rios [facility] Transcribed Date/Time/By: 05/09/2019 (1950) :Anabela.[email or web address] Orig Print D/T: S: 05/09/2019 (1953) PAGE 1 Signed ReportBASIC METABOLIC [id number] 14:15:00 Test Item Value Reference Range Interpretation [...] concentrations <2 ng/mL are obtai emily. PROCALCITONIN (PCT)2019-05-08 14:15:00 Test Item Value Reference [...] <2 ng/mL are obtai emily. CBC W/AUTO [id number] 07:54:00 Test Item Value Reference Range Interpretation [...] code = NO DIFF/SCN CRITERIA MDIFF) SED [id number] 07:54:00 Test Item Value Reference Range Interpretation Comments SED RATE (test code = SEDW) 19 mm/hr 0-20 N BASIC METABOLIC [id number] 06:17:00 Test Item Value Reference Range Interpretation [...] (test code = ng/ml PROCAL) CBC W/AUTO [id number] 06:08:00 Test Item Value Reference Range Interpretation [...] code = NO DIFF/SCN CRITERIA MDIFF) SED [id number] 06:08:00 Test Item Value Reference Range Interpretation Comments SED RATE (test code = SEDW) mm/hr 0-20 [id number] 02:57:00 Test Item Value Reference Range Interpretation [...] may basilio yby method. Completed by Nursing: [id number] 23:57:00 Test Item Value Reference Range Interpretation [...] by Nursing: OSVALDO RFLX MICR CULT IF [id number] 18:41:00 Test Item Value Reference Range Interpretation [...] for culture: Dysuria/FrequencyUA RFLX MICR CULT IF [id number] 18:41:00 Test Item Value Reference Range Interpretation [...] CLEAN CATCHIndication for culture: Dysuria/Frequency COMPREHENSIVE METABOLIC [id number] 18:23:00 Test Item Value Reference Range Interpretation [...] TOTAL (test code = ALKP) CBC W/AUTO [id number] 18:03:00 Test Item Value Reference Range Interpretation [...] = NO DIFF/SCN CRITERIA MDIFF) LACTIC ACID [id number] 17:58:00 Test Item Value Reference Range Interpretation Comments LACTIC ACID POC (test code = 1.93 MMOL/L 0.90-1.70 H LACTP) - XR ANKLE 3+V [id number] 17:50:00 Name: MARCELLE WEISS [facility] : 1970 Age/S: 49 / F [address] Unit #: [id number] Loc: [place] [address] Phys: Aletha Valerio MD Acct: [id number] Dis Date: Status: REG ER PHONE #: [phone] Exam Date: 05/07/2019 0336 FAX #: Reason: ankle EXAMS: CPT: [id number] XR ANKLE 3+V [place] [address] Fluoro Time: DAP (Gy m2): Air Kerma [...] PAGE 1 Signed Report Name: MARCELLE WEISS [facility] : 1970 Age/S: 49 / F [address] Unit #: [id number] Loc: [place] [address] Phys: Aletha Valerio MD Acct: [id number] Dis Date: Status: REG ER PHONE #: [phone] Exam Date: 05/07/2019 1740 FAX #: Reason:ankle EXAMS: CPT: [id number] XR ANKLE 3+[place] [address] Fluoro Time: DAP (Gy m2): Air Kerma (mGy): <Continued> Technologist: Miguel Enamorado RT(R)(MR) Trnscb Date/Time: 05/07/2019 (1749) 16 Orig Print D/T: S: 05/07/2019 (175) PAGE 2 Signed Report- XR CHEST 1 [id number] 17:40:00 Name: ABHISHEKMAYITOBREANA [place] [facility] : 1970 Age/S: 49 / F [address] Unit #: [id number] Loc: [place] [address] Phys: Aletha Valerio MD Acct: [id number] Dis Date: Status: REG ER PHONE #: [phone] Exam Date: 05/07/2019 1710 FAX #: Reason: infection EXAMS: CPT: [id number] XR CHEST 1 V 11024 Fluoro Time: DAP (Gy m2): Air Kerma [...] PAGE 1 Signed Report Name: MARCELLE WEISS [facility] : 1970 Age/S: 49 / F [address] Unit #: [id number] Loc: [place] [address] Phys:Aletha Valerio MD Acct: [id number] Dis Date: Status: REG ER PHONE #: [phone] Exam Date: 05/07/2019 1710 FAX #: Reason: infection EXAMS: CPT: [id number] XR CHEST1 V 77967 Fluoro Time: DAP (Gy m2): Air Kerma (mGy): <Continued> Technologist: Miguel Enamorado RT(R)(MR) Trnscb Date/Time: 05/07/2019 (1739) SomMD16 Orig Print D/T: S: 05/07/2019 (1742) PAGE 2 Signed ReportPROCALCITONIN (PCT)2019-04-27 03:09:00 Test [...] concentrations <2 ng/mL are obtai emily. SED [id number] 13:10:00 Test Item Value Reference Range Interpretation Comments SED RATE (test code = SEDW) 30 mm/hr 0-20 H [id number] 02:18:00 Test Item Value Reference Range Interpretation [...] may basilio yby method. Completed by Nursing: [id number] 23:37:00 Test Item Value Reference Range Interpretation [...] yby method. Completed by Nursing: NOCHEMISTRY 8 [id number] 22:03:00 Test Item Value Reference Range Interpretation [...] 58-135 N code = GFRBED) CHEMISTRY 8 [id number] 22:03:00 Test Item Value Reference Range Interpretation [...] code = GFRBED) - CT CHEST W/O [id number] 21:11:00 Name: MARCELLE WEISS [place] : 1970 Age/S: 49 / F [address] Unit #: [id number] Loc: [place] [address] Phys: Uday Maya MD Acct: [id number] Dis Date: Status: ADM IN PHONE #: [phone] Exam Date: 04/25/20192042 FAX #: Reason: lung mass EXAMS: CPT: [id number] CT CHEST W/O CONTRAST 45632 Exam: CT thorax without contrast. Location: H [...] 1 Signed Report (CONTINUED) Name: MARCELLE WEISS [facility] : 1970 Age/S: 49 / F [address] Unit #: [id number] Loc: [place] [address] Phys: Uday Maya MD Acct: [id number] Dis Date: Status: ADM IN PHONE #: [phone] Exam Date: 04/25/20192042 FAX #: Reason: lung mass EXAMS: CPT: [id number] CT CHEST W/O CONTRAST 23912 <Continued> CC: Uday Maya MD; Aletha Valerio [...] TOTAL (test code = ALKP) CBC W/AUTO [id number] 20:01:00 Test Item Value Reference Range Interpretation [...] = NO DIFF/SCN CRITERIA MDIFF) TROPONIN I [id number] 19:58:00 Test Item Value Reference Range Interpretation Comments TROPONIN I RAPID 0.00 ng/mL 0.00-0.08 N - The use o f serial (test code = sampling and te sting TROPIRAP) protocol is a recommended pra ctice- An elevated tro ponin level alone is often not sufficient for diagnosis of my ocardial infarction. LACTIC ACID [id number] 19:58:00 Test Item Value Reference Range Interpretation Comments LACTIC ACID POC (test code = 1.43 MMOL/L 0.90-1.70 N LACTP) - XR CHEST 1 [id number] 19:42:00 Name: MARCELLE WEISS [facility] : 1970 Age/S: 49 / F [address] Unit #: [id number] Loc: [place] [address] Phys: Aletha Valerio MD Acct: [id number] Dis Date: Status: REG ER PHONE #: [phone] Exam Date: 04/25/2019 1920 FAX #: Reason: Suspected Sepsis EXAMS: CPT: [id number] XR CHEST 1 V 58734 Fluoro Time: DAP (Gy m2): Air Kerma [...] of the chest, as clinically indicated. at 1941 Reported and signed by: Aamir Sherman M.D. CC: Aletha Valerio MD; Abilio Maldonado MD; Lisette Ortiz PAGE 1 Signed Report Name: MARCELLE WEISS [facility] : 1970 Age/S: 49 / F [address] Unit #: [id number] Loc: [place] [address] Phys: Aletha Valerio MD Acct: [id number] Dis Date: Status: REG ER PHONE #: [phone] Exam Date: 04/25/20191919 FAX #: Reason: Suspected Sepsis E XAMS: CPT: [id number] XR CHEST 1 V 34930 Fluoro Time: DAP (Gy m2): Air Kerma (mGy): <Continued> Technologist: David Cole RT(R)(CT) TrnscbDate/Time: 04/25/2019 (1941) t.SDR.GS29 Orig Print D/T: S: 04/25/2019 (1945) PAGE 2 Signed ReportBASIC METABOLIC [id number] 06:51:00 Test Item Value Reference Range Interpretation [...] CA) 8.8 MG/DL 8.5-10.1 N CBC W/AUTO [id number] 06:27:00 Test Item Value Reference Range Interpretation [...] = NO DIFF/SCN CRITERIA MDIFF) BASIC METABOLIC [id number] 18:56:00 Test Item Value Reference Range Interpretation [...] CA) 9.0 MG/DL 8.5-10.1 N BASIC METABOLIC [id number] 18:53:00 Test Item Value Reference Range Interpretation [...] CA) 9.0 MG/DL 8.5-10.1 N CBC W/AUTO [id number] 18:52:00 Test Item Value Reference Range Interpretation [...] = NO DIFF/SCN CRITERIA MDIFF) CBC W/AUTO [id number] 07:16:00 Test Item Value Reference Range Interpretation [...] = NO DIFF/SCN CRITERIA MDIFF) BASIC METABOLIC [id number] 07:11:00 Test Item Value Reference Range Interpretation [...] CA) 8.7 MG/DL 8.5-10.1 N BASIC METABOLIC [id number] 11:01:00 Test Item Value Reference Range Interpretation [...] CA) 8.6 MG/DL 8.5-10.1 N CBC W/AUTO [id number] 10:24:00 Test Item Value Reference Range Interpretation [...] = NO DIFF/SCN CRITERIA MDIFF) BASIC METABOLIC [id number] 05:56:00 Test Item Value Reference Range Interpretation [...] CA) 8.8 MG/DL 8.5-10.1 N CBC W/AUTO [id number] 05:51:00 Test Item Value Reference Range Interpretation [...] = NO DIFF/SCN CRITERIA MDIFF) CBC W/AUTO [id number] 06:08:00 Test Item Value Reference Range Interpretation [...] = NO DIFF/SCN CRITERIA MDIFF) BASIC METABOLIC [id number] 05:55:00 Test Item Value Reference Range Interpretation [...] = CA) 9.0 MG/DL 8.5-10.1 N VANCOMYCIN [id number] 14:35:00 Test Item Value Reference Range Interpretation Comments VANCOMYCIN TROUGH (test code = 17.4 mcG/ML 10-20 N VANCT) BASIC METABOLIC [id number] 06:49:00 Test Item Value Reference Range Interpretation [...] CA) 8.5 MG/DL 8.5-10.1 N CBC W/AUTO [id number] 06:44:00 Test Item Value Reference Range Interpretation [...] DIFF/SCN CRITERIA MDIFF) - US GUIDANCE VASC [id number] 13:25:00 Name: ABHISHEKMAYITORYLEECheyanne Adryan [facility] : 1970 Age/S: 49 / F [address] [facility] Unit #: [id number] Loc: [place] [address] Phys: Theodore Gonzalez MD Acct: [id number] Dis Date: Status: ADM IN PHONE #: [phone] Exam Date: 03/29/2019 1553 FAX #: Reason: PICC LINE PLACEMENT EXAMS: CPT: [id number] US GUIDANCE VASC ACCESS 56317 Examination: PICC line insertion Location code: S17 Comparison: None chief catalyst operator: Tamra Straightedge Man: None Sedation: None Anesthesia: 1% lidocaine subcutaneous [...] 1 Signed Report (CONTINUED) Name: MARCELLE WEISS [facility] : 1970 Age/S: 49 /F [address] [facility] Unit #: [id number] Loc: [place] [address] Phys: Theodore Gonzalez MD Acct: [id number] Dis Date: Status: ADM IN PHONE #: [phone] Exam Date: 03/29/2019 1550 FAX #: Reason: PICC LINE PLACEMENT EXAMS: CPT: [id number] US GUIDANCE VASC ACCESS 74804 <Continued> Impression: Successful ultrasound and fluoroscopic guided right basilic PICC line placement. at 1325 Reported and signed by: Camacho Barboza M.D. CC: Theodore Gonzalez MD; Adele York MD Technologist: Esthela Krishnamurthy, RT(R),DAPHNIE(AB) Trnmob Date/Time: 03/29/2019 (1325) [id number] PAGE 2 Signed Report Name: MARCELLE WEISS [facility] : 1970 Age/S: 49 / F [address] [facility] Unit #: [id number] Loc: [place] [address] Phys: Theodore Gonzalez MD Acct: [id number] Dis Date: Status: ADM IN PHONE #: [phone] Exam Date: 03/29/2019 1550 FAX #: Reason: PICC LINE PLACEMENT EXAMS: CPT: [id number] US GUIDANCE VASC ACCESS 82085 <Continued> Orig Print D/T: S: 03/29/2019 (0290) Probe: PAGE 3 Signed Report- FLUORO GUID CTRL ACC [id number] 13:25:00 Name: MARCELLE WEISS [facility] : 1970 Age/S: 49 / F [address] [address] Unit #: [id number] Loc: [place] [address] Phys: Bettye Mullins MD Acct: [id number] Dis Date: Status: ADM IN PHONE #: [phone] Exam Date: 03/29/2019 1301 FAX #: Reason: prolonged antibx EXAMS: CPT: [id number] FLUORO GUID CTRL ACC DEV 63230 Fluoro Time: DAP (Gy m2): Air Kerma (mGy): Examination: PICC line insertion Location code: S17 Comparison: None chief catalyst operator: Tamra Straightedge Man: None Sedation: None Anesthesia: 1% lidocaine subcutaneous [...] 1 Signed Report (CONTINUED) Name: MARCELLE WEISS [facility] : 1970 Age/S: 49 / F [address] [place] [address] Unit #: [id number] Loc: [place] [address] Phys: Bettye Mullins MD Acct: [id number] DisDate: Status: ADM IN PHONE #: [phone] Exam Date: 03/29/2019 1301 FAX #: Reason: prolonged antibx EXAMS: CPT: [id number] GUID CTRL ACC DEV 65145 Fluoro Time: DAP (Gy m2): Air Kerma (mGy): <Continued> Successful ultrasound and fluoroscopic guided right basilic PICC line placement. at 1325 Reported and signed by: Camacho Barboza M.D. CC: Theodore Gonzalez MD; Bettye Mullins MD; Adele York MD PAGE 2 Signed Report Name:MARCELLE WEISS [facility] : 1970 Age/S: 49 / F [address] [place] [address] Unit #: [id number] Loc: [place] [address] Phys: Bettye Mullins MD Acct: [id number] Dis Date: Status: ADM IN PHONE #: [phone] Exam Date: 03/29/2019 1301 FAX #: Reason: prolonged antibx EXAMS: CPT: [id number] FLUORO GUID CTRL ACC DEV 60056 Fluoro Time: DAP(Gy m2): Air Kerma (mGy): <Continued> Technologist: Ashlyn Maldonado RT(R)(MR) Trnscb Date/Time: 03/29/2019 (1325) [id number] Orig Print D/T: S: 03/29/2019 (3260) PAGE 3 Signed ReportVANCOMYCIN [id number] 00:16:00 Test Item Value Reference Range Interpretation Comments VANCOMYCIN TROUGH (test code = 20.7 mcG/ML 10-20 H VANCT) BASIC METABOLIC [id number] 09:06:00 Test Item Value Reference Range Interpretation [...] CA) 8.6 MG/DL 8.5-10.1 N CBC W/AUTO [id number] 08:47:00 Test Item Value Reference Range Interpretation [...] CRITERIA MDIFF) Comment: postop- XR FLUOROSCOPY 0-60 [id number] 15:46:00 Name: MARCELLE WEISS [facility] : 1970 Age/S: 49 / F [address] [address] Unit #: [id number] Loc: [place] [address] Phys: Abilio Maldonado MD Acct: [id number] Dis Date: Status: [place] [facility] PHONE #: [phone] Exam Date: 03/27/2019 0940 FAX #: Reason: LEFT ANKLE I D WITH ANTIBIOTIC BEADS EXAMS: CPT: [id number] XR FLUOROSCOPY 0-60 MIN 13779 Fluoro Time: 4 SEC DAP (Gy m2): [...] PAGE 1 Signed Report Name: MARCELLE WEISS [facility] : 1970 Age/S: 49 / F [address] [address] Unit #: [id number] Loc: [place] [address] Phys: Abilio Maldonado MD Acct: [id number] Dis Date: Status: CAN [facility] PHONE #: [phone] Exam Date: 03/27/2019 0940 FAX #: Reason: LEFT ANKLE I D WITH ANTIBIOTIC BEADS EXAMS: CPT: [id number] XR FLUOROSCOPY 0-60 MIN 41733 Fluoro Time: 4 SEC DAP (Gy m2): Air Kerma (mGy): <Continued> Technologist: Lisa Machuca, RT(R) Trnscb Date/Time: 03/27/2019 (1546) [id number] Orig Print D/T: S: 03/27/2019 (1372) PAGE 2 Signed ReportUR HCG [id number] 06:57:00 Test Item Value Reference Range Interpretation Comments UR HCG QUAL (test code = HCGQLU) NEGATIVE NEGATIVE UA RFLX MICR CULT IF [id number] 06:54:00 Test Item Value Reference Range Interpretation [...] culture: Flank PainUA RFLX MICR CULT IF [id number] 06:54:00 Test Item Value Reference Range Interpretation [...] CLEAN CATCHIndication for culture: Flank PainBASIC METABOLIC [id number] 08:09:00 Test Item Value Reference Range Interpretation [...] CA) 8.9 MG/DL 8.5-10.1 N VITAMIN D [id number] 08:09:00 Test Item Value Reference Range Interpretation Comments VITAMIN D 33.2 ng/mL 30.0-100.0 Vitamin D defic iency has 25-HYDROXY (test been define d by the code = VITD25) [facility] edicine and an Endocrine So ciety practice guidel ine as alevel of serum 25-OH vitamin D less than 20 ng/mL (1,2).The Endocrine Society went on to further define vitamin Dinsufficiency as a level between 21 and 29 ng/mL (2).1. IOM (Ins titute of Medicine). 2010 . Dietary reference int akes for calcium and D. [place]: [employer] .2. Caitlin MF, [place], [place] i ROLLINS, et al. Evaluatio n, treatment, and prevention of vitamin D deficiency: an Endocrine Society clinica l practice guideline. ALLY EM. 2010; 96(7):9941-30.P erformed At: [facility] [id number] [place], [place] [id number] Abilio Rosales MD Ph:[phone] CBC W/AUTO [id number] 13:29:00 Test Item Value Reference Range Interpretation [...] code = NO DIFF/SCN CRITERIA MDIFF) SED [id number] 13:29:00 Test Item Value Reference Range Interpretation Comments SED RATE (test code = SEDW) 10 mm/hr 0-20 N URINALYSIS [id number] 13:12:00 Test Item Value Reference Range Interpretation [...] LEUU) Urine Specimen Type: Clean CatchC REACTIVE [id number] 12:47:00 Test Item Value Reference Range Interpretation Comments C REACTIVE PROTEIN (test code = 1.260 MG/DL 0.000-0.3 H CRP) BASIC METABOLIC [id number] 12:46:00 Test Item Value Reference Range Interpretation [...] CA) 8.9 MG/DL 8.5-10.1 N VITAMIN D [id number] 12:46:00 Test Item Value Reference Range Interpretation Comments VITAMIN D 25-HYDROXY (test code = VITD25) PROTHROMBIN [id number] 12:33:00 Test Item Value Reference Range Interpretation Comments PT PATIENT (test code = PTP) 11.4 SECONDS 9.3-12.9 N INTERNATIONAL NORMAL RATIO 0.99 INR Unit 0.8-1.2 N (test code = INR) THROMBOPLASTIN TIME [id number] 12:33:00 Test Item Value Reference Range Interpretation Comments THROMBOPLASTIN TIME PARTIAL 29.0 SECONDS 26-35 N (test code = PTT) CBC W/AUTO [id number] 12:32:00 Test Item Value Reference Range Interpretation [...] code = NO DIFF/SCN CRITERIA MDIFF) SED [id number] 12:32:00 Test Item Value Reference Range Interpretation Comments SED RATE (test code = SEDW) mm/hr 0-20 - XR CHEST 1 [id number] 12:00:00 Name: JOSEFINA WEISSCheyanne Cornelius [facility] : 1970 Age/S: 49 / F [address] [address] Unit #: [id number] Loc: [place] [address] Phys: Abilio Maldonado MD Acct: [id number] Dis Date: Status: PRE SDC PHONE #: [phone] Exam Date: 03/03/2019 115 FAX #: Reason: PRE OP EXAMS: CPT: [id number] XR CHEST 1 V 26508 Fluoro Time: DAP (Gy m2): Air Kerma [...] PAGE 1 Signed Report Name: MARCELLE WEISS [facility] : 1970 Age/S: 49 / F [address] [address] Unit #: [id number] Loc: [place] [address] Phys: Abilio Maldonado MD Acct: [id number] Dis Date: Status: PRE SDC PHONE #: [phone] Exam Date: 03/03/2019 1152 FAX #: Reason: PRE OP EXAMS: CPT: [id number] XR CHEST 1 V 22059 Fluoro Time: DAP (Gy m2): Air Kerma (mGy): <Continued> Technologist: Kevin Herrera, RT(R)(CT); Lisa Machuca, RT(R) Trnmob Date/Time: 03/03/2019 (1200) [email or web address] Orig Print D/T: S: 03/03/2019 (6858) PAGE 2 Signed Report
[2020-09-30 11:00] LABS: Basophils % 1.2 % (0-1.3); Hematocrit 37.4 % (36.0-45.0); Lymphocytes % 24.5 % (15.3-44.8); RBC Red Blood Cell Count 4.52 M/uL (3.86-4.86)
[2020-09-30] MEDS ORDERED: METOCLOPRAMIDE 10 MG/2mL INJ ONE (11:11)
[2020-09-30] MEDS ORDERED: LORazepam 2 MG/ML VIAL ONE (11:13)
[2020-09-30] MEDS ORDERED: NA CHLORIDE 0.9% 500 ML ONE (11:13)
[2020-09-30] MEDS ORDERED: DIPHENHYDRAMINE 50 MG/ML VIAL ONE (11:13)
[2020-09-30 11:14] LABS: ALT/SGPT 18 U/L (12-78); AST/SGOT 14 U/L (15-37); Albumin 3.5 g/dL (3.4-5.0); Alkaline Phosphatase 59 U/L (45-117); BUN Blood Urea Nitrogen 9 mg/dL (7-18); Bicarbonate 25 mmol/L (21-32); Bilirubin Direct 0.2 mg/dL (0-0.2); Bilirubin Total 0.4 mg/dL (0.2-1.0); Glucose Level 79 mg/dL (74-106); Lipase 53 U/L (73-393); Potassium 3.6 mmol/L (3.5-5.1); Protein, Total 6.8 g/dL (6.4-8.2); Sodium Level 140 mmol/L (136-145)
--- NOTE | 2020-09-30 11:48 | RAD REPORT ---
EXAM DESCRIPTION: CT - Abdomen Pelvis Wo Contrast - 09/30/2020 11:36 am CLINICAL HISTORY: Abdominal pain COMPARISON: 2019 TECHNIQUE: Computed axial tomography of the abdomen and pelvis was obtained. IV contrast was not req uested All CT scans are performed using dose optimization technique as appropriate and may include automated exposure control or mA/KV adjustment according to patient size. FINDINGS: The evaluation of solid organs, and vessels is limited secondary to the lack of contrast administration. Moderate hiatal hernia. Liver, spleen, pancreas and adrenals grossly normal. Tiny right renal angiomyelolipoma. Left nephrectomy Tiny umbilical hernia. No evidence of diverticulitis. Normal appendix IMPRESSION: No acute abnormality is displayed.
[2020-09-30] MEDS ORDERED: DICYCLOMINE HCL 20 MG/2 ML AMP IM ONE (12:08)
[2020-09-30] MEDS ORDERED: MEPERIDINE HCL 50 MG/ML ONE ×2 (12:39→13:32)
[2020-09-30] MEDS ORDERED: PROMETHAZINE INJ 25 MG/ML AMP ONE (13:12)
--- NOTE | 2020-09-30 13:12 | ER ---
Nurse's Notes [facility] [place] Name: Oleg Rosenberg Age: 50 yrs Sex: Female : 1970 Arrival Date: 09/30/2020 Time: 10:05 Bed 17 Private MD: Diagnosis: Vomiting, unspecified;Diarrhea, unspecified Presentation: 09/30 10:05 Chief complaint: EMS states: "pt reporting N/V/D this AM with diffuse abdominal pain jd3 with a lump in the middle of her stomach that she was did not know about. she has had a lap band placed and removed in her past and she does report her diet being poor recently.". Coronavirus screen: At this time, the client does not indicate any symptoms associated with coronavirus-19. Ebola Screen: Patient negative for fever greater than or equal to 101.5 degrees Fahrenheit, and additional compatible Ebola Virus Disease symptoms. Initial Sepsis Screen: Does the patient meet any 2 criteria? No. Patient's initial sepsis screen is negative. Does the patient have a suspected source of infection? No. Patient's initial sepsis screen is negative. Risk Assessment: Do you want to hurt yourself or someone else? Patient reports no desire to harm self or others. Onset of symptoms was September 30, 2020. 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: 10:12 LMP N/A - Irregular menses jd3 Historical: - Allergies: 10:11 Aspirin; jd3 10:11 Dilaudid; jd3 10:11 Iodinated Contrast Media - IV Dye; jd3 10:11 Iodine; jd3 10:11 Morphine; jd3 10:11 Mucinex; jd3 10:11 NSAIDS; jd3 10:11 PENICILLINS; jd3 10:11 Zofran; jd3 10:11 Fentanyl; jd3 - Home Meds: 10:11 Adderall XR 30 mg Oral cp24 twice a day [Active]; Ambien 10 mg Oral tab qhs prn for jd3 Sleep-Onset Insomnia [Active]; Breo Ellipta inhalation twice a day [Active]; Cogentin Oral 1 mg three times a day [Active]; Equetro 200 mg Oral CM12 three times a day [Active]; levalbuterol tartrate inhalation every 6 hours [Active]; losartan 25 mg Oral tab 1 tab once daily [Active]; Lyrica 150 mg Oral 2 times per day [Active]; Proventil Inhl every 6 hours [Active]; trazodone 100 mg Oral tab nightly [Active]; Valium 5 mg Oral tab 1 tab 2 times per day [Active]; tizanidine 4 mg Oral cap twice a day [Active]; Vraylar 3 mg Oral cap 1 cap once daily [Active]; - PMHx: 10:11 Bipolar disorder; Depression; Bronchitis; COPD; kidney cancer; Asthma; jd3 - PSHx: 10:11 LEFT KIDNEY REMOVED; Hysterectomy; jd3 - Immunization history:: Adult Immunizations up to date. - Social history:: Smoking status: unknown. Screenin:14 Abuse screen: Denies threats or abuse. Nutritional screening: No deficits noted. jd3 Tuberculosis screening: No symptoms or risk factors identified. Fall Risk Ambulatory Aid- None/Bed Rest/Nurse Assist (0 pts). Gait- Normal/Bed Rest/Wheelchair (0 pts) Mental Status- Oriented to own ability (0 pts). Total Mark Fall Scale indicates No Risk (0-24 pts). Assessment: 10:13 General: Appears in no apparent distress. uncomfortable, Behavior is calm, cooperative, jd3 appropriate for age. Pain: Complains of pain in abdomen Quality of pain is described as sharp, stabbing. Neuro: Level of Consciousness is awake, alert, obeys commands, Oriented to person, place, time, situation. Cardiovascular: Denies chest pain, Capillary refill < 3 seconds Patient's skin is warm and dry. Respiratory: Airway is patent Respiratory effort is even, unlabored, Respiratory pattern is regular, symmetrical, Denies cough, shortness of breath. GI: Abdomen is round obese, Abdomen is tender to palpation X 4 quads. Reports diarrhea, nausea, vomiting. : No signs and/or symptoms were reported regarding the genitourinary system. EENT: No signs and/or symptoms were reported regarding the EENT system. Derm: Skin is intact, Skin is dry, Skin is normal, Skin temperature is warm. Musculoskeletal: Circulation, motion, and sensation intact. Range of motion: intact in all extremities. 11:13 Reassessment: No changes from previously documented assessment. Patient and/or family [facility] updated on plan of care and expected duration. Pain level reassessed. Patient is alert, oriented x 3, equal unlabored respirations, skin warm/dry/pink. pt reports no relief from medications, provider notified. 12:10 Reassessment: Patient appears in no apparent distress at this time. No changes from [facility] previously documented assessment. Patient and/or family updated on plan of care and expected duration. Pain level reassessed. Patient is alert, oriented x 3, equal unlabored respirations, skin warm/dry/pink. pt reports continued pain and nausea, provider notified, no new orders at this time. 13:26 Reassessment: Patient appears in no apparent distress at this time. Patient and/or jd3 family updated on plan of care and expected duration. Pain level reassessed. Patient is alert, oriented x 3, equal unlabored respirations, skin warm/dry/pink. Patient states feeling better. Vital Signs: 10:12 BP 123 / 79; Pulse 72; Resp 20 S; Temp 97.0(TE); Pulse Ox 99% on R/A; Weight 166.47 kg j (R); Height 5 ft. 6 in. (167.64 cm) (R); Pain 9/10; 11:14 Pulse 83; Resp 19; Pulse Ox 100% on 2 lpm NC; jd3 12:11 BP 117 / 75; Pulse 60; Resp 17 S; Pulse Ox 100% on R/A; jd3 13:30 BP 132 / 64; Pulse 63; Resp 18 S; Pulse Ox 100% on 2 lpm NC; jd3 10:12 Body Mass Index 59.23 (166.47 kg, 167.64 cm) [facility] ED Course: 10:05 Patient arrived in ED. [facility] 10:05 Monroe Lopez PA is PHCP. [facility] 10:05 Ihsan Song MD is Attending Physician. [facility] 10:08 Triage completed. jd3 10:12 Arm band placed on. j 10:15 Ajay Ward RN is Primary Nurse. j 10:15 Patient has correct armband on for positive identification. Bed in low position. Call [facility] light in reach. Side rails up X2. Pulse ox on. NIBP on. 10:45 Inserted saline lock: 24 gauge in left forearm, using aseptic technique. Blood sv collected. Flushed left forearm with 2 ml normal saline. 11:36 CT Abd/Pelvis - Without Contrast In Process Unspecified. EDMS 13:30 No provider procedures requiring assistance completed. IV discontinued, intact, jd3 bleeding controlled, No redness/swelling at site. Pressure dressing applied. Administered Medications: 11:03 Drug: NS 0.9% 500 ml Route: IV; Rate: bolus; Site: left forearm; jd3 12:00 Follow up: Response: No adverse reaction; IV Status: Completed infusion; IV Intake: jd3 500ml 11:04 Drug: Reglan (metoCLOPramide) 20 mg Route: IVP; Site: left forearm; jd3 12:00 Follow up: Response: No adverse reaction jd3 11:04 Drug: Ativan (LORazepam) 1 mg Route: IVP; Site: left forearm; jd3 12:00 Follow up: Response: No adverse reaction jd3 11:04 Drug: diphenhydrAMINE 25 mg Route: IVP; Site: left forearm; jd3 12:00 Follow up: Response: No adverse reaction jd3 11:52 Drug: Bentyl (dicyclomine) 20 mg Route: IM; Site: right deltoid; vg1 12:50 Follow up: Response: No adverse reaction jd3 12:22 Drug: Demerol (meperidine) 50 mg Route: IVP; Site: left forearm; jd3 13:20 Follow up: Response: No adverse reaction; RASS: Alert and Calm (0) jd3 12:56 Drug: Phenergan (promethazine) 12.5 mg Route: IVP; Site: left forearm; jd3 13:27 Follow up: Response: No adverse reaction jd3 13:00 Drug: Demerol (meperidine) 50 mg Route: IVP; Site: left forearm; jd3 13:27 Follow up: Response: No adverse reaction; RASS: Alert and Calm (0) jd3 Intake: 12:00 IV: 500ml; Total: 500ml. jd3 Outcome: 13:12 Discharge ordered by . jmm 13:30 Discharged to home via wheelchair, with family. jd3 13:30 Condition: stable 13:30 Discharge instructions given to patient, Instructed on discharge instructions, follow up and referral plans. medication usage, Demonstrated understanding of instructions, follow-up care, medications, Prescriptions given X 2. 13:31 Patient left the ED. [email or web address] Signatures: Dispatcher [employer] Nancy Traylor RN RN sv Mickail, Joel, PA PA jmm Davies, Jonathon, RN RN jd3 Kinga Sams RN RN vg1
--- NOTE | 2020-09-30 13:12 | EDPHYS ---
Physician Documentation [facility] Name: Oleg Rosenberg Age: 50 yrs Sex: Female : 1970 Arrival Date: 09/30/2020 Time: 10:05 Bed 17 Private MD: ED Physician Ihsan Song HPI: 09/30 10:18 This 50 yrs old Female presents to ER via EMS with complaints of vomiting, jmm diarrhea. 10:18 The patient presents to the emergency department with nausea, vomiting, diarrhea, jmm abdominal pain. Onset: The symptoms/episode began/occurred acutely, today. Possible causes: unknown. The symptoms are aggravated by nothing. The symptoms are alleviated by nothing. Associated signs and symptoms: Pertinent positives: abdominal pain, diarrhea, vomiting. The patient has not experienced similar symptoms in the past. 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 N/A - Irregular menses jd3 Historical: - Allergies: 10:11 Aspirin; jd3 10:11 Dilaudid; jd3 10:11 Iodinated Contrast Media - IV Dye; jd3 10:11 Iodine; jd3 10:11 Morphine; jd3 10:11 Mucinex; jd3 10:11 NSAIDS; jd3 10:11 PENICILLINS; jd3 10:11 Zofran; jd3 10:11 Fentanyl; jd3 - Home Meds: 10:11 Adderall XR 30 mg Oral cp24 twice a day [Active]; Ambien 10 mg Oral tab qhs prn for jd3 Sleep-Onset Insomnia [Active]; Breo Ellipta inhalation twice a day [Active]; Cogentin Oral 1 mg three times a day [Active]; Equetro 200 mg Oral CM12 three times a day [Active]; levalbuterol tartrate inhalation every 6 hours [Active]; losartan 25 mg Oral tab 1 tab once daily [Active]; Lyrica 150 mg Oral 2 times per day [Active]; Proventil Inhl every 6 hours [Active]; trazodone 100 mg Oral tab nightly [Active]; Valium 5 mg Oral tab 1 tab 2 times per day [Active]; tizanidine 4 mg Oral cap twice a day [Active]; Vraylar 3 mg Oral cap 1 cap once daily [Active]; - PMHx: 10:11 Bipolar disorder; Depression; Bronchitis; COPD; kidney cancer; Asthma; jd3 - PSHx: 10:11 LEFT KIDNEY REMOVED; Hysterectomy; jd3 - Immunization history:: Adult Immunizations up to date. - Social history:: Smoking status: unknown. ROS: 10:18 Constitutional: Negative for fever, chills, and weight loss, Cardiovascular: Negative [facility] for chest pain, palpitations, and edema, Respiratory: Negative for shortness of breath, cough, wheezing, and pleuritic chest pain. 10:18 Abdomen/GI: Positive for abdominal pain, nausea and vomiting, diarrhea. 10:18 All other systems are negative. Exam: 10:18 Head/Face: atraumatic. Eyes: EOMI, no conjunctival erythema appreciated ENT: Moist jmm Mucus Membranes Neck: Trachea midline, Supple Chest/axilla: Normal chest wall appearance and motion. Cardiovascular: Regular rate and rhythm. No edema appreciated Respiratory: Normal respirations, no respiratory distress appreciated Abdomen/GI: Non distended, soft Back: Normal ROM Skin: General appearance color normal MS/ Extremity: Moves all extremities, no obvious deformities appreciated, no edema noted to the lower extremities Neuro: Awake and alert, normal gait Psych: Behavior is normal, Mood is normal, Patient is cooperative and pleasant 10:18 Constitutional: The patient appears alert, awake, anxious, uncomfortable. Vital Signs: 10:12 BP 123 / 79; Pulse 72; Resp 20 S; Temp 97.0(TE); Pulse Ox 99% on R/A; Weight 166.47 kg jd3 (R); Height 5 ft. 6 in. (167.64 cm) (R); Pain 9/10; 11:14 Pulse 83; Resp 19; Pulse Ox 100% on 2 lpm NC; jd3 12:11 BP 117 / 75; Pulse 60; Resp 17 S; Pulse Ox 100% on R/A; jd3 13:30 BP 132 / 64; Pulse 63; Resp 18 S; Pulse Ox 100% on 2 lpm NC; jd3 10:12 Body Mass Index 59.23 (166.47 kg, 167.64 cm) jd3 MDM: 10:12 Patient medically screened. [facility] 13:10 Data reviewed: vital signs, nurses notes. Counseling: I had a detailed discussion with everardo the patient and/or guardian regarding: the historical points, exam findings, and any diagnostic results supporting the discharge/admit diagnosis, lab results, radiology results, the need for outpatient follow up, to return to the emergency department if symptoms worsen or persist or if there are any questions or concerns that arise at home. ED course: Patient is alert and non toxic in appearance in the ED. Patient advised to follow up with pcp and otherwise given strict return precautions. patient understood and agrees with the plan of care. . 09/30 10:14 Order name: Basic Metabolic Panel; Complete Time: 11: [facility] 09/30 10:14 Order name: CBC with Diff; Complete Time: : [facility] 09/30 10:14 Order name: Hepatic Function; Complete Time: : [facility] 09/30 10:14 Order name: Lipase; Complete Time: : [facility] 09/30 10:14 Order name: CT Abd/Pelvis - Without Contrast; Complete Time: 11:58 [facility] 09/30 10:14 Order name: IV Saline Lock; Complete Time: 11:03 [facility] 09/30 10:14 Order name: Labs collected and sent; Complete Time: 11:03 [facility] Administered Medications: 11:03 Drug: NS 0.9% 500 ml Route: IV; Rate: bolus; Site: left forearm; jd3 12:00 Follow up: Response: No adverse reaction; IV Status: Completed infusion; IV Intake: jd3 500ml 11:04 Drug: Reglan (metoCLOPramide) 20 mg Route: IVP; Site: left forearm; jd3 12:00 Follow up: Response: No adverse reaction jd3 11:04 Drug: Ativan (LORazepam) 1 mg Route: IVP; Site: left forearm; jd3 12:00 Follow up: Response: No adverse reaction jd3 11:04 Drug: diphenhydrAMINE 25 mg Route: IVP; Site: left forearm; jd3 12:00 Follow up: Response: No adverse reaction jd3 11:52 Drug: Bentyl (dicyclomine) 20 mg Route: IM; Site: right deltoid; vg1 12:50 Follow up: Response: No adverse reaction jd3 12:22 Drug: Demerol (meperidine) 50 mg Route: IVP; Site: left forearm; jd3 13:20 Follow up: Response: No adverse reaction; RASS: Alert and Calm (0) jd3 12:56 Drug: Phenergan (promethazine) 12.5 mg Route: IVP; Site: left forearm; jd3 13:27 Follow up: Response: No adverse reaction jd3 13:00 Drug: Demerol (meperidine) 50 mg Route: IVP; Site: left forearm; jd3 13:27 Follow up: Response: No adverse reaction; RASS: Alert and Calm (0) jd3 Disposition: 15:21 Co-signature as Attending Physician, Ihsan Song MD. rn Disposition: 09/30/20 13:12 Discharged to Home. Impression: Vomiting, unspecified, Diarrhea, unspecified. - Condition is Stable. - Discharge Instructions: Food Choices to Help Relieve Diarrhea, Adult, Diarrhea, Adult, Nausea and Vomiting, Adult. - Prescriptions for Bentyl 20 mg Oral Tablet - take 2 tablet by ORAL route every 6 hours As needed; 40 tablet. promethazine 25 mg Oral Tablet - take 1 tablet by ORAL route every 6 hours As needed; 20 tablet. - Medication Reconciliation Form, Thank You Letter, Antibiotic Education, Prescription Opioid Use form. - Follow up: Private Physician; When: 2 - 3 days; Reason: Recheck today's complaints, Continuance of care, Re-evaluation by your physician. Signatures: Dispatcher [employer] EDMS Monroe Lopez PA PA jmm Nieto, Roman, MD MD rn Davies, Jonathon, RN RN jd3 Garcia, Victoria, RN RN vg1 Corrections: (The following items were deleted from the chart) 13: 13:12 09/30/2020 13:12 Discharged to Home. Impression: Vomiting, unspecified; Diarrhea, jd3 unspecified. Condition is Stable. Forms are Medication Reconciliation Form, Thank You Letter, Antibiotic Education, Prescription Opioid Use. Follow up: Private Physician; When: 2 - 3 days; Reason: Recheck today's complaints, Continuance of care, Re-evaluation by your physician. daniel
[2020-09-30 13:51] VITALS: TEMP 97
[2020-09-30 13:57] VITALS: O2SAT 100
[2020-09-30 14:00] VITALS: BP 132/64
== END 2020-09-30 13:31 | disposition home or self-care (01) ==
LOC: ER 09:59
DX: R19.7 Diarrhea, unspecified (principal); F31.9 Bipolar disorder, unspecified; J44.9 Chronic obstructive pulmonary disease, unspecified; Z85.528 Personal history of other malignant neoplasm of kidney; Z90.5 Acquired absence of kidney; Z88.0 Allergy status to penicillin; Z88.5 Allergy status to narcotic agent; Z88.6 Allergy status to analgesic agent; Z88.8 Allergy status to other drugs, medicaments and biological substances; Z91.048 Other nonmedicinal substance allergy status
CPT/HCPCS: 96361; 85025; 80048; 36415; 80076; 83690; 74176; 96375; 96372; 96374; 99284; J2765; J2550; J0500; J1200; J2175 ×2; J7040

== ENCOUNTER 2020-11-20 14:15 | Emergency (ER) | payer OTHER ==
--- OUTSIDE RECORDS SUMMARY | 2020-11-20 14:25 | XMS REPORT | Continuity of Care Document ---
:[address] [facility] t Address [address] [place] [address] Care Team Providers Name Role Phone Cheyanne Whittaker Attending Clinician Unavailable Clause DPAdryan C Attending Clinician Doctor Unassigned, Name Attending Clinician Unavailable Lab, - Attending Clinician Unavailable Cheyanne Whittaker Admitting Clinician Unavailable Matias TREJO Admitting Clinician Payers Payer Name Policy Type Policy Number Effective Date Expiration Date S ource Problems This patient has no known problems. Allergies, Adverse Reactions, Alerts Allergy Allergy Status Severity Reaction(s) Onset Inactive Treating Comm ents Source Name Type Date Date Clinician aspirin DA Active SV 2020-0 [facility] 4-18 [place] 00:00: [address] Iodinate DA Active U [facility] d 4-05 [place] Contrast 00:00: [facility] Media 00 [facility] NSAIDS DA Active U [facility] (Non-Remigio 4-05 [place] roidal 00:00: [facility] Anti-Inf 00 [facility] guaifene DA Active U 2021-0 [facility] sin 4-05 [place] 00:00: [facility] iodine DA Active U 2020-0 [facility] 4-05 [place] 00:00: [address] morphine DA Active U 2020-0 [facility] 4-05 [place] 00:00: [address] aspirin DA Active U 2020-0 [facility] 4-05 [place] 00:00: [address] hydromor DA Active U 2020-0 [facility] phone 4- [place] 00:00: [facility] ondanset DA Active U 2020-0 [facility] abdulaziz 4- [place] 00:00: [address] penicill DA Active U 2020-0 [facility] in G 08-05 [place] 00:00: [address] No Known DA Active U 2020-0 [facility] Allergie 08-04 [place] s 00:00: [address] fentanyl DA Active [place] 2019-0 [facility] 5- [place] 00:00: d 00 [facility] Iodinate DA Active SV 2019- [facility] d 05-03 Clear Contrast 00:00: [place] [employer] 00 [facility] NSAIDS DA Active SV 2018-1 [facility] (Non-Remigio 05-03 Clear roidal 00:00: [place] Anti-Inf 00 [facility] Penicill DA Active SV 2019-1 [facility] ins 05-03 Clear 00:00: [place] 00 [facility] morphine DA Active SV 2019- [facility] 05-03 Clear 00:00: [place] 00 [facility] aspirin DA Active U 2019-1 [facility] 05-03 Clear 00:00: [place] 00 [facility] hydromor DA Active SV 2019-1 [facility] phone 05-03 Clear 00:00: [place] 00 [facility] shellfis FA Active SV 2019-1 [facility] h 05-03 Clear derived 00:00: [place] 00 [facility] No Known DA Active U 2008-0 [facility] Contrast - [place] Allergie 00:00: d s 00 [facility] [place] No Known DA Active U 2008-0 [facility] Food 12-11 [place] Allergie 00:00: d s 00 [facility] [place] No Known DA Active U 2008-0 [facility] Other - [place] Allergie 00:00: d s [facility] PENICILL DA Active U 2008-0 [facility] IN 12-11 [place] 00:00: d 00 [facility] penicill DA Active U 2003-0 [facility] in G 09-05 [place] 00:00: d 00 [facility] Medications This patient has no known medications. Procedures This patient has no known procedures. Encounters Start End Encounter Admission Attending Care Care Encounter Source Date/Time Date/Time Type Type Clinicians Facility Department ID 2020-08-04 2020-08-22 Inpatient EM Panfilo, [facility]CACR INTM.01 [id number] 923-2 [facility] 23:09:00 11:10:00 Anthony [id number] [facility] 2020-05-22 2020-05-22 Hospital [facility], [facility] 1.2.840.114 [id number] 07:34:00 15:25:00 Encounter Jigar Saeed Health 350.1.13.10 Clear 4.2.7.2.686 [place] [phone] Hospital 049 ([facility]) 2020-05-22 2020-05-22 Surgery [facility] 1.2.840.114 [id number] 14 09:47:00 12:18:00 Health 350.1.13.10 Clear 4.2.7.2.686 [place] [id number] Hospital 020 ([facility]) 2020-05-22 2020-05-22 Orders Doctor VIPUL 1.2.840.114 [id number] 00:00:00 00:00:00 Only Unassigned, MARCUS 350.1.13.10 [facility] 4.2.7.2.686 [id number] [id number] 2020-05-22 2020-05-22 Prep For VIPUL [place] 1.2.840.114 [id number] 00:00:00 00:00:00 Surgery Jigar Saeed MARCUS 350.1.13.10 HOSPITAL 4.2.7.2.686 [id number] 015 2020-05-22 2020-05-22 Prep For VIPUL [place] 1.2.840.114 [id number] 00:00:00 00:00:00 Surgery Jigar Saeed MARCUS 350.1.13.10 HOSPITAL 4.2.7.2.686 [id number] 015 2020-05-21 2020-05-21 Hospital Clause, [facility] 1.2.840.114 [id number] 570 13:50:34 23:59:00 Encounter Jigar Saeed Health 350.1.13.10 Clear 4.2.7.2.[address] [id number] [facility] 807 ([facility]) 2020-05-21 2020-05-21 Supervisor [facility] 1.2.840.114 [id number] 13:50:10 14:05:10 Visit Health 350.1.13.10 Clear 4.2.7.2.[address] [id number] [facility] 353 ([facility]) Results Test Description Test [...] this result as normal/abnormal . BASIC METABOLIC [id number] 04:25:00 Test Item Value Reference Range Interpretation [...] (test code = MG Index/DL The system [employer] HEMINDEX) generated this result transmit cipriano reference [...] this result as normal/abnormal . CBC W/AUTO [id number] 04:05:00 Test Item Value Reference Range Interpretation [...] 0.00 K/mm3 0.0-0.05 N NRBC#) GLUCOSE BEDSIDE [id number] 18:16:00 Test Item Value Reference Range Interpretation Comments GLUCOSE BEDSIDE TESTING (test code 117 MG/DL 70-119 N = GLUBED) GLUCOSE BEDSIDE [id number] 11:15:00 Test Item Value Reference Range Interpretation Comments GLUCOSE BEDSIDE TESTING (test code 126 MG/DL 70-119 H = GLUBED) BASIC METABOLIC [id number] 09:30:00 Test Item Value Reference Range Interpretation [...] (test code = MG Index/DL The system [employer]) generated this result transmit cipriano reference range [...] this result as normal/abnormal . CBC W/AUTO [id number] 09:18:00 Test Item Value Reference Range Interpretation [...] 0.00 K/mm3 0.0-0.05 N NRBC#) GLUCOSE BEDSIDE [id number] 16:12:00 Test Item Value Reference Range Interpretation Comments GLUCOSE BEDSIDE TESTING (test code 127 MG/DL 70-119 H = GLUBED) GLUCOSE BEDSIDE [id number] 10:33:00 Test Item Value Reference Range Interpretation Comments GLUCOSE BEDSIDE TESTING (test code 145 MG/DL 70-119 H = GLUBED) BASIC METABOLIC [id number] 08:44:00 Test Item Value Reference Range Interpretation [...] (test code = MG Index/DL The system [facility] [employer] HEMINDEX) generated this result transmit cipriano reference [...] this result as normal/abnormal . BASIC METABOLIC [id number] 08:41:00 Test Item Value Reference Range Interpretation [...] (test code = MG Index/DL The system [employer]) generated this result transmit cipriano reference range [...] this result as normal/abnormal . CBC W/AUTO [id number] 07:50:00 Test Item Value Reference Range Interpretation [...] = 0.00 K/mm3 0.0-0.05 N NRBC#) - CHEST 1 [id number] 07:11:00 [facility]: MARCELLE MEDINAELLE : 1970 Sex: F FAX: Anthony Domingo MD [phone] [place]: St: [facility] FAX: Raven Lerma MD Patient Name: MARCELLE MEDINA Unit No: [id number] EXAMS: CPT CODE: [id number] XR CHEST 1 V 72174 - XR CHEST 1 V INDICATION:CHF LOCATION: T18 Comparison 05/21/2019 Mild cardiomegaly. Persistent mild atelectasisand pulmonary venous congestion in lower lobes. Trace effusions not excluded. Bony thorax unremarkable. IMPRESSION: No significant change. at 0711 Reported and signed by: Vipul Bassett D.O. CC: Anthony Whittaker MD; Raven Cat MD Dictated Date/Time: 08/20/2020 (710)Technologist: Fanny Hoang Transcribed Date/Time: 08/20/2020 (710) By: Zaire Orig Print D/T: S: 08/20/2020 (0714) [facility] Quintin NAME: DONAMitaliYvonneMARCELLE ALMENDAREZ MEDICAL IMAGING PHYS: LILLY Cat MD,Raven [place] [address] [place] [address] BLVD : 1970 AGE: 50 SEX:F [place], [place] [id number] LOC: B.305 W PHONE #: [phone] EXAM DATE: 08/20/2020 STATUS: ADM IN FAX #: [phone] RAD NO: DC Dt: PAGE 1 Signed ReportBASIC METABOLIC [id number] 13:57:00 Test Item Value Reference Range Interpretation [...] message] (test code = Index/DL The system [employer] HEMINDEX) generated this result transmit cipriano reference [...] result as normal/abnormal . POC ARTERIAL BLOOD [id number] 09:58:00 Test Item Value Reference Range Interpretation Comments POC ARTERIAL BLOOD 7.428 pH units 7.35-7.45 N GAS PH (test code = POCPHA) POC ARTERIAL BLOOD 50.2 mmHg 35.0-48.0 H GAS PCO2 (test code = RXHWOR8H) POC TCO2 ARTERIAL 32.6 MMOL/L 22.0-29.0 H (test code = POCTCO2) ARTERIAL BLOOD GAS 98.3 mmHg 83.0-108.0 N PO2 (test code = ZMKGB3Y) POC HCO3 ARTERIAL 33.2 MMOL/L 21.0-28.0 H (test code = FOEBVT8E) POC BASE EXCESS 7.6 MMOL/L See_Comment H [...] code = Descript POCSAMPLE) POC VENOUS BLOOD [id number] 09:58:00 Test Item Value Reference Range Interpretation Comments POC CALCIUM (test code = 1.15 MMOL/L 1.15-1.33 N POCCA) POC VENOUS BLOOD GAS PH (test 7.376 pH units 7.32-7.43 N code = POCPHV) POC VENOUS BLOOD GAS PCO2 57.6 mmHg 41.0-51.0 H (test code = VUYGJL2M) POC VENOUS BLOOD GAS PO2 41.8 mmHg 10.0-50.0 N (test code = JSSNX6P) POC HCO3 VENOUS (test code = 33.8 MMOL/L 22.0-29.0 H WVNXBT6W) POC BASE EXCESS VENOUS (test 7.0 MMOL/L -2.0-3.0 H code = POCBEV) POC O2 SATURATION VENOUS 74 % 60-80 N (test code = MEGV5MJ) VENOUS BLOOD GAS FIO2 (test 100 % [...] Descript Specimen = POCSAMPLE) POC VENOUS BLOOD [id number] 09:41:00 Test Item Value Reference Range Interpretation Comments POC CALCIUM (test code = 1.23 MMOL/L 1.15-1.33 N POCCA) POC VENOUS BLOOD GAS PH (test 7.390 pH units 7.32-7.43 N code = POCPHV) POC VENOUS BLOOD GAS PCO2 58.9 mmHg 41.0-51.0 H (test code = LILFDO4U) POC VENOUS BLOOD GAS PO2 40.9 mmHg 10.0-50.0 N (test code = YZRAS8E) POC HCO3 VENOUS (test code = 35.6 MMOL/L 22.0-29.0 H GJULWF0N) POC BASE EXCESS VENOUS (test 8.7 MMOL/L -2.0-3.0 H code = POCBEV) POC O2 SATURATION VENOUS 74 % 60-80 N (test code = LJHG4SL) PT. HGB (test code = PHGBVBG) 12.3 [...] Descript Specimen = POCSAMPLE) POC VENOUS BLOOD [id number] 09:41:00 Test Item Value Reference Range Interpretation Comments POC CALCIUM (test code = 1.24 MMOL/L 1.15-1.33 N POCCA) POC VENOUS BLOOD GAS PH (test 7.394 pH units 7.32-7.43 N code = POCPHV) POC VENOUS BLOOD GAS PCO2 58.4 mmHg 41.0-51.0 H (test code = VYBTKS1L) POC VENOUS BLOOD GAS PO2 40.5 mmHg 10.0-50.0 N (test code = KQKVT0X) POC HCO3 VENOUS (test code = 35.7 MMOL/L 22.0-29.0 H IRUDZR3X) POC BASE EXCESS VENOUS (test 8.9 MMOL/L -2.0-3.0 H code = POCBEV) POC O2 SATURATION VENOUS 74 % 60-80 N (test code = CKLV5CB) PT. HGB (test code = PHGBVBG) 12.2 [...] Specimen = POCSAMPLE) - XR CHEST 1 [id number] 07:15:00 [facility]: MARCELLE MEDINA : 1970 Sex: F FAX: Ruthy Boateng MD [phone] [place]: St: ADM FAX: Anthony Galan MD [phone] Patient Name: MARCELLE MEDINA Unit No: [id number] EXAMS: CPT CODE: [id number] XR CHEST 1 V 47234 - XR CHEST 1 V INDICATION:CHF LOCATION: [...] By: Zaire Orig Print D/T: S: 08/19/2020 (0718) GALDINO Quintin NAME: MARCELLE MEDINA MEDICAL IMAGING PHYS: AHMRA.03 - Ruthy Boateng MD [address] [place] [address] BLVD : 1970 AGE: 50 SEX: [place] [address] LOC: Mcih.ICU13 W PHONE #: [phone] EXAM DATE: 08/19/2020 STATUS: ADM IN FAX #: [phone] RADNO: ERYN Dt: PAGE 1 Signed ReportBASIC METABOLIC [id number] 06:54:00 Test Item Value Reference Range Interpretation Comments SODIUM (test code = 134.0 mmol/L 133-144 N NA) POTASSIUM (test 2.5 mmol/L 3.5-5.1 LL ON 08/19/20 AT 0653, code = K) B.LAB.DIRECTOR OF INSTITUTIONAL RESEARCH AGUILAR D TO CABRERA JANIE. The report was conf irmed by read [...] message] (test code = Index/DL The system [employer]) generated this result transmit cipriano reference range [...] to interpret this result as normal/abnormal . [id number] 06:54:00 Test Item Value Reference Range Interpretation Comments MAGNESIUM (test code = MAG) 2.0 MG/DL 1.6-2.6 N CBC W/AUTO [id number] 06:03:00 Test Item Value Reference Range Interpretation [...] = 0.02 K/mm3 0.0-0.05 N NRBC#) VANCOMYCIN [id number] 08:57:00 Test Item Value Reference Range Interpretation [...] every 48H while on Vancomycin. Comments to Web Site Developer: BEFORE 9AM DOSE ON 08/18CBC W/AUTO [id number] 07:08:00 Test Item Value Reference Range Interpretation [...] 0.02 K/mm3 0.0-0.05 N NRBC#) BASIC METABOLIC [id number] 07:06:00 Test Item Value Reference Range Interpretation [...] message] (test code = Index/DL The system [employer] HEMINDEX) generated this result transmit cipriano [...] to interpret this result as normal/abnormal . [id number] 07:06:00 Test Item Value Reference Range Interpretation Comments MAGNESIUM (test code = MAG) 2.0 MG/DL 1.6-2.6 N - XR CHEST 1 [id number] 06:31:00 [facility]: MARCELLE MEDINA : 1970 Sex: F FAX: Anthony Domingo MD [phone] [place]: St: [facility] FAX: Raven Lerma MD Patient Name: MARCELLE MEDINA Unit No: [id number] EXAMS: CPT CODE: [id number] XR CHEST 1 V 38288 Single View Chest. Location: ClinicalIndication: 50-year-old with [...] MD; Raven Cat MD Dictated Date/Time: 08/18/2020 (06)Technologist: Toyin Jamil; Cindy Couch TranscribedDate/Time: 08/18/2020 (06) By: [email or web address] Orig Print D/T: S: 08/18/2020 (0634) GALDINO [place] NAME: MARCELLE MEDINA MEDICAL IMAGING PHYS: LILLY Cat MD,Raven [address] : 1970 AGE: 50 SEX: F [place], [place] [address] LOC: B.ICU13 W PHONE #: [phone] EXAM DATE: 08/18/2020 STATUS: ADM IN FAX #: [phone] RAD NO: DC Dt: PAGE 1 Signed ReportGLUCOSE BEDSIDE [id number] 10:34:00 Test Item Value Reference Range Interpretation Comments GLUCOSE BEDSIDE TESTING (test code 121 MG/DL 70-119 H = GLUBED) ARTERIAL BLOOD [id number] 10:27:00 Test Item Value Reference Range Interpretation Comments ARTERIAL BLOOD GAS 7.53 pH units 7.35-7.45 H PH (test code = PHA) ARTERIAL BLOOD GAS 49 mmHg 35-45 H PCO2 (test code = PCO2A) ARTERIAL BLOOD GAS 57 mmHg 80-100 LL ON AT PO2 (test code = 1026, B.CPS .TJK PO2A) CALLED TO HARDIK GALINDO. The report was confirmed by re ad back protocols Y,N: Y. BICARBONATE TOTAL 40.7 mmol/L 22.0-26.0 H HCO3 (test code = HCO3) BASE EXCESS (test 18.0 mmol/L -3.0-3.0 H code = OLAG) FIO2 (test code = 50 % (calc) 21-100 N FIO2A) MODALITY (test code CPAP COMMENT DESCRIPTION = MOD) PaO2/FiO2 (test 114.00 mm/Hg code = RBF5FTR1) ABG PEEP (test code 7 cm H20 [...] code = O2S/C) - XR CHEST 1 [id number] 07:42:00 [facility] CON[facility]EN[facility]: CAROL MARCELLE ALMENDAREZ : 1970 Sex: F FAX: Ruthy Boateng MD [phone] [place]: C St: ADM FAX: Anthony Galan MD [phone] Patient Name: CAROLMARCELLE Unit No: [id number] EXAMS: CPT CODE: [id number] XR CHEST 1 V 26002 CHEST 1 VIEW: INDICATION: vent COMPARISON: Comparison [...] 08/17/2020 (0742)Technologist: Toyin Jamil Transcribed Date/Time: 08/17/2020 (0742) By: [email or web address] Orig Print D/T: S: 08/17/2020 (0745) [facility] Quint[facility] NAME: CAROLJOSEFINACheyanne ALMENDAREZ MEDICAL IMAGING PHYS: AHMRA.03 - Ruthy Boateng MD [address] [place] [address] BLVD : 1970 AGE: 50 SEX: F [place], [place] [address] LOC: B.ICU13 W PHONE #: [phone] EXAM DATE: 08/17/2020 STATUS: ADM IN FAX #: [phone] RAD NO: DC Dt: PAGE 1 Signed ReportBASIC METABOLIC [id number] 07:24:00 Test Item Value Reference Range Interpretation [...] message] (test code = Index/DL The system [employer]) generated this result transmit cipriano reference range [...] to interpret this result as normal/abnormal . [id number] 07:24:00 Test Item Value Reference Range Interpretation Comments MAGNESIUM (test code = MAG) 2.3 MG/DL 1.6-2.6 N CBC W/AUTO [id number] 07:08:00 Test Item Value Reference Range Interpretation [...] 0.00 K/mm3 0.0-0.05 N NRBC#) GLUCOSE BEDSIDE [id number] 21:36:00 Test Item Value Reference Range Interpretation Comments GLUCOSE BEDSIDE TESTING (test code 123 MG/DL 70-119 H = GLUBED) COVID 19 Asymptomatic IH [id number] 18:30:00 Test Item Value Reference Range Interpretation Comments COVID 19 Asymptomatic IH AG (test Negative Neg code = COVNONPUIAG) GLUCOSE BEDSIDE [id number] 13:07:00 Test Item Value Reference Range Interpretation Comments GLUCOSE BEDSIDE TESTING (test code 182 MG/DL 70-119 H = GLUBED) - CT C-SPINE W/O [id number] 11:35:00 [facility]: MARCELLE MEDINA : 1970 Sex: F Patient Name: MARCELLE MEDINA Unit No: [id number] EXAMS: CPT CODE: [id number] CT C-SPINE W/O CONT 90092 REASON FOR EXAM: COPD, intubation, CT cervical [...] or pneumothorax. NG tube in place. Location: [facility] at 1135 Reported and signed by: Jerrell Avalos M.D CC: Anthony Whittaker MD Dictated Date/Time: 08/16/2020 (1132) Technologist: Valarie Romano - Barney CTDI: 23.67 DLP: 510.29 Trnscrpt: 08/16/2020 (1138) [email or web address] GALDINO Ribeiro NAME: MARCELLE MEDINA MEDICAL IMAGING PHYS: Anthony Cuevas MD [address] [place], [place] [address]VD : 1970 AGE: 50 SEX: Cb [place]IRO [place] [address] LOC: B.ICU13 W PHONE #: [phone] EXAM DATE: 08/16/2020 STATUS: ADM IN FAX #: [phone] RAD #: D/C DT PAGE 1 Signed Report Patient Name: MARCELLE MEDINA Unit No: [id number] EXAMS: CPT CODE: [id number] CT C-SPINE W/O CONT 16288 <Continued> Orig Print D/T: S: 08/16/2020 (1136) GALDINO Ribeiro NAME: MARCELLE MEDINA TANES[facility] PHYS: Anthony Cuevas MD [address] [place] [address] : 1970 AGE: 50 SEX: Cb [place] [address] LOC: B.ICU13 W PHONE #: [phone] EXAM DATE: 08/16/2020 STATUS: ADM IN FAX #: [phone] RAD #: D/C DT PAGE 2 Signed ReportBAP[facility]IST [facility] W/MANUAL [id number] 07:17:00 Test Item Value Reference Range Interpretation [...] CRITERIA (test code = MDIFF) DIFF/SCN WBC [id number] 07:17:00 Test Item Value Reference Range Interpretation [...] code = PLTEST) - XR CHEST 1 [id number] 07:06:00 [facility] CONROEName: RUTHSALLYMARCELLE MAY : 1970 Sex: F FAX: Ruthy Boateng MD [phone] [place]: C St: [facility] FAX: Anthony Galan MD [phone] Patient Name: CAROLMARCELLE Unit No: [id number] EXAMS: CPT CODE: [id number] XR CHEST 1 V 30291 EXAM: - XR CHEST 1 V INDICATION: [...] MD; Anthony Whittaker MD Dictated Date/Time: 08/16/2020 (705)Technologist: Fanny Hoang Transcribed Date/Time: 08/16/2020 (705) By: [email or web address] Orig Print D/T: S: 08/16/2020 (0709) GALDINO Ribeiro NAME: MARCELLE MEDINA MEDICAL IMAGING PHYS: AHMRA.03 - Ruthy Boateng MD [address] [place] [address] : 1970 AGE: 50 SEX: F [place], [place] [address]EAUF NO: [id number] LOC: B.ICU13 W PHONE #: [phone] EXAM DATE: 08/16/2020 STATUS: ADM IN FAX #: [phone] RAD NO: DC Dt: PAGE 1 Signed ReportC W/MANUAL [id number] 04:54:00 Test Item Value Reference Range Interpretation [...] CRITERIA (test code = MDIFF) DIFF/SCN WBC [id number] 04:54:00 Test Item Value Reference Range Interpretation [...] SCAN ADEQUATE code = PLTEST) CBC W/MANUAL [id number] 04:54:00 Test Item Value Reference Range Interpretation [...] CRITERIA (test code = MDIFF) DIFF/SCN WBC [id number] 04:54:00 Test Item Value Reference Range Interpretation [...] SCAN ADEQUATE code = PLTEST) BASIC METABOLIC [id number] 04:51:00 Test Item Value Reference Range Interpretation [...] this result as normal/abnormal . GLUCOSE BEDSIDE [id number] 04:41:00 Test Item Value Reference Range Interpretation Comments GLUCOSE BEDSIDE TESTING (test code 138 MG/DL 70-119 H = GLUBED) ARTERIAL BLOOD [id number] 04:28:00 Test Item Value Reference Range Interpretation [...] MOD) PaO2/FiO2 (test 81.00 mm/Hg code = PNC1ZJE6) ABG PATIENT RESP 16 /MIN PT RespRate [...] (calc) 95-100 N code = O2S/C) VANCOMYCIN [id number] 00:59:00 Test Item Value Reference Range Interpretation Comments VANCOMYCIN TROUGH 28.9 mcG/ML 02-19 08/16/20 0 057, (test code = VANCT) [...] every 48H while on Vancomycin. GLUCOSE BEDSIDE [id number] 20:20:00 Test Item Value Reference Range Interpretation Comments GLUCOSE BEDSIDE TESTING (test code 159 MG/DL 70-119 H = GLUBED) ARTERIAL BLOOD [id number] 14:28:00 Test Item Value Reference Range Interpretation Comments ARTERIAL BLOOD GAS 7.43 pH units 7.35-7.45 N PH (test code = PHA) ARTERIAL BLOOD GAS 55 mmHg 35-45 H PCO2 (test code = PCO2A) ARTERIAL BLOOD GAS 55 mmHg 80-100 LL ON AT PO2 (test code = 1428, B.CPS .JJS PO2A) CALLED TO DR PORTILLO MED. The report wa s confirmed by re ad back protocols Y,N: Y. BICARBONATE TOTAL 36.9 mmol/L 22.0-26.0 H HCO3 (test code = HCO3) BASE EXCESS (test 12.6 mmol/L -3.0-3.0 H code = OLGA) FIO2 (test code = 60 % (calc) 21-100 N FIO2A) MODALITY (test code SIMV COMMENT DESCRIPTION = MOD) PaO2/FiO2 (test 91.66 mm/Hg code = HEA7MXM1) ABG PATIENT RESP 16 /MIN PT RespRate [...] L code = O2S/C) Covid 19 InHouse [id number] 13:24:00 Test Item Value Reference Range Interpretation Comments Covid 19 Negative Negative A negative resu lt does not InHouse NTX preclude the SA RS-COV-2 (test code = viralinfection and should not be AIJTI14OPMHK) used as the so le basis forpatient [...] performancechar acteristics were determined by [facility]. Thi s test has notbeen FDA [...] defined by CDC? YesDate of Symptom Onset: [id number] due to COVID? YesIn ICU due to COVID? YesResident in a congregate care setting? No? NoAge at collection: Y GLUCOSE BEDSIDE [id number] 11:30:00 Test Item Value Reference Range Interpretation Comments GLUCOSE BEDSIDE TESTING (test code 165 MG/DL 70-119 H = GLUBED) - XR CHEST 1 [id number] 07:04:00 [facility] CON[facility]EName: MARCELLE MEDINA : 1970 Sex: F FAX: Ruthy Boateng MD [phone] [place]: St: ADM FAX: Anthony Galan MD [phone] Patient Name: MARCELLE MEDINA Unit No: [id number] EXAMS: CPT CODE: [id number] XR CHEST 1 V 21651 EXAM: - XR CHEST 1 V INDICATION: [...] Orig Print D/T: S: 08/15/2020 (0707) GALDINO Quintin NAME: MARCELLE MEDINA MEDICAL IMAGING PHYS: AHMRA.03 - Ruthy Boateng MD [address] [place] [address] : 1970 AGE: 50 SEX: [place] [address] LOC: SantiagoICU13W PHONE #: [phone] EXAM DATE: 08/15/2020 STATUS: ADM IN FAX #: [phone] RAD NO: DC Dt: PAGE 1 Signed ReportCBC W/MANUAL [id number] 06:32:00 Test Item Value Reference Range Interpretation [...] CRITERIA (test code = MDIFF) DIFF/SCN WBC [id number] 06:32:00 Test Item Value Reference Range Interpretation [...] ADEQUATE (test code = PLTEST) BASIC METABOLIC [id number] 05:34:00 Test Item Value Reference Range Interpretation [...] (test code = MG Index/DL The system [employer]) generated this result transmit cipriano reference range [...] this result as normal/abnormal . BASIC METABOLIC [id number] 05:22:00 Test Item Value Reference Range Interpretation [...] (test code = MG Index/DL The system [facility]) generated this result transmit cipriano reference range [...] this result as normal/abnormal . CBC W/MANUAL [id number] 04:57:00 Test Item Value Reference Range Interpretation [...] CRITERIA (test code = MDIFF) DIFF/SCN WBC [id number] 04:57:00 Test Item Value Reference Range Interpretation [...] SCAN ADEQUATE code = PLTEST) CBC W/MANUAL [id number] 04:57:00 Test Item Value Reference Range Interpretation [...] CRITERIA (test code = MDIFF) DIFF/SCN WBC [id number] 04:57:00 Test Item Value Reference Range Interpretation [...] SCAN ADEQUATE code = PLTEST) ARTERIAL BLOOD [id number] 04:44:00 Test Item Value Reference Range Interpretation [...] DESCRIPTION PaO2/FiO2 (test code = 101.66 mm/Hg [id number]) ABG PATIENT RESP RATE (test 22 /MIN PT RespRate code = RRPATA) ABG TIDAL VOLUME (test code 500 ML = TVA) ABG PEEP (test code = 8 cm H20 0.0-99.9 PEEPA) ABG SITE (test code = RT RADIAL ARTKIT DESCRIPTION SITEA) MODIFIED DAINA'S (test code POSITIVE Circ.CHK POSITIVE = MODALL) O2 SATURATION (test code = 93 % (calc) 95-100 L O2S/C) GLUCOSE BEDSIDE [id number] 21:22:00 Test Item Value Reference Range Interpretation Comments GLUCOSE BEDSIDE TESTING (test code 107 MG/DL 70-119 N = GLUBED) VANCOMYCIN [id number] 17:10:00 Test Item Value Reference Range Interpretation [...] every 48H while on Vancomycin. BASIC METABOLIC [id number] 17:05:00 Test Item Value Reference Range Interpretation [...] message] (test code = Index/DL The system [employer]) generated this result transmit cipriano reference range [...] this result as normal/abnormal . BASIC METABOLIC [id number] 17:04:00 Test Item Value Reference Range Interpretation [...] message] (test code = Index/DL The system [employer]) generated this result transmit cipriano reference range [...] this result as normal/abnormal . GLUCOSE BEDSIDE [id number] 16:50:00 Test Item Value Reference Range Interpretation Comments GLUCOSE BEDSIDE TESTING (test code 155 MG/DL 70-119 H = GLUBED) GLUCOSE BEDSIDE [id number] 14:19:00 Test Item Value Reference Range Interpretation Comments GLUCOSE BEDSIDE TESTING (test code 123 MG/DL 70-119 H = GLUBED) - XR CHEST 1 [id number] 07:56:00 [facility] CON[facility]EN[facility]: MARCELLE MEDINA : 1970 Sex: F FAX: Ruthy Boateng MD [phone] [place]: St: [facility] FAX: Anthony Galan MD [phone] Patient Name: MARCELLE MEDINA Unit No: [id number] EXAMS: CPT CODE: [id number] XR CHEST 1 V [id number] EXAM: - XR CHEST 1 V INDICATION: covid/vent Location: T 18. COMPARISON: 08/13/2020 TECHNIQUE: Frontal view of thechest. FINDINGS: Yxhwc-zo-ozzpdppt bilateral opacities appear unchanged.She appearance of endotracheal tube and NG tube. Cardiomediastinal silhouette and osseous structures appear unremarkable. No pleural effusion appreciated. IMPRESSION: Unchanged bilateral opacities. at 0756 Reported and signed by: Marcelo Henriquez MD CC:Ruthy Boateng MD; Anthony Whittaker MD Dictated Date/Time: 08/14/2020 (0756)Technologist: Toyin Jamil; Cindy Couch Transcribed Date/Time: 08/14/2020 (0756) By: [email or web address] Orig Print D/T: S: 08/14/2020 (0800) [facility] NAME: CAROLJOSEFINACheyanne ALMENDAREZ MEDICAL IMAGING PHYS: AHMRA.03 - Ruthy Boateng MD [address] [place] [address] : 1970 AGE: 50 SEX: F [place], [place] [address] LOC: B.ICU13 W PHONE #: [phone] EXAM DATE: 08/14/2020 STATUS: ADM IN FAX #: [phone] RAD NO: DC Dt: PAGE 1 Signed ReportCOMPREHENSIVE METABOLIC [id number] 04:53:00 Test Item Value Reference Range Interpretation [...] (test code = MG Index/DL The system [email or web address] HEMINDEX) generated this result transmit cipriano reference [...] to interpret this result as normal/abnormal . [id number] 04:53:00 Test Item Value Reference Range Interpretation Comments TRIGLYCERIDES (test code 76 MG/DL 0-150 N Res ults may be = TRIG) depressed if pa evan is takingN-Acetylc ystein e (NAC) and Metamizole (Dipyrone). COMPREHENSIVE METABOLIC [id number] 04:50:00 Test Item Value Reference Range Interpretation [...] (test code = MG Index/DL The system [employer] HEMINDEX) generated this result transmit cipriano reference [...] to interpret this result as normal/abnormal . [id number] 04:50:00 Test Item Value Reference Range Interpretation Comments TRIGLYCERIDES (test code = TRIG) MG/DL 0-150 CBC W/AUTO [id number] 04:26:00 Test Item Value Reference Range Interpretation [...] 0.00 K/mm3 0.0-0.05 N NRBC#) ARTERIAL BLOOD [id number] 04:19:00 Test Item Value Reference Range Interpretation [...] DESCRIPTION PaO2/FiO2 (test code = 115.00 mm/Hg [id number]) ABG PATIENT RESP RATE (test 22 /MIN PT RespRate code = RRPATA) ABG TIDAL VOLUME (test code 500 ML = TVA) ABG PEEP (test code = 10.0 cm H20 0.0-99.9 PEEPA) ABG SITE (test code = RT RADIAL ARTKIT DESCRIPTION SITEA) MODIFIED DAINA'S (test code POSITIVE Circ.CHK POSITIVE = MODALL) O2 SATURATION (test code = 94 % (calc) 95-100 L O2S/C) GLUCOSE BEDSIDE [id number] 21:21:00 Test Item Value Reference Range Interpretation Comments GLUCOSE BEDSIDE TESTING (test code = 85 MG/DL 70-119 N GLUBED) AB HIV 1 12:07:00 Test Item Value Reference Range Interpretation Comments AB HIV 1 2 NonReactive SREEN NR This i s a screening (test code = test only A [id number]) Non-Reactive te st result does not exclude [...] onall Reactive test r esults. B-TYPE NATRIURETIC [id number] 11:37:00 Test Item Value Reference Range Interpretation Comments B-TYPE NATRIURETIC PEPTIDE < 30.00 PG/ML 0.00-100.00 N (test code = BNP) THYROID STIMULATING [id number] 11:05:00 Test Item Value Reference Range Interpretation Comments THYROID STIMULATING HORMONE 2.370 mc IU/ML 0.340-4.820 N (test code = TSH) BASIC METABOLIC [id number] 10:48:00 Test Item Value Reference Range Interpretation [...] (test code = MG Index/DL The system [employer]) generated this result transmit cipriano reference range [...] normal/abnormal . UA RFLX MICR CULT IF [id number] 10:46:00 Test Item Value Reference Range Interpretation [...] ated (test code = LUKASZ) message] T system which generated this result transmit cipriano [...] See_Comment [Automated ESTERASE DIPSTICK Leuk/mcL message] T he (test code = LEUU) system wh ich [...] CULT-N/A Criteria Indication for culture: RiskForSepsis-no oth [id number] 10:44:00 Test Item Value Reference Range Interpretation Comments AMMONIA (test code = AMM) 17.0 mcMOL/L 11.0-32.0 N - XR CHEST 1 [id number] 07:38:00 [facility] CONROEName: MARCELLE MEDINA : 1970 Sex: F FAX: Ruthy Boateng MD [phone] [place]: St: [facility] FAX: Anthony Galan MD [phone] Patient Name: MARCELLE MEDINA Unit No: [id number] EXAMS: CPT CODE: [id number] XR CHEST 1 V [id number] EXAM: - XR CHEST 1 V INDICATION: [...] [email or web address] Orig Print D/T: S: 08/13/2020 (0741) GALDINO Ribeiro NAME: MARCELLE MEDINA MEDICAL IMAGING PHYS: AHMRRuthy Ramos MD [address] [place] [address] BLVD : 1970 AGE: 50 SEX: F [place], [place] [address] LOC: B.ICU13 W PHONE #: [phone] EXAM DATE: 08/13/2020 STATUS: ADM IN FAX #: [phone] RAD NO: DC Dt: PAGE 1 Signed ReportGLUCOSE BEDSIDE TESTING 2020-08-13 07:33:00 Test Item Value Reference Range Interpretation Comments GLUCOSE BEDSIDE TESTING (test code 100 MG/DL 70-119 N = GLUBED) BASIC METABOLIC [id number] 06:07:00 Test Item Value Reference Range Interpretation [...] this result as normal/abnormal . BASIC METABOLIC [id number] 06:06:00 Test Item Value Reference Range Interpretation [...] (test code = Index/DL The system [employer] HEMINDEX) generated this result transmit cipriano reference [...] this result as normal/abnormal . CBC W/AUTO [id number] 05:48:00 Test Item Value Reference Range Interpretation [...] 0.00 K/mm3 0.0-0.05 N NRBC#) GLUCOSE BEDSIDE [id number] 05:20:00 Test Item Value Reference Range Interpretation Comments GLUCOSE BEDSIDE TESTING (test code 124 MG/DL 70-119 H = GLUBED) ARTERIAL BLOOD [id number] 04:10:00 Test Item Value Reference Range Interpretation [...] DESCRIPTION PaO2/FiO2 (test code = 111.66 mm/Hg [id number]) ABG PATIENT RESP RATE (test 22 /MIN PT RespRate code = RRPATA) ABG TIDAL VOLUME (test code 500 ML = TVA) ABG PEEP (test code = 12 cm H20 0.0-99.9 PEEPA) ABG SITE (test code = RT RADIAL ARTKIT DESCRIPTION SITEA) MODIFIED DAINA'S (test code POSITIVE Circ.CHK POSITIVE = MODALL) O2 SATURATION (test code = 94 % (calc) 95-100 L O2S/C) GLUCOSE BEDSIDE [id number] 23:47:00 Test Item Value Reference Range Interpretation Comments GLUCOSE BEDSIDE TESTING (test code 116 MG/DL 70-119 N = GLUBED) GLUCOSE BEDSIDE [id number] 16:55:00 Test Item Value Reference Range Interpretation Comments GLUCOSE BEDSIDE TESTING (test code 133 MG/DL 70-119 H = GLUBED) GLUCOSE BEDSIDE [id number] 13:04:00 Test Item Value Reference Range Interpretation Comments GLUCOSE BEDSIDE TESTING (test code 122 MG/DL 70-119 H = GLUBED) - XR CHEST 1 [id number] 11:39:00 [facility] CONROEName: MARCELLE MEDINA : 1970 Sex: F FAX: Ruthy Boateng MD [phone] [place]: St: [facility] FAX: Anthony Galan MD [phone] Patient Name: MARCELLE MEDINA Unit No: [id number] EXAMS: CPT CODE: [id number] XR CHEST 1 V 17501 CHEST 1 VIEW: INDICATION: ET tube adjustment [...] By: [email or web address] Orig Print D/T: S: 08/12/2020 (1143) [facility] MEDICAL IMAGING PHYS: AHMRA.03 - Ruthy Boateng MD [address] [place] [address] BL : 1970 AGE: 50 SEX: F [place], [place] [id number] LOC: B.ICU13 W PHONE #: [phone] DATE: 08/12/2020 STATUS: ADM IN FAX #: [phone] RAD NO: DC Dt: PAGE 1 Signed [id number] 09:51:00 Test Item Value Reference Range Interpretation Comments MAGNESIUM (test code = MAG) 2.2 MG/DL 1.6-2.6 N BASIC METABOLIC [id number] 06:26:00 Test Item Value Reference Range Interpretation [...] message] (test code = Index/DL The system [employer] HEM[employer]) generated this result transmit cipriano reference [...] this result as normal/abnormal . HEPATIC FUNCTION [id number] 06:26:00 Test Item Value Reference Range Interpretation [...] N code = ALKP) CREATININE W ESTIMATED [id number] 06:26:00 Test Item Value Reference Range Interpretation [...] utilize differe nt calculationpara meters. BASIC METABOLIC [id number] 06:23:00 Test Item Value Reference Range Interpretation [...] message] (test code = Index/DL The system [employer]) generated this result transmit cipriano reference range [...] this result as normal/abnormal . HEPATIC FUNCTION [id number] 06:23:00 Test Item Value Reference Range Interpretation [...] 45-117 code = ALKP) CREATININE W ESTIMATED [id number] 06:23:00 Test Item Value Reference Range Interpretation [...] utilize differe nt calculationpara meters. CBC W/AUTO [id number] 06:14:00 Test Item Value Reference Range Interpretation [...] 0.00 K/mm3 0.0-0.05 N NRBC#) ARTERIAL BLOOD [id number] 05:01:00 Test Item Value Reference Range Interpretation [...] DESCRIPTION PaO2/FiO2 (test code = 90.00 mm/Hg [id number]) ABG PATIENT RESP RATE (test 22 /MIN PT RespRate code = RRPATA) ABG TIDAL VOLUME (test code 500 ML = TVA) ABG PEEP (test code = 10 cm H20 0.0-99.9 PEEPA) ABG SITE (test code = RT RADIAL ARTKIT DESCRIPTION SITEA) MODIFIED DAINA'S (test code POSITIVE Circ.CHK POSITIVE = MODALL) O2 SATURATION (test code = 97 % (calc) 95-100 N O2S/C) GLUCOSE BEDSIDE [id number] 20:44:00 Test Item Value Reference Range Interpretation Comments GLUCOSE BEDSIDE TESTING (test code 119 MG/DL 70-119 N = GLUBED) GLUCOSE BEDSIDE [id number] 16:47:00 Test Item Value Reference Range Interpretation Comments GLUCOSE BEDSIDE TESTING (test code 157 MG/DL 70-119 H = GLUBED) Covid 19 InHouse [id number] 11:40:00 Test Item Value Reference Range Interpretation Comments Covid 19 Negative Negative A negative resu lt does not InHouse NTX preclude the SA RS-COV-2 (test code = viralinfection and should not be [id number]) used as the so le basis forpatient [...] performancechar acteristics were determined by [facility]. Thi s test has notbeen FDA [...] defined by CDC? YesDate of Symptom Onset: [id number] due to COVID? NoIn ICU due to COVID? NoResident in a congregate care setting? No? NoAge at collection: Y GLUCOSE BEDSIDE [id number] 11:38:00 Test Item Value Reference Range Interpretation Comments GLUCOSE BEDSIDE TESTING (test code 180 MG/DL 70-119 H = GLUBED) BASIC METABOLIC [id number] 05:33:00 Test Item Value Reference Range Interpretation [...] (test code = Index/DL The system [employer] HEM[employer]) generated this result transmit cipriano [...] this result as normal/abnormal . HEPATIC FUNCTION [id number] 05:33:00 Test Item Value Reference Range Interpretation [...] N code = ALKP) CREATININE W ESTIMATED [id number] 05:33:00 Test Item Value Reference Range Interpretation [...] utilize differe nt calculationpara meters. BASIC METABOLIC [id number] 05:28:00 Test Item Value Reference Range Interpretation [...] message] (test code = Index/DL The system [employer]) generated this result transmit cipriano reference range [...] this result as normal/abnormal . HEPATIC FUNCTION [id number] 05:28:00 Test Item Value Reference Range Interpretation [...] 45-117 code = ALKP) CREATININE W ESTIMATED [id number] 05:28:00 Test Item Value Reference Range Interpretation Comments ESTIMATED CREATININE CLEARANCE est CRCL 85.0-125.0 (test code = CREATCLEST) CBC W/AUTO [id number] 05:14:00 Test Item Value Reference Range Interpretation [...] 0.00 K/mm3 0.0-0.05 N NRBC#) GLUCOSE BEDSIDE [id number] 04:48:00 Test Item Value Reference Range Interpretation Comments GLUCOSE BEDSIDE TESTING (test code 156 MG/DL 70-119 H = GLUBED) ARTERIAL BLOOD [id number] 04:18:00 Test Item Value Reference Range Interpretation [...] DESCRIPTION PaO2/FiO2 (test code = 83.00 mm/Hg [id number]) ABG PATIENT RESP RATE (test 22 /MIN PT RespRate code = RRPATA) ABG TIDAL VOLUME (test code 500 ML = TVA) ABG PEEP (test code = 10.0 cm H20 0.0-99.9 PEEPA) ABG SITE (test code = RT RADIAL ARTKIT DESCRIPTION SITEA) MODIFIED DAINA'S (test code POSITIVE Circ.CHK POSITIVE = MODALL) O2 SATURATION (test code = 97 % (calc) 95-100 N O2S/C) GLUCOSE BEDSIDE [id number] 00:29:00 Test Item Value Reference Range Interpretation Comments GLUCOSE BEDSIDE TESTING (test code 111 MG/DL 70-119 N = GLUBED) GLUCOSE BEDSIDE [id number] 17:38:00 Test Item Value Reference Range Interpretation Comments GLUCOSE BEDSIDE TESTING (test code 143 MG/DL 70-119 H = GLUBED) BASIC METABOLIC [id number] 17:21:00 Test Item Value Reference Range Interpretation [...] message] (test code = Index/DL The system [employer] HEM[employer]) generated this result transmit cipriano reference [...] this result as normal/abnormal . GLUCOSE BEDSIDE [id number] 13:19:00 Test Item Value Reference Range Interpretation Comments GLUCOSE BEDSIDE TESTING (test code 125 MG/DL 70-119 H = GLUBED) ARTERIAL BLOOD [id number] 12:31:00 Test Item Value Reference Range Interpretation [...] DESCRIPTION PaO2/FiO2 (test code = 65.00 mm/Hg [id number]) ABG PATIENT RESP RATE 20 /MIN PT [...] 95-100 L O2S/C) - XR CHEST 1 [id number] 08:11:00 [facility] CONROEName: MARCELLE MEDINA : 1970 Sex: F FAX: Ruthy Boateng MD [phone] [place]: C St: ADM FAX: Anthony Galan MD [phone] Patient Name: MARCELLE MEDINA Unit No: [id number] EXAMS: CPT CODE: [id number] XR CHEST 1 V 03204 STUDY: Chest radiograph HISTORY: Covid COMPARISON: 08/09/2020 [...] MD; Anthony Whittaker MD Dictated Date/Time: 08/10/2020 (0811)Technologist: Fanny Hoang Transcribed Date/Time: 08/10/2020 (08) By: [email or web address] Orig Print D/T: S: 08/10/2020 (0815) GALDINO Ribeiro NAME: BRISEIDA MEDINA MEDICAL IMAGING PHYS: AHMRA.03 - Ruthy Boateng MD [address] [place], [place] [address]VD : 1970 AGE: 50 SEX: Cb [place], [place] [address] LOC: B.ICU13 W PHONE #: [phone] EXAM DATE: 08/10/2020 STATUS: ADM IN FAX #: [phone] RAD NO: DC Dt: PAGE 1 Signed [...] (test code = MG Index/DL The system [employer]) generated this result transmit cipriano reference range [...] this result as normal/abnormal . HEPATIC FUNCTION [id number] 06:33:00 Test Item Value Reference Range Interpretation [...] N code = ALKP) CREATININE W ESTIMATED [id number] 06:33:00 Test Item Value Reference Range Interpretation [...] utilize differe nt calculationpara meters. CBC W/AUTO [id number] 05:51:00 Test Item Value Reference Range Interpretation [...] 0.00 K/mm3 0.0-0.05 N NRBC#) GLUCOSE BEDSIDE [id number] 05:46:00 Test Item Value Reference Range Interpretation Comments GLUCOSE BEDSIDE TESTING (test code 110 MG/DL 70-119 N = GLUBED) ARTERIAL BLOOD [id number] 04:31:00 Test Item Value Reference Range Interpretation [...] MOD) PaO2/FiO2 (test 67.50 mm/Hg code = LSS8IEL6) ABG PATIENT RESP 22 /MIN PT RespRate [...] 95-100 L code = O2S/C) GLUCOSE BEDSIDE [id number] 16:45:00 Test Item Value Reference Range Interpretation Comments GLUCOSE BEDSIDE TESTING (test code = 84 MG/DL 70-119 N GLUBED) Covid 19 InHouse [id number] 13:28:00 Test Item Value Reference Range Interpretation Comments Covid 19 Negative Negative A negative resu lt does not InHouse NTX preclude the SA RS-COV-2 (test code = viralinfection and should not be [id number]) used as the so le basis forpatient terri gement decisions. Negative result s must becombined with clinical o bservations, patient history , andepidemiologi brooke information. Viral levels in clinicalsamples below the detec tion limit of the assay could daria d tonegative results. This t est was performed using the [employer] SmartTM COVID-19 PCRassay. This test was developed and i ts performancechar acteristics were determined by [facility]. Thi s test has notbeen FDA [...] defined by CDC? YesDate of Symptom Onset: [id number] due to COVID? NoIn ICU due to COVID? YesResident in a congregate care setting? No? NoAge at collection: Y GLUCOSE BEDSIDE [id number] 12:19:00 Test Item Value Reference Range Interpretation Comments GLUCOSE BEDSIDE TESTING (test code = 73 MG/DL 70-119 N GLUBED) - XR CHEST 1 [id number] 07:38:00 [facility] CONROEName: JOSEFINA MEDINACheyanne TANESHA : 1970 Sex: F FAX: Ruthy Boateng MD [phone] [place]: C St: [facility] FAX: Anthony Galan MD [phone] Patient Name: MARCELLE MEDINA Unit No: [id number] EXAMS: CPT CODE: [id number] XR CHEST 1 V 47926 EXAMINATION: - XR CHEST 1 V HISTORY: [...] MD; Anthony Whittaker MD Dictated Date/Time: 08/09/2020 (0738)Technologist: Toyin Jamil Transcribed Date/Time: 08/09/2020 (0738) By: [email or web address] Orig Print D/T: S: 08/09/2020 (0741) JANIEChanda Ribeiro NAME: MARCELLE MEDINA MEDICAL IMAGING PHYS: AHMRA.03 - Ruthy Boateng MD [address] [place] [address] BLVD : 1970 AGE: 50 SEX: Cb [place], [place] [address] LOC: B.ICU13 W PHONE #: [phone] EXAM DATE: 08/09/2020 STATUS: ADM IN FAX #: [phone] RAD NO: DC Dt: PAGE 1 Signed ReportBASIC METABOLIC [id number] 06:27:00 Test Item Value Reference Range Interpretation [...] (test code = MG Index/DL The system [employer]) generated this result transmit cipriano reference range [...] this result as normal/abnormal . HEPATIC FUNCTION [id number] 06:27:00 Test Item Value Reference Range Interpretation [...] N code = ALKP) CREATININE W ESTIMATED [id number] 06:27:00 Test Item Value Reference Range Interpretation [...] utilize differe nt calculationpara meters. BASIC METABOLIC [id number] 05:47:00 Test Item Value Reference Range Interpretation [...] (test code = MG Index/DL The system [employer]) generated this result transmit cipriano reference range [...] this result as normal/abnormal . HEPATIC FUNCTION [id number] 05:47:00 Test Item Value Reference Range Interpretation [...] Unit/L 45-117 = ALKP) CREATININE W ESTIMATED [id number] 05:47:00 Test Item Value Reference Range Interpretation Comments ESTIMATED CREATININE CLEARANCE est CRCL 85.0-125.0 (test code = CREATCLEST) CBC W/AUTO [id number] 05:40:00 Test Item Value Reference Range Interpretation [...] 0.00 K/mm3 0.0-0.05 N NRBC#) ARTERIAL BLOOD [id number] 04:25:00 Test Item Value Reference Range Interpretation [...] MOD) PaO2/FiO2 (test 78.66 mm/Hg code = BXG1WCB1) ABG PATIENT RESP 22 /MIN PT RespRate [...] 95-100 L code = O2S/C) GLUCOSE BEDSIDE [id number] 16:50:00 Test Item Value Reference Range Interpretation Comments GLUCOSE BEDSIDE TESTING (test code 121 MG/DL 70-119 H = GLUBED) HEPATIC FUNCTION [id number] 13:17:00 Test Item Value Reference Range Interpretation [...] clearance is co mputed CLEARANCE (test using sofi rodriguez, age, code = sex, and serum CREATCLEST) [...] Specimen comments: Prior to Remdesivir dosingHEPATIC FUNCTION [id number] 13:15:00 Test Item Value Reference Range Interpretation [...] clearance is co mputed CLEARANCE (test using sofi rodriguez, age, code = sex, and serum CREATCLEST) [...] f the glomerular filt ration rate.The GFR [facility] units = ml/min/1.73 m eter squared. Estim atedGFR values above 60 should be interpreted as >60, not anexact number. --- DRUG DOSAGE ALERT -- - Drug dosage adjustme nts utilize differe nt calculationpara meters. CREATININE (test 0.65 MG/DL 0.55-1.30 N Results may be depressed code = CREAT) if patient is takingN-Acetylc ysteine (NAC) and Metam izole (Dipyrone). Specimen comments: Prior to Remdesivir dosingPROTHROMBIN [id number] 13:02:00 Test Item Value Reference Range Interpretation [...] 3.0-5.4 AMI mortality reduc tion GLUCOSE BEDSIDE [id number] 11:35:00 Test Item Value Reference Range Interpretation Comments GLUCOSE BEDSIDE TESTING (test code 150 MG/DL 70-119 H = GLUBED) - XR CHEST 1 [id number] 07:11:00 [facility] CONROEName: MARCELLE MEDINAELLE : 1970 Sex: F FAX: Ruthy Boateng MD [phone] [place]: St: [facility] FAX: Anthony Galan MD [phone] Patient Name: MARCELLE MEDINA Unit No: [id number] EXAMS: CPT CODE: [id number] XR CHEST 1 V [id number] EXAMINATION: - XR CHEST 1 V HISTORY: [...] MD; Anthony Whittaker MD Dictated Date/Time: 08/08/2020 (710)Technologist: Cindy Couch Transcribed Date/Time: 08/08/2020 (710) By: [email or web address] Orig Print D/T: S: 08/08/2020 (0715) [facility] NAME: CAROLMAYITOBREANA ALMENDAREZ MEDICAL IMAGING PHYS: AHMRA.03 - Ruthy Boateng MD [address] [place] [address] : 1970 AGE: 50 SEX: F [place] [address] [facility] NO: [id number] LOC: SantiagoICU08 W PHONE #: [phone] EXAM DATE: 08/08/2020 STATUS: ADM IN FAX #: [phone] RAD NO: DC Dt: PAGE 1 Signed ReportCBC W/AUTO [id number] 06:40:00 Test Item Value Reference Range Interpretation [...] 0.00 K/mm3 0.0-0.05 N NRBC#) PT AND [id number] 06:10:00 Test Item Value Reference Interpretation Comments [...] prevention in p rosthetic heart 3.0-5.4 A [place] mortality reduc tion THROMBOPLASTIN TIME 25.9 SECONDS [...] 08/08/20 AT 0605, AG (test code = cheyanne.STF.FA9 CA LLED TO [facility]) REID ECKERT.The report was conf irmed by read back protocols Y,N: Y. Specimen comments: FOR NASCAR RACER PROCEDURE TODAYComments to Web Site Developer: NEEDS RAPID TESTINGBASIC METABOLIC [id number] 05:53:00 Test Item Value Reference Range Interpretation [...] (test code = MG Index/DL The system [employer] HEMINDEX) generated this result transmit cipriano reference [...] this result as normal/abnormal . ARTERIAL BLOOD [id number] 04:13:00 Test Item Value Reference Range Interpretation [...] MOD) PaO2/FiO2 (test 93.33 mm/Hg code = [id number]) ABG PATIENT RESP 22 /MIN PT RespRate [...] code = O2S/C) - NM PULM PERF [id number] 13:13:00 [facility] CON[facility]EName: MARCELLE MEDINA : 1970 Sex: F Patient Name: MARCELLE MEDINA Unit No: [id number] EXAMS: CPT CODE: [id number] NM PULM PERF PARTIC [id number] Nuclear medicine lung perfusion scan: INDICATION: refractory [...] CC: Ruthy Boateng MD; Anthony Whittaker MD [facility] NAME: MARCELLE MEDINA MEDICAL IMAGING PHYS: AHMRA. - Ruthy Boateng MD [address] [place] [address] BLVD : 1970 AGE: 50 SEX: Cb [place], [place] [address] LOC: B.ICU08 W PHONE #: [phone] EXAM DATE: 08/07/2020 STATUS: ADM IN FAX #: [phone] RAD NO: DC Dt: PAGE 1 Signed Report Patient Name: MARCELLE MEDINA Unit No: [id number] EXAMS: CPT CODE: [id number] NM PULM PERF PARTIC [id number] <Continued> Technologist: Rose Lizarraga Transcribed Date/Time: 08/07/2020 (1313) - t.SDR.NB16 Orig Print D/T: S: 08/07/2020 (7975) [facility] NAME: MARCELLE MEDINA MEDICAL IMAGING PHYS: AHMRA.03 - Ruthy Boateng MD [address] [place] [address] : 1970 AGE: 50 SEX: [place] [address] LOC: B.ICU08 W PHONE #: [phone] EXAM DATE: 08/07/2020 STATUS: ADM IN FAX #: [phone] RAD NO: DC Dt: PAGE 2 Signed Report- XR CHEST 1 [id number] 07:14:00 [facility] CON[facility]EN[facility]: MARCELLE MEDINA : 1970 Sex: F FAX: Ruthy Boateng MD [phone] [place]: C St: ADM FAX: Anthony Galan MD [phone] Patient Name: CAROLMARCELLE Unit No: [id number] EXAMS: CPT CODE: [id number] XR CHEST 1 V 44108 EXAMINATION: - XR CHEST 1 V HISTORY: [...] the right lung base, likely atelectasis t 713 Reported and signed by: Mar Metz MD CC:Ruthy Boateng MD; Anthony Whittaker MD Dictated Date/Time: 08/07/2020 (713)Technologist: Sandra Moses Transcribed Date/Time: 08/07/2020 (713) By: [email or web address] Orig Print D/T: S: 08/07/2020 (716) GALDINO Ribeiro NAME: MARCELLE [facility] PHYS: AHMRARuthy Pike MD [address] [place] [address] : 1970 AGE: 50 SEX: F [place], [place] [address] LOC: B.ICU08 W PHONE #: [phone] EXAM DATE: 08/07/2020 STATUS: ADM IN FAX #: [phone] RAD NO: DC Dt: PAGE 1 Signed [...] MOD) PaO2/FiO2 (test 88.57 mm/Hg code = [id number]) ABG PATIENT RESP 22 /MIN PT RespRate RATE (test code = RRPATA) ABG TIDAL VOLUME 500 ML (test code = TVA) ABG PEEP (test code 10.0 cm H20 0.0-99.9 = PEEPA) ABG PRESSURE 12.0 cm H20 See_Comment [Automated SUPPORT (test code message] The system = [employer]) which generated this result transmitted reference range : 0-. The referen ce range was not u sed to interpret th is result as normal/abnormal . ABG SITE (test code RT RADIAL ARTKIT DESCRIPTION = SITEA) MODIFIED DAINA'S POSITIVE POSITIVE (test code = Circ.CHK MODALL) O2 SATURATION (test 93 % (calc) 95-100 L code = O2S/C) COMPREHENSIVE METABOLIC [id number] 05:01:00 Test Item Value Reference Range Interpretation [...] (test code = MG Index/DL The system [employer] HEMINDEX) generated this result transmit cipriano reference [...] this result as normal/abnormal . COMPREHENSIVE METABOLIC [id number] 04:46:00 Test Item Value Reference Range Interpretation [...] (test code = MG Index/DL The system [employer] HEMINDEX) generated this result transmit cipriano reference [...] this result as normal/abnormal . CBC W/AUTO [id number] 04:30:00 Test Item Value Reference Range Interpretation [...] 0.00 K/mm3 0.0-0.05 N NRBC#) GLUCOSE BEDSIDE [id number] 00:31:00 Test Item Value Reference Range Interpretation Comments GLUCOSE BEDSIDE TESTING (test code 127 MG/DL 70-119 H = GLUBED) GLUCOSE BEDSIDE [id number] 18:59:00 Test Item Value Reference Range Interpretation Comments GLUCOSE BEDSIDE TESTING (test code 149 MG/DL 70-119 H = GLUBED) - XR CHEST 1 [id number] 07:03:00 [facility] CONROEN[facility]: MARCELLE MEDINA : 1970 Sex: F FAX: Ruthy Boateng MD [phone] [place]: C St: [facility] FAX: Anthony Galan MD [phone] Patient Name: MARCELLE MEDINA Unit No: [id number] EXAMS: CPT CODE: [id number] XR CHEST 1 V 02979 EXAMINATION: - XR CHEST 1 V HISTORY: [...] Boateng MD;Anthony Whittaker MD Dictated Date/Time: 08/06/2020 (07)Technologist: Fanny Hoang Transcribed Date/Time: 08/06/2020 (702) By: [email or web address] Orig PrintD/T: S: 08/06/2020 (0706) [facility] Quintin NAME: MARCELLE [facility] PHYS: [email or web address].03 - Ruthy Boateng MD [address] [place] [address] : 1970 AGE: 50 SEX: F [place], [place] [address] LOC: B.ICU08 W PHONE #: [phone] EXAM DATE: 08/06/2020 STATUS: ADM IN FAX #: [phone] RAD NO: DC Dt: PAGE1 Signed ReportTROPONIN-I [...] changes in trop onin levelscharacter istic of [place]. LIPID PROFILE (CORONARY RISK)2020-08-06 05:43:00 Test Item [...] The code = ICTINDEX) MG Index/DL system [facility] generated this result tra nsmitted reference range : 1 NORMAL. The ref erence range was not u sed to interpret this result as normal/abnormal . INDEX LIPEMIA (test 1 NORMAL <50 See_Comment [Automa cipriano message] The code = LIPINDEX) MG Index/DL system [facility] [employer] generated this result tra nsmitted reference range [...] cipriano code = LIPINDEX) MG Index/DL message] Th e system which generated this result transmitted reference range : 1 NORMAL. The reference range was not used to interpret this result as normal/abnormal . BASIC METABOLIC [id number] 05:38:00 Test Item Value Reference Range Interpretation [...] this result as normal/abnormal . BASIC METABOLIC [id number] 05:33:00 Test Item Value Reference Range Interpretation [...] message] (test code = Index/DL The system [employer]) generated this result transmit cipriano reference range [...] this result as normal/abnormal . CBC W/AUTO [id number] 05:16:00 Test Item Value Reference Range Interpretation [...] 0.00 K/mm3 0.0-0.05 N NRBC#) ARTERIAL BLOOD [id number] 04:22:00 Test Item Value Reference Range Interpretation [...] MOD) PaO2/FiO2 (test code 108.33 mm/Hg = NDQ4TDE1) ABG PATIENT RESP 20 /MIN PT RespRate [...] 95-100 L code = O2S/C) ARTERIAL BLOOD [id number] 17:27:00 Test Item Value Reference Range Interpretation [...] MOD) PaO2/FiO2 (test 112.00 mm/Hg code = BIC1JVS9) ABG PATIENT RESP 20 /MIN PT RespRate RATE (test code = RRPATA) ABG TIDAL VOLUME 500 ML (test code = TVA) ABG PEEP (test code 8 cm H20 0.0-99.9 = PEEPA) ABG PRESSURE 12.0 cm H20 See_Comment [Automated SUPPORT (test code message] The system = [employer]) which generated this result transmitted reference range : 0-. The referen ce range was not u sed to interpret th is result as normal/abnormal . ABG SITE (test code RT RADIAL ARTKIT DESCRIPTION = SITEA) MODIFIED DAINA'S POSITIVE POSITIVE (test code = Circ.CHK MODALL) O2 SATURATION (test 89 % (calc) 95-100 L code = O2S/C) PT AND [id number] 13:39:00 Test Item Value Reference Interpretation Comments [...] prevention in p rosthetic heart 3.0-5.4 A [place] mortality reduc tion THROMBOPLASTIN TIME 26.4 SECONDS [...] THERAPY [Y,N]: NOUA RFLX MICR CULT IF [id number] 06:38:00 Test Item Value Reference Range Interpretation Comments UA COLOR (test code = YELLOW DESCRIPT YELLOW COLU) UA APPEARANCE (test CLEAR DESCRIPT CLEAR code = APPU) UA GLUCOSE DIPSTICK NORMAL (0) See_Comment [Automa cipraino (test code = DGLUU) mg/dL message] The [...] Indication for culture: RiskForSepsis-no oth srcComments to Web Site Developer: FROM [facility] HEPATITIS B [id number] 04:49:00 Test Item Value Reference Range Interpretation Comments AB HEPATITIS B < 3.10 mIU/ML 0.00-8.00 N HBSAB IMMUNI TY SURFACE (test code INTERPRET ATION <8.00 = HBSAB) mIU/ML NON-Reactive 8.00-12.00 mIU/ ML [place] Immunity Interpretation Range>12.00 mIU/ML Reactive /Immune Values of 10 mIU/ML or greater are considered reac tive (protective) in accordance with the (CDC) Centers f or Disease Control guidelines. The accepted criter ion for immunity to HB V is anti-HBS activi ty >=10 mIU/ML as defi emily by (WHO) World Hea lth Organization. HBSAG NEUTRALIZATION [id number] 04:49:00 Test Item Value Reference Range Interpretation Comments AG HEPATITIS B SURFACE NEG-NONREAC SCREEN Nonreactive (test code = HBSAG) AB HEPATITIS B CORE [id number] 04:49:00 Test Item Value Reference Range Interpretation Comments AB HEPATITIS B CORE IGM NonReactive SCREEN Nonreactive (test code = HBCMAB) AB HEPATITIS [id number] 04:49:00 Test Item Value Reference Range Interpretation Comments AB HEPATITIS C (test code = HCVAB) NR SCREEN Nonreactive COMPREHENSIVE METABOLIC [id number] 04:41:00 Test Item Value Reference Range Interpretation [...] (test code = MG Index/DL The system [employer] HEMINDEX) generated this result transmit cipriano [...] this result as normal/abnormal . ARTERIAL BLOOD [id number] 04:37:00 Test Item Value Reference Range Interpretation [...] DESCRIPTION PaO2/FiO2 (test code = 142.85 mm/Hg JQB5OEK5) ABG PATIENT RESP RATE (test 20 /MIN [...] (calc) 95-100 N O2S/C) AB HEPATITIS B [id number] 04:26:00 Test Item Value Reference Range Interpretation [...] (WHO) World Hea lth Organization. HBSAG NEUTRALIZATION [id number] 04:26:00 Test Item Value Reference Range Interpretation Comments AG HEPATITIS B SURFACE NEG-NONREAC SCREEN Nonreactive (test code = HBSAG) AB HEPATITIS B CORE [id number] 04:26:00 Test Item Value Reference Range Interpretation Comments AB HEPATITIS B CORE IGM (test code = SCREEN Nonreactive HBCMAB) AB HEPATITIS [id number] 04:26:00 Test Item Value Reference Range Interpretation Comments AB HEPATITIS C (test code = HCVAB) NR SCREEN Nonreactive COMPREHENSIVE METABOLIC [id number] 04:19:00 Test Item Value Reference Range Interpretation [...] (test code = MG Index/DL The system [employer] HEMINDEX) generated this result transmit cipriano reference [...] this result as normal/abnormal . COMPREHENSIVE METABOLIC [id number] 04:10:00 Test Item Value Reference Range Interpretation [...] (test code = MG Index/DL The system [employer] HEMINDEX) generated this result transmit cipriano reference [...] to interpret this result as normal/abnormal . [id number] 04:01:00 Test Item Value Reference Range Interpretation [...] changes in trop onin levelscharacter istic of [place]. - [place] ABDOMEN [id number] 04:00:00 [facility] CON[facility]EN[facility]: MARCELLE MEDINA : 1970 Sex: F Patient Name: MARCELLE MEDINA Unit No: [id number] EXAMS: CPT CODE: [id number] US ABDOMEN LTD 69841 HISTORY: Hepatitis COMPARISON: None FINDINGS: The gallbladder [...] Gustafson Technologist: Savannah Graham RDMS Trnscrbd D/ (0400) SomRXC2 Probe: Orig Print D/T: S: 08/05/2020 (0403) Probe: GALDINO Ribeiro NAME: MARCELLE [facility] PHYS: Anthony Pham MD [address] [place] [address] BLVD : 1970 AGE: 50 SEX: F [place], [place] [address] LOC: B.ICU08 W PHONE #: [phone] EXAM DATE: 08/05/2020 STATUS:ADM IN FAX #: [phone] RAD NO: Page 1 Signed ReportCBC W/AUTO [id number] 03:41:00 Test Item Value Reference Range Interpretation [...] 0.00 K/mm3 0.0-0.05 N NRBC#) COMPREHENSIVE METABOLIC [id number] 00:13:00 Test Item Value Reference Range Interpretation [...] to interpret this result as normal/abnormal . [id number] 00:13:00 Test Item Value Reference Range Interpretation Comments PHOSPHOROUS (test code = PHOS) 3.8 MG/DL 2.5-4.9 N [id number] 00:13:00 Test Item Value Reference Range Interpretation Comments MAGNESIUM (test code = MAG) 2.5 MG/DL 1.6-2.6 N [id number] 00:13:00 Test Item Value Reference Range Interpretation Comments TROPONIN-I 0.441 NG/ML 0.000-0.045 HH ON 08/04/20 AT 2356, B.LAB.AR (test code [...] changes in trop onin levelscharacter istic of [place]. COMPREHENSIVE METABOLIC [id number] 00:00:00 Test Item Value Reference Range Interpretation [...] (test code = MG Index/DL The system [employer] HEMINDEX) generated this result transmit cipriano reference [...] to interpret this result as normal/abnormal . [id number] 00:00:00 Test Item Value Reference Range Interpretation Comments PHOSPHOROUS (test code = PHOS) 3.8 MG/DL 2.5-4.9 N [id number] 00:00:00 Test Item Value Reference Range Interpretation Comments MAGNESIUM (test code = MAG) 2.5 MG/DL 1.6-2.6 N [id number] 00:00:00 Test Item Value Reference Range Interpretation Comments TROPONIN-I 0.441 NG/ML 0.000-0.045 ON 08/04/20 AT 2356, B.LAB.AR (test code = CALLED TO HARDIK GONZALEZ TROPI) VANGIE . Th e report was confirmed by [...] changes in trop onin levelscharacter istic of [place]. B-TYPE NATRIURETIC [id number] 23:59:00 Test Item Value Reference Range Interpretation Comments B-TYPE NATRIURETIC PEPTIDE (test 163.50 PG/ML 0.00-100.00 H code = BNP) [id number] 23:57:00 Test Item Value Reference Range Interpretation Comments TROPONIN-I 0.441 NG/ML 0.000-0.045 ON 08/04/20 AT 2356, B.LAB.AR (test code = CALLED TO HARDIK JUAREZI) VANGIE . Th e report was confirmed by [...] changes in trop onin levelscharacter istic of [place]. COMPREHENSIVE METABOLIC [id number] 23:57:00 Test Item Value Reference Range Interpretation [...] (test code = MG Index/DL The system [employer] HEMINDEX) generated this result transmit cipriano [...] to interpret this result as normal/abnormal . [id number] 23:57:00 Test Item Value Reference Range Interpretation Comments PHOSPHOROUS (test code = PHOS) 3.8 MG/DL 2.5-4.9 N [id number] 23:57:00 Test Item Value Reference Range Interpretation Comments MAGNESIUM (test code = MAG) 2.5 MG/DL 1.6-2.6 N VENOUS BLOOD GAS [id number] 23:01:00 Test Item Value Reference Range Interpretation Comments VENOUS BLOOD GAS PH (test code 7.30 pH units 7.32-7.42 L = PHV) VENOUS BLOOD GAS [id number] 23:01:00 Test Item Value Reference Range Interpretation Comments VENOUS BLOOD GAS PCO2 (test code = 69 mmHg 41-51 H PCO2V) VENOUS BLOOD GAS [id number] 23:01:00 Test Item Value Reference Range Interpretation Comments VENOUS BLOOD GAS PO2 (test code = 40 mmHg 25-40 N PO2V) VBG [id number] 23:01:00 Test Item Value Reference Range Interpretation Comments VBG HCO3 (test code = HCO3V) 33.9 mmol/L 24-28 H VENOUS BLOOD GAS [id number] 23:01:00 Test Item Value Reference Range Interpretation Comments VENOUS BLOOD GAS SITE (test code Venous Site DESCRIPTION = SITEV) - XR CHEST 1 [id number] 22:33:00 [facility] CON[facility]EN[facility]: MARCELLE MEDINA : 1970 Sex: F FAX: Chuckie Cristobal MD [phone] [place]: E St: REG Patient Name: MARCELLE MEDINA Unit No: [id number] EXAMS: CPT CODE: [id number] XR CHEST 1 V 41779 EXAM: - XR CHEST 1 V COMPARISON: None LOCATION: H57 HISTORY: 50 years-old Female with ett TECHNIQUE: Single AP view of the chest. FINDINGS: Endotracheal tube terminates 5.7 cm above the geovanny. Esophagogastric tube proceeds intothe stomach and beyond the kfydr-jg-shfi. There is cardiomegaly. The lungs are well aerated. No large pneumothorax or pleural effusion. Osseous structures and soft tissues demonstrate no acute findings. The visualized upper abdomen is unremarkable. IMPRESSION: 1. Endotracheal tube terminates 5.7 cm above the geovanny. 2. Esophagogastric tube proceeds into the stomach and beyond the zbtuk-il-dbfv. at 2233 Reported and signed by: Albaro Saab MD CC: Chuckie Mcnally MD Dictated Date/Time: 08/04/2020 (2232)Technologist: Toyin Jamil Transcribed Date/Time: 08/04/2020 (2232) By: [email or web address] Orig Print D/T: S: 08/04/2020 (2235) [facility] [place] NAME: JOSEFINA MEDINACheyanne ALMENDAREZ [address] [place] [address] PHYS: Chuckie Escobar MD, [place] [address] :1970 AGE: 50 SEX: F LOC: [place] PHONE #: [phone] EXAM DATE: 08/04/2020 STATUS: REG ER FAX #: [phone] RAD NO: DC Dt: PAGE 1 Signed [id number] 16:03:00 Test Item Value Reference Range Interpretation Comments SURG (test code = SURG) --------RUN DATE: 03/14/20 [facility] PAGE 1 RUN TIME: 1603 Specimen Inquiry RUN USER: INTERFACE --------PATIENT: MARCELLE WEISS LOC: STEPHIE #: [id number] AGE/SX: 50/F ROOM: [facility]03/13/20REG DR: Tyler Clemens MD : [birth year] BED: DIS: STATUS: [facility] [place] TLOC: -------- SPEC #: [id number] RECD: 03/13/20 STATUS: ANDREIMichael SALMA #: [id number] RADHA: 03/13/[address]: Tyler Clemens MD ENTERED: 03/13/20 SP TYPE: SURG OTHR DR: Adele York MD ORDERED: SURG PATH LVL 08/03 COPIES TO: Tyler Clemens MD [address] [place], [place] [address] Adele York MD [address] [place] [address] HISTOLOGY: TISSUE ID BLK PCS MANOJ LEV PROCEDURE DISPOSITION ____ ___ ___ ___ SMALL INTESTINE A 1 2 GASTRIC ANTRUM B 1 2 STOMACH, NOS C 1 2 PROCEDURES: SURG PATH LVL 4 (03/13/20) TISSUES: A. SMALL INTESTINE, NOS - SMALL BOWEL BIOPSY B. GASTRIC ANTRUM - ANTRUM BIOPSY C. STOMACH, NOS - BODY BIOPSY CPT CODES CPT CODE(S): [id number] , , , , , , FINAL DIAGNOSIS A. Small intestine, biopsy: DUODENUM WITH UNREMARKABLE VILLI B. Stomach, antrum, biopsy: ACUTE GASTRITIS WITH SURFACE ULCERATION NEGATIVE FOR INTESTINAL METAPLASIA, DYSPLASIA, OR MALIGNANCY NEGATIVE FOR HELICOBACTER PYLORI ORGANISMS C. Stomach, body, biopsy: CONTINUED ON NEXT PAGE --------RUN DATE: 03/14/20 [facility] PAGE 2 RUN TIME: 1603 Specimen Inquiry RUN USER: INTERFACE --------SPEC #: [id number] PATIENT: ABHISHEK,MARCELLE Cornelius #[id number] (Continued) FINAL DIAGNOSIS (Continued) MILD CHRONIC GASTRITIS [...] all as C. ba/nr Grossing performed at [facility] Pathology, [address] [place] [address], [address], [place], [place] [address]. Agile Scrum Master: Nickolas Steel M.D. MICROSCOPIC DESCRIPTION A. Small [...] -------- END OF REPORT COVID 19 INHOUSE [id number] 13:44:00 Test Item Value Reference Range Interpretation Comments COVID 19 INHOUSE AG NEGATIVE Negative Per [facility] facturer, (test code = negative result s should [id number]) be treated aspr esumptive and, if inconsi [...] symptoms co nsistent with COVID-19. CBC W/AUTO [id number] 13:13:00 Test Item Value Reference Range Interpretation [...] DIFF/SCN CRITERIA = MDIFF) Novel Coronavirus 2019 [id number] 21:08:00 Test Item Value Reference Range Interpretation Comments Novel Coronavirus 2019 Inhouse (test Negative Negative code = COVNONPUI) COMPREHENSIVE METABOLIC [id number] 09:36:00 Test Item Value Reference Range Interpretation [...] TOTAL (test code = ALKP) HCG SERUM [id number] 09:36:00 Test Item Value Reference Range Interpretation Comments HCG SERUM QUAL (test code = SERUM NEGATIVE NEGATIVE HCGQL) - XR CHEST 2 [id number] 09:35:00 FAX: Jigar Velasco [facility] [phone] [place]: St: PRE FAX: Adele Hernández MD [phone] Name: MARCELLE WEISS [facility] : 1970 Age/S: 49/F [address] [place] [address] Unit #: [id number] Loc: [place] [address] Phys: Jigar Jurado DPM Acct: [id number] Dis Date: Status: PRE SDC PHONE #: [phone] Exam Date: 09/27/2019930 FAX #: [phone] Reason: PREOP- PAIN D/T ORTHOPEDIC IMPLANT EXAMS: CPT CODE: [id number] XR CHEST 2 V 76722 Two-view chest: HISTORY: Preoperative clearance for painful orthopedic implant. FINDINGS: Stable mild cardiomegaly compared with 05/07/2019. Development of areas of bibasilar subsegmental atelectasis. No pleural effusion or bony pathology IMPRESSION: Bibasilar s ubsegmental atelectasis SL: [id number] at 0935 Reported and signed by: Sammy Branham M.D. CC: Jigar Jurado DPM; Adele York MD Technologist: Diamond Castro, RT(R) Trnscrd Date/Time/By: 09/27/2019 (0935) : By: SomETG Orig Print D/T: S: 09/27/2019 (6479) PAGE 1 Signed ReportCOMPREHENSIVE METABOLIC [id number] 09:28:00 Test Item Value Reference Range Interpretation [...] IUnit/L 20-125 code = ALKP) HCG SERUM [id number] 09:28:00 Test Item Value Reference Range Interpretation Comments HCG SERUM QUAL (test code = SERUM NEGATIVE NEGATIVE HCGQL) CBC W/AUTO [id number] 09:21:00 Test Item Value Reference Range Interpretation [...] (test NO code = MDIFF) BASIC METABOLIC [id number] 09:50:00 Test Item Value Reference Range Interpretation [...] = CA) 9.5 MG/DL 8.5-10.1 N VANCOMYCIN [id number] 21:06:00 Test Item Value Reference Range Interpretation Comments VANCOMYCIN TROUGH (test code = 19.1 mcG/ML 10-20 N VANCT) GLUCOSE BEDSIDE [id number] 20:17:00 Test Item Value Reference Range Interpretation Comments GLUCOSE BEDSIDE TESTING (test code = 84 mg/dL 70-110 N GLUBED) - NM BONE 3 [id number] 19:51:00 FAX: Dwight Parrish MD [place]: PM St: ADM FAX: Bettye Alves MD [phone] Name: ABHISHEKMARCELLE [facility] : 1970 Age/S: 49/F [address] Unit #: [id number] Loc: [address] [address] Phys: Bettye Mullins MD Acct: [id number] Dis Date: Status: ADM IN PHONE #: [phone] Exam Date: 05/09/2019 1535 FAX #: Reason: OM ANDHARDWARE INFECTION LEFT ANKLE EXAMS: CPT: [id number] NM BONE 3 PHASE 39709 EXAM: - NM BONE 3 PHASE HISTORY: [...] MD; Bettye Mullins MD Technologist: Lynn Rios [facility] Transcribed Date/Time/By: 05/09/2019 (1950) :[email or web address] Orig Print D/T: S: 05/09/2019 (1953) PAGE 1 Signed ReportBASIC METABOLIC [id number] 14:15:00 Test Item Value Reference Range Interpretation [...] <2 ng/mL are obtai emily. CBC W/AUTO [id number] 07:54:00 Test Item Value Reference Range Interpretation [...] code = NO DIFF/SCN CRITERIA MDIFF) SED [id number] 07:54:00 Test Item Value Reference Range Interpretation Comments SED RATE (test code = SEDW) 19 mm/hr 0-20 N BASIC METABOLIC [id number] 06:17:00 Test Item Value Reference Range Interpretation [...] (test code = ng/ml PROCAL) CBC W/AUTO [id number] 06:08:00 Test Item Value Reference Range Interpretation [...] code = NO DIFF/SCN CRITERIA MDIFF) SED [id number] 06:08:00 Test Item Value Reference Range Interpretation Comments SED RATE (test code = SEDW) mm/hr 0-20 [id number] 02:57:00 Test Item Value Reference Range Interpretation [...] may basilio yby method. Completed by Nursing: [id number] 23:57:00 Test Item Value Reference Range Interpretation [...] by Nursing: OSVALDO PIERSONX MICR CULT IF [id number] 18:41:00 Test Item Value Reference Range Interpretation [...] for culture: Dysuria/FrequencyUA RFLX MICR CULT IF [id number] 18:41:00 Test Item Value Reference Range Interpretation [...] CLEAN CATCHIndication for culture: Dysuria/Frequency COMPREHENSIVE METABOLIC [id number] 18:23:00 Test Item Value Reference Range Interpretation [...] TOTAL (test code = ALKP) CBC W/AUTO [id number] 18:03:00 Test Item Value Reference Range Interpretation [...] = NO DIFF/SCN CRITERIA MDIFF) LACTIC ACID [id number] 17:58:00 Test Item Value Reference Range Interpretation Comments LACTIC ACID POC (test code = 1.93 MMOL/L 0.90-1.70 H LACTP) - XR ANKLE 3+V [id number] 17:50:00 Name: ABHISHEKMARCELLE [facility] : 1970 Age/S: 49 / F [address] Unit #: [id number] Loc: [place] [address] Phys: Aletha Valerio MD Acct: [id number] Dis Date: Status: REG ER PHONE #: [phone] Exam Date: 05/07/2019 6569 FAX #: Reason: ankle EXAMS: CPT: [id number] XR ANKLE 3+[place] [address] Fluoro Time: DAP (Gy m2): Air Kerma [...] Lisette [place] PAGE 1 Signed Report Name: ABHISHEKMARCELLE [facility] : 1970 Age/S: 49 / F [address] Unit #: [id number] Loc: [place] [address] Phys: Aletha Valerio MD Acct: [id number] Dis Date: Status: REG ER PHONE #: [phone] Exam Date: 05/07/2019 1740 FAX #: Reason:ankle EXAMS: CPT: [id number] XR ANKLE 3+[place] [address] Fluoro Time: DAP (Gy m2): Air Kerma (mGy): <Continued> Technologist: Miguel Enamorado RT(R)(MR) Trnscb Date/Time: 05/07/2019 (1749) 16 Orig Print D/T: S: 05/07/2019 (1753) PAGE 2 Signed Report- XR CHEST 1 [id number] 17:40:00 Name: MARCELLE WEISS [facility] : 1970 Age/S: 49 / F [address] Unit #: [id number] Loc: [place] [address] Phys: Aletha Valerio MD Acct: [id number] Dis Date: Status: REG ER PHONE #: [phone] Exam Date: 05/07/2019 1710 FAX #: Reason: infection EXAMS: CPT: [id number] XR CHEST 1 V 64344 Fluoro Time: DAP (Gy m2): Air Kerma [...] PAGE 1 Signed Report Name: MARCELLE WEISS [facility] : 1970 Age/S: 49 / F [address] [address] Unit #: [id number] Loc: [place] [address] Phys:Aletha Valerio MD Acct: [id number] Dis Date: Status: REG ER PHONE #: [phone] Exam Date: 05/07/20191709 FAX #: Reason: infection EXAMS: CPT: [id number] XR CHEST1 V 63327 Fluoro Time: DAP (Gy m2): Air Kerma (mGy): <Continued> Technologist: Miguel Enamorado RT(R)(MR) Trnscb Date/Time: 05/07/2019 (1739) 16 Orig Print D/T: S: 05/07/2019 (1103) PAGE 2 Signed ReportPROCALCITONIN (PCT)2019-04-27 03:09:00 Test [...] concentrations <2 ng/mL are obtai emily. SED [id number] 13:10:00 Test Item Value Reference Range Interpretation Comments SED RATE (test code = SEDW) 30 mm/hr 0-20 H [id number] 02:18:00 Test Item Value Reference Range Interpretation [...] may basilio yby method. Completed by Nursing: [id number] 23:37:00 Test Item Value Reference Range Interpretation [...] yby method. Completed by Nursing: NOCHEMISTRY 8 [id number] 22:03:00 Test Item Value Reference Range Interpretation [...] 58-135 N code = GFRBED) CHEMISTRY 8 [id number] 22:03:00 Test Item Value Reference Range Interpretation [...] code = GFRBED) - CT CHEST W/O [id number] 21:11:00 Name: MARCELLE WEISS [facility] : 1970 Age/S: 49 / F [address] Unit #: [id number] Loc: [place] [address] Phys: Uday Maya MD Acct: [id number] Dis Date: Status: ADM IN PHONE #: [phone] Exam Date: 04/25/20192042 FAX #: Reason: lung mass EXAMS: CPT: [id number] CT CHEST W/O CONTRAST 57783 Exam: CT thorax without contrast. Location: H [...] 1 Signed Report (CONTINUED) Name: MARCELLE WEISS [facility] : 1970 Age/S: 49 / F [address] Unit #: [id number] Loc: [place] [address] Phys: Uday Maya MD Acct: [id number] Dis Date: Status: ADM IN PHONE #: [phone] Exam Date: 04/25/20192042 FAX #: Reason: lung mass EXAMS: CPT: [id number] CT CHEST W/O CONTRAST 99976 <Continued> CC: Uday Maya MD; Aletha Valerio [...] TOTAL (test code = ALKP) CBC W/AUTO [id number] 20:01:00 Test Item Value Reference Range Interpretation [...] = NO DIFF/SCN CRITERIA MDIFF) TROPONIN I [id number] 19:58:00 Test Item Value Reference Range Interpretation Comments TROPONIN I RAPID 0.00 ng/mL 0.00-0.08 N - The use o f serial (test code = sampling and te sting TROPIRAP) protocol is a recommended pra ctice- An elevated tro ponin level alone is often not sufficient for diagnosis of my ocardial infarction. LACTIC ACID [id number] 19:58:00 Test Item Value Reference Range Interpretation Comments LACTIC ACID POC (test code = 1.43 MMOL/L 0.90-1.70 N LACTP) - XR CHEST 1 [id number] 19:42:00 Name: ABHISHEKMARCELLE [facility] : 1970 Age/S: 49 / F [address] Unit #: [id number] Loc: [place] [address] Phys: Aletha Valerio MD Acct: [id number] Dis Date: Status: REG ER PHONE #: [phone] Exam Date: 04/25/2019 1920 FAX #: Reason: Suspected Sepsis EXAMS: CPT: [id number] XR CHEST 1 V 00537 Fluoro Time: DAP (Gy m2): Air Kerma [...] PAGE 1 Signed Report Name: MARCELLE WEISS [facility] : 1970 Age/S: 49 / F [address] Unit #: [id number] Loc: [place] [address] Phys: Aletha Valerio MD Acct: [id number] Dis Date: Status: REG ER PHONE #: [phone] Exam Date: 04/25/20191919 FAX #: Reason: Suspected Sepsis E XAMS: CPT: [id number] XR CHEST 1 V 52902 Fluoro Time: DAP (Gy m2): Air Kerma (mGy): <Continued> Technologist: David Cole RT(R)(CT) TrnscbDate/Time: 04/25/2019 (1941) [email or web address] Orig Print D/T: S: 04/25/2019 (1945) PAGE 2 Signed ReportBASI METABOLIC [id number] 06:51:00 Test Item Value Reference Range Interpretation [...] CA) 8.8 MG/DL 8.5-10.1 N CBC W/AUTO [id number] 06:27:00 Test Item Value Reference Range Interpretation [...] = NO DIFF/SCN CRITERIA MDIFF) BASIC METABOLIC [id number] 18:56:00 Test Item Value Reference Range Interpretation [...] CA) 9.0 MG/DL 8.5-10.1 N BASIC METABOLIC [id number] 18:53:00 Test Item Value Reference Range Interpretation [...] CA) 9.0 MG/DL 8.5-10.1 N CBC W/AUTO [id number] 18:52:00 Test Item Value Reference Range Interpretation [...] = NO DIFF/SCN CRITERIA MDIFF) CBC W/AUTO [id number] 07:16:00 Test Item Value Reference Range Interpretation [...] = NO DIFF/SCN CRITERIA MDIFF) BASIC METABOLIC [id number] 07:11:00 Test Item Value Reference Range Interpretation [...] CA) 8.7 MG/DL 8.5-10.1 N BASIC METABOLIC [id number] 11:01:00 Test Item Value Reference Range Interpretation [...] CA) 8.6 MG/DL 8.5-10.1 N CBC W/AUTO [id number] 10:24:00 Test Item Value Reference Range Interpretation [...] = NO DIFF/SCN CRITERIA MDIFF) BASIC METABOLIC [id number] 05:56:00 Test Item Value Reference Range Interpretation [...] CA) 8.8 MG/DL 8.5-10.1 N CBC W/AUTO [id number] 05:51:00 Test Item Value Reference Range Interpretation [...] = NO DIFF/SCN CRITERIA MDIFF) CBC W/AUTO [id number] 06:08:00 Test Item Value Reference Range Interpretation [...] = NO DIFF/SCN CRITERIA MDIFF) BASIC METABOLIC [id number] 05:55:00 Test Item Value Reference Range Interpretation [...] = CA) 9.0 MG/DL 8.5-10.1 N VANCOMYCIN [id number] 14:35:00 Test Item Value Reference Range Interpretation Comments VANCOMYCIN TROUGH (test code = 17.4 mcG/ML 10-20 N VANCT) BASIC METABOLIC [id number] 06:49:00 Test Item Value Reference Range Interpretation [...] CA) 8.5 MG/DL 8.5-10.1 N CBC W/AUTO [id number] 06:44:00 Test Item Value Reference Range Interpretation [...] DIFF/SCN CRITERIA MDIFF) - US GUIDANCE VASC [id number] 13:25:00 Name: MARCELLE WEISS 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 : 1970 Age/S: 49 /F [address] [facility] Unit #: [id number] Loc: [place] [address] Phys: Theodore Gonzalez MD Acct: [id number] Dis Date: Status: ADM IN PHONE #: [phone] Exam Date: 03/29/2019 1550 FAX #: Reason: PICC LINE PLACEMENT EXAMS: CPT: [id number] US GUIDANCE VASC ACCESS 86055 <Continued> Impression: Successful ultrasound and fluoroscopic guided right basilic PICC line placement. at 1325 Reported and signed by: Camacho Barboza M.D. CC: Theodore Gonzalez MD; Adele York MD Technologist: Esthela Krishnamurthy, RT(R),DAPHNIE(AB) Trnscb Date/Time: 03/29/2019 (1325) [email or web address] PAGE 2 Signed Report Name: MARCELLE WEISS [place] : 1970 Age/S: 49 / F [address] Unit #: [id number] Loc: [place] [address] Phys: Theodore Gonzalez MD Acct: [id number] Dis Date: Status: ADM IN PHONE #: [phone] Exam Date: 03/29/2019 1550 FAX #: Reason: PICC LINE PLACEMENT EXAMS: CPT: [id number] US GUIDANCE VASC ACCESS 33821 <Continued> Orig Print D/T: S: 03/29/2019 (3501) Probe: PAGE 3 Signed Report- FLUORO GUID CTRL ACC [id number] 13:25:00 Name: MARCELLE WEISS [place] : 1970 Age/S: 49 / F [address] [place] [address] Unit #: [id number] Loc: [place] [address] Phys: Bettye Mullins MD Acct: [id number] Dis Date: Status: ADM IN PHONE #: [phone] Exam Date: 03/29/2019 1301 FAX #: Reason: prolonged antibx EXAMS: CPT: [id number] FLUORO GUID CTRL ACC DEV 95407 Fluoro Time: DAP (Gy m2): Air Kerma (mGy): Examination: PICC line insertion Location code: S17 Comparison: None 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 : 1970 Age/S: 49 / F [address] [place] [address] Unit #: [id number] Loc: [place] [address] Phys: Bettye Mullins MD Acct: [id number] DisDate: Status: ADM IN PHONE #: [phone] Exam Date: 03/29/2019 1301 FAX #: Reason: prolonged antibx EXAMS: CPT: [id number] GUID CTRL ACC DEV 97357 Fluoro Time: DAP (Gy m2): Air Kerma (mGy): <Continued> Successful ultrasound and fluoroscopic guided right basilic PICC line placement. at 1325 Reported and signed by: Camacho Barboza M.D. CC: Theodore Gonzalez MD; Bettye Mullins MD; Adele oYrk MD PAGE 2 Signed Report Name:MARCELLE WEISS [facility] : 1970 Age/S: 49 / F [address] [facility] Unit #: [id number] Loc: [place] [address] Phys: Bettye Mullins MD Acct: [id number] Dis Date: Status: ADM IN PHONE #: [phone] Exam Date: 03/29/2019 1301 FAX #: Reason: prolonged antibx EXAMS: CPT: [id number] FLUORO GUID CTRL ACC DEV 27799 Fluoro Time: DAP(Gy m2): Air Kerma (mGy): <Continued> Technologist: Ashlyn Maldonado RT(R)(MR) Trnscb Date/Time: 03/29/2019 (5906) SomJH12 Orig Print D/T: S: 03/29/2019 (8355) PAGE 3 Signed ReportVANCOMYCIN [id number] 00:16:00 Test Item Value Reference Range Interpretation Comments VANCOMYCIN TROUGH (test code = 20.7 mcG/ML 10-20 H VANCT) BASIC METABOLIC [id number] 09:06:00 Test Item Value Reference Range Interpretation [...] CA) 8.6 MG/DL 8.5-10.1 N CBC W/AUTO [id number] 08:47:00 Test Item Value Reference Range Interpretation [...] CRITERIA MDIFF) Comment: postop- XR FLUOROSCOPY 0-60 [id number] 15:46:00 Name: MARCELLE WEISS [facility] : 1970 Age/S: 49 / F [address] Unit #: [id number] Loc: [place] [address] Phys: Abilio Maldonado MD Acct: [id number] Dis Date: Status: CAN [facility] PHONE #: [phone] Exam Date: 03/27/2019 0940 FAX #: Reason: LEFT ANKLE I D WITH ANTIBIOTIC BEADS EXAMS: CPT: [id number] XR FLUOROSCOPY 0-60 MIN 38739 Fluoro Time: 4 SEC DAP (Gy m2): [...] PAGE 1 Signed Report [facility] [place] [facility] 1970 Age/S: 49 / F [address] Unit #: [id number] Loc: [place] [address] Phys: Abilio Maldonado MD Acct: [id number] Dis Date: Status: CAN [facility] PHONE #: [phone] Exam Date: 03/27/2019 0940 FAX #: Reason: LEFT ANKLE I D WITH ANTIBIOTIC BEADS EXAMS: CPT: [id number] XR FLUOROSCOPY 0-60 MIN 82964 Fluoro Time: 4 SEC DAP (Gy m2): Air Kerma (mGy): <Continued> Technologist: Lisa Machuca, RT(R) Trnscb Date/Time: 03/27/2019 (1546) SomJH12 Orig Print D/T: S: 03/27/2019 (4639) PAGE 2 Signed ReportUR HCG [id number] 06:57:00 Test Item Value Reference Range Interpretation Comments UR HCG QUAL (test code = HCGQLU) NEGATIVE NEGATIVE UA RFLX MICR CULT IF [id number] 06:54:00 Test Item Value Reference Range Interpretation [...] culture: Flank PainUA RFLX MICR CULT IF [id number] 06:54:00 Test Item Value Reference Range Interpretation [...] CLEAN CATCHIndication for culture: Flank PainBASIC METABOLIC [id number] 08:09:00 Test Item Value Reference Range Interpretation [...] CA) 8.9 MG/DL 8.5-10.1 N VITAMIN D [id number] 08:09:00 Test Item Value Reference Range Interpretation Comments VITAMIN D 33.2 ng/mL 30.0-100.0 Vitamin D defic iency has 25-HYDROXY (test been define d by the code = VITD25) [place] [facility] edicine and an Endocrine So ciety practice guidel ine as alevel of serum 25-OH vitamin D less than 20 ng/mL (1,2).The Endocrine Society went on to further define vitamin Dinsufficiency as a level between 21 and 29 ng/mL (2).1. IOM (Ins titute of Medicine). 2010 . Dietary reference int akes for calcium and D. [place]: [employer] .2. Caitlin MF, Jerrell [place], Parish pack ROLLINS, et al. Evaluatio n, treatment, and prevention of vitamin D deficiency: an Endocrine Society clinica l practice guideline. ALLY EM. 2010; 96(7):1911-30.P erformed At: [facility] [id number] [place], [place] [id number] Abilio Rosales MD Ph:[phone] CBC W/AUTO [id number] 13:29:00 Test Item Value Reference Range Interpretation [...] code = NO DIFF/SCN CRITERIA MDIFF) SED [id number] 13:29:00 Test Item Value Reference Range Interpretation Comments SED RATE (test code = SEDW) 10 mm/hr 0-20 N URINALYSIS [id number] 13:12:00 Test Item Value Reference Range Interpretation [...] LEUU) Urine Specimen Type: Clean CatchC REACTIVE [id number] 12:47:00 Test Item Value Reference Range Interpretation Comments C REACTIVE PROTEIN (test code = 1.260 MG/DL 0.000-0.3 H CRP) BASIC METABOLIC [id number] 12:46:00 Test Item Value Reference Range Interpretation [...] CA) 8.9 MG/DL 8.5-10.1 N VITAMIN D [id number] 12:46:00 Test Item Value Reference Range Interpretation Comments VITAMIN D 25-HYDROXY (test code = VITD25) PROTHROMBIN [id number] 12:33:00 Test Item Value Reference Range Interpretation Comments PT PATIENT (test code = PTP) 11.4 SECONDS 9.3-12.9 N INTERNATIONAL NORMAL RATIO 0.99 INR Unit 0.8-1.2 N (test code = INR) THROMBOPLASTIN TIME [id number] 12:33:00 Test Item Value Reference Range Interpretation Comments THROMBOPLASTIN TIME PARTIAL 29.0 SECONDS 26-35 N (test code = PTT) CBC W/AUTO [id number] 12:32:00 Test Item Value Reference Range Interpretation [...] code = NO DIFF/SCN CRITERIA MDIFF) SED [id number] 12:32:00 Test Item Value Reference Range Interpretation Comments SED RATE (test code = SEDW) mm/hr 0-20 - XR CHEST 1 [id number] 12:00:00 Name: ABHISHEK,MARCELLE Cornel[facility] : 1970 Age/S: 49 / F [address] Unit #: [id number] Loc: [place] [address] Phys: Abilio Maldonado MD Acct: [id number] Dis Date: Status: PRE WAC PHONE #: [phone] Exam Date: 03/03/2019 1152 FAX #: Reason: PRE OP EXAMS: CPT: [id number] XR CHEST 1 V 49659 Fluoro Time: DAP (Gy m2): Air Kerma [...] PAGE 1 Signed Report Name: MARCELLE WEISS [facility] : 1970 Age/S: 49 / F [address] [facility] Unit #: [id number] Loc: [place] [address] Phys: Abilio Maldonado MD Acct: [id number] Dis Date: Status: PRE [facility] PHONE #: [phone] Exam Date: 03/03/2019 1152 FAX #: Reason: PRE OP EXAMS: CPT: [id number] XR CHEST 1 V 96708 Fluoro Time: DAP (Gy m2): Air Kerma (mGy): <Continued> Technologist: Kevin Herrera, RT(R)(CT); Lisa Machuca, RT(R) Trnscb Date/Time: 03/03/2019 (1200) t.[email or web address] Orig Print D/T: S: 03/03/2019 (1206) PAGE 2 Signed Report
[2020-11-20 15:34] LABS: Absolute Lymphocytes (CBC) 1.4 K/uL (0.7-4.9); Basophils % 1.1 % (0-1.3); Hematocrit 31.9 % (36.0-45.0); Lymphocytes % 22.9 % (15.3-44.8); MPV 9.5 fL (7.6-11.3); RBC Red Blood Cell Count 3.74 M/uL (3.86-4.86)
[2020-11-20] MEDS ORDERED: NA CHLORIDE 0.9% 500 ML ONE (15:52)
[2020-11-20] MEDS ORDERED: METOCLOPRAMIDE 10 MG/2mL INJ ONE (15:52)
[2020-11-20] MEDS ORDERED: MEPERIDINE HCL 25 MG/ML SYR ONE (15:52)
[2020-11-20 16:05] LABS: ALT/SGPT 20 U/L (12-78); AST/SGOT 16 U/L (15-37); Albumin 3.6 g/dL (3.4-5.0); Alkaline Phosphatase 63 U/L (45-117); BUN Blood Urea Nitrogen 7 mg/dL (7-18); Bicarbonate 28 mmol/L (21-32); Bilirubin Direct 0.1 mg/dL (0-0.2); Bilirubin Total 0.3 mg/dL (0.2-1.0); Glucose Level 83 mg/dL (74-106); Lipase 65 U/L (73-393); Potassium 3.7 mmol/L (3.5-5.1); Protein, Total 7.1 g/dL (6.4-8.2); Sodium Level 139 mmol/L (136-145)
--- NOTE | 2020-11-20 17:09 | RAD REPORT ---
EXAM DESCRIPTION: CT - Abdomen Pelvis Wo Contrast - 11/20/2020 4:52 pm CLINICAL HISTORY: Abdominal pain. ABD PAIN COMPARISON: Abdomen Pelvis Wo Contrast dated 09/30/2020; Abdomen Pelvis Wo Contrast dated 02/06/20; Abdomen Pelvis Wo Contrast dated 11/14/2019; Abdomen Pelvis Wo Contrast dated 09/22/2018 TECHNIQUE: CT imaging of the abdomen and pelvis was performed without contrast. Solid organ, bowel a nd vascular assessment is limited due to lack of IV and oral contrast. All CT scans are performed using dose optimization technique as appropriate and may include automated exposure control or mA/KV adjustment according to patient size. FINDINGS: Small to moderate hiatal hernia. Cardiomegaly. Left nephrectomy. The spleen is unremarkable. The pancreas is unremarkable. Right kidne y is within normal limits. No retroperitoneal lymphadenopathy. The bladder is unremarkable. Hysterect loli. No bowel obstruction is identified. No evidence appendicitis. No fractures identified. IMPRESSION: No acute intra-abdominal or pelvic findings. A limited non-contrast examination was performed as detailed.
[2020-11-20] MEDS ORDERED: MEPERIDINE HCL 50 MG/ML ONE (17:42)
[2020-11-20] MEDS ORDERED: FAMOTIDINE 20 MG TAB ONE (17:42)
--- NOTE | 2020-11-20 17:58 | ER ---
Nurse's Notes [facility] Ami Name: Oleg Rosenberg Age: 50 yrs Sex: Female : 1970 Arrival Date: 11/20/2020 Time: 14:17 Bed 27 Private MD: Diagnosis: Abdominal pain, unspecified;Nausea with vomiting, unspecified Presentation: 11/20 14:19 Chief complaint: EMS states: Abdominal pain, diffuse, N/V x 2 days. Pt on home O2 at ca1 2LPM. BGL 100. Coronavirus screen: Client denies travel out of the [place] in the last 14 days. nausea, vomiting. Client presents with at least one sign or symptom that may indicate coronavirus-19. Standard/surgical mask placed on the client. Provider contacted for isolation considerations. Ebola Screen: Patient negative for fever greater than or equal to 101.5 degrees Fahrenheit, and additional compatible Ebola Virus Disease symptoms Patient denies exposure to infectious person. Patient denies travel to an Ebola-affected area in the 21 days before illness onset. No symptoms or risks identified at this time. Initial Sepsis Screen: Does the patient meet any 2 criteria? No. Patient's initial sepsis screen is negative. Does the patient have a suspected source of infection? No. Patient's initial sepsis screen is negative. Risk Assessment: Do you want to hurt yourself or someone else? Patient reports no desire to harm self or others. Onset of symptoms was November 20, 2020. 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 Flu vaccine is not up to date. - Social history:: Smoking status: Patient denies any tobacco usage or history of. Screenin:35 Abuse screen: Denies threats or abuse. Denies injuries from another. Nutritional ld1 screening: No deficits noted. Tuberculosis screening: No symptoms or risk factors identified. Fall Risk None identified. Assessment: 14:35 General: Appears in no apparent distress. comfortable, Behavior is cooperative, ld1 appropriate for age, anxious. Pain: Complains of pain in abdomen Pain does not radiate. Pain currently is 8 out of 10 on a pain scale. Quality of pain is described as burning, stabbing, Pain began suddenly, Is continuous. Neuro: Level of Consciousness is awake, alert, obeys commands, Oriented to person, place, time, situation. Cardiovascular: Capillary refill < 3 seconds Patient's skin is warm and dry. Respiratory: Airway is patent Respiratory effort is even, unlabored, Respiratory pattern is regular, symmetrical. GI: Abdomen is non-distended, obese. : No signs and/or symptoms were reported regarding the genitourinary system. EENT: No signs and/or symptoms were reported regarding the EENT system. Derm: No signs and/or symptoms reported regarding the dermatologic system. Musculoskeletal: No signs and/or symptoms reported regarding the musculoskeletal system. 16:42 Reassessment: Patient appears in no apparent distress at this time. ld1 17:30 Reassessment: Patient appears in no apparent distress at this time. No changes from ld1 previously documented assessment. Patient and/or family updated on plan of care and expected duration. Pain level reassessed. Vital Signs: 14:19 BP 151 / 83; Pulse 52; Resp 18 S; Temp 98.1(O); Pulse Ox 100% on 2 lpm NC; Weight ca1 165.56 kg (R); Height 5 ft. 6 in. (167.64 cm) (R); Pain 10/10; 16:42 BP 146 / 88; Pulse 49; Resp 18; Pulse Ox 99% on 2 lpm NC; ld1 17:30 BP 150 / 86; Pulse 58; Resp 18; Pulse Ox 99% on 2 lpm NC; ld1 14:19 Body Mass Index 58.91 (165.56 kg, 167.64 cm) ca1 ED Course: 14:17 Patient arrived in ED. ca1 14:22 Triage completed. ca1 14:22 Arm band placed on right wrist. ca1 14:28 Lindsey Mackey, RN is Primary Nurse. ld1 14:36 Patient has correct armband on for positive identification. Bed in low position. Call mh5 light in reach. Side rails up X2. Pillow given. Pulse ox on. NIBP on. 14:37 Missed attempt(s): 22 gauge in left in right forearm. antecubital area. upper arm. mh5 15:04 Abhi Adams PA is PHCP. cp 15:05 Rodrigo Delacruz MD is Attending Physician. cp 16:52 CT Abd/Pelvis - Without Contrast In Process Unspecified. EDMS 18:15 No provider procedures requiring assistance completed. IV discontinued, intact, ld1 bleeding controlled, No redness/swelling at site. Administered Medications: 15:20 Drug: Reglan (metoCLOPramide) 10 mg Route: IVP; Site: left antecubital; ld1 15:20 Drug: NS 0.9% 500 ml Route: IV; Rate: 500 ml/hr; Site: left antecubital; ld1 15:25 Drug: Demerol (meperidine) 25 mg Route: IVP; Site: left antecubital; ld1 17:24 Follow up: Response: No adverse reaction ld1 17:11 Not Given (Physician Discretion): Demerol (meperidine) 25 mg IVP once; RASS on ADMIN: cp Combtv4, Very Agttd3, Agttd2, Rstlss1, AlertClm0, Drwsy-1, Lt Sdtn-2, Mod Sdtn-3, Dp Sdtn-4, UnArsble-5 17:24 Drug: Pepcid (famotidine) 20 mg Route: IVP; Site: Other; ld1 17:25 Follow up: Response: No adverse reaction ld1 17:24 Drug: Demerol (meperidine) 50 mg Route: IM; Site: right deltoid; ld1 17:25 Follow up: Response: No adverse reaction ld1 Outcome: 17:57 Discharge ordered by . cp 18:17 Discharged to home via wheelchair, with family. ld1 18:17 Condition: stable 18:17 Discharge instructions given to patient, Instructed on discharge instructions, follow up and referral plans. medication usage, Demonstrated understanding of instructions, follow-up care, medications. 18:18 Patient left the ED. ld1 Signatures: Dispatcher Med[employer] Abhi Jolley PA PA cp Martinez, [facility] Marylu Ochoa, RN RN ca1 Lindsey Mackey, HARDIK RN ld1
--- NOTE | 2020-11-20 17:58 | EDPHYS ---
Physician Documentation [facility] Name: Oleg Rosenberg Age: 50 yrs Sex: Female : 1970 Arrival Date: 11/20/2020 Time: 14:17 Bed 27 Private MD: ED Physician Rodrigo Delacruz HPI: 11/20 15:20 This 50 yrs old Female presents to ER via EMS with complaints of Abdominal cp Pain. 15:20 The patient presents with abdominal pain that is diffuse. Associated signs and cp symptoms: Pertinent positives: nausea and vomiting, Pertinent negatives: chest pain, constipation, diarrhea, fever, vomiting blood. 15:20 Onset: The symptoms/episode began/occurred 2 day(s) ago. cp 15:20 The symptoms do not radiate. The symptoms are described as constant. Severity of pain: cp in the emergency department the pain is unchanged despite home interventions. 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 Flu vaccine is not up to date. - Social history:: Smoking status: Patient denies any tobacco usage or history of. ROS: 15:30 Eyes: Negative for injury, pain, redness, and discharge. cp 15:30 Constitutional: Negative for body aches, chills, fever. 15:30 Cardiovascular: Negative for chest pain. 15:30 Respiratory: Negative for cough, shortness of breath, wheezing. 15:30 Abdomen/GI: Positive for abdominal pain, nausea and vomiting, Negative for diarrhea, constipation, hematemesis. 15:30 Back: Negative for radiated pain. 15:30 Neuro: Negative for altered mental status, headache, weakness. 15:30 All other systems are negative. Exam: 15:35 Constitutional: The patient appears in no acute distress, alert, awake, cp non-diaphoretic, non-toxic, well developed, well nourished, obese. 15:35 Head/Face: Normocephalic, atraumatic. cp 15:35 Eyes: Periorbital structures: appear normal, Conjunctiva: normal, no exudate, no injection, Sclera: no appreciated abnormality, Lids and lashes: appear normal, bilaterally. 15:35 ENT: External ear(s): are unremarkable, Nose: is normal, Mouth: Lips: moist, Oral mucosa: moist, Posterior pharynx: Airway: no evidence of obstruction, patent. 15:35 Chest/axilla: Inspection: normal, Palpation: is normal, no crepitus, no tenderness. 15:35 Cardiovascular: Rate: bradycardic, Rhythm: regular, Edema: is not appreciated, JVD: is not appreciated. 15:35 Respiratory: the patient does not display signs of respiratory distress, Respirations: normal, no use of accessory muscles, no retractions, labored breathing, is not present, Breath sounds: are clear throughout, no decreased breath sounds, no stridor, no wheezing. 15:35 Abdomen/GI: Inspection: obese Bowel sounds: active, all quadrants, Palpation: soft, in all quadrants, severe abdominal tenderness, in all quadrants, rebound tenderness, is not appreciated, involuntary guarding, is not appreciated. 15:35 Back: CVA tenderness, is absent. Vital Signs: 14:19 BP 151 / 83; Pulse 52; Resp 18 S; Temp 98.1(O); Pulse Ox 100% on 2 lpm NC; Weight ca1 165.56 kg (R); Height 5 ft. 6 in. (167.64 cm) (R); Pain 10/10; 16:42 BP 146 / 88; Pulse 49; Resp 18; Pulse Ox 99% on 2 lpm NC; ld1 17:30 BP 150 / 86; Pulse 58; Resp 18; Pulse Ox 99% on 2 lpm NC; ld1 14:19 Body Mass Index 58.91 (165.56 kg, 167.64 cm) ca1 MDM: 15:12 Patient medically screened. cp 16:00 Differential diagnosis: bowel obstruction, non-specific abd pain, pancreatitis, Peptic cp Ulcer Disease, Perf. Duodenal Ulcer, Perf. Gastric Ulcer, Pyelonephritis, Ureterolithiasis, urinary tract infection. 17:57 Data reviewed: vital signs, nurses notes, lab test result(s), radiologic studies, CT cp scan, and as a result, I will discharge patient. 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 Response to treatment: the patient's symptoms have markedly improved after treatment, VSS. Pain and nausea improved with meds. Vomiting resolved. Labs and radiology tests negative for acute findings. Will discharge to home for continued monitoring. 11/20 15:14 Order name: Basic Metabolic Panel; Complete Time: 16:25 11/20 15:14 Order name: CBC with Diff; Complete Time: 16:25 cp 11/20 16:25 Interpretation: Normal except: RBC 3.74; HGB 10.7; HCT 31.9; RDW 15.4. 11/20 15:14 Order name: Hepatic Function; Complete Time: 16:25 cp 11/20 15:14 Order name: Lipase; Complete Time: 16:25 cp 11/20 16:35 Order name: CT Abd/Pelvis - Without Contrast; Complete Time: 17:11 cp 11/20 17:37 Interpretation: Report reviewed. 11/20 15:14 Order name: IV Saline Lock; Complete Time: 15:26 cp 11/20 15:14 Order name: Labs collected and sent; Complete Time: 15:26 11/20 17:19 Order name: PO challenge; Complete Time: 17:24 cp Administered Medications: 15:20 Drug: Reglan (metoCLOPramide) 10 mg Route: IVP; Site: left antecubital; ld1 15:20 Drug: NS 0.9% 500 ml Route: IV; Rate: 500 ml/hr; Site: left antecubital; ld1 15:25 Drug: Demerol (meperidine) 25 mg Route: IVP; Site: left antecubital; ld1 17:24 Follow up: Response: No adverse reaction ld1 17:11 Not Given (Physician Discretion): Demerol (meperidine) 25 mg IVP once; RASS on ADMIN: cp Combtv4, Very Agttd3, Agttd2, Rstlss1, AlertClm0, Drwsy-1, Lt Sdtn-2, Mod Sdtn-3, Dp Sdtn-4, UnArsble-5 17:24 Drug: Pepcid (famotidine) 20 mg Route: IVP; Site: Other; ld1 17:25 Follow up: Response: No adverse reaction ld1 17:24 Drug: Demerol (meperidine) 50 mg Route: IM; Site: right deltoid; ld1 17:25 Follow up: Response: No adverse reaction ld1 Disposition Summary: 11/20/20 17:57 Discharge Ordered Location: Home cp Problem: new cp Symptoms: have improved cp Condition: Stable cp Diagnosis - Abdominal pain, unspecified cp - Nausea with vomiting, unspecified cp Followup: cp - With: Private Physician - When: 1 - 2 days - Reason: Recheck today's complaints Discharge Instructions: - Discharge Summary Sheet cp - Abdominal Pain, Adult cp - Nausea and Vomiting, Adult cp Forms: - Medication Reconciliation Form cp - Thank You Letter cp - Antibiotic Education cp - Prescription Opioid Use cp Prescriptions: - Reglan 10 mg Oral Tablet - take 1 tablet by ORAL route every 6 hours take 30 minutes before meals and at cp bedtime; 20 tablet; Refills: 0, Product Selection Permitted - Protonix 40 mg Oral Tablet - take 1 tablet by ORAL route once daily; 30 tablet; Refills: 0, Product cp Selection Permitted Signatures: Dispatcher [employer] EDME Abhi Adams PA PA cp Marylu Ochoa RN RN ca1 Lindsey Mackey RN RN ld1 Corrections: (The following items were deleted from the chart) 15:55 15:14 Urine Test ordered. cp ld1 19:11/19 15:30 Constitutional: Negative for body aches, chills, fever, cp cp 11/20 19:11/19 15:30 Abdomen/GI: Positive for abdominal pain, nausea and vomiting, Negative for cp diarrhea, constipation, hematemesis, cp 11/20 19:11/19 15:30 Respiratory: Negative for cough, shortness of breath, wheezing, cp cp 11/20 19:11/19 15:30 Cardiovascular: Negative for chest pain, cp cp 11/20 19:11/19 15:30 Eyes: Negative for injury, pain, redness, and discharge, cp cp 11/20 19:11/19 15:30 Back: Negative for radiated pain, cp cp 11/20 18:11/19 15:30 Neuro: Negative for altered mental status, headache, weakness, cp cp 11/20 18:11/19 15:30 All other systems are negative, cp cp
[2020-11-20 18:45] VITALS: TEMP 98.1
[2020-11-20 18:46] VITALS: O2SAT 99
[2020-11-20 18:48] VITALS: BP 150/86
== END 2020-11-20 18:18 | disposition home or self-care (01) ==
LOC: ER 14:15
DX: R11.2 Nausea with vomiting, unspecified (principal); Z88.0 Allergy status to penicillin; Z88.5 Allergy status to narcotic agent; Z88.6 Allergy status to analgesic agent; Z88.8 Allergy status to other drugs, medicaments and biological substances; Z91.041 Radiographic dye allergy status; Z91.048 Other nonmedicinal substance allergy status
CPT/HCPCS: 85025; 80048; 36415; 80076; 83690; 74176; 96372; 99284; J2765; J2175 ×2; J7040

== ENCOUNTER 2021-03-07 18:37 | Emergency (ER) | payer OTHER ==
--- NOTE | 2021-03-07 20:09 | RAD REPORT ---
EXAM DESCRIPTION: RAD - Chest Single View - 03/07/2021 7:51 pm CLINICAL HISTORY: volume overload COMPARISON: No comparisonsChest Single View dated 08/04/2020; Chest Single View dated 07/31/2020; Chest Single View dated 01/28/2020; Chest Single View dated 12/19/2019 FINDINGS: Lines: None. Lungs: Pulmonary vascular congestion Pleural: No significant pleural effusions or pneumothorax. Cardiac: Cardiomegaly. Bones: No acute fractures. Other: IMPRESSION: Pulmonary vascular congestion.
[2021-03-07 20:20] LABS: Absolute Lymphocytes (CBC) 1.9 K/uL (0.7-4.9); Basophils % 0.5 % (0-1.3); Lymphocytes % 30.6 % (15.3-44.8); MPV 9.1 fL (7.6-11.3); RBC Red Blood Cell Count 3.35 M/uL (3.86-4.86)
[2021-03-07 20:34] LABS: Urine Blood Trace-intact (Negative); Urine Glucose Negative (Negative); Urine Protein Negative (Negative); Urine Specific Gravity 1.025 (1.005-1.030); Urine pH 8.5 (5.0-7.0)
[2021-03-07 20:38] LABS: ALT/SGPT 22 U/L (12-78); AST/SGOT 17 U/L (15-37); Albumin 3.3 g/dL (3.4-5.0); Alkaline Phosphatase 80 U/L (45-117); BUN Blood Urea Nitrogen 16 mg/dL (7-18); Bicarbonate 36 mmol/L (21-32); Bilirubin Direct < 0.1 mg/dL (0-0.2); Bilirubin Total 0.2 mg/dL (0.2-1.0); Creatine Phosphokinase 50 U/L (26-192); Glucose Level 104 mg/dL (74-106); NT PRO-BNP 202 pg/mL (<125); Protein, Total 6.7 g/dL (6.4-8.2); Sodium Level 142 mmol/L (136-145); Troponin (Emerg Dept Use Only) < 0.02 ng/mL (0.0-0.045)
[2021-03-07 20:55] LABS: Protime INR 0.92
[2021-03-07] MEDS ORDERED: FUROSEMIDE 100 MG/10 ML VIAL IV ONE (21:02)
[2021-03-07] MEDS ORDERED: MEPERIDINE HCL 50 MG/ML ONE (21:02)
--- NOTE | 2021-03-07 21:21 | ER ---
Nurse's Notes [facility] Name: Oleg Rosenberg Age: 51 yrs Sex: Female : 1970 Arrival Date: 03/07/2021 Time: 18:39 Bed 16 Private MD: Diagnosis: Generalized edema Presentation: 03/07 18:41 Chief complaint: Patient states: Swelling all over and pain all over for over 1 week. ll1 Out of lasix for 2 weeks. Coronavirus screen: Vaccine status: Patient reports being unvaccinated. Client denies travel out of the [place] in the last 14 days. At this time, the client does not indicate any symptoms associated with coronavirus-19. Ebola Screen: Patient denies travel to an Ebola-affected area in the 21 days before illness onset. Initial Sepsis Screen: Does the patient meet any 2 criteria? No. Patient's initial sepsis screen is negative. Does the patient have a suspected source of infection? No. Patient's initial sepsis screen is negative. Risk Assessment: Do you want to hurt yourself or someone else? Patient reports no desire to harm self or others. Onset of symptoms was February 21, 2021. 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 - Social history:: Smoking status: Patient/guardian denies using tobacco, Stopped _ months ago 8. - Family history:: not pertinent. - Hospitalizations: : No recent hospitalization is reported. Screenin:59 Abuse screen: Denies threats or abuse. Denies injuries from another. Nutritional jt3 screening: No deficits noted. Tuberculosis screening: No symptoms or risk factors identified. Fall Risk None identified. Assessment: 18:59 General: Appears in no apparent distress. Behavior is calm, cooperative. Pain: jt3 Generalized pain everywhere. Pain currently is 9 out of 10 on a pain scale. Quality of pain is described as throbbing. 18:59 Pain: Pain began 2-3 days ago. Neuro: No deficits noted. Cardiovascular: Heart tones S1 jt3 S2 present Rhythm is sinus rhythm. Respiratory: Reports shortness of breath at rest on exertion Pt. reports SOB and has edema bilaterally. Alert and oriented x4. 19:09 Reassessment: Pt ambulate to restroom. Instruct on need for urine sample. jt3 19:25 Reassessment: Pt return to room with assistance, unable to void at this time, will make dc2 aware . 19:26 Reassessment: Pt return to room after trip to bathroom, Oyxgen 89% on room air, 2L NC dc2 placed on pt. 19:45 Reassessment: Unsuccessful IV / Blood attempt x 2 , ICU Tanji at bedside for attempt. dc2 Pt instructed on EKG and Catheter for POC. Verbalizes understanding. Vital Signs: 18:41 BP 132 / 99; Pulse 71; Resp 20; Temp 98.6; Pulse Ox 100% ; Weight 167.83 kg; Height 5 ll1 ft. 6 in. (167.64 cm); Pain 9/10; 19:11 BP 126 / 67; Pulse 78; Resp 20; Pulse Ox 98% on 2 lpm NC; jt3 21:00 BP 121 / 67; Pulse 63; Resp 18; Pulse Ox 98% ; Pain 8/10; dc2 18:41 Body Mass Index 59.72 (167.83 kg, 167.64 cm) ll1 ED Course: 18:39 Patient arrived in ED. ll1 18:40 Arm band placed on Patient placed in an exam room, on a stretcher. ll1 18:49 Triage completed. ll1 18:59 Ernesto Cordero, RN is Primary Nurse. jt3 18:59 Patient has correct armband on for positive identification. Bed in low position. Call jt3 light in reach. Side rails up X2. 18:59 No provider procedures requiring assistance completed. jt3 19:02 Ihsan Song MD is Attending Physician. rn 19:03 ED physician to see patient. dc2 19:33 X-ray(s) taken. dc2 19:51 XRAY CXR (1 view) In Process Unspecified. EDMS 20:01 Basic Metabolic Panel Sent. dc2 20:01 CBC with Automated Diff Sent. dc2 20:01 Creatine Phosphokinase Sent. dc2 20:01 BMP Sent. dc2 20:01 CBC with Diff Sent. dc2 20:01 CPK Sent. dc2 20:01 Hepatic Function Sent. dc2 20:01 NT PRO-BNP Sent. dc2 20:01 PT-INR Sent. dc2 20:01 Ptt, Activated Sent. dc2 20:01 Troponin (emerg Dept Use Only) Sent. dc2 21:20 Vanesa Arguello MD is Referral Physician. rn 21:30 IV discontinued, intact, bleeding controlled, No redness/swelling at site. Pressure dc2 dressing applied. Administered Medications: 21:03 Drug: Demerol (meperidine) 50 mg Route: IVP; Infused Over: 3 mins; Site: left dc2 antecubital; 21:30 Follow up: Response: Pain is decreased dc2 21:10 Drug: Lasix (furosemide) 40 mg Route: IVP; Site: left antecubital; dc2 21:35 Follow up: Response: No adverse reaction dc2 Outcome: 21:20 Discharge ordered by MD. rn 21:30 Discharged to home via wheelchair. dc2 21:30 Condition: stable 21:30 Discharge instructions given to patient, Instructed on discharge instructions, follow up and referral plans. Demonstrated understanding of instructions, follow-up care, Prescriptions given X 2. 21:40 Patient left the ED. dc2 Signatures: Dispatcher [employer] EDMN Ihsan Song MD MD rn Lewis, Lynsay RN RN ll1 Shirlene Mayberry RN RN dc2 Ernesto Cordero RN RN jt3 Corrections: (The following items were deleted from the chart) 19:19 19:19 ED physician to see patient. dc2 dc2 21:16 18:40 PMHx: Asthma; ll1 dc2 21:16 18:40 PMHx: COPD; ll1 dc2 21:16 18:40 PMHx: Bronchitis; ll1 dc2 21:16 18:40 PMHx: Bipolar disorder; ll1 dc2 21:16 18:40 PMHx: Depression; ll1 dc2 21:16 18:40 PMHx: kidney cancer; ll1 dc2
--- NOTE | 2021-03-07 21:21 | EDPHYS ---
Physician Documentation [facility] Name: Oleg Rosenberg Age: 51 yrs Sex: Female : 1970 Arrival Date: 03/07/2021 Time: 18:39 Bed 16 Private MD: ED Physician Ihsan Song HPI: 03/07 19:51 This 51 yrs old Female presents to ER via EMS with complaints of Feet rn Swelling, Leg Pain. 19:51 The patient presents with swelling. The complaints affect the Entire body. Context: The rn problem was sustained at an unknown site, resulted from an unknown cause, the patient can fully bear weight, the patient is able to ambulate, Problem is a result from a previous injury: No. 19:51 Onset: The symptoms/episode began/occurred 2 week(s) ago. Modifying factors: The rn symptoms are alleviated by nothing. the symptoms are aggravated by weight bearing. Associated signs and symptoms: Pertinent positives: swelling, Pertinent negatives fever, numbness, tingling, weakness. Severity of symptoms: At their worst the symptoms were moderate, in the emergency department the symptoms are unchanged. The patient has experienced similar episodes in the past. The patient has been recently seen by a physician:. Patient states swollen all over, worse in both legs and abdomen. Denies shortness of breath. Denies fever. Reports was put on Lasix for lower extremity edema for 2 months and that prescription ran out 2 weeks ago. Now reports 2 weeks of increased swelling that is worse than before. Denies history of congestive heart failure. Reports only has 1 kidney and has decreased urine output for the last 2 weeks.. 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 - Social history:: Smoking status: Patient/guardian denies using tobacco, Stopped _ months ago 8. - Family history:: not pertinent. - Hospitalizations: : No recent hospitalization is reported. ROS: 19:51 Constitutional: Negative for fever, chills, and weight loss, Eyes: Negative for injury, rn pain, redness, and discharge, Neck: Negative for injury, pain, and swelling, Cardiovascular: Negative for chest pain, palpitations Respiratory: Negative for shortness of breath, cough, wheezing, and pleuritic chest pain, Abdomen/GI: Negative for abdominal pain, nausea, vomiting, diarrhea, and constipation, Back: Negative for injury and pain, : Positive for decreased urinary output MS/Extremity: Positive for swelling of both legs Skin: Negative for injury, rash, and discoloration, Neuro: Negative for headache, weakness, numbness, tingling, and seizure. Exam: 19:51 Constitutional: Obese female, no acute distress Head/Face: Normocephalic, atraumatic. rn Eyes: Periorbital areas with no swelling, redness, or edema. ENT: Dry mucous membranes Cardiovascular: Regular rate and rhythm. No pulse deficits. Respiratory: No increased work of breathing, no retractions or nasal flaring. Abdomen/GI: Soft, non-tender Skin: Warm, dry MS/ Extremity: Pulses equal, no cyanosis. 2+ pitting edema bilateral lower extremities. No erythema or cyanosis Neuro: Awake and alert, GCS 15 20:59 ECG was reviewed by the Attending Physician. rn Vital Signs: 18:41 BP 132 / 99; Pulse 71; Resp 20; Temp 98.6; Pulse Ox 100% ; Weight 167.83 kg; Height 5 ll1 ft. 6 in. (167.64 cm); Pain 9/10; 19:11 BP 126 / 67; Pulse 78; Resp 20; Pulse Ox 98% on 2 lpm NC; jt3 21:00 BP 121 / 67; Pulse 63; Resp 18; Pulse Ox 98% ; Pain 8/10; dc2 18:41 Body Mass Index 59.72 (167.83 kg, 167.64 cm) ll1 MDM: 19:02 Patient medically screened. rn 21:18 Differential diagnosis: edema, dependent edema, kidney failure, heart failure. Data rn reviewed: vital signs, nurses notes, old medical records, lab test result(s), EKG, radiologic studies, plain films, and as a result, I will discharge patient. Test interpretation: by ED physician or midlevel provider: ECG, plain radiologic studies, Chest x-ray negative for pneumonia or pleural effusions. Counseling: I had a detailed discussion with the patient and/or guardian regarding: the historical points, exam findings, and any diagnostic results supporting the discharge/admit diagnosis, lab results, radiology results, the need for outpatient follow up, to return to the emergency department if symptoms worsen or persist or if there are any questions or concerns that arise at home. Special discussion: I discussed with the patient/guardian in detail that at this point there is no indication for admission to the hospital. It is understood, however, that if the symptoms persist or worsen the patient needs to return immediately for re-evaluation. Based on the history and exam findings, there is no indication for further emergent testing or inpatient evaluation. I discussed with the patient/guardian the need to see the telephone solicitor for further evaluation of the symptoms. I discussed with the patient/guardian the need to see the primary care provider for further evaluation of the symptoms. ED course: Patient has follow-up with her telephone solicitor for echo next week. No kidney failure or heart failure noted today. Will DC home with Lasix for 1 week and then has follow-up with her telephone solicitor for further instructions depending on echo results.. 03/07 19:21 Order name: BMP rn 03/07 19:21 Order name: CBC with Diff rn 03/07 19:21 Order name: CPK rn 03/07 19:21 Order name: Hepatic Function; Complete Time: 20:46 rn 03/07 19:21 Order name: NT PRO-BNP; Complete Time: 20:46 rn 03/07 19:21 Order name: PT-INR rn 03/07 19:21 Order name: Ptt, Activated rn 03/07 19:21 Order name: Troponin (emerg Dept Use Only); Complete Time: 20:46 rn 03/07 19:21 Order name: XRAY CXR (1 view); Complete Time: 20:12 rn 03/07 19:21 Order name: Basic Metabolic Panel; Complete Time: 20:46 EDMS 03/07 19:21 Order name: CBC with Automated Diff; Complete Time: 20:46 EDSC 03/07 19:21 Order name: Creatine Phosphokinase; Complete Time: 20:46 EDSC 03/07 20:34 Order name: Urine Dipstick-Ancillary; Complete Time: 20:46 EDSC 03/07 19:21 Order name: EKG; Complete Time: 19: rn 03/07 19:21 Order name: Cardiac monitoring; Complete Time: :29 rn 03/07 19:21 Order name: EKG - Nurse/Tech; Complete Time: 20: rn 03/07 19:21 Order name: IV Saline Lock; Complete Time: 20: rn 03/07 19:21 Order name: Labs collected and sent; Complete Time: 20: rn 03/07 19:21 Order name: O2 Per Protocol; Complete Time: : rn 03/07 19:21 Order name: O2 Sat Monitoring; Complete Time: : rn EC:59 Rate is 66 beats/min. Rhythm is regular. QRS [place] is Normal. [place] interval is normal. QRS rn interval is normal. QT interval is normal. No Q waves. T waves are Normal. No ST changes noted. Clinical impression: Normal ECG. Interpreted by me. Reviewed by me. Administered Medications: 21:03 Drug: Demerol (meperidine) 50 mg Route: IVP; Infused Over: 3 mins; Site: left dc2 antecubital; 21:30 Follow up: Response: Pain is decreased dc2 21:10 Drug: Lasix (furosemide) 40 mg Route: IVP; Site: left antecubital; dc2 21:35 Follow up: Response: No adverse reaction dc2 Disposition Summary: 03/07/21 21:20 Discharge Ordered Location: Home rn Problem: an ongoing problem rn Symptoms: have improved rn Condition: Stable rn Diagnosis - Generalized edema rn Followup: rn - With: Vanesa Arguello MD - When: 1 week - Reason: Recheck today's complaints, Re-evaluation by your physician Discharge Instructions: - Discharge Summary Sheet rn - Edema rn Forms: - Medication Reconciliation Form rn - Thank You Letter rn - Antibiotic maternal fetal physician - Prescription Opioid Use rn Prescriptions: - Lasix 40 mg Oral Tablet - take 1 tablet by ORAL route once daily for 10 days; 10 tablet; Refills: 0, rn Product Selection Permitted Signatures: Dispatcher [facility] Ihsan Song MD MD rn Lewis, Lynsay, RN RN ll1 [place], HARDIK Garber RN dc2 Corrections: (The following items were deleted from the chart) 21:16 18:40 PMHx: Asthma; 1 dc2 21:16 18:40 PMHx: COPD; 1 dc2 21:16 18:40 PMHx: Bronchitis; 1 dc2 21:16 18:40 PMHx: Bipolar disorder; 1 dc2 21:16 18:40 PMHx: Depression; 1 dc2 21:16 18:40 PMHx: kidney cancer; 1 dc2
[2021-03-07 21:53] VITALS: TEMP 98.6
[2021-03-07 22:17] VITALS: O2SAT 98
[2021-03-07 22:21] VITALS: BP 121/67
--- OUTSIDE RECORDS SUMMARY | 2021-03-15 13:30 | XMS REPORT | Continuity of Care Document ---
:1970 Author Organization [facility] t Address [address] [place] [address] Care Team Providers Name Role Phone Adryan Clemens Attending Clinician Unavailable Clause, C Attending Clinician Unavailable Brodie Attending Clinician Unavailable Cheyanne Whittaker Attending Clinician Unavailable Clause DPAdryan C Attending Clinician Matias TREJO Attending Clinician CLAUSE, C Attending Clinician Unavailable Doctor Unassigned, Name Attending Clinician Unavailable Lab, - Attending Clinician Unavailable Way, L Admitting Clinician Unavailable Physician, Primary or Family Admitting Clinician Unavailabl e Brodie Admitting Clinician Unavailable Cheyanne Whittaker Admitting Clinician Unavailable Matias TREJO Admitting Clinician Payers Payer Name Policy Type Policy Number Effective Date Expiration Date S idalia [facility] P [id number] STAR [facility] P [id number] STAR Problems Condition Condition Condition Status Onset Resolution Last Treating Co mments Source Name Details Category Date Date Treatment Clinician Date Surgical Surgical Disease Active Unive rs menopause menopause 2-16 ity of 00:00: [place] 00 Medical Branch History of History of Disease Active Overview : Univers hysterecto hysterecto 2-16 With it y of my my 00:00: bilateral [place] including including 00 oopherect M edical cervix cervix loli Branch Depression Depression Disease Active U nivers 2-16 ity of 00:00: [place] 00 Medical Branch History of History of Disease Active U nivers kidney kidney -16 ity of cancer cancer 00:00: [place] [id number] Medical Branch Urinary Urinary Disease Active Univers incontinen incontinen 06-18 it y of ce ce 00:00: [place] [facility] Tobacco Tobacco Disease Active Univers use use 06-18 ity of disorder disorder 00:00: [place] 00 Medical Branch Encounter Encounter Disease Active Overview: Univers for for 06-18 ICD10 ity of routine routine 00:00: Diagnosis [place] gynecologi gynecologi 00 Term Me dical brooke 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 examinatio Utility n n Morbid Morbid Disease Active Univers obesity obesity 06-18 ity of 00:00: [place] 00 Medical Branch Allergies, Adverse Reactions, Alerts Allergy Allergy Status Severity Reaction(s) Onset Inactive Treating Comm ents Source Name Type Date Date Clinician aspirin DA Active SV ANAPHYLAXIS 2020- [facility] 4-18 [place] 00:00: On License Of [facility] 00 [facility] aspirin DA Active SV 2020-0 [facility] 4-18 [place] 00:00: On License Of [facility] Iodinate DA Active U UNKNOWN [facility] d 4-05 [place] Contrast 00:00: [facility] 00 formerly [facility] NSAIDS DA Active U UNKNOWN [facility] (Non-Remigio 4-05 [place] roidal 00:00: On License Of [facility] Anti-Inf 00 [place] [facility] guaifene DA Active U UNKNOWN 2020- [facility] sin 4-05 [place] 00:00: [address] iodine DA Active U UNKNOWN 2020-0 [facility] 4-05 [place] 00:00: [address] morphine DA Active U UNKNOWN 2020- [facility] 4-05 [place] 00:00: On License Of [facility] 00 [facility] aspirin DA Active U UNKNOWN 2020-0 [facility] 4-05 [place] 00:00: On License Of [facility] 00 [facility] hydromor DA Active U UNKNOWN [facility] phone 4-05 [place] 00:00: [address] ondanset DA Active U UNKNOWN 2020-0 [facility] kristi 4-05 [place] 00:00: On License Of [facility] 00 [facility] penicill DA Active U UNKNOWN 2020-0 [facility] in G 4-05 [place] 00:00: [address] Iodinate DA Active U 2020-0 [facility] d 4-05 [place] Contrast 00:00: [facility] 00 [facility] NSAIDS DA Active U 2020-0 [facility] (Non-Remigio 4-05 [place] roidal 00:00: On License Of [facility] Anti-Inf 00 [place] [facility] guaifene DA Active U 2020-0 [facility] sin 4-05 [place] 00:00: [address] iodine DA Active U 2020-0 [facility] 4-05 [place] 00:00: [address] morphine DA Active U 2020-0 [facility] -05 [place] 00:00: [address] aspirin DA Active U 2020-0 [facility] -05 [place] 00:00: [address] hydromor DA Active U 2020-0 [facility] phone 4-05 [place] 00:00: [address] ondanset DA Active U 2020-0 [facility] kristi 4-05 [place] 00:00: [address] penicill DA Active U 2020-0 [facility] in G -05 [place] 00:00: [address] No Known DA Active U 2020-0 [facility] Allergie 4-04 [place] s 00:00: [address] No Known DA Active U 2020-0 [facility] Allergie 4-04 [place] s 00:00: [address] NSAIDS Drug Active Anaphylaxis 2020-0 Unive rs (NON-REMIGIO Class 1-14 ity of ROIDAL 00:00: [place] ANTI-INF 00 Medical LAMMATOR Branch Y DRUG) ONDANSET DRUG Active Anaphylaxis 2020-0 Uni vers KRISTI HCL 1-14 ity of (PF) 00:00: [place] 00 Medical Branch Nsaids Propensi Active Anaphylaxis 2020-0 Uni vers (Non-Remigio ty to 1-14 ity of roidal adverse 00:00: [place] Anti-Inf reaction 00 Medica l lammator s Branch y Drug) Ondanset Propensi Active Anaphylaxis 2021-0 U nivers kristi Hcl ty to 1-14 ity of (Pf) adverse 00:00: [place] reaction 00 Medical s Branch fentanyl DA Active HI [facility] 09-26 [place] 00:00: d 00 [facility] fentanyl DA Active HI RASH [facility] 09-26 [place] 00:00: d 00 [facility] Iodinate DA Active SV 2018-05 [facility] d 05-03 [place] Contrast 00:00: [employer] 00 [facility] NSAIDS DA Active SV 2018-05 [facility] (Non-Remigio 05-03 [place] roidal 00:00: [place] Anti-Inf 00 [facility] Penicill DA Active SV 2018-05 [facility] ins 05-03 [place] 00:00: [place] 00 [facility] morphine DA Active SV 2018-05 [facility] 05-03 [place] 00:00: [place] 00 [facility] aspirin DA Active U 2018-05 [facility] 05-03 [place] 00:00: [place] 00 [facility] hydromor DA Active SV 2018-05 [facility] phone 05-03 [place] 00:00: [place] 00 [facility] shellfis FA Active SV 2018-05 [facility] h 05-03 [place] derived 00:00: [place] 00 [facility] Iodinate DA Active SV ANAPHYLACTIC 2018-05 HC A d 05-03 [place] Contrast 00:00: [employer] 00 [facility] NSAIDS DA Active SV RASH,TONGUE 2018-05 [facility] (Non-Remigio SWELLING 05-03 [place] roidal 00:00: [place] Anti-Inf 00 [facility] Penicill DA Active SV ANPHYLLACTIC 2018-05 HC A ins 05-03 Clear 00:00: [place] 00 [facility] morphine DA Active SV ANAPHYLLACTI 2018-05 HC A C 05-03 Clear 00:00: [place] 00 [facility] aspirin DA Active U ANAPHYLLACTI 2018-05 [facility] C 05-03 Clear 00:00: [place] 00 [facility] hydromor DA Active SV RASH,ITCHING 2018-05 HC A phone 05-03 Clear 00:00: [place] 00 [facility] shellfis FA Active SV ANAPHYLACTIC 2018-05 HC A h 05-03 [place] derived 00:00: [place] 00 [facility] IODINE DRUG Active Anaphylaxis Unive rs INGREDI 9-18 ity of 00:00: [place] 00 Medical Branch GUAIFENE DRUG Active Anaphylaxis 2017-0 Uni vers SIN INGREDI 9-18 ity of 00:00: [place] 00 Medical Branch Iodine Propensi Active Anaphylaxis 2016- The one Un [facility] ty to 918 they use ity of adverse 00:00: for CT [place] reaction 00 scan Medical s Branch Guaifene Propensi Active Anaphylaxis 2016-0 U nivers sin ty to 9-18 ity of adverse 00:00: [place] reaction 00 Medical s Branch ASPIRIN DRUG Active Hives 2014-0 Univers INGREDI 2-16 ity of 00:00: [place] 00 Medical Branch HYDROMOR DRUG Active Hives 2014-0 Univers PHONE 2-16 ity of (BULK) 00:00: [place] 00 Medical Branch MORPHINE DRUG Active Unknown-Cmnt 0 Un ellen INGREDI 2-16 ity of 00:00: [place] 00 Medical Branch PENICILL Drug Active Anaphylaxis 2014- Uni vers INS Class 2-16 ity of 00:00: [place] 00 Medical Branch Aspirin Propensi Active Hives 2014-0 Univers ty to 2-16 ity of adverse 00:00: [place] reaction 00 Medical s Branch Hydromor Propensi Active Hives 2014-0 Univer s phone ty to 2-16 ity of (Bulk) adverse 00:00: [place] reaction 00 Medical s Branch Morphine Propensi Active Unknown - 0 Uni vers ty to See comments 2-16 ity of adverse 00:00: [place] reaction 00 Medical s Branch Penicill Propensi Active Anaphylaxis 2014-0 U nivers ins ty to 2-16 ity of adverse 00:00: [place] reaction 00 Medical s [place] No Known DA Active U 2008-0 [facility] Contrast 8- [place] Allergie 00:00: d s 00 [facility] No Known DA Active U 2008-0 [facility] Food 8- [place] Allergie 00:00: d s 00 [facility] No Known DA Active U 2008-0 [facility] Other 8- [place] Allergie 00:00: d s 00 [facility] PENICILL DA Active U 2008-0 [facility] IN 8-11 [place] 00:00: d 00 [facility] [place] penicill DA Active U 2004-0 [facility] in G 5-06 [place] 00:00: d 00 [facility] Social History Social Habit Start Date Stop Date Quantity Comments Source Exposure to Not sure University of SARS-CoV-2 (event) [facility] Cigarettes smoked 2020-05-162020-05-16 Univers ity of current (pack per 00:00:00 00:00:00 ) - Reported Branch Tobacco use and 2020-05-16 2020-05-16 Never used Universit y of exposure 00:00:00 00:00:00 [facility] Alcohol intake 2020-05-16 2020-05-16 Current University of 00:00:00 00:00:00 non-drinker of [facility] alcohol Branch (finding) Sex [birth year] Universit y of 00:00:00 00:00:00 [facility] Smoking Status Start Date Stop Date Source Current every day smoker 2020-05-16 00:00:00 Uni versity of [facility] Medications Ordered Filled Start Stop Current Ordering Indication Dosage Frequency Signature Comments Components Source Medication Medication Date Date Medication? Clinician (SIG) Name Name GABAPENTIN Yes 600mg Take 600 Un ellen ORAL 1-20 mg by ity of 21:31: mouth 2 [place] 29 (two) Medical times Branch daily. HYDROcodone Yes 1{tbl} Take 1 Tab Univers -acetaminop 1-20 by mouth ity of hen (NORCO) 21:31: every 6 [place] as 10-325 mg 29 (six) Medical tablet hours as Branch needed. zolpidem Yes 10mg Take 10 mg Uni vers (AMBIEN) 10 1-20 by mouth 2 it y of mg tablet 21:31: (two) [place] 29 times Medical daily. Branch diazepam Yes 10mg Take 10 mg Uni vers (VALIUM) 10 1-20 by mouth ity of mg tablet 21:31: every 6 [place] 29 (six) Medical hours. Branch traZODONE Yes 100mg Take 100 Uni vers (DESYREL) 1-20 mg by ity of 100 mg 21:31: mouth 3 [place] tablet 29 (three) Medical times Branch daily. risperiDONE Yes 2mg Take 2 mg U nivers (RISPERDAL) 1-20 by mouth 2 it y of 2 mg tablet 21:31: (two) [place] 29 times Medical daily. Branch carBAMazepi Yes 300mg Take 300 U nivers ne, mood 1-20 mg by ity of stabiliz, 21:31: mouth 2 [place] (EQUETRO) 29 (two) Medical 300 mg CM12 times Branch daily. GABAPENTIN 0 Yes 600mg Take 600 Un [place] ORAL 1-20 mg by ity of 21:31: mouth 2 [place] 29 (two) Medical times Branch daily. acetaminoph 0 Yes 1{tbl} Take 1 Un ellen en-codeine 1-20 tablet by ity of (TYLENOL-CO 21:31: mouth [place] DEINE #4) 29 every 4 Medical 300-60 mg (four) Branch tablet hours as needed for Pain. pregabalin 0 Yes 200mg Take 200 Un ellen (LYRICA) 1-20 mg by ity of 200 mg 21:31: mouth 2 [place] capsule 29 (two) Medical times Branch daily. losartan 25 0 Yes 25mg Take 25 mg Univers mg tablet 1-20 by mouth ity of 21:31: daily. [place] 29 Medical Branch busPIRone Yes 10mg Take 10 mg Un ellen 10 mg 1-20 by mouth 3 ity of tablet 21:31: (three) [place] 29 times Medical daily. Branch montelukast Yes 10mg Take 10 mg Univers (SINGULAIR) 1-20 by mouth. ity of 10 mg 21:31: [place] tablet 29 Medical Branch melatonin 3 Yes 3mg Take 3 mg U nivers mg tablet 1-20 by mouth ity of 21:31: at [place] 29 bedtime. Medical Branch HYDROcodone 0 Yes 1{tbl} Take 1 Tab Univers -acetaminop 1-20 by mouth ity of hen (NORCO) 21:31: every 6 [place] as 10-325 mg 29 (six) Medical tablet hours as Branch needed. zolpidem Yes 10mg Take 10 mg Uni vers (AMBIEN) 10 1-20 by mouth 2 it y of mg tablet 21:31: (two) [place] 29 times Medical daily. Branch diazepam 0 Yes 10mg Take 10 mg Uni vers (VALIUM) 10 1-20 by mouth ity of mg tablet 21:31: every 6 [place] 29 (six) Medical hours. Branch traZODONE 0 Yes 100mg Take 100 Uni vers (DESYREL) 1-20 mg by ity of 100 mg 21:31: mouth 3 [place] tablet 29 (three) Medical times Branch daily. risperiDONE 2020-0 Yes 2mg Take 2 mg U nivers (RISPERDAL) 1-20 by mouth 2 it y of 2 mg tablet 21:31: (two) [place] 29 times Medical daily. Branch carBAMazepi 0 Yes 300mg Take 300 U nivers ne, mood 1-20 mg by ity of stabiliz, 21:31: mouth 2 [place] (EQUETRO) 29 (two) Medical 300 mg CM12 times Branch daily. GABAPENTIN 2020-0 Yes 600mg Take 600 Un [place] ORAL 1-20 mg by ity of 21:31: mouth 2 [place] 29 (two) Medical times Branch daily. HYDROcodone 2020-0 Yes 1{tbl} Take 1 Tab Univers -acetaminop 1-20 by mouth ity of hen (NORCO) 21:31: every 6 [place] as 10-325 mg 29 (six) Medical tablet hours as Branch needed. zolpidem 0 Yes 10mg Take 10 mg Uni vers (AMBIEN) 10 1-20 by mouth 2 it y of mg tablet 21:31: (two) [place] 29 times Medical daily. Branch diazepam 0 Yes 10mg Take 10 mg Uni vers (VALIUM) 10 1-20 by mouth ity of mg tablet 21:31: every 6 [place] 29 (six) Medical hours. Branch traZODONE 0 Yes 100mg Take 100 Uni vers (DESYREL) 1-20 mg by ity of 100 mg 21:31: mouth 3 [place] tablet 29 (three) Medical times Branch daily. risperiDONE 2020-0 Yes 2mg Take 2 mg U nivers (RISPERDAL) 1-20 by mouth 2 it y of 2 mg tablet 21:31: (two) [place] 29 times Medical daily. Branch carBAMazepi 0 Yes 300mg Take 300 U nivers ne, mood 1-20 mg by ity of stabiliz, 21:31: mouth 2 [place] (EQUETRO) 29 (two) Medical 300 mg CM12 times Branch daily. HYDROcodone 2020-0 2021- No 1{tbl} 1 tablet, Univers -acetaminop 1-20 01-20 Oral, ONCE i ty of hen (NORCO) 20:15: 19:23 NOW, 1 [place] as 10-325 mg 00 :00 dose, Wed Medic al tablet 1 05/22/20 at Bran h tablet 1415, Routine HYDROcodone 2020- No 1{tbl} 1 tablet, Univers -acetaminop 05-22 Oral, ONCE i ty of hen (NORCO) 20:15: 19:23 NOW, 1 [place] as 10-325 mg 00 :00 dose, Wed Medic al tablet 1 05/22/20 at Bran h tablet 1415, Routine lactated Yes 1000mL at 75 Univer s ringers IV 1-20 mL/hr, ity of infusion 19:00: 1,000 mL, [place] 1,000 [place] 00 IV Medical Infusion, Branch CONTINUOUS , Starting Wed05/22/20 at 1300, Until Discontinu ed, Routine, PACU lactated 2020- No 1000mL at 75 Unive rs ringers IV 1-20 mL/hr, ity of infusion 19:00: 23:31 1,000 mL, [place] as 1,000 mL 00 :29 IV Medical Infusion, Branch CONTINUOUS , Starting Wed05/22/20 at 1300, Until Wed05/22/20 at 1731, Routine, PACU meperidine 2020- No 25mg 25 mg, [facility] ers (PF) 05-22 Slow IV ity of injection 18:45: 18:44 Push, [place] 25 mg 00 :00 Q3HPRN, Medical Starting Branch Wed05/22/20 at 1245, Until [place] 05/23/20 at 1244, Routine, Pain (scale 4-6)
En ter indication for use: Anaphylact ic allergies to all other opioid formulatio ns
Facu lty member approving Restricted medication : ZAIRE KENNEDY meperidine 2020- No 25mg 25 mg, [facility] ers (PF) 05-22 Slow IV ity of injection 18:45: 23:31 Push, [place] 25 mg 00 :29 Q3HPRN, Medical Starting Branch Wed05/22/20 at 1245, Until Wed05/22/20 at 1731, Routine, Pain (scale 4-6)
En ter indication for use: Anaphylact ic allergies to all other opioid formulatio ns
Facu lty member approving Restricted medication : ZAIRE KENNEDY bupivacaine 0 Yes PRN, Univer s (preserv 1-20 Starting ity of free) 0.5% 16:36: Wed (SENSORCAIN 00 05/22/20 at [place] dical E [facility]) 0.5 1036, Branch % (5 mg/mL) Until injection Discontinu ed, Routine, Intra-op bupivacaine 2020- No PRN, Unive rs (preserv 1-20 01-20 Starting ity of free) 0.5% 16:36: 23:31 Wed [place] (SENSORCAIN 00 :29 05/22/20 at [place] dicwi E [facility]) 0.5 1036, Branch % (5 mg/mL) Until Wed injection 05/22/20 at 1731, Routine, Intra-op HYDROcodone 0 Yes 1{tbl} Take 1 Tab Univers -acetaminop 1-20 by mouth ity of hen (NORCO) 13:35: every 6 [place] as 10-325 mg 18 (six) Medical tablet hours as Branch needed. zolpidem Yes 10mg Take 10 mg Uni vers (AMBIEN) 10 1-20 by mouth 2 it y of mg tablet 13:35: (two) [place] 18 times Medical daily. Branch diazepam Yes 10mg Take 10 mg Uni vers (VALIUM) 10 1-20 by mouth ity of mg tablet 13:35: every 6 [place] 18 (six) Medical hours. Branch traZODONE Yes 100mg Take 100 Uni vers (DESYREL) 1-20 mg by ity of 100 mg 13:35: mouth 3 [place] tablet 18 (three) Medical times Branch daily. risperiDONE Yes 2mg Take 2 mg U nivers (RISPERDAL) 1-20 by mouth 2 it y of 2 mg tablet 13:35: (two) [place] 18 times Medical daily. Branch carBAMazepi 0 Yes 300mg Take 300 U nivers ne, mood 1-20 mg by ity of stabiliz, 13:35: mouth 2 [place] (EQUETRO) 18 (two) Medical 300 mg CM12 times Branch daily. GABAPENTIN 0 Yes 600mg Take 600 Un [facility] ORAL 1-20 mg by ity of 13:35: mouth 2 [place] 18 (two) Medical times Branch daily. acetaminoph Yes 1{tbl} Take 1 [facility] [place] en-codeine 1-20 tablet by ity of (TYLENOL-CO 13:35: mouth [place] DEINE #4) 18 every 4 Medical 300-60 mg (four) Branch tablet hours as needed for Pain. pregabalin Yes 200mg Take 200 Un [place] (LYRICA) 1-20 mg by ity of 200 mg 13:35: mouth 2 [place] capsule 18 (two) Medical times Branch daily. losartan 25 Yes 25mg Take 25 mg Univers mg tablet 1-20 by mouth ity of 13:35: daily. [place] 18 Medical Branch busPIRone Yes 10mg Take 10 mg Un [place] 10 mg 1-20 by mouth 3 ity of tablet 13:35: (three) [place] 18 times Medical daily. Branch montelukast Yes 10mg Take 10 mg Univers (SINGULAIR) 1-20 by mouth. ity of 10 mg 13:35: [place] tablet 18 Medical Branch melatonin 3 Yes 3mg Take 3 mg U nivers mg tablet 1-20 by mouth ity of 13:35: at [place] 18 bedtime. Medical Branch HYDROcodone Yes 1{tbl} Take 1 Tab Univers -acetaminop 1-20 by mouth ity of hen (NORCO) 13:35: every 6 [place] as 10-325 mg 18 (six) Medical tablet hours as Branch needed. zolpidem Yes 10mg Take 10 mg Uni vers (AMBIEN) 10 1-20 by mouth 2 it y of mg tablet 13:35: (two) [place] 18 times Medical daily. Branch diazepam Yes 10mg Take 10 mg Uni vers (VALIUM) 10 1-20 by mouth ity of mg tablet 13:35: every 6 [place] 18 (six) Medical hours. Branch traZODONE Yes 100mg Take 100 Uni vers (DESYREL) 1-20 mg by ity of 100 mg 13:35: mouth 3 [place] tablet 18 (three) Medical times Branch daily. risperiDONE Yes 2mg Take 2 mg U nivers (RISPERDAL) 1-20 by mouth 2 it y of 2 mg tablet 13:35: (two) [place] 18 times Medical daily. Branch carBAMazepi 0 Yes 300mg Take 300 U nivers ne, mood 1-20 mg by ity of stabiliz, 13:35: mouth 2 [place] (EQUETRO) 18 (two) Medical 300 mg CM12 times Branch daily. GABAPENTIN 0 Yes 600mg Take 600 [place] ORAL 1-20 mg by ity of 13:35: mouth 2 [place] 18 (two) Medical times Branch daily. acetaminoph 0 Yes 1{tbl} Take 1 [place] en-codeine 1-20 tablet by ity of (TYLENOL-CO 13:35: mouth [place] DEINE #4) 18 every 4 Medical 300-60 mg (four) Branch tablet hours as needed for Pain. pregabalin 0 Yes 200mg Take 200 Un [place] (LYRICA) 1-20 mg by ity of 200 mg 13:35: mouth 2 [place] capsule 18 (two) Medical times Branch daily. losartan 25 0 Yes 25mg Take 25 mg Univers mg tablet 1-20 by mouth ity of 13:35: daily. [place] [address] Medical Branch busPIRone 0 Yes 10mg Take 10 mg [place] 10 mg 1-20 by mouth 3 ity of tablet 13:35: (three) [place] [address] times Medical daily. Branch montelukast 0 Yes 10mg Take 10 mg Univers (SINGULAIR) 1-20 by mouth. ity of 10 mg 13:35: [place] [facility] 18 Medical Branch melatonin 3 0 Yes 3mg Take 3 mg U nivers mg tablet 1-20 by mouth ity of 13:35: at [place] 18 bedtime. Medical Branch zolpidem 0 Yes 10mg Take 10 mg Uni vers (AMBIEN) 10 1-14 by mouth 2 it y of mg tablet 17:31: (two) [place] 15 times Medical daily. Branch traZODONE 0 Yes 100mg Take 100 Uni vers (DESYREL) 1-14 mg by ity of 100 mg 17:31: mouth 3 [place] tablet 15 (three) Medical times Branch daily. risperiDONE 0 Yes 2mg Take 2 mg U nivers (RISPERDAL) 1-14 by mouth 2 it y of 2 mg tablet 17:31: (two) [place] 15 times Medical daily. Branch losartan 25 Yes 25mg Take 25 mg Univers mg tablet 1-14 by mouth ity of 17:31: daily. [place] 15 Medical Branch busPIRone Yes 10mg Take 10 mg [place] 10 mg 1-14 by mouth 3 ity of tablet 17:31: (three) [place] 15 times Medical daily. Branch montelukast Yes 10mg Take 10 mg Univers (SINGULAIR) 1-14 by mouth. ity of 10 mg 17:31: [place] tablet 15 Medical Branch melatonin 3 Yes 3mg Take 3 mg U nivers mg tablet 1-14 by mouth ity of 17:31: at [place] 15 bedtime. Medical Branch zolpidem Yes 10mg Take 10 mg Uni vers (AMBIEN) 10 1-14 by mouth 2 it y of mg tablet 17:31: (two) [place] 15 times Medical daily. Branch traZODONE Yes 100mg Take 100 Uni vers (DESYREL) 1-14 mg by ity of 100 mg 17:31: mouth 3 [place] tablet 15 (three) Medical times Branch daily. risperiDONE Yes 2mg Take 2 mg U nivers (RISPERDAL) 1-14 by mouth 2 it y of 2 mg tablet 17:31: (two) [place] 15 times Medical daily. Branch losartan 25 Yes 25mg Take 25 mg Univers mg tablet 1-14 by mouth ity of 17:31: daily. [place] 15 Medical Branch busPIRone Yes 10mg Take 10 mg [facility] [place] 10 mg 1-14 by mouth 3 ity of tablet 17:31: (three) [place] 15 times Medical daily. Branch montelukast Yes 10mg Take 10 mg Univers (SINGULAIR) 1-14 by mouth. ity of 10 mg 17:31: [place] tablet 15 Medical Branch melatonin 3 Yes 3mg Take 3 mg U nivers mg tablet 1-14 by mouth ity of 17:31: at [place] 15 bedtime. Medical Branch HYDROcodone Yes 1{tbl} Take 1 Tab Univers -acetaminop 1-14 by mouth ity of hen (NORCO) 17:29: every 6 [place] as 10-325 mg 09 (six) Medical tablet hours as Branch needed. diazepam 1-0 Yes 10mg Take 10 mg Uni vers (VALIUM) 10 1-14 by mouth ity of mg tablet 17:29: every 6 [place] 09 (six) Medical hours. Branch carBAMazepi 2020-0 Yes 300mg Take 300 U nivers ne, mood 1-14 mg by ity of stabiliz, 17:29: mouth 2 [place] (EQUETRO) 09 (two) Medical 300 mg CM12 times Branch daily. GABAPENTIN 2021-0 Yes 600mg Take 600 Un [place] ORAL 1-14 mg by ity of 17:29: mouth 2 [place] 09 (two) Medical times Branch daily. acetaminoph 202-0 Yes 1{tbl} Take 1 [place] en-codeine 1-14 tablet by ity of (TYLENOL-CO 17:29: mouth [place] DEINE #4) 09 every 4 Medical 300-60 mg (four) Branch tablet hours as needed for Pain. pregabalin 2020-0 Yes 200mg Take 200 Un [place]en (LYRICA) 1-14 mg by ity of 200 mg 17:29: mouth 2 [place] capsule 09 (two) Medical times Branch daily. HYDROcodone 2020-0 Yes 1{tbl} Take 1 Tab Univers -acetaminop 1-14 by mouth ity of hen (NORCO) 17:29: every 6 [place] as 10-325 mg 09 (six) Medical tablet hours as Branch needed. diazepam 1-0 Yes 10mg Take 10 mg Uni vers (VALIUM) 10 1-14 by mouth ity of mg tablet 17:29: every 6 [place] 09 (six) Medical hours. Branch carBAMazepi 2021-0 Yes 300mg Take 300 U nivers ne, mood 1-14 mg by ity of stabiliz, 17:29: mouth 2 [place] (EQUETRO) 09 (two) Medical 300 mg CM12 times Branch daily. GABAPENTIN 2021-0 Yes 600mg Take 600 [place] ORAL 1-14 mg by ity of 17:29: mouth 2 [place] 09 (two) Medical times Branch daily. acetaminoph 2021-0 Yes 1{tbl} Take 1 [place] en-codeine 1-14 tablet by ity of (TYLENOL-CO 17:29: mouth [place] DEINE #4) 09 every 4 Medical 300-60 mg (four) Branch tablet hours as needed for Pain. pregabalin Yes 200mg Take 200 Un ellen (LYRICA) 1-14 mg by ity of 200 mg 17:29: mouth 2 [place] capsule 09 (two) Medical times Branch daily. Immunizations Ordered Filled Immunization Date Status Comments Sour e Immunization Name Name TDAP (ADACEL) 2011-12-02 Completed University of VACCINE 00:00:00 [facility] TDAP (ADACEL) 2011-12-02 Completed [place] of VACCINE 00:00:00 [facility] TDAP (ADACEL) 2011-12-02 Completed [place] of VACCINE 00:00:00 [facility] TDAP (ADACEL) 2011-12-02 Completed [place] [facility] VACCINE 00:00:00 [facility] TDAP (ADACEL) 2011-12-02 Completed [place] of VACCINE 00:00:00 [facility] TDAP (ADACEL) 2011-12-02 Completed [place] [facility] VACCINE 00:00:00 [facility] TDAP (ADACEL) 2011-12-02 Completed [place] of VACCINE 00:00:00 [facility] Vital Signs Vital Name Observation Time Observation Value Comments Source Heart rate 2020-05-22 20:00:00 59 /min [facility] Respiratory rate 2020-05-22 20:00:00 24 /min [facility] Systolic blood 2020-05-22 19:45:00 130 mm[Hg] Univer sity of pressure [facility] Diastolic blood 2020-05-22 19:45:00 85 mm[Hg] [facility] Oxygen saturation in 2020-05-22 19:45:00 90 /min [facility] Arterial blood by [facility] Pulse oximetry [place] Body temperature 2020-05-22 18:40:00 36.61 Ivy [facility] Body height 2020-05-22 14:20:00 167.6 cm [facility] Body weight 2020-05-22 14:20:00 162.5 kg [facility] BMI 2020-05-22 14:20:00 57.82 kg/m2 [facility] Heart rate 2020-05-22 20:00:00 59 /min [facility] Respiratory rate 2020-05-22 20:00:00 24 /min [facility] Systolic blood 2020-05-22 19:45:00 130 mm[Hg] [facility] Diastolic blood 2020-05-22 19:45:00 85 mm[Hg] Unive [facility] Oxygen saturation in 2020-05-22 19:45:00 90 /min [facility] Arterial blood by [facility] Pulse oximetry Branch Body temperature 2020-05-22 18:40:00 36.61 Ivy [facility] Body height 2020-05-22 14:20:00 167.6 cm [facility] Body weight 2020-05-22 14:20:00 162.5 kg [facility] BMI 2020-05-22 14:20:00 57.82 kg/m2 [facility] Systolic blood 2020-05-22 14:20:00 140 mm[Hg] [facility] Diastolic blood 2020-05-22 14:20:00 87 mm[Hg] Unive [facility] Heart rate 2020-05-22 14:20:00 77 /min [facility] Body temperature 2020-05-22 14:20:00 36.44 Ivy [facility] Respiratory rate 2020-05-22 14:20:00 20 /min [facility] Body height 2020-05-22 14:20:00 167.6 cm [facility] Body weight 2020-05-22 14:20:00 162.5 kg [facility] BMI 2020-05-22 14:20:00 57.82 kg/m2 [facility] Oxygen saturation in 2020-05-22 14:20:00 94 /min [facility] Arterial blood by [facility] Pulse oximetry Branch Systolic blood 2020-05-22 14:20:00 140 mm[Hg] [facility] Diastolic blood 2020-05-22 14:20:00 87 mm[Hg] Unive [facility]ity [facility] Heart rate 2020-05-22 14:20:00 77 /min [facility] Body temperature 2020-05-22 14:20:00 36.44 Ivy [facility] Respiratory rate 2020-05-22 14:20:00 20 /min [facility] Body height 2020-05-22 14:20:00 167.6 cm [facility] Body weight 2020-05-22 14:20:00 162.5 kg [facility] BMI 2020-05-22 14:20:00 57.82 kg/m2 [facility] Oxygen saturation in 2020-05-22 14:20:00 94 /min [facility] Arterial blood by [facility] Pulse oximetry Branch Procedures Procedure Date / Time Performing Clinician Source Performed [id number] 2020-08-15 00:00:00 [facility] [id number] 2020-08-15 00:00[facility] [id number] 2020-08-15 00:00:00 [facility] [id number] 2020-08-08 00:00[facility]00 [facility] [id number] 2020-08-08 00:00:00 [facility] [id number] 2020-08-08 00:00:00 [facility] [id number] 2020-08-04 00:00:00 [facility] [id number] 2020-08-04 00:00:00 [facility] FL TIME OR 2020-05-22 18:16:46 Tiarra Jurado [facility] (NON-REPORTABLE) [facility] [place] TIME OR 2020-05-22 18:16:46 Tiarra Jurado [facility] (NON-REPORTABLE) [facility] ANKLE ARTHRODESIS 2020-05-22 15:47:[address] [facility] DAY SURGERY - CLEAR 2020-05-22 06:01:00 Doctor Unassigned, No [facility] [place] [facility] Name Medical [facility] XR CHEST 1 VW 2020-05-21 20:01:00 Adrien, Tiarra Saeed [facility] EXTERNAL PROVIDER 2020-05-21 06:01:00 Doctor Unassigned, No [facility] [place] [facility] Name Medical Branch EXTERNAL PROVIDER 2020-05-17 06:01:00 Doctor Unassigned, No [facility] [place] [facility] Medical [facility] EXTERNAL PROVIDER 2020-05-17 06:01:00 Doctor Unassigned, No [facility] [place] [facility] Name Medical [facility] EXTERNAL PROVIDER 2020-05-14 06:01:00 Doctor Unassigned, No [facility] [place] [facility] EXTERNAL PROVIDER 2020-05-14 06:01:00 Doctor Unassigned, No [facility] [place] [facility] Name [facility] Encounters Start End Encounter Admission Attending Care Care Encounter Source Date/Time Date/Time Type Type Clinicians Facility Department ID 2021-02-16 Outpatient [facility] [id number] [place] 13:48:42 [id number] [facility] 2021-02-16 Outpatient [facility] [id number] [place] 10:33:19 11240 [facility] 2021-02-16 Outpatient [facility] [id number] [place] 10:15:54 [id number] [facility] 2021-02-16 Outpatient [facility] [id number] [place] 09:44:58 [id number] [facility] 2021-02-13 Outpatient [facility] [id number] Legacy 20:07:12 [id number] [facility] 2021-02-13 Outpatient [facility] [id number] Legacy 17:27:17 [id number] [facility] 2020-03-13 Inpatient Clemens, HCAPM ENDO [id number] [facility] 08:30:00 [place] [address] [facility] 2020-03-11 Inpatient EL Clemens, HCAPM ENDO [id number] 2 [facility] 13:00:00 [place] [address] [facility] 2019-09-29 Inpatient Clause, HCACL DAYS [id number] [facility] 11:00:00 Tiarra [address] [facility] 2019-09-27 Inpatient Clause, HCACL DAYS [id number] [facility] 09:30:00 Tiarra [address]0914 [facility] 2019-05-08 Inpatient EM Brodie, HCAPM MEDI.01 [id number] [facility] 16:47:00 Oladipo [address] [facility] 2019-05-07 Inpatient HCAPM MED [id number] [facility] 17:06:00 77793 [facility] 2020-08-04 2020-08-22 Inpatient EM Panfilo, HCACR INTM.01 [id number] [facility] 23:09:00 11:10:00 Ali [id number] [facility] 2020-05-22 2020-05-22 [facility] 1.2.840.114 [id number] 07:34:00 15:25:00 Encounter [facility] Health 350.1.13.10 [place] 4.2.7.2.686 [place] [id number] [place] [address] ([facility]) 2020-05-22 2020-05-22 Hospital Tiarra Jurado [facility] 1.2.840.11 4 [id number] Univers 07:34:00 15:25:00 Encounter [facility] 350.1.13.10 [place] [phone] [facility] 049 Branch ([facility]) 2020-05-22 2020-05-22 Surgery [facility] 1.2.840.114 [id number] 09:47:00 12:18:00 Health 350.1.13.10 Clear 4.2.7.2.686 [place] [id number] [facility] 020 ([facility]) 2020-05-22 2020-05-22 Surgery [facility] 1.2.840.114 [id number] Univers 09:47:00 12:18:00 [facility] Health 350.1.13.10 it [place] [phone] [facility] 020 Branch ([facility]) 2020-05-22 2020-05-22 [facility] [id number] Univers 09:47:00 09:47:00 TIARRA ity of [facility] 2020-05-22 2020-05-22 Orders Doctor MATTHEW 1.2.840.114 [id number] 00:00:00 00:00:00 Only Unassigned, MARCUS 350.1.13.10 [place] [facility] 4.2.7.2.686 [id number] 2020-05-22 2020-05-22 Prep For Clause, VIPUL 1.2.840.114 [id number] 00:00:00 00:00:00 Surgery Tiarra C MARCUS 350.1.13.10 [facility] 4.2.7.2.686 [id number] 2020-05-22 2020-05-22 Prep For Clause, VIPUL 1.2.840.114 [id number] 00:00:00 00:00:00 Surgery Tiarra C MARCUS 350.1.13.10 [facility] 4.2.7.2.686 [id number] 2020-05-22 2020-05-22 Orders Doctor VIPUL 1.2.840.114 [id number] Univers 00:00:00 00:00:00 Only Unassigned, MARCUS 350.1.13.10 ity of [place] [facility] 4.2.7.2.686 Kranthi as [id number] [facility] 009 [place] 2020-05-22 2020-05-22 Prep For Clause, VIPUL 1.2.840.114 [id number] Univers 00:00:00 00:00:00 Surgery Tiarra C MARCUS 350.1.13.10 it y of HOSPITAL 4.2.7.2.686 Kranthi as [id number] [facility] 015 Branch 2020-05-22 2020-05-22 Prep For Clause, VIPUL 1.2.840.114 [id number] Univers 00:00:00 00:00:00 Surgery Tiarra C MARCUS 350.1.13.10 it y of HOSPITAL 4.2.7.2.686 Kranthi as [id number] [facility] 015 Branch 2020-05-21 2020-05-21 Hospital Clause, [facility] 1.2.840.114 [id number] 13:50:34 23:59:00 Encounter Tiarra C Health 350.1.13.10 [place] 4.2.7.2.686 [place] [id number] [place] [address] ([facility]) 2020-05-21 2020-05-21 [facility] 1.2.840.114 [id number] Univers 13:50:34 23:59:00 Encounter Tiarra Saeed Health 350.1.13.10 [place] [id number] [facility] 807 Branch ([facility]) 2020-05-21 2020-05-21 [facility] [id number] Univers 14:15:00 14:15:00 [facility] 2020-05-21 2020-05-21 Research Project Coordinator Lab, [facility] 1.2.840.114 [id number] 13:50:10 14:05:10 Visit Health 350.1.13.10 [place] 4.2.7.2.686 [place] [id number] [place] [address] ([facility]) 2020-05-21 2020-05-21 Research Project Coordinator Lab, [facility] 1.2.840.114 [id number] Univers 13:50:10 14:05:10 Visit Tiarra Jurado Health 350.1.13.10 [place] [id number] [facility] 353 Branch ([facility]) 2020-05-21 2020-05-21 Outpatient R [facility] [id number] Univers 14:00:00 14:00:00 [id number] [facility] 2020-05-17 2020-05-17 Outpatient [facility] [id number] -[id number] Univers 13:05:00 13:05:00 [id number] [facility] 2020-05-16 2020-05-16 Outpatient R [facility] [id number] -[id number] Univers 11:00:00 11:00:00 [id number] ity [facility] 2019-05-07 2019-05-07 Outpatient SENIA Calloway [facility] [id number] [facility] 23:55:00 23:55:00 Oladip[place] [address] [facility] Results Test Description Test Time Test Comments [...] message] The code = HEMINDEX) Index/DL system [facility] generated this result tra nsmitted reference range : 1 NORMAL. The ref erence range was not u sed to interpret this result as normal/abnormal . INDEX ICTERIC (test code 1 NORMAL <2 MG See_Comment [Automated message] The = ICTINDEX) Index/DL system which nerated this result tra nsmitted reference range : 1 NORMAL. The ref erence range was not u sed to interpret this result as normal/abnormal . INDEX LIPEMIA (test code 1 NORMAL <50 MG See_Comment [Automated message] The = LIPINDEX) Index/DL system which nerated this result tra nsmitted reference range : 1 NORMAL. The ref erence range was not u sed to interpret this result as normal/abnormal . BASIC METABOLIC [id number] 04:25:00 Test Item Value Reference Range Interpretation [...] (test code = MG Index/DL The system FieldLens) generated this result transmit cipriano reference range [...] this result as normal/abnormal . CBC W/AUTO [id number] 04:05:00 Test Item Value Reference Range Interpretation [...] 0.00 K/mm3 0.0-0.05 N NRBC#) GLUCOSE BEDSIDE [id number] 18:16:00 Test Item Value Reference Range Interpretation Comments GLUCOSE BEDSIDE TESTING (test code 117 MG/DL 70-119 N = GLUBED) GLUCOSE BEDSIDE [id number] 11:15:00 Test Item Value Reference Range Interpretation Comments GLUCOSE BEDSIDE TESTING (test code 126 MG/DL 70-119 H = GLUBED) BASIC METABOLIC [id number] 09:30:00 Test Item Value Reference Range Interpretation [...] (test code = MG Index/DL The system FieldLens) generated this result transmit cipriano reference range [...] this result as normal/abnormal . CBC W/AUTO [id number] 09:18:00 Test Item Value Reference Range Interpretation [...] 0.00 K/mm3 0.0-0.05 N NRBC#) GLUCOSE BEDSIDE [id number] 16:12:00 Test Item Value Reference Range Interpretation Comments GLUCOSE BEDSIDE TESTING (test code 127 MG/DL 70-119 H = GLUBED) GLUCOSE BEDSIDE [id number] 10:33:00 Test Item Value Reference Range Interpretation Comments GLUCOSE BEDSIDE TESTING (test code 145 MG/DL 70-119 H = GLUBED) BASIC METABOLIC [id number] 08:44:00 Test Item Value Reference Range Interpretation [...] (test code = MG Index/DL The system FieldLens) generated this result transmit cipriano reference range [...] this result as normal/abnormal . BASIC METABOLIC [id number] 08:41:00 Test Item Value Reference Range Interpretation [...] (test code = MG Index/DL The system Task Messenger HEMINDEX) generated this result transmit cipriano reference [...] this result as normal/abnormal . CBC W/AUTO [id number] 07:50:00 Test Item Value Reference Range Interpretation [...] = 0.00 K/mm3 0.0-0.05 N NRBC#) - XR CHEST 1 [id number] 07:11:00 [facility] : 1970 Sex: F FAX: Anthony Domingo MD [phone] [place]: C St: [facility] FAX: Raven Lerma MD Patient Name: MARCELLE MEDINA Unit No: [id number] EXAMS: CPT CODE: [id number] XR CHEST 1 V 07327 - XR CHEST 1 V INDICATION:CHF LOCATION: [...] [place] Orig Print D/T: S: 08/20/2020 (0714) GALDINO Ribeiro NAME: MARCELLE MEDINA [facility] PHYS: LILLY Cat MD,[address] : 1970 AGE: 50 SEX:Cb [place], [place] [address] LOC: B.305 W PHONE #: [phone] EXAM DATE: 08/20/2020 STATUS: ADM IN FAX #: [phone] RAD NO: DC Dt: PAGE 1 Signed ReportBASIC METABOLIC [id number] 13:57:00 Test Item Value Reference Range Interpretation [...] message] (test code = Index/DL The system Task Messenger HEMINDEX) generated this result transmit cipriano reference [...] result as normal/abnormal . POC ARTERIAL BLOOD [id number] 09:58:00 Test Item Value Reference Range Interpretation Comments POC ARTERIAL BLOOD 7.428 pH units 7.35-7.45 N GAS PH (test code = POCPHA) POC ARTERIAL BLOOD 50.2 mmHg 35.0-48.0 H GAS PCO2 (test code = CFOTPH4E) POC TCO2 ARTERIAL 32.6 MMOL/L 22.0-29.0 H (test code = POCTCO2) ARTERIAL BLOOD GAS 98.3 mmHg 83.0-108.0 N PO2 (test code = JYDAZ5N) POC HCO3 ARTERIAL 33.2 MMOL/L 21.0-28.0 H (test code = GOLARJ9E) POC BASE EXCESS 7.6 MMOL/L See_Comment H [...] code = Descript POCSAMPLE) POC VENOUS BLOOD [id number] 09:58:00 Test Item Value Reference Range Interpretation Comments POC CALCIUM (test code = 1.15 MMOL/L 1.15-1.33 N POCCA) POC VENOUS BLOOD GAS PH (test 7.376 pH units 7.32-7.43 N code = POCPHV) POC VENOUS BLOOD GAS PCO2 57.6 mmHg 41.0-51.0 H (test code = CFPGAA3N) POC VENOUS BLOOD GAS PO2 41.8 mmHg 10.0-50.0 N (test code = FARDU3I) POC HCO3 VENOUS (test code = 33.8 MMOL/L 22.0-29.0 H GSBDRL1E) POC BASE EXCESS VENOUS (test 7.0 MMOL/L -2.0-3.0 H code = POCBEV) POC O2 SATURATION VENOUS 74 % 60-80 N (test code = FFUN9JQ) VENOUS BLOOD GAS FIO2 (test 100 % [...] Descript Specimen = POCSAMPLE) POC VENOUS BLOOD [id number] 09:41:00 Test Item Value Reference Range Interpretation Comments POC CALCIUM (test code = 1.23 MMOL/L 1.15-1.33 N POCCA) POC VENOUS BLOOD GAS PH (test 7.390 pH units 7.32-7.43 N code = POCPHV) POC VENOUS BLOOD GAS PCO2 58.9 mmHg 41.0-51.0 H (test code = ISGXGS0K) POC VENOUS BLOOD GAS PO2 40.9 mmHg 10.0-50.0 N (test code = GMWFH6R) POC HCO3 VENOUS (test code = 35.6 MMOL/L 22.0-29.0 H NNECLD6S) POC BASE EXCESS VENOUS (test 8.7 MMOL/L -2.0-3.0 H code = POCBEV) POC O2 SATURATION VENOUS 74 % 60-80 N (test code = JQKN5MB) PT. HGB (test code = PHGBVBG) 12.3 [...] Descript Specimen = POCSAMPLE) POC VENOUS BLOOD [id number] 09:41:00 Test Item Value Reference Range Interpretation Comments POC CALCIUM (test code = 1.24 MMOL/L 1.15-1.33 N POCCA) POC VENOUS BLOOD GAS PH (test 7.394 pH units 7.32-7.43 N code = POCPHV) POC VENOUS BLOOD GAS PCO2 58.4 mmHg 41.0-51.0 H (test code = WYYSQU8T) POC VENOUS BLOOD GAS PO2 40.5 mmHg 10.0-50.0 N (test code = ECMSU5T) POC HCO3 VENOUS (test code = 35.7 MMOL/L 22.0-29.0 H AIJXDV7L) POC BASE EXCESS VENOUS (test 8.9 MMOL/L -2.0-3.0 H code = POCBEV) POC O2 SATURATION VENOUS 74 % 60-80 N (test code = GTRP6SJ) PT. HGB (test code = PHGBVBG) 12.2 [...] Specimen = POCSAMPLE) - XR CHEST 1 [id number] 07:15:00 [facility]: MARCELLE MEDINA : 1970 Sex: F FAX: Ruthy Boateng MD [phone] [place]: C St: [facility] FAX: Anthony Galan MD [phone] Patient Name: MARCELLE MEDINA Unit No: [id number] EXAMS: CPT CODE: [id number] XR CHEST 1 V 93703 - XR CHEST 1 V INDICATION:CHF LOCATION: [...] [place] Orig Print D/T: S: 08/19/2020 (717) [facility] Quintin NAME: MARCELLE MEDINA MEDICAL IMAGING PHYS: Ruthy Paulino MD [address] [place] [address] BLVD : 1970 AGE: 50 SEX: F [place], [place] [address] LOC: B.ICU13 W PHONE #: [phone] EXAM DATE: 08/19/2020 STATUS: ADM IN FAX #: [phone] RADNO: DC Dt: PAGE 1 Signed ReportBASIC METABOLIC [id number] 06:54:00 Test Item Value Reference Range Interpretation Comments SODIUM (test code = 134.0 mmol/L 133-144 N NA) POTASSIUM (test 2.5 mmol/L 3.5-5.1 LL ON 08/19/20 AT 0653, code = K) B.LAB.PATIENT ATTENDANT AGUILAR D TO [place]. The report [...] message] (test code = Index/DL The system Task Messenger HEMILightUp) generated this result transmit cipriano reference range [...] to interpret this result as normal/abnormal . [id number] 06:54:00 Test Item Value Reference Range Interpretation Comments MAGNESIUM (test code = MAG) 2.0 MG/DL 1.6-2.6 N CBC W/AUTO [id number] 06:03:00 Test Item Value Reference Range Interpretation [...] = 0.02 K/mm3 0.0-0.05 N NRBC#) VANCOMYCIN [id number] 08:57:00 Test Item Value Reference Range Interpretation [...] every 48H while on Vancomycin. Comments to Ophthalmologist: BEFORE 9AM DOSE ON W/AUTO [id number] 07:08:00 Test Item Value Reference Range Interpretation [...] 0.02 K/mm3 0.0-0.05 N NRBC#) BASIC METABOLIC [id number] 07:06:00 Test Item Value Reference Range Interpretation [...] message] (test code = Index/DL The system FieldLens) generated this result transmit cipriano reference range [...] to interpret this result as normal/abnormal . [id number] 07:06:00 Test Item Value Reference Range Interpretation Comments MAGNESIUM (test code = MAG) 2.0 MG/DL 1.6-2.6 N - XR CHEST 1 [id number] 06:31:00 [facility] CON[facility]EN[facility]: MARCELLE MEDINA : 1970 Sex: F FAX: Anthony Domingo MD [phone] [place]: St: [facility] FAX: Manjinder Cat MD,[place] Patient Name: MARCELLE MEDINA Unit No: [id number] EXAMS: CPT CODE: [id number] XR CHEST 1 V 56529 Single View Chest. Location: ClinicalIndication: 50-year-old with [...] (06)Technologist: Toyin Jamil; Cindy Couch TranscribedDate/Time: 08/18/2020 (31) By: [email or web address] Orig Print D/T: S: 08/18/2020 (0634) GALDINO Ribeiro NAME: MARCELLE MEDINA MEDICAL IMAGING PHYS: LILLY Cat MD,[place] [address] [place] [address] BLVD : 1970 AGE: 50 SEX: F [place], [place] [address] LOC: Mich.ICU13 W PHONE #: [phone] EXAM DATE: 08/18/2020 STATUS: ADM IN FAX #: [phone] RAD NO: DC Dt: PAGE 1 Signed ReportGLUCOSE BEDSIDE [id number] 10:34:00 Test Item Value Reference Range Interpretation Comments GLUCOSE BEDSIDE TESTING (test code 121 MG/DL 70-119 H = GLUBED) ARTERIAL BLOOD [id number] 10:27:00 Test Item Value Reference Range Interpretation [...] MOD) PaO2/FiO2 (test 114.00 mm/Hg code = QJV8SHS3) ABG PEEP (test code 7 cm H20 [...] code = O2S/C) - XR CHEST 1 [id number] 07:42:00 [facility] CONROEName: MARCELLE MEDINA : 1970 Sex: F FAX: Ruthy Boateng MD [phone] [place]: C St: [facility] FAX: Anthony Galan MD [phone] Patient Name: MARCELLE MEDINA Unit No: [id number] EXAMS: CPT CODE: [id number] XR CHEST 1 V 89195 CHEST 1 VIEW: INDICATION: vent COMPARISON: Comparison [...] Ribeiro NAME: MARCELLE MEDINA MEDICAL IMAGING PHYS: Ruthy Paulino MD [address] [place] [address] BLVD : 1970 AGE: 50 SEX: F [place], [place] [address] LOC: B.ICU13 W PHONE #: [phone] EXAM DATE: 08/17/2020 STATUS: ADM IN FAX #: [phone] RAD NO: DC Dt: PAGE 1 Signed ReportBASIC METABOLIC [id number] 07:24:00 Test Item Value Reference Range Interpretation [...] to interpret this result as normal/abnormal . [id number] 07:24:00 Test Item Value Reference Range Interpretation Comments MAGNESIUM (test code = MAG) 2.3 MG/DL 1.6-2.6 N CBC W/AUTO [id number] 07:08:00 Test Item Value Reference Range Interpretation [...] 0.00 K/mm3 0.0-0.05 N NRBC#) GLUCOSE BEDSIDE [id number] 21:36:00 Test Item Value Reference Range Interpretation Comments GLUCOSE BEDSIDE TESTING (test code 123 MG/DL 70-119 H = GLUBED) COVID 19 Asymptomatic IH [id number] 18:30:00 Test Item Value Reference Range Interpretation Comments COVID 19 Asymptomatic IH AG (test Negative Neg code = COVNONPUIAG) GLUCOSE BEDSIDE [id number] 13:07:00 Test Item Value Reference Range Interpretation Comments GLUCOSE BEDSIDE TESTING (test code 182 MG/DL 70-119 H = GLUBED) - CT C-SPINE W/O [id number] 11:35:00 [facility] CONROEName: MARCELLE MEDINA : 1970 Sex: F Patient Name: MARCELLE MEDINA Unit No: [id number] EXAMS: CPT CODE: [id number] CT C-SPINE W/O CONT 43482 REASON FOR EXAM: COPD, intubation, CT cervical [...] or pneumothorax. NG tube in place. Location: [facility] at 1135 Reported and signed by: Jerrell Avalos M.D CC: Anthony Whittaker MD Dictated Date/Time: 08/16/2020 (9361) Technologist: Valarie Romano - Agency CTDI: 23.67 DLP: 510.29 Trnscrpt: 08/16/2020 (1135) [email or web address] [facility] NAME: MARCELLE MEDINA MEDICAL IMAGING PHYS: Anthony Cuevas MD [address] [place] [address] : 1970 AGE: 50 SEX: F [place], [place] [address] LOC: B.ICU13 W PHONE #: [phone] EXAM DATE: 08/16/2020 STATUS: ADM IN FAX #: [phone] RAD #: D/C DT PAGE 1 Signed Report Patient Name: MARCELLE MEDINA Unit No: [id number] EXAMS: CPT CODE: [id number] CT C-SPINE W/O CONT 37213 <Continued> Orig Print D/T: S: 08/16/2020 (1138) GALDINO Ribeiro NAME: MARCELLE MEDINA MEDICAL IMAGING PHYS: Anthony Cuevas MD [address] [place] [address] BLVD : 1970 AGE: 50 SEX: Cb [place], [place] [address] LOC: B.ICU13 W PHONE #: [phone] EXAM DATE: 08/16/2020 STATUS: ADM IN FAX #: [phone] RAD #: D/C DT PAGE 2 Signed ReportCBC W/MANUAL [id number] 07:17:00 Test Item Value Reference Range Interpretation [...] CRITERIA (test code = MDIFF) DIFF/SCN WBC [id number] 07:17:00 Test Item Value Reference Range Interpretation [...] code = PLTEST) - XR CHEST 1 [id number] 07:06:00 [facility] CONROEName: MARCELLE MEDINA : 1970 Sex: F FAX: Ruthy Boateng MD [phone] [place]: St: [facility] FAX: Anthony Galan MD [phone] Patient Name: MARCELLE MEDINA Unit No: [id number] EXAMS: CPT CODE: [id number] XR CHEST 1 V [id number] EXAM: - XR CHEST 1 V INDICATION: [...] 08/16/2020 (07)Technologist: Fanny Hoang Transcribed Date/Time: 08/16/2020 (705) By: [email or web address] Orig Print D/T: S: 08/16/2020 (0709) GALDINO Ribeiro NAME: MARCELLE [facility] PHYS: AHRuthy Veliz MD [address] [place] [address] BLVD : 1970 AGE: 50 SEX: F [place], [place] [address]HQVC NO: [id number] LOC: B.ICU13 W PHONE #: [phone] EXAM DATE: 08/16/2020 STATUS: ADM IN FAX #: [phone] RAD NO: DC Dt: PAGE 1 Signed ReportCBC W/MANUAL [id number] 04:54:00 Test Item Value Reference Range Interpretation [...] CRITERIA (test code = MDIFF) DIFF/SCN WBC [id number] 04:54:00 Test Item Value Reference Range Interpretation [...] SCAN ADEQUATE code = PLTEST) CBC W/MANUAL [id number] 04:54:00 Test Item Value Reference Range Interpretation [...] CRITERIA (test code = MDIFF) DIFF/SCN WBC [id number] 04:54:00 Test Item Value Reference Range Interpretation [...] SCAN ADEQUATE code = PLTEST) BASIC METABOLIC [id number] 04:51:00 Test Item Value Reference Range Interpretation [...] (test code = MG Index/DL The system [facility] HEMINDEX) generated this result transmit cipriano [...] this result as normal/abnormal . GLUCOSE BEDSIDE [id number] 04:41:00 Test Item Value Reference Range Interpretation Comments GLUCOSE BEDSIDE TESTING (test code 138 MG/DL 70-119 H = GLUBED) ARTERIAL BLOOD [id number] 04:28:00 Test Item Value Reference Range Interpretation [...] MOD) PaO2/FiO2 (test 81.00 mm/Hg code = [id number]) ABG PATIENT RESP 16 /MIN PT RespRate [...] (calc) 95-100 N code = O2S/C) VANCOMYCIN [id number] 00:59:00 Test Item Value Reference Range Interpretation [...] every 48H while on Vancomycin. GLUCOSE BEDSIDE [id number] 20:20:00 Test Item Value Reference Range Interpretation Comments GLUCOSE BEDSIDE TESTING (test code 159 MG/DL 70-119 H = GLUBED) ARTERIAL BLOOD [id number] 14:28:00 Test Item Value Reference Range Interpretation [...] MOD) PaO2/FiO2 (test 91.66 mm/Hg code = [id number]) ABG PATIENT RESP 16 /MIN PT RespRate RATE (test code = RRPATA) ABG TIDAL VOLUME 600 ML (test code = TVA) ABG PEEP (test code 8.0 cm H20 0.0-99.9 = PEEPA) ABG PRESSURE 15.0 cm H20 See_Comment [Automated SUPPORT (test code message] The system = PSAApozy) which generated this result transmitted reference range : 0-. The referen ce range was not u sed to interpret th is result as normal/abnormal . ABG SITE (test code LEFT RADIAL DESCRIPTION = SITEA) ARTKIT MODIFIED DAINA'S POSITIVE POSITIVE (test code = Circ.CHK MODALL) O2 SATURATION (test 87 % (calc) 95-100 L code = O2S/C) Covid 19 InHouse [id number] 13:24:00 Test Item Value Reference Range Interpretation Comments Covid 19 Negative Negative A negative resu lt does not InHouse NTX preclude the SA RS-COV-2 (test code = viralinfection and should not be [id number]) used as the so le basis forpatient [...] performancechar acteristics were determined by [facility]. Thi s test has notbeen FDA alejandro [...] defined by CDC? YesDate of Symptom Onset: [id number] due to COVID? YesIn ICU due to COVID? YesResident in a congregate care setting? No? NoAge at collection: Y GLUCOSE BEDSIDE [id number] 11:30:00 Test Item Value Reference Range Interpretation Comments GLUCOSE BEDSIDE TESTING (test code 165 MG/DL 70-119 H = GLUBED) - XR CHEST 1 [id number] 07:04:00 [facility] [place]: MARCELLE MEDINA : 1970 Sex: F FAX: Ruthy Boateng MD [phone] [place]: C St: ADM FAX: Anthony Galan MD [phone] Patient Name: MARCELLE MEDINA Unit No: [id number] EXAMS: CPT CODE: [id number] XR CHEST 1 V [id number] EXAM: - XR CHEST 1 V INDICATION: [...] MD; Anthony Whittaker MD Dictated Date/Time: 08/15/2020 (703)Technologist: Sandra Moses Transcribed Date/Time: 08/15/2020 (703) By: [email or web address] Orig Print D/T: S: 08/15/2020 (07) [facility] [place] NAME: MARCELLE [facility] PHYS: AHMRA.03 - Ruthy Boateng MD [address] [place] [address] BLVD : 1970 AGE: 50 SEX: F [place], [place] [address] LOC: SantiagoICU13W PHONE #: [phone] EXAM DATE: 08/15/2020 STATUS: ADM IN FAX #: [phone] RAD NO: DC Dt: PAGE 1 Signed ReportCBC W/MANUAL [id number] 06:32:00 Test Item Value Reference Range Interpretation [...] CRITERIA (test code = MDIFF) DIFF/SCN WBC [id number] 06:32:00 Test Item Value Reference Range Interpretation [...] ADEQUATE (test code = PLTEST) BASIC METABOLIC [id number] 05:34:00 Test Item Value Reference Range Interpretation [...] (test code = MG Index/DL The system [employer] Messenger HEMINDEX) generated this result transmit cipriano reference [...] this result as normal/abnormal . BASIC METABOLIC [id number] 05:22:00 Test Item Value Reference Range Interpretation [...] (test code = MG Index/DL The system Field[employer]) generated this result transmit cipriano reference range [...] this result as normal/abnormal . CBC W/MANUAL [id number] 04:57:00 Test Item Value Reference Range Interpretation [...] CRITERIA (test code = MDIFF) DIFF/SCN WBC [id number] 04:57:00 Test Item Value Reference Range Interpretation [...] SCAN ADEQUATE code = PLTEST) CBC W/MANUAL [id number] 04:57:00 Test Item Value Reference Range Interpretation [...] CRITERIA (test code = MDIFF) DIFF/SCN WBC [id number] 04:57:00 Test Item Value Reference Range Interpretation [...] SCAN ADEQUATE code = PLTEST) ARTERIAL BLOOD [id number] 04:44:00 Test Item Value Reference Range Interpretation [...] DESCRIPTION PaO2/FiO2 (test code = 101.66 mm/Hg [id number]) ABG PATIENT RESP RATE (test 22 /MIN PT RespRate code = RRPATA) ABG TIDAL VOLUME (test code 500 ML = TVA) ABG PEEP (test code = 8 cm H20 0.0-99.9 PEEPA) ABG SITE (test code = RT RADIAL ARTKIT DESCRIPTION SITEA) MODIFIED DAINA'S (test code POSITIVE Circ.CHK POSITIVE = MODALL) O2 SATURATION (test code = 93 % (calc) 95-100 L O2S/C) GLUCOSE BEDSIDE [id number] 21:22:00 Test Item Value Reference Range Interpretation Comments GLUCOSE BEDSIDE TESTING (test code 107 MG/DL 70-119 N = GLUBED) VANCOMYCIN [id number] 17:10:00 Test Item Value Reference Range Interpretation Comments VANCOMYCIN TROUGH 18.9 mcG/ML 10 N (test code = VANCT) -------- VANCO [...] every 48H while on Vancomycin. BASIC METABOLIC [id number] 17:05:00 Test Item Value Reference Range Interpretation [...] message] (test code = Index/DL The system [employer] Messenger HEMINDEX) generated this result transmit cipriano reference [...] this result as normal/abnormal . BASIC METABOLIC [id number] 17:04:00 Test Item Value Reference Range Interpretation [...] message] (test code = Index/DL The system FieldLens) generated this result transmit cipriano reference range [...] this result as normal/abnormal . GLUCOSE BEDSIDE [id number] 16:50:00 Test Item Value Reference Range Interpretation Comments GLUCOSE BEDSIDE TESTING (test code 155 MG/DL 70-119 H = GLUBED) GLUCOSE BEDSIDE [id number] 14:19:00 Test Item Value Reference Range Interpretation Comments GLUCOSE BEDSIDE TESTING (test code 123 MG/DL 70-119 H = GLUBED) - XR CHEST 1 [id number] 07:56:00 [facility] CON[place]EName: AMBARBENJILAZARA MARCELLE ALMENDAREZ : 1970 Sex: F FAX: Ruthy Boateng MD [phone] [place]: St: [facility] FAX: Anthony Galan MD [phone] Patient Name: CAROLMARCELLE ALMENDAREZ Unit No: [id number] EXAMS: CPT CODE: [id number] XR CHEST 1 V [id number] EXAM: - XR CHEST 1 V INDICATION: covid/vent Location: T 18. COMPARISON: 08/13/2020 TECHNIQUE: Frontal view of thechest. FINDINGS: Majmf-cy-mwqwhnso bilateral opacities appear unchanged.She appearance of endotracheal tube and NG tube. Cardiomediastinal silhouette and osseous structures appear unremarkable. No pleural effusion appreciated. IMPRESSION: Unchanged bilateral opacities. at 0756 Reported and signed by: Marcelo Henriquez MD CC:Ruthy Boateng MD; Anthony Whittaker MD Dictated Date/Time: 08/14/2020 (0756)Technologist: Toyin Jamil; Cindy Couch Transcribed Date/Time: 08/14/2020 (0756) By: [email or web address] Orig Print D/T: S: 08/14/2020 (0800) [facility] [place] NAME: MARCELLE [facility] PHYS: BANDARMRA.Ruthy Cai MD [address] [place] [address] BLVD : 1970 AGE: 50 SEX: F [place], [place] [address] LOC: [facility]ICU13 W PHONE #: [phone] EXAM DATE: 08/14/2020 STATUS: ADM IN FAX #: [phone] RAD NO: DC Dt: PAGE 1 Signed ReportCOMPREHENSIVE METABOLIC [id number] 04:53:00 Test Item Value Reference Range Interpretation [...] (test code = MG Index/DL The system [employer] Messenger HEMINDEX) generated this result transmit cipriano reference [...] to interpret this result as normal/abnormal . [id number] 04:53:00 Test Item Value Reference Range Interpretation Comments TRIGLYCERIDES (test code 76 MG/DL 0-150 N Res ults may be = TRIG) depressed if geno gordon is takingN-Acetylc ystein e (NAC) and Metamizole (Dipyrone). COMPREHENSIVE METABOLIC [id number] 04:50:00 Test Item Value Reference Range Interpretation [...] (test code = MG Index/DL The system [employer] Messenger HEMINDEX) generated this result transmit cipriano reference [...] to interpret this result as normal/abnormal . [id number] 04:50:00 Test Item Value Reference Range Interpretation Comments TRIGLYCERIDES (test code = TRIG) MG/DL 0-150 CBC W/AUTO [id number] 04:26:00 Test Item Value Reference Range Interpretation [...] 0.00 K/mm3 0.0-0.05 N NRBC#) ARTERIAL BLOOD [id number] 04:19:00 Test Item Value Reference Range Interpretation [...] DESCRIPTION PaO2/FiO2 (test code = 115.00 mm/Hg [id number]) ABG PATIENT RESP RATE (test 22 /MIN PT RespRate code = RRPATA) ABG TIDAL VOLUME (test code 500 ML = TVA) ABG PEEP (test code = 10.0 cm H20 0.0-99.9 PEEPA) ABG SITE (test code = RT RADIAL ARTKIT DESCRIPTION SITEA) MODIFIED DAINA'S (test code POSITIVE Circ.CHK POSITIVE = MODALL) O2 SATURATION (test code = 94 % (calc) 95-100 L O2S/C) GLUCOSE BEDSIDE [id number] 21:21:00 Test Item Value Reference Range Interpretation Comments GLUCOSE BEDSIDE TESTING (test code = 85 MG/DL 70-119 N GLUBED) AB HIV 1 12:07:00 Test Item Value Reference Range Interpretation Comments AB HIV 1 2 NonReactive SREEN NR This i s a screening (test code = test only A [id number]) Non-Reactive te st result does not exclude [...] onall Reactive test r esults. B-TYPE NATRIURETIC [id number] 11:37:00 Test Item Value Reference Range Interpretation Comments B-TYPE NATRIURETIC PEPTIDE < 30.00 PG/ML 0.00-100.00 N (test code = BNP) THYROID STIMULATING [id number] 11:05:00 Test Item Value Reference Range Interpretation Comments THYROID STIMULATING HORMONE 2.370 mc IU/ML 0.340-4.820 N (test code = TSH) BASIC METABOLIC [id number] 10:48:00 Test Item Value Reference Range Interpretation [...] normal/abnormal . UA RFLX MICR CULT IF [id number] 10:46:00 Test Item Value Reference Range Interpretation [...] CULT-N/A Criteria Indication for culture: RiskForSepsis-no oth [id number] 10:44:00 Test Item Value Reference Range Interpretation Comments AMMONIA (test code = AMM) 17.0 mcMOL/L 11.0-32.0 N - XR CHEST 1 [id number] 07:38:00 [facility] [place]ame: MARCELLE MEDINA : 1970 Sex: F FAX: Ruthy Boateng MD [phone] [place]: St: ADM FAX: Anthony Galan MD [phone] Patient Name: MARCELLE MEDINA Unit No: [id number] EXAMS: CPT CODE: [id number] XR CHEST 1 V [id number] EXAM: - XR CHEST 1 V INDICATION: [...] Toyin Jamil; Cindy Couch Transcribed Date/Time: 08/13/2020 (0738) By: [email or web address] Orig Print D/T: S: 08/13/2020 (0741) [facility] [place] NAME: AMBARLALOMARCELLE [facility] PHYS: AHMRA.03 - Ruthy Boateng MD [address] [place] [address] : 1970 AGE: 50 SEX: Cb [place], [place] [address] LOC: Mich.ICU13 W PHONE #: [phone] EXAM DATE: 08/13/2020 STATUS: ADM IN FAX #: [phone] RAD NO: DC Dt: PAGE 1 Signed ReportGLUCOSE BEDSIDE TESTING 2020-08-13 07:33:00 Test Item Value Reference Range Interpretation Comments GLUCOSE BEDSIDE TESTING (test code 100 MG/DL 70-119 N = GLUBED) BASIC METABOLIC [id number] 06:07:00 Test Item Value Reference Range Interpretation [...] message] (test code = Index/DL The system FieldLens) generated this result transmit cipriano reference range [...] this result as normal/abnormal . BASIC METABOLIC [id number] 06:06:00 Test Item Value Reference Range Interpretation [...] message] (test code = Index/DL The system Task Messenger HEMINDEX) generated this result transmit cipriano reference [...] this result as normal/abnormal . CBC W/AUTO [id number] 05:48:00 Test Item Value Reference Range Interpretation [...] 0.00 K/mm3 0.0-0.05 N NRBC#) GLUCOSE BEDSIDE [id number] 05:20:00 Test Item Value Reference Range Interpretation Comments GLUCOSE BEDSIDE TESTING (test code 124 MG/DL 70-119 H = GLUBED) ARTERIAL BLOOD [id number] 04:10:00 Test Item Value Reference Range Interpretation [...] DESCRIPTION PaO2/FiO2 (test code = 111.66 mm/Hg [id number]) ABG PATIENT RESP RATE (test 22 /MIN PT RespRate code = RRPATA) ABG TIDAL VOLUME (test code 500 ML = TVA) ABG PEEP (test code = 12 cm H20 0.0-99.9 PEEPA) ABG SITE (test code = RT RADIAL ARTKIT DESCRIPTION SITEA) MODIFIED DAINA'S (test code POSITIVE Circ.CHK POSITIVE = MODALL) O2 SATURATION (test code = 94 % (calc) 95-100 L O2S/C) GLUCOSE BEDSIDE [id number] 23:47:00 Test Item Value Reference Range Interpretation Comments GLUCOSE BEDSIDE TESTING (test code 116 MG/DL 70-119 N = GLUBED) GLUCOSE BEDSIDE [id number] 16:55:00 Test Item Value Reference Range Interpretation Comments GLUCOSE BEDSIDE TESTING (test code 133 MG/DL 70-119 H = GLUBED) GLUCOSE BEDSIDE [id number] 13:04:00 Test Item Value Reference Range Interpretation Comments GLUCOSE BEDSIDE TESTING (test code 122 MG/DL 70-119 H = GLUBED) - XR CHEST 1 [id number] 11:39:00 [facility] [place]EName: MARCELLE MEDINA : 1970 Sex: F FAX: Ruthy Boateng MD [phone] [place]: C St: ADM FAX: Anthony Galan MD [phone] Patient Name: MARCELLE MEDINA Unit No: [id number] EXAMS: CPT CODE: [id number] XR CHEST 1 V [id number] CHEST 1 VIEW: INDICATION: ET tube adjustment [...] MD; Anthony Whittaker MD Dictated Date/Time: 08/12/2020 (2106)Technologist: Sandra Jimenez Transcribed Date/Time: 08/12/2020 (1136) By: [email or web address] Orig Print D/T: S: 08/12/2020 (9093) [facility]: [facility]LE [facility] PHYS: AHMRA.Luis - Ruthy Boateng MD [address] [place] [address] BLVD : 1970 AGE: 50 SEX: [place] [address] LOC: B.ICU13 W PHONE #: [phone] DATE: 08/12/2020 STATUS: ADM IN FAX #: [phone] RAD NO: DC Dt: PAGE 1 Signed [id number] 09:51:00 Test Item Value Reference Range Interpretation Comments MAGNESIUM (test code = MAG) 2.2 MG/DL 1.6-2.6 N BASIC METABOLIC [id number] 06:26:00 Test Item Value Reference Range Interpretation [...] message] (test code = Index/DL The system FieldLens) generated this result transmit cipriano reference range [...] this result as normal/abnormal . HEPATIC FUNCTION [id number] 06:26:00 Test Item Value Reference Range Interpretation [...] N code = ALKP) CREATININE W ESTIMATED [id number] 06:26:00 Test Item Value Reference Range Interpretation [...] utilize differe nt calculationpara meters. BASIC METABOLIC [id number] 06:23:00 Test Item Value Reference Range Interpretation [...] message] (test code = Index/DL The system Task Messenger HEMINDPatient Education Systems) generated this result transmit cipriano reference range [...] this result as normal/abnormal . HEPATIC FUNCTION [id number] 06:23:00 Test Item Value Reference Range Interpretation [...] 45-117 code = ALKP) CREATININE W ESTIMATED [id number] 06:23:00 Test Item Value Reference Range Interpretation [...] utilize differe nt calculationpara meters. CBC W/AUTO [id number] 06:14:00 Test Item Value Reference Range Interpretation [...] 0.00 K/mm3 0.0-0.05 N NRBC#) ARTERIAL BLOOD [id number] 05:01:00 Test Item Value Reference Range Interpretation [...] DESCRIPTION PaO2/FiO2 (test code = 90.00 mm/Hg KLL3YHI2) ABG PATIENT RESP RATE (test 22 /MIN PT RespRate code = RRPATA) ABG TIDAL VOLUME (test code 500 ML = TVA) ABG PEEP (test code = 10 cm H20 0.0-99.9 PEEPA) ABG SITE (test code = RT RADIAL ARTKIT DESCRIPTION SITEA) MODIFIED DAINA'S (test code POSITIVE Circ.CHK POSITIVE = MODALL) O2 SATURATION (test code = 97 % (calc) 95-100 N O2S/C) GLUCOSE BEDSIDE [id number] 20:44:00 Test Item Value Reference Range Interpretation Comments GLUCOSE BEDSIDE TESTING (test code 119 MG/DL 70-119 N = GLUBED) GLUCOSE BEDSIDE [id number] 16:47:00 Test Item Value Reference Range Interpretation Comments GLUCOSE BEDSIDE TESTING (test code 157 MG/DL 70-119 H = GLUBED) Covid 19 InHouse [id number] 11:40:00 Test Item Value Reference Range Interpretation Comments Covid 19 Negative Negative A negative resu lt does not InHouse NTX preclude the SA RS-COV-2 (test code = viralinfection and should not be [id number]) used as the so le basis forpatient [...] performancechar acteristics were determined by [facility]. Thi s test has notbeen FDA alejandro [...] defined by CDC? YesDate of Symptom Onset: [id number] due to COVID? NoIn ICU due to COVID? NoResident in a congregate care setting? No? NoAge at collection: Y GLUCOSE BEDSIDE [id number] 11:38:00 Test Item Value Reference Range Interpretation Comments GLUCOSE BEDSIDE TESTING (test code 180 MG/DL 70-119 H = GLUBED) BASIC METABOLIC [id number] 05:33:00 Test Item Value Reference Range Interpretation [...] message] (test code = Index/DL The system Task Messenger HEMINDEX) generated this result transmit cipriano reference [...] this result as normal/abnormal . HEPATIC FUNCTION [id number] 05:33:00 Test Item Value Reference Range Interpretation [...] N code = ALKP) CREATININE W ESTIMATED [id number] 05:33:00 Test Item Value Reference Range Interpretation [...] utilize differe nt calculationpara meters. BASIC METABOLIC [id number] 05:28:00 Test Item Value Reference Range Interpretation [...] message] (test code = Index/DL The system [employer] Messenger HEMINDPatient Education Systems) generated this result transmit cipriano reference range [...] this result as normal/abnormal . HEPATIC FUNCTION [id number] 05:28:00 Test Item Value Reference Range Interpretation [...] 45-117 code = ALKP) CREATININE W ESTIMATED [id number] 05:28:00 Test Item Value Reference Range Interpretation Comments ESTIMATED CREATININE CLEARANCE est CRCL 85.0-125.0 (test code = CREATCLEST) CBC W/AUTO [id number] 05:14:00 Test Item Value Reference Range Interpretation [...] 0.00 K/mm3 0.0-0.05 N NRBC#) GLUCOSE BEDSIDE [id number] 04:48:00 Test Item Value Reference Range Interpretation Comments GLUCOSE BEDSIDE TESTING (test code 156 MG/DL 70-119 H = GLUBED) ARTERIAL BLOOD [id number] 04:18:00 Test Item Value Reference Range Interpretation [...] (test code = 9.1 mmol/L -3.0-3.0 H OLAG) FIO2 (test code = FIO2A) 100 % (calc) 21-100 N MODALITY (test code = MOD) CMV COMMENT DESCRIPTION PaO2/FiO2 (test code = 83.00 mm/Hg [id number]) ABG PATIENT RESP RATE (test 22 /MIN PT RespRate code = RRPATA) ABG TIDAL VOLUME (test code 500 ML = TVA) ABG PEEP (test code = 10.0 cm H20 0.0-99.9 PEEPA) ABG SITE (test code = RT RADIAL ARTKIT DESCRIPTION SITEA) MODIFIED DAINA'S (test code POSITIVE Circ.CHK POSITIVE = MODALL) O2 SATURATION (test code = 97 % (calc) 95-100 N O2S/C) GLUCOSE BEDSIDE [id number] 00:29:00 Test Item Value Reference Range Interpretation Comments GLUCOSE BEDSIDE TESTING (test code 111 MG/DL 70-119 N = GLUBED) GLUCOSE BEDSIDE [id number] 17:38:00 Test Item Value Reference Range Interpretation Comments GLUCOSE BEDSIDE TESTING (test code 143 MG/DL 70-119 H = GLUBED) BASIC METABOLIC [id number] 17:21:00 Test Item Value Reference Range Interpretation [...] message] (test code = Index/DL The system FieldLens) generated this result transmit cipriano reference range [...] this result as normal/abnormal . GLUCOSE BEDSIDE [id number] 13:19:00 Test Item Value Reference Range Interpretation Comments GLUCOSE BEDSIDE TESTING (test code 125 MG/DL 70-119 H = GLUBED) ARTERIAL BLOOD [id number] 12:31:00 Test Item Value Reference Range Interpretation [...] DESCRIPTION PaO2/FiO2 (test code = 65.00 mm/Hg [id number]) ABG PATIENT RESP RATE 20 /MIN PT [...] 95-100 L O2S/C) - XR CHEST 1 [id number] 08:11:00 [facility] [place]: RUTHSALLYMARCELLE MAY : 1970 Sex: F FAX: Ruthy Boateng MD [phone] [place]: C St: [facility] FAX: Anthony Galan MD [phone] Patient Name: CAROLMARCELLE ALMENDAREZ Unit No: [id number] EXAMS: CPT CODE: [id number] XR CHEST 1 V 02019 STUDY: Chest radiograph HISTORY: Covid COMPARISON: 08/09/2020 [...] MD; Anthony Whittaker MD Dictated Date/Time: 08/10/2020 (08)Technologist: Fanny Hoang Transcribed Date/Time: 08/10/2020 (08) By: [email or web address] Orig Print D/T: S: 08/10/2020 (0815) [place] NAME: PRIYANKA MEDINAOSKAROPAL [facility] PHYS: FABI.03 - Ruthy Boateng MD [address] [place] [address] : 1970 AGE: 50 SEX: F [place], [place] [address] LOC: B.ICU13 W PHONE #: [phone] EXAM DATE: 08/10/2020 STATUS: ADM IN FAX #: [phone] RAD NO: DC Dt: PAGE 1 Signed [...] (test code = MG Index/DL The system Task Messenger HEMINDPatient Education Systems) generated this result transmit cipriano reference range [...] this result as normal/abnormal . HEPATIC FUNCTION [id number] 06:33:00 Test Item Value Reference Range Interpretation [...] N code = ALKP) CREATININE W ESTIMATED [id number] 06:33:00 Test Item Value Reference Range Interpretation Comments ESTIMATED 394.29 est 85.0-125.0 H The estimated c reatinine CREATININE CRCL clearance is co mputed CLEARANCE (test using aliciaen jennifer, age, code = sex, and serum CREATCLEST) creatinine. Est imated creatinineclear ance units = ml/min. If a ny of the needed dataelem ents are missing the Lab oratory can not compute anestimation of the creatinine morgan kwong.--- DRUG DOSAGE JOSIE RT --- Drug dosage [...] the glomerular filt ration rate.The GFR [facility] units = ml/min/1.73 m eter squared. Estim atedGFR values above 60 should be interpreted as >60, not anexact number. --- DRUG DOSAGE ALERT -- - Drug dosage adjustme nts utilize differe nt calculationpara meters. CBC W/AUTO [id number] 05:51:00 Test Item Value Reference Range Interpretation [...] 0.00 K/mm3 0.0-0.05 N NRBC#) GLUCOSE BEDSIDE [id number] 05:46:00 Test Item Value Reference Range Interpretation Comments GLUCOSE BEDSIDE TESTING (test code 110 MG/DL 70-119 N = GLUBED) ARTERIAL BLOOD [id number] 04:31:00 Test Item Value Reference Range Interpretation Comments ARTERIAL BLOOD GAS 7.51 pH units 7.35-7.45 H PH (test code = PHA) ARTERIAL BLOOD GAS 40 mmHg 35-45 N PCO2 (test code = PCO2A) ARTERIAL BLOOD GAS 54 mmHg 80-100 LL ON AT PO2 (test code = 0431, B.CPS .MTM1 PO2A) CALLED TO BIBI MUNOZ RN. e report was confirmed by re ad back protocols Y,N: Y. BICARBONATE TOTAL 32.1 mmol/L 22.0-26.0 H HCO3 (test code = HCO3) BASE EXCESS (test 9.2 mmol/L -3.0-3.0 H code = OLGA) FIO2 (test code = 80 % (calc) 21-100 N FIO2A) MODALITY (test code SIMV COMMENT DESCRIPTION = MOD) PaO2/FiO2 (test 67.50 mm/Hg code = [id number]) ABG PATIENT RESP 22 /MIN PT RespRate [...] range was not u sed to interpret is result as normal/abnormal . ABG SITE (test code RT RADIAL ARTKIT DESCRIPTION = SITEA) MODIFIED DAINA'S POSITIVE POSITIVE (test code = Circ.CHK MODALL) O2 SATURATION (test 88 % (calc) 95-100 L code = O2S/C) GLUCOSE BEDSIDE [id number] 16:45:00 Test Item Value Reference Range Interpretation Comments GLUCOSE BEDSIDE TESTING (test code = 84 MG/DL 70-119 N GLUBED) Covid 19 InHouse [id number] 13:28:00 Test Item Value Reference Range Interpretation Comments Covid 19 Negative Negative A negative resu lt does not InHouse NTX preclude the SA RS-COV-2 (test code = viralinfection and should not be [id number]) used as the so le basis forpatient [...] performancechar acteristics were determined by [facility]. Thi s test has notbeen FDA alejandro [...] defined by CDC? YesDate of Symptom Onset: [id number] due to COVID? NoIn ICU due to COVID? YesResident in a congregate care setting? No? NoAge at collection: Y GLUCOSE BEDSIDE [id number] 12:19:00 Test Item Value Reference Range Interpretation Comments GLUCOSE BEDSIDE TESTING (test code = 73 MG/DL 70-119 N GLUBED) - XR CHEST 1 [id number] 07:38:00 [facility] CON[facility]: MARCELLE MEDINA : 1970 Sex: F FAX: Ruthy Boateng MD [phone] [place]: St: [facility] FAX: Anthony Galan MD [phone] Patient Name: RUTHSALLYMARCELLE MAY Unit No: [id number] EXAMS: CPT CODE: [id number] XR CHEST 1 V 80586 EXAMINATION: - XR CHEST 1 V HISTORY: [...] 08/09/2020 (0738)Technologist: Toyin Jamil Transcribed Date/Time: 08/09/2020 (07) By: [email or web address] Orig Print D/T: S: 08/09/2020 (0741) GALDINO Ribeiro NAME: MARCELLE MEDINA MEDICAL IMAGING PHYS: Ruthy Paulino MD [address] [place] [address] : 1970 AGE: 50 SEX: F [place], [place] [address] LOC: B.ICU13 W PHONE #: [phone] EXAM DATE: 08/09/2020 STATUS: ADM IN FAX #: [phone] RAD NO: DC Dt: PAGE 1 Signed ReportBASIC METABOLIC [id number] 06:27:00 Test Item Value Reference Range Interpretation [...] this result as normal/abnormal . HEPATIC FUNCTION [id number] 06:27:00 Test Item Value Reference Range Interpretation [...] N code = ALKP) CREATININE W ESTIMATED [id number] 06:27:00 Test Item Value Reference Range Interpretation [...] not compute anestimation of the creatinine morgan kwong.--- DRUG DOSAGE JOSIE RT --- Drug dosage [...] the glomerular filt ration rate.The GFR va lu units = ml/min/1.73 m eter squared. Estim atedGFR values above 60 should be interpreted as >60, not anexact number. --- DRUG DOSAGE ALERT -- - Drug dosage adjustme nts utilize differe nt calculationpara meters. BASIC METABOLIC [id number] 05:47:00 Test Item Value Reference Range Interpretation [...] (test code = MG Index/DL The system FieldLens) generated this result transmit cipriano reference range [...] this result as normal/abnormal . HEPATIC FUNCTION [id number] 05:47:00 Test Item Value Reference Range Interpretation [...] Unit/L 45-117 = ALKP) CREATININE W ESTIMATED [id number] 05:47:00 Test Item Value Reference Range Interpretation Comments ESTIMATED CREATININE CLEARANCE est CRCL 85.0-125.0 (test code = CREATCLEST) CBC W/AUTO [id number] 05:40:00 Test Item Value Reference Range Interpretation [...] 0.00 K/mm3 0.0-0.05 N NRBC#) ARTERIAL BLOOD [id number] 04:25:00 Test Item Value Reference Range Interpretation [...] MOD) PaO2/FiO2 (test 78.66 mm/Hg code = ZOI1BJO1) ABG PATIENT RESP 22 /MIN PT RespRate [...] range was not u sed to interpret is result as normal/abnormal . ABG SITE (test code RT RADIAL ARTKIT DESCRIPTION = SITEA) MODIFIED DAINA'S POSITIVE POSITIVE (test code = Circ.CHK MODALL) O2 SATURATION (test 91 % (calc) 95-100 L code = O2S/C) GLUCOSE BEDSIDE [id number] 16:50:00 Test Item Value Reference Range Interpretation Comments GLUCOSE BEDSIDE TESTING (test code 121 MG/DL 70-119 H = GLUBED) HEPATIC FUNCTION [id number] 13:17:00 Test Item Value Reference Range Interpretation [...] Specimen comments: Prior to Remdesivir dosingHEPATIC FUNCTION [id number] 13:15:00 Test Item Value Reference Range Interpretation [...] (Dipyrone). Specimen comments: Prior to Remdesivir dosingPROTHROMBIN [id number] 13:02:00 Test Item Value Reference Range Interpretation [...] 3.0-5.4 AMI mortality reduc tion GLUCOSE BEDSIDE [id number] 11:35:00 Test Item Value Reference Range Interpretation Comments GLUCOSE BEDSIDE TESTING (test code 150 MG/DL 70-119 H = GLUBED) - XR CHEST 1 [id number] 07:11:00 [facility] CON[facility]EN[facility]: MARCELLE MEDINA : 1970 Sex: F FAX: Ruthy Boateng MD [phone] [place]: C St: ADM FAX: Anthony Galan MD [phone] Patient Name: MARCELLE MEDINA Unit No: [id number] EXAMS: CPT CODE: [id number] XR CHEST 1 V 22739 EXAMINATION: - XR CHEST 1 V HISTORY: [...] IMAGING PHYS: AHMRA.03 - Ruthy Boateng MD [address] [place] [address] : 1970 AGE: 50 SEX: Cb [place], [place] [address] LOC: [place].ICU08 W PHONE #: [phone] EXAM DATE: 08/08/2020 STATUS: ADM IN FAX #: [phone] RAD NO: DC Dt: PAGE 1 Signed ReportCBC W/AUTO [id number] 06:40:00 Test Item Value Reference Range Interpretation [...] 0.00 K/mm3 0.0-0.05 N NRBC#) PT AND [id number] 06:10:00 Test Item Value Reference Interpretation Comments [...] prevention in p rosthetic heart 3.0-5.4 A HI mortality reduc tion THROMBOPLASTIN TIME 25.9 SECONDS [...] (test code = a.STF.FA9 CA LLED TO [facility]) REID ECKERT.The report was conf irmed by read back protocols Y,N: Y. Specimen comments: FOR DIGITAL PRINTER OPERATOR PROCEDURE TODAYComments to Ophthalmologist: NEEDS RAPID TESTINGBASIC METABOLIC [id number] 05:53:00 Test Item Value Reference Range Interpretation [...] (test code = MG Index/DL The system FieldLens) generated this result transmit cipriano reference range [...] this result as normal/abnormal . ARTERIAL BLOOD [id number] 04:13:00 Test Item Value Reference Range Interpretation [...] MOD) PaO2/FiO2 (test 93.33 mm/Hg code = YHI2NLV7) ABG PATIENT RESP 22 /MIN PT RespRate [...] code = O2S/C) - NM PULM PERF [id number] 13:13:00 [facility]: AMBARBENJILAZARA MARCELLE ALMENDAREZ : 1970 Sex: F Patient Name: MARCELLE MEDINA TANESHA Unit No: [id number] EXAMS: CPT CODE: [id number] NM PULM PERF PARTIC [id number] Nuclear medicine lung perfusion scan: INDICATION: refractory [...] CC: Ruthy Boateng MD; Anthony Whittaker MD [facility] Quintin NAME: MARCELLE MEDINA MEDICAL IMAGING PHYS: AHFABIANO - Ruthy Boateng MD [address] [place] [address] : 1970 AGE: 50 SEX: Cb [place] [address] LOC: B.ICU08 W PHONE #: [phone] EXAM DATE: 08/07/2020 STATUS: ADM IN FAX #: [phone] RAD NO: DC Dt: PAGE 1 Signed Report Patient Name: MARCELLE MEDINA Unit No: [id number] EXAMS: CPT CODE: [id number] NM PULM PERF PARTIC [id number] <Continued> Technologist: Rose Lizarraga Transcribed Date/Time: 08/07/2020 (1313) - TobyR.NB16 Orig Print D/T: S: 08/07/2020 (1316) [facility] Quintin NAME: MARCELLE MEDINA TANESHA MEDICAL IMAGING PHYS: AH Ruthy Cox MD [address] [place] [address] : 1970 AGE: 50 SEX: [place] [address] LOC: B.ICU08 W PHONE #: [phone] EXAM DATE: 08/07/2020 STATUS: ADM IN FAX #: [phone] RAD NO: DC Dt: PAGE 2 Signed Report- XR CHEST 1 [id number] 07:14:00 [facility] CON[facility]EN[facility]: MARCELLE MEDINA : 1970 Sex: F FAX: Ruthy Boateng MD [phone] [place]: C St: [facility] FAX: Anthony Galan MD [phone] Patient Name: MARCELLE MEDINA Unit No: [id number] EXAMS: CPT CODE: [id number] XR CHEST 1 V 70821 EXAMINATION: - XR CHEST 1 V HISTORY: [...] the right lung base, likely atelectasis t 07 Reported and signed by: Mar Metz MD CC:Ruthy Boateng MD; Anthony Whittaker MD Dictated Date/Time: 08/07/2020 (713)Technologist: Sandra Moses Transcribed Date/Time: 08/07/2020 (0714) By: [email or web address] Orig Print D/T: S: 08/07/2020 (0717) GALDINO Ribeiro NAME: MARCELLE MEDINA MEDICAL IMAGING PHYS: AHMRARuthy Pike MD [address] [place], [place] [address]VD : 1970 AGE: 50 SEX: Cb [place], [place] [address] LOC: B.ICU08 W PHONE #: [phone] EXAM DATE: 08/07/2020 STATUS: ADM IN FAX #: [phone] RAD NO: DC Dt: PAGE 1 Signed [...] MOD) PaO2/FiO2 (test 88.57 mm/Hg code = [id number]) ABG PATIENT RESP 22 /MIN PT RespRate [...] 95-100 L code = O2S/C) COMPREHENSIVE METABOLIC [id number] 05:01:00 Test Item Value Reference Range Interpretation [...] (test code = MG Index/DL The system Task Messenger HEMINDEX) generated this result transmit cipriano reference [...] this result as normal/abnormal . COMPREHENSIVE METABOLIC [id number] 04:46:00 Test Item Value Reference Range Interpretation [...] (test code = MG Index/DL The system GeeYeeNDPatient Education Systems) generated this result transmit cipriano reference range [...] this result as normal/abnormal . CBC W/AUTO [id number] 04:30:00 Test Item Value Reference Range Interpretation [...] 0.00 K/mm3 0.0-0.05 N NRBC#) GLUCOSE BEDSIDE [id number] 00:31:00 Test Item Value Reference Range Interpretation Comments GLUCOSE BEDSIDE TESTING (test code 127 MG/DL 70-119 H = GLUBED) GLUCOSE BEDSIDE [id number] 18:59:00 Test Item Value Reference Range Interpretation Comments GLUCOSE BEDSIDE TESTING (test code 149 MG/DL 70-119 H = GLUBED) - XR CHEST 1 [id number] 07:03:00 [facility] CON[facility]EName: MARCELLE MEDINA : 1970 Sex: F FAX: Ruthy Boateng MD [phone] [place]: C St: [facility] FAX: Anthony Galan MD [phone] Patient Name: MARCELLE MEDINA Unit No: [id number] EXAMS: CPT CODE: [id number] XR CHEST 1 V 19556 EXAMINATION: - XR CHEST 1 V HISTORY: [...] Ribeiro NAME: MARCELLE MEDINA MEDICAL IMAGING PHYS: FABI.Luis - Ruthy Boateng MD [address] [place] [address] BLVD : 1970 AGE: 50 SEX: F [place], [place] [address] LOC: B.ICU08 W PHONE #: [phone] EXAM DATE: 08/06/2020 STATUS: ADM IN FAX #: [phone] RAD NO: DC Dt: PAGE1 Signed ReportTROPONIN-I [...] changes in trop onin levelscharacter istic of HI. LIPID PROFILE (CORONARY RISK)2020-08-06 05:43:00 Test Item Value Reference Interpretation Comments Range TRIGLYCERIDES (test 188 MG/DL 0-150 H BORDERLI NE HIGH RISK code = TRIG) TRIGLYCERIDE 15 0-199 MG/DLReference intervals provided by The National CholesterolEduc ation Program Adult T reatment Panel III (NCEP -ATP III).Results ma y be depressed if pa tient is takingN-Acetylc ysteine (NAC) and Metam izole [...] rage [Automated mess age] The system which Oesia nerated this result tra nsmitted reference range [...] The code = ICTINDEX) MG Index/DL system whic h generated this result tra nsmitted reference range : 1 NORMAL. The ref erence range was not u sed to interpret this result as normal/abnormal . INDEX LIPEMIA (test 1 NORMAL <50 See_Comment [Automa cipriano message] The code = LIPINDEX) MG Index/DL system [facility] generated this result tra nsmitted reference range : 1 NORMAL. The ref erence range was not u sed to interpret this result as normal/abnormal . LIPID PROFILE (CORONARY RISK)2020-08-06 05:39:00 Test Item Value Reference Range Interpretation Comments TRIGLYCERIDES (test MG/DL 0-150 code = TRIG) CHOLESTEROL (test MG/DL 133-200 code = CHOL) CHOLESTEROL/HDL RATIO RATIO See_Comment [Auto mated (test code = CHOLHDL) messag e] The system which generated this result [...] cipriano code = LIPINDEX) MG Index/DL message] e system which generated this result transmitted reference range : 1 NORMAL. The reference range was not used to interpret this result as normal/abnormal . BASIC METABOLIC [id number] 05:38:00 Test Item Value Reference Range Interpretation [...] message] (test code = Index/DL The system FieldLens) generated this result transmit cipriano reference range [...] this result as normal/abnormal . BASIC METABOLIC [id number] 05:33:00 Test Item Value Reference Range Interpretation [...] message] (test code = Index/DL The system Task Messenger HEMINDEX) generated this result transmit cipriano reference [...] this result as normal/abnormal . CBC W/AUTO [id number] 05:16:00 Test Item Value Reference Range Interpretation [...] 0.00 K/mm3 0.0-0.05 N NRBC#) ARTERIAL BLOOD [id number] 04:22:00 Test Item Value Reference Range Interpretation [...] MOD) PaO2/FiO2 (test code 108.33 mm/Hg = [id number]) ABG PATIENT RESP 20 /MIN PT RespRate [...] 95-100 L code = O2S/C) ARTERIAL BLOOD [id number] 17:27:00 Test Item Value Reference Range Interpretation [...] MOD) PaO2/FiO2 (test 112.00 mm/Hg code = AWO4EEX1) ABG PATIENT RESP 20 /MIN PT RespRate [...] 95-100 L code = O2S/C) PT AND [id number] 13:39:00 Test Item Value Reference Interpretation Comments [...] prevention in p rosthetic heart 3.0-5.4 A HI mortality reduc tion THROMBOPLASTIN TIME 26.4 SECONDS [...] THERAPY [Y,N]: NOUA RFLX MICR CULT IF [id number] 06:38:00 Test Item Value Reference Range Interpretation [...] Indication for culture: RiskForSepsis-no oth srcComments to Ophthalmologist: FROM [place] [facility] HEPAT[facility]IS B [id number] 04:49:00 Test Item Value Reference Range Interpretation [...] (WHO) World Hea lth Organization. HBSAG NEUTRALIZATION [id number] 04:49:00 Test Item Value Reference Range Interpretation Comments AG HEPATITIS B SURFACE NEG-NONREAC SCREEN Nonreactive (test code = HBSAG) AB HEPATITIS B CORE [id number] 04:49:00 Test Item Value Reference Range Interpretation Comments AB HEPATITIS B CORE IGM NonReactive SCREEN Nonreactive (test code = HBCMAB) AB HEPATITIS [id number] 04:49:00 Test Item Value Reference Range Interpretation Comments AB HEPATITIS C (test code = HCVAB) NR SCREEN Nonreactive COMPREHENSIVE METABOLIC [id number] 04:41:00 Test Item Value Reference Range Interpretation [...] (test code = MG Index/DL The system Task Messenger HEMINDEX) generated this result transmit cipriano reference [...] this result as normal/abnormal . ARTERIAL BLOOD [id number] 04:37:00 Test Item Value Reference Range Interpretation [...] DESCRIPTION PaO2/FiO2 (test code = 142.85 mm/Hg RES8EYL0) ABG PATIENT RESP RATE (test 20 /MIN [...] (calc) 95-100 N O2S/C) AB HEPATITIS B [id number] 04:26:00 Test Item Value Reference Range Interpretation [...] (WHO) World Hea lth Organization. HBSAG NEUTRALIZATION [id number] 04:26:00 Test Item Value Reference Range Interpretation Comments AG HEPATITIS B SURFACE NEG-NONREAC SCREEN Nonreactive (test code = HBSAG) AB HEPATITIS B CORE [id number] 04:26:00 Test Item Value Reference Range Interpretation Comments AB HEPATITIS B CORE IGM (test code = SCREEN Nonreactive HBCMAB) AB HEPATITIS [id number] 04:26:00 Test Item Value Reference Range Interpretation Comments AB HEPATITIS C (test code = HCVAB) NR SCREEN Nonreactive COMPREHENSIVE METABOLIC [id number] 04:19:00 Test Item Value Reference Range Interpretation [...] (test code = MG Index/DL The system Task Messenger HEMINDEX) generated this result transmit cipriano reference [...] this result as normal/abnormal . COMPREHENSIVE METABOLIC [id number] 04:10:00 Test Item Value Reference Range Interpretation [...] (test code = MG Index/DL The system GeeYeeNDPatient Education Systems) generated this result transmit cipriano reference range [...] to interpret this result as normal/abnormal . [id number] 04:01:00 Test Item Value Reference Range Interpretation [...] changes in trop onin levelscharacter istic of HI. - US ABDOMEN [id number] 04:00:00 [facility] CON[facility]EName: MARCELLE MEDINA : 1970 Sex: F Patient Name: MARCELLE MEDINA Unit No: [id number] EXAMS: CPT CODE: [id number] US ABDOMEN LTD 60736 HISTORY: Hepatitis COMPARISON: None FINDINGS: The gallbladder [...] Technologist: Savannah Graham RDMS Trnscrbd D/ (0400) Anabela.RXC2 Probe: Orig Print D/T: S: 08/05/2020 (0403) Probe: GALDINO Ribeiro NAME: MARCELLE MEDINA MEDICAL IMAGING PHYS: Anthony Pham MD [address] [place] [address] BLVD : 1970 AGE: 50 SEX: F [place] [address] LOC: Mich.ICU08 W PHONE #: [phone] EXAM DATE: 08/05/2020 STATUS:ADM IN FAX #: [phone] RAD NO: Page 1 Signed ReportCBC W/AUTO [id number] 03:41:00 Test Item Value Reference Range Interpretation [...] 0.00 K/mm3 0.0-0.05 N NRBC#) COMPREHENSIVE METABOLIC [id number] 00:13:00 Test Item Value Reference Range Interpretation [...] (test code = MG Index/DL The system Task Messenger HEMINDEX) generated this result transmit cipriano reference [...] to interpret this result as normal/abnormal . [id number] 00:13:00 Test Item Value Reference Range Interpretation Comments PHOSPHOROUS (test code = PHOS) 3.8 MG/DL 2.5-4.9 N [id number] 00:13:00 Test Item Value Reference Range Interpretation Comments MAGNESIUM (test code = MAG) 2.5 MG/DL 1.6-2.6 N [id number] 00:13:00 Test Item Value Reference Range Interpretation Comments TROPONIN-I 0.441 NG/ML 0.000-0.045 HH ON 08/04/20 AT 2356, B.LAB.MARTHA (test code = CALLED TO HARDIK HERNANDEZ) VANGIE . Th e report was confirmed [...] changes in trop onin levelscharacter istic of HI. COMPREHENSIVE METABOLIC [id number] 00:00:00 Test Item Value Reference Range Interpretation [...] (test code = MG Index/DL The system Task Messenger HEMINDEX) generated this result transmit cipriano reference [...] to interpret this result as normal/abnormal . [id number] 00:00:00 Test Item Value Reference Range Interpretation Comments PHOSPHOROUS (test code = PHOS) 3.8 MG/DL 2.5-4.9 N [id number] 00:00:00 Test Item Value Reference Range Interpretation Comments MAGNESIUM (test code = MAG) 2.5 MG/DL 1.6-2.6 N [id number] 00:00:00 Test Item Value Reference Range Interpretation [...] changes in trop onin levelscharacter istic of HI. B-TYPE NATRIURETIC [id number] 23:59:00 Test Item Value Reference Range Interpretation Comments B-TYPE NATRIURETIC PEPTIDE (test 163.50 PG/ML 0.00-100.00 H code = BNP) COMPREHENSIVE METABOLIC [id number] 23:57:00 Test Item Value Reference Range Interpretation [...] (test code = MG Index/DL The system Task Messenger HEMINDEX) generated this result transmit cipriano reference [...] to interpret this result as normal/abnormal . [id number] 23:57:00 Test Item Value Reference Range Interpretation Comments PHOSPHOROUS (test code = PHOS) 3.8 MG/DL 2.5-4.9 N [id number] 23:57:00 Test Item Value Reference Range Interpretation Comments MAGNESIUM (test code = MAG) 2.5 MG/DL 1.6-2.6 N [id number] 23:57:00 Test Item Value Reference Range Interpretation Comments TROPONIN-I 0.441 NG/ML 0.000-0.045 HH ON 08/04/20 AT 2356, B.LAB.AR (test code = CALLED TO HARDIK HERNANDEZ) VANGIE . Th e report was confirmed [...] changes in trop onin levelscharacter istic of HI. VENOUS BLOOD GAS [id number] 23:01:00 Test Item Value Reference Range Interpretation Comments VENOUS BLOOD GAS PH (test code 7.30 pH units 7.32-7.42 L = PHV) VENOUS BLOOD GAS [id number] 23:01:00 Test Item Value Reference Range Interpretation Comments VENOUS BLOOD GAS PCO2 (test code = 69 mmHg 41-51 H PCO2V) VENOUS BLOOD GAS [id number] 23:01:00 Test Item Value Reference Range Interpretation Comments VENOUS BLOOD GAS PO2 (test code = 40 mmHg 25-40 N PO2V) VBG [id number] 23:01:00 Test Item Value Reference Range Interpretation Comments VBG HCO3 (test code = HCO3V) 33.9 mmol/L 24-28 H VENOUS BLOOD GAS [id number] 23:01:00 Test Item Value Reference Range Interpretation Comments VENOUS BLOOD GAS SITE (test code Venous Site DESCRIPTION = SITEV) - XR CHEST 1 [id number] 22:33:00 [facility] CON[facility]EName: MARCELLE MEDINA : 1970 Sex: F FAX: Chuckie Cristobal MD [phone] [place]: St: REG Patient Name: MARCELLE MEDINA Unit No: [id number] EXAMS: CPT CODE: [id number] XR CHEST 1 V 22252 EXAM: - XR CHEST 1 V COMPARISON: None LOCATION: H57 HISTORY: 50 years-old Female with ett TECHNIQUE: Single AP view of the chest. FINDINGS: Endotracheal tube terminates 5.7 cm above the geovanny. Esophagogastric tube proceeds intothe stomach and beyond the drmjk-ys-fcku. There is cardiomegaly. The lungs are well aerated. No large pneumothorax or pleural effusion. Osseous structures and soft tissues demonstrate no acute findings. The visualized upper abdomen is unremarkable. IMPRESSION: 1. Endotracheal tube terminates 5.7 cm above the geovanny. 2. Esophagogastric tube proceeds into the stomach and beyond the toamn-me-nyjb. at 2233 Reported and signed by: Albaro Saab MD CC: Chuckie Mcnally MD Dictated Date/Time: 08/04/2020 (2232)Technologist: Toyin Jamil Transcribed Date/Time: 08/04/2020 (2232) By: [email or web address] Orig Print D/T: S: 08/04/2020 (2235) GALDINO Ribeiro NAME: MARCELLE MEDINA [address] [place] [address] PHYS: Chuckie Escobar [place], [place] [address] :1970 AGE: 50 SEX: F LOC: [place] PHONE #: [phone] EXAM DATE: 08/04/2020 STATUS: REG ER FAX #: [phone] RAD NO: DC Dt: PAGE 1 Signed ReportFL TIME OR (NON-REPORTABLE)2020-05-22 18:17:27These images do not require a Radiology diagnostic report[facility] ([facility]-REPORT[facility])2020-05-22 18:17:27These images do not require a Radiology diagnostic report.[facility] CHE[facility] 1 [id number] 20:09:34CHEST ONE VIEW HISTORY: ?Preop TECHNIQUE: ?AP view of the chest is obtained. COMPARISON: 01/18/2017 FINDINGS: Lungs are clear. Heart size and mediastinal silhouette arenormal. Calcified right hilar lymph nodes are seen. No pleural effusion or pneumothorax is seen. A hiatal hernia is present. CONCLUSIONS: No acute cardiopulmonary disease. [facility], Radiant Results Inft User - 05/21/2020 2:10 PM CSTCHEST ONE VIEWHISTORY: PreopTECHNIQUE: AP view of the chest is obtained.COMPARISON: 01/18/2017FINDINGS: Lungs are clear. Heart size and mediastinal silhouette arenormal. Calcified right hilar lymph nodes are seen.No pleural effusion or pneumothorax is seen.A hiatal hernia is present.CONCLUSIONS: No acute cardiopulmonary disease.[facility] 2020-03-14 16:03:00 Test Item Value Reference Range Interpretation Comments SURG (test code = SURG) --------RUN DATE: 03/14/20 [facility] - LAB PAGE 1 RUN TIME: 1603 Specimen Inquiry RUN USER: INTERFACE --------PATIENT: MARCELLE WEISS LOC: STEPHIE U #: [id number] AGE/SX: 50/F ROOM: RE03/13/20[facility] DR: Tyler Clemens MD : 72 BED: DIS: STATUS: [facility] TLOC: -------- SPEC #: [id number] RECD: 03/13/20 STATUS: LEILA RE #: [id number] RADHA: 03/13/[address] [facility] [address]: Tyler Clemens MD ENTERED: 03/13/20 SP TYPE: SURG OTHR DR: Adele York MD ORDERED: SURG PATH LVL 08/03 COPIES TO: Tyler Clemens MD [address] [place] [address] Adele York MD [address] [place] [address] HISTOLOGY: TISSUE ID BLK PCS MANOJ LEV PROCEDURE DISPOSITION ____ ___ ___ ___ SMALL INTESTINE A 1 2 GASTRIC ANTRUM B 1 2 STOMACH, NOS C 1 2 PROCEDURES: SURG PATH LVL 4 (03/13/20) TISSUES: A. SMALL INTESTINE, NOS - SMALL BOWEL BIOPSY B. GASTRIC ANTRUM - ANTRUM BIOPSY C. STOMACH, NOS - BODY BIOPSY CPT CODES CPT CODE(S): [id number] , , , , , , FINAL DIAGNOSIS A. Small intestine, biopsy: DUODENUM WITH UNREMARKABLE VILLI B. Stomach, antrum, biopsy: ACUTE GASTRITIS WITH SURFACE ULCERATION NEGATIVE FOR INTESTINAL METAPLASIA, DYSPLASIA, OR MALIGNANCY NEGATIVE FOR HELICOBACTER PYLORI ORGANISMS C. Stomach, body, biopsy: CONTINUED ON NEXT PAGE --------RUN DATE: 03/14/20 [facility] - [facility] PAGE 2 RUN TIME: 1603 Specimen Inquiry RUN USER: INTERFACE --------SPEC #: [id number] PATIENT: MARCELLE WEISS Adryan #[id number] (Continued) FINAL DIAGNOSIS (Continued) MILD CHRONIC GASTRITIS [...] all as C. ba/nr Grossing performed at [facility] Pathology, [facility], [address], [place], [place] [address]. Class A Regional Drivers: Nickolas Steel M.D. MICROSCOPIC DESCRIPTION A. Small [...] seen. Signed SIGNATURE ON FILE Raúl Espana Adryan 03/14/20 1603 -------- END OF REPORT COVID 19 INHOUSE [id number] 13:44:00 Test Item Value Reference Range Interpretation Comments COVID 19 INHOUSE AG NEGATIVE Negative Per manu facturer, (test code = negative result s should [id number]) be treated aspr esumptive and, if inconsi [...] symptoms co nsistent with COVID-19. CBC W/AUTO [id number] 13:13:00 Test Item Value Reference Range Interpretation [...] DIFF/SCN CRITERIA = MDIFF) Novel Coronavirus 2019 [id number] 21:08:00 Test Item Value Reference Range Interpretation Comments Novel Coronavirus 2019 Inhouse (test Negative Negative code = COVNONPUI) COMPREHENSIVE METABOLIC [id number] 09:36:00 Test Item Value Reference Range Interpretation [...] TOTAL (test code = ALKP) HCG SERUM [id number] 09:36:00 Test Item Value Reference Range Interpretation Comments HCG SERUM QUAL (test code = SERUM NEGATIVE NEGATIVE HCGQL) - XR CHEST 2 [id number] 09:35:00 FAX: Tiarra Velasco DPM [phone] [place]: St: PRE FAX: Adele Hernández MD [phone] Name: MARCELLE WEISS [facility] : 1970 Age/S: 49/F [address] [place] [address] Unit #: [id number] Loc: [place] [address] Phys: Tiarra Jurado DPM Acct: [id number] Dis Date: Status: PRE SDC PHONE #: [phone] Exam Date: 09/27/2019930 FAX #: [phone] Reason: PREOP- PAIN D/T ORTHOPEDIC IMPLANT EXAMS: CPT CODE: [id number] XR CHEST 2 V 66855 Two-view chest: HISTORY: Preoperative clearance for painful orthopedic implant. FINDINGS: Stable mild cardiomegaly compared with 05/07/2019. Development of areas of bibasilar subsegmental atelectasis. No pleural effusion or bony pathology IMPRESSION: Bibasilar s ubsegmental atelectasis SL: [id number] at 0935 Reported and signed by: Sammy Branham M.D. CC: Tiarra Jurado DPM; Adele York MD Technologist: Diamond Castro, RT(R) Trnscrd Date/Time/By: 09/27/2019 (0935) : By: SomETG Orig Print D/T: S: 09/27/2019 (8746) PAGE 1 Signed ReportCOMPREHENSIVE METABOLIC [id number] 09:28:00 Test Item Value Reference Range Interpretation [...] IUnit/L 20-125 code = ALKP) HCG SERUM [id number] 09:28:00 Test Item Value Reference Range Interpretation Comments HCG SERUM QUAL (test code = SERUM NEGATIVE NEGATIVE HCGQL) CBC W/AUTO [id number] 09:21:00 Test Item Value Reference Range Interpretation [...] DIFF REQUIRED (test NO code = MDIFF) SARS-COV2/RT-PCR ([facility])2019-09-23 11:49:00 Test Item Value Reference Range Interpretation Comments SARS-COV2/RT-PCR (test Not Detected Not Detected, Negative code = 6496512) SARS-COV-[address] [facility] (test code = 0233482) Negative results do not preclude SARS-CoV-2 infection and should not be used as the sole basis for patient management decisions. Negative results must be combined with clinical observations, patient history, and epidemiological information. A false negative result may occur if a specimen is improperly collected, transported or handled.The limit of detection for this assay is 250 copies/mL.This SARS CoV-2 test is a rapid, real-time RT-PCR test intended for the qualitative detection of nucleic acid from SARS-CoV-2 in a nasopharyngeal swab specimen collected from individuals suspected of COVID-19 by their healthcare provider.This test has not been Food and Drug Administration (FDA) cleared or approved and has been authorized by FDA under an Emergency Use Authorization (EUA). This EUA will be effective until the declaration that circumstances exist justifying the authorization of the emergency use of in vitro diagnostic tests for detection and/or diagnosis of COVID-19 is terminated under Section 564(b)(2) of the Act or the EUA is revoked under Section 564(g) of the Act.Fact Sheet for Healthcare Pro viders:https://www.OpenExchange/Documents/Xpert%20Xpress%20SARS%20CoV-2/Fact%20Sh eets/302-3802%59TKOH-HVD-1%20HEALTHCARE%20PROVIDERS%20FACT%20SHEET.pdfFact Sheet for Healthcare Patients:https://www.Celotor/Documents/Xpert%20Xpress%20SARS%20CoV-2/Fact%20Sheets/302-3801%20SARS-COV -2%20PATIENT%20FACT%20SHEET.pdfPerforming Laboratory:[facility], [place] [address]HRDDG METABOLIC [id number] 09:50:00 Test Item Value Reference Range Interpretation [...] = CA) 9.5 MG/DL 8.5-10.1 N VANCOMYCIN [id number] 21:06:00 Test Item Value Reference Range Interpretation Comments VANCOMYCIN TROUGH (test code = 19.1 mcG/ML 10-20 N VANCT) GLUCOSE BEDSIDE [id number] 20:17:00 Test Item Value Reference Range Interpretation Comments GLUCOSE BEDSIDE TESTING (test code = 84 mg/dL 70-110 N GLUBED) - NM BONE 3 [id number] 19:51:00 FAX: Dwight Parrish MD Cam[place]: PM St: ADM FAX: Bettye Alves MD [phone] Name: MARCELLE WEISS [facility] : 1970 Age/S: 49/F [address] [facility] Unit #: [id number] Loc: [address] [address] Phys: Bettye Mullins MD Acct: [id number] Dis Date: Status: ADM IN PHONE #: [phone] Exam Date: 05/09/2019 1533 FAX #: Reason: OM ANDHARDWARE INFECTION LEFT ANKLE EXAMS: CPT: [id number] NM BONE 3 PHASE 16532 EXAM: - NM BONE 3 PHASE HISTORY: [...] Technologist: DWAYNE Amado Transcribed Date/Time/By: 05/09/2019 (1950) :[email or web address] Orig Print D/T: S: 05/09/2019 (1953) PAGE 1 Signed ReportBASIC METABOLIC [id number] 14:15:00 Test Item Value Reference Range Interpretation [...] <2 ng/mL are obtai emily. CBC W/AUTO [id number] 07:54:00 Test Item Value Reference Range Interpretation [...] code = NO DIFF/SCN CRITERIA MDIFF) SED [id number] 07:54:00 Test Item Value Reference Range Interpretation Comments SED RATE (test code = SEDW) 19 mm/hr 0-20 N BASIC METABOLIC [id number] 06:17:00 Test Item Value Reference Range Interpretation [...] (test code = ng/ml PROCAL) CBC W/AUTO [id number] 06:08:00 Test Item Value Reference Range Interpretation [...] code = NO DIFF/SCN CRITERIA MDIFF) SED [id number] 06:08:00 Test Item Value Reference Range Interpretation Comments SED RATE (test code = SEDW) mm/hr 0-20 [id number] 02:57:00 Test Item Value Reference Range Interpretation [...] may basilio yby method. Completed by Nursing: [id number] 23:57:00 Test Item Value Reference Range Interpretation [...] by Nursing: OSVALDO RFLX MICR CULT IF [id number] 18:41:00 Test Item Value Reference Range Interpretation [...] for culture: Dysuria/FrequencyUA RFLX MICR CULT IF [id number] 18:41:00 Test Item Value Reference Range Interpretation [...] CLEAN CATCHIndication for culture: Dysuria/Frequency COMPREHENSIVE METABOLIC [id number] 18:23:00 Test Item Value Reference Range Interpretation [...] TOTAL (test code = ALKP) CBC W/AUTO [id number] 18:03:00 Test Item Value Reference Range Interpretation [...] = NO DIFF/SCN CRITERIA MDIFF) LACTIC ACID [id number] 17:58:00 Test Item Value Reference Range Interpretation Comments LACTIC ACID POC (test code = 1.93 MMOL/L 0.90-1.70 H LACTP) - XR ANKLE 3+V [id number] 17:50:00 Name: ABHISHEKMARCELLE [facility] : 1970 Age/S: 49 / F [address] [address] Unit #: [id number] Loc: [place] [address] Phys: Aletha Valerio MD Acct: [id number] Dis Date: Status: REG ER PHONE #: [phone] Exam Date: 05/07/2019 174 FAX #: Reason: ankle EXAMS: CPT: [id number] XR ANKLE 3+V [place] [address] Fluoro Time: DAP (Gy m2): Air Kerma [...] [place] : 1970 Age/S: 49 / F [address] [address] Unit #: [id number] Loc: [place] [address] Phys: Aletha Valerio MD Acct: [id number] Dis Date: Status: REG ER PHONE #: [phone] Exam Date: 05/07/2019 1740 FAX #: Reason:ankle EXAMS: CPT: [id number] XR ANKLE 3+[place] [address] Fluoro Time: DAP (Gy m2): Air Kerma (mGy): <Continued> Technologist: RT Charles(R)(MR) Trnscb Date/Time: 05/07/2019 (1749) 16 Orig Print D/T: S: 05/07/2019 (1753) PAGE 2 Signed Report- XR CHEST 1 [id number] 17:40:00 Name: MARCELLE WEISS [facility] : 1970 Age/S: 49 / F [address] [address] Unit #: [id number] Loc: [place] [address] Phys: Aletha Valerio MD Acct: [id number] Dis Date: Status: REG ER PHONE #: [phone] Exam Date: 05/07/20191709 FAX #: Reason: infection EXAMS: CPT: [id number] XR CHEST 1 V 45206 Fluoro Time: DAP (Gy m2): Air Kerma [...] [place] : 1970 Age/S: 49 / F [address] [address] Unit #: [id number] Loc: [place] [address] Phys:Aletha Valerio MD Acct: [id number] Dis Date: Status: REG ER PHONE #: [phone] Exam Date: 05/07/20191709 FAX #: Reason: infection EXAMS: CPT: [id number] XR CHEST1 V 85768 Fluoro Time: DAP (Gy m2): Air Kerma (mGy): <Continued> Technologist: Miguel Enamorado RT(R)(MR) Trnscb Date/Time: 05/07/2019 (174) 16 Orig Print D/T: S: 05/07/2019 (579) PAGE 2 Signed ReportPROCALCITONIN (PCT)2019-04-27 03:09:00 Test [...] concentrations <2 ng/mL are obtai emily. SED [id number] 13:10:00 Test Item Value Reference Range Interpretation Comments SED RATE (test code = SEDW) 30 mm/hr 0-20 H [id number] 02:18:00 Test Item Value Reference Range Interpretation [...] may basilio yby method. Completed by Nursing: [id number] 23:37:00 Test Item Value Reference Range Interpretation [...] yby method. Completed by Nursing: NOCHEMISTRY 8 [id number] 22:03:00 Test Item Value Reference Range Interpretation [...] 58-135 N code = GFRBED) CHEMISTRY 8 [id number] 22:03:00 Test Item Value Reference Range Interpretation [...] code = GFRBED) - CT CHEST W/O [id number] 21:11:00 Name: ABHISHEKMARCELLE [facility] : 1970 Age/S: 49 / F [address] [address] Unit #: [id number] Loc: [place] [address] Phys: Uday Maya MD Acct: [id number] Dis Date: Status: ADM IN PHONE #: [phone] Exam Date: 04/25/20192042 FAX #: Reason: lung mass EXAMS: CPT: [id number] CT CHEST W/O CONTRAST 07047 Exam: CT thorax without contrast. Location: H [...] [place] : 1970 Age/S: 49 / F [address] [address] Unit #: [id number] Loc: [place] [address] Phys: Uday Maya MD Acct: [id number] Dis Date: Status: ADM IN PHONE #: [phone] Exam Date: 04/25/20192042 FAX #: Reason: lung mass EXAMS: CPT: [id number] CT CHEST W/O CONTRAST [address]78[address] <Continued> CC: Uday Maya MD; Aletha Valerio MD; Abilio Maldonado MD; Lisette HARGROVE Technologist:Robert Townsend, RT(R)(CT) CTDI: DLP: Trnscb Date/Time: 04/25/2019 (2110) [email or web address] Orig Print D/T: S: 04/25/2019 (2113) PAGE [...] TOTAL (test code = ALKP) CBC W/AUTO [id number] 20:01:00 Test Item Value Reference Range Interpretation [...] = NO DIFF/SCN CRITERIA MDIFF) TROPONIN I [id number] 19:58:00 Test Item Value Reference Range Interpretation Comments TROPONIN I RAPID 0.00 ng/mL 0.00-0.08 N - The use o f serial (test code = sampling and te sting TROPIRAP) protocol is a recommended pra ctice- An elevated tro ponin level alone is often not sufficient for diagnosis of my ocardial infarction. LACTIC ACID [id number] 19:58:00 Test Item Value Reference Range Interpretation Comments LACTIC ACID POC (test code = 1.43 MMOL/L 0.90-1.70 N LACTP) - XR CHEST 1 [id number] 19:42:00 Name: MARCELLE WEISS [facility] : 1970 Age/S: 49 / F [address] [address] Unit #: [id number] Loc: [place] [address] Phys: Aletha Valerio MD Acct: [id number] Dis Date: Status: REG ER PHONE #: [phone] Exam Date: 04/25/2019 1920 FAX #: Reason: Suspected Sepsis EXAMS: CPT: [id number] XR CHEST 1 V 20271 Fluoro Time: DAP (Gy m2): Air Kerma [...] [place] : 1970 Age/S: 49 / F [address] [address] Unit #: [id number] Loc: [place] [address] Phys: Aletha Valerio MD Acct: [id number] Dis Date: Status: REG ER PHONE #: [phone] Exam Date: 04/25/20191919 FAX #: Reason: Suspected Sepsis E XAMS: CPT: [id number] XR CHEST 1 V 00351 Fluoro Time: DAP (Gy m2): Air Kerma (mGy): <Continued> Technologist: David Cole RT(R)(CT) TrnscbDate/Time: 04/25/2019 (1941) t.[email or web address].GS29 Orig Print D/T: S: 04/25/2019 (1945) PAGE 2 Signed ReportBASIC METABOLIC [id number] 06:51:00 Test Item Value Reference Range Interpretation [...] CA) 8.8 MG/DL 8.5-10.1 N CBC W/AUTO [id number] 06:27:00 Test Item Value Reference Range Interpretation [...] = NO DIFF/SCN CRITERIA MDIFF) BASIC METABOLIC [id number] 18:56:00 Test Item Value Reference Range Interpretation [...] CA) 9.0 MG/DL 8.5-10.1 N BASIC METABOLIC [id number] 18:53:00 Test Item Value Reference Range Interpretation [...] CA) 9.0 MG/DL 8.5-10.1 N CBC W/AUTO [id number] 18:52:00 Test Item Value Reference Range Interpretation [...] = NO DIFF/SCN CRITERIA MDIFF) CBC W/AUTO [id number] 07:16:00 Test Item Value Reference Range Interpretation [...] = NO DIFF/SCN CRITERIA MDIFF) BASIC METABOLIC [id number] 07:11:00 Test Item Value Reference Range Interpretation [...] CA) 8.7 MG/DL 8.5-10.1 N BASIC METABOLIC [id number] 11:01:00 Test Item Value Reference Range Interpretation [...] CA) 8.6 MG/DL 8.5-10.1 N CBC W/AUTO [id number] 10:24:00 Test Item Value Reference Range Interpretation [...] = NO DIFF/SCN CRITERIA MDIFF) BASIC METABOLIC [id number] 05:56:00 Test Item Value Reference Range Interpretation [...] CA) 8.8 MG/DL 8.5-10.1 N CBC W/AUTO [id number] 05:51:00 Test Item Value Reference Range Interpretation [...] = NO DIFF/SCN CRITERIA MDIFF) CBC W/AUTO [id number] 06:08:00 Test Item Value Reference Range Interpretation [...] = NO DIFF/SCN CRITERIA MDIFF) BASIC METABOLIC [id number] 05:55:00 Test Item Value Reference Range Interpretation [...] = CA) 9.0 MG/DL 8.5-10.1 N VANCOMYCIN [id number] 14:35:00 Test Item Value Reference Range Interpretation Comments VANCOMYCIN TROUGH (test code = 17.4 mcG/ML 10-20 N VANCT) BASIC METABOLIC [id number] 06:49:00 Test Item Value Reference Range Interpretation [...] CA) 8.5 MG/DL 8.5-10.1 N CBC W/AUTO [id number] 06:44:00 Test Item Value Reference Range Interpretation [...] NO DIFF/SCN CRITERIA MDIFF) - US GUIDANCE [facility] [id number] 13:25:00 Name: ABHISHEKMARCELLE [facility] : 1970 Age/S: 49 / F [address] [address] Unit #: [id number] Loc: [place] [address] Phys: Theodore Gonzalez MD Acct: [id number] Dis Date: Status: ADM IN PHONE #: [phone] Exam Date: 03/29/2019 1550 FAX #: Reason: PICC LINE PLACEMENT EXAMS: CPT: [id number] US GUIDANCE VASC ACCESS 62746 Examination: PICC line insertion Location code: S17 Comparison: None shadow graph weight operator: Tamra Can Closing Machine Operator: None Sedation: None Anesthesia: 1% lidocaine subcutaneous [...] [facility] : 1970 Age/S: 49 /F [address] [facility] Unit #: [id number] Loc: [place] [address] Phys: Theodore Gonzalez MD Acct: [id number] Dis Date: Status: ADM IN PHONE #: [phone] Exam Date: 03/29/2019 1550 FAX #: Reason: PICC LINE PLACEMENT EXAMS: CPT: [id number] US GUIDANCE VASC ACCESS 50316 <Continued> Impression: Successful ultrasound and fluoroscopic guided right basilic PICC line placement. at 1325 Reported and signed by: Camacho Barboza M.D. CC: Theodore Gonzalez MD; Adele York MD Technologist: Esthela Krishnamurthy, RT(R),RDMS(AB) Trnscb Date/Time: 03/29/2019 (1325) tJAMEE.JH12 PAGE 2 Signed Report Name: MARCELLE WEISS [place] : 1970 Age/S: 49 / F [address] [address] Unit #: [id number] Loc: [place] [address] Phys: Theodore Gonzalez MD Acct: [id number] Dis Date: Status: ADM IN PHONE #: [phone] Exam Date: 03/29/2019 1550 FAX #: Reason: PICC LINE PLACEMENT EXAMS: CPT: [id number] US GUIDANCE VASC ACCESS 09423 <Continued> Orig Print D/T: S: 03/29/2019 (2020) Probe: PAGE 3 Signed Report- FLUORO GUID CTRL ACC [id number] 13:25:00 Name: [facility] [place] : 1970 Age/S: 49 / F [address] [address] Unit #: [id number] Loc: [place] [address] Phys: Bettye Mullins MD Acct: [id number] Dis Date: Status: ADM IN PHONE #: [phone] Exam Date: 03/29/2019 1301 FAX #: Reason: prolonged antibx EXAMS: CPT: [id number] FLUORO GUID CTRL ACC DEV 32078 Fluoro Time: DAP (Gy m2): Air Kerma (mGy): Examination: PICC line insertion Location code: S17 Comparison: None shadow graph weight operator: Tamra Can Closing Machine Operator: None Sedation: None Anesthesia: 1% lidocaine subcutaneous [...] [facility] : 1970 Age/S: 49 / F [address] [facility] Unit #: [id number] Loc: [place] [address] Phys: Bettye Mullins MD Acct: [id number] DisDate: Status: ADM IN PHONE #: [phone] Exam Date: 03/29/2019 1301 FAX #: Reason: prolonged antibx EXAMS: CPT: [id number] GUID CTRL ACC DEV 36869 Fluoro Time: DAP (Gy m2): Air Kerma (mGy): <Continued> Successful ultrasound and fluoroscopic guided right basilic PICC line placement. at 1325 Reported and signed by: Camacho Barboza M.D. CC: Theodore Gonzalez MD; Bettye Mullins MD; Adele York MD PAGE 2 Signed Report Name:MARCELLE WEISS [facility] : 1970 Age/S: 49 / F [address] [address] Unit #: [id number] Loc: [place] [address] Phys: Bettye Mullins MD Acct: [id number] Dis Date: Status: ADM IN PHONE #: [phone] Exam Date: 03/29/2019 1301 FAX #: Reason: prolonged antibx EXAMS: CPT: [id number] FLUORO GUID CTRL ACC DEV 00837 Fluoro Time: DAP(Gy m2): Air Kerma (mGy): <Continued> Technologist: Ashlyn Maldonado, RT(R)(MR) Trnscb Date/Time: 03/29/2019 (2402) SomJH12 Orig Print D/T: S: 03/29/2019 (7584) PAGE 3 Signed ReportVANCOMYCIN [id number] 00:16:00 Test Item Value Reference Range Interpretation Comments VANCOMYCIN TROUGH (test code = 20.7 mcG/ML 10-20 H VANCT) BASIC METABOLIC [id number] 09:06:00 Test Item Value Reference Range Interpretation [...] CA) 8.6 MG/DL 8.5-10.1 N CBC W/AUTO [id number] 08:47:00 Test Item Value Reference Range Interpretation [...] CRITERIA MDIFF) Comment: postop- XR FLUOROSCOPY 0-60 [id number] 15:46:00 Name: ABHISHEKMARCELLE [facility] : 1970 Age/S: 49 / F [address] [address] Unit #: [id number] Loc: [place] [address] Phys: Abilio Maldonado MD Acct: [id number] Dis Date: Status: CAN [facility] PHONE #: [phone] Exam Date: 03/27/2019 0940 FAX #: Reason: LEFT ANKLE I D WITH ANTIBIOTIC BEADS EXAMS: CPT: [id number] XR FLUOROSCOPY 0-60 MIN 25317 Fluoro Time: 4 SEC DAP (Gy m2): [...] [place] : 1970 Age/S: 49 / F [address] [address] Unit #: [id number] Loc: [place] [address] Phys: Abilio Maldonado MD Acct: [id number] Dis Date: Status: CAN [facility] PHONE #: [phone] Exam Date: 03/27/2019 0940 FAX #: Reason: LEFT ANKLE I D WITH ANTIBIOTIC BEADS EXAMS: CPT: [id number] XR FLUOROSCOPY 0-60 MIN 67063 Fluoro Time: 4 SEC DAP (Gy m2): Air Kerma (mGy): <Continued> Technologist: Lisa Machuca RT(R) Trnscb Date/Time: 03/27/2019 (1546) SomJH12 Orig Print D/T: S: 03/27/2019 (7650) PAGE 2 Signed ReportUR HCG [id number] 06:57:00 Test Item Value Reference Range Interpretation Comments UR HCG QUAL (test code = HCGQLU) NEGATIVE NEGATIVE UA RFLX MICR CULT IF [id number] 06:54:00 Test Item Value Reference Range Interpretation [...] culture: Flank PainUA RFLX MICR CULT IF [id number] 06:54:00 Test Item Value Reference Range Interpretation [...] CLEAN CATCHIndication for culture: Flank PainBASIC METABOLIC [id number] 08:09:00 Test Item Value Reference Range Interpretation [...] CA) 8.9 MG/DL 8.5-10.1 N VITAMIN D [id number] 08:09:00 Test Item Value Reference Range Interpretation Comments VITAMIN D 33.2 ng/mL 30.0-100.0 Vitamin D defic iency has 25-HYDROXY (test been define d by the code = VITD25) [facility] edicine and an Endocrine So ciety practice guidel ine as alevel of serum 25-OH vitamin D less than 20 ng/mL (1,2).The Endocrine Society went on to further define vitamin Dinsufficiency as a level between 21 and 29 ng/mL (2).1. IOM (Ins titute of Medicine). 2010 . Dietary reference int akes for calcium and D. [place]: The [employer] .2. Caitlin MF, [place], [place] i ROLLINS, et al. Evaluatio n, treatment, and prevention of vitamin D deficiency: an Endocrine Society clinica l practice guideline. EM. 2010; 96(7):1911-30.P erformed At: [facility] [address] [place], [place] [address]Jytnd Abilio Rosales MD Ph:[phone] CBC W/AUTO [id number] 13:29:00 Test Item Value Reference Range Interpretation [...] code = NO DIFF/SCN CRITERIA MDIFF) SED [id number] 13:29:00 Test Item Value Reference Range Interpretation Comments SED RATE (test code = SEDW) 10 mm/hr 0-20 N URINALYSIS [id number] 13:12:00 Test Item Value Reference Range Interpretation [...] LEUU) Urine Specimen Type: Clean CatchC REACTIVE [id number] 12:47:00 Test Item Value Reference Range Interpretation Comments C REACTIVE PROTEIN (test code = 1.260 MG/DL 0.000-0.3 H CRP) BASIC METABOLIC [id number] 12:46:00 Test Item Value Reference Range Interpretation [...] CA) 8.9 MG/DL 8.5-10.1 N VITAMIN D [id number] 12:46:00 Test Item Value Reference Range Interpretation Comments VITAMIN D 25-HYDROXY (test code = VITD25) PROTHROMBIN [id number] 12:33:00 Test Item Value Reference Range Interpretation Comments PT PATIENT (test code = PTP) 11.4 SECONDS 9.3-12.9 N INTERNATIONAL NORMAL RATIO 0.99 INR Unit 0.8-1.2 N (test code = INR) THROMBOPLASTIN TIME [id number] 12:33:00 Test Item Value Reference Range Interpretation Comments THROMBOPLASTIN TIME PARTIAL 29.0 SECONDS 26-35 N (test code = PTT) CBC W/AUTO [id number] 12:32:00 Test Item Value Reference Range Interpretation [...] code = NO DIFF/SCN CRITERIA MDIFF) SED [id number] 12:32:00 Test Item Value Reference Range Interpretation Comments SED RATE (test code = SEDW) mm/hr 0-20 - XR CHEST 1 [id number] 12:00:00 Name: MARCELLE WEISS [place] : 1970 Age/S: 49 / F [address] [address] Unit #: [id number] Loc: [place] [address] Phys: Abilio Maldonado MD Acct: [id number] Dis Date: Status: PRE [facility] PHONE #: [phone] Exam Date: 03/03/2019 1152 FAX #: Reason: PRE OP EXAMS: CPT: [id number] XR CHEST 1 V 85295 Fluoro Time: DAP (Gy m2): Air Kerma [...] PAGE 1 Signed Report Name: MARCELLE WEISS [place] : 1970 Age/S: 49 / F [address] [facility] Unit #: [id number] Loc: [place] [address] Phys: Abilio Maldonado MD Acct: [id number] Dis Date: Status: PRE [facility] PHONE #: [phone] Exam Date: 03/03/2019 1159 FAX #: Reason: PRE OP EXAMS: CPT: [id number] XR CHEST 1 V 23954 Fluoro Time: DAP (Gy m2): Air Kerma (mGy): <Continued> Technologist: Kevin Herrera, RT(R)(CT); Lisa Machuca, RT(R) Trnscb Date/Time: 03/03/2019 (1200) [id number] Orig Print D/T: S: 03/03/2019 (1206) PAGE 2 Signed Report
== END 2021-03-07 21:40 | disposition home or self-care (01) ==
LOC: ER 18:37
DX: R60.1 Generalized edema (principal); Z88.0 Allergy status to penicillin; Z88.5 Allergy status to narcotic agent; Z88.6 Allergy status to analgesic agent; Z88.8 Allergy status to other drugs, medicaments and biological substances; Z91.048 Other nonmedicinal substance allergy status
CPT/HCPCS: 85025; 80048; 36415; 82550; 85610; 80076; 85730; 81003; 84484; 83880; 71045; 96375; 96374; 99284; J2175